=== PATIENT | female | born 1960 | race Caucasian/White ===

== ENCOUNTER 2017-05-25 13:20 | Outpatient (RCR) | payer OTHER, SELFPAY ==
--- NOTE | 2017-05-25 13:23 | RAD_ITS ---
STUDY: X-RAY CHEST REASON FOR EXAM: Female, 56 years old. Cryptogenic organizing pneumonia. TECHNIQUE: PA and lateral views of the chest. COMPARISON: Comparison is made with prior study dated May 15, 2017. FINDINGS: The lungs are clear and expanded. Scattered calcified granulomas. There is no demonstrated pleural abnormality. Normal size heart. Calcified bilateral hilar lymph nodes. Normal visualized pulmonary arteries. Normal visualized aortic arch and descending thoracic aorta. There are diffuse degenerative changes of the visualized thoracic spine. Normal visualized ribs, clavicles, and shoulders. There is no demonstrated abnormality of the visualized soft tissue structures of the upper abdomen. RAD/Chest PA and Lateral IMPRESSION: No acute abnormality is seen. Electronically Signed: Aguilar Joaquin MD at 19:35 EST Tel [phone], Service support ,
[2017-05-25 15:56] LABS: Hematocrit 43.2 % (37-47); Mean Corp Hgb Conc 30.1 g/gl (32-36); Mean Corpuscular Hgb 27.3 pg (27.0-32.0); Mean Corpuscular Volume 90.6 fL (81-99); Mean Platelet Vol. 11.1 fl (6.2-12.0); Platelet Count 307 K/mm3 (150-450); RBC Distribution Width CV 16.1 % (11.6-14.6); RBC Distribution Width SD 52.5 fl (35.1-43.9); Red Blood Count 4.77 M/mm3 (4.2-5.4); White Blood Count 9.5 K/mm3 (4.4-11.0)
[2017-05-25 16:02] LABS: Scan Indicated on CBC? Y/N NO
[2017-05-25 16:19] LABS: AST(SGOT) 12 U/L (15-37); Alanine Aminotransfer ALT/SGPT 29 U/L (12-78); Albumin, Serum 3.9 g/dL (3.4-5.0); Alkaline Phosphatase 51 U/L (45-117); Globulin 3.6 g/dL (2.2-4.2); Protein, Total 7.5 g/dL (6.4-8.2)
== END 2017-05-25 15:00 | disposition home or self-care (01) ==
LOC: MTLAB 13:20
PROVIDERS: Family Provider Internal Medicine; PCP Internal Medicine; Visit Provider Internal Medicine Pulmonary Disease
DX: J84.116 Cryptogenic organizing pneumonia (principal); M06.9 Rheumatoid arthritis, unspecified
CPT/HCPCS: 36415; 71046; 80076; 85027

== ENCOUNTER 2017-07-31 13:20 | Outpatient (RCR) | payer OTHER, SELFPAY ==
[2017-07-16 15:52] LABS: Hematocrit 41.9 % (37-47); Hemoglobin 12.9 g/dl (12.0-15.0); Mean Corp Hgb Conc 30.8 g/gl (32-36); Mean Corpuscular Hgb 27.3 pg (27.0-32.0); Mean Corpuscular Volume 88.8 fL (81-99); Mean Platelet Vol. 10.7 fl (6.2-12.0); Platelet Count 351 K/mm3 (150-450); RBC Distribution Width CV 16.8 % (11.6-14.6); Red Blood Count 4.72 M/mm3 (4.2-5.4); White Blood Count 11.5 K/mm3 (4.4-11.0)
[2017-07-16 16:02] LABS: Scan Indicated on CBC? Y/N NO
[2017-07-16 16:21] LABS: AST(SGOT) 15 U/L (15-37); Alanine Aminotransfer ALT/SGPT 33 U/L (13-56); Albumin, Serum 3.8 g/dL (3.2-5.0); Alkaline Phosphatase 59 U/L (45-117); Bilirubin, Direct 0.09 mg/dL (0.00-0.30); Globulin 3.7 g/dL (2.2-4.2); Protein, Total 7.5 g/dL (6.4-8.2)
[2017-07-31 14:28] LABS: Hematocrit 38.4 % (37-47); Hemoglobin 12.1 g/dl (12.0-15.0); Mean Corp Hgb Conc 31.5 g/gl (32-36); Mean Corpuscular Hgb 27.9 pg (27.0-32.0); Mean Corpuscular Volume 88.5 fL (81-99); Mean Platelet Vol. 10.4 fl (6.2-12.0); Platelet Count 366 K/mm3 (150-450); RBC Distribution Width CV 16.5 % (11.6-14.6); RBC Distribution Width SD 52.4 fl (35.1-43.9); Red Blood Count 4.34 M/mm3 (4.2-5.4); White Blood Count 7.6 K/mm3 (4.4-11.0)
[2017-07-31 14:29] LABS: Scan Indicated on CBC? Y/N NO
[2017-07-31 14:42] LABS: AST(SGOT) 31 U/L (15-37); Alanine Aminotransfer ALT/SGPT 38 U/L (13-56); Albumin, Serum 3.7 g/dL (3.2-5.0); Alkaline Phosphatase 53 U/L (45-117); Bilirubin, Direct 0.12 mg/dL (0.00-0.30); Globulin 3.2 g/dL (2.2-4.2); Protein, Total 6.9 g/dL (6.4-8.2)
== END 2017-07-31 14:00 | disposition home or self-care (01) ==
LOC: MTLAB 13:20
PROVIDERS: Family Provider Internal Medicine; PCP Internal Medicine; Visit Provider Internal Medicine Pulmonary Disease
DX: J84.116 Cryptogenic organizing pneumonia (principal); Z79.899 Other long term (current) drug therapy
CPT/HCPCS: 36415; 80076; 85027

== ENCOUNTER → 2017-08-10 13:55 | Outpatient (CLI) | payer OTHER, SELFPAY ==
[2017-08-10 16:04] LABS: Erythrocyte Sedimentation Rate 15 mm/hr (0-30)
[2017-08-10 16:09] LABS: Hematocrit 39.6 % (37-47); Hemoglobin 12.3 g/dl (12.0-15.0); Mean Corp Hgb Conc 31.1 g/gl (32-36); Mean Corpuscular Hgb 27.4 pg (27.0-32.0); Mean Corpuscular Volume 88.2 fL (81-99); Mean Platelet Vol. 10.4 fl (6.2-12.0); Platelet Count 472 K/mm3 (150-450); RBC Distribution Width SD 51.5 fl (35.1-43.9); Red Blood Count 4.49 M/mm3 (4.2-5.4); White Blood Count 9.1 K/mm3 (4.4-11.0)
[2017-08-10 16:49] LABS: Scan Indicated on CBC? Y/N NO
== END ==
PROVIDERS: Family Provider Internal Medicine; PCP Internal Medicine; Visit Provider Internal Medicine Pulmonary Disease
DX: J84.111 Idiopathic interstitial pneumonia, not otherwise specified (principal); Z79.899 Other long term (current) drug therapy
CPT/HCPCS: 36415; 85027; 85652

== ENCOUNTER → 2017-08-12 15:07 | Outpatient (CLI) | payer OTHER, SELFPAY ==
[2017-08-12 18:11] LABS: AST(SGOT) 22 U/L (15-37); Alanine Aminotransfer ALT/SGPT 49 U/L (13-56); Alkaline Phosphatase 53 U/L (45-117); Bilirubin, Direct 0.07 mg/dL (0.00-0.30); Globulin 3.3 g/dL (2.2-4.2); Protein, Total 7.3 g/dL (6.4-8.2)
== END ==
PROVIDERS: Family Provider Internal Medicine; PCP Internal Medicine; Visit Provider Internal Medicine Pulmonary Disease
DX: J18.9 Pneumonia, unspecified organism (principal); Z79.899 Other long term (current) drug therapy
CPT/HCPCS: 80076

== ENCOUNTER → 2017-08-26 14:00 | Outpatient (CLI) | payer OTHER, SELFPAY ==
[2017-08-26 15:26] LABS: Estradiol < 11.0 pg/mL
[2017-08-26 15:31] LABS: Progesterone Level 0.47 ng/mL (See Comment)
[2017-09-01 14:15] LABS: HPV Reflexed? NOT INDICATED
== END ==
PROVIDERS: Visit Provider Obstetrics & Gynecology
DX: Z12.4 Encounter for screening for malignant neoplasm of cervix (principal); N95.1 Menopausal and female climacteric states
CPT/HCPCS: 82670; 84144; 88175; G0145

== ENCOUNTER → 2017-08-27 15:57 | Outpatient (CLI) | payer OTHER, SELFPAY ==
--- NOTE | 2017-08-27 15:59 | CT_ITS ---
STUDY: CT TEMPORAL BONES WITHOUT CONTRAST REASON FOR EXAM: Female, 56 years old. HEARING LOSS LEFT SIDE RADIATION DOSAGE (If Supplied By Facility): CTDIvol = ( 82.28 ) mGy, DLP = ( 847.92 ) mGycm TECHNIQUE: The patient was scanned in a multi detector CT scanner. High resolution transaxial imaging was performed without the administration of intravenous contrast material. Sagittal and coronal images were reconstructed. Individualized dose optimization techniques were used for this CT. COMPARISON: None. FINDINGS: RIGHT TEMPORAL BONE Normal right external auditory canal. Normal malleus, incus and stapedius. Normal malleoincudal and incudostapedial articulations. Normal epitympanum, mesotympanum, and hypotympanum. Normal right posterior, superior and lateral semicircular canals. Normal right vestibule and cochlea. Normal tympanic segment of the facial nerve. Normal Korner's septum, tegmen tympani, arcuate eminence and aditus ad antrum. Normal right mastoid air cells. Normal right petrous apex. Normal right petrous carotid artery. Normal right jugular fossa. Normal right internal auditory canal. Normal right vestibular and cochlear aqueducts. LEFT TEMPORAL BONE Normal left external auditory canal. Normal malleus, incus and stapedius. Normal malleoincudal and incudostapedial articulations. Normal epitympanum, mesotympanum, and hypotympanum. Normal left posterior, superior and lateral semicircular canals. Normal left vestibule and cochlea. Normal tympanic segment of the facial nerve. Normal Korner's septum, tegmen tympani, arcuate eminence and aditus ad antrum. Normal left mastoid air cells. Normal left petrous apex. Normal left petrous carotid artery. Normal left jugular fossa. Normal left internal auditory canal. Normal left vestibular and cochlear aqueducts. CT/Orb Sella Post Fossa Ear w/o IMPRESSION: Normal CT examination of the bilateral temporal bones. Electronically Signed: Nir Dudley MD at 22:42 EDT , Service support ,
== END ==
PROVIDERS: Family Provider Internal Medicine; PCP Internal Medicine; Visit Provider Otolaryngology
DX: H91.92 Unspecified hearing loss, left ear (principal)
CPT/HCPCS: 70480

== ENCOUNTER → 2017-09-10 16:49 | Outpatient (CLI) | payer OTHER, SELFPAY ==
[2017-09-10 18:30] LABS: AST(SGOT) 22 U/L (15-37); Alanine Aminotransfer ALT/SGPT 49 U/L (13-56); Albumin, Serum 3.9 g/dL (3.2-5.0); Alkaline Phosphatase 58 U/L (45-117); Bilirubin, Direct 0.09 mg/dL (0.00-0.30); Globulin 3.4 g/dL (2.2-4.2); Protein, Total 7.3 g/dL (6.4-8.2)
[2017-09-10 18:31] LABS: Hematocrit 37.8 % (37-47); Hemoglobin 11.4 g/dl (12.0-15.0); Mean Corp Hgb Conc 30.2 g/gl (32-36); Mean Corpuscular Hgb 26.9 pg (27.0-32.0); Mean Corpuscular Volume 89.2 fL (81-99); Mean Platelet Vol. 10.3 fl (6.2-12.0); Platelet Count 427 K/mm3 (150-450); RBC Distribution Width CV 15.3 % (11.6-14.6); RBC Distribution Width SD 49.3 fl (35.1-43.9); Red Blood Count 4.24 M/mm3 (4.2-5.4); White Blood Count 7.3 K/mm3 (4.4-11.0)
[2017-09-10 18:52] LABS: Scan Indicated on CBC? Y/N NO
== END ==
PROVIDERS: Family Provider Internal Medicine; PCP Internal Medicine; Visit Provider Internal Medicine Pulmonary Disease
DX: J84.116 Cryptogenic organizing pneumonia (principal); Z79.899 Other long term (current) drug therapy
CPT/HCPCS: 36415; 80076; 85027

== ENCOUNTER → 2017-10-22 16:14 | Outpatient (CLI) | payer OTHER, SELFPAY ==
[2017-10-22 17:47] LABS: Hematocrit 37.7 % (37-47); Hemoglobin 11.7 g/dl (12.0-15.0); Mean Corpuscular Hgb 26.8 pg (27.0-32.0); Mean Corpuscular Volume 86.5 fL (81-99); Mean Platelet Vol. 10.2 fl (6.2-12.0); Platelet Count 441 K/mm3 (150-450); RBC Distribution Width CV 17.1 % (11.6-14.6); RBC Distribution Width SD 53.2 fl (35.1-43.9); Red Blood Count 4.36 M/mm3 (4.2-5.4)
[2017-10-22 17:49] LABS: Scan Indicated on CBC? Y/N NO
[2017-10-22 18:00] LABS: AST(SGOT) 30 U/L (15-37); Alanine Aminotransfer ALT/SGPT 50 U/L (13-56); Alkaline Phosphatase 42 U/L (45-117); Bilirubin, Direct 0.14 mg/dL (0.00-0.30); Globulin 3.6 g/dL (2.2-4.2); Protein, Total 7.6 g/dL (6.4-8.2)
== END ==
PROVIDERS: Family Provider Internal Medicine; PCP Internal Medicine; Visit Provider Internal Medicine Pulmonary Disease
DX: J84.116 Cryptogenic organizing pneumonia (principal); Z79.899 Other long term (current) drug therapy
CPT/HCPCS: 36415; 80076; 85027

== ENCOUNTER → 2017-11-03 15:25 | Outpatient (CLI) | payer OTHER, SELFPAY ==
--- NOTE | 2017-11-03 15:28 | RAD_ITS ---
STUDY: X-RAY - PELVIS REASON FOR EXAM: Female, 56 years old. Pain, fall TECHNIQUE: One view of the pelvis was obtained. COMPARISON: March 18, 2013 pelvis x-ray. FINDINGS: There is a non-specific bowel gas pattern. Normal visualized soft tissue structures. There is narrowing with cortical sclerosis and osteophyte formation of the sacroiliac joint consistent with degenerative osteoarthritic changes. Normal visualized bilateral superior and inferior pubic rami. Normal pubic symphysis. Normal ischial tuberosities. There is visualized degenerative change in the lumbar spine L4-L5 L5-S1 worse prior study. Normal visualized right femoral head. There is osteoarthritic spur formation of the right acetabular rim. Normal right hip joint. Normal visualized left femoral head. There is osteoarthritic spur formation of the left acetabular rim. Normal left hip joint. RAD/Pelvis 1 or 2 Views IMPRESSION: Mild degenerative change. No visualized evidence of an acute fracture. Advanced degenerative changes lower lumbar spine. Electronically Signed: Vale Godoy MD at 17:01 EDT Tel , Service support ,
== END ==
PROVIDERS: Family Provider Internal Medicine; PCP Internal Medicine; Visit Provider Internal Medicine
DX: M25.552 Pain in left hip (principal)
CPT/HCPCS: 72170

== ENCOUNTER → 2017-11-16 17:07 | Outpatient (CLI) | payer OTHER, SELFPAY ==
--- NOTE | 2017-11-16 17:14 | MRI_ITS ---
STUDY: MRI CERVICAL SPINE WITHOUT CONTRAST REASON FOR EXAM: Female, 56 years old. Neck and arm pain, numbness and tingling to the bilateral arms from 12 years. TECHNIQUE: Standardized fat and water weighted pulse sequences were obtained in the sagittal and axial planes. COMPARISON: None FINDINGS: Normal foramen magnum and brainstem-cervical cord junction. Normal craniovertebral junction. Normal anterior atlantoaxial articulation. Normal odontoid process. Normal cervical lordosis. Normal vertebral bodies and posterior osseous elements. C2-3: Normal endplates. Normal disc height, signal and morphology. Normal central canal and intervertebral neural foramina. C3-4: Disc desiccation and mild decreased disc space is present with bilateral facet arthropathy and uncovertebral joint arthropathy resulting in mild right foraminal narrowing. C4-5: Decreased disc space and disc space loss with uncovertebral joint arthropathy resulting in mild to moderate bilateral foraminal narrowing at this level. C5-6: Decreased disc space and disc osteophyte complex partially effacing the thecal sac with compounding uncovertebral joint arthropathy resulting in moderate to severe right and left foraminal narrowing. C6-7: Decreased disc space and disc osteophyte complex partially effacing the thecal sac with associated mild right and moderate left foraminal narrowing at this level.. C7-T1: Disc desiccation and mild decreased disc space with bilateral facet arthropathy resulting in mild bilateral foraminal narrowing. Normal cervical cord. Normal visualized soft tissue structures. MRI/Spine Cervical (Routine) IMPRESSION: 1. C5-6 disc degenerative change and uncovertebral joint arthropathy resulting in moderate to severe bilateral foraminal narrowing, clinically correlate for exiting C5/6 nerve root radiculopathy. 2. C6-7 moderate left foraminal narrowing as above. 3. C4-5 mild to moderate bilateral foraminal narrowing. Electronically Signed: Andrew Duran DO at 20:50 EDT , Service support ,
== END ==
PROVIDERS: Family Provider Internal Medicine; PCP Internal Medicine; Visit Provider Anesthesiology Pain Medicine
DX: M54.2 Cervicalgia (principal); M79.603 Pain in arm, unspecified
CPT/HCPCS: 72141

== ENCOUNTER → 2017-11-18 10:16 | Outpatient (CLI) | payer OTHER, SELFPAY ==
--- NOTE | 2017-11-18 10:19 | NM_ITS ---
CLINICAL: 56-year-old female with reported history of subclinical hyperthyroidism. I-123 THYROID UPTAKE and SCAN COMPARISON: None available FINDINGS: The patient was administered a 295 uCi I-123 capsule by mouth. The 4-hour I-123 radioactive iodine thyroidal uptake was calculated to be 9.8 % (normal 5 to 25 %). The 24-hour I-123 radioactive iodine thyroidal uptake was calculated to be 26.1 % (normal 5 to 40 %). The I-123 thyroid scan demonstrates homogeneous radiopharmaceutical concentration throughout both lobes of a U-shaped thyroid gland. There are no colloidal parenchymal hypofunctioning-cold nodules noted in either lobe of the thyroid gland. NM/Thyroid Uptake Single or Mult IMPRESSION: 1. NORMAL 4- and 24-hour I-123 radioactive iodine thyroidal uptakes. 2. 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 3. No hypofunctioning, cold nodules are identified. Electronically Signed: Asif Pagan DO at 22:10 EDT Tel , Service support ,
== END ==
PROVIDERS: Family Provider Internal Medicine; PCP Internal Medicine; Visit Provider Internal Medicine
DX: E05.90 Thyrotoxicosis, unspecified without thyrotoxic crisis or storm (principal)
CPT/HCPCS: 78012; A9516

== ENCOUNTER → 2017-12-09 16:37 | Outpatient (CLI) | payer OTHER, SELFPAY ==
[2017-12-09 17:54] LABS: Hematocrit 36.5 % (37-47); Hemoglobin 11.1 g/dl (12.0-15.0); Mean Corp Hgb Conc 30.4 g/gl (32-36); Mean Corpuscular Hgb 26.8 pg (27.0-32.0); Mean Corpuscular Volume 88.2 fL (81-99); Mean Platelet Vol. 9.7 fl (6.2-12.0); Platelet Count 402 K/mm3 (150-450); RBC Distribution Width CV 20.5 % (11.6-14.6); RBC Distribution Width SD 66.2 fl (35.1-43.9); Red Blood Count 4.14 M/mm3 (4.2-5.4)
[2017-12-09 17:55] LABS: Scan Indicated on CBC? Y/N YES- FLAGS NOTED
[2017-12-09 18:10] LABS: AST(SGOT) 25 U/L (15-37); Alanine Aminotransfer ALT/SGPT 49 U/L (13-56); Albumin, Serum 3.6 g/dL (3.2-5.0); Alkaline Phosphatase 46 U/L (45-117); Bilirubin, Direct 0.14 mg/dL (0.00-0.30); Globulin 3.4 g/dL (2.2-4.2)
[2017-12-09 18:16] LABS: Differential Comment SCANNED
== END ==
PROVIDERS: Family Provider Internal Medicine; PCP Internal Medicine; Visit Provider Internal Medicine Pulmonary Disease
DX: J84.116 Cryptogenic organizing pneumonia (principal); Z79.899 Other long term (current) drug therapy
CPT/HCPCS: 36415; 80076; 85027

== ENCOUNTER → 2017-12-10 15:27 | Outpatient (CLI) | payer OTHER, SELFPAY ==
--- NOTE | 2017-12-10 15:35 | MRI_ITS ---
STUDY: MRI RIGHT MIDFOOT REASON FOR EXAM: Female, 56 years old. History of cuneiform fracture. Pain. TECHNIQUE: Standardized fat and water weighted pulse sequences were obtained in all 3 orthogonal planes. COMPARISON: X-ray August 18, 2016 FINDINGS: Normal talonavicular articulation. Normal calcaneocuboid articulation. Normal navicular-cuneiform articulations. There is mild degenerative arthrosis of the intercuneiform articulation. There is moderate degenerative arthrosis of the first tarsometatarsal articulation. Normal Lisfranc ligament. There is moderate degenerative arthrosis of the second and third tarsometatarsal articulations. Normal cuboid fourth and cuboid fifth tarsometatarsal articulation. There is marrow edema with T2 signal hyperintensity and incomplete healing of fracture of the medial cuneiform, series 5 image 16/23. There is cystic change at the base of the first metatarsal. There is moderate heterogeneous marrow edema of the base and shaft of the first metatarsal, series 4 images 6/28 through 01/29. There is marrow edema of the base and shaft of the second metatarsal, series 4 image 13/28. There is mild marrow edema at the base and proximal shaft of the third metatarsal, series 4 image 16/28. Arthritic change at the first MTP joint. Normal tibialis anterior tendon. Normal extensor hallucis longus tendon. Normal extensor digitorum longus tendons. Normal peroneus longus tendon and distal insertion. Normal peroneus brevis tendon and distal insertion. Normal intrinsic muscles of the mid and forefoot region. Normal extensor digitorum brevis muscle. Normal subcutis adipose space. MRI/Lower Ext/No Jt/w/o IMPRESSION: There is marrow edema of the first and second and third metatarsals and the medial cuneiform with stress injuries or stress fractures related to posttraumatic arthropathy versus Charcot arthropathy. Electronically Signed: Julio Cannon MD at 21:55 EDT , Service support ,
== END ==
PROVIDERS: Family Provider Internal Medicine; PCP Internal Medicine; Visit Provider Podiatrist
DX: S93.621A Sprain of tarsometatarsal ligament of right foot, initial encounter (principal); S93.324A Dislocation of tarsometatarsal joint of right foot, initial encounter; M19.071 Primary osteoarthritis, right ankle and foot; X58.XXXA Exposure to other specified factors, initial encounter; Y93.9 Activity, unspecified; Y92.9 Unspecified place or not applicable; Y99.9 Unspecified external cause status
CPT/HCPCS: 73718

== ENCOUNTER 2018-01-19 15:10 | Emergency (ER) | payer OTHER, SELFPAY ==
[2018-01-19 15:12] VITALS: BP 129/73; PULSE 87; RESP 17; TEMP 36.8; O2SAT 97; BMI 31.6
--- NOTE | 2018-01-19 15:30 | MRI_ITS ---
STUDY: MRI LUMBAR SPINE WITHOUT CONTRAST REASON FOR EXAM: Female, 57 years old. Left leg pain TECHNIQUE: Standardized fat and water weighted pulse sequences were obtained in the sagittal and axial planes. COMPARISON: None FINDINGS: T12-L1: Normal endplates. Normal disc height, hydration and morphology. Normal bilateral facet joints. Normal central canal and bilateral lateral recesses. Normal bilateral intervertebral neural foramina. Normal lumbar lordosis. There is severe levo scoliosis. Normal conus medullaris that terminates at T12-L1 L1-2: Normal endplates. Normal disc height, hydration and minimal annular bulge. Normal bilateral facet joints. Normal central canal and bilateral lateral recesses. Normal bilateral intervertebral neural foramina. L2-3: Normal endplates. Normal disc height, hydration and minimal annular bulge with tiny left foraminal disc protrusion. Normal bilateral facet joints. Normal central canal and bilateral lateral recesses. Mild left neural foraminal encroachment. L3-4: Normal endplates. Normal disc height, desiccation and mild annular bulge. Facet arthropathy and right synovial cyst. Normal central canal . Mild left lateral recess and neuroforaminal encroachment. Moderate right lateral recess stenosis and mild neural foraminal encroachment L4-5: Normal endplates. Narrowed disc space with desiccation of the disc and moderate annular bulge. Bilateral facet arthropathy and thickening of ligamenta flava more pronounced on the left. Mild narrowing of the central canal. Moderate right lateral recess and neural foraminal stenosis with more severe narrowing on the left L5-S1: Normal endplates. Narrowed disc space with desiccation of the disc and minor annular bulge.. Bilateral facet arthropathy and thickening of ligamenta flava more pronounced on the left.. Normal central canal. Moderate right lateral recess and neuroforaminal encroachment with more severe narrowing on the left. Normal visualized sacral ala. Incidental finding of atrophic right kidney Normal visualized paraspinous soft tissue structures. MRI/Spine Lumbar (Routine) IMPRESSION: No evidence for acute fracture.. Severe levoscoliosis and degenerative changes. Multilevel spinal stenosis most severe at L4-5 and L5-S1 greater on the left Electronically Signed: Nabeel Bernabe MD at 19:57 EDT , Service support ,
--- NOTE | 2018-01-19 15:37 | ED.DCSUM_ITS ---
- ER Visit Summary Date of Service: 01/19/18 Chief Complaint: Back pain History of Present Illness: The patient is a 57 F presenting for evaluation secondary to back pain. Patient deals with chronic back pain and has been seeing a chiropractor, physical therapy, as well as a spinal surgeon. Patient reports that she was actually doing somewhat well with her rehab, but about 10 days ago she had a sudden onset of worsening neck pain. She describes this as being in her lower back with radiation down the entirety of her left leg. She reports over the last couple of days she has started to have some pain going down her right hip. Patient states that over the course of the last 5 days she has been having severe issues with urinary incontinence, and she also reports that she has developed some saddle anesthesia associated with this. She denies any fever sweats or unintended weight loss associated with this. She does endorse that she has some weakness in her left leg associated with this. Review of systems otherwise negative. Patient does also endorse that over the last 2 months she has had 2 episodes of fecal incontinence. Physical Examination: Vitals: Within normal limits General: Well-nourished well-developed no acute distress Head: Normocephalic atraumatic ENT: Moist mucous membranes Neck: Supple no JVD Cardiovascular: Heart regular rate and rhythm no murmurs Respiratory: Respirations nondistressed, lung sounds clear to auscultation bilaterally Abdominal: Soft, nontender, nondistended, normal bowel sounds, no evidence of abdominal masses or pulsatile mass Back: Normal to inspection, midline and left paraspinal tenderness to palpation , straight leg raise is positive on the left at about 15-20? Extremities: Nontender, nonedematous, 2+ radial and PT pulses bilaterally symmetric Skin: Normal color no rash Neuro: 5/5 strength hip flexion, knee flexion, 4 out of 5 knee extension, 5 out of 5 dorsiflexion, plantarflexion, EHL. Sensation intact over all dermatomes of the lower extremities bilaterally but patient reports saddle anesthesia and decreased sensation over the lateral left leg, Test Results: MRI demonstrates degenerative disease, some spinal stenosis, but no evidence of cauda equina or spinal cord impingement Emergency Department Course and Treatment: Patient presented for evaluation secondary to back pain. She gave a history of saddle anesthesia with bladder incontinence or MRI was performed. Results showed degenerative disease as noted above. At this point patient's symptoms potentially are associated with an element of radiculopathy. Patient will be placed on a Medrol pack. She was recommended to continue working with her primary care physician to establish with a spinal surgeon. Disposition: Discharge Impression: 1. Lumbar radiculopathy This note was generated with [employer] dictation software. It may contain incorrect words, spelling, and punctuation that were not noted in review of the chart prior to signing ED Disposition - Plan for ED Patient: Disposition: Home or Assisted Living Chief Complaint: Back Diagnosis: Lumbar radiculopathy, acute Instructions: ED Sciatica Prescriptions: MethylPREDNISolone DosePak [Medrol DosePak] 4 mg PO UD #1 box Referrals: Shasha Barker MD [Primary Care Provider] - As soon as possible
[2018-01-19] MEDS: Ondansetron 4 MG/2 ML Vial IV (15:49)
[2018-01-19] MEDS: Morphine 4 MG/ML Syringe IV ×2 (15:49→18:28)
[2018-01-19 17:21] VITALS: BP 142/87; PULSE 100; RESP 16; O2SAT 98
[2018-01-19 21:11] VITALS: BP 130/75; PULSE 66; RESP 17; O2SAT 99
== END 2018-01-19 21:12 | disposition home or self-care (01) ==
PROVIDERS: Emergency Provider Emergency Medicine; Family Provider Internal Medicine; PCP Internal Medicine
DX: M54.16 Radiculopathy, lumbar region (principal); E66.9 Obesity, unspecified; Z79.82 Long term (current) use of aspirin; Z79.899 Other long term (current) drug therapy
CPT/HCPCS: 72148; 96374; 96375; 96376; 99283; A4216; J2405

== ENCOUNTER → 2018-01-28 13:28 | Outpatient (CLI) | payer OTHER, SELFPAY ==
--- NOTE | 2018-01-28 13:31 | CT_ITS ---
STUDY: CT CHEST WITHOUT CONTRAST REASON FOR EXAM: Female, 57 years old. Fever and cough RADIATION DOSAGE (If Supplied By Facility): CTDIvol = ( 14.80 ) mGy, DLP = ( 462.15 ) mGycm TECHNIQUE: Transaxial imaging was performed without the administration of intravenous contrast material. Individualized dose optimization techniques were used for this CT. COMPARISON: 07/01/16 FINDINGS: Lungs are mildly hyperexpanded with chronic interstitial changes in both lung edwards. There is no superimposed infiltrate or effusion. Soft tissue windows show normal-appearing thyroid gland. There are scattered subcentimeter axillary and mediastinal lymph nodes. No pleural or pericardial effusions. Normal osseous structures. There is no demonstrated abnormality of the visualized upper abdomen. CT/Chest without Contrast IMPRESSION: Hyperexpanded lungs with chronic interstitial changes, no superimposed acute pulmonary process. Electronically Signed: Glenn Kaye MD at 18:07 EDT , Service support ,
== END ==
PROVIDERS: Family Provider Internal Medicine; PCP Internal Medicine; Referring Provider Internal Medicine Pulmonary Disease; Visit Provider Internal Medicine Pulmonary Disease
DX: J84.116 Cryptogenic organizing pneumonia (principal)
CPT/HCPCS: 71250

== ENCOUNTER → 2018-02-10 09:58 | Outpatient (CLI) | payer OTHER, SELFPAY ==
--- NOTE | 2018-02-10 10:07 | MRI_ITS ---
STUDY: MRI LEFT HIP REASON FOR EXAM: Female, 57 years old. Left-sided hip pain. Patient has inflammatory arthropathy with long-term prednisone use. TECHNIQUE: Standardized fat and water weighted pulse sequences were obtained in all 3 orthogonal planes. COMPARISON: None. FINDINGS: There is abnormal signal within the subarticular aspect of the left femoral head. This is abnormally decreased T1 signal and increased T2 signal. There is diffuse abnormal signal within the left femoral neck as well. There is left-sided hip joint space narrowing. There is some subluxation of the femoral head laterally probably related to the fusion. There is lateral osteoarthritic spurring of the acetabular rim. Normal labrum. There is circumferential osteoarthritic spurring of the femoral head. Normal femoral intratrochanteric region. There appears to be a joint effusion. There is curvilinear enhancement of the capsule of the left hip surrounding the effusion suggesting this could represent a complex collection and potentially a septic joint. Normal gluteus minimus, medius and iliopsoas tendons and distal insertions. There is no trochanteric, iliopsoas or iliopectineal bursitis. Normal superior and inferior pubic rami. Normal pubic symphysis. Normal ischial tuberosity. Appears to be some inflammation of the origins of the left sided hamstring tendons at the ischial tuberosity. This may represent a tenosynovitis. Normal visualized iliac wing, sacroiliac joint, and sacral ala. There mild degenerative changes of the right. Normal visualized soft tissue structures of the pelvis. MRI/Lower Ext Joint Only W/WO Cont IMPRESSION: 1. MR findings suggest sequela of avascular necrosis of the left femur in addition to what may represent stress reaction of the left femoral neck. 2. Left-sided hip effusion with some capsular enhancement. This maybe related to chronic inflammation but an associated infection cannot be excluded. 3. Apparent inflammation and or tenosynovitis of the hamstring tendon insertions onto the ischial tuberosity. Electronically Signed: Kadie Dailey MD at 6:06 EDT , Service support ,
== END ==
PROVIDERS: Family Provider Internal Medicine; PCP Internal Medicine
DX: M25.552 Pain in left hip (principal)
CPT/HCPCS: 73723; A9585

== ENCOUNTER → 2018-02-19 12:05 | Outpatient (CLI) | payer OTHER, SELFPAY ==
--- NOTE | 2018-02-19 | TISS_PTH ---
PATIENT: TIN BLACKWOOD LOC: [facility] U#:[id number] AGE/SX: 64/F ROOM: RE02/19/[address]: Dr. Jose L Torres DDS : 1960 BED: DIS: SPEC #: [id number] RECD: 02/19/18 15:13 STATUS: CARMINE PIPPA #: [id number] JULIO CÉSAR: 02/19/18 00:[address]: Jose L Torres DEPT: SURGICAL PATHOLOGY RECD BY: Rm Roberson ENTERED: 02/19/18 15:14 SP TYPE: Tissue Bx JOIE DR: Dr. Shasha Barker MD Tissues: TISSUE SURGICALLY REMOVED Procedures: Surgery Specimen Level IV HEADER OPERATION: Biopsy cheek/lip PRE-OP DIAGNOSIS: Probable fibroma TISSUE SUBMITTED: Biopsy cheek/lip MICROSCOPIC DIAGNOSIS Cheek/lip, biopsy: Squamous mucosa with subepithelial fibrosis, consistent with irritation fibroma. SJ:tammy 02/22/18 MICROSCOPIC DESCRIPTION Slides are reviewed. GROSS DESCRIPTION Received in fixative is one container labeled with the patient's name and designated lip. The specimen consists of a piece of swift mucosal tissue measuring 0.8 x 0.7 x 0.2 cm. The specimen is inked and submitted entirely in one cassette. It will be sectioned at the time of embedding. / SJ:rg 02/19/18 TC:5 [facility]: [id number]
== END ==
PROVIDERS: Family Provider Internal Medicine; PCP Internal Medicine; Referring Provider Dentist Oral and Maxillofacial Surgery; Visit Provider Dentist Oral and Maxillofacial Surgery
DX: L90.5 Scar conditions and fibrosis of skin (principal)
CPT/HCPCS: 88305

== ENCOUNTER 2018-04-04 18:55 | Emergency (ER) | payer MEDICARE, OTHER, SELFPAY ==
[2018-04-04] VITALS (9 sets, daily range): BP systolic 90–126; BP diastolic 57–87; PULSE 64–82; RESP 13–27; TEMP 37; O2SAT 96–100; BMI 32.7
--- NOTE | 2018-04-04 19:06 | RAD_ITS ---
STUDY: X-RAY - PELVIS AND LEFT HIP REASON FOR EXAM: Female, 57 years old. Dislocated hip. TECHNIQUE: 3 views of the pelvis and hip. COMPARISON: None. FINDINGS: There is a non-specific bowel gas pattern. Normal visualized soft tissue structures. There are multiple calcified phleboliths. Normal bilateral iliac wings, sacroiliac joints and visualized sacrum. Normal bilateral superior and inferior pubic rami. Normal pubic symphysis. Normal bilateral ischial tuberosities. Normal right hip. There is posterior dislocation of the left artificial hip. The prosthetic components are intact. There is no loosening of the prosthetic components from the underlying bone. There is no visualized osseous fracture. RAD/HIP, UNI W/ Pelvis 2-3 Views IMPRESSION: Posterior dislocation of a left artificial hip. Electronically Signed: Davi Ambrose DO at 22:07 EST Tel [phone], Service support ,
[2018-04-04] MEDS: fentaNYL 100 MCG/2 ML Ampul 50 MCG IV (19:10)
[2018-04-04] MEDS: 0.9% Normal Saline 1,000 ML 30 ML IV (19:11)
--- NOTE | 2018-04-04 19:30 | ED.VISSUMM ---
- ER Visit Summary Date of Service: 04/04/18 Chief Complaint: Left hip pain History of Present Illness: The patient is a 57 F increasing left hip pain after sitting down at the kitchen table 1830. States may be slightly bending forward. There is no falls. Status post total hip replacement March [address] Hsu at [facility] due to history of avascular necrosis secondary to rheumatoid arthritis and prednisone use. Doing well post surgery. Has not had her follow-up. On chronic [place]. Status post 12.5 mics of fentanyl IV. Last meal was yesterday evening. Physical Examination: General: Alert and oriented ?3, moderate distress HEENT: Normocephalic, atraumatic. Moist mucosa membranes Neck: supple, nontender. Cardiovascular: Regular rate and rhythm, no murmurs Respiratory: Normal breath sounds, symmetric, no distress Abdomen: Soft, nontender, nondistended Extremities: Left lower extremity: Hip in flexion position with the knee in flexion. Did not want to move secondary to pain. Pulses were intact distally. Neuro: no focal neurological deficits. Test Results: Left hip x-ray: Superior dislocation noted. Re-x-ray: Relocated Emergency Department Course and Treatment: Patient history concerns for dislocation. Treated additional fentanyl IV. Image confirms superior dislocation. Consent made for relocation. Timeout, monitor, oxygen, pulse ox, capnography. A total of 130 mg propofol was used. Hip was relocated. Post films confirms this. Knee immobilizer placed. She has a walker. She will call her orthopedist tomorrow for follow-up. Treatment Plan: [] Disposition: Discharge Impression: 1. Left hip dislocation status post relocation 2. procedure sedation This note was generated with [employer] dictation software. It may contain incorrect words, spelling, and punctuation that were not noted in review of the chart prior to signing ED Disposition - Plan for ED Patient: Disposition: Home or Assisted Living Chief Complaint: Other, Pain/Inj Diagnosis: Hip dislocation, left Instructions: ED Hip Replace Dislocation Reduc Referrals: Shasha Barker MD [Primary Care Provider] - Additional Instructions: Call Dr. Loredo tomorrow for earlier follow-up. Keep on knee immobilizer. Do not over flex at the hip.
--- NOTE | 2018-04-04 19:49 | CPS ---
pt placed on capnography with 2 l/m per dr laguerre
--- NOTE | 2018-04-04 20:10 | RAD_ITS ---
STUDY: X-RAY - LEFT HIP REASON FOR EXAM: Female, 57 years old. Post reduction TECHNIQUE: 2 views of the hip. COMPARISON: Earlier today FINDINGS: Current study shows anatomic alignment of the left hip joint after closed reduction. No evidence of hardware complication or failure or acute fracture. RAD/Hip Min 2 Views (Portable) IMPRESSION: Anatomic alignment of the replaced left hip joint. Electronically Signed: Glenn Kaye MD at 23:00 EST , Service support ,
[2018-04-04] MEDS: Propofol 200 MG/20 ML Vial IV BOLUS (20:17)
--- OUTSIDE RECORDS SUMMARY | 2018-05-29 00:55 | XMS RPT_ITS | Continuity of Care Document ---
:1960 Author Organization [facility] Address [address] [place] [address] Phone Care Team Providers Name Role Phone Mj AL, Shasha Whitten Unavailable Shahana Major Unavailable Jose L Chance Unavailable Stepan Ying Unavailable Dr. Juju Bales MD Unavailable Tita Miles Unavailable Rios Chinchilla Unavailable Dr. Cholo Taylor Unavailable Benson Delgado MD Unavailable Dr. Jose L Gutierrez Unavailable Espinoza Quan MD Unavailable Rolando Kern Unavailable Unavailable Hortensia Tinajero Unavailable JACKIE Bruno Unavailable Unavailable Unavailable Unavailable Problems Name Dates Details Abnormal fasting glucose (R73.01, 790.29) Comments: change diet and exercise 6.2 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 Abnormal finding of kidney (R39.9, 593.9) Comments: will get CT and look at old CT she had hisotyr of issue as childseen on CT scan of abdomen, deformed upper pole of right kidney 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 Acute rheumatoid arthritis (M06.9, 714.0) Comments: seen lior then now roney. MRI stillshow and think this. and side effects from MTX. on zeljanz, humira, actemra and plaquenil past. seronegative. right now on azathioprine. not helping and will see wojdeanne and see about adding rituxan but holding off because going to do stem cell 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 Anxiety (F41.9, 300.00) Comments: stable right now as can be 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 Benign essential hypertension (I10, 401.1) Comments: she did cut back norvasc 1/2 because was low here and now back up high that getting better so willincrease back to full tablet. the norvasc was started in hospital when sick 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 BMI 31.0-31.9,adult (Z68.31, V85.31) 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 Chronic interstitial cystitis (N30.10, 595.1) Comments: right now doing well. not need the emiron has some at home if need. off imipramine because ? cause lung issue. not have pain not able to hold it 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 Degeneration of intervertebral disc of lumbar region (M51.36, 722.52) Comments: better. see Basali injection not help. saw back surgeon and not surgical. still pain through lower back. told need do exercises at home. not want to do anymore injection. talk about goal is lessen pain, more functional and maintain interpersonal relationships. use Vicodin 750mg bid...not last long enough. will try butrans pain patch. 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 Degenerative joint disease of cervical spine (M47.812, 721.0) Comments: pinched nerve in left side. see basali did injection end -17. pain better but stillsome shooting pain. and not pain sarting again.. could inject again and PT. going to see spine surgeon/functional medicine at [facility] Dr Martínez 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 Deliveries (Parity) Comments: 2 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 Deliveries (Parity) Comments: 1 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 Depression (F32.9, 311) Comments: see above. 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 Encounter for general adult medical examination with abnormal findings (Z00.01, V70.0) Comments: [facility] 1-17, summer 2015 pap, mammo due. colonscopy spring 2015, tetanus 8-10. will get flu shot today. recommend prevnar at [facility] then pneumovax year later. screen Hep C 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 Fatigue (R53.83, 780.79) Comments: stable 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 Fibromyalgia (M79.7, 729.1) Comments: . on lyrica and vicodin. see Basali. at this must start exercise. 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 Frequent fasciculation of muscle of extremity (R25.3, 781.0) Comments: in upper extremities in shoulder girgle will spasm and involunatry fasculate... numb in the arm and arm weak. have extreme itching to arms. having EMG and MRI this week 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 Gastroesophageal reflux disease with esophagitis (K21.0, 530.11) Comments: PH probe high. ? getting into lungs. take omeprazole take 30 minutes before food. waiting on see GI surgeon for yeimy Dr Terence valencia. 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 Hyperlipidemia, mild (E78.5, 272.4) Comments: reveiwed with patient recent tests [facility] good ldl and hdl composition cannot take statin. talk about zetia because an absorber. willhold off with all the meds and bowel issues 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 Hypertension (I10, 401.9) 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 Immunocompromised (D84.9, 279.3) Comments: on imuran 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 Impaired fasting glucose (R73.01, 790.21) Comments: DM in her family only hga1c 5.8 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 Interstitial lung disease (J84.9, 515) Comments: right now good wtih azathioprine PFTS better. planning on stem cellseen Dr. 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 there were some areas of bronchial metaplasia suggestive of airway injury. he rec. continue prednisone to 15mg qd, and rec. using alternate medication other than methotrexate, in ca se this would be the cause. [facility] 2-18 ? aspiration ? imipramine 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 Leg pain, bilateral (M79.604, 729.5) 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 MTHFR mutation (E72.12, 270.4) 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 Nail fungus (B35.1, 110.1) 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 Pain in left hip (M25.552, 719.45) Comments: at piroformis and ishcchial tuberosity and fell. rest nsaids 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 Postmenopausal (Renamed from Postmenopausal status) (Z78.0, V49.81) 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 Pregnancies () Comments: 3 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 Pulmonary hypertension (I27.20, 416.8) Comments: 52 on last echo. related to ILD. 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 Subclinical hyperthyroidism (E05.90, 242.90) Comments: nbot see on drugs that coudl cause unless prednisone ? subacute thyriodits ? autoimmune check uptake scan 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 Tobacco abuse (Z72.0, 305.1) 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 Urinary incontinence in female (R32, 788.30) 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 Medications Name Dates Details Ambien CR 12.5 MG Oral Tablet Extended Release 1 Tablet ER at night prn for 0 days Quantity: 30 {Tablet} Refills: 4 Ordered:03-Nov-2017 Shasha Barker MD, MD, Dana M Start : 03-Nov-2017 Active Comments:[id number] called to Dannielle -er AmLODIPine Besylate 5 MG Oral Tablet 1 (one) Tablet qd for 0 days Quantity: 90 {Tablet} Refills: 3 Ordered:19-Oct-2017 Shasha Barker MD, MD, Dana M Start : 19-Oct-2017 Active Butrans 15 MCG/HR Transdermal Patch Weekly 1 (one) Patch q weekly for 0 days Quantity: 10 {Patch} Refills: 0 Ordered:20-Oct-2017 Shasha Barker MD, MD, Dana M Start : 20-Oct-2017 Active Cymbalta 60 MG Oral Capsule Delayed Release Particles [address] Part at night for 0 days Quantity: 30 {Capsule} Refills: 6 Ordered:07-Apr-2017 Shasha Barker MD, MD, Dana M Start : 07-Apr-2017 Active Fosamax 70 MG Oral Tablet once weekly (70 MG) Active Hydrocodone-Acetaminophen 7.5-325 MG Oral Tablet 1 (one) Tablet Tablet qid for 0 days Quantity: 60 {Tablet} Refills: 0 Ordered:27-Jan-2017 Shasha Barker MD, MD, Dana M Start : 27-Jan-2017 Active Imuran 50 MG Oral Tablet 3 (three) Tablet qd for 0 days Quantity: 90 {Tablet} Refills: 0 Ordered:05-Jan-2018 Shasha Barker MD, MD, Dana M Start : 05-Jan-2018 Active Losartan Potassium 100 MG Oral Tablet 1 Tablet qd for 0 days Quantity: 90 {Tablet} Refills: 3 Ordered:29-Dec-2017 Shasha Barker MD, MD, Dana M Start : 29-Dec-2017 Active Lyrica 75 MG Oral Capsule 2 (two) Capsule qhs for 0 days Quantity: 60 {Capsule} Refills: 3 Ordered:02-Mar-2018 Shasha Barker MD, MD, Dana M Start : 02-Mar-2018 Active Comments:sixty 03-02-18 called to [facility] reviewed Myrbetriq 25 MG Oral Tablet Extended Release 24 Hour 1 (one) Tablet 1-2 a day to help with incontinence prn for 0 days Quantity: 30 {Tablet} Refills: 0 Ordered:05-Jan-2018 Shasha Barker MD, MD, Dana M Start : 05-Jan-2018 Active Omeprazole 40 MG Oral Capsule Delayed Release 1 (one) Capsule bid for 0 days Quantity: 60 {Capsule} Refills: 4 Ordered:14-Jul-2017 Shasha Barker MD, MD, Dana M Start : 14-Jul-2017 Active Comments:take 30 minutes before meals PredniSONE 10 MG Oral Tablet 1 (one) Tablet qd for 0 days Quantity: 60 {Tablet} Refills: 0 Ordered:05-Jan-2018 Fast DO, Philomena A Start : 05-Jan-2018 Active ProAir HFA 108 (90 Base) MCG/ACT Inhalation Aerosol Solution 2 (two) Puff Puff tid prn for 0 days Quantity: 1 {Inhaler} Refills: 0 Ordered:01-Aug-2016 Shasha Barker MD, MD, Dana M Start : 01-Aug-2016 Active Progesterone 1000 MG/60GM External Cream daily per Shriner (1000 MG/60GM) Active Sulfamethoxazole-Trimethoprim 800-160 MG Oral Tablet 1 (one) Tablet Thursday and Thursday as directed for 0 days Quantity: 14 {Tablet} Refills: 0 Ordered:14-Jul-2017 Shasha Barker MD, MD, Dana M Start : 14-Jul-2017 Active Comments:07-14-2017 MWF while at max dose supression Ultravate 0.05 % External Cream uad Application apply to affected nail bed bid for 2 weeks for 0 days Quantity: 30 {Gram} Refills: 0 Ordered:06-Jan-2018 JACKIE Bruno Start : 06-Jan-2018 Active Vitamin B Complex Oral Tablet 1 (one) Tablet Tablet daily for 0 days Quantity: 30 {Tablet} Refills: 0 Ordered:27-Jan-2017 JACKIE Bruno Start : 16-Oct-2016 Active Vitamin D3 5000 UNIT Oral Tablet 1 (one) Tablet qd for 0 days Quantity: 30 {Tablet} Refills: 0 Ordered:18-Aug-2016 Mj AL, Shasha Hinton MD Start : 18-Aug-2016 Active Wellbutrin XL 300 MG Oral Tablet Extended Release 24 Hour 1 (one) Tablet in am for 0 days Quantity: 90 {Tablet} Refills: 3 Ordered:18-Nov-2017 Jeannette Bradshaw DO Start : 18-Nov-2017 Active Albuterol Sulfate (2.5 MG/3ML) 0.083% Inhalation Nebulization Solution 1 (one) ampule ampule via neubulizer q 6 hours while awake for 0 days Quantity: 1 {Box} Refills: 3 Ordered:20-Oct-2017 JACKIE Bruno Start : 22-May-2017 End : 20-Oct-2017 Inactive ALPRAZolam 0.5 MG Oral Tablet uad Tablet Tablet 1 or 2 prior to flight departure and q 6 hours prn for 0 days Quantity: 10 {Tablet} Refills: 0 Ordered:18-Aug-2017 JACKIE Bruno Start : 09-Jun-2017 End : 18-Aug-2017 Inactive Comments:06-09-17-er called to [facility] Arava 20 MG Oral Tablet 1 (one) Tablet Tablet qd for 0 days Quantity: 30 {Tablet} Refills: 0 Ordered:06-May-2016 Davin Blanton Start : 08-Jun-2015 End : 06-May-2016 Inactive Comments:Dr. Tinajero Aspirin Adult Low Dose 81 MG Oral Tablet Delayed Release 1 (one) Tablet Tablet qd for 0 days Quantity: 30 {Tablet} Refills: 0 Ordered:18-Aug-2017 JACKIE Bruno Start : 26-Jan-2017 End : 18-Aug-2017 Inactive BACLOFEN, 20MG (Oral Tablet) tid prn (20 MG) Inactive BACTRIM DS, 800-160MG (Oral Tablet) 1 daily for 0 days Refills: 0 Ordered:25-Feb-2010 JACKIE Bruno End : 25-Feb-2010 Inactive CELEBREX, 200MG (Oral Capsule) 1 Capsule qd for 0 days Quantity: 30 {Capsule} Refills: 3 Ordered:11-Jan-2009 JACKIE Bruno Start : 11-Jan-2009 End : 24-Apr-2009 Inactive CellCept 500 MG Oral Tablet 2 (two) Tablet bid for 0 days Quantity: 120 {Tablet} Refills: 0 Ordered:14-Jul-2017 Mj AL, Shasha Garcia MD, Shasha Whitten Start : 14-Jul-2017 End : 14-Jul-2017 Inactive Comments: d/c per [facility] had fatgiue and GI upset CIPRO, 500MG (Oral Tablet) 1 Tablet bid for 0 days Quantity: 20 {Tablet} Refills: 0 Ordered:03-Apr-2010 Riana Villalobos LPN Start : 15-Mar-2010 End : 03-Apr-2010 Inactive colostrum 1 QD Inactive Diflucan 150 MG Oral Tablet uad Tablet one today and may repeat in 2 days if not gone for 0 days Quantity: 2 {Tablet} Refills: 0 Ordered:18-Aug-2016 JACKIE Bruno Start : 15-Aug-2016 End : 18-Aug-2016 Inactive D-RIBOSE (Powder) uad prn for 0 days Refills: 0 Ordered:29-Jan-2010 Jayna Collins LPN Comments:1 teaspoon bid (1 serving is 5 grams) Elmiron 100 MG Oral Capsule 1 (one) Capsule Capsule tid for 0 days Quantity: 90 {Capsule} Refills: 3 Ordered:20-Oct-2017 JACKIE Bruno Start : 14-Jul-2017 End : 20-Oct-2017 Inactive FentaNYL 25 MCG/HR Transdermal Patch 72 Hour q 3 days (25 MCG/HR) Inactive FISH OIL, 500MG (Oral Capsule) 1 (one) Capsule daily for 30 days Quantity: 30 {Capsule} Refills: 0 Ordered:06-Apr-2015 Ophelia Boogie CNP Start : 27-Feb-2015 End : 29-Mar-2015 Inactive Folic Acid 1 MG Oral Tablet 1 (one) Tablet 5 tablets a day for 30 days Refills: 11 Ordered:26-Jan-2017 JACKIE Bruno Start : 16-Oct-2016 End : 26-Jan-2017 Inactive Comments:MTHFR mutation FOLIC ACID, 1MG (Oral Tablet) qd (1 MG) Inactive Comments:Lior GABAPENTIN, 100MG (Oral Tablet) 1 (one) Tablet TID for 0 days Quantity: 90 {Tablet} Refills: 0 Ordered:27-Oct-2007 JACKIE Bruno Start : 27-Oct-2007 End : 14-Apr-2008 Inactive Hysingla ER 40 MG Oral Tablet ER 24 Hour Abuse-Deterrent 1 (one) Tablet bid for 0 days Quantity: 60 {Tablet} Refills: 0 Ordered:27-Jan-2017 JACKIE Bruno Start : 26-Jan-2017 End : 27-Jan-2017 Inactive IBUPROFEN, 400MG (Oral Tablet) 2 (two) Tablet q 8 hours as needed for 30 days Quantity: 30 {Tablet} Refills: 0 Ordered:15-Mar-2015 JACKIE Bruno Start : 27-Feb-2015 End : 15-Mar-2015 Inactive Comments:Medication taken as needed. Imipramine HCl 25 MG Oral Tablet 1 (one) Tablet qhs for 0 days Quantity: 90 {Tablet} Refills: 3 Ordered:14-Jul-2017 Shasha Barker MD, MD, Dana M Start : 14-Jul-2017 End : 14-Jul-2017 Inactive Comments: d/c per [facility] LEUCOVORIN CALCIUM, 15MG (Oral Tablet) 1 (one) Tablet once a week for 30 days Quantity: 30 {Tablet} Refills: 0 Ordered:21-Aug-2014 Ophelia Boogie CNP Start : 19-Jul-2014 End : 18-Aug-2014 Inactive Levaquin 500 MG Oral Tablet 1 (one) Tablet daily for 14 days Quantity: 14 {Tablet} Refills: 0 Ordered:12-May-2017 Shasha Barker MD, MD, Dana M Start : 12-May-2017 End : 26-May-2017 Inactive Losartan Potassium-HCTZ 50-12.5 MG Oral Tablet 1 Tablet daily for 0 days Quantity: 30 {Tablet} Refills: 3 Ordered:18-Aug-2016 JACKIE Bruno Start : 20-May-2016 End : 18-Aug-2016 Inactive MACROBID, 100MG (Oral Capsule) 1 Capsule bid for 0 days Quantity: 20 {Capsule} Refills: 0 Ordered:26-Aug-2010 JACKIE Bruno Start : 27-Jun-2010 End : 26-Aug-2010 Inactive MAGNESIUM OXIDE, 400MG (Oral Capsule) 2 qd (400 MG) Inactive MYCELEX, 10MG (Mouth/Throat Rio) 1 (one) Rio 5x daily for 10 days Quantity: 50 {Rio} Refills: 0 Ordered:25-Feb-2010 Chuyita ROSSOphelia Start : 29-Jan-2010 End : 08-Feb-2010 Inactive [place] 7.5-325 MG Oral Tablet 1 (one) Tablet two times daily for 0 days Quantity: 60 {Tablet} Refills: 0 Ordered:26-Jan-2017 JACKIE Bruno Start : 26-Jan-2017 End : 26-Jan-2017 Inactive [place] 7.5-325 MG Oral Tablet tid prn (7.5-325 MG) Inactive NUCYNTA, 100MG (Oral Tablet) daily (100 MG) Inactive NUCYNTA, 100MG (Oral Tablet) 1 (one) Tablet qd for 10 days Quantity: 10 {Tablet} Refills: 0 Ordered:12-May-2011 JACKIE Bruno Start : 09-May-2011 End : 12-May-2011 Inactive Comments:ten PERCOCET, 5-325MG (Oral Tablet) 1 tid/prn (5-325 MG) Inactive Plaquenil 200 MG Oral Tablet 1 bid (200 MG) Inactive PROMETRIUM, 100MG (Oral Capsule) 3 (three) Capsule Q HS for 30 days Quantity: 90 {Capsule} Refills: 0 Ordered:06-Apr-2015 Chuyita ROSSOphelia Start : 27-Feb-2015 End : 29-Mar-2015 Inactive RELAFEN, 500MG (Oral Tablet) 2 Tablet QD for 0 days Quantity: 30 {Tablet} Refills: 1 Ordered:10-Aug-2006 JACKIE Bruno Start : 10-Aug-2006 End : 14-Apr-2008 Inactive Sulfamethoxazole-Trimethoprim 800-160 MG Oral Tablet 1 (one) Tablet bid for 0 days Quantity: 14 {Tablet} Refills: 0 Ordered:12-Mar-2017 JACKIE Bruno Start : 27-Jan-2017 End : 12-Mar-2017 Inactive VICODIN ES, 7.5-300MG (Oral Tablet) 1 (one) Tablet two times daily for 360 days Quantity: 360 {Tablet} Refills: 0 Ordered:05-Mar-2015 Slarb [employer]CRA[employer] ENGINE[employer], Ambreen Start : 07-Sep-2014 End : 02-Sep-2015 Inactive Xeljanz XR 11 MG Oral Tablet Extended Release 24 Hour 1 (one) Tablet ER 24HR Tablet ER 24HR in am for 0 days Quantity: 30 {Tablet} Refills: 0 Ordered:12-May-2017 JACKIE Bruno Start : 04-Sep-2016 End : 12-May-2017 Inactive zeljanz 11mg 1qd Inactive Comments:RA medication, monitored by Dr. Anatoliy REARDON, 150-12.5MG (Oral Tablet) 1 Tablet qd for 0 days Quantity: 30 {Tablet} Refills: 0 Ordered:25-Apr-2011 Shasha Barker MD, MD, Dana M Start : 25-Apr-2011 End : 25-Apr-2011 Discontinued AzaTHIOprine 50 MG Oral Tablet 1 (one) Tablet tid for 0 days Quantity: 90 {Tablet} Refills: 0 Ordered:05-Jan-2018 Shasha Barker MD, MD, Dana M Start : 05-Jan-2018 End : 05-Jan-2018 Discontinued CARAFATE, 1GM (Oral Tablet) 1 Tablet four times a day for 0 days Quantity: 120 {Tablet} Refills: 0 Ordered:26-Aug-2010 Shasha Barker MD, MD, Dana M Start : 26-Aug-2010 End : 25-Apr-2011 Discontinued KETOPROFEN, 75MG (Oral Capsule) 1 Capsule as needed for 0 days Quantity: 60 {Capsule} Refills: 0 Ordered:17-Jul-2010 Shasha Barker MD, MD, Dana M Start : 17-Jul-2010 End : 25-Apr-2011 Discontinued Comments:Medication taken as needed. LEUCOVORIN CALCIUM, 10MG (Oral Tablet) 3 (three) Tablet once a week for 30 days Quantity: 30 {Tablet} Refills: 3 Ordered:27-Feb-2015 Slarb [employer]CRA[employer], Ambreen Start : 07-Sep-2014 End : 27-Feb-2015 Discontinued LODINE XL, 400MG (Oral Tablet Extended Release 24 Hour) 1 two times daily for 0 days Refills: 0 Ordered:03-Apr-2010 Long AIRCRAFT ENGINEERRiana End : 03-Apr-2010 Discontinued Comments:This order discontinued per [facility]. MELOXICAM, 7.5MG (Oral Tablet) qd prn (7.5 MG) End : 19-Jul-2014 Discontinued Comments:Dr. Tinajero METHOTREXATE, 2.5MG (Oral Tablet) 6 tabs once a week (2.5 MG) End : 27-Feb-2015 Discontinued Comments:Lior Nucynta ER 50mg qd End : 21-Oct-2011 Discontinued Comments:Dr. Callahan/Chrisi PLAQUENIL, 200MG (Oral Tablet) 1 (one) Tablet two times daily for 30 days Quantity: 30 {Tablet} Refills: 0 Ordered:27-Feb-2015 Slarb Gomez JOSHIa Start : 05-Feb-2015 End : 27-Feb-2015 Discontinued PredniSONE 10 MG Oral Tablet 1 1/2 Tablet daily for 0 days Quantity: 60 {Tablet} Refills: 2 Ordered:06-May-2016 Shasha Barker MD, MD, Dana M Start : 06-May-2016 End : 06-May-2016 Discontinued VICODIN ES, 7.5-750MG (Oral Tablet) bid (7.5-750 MG) End : 19-Jul-2014 Discontinued VICODIN, 5-500MG (Oral Tablet) 1 Tablet bid for 0 days Quantity: 60 {Tablet} Refills: 0 Ordered:26-Aug-2010 Shasha Barker MD, MD, Dana M Start : 26-Aug-2010 End : 25-Apr-2011 Discontinued VOLTAREN, 50MG (Oral Tablet Delayed Release) 1 bid for 0 days Refills: 0 Ordered:29-Jan-2010 DennisBriana larsen LPN End : 29-Jan-2010 Discontinued Comments:This order discontinued per [facility]. Wellbutrin SR 150 MG Oral Tablet Extended Release 12 Hour 1 (one) Tablet ER 12HR daily for 0 days Quantity: 90 {Tablet} Refills: 3 Ordered:06-May-2016 Shasha Barker MD, MD, Dana M Start : 06-May-2016 End : 06-May-2016 Discontinued Allergies and Adverse Reactions Name Dates Details ampicillin (Allergy) 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 Comments: as child and not remember Apiillcillijn (Allergy) 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 Clindamycin HCl *CHEMICALS* (Allergy) 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 Comments: GI side effects Past Medical History Name Dates Details Abnormal blood chemistry (R79.9, 790.6) Comments: tsh off will call wojno and get leaves will follow Status: Resolved as of 15-May-2017 Abnormal finding on radiology exam (R93.8, 793.99) Comments: remains on levaquin and prednisone seeing Dr. Deangelo vallecillo in [place] next week. Status: Inactive as of 04-Sep-2016 Abnormal RBC (R71.8, 790.09) Status: Resolved as of 16-Nov-2017 Acute foot pain, right (M79.671, 729.5) Comments: still pain at fracture and now whole foot up leg because way walk on it. Dr. hall seeing. was to be on boot for 4 weeks has follow up in 2 weeks with her i will callher and see if needs to be nonweigh tbearing because on high dose prednisonefracture 08-13-16 Status: Resolved as of 05-Jan-2018 Backache (M54.9, 724.5) Status: Inactive as of 11-Oct-2012 BMI 28.0-28.9,adult (Z68.28, V85.24) Comments: 28.32 Status: Resolved as of 16-Nov-2017 BMI 29.0-29.9,adult (Z68.29, V85.25) Status: Resolved as of 16-Nov-2017 BMI 30.0-30.9,adult (Z68.30, V85.30) Status: Resolved as of 16-Nov-2017 Bronchitis, acute (J20.9, 466.0) Status: Inactive as of 15-Mar-2015 Candidiasis, mouth (B37.0, 112.0) Status: Inactive as of 11-Oct-2012 Candidiasis, mouth (B37.0, 112.0) Status: Inactive as of 15-Mar-2015 Carpal tunnel syndrome, unspecified laterality (G56.00, 354.0) Status: Inactive as of 11-Oct-2012 Cerumen debris on tympanic membrane, left (H61.22, 380.4) Status: Resolved as of 19-Jan-2018 Chest pain (R07.9, 786.50) Comments: ddimer good cardiac enzymes good. good stress 2-16 good. still has it. talk to her about risk false negative test. talk about seeing cardio. for cath. will get CT scan tomorrow called [facility] to assure ad d pulm angio.seems to occur intermittently, since her issue/surgery in February, notice is more aware of heartbeat at times, silvia. during activity, comes and goes, states in the epigastrium area, notice h eartbeat in her ears too. denies shortness of breath, no radiation of the chest pain Status: Resolved as of 06-May-2016 COPD with acute exacerbation (Renamed from Acute exacerbation of chronic obstructive airways disease) (J44.1, 491.21) Comments: what have now different then lung issue flare seem related to the infeciton. on 30 mg of prednisone alot of manuel boogie will use inhaler not like aerosolo at home. Status: Resolved as of 19-Jan-2018 Cough (R05, 786.2) Status: Inactive as of 15-Mar-2015 Current nonsmoker (Renamed from Current non-smoker) (Z78.9, V49.89) Status: Inactive as of 16-Oct-2016 Cyst of ovary, unspecified laterality (N83.209, 620.2) Status: Inactive as of 11-Oct-2012 Diarrhea (R19.7, 787.91) Status: Inactive as of 11-Oct-2012 Dysuria (R30.0, 788.1) Status: Resolved as of 07-Apr-2017 Elevated WBC count (D72.829, 288.60) Comments: resolved Status: Resolved as of 04-Sep-2016 Encounter for screening mammogram for breast cancer (Renamed from Encounter for screening mammogram for malignant neoplasm of breast) (Z12.31, V76.12) Status: Inactive as of 20-May-2016 Epigastric pain (R10.13, 789.06) Comments: the PPI helps still need some ibu so will stay on. Status: Inactive as of 15-Mar-2015 Fracture of foot (S92.909A, 825.20) Status: Resolved as of 16-Nov-2017 Ganglion cyst (M67.40, 727.43) Comments: on right hand over knuckle enlarged and restricting movement. Status: Inactive as of 15-Mar-2015 Headache (R51, 784.0) Status: Inactive as of 11-Oct-2012 Hematuria (R31.9, 599.7) Status: Inactive as of 11-Oct-2012 History of tobacco abuse (Z87.891, V15.82) Status: Inactive as of 04-Sep-2016 Hx of Chest Pain Status: Inactive as of 11-Oct-2012 Hyperkalemia (E87.5, 276.7) Comments: better now high normal gave handout on those things to avoid. 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 send to Dr. sim let him make decision. needs to get her Yeimy so can push NSAIDS and we will see what the immuran takes away. onprednisone right now but want to wean. Status: Resolved as of 20-Oct-2017 Knee pain (M25.569, 719.46) Comments: nsaids, not want injection Status: Inactive as of 15-Mar-2015 Liver lesion, right lobe (K76.89, 573.8) Comments: 1.[address] chest in [facility] with radiology at [facility] can they compare for me with her old CT studies that show liver. 06-20 had hemangioma so ? same size. radiology look through and all the same Status: Resolved as of 18-Aug-2017 Low back pain (M54.5, 724.2) Comments: injection in back Dr. taylor few weeks ago last 1 week Status: Inactive as of 20-May-2016 Nausea and vomiting (R11.2, 787.01) Status: Inactive as of 11-Oct-2012 Neck pain (M54.2, 723.1) Status: Inactive as of 12-Mar-2012 Need for prophylactic vaccination and inoculation against influenza (Renamed from Need for immunization against influenza) (Z23, V04.81) Comments: Lot #:[id number] date:9-20-14Olrdnq given:0.5mlRoute: IMSite given:L DltdGiven by: Rosita MARMOLEJO and ABN signed [employer] Status: Inactive as of 20-May-2016 Obesity, unspecified (E66.9, 278.00) Comments: talk about 21 day and clean eating. gave info on this. Status: Resolved as of 06-May-2016 Pain and swelling of toe of left foot (M79.675, 729.5) Comments: crush toe 5th one 7-16 and stillpainful. post op shoe for few weeks. xray Status: Inactive as of 04-Sep-2016 Palpitation (R00.2, 785.1) Comments: thik related to prednisone no CP or SOB or lighthead. does not feel fast just pound harder consider holeter see what increae cynbalta does Status: Resolved as of 16-Nov-2017 Paresthesia (R20.2, 782.0) Status: Inactive as of 11-Oct-2012 Pelvic pain in female (R10.2, 625.9) Comments: she does relate to when have menses. us reveiwed with patient recent tests and there is cystic area inside ?olyp ? adenomyosis. ? endometriosis to core dipper Status: Inactive as of 15-Mar-2015 Perimenopausal menorrhagia (N92.4, 627.0) Comments: pt has uterine polyp and was D and C planned. reviewed with patient labs good Status: Resolved as of 06-May-2016 Pneumonia, bacterial (J15.9, 482.9) Comments: xrays always abnormal. better with atb. still on oxygen. on oral ATB now. Status: Resolved as of 16-Nov-2017 Pre-operative examination (Z01.818, V72.84) Comments: low risk, assure electrolytes okay with water pill. BP good no cardiac signs and symptoms. must get right lower tooth taken care of before surgery. Status: Inactive as of 11-Oct-2012 Sciatica, left side (M54.32, 724.3) Status: Resolved as of 16-Nov-2017 Syncope and collapse (R55, 780.2) Comments: better now Status: Resolved as of 04-Sep-2016 Unspecified Diagnosis Status: Inactive as of 15-Mar-2015 Unspecified Diagnosis Status: Inactive as of 20-May-2016 Unspecified visual disturbance (H53.9, 368.9) Status: Inactive as of 12-Mar-2012 UTI symptoms (R39.9, 788.99) Status: Inactive as of 15-Mar-2015 Vaginal discharge (N89.8, 623.5) Status: Inactive as of 11-Oct-2012 Vertigo (R42, 780.4) Status: Inactive as of 15-Mar-2015 WWV V73.21 (Renamed from [employer]) Comments: scope at 50 recommend but refusing must do right now refuse mammo and pap. wrote for mammo just in case will get Status: Inactive as of 15-Mar-2015 Yeast infection (B37.9, 112.9) Status: Inactive as of 15-Mar-2015 Procedures Procedure Dates Details Carpal Tunnel b/l wrist Completed Colonoscopy, Screening Completed Comments: 01-01-[address] Gutierrez Dilation and Curettage of Uterus Completed Nov-2015 kidney sx as infant Completed partial knee replacement -- Left Leg Completed .2010 right lobe resection-lung Completed Comments: February 2015 Date Value Details 10-Feb-2018 Lower Ext Joint Only W/WO Cont Result: Comments: See Note; NOTES: [facility] Imaging Services [address] [place] [address] Lower Ext Joint Only W/WO Cont MR#: [id number] Acct: [id number] Name: TIN BLACKWOOD Rep # : [id number] : 1960 F 57 From: Kadie Dailey MD PCP: Shasha Barker MD Status: REG CLI Study: Lower Ext Joint Only W/WO Cont Date of Exam: 02/10/18 Exam# [id number] Ordering Dr: CARLOS SHELBY M.D. STUDY: MRI LEFT HIP REASON FOR EXAM: Female, 57 years old. Left-sided hip pain. Patient has inflammatory arthropathy with long-term prednisone use. TECHNIQUE: Standardized fat and water weighted pu lse sequences were obtained in all 3 orthogonal planes. COMPARISON: None. FINDINGS: There is abnormal signal within the subarticular aspect of the left femoral head . This is abnormally decreased T1 signal and increased T2 signal. There is diffuse abnormal signal within the left femoral neck as well. There is left-sided hip joint space narrowing. There is some sub luxation of the femoral head laterally probably related to the fusion. There is lateral osteoarthritic spurring of the acetabular rim. Normal labrum. There is circumferential osteoarthritic spurring of the femoral head. Normal femoral intratrochanteric region. There appears to be a joint effusion. There is curvilinear enhancement of the capsule of the left hip surrounding the effusion suggesting this could represent a complex collection and potentially a septic joint. Normal gluteus minimus, medius and iliopsoas tendons and distal insertions. There is no trochanteric, iliopsoas or iliopectineal bu rsitis. Normal superior and inferior pubic rami. Normal pubic symphysis. Normal ischial tuberosity. Appears to be some inflammation of the origins of the left sided hamstring tendons at the ischial tub erosity. This may represent a tenosynovitis. Normal visualized iliac wing, sacroiliac joint, and sacral ala. There mild degenerative changes of the right. Normal visualized soft tissue structures of t he pelvis. MRI/Lower Ext Joint Only W/WO Cont IMPRESSION: 1. 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 2. Left-sided hip effusion with some capsular enhancement. This maybe related to chronic inflammation but an associated infection cannot be ex cluded. 3. Apparent inflammation and or tenosynovitis of the hamstring tendon insertions onto the ischial tuberosity. Electronically Signed: Kadie Dailey MD at 6:06 EDT , S raina support , CC: CARLOS SHELBY M.D.; Shasha Barker MD Central Supply Manager: Signed 28-Jan-2018 Chest without Contrast Result: Comments: See Note; NOTES: [facility] Imaging Services [address] [place] [address] Chest without Contrast MR#: [id number] Acct: [id number] Name: TIN BLACKWOOD Rep #: [id number] : 1960 F 57 From: Vazquez Kaye MD PCP: Shasha Barker MD Status: REG CLI Study: Chest without Contrast Date of Exam: 01/28/18 Exam# [id number] Ordering Dr: Pelon Chatterjee MD STUDY: CT CHES T WITHOUT CONTRAST REASON FOR EXAM: Female, 57 years old. Fever and cough RADIATION DOSAGE (If Supplied By Facility): CTDIvol = ( 14.80 ) mGy, DLP = ( 462.15 ) mGycm TECHNIQUE: Transaxial imaging was performed without the administration of intravenous contrast material. Individualized dose optimization techniques were used for this CT. COMPARISON: 07/01/16 FIND INGS: Lungs are mildly hyperexpanded with chronic interstitial changes in both lung edwards. There is no superimposed infiltrate or effusion. Soft tissue windows show normal-appearing thyroid gland. The re are scattered subcentimeter axillary and mediastinal lymph nodes. No pleural or pericardial effusions. Normal osseous structures. There is no demonstrated abnormality of the visualized upper abdome n. CT/Chest without Contrast IMPRESSION: Hyperexpanded lungs with chronic interstitial changes, no superimposed acute pulmonary process. Electro nically Signed: Glenn Kaye MD at 18:07 EDT , Service support , CC: Shasha Barker MD; Pelon Chatterjee MD Central Supply Manager: Signed 20-Jan-2018 Emergency Department Summary Result: Comments: See Note; NOTES: [facility] Medical Records Department [address] [place] [address] Emergency Department Summary 01/19/18 1534 MR#: [id number] Acct: [id number] Name: TIN BLACKWOOD Rep #: [id number] : 1960 57 From: Rolando Mc MD PCP: Shasha Barker MD Status: DEP ER - ER Visit Summary Date of Service: 01/19/18 Chief Complaint: Back pain History of Pre sent Illness: The patient is a 57 F presenting for evaluation secondary to back pain. Patient deals with chronic back pain and has been seeing a chiropractor, physical therapy, as well as a spinal surge on. Patient reports that she was actually doing somewhat well with her rehab, but about 10 days ago she had a sudden onset of worsening neck pain. She describes this as being in her lower back with radi ation down the entirety of her left leg. She reports over the last couple of days she has started to have some pain going down her right hip. Patient states that over the course of the last 5 days she h as been having severe issues with urinary incontinence, and she also reports that she has developed some saddle anesthesia associated with this. She denies any fever sweats or unintended weight loss ass ociated with this. She does endorse that she has some weakness in her left leg associated with this. Review of systems otherwise negative. Patient does also endorse that over the last 2 months she has h ad 2 episodes of fecal incontinence. Physical Examination: Vitals: Within normal limits General: Well-nourished well-developed no acute distress Head: Normocephalic atraumatic ENT: Moist mucous membran es Neck: Supple no JVD Cardiovascular: Heart regular rate and rhythm no murmurs Respiratory: Respirations nondistressed, lung sounds clear to auscultation bilaterally Abdominal: Soft, nontender, nondist ended, normal bowel sounds, no evidence of abdominal masses or pulsatile mass Back: Normal to inspection, midline and left paraspinal tenderness to palpation, straight leg raise is positive on the left at about 15-20 Extremities: Nontender, nonedematous, 2+ radial and PT pulses bilaterally symmetric Skin: Normal color no rash Neuro: 5/5 strength hip flexion, knee flexion, 4 out of 5 knee extension, 5 out of 5 dorsiflexion, plantarflexion, EHL. Sensation intact over all dermatomes of the lower extremities bilaterally but patient reports saddle anesthesia and decreased sensation over the lateral left leg, Test Results: MRI demonstrates degenerative disease, some spinal stenosis, but no evidence of cauda equina or spinal cord impingement Emergency Department Course and Treatment: Patient presented for evaluation secondary to back pain. She gave a history of saddle anesthesia with bladder incontinence or MRI was performed. Results showed degenerative disease as noted above. At this point patient's symptoms potentially are associated with an element of radiculopathy. Patient will be placed on a Medrol pack. She was recommended to continue working with her primary care physician to establish with a spinal surgeon. Disposition: Discharge Impression: 1. Lumbar radiculopathy This note was generated with [employer] dictation software. It may contain incorrect words, spelling, and punctuation that w ere not noted in review of the chart prior to signing ED Disposition - Plan for ED Patient: Disposition: Home or Assisted Living Chief Complaint: Back Diagnosis: Lumbar radiculopathy, acute Instruct ions: ED Sciatica Prescriptions: MethylPREDNISolone DosePak [Medrol DosePak] 4 mg PO UD #1 box Referrals: Shasha Barker MD [Primary Care Provider] - As soon as possible What to do if you have Problem s For any increased pain, shortness of breath, bleeding, nausea or vomiting, chest pain, or any unexpected problems, contact your Primary Care Provider. Call [facility] ([phone]) or report t o the closest Emergency Room. Call 911 if necessary. 01/20/18 0235 <Electronically signed by Rolando Mc MD> Date Rolando Mc MD Cosigner Signature (If Indicated): Date CC: Shasha Barker MD 19-Jan-2018 Spine Lumbar (Routine) Result: Comments: See Note; NOTES: [facility] Imaging Services [address] [facility] [place] [address] Spine Lumbar (Routine) MR#: [id number] Acct: [id number] Name: TIN BLACKWOOD Rep #: [id number] : 1960 F 57 From: Nabeel Bernabe MD PCP: Shasha Barker MD Status: REG ER Study: Spine Lumbar (Routine) Date of Exam: 01/19/18 Exam# [id number] Ordering Dr: Rolando Mc MD STUDY: MRI BUD MBAR SPINE WITHOUT CONTRAST REASON FOR EXAM: Female, 57 years old. Left leg pain TECHNIQUE: Standardized fat and water weighted pulse sequences were obtained in the sagittal and axial planes. COMPARI SON: None FINDINGS: T12-L1: Normal endplates. Normal disc height, hydration and morphology. Normal bilateral facet joints. Normal central canal and bilateral latera l recesses. Normal bilateral intervertebral neural foramina. Normal lumbar lordosis. There is severe levo scoliosis. Normal conus medullaris that terminates at T12- L1 L1-2: Normal endplates. Normal di sc height, hydration and minimal annular bulge. Normal bilateral facet joints. Normal central canal and bilateral lateral recesses. Normal bilateral intervertebral neural foramina. L2-3: Normal endplat es. Normal disc height, hydration and minimal annular bulge with tiny left foraminal disc protrusion. Normal bilateral facet joints. Normal central canal and bilateral lateral recesses. Mild left neural foraminal encroachment. L3-4: Normal endplates. Normal disc height, desiccation and mild annular bulge. Facet arthropathy and right synovial cyst. Normal central canal . Mild left lateral recess and n euroforaminal encroachment. Moderate right lateral recess stenosis and mild neural foraminal encroachment L4-5: Normal endplates. Narrowed disc space with desiccation of the disc and moderate annular b ulge. Bilateral facet arthropathy and thickening of ligamenta flava more pronounced on the left. Mild narrowing of the central canal. Moderate right lateral recess and neural foraminal stenosis with mor e severe narrowing on the left L5-S1: Normal endplates. Narrowed disc space with desiccation of the disc and minor annular bulge.. Bilateral facet arthropathy and thickening of ligamenta flava more pro nounced on the left.. Normal central canal. Moderate right lateral recess and neuroforaminal encroachment with more severe narrowing on the left. Normal visualized sacral ala. Incidental finding of atr ophic right kidney Normal visualized paraspinous soft tissue structures. MRI/Spine Lumbar (Routine) IMPRESSION: No evidence for acute fracture.. Severe levoscoliosis and degenerative changes. Multilevel spinal stenosis most severe at L4-5 and L5-S1 greater on the left Electronically Signed: Nabeel Bernabe MD at 19:57 EDT Tel , Service support , CC: Shasha Barker MD; Rolando Mc Central Supply Manager: Signed 19-Jan-2018 Spine Lumbar (Routine) Result: Comments: See Note; NOTES: [facility] Imaging Services [address] [place] [id number] Spine Lumbar (Routine) MR#: [id number] Acct: [id number] Name: TIN BLACKWOOD Rep #: [id number] : 1960 F 57 From: Nabeel Bernabe MD PCP: Shasha Barker MD Status: REG Study: Spine Lumbar (Routine) Date of Exam: 01/19/18 Exam# [id number] Ordering Dr: Rolando Mc MD STUDY: MRI BUD AR SPINE WITHOUT CONTRAST REASON FOR EXAM: Female, 57 years old. Left leg pain TECHNIQUE: Standardized fat and water weighted pulse sequences were obtained in the sagittal and axial planes. COMPARI SON: None FINDINGS: T12-L1: Normal endplates. Normal disc height, hydration and morphology. Normal bilateral facet joints. Normal central canal and bilateral latera l recesses. Normal bilateral intervertebral neural foramina. Normal lumbar lordosis. There is severe levo scoliosis. Normal conus medullaris that terminates at T12- L1 L1-2: Normal endplates. Normal di sc height, hydration and minimal annular bulge. Normal bilateral facet joints. Normal central canal and bilateral lateral recesses. Normal bilateral intervertebral neural foramina. L2-3: Normal endplat es. Normal disc height, hydration and minimal annular bulge with tiny left foraminal disc protrusion. Normal bilateral facet joints. Normal central canal and bilateral lateral recesses. Mild left neural foraminal encroachment. L3-4: Normal endplates. Normal disc height, desiccation and mild annular bulge. Facet arthropathy and right synovial cyst. Normal central canal . Mild left lateral recess and n euroforaminal encroachment. Moderate right lateral recess stenosis and mild neural foraminal encroachment L4-5: Normal endplates. Narrowed disc space with desiccation of the disc and moderate annular b ulge. Bilateral facet arthropathy and thickening of ligamenta flava more pronounced on the left. Mild narrowing of the central canal. Moderate right lateral recess and neural foraminal stenosis with mor e severe narrowing on the left L5-S1: Normal endplates. Narrowed disc space with desiccation of the disc and minor annular bulge.. Bilateral facet arthropathy and thickening of ligamenta flava more pro nounced on the left.. Normal central canal. Moderate right lateral recess and neuroforaminal encroachment with more severe narrowing on the left. Normal visualized sacral ala. Incidental finding of atr ophic right kidney Normal visualized paraspinous soft tissue structures. MRI/Spine Lumbar (Routine) IMPRESSION: No evidence for acute fracture.. Severe levoscoliosis and degenerative changes. Multilevel spinal stenosis most severe at L4-5 and L5-S1 greater on the left Electronically Signed: Nabeel Bernabe MD at 19:57 EDT Tel , Service support , CC: Shasha Barker MD; Rolando Mc Central Supply Manager: Signed 10-Dec-2017 Lower Ext/No Jt/w/o Result: Comments: See Note; NOTES: [facility] Imaging Services [address] [place] [id number] Lower Ext/No Jt/w/o MR#: [id number] Acct: [id number] Name: TIN BLACKWOOD Rep #: [id number] : 1960 F 56 From: Julio Cannon MD PCP: Shasha Barker MD Status: REG CLI Study: Lower Ext/No Jt/w/o Date of Exam: 12/10/17 Exam# [id number] Ordering Dr: Nabeel Danielle DPM STUDY: MRI RIGHT MIDFOOT REASON FOR EXAM: Female, 56 years old. History of cuneiform fracture. Pain. TECHNIQUE: Standardized fat and water weighted pulse sequences were obtained in all 3 orthogonal planes. COMPARISO N: X-ray August 18, 2016 FINDINGS: Normal talonavicular articulation. Normal calcaneocuboid articulation. Normal navicular-cuneiform articulations. There is mild dege nerative arthrosis of the intercuneiform articulation. There is moderate degenerative arthrosis of the first tarsometatarsal articulation. Normal Lisfranc ligament. There is moderate degenerative arthr osis of the second and third tarsometatarsal articulations. Normal cuboid fourth and cuboid fifth tarsometatarsal articulation. There is marrow edema with T2 signal hyperintensity and incomplete healin g of fracture of the medial cuneiform, series 5 image 16/. There is cystic change at the base of the first metatarsal. There is moderate heterogeneous marrow edema of the base and shaft of the first m etatarsal, series 4 images / through 01/29. There is marrow edema of the base and shaft of the second metatarsal, series 4 image 13/. There is mild marrow edema at the base and proximal shaft of the third metatarsal, series 4 image 16/. Arthritic change at the first MTP joint. Normal tibialis anterior tendon. Normal extensor hallucis longus tendon. Normal extensor digitorum longus tendons. Nor mal peroneus longus tendon and distal insertion. Normal peroneus brevis tendon and distal insertion. Normal intrinsic muscles of the mid and forefoot region. Normal extensor digitorum brevis muscle. N ormal subcutis adipose space. 0022 MRI/Lower Ext/No Jt/w/o IMPRESSION: There is marrow edema of the first and second and third metatarsals and the med ial cuneiform with stress injuries or stress fractures related to posttraumatic arthropathy versus Charcot arthropathy. Electronically Signed: Julio Cannon MD at 21:55 EDT Tel , Service support , CC: Shasha Barker MD; Nabeel Danielle DPM Central Supply Manager: Signed 18-Nov-2017 Thyroid Uptake Single or Mult Result: Comments: See Note; NOTES: [facility] Imaging Services [address] [place] [address] Thyroid Uptake Single or Mult MR#: [id number] Acct: [id number] Name: TIN BLACKWOOD Rep #: [id number] : 1960 F 56 From: Asif Pagan DO PCP: Shasha Barker MD Status: REG CLI Study: Thyroid Uptake Single or Mult Date of Exam: 11/18/17 Exam# [id number] Ordering Dr: Shasha Barker MD C LINICAL: 56-year-old female with reported history of subclinical hyperthyroidism. I-123 THYROID UPTAKE and SCAN COMPARISON: None available FINDINGS: The patient was administered a 295 uCi I-123 capsu le by mouth. The 4-hour I-123 radioactive iodine thyroidal uptake was calculated to be 9.8 % (normal 5 to 25 %). The 24-hour I-123 radioactive iodine thyroidal uptake was calculated to be 26.1 % (norm al 5 to 40 %). The I-123 thyroid scan demonstrates homogeneous radiopharmaceutical concentration throughout both lobes of a U-shaped thyroid gland. There are no colloidal parenchymal hypofunctioning-co ld nodules noted in either lobe of the thyroid gland. NM/Thyroid Uptake Single or Mult IMPRESSION: 1. NORMAL 4- and 24-hour I-123 radioactive iodine thyroidal uptakes. 2. 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 3. No hypofunctioning, cold nodules are identified. Electronically Signed: Asif Pagan DO at 22:10 EDT Tel , Service support [phone], CC: Shasha Barker MD Central Supply Manager: Signed 16-Nov-2017 Spine Cervical (Routine) Result: Comments: See Note; NOTES: [facility] Imaging Services [address] [place] [address] Spine Cervical (Routine) MR#: [id number] Acct: [id number] Name: TIN BLACKWOOD Rep #: [id number] : 1960 F 56 From: Andrew Duran DO PCP: Shasha Barker MD Status: REG CLI Study: Spine Cervical (Routine) Date of Exam: 11/16/17 Exam# [id number] Ordering Dr: More Taylor MD STUDY: MRI CERVICAL SPINE WITHOUT CONTRAST REASON FOR EXAM: Female, 56 years old. Neck and arm pain, numbness and tingling to the bilateral arms from 14 years. TECHNIQUE: Standardized fat and water weighted puls e sequences were obtained in the sagittal and axial planes. COMPARISON: None FINDINGS: Normal foramen magnum and brainstem-cervical cord junction. Normal craniovert ebral junction. Normal anterior atlantoaxial articulation. Normal odontoid process. Normal cervical lordosis. Normal vertebral bodies and posterior osseous elements. C2-3: Normal endplates. Normal dis c height, signal and morphology. Normal central canal and intervertebral neural foramina. C3-4: Disc desiccation and mild decreased disc space is present with bilateral facet arthropathy and uncoverteb ral joint arthropathy resulting in mild right foraminal narrowing. C4-5: Decreased disc space and disc space loss with uncovertebral joint arthropathy resulting in mild to moderate bilateral foraminal narrowing at this level. C5-6: Decreased disc space and disc osteophyte complex partially effacing the thecal sac with compounding uncovertebral joint arthropathy resulting in moderate to severe right and left foraminal narrowing. C6-7: Decreased disc space and disc osteophyte complex partially effacing the thecal sac with associated mild right and moderate left foraminal narrowing at this level.. C7-T1: Disc desiccation and mild decreased disc space with bilateral facet arthropathy resulting in mild bilateral foraminal narrowing. Normal cervical cord. Normal visualized soft tissue structures. MRI/Spine Cervical (Routine) IMPRESSION: 1. C5-6 disc degenerative change and uncovertebral joint arthropathy resulting in moderate to severe bi lateral foraminal narrowing, clinically correlate for exiting C5/6 nerve root radiculopathy. 2. C6-7 moderate left foraminal narrowing as above. 3. C4-5 mild to moderate bilateral foraminal narrowing. Electronically Signed: Andrew Duran DO at 20:50 EDT Tel , Service support , CC: More Taylor MD; Shasha Barker MD Central Supply Manager: Signed 03-Nov-2017 Pelvis 1 or 2 Views Result: Comments: See Note; NOTES: [facility] Imaging Services [address] [place] [address] Pelvis 1 or 2 Views MR#: [id number] Acct: [id number] Name: TIN BLACKWOOD Fabby Rep #: [id number] : 1960 F 56 From: Vale Godoy MD PCP: Shasha Barker MD Status: REG CLI Study: Pelvis 1 or 2 Views Date of Exam: 11/03/17 Exam# [id number] Ordering Dr: Shasha Barker MD STUDY: X-RAY - PELVIS REASON FOR EXAM: Female, 56 years old. Pain, fall TECHNIQUE: One view of the pelvis was obtained. COMPARISON: March 18, 2013 pelvis x-ray. FINDINGS: There is a non-specific bowel gas pattern. Normal visualized soft tissue structures. There is narrowing with cortical sclerosis and osteophyte formation of the sacroiliac joint consistent with degenerative osteoa rthritic changes. Normal visualized bilateral superior and inferior pubic rami. Normal pubic symphysis. Normal ischial tuberosities. There is visualized degenerative change in the lumbar spine L4-L5 L5- S1 worse prior study. Normal visualized right femoral head. There is osteoarthritic spur formation of the right acetabular rim. Normal right hip joint. Normal visualized left femoral head. There is os teoarthritic spur formation of the left acetabular rim. Normal left hip joint. RAD/Pelvis 1 or 2 Views IMPRESSION: Mild degenerative change. No v isualized evidence of an acute fracture. Advanced degenerative changes lower lumbar spine. Electronically Signed: Vale Godoy MD at 17:01 EDT Tel , Service support [phone], CC: Shasha Barker MD Central Supply Manager: Signed 27-Aug-2017 Orb Sella Post Fossa Ear w/o Result: Comments: See Note; NOTES: [facility] Imaging Services [address] [place] [address] Orb Sella Post Fossa Ear w/o MR#: [id number] Acct: [id number] Name: TIN BLACKWOOD Rep #: [id number] : 1960 F 56 From: Nir Dudley MD PCP: Shasha Barker MD Status: REG CLI Study: Orb Sella Post Fossa Ear w/o Date of Exam: 08/27/17 Exam# [id number] Ordering Dr: Dale Zuniga STUDY: CT TEMPORAL BONES WITHOUT CONTRAST REASON FOR EXAM: Female, 56 years old. HEARING LOSS LEFT SIDE RADIATION DOSAGE (If Supplied By Facility): CTDIvol = ( 82.28 ) mGy, DLP = ( 847.92 ) mGycm TECHNIQUE: The patient was scanned in a multi detector CT scanner. High resolution transaxial imaging was performed without the administration of intravenous contrast material. Sagittal and coronal ronny ges were reconstructed. Individualized dose optimization techniques were used for this CT. COMPARISON: None. FINDINGS: RIGHT TEMPORAL BONE Normal right external a uditory canal. Normal malleus, incus and stapedius. Normal malleoincudal and incudostapedial articulations. Normal epitympanum, mesotympanum, and hypotympanum. Normal right posterior, superior and lat eral semicircular canals. Normal right vestibule and cochlea. Normal tympanic segment of the facial nerve. Normal Korner's septum, tegmen tympani, arcuate eminence and aditus ad antrum. Normal right ma stoid air cells. Normal right petrous apex. Normal right petrous carotid artery. Normal right jugular fossa. Normal right internal auditory canal. Normal right vestibular and cochlear aqueducts. LEFT TEMPORAL BONE Normal left external auditory canal. Normal malleus, incus and stapedius. Normal malleoincudal and incudostapedial articulations. Normal epitympanum, mesotympanum, and hypotympanum. Nor mal left posterior, superior and lateral semicircular canals. Normal left vestibule and cochlea. Normal tympanic segment of the facial nerve. Normal Korner's septum, tegmen tympani, arcuate eminence an d aditus ad antrum. Normal left mastoid air cells. Normal left petrous apex. Normal left petrous carotid artery. Normal left jugular fossa. Normal left internal auditory canal. Normal left vestibular and cochlear aqueducts. CT/Orb Sella Post Fossa Ear w/o IMPRESSION: Normal CT examination of the bilateral temporal bones. Electronically Signed : Nir Dudley MD at 22:42 EDT , Service support , CC: Beni Zuniga MD; Shasha Barker MD Central Supply Manager: Signed 25-May-2017 Chest PA and Lateral Result: Comments: See Note; NOTES: [facility] Imaging Services [address] [place] [address] Chest PA and Lateral MR#: [id number] Acct: [id number] Name: TIN BLACKWOOD Rep #: [id number] : 1960 F 56 From: Aguilar Joaquin MD PCP: Shasha Barker MD Status: REG RCR Study: Chest PA and Lateral Date of Exam: 05/25/17 Exam# [id number] Ordering Dr: Pelon Chatterjee MD STUDY: X-RAY CHEST REASON FOR EXAM: Female, 56 years old. Cryptogenic organizing pneumonia. TECHNIQUE: PA and lateral views of the chest. COMPARISON: Comparison is made with prior study dated May 15, 2017. _ FINDINGS: The lungs are clear and expanded. Scattered calcified granulomas. There is no demonstrated pleural abnormality. Normal size heart. Calcified bilateral hil ar lymph nodes. Normal visualized pulmonary arteries. Normal visualized aortic arch and descending thoracic aorta. There are diffuse degenerative changes of the visualized thoracic spine. Normal visual ized ribs, clavicles, and shoulders. There is no demonstrated abnormality of the visualized soft tissue structures of the upper abdomen. RAD/Lucia st PA and Lateral IMPRESSION: No acute abnormality is seen. Electronically Signed: Aguilar Joaquin MD at 19:35 EST Tel [phone], Service support , CC: Shasha Barker MD; Pelon Chatterjee MD Central Supply Manager: Signed 15-May-2017 Chest PA and Lateral Result: Comments: See Note; NOTES: [facility] Imaging Services [address] [place] [address] Chest PA and Lateral MR#: [id number] Acct: [id number] Name: TIN BLACKWOOD Rep #: [id number] : 1960 F 56 From: Patrice Pinto MD PCP: Shasha Barker MD Status: REG CLI Study: Chest PA and Lateral Date of Exam: 05/15/17 Exam# [id number] Ordering Dr: Shasha Barker MD STUDY: X-RAY CHEST REASON FOR EXAM: Female, 56 years old. COPD. TECHNIQUE: Frontal and lateral views of the chest COMPARISON: 01/21/2017 FINDINGS: The lungs are clear. There are no p leural effusions. There is no pneumothorax. The heart is normal in size. The visualized osseous structures are within normal limits. RAD/Chest PA and Lateral IMPRESSION: No acute thoracic pathology. Electronically Signed: Patrice Pinto, at 16:42 EST Tel , Service support , CC: Shasha Barker MD Central Supply Manager: Signed 21-Jan-2017 Emergency Department Summary Result: Comments: See Note; NOTES: [facility] Medical Records Department [address] [place] [address] Emergency Department Summary 01/20/17 2344 MR#: [id number] Acct: [id number] Name: TIN BLACKWOOD Rep #: [id number] : 1960 56 From: Christian Hemphill PCP: Shasha Barekr MD Status: REG ER - ER Visit Summary Date of Service: 01/20/17 Chief Complaint: Dyspnea with chest tightness Hist ory of Present Illness: The patient is a 56 F history of pulmonary fibrosis secondary to methotrexate for treatment of rheumatoid arthritis no home oxygen presents with worsening dyspnea since this morn ing. Remote tobacco years ago. Denies any wheezing. States his has chest tightness. Used MDI inhaler 2 with no improvement. Denies any recent travel, surgeries, or immobilizations. No history of PE or D VT. Patient is on Plaquenil along with prednisone at 10 mg currently. Denies any nausea or vomiting. Similar symptoms back in July when she required admission. Physical Examination: Vitals: Temp 98.6, pulse 82, respiration 22, blood pressure 120/70, pulse ox 85% on room air in triage General: Alert and oriented 3, no acute distress no cyanosis HEENT: Normocephalic, atraumatic. Moist mucosa membranes Neck: supple, nontender. Cardiovascular: Regular rate and rhythm, no murmurs Respiratory: Normal breath sounds, symmetric, no distress Abdomen: Soft, nontender, nondistended Extremities: Nontender, no edema, pulses intact 4 Neuro: no focal neurological deficits. Test Results: Labs no white count 10.5. Hemoglobin 10.4. Creatinine 1.04. Troponin 0 0.11. EKG sinus rate of [address] changes. Isolated T- wave inversion in leads III, old from previous. Chest x-ray with her pulmonary fibrosis with chronic changes. CT of the chest no PE. 6 mm right upper lobe nodule Emergency Department Course and Treatme nt: Patient hypoxic on examination. Placed on 4 L of oxygen, maintaining in the low 90s. Given Solu-Medrol 2 history of pulmonary fibrosis. Given DuoNeb treatment. Chest x-ray no chronic changes. Labora tory workup no elevated troponin of 0.11. No records when she was admitted back in August had more elevated troponin and obtain a cardiac cath with no intervention. Discussed with patient states was told secondary to cardiac stress from her pulmonary fibrosis. This likely similar cause. He has no EKG changes. With her hypoxemia I did obtain a CT of the chest to rule out PE which was negative. No 6 mm r ight upper lobe nodule. Patient does not wear home oxygen. She is oxygen dependent currently. Spoke with Dr. Ring for admission. Treatment Plan: [] Disposition: Admission Impression: 1. Pulmonary fi brosis 2. Hypoxemia 3. Elevated troponin 4. Pulmonary nodule ED Disposition - Plan for ED Patient: Disposition: Acute Care Hospital [facility] Chief Complaint: Shortness of Breath Diagnosis: Pulmonary fibro sis, Hypoxemia, Elevated troponin, Pulmonary nodule, right Referrals: Shasha Barker MD [Primary Care Provider] - What to do if you have Problems For any increased pain, shortness of breath, bleedin g, nausea or vomiting, chest pain, or any unexpected problems, contact your Primary Care Provider. Call [facility] ([phone]) or report to the closest Emergency Room. Call 911 if necessary. 01/21/17 0231 <Electronically signed by Christian Hemphill> Date Christian Hemphill Cosigner Signature (If Indicated): Date CC: Shasha Barker MD 21-Jan-2017 CTA Chest W/WO Contrast Result: Comments: See Note; NOTES: [facility] Imaging Services [address] [place] [address] CTA Chest W/WO Contrast MR#: [id number] Acct: [id number] Name: TIN BLACKWOOD Rep #: [id number] : 1960 F 56 From: Stepan Mayberry MD PCP: Shasha Barker MD Status: REG ER Study: CTA Chest W/WO Contrast Date of Exam: 01/21/17 Exam# [id number] Ordering Dr: Christian Schrader DO STUDY: CTA CHEST REASON FOR EXAM: Female, 56 years old. Hypoxia RADIATION DOSAGE (If Supplied By Facility): CTDIvol = ( 23.06 ) mGy, DLP = ( 629.67 ) mGycm TECHNIQUE: The examination was performed with the intravenou s administration of 100 ml of Isovue 370 contrast material. Post-processing of the angiographic images was performed, with multiplanar reformation and 3D reconstruction. Individualized dose optimizatio n techniques were used for this CT. COMPARISON: None. FINDINGS: Small hiatal hernia. Normal enhancement of the main pulmonary artery and right and left pulmonary a rteries. Normal enhancement of the bilateral peripheral pulmonary arteries. There is no demonstrated pulmonary embolism. Normal thoracic aorta and visualized great vessels. There is no demonstrated ao rtic dissection. Normal heart and pericardium. Normal mediastinum. Normal hilar regions. Normal visualized trachea and bronchi. Diffuse groundglass opacities are present throughout both lungs, with some sparing of the lung peripheries and lung bases. Focal scarring is present in the right lateral lung. A noncalcified 6 mm nodule is present in the right upper lobe on image 139 of series 2. Normal pleura. Normal chest wall structures. There are degenerative changes of thoracic spine. Normal visualized upper abdomen. CT/CTA Chest W/WO Co ntrast IMPRESSION: 1. No pulmonary embolus. 2. 6 mm nodule in the right upper lobe. Follow up recommendations are given below. 3. Diffuse groundglass opacities in both lungs. The differential for this i s extensive and includes hypersensitivity pneumonitis, sarcoidosis, cryptogenic organizing pneumonia, eosinophilic pneumonia, cardiogenic edema, and viral infection. Based on Fleischner Society Guideli pho[place], suggested follow-up for a >4-6 mm lung nodule detected incidentally on CT (in patients over age 35) is as follows: Low risk patients: Initial follow-up CT at 12 months. If stable at 12 mon ths, no further follow-up is necessary. High risk patients: Initial follow-up CT at 6-12 months. If stable at initial follow-up, repeat CT at 18-24 months. Electronically Signed: Stepan Mayberry MD at 2:02 EDT Tel , Service support , CC: Shasha Barker MD; Christian Schrader Central Supply Manager: Signed 20-Jan-2017 Chest PA and Lateral Result: Comments: See Note; NOTES: [facility] Imaging Services [address] [place] [address] Chest PA and Lateral MR#: [id number] Acct: [id number] Name: TIN BLACKWOOD Rep #: [id number] : 1960 F 56 From: Stepan Mayberry MD PCP: Shasha Barker MD Status: REG ER Study: Chest PA and Lateral Date of Exam: 01/20/17 Exam# [id number] Ordering Dr: Christian Schrader DO STUDY: X-RAY CHEST DELMY SON FOR EXAM: Female, 56 years old. Shortness of breath TECHNIQUE: Frontal and lateral views of the chest. COMPARISON: 09/11/2016 FINDINGS: Mild diffuse pulmonary edema. There is no demonstrated pleural abnormality. Mild prominence of the cardiomediastinal silhouette. Normal visualized pulmonary arteries. Normal visualized aortic arch and descending thoracic aor ta. There are diffuse degenerative changes of the visualized thoracic spine. Normal visualized ribs, clavicles, and shoulders. There is no demonstrated abnormality of the visualized soft tissue struct ures of the upper abdomen. 0123 RAD/Chest PA and Lateral IMPRESSION: Mild diffuse pulmonary edema. Electronically Signed: Stepan Mayberry MD 01/21 at 1:21 EDT Tel , Service support , CC: Shasha Barker MD; Christian Schrader Central Supply Manager: Signed 21-Nov-2016 PT D/C Summary (1) Result: Comments: See Note; NOTES: [facility] Physical Therapy [facility] [address] [place] [address]. [address] [place] [address] Fax REHABILITATION SERVICES [facility] SUMMARY MR#: [id number] Acct: [id number] Name: TIN BLACKWOOD Rep #: [id number] : 1960 55 From: Yury Lawrence PT, Cert. MDT, OCS Referring DrPeter: Shasha Barker MD Status: REG R Insurance: [facility] - PT D/C Summary It has been my pleasure to treat TIN BLACKWOOD under orders from Shasha Barker, for the diagnosis of RA, DDD C-Spine w/L arm PN, Leg PN, Fx R medial cuneiform for a total o f 8 visit( s). Discharge Date: Please see the following information for a summary of their discharge status. - Subjective Subjective: Doing okay ,pain is about same ..Symptoms worse with activity ho usework tasks. - Pain Neck Pain Intensity (Out of 10): 4 Left Shoulder Pain Intensity (Out of 10): 4 Right Foot Pain Intensity (Out of 10): 6 Bilateral Back Pain Intensity (Out of 10): 4 - Overall Improvement % Improvement: 25 - Objective Objective/Function: POSTURE: WFL. GAIT: NORMAL ALTAF. CERVICAL ROM: FLEXION MIN ,LATERAL FLEXION MOD PAIN LEFT,ROTATION MOD,EXTENSION MIN/MOD LOS S ,MIN LOSS FLEXION. MMT:4/5 BUE. MMT : BLE QUADS/HAMS 4/5,HIP 4-/5. ANKLE ROM: WFL,DF 4/5 ,PF,EV/IN 4-/5. LUMBAR ROM: MIN FLEXION ,EXTENSION WFL - Goals Goal 1:: I with HEP Goal Progress: Progressing Goal 2:: Pt. will decrease neck pain/symptoms by 50% or greater for improved ability to complete ADLs Goal Progress: Progressing Goal 3:: Pt. will increase cervical ROM loss in all planes to minimal for improved ability to complete ADLs and work. Goal Progress: Progressing Goal 4:: Pt. will decrease pain the right foot by 50% or greater for improved gait and ability to ambulate. Goal Progress: Progres sing Goal 5:: Pt. will increase L UE strength to equal the R UE for improved ability to complete ADLs Goal Progress: Progressing Goal 6:: Pt. will be able to sleep through the night 3-4 days per week wi thout the use of a sleep aide for improved QOL. Goal Progress: Progressing - Plan Plan: D/C - D/C Information If there are questions or concerns regarding this patient's physical therapy, please feel free to call me at [phone]. Thank you for the referral of this patient. Sincerely, Yury Lawrence PT, <Electronically signed by Yury Lawrence PT, Cert. MDT, OCS> 11/21/16 1533 CC: Shasha Barker MD MARIN Signed 22-Oct-2016 Inital Evaluation (1) - PT Result: Comments: See Note; NOTES: [facility] Physical Therapy [facility] [address] [place], [place] [address] Fax REHABILITATION SERVICES INITIAL EVALUATION MR#: [id number] Acct: [id number] Name: TIN BLACKWOOD Rep #: [id number] : 1960 55 From: Yury Lawrence PT, Cert. MDT, OCS Referring Dr.: Shasha Barker MD Status: REG R Insurance: [employer] Patient's Visit Information TIN BLACKWOOD is a 55 year old F referred to Physical Therapy by Shasha Barker with a diagnosis of RA, DDD C-Spine w/L arm PN, Leg PN, Fx R medial cuneiform. Date of Evaluation: 10/20/16 Physical Therapist: Yury Lawrence PT, - Visit Plan Frequency: 2x /Week Duration: 4 Weeks Plan: PRECATON :Avoid cervical retraction due to diagnosis of RA,. Manual therapy-ma nual cervical traction gentle. Cervical PROM/AROM exercises intitally avoid LF /rotation to left. UE strengthening exercises,. DLS,. Deidre exercises- in standing due to increase of arm symptoms when lying for lumbar. Posture/Body Mechanics training,. Ankle strengthening exercises- all planes. Ankle stretching exercises. Modalities PRN - Subjective Subjective: Patient is a 55 y/o female who present s with neck pain with radiating pain in the left arm, leg pain, foot pain, and low back pain. Neck pain began at least 10 years ago, the radiating pain down her arm began six months ago. She has numbess , tingling, and weakness in the left arm. She had facet injections in the neck, that did not help. Worse- when turning her head to the left and side bending to the left. Had an MRI and x-ray in the last six months where they found the DDD and stenosis. She was diagnosised with RA three years ago. Low back pain began 36 years, she has had treatment several times, pain management. The last episode began last fall and she had back pain that radiates down the leg. She had an injection in the fall and has not had leg pain since but the back pain did not get better. The back pain was bilateral while the l eg pain was on the right. She has had PT in the past for the LBP. No back surgeries. She also has pain in the bottock area that hurts when she is sitting. She also has intersitial lung disease. She had an episode where she passed out from the lung disease in August. When she fell down she fractured her right foot. She wore a boot up until today, now she is wearing normal shoes due to the pain the boot causes in her foot. 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 SOCAIL: - Pain Neck Pain Intensity (Out of 10): 4 Pain Intensity Range: 10 Left Shoulder Pain Intensity (Out of 10): 4 Pain Intensity Range: 10 Comment: all the way down arm to the finger tips Right Foot Pain Intensity (Out of 10): Unrated Pain Intensity Range: Unrated Comment: not rated today Bilateral Back Pain Intensity (Ou t of 10): Unrated Pain Intensity Range: Unrated Comment: not rated today - Objective POSTURE: slight forward head, rounded shoulders. PALPATION: right foot tenderness at lateral dorsum and medial plant ar aspect of foot. No tenderness in neck or low back. NEURO: reflexes: Bicep- B 2/3 Tricep- B-2/3. numbness + tingling reported in left arm. Myotomes- intact B UE and B LE. ROM: Cervical- flexion- minim al loss, slight pain Extension- moderate loss, painful, Side bending R- no loss or pain, Side bending L- moderate loss, painful, Rotation R- no loss or pain, Rotation L- moderate, painful. Shoulder- B W FL all planes. Lumbar- flexion- no loss, painful, Extension- no loss, feels better, Side bending R- no loss, slight pain, Side bending L - no loss or pain. Ankle- DF- R- no loss, painful, PF- no loss. M MT: Shoulder- Shoulder flexion- R- 4/5, L-3+/5, Elbow flexion- R-4+/5, L-3+/5, Elbow extension- R-4/5, L-4-/5 Wrist flexion- B-4/5 Wrist extension- B-4/5. Hip flexion- B-4/5, Knee flexion- B-4+/5, Knee extension- B-4/5, DF- R-3+/5, L-4/5, PF- B-4-/5. Cervical Distraction- Positive L side. Cervical Compression- Postive L side. Supine distraction- Positive L side pain completely allieviated. GAIT: decre ased stance time on R compared to L, decreased altaf. EDEMA: mild effusion dorsal foot - Special Tests C/S Radiculapathy - Left Spurlings: Positive C/S Radiculapathy - Left Cervical distraction: Posi tive Cervical Sitting: Flexion - Mechanical Response: No effect Cervical Sitting: Flexion - Symptoms During Testing: No effect Cervical Sitting: Flexion - Symptoms After Testing: No effect Lumbar Standi ng: Flexion - Mechanical Response: No effect Lumbar Standing: Flexion - Symptoms During Testing: Increases Lumbar Standing: Flexion - Symptoms After Testing: No better Lumbar Standing: Extension - Mecha nical Response: No effect Lumbar Standing: Extension - Symptoms During Testing: Decreases Lumbar Standing: Extension - Symptoms After Testing: No better Lumbar Lying: Extension - Mechanical Response: No effect Lumbar Lying: Extension - Symptoms During Testing: Increases Lumbar Lying: Extension - Symptoms After Testing: No worse - Goals Goal 1:: I with HEP Goal Time Frame: 4-6 Weeks Goal 2:: Pt. will decrease neck pain/symptoms by 50% or greater for improved ability to complete ADLs Goal Time Frame: 4-6 Weeks Goal 3:: Pt. will increase cervical ROM loss in all planes to minimal for improved ability to complete ADLs and work. Goal Time Frame: 4-6 Weeks Goal 4:: Pt. will decrease pain the right foot by 50% or greater for improved gait and ability to ambulate. Goal Time Frame: 4-6 Weeks Goal 5:: Pt. will increase L UE strength to equal the R UE for improved ability to complete ADLs Goal Time Frame: 4-6 Weeks Goal 6:: Pt. will be able to sleep through the night 3-4 days per week without the use of a sleep aide for improved QOL. Goal Time Frame: 4-6 Weeks - Rehabilitation Potential Physical Therapy Diagnosis: Patient presents with neck pain with radicular symptoms into the L arm from severe stenos is and DDD in the cervical spine as reported on MRI. Patient also has LBP with radicular symptoms that are made worse with flexion and better with extension. The patient also has pain in the right foot from a fractured medial cuneiform with able to remove boot as mohini per ortho.. The patient would benefit from skilled therapy to address multiple limitations of decreased UE and LE strength, cervical ROM deficits, and gait that make completing ADLs and work activities difficult. Rehabilitation Potential: Good - Anticipated Interventions Patient/Client Instruction: Educate patient on: Condition, Plan o f Care, Risk Factors For the Purpose of:: To decrease pain, To decrease swelling/inflammation, To increase ROM, To improve muscle performance and motor function, To improve ability to perform ADL's, To improve performance and independence with ADL's, To increase flexibility/ROM, To improve endurance, To improve safety with gait, To prevent re-injury, To improve tolerance to ADL's Therapeutic Exercise to Include: Strength training, Endurance training, Body mechanics, Postural training, Flexibilty training, Passive ROM, Active ROM, Dynamic Lumbar Stabilization, Deidre Exercises For the Purpose of:: To decrease pain, To increase ROM, To improve muscle performance and motor function, To improve ability to perform ADL's, To increase flexibility/ROM, To improve endurance, To prevent re-injury Manual T herapy Techniques to Include: Passive ROM Comment: manual traction For the Purpose of:: To decrease pain, To increase ROM, To increase flexibility/ROM IF ES: Yes Cryotherapy (ice pack, ice massage): Yes Thermo therapy (hot pack): Yes Ultrasound (thermal/non thermal): Yes For the Purpose of:: To decrease pain, To increase ROM, To improve nutrient delivery to tissue, To increase oxygenation perfusion, T o improve health of tissue, To increase flexibility/ROM Thank you for the opportunity to evaluate your patient. For Medicare and Medicare HMO plans, please review the plan of care and approve it. I t will need to be FAXED BACK to us at [phone] for Medicare purposes. Please let me know if there are questions or concerns regarding this plan of care. Physician Signature: Date: <Electronically signed by Yury Lawrence PT, Cert. MDT, OCS> 10/22/16 1356 CC: Shasha Barker MD MARIN Signed F or Medicare only, by signing this I certify the plan of care. Physicians Signature Date 11-Sep-2016 Chest PA and Lateral Result: Comments: See Note; NOTES: [facility] Imaging Services [address] [place] [address] Verdana 4d Chest PA and Lateral MR#: [id number] Acct: [id number] Name: TIN BLACKWOOD Rep #: [id number] : 1960 F 55 From: Hair Rogers MD PCP: Shasha Barker MD Status: REG CLI Study: Chest PA and Lateral Date of Exam: 09/11/16 Exam# [id number] Ordering Dr: Pelon Chatterjee MD STUDY: X-RAY CHEST REASON FOR EXAM: Female, 55 years old. Cryptogenic organizing pneumonia TECHNIQUE: 2 views COMPARISON: None. FINDINGS: The lungs are clear and expanded. There is no demonstrated pleural abnormality. Normal size heart. Normal mediastinum and richard. Normal visualized pulmonary arteries. Normal visualized aortic arch and descending thoracic a henry. Mild degenerative changes of the thoracic spine Normal visualized ribs, clavicles, and shoulders. There is no demonstrated abnormality of the visualized soft tissue structures of the upper abdom en. RAD/Chest PA and Lateral IMPRESSION: There is no evidence of a cryptogenic organizing pneumonia. Mild degenerative changes of the thoracic sp ine Electronically Signed: Hair Rogers, at 4:36 EDT Tel , Service support , CC: Shasha Barker MD; Pelon Chatterjee MD Central Supply Manager: Signed 18-Aug-2016 Foot min 3 Views Result: Comments: See Note; NOTES: [facility] Imaging Services [address] [place] [address] Verdana 4d Foot min 3 Views MR#: [id number] Acct: [id number] Name: TIN BLACKWOOD Rep #: [id number] : 1960 F 55 From: Smith Delaney MD PCP: Shasha Barker MD Status: REG CLI Study: Foot min 3 Views Date of Exam: 08/18/16 Exam# [id number] Ordering Dr: Shasha Barker MD STUDY: X-RAY - [facility] FOOT CLINICAL: Female, 55 years old. Fell one week ago, extreme pain and bruising across top of foot TECHNIQUE: 3 view(s) of the foot. COMPARISON: None. FINDI NGS: There is a nondisplaced fracture of the medial cuneiform.. Normal visualized subtalar, talonavicular, calcaneocuboid, tarsal and tarsometatarsal articulations. Normal metatarsi. There are mild d egenerative changes of the metatarsophalangeal joint of the great toe. Normal tibial and fibular sesamoid bones. Normal interphalangeal joint of the great toe. Normal phalanges of the great toe. Normal second through fifth metatarsophalangeal joints. Normal interphalangeal joints and phalanges of the lesser toes. There is medial soft tissue swelling. ORDER #: RAD/Foot min 3 Views IMPRESSION: Nondisplaced fracture of the medial cuneiform with soft tissue swelling. Mild degenerative changes of the first MTP joint Electronically Signed: Smith hancock MD, FACR at 13:47 EDT , Service support , CC: Shasha Barker MD Central Supply Manager: Signed 05-Aug-2016 Chest 1 View (Portable) Result: Comments: See Note; NOTES: [facility] Imaging Services [address] [place] [address] Verdana 4d Chest 1 View (Portable) MR#: [id number] Acct: [id number] Name: TIN BLACKWOOD Rep #: [id number] : 1960 F 55 From: Aguilar Joaquin MD PCP: Shasha Barker MD Status: REG ER Study: Chest 1 View (Portable) Date of Exam: 08/05/16 Exam# [id number] Ordering Dr: Regino Hinson MD STUDY: X-RAY CHEST REASON FOR EXAM: Female, 55 years old. Dyspnea and shortness of breath. TECHNIQUE: Single AP portable view of the chest. COMPARISON: Comparison is made with prior study dated October 03, 2015. FINDINGS: EKG electrodes are seen. There now is evidence of a elevation of the right hemidiaphragm with patchy infiltrates in the right lung and left lung base. Follow-up is recommended. There is no demonstrated pleural abnormality. Normal size heart. Normal mediastinum and richard. Normal visualized pulmonary arteries. Normal visualized aortic arch and hillary cending thoracic aorta. Normal visualized thoracic spine. Normal visualized ribs, clavicles, and shoulders. There is no demonstrated abnormality of the visualized soft tissue structures of the upper a bdomen. RAD/Chest 1 View (Portable) IMPRESSION: Patchy infiltrates in the right lung as well as at the left lung base. Radiographic follow-up is recommended. Electronically Signed: Aguilar Joaqiun MD at 9:42 EDT Tel [phone], Service support [phone], CC: Shasha Barker MD; Regino Hinson MD Central Supply Manager: Signed 01-Jul-2016 Chest WITH Contrast Result: Comments: See Note; NOTES: [facility] Imaging Services [address] [place] [address] Meyna 4d Chest WITH Contrast MR#: [id number] Acct: [id number] Name: TIN BLACKWOOD Rep #: [id number] : 1960 F 55 From: Keyshawn Unger DO PCP: Shasha Barker MD Status: REG CLI Study: Chest WITH Contrast Date of Exam: 07/01/16 Exam# [id number] Ordering Dr: Shasha Barker MD STUDY: CT CHES T WITH CONTRAST REASON FOR EXAM: Female, 55 years old. Follow-up of MRI. Interstitial lung disease. RADIATION DOSAGE (If Supplied By Facility): CTDIvol = ( 12.99 ) mGy, DLP = ( 553.48 ) mGycm TECHNIQ UE: Transaxial imaging was performed following intravenous administration of 100 ml of Isovue 300 contrast material. Individualized dose optimization techniques were used for this CT. COMPARISON: 02/07 FINDINGS: Normal appearance of the thyroid. As compared to exam from 2014, there is been significant decrease in mosaic groundglass interstitial pattern throu ghout the lungs. Scattered areas of groundglass airspace disease seen throughout the upper lobes with some evidence of interseptal thickening. The lungs are adequately inflated. No pleural effusions. So ft tissue nodule in the right middle lobe is noted measuring 4.3 mm. Calcified nodules in the right upper lobe. No suspicious left-sided nodules. Normal heart and pericardium. Normal mediastinum. Norm al hilar regions. Normal enhanced pulmonary arteries. Normal aorta arch and descending thoracic aorta. There are multi-level degenerative changes of the thoracic spine. Small hemangioma in the right l obe of the liver. Moderate atrophy of the right kidney. CT/Chest WITH Contrast IMPRESSION: As compared with the CT from 2015, significant interva l improvement in mosaic groundglass airspace disease throughout the lungs. There remains a small component of this throughout the lungs with scattered interstitial septal thickening. Right middle lobe soft tissue nodule as above. Recommend follow-up chest CT in 6 months. Atrophy of the right kidney Electronically Signed: Keyshawn DO Ute at 22:47 EST Tel , Service support , CC: Shasha Barker MD Central Supply Manager: Signed 17-Jun-2016 Spine Cervical (Routine) Result: Comments: See Note; NOTES: [facility] Imaging Services [address] [place] [address] Verdana 4d Spine Cervical (Routine) MR#: [id number] Acct: [id number] Name: TIN BLACKWOOD p #: [id number] : 1960 F 55 From: Kadie Dailey MD PCP: Shasha Barekr MD Status: REG CLI Study: Spine Cervical (Routine) Date of Exam: 06/17/16 Exam# [id number] Ordering Dr: More Taylor MD STUD Y: MRI CERVICAL SPINE WITHOUT CONTRAST REASON FOR EXAM: Female, 55 years old. Neck pain for many years. TECHNIQUE: Standardized fat and water weighted pulse sequences were obtained in the sagittal and axial planes. COMPARISON: Radiographs of cervical spine dated September 05, 2013. FINDINGS: Normal foramen magnum and brainstem-cervical cord junction. Normal cranioverte bral junction. Normal anterior atlantoaxial articulation. Normal odontoid process. There is reversal of the normal cervical lordosis. There is multilevel spondylosis of the cervical spine. C2-3: There is a mild disc bulge and osteophyte complex. There there is a severe left-sided neural foraminal narrowing and potential nerve impingement. The right neural foramen is patent. There is no significant c entral acquired canal stenosis. C3-4: There is a mild disc bulge and osteophyte complex. The neural foramina are mildly narrowed without evidence for nerve impingement. C4-5: There is narrowing of thi s disc. There is a posterior broad central disc protrusion. There is mild central acquired canal stenosis. The neural foramina are severely narrowed with evidence for potential nerve impingement. There is uncovertebral and facet joint arthropathy. C5-6: There is a broad central disc protrusion. There is uncovertebral and facet joint arthropathy. There is mild central acquired canal stenosis. There is severe bilateral neural foraminal narrowing with potential nerve impingement. C6-7: There is a broad central disc protrusion. There is mild central acquired canal stenosis. There is severe left-sided neural foraminal narrowing and potential nerve impingement. The right neural foramen is mildly narrowed. C7-T1: Normal endplates. Normal disc height, signal and morphology. Normal central canal and int ervertebral neural foramina. Normal cervical cord. There is no demonstrated cervical cord syrinx cavity. Normal visualized soft tissue structures. 004 MRI/Spine Cervical (Routine) IMPRESSION: Multilevel degenerative disc disease and degenerative arthropathy of the cervical spine with acquired canal stenosis, neural foraminal narrowing and potentia l nerve impingement as described. Electronically Signed: Kadie Dailey MD at 11:29 EST , Service support [phone], CC: More Taylor MD; Shasha Barker MD Central Supply Manager: Signed 17-Jun-2016 Spine Thoracic (Routine) Result: Comments: See Note; NOTES: [facility] Imaging Services [address] [place] [address] Verdana 4d Spine Thoracic (Routine) MR#: [id number] Acct: [id number] Name: TIN BLACKWOOD Barbara p #: [id number] : 1960 F 55 From: Kadie Dailey MD PCP: Shasha Barker MD Status: REG CLI Study: Spine Thoracic (Routine) Date of Exam: 06/17/16 Exam# [id number] Ordering Dr: More Taylor MD STUD Y: MRI THORACIC SPINE WITHOUT CONTRAST REASON FOR EXAM: Female, 55 years old. Mid back pain radiating down left side. TECHNIQUE: Standardized fat and water weighted pulse sequences were obtained in th e sagittal and axial planes. COMPARISON: Radiographs of the thoracic spine dated October 12, 2015. FINDINGS: Normal kyphosis of the thoracic spine. There is no substan tial scoliosis. T1-2, T2-3, T3-4, T4-5, T5-6, T6-7, T7-8, T8-9, T9-10, T10-11, T11-12: There is narrowing of the T5-6, T6-7, T7-8 disc consistent with degenerative disc disease. There is abnormal signa l of the endplates of these vertebral bodies that are probably related to chronic Modic changes. There is mild wedge-shaped deformity of T6. There is multilevel thoracic spondylosis. There are multiple Schmorl's nodes of the endplates of T8, T7, T6 and T5. There is a mild focal central disc protrusion at T5-6 with mild central acquired canal stenosis. Neural foramina are narrowed at this level withou t definite nerve impingement. There appears to be a focal left central disc protrusion at T8-9 with mild central acquired canal stenosis. Neural foramina are mildly narrowed without evidence for nerve impingement. There is a annular disc bulge at T10-11 with mild central acquired canal stenosis. Appears to be a significant left-sided neural foraminal narrowing at this level with possible nerve impin gement. There may be left foraminal disc protrusion at this level. Normal visualized thoracic cord. Normal conus medullaris that terminates at the L1 level.. There appear to be small right-sided renal cysts. There may be decreased size of the right kidney suggesting possible sequela chronic renal sufficiency. There is a questionable right upper lobe mass versus airspace disease measuring up to 2.3 cm in size. MRI/Spine Thoracic (Routine) IMPRESSION: 1. Multilevel degenerative disc disease and spondylosis of the thoracic spine with neural fo raminal narrowing and acquired canal stenosis, as described. 2. Unilateral small right kidney possibly related to chronic renal insufficiency. 3. Questionable right upper lobe pulmonary mass. Follow-up imaging of the chest is suggested for further evaluation. Electronically Signed: Kadie Dailey MD at 11:55 EST , Service support [phone], CC: Ira Taylor MD; Shasha Barker MD Central Supply Manager: Signed 29-May-2016 Dexa Bone Density Study (HP) Result: Comments: See Note; NOTES: [facility] Imaging Services [address] [place] [address] Verdana 4d Dexa Bone Density Study () MR#: [id number] Acct: [id number] Name: ELISSA BLACKWOOD Rep #: [id number] : 1960 F 55 From: Aguilar Joaquin MD PCP: Shasha Barker MD Status: REG CLI Study: Dexa Bone Density Study () Date of Exam: 05/29/16 Exam# [id number] Ordering Dr: Shasha Barker MD STUDY: DUAL ENERGY X-RAY ABSORPTIOMETRY / DXA REASON FOR EXAM: Female, 55 years old. The patient is postmenopausal. Loss of height. TECHNIQUE: Bone Mineral Density (BMD) measurements of lum bar spine and bilateral hips were obtained. COMPARISON: None. FINDINGS: Lumbar Spine (L1-L4): g/cm2 (1.351) / T-score (1.5) / Z-score (2.2) Findings are suggestive of normal bone density with a low fracture risk. Left Femur Total: g/cm2 (1.109) / T-score (0.8) / Z-score (1.4) Left Femoral Neck: g/cm2 (1.0 93) / T-score (0.4) / Z-score (1.3) Right Femur Total: g/ cm2 (1.123) / T-score (0.9) / Z-score (1.5) Right Femoral Neck: g/cm2 (1.133) / T-score (0.7) / Z-score (1.6) HPBD/Dexa Bone Density Study (HP) IMPRESSION: The patient is considered normal as outlined below according to World Oral Organization (WHO) criteria with a low fracture risk. Reference Information: The T-score is the number of standard deviations above or below the standard which is normal for young adults at their peak bone mineral density. The World Health Organization (WHO) interprets the T-sc ores as follows: Above -1 Normal bone density Between -1 and -2.5 Osteopenia Equal to / or below -2.5 Osteoporosis As a practical clinical guideline, osteopenia may be graded as follows: Mild -1 throu gh -1.5 Moderate -1.6 through -2.0 Severe -2.1 through -2.4 The Z-score is the number of standard deviations above or below age-matched controls. A Z-score of less than -1.5 would be considered abnorma l. References: 1. NIH Osteoporosis and Related Bone Diseases http://www.osteo.org 2. International Society for Clinical Densitometry http://www.iscd.org 3. National Osteoporosis Foundation http://www.n of.org Electronically Signed: Aguilar Joaquin MD at 13:27 EST Tel [phone], Service support [phone], CC: Shasha Barker MD Central Supply Manager: Signed 29-May-2016 SCREENING MAMM (CAD), BILAT Result: Comments: See Note; NOTES: [facility] Imaging Services [address] [place] [address] Verdana 4d SCREENING MAMM (CAD), BILAT MR#: [id number] Acct: [id number] Name: TIN BLACKWOOD Rep #: [id number] : 1960 F 55 From: Aguilar Joaquin MD PCP: Shasha Barker MD Status: REG CLI Study: SCREENING MAMM (CAD), BILAT Date of Exam: 05/29/16 Exam# [id number] Ordering Dr: Yoana Barker MD MAMMOGRAPHY - BILATERAL SCREENING REASON FOR EXAM: Female, 55 years old. Routine annual screening examination. PERTINENT HISTORY: Non-contributory. TECHNIQUE: Digital bilateral breast phong ( 3D mammographic acquisition) in the CC and MLO projections. 2-D mediolateral oblique (MLO) and craniocaudad (CC) views of both breasts were obtained. CAD: Full Field Digital Mammography with Computer Ad ded Detection was performed. COMPARISON: Comparison is made with prior study dated September 01, 2006 and August 26, 2006. FINDINGS: Breast Composition: There are scattered areas of fibroglandular density. There are no dominant masses or suspicious calcifications. No other significant abnormalities are identified. There has been no significant change since the prior kashif dy. HPBI/SCREENING MAMM (CAD), BILAT IMPRESSION: Stable bilateral screening mammogram. Yearly follow-up mammogram recommended. (A) ASSESSMENT CATEGORY: BIRADS Category 1: Negative. A letter regarding these results will be sent to the patient by the facility within 30 days. Approximately 10% of breast cancer s are not detected by mammography. A normal mammogram should not delay biopsy of a clinically suspicious abnormality. [id number] Electronically Signed: Aguilar Joaquin MD at 15:18 EST Tel [phone], Service support [phone], CC: Shasha Barker MD Central Supply Manager: Signed 29-Nov-2015 NCS and/or EMG Patient Result: Comments: See Note; NOTES: [facility] Pulmonary Services/Neurology [address] [place] [address] NCS and/or EMG Patient MR#: [id number] Acct: [id number] Name: TIN BLACKWOOD Rep #: [id number] : 1960 54 From: Lucas Kiser MD Referring Dr: More Taylor MD Status: REG CLI Ordering Dr: More Taylor MD Date: 11/27/15 Location: PSN Sex: F C DATE OF SE RVICE: 11/27/2015 INTRODUCTION: This is a nerve conduction study of the bilateral upper extremities and an EMG of the left upper extremity on this 54-year-old female with a history of rheumatoid art hritis, fibromyalgia and bilateral carpal tunnel syndrome. Bilateral upper extremity sensory and motor nerve conduction studies were performed demonstrating prolonged median motor distal latencies t o a mild extent, with preserved, amplitudes and conduction velocities. The ulnar motor and sensory and radial sensory responses are normal. The median and ulnar F waves are symmetrically preserved. Left upper extremity EMG was performed including the first dorsal interosseous, abductor pollicis brevis, brachioradialis, biceps, triceps, and deltoideus muscles. All muscles demonstrated normal inse rtional activity with absence of pathologic spontaneous activity. Motor unit potential recruitment pattern and amplitude was normal. IMPRESSION: 1. Abnormal nerve conduction study of the bilateral u pper extremities consistent with mild carpal tunnel syndrome bilaterally, which is likely a chronic finding. 2. Abnormal EMG of the left upper extremity without evidence of radiculopathy. Lucas hand MD T: NTS JOB: [id number] 11/29/15 0959 <Electronically signed by Lucas Kiser MD> Date Lucas Kiser MD CC: More Taylor MD; Shasha Barker MD; Lucas Kiser MD Date Dictated: 11/27/15 1145 Date Transcribed: 11/27/15 114 Central Supply Manager: Signed 12-Oct-2015 Spine Lumbar (Routine) Result: Comments: See Note; NOTES: [facility] Imaging Services [address] [place] [address] Verdana 4d Spine Lumbar (Routine) MR#: [id number] Acct: [id number] Name: TIN BLACKWOOD Rep #: [id number] : 1960 F 54 From: Nabeel Bernabe MD PCP: Shsaha Barker MD Status: REG CLI Study: Spine Lumbar (Routine) Date of Exam: 10/12/15 Exam# [id number] Ordering Dr: More Taylor MD STUDY: MRI LUMBAR SPINE WITHOUT CONTRAST REASON FOR EXAM: Female, 54 years old. Low back pain and radiculopathy TECHNIQUE: Standardized fat and water weighted pulse sequences were obt ained in the sagittal and axial planes. COMPARISON: None FINDINGS: T12-L1: Normal endplates. Normal disc height, hydration and morphology. Normal bilateral fa cet joints. Normal central canal and bilateral lateral recesses. Normal bilateral intervertebral neural foramina. Normal lumbar lordosis. There is moderate levoscoliosis Normal conus medullaris L1 -2: Normal endplates. Normal disc height, hydration and morphology. Normal bilateral facet joints. Normal central canal and bilateral lateral recesses. Normal bilateral intervertebral neural foramina. L2-3: Normal endplates. Normal disc height, hydration and small left posterolateral disc protrusion.. Normal bilateral facet joints. Normal central canal. Mild left lateral recess encroachment. Nor mal bilateral intervertebral neural foramina. L3-4: Normal endplates. Normal disc height, hydration and mild annular bulge.. Mild facet arthropathy.. Normal central canal. Mild bilateral recess enc roachment Normal bilateral intervertebral neural foramina. L4-5: Degenerative endplate changes. Narrowed disc space with desiccation of the disc and moderate bulging of the annulus. Bilateral facet arthropathy slightly more pronounced on the left. Moderate right lateral recess and neural foraminal stenosis with more severe narrowing on the left L5-S1: Narrowed disc space with degenerative endpl ate changes. There is desiccation of the disc and moderate annular bulge. There is bilateral facet arthropathy more pronounced on the left.. Normal central canal. Moderate right lateral recess and ne ural foraminal encroachment with more severe narrowing on the left Normal visualized sacral ala. Normal visualized paraspinous soft tissue structures. IMPRESS ION: Moderate to severe spinal stenosis at L4-5 and L5-S1 more pronounced on the left secondary to bulging annuli facet arthropathy and thickening of ligamenta flava Other findings as above Electr onically Signed: Nbaeel Bernabe MD at 20:50 EDT , Service support [phone], CC: More Taylor MD; Shasha Barker MD Central Supply Manager: Signed 12-Oct-2015 Lumbar Spine 2 or 3 Views Result: Comments: See Note; NOTES: [facility] Imaging Services [address] [place] [address] Verdana 4d Lumbar Spine 2 or 3 Views MR#: [id number] Acct: [id number] Name: TIN LLOYD Rep #: [id number] : 1960 F 54 From: Smith Delaney MD PCP: Shasha Barker MD Status: REG CLI Study: Lumbar Spine 2 or 3 Views Date of Exam: 10/12/15 Exam# [id number] Ordering Dr: More Watts MD STUDY: X-RAY - LUMBAR SPINE REASON FOR EXAM: Female, 54 years old. Back and leg pain TECHNIQUE: 3 view(s) of the lumbar spine were obtained. COMPARISON: Prior x-rays of the lum bar spine on 06-13-15 FINDINGS: Normal lumbar lordosis. There is no substantial scoliosis. There is a normal alignment of the vertebrae. Normal vertebral loyda s. There is degenerative disc disease and L4-5 L5-S1 with facet arthrosis. . The soft tissue structures are unremarkable. IMPRESSION: Degenerative disc disease at L4-5 and L5-S1 with facet arthrosis. No significant changes since the prior study. Electronically Signed: Smith Delaney MD, FACR at 8:27 EDT , Service support , RAD/Lumbar Spine 2 or 3 Views IMPRESSION: Degenerative disc disease at L4-5 and L5-S1 with facet arthrosis. No significant changes since the prior study. Electronically Signed: Smith Delaney MD, FACR at 8:27 EDT , Service support [phone], CC: More Taylor MD; Shasha Barker MD Central Supply Manager: Signed 12-Oct-2015 Thoracic Spine 3 Views Result: Comments: See Note; NOTES: [facility] Imaging Services [address] [place] [address] Verdana 4d Thoracic Spine 3 Views MR#: [id number] Acct: [id number] Name: TIN BLACKWOOD Rep #: [id number] : 1960 F 54 From: Smith Delaney MD PCP: Shasha Barker MD Status: REG CLI Study: Thoracic Spine 3 Views Date of Exam: 10/12/15 Exam# [id number] Ordering Dr: More Taylor MD STUDY: X-RAY - THORACIC SPINE REASON FOR EXAM: Female, 54 years old. Back and leg pain TECHNIQUE: 3 view(s) of the thoracic spine were obtained. COMPARISON: None. FINDINGS: Normal kyphosis of the thoracic spine. There is no substantial scoliosis. There is multilevel endplate spondylosis of the thoracic vertebrae. There is multilevel disc sp kimberli narrowing of the thoracic spine. The soft tissue structures are unremarkable. IMPRESSION: Thoracic spondylosis with multilevel degenerative disc disease E lectronically Signed: Smith Delaney MD, FACR at 8:26 EDT , Service support [phone], 0082 RAD/Thoracic Spine 3 Views IMPRESSION : Thoracic spondylosis with multilevel degenerative disc disease Electronically Signed: Smith Delaney MD, FACR at 8:26 EDT , Service support [phone], Fax CC: More Taylor MD; Shasha Barker MD Central Supply Manager: Signed 03-Oct-2015 Chest PA and Lateral Result: Comments: See Note; NOTES: [facility] Imaging Services [address] [place] [address] Verdana 4d Chest PA and Lateral MR#: [id number] Acct: [id number] Name: Hero BLACKWOOD Rep #: [id number] : 1960 F 54 From: Aguilar Joaquin MD PCP: Shasha Barker MD Status: REG CLI Study: Chest PA and Lateral Date of Exam: 10/03/15 Exam# [id number] Ordering Dr: Hortensia Mcnamara i, MD STUDY: X-RAY CHEST REASON FOR EXAM: Female, 54 years old. History of rheumatoid arthritis. TECHNIQUE: PA and lateral views of the chest. COMPARISON: Comparison is made with prior s simeondy dated February 27, 2015. FINDINGS: Since prior study, there has been a marked improvement of the interstitial disease at the lung bases. Minimal linear dens ities persist. There is no demonstrated pleural abnormality. Normal size heart. Normal mediastinum and richard. Normal visualized pulmonary arteries. Normal visualized aortic arch and descending thorac ic aorta. There are diffuse degenerative changes of the visualized thoracic spine. Normal visualized ribs, clavicles, and shoulders. There is no demonstrated abnormality of the visualized soft tis linda structures of the upper abdomen. IMPRESSION: Minimal degree of residual increased markings at the lung bases as compared to prior study. Electronically Si gned: Aguilar Joaquin MD at 12:56 EDT Tel [phone], Service support [phone], RAD/Chest PA and Lateral IMPRESSION: Minimal degree of res idual increased markings at the lung bases as compared to prior study. Electronically Signed: Aguilar Joaquin MD at 12:56 EDT Tel [phone], Service support [phone], Fax CC: Shasha Barker MD; Hortensia Tinajero MD Central Supply Manager: Signed 05-Sep-2015 Kidney and Bladder Result: Comments: See Note; NOTES: [facility] Imaging Services [address] [place] [address] Verdana 4d Kidney and Bladder MR#: [id number] Acct: [id number] Name: KARINA BLACKWOOD ISMALISSA Rep #: [id number] : 1960 F 54 From: Aguilar Joaquin MD PCP: Shasha Barker MD Status: REG CLI Study: Kidney and Bladder Date of Exam: 09/05/15 Exam# [id number] Ordering Dr: Sacha Barker MD STUDY: RENAL ULTRASOUND - COMPLETE REASON FOR EXAM: Female, 54 years old. Abnormality of the right kidney. TECHNIQUE: Ultrasound evaluation of the kidneys was performed with real-time and static isabel-scale imaging. COMPARISON: None. FINDINGS: RIGHT KIDNEY: with mild renal hypertrophy. The right kidney measures 8.3 cm x 4.0 cm x 3.6 cm. There i s diffuse thinning of the renal cortex. The renal cortex measures 0.9 cm. The right kidney is slightly lobulated. There is no right renal mass or cyst. There are no right renal calculi. There is no r ight hydronephrosis. DISTAL RIGHT URETER: There is non-visualization of the distal right ureter. There is no demonstrated right ureterovesical junction calculus. There is a visualized right ureteral jet. LEFT KIDNEY: Normal location of the left kidney, which is normal in size. The left kidney measures 11.5 cm x 5.7 cm x 6.3 cm. There is a normal cortex of the left kidney. The renal cortex vijay ures 1.8 cm. There is no left renal mass or cyst. There are no left renal calculi. There is no left hydronephrosis. DISTAL LEFT URETER: There is non- visualization of the distal left ureter. There i s no demonstrated left ureterovesical junction calculus. There is a visualized left ureteral jet. BLADDER: There is a normal wall thickness of the distended urinary bladder. There is no demonstrated mass within the urinary bladder. There are no demonstrated bladder calculi. IMPRESSION: Mild atrophy of the left kidney with parenchymal thinning and mild lobu lation. Electronically Signed: Aguilar Joaquin MD at 10:56 EDT Tel [phone], Service support [phone], CC: Shasha Barker MD Central Supply Manager: Signed 22-Jun-2015 Nuclear Stress Test - Chemical Result: Comments: See Note; NOTES: [facility] Imaging Services [address] [place] [address] Verda 4d Nuclear Stress Test - Chemical MR#: [id number] Acct: [id number] N miguel: TIN BLACKWOOD Rep #: [id number] : 1960 54 From: Dusty Lund MD Primary Care: Shasha Barker MD Status: REG CLI Ordering Dr: Shasha Barker MD Sex: F C DATE OF SERVICE: PHARMACOLOGIC MYOCARDIAL PERFUSION STRESS TEST: Resting EKG demonstrates normal sinus rhythm with a rate of 91 beats per minute. Normal intervals are noted. Next 0.4 mg of regadenoson was infused per usual protocol followed by rapid intravenous saline flush injection. Continuous EKG monitoring was performed. The maximum heart rate attained was 98 beats, which was 58% of maximum predicted heart rate. The maximu m workload attained was 1 MET. At rest, there were no ST or T-wave changes noted to suggest abnormal flow reserve. At peak infusion, no ST or T-wave changes were noted to suggest abnormal flow reserve . The resting blood pressure was 146/98 with a final blood pressure of 118/86. No clinical angina was noted. MYOCARDIAL PERFUSION PROTOCOL: 14.1 mCi of sestamibi was injected at rest. 0.4 mg of rega denoson was infused per usual protocol. At peak infusion 40.7 mCi of sestamibi was injected. Stress images were obtained. Stress and rest images were reconstructed and compared in the short axis, maximilian tical long and horizontal long axes. Gated images were also obtained. PERFUSION SPECT ANALYSIS: Review of the images demonstrated normal uptake of tracer noted in all areas of the myocardium. The re sting images similarly demonstrated normal uptake of tracer noted in all areas of the myocardium and no areas of reversibility are noted to suggest ischemia. GATED SPECT ANALYSIS: The gated ejection fraction is noted to be 71%. CONCLUSION: 1. Normal pharmacologic myocardial perfusion stress test. 2. Preserved ejection fraction. Dusty Lund MD T: [facility] JOB: [id number] 06/26/15 1259 & #60;Electronically signed by Dusty Lund MD> Date Dusty Lund MD CC: Shasha Barker MD Date Dictated: 06/22/151819 Date Transcribed: 06/22/151819 Central Supply Manager: Signed 13-Jun-2015 Lumbar Spine 2 or 3 Views Result: Comments: See Note; NOTES: [facility] Imaging Services [address] [place] [address] Verdana 4d Lumbar Spine 2 or 3 Views MR#: [id number] Acct: [id number] Name: TIN LLOYD Rep #: [id number] : 1960 F 54 From: Smith Delaney MD PCP: Shasha Braker MD Status: REG CLI Study: Lumbar Spine 2 or 3 Views Date of Exam: 06/13/15 Exam# [id number] Ordering Dr: More Watts MD STUDY: X-RAY - LUMBAR SPINE REASON FOR EXAM: Female, 54 years old. Pain radiating down to left leg TECHNIQUE: 3 view(s) of the lumbar spine were obtained. COMPARISON: None ___ FINDINGS: Normal lumbar lordosis. There is no substantial scoliosis. There is a normal alignment of the vertebrae. Normal vertebral bodies. There is degenerative d isc disease with disc space narrowing at L4-5 and L5-S1.. The soft tissue structures are unremarkable. IMPRESSION: Degenerative disc disease at L4-5 and L5-S1. Electronically Signed: Smith Delaney MD, FACR at 11:06 EST , Service support [phone], RAD/Lumbar Spine 2 or 3 Views IM PRESSION: Degenerative disc disease at L4-5 and L5-S1. Electronically Signed: Smith Delaney MD, FACR at 11:06 EST , Service support [phone], CC: More Taylor MD; Shasha Barker MD Central Supply Manager: Signed 13-Jun-2015 Thoracic Spine 3 Views Result: Comments: See Note; NOTES: [facility] Imaging Services [address] [place] [address] Verdana 4d Thoracic Spine 3 Views MR#: [id number] Acct: [id number] Name: TIN BLACKWOOD Rep #: [id number] : 1960 F 54 From: Smith Delaney MD PCP: Shasha Barker MD Status: REG CLI Study: Thoracic Spine 3 Views Date of Exam: 06/13/15 Exam# [id number] Ordering Dr: More Taylor MD ADDENDUM by Smith Delaney MD on 06/14/15 at 1105 ADDENDUM TECHNIQUE: 3 view(s) o f the thoracic spine were obtained. Electronically Signed: Smith Delaney MD, FACR at 11:05 EST , Service support [phone], 06/14/15 1105 Date cc: More Taylor MD; Shasha Barker MD * Signed STUDY: X-RAY - THORACIC SPINE REASON FOR EXAM: Female, 54 years old. Back pain, left leg pain TECHNIQUE: view(s) of the thor acic spine were obtained. COMPARISON: None. FINDINGS: Normal kyphosis of the thoracic spine. There is no substantial scoliosis. There is multilevel endplate sp ondylosis of the thoracic vertebrae. There is multilevel disc space narrowing of the thoracic spine. The soft tissue structures are unremarkable. IMPRESSION: T horacic spondylosis Electronically Signed: Smith Delaney MD, FACR at 11:05 EST , Service support [phone], RAD/Thoracic S pine 3 Views IMPRESSION: Thoracic spondylosis Electronically Signed: Smith Delaney MD, FACR at 11:05 EST , Service support [phone], CC: More Taylor MD; Shasha Barker MD Central Supply Manager: Signed 13-Jun-2015 Thoracic Spine 3 Views Result: Comments: See Note; NOTES: [facility] Imaging Services [address] [place] [address] Verdana 4d Thoracic Spine 3 Views MR#: [id number] Acct: [id number] Name: TIN BLACKWOOD Rep #: [id number] : 1960 F 54 From: Smith Delaney MD PCP: Shasha Barker MD Status: REG CLI Study: Thoracic Spine 3 Views Date of Exam: 06/13/15 Exam# [id number] Ordering Dr: More Taylor MD STUDY: X-RAY - THORACIC SPINE REASON FOR EXAM: Female, 54 years old. Back pain, left leg pain TECHNIQUE: view(s) of the thoracic spine were obtained. COMPARISON: None. FINDINGS: Normal kyphosis of the thoracic spine. There is no substantial scoliosis. There is multilevel endplate spondylosis of the thoracic vertebrae. There is multilevel di sc space narrowing of the thoracic spine. The soft tissue structures are unremarkable. IMPRESSION: Thoracic spondylosis Electronically Signed: Smith hancock MD, FACR at 11:05 EST , Service support [phone], RAD/Thoracic Spine 3 Views IMPRESSION: Thoracic spondylosis Electronic ally Signed: Smith Delaney MD, FACR at 11:05 EST , Service support [phone], CC: More Taylor MD; Shasha Barker MD Central Supply Manager: Signed 08-Jun-2015 EKG ([id number]) Result: [MEASUREMENTS ANALYSIS] Date of Test: 06/08/2015 13:15:12; Heart Rate: 96; AK Interval: 130; QRS: 88; QT Interval: 340; Corrected QT Interval (QTc): 403; P Wave Irving: 48; QRS Wave Irving: 32; T Wave Irving: 36; Blood Pressure: 120/80 [ECG DIAGNOSTIC STATEMENTS] Date of Test: 06/08/2015 13:15:12; Summary: Sinus Rhythm WITHIN NORMAL LIMITS [MEASUREMENTS ANALYSIS] Date of Test: 06/08/2015 13:14:43; Heart Ra te: 97; AK Interval: 126; QRS: 88; QT Interval: 340; Corrected QT Interval (QTc): 404; P Wave Irving: 51; QRS Wave Irving: 31; T Wave Irving: 40; Blood Pressure: 120/80 [ECG DIAGNOSTIC STATEMENTS] Date of Supriya t: 06/08/2015 13:14:43; Summary: Sinus Rhythm WITHIN NORMAL LIMITS 27-Feb-2015 Chest PA and Lateral Result: Comments: See Note; NOTES: [facility] Imaging Services [address] [place] [address] Verdana 4d Chest PA and Lateral MR#: [id number] Acct: [id number] Name: Hero BLACKWOODVIOLETAngelita Rep #: [id number] : 1960 F 54 From: Aguilar Joaquin MD PCP: Shasha Barker MD Status: REG CLI Study: Chest PA and Lateral Date of Exam: 02/27/15 Exam# [id number] Ordering Dr: Ophelia Boogie STUDY: X-RAY CHEST REASON FOR EXAM: Female, 54 years old. The patient has a history of chronic interstitial lung disease. Chronic shortness of breath. TECHNIQUE: PA and lateral views of th e chest. COMPARISON: Comparison is made with prior study dated February 12, 2015. FINDINGS: Once again, there is evidence of diffuse bilateral interstitial scar ring worst at the lung bases. Since prior study, the fetus received a bilateral infiltrates have improved. Residual changes persist in the peripheral aspect of the right lower lobe. There is no demon strated pleural abnormality. Normal size heart. Normal mediastinum and richard. Normal visualized pulmonary arteries. There is atherosclerotic tortuosity of the aortic arch and descending thoracic aor ta. Normal visualized thoracic spine. Normal visualized ribs, clavicles, and shoulders. There is no demonstrated abnormality of the visualized soft tissue structures of the upper abdomen. IMPRESSION: Persistent interstitial disease in keeping with known scarring. Improved aeration of both lungs with residual infiltrate in the peripheral aspect of the rig ht lung. Electronically Signed: Aguilar Joaquin MD at 13:45 EDT Tel [phone], Service support [phone], RAD/Chest PA and Lateral IMPRES TABBY: Persistent interstitial disease in keeping with known scarring. Improved aeration of both lungs with residual infiltrate in the peripheral aspect of the right lung. Electronically Signed: Darryl Joaquin MD at 13:45 EDT Tel [phone], Service support [phone], CC: Ophelia Boogie; Shasha Barker MD Central Supply Manager: Signed 05-Feb-2015 Chest PA and Lateral Result: Comments: See Note; NOTES: [facility] Imaging Services [address] [place] [address] Radiology Report MR#: [id number] Acct: [id number] Name: TIN BLACKWOOD Rep #: [id number] : 1960 F 54 From: Vega Payan MD PCP: Shasha Barker MD Status: REG CLI Study: Chest PA and Lateral Date of Exam: 02/05/15 Exam# [id number] Ordering Dr: Ophelia Boogie STUDY: X-RAY C HEST REASON FOR EXAM: Female, 54 years old. Bronchitis TECHNIQUE: PA and lateral views of the chest. COMPARISON: None. FINDINGS: Bilateral areas of patchy density are seen throughout the lungs. There is no demonstrated pleural abnormality. Normal size heart. Normal mediastinum and richard. Normal visualized pulmonary arteries. There is atherosclerotic to rtuosity of the aortic arch and descending thoracic aorta. There are diffuse degenerative changes of the visualized thoracic spine. There is degenerative osteoarthritis of the bilateral shoulders. There is no demonstrated abnormality of the visualized soft tissue structures of the upper abdomen. IMPRESSION: Findings are consistent with bilateral interstit ial pneumonia. Recommend followup till clear. Electronically Signed: Vega Payan MD at 17:03 EDT Tel [phone], Service support [phone], [phone] RAD/Chest PA and Lateral IMPRESSION: 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 Recommend followup till clear. Electronically Signed: Vega Payan MD a t 17:03 EDT Tel [phone], Service support [phone], CC: Ophelia Boogie; Shasha Barker MD Central Supply Manager: Signed 06-Nov-2014 Operative Report Result: Comments: See Note; NOTES: [facility] Medical Records Department [address] [place] [address] Operative Report MR#: [id number] Acct: [id number] Name: TIN BLACKWOOD Rep #: [id number] : 1960 53 From: Allie Bales MD PCP: Shasha Barker MD Status: [facility] DATE OF SERVICE: 11/06/2014 DATE OF SERVICE: November 06, 2014 PREOPERATIVE DIAGNOSES: Menorrhagia and thickened endometrium. PREOPERATIVE DIAGNOSES: Menorrhagia and thickened endometrium. PROCEDURES: Dilatation and curettage and hysteroscopy. SURGEON: Allie Bales M.D. ESTIMATED BLOOD LOSS: Minimal. FLUIDS: Lactated Ringer's. MEDICATIONS: Include 10 mL of local lidocaine to the cervix along with clindamycin and gentamicin IV preoperatively. ANESTHESIA: MAC anesthetic along with the local lidocaine. URINE OUTPUT: 200 mL of clear urine. INDICATION: The patient is a 53-year-old white female, who presents to the office with increased severity of menorrhagia over the last fe w months. The patient had post menses ultrasound revealing thickened endometrium despite the heavy periods. She was consented for and accepted the risks of procedures of D and C, hysteroscopy. DESCR IPTION OF PROCEDURE: On the day of surgery, the patient was taken to the OR after being without food and water from midnight the night before. She underwent a MAC anesthetic. Once found to be adequat e, she was placed in dorsal lithotomy position via the George stirrups, prepped, draped in normal sterile fashion. Bladder emptied of all remaining urine with a straight cath. The weighted speculum to the vagina. Anterior lip of the cervix was grasped and elevated. Cervix was injected with 10 mL of the local lidocaine to the 4 quadrants of the cervix and the patient tolerated well. Uterus was sound ed to 9 cm in a somewhat anteflexed position and then the cervical os was easily dilated to accommodate a 5 mm hysteroscope. A 5 mm hysteroscope was placed into the endometrial cavity. ____ large ellie unt of tissue being noted mainly on the posterior portion of that endometrial cavity. Removal of the hysteroscope was replaced by sharp curettage and gathering of all that tissue, which was sent away for pathological evaluation. Hysteroscope was once again placed into the endometrial cavity. ____ pieces of endometrium were noted. Otherwise all had been detached from the endometrial cavity. Polyp f orceps were then used to remove this floating tissue. All instruments were removed from the vagina. Sponge, instrument counts correct x2. The patient awakened in stable condition, taken to recovery ro om to be discharged home. Will follow up in the office in 1-2 weeks' time. Allie Bales MD T: [facility] JOB: [id number] 11/06/14 1429 <Electronically signed by Allie Bales MD> Raul e Allie Bales MD CC: Allie Bales MD; Shasha Barker MD Date Dictated: 11/06/14 1231 Date Transcribed: 11/06/14 1231 Central Supply Manager: Signed 06-Nov-2014 Discharge Instruction Result: Comments: See Note; NOTES: [facility] Medical Records Department [address] [facility] [place] [address] Instructions for Home/Discharge Instructions 11/06/14 1204 MR#: [id number] ct: [id number] Name: TIN BLACKWOOD Rep #: [id number] : 1960 53 From: Allie Bales MD PCP: Shasha Barker MD Status: REG [facility] [place] Discharge Diet: No Restrictions Discharge Activity: Return to Normal Activity, May Shower, May Take a Tub Bath - in 2 weeks. Return to work on:: 11/07/14 May shower in (days): 0 - NOW May resume sexual activity in: 1- 2 weeks Weight Bearing Status: Full weight bearing Lifting Restrictions: NO RESTRICTION Call your doctor if you observe: Fever of 101 or Higher, Inability to urinate, Inability to have a bowel movement, Using more than one pad per hour, Uncon trolled pain Allergies/Adverse Reactions: Allergies ampicillin Allergy (Verified 10/10/13 22:22) Unknown Medications to take at Discharge Hydrocodone/Acetaminophen [Vicodin 5-300 mg Tablet] 1 tablet PO BID 10/10/13 Pregabalin [Lyrica] 75 mg PO DAILY 10/10/13 BuPROPion (SR) [Wellbutrin Sr] 150 mg PO DAILY 10/30/14 Duloxetine Hcl [Cymbalta] 60 mg PO DAILY 10/30/14 Hydroxychloroquine [Plaqu enil] 200 mg PO BIDCM 10/30/14 Imipramine HCl [Tofranil] 25 mg PO QHS 10/30/14 Losartan/Hydrochlorothiazide [Hyzaar 100-12.5 Tablet] 1 tab PO DAILY 10/30/14 Omeprazole [Prilosec] 20 mg PO BID 5 RX: Folic Acid 2 mg PO BIDCM 10/30/14 RX: Leucovorin Calcium 15 mg PO SA 10/30/14 RX: Methotrexate 20 mg PO FR 10/30/14 RX: Prednisone 20 mg PO DAILY PRN PRN 10/30/14 Zolpidem Tartrate [Ambien Cr ] 12.5 mg PO QHS 10/30/14 Please Follow Up With: Allie Bales When: 1-2 weeks postop 11/06/14 1206 <Electronically signed by Allie Bales MD> Date Allie Bales MD CC: Shasha Barker MD 06-Nov-2014 Operative Report Result: Comments: See Note; NOTES: [facility] Medical Records Department [address] [place] [address] Operative Report 11/06/14 1202 MR#: [id number] Acct: [id number] Name: TIN BLACKWOOD Rep #: [id number] : 1960 53 From: Allie Bales MD PCP: Shasha Barker MD Status: REG SD Y Location: [place] [address] Operative Report (Blank) Date of Procedure: 11/06/14 Preop: Effie rrhagia, thickened endometrium Postop: Same Procedure: D and C, hysteroscopy Surgeon: Amairani EBL: minimal Fluids: Lactated ringers Meds: 10cc local Lidocaine to cervix, Clindamycin and Gent amycin IV preop Anesthesia: MAC + local Lidocaine Urine: 200cc clear urine 11/06/14 1204 <Electronically signed by Allie Bales MD> Date Allie Bales MD CC: Allie Bales MD; Shasha Barker MD Signed 24-Jul-2014 Transvaginal Non- Result: Comments: See Note; NOTES: [facility] Imaging Services [address] [place] [address] Ultrasound Report MR#: [id number] Acct: [id number] Name: TIN BLACKWOOD Rep #: [id number] : 1960 F 53 From: Aguilar Joaquin MD PCP: Shasha Barker MD Status: REG CLI Study: Transvaginal Non- Date of Exam: 07/24/14 Exam# [id number] Ordering Dr: Ophelia Boogie STUDY: ULTRASOUND OF THE FEMALE PELVIS - COMPLETE REASON FOR EXAM: Female, 53 years old. LMP: July 09, 2014. Pelvic pain. TECHNIQUE: Transabdominal and Transvaginal TECHNICAL QUALITY: Adequate. COMPAR PAYTON: None. FINDINGS: The uterus is anteverted and is in a midline position. The uterus measures 9.8 cm x 5.6 cm x 4.6 cm. There is a Nabothian cyst of the cervi x. The endometrium measures 10 mm in thickness, and is hyperechoic. There is a 5 mm x 5 mm x 3 mm cystic density within the endometrium. 2 fibroids are seen. The largest measures 1.6 cm x 1.6 cm 1.2 cm. I.U.D. - No The right ovary is visualized. The right ovary measures 2.1 cm x 1.4 cm x 0.9 cm. Several small follicles are seen. There is no visualized right adnexal mass or complex lesion. There is normal arterial and normal venous vascularity. The left ovary is visualized. The left ovary measures 3.0 cm x 1.9 cm 1.6 cm. Small follicles are seen within it. There is no visualized left adne xal mass or complex lesion. There is normal arterial and normal venous vascularity. There is no fluid in the cul-de-sac. The distended urinary bladder had a volume of 367 ml at the time of the exa m. IMPRESSION: Fibroids are seen within the uterus. A small cystic area is seen within the endometrium. The endometrium measures 1 cm. Electronically Signed: Aguilar Joaquin MD at 10:36 EDT Tel [phone], Service support [phone], CC: Ophelia Boogie; Shasha Barker MD Central Supply Manager: Signed 24-Jul-2014 Pelvic (Non ) Result: Comments: See Note; NOTES: [facility] Imaging Services [address] [place] [address] Ultrasound Report MR#: [id number] Acct: [id number] Name: TIN BLACKWOOD Rep #: [id number] : 1960 F 53 From: Aguilar Joaquin MD PCP: Shasha Barker MD Status: REG CLI Study: Pelvic (Non ) Date of Exam: 07/24/14 Exam# [id number] Ordering Dr: Ophelia Boogie STUDY: ULTR ASOUND OF THE FEMALE PELVIS - COMPLETE REASON FOR EXAM: Female, 53 years old. LMP: July 09, 2014. Pelvic pain. TECHNIQUE: Transabdominal and Transvaginal TECHNICAL QUALITY: Adequate. COMPARISON : None. FINDINGS: The uterus is anteverted and is in a midline position. The uterus measures 9.8 cm x 5.6 cm x 4.6 cm. There is a Nabothian cyst of the cervix. T he endometrium measures 10 mm in thickness, and is hyperechoic. There is a 5 mm x 5 mm x 3 mm cystic density within the endometrium. 2 fibroids are seen. The largest measures 1.6 cm x 1.6 cm 1.2 cm. I.U.D. - No The right ovary is visualized. The right ovary measures 2.1 cm x 1.4 cm x 0.9 cm. Several small follicles are seen. There is no visualized right adnexal mass or complex lesion. There is normal arterial and normal venous vascularity. The left ovary is visualized. The left ovary measures 3.0 cm x 1.9 cm 1.6 cm. Small follicles are seen within it. There is no visualized left adnexal mass or complex lesion. There is normal arterial and normal venous vascularity. There is no fluid in the cul-de-sac. The distended urinary bladder had a volume of 367 ml at the time of the exam. IMPRESSION: Fibroids are seen within the uterus. A small cystic area is seen within the endometrium. The endometrium measures 1 cm. Electronically Signed: Darryl Joaquin MD at 10:36 EDT Tel [phone], Service support [phone], CC: Ophelia Boogie; Shasha Barker MD Central Supply Manager: Signed 05-Sep-2013 Cerv Spine 4 or 5 Views Result: Comments: See Note; NOTES: [facility] Imaging Services [address] [place] [address] Radiology Report MR#: [id number] Acct: [id number] Name: TIN BLACKWOOD Rep #: [id number] : 1960 F 52 From: Vazquez Kaye MD PCP: Shasha Barker MD Status: REG CLI Study: Cerv Spine 4 or 5 Views Date of Exam: 09/05/13 Exam# [id number] Ordering Dr: More Taylor MD STUDY: X-RAY - CERVICAL SPINE REASON FOR EXAM: Female, 52 years old. Neck and shoulder pain TECHNIQUE: 5 view(s) of the cervical spine were obtained. COMPARISON: 05/19/11 FINDINGS: Normal anterior atlantoaxial articulation. Normal odontoid process. There is reversal of the normal cervical lordosis. There is multi-level endplate spondylosis. There is multi-level dege nerative disc disease with multilevel disc space narrowing. There is multi-level osseous foraminal stenosis. The soft tissue structures are unremarkable. IMPRE SSION: Multilevel degenerative changes, most pronounced at C4-5 and C5-6 with reversal of the lordotic curvature. No significant interval change Electronically Signed: Glenn Kaye MD at 14:28 EDT , Service support [phone], RAD/Cerv Spine 4 or 5 Views IMPRESSION: Multilevel degenerative changes, 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 No significant interval change Electronically Signed: Glenn Kaye MD at 14:28 EDT , Service support [phone] , CC: More Taylor MD; Shasah Barker MD Central Supply Manager: Signed 10-Feb-2013 Hand Min 3 Views Result: Comments: See Note; NOTES: [facility] Imaging Services [address] [place] [address] Radiology Report MR#: [id number] Acct: [id number] Name: TIN BLACKWOOD Rep #: [id number] : 1960 F 52 From: Julio Cannon MD PCP: Status: REG CLI Study: Hand Min 3 Views Date of Exam: 02/10/13 Exam# [id number] Ordering Dr: Shasha Barker MD STUDY: X-RAY - RIGHT HAND RE ASON FOR EXAM: Female, 52 years old. Arthritis TECHNIQUE: 3 view(s) of the hand. COMPARISON: None. FINDINGS: Normal visualized carpal bones and carpal articul ations. Normal carpometacarpal articulation of the thumb. Normal second through fifth carpometacarpal joints. Normal metacarpi. Normal metacarpophalangeal (MCP) joints. Arthrosis of the distal int erphalangeal joint with spurring and joint space narrowing. No erosions. The soft tissue structures are unremarkable. IMPRESSION: Arthritic change with spurrin g and joint space narrowing of the distal interphalangeal joints. Signed: Julio Cannon M.D. February 10, 2013 at 10:35:57 PM EDT [phone] Electronically Signed BP/BP If you are the refe rring physician and would like to consult with the radiologist who provided this interpretation, please contact Julio Cannon M.D. at [phone]. If this radiologist is unavailable, you will be d irected to another radiologist to assist. If you are a patient with a question regarding this report, please contact your referring physician directly. Professional Interpretation Provided By: Sheri woods, Phone , These documents contain legally protected and confidential health information intended only for the use of the individual or entity named above. If yo u are not the intended recipient, you are hereby notified that any disclosure, copying, distribution, or other use of these documents is strictly prohibited. If you have received this information in e rror, please notify the sender immediately and arrange for the return or destruction of these documents. CC: Shasha Barker MD Central Supply Manager: Signed 10-Feb-2013 Hand Min 3 Views Result: Comments: See Note; NOTES: [facility] Imaging Services [address] [place] [address] Radiology Report MR#: [id number] Acct: [id number] Name: TIN BLACKWOOD Rep #: [id number] : 1960 F 52 From: Julio Cannon MD PCP: Status: REG CLI Study: Hand Min 3 Views Date of Exam: 02/10/13 Exam# [id number] Ordering Dr: Shasha Barker MD STUDY: X-RAY - LEFT HAND DELMY SON FOR EXAM: Female, 52 years old. Arthritis TECHNIQUE: 3 view(s) of the hand. COMPARISON: None. FINDINGS: Normal visualized carpal bones and carpal articula tions. Normal carpometacarpal articulation of the thumb. Normal second through fifth carpometacarpal joints. Normal metacarpi. Normal metacarpophalangeal (MCP) joints. Arthrosis of the distal inte rphalangeal joints of the second and third digits with joint space narrowing and spurring. No erosion. No fracture. The soft tissue structures are unremarkable. 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 Signed: Julio Cannon M.D. February 10, 2013 at 10:36:47 PM EDT [phone] Electronically Signed BP/BP If you are the referring physician and would like to consult with the radiologist who provided this interpretation, please contact Julio Cnanon M.D. at [phone]. If this radiologist is unavaila ble, you will be directed to another radiologist to assist. If you are a patient with a question regarding this report, please contact your referring physician directly. Professional Interpretatio n Provided By: Sesamea, Phone , These documents contain legally protected and confidential health information intended only for the use of the individual or entity named above. If you are not the intended recipient, you are hereby notified that any disclosure, copying, distribution, or other use of these documents is strictly prohibited. If you have received th is information in error, please notify the sender immediately and arrange for the return or destruction of these documents. CC: Shasha Barker MD Central Supply Manager: Signed Family History Unknown Family Member Name Dates Details Brother 1 Comments: DM, HTN, Hypercholesterolemia 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 Daughter 1 Comments: Ashwin 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 Father Comments: tumor kidney, diabetes,depression,HTN,high chol, CAD/CAB in 60's 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 First Degree Relatives Comments: Blood disorder, DM, Emotional problems 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 Mother Comments: anxiety. 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 Non Smoker/No Tobacco Use Status: Inactive Tobacco use: Former smoker. Status: Inactive Smoking Status Name Dates Details Current every day smoker Vital Signs Date Test Result Details [id number] Temperature 97.6 f Comments: Method: Temporal Pulse 78 /min Comments: Pattern: Regular Respiration Rate 18 /min Comments: Pattern: Unlabored O2 SAT 98 % Comments: Room air BP Systolic 118 mm[Hg] Comments: Patient Position: Sitting; Cuff Location: Left Arm; Cuff Size: Standard BP Diastolic 78 mm[Hg] Comments: Patient Position: Sitting; Cuff Location: Left Arm; Cuff Size: Standard Weight 182 lb Height 64 in Body Mass Index Calculated 31.24 kg/m2 Body Surface Area Calculated 1.88 m2 :40 Temperature 97.4 f Comments: Method: Temporal Pulse 84 /min Comments: Pattern: Regular Respiration Rate 20 /min Comments: Pattern: Unlabored O2 SAT 97 % Comments: Room air BP Systolic 120 mm[Hg] Comments: Patient Position: Sitting; Cuff Location: Left Arm; Cuff Size: Standard BP Diastolic 80 mm[Hg] Comments: Patient Position: Sitting; Cuff Location: Left Arm; Cuff Size: Standard Weight 179 lb Height 64 in Body Mass Index Calculated 30.72 kg/m2 Body Surface Area Calculated 1.87 m2 :40 Temperature 97.9 f Comments: Method: Temporal Pulse 94 /min Comments: Pattern: Regular Respiration Rate 20 /min Comments: Pattern: Unlabored O2 SAT 97 % Comments: Room air BP Systolic 120 mm[Hg] Comments: Patient Position: Sitting; Cuff Location: Left Arm; Cuff Size: Standard BP Diastolic 80 mm[Hg] Comments: Patient Position: Sitting; Cuff Location: Left Arm; Cuff Size: Standard Weight 179 lb Height 64 in Body Mass Index Calculated 30.72 kg/m2 Body Surface Area Calculated 1.87 m2 :57 Temperature 97.8 f Comments: Method: Temporal Pulse 102 /min Comments: Pattern: Regular Respiration Rate 20 /min Comments: Pattern: Unlabored O2 SAT 97 % Comments: Room air BP Systolic 120 mm[Hg] Comments: Patient Position: Sitting; Cuff Location: Left Arm; Cuff Size: Standard BP Diastolic 78 mm[Hg] Comments: Patient Position: Sitting; Cuff Location: Left Arm; Cuff Size: Standard Weight 181 lb Height 64 in Body Mass Index Calculated 31.07 kg/m2 Body Surface Area Calculated 1.87 m2 :34 Temperature 97.6 f Comments: Method: Temporal Pulse 86 /min Comments: Pattern: Regular Respiration Rate 18 /min Comments: Pattern: Unlabored O2 SAT 98 % Comments: Room air BP Systolic 124 mm[Hg] Comments: Patient Position: Sitting; Cuff Location: Left Arm; Cuff Size: Large BP Diastolic 84 mm[Hg] Comments: Patient Position: Sitting; Cuff Location: Left Arm; Cuff Size: Large Weight 184 lb Height 64 in Body Mass Index Calculated 31.58 kg/m2 Body Surface Area Calculated 1.89 m2 :41 Temperature 97.8 f Comments: Method: Temporal Pulse 94 /min Comments: Pattern: Regular Respiration Rate 20 /min Comments: Pattern: Unlabored O2 SAT 95 % Comments: Room air BP Systolic 122 mm[Hg] Comments: Patient Position: Sitting; Cuff Location: Left Arm; Cuff Size: Standard BP Diastolic 78 mm[Hg] Comments: Patient Position: Sitting; Cuff Location: Left Arm; Cuff Size: Standard Weight 177 lb Height 64 in Body Mass Index Calculated 30.38 kg/m2 Body Surface Area Calculated 1.86 m2 :12 Temperature 97.6 f Comments: Method: Temporal Pulse 104 /min Comments: Pattern: Regular Respiration Rate 20 /min Comments: Pattern: Unlabored O2 SAT 92 % Comments: Room air BP Systolic 120 mm[Hg] Comments: Patient Position: Sitting; Cuff Location: Left Arm; Cuff Size: Standard BP Diastolic 80 mm[Hg] Comments: Patient Position: Sitting; Cuff Location: Left Arm; Cuff Size: Standard Weight 177 lb Height 64 in Body Mass Index Calculated 30.38 kg/m2 Body Surface Area Calculated 1.86 m2 :10 Temperature 97.6 f Comments: Method: Temporal Pulse 97 /min Comments: Pattern: Regular Respiration Rate 24 /min Comments: Pattern: Unlabored O2 SAT 97 % Comments: Room air BP Systolic 124 mm[Hg] Comments: Patient Position: Sitting; Cuff Location: Left Arm; Cuff Size: Large BP Diastolic 84 mm[Hg] Comments: Patient Position: Sitting; Cuff Location: Left Arm; Cuff Size: Large Weight 181 lb Height 64 in Body Mass Index Calculated 31.07 kg/m2 Body Surface Area Calculated 1.87 m2 :21 Temperature 97.6 f Comments: Method: Temporal Pulse 94 /min Comments: Pattern: Regular Respiration Rate 20 /min Comments: Pattern: Unlabored O2 SAT 98 % Comments: Room air BP Systolic 124 mm[Hg] Comments: Patient Position: Sitting; Cuff Location: Left Arm; Cuff Size: Standard BP Diastolic 78 mm[Hg] Comments: Patient Position: Sitting; Cuff Location: Left Arm; Cuff Size: Standard Weight 182 lb Height 64 in Body Mass Index Calculated 31.24 kg/m2 Body Surface Area Calculated 1.88 m2 :07 Temperature 97.6 f Comments: Method: Temporal Pulse 90 /min Comments: Pattern: Regular Respiration Rate 20 /min Comments: Pattern: Unlabored O2 SAT 99 % Comments: 2L O2 BP Systolic 134 mm[Hg] Comments: Patient Position: Sitting; Cuff Location: Left Arm; Cuff Size: Standard BP Diastolic 80 mm[Hg] Comments: Patient Position: Sitting; Cuff Location: Left Arm; Cuff Size: Standard Weight 175 lb Height 64 in Body Mass Index Calculated 30.04 kg/m2 Body Surface Area Calculated 1.85 m2 :11 Temperature 97.4 f Comments: Method: Temporal Pulse 92 /min Comments: Pattern: Regular Respiration Rate 20 /min Comments: Pattern: Unlabored O2 SAT 97 % Comments: Room air BP Systolic 144 mm[Hg] Comments: Patient Position: Sitting; Cuff Location: Left Arm; Cuff Size: Standard BP Diastolic 86 mm[Hg] Comments: Patient Position: Sitting; Cuff Location: Left Arm; Cuff Size: Standard Weight 174 lb Height 64 in Body Mass Index Calculated 29.87 kg/m2 Body Surface Area Calculated 1.84 m2 :10 Temperature 97.6 f Comments: Method: Temporal Pulse 94 /min Comments: Pattern: Regular Respiration Rate 20 /min Comments: Pattern: Unlabored O2 SAT 94 % Comments: Room air BP Systolic 144 mm[Hg] Comments: Patient Position: Sitting; Cuff Location: Left Arm; Cuff Size: Standard BP Diastolic 98 mm[Hg] Comments: Patient Position: Sitting; Cuff Location: Left Arm; Cuff Size: Standard Weight 172 lb Height 64 in Body Mass Index Calculated 29.52 kg/m2 Body Surface Area Calculated 1.83 m2 :28 Comments: orthostaticssupine: 114/68 P 88sittin/68 P 90 no dizzinessstandin/64 P 89 no dizziness Temperature 97.6 f Comments: Method: Temporal Pulse 98 /min Comments: Pattern: Regular Respiration Rate 20 /min Comments: Pattern: Unlabored O2 SAT 99 % Comments: 3L O2 BP Systolic 104 mm[Hg] Comments: Patient Position: Sitting; Cuff Location: Left Arm; Cuff Size: Standard BP Diastolic 70 mm[Hg] Comments: Patient Position: Sitting; Cuff Location: Left Arm; Cuff Size: Standard Weight 165 lb Height 64 in Body Mass Index Calculated 28.32 kg/m2 Body Surface Area Calculated 1.8 m2 :54 Temperature 97.6 f Comments: Method: Temporal Pulse 90 /min Comments: Pattern: Regular Respiration Rate 20 /min Comments: Pattern: Unlabored O2 SAT 97 % Comments: Room air BP Systolic 120 mm[Hg] Comments: Patient Position: Sitting; Cuff Location: Left Arm; Cuff Size: Large BP Diastolic 74 mm[Hg] Comments: Patient Position: Sitting; Cuff Location: Left Arm; Cuff Size: Large Weight 175 lb Height 64 in Body Mass Index Calculated 30.04 kg/m2 Body Surface Area Calculated 1.85 m2 :24 Pulse 95 /min Comments: Pattern: Regular Respiration Rate 16 /min O2 SAT 98 % Comments: Room air BP Systolic 118 mm[Hg] Comments: Patient Position: Sitting BP Diastolic 68 mm[Hg] Comments: Patient Position: Sitting Weight 167 lb Height 64 in Body Mass Index Calculated 28.67 kg/m2 Body Surface Area Calculated 1.81 m2 :18 Temperature 97.6 f Comments: Method: Temporal Pulse 98 /min Comments: Pattern: Regular Respiration Rate 18 /min Comments: Pattern: Unlabored O2 SAT 99 % Comments: Room air BP Systolic 124 mm[Hg] Comments: Patient Position: Sitting; Cuff Location: Left Arm; Cuff Size: Standard BP Diastolic 84 mm[Hg] Comments: Patient Position: Sitting; Cuff Location: Left Arm; Cuff Size: Standard Weight 181 lb Height 64 in Body Mass Index Calculated 31.07 kg/m2 Body Surface Area Calculated 1.87 m2 :28 Temperature 97.6 f Comments: Method: Temporal Pulse 94 /min Comments: Pattern: Regular Respiration Rate 18 /min Comments: Pattern: Unlabored O2 SAT 98 % Comments: Room air BP Systolic 124 mm[Hg] Comments: Patient Position: Sitting; Cuff Location: Left Arm; Cuff Size: Large BP Diastolic 84 mm[Hg] Comments: Patient Position: Sitting; Cuff Location: Left Arm; Cuff Size: Large Weight 183 lb Height 64 in Body Mass Index Calculated 31.41 kg/m2 Body Surface Area Calculated 1.88 m2 :58 Temperature 97.6 f Comments: Method: Temporal Pulse 100 /min Comments: Pattern: Regular Respiration Rate 20 /min Comments: Pattern: Unlabored O2 SAT 98 % Comments: Room air BP Systolic 120 mm[Hg] Comments: Patient Position: Sitting; Cuff Location: Left Arm; Cuff Size: Large BP Diastolic 80 mm[Hg] Comments: Patient Position: Sitting; Cuff Location: Left Arm; Cuff Size: Large Weight 168 lb Height 64 in Body Mass Index Calculated 28.84 kg/m2 Body Surface Area Calculated 1.82 m2 :28 Temperature 97.6 f Comments: Method: Temporal Pulse 99 /min Comments: Pattern: Regular Respiration Rate 20 /min Comments: Pattern: Unlabored O2 SAT 97 % Comments: Room air BP Systolic 124 mm[Hg] Comments: Patient Position: Sitting; Cuff Location: Left Arm; Cuff Size: Standard BP Diastolic 86 mm[Hg] Comments: Patient Position: Sitting; Cuff Location: Left Arm; Cuff Size: Standard Weight 168 lb Height 64 in Body Mass Index Calculated 28.84 kg/m2 Body Surface Area Calculated 1.82 m2 :50 Temperature 97.7 f Pulse 108 /min Comments: Pattern: Regular Respiration Rate 16 /min Comments: Pattern: Unlabored O2 SAT 97 % Comments: Room air BP Systolic 122 mm[Hg] Comments: Patient Position: Sitting; Cuff Location: Left Arm; Cuff Size: Standard BP Diastolic 80 mm[Hg] Comments: Patient Position: Sitting; Cuff Location: Left Arm; Cuff Size: Standard Weight 168.125 lb Height 64 in Body Mass Index Calculated 28.86 kg/m2 Body Surface Area Calculated 1.82 m2 :40 Temperature 97.1 f Pulse 93 /min Comments: Pattern: Regular Respiration Rate 20 /min Comments: Pattern: Unlabored O2 SAT 93 % Comments: Room air BP Systolic 130 mm[Hg] Comments: Patient Position: Sitting; Cuff Location: Left Arm; Cuff Size: Standard BP Diastolic 86 mm[Hg] Comments: Patient Position: Sitting; Cuff Location: Left Arm; Cuff Size: Standard Weight 168.125 lb Height 64 in Body Mass Index Calculated 28.86 kg/m2 Body Surface Area Calculated 1.82 m2 :50 Temperature 98.8 f Comments: Method: Oral Pulse 90 /min Comments: Pattern: Regular Respiration Rate 18 /min O2 SAT 93 % Comments: Room air BP Systolic 118 mm[Hg] Comments: Patient Position: Sitting; Cuff Location: Left Arm; Cuff Size: Standard BP Diastolic 70 mm[Hg] Comments: Patient Position: Sitting; Cuff Location: Left Arm; Cuff Size: Standard Weight 175.6 lb Height 64 in Body Mass Index Calculated 30.14 kg/m2 Body Surface Area Calculated 1.85 m2 :24 Temperature 97.6 f Comments: Method: Temporal Pulse 78 /min Comments: Pattern: Regular Respiration Rate 16 /min Comments: Pattern: Unlabored O2 SAT 98 % Comments: Room air BP Systolic 124 mm[Hg] Comments: Patient Position: Sitting; Cuff Location: Left Arm; Cuff Size: Standard BP Diastolic 72 mm[Hg] Comments: Patient Position: Sitting; Cuff Location: Left Arm; Cuff Size: Standard Weight 175.6 lb Height 64 in Body Mass Index Calculated 30.14 kg/m2 Body Surface Area Calculated 1.85 m2 :18 Temperature 97.6 f Pulse 86 /min Comments: Pattern: Regular Respiration Rate 16 /min Comments: Pattern: Unlabored O2 SAT 98 % Comments: Room air BP Systolic 122 mm[Hg] Comments: Patient Position: Sitting; Cuff Location: Left Arm; Cuff Size: Standard BP Diastolic 80 mm[Hg] Comments: Patient Position: Sitting; Cuff Location: Left Arm; Cuff Size: Standard Weight 180.125 lb Height 64 in Body Mass Index Calculated 30.92 kg/m2 Body Surface Area Calculated 1.87 m2 :08 Temperature 96.8 f Pulse 96 /min Comments: Pattern: Regular Respiration Rate 16 /min Comments: Pattern: Unlabored O2 SAT 96 % Comments: Room air BP Systolic 124 mm[Hg] Comments: Patient Position: Sitting; Cuff Location: Left Arm; Cuff Size: Standard BP Diastolic 82 mm[Hg] Comments: Patient Position: Sitting; Cuff Location: Left Arm; Cuff Size: Standard Weight 180.125 lb Height 64 in Body Mass Index Calculated 30.92 kg/m2 Body Surface Area Calculated 1.87 m2 :46 Comments: received 99.7 on 2nd temp. Temperature 100 f Comments: Method: Oral Pulse 91 /min Comments: Pattern: Regular Respiration Rate 16 /min Comments: Pattern: Unlabored BP Systolic 120 mm[Hg] Comments: Patient Position: Sitting; Cuff Location: Left Arm; Cuff Size: Standard BP Diastolic 70 mm[Hg] Comments: Patient Position: Sitting; Cuff Location: Left Arm; Cuff Size: Standard Weight 177 lb Height 64 in Body Mass Index Calculated 30.38 kg/m2 Body Surface Area Calculated 1.86 m2 :45 Temperature 97.6 f Comments: Method: Temporal Pulse 71 /min Comments: Pattern: Regular Respiration Rate 16 /min Comments: Pattern: Unlabored O2 SAT 95 % Comments: Room air BP Systolic 122 mm[Hg] Comments: Patient Position: Sitting; Cuff Location: Left Arm; Cuff Size: Standard BP Diastolic 74 mm[Hg] Comments: Patient Position: Sitting; Cuff Location: Left Arm; Cuff Size: Standard Weight 180 lb Height 64 in Body Mass Index Calculated 30.9 kg/m2 Body Surface Area Calculated 1.87 m2 :49 Temperature 98.6 f Comments: Method: Oral Pulse 86 /min Comments: Pattern: Regular Respiration Rate 16 /min Comments: Pattern: Unlabored O2 SAT 96 % Comments: Room air BP Systolic 120 mm[Hg] Comments: Patient Position: Sitting; Cuff Location: Left Arm; Cuff Size: Standard BP Diastolic 82 mm[Hg] Comments: Patient Position: Sitting; Cuff Location: Left Arm; Cuff Size: Standard Weight 180 lb Height 64 in Body Mass Index Calculated 30.9 kg/m2 Body Surface Area Calculated 1.87 m2 :02 Temperature 97.7 f Comments: Method: Temporal Pulse 80 /min Comments: Pattern: Regular Respiration Rate 16 /min Comments: Pattern: Unlabored O2 SAT 96 % Comments: Room air BP Systolic 127 mm[Hg] Comments: Patient Position: Sitting; Cuff Location: Left Arm; Cuff Size: Standard BP Diastolic 78 mm[Hg] Comments: Patient Position: Sitting; Cuff Location: Left Arm; Cuff Size: Standard Weight 176 lb Height 64 in Body Mass Index Calculated 30.21 kg/m2 Body Surface Area Calculated 1.85 m2 :14 Temperature 97.8 f Comments: Method: Oral Pulse 76 /min Comments: Pattern: Regular Respiration Rate 18 /min Comments: Pattern: Unlabored BP Systolic 116 mm[Hg] Comments: Patient Position: Sitting; Cuff Location: Left Arm; Cuff Size: Standard BP Diastolic 76 mm[Hg] Comments: Patient Position: Sitting; Cuff Location: Left Arm; Cuff Size: Standard Weight 176 lb Height 64 in Body Mass Index Calculated 30.21 kg/m2 Body Surface Area Calculated 1.85 m2 :14 Temperature 97.1 f Comments: Method: Temporal Pulse 72 /min Comments: Pattern: Regular Respiration Rate 16 /min Comments: Pattern: Unlabored BP Systolic 124 mm[Hg] Comments: Patient Position: Sitting; Cuff Location: Left Arm; Cuff Size: Standard BP Diastolic 72 mm[Hg] Comments: Patient Position: Sitting; Cuff Location: Left Arm; Cuff Size: Standard Weight 176 lb Height 64 in Body Mass Index Calculated 30.21 kg/m2 Body Surface Area Calculated 1.85 m2 :08 Temperature 98.6 f Comments: Method: Oral Pulse 84 /min Comments: Pattern: Regular Respiration Rate 16 /min Comments: Pattern: Unlabored BP Systolic 110 mm[Hg] Comments: Patient Position: Sitting; Cuff Location: Left Arm; Cuff Size: Large BP Diastolic 72 mm[Hg] Comments: Patient Position: Sitting; Cuff Location: Left Arm; Cuff Size: Large Weight 176 lb Height 64 in Body Mass Index Calculated 30.21 kg/m2 Body Surface Area Calculated 1.85 m2 :17 Temperature 97.6 f Comments: Method: Oral Pulse 70 /min Comments: Pattern: Regular Respiration Rate 20 /min Comments: Pattern: Unlabored BP Systolic 120 mm[Hg] Comments: Patient Position: Sitting; Cuff Location: Left Arm; Cuff Size: Standard BP Diastolic 78 mm[Hg] Comments: Patient Position: Sitting; Cuff Location: Left Arm; Cuff Size: Standard Weight 172 lb Height 64 in Body Mass Index Calculated 29.52 kg/m2 Body Surface Area Calculated 1.83 m2 :49 Temperature 98.9 f Comments: Method: Oral Pulse 76 /min Comments: Pattern: Regular Respiration Rate 16 /min Comments: Pattern: Unlabored BP Systolic 132 mm[Hg] Comments: Patient Position: Sitting; Cuff Location: Left Arm; Cuff Size: Standard BP Diastolic 76 mm[Hg] Comments: Patient Position: Sitting; Cuff Location: Left Arm; Cuff Size: Standard Weight 173.2 lb Height 64 in Body Mass Index Calculated 29.73 kg/m2 Body Surface Area Calculated 1.84 m2 :14 Temperature 97.6 f Comments: Method: Oral Pulse 70 /min Comments: Pattern: Regular Respiration Rate 18 /min Comments: Pattern: Unlabored BP Systolic 118 mm[Hg] Comments: Patient Position: Sitting; Cuff Location: Left Arm; Cuff Size: Standard BP Diastolic 74 mm[Hg] Comments: Patient Position: Sitting; Cuff Location: Left Arm; Cuff Size: Standard Weight 165 lb Height 64 in Body Mass Index Calculated 28.32 kg/m2 Body Surface Area Calculated 1.8 m2 :15 Temperature 98 f Comments: Method: Oral Pulse 70 /min Comments: Pattern: Regular Respiration Rate 18 /min Comments: Pattern: Unlabored BP Systolic 120 mm[Hg] Comments: Patient Position: Sitting; Cuff Location: Left Arm; Cuff Size: Standard BP Diastolic 72 mm[Hg] Comments: Patient Position: Sitting; Cuff Location: Left Arm; Cuff Size: Standard Weight 165 lb Height 64 in Body Mass Index Calculated 28.32 kg/m2 Body Surface Area Calculated 1.8 m2 :45 Temperature 99 f Comments: Method: Oral Pulse 68 /min Comments: Pattern: Regular Respiration Rate 16 /min Comments: Pattern: Unlabored BP Systolic 118 mm[Hg] Comments: Patient Position: Sitting; Cuff Location: Left Arm; Cuff Size: Standard BP Diastolic 70 mm[Hg] Comments: Patient Position: Sitting; Cuff Location: Left Arm; Cuff Size: Standard Weight 169 lb Height 64 in Body Mass Index Calculated 29.01 kg/m2 Body Surface Area Calculated 1.82 m2 :56 Temperature 97.6 f Comments: Method: Oral Pulse 78 /min Comments: Pattern: Regular Respiration Rate 18 /min Comments: Pattern: Unlabored BP Systolic 116 mm[Hg] Comments: Patient Position: Sitting; Cuff Location: Left Arm; Cuff Size: Standard BP Diastolic 76 mm[Hg] Comments: Patient Position: Sitting; Cuff Location: Left Arm; Cuff Size: Standard Weight 169 lb Height 64 in Body Mass Index Calculated 29.01 kg/m2 Body Surface Area Calculated 1.82 m2 :49 Temperature 98.2 f Comments: Method: Oral Pulse 76 /min Comments: Pattern: Regular Respiration Rate 18 /min Comments: Pattern: Unlabored BP Systolic 118 mm[Hg] Comments: Patient Position: Sitting; Cuff Location: Left Arm; Cuff Size: Standard BP Diastolic 76 mm[Hg] Comments: Patient Position: Sitting; Cuff Location: Left Arm; Cuff Size: Standard Weight 169 lb Height 64 in Body Mass Index Calculated 29.01 kg/m2 Body Surface Area Calculated 1.82 m2 :49 Temperature 98.1 f Comments: Method: Oral Pulse 68 /min Comments: Pattern: Regular Respiration Rate 18 /min Comments: Pattern: Unlabored BP Systolic 114 mm[Hg] Comments: Patient Position: Sitting; Cuff Location: Left Arm; Cuff Size: Standard BP Diastolic 68 mm[Hg] Comments: Patient Position: Sitting; Cuff Location: Left Arm; Cuff Size: Standard Weight 169 lb Height 64 in Body Mass Index Calculated 29.01 kg/m2 Body Surface Area Calculated 1.82 m2 :30 Temperature 97.5 f Pulse 60 /min Comments: Pattern: Regular Respiration Rate 16 /min Comments: Pattern: Unlabored BP Systolic 110 mm[Hg] Comments: Patient Position: Sitting; Cuff Location: Left Arm; Cuff Size: Standard BP Diastolic 76 mm[Hg] Comments: Patient Position: Sitting; Cuff Location: Left Arm; Cuff Size: Standard :23 Temperature 97.6 f Comments: Method: Oral Pulse 70 /min Comments: Pattern: Regular Respiration Rate 18 /min Comments: Pattern: Unlabored BP Systolic 118 mm[Hg] Comments: Patient Position: Sitting; Cuff Location: Left Arm; Cuff Size: Standard BP Diastolic 78 mm[Hg] Comments: Patient Position: Sitting; Cuff Location: Left Arm; Cuff Size: Standard Weight 169 lb :19 Pulse 68 /min Comments: Pattern: Regular Respiration Rate 18 /min Comments: Pattern: Unlabored BP Systolic 118 mm[Hg] Comments: Patient Position: Sitting; Cuff Location: Left Arm; Cuff Size: Large BP Diastolic 80 mm[Hg] Comments: Patient Position: Sitting; Cuff Location: Left Arm; Cuff Size: Large Weight 169 lb :03 Temperature 99 f Comments: Method: Oral Pulse 72 /min Comments: Pattern: Regular Respiration Rate 18 /min Comments: Pattern: Unlabored BP Systolic 122 mm[Hg] Comments: Patient Position: Sitting; Cuff Location: Left Arm; Cuff Size: Standard BP Diastolic 78 mm[Hg] Comments: Patient Position: Sitting; Cuff Location: Left Arm; Cuff Size: Standard Weight 169 lb :20 Pulse 60 /min Comments: Pattern: Regular Respiration Rate 20 /min Comments: Pattern: Unlabored BP Systolic 1106 mm[Hg] Comments: Patient Position: Sitting; Cuff Location: Left Arm; Cuff Size: Standard BP Diastolic 60 mm[Hg] Comments: Patient Position: Sitting; Cuff Location: Left Arm; Cuff Size: Standard Weight 169 lb :15 Temperature 98.4 f Comments: Method: Oral Pulse 78 /min Comments: Pattern: Regular Respiration Rate 16 /min Comments: Pattern: Unlabored BP Systolic 120 mm[Hg] Comments: Patient Position: Sitting; Cuff Location: Left Arm; Cuff Size: Standard BP Diastolic 80 mm[Hg] Comments: Patient Position: Sitting; Cuff Location: Left Arm; Cuff Size: Standard :35 Pulse 70 /min Comments: Pattern: Regular Respiration Rate 16 /min Comments: Pattern: Unlabored BP Systolic 118 mm[Hg] Comments: Patient Position: Sitting; Cuff Location: Left Arm; Cuff Size: Standard BP Diastolic 78 mm[Hg] Comments: Patient Position: Sitting; Cuff Location: Left Arm; Cuff Size: Standard Weight 169 lb :27 Pulse 72 /min Comments: Pattern: Regular Respiration Rate 16 /min Comments: Pattern: Unlabored BP Systolic 120 mm[Hg] Comments: Patient Position: Sitting; Cuff Location: Left Arm; Cuff Size: Standard BP Diastolic 78 mm[Hg] Comments: Patient Position: Sitting; Cuff Location: Left Arm; Cuff Size: Standard Weight 169 lb Height 0 in Head Circumference 0.00 cm :56 Temperature 98.3 f Comments: Method: Oral Pulse 74 /min Comments: Pattern: Regular Respiration Rate 16 /min Comments: Pattern: Unlabored BP Systolic 118 mm[Hg] Comments: Patient Position: Sitting; Cuff Location: Left Arm; Cuff Size: Standard BP Diastolic 78 mm[Hg] Comments: Patient Position: Sitting; Cuff Location: Left Arm; Cuff Size: Standard Weight 0 lb Height 0 in Head Circumference 0.00 cm :57 Pulse 70 /min Comments: Pattern: Regular Respiration Rate 16 /min Comments: Pattern: Unlabored BP Systolic 120 mm[Hg] Comments: Patient Position: Sitting; Cuff Location: Left Arm; Cuff Size: Large BP Diastolic 80 mm[Hg] Comments: Patient Position: Sitting; Cuff Location: Left Arm; Cuff Size: Large Weight 175 lb Height 0 in Head Circumference 0.00 cm :43 Temperature 97.6 f Comments: Method: Oral Pulse 70 /min Comments: Pattern: Regular Respiration Rate 20 /min Comments: Pattern: Unlabored BP Systolic 122 mm[Hg] Comments: Patient Position: Sitting; Cuff Location: Left Arm; Cuff Size: Standard BP Diastolic 74 mm[Hg] Comments: Patient Position: Sitting; Cuff Location: Left Arm; Cuff Size: Standard Weight 175 lb Height 0 in Head Circumference 0.00 cm :55 Pulse 80 /min Comments: Pattern: Regular Respiration Rate 16 /min Comments: Pattern: Unlabored BP Systolic 112 mm[Hg] Comments: Patient Position: Sitting; Cuff Location: Left Arm; Cuff Size: Standard BP Diastolic 64 mm[Hg] Comments: Patient Position: Sitting; Cuff Location: Left Arm; Cuff Size: Standard Weight 176 lb Height 64 in Body Mass Index Calculated 30.21 kg/m2 Body Surface Area Calculated 1.85 m2 Head Circumference 0.00 cm Results Date Description Value Details [id number]-Ecl-[id number]:00 Tissue Biopsy See Note (Normal) Comments: [facility] [address] [place], [place], [address] Comments: Patient: TIN BLACKWOOD : 1960 (57/F) Acct Num: [id number] Phys: Jose L Torres DDS Unit Num: [id number] Loc: LABSPEC Specimen: [id number] Received: 02/19/18 - 1513 Spec Typ e: Tissue Bx TISSUES 1 TISSUES: TISSUE SURGICALLY REMOVED GROSS DESCRIPTION Received in fixative is one container labeled with the patient's name and designated lip. The sp ecimen consists of a piece of swift mucosal tissue measuring 0.8 x 0.7 x 0.2 cm. The specimen is inked and submitted entirely in one cassette. It will be sectioned at the time of embedding. / JANES:tammy TC:5 CPT: 78433 HEADER OPERATION: Biopsy cheek/lip PRE-OP DIAGNOSIS: Probable fibroma TISSUE SUBMITTED: Biopsy cheek/lip MICROSCOPIC DESCRIPTION Slides are reviewed. MICROSCOPIC DI AGNOSIS Cheek/lip, biopsy: Squamous mucosa with subepithelial fibrosis, consistent with irritation fibroma. SJ:tammy 02/22/18 Signed Jarrod Holland 02/22/18 <signature on file> :19 HgA1C , Office (30579) HgA1C , Office 6.1 % (Normal) Range: 4.6 - 7.1 7-Hji-455640:19 Blood Glucose , Office (96832) Blood Glucose , Office 153 (Normal) :19 Urinalysis, Office (40007) UA - LEUKOCYTE ESTERASE Negative (Normal) UA - NITRITE Negative (Normal) URINE UROBILINGN SRAVANI TIMED Normal mg/dL (Normal) UA - PROTEIN Negative mg/dL (Normal) UA - PH 7 (Normal) UA - BLOOD Negative (Normal) UA - SPECIFIC GRAVITY 1.010 (Normal) UA - KETONES Negative mg/dL (Normal) UA - BILIRUBIN Negative (Normal) UA - GLUCOSE Negative (Normal) 0-Jdc-294706:42 CBC-Complete Blood Cnt No Diff Comments: [facility] [address] [place], [address] MPV 9.7 fL (Normal) Range: 6.2-12.0 PLT 402 K/mm3 (Normal) Range: 150-450 RDW SD 66.2 fL (Abnormal) Range: 35.1-43.9 RDW CV 20.5 % (Abnormal) Range: 11.6-14.6 MCHC 30.4 {g/gl} (Abnormal) Range: 32-36 MCH 26.8 pg (Abnormal) Range: 27.0-32.0 MCV 88.2 fL (Normal) Range: 81-99 HCT 36.5 % (Abnormal) Range: 37-47 HGB 11.1 g/dL (Abnormal) Range: 12.0-15.0 RBC 4.14 {M/mm3} (Abnormal) Range: 4.2-5.4 WBC 8.0 K/mm3 (Normal) Range: 4.4-11.0 4-Srv-582844:42 Differential Comment Comments: [facility] [address] [place], [address] SMEAR COMMENT SCANNED (Normal) Comments: 1+ ANISOCYTOSIS 4-Wkl-558109:42 Liver Profile Comments: Comments: [facility] [address] [place], [address] D BILI 0.14 mg/dL (Normal) Range: 0.00-0.30 T BILI 0.60 mg/dL (Normal) Range: 0.20-1.00 ALT 49 U/L (Normal) Range: 13-56 ALK P 46 U/L (Normal) Range: 45-117 AST 25 U/L (Normal) Range: 15-37 GLOB 3.4 g/dL (Normal) Range: 2.2-4.2 ALB 3.6 g/dL (Normal) Range: 3.2-5.0 T PROT 7.0 g/dL (Normal) Range: 6.4-8.2 09-Hht-821613:21 CBC-Complete Blood Cnt No Diff Comments: [facility] [address] [facility] [address] [place], [place], [id number] MPV 10.2 fL (Normal) Range: 6.2-12.0 PLT 441 K/mm3 (Normal) Range: 150-450 RDW SD 53.2 fL (Abnormal) Range: 35.1-43.9 RDW CV 17.1 % (Abnormal) Range: 11.6-14.6 MCHC 31.0 {g/gl} (Abnormal) Range: 32-36 MCH 26.8 pg (Abnormal) Range: 27.0-32.0 MCV 86.5 fL (Normal) Range: 81-99 HCT 37.7 % (Normal) Range: 37-47 HGB 11.7 g/dL (Abnormal) Range: 12.0-15.0 RBC 4.36 {M/mm3} (Normal) Range: 4.2-5.4 WBC 8.0 K/mm3 (Normal) Range: 4.4-11.0 49-Bzg-804125:21 Liver Profile Comments: [facility] [address] [facility] [place], [place], [id number] D BILI 0.14 mg/dL (Normal) Range: 0.00-0.30 T BILI 0.80 mg/dL (Normal) Range: 0.20-1.00 ALT 50 U/L (Normal) Range: 13-56 ALK P 42 U/L (Abnormal) Range: 45-117 AST 30 U/L (Normal) Range: 15-37 GLOB 3.6 g/dL (Normal) Range: 2.2-4.2 ALB 4.0 g/dL (Normal) Range: 3.2-5.0 T PROT 7.6 g/dL (Normal) Range: 6.4-8.2 4-Hhc-671560:48 HEPATIC FUNCTION PANEL Comments: PATIENT NOT FASTINGPERFORMED BY: [facility] CenterYwowhr4553 [address] [id number] ([address]) ALT (SGPT) 45 [iU]/L (Abnormal) Range: 0-32 AST (SGOT) 33 [iU]/L (Normal) Range: 0-40 Alkaline Phosphatase 39 [iU]/L (Normal) Range: 39-117 Bilirubin, Direct 0.08 mg/dL (Normal) Range: 0.00-0.40 Bilirubin, Total 0.3 mg/dL (Normal) Range: 0.0-1.2 Protein, Total 6.8 g/dL (Normal) Range: 6.0-8.5 :48 T3, FREE (TRIDOTHYRONINE) (55149) Comments: PATIENT NOT FASTINGPERFORMED BY: [facility] CenterLdcwhh8309 [address] [id number] Triiodothyronine (T3), Free 2.6 pg/mL (Normal) Range: 2.0-4.4 :48 T4, FREE (THYROXINE) (71825) Comments: PATIENT NOT FASTINGPERFORMED BY: [facility] [id number] T4,Free(Direct) 0.90 ng/dL (Normal) Range: 0.82-1.77 :48 TSH (20735) Comments: PATIENT NOT FASTINGPERFORMED BY: [facility] [id number] TSH 0.333 {uIU/mL} (Abnormal) Range: 0.450-4.500 :48 Renal function Panel (42670) Comments: PATIENT NOT FASTINGPERFORMED BY: [facility] CenterSqfnve2424 [address] [id number] Albumin 4.6 g/dL (Normal) Range: 3.5-5.5 Phosphorus 4.6 mg/dL (Abnormal) Range: 2.5-4.5 Calcium 10.1 mg/dL (Normal) Range: 8.7-10.2 Carbon Dioxide, Total 25 mmol/L (Normal) Range: 20-29 Comments: Please note reference interval change Chloride 100 mmol/L (Normal) Range: 96-106 Potassium 5.2 mmol/L (Normal) Range: 3.5-5.2 Sodium 143 mmol/L (Normal) Range: 134-144 BUN/Creatinine Ratio 21 (Normal) Range: 9-23 eGFR If Africn Am 62 mL/min/1.73 (Normal) eGFR If NonAfricn Am 54 mL/min/1.73 (Abnormal) Creatinine 1.15 mg/dL (Abnormal) Range: 0.57-1.00 BUN 24 mg/dL (Normal) Range: 6-24 Glucose 118 mg/dL (Abnormal) Range: 65-99 33-Eak-572253:54 CBC-Complete Blood Cnt No Diff Comments: [facility] [address] [facility] [address] [place], [place], [id number] MPV 10.3 fL (Normal) Range: 6.2-12.0 PLT 427 K/mm3 (Normal) Range: 150-450 RDW SD 49.3 fL (Abnormal) Range: 35.1-43.9 RDW CV 15.3 % (Abnormal) Range: 11.6-14.6 MCHC 30.2 {g/gl} (Abnormal) Range: 32-36 MCH 26.9 pg (Abnormal) Range: 27.0-32.0 MCV 89.2 fL (Normal) Range: 81-99 HCT 37.8 % (Normal) Range: 37-47 HGB 11.4 g/dL (Abnormal) Range: 12.0-15.0 RBC 4.24 {M/mm3} (Normal) Range: 4.2-5.4 WBC 7.3 K/mm3 (Normal) Range: 4.4-11.0 78-Cgi-109433:54 Liver Profile Comments: [facility] [address] [place], [place], [id number] D BILI 0.09 mg/dL (Normal) Range: 0.00-0.30 T BILI 0.40 mg/dL (Normal) Range: 0.20-1.00 ALT 49 U/L (Normal) Range: 13-56 ALK P 58 U/L (Normal) Range: 45-117 AST 22 U/L (Normal) Range: 15-37 GLOB 3.4 g/dL (Normal) Range: 2.2-4.2 ALB 3.9 g/dL (Normal) Range: 3.2-5.0 T PROT 7.3 g/dL (Normal) Range: 6.4-8.2 41-Opk-218985:13 Liver Profile Comments: [facility] [address] [place], [id number] D BILI 0.07 mg/dL (Normal) Range: 0.00-0.30 T BILI 0.40 mg/dL (Normal) Range: 0.20-1.00 ALT 49 U/L (Normal) Range: 13-56 Comments: Please note revised ALT reference range mjjgnxvul78/28/2018. ALK P 53 U/L (Normal) Range: 45-117 AST 22 U/L (Normal) Range: 15-37 GLOB 3.3 g/dL (Normal) Range: 2.2-4.2 ALB 4.0 g/dL (Normal) Range: 3.2-5.0 T PROT 7.3 g/dL (Normal) Range: 6.4-8.2 5-Ati-246663:59 CBC-Complete Blood Cnt No Diff Comments: [facility] [address] [place], [id number] MPV 10.4 fL (Normal) Range: 6.2-12.0 PLT 472 K/mm3 (Abnormal) Range: 150-450 RDW SD 51.5 fL (Abnormal) Range: 35.1-43.9 RDW CV 16.0 % (Abnormal) Range: 11.6-14.6 MCHC 31.1 {g/gl} (Abnormal) Range: 32-36 MCH 27.4 pg (Normal) Range: 27.0-32.0 MCV 88.2 fL (Normal) Range: 81-99 HCT 39.6 % (Normal) Range: 37-47 HGB 12.3 g/dL (Normal) Range: 12.0-15.0 RBC 4.49 {M/mm3} (Normal) Range: 4.2-5.4 WBC 9.1 K/mm3 (Normal) Range: 4.4-11.0 :59 Erythrocyte Sed Rate Comments: [address] [place] [place], [address] SED RATE 15 mm/h (Normal) Range: 0-30 97-Cne-742789:22 CBC-Complete Blood Cnt No Diff Comments: [facility] [address] [place], [address] MPV 10.4 fL (Normal) Range: 6.2-12.0 PLT 366 K/mm3 (Normal) Range: 150-450 RDW SD 52.4 fL (Abnormal) Range: 35.1-43.9 RDW CV 16.5 % (Abnormal) Range: 11.6-14.6 MCHC 31.5 {g/gl} (Abnormal) Range: 32-36 MCH 27.9 pg (Normal) Range: 27.0-32.0 MCV 88.5 fL (Normal) Range: 81-99 HCT 38.4 % (Normal) Range: 37-47 HGB 12.1 g/dL (Normal) Range: 12.0-15.0 RBC 4.34 {M/mm3} (Normal) Range: 4.2-5.4 WBC 7.6 K/mm3 (Normal) Range: 4.4-11.0 32-Rts-330546:22 Liver Profile Comments: Comments: [facility] [address] [place], [address] D BILI 0.12 mg/dL (Normal) Range: 0.00-0.30 T BILI 0.60 mg/dL (Normal) Range: 0.20-1.00 ALT 38 U/L (Normal) Range: 13-56 Comments: Please note revised ALT reference range gwbyilzdo00/28/2018. ALK P 53 U/L (Normal) Range: 45-117 AST 31 U/L (Normal) Range: 15-37 GLOB 3.2 g/dL (Normal) Range: 2.2-4.2 ALB 3.7 g/dL (Normal) Range: 3.2-5.0 T PROT 6.9 g/dL (Normal) Range: 6.4-8.2 29-Tsg-001915:33 CBC-Complete Blood Cnt No Diff Comments: [facility] [address] [place], [address] MPV 10.7 fL (Normal) Range: 6.2-12.0 PLT 351 K/mm3 (Normal) Range: 150-450 RDW SD 54.0 fL (Abnormal) Range: 35.1-43.9 RDW CV 16.8 % (Abnormal) Range: 11.6-14.6 MCHC 30.8 {g/gl} (Abnormal) Range: 32-36 MCH 27.3 pg (Normal) Range: 27.0-32.0 MCV 88.8 fL (Normal) Range: 81-99 HCT 41.9 % (Normal) Range: 37-47 HGB 12.9 g/dL (Normal) Range: 12.0-15.0 RBC 4.72 {M/mm3} (Normal) Range: 4.2-5.4 WBC 11.5 K/mm3 (Abnormal) Range: 4.4-11.0 27-Yib-414784:33 Liver Profile Comments: [facility] [address] [place], [place], [id number] D BILI 0.09 mg/dL (Normal) Range: 0.00-0.30 T BILI 0.60 mg/dL (Normal) Range: 0.20-1.00 ALT 33 U/L (Normal) Range: 13-56 Comments: Please note revised ALT reference range wqaqauuqm05/28/2018. ALK P 59 U/L (Normal) Range: 45-117 AST 15 U/L (Normal) Range: 15-37 GLOB 3.7 g/dL (Normal) Range: 2.2-4.2 ALB 3.8 g/dL (Normal) Range: 3.2-5.0 T PROT 7.5 g/dL (Normal) Range: 6.4-8.2 29-Iyg-671235:29 CBC-Complete Blood Cnt No Diff Comments: [facility] [address] [place], [place], [id number] MPV 11.1 fL (Normal) Range: 6.2-12.0 PLT 307 K/mm3 (Normal) Range: 150-450 RDW SD 52.5 fL (Abnormal) Range: 35.1-43.9 RDW CV 16.1 % (Abnormal) Range: 11.6-14.6 MCHC 30.1 {g/gl} (Abnormal) Range: 32-36 MCH 27.3 pg (Normal) Range: 27.0-32.0 MCV 90.6 fL (Normal) Range: 81-99 HCT 43.2 % (Normal) Range: 37-47 HGB 13.0 g/dL (Normal) Range: 12.0-15.0 RBC 4.77 {M/mm3} (Normal) Range: 4.2-5.4 WBC 9.5 K/mm3 (Normal) Range: 4.4-11.0 08-Ykp-425760:29 Liver Profile Comments: [facility] [address] [place], [address] D BILI 0.10 mg/dL (Normal) Range: 0.00-0.30 T BILI 0.40 mg/dL (Normal) Range: 0.20-1.00 ALT 29 U/L (Normal) Range: 12-78 ALK P 51 U/L (Normal) Range: 45-117 AST 12 U/L (Abnormal) Range: 15-37 GLOB 3.6 g/dL (Normal) Range: 2.2-4.2 ALB 3.9 g/dL (Normal) Range: 3.4-5.0 Comments: Please note revised Albumin AND Globulin reference rangeeffective 2017. T PROT 7.5 g/dL (Normal) Range: 6.4-8.2 7-Dor-059655:34 Gram Stain w/Sputum Cult Comments: PATIENT NOT FASTINGPERFORMED BY: [employer] WedWu [facility] [address] [id number] Information: SRC:SP Rflx Gram Stain Evaluation GSACC (Normal) Comments: This specimen is of good quality and is acceptable for routinebacterial culture. Result 1 GNRF (Normal) Comments: Few gram negative rods.Few gram positive cocciRare gram negative coccobacilli Epithelial Cells Few (Normal) White Blood Cells None seen (Normal) 5-Tnq-037182:34 Sputum Culture Comments: PATIENT NOT FASTINGPERFORMED BY: [employer] [address] [id number] Result 1 RRF (Normal) Comments: Routine respiratory roxanne Lower Respiratory Culture Final report (Normal) 1-Fic-087151:12 TSH (84870) Comments: PATIENT NOT FASTINGPERFORMED BY: [facility] [id number] TSH 0.434 {uIU/mL} (Abnormal) Range: 0.450-4.500 6-Aem-608051:12 T3, FREE (TRIDOTHYRONINE) (17356) Comments: PATIENT NOT FASTINGPERFORMED BY: [facility] [id number] Triiodothyronine,Free,Serum 3.0 pg/mL (Normal) Range: 2.0-4.4 :12 T4, FREE (THYROXINE) (41912) Comments: PATIENT NOT FASTINGPERFORMED BY: [facility] [id number]; review 05/15 T4,Free(Direct) 1.22 ng/dL (Normal) Range: 0.82-1.77 17-Yps-270606:14 CBC-Complete Blood Cnt No Diff Comments: [facility] [address] [place], [place], [id number] MPV 10.8 fL (Normal) Range: 6.2-12.0 PLT 319 K/mm3 (Normal) Range: 150-450 RDW SD 54.5 fL (Abnormal) Range: 35.1-43.9 RDW CV 16.9 % (Abnormal) Range: 11.6-14.6 MCHC 31.1 {g/gl} (Abnormal) Range: 32-36 MCH 28.2 pg (Normal) Range: 27.0-32.0 MCV 90.9 fL (Normal) Range: 81-99 HCT 38.0 % (Normal) Range: 37-47 HGB 11.8 g/dL (Abnormal) Range: 12.0-15.0 RBC 4.18 {M/mm3} (Abnormal) Range: 4.2-5.4 WBC 7.7 K/mm3 (Normal) Range: 4.4-11.0 91-Ekb-552596:14 Liver Profile Comments: [facility] [address] [place], [place], [address] D BILI 0.11 mg/dL (Normal) Range: 0.00-0.30 T BILI 0.60 mg/dL (Normal) Range: 0.20-1.00 ALT 31 U/L (Normal) Range: 12-78 ALK P 51 U/L (Normal) Range: 45-117 AST 22 U/L (Normal) Range: 15-37 GLOB 3.3 g/dL (Normal) Range: 2.2-4.2 ALB 3.7 g/dL (Normal) Range: 3.4-5.0 Comments: Please note revised Albumin AND Globulin reference rangeeffective 2017. T PROT 7.0 g/dL (Normal) Range: 6.4-8.2 6-Kir-378096:36 CBC-Complete Blood Cnt No Diff Comments: [facility] ORDERED TSH,FT4,FT3,AND TPOSTANDING ORDER FROM [facility] CBC AND LIVER.[facility] [address] [facility] [address] [place], [place], [id number] MPV 10.7 fL (Normal) Range: 6.2-12.0 PLT 319 K/mm3 (Normal) Range: 150-450 RDW SD 54.0 fL (Abnormal) Range: 35.1-43.9 RDW CV 16.8 % (Abnormal) Range: 11.6-14.6 MCHC 31.8 {g/gl} (Abnormal) Range: 32-36 MCH 28.6 pg (Normal) Range: 27.0-32.0 MCV 89.9 fL (Normal) Range: 81-99 HCT 38.4 % (Normal) Range: 37-47 HGB 12.2 g/dL (Normal) Range: 12.0-15.0 RBC 4.27 {M/mm3} (Normal) Range: 4.2-5.4 WBC 6.9 K/mm3 (Normal) Range: 4.4-11.0 1-Uaz-584206:36 Free T3 Comments: [facility] [address] [place], [place], [id number] FREE T3 2.6 pg/mL (Normal) Range: 2.18-3.98 5-Jad-314447:36 Liver Profile Comments: [facility] [address] [place], [place], [address] D BILI 0.07 mg/dL (Normal) Range: 0.00-0.30 T BILI 0.40 mg/dL (Normal) Range: 0.20-1.00 ALT 32 U/L (Normal) Range: 12-78 ALK P 48 U/L (Normal) Range: 45-117 AST 15 U/L (Normal) Range: 15-37 GLOB 3.2 g/dL (Normal) Range: 2.2-4.2 ALB 3.7 g/dL (Normal) Range: 3.4-5.0 Comments: Please note revised Albumin AND Globulin reference rangeeffective 2017. T PROT 6.9 g/dL (Normal) Range: 6.4-8.2 0-Dwx-405595:36 T4 Free Direct Comments: [facility] [address] [place], [address] T4 FREE DIRECT 0.84 ng/dL (Normal) Range: 0.76-1.46 3-Ula-096216:36 Thyroid Peroxidase AB Comments: [facility] (refer to report for specific site)refer to report for address and phone number TPO AB [phone] {IU/mL} (Normal) Range: 0-34 Comments: Performed at: [address] [id number] Director: Jose L Patel PhD, Phone: [phone] 1-Mev-498844:36 Thyroid Stim Hormone (TSH) Comments: [facility] [address] [place], [address] TSH 0.36 {uIU/mL} (Normal) Range: 0.358-3.74 96-Pxw-132196:03 CBC-Complete Blood Cnt No Diff Comments: [facility] [address] [place], [place], [id number] MPV 10.4 fL (Normal) Range: 6.2-12.0 PLT 354 K/mm3 (Normal) Range: 150-450 RDW SD 56.7 fL (Abnormal) Range: 35.1-43.9 RDW CV 17.5 % (Abnormal) Range: 11.6-14.6 MCHC 31.5 {g/gl} (Abnormal) Range: 32-36 MCH 28.7 pg (Normal) Range: 27.0-32.0 MCV 91.1 fL (Normal) Range: 81-99 HCT 41.9 % (Normal) Range: 37-47 HGB 13.2 g/dL (Normal) Range: 12.0-15.0 RBC 4.60 {M/mm3} (Normal) Range: 4.2-5.4 WBC 9.2 K/mm3 (Normal) Range: 4.4-11.0 61-Jpx-918810:03 Liver Profile Comments: [facility] [address] [place], [place], [id number] D BILI 0.11 mg/dL (Normal) Range: 0.00-0.30 T BILI 0.40 mg/dL (Normal) Range: 0.20-1.00 ALT 30 U/L (Normal) Range: 12-78 ALK P 52 U/L (Normal) Range: 45-117 AST 14 U/L (Abnormal) Range: 15-37 GLOB 3.4 g/dL (Normal) Range: 2.2-4.2 ALB 4.1 g/dL (Normal) Range: 3.4-5.0 Comments: Please note revised Albumin AND Globulin reference rangeeffective 2017. T PROT 7.5 g/dL (Normal) Range: 6.4-8.2 49-Zuk-607767:28 CBC-Complete Blood Cnt No Diff Comments: [facility] [address] [place], [place], [id number] MPV 11.1 fL (Normal) Range: 6.2-12.0 PLT 278 K/mm3 (Normal) Range: 150-450 RDW SD 57.7 fL (Abnormal) Range: 35.1-43.9 RDW CV 17.8 % (Abnormal) Range: 11.6-14.6 MCHC 31.4 {g/gl} (Abnormal) Range: 32-36 MCH 28.7 pg (Normal) Range: 27.0-32.0 MCV 91.2 fL (Normal) Range: 81-99 HCT 40.4 % (Normal) Range: 37-47 HGB 12.7 g/dL (Normal) Range: 12.0-15.0 RBC 4.43 {M/mm3} (Normal) Range: 4.2-5.4 WBC 8.7 K/mm3 (Normal) Range: 4.4-11.0 [id number] Liver Profile Comments: [facility] [id number] [place], [place], [id number] D BILI 0.13 mg/dL (Normal) Range: 0.00-0.30 T BILI 0.60 mg/dL (Normal) Range: 0.20-1.00 ALT 32 U/L (Normal) Range: 12-78 ALK P 44 U/L (Abnormal) Range: 45-117 AST 13 U/L (Abnormal) Range: 15-37 GLOB 3.2 g/dL (Normal) Range: 2.2-4.2 ALB 3.7 g/dL (Normal) Range: 3.4-5.0 Comments: Please note revised Albumin AND Globulin reference rangeeffective 2017. T PROT 6.9 g/dL (Normal) Range: 6.4-8.2 [id number] CBC-Complete Blood Cnt No Diff Comments: [facility] [id number] [place], [place], [id number] MPV 10.9 fL (Normal) Range: 6.2-12.0 PLT 281 K/mm3 (Normal) Range: 150-450 RDW SD 59.5 fL (Abnormal) Range: 35.1-43.9 RDW CV 17.6 % (Abnormal) Range: 11.6-14.6 MCHC 30.6 {g/gl} (Abnormal) Range: 32-36 MCH 28.2 pg (Normal) Range: 27.0-32.0 MCV 92.0 fL (Normal) Range: 81-99 HCT 41.5 % (Normal) Range: 37-47 HGB 12.7 g/dL (Normal) Range: 12.0-15.0 RBC 4.51 {M/mm3} (Normal) Range: 4.2-5.4 WBC 7.8 K/mm3 (Normal) Range: 4.4-11.0 [id number] CBC-Complete Blood Cnt No Diff Comments: [facility] [id number] [facility] [place], [id number] MPV 11.2 fL (Normal) Range: 6.2-12.0 PLT 286 K/mm3 (Normal) Range: 150-450 RDW SD 57.9 fL (Abnormal) Range: 35.1-43.9 RDW CV 17.3 % (Abnormal) Range: 11.6-14.6 MCHC 30.8 {g/gl} (Abnormal) Range: 32-36 MCH 28.3 pg (Normal) Range: 27.0-32.0 MCV 91.7 fL (Normal) Range: 81-99 HCT 39.9 % (Normal) Range: 37-47 HGB 12.3 g/dL (Normal) Range: 12.0-15.0 RBC 4.35 {M/mm3} (Normal) Range: 4.2-5.4 WBC 9.1 K/mm3 (Normal) Range: 4.4-11.0 [id number] Liver Profile Comments: [facility] [id number] [facility]. [place], [place], [id number] D BILI 0.09 mg/dL (Normal) Range: 0.00-0.30 T BILI 0.20 mg/dL (Normal) Range: 0.20-1.00 ALT 34 U/L (Normal) Range: 12-78 ALK P 55 U/L (Normal) Range: 45-117 AST 15 U/L (Normal) Range: 15-37 GLOB 3.3 g/dL (Normal) Range: 2.3-3.5 ALB 3.5 g/dL (Normal) Range: 3.4-5.0 T PROT 6.8 g/dL (Normal) Range: 6.4-8.2 [id number] URINE ALISSON CULTURE-IDENTIFICATN Comments: PERFORMED BY: [facility] [id number] [facility] [id number] Information: SRC:UR (86503) Antimicrobial MIHEAD (Normal) Comments: S = Susceptible; I = Intermediate; R = Resistant P = Positive; N = Negative MICS are expressed in micrograms per mL Antibiotic RSLT#1 RSLT#2 RS Susceptibility LT#3 RSLT#4Amoxicillin/Clavulanic Acid SAmpicillin SCefepime SCeftriaxone SCefuroxime SCephalothin SCiprofloxacin SErtapenem SGentamicin SImipenem SLevofloxacin SNitrofurantoin SPipera cillin STetracycline STobramycin STrimethoprim/Sulfa S Result 1 Escherichia coli Comments: Greater than 100,000 colony forming units per mL (Abnormal) Urine Final report Culture,Comprehensive (Abnormal) [id number]-Hbz-[id number] Urinalysis, Office (27489) UA - LEUKOCYTE ESTERASE Small (Normal) UA - NITRITE Negative (Normal) URINE UROBILINGN SRAVANI TIMED Normal mg/dL (Normal) UA - PROTEIN Negative mg/dL (Normal) UA - PH 6 (Abnormal) UA - BLOOD Negative (Normal) UA - SPECIFIC GRAVITY 1.005 (Normal) UA - KETONES Negative mg/dL (Normal) UA - BILIRUBIN Negative (Normal) UA - GLUCOSE Negative (Normal) 25-Out-142253:58 Basic Metabolic Profile (BMP) Comments: 'TROP' Serial specimen #1, #2, #3, or #4: 1[facility] [address] [place], [place], [id number] GAP 10 (Normal) Range: 5-15 CO2 25.0 mmol/L (Normal) Range: 21.0-32.0 CL 102 mmol/L (Normal) Range: 98-107 K 3.5 mmol/L (Normal) Range: 3.5-5.1 NA 137 mmol/L (Normal) Range: 136-145 CA 8.5 mg/dL (Normal) Range: 8.5-10.1 BUN/CRE 25.0 {RATIO} (Abnormal) Range: 10-20 Estimated CRCL 51.15 ml/min (Normal) EST GFR - AA 71 mL/min (Normal) Comments: GFR Calc EST GFR 59 mL/min (Abnormal) Comments: Non- GFR Calc CREAT,SERUM 1.04 mg/dL (Abnormal) Range: 0.55-1.02 Comments: The validity of the calculated GFR AND GFRAA in patients over70 years has not been determined. Clinical correlation isessential. BUN 26 mg/dL (Abnormal) Range: 7-18 GLU 92 mg/dL (Normal) Range: 70-110 :58 CBC W/Diff, Automated Comments: [facility] [address] [place], [address] Absolute Lymph 1.13 {X10_3/ul} (Normal) Range: 0.83-4.51 Absolute Neut 8.5 {X10_3/uL} (Abnormal) Range: 2.0-7.7 IM GRAN % 0.400 % (Normal) Range: 0.0-0.9 Comments: IG% - Immature Granulocytes (promyelocytes, myelocytes andmetamyelocytes) > 1% indicates that a LEFT SHIFT is Present. BASO% 0.1 % (Normal) Range: 0-1 EO% 2.6 % (Normal) Range: 0-5 MONO% 5.7 % (Normal) Range: 0-10 LY% 10.8 % (Abnormal) Range: 19-41 NEUT% 80.4 % (Abnormal) Range: 47-70 MPV 10.7 fL (Normal) Range: 6.2-12.0 PLT 255 K/mm3 (Normal) Range: 150-450 RDW SD 53.4 fL (Abnormal) Range: 35.1-43.9 RDW CV 17.2 % (Abnormal) Range: 11.6-14.6 MCHC 32.7 {g/gl} (Normal) Range: 32-36 MCH 28.8 pg (Normal) Range: 27.0-32.0 MCV 88.1 fL (Normal) Range: 81-99 HCT 31.8 % (Abnormal) Range: 37-47 HGB 10.4 g/dL (Abnormal) Range: 12.0-15.0 RBC 3.61 {M/mm3} (Abnormal) Range: 4.2-5.4 WBC 10.5 K/mm3 (Normal) Range: 4.4-11.0 :58 Troponin-I Comments: 'TROP' Serial specimen #1, #2, #3, or #4: [facility] [address] [place], [place], [id number] TROPONIN-I 0.11 ng/mL (Abnormal) Comments: TROPONIN-I EXPECTED VALUES <0.05 NEGATIVE 0.06 - 0.59 AT RISK OF DE > OR = 0.60 SUGGEST DE :56 CBC W/Diff, Automated Comments: [facility] [address] [place], [place], [address] Absolute Lymph 1.30 {X10_3/ul} (Normal) Range: 0.83-4.51 Absolute Neut 7.1 {X10_3/uL} (Normal) Range: 2.0-7.7 IM GRAN % 0.700 % (Normal) Range: 0.0-0.9 Comments: IG% - Immature Granulocytes (promyelocytes, myelocytes andmetamyelocytes) > 1% indicates that a LEFT SHIFT is Present. BASO% 0.1 % (Normal) Range: 0-1 EO% 0.9 % (Normal) Range: 0-5 MONO% 7.0 % (Normal) Range: 0-10 LY% 14.1 % (Abnormal) Range: 19-41 NEUT% 77.2 % (Abnormal) Range: 47-70 MPV 9.9 fL (Normal) Range: 6.2-12.0 PLT 309 K/mm3 (Normal) Range: 150-450 RDW SD 57.1 fL (Abnormal) Range: 35.1-43.9 RDW CV 17.2 % (Abnormal) Range: 11.6-14.6 MCHC 30.9 {g/gl} (Abnormal) Range: 32-36 MCH 28.3 pg (Normal) Range: 27.0-32.0 MCV 91.5 fL (Normal) Range: 81-99 HCT 38.8 % (Normal) Range: 37-47 HGB 12.0 g/dL (Normal) Range: 12.0-15.0 RBC 4.24 {M/mm3} (Normal) Range: 4.2-5.4 WBC 9.2 K/mm3 (Normal) Range: 4.4-11.0 :56 Comprehensive Metabolic Profil Comments: [facility] [address] [place], [place], [id number] GAP 8 (Normal) Range: 5-15 CO2 29.0 mmol/L (Normal) Range: 21.0-32.0 CL 103 mmol/L (Normal) Range: 98-107 K 4.7 mmol/L (Normal) Range: 3.5-5.1 NA 140 mmol/L (Normal) Range: 136-145 T BILI 0.40 mg/dL (Normal) Range: 0.20-1.00 ALT 30 U/L (Normal) Range: 12-78 ALK P 53 U/L (Normal) Range: 45-117 AST 21 U/L (Normal) Range: 15-37 CA 9.0 mg/dL (Normal) Range: 8.5-10.1 A/G 1.0 {RATIO} (Normal) Range: 0.9-2.4 GLOB 3.6 g/dL (Abnormal) Range: 2.3-3.5 ALB 3.6 g/dL (Normal) Range: 3.4-5.0 T PROT 7.2 g/dL (Normal) Range: 6.4-8.2 BUN/CRE 15.8 {RATIO} (Normal) Range: 10-20 EST GFR - AA 73 mL/min (Normal) Comments: GFR Calc EST GFR 61 mL/min (Normal) Comments: Non- GFR Calc CREAT,SERUM 1.01 mg/dL (Normal) Range: 0.55-1.02 Comments: The validity of the calculated GFR AND GFRAA in patients over70 years has not been determined. Clinical correlation isessential. BUN 16 mg/dL (Normal) Range: 7-18 GLU 111 mg/dL (Abnormal) Range: 70-110 Comments: Fasting Glucose result from 110 to <126 mg/dLsuggests IMPAIRED HOMEOSTASIS per A.D.A. criteria. 34-Deb-366926:39 CBC W/Diff, Automated Comments: [facility] [address] [place], [place], [address] Absolute Lymph 1.40 {X10_3/ul} (Normal) Range: 0.83-4.51 Absolute Neut 6.9 {X10_3/uL} (Normal) Range: 2.0-7.7 IM GRAN % 0.300 % (Normal) Range: 0.0-0.9 Comments: IG% - Immature Granulocytes (promyelocytes, myelocytes andmetamyelocytes) > 1% indicates that a LEFT SHIFT is Present. BASO% 0.1 % (Normal) Range: 0-1 EO% 0.3 % (Normal) Range: 0-5 MONO% 4.9 % (Normal) Range: 0-10 LY% 16.0 % (Abnormal) Range: 19-41 NEUT% 78.4 % (Abnormal) Range: 47-70 MPV 11.3 fL (Normal) Range: 6.2-12.0 PLT 297 K/mm3 (Normal) Range: 150-450 RDW SD 58.4 fL (Abnormal) Range: 35.1-43.9 RDW CV 18.1 % (Abnormal) Range: 11.6-14.6 MCHC 32.7 {g/gl} (Normal) Range: 32-36 MCH 29.5 pg (Normal) Range: 27.0-32.0 MCV 90.1 fL (Normal) Range: 81-99 HCT 41.0 % (Normal) Range: 37-47 HGB 13.4 g/dL (Normal) Range: 12.0-15.0 RBC 4.55 {M/mm3} (Normal) Range: 4.2-5.4 WBC 8.8 K/mm3 (Normal) Range: 4.4-11.0 55-Qbt-207846:39 Comprehensive Metabolic Profil Comments: [facility] [address] [place], [place], [address] GAP 7 (Normal) Range: 5-15 CO2 30.0 mmol/L (Normal) Range: 21.0-32.0 CL 101 mmol/L (Normal) Range: 98-107 K 3.9 mmol/L (Normal) Range: 3.5-5.1 NA 138 mmol/L (Normal) Range: 136-145 T BILI 0.60 mg/dL (Normal) Range: 0.20-1.00 ALT 35 U/L (Normal) Range: 12-78 ALK P 40 U/L (Abnormal) Range: 45-117 AST 19 U/L (Normal) Range: 15-37 CA 9.3 mg/dL (Normal) Range: 8.5-10.1 A/G 1.3 {RATIO} (Normal) Range: 0.9-2.4 GLOB 3.1 g/dL (Normal) Range: 2.3-3.5 ALB 4.1 g/dL (Normal) Range: 3.4-5.0 T PROT 7.2 g/dL (Normal) Range: 6.4-8.2 BUN/CRE 18.1 {RATIO} (Normal) Range: 10-20 EST GFR - AA 86 mL/min (Normal) Comments: GFR Calc EST GFR 71 mL/min (Normal) Comments: Non- GFR Calc CREAT,SERUM 0.88 mg/dL (Normal) Range: 0.55-1.02 Comments: The validity of the calculated GFR AND GFRAA in patients over70 years has not been determined. Clinical correlation isessential. BUN 16 mg/dL (Normal) Range: 7-18 GLU 129 mg/dL (Abnormal) Range: 70-110 Comments: Fasting Glucose result greater than or equal to 126 mg/dLsuggests DIABETES MELLITUS per A.D.A. criteria. 74-Tdg-882734:43 Homocysteine, Plasma (69043) Comments: PATIENT NOT FASTINGPERFORMED BY: [facility] [id number] Homocyst(e)ine, Plasma 9.3 umol/L (Normal) Range: 0.0-15.0 70-Xdv-606128:12 CRP, High Sensitivity Cardiac Comments: [facility] [address] [facility]. [place], [place], [address] CRP HIGH SENS 1.10 mg/L (Normal) Comments: Low Relative Risk of CVD <1.0 mg/L Average Relative Risk of CVD 1.0 - 3.0 mg/L High Relative Risk of CVD >3.0 mg/L 85-Hjx-966210:12 Erythrocyte Sed Rate Comments: [facility] [address] [facility]. [place], [place], [address] SED RATE 24 mm/h (Normal) Range: 0-30 4-Ejl-762806:28 CBC WITH MANUAL DIFF (47577) Comments: PATIENT NOT FASTINGPERFORMED BY: [employer] LabIdeagenrp WedWu [facility] [id number] Immature Grans (Abs) 0.0 {x10E3/uL} (Normal) Range: 0.0-0.1 Immature Granulocytes 0 % (Normal) Baso (Absolute) 0.0 {x10E3/uL} (Normal) Range: 0.0-0.2 Eos (Absolute) 0.1 {x10E3/uL} (Normal) Range: 0.0-0.4 Monocytes(Absolute) 0.3 {x10E3/uL} (Normal) Range: 0.1-0.9 Lymphs (Absolute) 1.9 {x10E3/uL} (Normal) Range: 0.7-3.1 Neutrophils (Absolute) 5.0 {x10E3/uL} (Normal) Range: 1.4-7.0 Basos 0 % (Normal) Eos 1 % (Normal) Monocytes 4 % (Normal) Lymphs 27 % (Normal) Neutrophils 68 % (Normal) Platelets 284 {x10E3/uL} (Normal) Range: 150-379 RDW 18.4 % (Abnormal) Range: 12.3-15.4 MCHC 33.7 g/dL (Normal) Range: 31.5-35.7 MCH 28.7 pg (Normal) Range: 26.6-33.0 MCV 85 fL (Normal) Range: 79-97 Hematocrit 37.1 % (Normal) Range: 34.0-46.6 Hemoglobin 12.5 g/dL (Normal) Range: 11.1-15.9 RBC 4.36 {x10E6/uL} (Normal) Range: 3.77-5.28 WBC 7.3 {x10E3/uL} (Normal) Range: 3.4-10.8 4-Oju-389423:28 Metabolic Panel, Basic Comments: PATIENT NOT FASTINGPERFORMED BY: [facility] Dynnek[address] [facility] [id number]; will review at 09/04 appt ([id number]) Calcium, Serum 9.4 mg/dL (Normal) Range: 8.7-10.2 Carbon Dioxide, Total 25 mmol/L (Normal) Range: 18-29 Chloride, Serum 97 mmol/L (Normal) Range: 96-106 Potassium, Serum 5.2 mmol/L (Normal) Range: 3.5-5.2 Sodium, Serum 141 mmol/L (Normal) Range: 134-144 BUN/Creatinine Ratio 14 (Normal) Range: 9-23 eGFR If Africn Am 75 mL/min/1.73 (Normal) eGFR If NonAfricn Am 65 mL/min/1.73 (Normal) Creatinine, Serum 0.99 mg/dL (Normal) Range: 0.57-1.00 BUN 14 mg/dL (Normal) Range: 6-24 Glucose, Serum 107 mg/dL (Abnormal) Range: 65-99 84-Jap-632858:31 CBC With Differential/Platelet Comments: PATIENT NOT FASTINGPERFORMED BY: NILE [employer] [facility] [id number] Immature Grans (Abs) 0.0 {x10E3/uL} Range: 0.0-0.1 (Normal) Immature Granulocytes 0 % (Normal) Baso (Absolute) 0.0 {x10E3/uL} Range: 0.0-0.2 (Normal) Eos (Absolute) 0.0 {x10E3/uL} Range: 0.0-0.4 (Normal) Monocytes(Absolute) 0.4 {x10E3/uL} Range: 0.1-0.9 (Normal) Lymphs (Absolute) 1.4 {x10E3/uL} Range: 0.7-3.1 (Normal) Neutrophils (Absolute) 10.1 {x10E3/uL} Range: 1.4-7.0 (Abnormal) Basos 0 % (Normal) Eos 0 % (Normal) Monocytes 4 % (Normal) Lymphs 12 % (Normal) Neutrophils 84 % (Normal) Platelets 416 {x10E3/uL} Range: 150-379 (Abnormal) RDW 17.2 % (Abnormal) Range: 12.3-15.4 MCHC 32.4 g/dL (Normal) Range: 31.5-35.7 MCH 27.0 pg (Normal) Range: 26.6-33.0 MCV 83 fL (Normal) Range: 79-97 Hematocrit 36.7 % (Normal) Range: 34.0-46.6 Hemoglobin 11.9 g/dL (Normal) Range: 11.1-15.9 RBC 4.40 {x10E6/uL} Range: 3.77-5.28 (Normal) WBC 12.7 {x10E3/uL} Range: 3.4-10.8 (Abnormal) 18-Aug-2016 Written Authoriz ASHLEY ANGELA (Normal) Comments: PATIENT NOT FASTINGPERFORMED BY: [facility] [place] [place] [id number] 13:31 Comments: WRITTEN AUTHORIZATION RECEIVED.AUTHORIZATION RECEIVED FROM JACKIE BRUNO LPN [id number] BY RADHA EMMANUEL 85-Wxk-794046:31 CBC (Auto) ([id number]) Comments: PATIENT NOT FASTINGPERFORMED BY: [facility] [facility] [id number] Platelets 416 {x10E3/uL} (Abnormal) Range: 150-379 RDW 17.2 % (Abnormal) Range: 12.3-15.4 MCHC 32.4 g/dL (Normal) Range: 31.5-35.7 MCH 27.0 pg (Normal) Range: 26.6-33.0 MCV 83 fL (Normal) Range: 79-97 Hematocrit 36.7 % (Normal) Range: 34.0-46.6 Hemoglobin 11.9 g/dL (Normal) Range: 11.1-15.9 RBC 4.40 {x10E6/uL} (Normal) Range: 3.77-5.28 WBC 12.7 {x10E3/uL} (Abnormal) Range: 3.4-10.8 72-Mdd-262507:31 Magnesium (96319) Comments: PATIENT NOT FASTINGPERFORMED BY: [facility] [facility] [id number] Magnesium, Serum 2.0 mg/dL (Normal) Range: 1.6-2.3 79-Yzm-326115:31 Renal function Panel (54784) Comments: PATIENT NOT FASTINGPERFORMED BY: [facility] CenterJondza3090 [facility] [id number] Albumin, Serum 4.1 g/dL (Normal) Range: 3.5-5.5 Phosphorus, Serum 3.9 mg/dL (Normal) Range: 2.5-4.5 Calcium, Serum 9.4 mg/dL (Normal) Range: 8.7-10.2 Carbon Dioxide, Total 25 mmol/L (Normal) Range: 18-29 Chloride, Serum 96 mmol/L (Normal) Range: 96-106 Potassium, Serum 5.7 mmol/L (Abnormal) Range: 3.5-5.2 Sodium, Serum 138 mmol/L (Normal) Range: 134-144 BUN/Creatinine Ratio 33 (Abnormal) Range: 9-23 eGFR If Africn Am 87 mL/min/1.73 (Normal) eGFR If NonAfricn Am 75 mL/min/1.73 (Normal) Creatinine, Serum 0.88 mg/dL (Normal) Range: 0.57-1.00 BUN 29 mg/dL (Abnormal) Range: 6-24 Glucose, Serum 99 mg/dL (Normal) Range: 65-99 6-Uob-244283:16 Lactic Acid Comments: [facility] [address] [place], [place], [id number] LACTIC ACID 1.2 mmol/L (Normal) Range: 0.4-2.0 :52 BNP,B-Type NATRIURETIC PEPTIDE Comments: [facility] [address] [place], [place], [address] B-TYPE BRENT PEP 89.7 pg/mL (Normal) Range: 0-100 :52 CBC W/Diff, Automated Comments: [facility] [address] [place], [place], [address] Absolute Lymph 1.12 {X10_3/ul} (Normal) Range: 0.83-4.51 Absolute Neut 5.2 {X10_3/uL} (Normal) Range: 2.0-7.7 IM GRAN % 0.300 % (Normal) Range: 0.0-0.9 Comments: IG% - Immature Granulocytes (promyelocytes, myelocytes andmetamyelocytes) > 1% indicates that a LEFT SHIFT is Present. BASO% 0.3 % (Normal) Range: 0-1 EO% 1.6 % (Normal) Range: 0-5 MONO% 4.8 % (Normal) Range: 0-10 LY% 16.4 % (Abnormal) Range: 19-41 NEUT% 76.6 % (Abnormal) Range: 47-70 MPV 10.7 fL (Normal) Range: 6.2-12.0 PLT 169 K/mm3 (Normal) Range: 150-450 RDW SD 53.0 fL (Abnormal) Range: 35.1-43.9 RDW CV 17.2 % (Abnormal) Range: 11.6-14.6 MCHC 33.7 {g/gl} (Normal) Range: 32-36 MCH 28.6 pg (Normal) Range: 27.0-32.0 MCV 84.8 fL (Normal) Range: 81-99 HCT 34.7 % (Abnormal) Range: 37-47 HGB 11.7 g/dL (Abnormal) Range: 12.0-15.0 RBC 4.09 {M/mm3} (Abnormal) Range: 4.2-5.4 WBC 6.8 K/mm3 (Normal) Range: 4.4-11.0 05-Aug-20169:52 Comprehensive Metabolic Profil Comments: 'TROP' Serial specimen #1, #2, #3, or #4: 1[facility] [address] [place], [place], [address] GAP 5 (Normal) Range: 5-15 CO2 24.0 mmol/L (Normal) Range: 21.0-32.0 CL 100 mmol/L (Normal) Range: 98-107 K 2.8 mmol/L (Abnormal) Range: 3.5-5.1 NA 129 mmol/L (Abnormal) Range: 136-145 Comments: Critical Result(s) Called at: 10:33:42 08/05/2016 by: Jeison Mansfield BILI 0.60 mg/dL (Normal) Range: 0.20-1.00 ALT 56 U/L (Normal) Range: 12-78 ALK P 52 U/L (Normal) Range: 45-117 AST 147 U/L (Abnormal) Range: 15-37 CA 8.1 mg/dL (Abnormal) Range: 8.5-10.1 A/G 0.8 {RATIO} (Abnormal) Range: 0.9-2.4 GLOB 3.6 g/dL (Abnormal) Range: 2.3-3.5 ALB 3.0 g/dL (Abnormal) Range: 3.4-5.0 T PROT 6.6 g/dL (Normal) Range: 6.4-8.2 BUN/CRE 17.5 {RATIO} (Normal) Range: 10-20 Estimated CRCL 59.14 ml/min (Normal) EST GFR - AA 83 mL/min (Normal) Comments: GFR Calc EST GFR 68 mL/min (Normal) Comments: Non- GFR Calc CREAT,SERUM 0.91 mg/dL (Normal) Range: 0.55-1.02 Comments: The validity of the calculated GFR AND GFRAA in patients over70 years has not been determined. Clinical correlation isessential. BUN 16 mg/dL (Normal) Range: 7-18 GLU 92 mg/dL (Normal) Range: 70-110 :52 Troponin-I Comments: 'TROP' Serial specimen #1, #2, #3, or #4: [address] [address] [place], [address] TROPONIN-I 0.73 ng/mL (Abnormal) Comments: TROPONIN-I EXPECTED VALUES <0.05 NEGATIVE 0.06 - 0.59 AT RISK OF DE > OR = 0.60 SUGGEST DE :43 Base Excess ISTAT Comments: [place] [address] [place] [address] BE ISTAT 1 mmol/L (Normal) :43 Bicarbonate ISTAT Comments: [place] [address] [place] [address] HCO3 ISTAT 26 mmol/L (Normal) Range: 22-26 Comments: Site = R RadialDevice = Vent MaskFIO2 = 40Results To = ED MDTime Given = 949 :43 Blood Gas Specimen Type Comments: [place] [address] [place] [address] BLD GAS TYPE ART (Normal) :43 pCO2 - ISTAT 40.0 {mmHg} (Normal) Comments: [place] [address] [place] [address] Range: 35-45 :43 pH - I-STAT 7.42 (Normal) Comments: [place] [address] [place] [address] Range: 7.35-7.45 :43 PO2 I-STAT 68 {mmHG} (Abnormal) Comments: [facility] LaboratoryPoint [place] [address] [place] [address] Range: 75-100 :43 SO2 ISTAT 94 % (Abnormal) Comments: [place] [address] [place] [address] Range: 95-99 :43 Total Carbon Dioxide ISTAT Comments: [place] [address] [place] [address] TOTAL CO2 ISTAT 27 mmol/L (Normal) :06 CBC W/Diff, Automated Comments: [place] [address] [place], [address] Absolute Lymph 1.60 {X10_3/ul} (Normal) Range: 0.83-4.51 Absolute Neut 4.1 {X10_3/uL} (Normal) Range: 2.0-7.7 IM GRAN % 0.000 % (Normal) Range: 0.0-0.9 Comments: IG% - Immature Granulocytes (promyelocytes, myelocytes andmetamyelocytes) > 1% indicates that a LEFT SHIFT is Present. BASO% 0.2 % (Normal) Range: 0-1 EO% 1.9 % (Normal) Range: 0-5 MONO% 8.1 % (Normal) Range: 0-10 LY% 25.4 % (Normal) Range: 19-41 NEUT% 64.4 % (Normal) Range: 47-70 MPV 11.0 fL (Normal) Range: 6.2-12.0 PLT 259 K/mm3 (Normal) Range: 150-450 RDW SD 57.2 fL (Abnormal) Range: 35.1-43.9 RDW CV 17.6 % (Abnormal) Range: 11.6-14.6 MCHC 31.5 {g/gl} (Abnormal) Range: 32-36 MCH 28.0 pg (Normal) Range: 27.0-32.0 MCV 88.9 fL (Normal) Range: 81-99 HCT 41.0 % (Normal) Range: 37-47 HGB 12.9 g/dL (Normal) Range: 12.0-15.0 RBC 4.61 {M/mm3} (Normal) Range: 4.2-5.4 WBC 6.3 K/mm3 (Normal) Range: 4.4-11.0 26-Whl-506406:06 Comprehensive Metabolic Profil Comments: [facility] [address] [place], [place], [id number] GAP 5 (Normal) Range: 5-15 CO2 30.0 mmol/L (Normal) Range: 21.0-32.0 CL 103 mmol/L (Normal) Range: 98-107 K 3.6 mmol/L (Normal) Range: 3.5-5.1 NA 138 mmol/L (Normal) Range: 136-145 T BILI 0.50 mg/dL (Normal) Range: 0.20-1.00 ALT 33 U/L (Normal) Range: 12-78 ALK P 46 U/L (Normal) Range: 45-117 AST 27 U/L (Normal) Range: 15-37 CA 8.9 mg/dL (Normal) Range: 8.5-10.1 A/G 1.2 {RATIO} (Normal) Range: 0.9-2.4 GLOB 3.2 g/dL (Normal) Range: 2.3-3.5 ALB 3.8 g/dL (Normal) Range: 3.4-5.0 T PROT 7.0 g/dL (Normal) Range: 6.4-8.2 BUN/CRE 12.8 {RATIO} (Normal) Range: 10-20 EST GFR - AA 80 mL/min (Normal) Comments: GFR Calc EST GFR 66 mL/min (Normal) Comments: Non- GFR Calc CREAT,SERUM 0.94 mg/dL (Normal) Range: 0.55-1.02 Comments: The validity of the calculated GFR AND GFRAA in patients over70 years has not been determined. Clinical correlation isessential. BUN 12 mg/dL (Normal) Range: 7-18 GLU 102 mg/dL (Normal) Range: 70-110 24-Vez-010449:30 PAP I-G w/rfx hrHPV Comments: CYTOLOGY INFORMATION:- CLINICAL INFORMATION:- DATE LMP/MENOPAUSE: MENOPAUSE- COLLECTION VIAL: Thin Prep Vial- BATTERY RECHARGER SOURCE: CERVICAL/ENDOCERVICAL- COLLECTION TECHNIQUE: BRUSH/SPATULACYTOLOGY INFORMATION :- CLINICAL INFORMATION:- DATE LMP/MENOPAUSE: MENOPAUSE- COLLECTION VIAL: Thin Prep Vial- BATTERY RECHARGER SOURCE: CERVICAL/ENDOCERVICAL- COLLECTION TECHNIQUE: BRUSH/SPATULASpecimen Comment: [id number] imen Comment: No. of containers..01 CYTYC Thin Prep VialLabCorp (refer to report for specific site)refer to report for address and phone number HPV RFLX Comment (Normal) Comments: The HPV DNA reflex criteria were not met with this specimenresult therefore, no HPV testing was performed.Performed at: [address] [id number] Director: Selene Munoz MD, Phone: [phone] PAPSMR Comment (Normal) Comments: The Pap smear is a screening test designed to aid in thedetection of premalignant and malignant conditions of theuterine cervix. It is not a diagnostic procedure andshould not be used as the sole means of detecting cervicalcancer. Both false-positive and false-negative reports dooccur. COMM . (Normal) TEST METHOD Comment (Normal) Comments: This liquid based ThinPrep(R) pap test was screened withthe use of an image guided system. PERFORM Comment (Normal) Comments: Dioni Pereira, Map [employer] Chart [employer]ounter (ASCP) ADEQ Comment (Normal) Comments: Satisfactory for evaluation. Endocervical and/or squamous metaplasticcells (endocervical component) are present. DIAGN Comment (Normal) Comments: NEGATIVE FOR INTRAEPITHELIAL LESION AND MALIGNANCY. 71-Jek-324675:09 CBC W/Diff, Automated Comments: [facility] [address] [place], [place], [id number] Absolute Lymph 1.61 {X10_3/ul} (Normal) Range: 0.83-4.51 Absolute Neut 4.9 {X10_3/uL} (Normal) Range: 2.0-7.7 IM GRAN % 0.300 % (Normal) Range: 0.0-0.9 Comments: IG% - Immature Granulocytes (promyelocytes, myelocytes andmetamyelocytes) > 1% indicates that a LEFT SHIFT is Present. BASO% 0.3 % (Normal) Range: 0-1 EO% 1.5 % (Normal) Range: 0-5 MONO% 8.9 % (Normal) Range: 0-10 LY% 22.0 % (Normal) Range: 19-41 NEUT% 67.0 % (Normal) Range: 47-70 MPV 10.4 fL (Normal) Range: 6.2-12.0 PLT 287 K/mm3 (Normal) Range: 150-450 RDW SD 55.4 fL (Abnormal) Range: 35.1-43.9 RDW CV 17.5 % (Abnormal) Range: 11.6-14.6 MCHC 32.0 {g/gl} (Normal) Range: 32-36 MCH 27.9 pg (Normal) Range: 27.0-32.0 MCV 87.4 fL (Normal) Range: 81-99 HCT 39.4 % (Normal) Range: 37-47 HGB 12.6 g/dL (Normal) Range: 12.0-15.0 RBC 4.51 {M/mm3} (Normal) Range: 4.2-5.4 WBC 7.3 K/mm3 (Normal) Range: 4.4-11.0 [id number] Comprehensive Metabolic Profil Comments: [facility] [id number] [place], [id number] GAP 8 (Normal) Range: 5-15 CO2 30.0 mmol/L (Normal) Range: 21.0-32.0 CL 100 mmol/L (Normal) Range: 98-107 K 3.5 mmol/L (Normal) Range: 3.5-5.1 NA 138 mmol/L (Normal) Range: 136-145 T BILI 0.50 mg/dL (Normal) Range: 0.20-1.00 ALT 30 U/L (Normal) Range: 12-78 ALK P 45 U/L (Normal) Range: 45-117 AST 25 U/L (Normal) Range: 15-37 CA 8.7 mg/dL (Normal) Range: 8.5-10.1 A/G 1.3 {RATIO} (Normal) Range: 0.9-2.4 GLOB 3.1 g/dL (Normal) Range: 2.3-3.5 ALB 4.0 g/dL (Normal) Range: 3.4-5.0 T PROT 7.1 g/dL (Normal) Range: 6.4-8.2 BUN/CRE 20.2 {RATIO} (Abnormal) Range: 10-20 EST GFR - AA 85 mL/min (Normal) Comments: GFR Calc EST GFR 70 mL/min (Normal) Comments: Non- GFR Calc CREAT,SERUM 0.89 mg/dL (Normal) Range: 0.55-1.02 Comments: The validity of the calculated GFR AND GFRAA in patients over70 years has not been determined. Clinical correlation isessential. BUN 18 mg/dL (Normal) Range: 7-18 GLU 90 mg/dL (Normal) Range: 70-110 [id number] Lipid Profile Comments: [facility] [id number] [place], [address] VLDL 11 mg/dL (Normal) Range: 5-40 LDL 118 mg/dL (Normal) Range: 0-130 HDL 123 mg/dL (Normal) Comments: The drugs N-Acetylcysteine and Metamizole may falsely deressthis assay. Reference Range HDL <40 mg/dL Low HDL Cholesterol HDL >or= 60 mg/dL High HDL Cholesterol TRIG 56 mg/dL (Normal) Comments: The drugs N-Acetylcysteine and Metamizole may falsely deressthis assay.Serum Triglycerides Reference Interval Normal <150 mg/dL Borderline high 150 - 199 mg/dL High 200 - 499 mg/dL Very High > or = 500 mg/dL CHOL 252 mg/dL (Abnormal) Comments: <200 mg/dL Desirable 200-240 mg/dL Borderline >240 mg/dL High Risk [id number] Ferritin ([id number]) Comments: PATIENT NOT FASTINGPERFORMED BY: [facility] [id number] [place] [id number] Information: NURSE DRAW Ferritin, Serum 35 ng/mL (Normal) Range: 15-150 [id number] Lipid Profile Comments: [facility] [id number] [place], [address] VLDL 14 mg/dL (Normal) Range: 5-40 LDL 88 mg/dL (Normal) Range: 0-130 HDL 84 mg/dL (Normal) Comments: The drugs N-Acetylcysteine and Metamizole may falsely deressthis assay. Reference Range HDL <40 mg/dL Low HDL Cholesterol HDL >or= 60 mg/dL High HDL Cholesterol TRIG 68 mg/dL (Normal) Comments: The drugs N-Acetylcysteine and Metamizole may falsely deressthis assay.Serum Triglycerides Reference Interval Normal <150 mg/dL Borderline high 150 - 199 mg/dL High 200 - 499 mg/dL Very High > or = 500 mg/dL CHOL 186 mg/dL (Normal) Comments: <200 mg/dL Desirable 200-240 mg/dL Borderline >240 mg/dL High Risk [id number]-[id number]:11 CBC W/Diff, Automated Comments: [facility] [address] [place], [address] Absolute Lymph 1.06 {X10_3/ul} (Normal) Range: 0.83-4.51 Absolute Neut 7.5 {X10_3/uL} (Normal) Range: 2.0-7.7 IM GRAN % 0.200 % (Normal) Range: 0.0-0.9 Comments: IG% - Immature Granulocytes (promyelocytes, myelocytes andmetamyelocytes) > 1% indicates that a LEFT SHIFT is Present. BASO% 0.2 % (Normal) Range: 0-1 EO% 1.1 % (Normal) Range: 0-5 MONO% 7.8 % (Normal) Range: 0-10 LY% 11.2 % (Abnormal) Range: 19-41 NEUT% 79.5 % (Abnormal) Range: 47-70 MPV 11.4 fL (Normal) Range: 6.2-12.0 PLT 276 K/mm3 (Normal) Range: 150-450 RDW SD 52.1 fL (Abnormal) Range: 35.1-43.9 RDW CV 16.6 % (Abnormal) Range: 11.6-14.6 MCHC 32.2 {g/gl} (Normal) Range: 32-36 MCH 28.2 pg (Normal) Range: 27.0-32.0 MCV 87.6 fL (Normal) Range: 81-99 HCT 38.8 % (Normal) Range: 37-47 HGB 12.5 g/dL (Normal) Range: 12.0-15.0 RBC 4.43 {M/mm3} (Normal) Range: 4.2-5.4 WBC 9.4 K/mm3 (Normal) Range: 4.4-11.0 23-Jkh-527133:11 Comprehensive Metabolic Profil Comments: [facility] [address] [place], [place], [id number] GAP 9 (Normal) Range: 5-15 CO2 29.0 mmol/L (Normal) Range: 21.0-32.0 CL 99 mmol/L (Normal) Range: 98-107 K 4.0 mmol/L (Normal) Range: 3.5-5.1 NA 137 mmol/L (Normal) Range: 136-145 T BILI 0.50 mg/dL (Normal) Range: 0.20-1.00 ALT 23 U/L (Normal) Range: 12-78 ALK P 54 U/L (Normal) Range: 45-117 AST 15 U/L (Normal) Range: 15-37 CA 9.0 mg/dL (Normal) Range: 8.5-10.1 A/G 1.0 {RATIO} (Normal) Range: 0.9-2.4 GLOB 3.7 g/dL (Abnormal) Range: 2.3-3.5 ALB 3.6 g/dL (Normal) Range: 3.4-5.0 T PROT 7.3 g/dL (Normal) Range: 6.4-8.2 BUN/CRE 14.5 {RATIO} (Normal) Range: 10-20 EST GFR - AA 84 mL/min (Normal) Comments: GFR Calc EST GFR 70 mL/min (Normal) Comments: Non- GFR Calc CREAT,SERUM 0.90 mg/dL (Normal) Range: 0.55-1.02 Comments: The validity of the calculated GFR AND GFRAA in patients over70 years has not been determined. Clinical correlation isessential. BUN 13 mg/dL (Normal) Range: 7-18 GLU 100 mg/dL (Normal) Range: 70-110 82-Wdk-653124:59 CBC W/Diff, Automated Comments: [facility] [address] [place], [address] Absolute Lymph 1.33 {X10_3/ul} (Normal) Range: 0.83-4.51 Absolute Neut 1.8 {X10_3/uL} (Abnormal) Range: 2.0-7.7 IM GRAN % 0.300 % (Normal) Range: 0.0-0.9 Comments: IG% - Immature Granulocytes (promyelocytes, myelocytes andmetamyelocytes) > 1% indicates that a LEFT SHIFT is Present. BASO% 0.3 % (Normal) Range: 0-1 EO% 4.1 % (Normal) Range: 0-5 MONO% 11.1 % (Abnormal) Range: 0-10 LY% 36.1 % (Normal) Range: 19-41 NEUT% 48.1 % (Normal) Range: 47-70 MPV 11.1 fL (Normal) Range: 6.2-12.0 PLT 232 K/mm3 (Normal) Range: 150-450 RDW SD 48.3 fL (Abnormal) Range: 35.1-43.9 RDW CV 15.1 % (Abnormal) Range: 11.6-14.6 MCHC 31.7 {g/gl} (Abnormal) Range: 32-36 MCH 27.5 pg (Normal) Range: 27.0-32.0 MCV 86.6 fL (Normal) Range: 81-99 HCT 38.8 % (Normal) Range: 37-47 HGB 12.3 g/dL (Normal) Range: 12.0-15.0 RBC 4.48 {M/mm3} (Normal) Range: 4.2-5.4 WBC 3.7 K/mm3 (Abnormal) Range: 4.4-11.0 59-Fia-148646:59 Comprehensive Metabolic Profil Comments: [facility] [address] [place], [address] GAP 7 (Normal) Range: 5-15 CO2 28.0 mmol/L (Normal) Range: 21.0-32.0 CL 102 mmol/L (Normal) Range: 98-107 K 3.8 mmol/L (Normal) Range: 3.5-5.1 NA 137 mmol/L (Normal) Range: 136-145 T BILI 0.40 mg/dL (Normal) Range: 0.20-1.00 ALT 31 U/L (Normal) Range: 12-78 ALK P 44 U/L (Abnormal) Range: 50-136 AST 23 U/L (Normal) Range: 15-37 CA 8.7 mg/dL (Normal) Range: 8.5-10.1 A/G 1.1 {RATIO} (Normal) Range: 0.9-2.4 GLOB 3.2 g/dL (Normal) Range: 2.3-3.5 ALB 3.4 g/dL (Normal) Range: 3.4-5.0 T PROT 6.6 g/dL (Normal) Range: 6.4-8.2 BUN/CRE 16.7 {RATIO} (Normal) Range: 10-20 EST GFR - AA 84 mL/min (Normal) Comments: GFR Calc EST GFR 70 mL/min (Normal) Comments: Non- GFR Calc CREAT,SERUM 0.90 mg/dL (Normal) Range: 0.55-1.20 Comments: The validity of the calculated GFR AND GFRAA in patients over70 years has not been determined. Clinical correlation isessential. BUN 15 mg/dL (Normal) Range: 7-18 GLU 84 mg/dL (Normal) Range: 70-110 5-Jut-174987:15 CBC W/Diff, Automated Comments: [facility] [address] [place], [place], [id number] Absolute Lymph 0.51 {X10_3/ul} (Abnormal) Range: 0.83-4.51 Absolute Neut 8.5 {X10_3/uL} (Abnormal) Range: 2.0-7.7 IM GRAN % 0.200 % (Normal) Range: 0.0-0.9 Comments: IG% - Immature Granulocytes (promyelocytes, myelocytes andmetamyelocytes) > 1% indicates that a LEFT SHIFT is Present. BASO% 0.1 % (Normal) Range: 0-1 EO% 0.0 % (Normal) Range: 0-5 MONO% 7.8 % (Normal) Range: 0-10 LY% 5.2 % (Abnormal) Range: 19-41 NEUT% 86.7 % (Abnormal) Range: 47-70 MPV 10.4 fL (Normal) Range: 6.2-12.0 PLT 284 K/mm3 (Normal) Range: 150-450 RDW SD 47.7 fL (Abnormal) Range: 35.1-43.9 RDW CV 15.0 % (Abnormal) Range: 11.6-14.6 MCHC 31.9 {g/gl} (Abnormal) Range: 32-36 MCH 27.9 pg (Normal) Range: 27.0-32.0 MCV 87.6 fL (Normal) Range: 81-99 HCT 39.5 % (Normal) Range: 37-47 HGB 12.6 g/dL (Normal) Range: 12.0-15.0 RBC 4.51 {M/mm3} (Normal) Range: 4.2-5.4 WBC 9.8 K/mm3 (Normal) Range: 4.4-11.0 9-Ebu-550578:15 Comprehensive Metabolic Profil Comments: [facility] [address] [place], [place], [address] GAP 3 (Abnormal) Range: 5-15 CO2 28.0 mmol/L (Normal) Range: 21.0-32.0 CL 103 mmol/L (Normal) Range: 98-107 K 3.9 mmol/L (Normal) Range: 3.5-5.1 NA 134 mmol/L (Abnormal) Range: 136-145 T BILI 0.40 mg/dL (Normal) Range: 0.20-1.00 ALT 38 U/L (Normal) Range: 12-78 ALK P 45 U/L (Abnormal) Range: 50-136 AST 33 U/L (Normal) Range: 15-37 CA 9.0 mg/dL (Normal) Range: 8.5-10.1 A/G 0.9 {RATIO} (Normal) Range: 0.9-2.4 GLOB 3.7 g/dL (Abnormal) Range: 2.3-3.5 ALB 3.5 g/dL (Normal) Range: 3.4-5.0 T PROT 7.2 g/dL (Normal) Range: 6.4-8.2 BUN/CRE 22.0 {RATIO} (Abnormal) Range: 10-20 EST GFR - AA 83 mL/min (Normal) Comments: GFR Calc EST GFR 69 mL/min (Normal) Comments: Non- GFR Calc CREAT,SERUM 0.91 mg/dL (Normal) Range: 0.55-1.20 Comments: The validity of the calculated GFR AND GFRAA in patients over70 years has not been determined. Clinical correlation isessential. BUN 20 mg/dL (Abnormal) Range: 7-18 GLU 107 mg/dL (Normal) Range: 70-110 2-Wgj-687141:15 Quantiferon TB-Gold Comments: [facility] (refer to report for specific site)refer to report for address and phone number QFT TB INTER Comment (Normal) Comments: The QuantiFERON TB Gold (in Tube) assay is intended for useas an aid in the diagnosis of TB infection. Negativeresults suggest that there is no TB infection. In patientswith high suspicion of exposure, a negative test should berepeated. A positive test indicates infection withMycobacterium tuberculosis. Among individuals withouttuberculosis infection, a positive test may be due toexposure to M. [place] ii, M. szulgai or M. marinum. On theInternet, go to cdc.gov/tb for further details.Performed at: [address] [id number] Director: Jose L Patel PhD, Phone: [phone] QFT AG - NIL 0 {IU/mL} (Normal) QFT MITOGEN ANUPAM 1.03 {IU/mL} (Normal) QFT NIL VALUE 0.03 {IU/mL} (Normal) QFT TB AB VALUE 0.03 {IU/mL} (Normal) QFT TB POS CRIT Comment (Normal) Comments: To be considered positive a specimen should have a TB Agminus Nil value greater than or equal to 0.35 IU/mL and inaddition the TB Ag minus Nil value must be greater than orequal to 25% of the Nil value. There may be insufficientinformation in these values to differentiate between somenegative and some indeterminate test values. QFT TB GOLD Negative (Normal) Comments: The specimen received for QuantiFERON testing was incubatedby the ordering institution. Specific procedures outlinedin our Directory of Services and in the package insert forthe QuantiFERON Gold (In Tu be) test must be followed toenable for proper stimulation of cells for the productionof interferon gamma. 6-Aos-[id number]:43 CBC W/Diff, Automated Comments: [facility] [address] [place], [place], [id number] Absolute Lymph 0.86 {X10_3/ul} (Normal) Range: 0.83-4.51 Absolute Neut 5.0 {X10_3/uL} (Normal) Range: 2.0-7.7 IM GRAN % 0.200 % (Normal) Range: 0.0-0.9 Comments: IG% - Immature Granulocytes (promyelocytes, myelocytes andmetamyelocytes) > 1% indicates that a LEFT SHIFT is Present. BASO% 0.2 % (Normal) Range: 0-1 EO% 0.5 % (Normal) Range: 0-5 MONO% 5.3 % (Normal) Range: 0-10 LY% 13.8 % (Abnormal) Range: 19-41 NEUT% 80.0 % (Abnormal) Range: 47-70 MPV 9.6 fL (Normal) Range: 6.2-12.0 PLT 346 K/mm3 (Normal) Range: 150-450 RDW SD 55.3 fL (Abnormal) Range: 35.1-43.9 RDW CV 16.8 % (Abnormal) Range: 11.6-14.6 MCHC 30.6 {g/gl} (Abnormal) Range: 32-36 MCH 27.5 pg (Normal) Range: 27.0-32.0 MCV 89.8 fL (Normal) Range: 81-99 HCT 41.5 % (Normal) Range: 37-47 HGB 12.7 g/dL (Normal) Range: 12.0-15.0 RBC 4.62 {M/mm3} (Normal) Range: 4.2-5.4 WBC 6.3 K/mm3 (Normal) Range: 4.4-11.0 :43 Comprehensive Metabolic Profil Comments: [facility] [address] [place], [place], [id number] GAP 9 (Normal) Range: 5-15 CO2 29.0 mmol/L (Normal) Range: 21.0-32.0 CL 101 mmol/L (Normal) Range: 98-107 K 4.5 mmol/L (Normal) Range: 3.5-5.1 NA 139 mmol/L (Normal) Range: 136-145 T BILI 0.30 mg/dL (Normal) Range: 0.20-1.00 ALT 49 U/L (Normal) Range: 12-78 ALK P 50 U/L (Normal) Range: 50-136 AST 29 U/L (Normal) Range: 15-37 CA 9.4 mg/dL (Normal) Range: 8.5-10.1 A/G 1.0 {RATIO} (Normal) Range: 0.9-2.4 GLOB 3.9 g/dL (Abnormal) Range: 2.3-3.5 ALB 3.8 g/dL (Normal) Range: 3.4-5.0 T PROT 7.7 g/dL (Normal) Range: 6.4-8.2 BUN/CRE 22.4 {RATIO} (Abnormal) Range: 10-20 EST GFR - AA 80 mL/min (Normal) Comments: GFR Calc EST GFR 67 mL/min (Normal) Comments: Non- GFR Calc CREAT,SERUM 0.94 mg/dL (Normal) Range: 0.55-1.20 Comments: The validity of the calculated GFR AND GFRAA in patients over70 years has not been determined. Clinical correlation isessential. BUN 21 mg/dL (Abnormal) Range: 7-18 GLU 122 mg/dL (Abnormal) Range: 70-110 Comments: Fasting Glucose result from 110 to <126 mg/dLsuggests IMPAIRED HOMEOSTASIS per A.D.A. criteria. 31-Dwn-494705:00 CORTISOL SERUM Comments: [facility] [address] [facility] [place], [place], [id number] CORTISOL 11.80 ug/dL (Normal) Range: 3.09-22.40 Comments: Adult (AM) 4.30 - 22.40 ug/dL Adult (PM) 3.09 - 16.66 ug/dL 30-Lab-920087:00 DHEA Sulfate Comments: Has Patient had Radioactive Injection for X-ray?: [facility] (refer to report for specific site)refer to report for address and phone number DHEA SULF 0125 35.6 ug/dL (Abnormal) Range: 41.2-243.7 Comments: Performed at: [address] [id number] Director: Jose L Patel PhD, Phone: [phone] 29-Dmh-762244:00 Estradiol Comments: [facility] [address] [place], [place], [address] ESTRADIOL 11.4 pg/mL (Normal) Comments: NORMAL REFERENCE RANGES FEMALE FOLLICULAR 21.4 - 164.8 pg/mL MID-CYCLE PEAK 49.9 - 367.2 pg/mL LUTEAL 40.2 - 259.0 pg/mL POST-MENOPAUSAL ON MHT <11.0 - 462.1 pg/mL NOT ON MHT <11.0 - 58.3 pg/mL MALE <11.0 - 52 .5 pg/mLNOTE:[employer] HAS CONFIRMED THE DRUG FULVETRANT (FASLODEX) MAYCAUSE FALSELY ELEVATED ESTRADIOL RESULTS WHEN USING THISTEST METHOD. IF PATIENT IS TAKING FULVESTRANT AN ALTERNATIVEMETHOD SHOULD BE USED TO DETERMINE ESTRADIOL CONCENTRATION. 35-Phq-937776:00 Free T3 Comments: [facility] [address] [place], [place], [id number] FREE T3 3.1 pg/mL (Normal) Range: 2.18-3.98 43-Vcg-086711:00 Hemoglobin A1c Comments: [facility] [address] [place], [place], [id number] HGB A1C 6.1 % (Normal) Range: 4.2-6.3 37-Djq-673802:00 Progesterone Level Comments: [facility] [address] [place], [place], [id number] Progesterone 2.17 ng/mL (Normal) Comments: Progesterone Reference Table: UNITS Female: Follicular 0.15 - 1.40 ng/mL Luteal 3.34 - 25.56 ng/mL Mid-luteal 4.44 - 28.03 ng/mL Postmenopausal 0.0 - 0.73 ng/mL : 1st Trimester 11.22 - 90.00 ng /mL 2nd Trimester 25.55 - 89.40 ng/mL 3rd Trimester 48.40 -422.50 ng/mL 21-Szq-558672:00 T4 Free Direct Comments: [facility] [address] [place], [address] T4 FREE DIRECT 0.80 ng/dL (Normal) Range: 0.76-1.46 32-Tkw-600736:00 Testosterone, Serum Total Comments: [facility] [address] [place], [address] Testosterone 20 ng/dL (Normal) Range: 14-76 53-Wlx-679634:00 Thyroid Stim Hormone (TSH) Comments: [facility] [address] [place], [address] TSH 0.46 {uIU/mL} (Normal) Range: 0.358-3.74 94-Miu-144788:30 PAP I-G w/rfx hrHPV Comments: CYTOLOGY INFORMATION:- CLINICAL INFORMATION:- DATE LMP/MENOPAUSE: MENOPAUSE- COLLECTION VIAL: Thin Prep Vial- BATTERY RECHARGER SOURCE: CERVICAL/ENDOCERVICAL- COLLECTION TECHNIQUE: BRUSH/SPATULASpecimen Comment: [place] -[id number] Comment: No. of containers..01 CYTYC Thin Prep VialLabCorp (refer to report for specific site)refer to report for address and phone number HPV RFLX Comment (Normal) Comments: The HPV DNA reflex criteria were not met with this specimenresult therefore, no HPV testing was performed.Performed at: [address] [id number] Director: Selene Munoz MD, Phone: [phone] PAPSMR Comment (Normal) Comments: The Pap smear is a screening test designed to aid in thedetection of premalignant and malignant conditions of theuterine cervix. It is not a diagnostic procedure andshould not be used as the sole means of detecting cervicalcancer. Both false-positive and false-negative reports dooccur. COMM . (Normal) TEST METHOD Comment (Normal) Comments: This liquid based ThinPrep(R) pap test was screened withthe use of an image guided system. PERFORM Comment (Normal) Comments: Luisa Washington, [employer] [facility] [employer] (ASCP) ADEQ Comment (Normal) Comments: Satisfactory for evaluation. No endocervical component is identified. DIAGN Comment (Normal) Comments: NEGATIVE FOR INTRAEPITHELIAL LESION AND MALIGNANCY. 8-Hwq-467139:26 D-Dimer Quantitative (DVT/PE) Comments: [facility] [address] [place], [place], [id number] D-DIMER QUANT 0.30 {FEU/ug/m} (Normal) Range: 0.27-0.49 Comments: NORMAL D-Dimer level (<0.50) indicates no DVT or PE. :25 CK-MB Quantitative and Index Comments: 'TROP' Serial specimen #1, #2, #3, or #4: INT'CKMB' Serial Specimen #1, #2 or #3? [address] [place] [address] [id number] [place], [place], [id number] CKRI 1.3 % (Normal) Range: 0.0-1.4 Comments: RELATIVE INDEX >1.5% IS PRESUMPTIVELY POSITIVE CPKMB 2.2 ng/mL (Normal) Range: 0.0-5.0 Comments: CK-MB and RI Interpretation MB Relative Index Non-AMI <or= 5 NA Indeterminate > 5 <or= 4 AMI > 5 > 4 CPK TOTAL 170 U/L (Normal) Range: 26-192 :25 Troponin I (36546) Comments: 'TROP' Serial specimen #1, #2, #3, or #4: INT'CKMB' Serial Specimen #1, #2 or #3? [address] [place] [address] [id number] [place], [place], [id number] TROPONIN-I < 0.02 ng/mL (Normal) Comments: TROPONIN-I EXPECTED VALUES <0.05 NEGATIVE 0.06 - 0.59 AT RISK OF DE > OR = 0.60 SUGGEST DE 8-Pze-369146:13 Urinalysis, Office ([id number]) UA - LEUKOCYTE ESTERASE Negative (Normal) UA - NITRITE Negative (Normal) URINE UROBILINGN SRAVANI TIMED Normal mg/dL (Normal) UA - PROTEIN Negative mg/dL (Normal) UA - PH 6 (Abnormal) UA - BLOOD Negative (Normal) UA - SPECIFIC GRAVITY 1.020 (Normal) UA - KETONES Negative mg/dL (Normal) UA - BILIRUBIN Negative (Normal) UA - GLUCOSE Negative (Normal) :41 CBC W/Diff, Automated Comments: [facility] [address] [place], [place], [id number] Absolute Lymph 1.18 {X10_3/ul} (Normal) Range: 0.83-4.51 Absolute Neut 7.1 {X10_3/uL} (Normal) Range: 2.0-7.7 IM GRAN % 0.200 % (Normal) Range: 0.0-0.9 Comments: IG% - Immature Granulocytes (promyelocytes, myelocytes andmetamyelocytes) > 1% indicates that a LEFT SHIFT is Present. BASO% 0.1 % (Normal) Range: 0-1 EO% 0.1 % (Normal) Range: 0-5 MONO% 5.9 % (Normal) Range: 0-10 LY% 13.4 % (Abnormal) Range: 19-41 NEUT% 80.3 % (Abnormal) Range: 47-70 MPV 10.3 fL (Normal) Range: 6.2-12.0 PLT 327 K/mm3 (Normal) Range: 150-450 RDW SD 48.4 fL (Abnormal) Range: 35.1-43.9 RDW CV 15.0 % (Abnormal) Range: 11.6-14.6 MCHC 31.1 {g/gl} (Abnormal) Range: 32-36 MCH 27.6 pg (Normal) Range: 27.0-32.0 MCV 89.0 fL (Normal) Range: 81-99 HCT 41.2 % (Normal) Range: 37-47 HGB 12.8 g/dL (Normal) Range: 12.0-15.0 RBC 4.63 {M/mm3} (Normal) Range: 4.2-5.4 WBC 8.8 K/mm3 (Normal) Range: 4.4-11.0 84-Mjj-328755:41 Comprehensive Metabolic Profil Comments: [facility] [address] [place], [place], [id number] GAP 9 (Normal) Range: 5-15 CO2 27.0 mmol/L (Normal) Range: 21.0-32.0 CL 107 mmol/L (Normal) Range: 98-107 K 3.9 mmol/L (Normal) Range: 3.5-5.1 NA 143 mmol/L (Normal) Range: 136-145 T BILI 0.30 mg/dL (Normal) Range: 0.20-1.00 ALT 39 U/L (Normal) Range: 12-78 ALK P 53 U/L (Normal) Range: 50-136 AST 18 U/L (Normal) Range: 15-37 CA 9.3 mg/dL (Normal) Range: 8.5-10.1 A/G 1.0 {RATIO} (Normal) Range: 0.9-2.4 GLOB 4.0 g/dL (Abnormal) Range: 2.3-3.5 ALB 3.8 g/dL (Normal) Range: 3.4-5.0 T PROT 7.8 g/dL (Normal) Range: 6.4-8.2 BUN/CRE 20.6 {RATIO} (Abnormal) Range: 10-20 EST GFR - AA 73 mL/min (Normal) Comments: GFR Calc EST GFR 60 mL/min (Normal) Comments: Non- GFR Calc CREAT,SERUM 1.02 mg/dL (Normal) Range: 0.55-1.20 Comments: The validity of the calculated GFR AND GFRAA in patients over70 years has not been determined. Clinical correlation isessential. BUN 21 mg/dL (Abnormal) Range: 7-18 GLU 98 mg/dL (Normal) Range: 70-110 6-Dqv-223605:41 CBC W/Diff, Automated Comments: [facility] [address] [place], [place], [id number] Absolute Lymph 1.54 {X10_3/ul} (Normal) Range: 0.83-4.51 Absolute Neut 4.4 {X10_3/uL} (Normal) Range: 2.0-7.7 IM GRAN % 0.500 % (Normal) Range: 0.0-0.9 Comments: IG% - Immature Granulocytes (promyelocytes, myelocytes andmetamyelocytes) > 1% indicates that a LEFT SHIFT is Present. BASO% 0.5 % (Normal) Range: 0-1 EO% 1.1 % (Normal) Range: 0-5 MONO% 7.4 % (Normal) Range: 0-10 LY% 23.4 % (Normal) Range: 19-41 NEUT% 67.1 % (Normal) Range: 47-70 MPV 10.4 fL (Normal) Range: 6.2-12.0 PLT 328 K/mm3 (Normal) Range: 150-450 RDW SD 51.2 fL (Abnormal) Range: 35.1-43.9 RDW CV 15.7 % (Abnormal) Range: 11.6-14.6 MCHC 32.5 {g/gl} (Normal) Range: 32-36 MCH 29.2 pg (Normal) Range: 27.0-32.0 MCV 89.9 fL (Normal) Range: 81-99 HCT 40.9 % (Normal) Range: 37-47 HGB 13.3 g/dL (Normal) Range: 12.0-15.0 RBC 4.55 {M/mm3} (Normal) Range: 4.2-5.4 WBC 6.6 K/mm3 (Normal) Range: 4.4-11.0 5-Fqz-920669:41 Comprehensive Metabolic Profil Comments: [facility] [address] [place], [place], [id number] GAP 7 (Normal) Range: 5-15 CO2 30.0 mmol/L (Normal) Range: 21.0-32.0 CL 102 mmol/L (Normal) Range: 98-107 K 3.7 mmol/L (Normal) Range: 3.5-5.1 NA 139 mmol/L (Normal) Range: 136-145 T BILI 0.40 mg/dL (Normal) Range: 0.20-1.00 ALT 35 U/L (Normal) Range: 12-78 ALK P 50 U/L (Normal) Range: 50-136 AST 18 U/L (Normal) Range: 15-37 CA 9.2 mg/dL (Normal) Range: 8.5-10.1 A/G 1.0 {RATIO} (Normal) Range: 0.9-2.4 GLOB 3.7 g/dL (Abnormal) Range: 2.3-3.5 ALB 3.7 g/dL (Normal) Range: 3.4-5.0 T PROT 7.4 g/dL (Normal) Range: 6.4-8.2 BUN/CRE 13.2 {RATIO} (Normal) Range: 10-20 EST GFR - AA 64 mL/min (Normal) Comments: GFR Calc EST GFR 53 mL/min (Abnormal) Comments: Non- GFR Calc CREAT,SERUM 1.14 mg/dL (Normal) Range: 0.55-1.20 Comments: The validity of the calculated GFR AND GFRAA in patients over70 years has not been determined. Clinical correlation isessential. BUN 15 mg/dL (Normal) Range: 7-18 GLU 102 mg/dL (Normal) Range: 70-110 :44 CBC W/Diff, Automated Comments: [facility] [address] [place], [address] Absolute Lymph 3.85 {X10_3/ul} (Normal) Range: 0.83-4.51 Absolute Neut 6.0 {X10_3/uL} (Normal) Range: 2.0-7.7 IM GRAN % 1.000 % (Abnormal) Range: 0.0-0.9 Comments: IG% - Immature Granulocytes (promyelocytes, myelocytes andmetamyelocytes) > 1% indicates that a LEFT SHIFT is Present. BASO% 0.1 % (Normal) Range: 0-1 EO% 1.1 % (Normal) Range: 0-5 MONO% 5.1 % (Normal) Range: 0-10 LY% 36.1 % (Normal) Range: 19-41 NEUT% 56.6 % (Normal) Range: 47-70 MPV 9.4 fL (Normal) Range: 6.2-12.0 PLT 340 K/mm3 (Normal) Range: 150-450 RDW SD 59.0 fL (Abnormal) Range: 35.1-43.9 RDW CV 17.4 % (Abnormal) Range: 11.6-14.6 MCHC 30.7 {g/gl} (Abnormal) Range: 32-36 MCH 28.5 pg (Normal) Range: 27.0-32.0 MCV 92.8 fL (Normal) Range: 81-99 HCT 37.4 % (Normal) Range: 37-47 HGB 11.5 g/dL (Abnormal) Range: 12.0-15.0 RBC 4.03 {M/mm3} (Abnormal) Range: 4.2-5.4 WBC 10.7 K/mm3 (Normal) Range: 4.4-11.0 [id number] Comprehensive Metabolic Profil Comments: ORDERED LIPID,CMPDR.LIOR ORDERED C[facility] [id number] [place], [place], [id number] GAP 8 (Normal) Range: 5-15 CO2 29.0 mmol/L (Normal) Range: 21.0-32.0 CL 104 mmol/L (Normal) Range: 98-107 K 3.9 mmol/L (Normal) Range: 3.5-5.1 NA 141 mmol/L (Normal) Range: 136-145 T BILI 0.50 mg/dL (Normal) Range: 0.20-1.00 ALT 37 U/L (Normal) Range: 12-78 ALK P 55 U/L (Normal) Range: 50-136 AST 20 U/L (Normal) Range: 15-37 CA 8.7 mg/dL (Normal) Range: 8.5-10.1 A/G 0.9 {RATIO} (Normal) Range: 0.9-2.4 GLOB 3.5 g/dL (Normal) Range: 2.3-3.5 ALB 3.0 g/dL (Abnormal) Range: 3.4-5.0 T PROT 6.5 g/dL (Normal) Range: 6.4-8.2 BUN/CRE 13.2 {RATIO} (Normal) Range: 10-20 EST GFR - AA 70 mL/min (Normal) EST GFR 58 mL/min (Abnormal) CREAT,SERUM 1.06 mg/dL (Normal) Range: 0.55-1.20 Comments: The validity of the calculated GFR AND GFRAA in patients over70 years has not been determined. Clinical correlation isessential. BUN 14 mg/dL (Normal) Range: 7-18 GLU 78 mg/dL (Normal) Range: 70-110 [id number] Lipid Profile Comments: ORDERED LIPID,CMP ORDERED CMP,[facility] [id number] [place], [place], [id number] VLDL 33 mg/dL (Normal) Range: 5-40 LDL 108 mg/dL (Normal) Range: 0-130 HDL 72 mg/dL (Normal) Comments: Reference Range HDL <40 mg/dL Low HDL Cholesterol HDL >or= 60 mg/dL High HDL Cholesterol TRIG 164 mg/dL (Normal) Comments: Serum Triglycerides Reference Interval Normal <150 mg/dL Borderline high 150 - 199 mg/dL High 200 - 499 mg/dL Very High > or = 500 mg/dL CHOL 213 mg/dL (Abnormal) Comments: <200 mg/dL Desirable 200-240 mg/dL Borderline >240 mg/dL High Risk [id number] CBC W/Diff, Automated Comments: [facility] [id number] [place], [address] Absolute Lymph 1.65 {X10_3/ul} (Normal) Range: 0.83-4.51 Absolute Neut 10.2 {X10_3/uL} (Abnormal) Range: 2.0-7.7 IM GRAN % 0.300 % (Normal) Range: 0.0-0.9 Comments: IG% - Immature Granulocytes (promyelocytes, myelocytes andmetamyelocytes) > 1% indicates that a LEFT SHIFT is Present. BASO% 0.2 % (Normal) Range: 0-1 EO% 2.2 % (Normal) Range: 0-5 MONO% 2.7 % (Normal) Range: 0-10 LY% 13.2 % (Abnormal) Range: 19-41 NEUT% 81.4 % (Abnormal) Range: 47-70 MPV 9.5 fL (Normal) Range: 6.2-12.0 PLT 439 K/mm3 (Normal) Range: 150-450 RDW SD 51.7 fL (Abnormal) Range: 35.1-43.9 RDW CV 15.5 % (Abnormal) Range: 11.6-14.6 MCHC 31.9 {g/gl} (Abnormal) Range: 32-36 MCH 29.0 pg (Normal) Range: 27.0-32.0 MCV 90.8 fL (Normal) Range: 81-99 HCT 35.7 % (Abnormal) Range: 37-47 HGB 11.4 g/dL (Abnormal) Range: 12.0-15.0 RBC 3.93 {M/mm3} (Abnormal) Range: 4.2-5.4 WBC 12.5 K/mm3 (Abnormal) Range: 4.4-11.0 :46 Comprehensive Metabolic Profil Comments: [facility] [id number] [address] [place], [place], [id number] GAP 9 (Normal) Range: 5-15 CO2 31.0 mmol/L (Normal) Range: 21.0-32.0 CL 96 mmol/L (Abnormal) Range: 98-107 K 3.1 mmol/L (Abnormal) Range: 3.5-5.1 NA 136 mmol/L (Normal) Range: 136-145 T BILI 0.40 mg/dL (Normal) Range: 0.20-1.00 ALT 22 U/L (Normal) Range: 12-78 ALK P 68 U/L (Normal) Range: 50-136 AST 22 U/L (Normal) Range: 15-37 CA 9.2 mg/dL (Normal) Range: 8.5-10.1 A/G 0.6 {RATIO} (Abnormal) Range: 0.9-2.4 GLOB 4.5 g/dL (Abnormal) Range: 2.3-3.5 ALB 2.9 g/dL (Abnormal) Range: 3.4-5.0 T PROT 7.4 g/dL (Normal) Range: 6.4-8.2 BUN/CRE 12.1 {RATIO} (Normal) Range: 10-20 EST GFR - AA 76 mL/min (Normal) EST GFR 63 mL/min (Normal) CREAT,SERUM 0.99 mg/dL (Normal) Range: 0.55-1.20 Comments: The validity of the calculated GFR AND GFRAA in patients over70 years has not been determined. Clinical correlation isessential. BUN 12 mg/dL (Normal) Range: 7-18 GLU 141 mg/dL (Abnormal) Range: 70-110 Comments: Fasting Glucose result greater than or equal to 126 mg/dLsuggests DIABETES MELLITUS per A.D.A. criteria. :46 Culture, Sputum Comments: [facility] [address] [place], [id number] CUSP See Note (Normal) Comments: Gram StainAcceptable Specimen? Yes (<25 Epithelial cells per/lpf) Gram Stain Rare Gram positive rods 3+ Gram positive cocci 3+ White Blood Cells Rare Epithelial cells Resp. CultureMixed normal respiratory roxanne. No Streptococcus pneumoniae, beta-hemolytic Streptococcus or Staphylococcus aureus isolated. :13 CBC W/Diff, Automated Comments: Test performed at:[facility] [address] [facility] [place] [address] Absolute Lymph 1.78 {X10_3/ul} (Normal) Range: 0.83-4.51 Absolute Neut 3.0 {X10_3/uL} (Normal) Range: 2.0-7.7 IM GRAN % 0.200 % (Normal) Range: 0.0-0.9 Comments: IG% - Immature Granulocytes (promyelocytes, myelocytes andmetamyelocytes) > 1% indicates that a LEFT SHIFT is Present. BASO% 0.4 % (Normal) Range: 0-1 EO% 3.4 % (Normal) Range: 0-5 MONO% 6.8 % (Normal) Range: 0-10 LY% 33.4 % (Normal) Range: 19-41 NEUT% 55.8 % (Normal) Range: 47-70 MPV 10.3 fL (Normal) Range: 6.2-12.0 PLT 268 K/mm3 (Normal) Range: 150-450 RDW SD 54.7 fL (Abnormal) Range: 35.1-43.9 RDW CV 16.3 % (Abnormal) Range: 11.6-14.6 MCHC 31.6 {g/gl} (Abnormal) Range: 32-36 MCH 29.3 pg (Normal) Range: 27.0-32.0 MCV 92.7 fL (Normal) Range: 81-99 HCT 38.0 % (Normal) Range: 37-47 HGB 12.0 g/dL (Normal) Range: 12.0-15.0 RBC 4.10 {M/mm3} (Abnormal) Range: 4.2-5.4 WBC 5.3 K/mm3 (Normal) Range: 4.4-11.0 20-Rjn-386735:13 Comprehensive Metabolic Profil Comments: Test performed at:[facility] [address] [facility] [place] [address] GAP 7 (Normal) Range: 5-15 CO2 26.0 mmol/L (Normal) Range: 21.0-32.0 CL 105 mmol/L (Normal) Range: 98-107 K 4.0 mmol/L (Normal) Range: 3.5-5.1 NA 138 mmol/L (Normal) Range: 136-145 T BILI 0.30 mg/dL (Normal) Range: 0.20-1.00 ALT 27 U/L (Normal) Range: 12-78 ALK P 53 U/L (Normal) Range: 50-136 AST 19 U/L (Normal) Range: 15-37 CA 8.8 mg/dL (Normal) Range: 8.5-10.1 A/G 1.0 {RATIO} (Normal) Range: 0.9-2.4 GLOB 3.6 g/dL (Abnormal) Range: 2.3-3.5 ALB 3.5 g/dL (Normal) Range: 3.4-5.0 T PROT 7.1 g/dL (Normal) Range: 6.4-8.2 BUN/CRE 18.4 {RATIO} (Normal) Range: 10-20 EST GFR - AA 78 mL/min (Normal) EST GFR 64 mL/min (Normal) CREAT,SERUM 0.98 mg/dL (Normal) Range: 0.55-1.20 Comments: Please note revised CREATININE reference range /22/2015. BUN 18 mg/dL (Normal) Range: 7-18 GLU 124 mg/dL (Abnormal) Range: 70-110 Comments: Fasting Glucose result from 110 to <126 mg/dLsuggests IMPAIRED HOMEOSTASIS per A.D.A. criteria. 0-Hgg-753732:5 ENDOMETRIAL BX/CURETTINGS See Note (Normal) Comments: Test performed at:[facility] [address] [place] [address] 4 Comments: Patient: TIN BLACKWOOD : 1960 (53/F) Acct Num: [id number] Phys: Allie Bales MD Unit Num: [id number] Loc: [facility] [place] Specimen: [id number] Received: 11/06/14 - 7833 Spec Type: ENDOM BX/C TISSUES TISSUES: GROSS DESCRIPTION Received is one container labeled with the patient name and designated endometrial curettings. The specimen consists of multiple fragments o f hemorrhagic soft tissue measuring in aggregate 5 x 2 x 0.2 cm. The entire specimen is submitted in two cassettes. / SJ:sl 11/06/14 TC:5 CPT: 29574 HEADER OPERATION: Hysteroscopy, diagnosti c, D AND C PRE-OP DIAGNOSIS: Menorrhagia, thickened endometrium TISSUE SUBMITTED: Endometrial curettings MICROSCOPIC DIAGNOSIS Endometrium, curettings: Secretory endometrium. AM:s l 11/07/14 Signed Michael Frandy 11/07/14 <signature on file> 4-Ksi-272814:48 Partial Thromboplast Time Comments: Test performed at:[facility] [address] [place] [address] PTT 26.6 s (Normal) Range: 24.1-36.2 8-Qjl-003825:48 Prothrombin Time w/INR Comments: Test performed at:[facility] [address] [place] [address] INR 0.9 (Normal) PROTIME 12.2 s (Normal) Range: 11.7-14.9 9-Mtx-902383:18 ,Urine Comments: Order Date: 11/06/14Has pt arrived? YTest performed at:[facility] [address] [place] [address] HCGUQUAL Negative {Negative} (Normal) Comments: Very dilute urine specimens, as indicated by a low specificgravity, may not contain outbound call center representative levels of hCG.If is still suspected, a first morning urinespecimen should be collected 48 hours later and tested. :26 Estradiol Comments: Test performed at:[facility] [address] [place] [address] ESTRADIOL 13.1 pg/mL (Normal) Comments: NORMAL REFERENCE RANGES FEMALE FOLLICULAR 21.4 - 164.8 pg/mL MID-CYCLE PEAK 49.9 - 367.2 pg/mL LUTEAL 40.2 - 259.0 pg/mL POST-MENOPAUSAL ON MHT <11.0 - 462.1 pg/mL NOT ON MHT <11.0 - 58.3 pg/mL MALE <11.0 - 52 .5 pg/mLNEW TEST METHOD AND REFERENCE RANGE SEPTEMBER 22, 2011:26 Free T3 Comments: Test performed at:[facility] [address] [place] [address] FREE T3 3.0 pg/mL (Normal) Range: 2.18-3.98 :26 Hemoglobin A1c Comments: Test performed at:[facility] [address] [place] [address] ; ordered by other doctor HGB A1C 5.7 % (Normal) Range: 4.2-6.3 :26 Progesterone Level Comments: Test performed at:[facility] [address] [place] [address] Progesterone 0.34 ng/mL (Normal) Comments: Progesterone Reference Table: UNITS Female: Follicular 0.15 - 1.40 ng/mL Luteal 3.34 - 25.56 ng/mL Mid-luteal 4.44 - 28.03 ng/mL Postmenopausal 0.0 - 0.73 ng/mL : 1st Trimester 11.22 - 90.00 ng /mL 2nd Trimester 25.55 - 89.40 ng/mL 3rd Trimester 48.40 -422.50 ng/mL :26 T4 Free Direct Comments: Test performed at:[facility] [address] [place] [address] T4 FREE DIRECT 0.77 ng/dL (Normal) Range: 0.76-1.46 :26 Testosterone, Serum Total Comments: Test performed at:[facility] [address] [place] [address] Testosterone 30 ng/dL (Normal) Range: 14-76 Comments: ADDENDA: ordered by Dr. Bales :26 Thyroid Stim Hormone (TSH) Comments: Test performed at:[facility] [address] [place] [address] TSH 0.84 {uIU/mL} (Normal) Range: 0.358-3.74 7-Dlu-072433:03 17-Hydroxypregnenolone, MS Comments: PATIENT NOT FASTINGPERFORMED BY: NILE CipherMaxrp [address] [place] [id number] BY: ES [employer] Zjdjowocbpssq2661 [facility] [id number] 17 [place] Pregnenolone, 14 ng/dL (Abnormal) Comments: Reference Range:Adults: 53 - 357 Serum, MS hCG,Beta Negative m[iU]/mL Comments: PATIENT NOT FASTINGPERFORMED BY: [employer]arcia The[employer]rp Zxtdon[address] [facility] [place] [id number] BY: ES [employer] Ryhazvgbfohgi6397 [facility] [id number] 2:03 Subunit,Qual,Serum (Normal) Prolactin 10.9 ng/mL (Normal) Comments: PATIENT NOT FASTINGPERFORMED BY: [employer] LabIdeagenrp [address]fshub[address] [facility] [place] [id number] BY: ES [employer] Erplqqpndpqxv6651 [facility] [id number] 2:03 Range: 4.8-23.3 1-Lcn-431913:03 Prothrombin Time (PT) Comments: PATIENT NOT FASTINGPERFORMED BY: [employer]rp [address] [facility] [place] [id number] BY: ES EsoterDA [employer] Pvetfrlvvwigh4519 [facility] [id number] 11Clinical Information: [id number], [id number] Prothrombin Time 10.5 {sec} (Normal) Range: 9.1-12.0 INR 1.0 (Normal) Range: 0.8-1.2 Comments: Reference interval is for non-anticoagulated patients. . Suggested INR therapeutic range for Vitamin K anta gonist therapy: Standard Dose (moderate intensity therapeutic range): 2.0 - 3.0 Higher intensity therapeutic range 2.5 - 3.5 9-Vgy-551632:03 PTT, Activated Comments: PATIENT NOT FASTINGPERFORMED BY: [employer] LabCoAccess Northeast Tr[address]wa[address] [facility] [place] [id number] BY: [employer] Lprvishglfjwa8825 [facility] [id number] aPTT 27 {sec} (Normal) Range: 24-33 Comments: This test has not been validated for monitoring unfractionated heparintherapy. aPTT-based therapeutic ranges for unfractionated heparintherapy have not been established. For general guidelines onHeparin monitoring, refer to the [facility] Directory of Services. 6-Rwv-616697:03 Thyroxine (T4) Free, Comments: PATIENT NOT FASTINGPERFORMED BY: [place] [id number] [facility] [id number] BY: [address] [id number] Direct, S T4,Free(Direct) 0.87 ng/dL (Normal) Range: 0.82-1.77 4-Rek-455832:0 TSH 0.723 {uIU/mL} Comments: PATIENT NOT FASTINGPERFORMED BY: [address] [id number] BY: ComputeCindy [place] 6078501 [facility] [id number] 3 (Normal) Range: 0.450-4.500 5-Iob-258887:01 CBC W/Diff, Automated Comments: Test performed at:[facility] [address] [place], [place] [id number] Absolute Lymph 1.51 {X10_3/ul} (Normal) Range: 0.83-4.51 Absolute Neut 3.5 {X10_3/uL} (Normal) Range: 2.0-7.7 IM GRAN % 0.400 % (Normal) Range: 0.0-0.9 Comments: IG% - Immature Granulocytes (promyelocytes, myelocytes andmetamyelocytes) > 1% indicates that a LEFT SHIFT is Present. BASO% 0.2 % (Normal) Range: 0-1 EO% 2.5 % (Normal) Range: 0-5 MONO% 8.0 % (Normal) Range: 0-10 LY% 26.7 % (Normal) Range: 19-41 NEUT% 62.2 % (Normal) Range: 47-70 MPV 10.4 fL (Normal) Range: 6.2-12.0 PLT 327 K/mm3 (Normal) Range: 150-450 RDW SD 51.3 fL (Abnormal) Range: 35.1-43.9 RDW CV 15.4 % (Abnormal) Range: 11.6-14.6 MCHC 31.2 {g/gl} (Abnormal) Range: 32-36 MCH 29.6 pg (Normal) Range: 27.0-32.0 MCV 94.7 fL (Normal) Range: 81-99 HCT 39.7 % (Normal) Range: 37-47 HGB 12.4 g/dL (Normal) Range: 12.0-15.0 RBC 4.19 {M/mm3} (Abnormal) Range: 4.2-5.4 WBC 5.7 K/mm3 (Normal) Range: 4.4-11.0 0-Lzo-009643:01 Comprehensive Metabolic Profil Comments: Test performed at:[facility] [address] [place], [place] [id number] GAP 7 (Normal) Range: 5-15 CO2 28.0 mmol/L (Normal) Range: 21.0-32.0 CL 102 mmol/L (Normal) Range: 98-107 K 4.1 mmol/L (Normal) Range: 3.5-5.1 NA 137 mmol/L (Normal) Range: 136-145 T BILI 0.30 mg/dL (Normal) Range: 0.00-4.00 ALT 21 U/L (Normal) Range: 12-78 ALK P 68 U/L (Normal) Range: 50-136 AST 14 U/L (Abnormal) Range: 15-37 CA 8.8 mg/dL (Normal) Range: 8.5-10.1 A/G 0.8 {RATIO} (Abnormal) Range: 0.9-2.4 GLOB 4.1 g/dL (Normal) Range: 2.7-4.2 ALB 3.4 g/dL (Normal) Range: 3.4-5.0 T PROT 7.5 g/dL (Normal) Range: 6.4-8.2 BUN/CRE 14.4 {RATIO} (Normal) Range: 10-20 EST GFR - AA 85 mL/min (Normal) EST GFR 70 mL/min (Normal) CREAT,SERUM 0.9 mg/dL (Normal) Range: 0.6-1.0 BUN 13 mg/dL (Normal) Range: 7-18 GLU 94 mg/dL (Normal) Range: 70-110 12-Uxj-347242:09 Urine Test, Office (57190) Urine Test, Office Negative (Normal) 97-Zgq-424330:09 Urinalysis, Office (05279) UA - LEUKOCYTE ESTERASE Negative (Normal) UA - NITRITE Negative (Normal) URINE UROBILINGN SRAVANI TIMED Normal mg/dL (Normal) UA - PROTEIN Negative mg/dL (Normal) UA - PH 6 (Abnormal) UA - BLOOD Negative (Normal) UA - SPECIFIC GRAVITY 1.025 (Normal) UA - KETONES Negative mg/dL (Normal) UA - BILIRUBIN Negative (Normal) UA - GLUCOSE Negative (Normal) 3-Wsk-935397:14 CBC W/Diff, Automated Comments: Test performed at:[facility] [address] [place], [place] [address] Absolute Lymph 2.05 {X10_3/ul} (Normal) Range: 0.83-4.51 Absolute Neut 5.6 {X10_3/uL} (Normal) Range: 2.0-7.7 IM GRAN % 0.100 % (Normal) Range: 0.0-0.9 Comments: IG% - Immature Granulocytes (promyelocytes, myelocytes andmetamyelocytes) > 1% indicates that a LEFT SHIFT is Present. BASO% 0.1 % (Normal) Range: 0-1 EO% 2.6 % (Normal) Range: 0-5 MONO% 7.4 % (Normal) Range: 0-10 LY% 23.9 % (Normal) Range: 19-41 NEUT% 65.9 % (Normal) Range: 47-70 MPV 10.3 fL (Normal) Range: 6.2-12.0 PLT 337 K/mm3 (Normal) Range: 150-450 RDW SD 53.3 fL (Abnormal) Range: 35.1-43.9 RDW CV 15.5 % (Abnormal) Range: 11.6-14.6 MCHC 31.8 {g/gl} (Abnormal) Range: 32-36 MCH 29.9 pg (Normal) Range: 27.0-32.0 MCV 94.0 fL (Normal) Range: 81-99 HCT 42.1 % (Normal) Range: 37-47 HGB 13.4 g/dL (Normal) Range: 12.0-15.0 RBC 4.48 {M/mm3} (Normal) Range: 4.2-5.4 WBC 8.6 K/mm3 (Normal) Range: 4.4-11.0 2-Yvd-131903:14 Comprehensive Metabolic Profil Comments: Test performed at:[facility] [address] [place] [address] GAP 2 (Abnormal) Range: 5-15 CO2 32.0 mmol/L (Normal) Range: 21.0-32.0 CL 103 mmol/L (Normal) Range: 98-107 K 3.8 mmol/L (Normal) Range: 3.5-5.1 NA 137 mmol/L (Normal) Range: 136-145 T BILI 0.30 mg/dL (Normal) Range: 0.00-4.00 ALT 28 U/L (Normal) Range: 12-78 ALK P 66 U/L (Normal) Range: 50-136 AST 13 U/L (Abnormal) Range: 15-37 CA 9.0 mg/dL (Normal) Range: 8.5-10.1 A/G 1.0 {RATIO} (Normal) Range: 0.9-2.4 GLOB 3.8 g/dL (Normal) Range: 2.7-4.2 ALB 3.9 g/dL (Normal) Range: 3.4-5.0 T PROT 7.7 g/dL (Normal) Range: 6.4-8.2 BUN/CRE 17.0 {RATIO} (Normal) Range: 10-20 EST GFR - AA 75 mL/min (Normal) EST GFR 62 mL/min (Normal) CREAT,SERUM 1.0 mg/dL (Normal) Range: 0.6-1.0 BUN 17 mg/dL (Normal) Range: 7-18 GLU 102 mg/dL (Normal) Range: 70-110 72-Dcj-098946:18 CBCD ALC 1.55 {X10_3/ul} (Normal) Range: 0.83-4.51 ANC 4.7 {X10_3/uL} (Normal) Range: 2.0-7.7 IG% 0.300 % (Normal) Range: 0.0-0.9 Comments: IG% - Immature Granulocytes (promyelocytes, myelocytes andmetamyelocytes) > 1% indicates that a LEFT SHIFT is Present. B% 0.3 % (Normal) Range: 0-1 E% 3.4 % (Normal) Range: 0-5 M% 9.0 % (Normal) Range: 0-10 L% 21.7 % (Normal) Range: 19-41 N% 65.3 % (Normal) Range: 47-70 MPV 9.6 fL (Normal) Range: 6.2-12.0 PLT 459 K/mm3 (Abnormal) Range: 150-450 RDWSD 48.6 fL (Abnormal) Range: 35.1-43.9 RDWCV 14.8 % (Abnormal) Range: 11.6-14.6 MCHC 32.4 {g/gl} (Normal) Range: 32-36 MCH 30.9 pg (Normal) Range: 27.0-32.0 MCV 95.4 fL (Normal) Range: 81-99 HCT 37.4 % (Normal) Range: 37-47 HGB 12.1 g/dL (Normal) Range: 12.0-15.0 RBC 3.92 {M/mm3} (Abnormal) Range: 4.2-5.4 WBC 7.2 K/mm3 (Normal) Range: 4.4-11.0 89-Fzw-678680:18 CMP GAP 4 (Abnormal) Range: 5-15 CO2 31.0 mmol/L (Normal) Range: 21.0-32.0 CL 102 mmol/L (Normal) Range: 98-107 K 3.9 mmol/L (Normal) Range: 3.5-5.1 NA 137 mmol/L (Normal) Range: 136-145 BIT 0.20 mg/dL (Normal) Range: 0.00-4.00 ALT 28 U/L (Normal) Range: 12-78 ALK 65 U/L (Normal) Range: 50-136 AST 17 U/L (Normal) Range: 15-37 CA 8.7 mg/dL (Normal) Range: 8.5-10.1 AG 0.9 {RATIO} (Normal) Range: 0.9-2.4 GLOB 3.6 g/dL (Normal) Range: 2.7-4.2 ALB 3.3 g/dL (Abnormal) Range: 3.4-5.0 TPROT 6.9 g/dL (Normal) Range: 6.4-8.2 BC 16.3 {RATIO} (Normal) Range: 10-20 GFRAA 97 mL/min (Normal) GFR 80 mL/min (Normal) CREAT 0.8 mg/dL (Normal) Range: 0.6-1.0 BUN 13 mg/dL (Normal) Range: 7-18 GLU 92 mg/dL (Normal) Range: 70-110 1-Bby-938048:31 CBCD ALC 1.45 {X10_3/ul} (Normal) Range: 0.83-4.51 ANC 3.8 {X10_3/uL} (Normal) Range: 2.0-7.7 IG% 0.300 % (Normal) Range: 0.0-0.9 Comments: IG% - Immature Granulocytes (promyelocytes, myelocytes andmetamyelocytes) > 1% indicates that a LEFT SHIFT is Present. B% 0.2 % (Normal) Range: 0-1 E% 1.4 % (Normal) Range: 0-5 M% 6.6 % (Normal) Range: 0-10 L% 25.1 % (Normal) Range: 19-41 N% 66.4 % (Normal) Range: 47-70 MPV 10.1 fL (Normal) Range: 6.2-12.0 PLT 302 K/mm3 (Normal) Range: 150-450 RDWSD 53.6 fL (Abnormal) Range: 35.1-43.9 RDWCV 15.2 % (Abnormal) Range: 11.6-14.6 MCHC 32.0 {g/gl} (Normal) Range: 32-36 MCH 30.9 pg (Normal) Range: 27.0-32.0 MCV 96.8 fL (Normal) Range: 81-99 HCT 39.1 % (Normal) Range: 37-47 HGB 12.5 g/dL (Normal) Range: 12.0-15.0 RBC 4.04 {M/mm3} (Abnormal) Range: 4.2-5.4 WBC 5.8 K/mm3 (Normal) Range: 4.4-11.0 :31 CMP GAP 5 (Normal) Range: 5-15 CO2 29.0 mmol/L (Normal) Range: 21.0-32.0 CL 105 mmol/L (Normal) Range: 98-107 K 4.2 mmol/L (Normal) Range: 3.5-5.1 NA 139 mmol/L (Normal) Range: 136-145 BIT 0.40 mg/dL (Normal) Range: 0.00-1.00 ALT 25 U/L (Normal) Range: 12-78 ALK 49 U/L (Normal) Range: 45-117 AST 16 U/L (Normal) Range: 15-37 CA 9.1 mg/dL (Normal) Range: 8.5-10.1 AG 1.0 {RATIO} (Normal) Range: 0.9-2.4 GLOB 3.4 g/dL (Normal) Range: 2.7-4.2 ALB 3.5 g/dL (Normal) Range: 3.4-5.0 TPROT 6.9 g/dL (Normal) Range: 6.4-8.2 BC 14.0 {RATIO} (Normal) Range: 10-20 GFRAA 75 mL/min (Normal) GFR 62 mL/min (Normal) CREAT 1.0 mg/dL (Normal) Range: 0.6-1.0 BUN 14 mg/dL (Normal) Range: 7-18 GLU 122 mg/dL (Abnormal) Range: 70-110 Comments: Fasting Glucose result from 110 to <126 mg/dLsuggests IMPAIRED HOMEOSTASIS per A.D.A. criteria. :45 CBCD ANC 5.0 {X10_3/uL} (Normal) Range: 2.0-7.7 IG% 0.300 % (Normal) Range: 0.0-0.9 Comments: IG% - Immature Granulocytes (promyelocytes, myelocytes andmetamyelocytes) > 1% indicates that a LEFT SHIFT is Present. B% 0.3 % (Normal) Range: 0-1 E% 1.5 % (Normal) Range: 0-5 L% 28.4 % (Normal) Range: 19-41 M% 4.4 % (Normal) Range: 0-10 MPV 10.3 fL (Normal) Range: 6.2-12.0 N% 65.1 % (Normal) Range: 47-70 PLT 279 K/mm3 (Normal) Range: 150-450 RDWSD 47.3 fL (Abnormal) Range: 35.1-43.9 RDWCV 14.3 % (Normal) Range: 11.6-14.6 MCH 30.4 pg (Normal) Range: 27.0-32.0 MCHC 33.3 {g/gl} (Normal) Range: 32-36 MCV 91.2 fL (Normal) Range: 81-99 HCT 37.5 % (Normal) Range: 37-47 HGB 12.5 g/dL (Normal) Range: 12.0-15.0 RBC 4.11 {M/mm3} (Abnormal) Range: 4.2-5.4 WBC 7.6 K/mm3 (Normal) Range: 4.4-11.0 2-Wpl-062936:45 CMP GAP 8 (Normal) Range: 5-15 CO2 28.0 mmol/L (Normal) Range: 21.0-32.0 CL 100 mmol/L (Normal) Range: 98-107 K 3.6 mmol/L (Normal) Range: 3.5-5.1 NA 136 mmol/L (Normal) Range: 136-145 BIT 0.40 mg/dL (Normal) Range: 0.00-1.00 ALT 25 U/L (Normal) Range: 12-78 ALK 59 U/L (Normal) Range: 45-117 AST 15 U/L (Normal) Range: 15-37 CA 9.3 mg/dL (Normal) Range: 8.5-10.1 AG 1.1 {RATIO} (Normal) Range: 0.9-2.4 GLOB 3.4 g/dL (Normal) Range: 2.7-4.2 ALB 3.6 g/dL (Normal) Range: 3.4-5.0 TPROT 7.0 g/dL (Normal) Range: 6.4-8.2 BC 22.0 {RATIO} (Abnormal) Range: 10-20 GFRAA 75 mL/min (Normal) GFR 62 mL/min (Normal) BUN 22 mg/dL (Abnormal) Range: 7-18 CREAT 1.0 mg/dL (Normal) Range: 0.6-1.0 GLU 107 mg/dL (Normal) Range: 70-110 :50 Blood Glucose , Office (17368) Blood Glucose , Office 143 (Normal) Comments: non-fasting :50 HgA1C , Office (76326) HgA1C , Office 5.8 % (Normal) Range: 4.6 - 7.1 :36 ISIAH Negative (Normal) Comments: Performed at: - [facility] [address] [id number] Director: Ricardo Pace MD, Phone: [phone] :36 CCP < 1 {units} (Normal) Range: 0-19 Comments: Negative <20Weak positive 20 - 39Moderate positive 40 - 59Strong positive >59Performed at: - [facility] [id number] Director: Stepan Hernandez MD, Phone: [phone] :[phone] CRP 3.36 mg/L (Abnormal) Range: 0.0-3.0 Comments: C-Reactive Protein (CRP) provides useful information for thediagnosis, therapy and monitoring of inflammatory processesand associated diseases. For the evaluation of Relative Riskfor Cardiovascular Dise ase, a High Sensitivity CRP (HSCRP)should be ordered. :36 RF < 10.0 {IU/mL} (Normal) :36 SED tSEDRATE 18 mm/h (Normal) Range: 0-30 :36 TSH 1.11 {uIU/mL} (Normal) Range: 0.358-3.74 :46 HgA1C , Office (88555) HgA1C , Office 5.7 % (Normal) Range: 4.6 - 7.1 :46 Blood Glucose , Office (20265) Blood Glucose , Office 106 (Normal) :51 HgA1C , Office (34018) HgA1C , Office 5.8 % (Normal) Range: 4.6 - 7.1 :51 Blood Glucose , Office (10461) Blood Glucose , Office 122 (Normal) Comments: non-fasting 7-Fil-428449:05 HgA1C , Office (44914) HgA1C , Office 5.8 % (Normal) Range: 4.6 - 7.1 :04 Blood Glucose , Office (82657) Blood Glucose , Office 137 (Normal) :25 HgA1C , Office (76662) HgA1C , Office 5.7 % (Normal) Range: 4.6 - 7.1 :25 Blood Glucose , Office (47235) Blood Glucose , Office 96 (Normal) [id number] HEPATIC FUNCTION PANEL Comments: PATIENT NOT FASTINGPERFORMED BY: Intarcia TherapeuticsLyons VA Medical CenterFxdtoi[address] [facility] [id number] ([id number]) Alkaline Phosphatase, S 46 [iU]/L (Normal) Range: 25-150 ALT (SGPT) 17 [iU]/L (Normal) Range: 0-40 Comments: Effective March 01, 2012 the reference interval for ALT (SGPT) will be changing to: Male Female 0 - 11 years 0 - 29 0 - 28 12 - 17 years 0 - 30 0 - 24 > 17 years 0 - 44 0 - 32 AST (SGOT) 14 [iU]/L (Normal) Range: 0-40 Bilirubin, Direct 0.13 mg/dL (Normal) Range: 0.00-0.40 Bilirubin, Total 0.5 mg/dL (Normal) Range: 0.0-1.2 Protein, Total, Serum 6.7 g/dL (Normal) Range: 6.0-8.5 [id number] Renal function Panel Comments: PATIENT NOT FASTINGPERFORMED BY: Intarcia TherapeuticsLyons [facility] Medical CenterCquiuv[address] [id number] Information: [id number] DRAW FEE [id number] ([id number]) Albumin, Serum 4.3 g/dL (Normal) Range: 3.5-5.5 Phosphorus, Serum 3.4 mg/dL (Normal) Range: 2.5-4.5 Calcium, Serum 9.2 mg/dL (Normal) Range: 8.7-10.2 Carbon Dioxide, Total 25 mmol/L (Normal) Range: 20-32 Chloride, Serum 99 mmol/L (Normal) Range: 97-108 Potassium, Serum 4.0 mmol/L (Normal) Range: 3.5-5.2 BUN/Creatinine Ratio 24 (Abnormal) Range: 9-23 eGFR If Africn Am 114 mL/min/1.73 (Normal) Sodium, Serum 138 mmol/L (Normal) Range: 134-144 BUN 17 mg/dL (Normal) Range: 6-24 Creatinine, Serum 0.72 mg/dL (Normal) Range: 0.57-1.00 eGFR If NonAfricn Am 99 mL/min/1.73 (Normal) Glucose, Serum 105 mg/dL (Abnormal) Range: 65-99 57-Mst-397817:04 Urinalysis, Office (45162) UA - BILIRUBIN Negative (Normal) UA - BLOOD Negative (Normal) UA - GLUCOSE Negative (Normal) UA - KETONES Negative mg/dL (Normal) UA - LEUKOCYTE ESTERASE Negative (Normal) UA - NITRITE Negative (Normal) UA - PH 6.0 (Normal) UA - PROTEIN Negative mg/dL (Normal) UA - SPECIFIC GRAVITY 1.025 (Normal) URINE UROBILINGN SRAVANI TIMED Normal mg/dL (Normal) 90-Vis-099624:41 HgA1C , Office (00952) HgA1C , Office 5.9 % (Normal) Range: 4.6 - 7.1 :42 LQDPAP [id number] PAPSMR Comment (Normal) Comments: The Pap smear is a screening test designed to aid in thedetection of premalignant and malignant conditions of theuterine cervix. It is not a diagnostic procedure andshould not be used as the sole means of detecting cervicalcancer. Both false-positive and false-negative reports dooccur. .The HPV DNA reflex criteria were not met with this speci menresult therefore, no HPV testing was performed. .Performed at: - [facility] [id number] Director: John Echeverria MD, Phone: [phone] COMM . (Normal) DIAGN Comment (Normal) Comments: NEGATIVE FOR INTRAEPITHELIAL LESION AND MALIGNANCY.Satisfactory for evaluation. Endocervical and/or squamous metaplasticcells (endocervical component) are present.Holly Reed, Map And Chart Mounter (ASCP)T his liquid based ThinPrep(R) pap test was screened withthe use of an image guided system. [id number] TSH (97168) Comments: PATIENT WAS FASTINGPERFORMED BY: [facility] [id number] TSH 2.160 {uIU/mL} (Normal) Range: 0.450-4.500 59-Lrh-763550:20 MICROALBUMIN: CREATININE RATIO Comments: PATIENT WAS FASTINGPERFORMED BY: [facility] [id number] ([id number]) AND (26442) Microalb/Creat Ratio 2.3 {mg/g_creat} (Normal) Range: 0.0-30.0 Microalbumin, Urine 1.6 ug/mL (Normal) Range: 0.0-17.0 Creatinine, Urine 70.5 mg/dL (Normal) Range: 15.0-278.0 11-Rxf-885200:20 METABOLIC PANEL, COMPREHENSIVE Comments: PATIENT WAS FASTINGPERFORMED BY: [facility] [id number] ([id number]) ALT (SGPT) 19 [iU]/L (Normal) Range: 0-40 AST (SGOT) 18 [iU]/L (Normal) Range: 0-40 Alkaline Phosphatase, S 54 [iU]/L (Normal) Range: 25-150 Bilirubin, Total 0.5 mg/dL (Normal) Range: 0.0-1.2 A/G Ratio 1.7 (Normal) Range: 1.1-2.5 Globulin, Total 2.5 g/dL (Normal) Range: 1.5-4.5 Albumin, Serum 4.3 g/dL (Normal) Range: 3.5-5.5 Protein, Total, Serum 6.8 g/dL (Normal) Range: 6.0-8.5 Calcium, Serum 9.5 mg/dL (Normal) Range: 8.7-10.2 Carbon Dioxide, Total 26 mmol/L (Normal) Range: 20-32 Chloride, Serum 102 mmol/L (Normal) Range: 97-108 Potassium, Serum 5.2 mmol/L (Normal) Range: 3.5-5.2 Sodium, Serum 140 mmol/L (Normal) Range: 134-144 BUN/Creatinine Ratio 20 (Normal) Range: 9-23 eGFR If Africn Am 102 mL/min/1.73 (Normal) Comments: Note: A persistent eGFR <60 mL/min/1.73 m2 (3 months or more) mayindicate chronic kidney disease. An eGFR >59 mL/min/1.73 m2 with anelevated urine protein also may indicate chronic kidney disease.Calculated using CKD-EPI formula. eGFR If NonAfricn Am 89 mL/min/1.73 (Normal) Creatinine, Serum 0.79 mg/dL (Normal) Range: 0.57-1.00 BUN 16 mg/dL (Normal) Range: 6-24 Glucose, Serum 109 mg/dL (Abnormal) Range: 65-99 95-Xrg-076157:20 LIPID PANEL (62908) Comments: PATIENT WAS FASTINGPERFORMED BY: [facility] [id number] LDL/HDL Ratio 1.4 {ratio_units} (Normal) Range: 0.0-3.2 LDL Cholesterol Calc 108 mg/dL (Abnormal) Range: 0-99 VLDL Cholesterol Zaria 16 mg/dL (Normal) Range: 5-40 HDL Cholesterol 78 mg/dL (Normal) Comments: According to ATP-III Guidelines, HDL-C >59 mg/dL is considered anegative risk factor for CHD. Cholesterol, Total 202 mg/dL (Abnormal) Range: 100-199 Triglycerides 82 mg/dL (Normal) Range: 0-149 16-Nyi-735549:20 CBC WITH MANUAL DIFF Comments: PATIENT WAS FASTINGPERFORMED BY: [employer] [address] [id number] Information: ADD [id number] AND DRAW FEE [id number] 5422 ([id number]) Immature Grans (Abs) 0.0 {x10E3/uL} (Normal) Range: 0.0-0.1 Immature Granulocytes 0 % (Normal) Range: 0-2 Baso (Absolute) 0.0 {x10E3/uL} (Normal) Range: 0.0-0.2 Eos (Absolute) 0.1 {x10E3/uL} (Normal) Range: 0.0-0.4 Monocytes(Absolute) 0.4 {x10E3/uL} (Normal) Range: 0.1-1.0 Lymphs (Absolute) 1.5 {x10E3/uL} (Normal) Range: 0.7-4.5 Neutrophils (Absolute) 3.1 {x10E3/uL} (Normal) Range: 1.8-7.8 Basos 0 % (Normal) Range: 0-3 Eos 3 % (Normal) Range: 0-7 Monocytes 7 % (Normal) Range: 4-13 Lymphs 30 % (Normal) Range: 14-46 Neutrophils 60 % (Normal) Range: 40-74 Platelets 271 {x10E3/uL} (Normal) Range: 140-415 RDW 13.3 % (Normal) Range: 11.7-15.0 MCHC 33.4 g/dL (Normal) Range: 32.0-36.0 MCH 29.5 pg (Normal) Range: 27.0-34.0 MCV 88 fL (Normal) Range: 80-98 Hematocrit 38.9 % (Normal) Range: 34.0-44.0 Hemoglobin 13.0 g/dL (Normal) Range: 11.5-15.0 RBC 4.40 {x10E6/uL} (Normal) Range: 3.80-5.10 WBC 5.2 {x10E3/uL} (Normal) Range: 4.0-10.5 88-Frz-387009:05 URINE ALISSON CULTURE-SRAVANI COL Comments: PATIENT NOT FASTINGPERFORMED BY: [facility] Dvbemu[address] [id number] Information: SRC: [id number] COUNT (70207) Antimicrobial MIHEAD (Normal) Comments: S = Susceptible; I = Intermediate; R = Resistant P = Positive; N = Negative MICS are expressed in micrograms per mL Antibiotic RSLT#1 RSLT#2 Susceptibility RSLT#3 RSLT#4Amikacin SAmoxicillin/Clavulanic Acid SAmpicillin SCefazolin SCefepime SCefoxitin SCeftriaxone SCiprofloxacin SESBL NErtapenem SGentamicin SImipenem S Levofloxacin SNitrofurantoin STobramycin STrimethoprim/Sulfa S Result 1 Escherichia coli Comments: Greater than 100,000 colony forming units per mL (Normal) Urine Final report (Normal) Culture,Comprehensive :51 Urinalysis, Office (15142) UA - BILIRUBIN Negative (Normal) UA - BLOOD Hemolyzed Trace (Normal) UA - GLUCOSE Negative (Normal) UA - KETONES Negative mg/dL (Normal) UA - LEUKOCYTE ESTERASE Large (Normal) UA - NITRITE Negative (Normal) UA - PH 6.5 (Normal) UA - PROTEIN Negative mg/dL (Normal) UA - SPECIFIC GRAVITY 1.015 (Normal) URINE UROBILINGN SRAVANI TIMED Normal mg/dL (Normal) 18-Qzk-996621:53 CBC (Auto) ([id number]) Comments: PATIENT NOT FASTINGPERFORMED BY: Intarcia TherapeuticsLyons VA Medical CenterFtypyc[address] [id number] Information: [id number] Platelets 271 {x10E3/uL} (Normal) Range: 140-415 RDW 13.4 % (Normal) Range: 11.7-15.0 MCHC 34.0 g/dL (Normal) Range: 32.0-36.0 MCH 31.0 pg (Normal) Range: 27.0-34.0 Hematocrit 37.9 % (Normal) Range: 34.0-44.0 MCV 91 fL (Normal) Range: 80-98 Hemoglobin 12.9 g/dL (Normal) Range: 11.5-15.0 RBC 4.16 {x10E6/uL} (Normal) Range: 3.80-5.10 WBC 4.7 {x10E3/uL} (Normal) Range: 4.0-10.5 :53 Potassium Serum (13183) Comments: PATIENT NOT FASTINGPERFORMED BY: CipherMaxLyons VA Medical CenterVuljsw[address] [id number] Potassium, Serum 4.9 mmol/L (Normal) Range: 3.5-5.2 :17 GALLBLADDER Radiology Report See Note (Normal) Comments: CLINICAL:The patient presents with a history of nausea and vomiting. ABDOMINAL ULTRASOUND TECHNIQUE:Transabdominal COMPARISON:None. FINDINGS:There is a 1.9 cm x 2.2 cm x 2 cm echogenic nodule in the pos terioraspectof the right lobe of the liver superiorly. This most likely representsanhemangioma. There is no dilatation of the intrahepatic or extrahepatic bile ducts.Thecommon bile duct measures 5 mm. Normal gallbladder. Normal visualized head, body and tail of the pancreas. The right kidney measures 7.6 cm. The patient has a history of priorureteral surgery.There is no pelvicalyceal dilatation of the right kidney. There is no ascites. IMPRESSION:Echogenic nodule in the right lobe of the liver, most likely representingahemangioma. Dictated on 05/31/10 0851 by Pretty Joaquinranscribed on 05/31/10 1131 by ITS IMPORTSign by Aguilar Joaquin on 05/31/10 1132 Sign by: Aguilar Joaquin 24-[birth year]-2010 OLLIE 42 U/L (Normal) Comments: RESULTS FAXED 05/24/10 1522 NANCY. BETH 13:17 Range: 25-115 64-Jdr-046179:17 CBCD,SMEAR DIFF RED CELL MORPH SeeNote {NORMAL} (Normal) Comments: Result: NORM C+C LYMPH 43 % (Abnormal) Range: 19-41 MONOCYTE 5 % (Normal) Range: 0-10 PLT EST SeeNote (Normal) Comments: Result: ADEQUATE BAND 2 % (Normal) Range: 0-5 SEGS 50 % (Normal) Range: 47-70 ABSOLUTE NEUT 1.5 3/uL (Abnormal) Range: 2.0-7.7 CELLS COUNTED 100 (Normal) MCHC 35.5 g/dL (Normal) Range: 32-36 PLT 312 K/mm3 (Normal) Range: 150-450 RDW 12.6 % (Normal) Range: 11.6-14.6 MCH 32.0 pg (Normal) Range: 27.0-32.0 MCV 90.3 fL (Normal) Range: 81-99 HCT 35.5 % (Abnormal) Range: 37-47 HGB 12.6 g/dL (Normal) Range: 12.0-16.0 RBC 3.93 {M/mm3} (Abnormal) Range: 4.2-5.4 WBC 3.0 K/mm3 (Abnormal) Range: 4.4-11.0 72-Hji-621102:17 COMP METABOLIC Comments: RESULTS FAXED 05/24/10 152Juve BETHCARLOS. GAP 8 (Normal) Range: 5-15 CL 105 mmol/L (Normal) Range: 98-107 CO2 29.0 mmol/L (Normal) Range: 21.0-32.0 K 5.2 mmol/L (Abnormal) Range: 3.5-5.1 NA 142 mmol/L (Normal) Range: 136-145 ALT 45 U/L (Normal) Range: 12-78 T BILI 0.30 mg/dL (Normal) Range: 0.00-1.00 ALK P 37 U/L (Abnormal) Range: 50-136 AST 24 U/L (Normal) Range: 15-37 CA 8.6 mg/dL (Normal) Range: 8.5-10.1 A/G 1.0 {RATIO} (Normal) Range: 0.9-2.4 ALB 3.2 g/dL (Abnormal) Range: 3.4-5.0 GLOB 3.1 g/dL (Normal) Range: 2.7-4.2 BUN/CRE 15.7 {RATIO} (Normal) Range: 10-20 EST GFR 95 mL/min (Normal) EST GFR - AA 115 mL/min (Normal) T PROT 6.3 g/dL (Abnormal) Range: 6.4-8.2 BUN 11 mg/dL (Normal) Range: 7-18 CREAT,SERUM 0.7 mg/dL (Normal) Range: 0.6-1.0 GLU 82 mg/dL (Normal) Range: 70-110 99-Udf-870652:17 LIPASE 124 U/L (Normal) Comments: RESULTS FAXED 05/24/10 1522 LA CAMPOSCY. Range: 70-290 Comments: Please note:LIPASE revised reference range effective 09. 0-Qer-584183:38 CBCD,SMEAR DIFF RED CELL MORPH SeeNote {NORMAL} (Normal) Comments: Result: NORM C+C PLT EST SeeNote (Normal) Comments: Result: ADEQUATE PLT MORPH GIANT (Normal) Comments: few EOS 1 % (Normal) Range: 0-5 MONOCYTE 7 % (Normal) Range: 0-10 LYMPH 27 % (Normal) Range: 19-41 CELLS COUNTED 100 (Normal) SEGS 65 % (Normal) Range: 47-70 ABSOLUTE NEUT 3.3 3/uL (Normal) Range: 2.0-7.7 PLT 268 K/mm3 (Normal) Range: 150-450 RDW 12.7 % (Normal) Range: 11.6-14.6 MCHC 34.2 g/dL (Normal) Range: 32-36 MCH 31.8 pg (Normal) Range: 27.0-32.0 MCV 93.0 fL (Normal) Range: 81-99 HCT 38.0 % (Normal) Range: 37-47 HGB 13.0 g/dL (Normal) Range: 12.0-16.0 RBC 4.08 {M/mm3} (Abnormal) Range: 4.2-5.4 WBC 5.3 K/mm3 (Normal) Range: 4.4-11.0 4-Fmz-830260:38 COMP METABOLIC GAP 8 (Normal) Range: 5-15 CL 103 mmol/L (Normal) Range: 98-107 CO2 29.0 mmol/L (Normal) Range: 21.0-32.0 K 4.5 mmol/L (Normal) Range: 3.5-5.1 NA 140 mmol/L (Normal) Range: 136-145 T BILI 0.40 mg/dL (Normal) Range: 0.00-1.00 ALK P 35 U/L (Abnormal) Range: 50-136 ALT 24 U/L (Normal) Range: 12-78 AST 11 U/L (Abnormal) Range: 15-37 A/G 1.0 {RATIO} (Normal) Range: 0.9-2.4 CA 9.0 mg/dL (Normal) Range: 8.5-10.1 GLOB 3.4 g/dL (Normal) Range: 2.7-4.2 ALB 3.3 g/dL (Abnormal) Range: 3.4-5.0 T PROT 6.7 g/dL (Normal) Range: 6.4-8.2 BUN/CRE 21.3 {RATIO} (Abnormal) Range: 10-20 EST GFR 82 mL/min (Normal) EST GFR - AA 99 mL/min (Normal) BUN 17 mg/dL (Normal) Range: 7-18 CREAT,SERUM 0.8 mg/dL (Normal) Range: 0.6-1.0 GLU 86 mg/dL (Normal) Range: 70-110 3-Ree-522641:38 LIPID LDL 98 mg/dL (Normal) Range: 0-130 VLDL 11 mg/dL (Normal) Range: 5-40 HDL 66 mg/dL (Normal) Comments: Reference Range HDL <40 mg/dL Low HDL Cholesterol HDL >or= 60 mg/dL High HDL Cholesterol CHOL 175 mg/dL (Normal) Comments: <200 mg/dL Desirable 200-240 mg/dL Borderline >240 mg/dL High Risk TRIG 53 mg/dL (Normal) Comments: Serum Triglycerides Reference Interval Normal <150 mg/dL Borderline high 150 - 199 mg/dL High 200 - 499 mg/dL Very High > or = 500 mg/dL 9-Ysk-052663:38 MICROALB:CRE UR MALB:CREAT 13.5 {mg/g_CRE} (Normal) MICROALBUMIN,UR 5.2 mg/L (Normal) UR CREAT 38.5 mg/dL (Normal) :38 TSH 0.50 {uIU/mL} (Normal) Range: 0.358-3.74 4-Wth-426296:03 Urinalysis, Office (97633) UA - BILIRUBIN Negative (Normal) UA - BLOOD Hemolyzed Trace (Normal) UA - GLUCOSE Negative (Normal) UA - KETONES Negative mg/dL (Normal) UA - LEUKOCYTE ESTERASE Negative (Normal) UA - NITRITE Negative (Normal) UA - PH 6.5 (Normal) UA - PROTEIN Negative mg/dL (Normal) UA - SPECIFIC GRAVITY 1.020 (Normal) URINE UROBILINGN SRAVANI TIMED Normal mg/dL (Normal) 64-Qzv-527401:01 Urinalysis, Office (69782) UA - BILIRUBIN Moderate (Normal) UA - BLOOD Hemolyzed Large (Normal) UA - GLUCOSE Negative (Normal) UA - KETONES Negative mg/dL (Normal) UA - LEUKOCYTE ESTERASE Negative (Normal) UA - NITRITE Negative (Normal) UA - PH 6.0 (Normal) UA - PROTEIN Negative mg/dL (Normal) UA - SPECIFIC GRAVITY 1.010 (Normal) URINE UROBILINGN SRAVANI TIMED Normal mg/dL (Normal) 80-Rbk-234243:46 URINE ALISSON CULTURE-IDENTIFICATN Comments: PATIENT NOT FASTINGPERFORMED BY: [facility] [id number] Information: [id number] (95435) Result 1 NG36 (Normal) Comments: No growth in 36 - 48 hours. Urine Culture,Comprehensive Final report (Normal) 43-Xcl-222251:00 TSH (97512) Comments: PATIENT WAS FASTINGPERFORMED BY: [facility] [id number] TSH 1.190 {uIU/mL} (Normal) Range: 0.450-4.500 47-Kou-513360:00 METABOLIC PANEL, COMPREHENSIVE Comments: PATIENT WAS FASTINGPERFORMED BY: [facility]Former[facility] [id number] ([id number]) A/G Ratio 1.7 (Normal) Range: 1.1-2.5 Albumin, Serum 4.8 g/dL (Normal) Range: 3.5-5.5 Alkaline Phosphatase, S 47 [iU]/L (Normal) Range: 25-150 ALT (SGPT) 26 [iU]/L (Normal) Range: 0-40 AST (SGOT) 19 [iU]/L (Normal) Range: 0-40 Bilirubin, Total 0.5 mg/dL (Normal) Range: 0.1-1.2 BUN 17 mg/dL (Normal) Range: 5-26 BUN/Creatinine Ratio 18 (Normal) Range: 8-27 Calcium, Serum 10.0 mg/dL (Normal) Range: 8.5-10.6 Carbon Dioxide, Total 27 mmol/L (Normal) Range: 20-32 Chloride, Serum 97 mmol/L (Normal) Range: 97-108 Creatinine, Serum 0.94 mg/dL (Normal) Range: 0.57-1.00 eGFR >59 mL/min/1.73 (Normal) eGFR AfricanAmerican >59 mL/min/1.73 Comments: Note: Persistent reduction for 3 months or more in an eGFR<60 mL/min/1.73 m2 defines CKD. Patients with eGFR values>/=60 mL/min/1.73 m2 may also have CKD if evidence of persistentproteinuria is (Normal) present. Additional information may be found [email or web address]. Globulin, Total 2.9 g/dL (Normal) Range: 1.5-4.5 Glucose, Serum 84 mg/dL (Normal) Range: 65-99 Potassium, Serum 4.7 mmol/L (Normal) Range: 3.5-5.2 Protein, Total, Serum 7.7 g/dL (Normal) Range: 6.0-8.5 Sodium, Serum 139 mmol/L (Normal) Range: 135-145 99-Ptg-049445:00 LIPID PANEL (75597) Comments: PATIENT WAS FASTINGPERFORMED BY: [employer]70 [facility] [id number] Cholesterol, Total 231 mg/dL (Abnormal) Range: 100-199 HDL Cholesterol 79 mg/dL (Normal) Comments: According to ATP-III Guidelines, HDL-C >59 mg/dL is considered anegative risk factor for CHD. LDL Cholesterol Calc 127 mg/dL (Abnormal) Range: 0-99 LDL/HDL Ratio 1.6 {ratio_units} (Normal) Range: 0.0-3.2 Triglycerides 123 mg/dL (Normal) Range: 0-149 VLDL Cholesterol Zaria 25 mg/dL (Normal) Range: 5-40 50-Pev-136631:00 CBC WITH MANUAL DIFF (96673) Comments: PATIENT WAS FASTINGClinical Information: [id number] PERFORMED BY: [employer] [id number] Baso (Absolute) 0.0 {x10E3/uL} (Normal) Range: 0.0-0.2 Basos 0 % (Normal) Range: 0-3 Eos 0 % (Normal) Range: 0-7 Eos (Absolute) 0.0 {x10E3/uL} (Normal) Range: 0.0-0.4 Hematocrit 42.6 % (Normal) Range: 34.0-44.0 Hemoglobin 14.3 g/dL (Normal) Range: 11.5-15.0 Lymphs 25 % (Normal) Range: 14-46 Lymphs (Absolute) 1.9 {x10E3/uL} (Normal) Range: 0.7-4.5 MCH 30.9 pg (Normal) Range: 27.0-34.0 MCHC 33.6 g/dL (Normal) Range: 32.0-36.0 MCV 92 fL (Normal) Range: 80-98 Monocytes 5 % (Normal) Range: 4-13 Monocytes(Absolute) 0.4 {x10E3/uL} (Normal) Range: 0.1-1.0 Neutrophils 70 % (Normal) Range: 40-74 Neutrophils (Absolute) 5.3 {x10E3/uL} (Normal) Range: 1.8-7.8 Platelets 323 {x10E3/uL} (Normal) Range: 140-415 RBC 4.63 {x10E6/uL} (Normal) Range: 3.80-5.10 RDW 13.0 % (Normal) Range: 11.7-15.0 WBC 7.6 {x10E3/uL} (Normal) Range: 4.0-10.5 :05 Urine Culture,Comprehensive Comments: Clinical Information: SRC:UR PERFORMED BY: NILE Palmer[address] [id number] Result 1 ECV (Normal) Comments: Escherichia coli, identified by an automated biochemical system.5,000 Colonies/mL S = Susceptible; I = Intermediate; R = Resistant P = Positive; N = Negative MICS are expressed in micrograms per mL Antibiotic RSLT#1 RSLT#2 RSLT#3 RSLT#4Amoxicillin/Clavulanic Acid SAmpicillin RCefepime SC eftriaxone SCefuroxime SCephalothin SCiprofloxacin SESBL NGentamicin SImipenem SLevofloxacin SNitrofurantoin SPiperacillin/Tazobactam STetracycline RTobramycin STrimethoprim/Sulfa S Urine Final report (Normal) Culture,Comprehensiv e 39-Vfb-161671:59 Urinalysis, Office (99198) UA - BILIRUBIN Negative (Normal) UA - BLOOD Hemolyzed Moderate (Normal) UA - GLUCOSE Negative (Normal) UA - KETONES Negative mg/dL (Normal) UA - LEUKOCYTE ESTERASE Moderate (Normal) UA - NITRITE Negative (Normal) UA - PH 6.0 (Normal) UA - PROTEIN Negative mg/dL (Normal) UA - SPECIFIC GRAVITY 1.015 (Normal) URINE UROBILINGN SRAVANI TIMED 2 mg/dL (Normal) 13-Foe-839269:54 URINALYSIS W/O MICRO (65033) Comments: PATIENT WAS FASTINGPERFORMED BY: NILE Crowleylin[address] [id number] Appearance Clear (Normal) Bilirubin Negative (Normal) Glucose Negative (Normal) Ketones Negative (Normal) Microscopic Examination MICRON (Normal) Comments: Microscopic follows if indicated. Nitrite, Urine Negative (Normal) Occult Blood Negative (Normal) pH 6.5 (Normal) Range: 5.0-7.5 Protein Negative (Normal) Specific [place] 1.012 (Normal) Range: 1.005-1.030 Urine-Color Yellow (Normal) Urobilinogen,Semi-Qn 0.2 mg/dL (Normal) Range: 0.0-1.9 WBC Esterase Negative (Normal) :54 TSH (61015) Comments: PATIENT WAS FASTINGPERFORMED BY: [employer] [id number] TSH 1.015 {uIU/mL} (Normal) Range: 0.450-4.500 :54 METABOLIC PANEL, COMPREHENSIVE Comments: PATIENT WAS FASTINGPERFORMED BY: [employer] [id number] (60803) A/G Ratio 1.5 (Normal) Range: 1.1-2.5 Albumin, Serum 4.2 g/dL (Normal) Range: 3.5-5.5 Alkaline Phosphatase, S 41 [iU]/L (Normal) Range: 25-150 ALT (SGPT) 17 [iU]/L (Normal) Range: 0-40 AST (SGOT) 17 [iU]/L (Normal) Range: 0-40 Bilirubin, Total 0.7 mg/dL (Normal) Range: 0.1-1.2 BUN 13 mg/dL (Normal) Range: 5-26 BUN/Creatinine Ratio 16 (Normal) Range: 8-27 Calcium, Serum 10.1 mg/dL (Normal) Range: 8.5-10.6 Carbon Dioxide, Total 26 mmol/L (Normal) Range: 20-32 Chloride, Serum 102 mmol/L (Normal) Range: 97-108 Creatinine, Serum 0.80 mg/dL (Normal) Range: 0.57-1.00 Globulin, Total 2.8 g/dL (Normal) Range: 1.5-4.5 Glom Filt Rate, Est >59 mL/min/1.73 (Normal) Glucose, Serum 113 mg/dL (Abnormal) Range: 65-99 If -Guamanian >59 mL/min/1.73 Comments: Note: Persistent reduction for 3 months or more in an eGFR<60 mL/min/1.73 m2 defines CKD. Patients with eGFR values>/=60 mL/min/1.73 m2 may also have CKD if evidence of persistentproteinur ia is (Normal) present. Additional information may be found [email or web address]. Potassium, Serum 4.8 mmol/L (Normal) Range: 3.5-5.2 Protein, Total, Serum 7.0 g/dL (Normal) Range: 6.0-8.5 Sodium, Serum 140 mmol/L (Normal) Range: 135-145 84-Bgh-515734:54 LIPID PANEL (41463) Comments: PATIENT WAS FASTINGPERFORMED BY: [employer] [place] [id number] Cholesterol, Total 199 mg/dL (Normal) Range: 100-199 Comment SPRCS (Normal) Comments: If initial LDL-cholesterol result is >100 mg/dL, assess forrisk factors. HDL Cholesterol 57 mg/dL (Normal) Comments: According to ATP-III Guidelines, HDL-C >59 mg/dL is considered anegative risk factor for CHD. LDL Cholesterol Calc 116 mg/dL (Abnormal) Range: 0-99 LDL/HDL Ratio 2.0 {ratio_units} (Normal) Range: 0.0-3.2 Triglycerides 128 mg/dL (Normal) Range: 0-149 VLDL Cholesterol Zaria 26 mg/dL (Normal) Range: 5-40 06-Cbr-787901:54 CBC WITH MANUAL DIFF (12715) Comments: PATIENT WAS FASTINGClinical Information: ADD DRAW FEE [id number] ADD J [id number] PERFORMED BY: [employer] LabCoBiztagECU [facility] [id number] Baso (Absolute) 0.0 {x10E3/uL} (Normal) Range: 0.0-0.2 Basos 0 % (Normal) Range: 0-3 Eos 1 % (Normal) Range: 0-7 Eos (Absolute) 0.1 {x10E3/uL} (Normal) Range: 0.0-0.4 Hematocrit 38.9 % (Normal) Range: 34.0-44.0 Hemoglobin 13.5 g/dL (Normal) Range: 11.5-15.0 Lymphs 24 % (Normal) Range: 14-46 Lymphs (Absolute) 1.4 {x10E3/uL} (Normal) Range: 0.7-4.5 MCH 31.6 pg (Normal) Range: 27.0-34.0 MCHC 34.8 g/dL (Normal) Range: 32.0-36.0 MCV 91 fL (Normal) Range: 80-98 Monocytes 5 % (Normal) Range: 4-13 Monocytes(Absolute) 0.3 {x10E3/uL} (Normal) Range: 0.1-1.0 Neutrophils 70 % (Normal) Range: 40-74 Neutrophils (Absolute) 4.0 {x10E3/uL} (Normal) Range: 1.8-7.8 Platelets 315 {x10E3/uL} (Normal) Range: 140-415 RBC 4.28 {x10E6/uL} (Normal) Range: 3.80-5.10 RDW 12.7 % (Normal) Range: 11.7-15.0 WBC 5.7 {x10E3/uL} (Normal) Range: 4.0-10.5 Comments: Please note reference interval change for the pediatric CBC With Differential/Platelet 15-Xba-758081:32 PELVIC (NON-PREG) (HP) Radiology Report See Note (Normal) Comments: Exam Number: [id number] PELVIC ULTRASOUND HISTORYOvarian cyst, left side. COMPARISON STUDYApr2006 Transabdominal imaging was performed. The previously-noted 2.3 x 1.9x 2.2 cm left ovarian cystic mass is no longer evident today. Theleft ovary was measured at approximately 1.9 x 2.0 x 1.5 cm and theright ovary 1.9 x 1.6 x 1.5 cm. The uterus measures 8.8 x 5.9 x 5.4cm with the endometrial thickn ess of 4 mm. No free pelvic fluid. IMPRESSIONPreviously-described left ovarian cystic mass has resolved since thestudy of August 26, 2006. Reported By: MANSI SINGER M.D. 5-Dga-507439:42 ISIAH-D [id number] ISIAH-DIRECT 32 U/mL (Normal) Range: 0-99 Comments: Negative <100 Equivocal 100 - 120 Positive >120 :42 B12/FOLATES FOLATES,SERUM 10.60 ng/mL (Normal) VITAMIN B12 281 pg/mL (Normal) Range: 211-911 :42 C-REACTIVE PROT 2.88 mg/L (Normal) Range: 0.0-6.0 Comments: Test performed using the Dimension C-Reactive ProteinExtended Range assay method. This assay meets the AHA/CDC 2003 recommendations fordetermining patients at high risk for cardiovasculardisease. Reference: High risk CRP >3.0 mg/L :42 CBCD,SMEAR DIFF BAND 5 % (Normal) Range: 0-5 CELLS COUNTED 100 (Normal) HCT 38.3 % (Normal) Range: 37-47 HGB 13.3 g/dL (Normal) Range: 12.0-16.0 LYMPH 20 % (Normal) Range: 19-41 MCH 31.2 pg (Normal) Range: 27.0-32.0 MCHC 34.6 g/dL (Normal) Range: 32-36 MCV 90.2 fL (Normal) Range: 81-99 MONOCYTE 4 % (Normal) Range: 0-10 PLT 287 K/mm3 (Normal) Range: 150-450 PLT EST SeeNote (Normal) Comments: Result: ADEQUATE RBC 4.25 {M/mm3} (Normal) Range: 4.2-5.4 RDW 12.6 % (Normal) Range: 11.6-14.6 RED CELL MORPH SeeNote {NORMAL} (Normal) Comments: Result: NORM C&C SEGS 71 % (Abnormal) Range: 47-70 WBC 5.5 K/mm3 (Normal) Range: 4.4-11.0 :42 COMP METABOLIC ALK P 49 U/L (Abnormal) Range: 50-136 ALT 38 [iU]/L (Normal) Range: 30-65 CL 104 mmol/L (Normal) Range: 98-107 CO2 29.1 mmol/L (Abnormal) Range: 22.0-29.0 GAP 8 (Normal) Range: 5-15 K 4.2 mmol/L (Normal) Range: 3.5-5.1 NA 141 mmol/L (Normal) Range: 136-145 T BILI 0.41 mg/dL (Normal) Range: 0.00-1.00 A/G 1.0 {RATIO} (Normal) Range: 0.9-2.4 ALB 3.6 g/dL (Normal) Range: 3.4-5.0 AST 17 U/L (Normal) Range: 15-37 BUN 16 mg/dL (Normal) Range: 7-18 BUN/CRE 16.0 {RATIO} (Normal) Range: 10-20 CA 8.6 mg/dL (Normal) Range: 8.5-10.1 CREAT,SERUM 1.0 mg/dL (Normal) Range: 0.6-1.0 GLOB 3.5 g/dL (Normal) Range: 2.3-3.5 GLU 90 mg/dL (Normal) Range: 70-110 T PROT 7.1 g/dL (Normal) Range: 6.4-8.2 :42 ESR SED RATE 14 mm/h (Normal) Range: 0-20 :42 LIPID CHOL 208 mg/dL (Abnormal) Comments: <200 mg/dL Desirable 200-240 mg/dL Borderline >240 mg/dL High Risk HDL 57 mg/dL (Normal) Comments: Reference Range HDL <40 mg/dL Low HDL Cholesterol HDL >or= 60 mg/dL High HDL Cholesterol LDL 132 mg/dL (Abnormal) Range: 0-130 TRIG 97 mg/dL (Normal) Comments: Serum Triglycerides Reference Interval Normal <150 mg/dL Borderline high 150 - 199 mg/dL High 200 - 499 mg/dL Very High > or = 500 mg/dL VLDL 19 mg/dL (Normal) Range: 5-40 :42 MICROALB:CRE UR MALB:CREAT 3.9 {mg/g_CRE} (Normal) MICROALBUMIN,UR 3.1 mg/L (Normal) UR CREAT 79.5 mg/dL (Normal) :42 RA LATEX 6502 6.7 {IU/mL} (Normal) Range: 0.0-13.9 :42 ROUTINE UA BILIRUBIN URINE SeeNote (Normal) Comments: Result: NEGATIVE CLARITY CLEAR (Normal) COLOR YELLOW (Normal) GLUCOSE, UR SeeNote (Normal) Comments: Result: NEGATIVE KETONE UR SeeNote mg/dL (Normal) Comments: Result: NEGATIVE LEUK ESTERASE SeeNote (Normal) Comments: Result: NEGATIVE NITRITE UR SeeNote (Normal) Comments: Result: NEGATIVE OCCULT BLOOD-UR SeeNote (Normal) Comments: Result: NEGATIVE pH UR 5.5 (Normal) Range: 5.0-8.0 PROT DIPSTX SeeNote (Normal) Comments: Result: NEGATIVE SP.GR. DIPSTX 1.025 (Normal) Range: 1.002-1.030 UROBILI 0.2 EU/dl (Normal) Range: 0.2 - 1.0 :42 T3, FREE 62851 2.8 pg/mL (Normal) Range: 2.3-4.2 Comments: Performed At: [address] [id number] :42 T4 FREE,DIRECT 1.0 ng/dL (Normal) Range: 0.89-1.76 :42 TSH 0.54 {uIU/mL} (Normal) Range: 0.34-4.82 [id number] MAMM, UILAT DIAG DIGITAL & CAD Radiology Report See Note (Normal) Comments: Exam Number: [id number] MAMMOGRAPHY, RIGHT UNILATERAL DIAGNOSTIC DIGITAL AND CAD HISTORYAbnormal right screening study. Full field digital images were obtained in mediolateral oblique andcra niocaudal sp ot compression views and in roll craniocaudalprojections of the right breast. CAD images were reviewed. The current study is compared to the examinations of August 26, 2006. There is moderately dense fib roglandular parenchyma present. Theapparent focal density seen in the lower- mid right breast on theexamination of August 28, 2004 is not a persistent finding on theadditional views. The finding therefo re was most compatible withsuperimposition. If there is no suspicious palpable abnormality,followup mammogram in 1 year is recommended. IMPRESSIONThere is no radiographic evidence of malignancy identif ied. FINAL ASSESSMENTBenign findings. BIRADS Category 2. A letter regarding these results has been sent to the patient. This interpretation was rendered by a radiologist certified under theMammography Quality Standards Act of 1992 (MQSA). The mammograms werealso examined with computer-aided detection software ([employer] Reported By: AARON DE ANDA M.D. :61 MAMM, BILAT SCRN DIGITAL & CAD Radiology Report See Note (Normal) Comments: Exam Number: [id number] BILATERAL SCREENING DIGITAL MAMMOGRAM CLINICAL INFORMATIONScreening. TECHNIQUEBilateral digital mammography was performed as a screening exam. Standard CC and MLO views were obtai remi. This represents a baselinestudy for this patient. FINDINGSThe overall appearance of the breasts is essentially unremarkable withscattered fibroglandular elements bilaterally. No dominant masses a reevident, and no suspicious groups of calcifications are seen. In thecentral aspect of the right breast seen on both the MLO andcraniocaudal projections, there is an area of asymmetric density. This i s most likely superimposed fibroglandular tissue and trabecula.However, since this is a baseline exam, it is recommended that this befurther evaluated with spot compression views. IMPRESSIONThere is an area of asymmetric density in the right breast which isfelt to warrant further evaluation with spot compression views. Thisis most likely nearly overlap of trabecula and fibroglandular tissue. FINAL A SSESSMENTBIRADS 0. Additional views recommended. A letter regarding the results has been sent to the patient. This interpretation was rendered by a radiologist certified under theMammography Quality S tand[place] Act of 1992 (MQSA). The mammograms werealso examined with computer- aided detection software ([employer] Reported By: SUSI MACK M.D. [id number]-[id number] PELVIC (NON-PREG) (HP) Radiology Report See Note (Normal) Comments: Exam Number: [id number] TRANSABDOMINAL PELVIC ULTRASOUND CLINICAL STATEMENTLower abdominal pain. COMPARISONNone. FINDINGSImaging was performed through the distended urinary bladder. Theuterus is antev erted measuring 10.9 x 3.7 x 6.0 cm. No myometrialmasses are shown. Endometrial thickness of 8 mm. The right and left ovaries are 2.3 x 1.5 x 1.9 cm and 3.4 x 2.3 x 3.5cm respectively. The left ova ry contains a 2.3 x 1.9 x 2.2 cmsonolucency likely secondary to a small cyst or dominant follicle. Consider reevaluation in 6 to 8 weeks to confirm resolution. Noadnexal mass or free pelvic fluid is sh own. IMPRESSION2.3-cm left ovarian sonolucency likely secondary to a small cyst ordominant follicle. Suggest reevaluation in 6 to 8 weeks to confirmresolution. Reported By: SUSI HAGAN M.D. Plan of Care Name Dates Details Instructions Encounter for general adult medical examination with abnormal findings : Eprescribed prescriptions (G8553) Indication: Encounter for general adult medical examination with abnormal findings Low back pain : Eprescribed prescriptions (G8553) Indication: Low back pain Candidiasis, mouth : Follow up if no improvement or if symptoms worsen Indication: Candidiasis, mouth Hypoxia : Follow up in 2 weeks with DB Indication: Hypoxia Impaired fasting glucose : Eprescribed prescriptions (G8553) Indication: Impaired fasting glucose Benign essential hypertension : Allergies: Controlling Your Environment: allergen Indication: Benign essential hypertension Impaired fasting glucose : Anxiety: emotional health Indication: Impaired fasting glucose [employer] V73.21 (Renamed from [employer]) : *Well Female Maintenance (KF) Indication: Go[employer] V73.21 (Renamed from [employer]) [employer] V73.21 (Renamed from [employer]) : Pap/Pelvic/Bimanual/Rectal/Breast Exam was done. Indication: [employer] V73.21 (Renamed from [employer]) Dysuria : Water in diet, brief version Indication: Dysuria Dysuria : *UTI treatment Indication: Dysuria Dysuria : *UTI treatment Indication: Dysuria Dysuria : UTI treatment Indication: Dysuria Fatigue : FOLLOW UP IN 2 WEEKS Indication: Fatigue Fatigue : *fatigue education Indication: Fatigue Planned Observations MICROALBUMIN: CREATININE RATIO ([id number]) AND (93555)Indication: Hypertension On: :52 Request URINALYSIS ([id number])Indication: Hypertension On: :52 Request CBC WITH MANUAL DIFF ([id number])Indication: Hypertension On: :52 Request Metabolic Panel, Comprehensive (29735)Indication: Hypertension On: :52 Request Anti-TPO Antibody (40253)Indication: Subclinical hyperthyroidism On: 28-Udl-873974:40 Request Comments: check in February T4, FREE (THYROXINE) (75886)Indication: Subclinical hyperthyroidism On: 58-Ifj-778361:40 Request Comments: check in February T-3 UPTAKE (57786)Indication: Subclinical hyperthyroidism On: 86-Dqg-223779:40 Request Comments: recheck February TSH (31274)Indication: Subclinical hyperthyroidism On: 77-Dwm-143938:40 Request Comments: recheck February CULTURE, SPUTUM (35178)Indication: COPD with acute exacerbation (Renamed from Acute exacerbation of chronic obstructive airways disease) On: 7-Dht-245228:45 Request Anti-TPO Antibody (35806)Indication: Abnormal blood chemistry On: :18 Request T3, FREE (TRIDOTHYRONINE) (65739)Indication: Abnormal blood chemistry On: :18 Request T4, FREE (THYROXINE) (08407)Indication: Abnormal blood chemistry On: :18 Request TSH (27352)Indication: Abnormal blood chemistry On: :18 Request D-Dimer (36056)Indication: Chest pain On: 0-Wbr-087576:49 Request Comments: do all labs stat...zaria to on zaria if abnormal CPK MB FRACTION (54030)Indication: Chest pain On: 9-Pzx-370910:22 Request CREATINE KINASE TOTAL (95099)Indication: Chest pain On: 0-Zli-327394:22 Request Metabolic Panel, Comprehensive (23678)Indication: Fatigue On: 0-Dya-482561:06 Request CBC, Platelets & Auto Diff (34401)Indication: Immunocompromised On: 0-Chu-806970:03 Request CULTURE, SPUTUM (09231)Indication: Bronchitis, acute On: 2-Wqa-759759:58 Request METABOLIC PANEL, COMPREHENSIVE (03646)Indication: Benign essential hypertension On: 83-Wsv-838633:57 Request LIPID PANEL ([id number])Indication: Benign essential hypertension On: 15-Sxk-697338:57 Request T4, FREE (THYROXINE) ([id number])Indication: Perimenopausal menorrhagia On: 6-Rml-171640:00 Request TSH (THYROID STIMULATING HORMONE) (75261)Indication: Perimenopausal menorrhagia On: 7-Ece-502091:59 Request Comments: fax copy all labs to Dr. bales HCG (HUMAN CHORIONIC GONADOTROPIN) ([id number])Indication: Perimenopausal menorrhagia On: 7-Xqs-383656:57 Request PTT (ACTIVATED PARTIAL THROMBOPLASTIN TIME) ([id number])Indication: Perimenopausal menorrhagia On: 8-Zrt-257256:57 Request PT/INR, Office (47149)Indication: Perimenopausal menorrhagia On: 2-Yfz-518496:57 Request 17-HYDROXYPREGNENOLONE ([id number])Indication: Perimenopausal menorrhagia On: :57 Request PROLACTIN ([id number])Indication: Perimenopausal menorrhagia On: 6-Gpg-262809:57 Request LIPID PANEL ([id number])Indication: Benign essential hypertension On: 97-Nmw-785973:28 Request CCP ANTIBODY ([id number])Indication: Acute rheumatoid arthritis On: : Request SED RATE ERYTHROCYTE ([id number])Indication: Acute rheumatoid arthritis On: :17 Request C-REACTIVE PROTEIN ([id number])Indication: Acute rheumatoid arthritis On: :17 Request TSH ([id number])Indication: Acute rheumatoid arthritis On: :17 Request RHEUMATOID FACTOR-QUANT (33478)Indication: Acute rheumatoid arthritis On: :17 Request ISIAH (ANTINUCLEAR ANTIBODY) ([id number])Indication: Acute rheumatoid arthritis On: :17 Request URINALYSIS, W/ MICRO ([id number])Indication: Benign essential hypertension On: 3-Eiz-793288:20 Request METABOLIC PANEL, COMPREHENSIVE (80260)Indication: Benign essential hypertension On: :20 Request LIPID PANEL (43707)Indication: Benign essential hypertension On: 4-Jom-431104:20 Request CBC WITH MANUAL DIFF ([id number])Indication: Benign essential hypertension On: 4-Duk-130844:20 Request URINE ALISSON CULTURE (SRAVANI COL COUNT) (12181)Indication: Hematuria On: 78-Kfl-187169:04 Request METABOLIC PANEL, COMPREHENSIVE (40171)Indication: Nausea and vomiting On: 40-Wtb-419216:02 Request CBC WITH MANUAL DIFF ([id number])Indication: Nausea and vomiting On: 65-Xgz-508382:02 Request Lipase (61329)Indication: Nausea and vomiting On: 80-Pxw-984625:01 Request Amylase (34018)Indication: Nausea and vomiting On: 30-Mck-509948:01 Request OVA & PARASITE DIR SMEAR ([id number])Indication: Diarrhea On: 32-Zdg-678569: Request C.Difficile, Stool ([id number])Indication: Diarrhea On: 07-Wfj-822520:01 Request LEUKOCYTE COUNT, FECAL ([id number])Indication: Diarrhea On: 81-Ssa-724352: Request ALISSON CULTURE-STOOL ([id number])Indication: Diarrhea On: 32-Bit-730223: Request TSH ([id number])Indication: Depression On: 1-Snf-067253:10 Request MICROALBUMIN: CREATININE RATIO (44009) AND ([id number])Indication: Benign essential hypertension On: 7-Lry-144275:10 Request METABOLIC PANEL, COMPREHENSIVE ([id number])Indication: Benign essential hypertension On: 4-Sin-763000:10 Request LIPID PANEL (31933)Indication: Benign essential hypertension On: :09 Request CBC WITH MANUAL DIFF ([id number])Indication: Benign essential hypertension On: 7-Qbo-224157:09 Request URINALYSIS W/O MICRO ([id number])Indication: Benign essential hypertension On: :39 Request MICROALBUMIN URINE QUANT ([id number])Indication: Benign essential hypertension On: :39 Request METABOLIC PANEL, COMPREHENSIVE (33987)Indication: Benign essential hypertension On: :39 Request LIPID PANEL ([id number])Indication: Benign essential hypertension On: :39 Request ISIAH (ANTINUCLEAR ANTIBODY) ([id number])Indication: Fatigue On: :39 Request C-REACTIVE PROTEIN ([id number])Indication: Fatigue On: :39 Request CBC (AUTO) ([id number])Indication: Fatigue On: :39 Request Folate ([id number])Indication: Fatigue On: :39 Request METABOLIC PANEL, COMPREHENSIVE (19394)Indication: Fatigue On: :39 Request RHEUMATOID FACTOR-QUANT ([id number])Indication: Fatigue On: :39 Request SED RATE ERYTHROCYTE ([id number])Indication: Fatigue On: :39 Request TSH ([id number])Indication: Fatigue On: 1-Ghk-725800:39 Request VITAMIN B-12 (CYANOCOBALAMIN) ([id number])Indication: Fatigue On: 2-Pac-469513:39 Request Planned Encounters Medical; [facility] Exam (Doctor) - On: 22-Mar-2018 10:15 [facility] Shasha Barker MD, MD, Dana M Planned Procedures MRI OF LUMBAR SPINE WITH AND WITHOUT On: 18-Jan-2018 Intent CONTRAST ([id number])By: Shasha Barker MD Comments: rule out cauda equina syndrome, back injection also in last [facility] M Shasha Barker MD THYROID SCAN UPTAKE ([id number])By: On: 16-Nov-2017 Intent Shasha Barker MD, MD, Dana Comments: subacute thyrioditis vs autoimmune M Radiology - PelvisBy: Mj AL, On: 20-Oct-2017 Intent Shasha Ba MD Comments: attention left ischial tuberosity where pain and fall EMGBy: Shasha Barker MD On: 20-Oct-2017 Intent Shasha AL Comments: left arm Nerve ConductionBy: Shasha Barker MD On: 20-Oct-2017 Intent Shasha Gillespie MD Comments: left arm Solu -Medrol Injection, 125 mg On: 15-May-2017 Intent (J2930)By: Shasha Barker MD Comments: Lot # [id number] solu [facility] Radiology - ChestBy: Mj AL, On: 15-May-2017 Intent Shasha Ba MD Solu- Medrol Injection, 125mg On: 12-May-2017 Intent ([id number])By: Shasha Barker MD, MD, Dana M Aerosol Treatment ([id number])By: Mj On: 12-May-2017 Intent Shasha AL MD, Dana M EKG ([id number])By: Shasha Barker MD On: 12-Mar-2017 Intent Shasha Barker MD Radiology - Foot - RightBy: Mj On: 18-Aug-2016 Intent Shasha AL MD, Dana M Comments: s/p fall and trauma ot right foot. CT - Chest (Without Contrast)By: On: 03-Jul-2016 Intent Shasha Barker MD, MD, Dana Comments: check in 6 months December [address] - Chest (IV Contrast Needed)By: On: 23-Jun-2016 Intent Shasha Barker MD, MD, Dana M XRAY LEFT SMALL TOE ([id number])By: On: 20-May-2016 Intent Shasha Barker MD, MD, Dana Comments: 5th digit focus on area of pain and get distal metatarsal bone M MAMMOGRAM BREAST BILATERAL SCREENING On: 06-May-2016 Intent DIGITAL ([id number])By: Shasha Barker MD, MD, Dana M DEXA SCAN AXIAL SKELETON ([id number])By: On: 06-May-2016 Intent Shasha Barker MD, MD, Dana M Ultrasound - RenalBy: Mj AL, On: 07-Aug-2015 Intent Shasha Ba MD Nuclear Stress Test/Stress On: 08-Jun-2015 Intent SPECT/AdenosineBy: Shasha Barker MD, MD, Dana M Radiology - ChestBy: Chuyita ROSS Ophelia On: 27-Feb-2015 Intent E Radiology - ChestBy: Chuyita ROSSOphelia On: 05-Feb-2015 Intent E Ultrasound - PelvisBy: Chuyita ROSS, On: 19-Jul-2014 Intent Vero EKG ([id number])By: Shasha Barker MD On: 23-Jun-2013 Intent Shasha Barker MD Comments: see scanned document of test done to see results reviewed today with patient MAMMOGRAM, SCREENING, BOTH BREASTS On: 23-Jun-2013 Intent ([id number])By: Shasha Barker MD, MD, Dana M Eprescribed prescriptions (G8553)By: On: 23-Jun-2013 Intent Shasha Barker MD, MD, Dana M Radiology - Hand - BilateralBy: On: 10-Feb-2013 Intent Shasha Barker MD, MD, Dana Comments: copy to Dr. 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 L CT - Abdomen & Pelvis (IV Contrast On: 12-Mar-2012 Intent Needed)By: Shasha Barker MD, MD, Dana M MAMMOGRAM, SCREENING, BOTH BREASTS On: 29-Apr-2011 Intent ([id number])By: Shasha Barker MD, MD, Dana M MAMMOGRAM, SCREENING, BOTH BREASTS On: 25-Apr-2011 Intent ([id number])By: Shasha Barker MD, MD, Dana M EKG ([id number])By: JACKIE Bruno On: 26-Aug-2010 Intent Ultrasound - GallbladderBy: Fast DO, On: 27-May-2010 Intent Philomena A Ultrasound - GallbladderBy: Fast DO, On: 24-May-2010 Intent Philomena A Doppler Ultrasound OtherBy: Augustine On: 25-Apr-2010 Intent DO, Jeannette Comments: L lower extrrem- eval for clot and eval bakers cyst? size ? leaking ? Radiology - ChestBy: Mj AL, On: 23-May-2009 Intent Shasha Ba MD EKG ([id number])By: Shasha Barker MD On: 24-Apr-2009 Intent [address] CT - Brain/HeadBy: Shasha Barker MD On: 24-Apr-2009 Intent Shasha Gillespie MD EKG ([id number])By: Shasha Barker MD On: 14-Apr-2008 Intent Shasha Barker MD MAMMOGRAM, SCREENING, BOTH BREASTS On: 14-Apr-2008 Intent ([id number])By: Shasha Barker MD, MD, Dana M Ultrasound - PelvisBy: Mj AL, On: 23-Nov-2006 Intent Shasha Ba MD EKG ([id number])By: MILTON ROSS PEGGY On: 10-Aug-2006 Intent Comments: NSR Planned Medications INJECTION, METHYLPREDNISOLONE SODIUM SUCCINATE, UP TO 125 MG Ordered: 12-May-2017 Pending Shasha Barker MD, MD, Dana M INJECTION, METHYLPREDNISOLONE SODIUM SUCCINATE, UP TO 125 MG Ordered: 15-May-2017 Pending Shasha Barker MD, MD, Dana M Instructions Name Dates Details BMI 31.0-31.9,adult : How to access health information online Indication: BMI 31.0-31.9,adult BMI 31.0-31.9,adult : How to access health information online - Detail Indication: BMI 31.0-31.9,adult BMI 31.0-31.9,adult : Patient Instructions Indication: BMI 31.0-31.9,adult Subclinical hyperthyroidism : How to access health information online Indication: Subclinical hyperthyroidism Subclinical hyperthyroidism : How to access health information online - Detail Indication: Subclinical hyperthyroidism Subclinical hyperthyroidism : Patient Instructions Indication: Subclinical hyperthyroidism BMI 30.0-30.9,adult : How to access health information online Indication: BMI 30.0-30.9,adult BMI 30.0-30.9,adult : How to access health information online - Detail Indication: BMI 30.0-30.9,adult BMI 30.0-30.9,adult : Patient Instructions Indication: BMI 30.0-30.9,adult Interstitial lung disease : How to access health information online Indication: Interstitial lung disease Interstitial lung disease : How to access health information online - Detail Indication: Interstitial lung disease Interstitial lung disease : Patient Instructions Indication: Interstitial lung disease Inflammatory osteoarthritis : How to access health information online Indication: Inflammatory osteoarthritis Inflammatory osteoarthritis : How to access health information online - Detail Indication: Inflammatory osteoarthritis Inflammatory osteoarthritis : Patient Instructions Indication: Inflammatory osteoarthritis COPD with acute exacerbation (Renamed from Acute exacerbation of chronic obstructive airways disease) : How to access health information online Indication: COPD with acute exacerbation (Renamed from Acute exacerbation of chronic obstructive airways disease) COPD with acute exacerbation (Renamed from Acute exacerbation of chronic obstructive airways disease) : How to access health information online - Detail Indication: COPD with acute exacerbation (Renamed from Acute exacerbation of chronic obstructive airways disease) COPD with acute exacerbation (Renamed from Acute exacerbation of chronic obstructive airways disease) : Patient Instructions Indication: COPD with acute exacerbation (Renamed from Acute exacerbation of chronic obstructive airways disease) BMI 30.0-30.9,adult : How to access health information online Indication: BMI 30.0-30.9,adult BMI 30.0-30.9,adult : How to access health information online - Detail Indication: BMI 30.0-30.9,adult BMI 30.0-30.9,adult : Patient Instructions Indication: BMI 30.0-30.9,adult BMI 31.0-31.9,adult : How to access health information online Indication: BMI 31.0-31.9,adult BMI 31.0-31.9,adult : How to access health information online - Detail Indication: BMI 31.0-31.9,adult BMI 31.0-31.9,adult : Patient Instructions Indication: BMI 31.0-31.9,adult BMI 31.0-31.9,adult : How to access health information online Indication: BMI 31.0-31.9,adult BMI 31.0-31.9,adult : How to access health information online - Detail Indication: BMI 31.0-31.9,adult BMI 31.0-31.9,adult : Patient Instructions Indication: BMI 31.0-31.9,adult BMI 30.0-30.9,adult : How to access health information online Indication: BMI 30.0-30.9,adult BMI 30.0-30.9,adult : How to access health information online - Detail Indication: BMI 30.0-30.9,adult BMI 30.0-30.9,adult : Patient Instructions Indication: BMI 30.0-30.9,adult BMI 29.0-29.9,adult : How to access health information online Indication: BMI 29.0-29.9,adult BMI 29.0-29.9,adult : How to access health information online - Detail Indication: BMI 29.0-29.9,adult BMI 29.0-29.9,adult : Patient Instructions Indication: BMI 29.0-29.9,adult Acute foot pain, right : How to access health information online Indication: Acute foot pain, right Acute foot pain, right : How to access health information online - Detail Indication: Acute foot pain, right Acute foot pain, right : Patient Instructions Indication: Acute foot pain, right Interstitial lung disease : How to access health information online Indication: Interstitial lung disease Interstitial lung disease : How to access health information online - Detail Indication: Interstitial lung disease Interstitial lung disease : Patient Instructions Indication: Interstitial lung disease BMI 30.0-30.9,adult : How to access health information online Indication: BMI 30.0-30.9,adult BMI 30.0-30.9,adult : How to access health information online - Detail Indication: BMI 30.0-30.9,adult BMI 30.0-30.9,adult : Patient Instructions Indication: BMI 30.0-30.9,adult Encounter for general adult medical examination with abnormal findings : How to access health information online Indication: Encounter for general adult medical examination with abnormal findings Encounter for general adult medical examination with abnormal findings : How to access health information online - Detail Indication: Encounter for general adult medical examination with abnormal findings Encounter for general adult medical examination with abnormal findings : Patient Instructions Indication: Encounter for general adult medical examination with abnormal findings Abnormal finding of kidney : How to access health information online Indication: Abnormal finding of kidney Abnormal finding of kidney : How to access health information online - Detail Indication: Abnormal finding of kidney Abnormal finding of kidney : Patient Instructions Indication: Abnormal finding of kidney Chest pain : How to access health information online Indication: Chest pain Chest pain : How to access health information online - Detail Indication: Chest pain Chest pain : Patient Instructions Indication: Chest pain Low back pain : How to access health information online Indication: Low back pain Low back pain : How to access health information online - Detail Indication: Low back pain Interstitial lung disease : How to access health information online Indication: Interstitial lung disease Interstitial lung disease : How to access health information online - Detail Indication: Interstitial lung disease Interstitial lung disease : Patient Instructions Indication: Interstitial lung disease Candidiasis, mouth : Patient Instructions Indication: Candidiasis, mouth Cough : Patient Instructions Indication: Cough Impaired fasting glucose : How to access health information online Indication: Impaired fasting glucose Impaired fasting glucose : How to access health information online - Detail Indication: Impaired fasting glucose Impaired fasting glucose : Patient Instructions Indication: Impaired fasting glucose Chronic interstitial cystitis : Patient Instructions Indication: Chronic interstitial cystitis Impaired fasting glucose : Patient Instructions Indication: Impaired fasting glucose Impaired fasting glucose : Patient Instructions Indication: Impaired fasting glucose Benign essential hypertension : Patient Instructions Indication: Benign essential hypertension Impaired fasting glucose : Patient Instructions Indication: Impaired fasting glucose Impaired fasting glucose : Patient Instructions Indication: Impaired fasting glucose Encounters Lab Order On: 08-Mar-2018 13:50 Encounter Diagnosis: Hypertension End: 08-Mar-2018 13:53 [facility] Office Visit On: 18-Jan-2018 15:10 Encounter Diagnosis: Degeneration of intervertebral disc of lumbar region, Urinary incontinence in female, Leg pain, bilateral End: 28-Jan-2018 6:09 [facility] Phone Encounter On: 06-Jan-2018 10:14 Encounter Diagnosis: Nail fungus End: 06-Jan-2018 10:27 [facility] Office Visit On: 05-Jan-2018 12:42 Encounter Reason: Follow up acute care visit - The patient feeling better since last seen and improving. Patient has been compliant with instructions. Current medication use: no side effects and compliant with dosing reg End: 28-Jan-2018 6:06 imen. Patient sleeps 7 hours per night. Impact of disease: emotional impact-moderate. Nutrition: balanced diet and supplemental vitamins.Encounter Diagnosis: BMI 31.0-31.9,adult, Tobacco abuse, Interstitial lung disease, Hyperlipidemia, mild, Degeneration of intervertebral disc of lumbar region, Fatigue, Hypertension, Abnormal fasting glucose, Fibromyalgia, Postmenopausal (Renamed from Postmenopausal status), Gastroesophageal reflux disease with esophagitis, Immunocompromised, MTHFR mutation, Abnormal finding of kidney, Degenerative joint disease of cervical spine, COPD with acute exacerbation (Renamed from Acute exacerbation of chronic obstructive airways disease), Acute rheumatoid arthritis, Subclinical hyperthyroidism, Frequent fasciculation of muscle of extremity, Chronic interstitial cystitis, Depression, Pain in left hip, Pulmonary hypertension, Anxiety, Cerumen debris on tympanic membrane, left [facility] Lab Order On: 20-Nov-2017 15:30 Encounter Diagnosis: Subclinical hyperthyroidism End: 20-Nov-2017 15:41 [facility] Office Visit On: 16-Nov-2017 11:40 Encounter Reason: Follow up, Diagnostic Procedure Results - Diagnostic tests include other (labs). Date: ().Encounter Diagnosis: BMI 31.0-31.9,adult, Subclinical hyperthyroidism, Tobacco abuse, Gastroesophageal reflux disease with esophagitis, End: 16-Nov-2017 12:25 Postmenopausal (Renamed from Postmenopausal status), Immunocompromised, Abnormal finding of kidney, MTHFR mutation, Fibromyalgia, Hyperkalemia, Degeneration of intervertebral disc of lumbar region, Hyperlipidemia, mild, Fatigue, Abnormal fasting glucose, Hypertension, Depression, Chronic interstitial cystitis, Frequent fasciculation of muscle of extremity, Pain in left hip, Anxiety, Pulmonary hypertension, Degenerative joint disease of cervical spine, Acute rheumatoid arthritis, Interstitial lung disease, COPD with acute exacerbation (Renamed from Acute exacerbation of chronic obstructive airways disease), Cerumen debris on tympanic membrane, left [facility] Annotation/Addendum On: 20-Oct-2017 16:58 Encounter Diagnosis: Frequent fasciculation of muscle of extremity End: 21-Oct-2017 8:11 [facility] Office Visit On: 20-Oct-2017 15:40 Encounter Diagnosis: BMI 30.0-30.9,adult, Tobacco abuse, Sciatica, left side, Degeneration of intervertebral disc of lumbar region, Hyperkalemia, Hyperlipidemia, mild, Abnormal fasting glucose, Fatigue, Fibromyalgia, End: 20-Oct-2017 16:36 Postmenopausal (Renamed from Postmenopausal status), Gastroesophageal reflux disease with esophagitis, Interstitial lung disease, Anxiety, Immunocompromised, MTHFR mutation, Inflammatory osteoarthritis, Acute rheumatoid arthritis, Chronic interstitial cystitis, Abnormal finding of kidney, Palpitation, Hypertension, Degenerative joint disease of cervical spine, Pulmonary hypertension, Depression, BMI 31.0-31.9,adult, COPD with acute exacerbation (Renamed from Acute exacerbation of chronic obstructive airways disease), Cerumen debris on tympanic membrane, left, Frequent fasciculation of muscle of extremity, Pain in left hip [facility] Phone Encounter On: 18-Aug-2017 11:45 Encounter Diagnosis: Cerumen debris on tympanic membrane, left End: 18-Aug-2017 11:51 [facility] Office Visit On: 18-Aug-2017 10:57 Encounter Reason: Follow up acute care visit - The patient feels the same and has decreased energy level. Patient has been compliant with instructions. Current medication use: no side effects and compliant with dosing re End: 18-Aug-2017 11:41 gimen. Patient sleeps 7 hours per night. Impact of disease: emotional impact-moderate. Nutrition: balanced diet and supplemental vitamins. The medical issues the patient is following up for include other (lung issues).Encounter Diagnosis: BMI 31.0-31.9,adult, Interstitial lung disease, Tobacco abuse, Gastroesophageal reflux disease with esophagitis, Chronic interstitial cystitis, Postmenopausal (Renamed from Postmenopausal status), MTHFR mutation, Immunocompromised, Anxiety, Hyperlipidemia, mild, Hyperkalemia, Degeneration of intervertebral disc of lumbar region, Fibromyalgia, Fatigue, Abnormal finding of kidney, Abnormal fasting glucose, Degenerative joint disease of cervical spine, Inflammatory osteoarthritis, Liver lesion, right lobe, Hypertension, Abnormal RBC, Depression, Pulmonary hypertension, Fracture of foot, Pneumonia, bacterial, BMI 28.0-28.9,adult, BMI 29.0- 29.9,adult, Palpitation, BMI 30.0-30.9,adult, Acute rheumatoid arthritis, Acute foot pain, right, COPD with acute exacerbation (Renamed from Acute exacerbation of chronic obstructive airways disease) [facility] Office Visit On: 14-Jul-2017 10:24 Encounter Reason: Follow up hospital - Reason for ER visit: note: (Interstitital lung disease). The patient feels well with minor complaints and has decreased energy level. Patient has been compliant with instructions. C End: 14-Jul-2017 13:14 urrent medication use: compliant with dosing regimen. Patient sleeps 7 hours per night. Impact of disease: emotional impact-mild. Nutrition: balanced diet.Encounter Diagnosis: Interstitial lung disease, Inflammatory osteoarthritis, Tobacco abuse, BMI 31.0-31.9,adult, Chronic interstitial cystitis, Gastroesophageal reflux disease with esophagitis, Liver lesion, right lobe, Encounter for general adult medical examination with abnormal findings [facility] Phone Encounter On: 09-Jun-2017 15:42 Encounter Diagnosis: Anxiety End: 09-Jun-2017 15:46 [facility] Office Visit On: 15-May-2017 11:41 Encounter Reason: Follow up acute care visit - The patient feels the same. Patient has been compliant with instructions. Current medication use: no side effects and compliant with dosing regimen. Patient sleeps 6 hours p End: 19-May-2017 11:50 er night. Impact of disease: emotional impact-moderate. Nutrition: balanced diet and supplemental vitamins. The medical issues the patient is following up for include URI.Encounter Diagnosis: BMI 30.0-30.9,adult, COPD with acute exacerbation (Renamed from Acute exacerbation of chronic obstructive airways disease), Tobacco abuse [facility] Office Visit On: 12-May-2017 14:11 Encounter Diagnosis: BMI 30.0-30.9,adult, Tobacco abuse, COPD with acute exacerbation (Renamed from Acute exacerbation of chronic obstructive airways disease), Interstitial lung disease, Depression End: 12-May-2017 14:50 [facility] Office Visit On: 07-Apr-2017 12:07 Encounter Reason: Follow up acute care visit - The patient feels the same and has decreased energy level. Patient has been compliant with instructions. Current medication use: no side effects and compliant with dosing re End: 07-Apr-2017 13:08 gimen. Patient sleeps 6 hours per night. Impact of disease: emotional impact-moderate. Nutrition: balanced diet and poor nutrition. The medical issues the patient is following up for include depression and other (lung obstruction). Encounter Diagnosis: BMI 31.0-31.9,adult, Tobacco abuse, Depression, Degenerative joint disease of cervical spine, Abnormal blood chemistry [facility] Office Visit On: 12-Mar-2017 10:21 Encounter Reason: Follow up acute care visit - The patient worsening. Patient has been compliant with instructions. Patient sleeps 7 hours per night. Impact of disease: emotional impact-moderate. Nutrition: balanced diet End: 12-Mar-2017 11:27 and supplemental vitamins. The medical issues the patient is following up for include depression.Encounter Diagnosis: BMI 31.0-31.9,adult, Immunocompromised, Palpitation, Abnormal finding of kidney, Degeneration of intervertebral disc of lumbar region, Hyperkalemia, Degenerative joint disease of cervical spine, MTHFR mutation, Postmenopausal (Renamed from Postmenopausal status), Chronic interstitial cystitis, Impaired fasting glucose, Fibromyalgia, Fatigue, Abnormal RBC, Hyperlipidemia, mild, Acute foot pain, right, Depression, Tobacco abuse, Interstitial lung disease, Pulmonary hypertension, Hypertension, Acute rheumatoid arthritis, Prediabetes, Anxiety, Fracture of foot, Pneumonia, bacterial, BMI 28.0-28.9,adult, BMI 29.0-29.9,adult, BMI 30.0-30.9,adult, COPD with acute exacerbation (Renamed from Acute exacerbation of chronic obstructive airways disease), Abnormal blood chemistry [facility] Office Visit On: 27-Jan-2017 12:06 Encounter Reason: Follow up hospital - Reason for ER visit: note: (respiratory issues). The patient feels well with minor complaints and has decreased energy level. Patient has been compliant with instructions. Current m End: 28-Jan-2017 20:46 edication use: no side effects and has decreased dose. Patient sleeps 7 hours per night. Impact of disease: emotional impact-mild. Nutrition: balanced diet and supplemental vitamins.Encounter Diagnosis: BMI 30.0-30.9,adult, Tobacco abuse, Interstitial lung disease, Pulmonary hypertension, Dysuria (788.1) [facility] Phone Encounter On: 26-Jan-2017 13:58 Encounter Diagnosis: Acute rheumatoid arthritis End: 26-Jan-2017 14:06 [facility] Phone Encounter On: 30-Oct-2016 6:17 Encounter Diagnosis: Hypertension End: 30-Oct-2016 6:19 [facility] Office Visit On: 16-Oct-2016 11:11 Encounter Reason: Follow up acute care visit - The patient feeling better since last seen and improving. Patient has been compliant with instructions. Current medication use: no side effects and compliant with dosing reg End: 16-Oct-2016 12:06 imen. Patient sleeps 7 hours per night. Impact of disease: emotional impact-moderate. Nutrition: balanced diet and supplemental vitamins. The medical issues the patient is following up for include other (aches and pains, HTN ).Encounter Diagnosis: BMI 29.0-29.9,adult, Tobacco abuse, Immunocompromised, Abnormal finding of kidney, Degeneration of intervertebral disc of lumbar region, Postmenopausal (Renamed from Postmenopausal status), Chronic interstitial cystitis, Hyperlipidemia, mild, Impaired fasting glucose, Fibromyalgia, Fatigue, Abnormal RBC, Acute rheumatoid arthritis, Hyperkalemia, Anxiety, Fracture of foot, Degenerative joint disease of cervical spine, Benign essential hypertension, Depression, Interstitial lung disease, Acute foot pain, right, Prediabetes, BMI 30.0-30.9,adult, BMI 28.0-28.9,adult, COPD with acute exacerbation (Renamed from Acute exacerbation of chronic obstructive airways disease), Pneumonia, bacterial, MTHFR mutation [facility] Office Visit On: 04-Sep-2016 11:10 Encounter Reason: Follow up acute care visit - The patient does not feel well and has decreased energy level. Patient has been compliant with instructions. Current medication use: no side effects and compliant with dosin End: 04-Sep-2016 11:59 g regimen. Patient sleeps 6 hours per night. Impact of disease: emotional impact- moderate. Nutrition: balanced diet and supplemental vitamins. The medical issues the patient is following up for include other (chronic pain, fractured right foot, HTN ).Encounter Diagnosis: Acute foot pain, right, Tobacco abuse, Benign essential hypertension, Current nonsmoker (Renamed from Current non-smoker), Interstitial lung disease, Degenerative joint disease of cervical spine, Hyperkalemia, Syncope and collapse, Acute rheumatoid arthritis, Elevated WBC count, Fracture of foot, Anxiety [facility] Lab Order On: 21-Aug-2016 6:19 Encounter Diagnosis: Hyperkalemia, Elevated WBC count End: 21-Aug-2016 6:21 [facility] Phone Encounter On: 19-Aug-2016 8:51 Encounter Diagnosis: Fracture of foot End: 19-Aug-2016 8:57 [facility] Office Visit On: 18-Aug-2016 11:28 Encounter Reason: Follow up hospital - Reason for ER visit: note: (hypoxia ). The patient feels well with minor complaints and has decreased energy level. Patient has been compliant with instructions. Current medication End: 19-Aug-2016 6:28 use: no side effects, compliant with dosing regimen and considered effective by patient. Patient sleeps 7 hours per night. Impact of disease: emotional impact- mild. Nutrition: balanced diet and suppleme ntal vitamins. Hospital procedures performed were heart catherization. The hospital results of the other (cardiac cath, echo ) wereEncounter Diagnosis: BMI 28.0- 28.9,adult, Interstitial lung disease, Tobacco abuse, Acute foot pain, right, Pneumonia, bacterial, Syncope and collapse, Abnormal blood chemistry, Benign essential hypertension [facility] Office Visit On: 01-Aug-2016 10:27 Encounter Diagnosis: COPD with acute exacerbation (Renamed from Acute exacerbation of chronic obstructive airways disease) End: 01-Aug-2016 16:01 [facility] Phone Encounter On: 03-Jul-2016 13:48 Encounter Diagnosis: Interstitial lung disease End: 03-Jul-2016 13:57 [facility] Phone Encounter On: 23-Jun-2016 15:35 Encounter Diagnosis: Abnormal finding on radiology exam End: 23-Jun-2016 15:38 [facility] Office Visit On: 20-May-2016 9:53 Encounter Diagnosis: BMI 30.0-30.9,adult, Tobacco abuse, Fibromyalgia, Pain and swelling of toe of left foot End: 20-May-2016 10:30 [facility] Office Visit On: 06-May-2016 8:01 Encounter Reason: Physical female exam - General health: feels well with minor complaints (hurts with her RA), has decreased energy level and is sleeping well. The patient's appetite is normal. Nutrition: normal/adequate End: 08-May-2016 11:32 . Exercises 0 days per week. Sleeps on average 7 hours per night. Elimination problems include urinary incontinence (not for a while while laughing), constipation (off and on) and diarrhea (off and on). Safety measures include appropriate use of safety belts, appropriate use of helmets and home smoke detectors. Current emotional problems include depression (wellbutrin) and sleep disturbances. screenin g, colonoscopy (2015), screening, mammography, screening, Pap smear (2015, and had DNC) and screening, visual acuity (11/2015, did glacoma test and special testing to do with her RA).Encounter Diagnosis: Encounter for general adult medical examination with abnormal findings, Perimenopausal menorrhagia, Degeneration of intervertebral disc of lumbar region, Chronic interstitial cystitis, Impaired fasting glucose, Obesity, unspecified, Current nonsmoker (Renamed from Current non-smoker), Depression, Chest pain, Anxiety, Interstitial lung disease, History of tobacco abuse, Abnormal finding of kidney, Acute rheumatoid arthritis, Benign essential hypertension, Immunocompromised, Fatigue, Fibromyalgia, Low back pain, BMI 28.0-28.9,adult, Tobacco abuse, Encounter for screening mammogram for breast cancer (Renamed from Encounter for screening mammogram for malignant neoplasm of breast), Postmenopausal (Renamed from Postmenopausal status), Prediabetes, Abnormal RBC, Need for prophylactic vaccination and inoculation against influenza (Renamed from Need for immunization against influenza), Hyperlipidemia, mild [facility] Phone Encounter On: 22-Apr-2016 11:21 [facility] End: 22-Apr-2016 11:47 Phone Encounter On: 07-Aug-2015 17:05 Encounter Diagnosis: Abnormal finding of kidney End: 07-Aug-2015 17:06 [facility] Office Visit On: 06-Aug-2015 11:17 Encounter Reason: Follow up acute care visit - The patient feeling better since last seen and improving. Patient has been compliant with instructions. Current medication use: no side effects and compliant with dosing reg End: 06-Aug-2015 12:08 imen. Patient sleeps 7 hours per night. Impact of disease: emotional impact-moderate. Nutrition: balanced diet and supplemental vitamins. The medical issues the patient is following up for include other (chronic interstitial lung disease ). Encounter Diagnosis: Abnormal finding of kidney, History of tobacco abuse, Interstitial lung disease, Acute rheumatoid arthritis [facility] Office Visit On: 25-Jun-2015 11:28 Encounter Reason: Follow up acute care visit - The patient feels the same. Patient has been compliant with instructions. Current medication use: no side effects, compliant with dosing regimen and considered effective by End: 25-Jun-2015 12:14 patient. Patient sleeps 6 hours per night. Impact of disease: emotional impact-mild. Nutrition: balanced diet and supplemental vitamins. The medical issues the patient is following up for include other (intermittent chest pain ).Encounter Diagnosis: Chest pain, History of tobacco abuse, Chronic interstitial cystitis, Perimenopausal menorrhagia, Obesity, unspecified, Impaired fasting glucose, Fatigue, Fibromyalgia, Benign essential hypertension, Immunocompromised, Low back pain, Degeneration of intervertebral disc of lumbar region, Anxiety, Acute rheumatoid arthritis, Depression, Current nonsmoker (Renamed from Current non-smoker), Interstitial lung disease [facility] Office Visit On: 08-Jun-2015 12:58 Encounter Reason: Chest Pain - Symptoms include chest pain and palpitations. The pain is located in the substernal area and epigastrium. There is no radiation. The patient describes the pain as aching, heavy, pressure-li End: 08-Jun-2015 13:53 ke and squeezing. Onset was sudden 5 month(s) ago. The symptoms occur intermittently, during the day, with activity and with movement. The episodes occur 3 time(s) a day. The patient describes this as m oderate in severity. Symptoms are exacerbated by exercise/activity, lying down and movement. Symptoms are relieved by resting.Encounter Diagnosis: Acute rheumatoid arthritis, Chest pain, Low back pain, Current nonsmoker (Renamed from Current non-smoker), Interstitial lung disease, Degeneration of intervertebral disc of lumbar region [facility] Office Visit On: 15-Mar-2015 11:26 Encounter Reason: Follow up acute care visit - The patient feeling better since last seen and improving. Patient has been compliant with instructions. Current medication use: experiencing side effects (losartan/HCTZ caus End: 15-Mar-2015 12:40 ed dizziness and hypotension so was told to hold that for now ). Patient sleeps 7 hours per night. Impact of disease: emotional impact-mild. Nutrition: balanced diet and supplemental vitamins. The medic al issues the patient is following up for include other (interstitial lung disease ).Encounter Diagnosis: Interstitial lung disease, History of tobacco abuse, Benign essential hypertension, Acute rheumatoid arthritis [facility] Office Visit On: 05-Mar-2015 14:48 Encounter Reason: Thrush, [ADDITIONAL REASON] Fatigue - Note for Fatigue: getting pain med for fibro and norco and stenosis seeing Basali monthly Encounter Diagnosis: Abnormal finding on radiology exam, Hypoxia, Candidiasis, mouth End: 05-Mar-2015 15:26 [facility] Annotation/Addendum On: 28-Feb-2015 14:30 Encounter Diagnosis: Abnormal finding on radiology exam End: 28-Feb-2015 14:34 [facility] Office Visit On: 27-Feb-2015 8:36 Encounter Reason: Transition into care - The patient is transitioning into care from a hospital and a summary of care was reviewed ., [ADDITIONAL REASON] Follow up hospital - Reason for ER visit: pneumonia. Patient has been compliant End: 27-Feb-2015 12:56 with instructions. Current medication use: no side effects. Nutrition: balanced diet. Hospital procedures performed were bronchoscopy. The hospital results of the chest X-ray and CT scan chest were Note for Follow up hospital: Seen on Feb 04with respiratory issues,found bilateral penumoni on plaquenil and methotrexate. Was acutely hypoix with drop in sats was bronched on 02-08 with desaturation sent to ICU bilateraifiltrasts treated levaquin for atypical infection x 9 days with improvement, all cult negative was transferred to [facility] had VATS with Rulung,RML and RLL wedge resection put on prednisone with chesttube pt had orthostic hypo and fell afte C. CHESt showing extensive fibroti changes ? chroinc hypersensitive pneumonitis vs sarcoid. Echo on 02-16 showing Rt to left shunt To follow up with Dr Peter Chatterjee and [facility]. Sent home on predisone. To follow up with Dr. Bright pulmonary at [facility]. Encounter Diagnosis: Interstitial lung disease, Hypoxia [facility] Office Visit On: 05-Feb-2015 15:39 Encounter Reason: Cough - The onset of the cough has been sudden. The amount of sputum produced is scanty. The cough occurs all the time. The symptoms are aggravated by supine posture. The symptoms have been associated End: 05-Feb-2015 16:13 with hoarseness and wheezing, while the symptoms have not been associated with fever, headache or runny nose. the color of the sputum is clear (frothy ). Note for Cough : On plaquenil and methrotrexate Encounter Diagnosis: Bronchitis, acute, Immunocompromised, Cough, Fatigue (780.79) [facility] Historical Summary On: 16-Jan-2015 7:24 [facility] End: 16-Jan-2015 7:25 Office Visit On: 27-Nov-2014 18:13 Encounter Diagnosis: Yeast infection End: 27-Nov-2014 18:16 [facility] Office Visit On: 24-Oct-2014 11:22 Encounter Reason: Follow up tests - Date: (October 2014)., [ADDITIONAL REASON] Follow up for chronic medical issues - The patient feels well with minor complai End: 24-Oct-2014 12:03 nts (think maybe woke up with yeast infection), has good energy level (up and down, methotrexate decreases energy) and is sleeping well (with ambien). Patient has been compliant with instructions. Curre nt medication use: no side effects. Patient sleeps 6 hours per night. Impact of disease: emotional impact-mild. Nutrition: balanced diet and supplemental vitamins. The medical issues the patient is foll owing up for include blood sugar issues, cardiac issues, depression (anxiety), fibromyalgia, high blood pressure and other (DDD, ovarian cyst, paresthesia, arthiritis, CTS, headache ). Encounter Diagnosis: Menorrhagia 627.0, Fibromyalgia (729.1), Fatigue (780.79), Depression (311.), Hypertension 401.1 (Renamed from Hypertension (401.0)), Impaired fasting glucose (790.21), Anxiety (300.00), Cystitis, chronic interstitial (595.1), Obesity,unspecified (278.00), Degenerative Disc Disease (722.6) , WWV V73.21 (Renamed from WWV), arthritis,unspecified (716.90), Pelvic pain in female, Hypokalemia, Yeast infection [facility] Office Visit On: 07-Sep-2014 11:10 Encounter Reason: Follow up tests - Diagnostic tests include other (Pelvic ultrasound). Date: (07/24/2014). Follow up visit with no current symptoms. Past medical history includes hypertension , while there is no history End: 07-Sep-2014 12:04 of abnormal Pap smear, anatomic urinary anomalies, asthma, cardiovascular disease, chest injury, chronic obstructive lung disease, congenital/chromosomal defects, coronary artery disease, current pregna ncy, emotional problems, injury, lung disease, mental retardation, neurologic disorder, psychiatric illness or other.Encounter Diagnosis: arthritis,unspecified (716.90), Fibromyalgia (729.1), Pelvic pain in female, Menorrhagia 627.0 [facility] Office Visit On: 19-Jul-2014 14:57 Encounter Reason: Urinary Frequency - The last clinic visit was 2 week(s) ago. Symptoms include urinary frequency, urinary urgency, suprapubic pain and low back pain. Onset was sudden 2 week(s) ago. The symptoms occur co End: 19-Jul-2014 15:48 nstantly. The patient reports urinating 4 time(s) an hour during the day and 1 times during the night. The patient describes this as moderate in severity and unchanged. The patient is not currently bein g treated for this problem. By report there is good compliance with treatment., [ADDITIONAL REASON] Abdominal pain - The onset of the pain has been sudden and has been occurring in an intermittent pattern for 2 weeks. The course has been recurrent. The pain is described as a moderate crampy. The pain is described as being located in the right lower quadrant and left lower quadrant. The pain does not radiate. Encounter Diagnosis: Fibromyalgia (729.1), Vertigo, UTI symptoms, Cystitis, chronic interstitial (595.1), Pelvic pain in female [facility] Office Visit On: 23-Jun-2013 9:40 Encounter Reason: Follow up for chronic medical issues - The patient feels well with minor complaints (think maybe woke up with yeast infection), has good energy level (up and down, methotrexate decreases energy) and is End: 23-Jun-2013 10:58 sleeping well (with ambien). Patient has been compliant with instructions. Current medication use: no side effects. Patient sleeps 6 hours per night. Impact of disease: emotional impact-mild. Nutrition: balanced diet and supplemental vitamins. The medical issues the patient is following up for include blood sugar issues, cardiac issues, depression (anxiety), fibromyalgia, high blood pressure and other (DDD, ovarian cyst, paresthesia, arthiritis, CTS, headache )., [ADDITIONAL REASON] Follow up tests - Date: (06/22/13 blood work). Encounter Diagnosis: Impaired fasting glucose (790.21), Depression (311.), WWV V73.21 (Renamed from WWV), Hypertension 401.1 (Renamed from Hypertension (401.0)), Fatigue (780.79), Anxiety (300.00), Degenerative Disc Disease (722.6), Ganglion cyst (727.43), arthritis,unspecified (716.90), Fibromyalgia (729.1), Cystitis, chronic interstitial (595.1), Obesity,unspecified (278.00), Hypokalemia, Yeast infection [facility] Office Visit On: 10-Feb-2013 9:45 Encounter Reason: Follow up for chronic medical issues - The patient feels well with minor complaints (tingling in arms and down into 4 and 5 fingers - bilaterally), has good energy level and is sleeping well. Patient glover End: 10-Feb-2013 10:20 s been compliant with instructions. Current medication use: no side effects. Patient sleeps 6 hours per night. Impact of disease: emotional impact-mild. Nutrition: balanced diet and supplemental vitamin s. The medical issues the patient is following up for include blood sugar issues, cardiac issues, depression (anxiety), fibromyalgia, high blood pressure and other (DDD, ovarian cyst, paresthesia, arthiritis, CTS, headache ).Encounter Diagnosis: Impaired fasting glucose (790.21), Fatigue (780.79), Knee pain (719.46), arthritis,unspecified (716.90), Anxiety (300.00), Hypertension 401.1 (Renamed from Hypertension (401.0)), Depression (311.), Fibromyalgia (729.1), WWV V73.21 (Renamed from WWV) , Obesity,unspecified (278.00), Degenerative Disc Disease (722.6), Cystitis, chronic interstitial (595.1), Ganglion cyst (727.43) [facility] Office Visit On: 11-Oct-2012 9:45 Encounter Reason: Follow up for chronic medical issues - The patient feels well with no complaints, has good energy level and is sleeping well. Patient has been compliant with instructions. Current medication use: experi End: 11-Oct-2012 10:21 encing side effects (twitches alot, not sure if related to medications or not) and compliant with dosing regimen. Patient sleeps 6 hours per night. Impact of disease: emotional impact-mild. Nutrition: b alanced diet and supplemental vitamins. The medical issues the patient is following up for include blood sugar issues, cardiac issues, depression (anxiety), fibromyalgia, high blood pressure and other ( DDD, ovarian cyst, paresthesia, arthiritis, CTS, headache ).Encounter Diagnosis: Anxiety (300.00), Hypertension 401.1 (Renamed from Hypertension (401.0)), Impaired fasting glucose (790.21), arthritis,unspecified (716.90), Fatigue (780.79), Knee pain (719.46), Depression (311.), Fibromyalgia (729.1), WWV V73.21 (Renamed from WWV), Degenerative Disc Disease (722.6), Cystitis, chronic interstitial (595.1), Obesity,unspecified (278.00), Epigastric pain (789.06) [facility] Office Visit On: 11-Jun-2012 9:59 Encounter Reason: Follow up for chronic medical issues - The patient does not feel well (Over did it this week), has decreased energy level and is sleeping well. Patient has been compliant with instructions. Current medi End: 11-Jun-2012 10:23 cation use: no side effects and compliant with dosing regimen. Patient sleeps 6 hours per night. Impact of disease: emotional impact-mild. Nutrition: balanced diet and supplemental vitamins. The medical issues the patient is following up for include blood sugar issues, cardiac issues, depression (anxiety), fibromyalgia, high blood pressure and other (DDD, ovarian cyst, paresthesia, arthiritis, CTS, headache ).Encounter Diagnosis: Impaired fasting glucose (790.21), Parasthesia (782.0), Abnormal blood chemistry (790.6), Ovarian Cyst, Unspecified (620.2), Carpel tunnel syndrome (354.0), Anxiety (300.00), Cystitis, chronic interstitial (595.1), Backache, unspecified (724.5), Hematuria (599.7), Headache (784.0), Degenerative Disc Disease (722.6), Knee pain (719.46), Fibromyalgia (729.1), Depression (311.), Hypertension 401.1 (Renamed from Hypertension (401.0)), arthritis,unspecified (716.90), Fatigue (780.79), WWV V73.21 (Renamed from WWV) [facility] Office Visit On: 12-Mar-2012 9:14 Encounter Reason: Follow up for chronic medical issues - The patient feels well with minor complaints, has decreased energy level and is sleeping well. Patient has been compliant with instructions. Current medication use End: 12-Mar-2012 9:46 : no side effects and compliant with dosing regimen. Patient sleeps 7 hours per night. Impact of disease: emotional impact-mild. Nutrition: balanced diet and supplemental vitamins. The medical issues th e patient is following up for include blood sugar issues, cardiac issues, depression (anxiety), fibromyalgia, high blood pressure and other (DDD, ovarian cyst, paresthesia, arthiritis, CTS, headache ).Encounter Diagnosis: Cystitis, chronic interstitial (595.1), Anxiety (300.00), Impaired fasting glucose (790.21), Hematuria (599.7), Backache, unspecified (724.5), Abnormal blood chemistry (790.6), Parasthesia (782.0), Carpel tunnel syndrome (354.0), Calf pain (729.5), Ovarian Cyst, Unspecified (620.2), Headache (784.0), arthritis,unspecified (716.90), Hypertension 401.1 (Renamed from Hypertension (401.0)), Degenerative Disc Disease (722.6), WWV V73.21 (Renamed from WWV), Depression (311.), Unspecified visual disturbance (368.9), Neck pain (723.1), Fibromyalgia (729.1), Fatigue (780.79), Knee pain (719.46), Epigastric pain (789.06) [facility] Office Visit On: 25-Nov-2011 11:12 Encounter Reason: Follow up acute care visit - The patient improving. Patient has been compliant with instructions. Current medication use: no side effects. Patient sleeps 7 hours per night. The medical issues the patien End: 25-Nov-2011 12:12 t is following up for include other (DDD and cystitis).Encounter Diagnosis: Degenerative Disc Disease (722.6), Fibromyalgia (729.1), Depression (311.), Hypertension 401.1 (Renamed from Hypertension (401.0)), WWV V73.21 (Renamed from WWV) [facility] Office Visit On: 21-Oct-2011 11:08 Encounter Diagnosis: Degenerative Disc Disease (722.6), Cystitis, chronic interstitial (595.1), Depression (311.) End: 21-Oct-2011 12:17 [facility] Annotation/Addendum On: 23-Sep-2011 11:03 Encounter Diagnosis: Hematuria (599.7) End: 23-Sep-2011 11:04 [facility] Office Visit On: 23-Sep-2011 10:16 Encounter Diagnosis: Fibromyalgia (729.1), Degenerative Disc Disease (722.6), Depression (311.) End: 23-Sep-2011 10:53 [facility] Office Visit On: 12-Aug-2011 11:46 Encounter Reason: Follow up acute care visit - The patient does not feel well (today is a bad day, I did a lot yesterday so now I am paying for it). The medical issues the patient is following up for include other (weani End: 12-Aug-2011 12:56 ng off meds slowly and sees Basali).Encounter Diagnosis: Fibromyalgia (729.1), Degenerative Disc Disease (722.6), Depression (311.) [facility] Office Visit On: 27-Jun-2011 14:14 Encounter Reason: Follow up tests - Diagnostic tests include other (labs ). Date: (05-26-11).Encounter Diagnosis: Fibromyalgia (729.1), Degenerative Disc Disease (722.6), Impaired fasting glucose (790.21) End: 29-Jun-2011 21:03 [facility] Phone Encounter On: 12-May-2011 16:41 [facility] End: 12-May-2011 16:42 Annotation/Addendum On: 09-May-2011 15:06 Encounter Diagnosis: Backache, unspecified (724.5) End: 09-May-2011 15:09 [facility] Office Visit On: 29-Apr-2011 11:15 Encounter Reason: Well Women Exam - The patient feels well with minor complaints and has decreased energy level. Pap smear: date of last pap: (atleast 10 years ago ). Contraceptive history: The patient is not using any m End: 29-Apr-2011 12:06 ethod of contraception at this time. Patient does not exercise. The patient's libido is decreased. The patient reports that she does not perform monthly breast self exam. Calcium intake includes 2 servi ng(s) milk daily. Menstruation: Last menstrual period date: (04-07-11).Encounter Diagnosis: WWV V73.21 (Renamed from [facility]) [facility] Office Visit On: 25-Apr-2011 13:30 Encounter Reason: Follow up for chronic medical issues - The patient feels well with minor complaints (hurting everywhere and still having UTI sx), has decreased energy level and is sleeping poorly (even on the ambien ). End: 25-Apr-2011 14:28 Patient has been compliant with instructions. Current medication use: compliant with dosing regimen. Patient sleeps 6 (interrupted) hours per night. Impact of disease: emotional impact-moderate. Nutrit ion: balanced diet and supplemental vitamins. The medical issues the patient is following up for include cardiac issues, depression, fibromyalgia, high blood pressure and other (DDD, CTS ).Encounter Diagnosis: Fibromyalgia (729.1), Hypertension 401.1 (Renamed from Hypertension (401.0)), arthritis,unspecified (716.90), Anxiety (300.00), Depression (311.), Fatigue (780.79), WWV V73.21 (Renamed from [facility]) [facility] Annotation/Addendum On: 02-Oct-2010 14:02 Encounter Diagnosis: Vaginal discharge (623.5) End: 02-Oct-2010 14:03 [facility] Office Visit On: 26-Aug-2010 14:54 Encounter Reason: Preoperative evaluation - The patient feels well with minor complaints, has good energy level and is sleeping well. Surgical procedures include: other (Left Unicompartmental knee replacement). Date of p End: 26-Aug-2010 15:28 rocedure: (not scheduled yet Dr. Franco ) . There have been no problems with general anesthesia or blood/blood products. Prosthetics include: contact lens.Encounter Diagnosis: Pre-operative examination, unspecified (V72.84), Hypertension 401.1 (Renamed from Hypertension (401.0)), Fibromyalgia (729.1), Epigastric pain (789.06) [facility] Office Visit On: 27-Jun-2010 8:49 Encounter Reason: UTI - The urinary symptoms are described as painful urination, frequency and burning. The symptoms have been occurring for 1 week and have been recurrent. The symptoms have been associated with abdominal pain and vulvar irritation. End: 27-Jun-2010 9:03 Encounter Diagnosis: Dysuria (788.1) [facility] Phone Encounter On: 19-Jun-2010 9:52 Encounter Diagnosis: Fibromyalgia (729.1) End: 19-Jun-2010 9:56 [facility] Office Visit On: 13-Jun-2010 11:47 Encounter Diagnosis: Nausea and vomiting (787.01), Diarrhea (787.91), Epigastric pain (789.06), Abnormal blood chemistry (790.6), Fibromyalgia (729.1) End: 13-Jun-2010 12:28 [facility] Annotation/Addendum On: 27-May-2010 18:34 Encounter Diagnosis: Nausea and vomiting (787.01) End: 27-May-2010 18:43 [facility] Office Visit On: 24-May-2010 12:17 Encounter Reason: Flu like symptoms - The onset of the flu like symptoms has been sudden and they have been occurring in a persistent pattern for 13 days. The course has been constant. The flu like symptoms are described End: 26-May-2010 21:44 as moderate. Note for Flu like symptoms: Viral intestional flu symptoms of nausea, vomiting, diarrhea and no appetite. No fever or body ache and no uri symptoms. - no headache or fever- has daily epi gastric -no more vomiting but sick to stomach- still taking ketoporofen she will wean off - no diarrhea daily- still has gallbladder- no blood in stool - not eating well Encounter Diagnosis: Epigastric pain (789.06), Nausea and vomiting (787.01), Diarrhea (787.91) [facility] Office Visit On: 06-May-2010 13:19 Encounter Reason: Follow up, Laboratory Test Results - Lab results: abnormal blood chemistry. Date: (04-11-10). Current symptoms/reason for visit include/s Follow up visit with no current symptoms.Encounter Diagnosis: Calf pain (729.5), End: 06-May-2010 13:42 Hypertension 401.1 (Renamed from Hypertension (401.0)) [facility] Office Visit On: 25-Apr-2010 13:16 Encounter Reason: Leg pain - The leg pain began suddenly and has been occurring for months. The symptoms have been occurring in an increasing pattern. The symptoms are described as a dull ache, ache and pain and are mod End: 25-Apr-2010 13:34 erate to severe. The symptoms occur at rest and on exertion. There is involvement of the left lower extremity (and upper and swelling in it and she does have arthritis). There are no precipitating facto rs. There are no aggravating factors. There are no relieving factors. The symptoms have been associated with dizziness and calf swelling (left side). There have been no previous evaluations. Note for L eg pain: I called arthritis doc and he said that it sounds like I have a blood clot. It is a burning stabbing pain ad feels like a charley horse or a tunicate around my left lower legEncounter Diagnosis: Calf pain (729.5) [facility] Office Visit On: 03-Apr-2010 9:47 Encounter Reason: Follow up for chronic medical issues - The patient feels well with minor complaints (hurting everywhere and still having UTI sx), has decreased energy level and is sleeping poorly (even on the ambien ). End: 03-Apr-2010 10:29 Patient has been compliant with instructions. Current medication use: compliant with dosing regimen. Patient sleeps 6 (interrupted) hours per night. Impact of disease: emotional impact-moderate. Nutrit ion: balanced diet and supplemental vitamins. The medical issues the patient is following up for include cardiac issues, depression, fibromyalgia, high blood pressure and other (DDD, CTS ).Encounter Diagnosis: Dysuria (788.1), Hypertension 401.1 (Renamed from Hypertension (401.0)), Headache (784.0), Fibromyalgia (729.1), Depression (311.), Backache, unspecified (724.5), Anxiety (300.00), arthritis,unspecified (716.90), Unspecified visual disturbance (368.9) [facility] Office Visit On: 15-Mar-2010 11:00 Encounter Reason: UTI - The urinary symptoms are described as painful urination and frequency. The symptoms have been occurring for days and have been increasing. The urine is described as bloody. The symptoms have been End: 15-Mar-2010 11:51 associated with abdominal pain, while the symptoms have not been associated with nausea or low back pain. There is no medical history of current , vaginitis or kidney stones. The patient denie s the use of oral contraceptives, antibiotics, hormone replacement therapy or pyridium/uristat.Encounter Diagnosis: Dysuria (788.1), Hematuria (599.7) [facility] Office Visit On: 29-Jan-2010 14:07 Encounter Reason: Mouth ulcers - The onset of the mouth ulcers has been sudden and has been occurring in a persistent pattern for 3 days. The course has been unchanged. The mouth ulcers are observed in the lips ,the tong End: 29-Jan-2010 14:31 ue and the throat. The mouth ulcers are described as painful. The symptoms have been associated with sore throat, while the symptoms have not been associated with headache or lethargy. Encounter Diagnosis: CANDIDIASIS, MOUTH (THRUSH) (112.0) [facility] Office Visit On: 23-May-2009 10:31 Encounter Reason: Follow up acute care visit - The patient feels the same. Patient has been compliant with instructions. Current medication use: no side effects and compliant with dosing regimen. Patient sleeps 7 hours p End: 23-May-2009 11:04 er night. Impact of disease: emotional impact-moderate. Nutrition: balanced diet. The medical issues the patient is following up for include depression and other (numbness and tingling). Encounter Diagnosis: Parasthesia (782.0), Neck pain (723.1), Depression (311.), Fatigue (780.79) [facility] Office Visit On: 24-Apr-2009 9:25 Encounter Reason: Follow up for chronic medical issues - The patient does not feel well ,has decreased energy level and is sleeping poorly (even on the ambien ). Patient has been compliant with instructions. Current medi End: 24-Apr-2009 10:06 cation use: compliant with dosing regimen. Patient sleeps 6 hours per night. Impact of disease: emotional impact-moderate. Nutrition: balanced diet and supplemental vitamins. The medical issues the sergio ent is following up for include cardiac issues ,depression ,fibromyalgia ,high blood pressure and other (DDD, CTS ). Encounter Diagnosis: Fibromyalgia (729.1), Depression (311.), Parasthesia (782.0), Hypertension 401.1 (Renamed from Hypertension (401.0)) [facility] Office Visit On: 22-Feb-2009 13:54 Encounter Reason: UTI - The urinary symptoms are described as painful urination and frequency. The symptoms have been occurring for 4 days and have been increasing. The symptoms have been associated with low back pain. Encounter Diagnosis: End: 22-Feb-2009 14:18 Dysuria (788.1) [facility] Office Visit On: 14-Apr-2008 9:56 Encounter Reason: Follow up for chronic medical issues - The patient feels well with minor complaints ,has good energy level and is sleeping well. Patient has been compliant with instructions. Current medication use: no End: 14-Apr-2008 10:26 side effects ,compliant with dosing regimen and considered effective by patient. Patient sleeps 7 hours per night. Impact of disease: emotional impact-mild. Nutrition: balanced diet. The medical issues the patient is following up for include depression (anxiety ) ,fibromyalgia ,high blood pressure and other (obesity, CTS ). Encounter Diagnosis: Anxiety (300.00), Hypertension 401.1 (Renamed from Hypertension (401.0)), Fibromyalgia (729.1), Fatigue (780.79), Carpel tunnel syndrome (354.0), arthritis,unspecified (716.90), Depression (311.), Knee pain (719.46), Ovarian Cyst, Unspecified (620.2), Unspecified visual disturbance (368.9), Headache (784.0), Backache, unspecified (724.5), [facility] Office Visit On: 23-Nov-2006 14:43 Encounter Reason: Follow up for chronic medical issues - The patient feels well with minor complaints ,has decreased energy level and is sleeping poorly. Patient has been compliant with instructions. Current medication u End: 23-Nov-2006 15:23 se: no side effects ,compliant with dosing regimen and considered effective by patient. Patient sleeps 8 hours per night. Impact of disease: emotional impact-mild. Nutrition: balanced diet. The medical issues the patient is following up for include depression ,fibromyalgia ,high blood pressure and osteoarthritis. 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0), Knee pain (719.46), Ovarian Cyst, Unspecified (620.2) [facility] Historical Summary On: 11-Aug-2006 7:31 [facility] End: 11-Aug-2006 7:35 Office Visit On: 10-Aug-2006 13:46 Encounter Reason: new patient female physical - Last seen more than 1 year ago. General health: feels well with minor complaints ,has decreased energy level and is sleeping poorly. The patient's appetite is normal. Nutri End: 10-Aug-2006 20:58 tion: normal/adequate. Exercises 0 days per week. Sleeps on average 8 hours per night. Elimination problems include constipation and diarrhea. Current emotional problems include anxiety ,depression and nervousness. screening, Pap smear (2005). Encounter Diagnosis: Depression (311.), Anxiety (300.00), Hypertension (401.0), Fibromyalgia (729.1), Fatigue (780.79) [facility] Payers Maddie kaur guarantor
--- OUTSIDE RECORDS SUMMARY | 2018-05-29 00:58 | XMS RPT_ITS | Continuity of Care Document ---
:1960 Author Organization [facility] Address [address] [place] [address] Phone Care Team Providers Name Role Phone [...] (M06.9, 714.0) Comments: seen lior then now roeny. MRI stillshow and think this. and side [...] going to see spine surgeon/functional medicine at [facility] Dr Martínez 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 Deliveries (Parity) Comments: [...] ca se this would be the cause. [facility] 2-18 ? aspiration ? imipramine 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 [...] MD, Dana M Start : 03-Nov-2017 Active Comments:[id number] called to Dannielle -er AmLODIPine Besylate 5 [...] End : 14-Jul-2017 Inactive Comments: d/c per [facility] had fatgiue and GI upset CIPRO, 500MG [...] Quantity: 30 {Tablet} Refills: 0 Ordered:15-Mar-2015 JACKIE Bruon Start : 27-Feb-2015 End : 15-Mar-2015 Inactive Comments:Medication taken as needed. Imipramine HCl 25 MG Oral Tablet 1 (one) Tablet qhs for 0 days Quantity: 90 {Tablet} Refills: 3 Ordered:14-Jul-2017 Shasha Barker MD, MD, Dana M Start : 14-Jul-2017 End : 14-Jul-2017 Inactive Comments: d/c per [facility] LEUCOVORIN CALCIUM, 15MG (Oral Tablet) 1 (one) [...] Start : 29-Jan-2010 End : 08-Feb-2010 Inactive [place] 7.5-325 MG Oral Tablet 1 (one) Tablet two times daily for 0 days Quantity: 60 {Tablet} Refills: 0 Ordered:26-Jan-2017 JACKIE Bruno Start : 26-Jan-2017 End : 26-Jan-2017 Inactive [place] 7.5-325 MG Oral Tablet tid prn (7.5-325 [...] days Quantity: 90 {Capsule} Refills: 0 Ordered:06-Apr-2015 Chuiyta ROSSOphelia Start : 27-Feb-2015 End : 29-Mar-2015 [...] Quantity: 360 {Tablet} Refills: 0 Ordered:05-Mar-2015 Slarb [employer], Ambreen Start : 07-Sep-2014 End : 02-Sep-2015 [...] Quantity: 30 {Tablet} Refills: 3 Ordered:27-Feb-2015 Slarb [employer], Ambreen Start : 07-Sep-2014 End : 27-Feb-2015 Discontinued LODINE XL, 400MG (Oral Tablet Extended Release 24 Hour) 1 two times daily for 0 days Refills: 0 Ordered:03-Apr-2010 Long STRATEGIC BUSINESS DEVELOPMENTRiana End : 03-Apr-2010 Discontinued Comments:This order discontinued [...] and prednisone seeing Dr. Deangelo vallecillo in [place] next week. 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 adenomyosis. ? 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 STUDY: MRI [...] CC: CARLOS SHELBY M.D.; Shasha Barker MD Non Food Receiving Clerk: Signed 28-Jan-2018 Chest without Contrast Result: Comments: See Note; NOTES: [facility] Imaging Services [address] [place] [address] Chest without Contrast MR#: [id number] Acct: [id number] Name: TIN BLACKWOOD Rep #: [id number] : 1960 F 57 From: Vazquez Kaye MD PCP: Shasha Barker MD Status: REG CLI Study: Chest without Contrast Date of Exam: 01/28/18 Exam# [id number] Ordering Dr: Pelon Chatterjee MD STUDY: CT [...] CC: Shasha Barker MD; Pelon Chatterjee MD Non Food Receiving Clerk: Signed 20-Jan-2018 Emergency Department Summary Result: Comments: See Note; NOTES: [facility] Medical Records Department [address] [place] [address] Emergency Department Summary 01/19/18 1534 MR#: [id number] Acct: [id number] Name: TIN BLACKWOOD Rep #: [id number] : 1960 57 From: Rolando Mc MD [...] Lumbar radiculopathy This note was generated with [employer] dictation software. It may contain incorrect words, [...] your Primary Care Provider. Call [facility] ([phone]) or report t o the closest Emergency Room. Call 911 if necessary. 01/20/18 0235 <Electronically signed by Rolando Mc MD> Date Rolando Mc MD Cosigner Signature (If Indicated): Date CC: Shasha Barker MD 19-Jan-2018 Spine Lumbar (Routine) Result: Comments: See Note; NOTES: [facility] Imaging Services [address] [facility] [place] [address] Spine Lumbar (Routine) MR#: [id number] Acct: [id number] Name: TIN BLACKWOOD Rep #: [id number] : 1960 F 57 From: Nabeel Bernabe MD PCP: Shasha Barker MD Status: REG ER Study: Spine Lumbar (Routine) Date of Exam: 01/19/18 Exam# [id number] Ordering Dr: Rolando Mc MD STUDY: MRI [...] , CC: Shasha Barker MD; Rolando Mc Non Food Receiving Clerk: Signed 19-Jan-2018 Spine Lumbar (Routine) Result: Comments: See Note; NOTES: [facility] Imaging Services [address] [place] [address] Spine Lumbar (Routine) MR#: [id number] Acct: [id number] Name: TIN BLACKWOOD Rep #: [id number] : 1960 F 57 From: Nabeel Bernabe MD PCP: Shasha Barker MD Status: REG Study: Spine Lumbar (Routine) Date of Exam: 01/19/18 Exam# [id number] Ordering Dr: Rolando Mc MD STUDY: MRI [...] , CC: Shasha Barker MD; Rolando Mc Non Food Receiving Clerk: Signed 10-Dec-2017 Lower Ext/No Jt/w/o Result: Comments: See Note; NOTES: [facility] Imaging Services [address] [place] [address] Lower Ext/No Jt/w/o MR#: [id number] Acct: [id number] Name: TIN BLACKWOOD Rep #: [id number] : 1960 F 56 From: Julio Cannon MD PCP: Shasha Barker MD Status: REG CLI Study: Lower Ext/No Jt/w/o Date of Exam: 12/10/17 Exam# [id number] Ordering Dr: Nabeel Danielle DPM STUDY: MRI [...] CC: Shasha Barker MD; Nabeel Danielle DPM Non Food Receiving Clerk: Signed 18-Nov-2017 Thyroid Uptake Single or Mult Result: Comments: See Note; NOTES: [facility] Imaging Services [address] [place] [address] Thyroid Uptake Single or Mult MR#: [id number] Acct: [id number] Name: TIN BLACKWOOD Rep #: [id number] : 1960 F 56 From: Asif Pagan DO PCP: Shasha Barker MD Status: REG CLI Study: Thyroid Uptake Single or Mult Date of Exam: 11/18/17 Exam# [id number] Ordering Dr: Shasha Barker MD C LINICAL: [...] to the presence of visualized th yroid eexavay-H-kvmuzp thyroid gland. 3. No hypofunctioning, cold nodules are identified. Electronically Signed: Asif Pagan DO at 22:10 EDT Tel , Service support [phone], CC: Shasha Barker MD Non Food Receiving Clerk: Signed 16-Nov-2017 Spine Cervical (Routine) Result: Comments: See Note; NOTES: [facility] Imaging Services [address] [place] [address] Spine Cervical (Routine) MR#: [id number] Acct: [id number] Name: TIN BLACKWOOD Rep #: [id number] : 1960 F 56 From: Andrew Duran DO PCP: Shasha Barker MD Status: REG CLI Study: Spine Cervical (Routine) Date of Exam: 11/16/17 Exam# [id number] Ordering Dr: More Taylor MD STUDY: MRI [...] CC: More Taylor MD; Shasha Barker MD Non Food Receiving Clerk: Signed 03-Nov-2017 Pelvis 1 or 2 Views Result: Comments: See Note; NOTES: [facility] Imaging Services [address] [place] [address] Pelvis 1 or 2 Views MR#: [id number] Acct: [id number] Name: TIN BLACKWOOD Fabby Rep #: [id number] : 1960 F 56 From: Vale Godoy MD PCP: Shasha Barker MD Status: REG CLI Study: Pelvis 1 or 2 Views Date of Exam: 11/03/17 Exam# [id number] Ordering Dr: Shasha Barker MD STUDY: X-RAY [...] at 17:01 EDT Tel , Service support [phone], CC: Shasha Barker MD Non Food Receiving Clerk: Signed 27-Aug-2017 Orb Sella Post Fossa Ear w/o Result: Comments: See Note; NOTES: [facility] Imaging Services [address] [place] [address] Orb Sella Post Fossa Ear w/o MR#: [id number] Acct: [id number] Name: TIN BLACKWOOD Rep #: [id number] : 1960 F 56 From: Nir Dudley MD PCP: Shasha Barker MD Status: REG CLI Study: Orb Sella Post Fossa Ear w/o Date of Exam: 08/27/17 Exam# [id number] Ordering Dr: Dale Zuniga STUDY: CT TEMPORAL [...] CC: Beni Zuniga MD; Shasha Barker MD Non Food Receiving Clerk: Signed 25-May-2017 Chest PA and Lateral Result: Comments: See Note; NOTES: [facility] Imaging Services [address] [place] [address] Chest PA and Lateral MR#: [id number] Acct: [id number] Name: TIN BLACKWOOD Rep #: [id number] : 1960 F 56 From: Aguilar Joaquin MD PCP: Shasha Barker MD Status: REG RCR Study: Chest PA and Lateral Date of Exam: 05/25/17 Exam# [id number] Ordering Dr: Pelon Chatterjee MD STUDY: X-RAY [...] Aguilar Joaquin MD at 19:35 EST Tel [phone], Service support , CC: Shasha Barker MD; Pelon Chatterjee MD Non Food Receiving Clerk: Signed 15-May-2017 Chest PA and Lateral Result: Comments: See Note; NOTES: [facility] Imaging Services [address] [place] [address] Chest PA and Lateral MR#: [id number] Acct: [id number] Name: TIN BLACKWOOD Rep #: [id number] : 1960 F 56 From: Patrice Pinto MD PCP: Shasha Barker MD Status: REG CLI Study: Chest PA and Lateral Date of Exam: 05/15/17 Exam# [id number] Ordering Dr: Shasha Barker MD STUDY: X-RAY [...] Service support , CC: Shasha Barker MD Non Food Receiving Clerk: Signed 21-Jan-2017 Emergency Department Summary Result: Comments: See Note; NOTES: [facility] Medical Records Department [address] [place] [address] Emergency Department Summary 01/20/17 2344 MR#: [id number] Acct: [id number] Name: TIN BLACKWOOD Rep #: [id number] : 1960 56 From: Christian Hemphill PCP: Shasha Barker MD Status: REG ER - ER Visit [...] for ED Patient: Disposition: Acute Care Hospital [facility] Chief Complaint: Shortness of Breath Diagnosis: Pulmonary fibro sis, Hypoxemia, Elevated troponin, Pulmonary nodule, right Referrals: Shasha Barker MD [Primary Care Provider] - What to do if you have Problems For any increased pain, shortness of breath, bleedin g, nausea or vomiting, chest pain, or any unexpected problems, contact your Primary Care Provider. Call [facility] ([phone]) or report to the closest Emergency Room. Call 911 if necessary. 01/21/17 0231 <Electronically signed by Christian Hemphill> Date Christian Hemphill Cosigner Signature (If Indicated): Date CC: Shasha Barker MD 21-Jan-2017 CTA Chest W/WO Contrast Result: Comments: See Note; NOTES: [facility] Imaging Services [address] [place] [address] CTA Chest W/WO Contrast MR#: [id number] Acct: [id number] Name: TIN BLACKWOOD Rep #: [id number] : 1960 F 56 From: Stepan Mayberry MD PCP: Shasha Barker MD Status: REG ER Study: CTA Chest W/WO Contrast Date of Exam: 01/21/17 Exam# [id number] Ordering Dr: Christian Schrader DO STUDY: CTA [...] , CC: Shasha Barker MD; Christian Schrader Non Food Receiving Clerk: Signed 20-Jan-2017 Chest PA and Lateral Result: Comments: See Note; NOTES: [facility] Imaging Services [address] [place] [address] Chest PA and Lateral MR#: [id number] Acct: [id number] Name: TIN BLACKWOOD Rep #: [id number] : 1960 F 56 From: Stepan Mayberry MD PCP: Shasha Barker MD Status: REG ER Study: Chest PA and Lateral Date of Exam: 01/20/17 Exam# [id number] Ordering Dr: Christian Schrader DO STUDY: X-RAY [...] , CC: Shasha Barker MD; Christian Schrader Non Food Receiving Clerk: Signed 21-Nov-2016 PT D/C Summary (1) Result: Comments: See Note; NOTES: [facility] Physical Therapy [facility] [address] [place] [address]. [address] [place] [address] Fax REHABILITATION SERVICES [facility] SUMMARY MR#: [id number] Acct: [id number] Name: TIN BLACKWOOD Rep #: [id number] : 1960 55 From: Yury Lawrence PT, Cert. MDT, OCS Referring DrPeter: Shasha Barker MD Status: REG R Insurance: A [facility] - PT D/C Summary It has been [...] please feel free to call me at [phone]. Thank you for the referral of this patient. Sincerely, Yury Lawrence PT, <Electronically signed by Yury Lawrence PT, Cert. MDT, OCS> 11/21/16 1533 CC: Shasha Barker MD MARIN Signed 22-Oct-2016 Inital Evaluation (1) - PT Result: Comments: See Note; NOTES: [facility] Physical Therapy [facility] [address] [place], [place] [address] Fax REHABILITATION SERVICES INITIAL EVALUATION MR#: [id number] Acct: [id number] Name: TIN BLACKWOOD Rep #: [id number] : 1960 55 From: Yury Lawrence PT, Cert. MDT, OCS Referring Dr.: Shasha Barker MD Status: REG R Insurance: [employer] Patient's Visit Information TIN BLACKWOOD is a [...] to be FAXED BACK to us at [phone] for Medicare purposes. Please let me know [...] and Lateral Result: Comments: See Note; NOTES: [facility] Imaging Services [address] [place] [address] Verdana 4d Chest PA and Lateral MR#: [id number] Acct: [id number] Name: TIN BLACKWOOD Rep #: [id number] : 1960 F 55 From: Hair Rogers MD PCP: Shasha Barker MD Status: REG CLI Study: Chest PA and Lateral Date of Exam: 09/11/16 Exam# [id number] Ordering Dr: Pelon Chatterjee MD STUDY: X-RAY [...] CC: Shasha Barker MD; Pelon Chatterjee MD Non Food Receiving Clerk: Signed 18-Aug-2016 Foot min 3 Views Result: Comments: See Note; NOTES: [facility] Imaging Services [address] [place] [address] Verdana 4d Foot min 3 Views MR#: [id number] Acct: [id number] Name: TIN BLACKWOOD Rep #: [id number] : 1960 F 55 From: Smith Delaney MD PCP: Shasha Barker MD Status: REG CLI Study: Foot min 3 Views Date of Exam: 08/18/16 Exam# [id number] Ordering Dr: Shasha Barker MD STUDY: X-RAY - [facility] FOOT CLINICAL: Female, 55 years [...] Service support , CC: Shasha Barker MD Non Food Receiving Clerk: Signed 05-Aug-2016 Chest 1 View (Portable) Result: Comments: See Note; NOTES: [facility] Imaging Services [address] [place] [address] Verdana 4d Chest 1 View (Portable) MR#: [id number] Acct: [id number] Name: TIN BLACKWOOD Rep #: [id number] : 1960 F 55 From: Aguilar Joaquin MD PCP: Shasha Barker MD Status: REG ER Study: Chest 1 View (Portable) Date of Exam: 08/05/16 Exam# [id number] Ordering Dr: Regino Hinson MD STUDY: X-RAY [...] Radiographic follow-up is recommended. Electronically Signed: Aguilar Joaquin MD at 9:42 EDT Tel [phone], Service support [phone], CC: Shasha Barker MD; Regino Hinson MD Non Food Receiving Clerk: Signed 01-Jul-2016 Chest WITH Contrast Result: Comments: See Note; NOTES: [facility] Imaging Services [address] [place] [address] Meyna 4d Chest WITH Contrast MR#: [id number] Acct: [id number] Name: TIN BLACKWOOD Rep #: [id number] : 1960 F 55 From: Keyshawn Unger DO PCP: Shasha Barker MD Status: REG CLI Study: Chest WITH Contrast Date of Exam: 07/01/16 Exam# [id number] Ordering Dr: Shasha Barker MD STUDY: CT [...] Service support , CC: Shasha Barker MD Non Food Receiving Clerk: Signed 17-Jun-2016 Spine Cervical (Routine) Result: Comments: See Note; NOTES: [facility] Imaging Services [address] [place] [address] Verdana 4d Spine Cervical (Routine) MR#: [id number] Acct: [id number] Name: TIN BLACKWOOD p #: [id number] : 1960 F 55 From: Kadie Dailey MD PCP: Shasha Barker MD Status: REG CLI Study: Spine Cervical (Routine) Date of Exam: 06/17/16 Exam# [id number] Ordering Dr: More Taylor MD STUD Y: [...] MD at 11:29 EST , Service support [phone], CC: More Taylor MD; Shasha Barker MD Non Food Receiving Clerk: Signed 17-Jun-2016 Spine Thoracic (Routine) Result: Comments: See Note; NOTES: [facility] Imaging Services [address] [place] [address] Verdana 4d Spine Thoracic (Routine) MR#: [id number] Acct: [id number] Name: TIN BLACKWOOD Barbara p #: [id number] : 1960 F 55 From: Kadie Dailey MD PCP: Shasha Barker MD Status: REG CLI Study: Spine Thoracic (Routine) Date of Exam: 06/17/16 Exam# [id number] Ordering Dr: More Taylor MD STUD Y: [...] MD at 11:55 EST , Service support [phone], CC: Ira Taylor MD; Shasha Barker MD Non Food Receiving Clerk: Signed 29-May-2016 Dexa Bone Density Study (HP) Result: Comments: See Note; NOTES: [facility] Imaging Services [address] [place] [address] Verdana 4d Dexa Bone Density Study () MR#: [id number] Acct: [id number] Name: ELISSA BLACKWOOD Rep #: [id number] : 1960 F 55 From: Aguilar Joaquin MD PCP: Shasha Barker MD Status: REG CLI Study: Dexa Bone Density Study () Date of Exam: 05/29/16 Exam# [id number] Ordering Dr: Shasha Barker MD STUDY: DUAL [...] Aguilar Joaquin MD at 13:27 EST Tel [phone], Service support [phone], CC: Shasha Barker MD Non Food Receiving Clerk: Signed 29-May-2016 SCREENING MAMM (CAD), BILAT Result: Comments: See Note; NOTES: [facility] Imaging Services [address] [place] [address] Verdana 4d SCREENING MAMM (CAD), BILAT MR#: [id number] Acct: [id number] Name: TIN BLACKWOOD Rep #: [id number] : 1960 F 55 From: Aguilar Joaquin MD PCP: Shasha Barker MD Status: REG CLI Study: SCREENING MAMM (CAD), BILAT Date of Exam: 05/29/16 Exam# [id number] Ordering Dr: Yoana Barker MD MAMMOGRAPHY - [...] delay biopsy of a clinically suspicious abnormality. [id number] Electronically Signed: Aguilar Joaquin MD at 15:18 EST Tel [phone], Service support [phone], CC: Shasha Barker MD Non Food Receiving Clerk: Signed 29-Nov-2015 NCS and/or EMG Patient Result: Comments: See Note; NOTES: [facility] Pulmonary Services/Neurology [address] [place] [address] NCS and/or EMG Patient MR#: [id number] Acct: [id number] Name: TIN BLACKWOOD Rep #: [id number] : 1960 54 From: Lucas Kiser MD [...] radiculopathy. Lucas hand MD T: [facility] JOB: [id number] 11/29/15 0959 <Electronically signed by Lucas Kiser MD> Date Lucas Kiser MD CC: More Taylor MD; Shasha Barker MD; Lcuas Kiser MD Date Dictated: 11/27/15 1145 Date Transcribed: 11/27/15 114 Non Food Receiving Clerk: Signed 12-Oct-2015 Spine Lumbar (Routine) Result: Comments: See Note; NOTES: [facility] Imaging Services [address] [place] [address] Verdana 4d Spine Lumbar (Routine) MR#: [id number] Acct: [id number] Name: TIN BLACKWOOD Rep #: [id number] : 1960 F 54 From: Nabeel Bernabe MD PCP: Shasha Barker MD Status: REG CLI Study: Spine Lumbar (Routine) Date of Exam: 10/12/15 Exam# [id number] Ordering Dr: More Taylor MD STUDY: MRI [...] Other findings as above Electr onically Signed: Nabeel Bernabe MD at 20:50 EDT , Service support [phone], CC: More Taylor MD; Shasha Barker MD Non Food Receiving Clerk: Signed 12-Oct-2015 Lumbar Spine 2 or 3 Views Result: Comments: See Note; NOTES: [facility] Imaging Services [address] [place] [address] Verdana 4d Lumbar Spine 2 or 3 Views MR#: [id number] Acct: [id number] Name: TIN LLOYD Rep #: [id number] : 1960 F 54 From: Smith Delaney MD PCP: Shasha Barker MD Status: REG CLI Study: Lumbar Spine 2 or 3 Views Date of Exam: 10/12/15 Exam# [id number] Ordering Dr: More Watts MD STUDY: X-RAY [...] FACR at 8:27 EDT , Service support [phone], CC: More Taylor MD; Shasha Barker MD Non Food Receiving Clerk: Signed 12-Oct-2015 Thoracic Spine 3 Views Result: Comments: See Note; NOTES: [facility] Imaging Services [address] [place] [address] Verdana 4d Thoracic Spine 3 Views MR#: [id number] Acct: [id number] Name: TIN BLACKWOOD Rep #: [id number] : 1960 F 54 From: Smith Delaney MD PCP: Shasha Barker MD Status: REG CLI Study: Thoracic Spine 3 Views Date of Exam: 10/12/15 Exam# [id number] Ordering Dr: More Taylor MD STUDY: X-RAY [...] FACR at 8:26 EDT , Service support [phone], [phone] RAD/Thoracic Spine 3 Views IMPRESSION : Thoracic spondylosis with multilevel degenerative disc disease Electronically Signed: Smith Delaney MD, FACR at 8:26 EDT , Service support [phone], Fax CC: More Taylor MD; Shasha Barker MD Non Food Receiving Clerk: Signed 03-Oct-2015 Chest PA and Lateral Result: Comments: See Note; NOTES: [facility] Imaging Services [address] [place] [address] Verdana 4d Chest PA and Lateral MR#: [id number] Acct: [id number] Name: Hero BLACKWOOD Rep #: [id number] : 1960 F 54 From: Aguilar Joaquin MD PCP: Shasha Barker MD Status: REG CLI Study: Chest PA and Lateral Date of Exam: 10/03/15 Exam# [id number] Ordering Dr: Hortensia Mcnamara i, MD STUDY: [...] Aguilar Joaquin MD at 12:56 EDT Tel [phone], Service support [phone], RAD/Chest PA and Lateral IMPRESSION: Minimal degree of res idual increased markings at the lung bases as compared to prior study. Electronically Signed: Aguilar Joaquin MD at 12:56 EDT Tel [phone], Service support [phone], Fax CC: Shasha Barker MD; Hortensia Tinajero MD Non Food Receiving Clerk: Signed 05-Sep-2015 Kidney and Bladder Result: Comments: See Note; NOTES: [facility] Imaging Services [address] [place] [address] Verdana 4d Kidney and Bladder MR#: [id number] Acct: [id number] Name: KARINA BLACKWOOD ISMALISSA Rep #: [id number] : 1960 F 54 From: Aguilar Joaquin MD PCP: Shasha Barker MD Status: REG CLI Study: Kidney and Bladder Date of Exam: 09/05/15 Exam# [id number] Ordering Dr: Sacha Barker MD STUDY: RENAL [...] Aguilar Joaquin MD at 10:56 EDT Tel [phone], Service support [phone], CC: Shasha Barker MD Non Food Receiving Clerk: Signed 22-Jun-2015 Nuclear Stress Test - Chemical Result: Comments: See Note; NOTES: [facility] Imaging Services [address] [place] [address] Verda 4d Nuclear Stress Test - Chemical MR#: [id number] Acct: [id number] N miguel: TIN BLACKWOOD Rep #: [id number] : 1960 54 From: Dusty Lund MD [...] Preserved ejection fraction. Dusty Lund MD T: [facility] JOB: [id number] 06/26/15 1259 & #60;Electronically signed by Dusty Lund MD> Date Dusty Lund MD CC: Shasha Barker MD Date Dictated: 06/22/151819 Date Transcribed: 06/22/151819 Non Food Receiving Clerk: Signed 13-Jun-2015 Lumbar Spine 2 or 3 Views Result: Comments: See Note; NOTES: [facility] Imaging Services [address] [place] [address] Verdana 4d Lumbar Spine 2 or 3 Views MR#: [id number] Acct: [id number] Name: TIN LLOYD Rep #: [id number] : 1960 F 54 From: Smith Delaney MD PCP: Shasha Barker MD Status: REG CLI Study: Lumbar Spine 2 or 3 Views Date of Exam: 06/13/15 Exam# [id number] Ordering Dr: More Watts MD STUDY: X-RAY [...] FACR at 11:06 EST , Service support [phone], RAD/Lumbar Spine 2 or 3 Views IM PRESSION: Degenerative disc disease at L4-5 and L5-S1. Electronically Signed: Smith Delaney MD, FACR at 11:06 EST , Service support [phone], CC: More Taylor MD; Shasha Barker MD Non Food Receiving Clerk: Signed 13-Jun-2015 Thoracic Spine 3 Views Result: Comments: See Note; NOTES: [facility] Imaging Services [address] [place] [address] Verdana 4d Thoracic Spine 3 Views MR#: [id number] Acct: [id number] Name: TIN BLACKWOOD Rep #: [id number] : 1960 F 54 From: Smith Delaney MD PCP: Shasha Barker MD Status: REG CLI Study: Thoracic Spine 3 Views Date of Exam: 06/13/15 Exam# [id number] Ordering Dr: More Taylor MD ADDENDUM by Smith Delaney MD on 06/14/15 at 1105 ADDENDUM TECHNIQUE: 3 view(s) o f the thoracic spine were obtained. Electronically Signed: Smith Delaney MD, FACR at 11:05 EST , Service support [phone], 06/14/15 1105 Date cc: More Taylor MD; [...] FACR at 11:05 EST , Service support [phone], RAD/Thoracic S pine 3 Views IMPRESSION: Thoracic spondylosis Electronically Signed: Smith Delaney MD, FACR at 11:05 EST , Service support [phone], CC: More Taylor MD; Shasha Barker MD Non Food Receiving Clerk: Signed 13-Jun-2015 Thoracic Spine 3 Views Result: Comments: See Note; NOTES: [facility] Imaging Services [address] [place] [address] Verdana 4d Thoracic Spine 3 Views MR#: [id number] Acct: [id number] Name: TIN BLACKWOOD Rep #: [id number] : 1960 F 54 From: Smith Delaney MD PCP: Shasha Barker MD Status: REG CLI Study: Thoracic Spine 3 Views Date of Exam: 06/13/15 Exam# [id number] Ordering Dr: More Taylor MD STUDY: X-RAY [...] FACR at 11:05 EST , Service support [phone], RAD/Thoracic Spine 3 Views IMPRESSION: Thoracic spondylosis Electronic ally Signed: Smith Delaney MD, FACR at 11:05 EST , Service support [phone], CC: More Taylor MD; Shasha Barker MD Non Food Receiving Clerk: Signed 08-Jun-2015 EKG (74116) Result: [MEASUREMENTS ANALYSIS] Date of Test: 06/08/2015 13:15:12; Heart Rate: 96; WY Interval: 130; QRS: 88; QT Interval: 340; Corrected QT Interval (QTc): 403; P Wave Bramwell: 48; QRS Wave Bramwell: 32; T Wave Bramwell: 36; Blood Pressure: 120/80 [ECG DIAGNOSTIC STATEMENTS] Date of Test: 06/08/2015 13:15:12; Summary: Sinus Rhythm WITHIN NORMAL LIMITS [MEASUREMENTS ANALYSIS] Date of Test: 06/08/2015 13:14:43; Heart Ra te: 97; WY Interval: 126; QRS: 88; QT Interval: 340; Corrected QT Interval (QTc): 404; P Wave Bramwell: 51; QRS Wave Bramwell: 31; T Wave Bramwell: 40; Blood Pressure: 120/80 [ECG DIAGNOSTIC STATEMENTS] Date of Supriya t: 06/08/2015 13:14:43; Summary: Sinus Rhythm WITHIN NORMAL LIMITS 27-Feb-2015 Chest PA and Lateral Result: Comments: See Note; NOTES: [facility] Imaging Services [address] [place] [address] Verdana 4d Chest PA and Lateral MR#: [id number] Acct: [id number] Name: Hero BLACKWOODVIOLETAngelita Rep #: [id number] : 1960 F 54 From: Aguilar Joaquin MD PCP: Shasha Barker MD Status: REG CLI Study: Chest PA and Lateral Date of Exam: 02/27/15 Exam# [id number] Ordering Dr: Ophelia Boogie STUDY: X-RAY CHEST [...] Aguilar Joaquin MD at 13:45 EDT Tel [phone], Service support [phone], RAD/Chest PA and Lateral IMPRES TABBY: Persistent interstitial disease in keeping with known scarring. Improved aeration of both lungs with residual infiltrate in the peripheral aspect of the right lung. Electronically Signed: Darryl Joaquin MD at 13:45 EDT Tel [phone], Service support [phone], CC: Ophelia Boogie; Shasha Barker MD Non Food Receiving Clerk: Signed 05-Feb-2015 Chest PA and Lateral Result: Comments: See Note; NOTES: [facility] Imaging Services [address] [place] [address] Radiology Report MR#: [id number] Acct: [id number] Name: TIN BLACKWOOD Rep #: [id number] : 1960 F 54 From: Vega Payan MD PCP: Shasha Barker MD Status: REG CLI Study: Chest PA and Lateral Date of Exam: 02/05/15 Exam# [id number] Ordering Dr: Ophelia Boogie STUDY: X-RAY C [...] Recommend followup till clear. 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 Recommend followup till clear. Electronically Signed: Vega Payan MD a t 17:03 EDT Tel [phone], Service support [phone], CC: Ophelia Boogie; Shasha Barker MD Non Food Receiving Clerk: Signed 06-Nov-2014 Operative Report Result: Comments: See Note; NOTES: [facility] Medical Records Department [address] [place] [address] Operative Report MR#: [id number] Acct: [id number] Name: TIN BLACKWOOD Rep #: [id number] : 1960 53 From: Allie Bales MD PCP: Shasha Barker MD Status: [facility] DATE OF SERVICE: 11/06/2014 DATE OF SERVICE: [...] time. Allie Bales MD T: NTS JOB: [id number] 11/06/14 1429 <Electronically signed by Allie Bales MD> Raul e Allie Bales MD CC: Allie Bales MD; Shasha Barker MD Date Dictated: 11/06/14 1231 Date Transcribed: 11/06/14 1231 Non Food Receiving Clerk: Signed 06-Nov-2014 Discharge Instruction Result: Comments: See Note; NOTES: [facility] Medical Records Department [address] [facility] [place] [address] Instructions for Home/Discharge Instructions 11/06/14 1204 MR#: [id number] ct: [id number] Name: TIN BLACKWOOD Rep #: [id number] : 1960 53 From: Allie Bales MD PCP: Shasha Barker MD Status: REG [facility] [place] Discharge Diet: No Restrictions [...] Operative Report Result: Comments: See Note; NOTES: [facility] Medical Records Department [address] [place] [address] Operative Report 11/06/14 1202 MR#: [id number] Acct: [id number] Name: TIN BLACKWOOD Rep #: [id number] : 1960 53 From: Allie Bales MD PCP: Shasha Barker MD Status: REG SD Y Location: [place] [address] Operative Report (Blank) Date of Procedure: 11/06/14 Preop: Burton rrhagia, thickened endometrium Postop: Same Procedure: D [...] Transvaginal Non- Result: Comments: See Note; NOTES: [facility] Imaging Services [address] [place] [address] Ultrasound Report MR#: [id number] Acct: [id number] Name: TIN BLACKWOOD Rep #: [id number] : 1960 F 53 From: Aguilar Joaquin MD PCP: Shasha Barker MD Status: REG CLI Study: Transvaginal Non- Date of Exam: 07/24/14 Exam# [id number] Ordering Dr: Ophelia Boogie STUDY: ULTRASOUND OF [...] Aguilar Joaquin MD at 10:36 EDT Tel [phone], Service support [phone], CC: Ophelia Boogie; Shasha Barker MD Non Food Receiving Clerk: Signed 24-Jul-2014 Pelvic (Non ) Result: Comments: See Note; NOTES: [facility] Imaging Services [address] [place] [address] Ultrasound Report MR#: [id number] Acct: [id number] Name: TIN BLACKWOOD Rep #: [id number] : 1960 F 53 From: Aguilar Joaquin MD PCP: Shasha Barker MD Status: REG CLI Study: Pelvic (Non ) Date of Exam: 07/24/14 Exam# [id number] Ordering Dr: Ophelia Boogie STUDY: ULTR ASOUND [...] Darryl Joaquin MD at 10:36 EDT Tel [phone], Service support [phone], CC: Ophelia Boogie; Shasha Barker MD Non Food Receiving Clerk: Signed 05-Sep-2013 Cerv Spine 4 or 5 Views Result: Comments: See Note; NOTES: [facility] Imaging Services [address] [place] [address] Radiology Report MR#: [id number] Acct: [id number] Name: TIN BLACKWOOD Rep #: [id number] : 1960 F 52 From: Vazquez Kaye MD PCP: Shasha Barker MD Status: REG CLI Study: Cerv Spine 4 or 5 Views Date of Exam: 09/05/13 Exam# [id number] Ordering Dr: More Taylor MD STUDY: X-RAY [...] MD at 14:28 EDT , Service support [phone], RAD/Cerv Spine 4 or 5 Views IMPRESSION: Multilevel degenerative changes, 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 No significant interval change Electronically Signed: Glenn Kaye MD at 14:28 EDT , Service support [phone] , CC: More Taylor MD; Shasha Barker MD Non Food Receiving Clerk: Signed 10-Feb-2013 Hand Min 3 Views Result: Comments: See Note; NOTES: [facility] Imaging Services [address] [place] [address] Radiology Report MR#: [id number] Acct: [id number] Name: TIN BLACKWOOD Rep #: [id number] : 1960 F 52 From: Julio Cannon MD PCP: Status: REG CLI Study: Hand Min 3 Views Date of Exam: 02/10/13 Exam# [id number] Ordering Dr: Shasha Barker MD STUDY: X-RAY [...] February 10, 2013 at 10:35:57 PM EDT [phone] Electronically Signed BP/BP If you are the refe rring physician and would like to consult with the radiologist who provided this interpretation, please contact Julio Cannon M.D. at [phone]. If this radiologist is unavailable, you will [...] of these documents. CC: Shasha Barker MD Non Food Receiving Clerk: Signed 10-Feb-2013 Hand Min 3 Views Result: Comments: See Note; NOTES: [facility] Imaging Services [address] [place] [address] Radiology Report MR#: [id number] Acct: [id number] Name: TIN BLACKWOOD Rep #: [id number] : 1960 F 52 From: Julio Cannon MD PCP: Status: REG CLI Study: Hand Min 3 Views Date of Exam: 02/10/13 Exam# [id number] Ordering Dr: Shasha Barker MD STUDY: X-RAY [...] February 10, 2013 at 10:36:47 PM EDT [phone] Electronically Signed BP/BP If you are the referring physician and would like to consult with the radiologist who provided this interpretation, please contact Julio Cannon M.D. at [phone]. If this radiologist is unavaila ble, you will be directed to another radiologist to assist. If you are a patient with a question regarding this report, please contact your referring physician directly. Professional Interpretatio n Provided By: [employer], Phone , These documents contain legally protected [...] of these documents. 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 No Drug Use 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 Tobacco Use: Current every day smoker. 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 Non Smoker/No Tobacco Use Status: Inactive Tobacco use: Former smoker. Status: Inactive Smoking Status Name Dates Details Current every day smoker Vital Signs Date Test Result Details 8-Kut-344578:44 Temperature 97.6 f Comments: Method: Temporal Pulse [...] 0.00 cm Results Date Description Value Details 40-Bzx-95738:00 Tissue Biopsy See Note (Normal) Comments: [facility] [address] [place], [place], [address] Comments: Patient: TIN BLACKWOOD : 1960 (57/F) Acct Num: [id number] Phys: Jose L Torres DDS Unit Num: [id number] Loc: [facility] Specimen: [id number] Received: 02/19/18 - 1513 Spec Typ e: [...] time of embedding. / JANES:tammy TC:5 CPT: 75147 HEADER OPERATION: Biopsy cheek/lip PRE-OP DIAGNOSIS: Probable fibroma TISSUE SUBMITTED: Biopsy cheek/lip MICROSCOPIC DESCRIPTION Slides are reviewed. MICROSCOPIC DI AGNOSIS Cheek/lip, biopsy: Squamous mucosa with subepithelial fibrosis, consistent with irritation fibroma. SJ:tammy 02/22/18 Signed Jarrod Holland 02/22/18 <signature on file> :19 HgA1C , Office (38889) HgA1C , Office 6.1 % (Normal) Range: 4.6 - 7.1 7-Ulg-978331:19 Blood Glucose , Office (30444) Blood Glucose , Office 153 (Normal) :19 Urinalysis, Office (85107) UA - LEUKOCYTE ESTERASE Negative (Normal) UA - NITRITE Negative (Normal) URINE UROBILINGN SRAVANI TIMED Normal mg/dL (Normal) UA - PROTEIN Negative mg/dL (Normal) UA - PH 7 (Normal) UA - BLOOD Negative (Normal) UA - SPECIFIC GRAVITY 1.010 (Normal) UA - KETONES Negative mg/dL (Normal) UA - BILIRUBIN Negative (Normal) UA - GLUCOSE Negative (Normal) 8-Ysu-786453:42 CBC-Complete Blood Cnt No Diff Comments: [facility] [address] [place], [address] MPV 9.7 fL (Normal) Range: [...] 4.2-5.4 WBC 8.0 K/mm3 (Normal) Range: 4.4-11.0 8-Ukd-598606:42 Differential Comment Comments: [facility] [address] [place], [address] SMEAR COMMENT SCANNED (Normal) Comments: 1+ ANISOCYTOSIS 6-Mab-023979:42 Liver Profile Comments: Comments: [facility] [address] [place], [address] D BILI 0.14 mg/dL (Normal) Range: 0.00-0.30 T BILI 0.60 mg/dL (Normal) Range: 0.20-1.00 ALT 49 U/L (Normal) Range: 13-56 ALK P 46 U/L (Normal) Range: 45-117 AST 25 U/L (Normal) Range: 15-37 GLOB 3.4 g/dL (Normal) Range: 2.2-4.2 ALB 3.6 g/dL (Normal) Range: 3.2-5.0 T PROT 7.0 g/dL (Normal) Range: 6.4-8.2 19-Fsr-786332:21 CBC-Complete Blood Cnt No Diff Comments: [facility] [address] [facility] [address] [place], [place], [id number] MPV 10.2 fL (Normal) Range: 6.2-12.0 PLT [...] 4.2-5.4 WBC 8.0 K/mm3 (Normal) Range: 4.4-11.0 02-Ddv-877292:21 Liver Profile Comments: [facility] [address] [facility] [place], [place], [address] D BILI 0.14 mg/dL (Normal) Range: 0.00-0.30 T BILI 0.80 mg/dL (Normal) Range: 0.20-1.00 ALT 50 U/L (Normal) Range: 13-56 ALK P 42 U/L (Abnormal) Range: 45-117 AST 30 U/L (Normal) Range: 15-37 GLOB 3.6 g/dL (Normal) Range: 2.2-4.2 ALB 4.0 g/dL (Normal) Range: 3.2-5.0 T PROT 7.6 g/dL (Normal) Range: 6.4-8.2 4-Uav-744809:48 HEPATIC FUNCTION PANEL Comments: PATIENT NOT FASTINGPERFORMED BY: [facility]CoM[facility] HospitalQdtmpv4756 [facility] [id number] (45799) ALT (SGPT) 45 [iU]/L (Abnormal) Range: 0-32 AST (SGOT) 33 [iU]/L (Normal) Range: 0-40 Alkaline Phosphatase 39 [iU]/L (Normal) Range: 39-117 Bilirubin, Direct 0.08 mg/dL (Normal) Range: 0.00-0.40 Bilirubin, Total 0.3 mg/dL (Normal) Range: 0.0-1.2 Protein, Total 6.8 g/dL (Normal) Range: 6.0-8.5 :48 T3, FREE (TRIDOTHYRONINE) (14949) Comments: PATIENT NOT FASTINGPERFORMED BY: [facility] GemsM[facility] HospitalNvyvsd7849 [facility] [id number] Triiodothyronine (T3), Free 2.6 pg/mL (Normal) Range: 2.0-4.4 :48 T4, FREE (THYROXINE) (07295) Comments: PATIENT NOT FASTINGPERFORMED BY: [facility]6370 [facility] [id number] T4,Free(Direct) 0.90 ng/dL (Normal) Range: 0.82-1.77 :48 TSH (11470) Comments: PATIENT NOT FASTINGPERFORMED BY: [facility]6370 [facility] [id number] TSH 0.333 {uIU/mL} (Abnormal) Range: 0.450-4.500 :48 Renal function Panel (28031) Comments: PATIENT NOT FASTINGPERFORMED BY: [facility]ocket GemsM[facility] Rehabilitation HospitalRksmgo0508 [facility] [id number] Albumin 4.6 g/dL (Normal) Range: 3.5-5.5 Phosphorus [...] 6-24 Glucose 118 mg/dL (Abnormal) Range: 65-99 05-Oot-966317:54 CBC-Complete Blood Cnt No Diff Comments: [facility] [address] [facility] [address] [place], [place], [address] MPV 10.3 fL (Normal) Range: 6.2-12.0 PLT [...] 4.2-5.4 WBC 7.3 K/mm3 (Normal) Range: 4.4-11.0 81-Erp-786798:54 Liver Profile Comments: [facility] [address] [place], [place], [address] D BILI 0.09 mg/dL (Normal) Range: 0.00-0.30 T BILI 0.40 mg/dL (Normal) Range: 0.20-1.00 ALT 49 U/L (Normal) Range: 13-56 ALK P 58 U/L (Normal) Range: 45-117 AST 22 U/L (Normal) Range: 15-37 GLOB 3.4 g/dL (Normal) Range: 2.2-4.2 ALB 3.9 g/dL (Normal) Range: 3.2-5.0 T PROT 7.3 g/dL (Normal) Range: 6.4-8.2 33-Eem-686778:13 Liver Profile Comments: [facility] [address] [place], [id number] D BILI 0.07 mg/dL (Normal) Range: 0.00-0.30 T BILI 0.40 mg/dL (Normal) Range: 0.20-1.00 ALT 49 U/L (Normal) Range: 13-56 Comments: Please note revised ALT reference range ovynpbaua42/28/2018. ALK P 53 U/L (Normal) Range: 45-117 AST 22 U/L (Normal) Range: 15-37 GLOB 3.3 g/dL (Normal) Range: 2.2-4.2 ALB 4.0 g/dL (Normal) Range: 3.2-5.0 T PROT 7.3 g/dL (Normal) Range: 6.4-8.2 2-Tgo-929720:59 CBC-Complete Blood Cnt No Diff Comments: [facility] [address] [place], [id number] MPV 10.4 fL (Normal) Range: 6.2-12.0 PLT [...] Range: 4.4-11.0 :59 Erythrocyte Sed Rate Comments: [address] [place], [address] SED RATE 15 mm/h (Normal) Range: 0-30 97-Rci-876364:22 CBC-Complete Blood Cnt No Diff Comments: [facility] [address] [place], [address] MPV 10.4 fL (Normal) Range: 6.2-12.0 [...] 4.2-5.4 WBC 7.6 K/mm3 (Normal) Range: 4.4-11.0 07-Gxw-260846:22 Liver Profile Comments: Comments: [facility] [address] [place], [address] D BILI 0.12 mg/dL (Normal) Range: 0.00-0.30 T BILI 0.60 mg/dL (Normal) Range: 0.20-1.00 ALT 38 U/L (Normal) Range: 13-56 Comments: Please note revised ALT reference range lenefpzit61/28/2018. ALK P 53 U/L (Normal) Range: 45-117 AST 31 U/L (Normal) Range: 15-37 GLOB 3.2 g/dL (Normal) Range: 2.2-4.2 ALB 3.7 g/dL (Normal) Range: 3.2-5.0 T PROT 6.9 g/dL (Normal) Range: 6.4-8.2 62-Huh-222357:33 CBC-Complete Blood Cnt No Diff Comments: [facility] [address] [place], [address] MPV 10.7 fL (Normal) Range: 6.2-12.0 [...] 4.2-5.4 WBC 11.5 K/mm3 (Abnormal) Range: 4.4-11.0 45-Edw-531108:33 Liver Profile Comments: [facility] [address] [place], [place], [address] D BILI 0.09 mg/dL (Normal) Range: 0.00-0.30 T BILI 0.60 mg/dL (Normal) Range: 0.20-1.00 ALT 33 U/L (Normal) Range: 13-56 Comments: Please note revised ALT reference range hurzhzsrb97/28/2018. ALK P 59 U/L (Normal) Range: 45-117 AST 15 U/L (Normal) Range: 15-37 GLOB 3.7 g/dL (Normal) Range: 2.2-4.2 ALB 3.8 g/dL (Normal) Range: 3.2-5.0 T PROT 7.5 g/dL (Normal) Range: 6.4-8.2 09-Kfe-115144:29 CBC-Complete Blood Cnt No Diff Comments: [facility] [address] [place], [place], [id number] MPV 11.1 fL (Normal) Range: 6.2-12.0 PLT [...] 4.2-5.4 WBC 9.5 K/mm3 (Normal) Range: 4.4-11.0 70-Hmg-375561:29 Liver Profile Comments: [facility] [address] [place], [address] D BILI 0.10 mg/dL (Normal) Range: 0.00-0.30 T BILI 0.40 mg/dL (Normal) Range: 0.20-1.00 ALT 29 U/L (Normal) Range: 12-78 ALK P 51 U/L (Normal) Range: 45-117 AST 12 U/L (Abnormal) Range: 15-37 GLOB 3.6 g/dL (Normal) Range: 2.2-4.2 ALB 3.9 g/dL (Normal) Range: 3.4-5.0 Comments: Please note revised Albumin AND Globulin reference rangeeffective 2017. T PROT 7.5 g/dL (Normal) Range: 6.4-8.2 6-Ive-509353:34 Gram Stain w/Sputum Cult Comments: PATIENT NOT FASTINGPERFORMED BY: [employer] [facility] [id number] Information: SRC:SP Rflx Gram Stain Evaluation GSACC (Normal) Comments: This specimen is of good quality and is acceptable for routinebacterial culture. Result 1 GNRF (Normal) Comments: Few gram negative rods.Few gram positive cocciRare gram negative coccobacilli Epithelial Cells Few (Normal) White Blood Cells None seen (Normal) 4-Hkm-227406:34 Sputum Culture Comments: PATIENT NOT FASTINGPERFORMED BY: [employer] Rnqlpk0434 [facility] [id number] Result 1 RRF (Normal) Comments: Routine respiratory roxanne Lower Respiratory Culture Final report (Normal) 8-Cer-982319:12 TSH (81941) Comments: PATIENT NOT FASTINGPERFORMED BY: [facility]6370 [facility] [id number] TSH 0.434 {uIU/mL} (Abnormal) Range: 0.450-4.500 4-Bap-359889:12 T3, FREE (TRIDOTHYRONINE) (53637) Comments: PATIENT NOT FASTINGPERFORMED BY: [facility]6370 [facility] [id number] Triiodothyronine,Free,Serum 3.0 pg/mL (Normal) Range: 2.0-4.4 :12 T4, FREE (THYROXINE) (38280) Comments: PATIENT NOT FASTINGPERFORMED BY: [facility]6370 [facility] [id number]; review 05/15 T4,Free(Direct) 1.22 ng/dL (Normal) Range: 0.82-1.77 27-Gfj-429792:14 CBC-Complete Blood Cnt No Diff Comments: [facility] [address] [place], [place], [id number] MPV 10.8 fL (Normal) Range: 6.2-12.0 PLT [...] 4.2-5.4 WBC 7.7 K/mm3 (Normal) Range: 4.4-11.0 63-Taz-914448:14 Liver Profile Comments: [facility] [address] [place], [place], [address] D BILI 0.11 mg/dL (Normal) Range: 0.00-0.30 T BILI 0.60 mg/dL (Normal) Range: 0.20-1.00 ALT 31 U/L (Normal) Range: 12-78 ALK P 51 U/L (Normal) Range: 45-117 AST 22 U/L (Normal) Range: 15-37 GLOB 3.3 g/dL (Normal) Range: 2.2-4.2 ALB 3.7 g/dL (Normal) Range: 3.4-5.0 Comments: Please note revised Albumin AND Globulin reference rangeeffective 2017. T PROT 7.0 g/dL (Normal) Range: 6.4-8.2 9-Csg-409358:36 CBC-Complete Blood Cnt No Diff Comments: [facility] TSH,FT4,FT3,AND TPOSTANDING ORDER FROM [facility] CBC AND LIVER.[facility] [address] [facility] [address] [place], [place], [address] MPV 10.7 fL (Normal) Range: 6.2-12.0 PLT [...] 4.2-5.4 WBC 6.9 K/mm3 (Normal) Range: 4.4-11.0 0-Bkl-836179:36 Free T3 Comments: [facility] [address] [place], [place], [id number] FREE T3 2.6 pg/mL (Normal) Range: 2.18-3.98 5-Yvr-685627:36 Liver Profile Comments: [facility] [address] [place], [place], [address] D BILI 0.07 mg/dL (Normal) Range: 0.00-0.30 T BILI 0.40 mg/dL (Normal) Range: 0.20-1.00 ALT 32 U/L (Normal) Range: 12-78 ALK P 48 U/L (Normal) Range: 45-117 AST 15 U/L (Normal) Range: 15-37 GLOB 3.2 g/dL (Normal) Range: 2.2-4.2 ALB 3.7 g/dL (Normal) Range: 3.4-5.0 Comments: Please note revised Albumin AND Globulin reference rangeeffective 2017. T PROT 6.9 g/dL (Normal) Range: 6.4-8.2 6-Jcw-263736:36 T4 Free Direct Comments: [facility] [address] [place], [address] T4 FREE DIRECT 0.84 ng/dL (Normal) Range: 0.76-1.46 1-Dfb-832683:36 Thyroid Peroxidase AB Comments: [facility] (refer to report for specific site)refer to report for address and phone number TPO AB 7516 11 {IU/mL} (Normal) Range: 0-34 Comments: Performed at: [address] [id number] Director: Jose L Patel PhD, Phone: [phone] 8-Crv-405203:36 Thyroid Stim Hormone (TSH) Comments: [facility] [address] [place], [address] TSH 0.36 {uIU/mL} (Normal) Range: 0.358-3.74 11-App-355546:03 CBC-Complete Blood Cnt No Diff Comments: [facility] [address] [place], [place], [address] MPV 10.4 fL (Normal) Range: 6.2-12.0 PLT [...] 4.2-5.4 WBC 9.2 K/mm3 (Normal) Range: 4.4-11.0 23-Ent-788548:03 Liver Profile Comments: [facility] [address] [place], [place], [address] D BILI 0.11 mg/dL (Normal) Range: 0.00-0.30 T BILI 0.40 mg/dL (Normal) Range: 0.20-1.00 ALT 30 U/L (Normal) Range: 12-78 ALK P 52 U/L (Normal) Range: 45-117 AST 14 U/L (Abnormal) Range: 15-37 GLOB 3.4 g/dL (Normal) Range: 2.2-4.2 ALB 4.1 g/dL (Normal) Range: 3.4-5.0 Comments: Please note revised Albumin AND Globulin reference rangeeffective 2017. T PROT 7.5 g/dL (Normal) Range: 6.4-8.2 34-Vql-391365:28 CBC-Complete Blood Cnt No Diff Comments: [facility] [address] [place], [place], [phone] MPV 11.1 fL (Normal) Range: 6.2-12.0 PLT [...] 4.2-5.4 WBC 8.7 K/mm3 (Normal) Range: 4.4-11.0 05-Nyj-392138:28 Liver Profile Comments: [facility] [address] [place], [place], [address] D BILI 0.13 mg/dL (Normal) Range: 0.00-0.30 T BILI 0.60 mg/dL (Normal) Range: 0.20-1.00 ALT 32 U/L (Normal) Range: 12-78 ALK P 44 U/L (Abnormal) Range: 45-117 AST 13 U/L (Abnormal) Range: 15-37 GLOB 3.2 g/dL (Normal) Range: 2.2-4.2 ALB 3.7 g/dL (Normal) Range: 3.4-5.0 Comments: Please note revised Albumin AND Globulin reference rangeeffective 2017. T PROT 6.9 g/dL (Normal) Range: 6.4-8.2 [id number] CBC-Complete Blood Cnt No Diff Comments: [facility] [id number] [place], [place], [id number] MPV 10.9 fL (Normal) Range: 6.2-12.0 PLT [...] 4.2-5.4 WBC 7.8 K/mm3 (Normal) Range: 4.4-11.0 [id number] CBC-Complete Blood Cnt No Diff Comments: [facility] [id number] [facility] [place], [id number] MPV 11.2 fL (Normal) Range: [...] 4.2-5.4 WBC 9.1 K/mm3 (Normal) Range: 4.4-11.0 [id number] Liver Profile Comments: [facility] [id number] [facility] [place], [place], [id number] D BILI 0.09 mg/dL (Normal) Range: 0.00-0.30 T BILI 0.20 mg/dL (Normal) Range: 0.20-1.00 ALT 34 U/L (Normal) Range: 12-78 ALK P 55 U/L (Normal) Range: 45-117 AST 15 U/L (Normal) Range: 15-37 GLOB 3.3 g/dL (Normal) Range: 2.3-3.5 ALB 3.5 g/dL (Normal) Range: 3.4-5.0 T PROT 6.8 g/dL (Normal) Range: 6.4-8.2 [id number] URINE ALISSON CULTURE-IDENTIFICATN Comments: PERFORMED BY: [facility] Ipxlab1118 [facility] [id number] Information: SRC:UR (21448) Antimicrobial MIHEAD (Normal) Comments: S = Susceptible; [...] mL (Abnormal) Urine Final report Culture,Comprehensive (Abnormal) 86-Cvt-754461:47 Urinalysis, Office (12441) UA - LEUKOCYTE ESTERASE Small (Normal) UA - NITRITE Negative (Normal) URINE UROBILINGN SRAVANI TIMED Normal mg/dL (Normal) UA - PROTEIN Negative mg/dL (Normal) UA - PH 6 (Abnormal) UA - BLOOD Negative (Normal) UA - SPECIFIC GRAVITY 1.005 (Normal) UA - KETONES Negative mg/dL (Normal) UA - BILIRUBIN Negative (Normal) UA - GLUCOSE Negative (Normal) 78-Iuy-518303:58 Basic Metabolic Profile (BMP) Comments: 'TROP' Serial specimen #1, #2, #3, or #4: 1[facility] Z[address]jcn[address] [place], [place], [address] GAP 10 (Normal) Range: 5-15 CO2 25.0 [...] Range: 70-110 :58 CBC W/Diff, Automated Comments: [facility] [address] [place], [address] Absolute Lymph 1.13 {X10_3/ul} (Normal) [...] Serial specimen #1, #2, #3, or #4: [facility] Huktebgohh3[address] [place], [place], [address] TROPONIN-I 0.11 ng/mL (Abnormal) Comments: TROPONIN-I EXPECTED VALUES <0.05 NEGATIVE 0.06 - 0.59 AT RISK OF IA > OR = 0.60 SUGGEST IA :56 CBC W/Diff, Automated Comments: [facility] [address]kthlo[address] [place], [place], [address] Absolute Lymph 1.30 {X10_3/ul} (Normal) Range: 0.83-4.51 [...] Range: 4.4-11.0 :56 Comprehensive Metabolic Profil Comments: [facility] Axadhwzbog[address] [place], [place], [address] GAP 8 (Normal) Range: 5-15 CO2 29.0 [...] <126 mg/dLsuggests IMPAIRED HOMEOSTASIS per A.D.A. criteria. 88-Tqx-139743:39 CBC W/Diff, Automated Comments: [facility] S[address]fkccccd[address] [place], [place], [address] Absolute Lymph 1.40 {X10_3/ul} (Normal) Range: 0.83-4.51 [...] 4.2-5.4 WBC 8.8 K/mm3 (Normal) Range: 4.4-11.0 34-Msv-197721:39 Comprehensive Metabolic Profil Comments: [facility] Osamtkbbdv[address] [place], [place], [address] GAP 7 (Normal) Range: 5-15 CO2 30.0 [...] 126 mg/dLsuggests DIABETES MELLITUS per A.D.A. criteria. 32-Ulh-842351:43 Homocysteine, Plasma (80968) Comments: PATIENT NOT FASTINGPERFORMED BY: [employer] [facility] [id number] Homocyst(e)ine, Plasma 9.3 umol/L (Normal) Range: 0.0-15.0 82-Asl-145841:12 CRP, High Sensitivity Cardiac Comments: [facility] Rukqszcavz5805 [facility] [place], [place], [address] CRP HIGH SENS 1.10 mg/L (Normal) Comments: Low Relative Risk of CVD <1.0 mg/L Average Relative Risk of CVD 1.0 - 3.0 mg/L High Relative Risk of CVD >3.0 mg/L 49-Afv-803046:12 Erythrocyte Sed Rate Comments: [facility] Kdgzlnmwoz8681 [facility] [place], [place], [phone] SED RATE 24 mm/h (Normal) Range: 0-30 3-Vem-588227:28 CBC WITH MANUAL DIFF (74066) Comments: PATIENT NOT FASTINGPERFORMED BY: [employer] [facility]HealthUn[facility]rp [employer] [facility] [id number] Immature Grans (Abs) 0.0 {x10E3/uL} (Normal) Range: [...] 3.77-5.28 WBC 7.3 {x10E3/uL} (Normal) Range: 3.4-10.8 8-Nrm-159258:28 Metabolic Panel, Basic Comments: PATIENT NOT FASTINGPERFORMED BY: [facility] Nisben9500 [facility] [id number]; will review at 09/04 appt (93888) Calcium, Serum 9.4 mg/dL (Normal) Range: 8.7-10.2 [...] Glucose, Serum 107 mg/dL (Abnormal) Range: 65-99 52-Ztj-348422:31 CBC With Differential/Platelet Comments: PATIENT NOT FASTINGPERFORMED BY: [employer] [facility] [id number] Immature Grans (Abs) 0.0 {x10E3/uL} Range: 0.0-0.1 [...] (Normal) Comments: PATIENT NOT FASTINGPERFORMED BY: [facility] Early[place]bl[place] [id number] 13:31 Comments: WRITTEN AUTHORIZATION RECEIVED.AUTHORIZATION RECEIVED FROM JACKIE BRUNO LPN [id number] BY RADHA EMMANUEL 58-Mzd-324959:31 CBC (Auto) (56678) Comments: PATIENT NOT FASTINGPERFORMED BY: [facility]6370 [facility] [id number] Platelets 416 {x10E3/uL} (Abnormal) Range: 150-379 RDW 17.2 % (Abnormal) Range: 12.3-15.4 MCHC 32.4 g/dL (Normal) Range: 31.5-35.7 MCH 27.0 pg (Normal) Range: 26.6-33.0 MCV 83 fL (Normal) Range: 79-97 Hematocrit 36.7 % (Normal) Range: 34.0-46.6 Hemoglobin 11.9 g/dL (Normal) Range: 11.1-15.9 RBC 4.40 {x10E6/uL} (Normal) Range: 3.77-5.28 WBC 12.7 {x10E3/uL} (Abnormal) Range: 3.4-10.8 17-Umo-199290:31 Magnesium (88752) Comments: PATIENT NOT FASTINGPERFORMED BY: [facility]6370 [facility] [id number] Magnesium, Serum 2.0 mg/dL (Normal) Range: 1.6-2.3 24-Iyl-432484:31 Renal function Panel (87135) Comments: PATIENT NOT FASTINGPERFORMED BY: [facility] HospitalCmreix0785 [facility] [id number] Albumin, Serum 4.1 g/dL (Normal) Range: 3.5-5.5 [...] Glucose, Serum 99 mg/dL (Normal) Range: 65-99 9-Gom-895186:16 Lactic Acid Comments: [facility] [address] [place], [place], [address] LACTIC ACID 1.2 mmol/L (Normal) Range: 0.4-2.0 :52 BNP,B-Type NATRIURETIC PEPTIDE Comments: [facility] [address] [place], [place], [address] B-TYPE BRENT PEP 89.7 pg/mL (Normal) Range: 0-100 :52 CBC W/Diff, Automated Comments: [facility] [address] [place], [place], [address] Absolute Lymph 1.12 {X10_3/ul} (Normal) Range: 0.83-4.51 [...] Serial specimen #1, #2, #3, or #4: 1[facility] [address]qnkupjr[address] [place], [place], [address] GAP 5 (Normal) Range: 5-15 CO2 24.0 [...] Serial specimen #1, #2, #3, or #4: [address] [address] [place], [address] TROPONIN-I 0.73 ng/mL (Abnormal) Comments: TROPONIN-I EXPECTED VALUES <0.05 NEGATIVE 0.06 - 0.59 AT RISK OF IA > OR = 0.60 SUGGEST IA :43 Base Excess ISTAT Comments: [place] [address] [place] [address] BE ISTAT 1 mmol/L (Normal) :43 Bicarbonate ISTAT Comments: [place] [address] [place] [address] HCO3 ISTAT 26 mmol/L (Normal) Range: 22-26 Comments: Site = R RadialDevice = Vent MaskFIO2 = 40Results To = ED MDTime Given = 949 :43 Blood Gas Specimen Type Comments: [place] [address] [place] [address] BLD GAS TYPE ART (Normal) :43 pCO2 - ISTAT 40.0 {mmHg} (Normal) Comments: [place] [address] [place] [address] Range: 35-45 :43 pH - I-STAT 7.42 (Normal) Comments: [place] [address] [place] [address] Range: 7.35-7.45 :43 PO2 I-STAT 68 {mmHG} (Abnormal) Comments: [facility] LaboratoryPoint [place] [address] [place] [address] Range: 75-100 :43 SO2 ISTAT 94 % (Abnormal) Comments: [place] [address] [place] [address] Range: 95-99 :43 Total Carbon Dioxide ISTAT Comments: [place] [address] [place] [address] TOTAL CO2 ISTAT 27 mmol/L (Normal) :06 CBC W/Diff, Automated Comments: [place] [address] [place], [address] Absolute Lymph 1.60 {X10_3/ul} (Normal) Range: [...] 4.2-5.4 WBC 6.3 K/mm3 (Normal) Range: 4.4-11.0 50-Cup-929407:06 Comprehensive Metabolic Profil Comments: [facility] [address] [place], [place], [address] GAP 5 (Normal) Range: 5-15 CO2 30.0 [...] 7-18 GLU 102 mg/dL (Normal) Range: 70-110 57-Ppy-646552:30 PAP I-G w/rfx hrHPV Comments: CYTOLOGY INFORMATION:- CLINICAL INFORMATION:- DATE LMP/MENOPAUSE: MENOPAUSE- COLLECTION VIAL: Thin Prep Vial- CELLOPHANE BATH MIXER SOURCE: CERVICAL/ENDOCERVICAL- COLLECTION TECHNIQUE: BRUSH/SPATULACYTOLOGY INFORMATION :- CLINICAL INFORMATION:- DATE LMP/MENOPAUSE: MENOPAUSE- COLLECTION VIAL: Thin Prep Vial- CELLOPHANE BATH MIXER SOURCE: CERVICAL/ENDOCERVICAL- COLLECTION TECHNIQUE: BRUSH/SPATULASpecimen Comment: [id number] imen Comment: No. of containers..01 CYTYC Thin Prep VialLabCorp (refer to report for specific site)refer to report for address and phone number HPV RFLX Comment (Normal) Comments: The HPV DNA reflex criteria were not met with this specimenresult therefore, no HPV testing was performed.Performed at: [address] [id number] Director: Selene Munoz MD, Phone: [phone] PAPSMR Comment (Normal) Comments: The Pap smear [...] system. PERFORM Comment (Normal) Comments: Dioni Pereira, Hydropulper Operator (ASCP) ADEQ Comment (Normal) Comments: Satisfactory for evaluation. Endocervical and/or squamous metaplasticcells (endocervical component) are present. DIAGN Comment (Normal) Comments: NEGATIVE FOR INTRAEPITHELIAL LESION AND MALIGNANCY. 47-Fbv-969430:09 CBC W/Diff, Automated Comments: [facility] [address] [place], [place], [address] Absolute Lymph 1.61 {X10_3/ul} (Normal) Range: 0.83-4.51 [...] 4.2-5.4 WBC 7.3 K/mm3 (Normal) Range: 4.4-11.0 31-Oaw-631961:09 Comprehensive Metabolic Profil Comments: [facility] [address] [place], [address] GAP 8 (Normal) Range: 5-15 CO2 30.0 [...] 7-18 GLU 90 mg/dL (Normal) Range: 70-110 07-Hvo-491073:09 Lipid Profile Comments: [facility] [address] [place], [address] VLDL 11 mg/dL (Normal) Range: [...] 200-240 mg/dL Borderline >240 mg/dL High Risk 20-Yhb-632679:56 Ferritin (98810) Comments: PATIENT NOT FASTINGPERFORMED BY: [facility] [address] [place] [id number] Information: NURSE DRAW Ferritin, Serum 35 ng/mL (Normal) Range: 15-150 02-Tat-122698:06 Lipid Profile Comments: [facility] [address]gc[address] [place], [address] VLDL 14 mg/dL (Normal) Range: [...] 200-240 mg/dL Borderline >240 mg/dL High Risk 29-Wzu-403914:11 CBC W/Diff, Automated Comments: [facility] [address]fep[address] [place], [address] Absolute Lymph 1.06 {X10_3/ul} (Normal) Range: 0.83-4.51 [...] 4.2-5.4 WBC 9.4 K/mm3 (Normal) Range: 4.4-11.0 55-Ipc-179058:11 Comprehensive Metabolic Profil Comments: [facility] [address] [place], [place], [address] GAP 9 (Normal) Range: 5-15 CO2 29.0 [...] 7-18 GLU 100 mg/dL (Normal) Range: 70-110 43-Oar-654487:59 CBC W/Diff, Automated Comments: [facility] [address] [place], [address] Absolute Lymph 1.33 {X10_3/ul} (Normal) [...] 4.2-5.4 WBC 3.7 K/mm3 (Abnormal) Range: 4.4-11.0 19-Zeg-465994:59 Comprehensive Metabolic Profil Comments: [facility] [address] [place], [address] GAP 7 (Normal) Range: 5-15 [...] 7-18 GLU 84 mg/dL (Normal) Range: 70-110 5-Wkh-984715:15 CBC W/Diff, Automated Comments: [facility] [address]zthwfoy[address] [place], [place], [address] Absolute Lymph 0.51 {X10_3/ul} (Abnormal) Range: 0.83-4.51 [...] 4.2-5.4 WBC 9.8 K/mm3 (Normal) Range: 4.4-11.0 1-Rzz-599995:15 Comprehensive Metabolic Profil Comments: [facility] [address]ig[address] [place], [place], [address] GAP 3 (Abnormal) Range: 5-15 CO2 28.0 [...] 7-18 GLU 107 mg/dL (Normal) Range: 70-110 2-Vho-211723:15 Quantiferon TB-Gold Comments: [facility] (refer to report [...] go to cdc.gov/tb for further details.Performed at: [address] [id number] Director: Jose L Patel PhD, Phone: [phone] QFT AG - NIL 0 {IU/mL} (Normal) [...] of cells for the productionof interferon gamma. 4-Zvg-741238:43 CBC W/Diff, Automated Comments: [facility] [address]uw[address] [place], [place], [address] Absolute Lymph 0.86 {X10_3/ul} (Normal) Range: 0.83-4.51 [...] Range: 4.4-11.0 :43 Comprehensive Metabolic Profil Comments: [facility] [address] [place], [place], [address] GAP 9 (Normal) Range: 5-15 CO2 29.0 [...] <126 mg/dLsuggests IMPAIRED HOMEOSTASIS per A.D.A. criteria. 76-Iuo-924932:00 CORTISOL SERUM Comments: [facility] [address]ufr[address] [facility] [place] [place], [place], [address] CORTISOL 11.80 ug/dL (Normal) Range: 3.09-22.40 Comments: Adult (AM) 4.30 - 22.40 ug/dL Adult (PM) 3.09 - 16.66 ug/dL 47-Dam-666898:00 DHEA Sulfate Comments: Has Patient had Radioactive Injection for X-ray?: N[facility] (refer to report for specific site)refer to report for address and phone number DHEA SULF 1292 35.6 ug/dL (Abnormal) Range: 41.2-243.7 Comments: Performed at: [address] [id number] Director: Jose L Patel PhD, Phone: [phone] 87-Wxo-277555:00 Estradiol Comments: [facility] [address]wcio[address] [place], [place], [address] ESTRADIOL 11.4 pg/mL (Normal) Comments: NORMAL REFERENCE [...] SHOULD BE USED TO DETERMINE ESTRADIOL CONCENTRATION. 00-Yhy-150537:00 Free T3 Comments: [facility] [address] [place], [place], [address] FREE T3 3.1 pg/mL (Normal) Range: 2.18-3.98 68-Ijo-844167:00 Hemoglobin A1c Comments: [facility] [address]wea[address] [place], [place], [address] HGB A1C 6.1 % (Normal) Range: 4.2-6.3 39-Slq-844725:00 Progesterone Level Comments: [facility] [address] [place], [place], [address] Progesterone 2.17 ng/mL (Normal) Comments: Progesterone Reference Table: UNITS Female: Follicular 0.15 - 1.40 ng/mL Luteal 3.34 - 25.56 ng/mL Mid-luteal 4.44 - 28.03 ng/mL Postmenopausal 0.0 - 0.73 ng/mL : 1st Trimester 11.22 - 90.00 ng /mL 2nd Trimester 25.55 - 89.40 ng/mL 3rd Trimester 48.40 -422.50 ng/mL 74-Thw-720581:00 T4 Free Direct Comments: [facility] [address] [place], [address] T4 FREE DIRECT 0.80 ng/dL (Normal) Range: 0.76-1.46 13-Bdv-728162:00 Testosterone, Serum Total Comments: [facility] [address] [place], [address] Testosterone 20 ng/dL (Normal) Range: 14-76 20-Vhu-668516:00 Thyroid Stim Hormone (TSH) Comments: [facility] [address] [place], [address] TSH 0.46 {uIU/mL} (Normal) Range: 0.358-3.74 10-Zba-352581:30 PAP I-G w/rfx hrHPV Comments: CYTOLOGY INFORMATION:- CLINICAL INFORMATION:- DATE LMP/MENOPAUSE: MENOPAUSE- COLLECTION VIAL: Thin Prep Vial- CELLOPHANE BATH MIXER SOURCE: CERVICAL/ENDOCERVICAL- COLLECTION TECHNIQUE: BRUSH/SPATULASpecimen Comment: [id number] Comment: No. of containers..01 CYTYC Thin Prep VialLabCorp (refer to report for specific site)refer to report for address and phone number HPV RFLX Comment (Normal) Comments: The HPV DNA reflex criteria were not met with this specimenresult therefore, no HPV testing was performed.Performed at: [address] [id number] Director: Selene Munoz MD, Phone: [phone] PAPSMR Comment (Normal) Comments: The Pap smear [...] system. PERFORM Comment (Normal) Comments: Luisa Washington, Hydropulper Operator (ASCP) ADEQ Comment (Normal) Comments: Satisfactory for evaluation. No endocervical component is identified. DIAGN Comment (Normal) Comments: NEGATIVE FOR INTRAEPITHELIAL LESION AND MALIGNANCY. 2-Kxx-530973:26 D-Dimer Quantitative (DVT/PE) Comments: [facility] [address] [place], [place], [address] D-DIMER QUANT 0.30 {FEU/ug/m} (Normal) Range: 0.27-0.49 Comments: NORMAL D-Dimer level (<0.50) indicates no DVT or PE. :25 CK-MB Quantitative and Index Comments: 'TROP' Serial specimen #1, #2, #3, or #4: INT'CKMB' Serial Specimen #1, #2 or #3? [address] [place] [address] [address] [place], [place], [address] CKRI 1.3 % (Normal) Range: 0.0-1.4 Comments: RELATIVE INDEX >1.5% IS PRESUMPTIVELY POSITIVE CPKMB 2.2 ng/mL (Normal) Range: 0.0-5.0 Comments: CK-MB and RI Interpretation MB Relative Index Non-AMI <or= 5 NA Indeterminate > 5 <or= 4 AMI > 5 > 4 CPK TOTAL 170 U/L (Normal) Range: 26-192 :25 Troponin I (59335) Comments: 'TROP' Serial specimen #1, #2, #3, or #4: INT'CKMB' Serial Specimen #1, #2 or #3? [address] [place] [address] [address] [place], [place], [address] TROPONIN-I < 0.02 ng/mL (Normal) Comments: TROPONIN-I EXPECTED VALUES <0.05 NEGATIVE 0.06 - 0.59 AT RISK OF IA > OR = 0.60 SUGGEST IA 8-Hvw-268222:13 Urinalysis, Office (27360) UA - LEUKOCYTE ESTERASE Negative (Normal) UA - NITRITE Negative (Normal) URINE UROBILINGN SRAVANI TIMED Normal mg/dL (Normal) UA - PROTEIN Negative mg/dL (Normal) UA - PH 6 (Abnormal) UA - BLOOD Negative (Normal) UA - SPECIFIC GRAVITY 1.020 (Normal) UA - KETONES Negative mg/dL (Normal) UA - BILIRUBIN Negative (Normal) UA - GLUCOSE Negative (Normal) :41 CBC W/Diff, Automated Comments: [facility] [address]fft[address] [place], [place], [address] Absolute Lymph 1.18 {X10_3/ul} (Normal) Range: 0.83-4.51 [...] 4.2-5.4 WBC 8.8 K/mm3 (Normal) Range: 4.4-11.0 99-Bsr-029323:41 Comprehensive Metabolic Profil Comments: [facility] [address]ured[address] [place], [place], [address] GAP 9 (Normal) Range: 5-15 CO2 27.0 [...] 7-18 GLU 98 mg/dL (Normal) Range: 70-110 7-Kwf-665035:41 CBC W/Diff, Automated Comments: [facility] [address]ijdzz[address] [place], [place], [address] Absolute Lymph 1.54 {X10_3/ul} (Normal) Range: 0.83-4.51 [...] 4.2-5.4 WBC 6.6 K/mm3 (Normal) Range: 4.4-11.0 0-Qth-515968:41 Comprehensive Metabolic Profil Comments: [facility] [address]vn[address]clu[address] [place], [place], [address] GAP 7 (Normal) Range: 5-15 CO2 30.0 [...] Range: 70-110 :44 CBC W/Diff, Automated Comments: [facility] [address]ib[address] [place], [address] Absolute Lymph 3.85 {X10_3/ul} (Normal) Range: 0.83-4.51 [...] 4.2-5.4 WBC 10.7 K/mm3 (Normal) Range: 4.4-11.0 83-Ryl-162030:44 Comprehensive Metabolic Profil Comments: ORDERED LIPID,CMPDR.LIOR ORDERED CMP,[facility] [address]ixzwk[address] [place], [place], [address] GAP 8 (Normal) Range: 5-15 CO2 29.0 [...] 7-18 GLU 78 mg/dL (Normal) Range: 70-110 28-Pby-550559:44 Lipid Profile Comments: ORDERED LIPID,CMP ORDERED CMP,[facility] [address]uxdaiai16[address] [place], [place], [address] VLDL 33 mg/dL (Normal) Range: 5-40 LDL [...] 200-240 mg/dL Borderline >240 mg/dL High Risk 9-Dtn-918828:46 CBC W/Diff, Automated Comments: [facility] [address] [place], [address] Absolute Lymph 1.65 {X10_3/ul} (Normal) Range: 0.83-4.51 [...] Range: 4.4-11.0 :46 Comprehensive Metabolic Profil Comments: [facility] [address]ptm[address] [place], [place], [address] GAP 9 (Normal) Range: 5-15 CO2 31.0 [...] per A.D.A. criteria. :46 Culture, Sputum Comments: [facility] [address]tenxxtbct[address] [place], [phone] CUSP See Note (Normal) Comments: Gram StainAcceptable Specimen? Yes (<25 Epithelial cells per/lpf) Gram Stain Rare Gram positive rods 3+ Gram positive cocci 3+ White Blood Cells Rare Epithelial cells Resp. CultureMixed normal respiratory roxanne. No Streptococcus pneumoniae, beta-hemolytic Streptococcus or Staphylococcus aureus isolated. :13 CBC W/Diff, Automated Comments: Test performed at:[facility] Rtjijamkgl[address] [facility] [place] [address] Absolute Lymph 1.78 {X10_3/ul} (Normal) [...] 4.2-5.4 WBC 5.3 K/mm3 (Normal) Range: 4.4-11.0 50-Tef-595350:13 Comprehensive Metabolic Profil Comments: Test performed at:[facility] Wh[address]txcqsiy112[address] [facility] [place] [address] GAP 7 (Normal) Range: 5-15 [...] Comments: Please note revised CREATININE reference range qjcuhxxah73/22/2015. BUN 18 mg/dL (Normal) Range: 7-18 GLU 124 mg/dL (Abnormal) Range: 70-110 Comments: Fasting Glucose result from 110 to <126 mg/dLsuggests IMPAIRED HOMEOSTASIS per A.D.A. criteria. 2-Asw-913486:5 ENDOMETRIAL BX/CURETTINGS See Note (Normal) Comments: Test performed at:[facility] [address] [place] [address] 4 Comments: Patient: TIN BLACKWOOD : 1960 (53/F) Acct Num: [id number] Phys: Allie Bales MD Unit Num: [id number] Loc: [facility] [place] Specimen: [id number] Received: 11/06/14 - 9665 Spec Type: ENDOM BX/C TISSUES TISSUES: GROSS DESCRIPTION Received is one container labeled with the patient name and designated endometrial curettings. The specimen consists of multiple fragments o f hemorrhagic soft tissue measuring in aggregate 5 x 2 x 0.2 cm. The entire specimen is submitted in two cassettes. / SJ:sl 11/06/14 TC:5 CPT: 93098 HEADER OPERATION: Hysteroscopy, diagnosti c, D AND C PRE-OP DIAGNOSIS: Menorrhagia, thickened endometrium TISSUE SUBMITTED: Endometrial curettings MICROSCOPIC DIAGNOSIS Endometrium, curettings: Secretory endometrium. AM:s l 11/07/14 Signed Michael Frandy 11/07/14 <signature on file> 2-Vmz-768395:48 Partial Thromboplast Time Comments: Test performed at:[facility] [address] [place] [address] PTT 26.6 s (Normal) Range: 24.1-36.2 8-Are-797858:48 Prothrombin Time w/INR Comments: Test performed at:[facility] [address] [place] [address] INR 0.9 (Normal) PROTIME 12.2 s (Normal) Range: 11.7-14.9 5-Gnc-200913:18 ,Urine Comments: Order Date: 11/06/14Has pt arrived? YTest performed at:[facility] [address] [place] [address] HCGUQUAL Negative {Negative} (Normal) Comments: Very dilute urine specimens, as indicated by a low specificgravity, may not contain retail field representative levels of hCG.If is still suspected, a first morning urinespecimen should be collected 48 hours later and tested. :26 Estradiol Comments: Test performed at:[facility] [address] [address] ESTRADIOL 13.1 pg/mL (Normal) Comments: NORMAL REFERENCE RANGES FEMALE FOLLICULAR 21.4 - 164.8 pg/mL MID-CYCLE PEAK 49.9 - 367.2 pg/mL LUTEAL 40.2 - 259.0 pg/mL POST-MENOPAUSAL ON MHT <11.0 - 462.1 pg/mL NOT ON MHT <11.0 - 58.3 pg/mL MALE <11.0 - 52 .5 pg/mLNEW TEST METHOD AND REFERENCE RANGE SEPTEMBER 22, 2011:26 Free T3 Comments: Test performed at:[facility] [address] [place] [address] FREE T3 3.0 pg/mL (Normal) Range: 2.18-3.98 :26 Hemoglobin A1c Comments: Test performed at:[facility] [address]idii[address] [place] [address] ; ordered by other doctor HGB A1C 5.7 % (Normal) Range: 4.2-6.3 :26 Progesterone Level Comments: Test performed at:[facility] [address]eti[address] [place] [address] Progesterone 0.34 ng/mL (Normal) Comments: Progesterone Reference Table: UNITS Female: Follicular 0.15 - 1.40 ng/mL Luteal 3.34 - 25.56 ng/mL Mid-luteal 4.44 - 28.03 ng/mL Postmenopausal 0.0 - 0.73 ng/mL : 1st Trimester 11.22 - 90.00 ng /mL 2nd Trimester 25.55 - 89.40 ng/mL 3rd Trimester 48.40 -422.50 ng/mL :26 T4 Free Direct Comments: Test performed at:[facility] [id number] [place] [address] T4 FREE DIRECT 0.77 ng/dL (Normal) Range: 0.76-1.46 :26 Testosterone, Serum Total Comments: Test performed at:[facility] [id number] [place] [address] Testosterone 30 ng/dL (Normal) Range: 14-76 Comments: ADDENDA: ordered by Dr. Bales :26 Thyroid Stim Hormone (TSH) Comments: Test performed at:[facility] [address] [place] [address] TSH 0.84 {uIU/mL} (Normal) Range: 0.358-3.74 6-Iwk-770479:03 17-Hydroxypregnenolone, MS Comments: PATIENT NOT FASTINGPERFORMED BY: NILE Pocket Gemsrp Uuosaq[address] [place] [id number] BY: ES [employer] Ncdxviagopjku1128 [facility] [id number] 17 [place] Pregnenolone, 14 ng/dL (Abnormal) Comments: Reference Range:Adults: 53 - 357 Serum, MS hCG,Beta Negative m[iU]/mL Comments: PATIENT NOT FASTINGPERFORMED BY: SocialReprp Zrcwqx3138 [address] [facility] [place] [id number] BY: ES [employer] Fzpxbwoimwnqf9926 [facility] [id number] 2:03 Subunit,Qual,Serum (Normal) Prolactin 10.9 ng/mL (Normal) Comments: PATIENT NOT FASTINGPERFORMED BY: [employer] LabHealthUnlockedrp Yscmck0129 [address] [facility] [place] [id number] BY: ES [employer] Dgdlqkekwnawx2873 [facility] [id number] 2:03 Range: 4.8-23.3 8-Zzb-725325:03 Prothrombin Time (PT) Comments: PATIENT NOT FASTINGPERFORMED BY: SocialReprp Wmsvgc3076 [address] [facility] [place] [id number] BY: ES EsoterLectus Therapeutics Wmxtlayokzwmo3583 [facility] [id number] 11Clinical Information: [id number], [id number] Prothrombin Time 10.5 {sec} (Normal) Range: 9.1-12.0 INR 1.0 (Normal) Range: 0.8-1.2 Comments: Reference interval is for non-anticoagulated patients. . Suggested INR therapeutic range for Vitamin K anta gonist therapy: Standard Dose (moderate intensity therapeutic range): 2.0 - 3.0 Higher intensity therapeutic range 2.5 - 3.5 0-Tyi-277077:03 PTT, Activated Comments: PATIENT NOT FASTINGPERFORMED BY: [employer] LabCoCopsForHire Qdjlmm6514 [address] [facility] [place] [id number] BY: [employer] Yykusfoveavdr8437 [facility] [id number] aPTT 27 {sec} (Normal) Range: 24-33 Comments: This test has not been validated for monitoring unfractionated heparintherapy. aPTT-based therapeutic ranges for unfractionated heparintherapy have not been established. For general guidelines onHeparin monitoring, refer to the [facility] Directory of Services. 1-Eif-918492:03 Thyroxine (T4) Free, Comments: PATIENT NOT FASTINGPERFORMED BY: [place] 9378270 [facility] [id number] BY: [employer] [id number] Direct, S T4,Free(Direct) 0.87 ng/dL (Normal) Range: 0.82-1.77 9-Cse-474235:0 TSH 0.723 {uIU/mL} Comments: PATIENT NOT FASTINGPERFORMED BY: [address] [id number] BY: [employer] Solutions IntegrationBetty Ville 8681401 [facility] [id number] 3 (Normal) Range: 0.450-4.500 2-Bax-782635:01 CBC W/Diff, Automated Comments: Test performed at:[facility] Lastkqjshj4[address]ai[address] [place], [place] [id number] Absolute Lymph 1.51 {X10_3/ul} (Normal) Range: 0.83-4.51 [...] 4.2-5.4 WBC 5.7 K/mm3 (Normal) Range: 4.4-11.0 7-Ixr-899390:01 Comprehensive Metabolic Profil Comments: Test performed at:[facility] Bjnxaiulgd2692 [address] [place], [place] [id number] GAP 7 (Normal) Range: 5-15 CO2 28.0 [...] 7-18 GLU 94 mg/dL (Normal) Range: 70-110 29-Ppj-976769:09 Urine Test, Office (18637) Urine Test, Office Negative (Normal) 43-Aqf-448293:09 Urinalysis, Office (00416) UA - LEUKOCYTE ESTERASE Negative (Normal) UA - NITRITE Negative (Normal) URINE UROBILINGN SRAVANI TIMED Normal mg/dL (Normal) UA - PROTEIN Negative mg/dL (Normal) UA - PH 6 (Abnormal) UA - BLOOD Negative (Normal) UA - SPECIFIC GRAVITY 1.025 (Normal) UA - KETONES Negative mg/dL (Normal) UA - BILIRUBIN Negative (Normal) UA - GLUCOSE Negative (Normal) 3-Dlq-856837:14 CBC W/Diff, Automated Comments: Test performed at:[facility] Ucgvbatpsd3[address] [place], [place] [address] Absolute Lymph 2.05 {X10_3/ul} (Normal) Range: 0.83-4.51 [...] 4.2-5.4 WBC 8.6 K/mm3 (Normal) Range: 4.4-11.0 0-Acv-089101:14 Comprehensive Metabolic Profil Comments: Test performed at:[facility] [address]zg[address] [place] [address] GAP 2 (Abnormal) Range: 5-15 CO2 32.0 [...] 7-18 GLU 102 mg/dL (Normal) Range: 70-110 08-Fxw-910676:18 CBCD ALC 1.55 {X10_3/ul} (Normal) Range: 0.83-4.51 [...] 4.2-5.4 WBC 7.2 K/mm3 (Normal) Range: 4.4-11.0 61-Lqp-937391:18 CMP GAP 4 (Abnormal) Range: 5-15 CO2 [...] 7-18 GLU 92 mg/dL (Normal) Range: 70-110 4-Nsm-192434:31 CBCD ALC 1.45 {X10_3/ul} (Normal) Range: 0.83-4.51 [...] 4.2-5.4 WBC 7.6 K/mm3 (Normal) Range: 4.4-11.0 9-Dfx-897649:45 CMP GAP 8 (Normal) Range: 5-15 CO2 [...] Range: 70-110 :50 Blood Glucose , Office (31691) Blood Glucose , Office 143 (Normal) Comments: non-fasting :50 HgA1C , Office (16511) HgA1C , Office 5.8 % (Normal) Range: 4.6 - 7.1 :36 ISIAH Negative (Normal) Comments: Performed at: - [facility] [address] [id number] Director: Ricardo Pace MD, Phone: [phone] :[phone] CCP < 1 {units} (Normal) Range: 0-19 Comments: Negative <20Weak positive 20 - 39Moderate positive 40 - 59Strong positive >59Performed at: - [facility] [id number] Director: Stepan Hernandez MD, Phone: [phone] :[phone] CRP 3.36 mg/L (Abnormal) Range: 0.0-3.0 [...] (Normal) Range: 0.358-3.74 :46 HgA1C , Office (75152) HgA1C , Office 5.7 % (Normal) Range: 4.6 - 7.1 :46 Blood Glucose , Office (96319) Blood Glucose , Office 106 (Normal) :51 HgA1C , Office (65063) HgA1C , Office 5.8 % (Normal) Range: 4.6 - 7.1 :51 Blood Glucose , Office (57384) Blood Glucose , Office 122 (Normal) Comments: non-fasting 6-Llk-701129:05 HgA1C , Office (30338) HgA1C , Office 5.8 % (Normal) Range: 4.6 - 7.1 :04 Blood Glucose , Office (40629) Blood Glucose , Office 137 (Normal) :25 HgA1C , Office (40523) HgA1C , Office 5.7 % (Normal) Range: 4.6 - 7.1 :25 Blood Glucose , Office (54872) Blood Glucose , Office 96 (Normal) 28-Sog-831514:33 HEPATIC FUNCTION PANEL Comments: PATIENT NOT FASTINGPERFORMED BY: SocialRepMarlton Rehabilitation HospitalUxdtjl3684 [address] [facility] [id number] (20476) Alkaline Phosphatase, S 46 [iU]/L (Normal) Range: [...] Total, Serum 6.7 g/dL (Normal) Range: 6.0-8.5 34-Eup-989541:33 Renal function Panel Comments: PATIENT NOT FASTINGPERFORMED BY: SocialRepMarlton Rehabilitation HospitalBpouqg7507 [facility] [id number] Information: [id number] DRAW FEE 621996 (44404) Albumin, Serum 4.3 g/dL (Normal) Range: 3.5-5.5 [...] Glucose, Serum 105 mg/dL (Abnormal) Range: 65-99 90-Aef-138439:04 Urinalysis, Office (34868) UA - BILIRUBIN Negative (Normal) UA - BLOOD Negative (Normal) UA - GLUCOSE Negative (Normal) UA - KETONES Negative mg/dL (Normal) UA - LEUKOCYTE ESTERASE Negative (Normal) UA - NITRITE Negative (Normal) UA - PH 6.0 (Normal) UA - PROTEIN Negative mg/dL (Normal) UA - SPECIFIC GRAVITY 1.025 (Normal) URINE UROBILINGN SRAVANI TIMED Normal mg/dL (Normal) 29-Oyv-788236:41 HgA1C , Office (73227) HgA1C , Office 5.9 % (Normal) Range: 4.6 - 7.1 :42 LQDPAP [id number] PAPSMR Comment (Normal) Comments: The Pap smear [...] HPV testing was performed. .Performed at: - [facility] [id number] Director: John Echeverria MD, Phone: [phone] COMM . (Normal) DIAGN Comment (Normal) Comments: NEGATIVE FOR INTRAEPITHELIAL LESION AND MALIGNANCY.Satisfactory for evaluation. Endocervical and/or squamous metaplasticcells (endocervical component) are present.Holly Reed, Hydropulper Operator (ASCP)T his liquid based ThinPrep(R) pap test was screened withthe use of an image guided system. 35-Shh-635483:20 TSH (66984) Comments: PATIENT WAS FASTINGPERFORMED BY: [facility]6370 [facility] [id number] TSH 2.160 {uIU/mL} (Normal) Range: 0.450-4.500 68-Pby-830459:20 MICROALBUMIN: CREATININE RATIO Comments: PATIENT WAS FASTINGPERFORMED BY: [facility] [id number] (21648) AND (43238) Microalb/Creat Ratio 2.3 {mg/g_creat} (Normal) Range: 0.0-30.0 Microalbumin, Urine 1.6 ug/mL (Normal) Range: 0.0-17.0 Creatinine, Urine 70.5 mg/dL (Normal) Range: 15.0-278.0 29-Rzl-896718:20 METABOLIC PANEL, COMPREHENSIVE Comments: PATIENT WAS FASTINGPERFORMED BY: [facility] [id number] (12582) ALT (SGPT) 19 [iU]/L (Normal) Range: 0-40 [...] Glucose, Serum 109 mg/dL (Abnormal) Range: 65-99 94-Tvu-212615:20 LIPID PANEL (60809) Comments: PATIENT WAS FASTINGPERFORMED BY: [facility] HostingFormerly [facility] [id number] LDL/HDL Ratio 1.4 {ratio_units} (Normal) Range: 0.0-3.2 LDL Cholesterol Calc 108 mg/dL (Abnormal) Range: 0-99 VLDL Cholesterol Zaria 16 mg/dL (Normal) Range: 5-40 HDL Cholesterol 78 mg/dL (Normal) Comments: According to ATP-III Guidelines, HDL-C >59 mg/dL is considered anegative risk factor for CHD. Cholesterol, Total 202 mg/dL (Abnormal) Range: 100-199 Triglycerides 82 mg/dL (Normal) Range: 0-149 31-Okg-875073:20 CBC WITH MANUAL DIFF Comments: PATIENT WAS FASTINGPERFORMED BY: [employer] [facility] [id number] Information: ADD [id number] AND DRAW FEE 99 8943 (34332) Immature Grans (Abs) 0.0 {x10E3/uL} (Normal) Range: [...] 3.80-5.10 WBC 5.2 {x10E3/uL} (Normal) Range: 4.0-10.5 80-Fce-520698:05 URINE ALISSON CULTURE-SRAVANI COL Comments: PATIENT NOT FASTINGPERFORMED BY: [facility] Cllfot4773 [facility] [id number] Information: SRC: [id number] COUNT (66047) Antimicrobial MIHEAD (Normal) Comments: S = Susceptible; [...] Final report (Normal) Culture,Comprehensive :51 Urinalysis, Office (59645) UA - BILIRUBIN Negative (Normal) UA - BLOOD Hemolyzed Trace (Normal) UA - GLUCOSE Negative (Normal) UA - KETONES Negative mg/dL (Normal) UA - LEUKOCYTE ESTERASE Large (Normal) UA - NITRITE Negative (Normal) UA - PH 6.5 (Normal) UA - PROTEIN Negative mg/dL (Normal) UA - SPECIFIC GRAVITY 1.015 (Normal) URINE UROBILINGN SRAVANI TIMED Normal mg/dL (Normal) 88-Gls-520265:53 CBC (Auto) (60420) Comments: PATIENT NOT FASTINGPERFORMED BY: SocialRepMarlton Rehabilitation HospitalZgiwmu9271 [facility] [id number] Information: [id number] Platelets 271 {x10E3/uL} (Normal) Range: 140-415 RDW 13.4 % (Normal) Range: 11.7-15.0 MCHC 34.0 g/dL (Normal) Range: 32.0-36.0 MCH 31.0 pg (Normal) Range: 27.0-34.0 Hematocrit 37.9 % (Normal) Range: 34.0-44.0 MCV 91 fL (Normal) Range: 80-98 Hemoglobin 12.9 g/dL (Normal) Range: 11.5-15.0 RBC 4.16 {x10E6/uL} (Normal) Range: 3.80-5.10 WBC 4.7 {x10E3/uL} (Normal) Range: 4.0-10.5 :53 Potassium Serum (16754) Comments: PATIENT NOT FASTINGPERFORMED BY: Pocket GemsMarlton Rehabilitation HospitalCfytak5712 [facility] [id number] Potassium, Serum 4.9 mmol/L (Normal) Range: 3.5-5.2 [...] 05/24/10 1522 NANCY. BETH 13:17 Range: 25-115 22-Uxb-642648:17 CBCD,SMEAR DIFF RED CELL MORPH SeeNote {NORMAL} [...] 4.2-5.4 WBC 3.0 K/mm3 (Abnormal) Range: 4.4-11.0 49-Hxn-756424:17 COMP METABOLIC Comments: RESULTS FAXED 05/24/10 152Juve [...] 0.6-1.0 GLU 82 mg/dL (Normal) Range: 70-110 32-Xhh-778122:17 LIPASE 124 U/L (Normal) Comments: RESULTS FAXED 05/24/10 1522 LA CAMPOSCY. Range: 70-290 Comments: Please note:LIPASE revised reference range effective 09. 1-Jnh-461690:38 CBCD,SMEAR DIFF RED CELL MORPH SeeNote {NORMAL} [...] 4.2-5.4 WBC 5.3 K/mm3 (Normal) Range: 4.4-11.0 9-Gnw-374942:38 COMP METABOLIC GAP 8 (Normal) Range: 5-15 [...] 0.6-1.0 GLU 86 mg/dL (Normal) Range: 70-110 5-Gah-935410:38 LIPID LDL 98 mg/dL (Normal) Range: 0-130 [...] Very High > or = 500 mg/dL 4-Moe-712137:38 MICROALB:CRE UR MALB:CREAT 13.5 {mg/g_CRE} (Normal) MICROALBUMIN,UR 5.2 mg/L (Normal) UR CREAT 38.5 mg/dL (Normal) :38 TSH 0.50 {uIU/mL} (Normal) Range: 0.358-3.74 3-Hwn-563940:03 Urinalysis, Office (93645) UA - BILIRUBIN Negative (Normal) UA - BLOOD Hemolyzed Trace (Normal) UA - GLUCOSE Negative (Normal) UA - KETONES Negative mg/dL (Normal) UA - LEUKOCYTE ESTERASE Negative (Normal) UA - NITRITE Negative (Normal) UA - PH 6.5 (Normal) UA - PROTEIN Negative mg/dL (Normal) UA - SPECIFIC GRAVITY 1.020 (Normal) URINE UROBILINGN SRAVANI TIMED Normal mg/dL (Normal) 23-Kdc-503051:01 Urinalysis, Office (89251) UA - BILIRUBIN Moderate (Normal) UA - BLOOD Hemolyzed Large (Normal) UA - GLUCOSE Negative (Normal) UA - KETONES Negative mg/dL (Normal) UA - LEUKOCYTE ESTERASE Negative (Normal) UA - NITRITE Negative (Normal) UA - PH 6.0 (Normal) UA - PROTEIN Negative mg/dL (Normal) UA - SPECIFIC GRAVITY 1.010 (Normal) URINE UROBILINGN SRAVANI TIMED Normal mg/dL (Normal) 36-Mzx-129447:46 URINE ALISSON CULTURE-IDENTIFICATN Comments: PATIENT NOT FASTINGPERFORMED BY: [facility] Ckrbty0930 [facility] [id number] Information: [id number] (82288) Result 1 NG36 (Normal) Comments: No growth in 36 - 48 hours. Urine Culture,Comprehensive Final report (Normal) 12-Xee-534557:00 TSH (06491) Comments: PATIENT WAS FASTINGPERFORMED BY: [facility]6370 [facility] [id number] TSH 1.190 {uIU/mL} (Normal) Range: 0.450-4.500 29-Llk-976204:00 METABOLIC PANEL, COMPREHENSIVE Comments: PATIENT WAS FASTINGPERFORMED BY: [facility]6370 [facility] [id number] (76534) A/G Ratio 1.7 (Normal) Range: 1.1-2.5 Albumin, [...] Sodium, Serum 139 mmol/L (Normal) Range: 135-145 56-Pzw-271689:00 LIPID PANEL (24968) Comments: PATIENT WAS FASTINGPERFORMED BY: [employer]70 [facility] [id number] Cholesterol, Total 231 mg/dL (Abnormal) Range: 100-199 HDL Cholesterol 79 mg/dL (Normal) Comments: According to ATP-III Guidelines, HDL-C >59 mg/dL is considered anegative risk factor for CHD. LDL Cholesterol Calc 127 mg/dL (Abnormal) Range: 0-99 LDL/HDL Ratio 1.6 {ratio_units} (Normal) Range: 0.0-3.2 Triglycerides 123 mg/dL (Normal) Range: 0-149 VLDL Cholesterol Zaria 25 mg/dL (Normal) Range: 5-40 56-Psv-056751:00 CBC WITH MANUAL DIFF (36611) Comments: PATIENT WAS FASTINGClinical Information: [id number] PERFORMED BY: [employer]6370 [facility] [id number] Baso (Absolute) 0.0 {x10E3/uL} (Normal) Range: 0.0-0.2 [...] Clinical Information: SRC:UR PERFORMED BY: NILE Palmer6370 [facility] [id number] Result 1 ECV (Normal) Comments: Escherichia coli, [...] S Urine Final report (Normal) Culture,Comprehensiv e 73-Uep-170588:59 Urinalysis, Office (47913) UA - BILIRUBIN Negative (Normal) UA - BLOOD Hemolyzed Moderate (Normal) UA - GLUCOSE Negative (Normal) UA - KETONES Negative mg/dL (Normal) UA - LEUKOCYTE ESTERASE Moderate (Normal) UA - NITRITE Negative (Normal) UA - PH 6.0 (Normal) UA - PROTEIN Negative mg/dL (Normal) UA - SPECIFIC GRAVITY 1.015 (Normal) URINE UROBILINGN SRAVANI TIMED 2 mg/dL (Normal) 48-Rdn-194831:54 URINALYSIS W/O MICRO (74381) Comments: PATIENT WAS FASTINGPERFORMED BY: NILE Crowleylin6370 [facility] [id number] Appearance Clear (Normal) Bilirubin Negative (Normal) Glucose Negative (Normal) Ketones Negative (Normal) Microscopic Examination MICRON (Normal) Comments: Microscopic follows if indicated. Nitrite, Urine Negative (Normal) Occult Blood Negative (Normal) pH 6.5 (Normal) Range: 5.0-7.5 Protein Negative (Normal) Specific [place] 1.012 (Normal) Range: 1.005-1.030 Urine-Color Yellow (Normal) Urobilinogen,Semi-Qn 0.2 mg/dL (Normal) Range: 0.0-1.9 WBC Esterase Negative (Normal) :54 TSH (29113) Comments: PATIENT WAS FASTINGPERFORMED BY: [employer]70 [facility] [id number] TSH 1.015 {uIU/mL} (Normal) Range: 0.450-4.500 :54 METABOLIC PANEL, COMPREHENSIVE Comments: PATIENT WAS FASTINGPERFORMED BY: [employer]6370 [facility] [id number] (12133) A/G Ratio 1.5 (Normal) Range: 1.1-2.5 Albumin, [...] Serum 113 mg/dL (Abnormal) Range: 65-99 If -Sierra Leonean >59 mL/min/1.73 Comments: Note: Persistent reduction for [...] Sodium, Serum 140 mmol/L (Normal) Range: 135-145 12-Ygs-292510:54 LIPID PANEL (02068) Comments: PATIENT WAS FASTINGPERFORMED BY: [employer] [place] [id number] Cholesterol, Total 199 mg/dL (Normal) Range: 100-199 [...] Cholesterol Zaria 26 mg/dL (Normal) Range: 5-40 00-Ksb-943093:54 CBC WITH MANUAL DIFF (41607) Comments: PATIENT WAS FASTINGClinical Information: ADD DRAW FEE [id number] ADD J 16392 PERFORMED BY: [employer] LabCoCynvecFormerly [facility] [id number] Baso (Absolute) 0.0 {x10E3/uL} (Normal) Range: 0.0-0.2 [...] change for the pediatric CBC With Differential/Platelet 44-Lvn-376892:32 PELVIC (NON-PREG) (HP) Radiology Report See Note (Normal) Comments: Exam Number: [id number] PELVIC ULTRASOUND HISTORYOvarian cyst, left side. COMPARISON [...] 26, 2006. Reported By: MANSI SINGER M.D. 5-Dls-846062:42 ISIAH-D [id number] ISIAH-DIRECT 32 U/mL (Normal) Range: 0-99 Comments: [...] Range: 0.2 - 1.0 :42 T3, FREE 93313 2.8 pg/mL (Normal) Range: 2.3-4.2 Comments: Performed At: [address] [id number] :42 T4 FREE,DIRECT 1.0 ng/dL (Normal) Range: 0.89-1.76 :42 TSH 0.54 {uIU/mL} (Normal) Range: 0.34-4.82 7-Ukj-694461:56 MAMM, UILAT DIAG DIGITAL & CAD Radiology Report See Note (Normal) Comments: Exam Number: [id number] MAMMOGRAPHY, RIGHT UNILATERAL DIAGNOSTIC DIGITAL AND CAD [...] mammograms werealso examined with computer-aided detection software ([employer] Reported By: AARON DE ANDA M.D. :59 MAMM, BILAT SCRN DIGITAL & CAD Radiology Report See Note (Normal) Comments: Exam Number: [id number] BILATERAL SCREENING DIGITAL MAMMOGRAM CLINICAL INFORMATIONScreening. TECHNIQUEBilateral [...] werealso examined with computer- aided detection software ([employer] Reported By: SUSI MACK M.D. 72-Drp-322202:59 PELVIC (NON-PREG) (HP) Radiology Report See Note (Normal) Comments: Exam Number: [id number] TRANSABDOMINAL PELVIC ULTRASOUND CLINICAL STATEMENTLower abdominal pain. [...] Anxiety: emotional health Indication: Impaired fasting glucose [employer] V73.21 (Renamed from [employer]) : *Well Female Maintenance (KF) Indication: XcerionV V73.21 (Renamed from [employer]) [employer] V73.21 (Renamed from [employer]) : Pap/Pelvic/Bimanual/Rectal/Breast Exam was done. Indication: [employer] V73.21 (Renamed from [employer]) Dysuria : Water in diet, brief version Indication: Dysuria Dysuria : *UTI treatment Indication: Dysuria Dysuria : *UTI treatment Indication: Dysuria Dysuria : UTI treatment Indication: Dysuria Fatigue : FOLLOW UP IN 2 WEEKS Indication: Fatigue Fatigue : *fatigue education Indication: Fatigue Planned Observations Anti-TPO Antibody (60000)Indication: Subclinical hyperthyroidism On: 16-Rjs-987086:40 Request Comments: check in February T4, FREE (THYROXINE) (66337)Indication: Subclinical hyperthyroidism On: :40 Request Comments: check in February T-3 UPTAKE (36350)Indication: Subclinical hyperthyroidism On: :40 Request Comments: recheck February TSH (93027)Indication: Subclinical hyperthyroidism On: :40 Request Comments: recheck February CULTURE, SPUTUM (32666)Indication: COPD with acute exacerbation (Renamed from Acute exacerbation of chronic obstructive airways disease) On: 6-Lfo-377110:45 Request Anti-TPO Antibody (33992)Indication: Abnormal blood chemistry On: 6-Ran-542516:18 Request T3, FREE (TRIDOTHYRONINE) (39734)Indication: Abnormal blood chemistry On: :18 Request T4, FREE (THYROXINE) (33142)Indication: Abnormal blood chemistry On: :18 Request TSH (31053)Indication: Abnormal blood chemistry On: 0-Skx-481763:18 Request D-Dimer (43915)Indication: Chest pain On: 2-Ncf-295120:49 Request Comments: do all labs stat...zaria to on zaria DrPeter if abnormal CPK MB FRACTION (19304)Indication: Chest pain On: 6-Xks-713484:22 Request CREATINE KINASE TOTAL (76084)Indication: Chest pain On: 9-Gik-219812:22 Request Metabolic Panel, Comprehensive (75265)Indication: Fatigue On: 6-Caf-910122:06 Request CBC, Platelets & Auto Diff (15733)Indication: Immunocompromised On: 2-Ppm-906794:03 Request CULTURE, SPUTUM (46435)Indication: Bronchitis, acute On: 7-Njs-049184:58 Request METABOLIC PANEL, COMPREHENSIVE (63483)Indication: Benign essential hypertension On: 03-Jxm-452773:57 Request LIPID PANEL (72886)Indication: Benign essential hypertension On: 79-Wxh-776893:57 Request T4, FREE (THYROXINE) (16704)Indication: Perimenopausal menorrhagia On: 0-Gfk-864265:00 Request TSH (THYROID STIMULATING HORMONE) (64043)Indication: Perimenopausal menorrhagia On: 3-Uix-303043:59 Request Comments: fax copy all labs to Dr. bales HCG (HUMAN CHORIONIC GONADOTROPIN) (69267)Indication: Perimenopausal menorrhagia On: 6-Bnz-735727:57 Request PTT (ACTIVATED PARTIAL THROMBOPLASTIN TIME) (72029)Indication: Perimenopausal menorrhagia On: 1-Ffu-091928:57 Request PT/INR, Office (70329)Indication: Perimenopausal menorrhagia On: 7-Eah-016665:57 Request 17-HYDROXYPREGNENOLONE (05753)Indication: Perimenopausal menorrhagia On: 9-Dkv-056827:57 Request PROLACTIN (51330)Indication: Perimenopausal menorrhagia On: 5-Fam-658081:57 Request LIPID PANEL (77093)Indication: Benign essential hypertension On: 59-Wrb-417765:28 Request CCP ANTIBODY (23920)Indication: Acute rheumatoid arthritis On: : Request SED RATE ERYTHROCYTE (76575)Indication: Acute rheumatoid arthritis On: : Request C-REACTIVE PROTEIN (88853)Indication: Acute rheumatoid arthritis On: : Request TSH (38001)Indication: Acute rheumatoid arthritis On: : Request RHEUMATOID FACTOR-QUANT (67883)Indication: Acute rheumatoid arthritis On: Request ISIAH (ANTINUCLEAR ANTIBODY) (43060)Indication: Acute rheumatoid arthritis On: : Request URINALYSIS, W/ MICRO (86794)Indication: Benign essential hypertension On: : Request METABOLIC PANEL, COMPREHENSIVE (06240)Indication: Benign essential hypertension On: :20 Request LIPID PANEL (80515)Indication: Benign essential hypertension On: :20 Request CBC WITH MANUAL DIFF (79604)Indication: Benign essential hypertension On: :20 Request URINE ALISSON CULTURE (SRAVANI COL COUNT) (45658)Indication: Hematuria On: 30-Rbr-983913:04 Request METABOLIC PANEL, COMPREHENSIVE (69332)Indication: Nausea and vomiting On: :02 Request CBC WITH MANUAL DIFF (85892)Indication: Nausea and vomiting On: :02 Request Lipase (50180)Indication: Nausea and vomiting On: : Request Amylase (99686)Indication: Nausea and vomiting On: : Request OVA & PARASITE DIR SMEAR (04112)Indication: Diarrhea On: : Request C.Difficile, Stool (09887)Indication: Diarrhea On: : Request LEUKOCYTE COUNT, FECAL (52876)Indication: Diarrhea On: : Request ALISSON CULTURE-STOOL (40851)Indication: Diarrhea On: 30-Ijo-401237:01 Request TSH (95993)Indication: Depression On: 8-Fzz-249251:10 Request MICROALBUMIN: CREATININE RATIO (74430) AND (09016)Indication: Benign essential hypertension On: 4-Fzm-180166:10 Request METABOLIC PANEL, COMPREHENSIVE (46538)Indication: Benign essential hypertension On: 5-Utm-007967:10 Request LIPID PANEL ([id number])Indication: Benign essential hypertension On: :09 Request CBC WITH MANUAL DIFF ([id number])Indication: Benign essential hypertension On: :09 Request URINALYSIS W/O MICRO ([id number])Indication: Benign essential hypertension On: :39 Request MICROALBUMIN URINE QUANT ([id number])Indication: Benign essential hypertension On: :39 Request METABOLIC PANEL, COMPREHENSIVE ([id number])Indication: Benign essential hypertension On: :39 Request LIPID PANEL ([id number])Indication: Benign essential hypertension On: :39 Request ISIAH (ANTINUCLEAR ANTIBODY) ([id number])Indication: Fatigue On: :39 Request C-REACTIVE PROTEIN ([id number])Indication: Fatigue On: :39 Request CBC (AUTO) ([id number])Indication: Fatigue On: :39 Request Folate (65511)Indication: Fatigue On: :39 Request METABOLIC PANEL, COMPREHENSIVE ([id number])Indication: Fatigue On: :39 Request RHEUMATOID FACTOR-QUANT ([id number])Indication: Fatigue On: :39 Request SED RATE ERYTHROCYTE ([id number])Indication: Fatigue On: :39 Request TSH ([id number])Indication: Fatigue On: :39 Request VITAMIN B-12 (CYANOCOBALAMIN) ([id number])Indication: Fatigue On: :39 Request Planned Encounters Medical; VIP Pre Wellness Exam (DB Nurse) - On: 09-Mar-2018 11:00 [facility] JACKIE Bruno; MILDREDP Wellness Exam (Doctor) - On: 22-Mar-2018 10:15 [facility] Shasha Barker MD, MD, Dana M Planned Procedures MRI OF LUMBAR SPINE WITH AND WITHOUT On: 18-Jan-2018 Intent CONTRAST ([id number])By: Shasha Barker MD Comments: rule out cauda equina syndrome, back injection also in last momonth claude M Shasha Barker MD THYROID SCAN UPTAKE ([id number])By: On: 16-Nov-2017 Intent Shasha Barker MD, MD, [...] ([id number])By: Shasha Barker MD Comments: Lot # [id number] [facility] Radiology - ChestBy: Mj AL, On: 15-May-2017 Intent Shasha Ba MD Solu- Medrol Injection, 125mg On: 12-May-2017 Intent ([id number])By: Shasha Barker MD, MD, Dana M Aerosol Treatment ([id number])By: Mj On: 12-May-2017 Intent Shasha AL MD, Dana M EKG ([id number])By: Shasha Barker MD On: 12-Mar-2017 Intent Shasha [...] MD, Dana M XRAY LEFT SMALL TOE ([id number])By: On: 20-May-2016 Intent Shasha Barker MD, MD, Dana Comments: 5th digit focus on area of pain and get distal metatarsal bone M MAMMOGRAM BREAST BILATERAL SCREENING On: 06-May-2016 Intent DIGITAL ([id number])By: Shasha Barker MD, MD, Dana M DEXA SCAN AXIAL SKELETON ([id number])By: On: 06-May-2016 Intent Shasha Barker MD, MD, Dana M Ultrasound - RenalBy: Mj AL, On: 07-Aug-2015 Intent Shasha Ba MD Nuclear Stress Test/Stress On: 08-Jun-2015 Intent SPECT/AdenosineBy: Shasha Barker MD, MD, Dana M Radiology - ChestBy: Ophelia Boogie CNP On: 27-Feb-2015 Intent E Radiology - ChestBy: Ophelia Boogie CNP On: 05-Feb-2015 Intent E Ultrasound - PelvisBy: Chuyita ROSS, On: 19-Jul-2014 Intent Vero EKG ([id number])By: Shasha Barker MD On: 23-Jun-2013 Intent Shasha Barker MD Comments: see scanned document of test done to see results reviewed today with patient MAMMOGRAM, SCREENING, BOTH BREASTS On: 23-Jun-2013 Intent ([id number])By: Shasha Barker MD, MD, Dana M Eprescribed prescriptions ([id number])By: On: 23-Jun-2013 Intent Shasha Barker MD, MD, Dana M Radiology - Hand - BilateralBy: On: 10-Feb-2013 Intent Shasha Barker MD, MD, Dana Comments: copy to Dr. kiana Whitten Eprescribed prescriptions ([id number])By: On: 10-Feb-2013 Intent Long [employer], Riana L Eprescribed prescriptions ([id number])By: On: 11-Oct-2012 Intent Shasha Barekr MD, MD, Dana M EKG ([id number])By: Shasha Barker MD On: 11-Jun-2012 Intent Shasha Barker MD Eprescribed prescriptions ([id number])By: On: 11-Jun-2012 Intent Long [employer] BUSINESS DEVELOPMENT, Riana L CT - Abdomen & Pelvis (IV Contrast On: 12-Mar-2012 Intent Needed)By: Shasha Barker MD, MD, Dana M MAMMOGRAM, SCREENING, BOTH BREASTS On: 29-Apr-2011 Intent ([id number])By: Shasha Barker MD, MD, Dana M MAMMOGRAM, SCREENING, BOTH BREASTS On: 25-Apr-2011 Intent ([id number])By: Shasha Barker MD, MD, Dana M EKG ([id number])By: JACKIE Bruno On: 26-Aug-2010 Intent Ultrasound - GallbladderBy: Fast DO, On: 27-May-2010 Intent Philomena A Ultrasound - GallbladderBy: Fast DO, On: 24-May-2010 Intent Philomena A Doppler Ultrasound OtherBy: Augustine On: 25-Apr-2010 Intent Jeannette FARAH Comments: L lower extrrem- eval for clot and eval bakers cyst? size ? leaking ? Radiology - ChestBy: Mj AL, On: 23-May-2009 Intent Shasha Ba MD EKG ([id number])By: Shasha Barker MD On: 24-Apr-[address] - Brain/HeadBy: Shasha Barker MD On: 24-Apr-2009 Intent Shasha Gillespie MD EKG ([id number])By: Shasha Barker MD On: 14-Apr-2008 Intent Shasha Barker MD MAMMOGRAM, SCREENING, BOTH BREASTS On: 14-Apr-2008 Intent ([id number])By: Shasha Barker MD, MD, Dana M Ultrasound - PelvisBy: Mj AL, On: 23-Nov-2006 Intent Shasha Ba MD EKG ([id number])By: PEGGY ROSE CNP On: 10-Aug-2006 Intent Comments: NSR Planned Medications INJECTION, METHYLPREDNISOLONE SODIUM SUCCINATE, UP TO 125 MG Ordered: 12-May-2017 Pending Mj AL, Shasha Barker MD, Shasha Whitten INJECTION, METHYLPREDNISOLONE SODIUM SUCCINATE, UP TO 125 MG Ordered: 15-May-2017 Pending Mj AL, Shasha Barker MD, Shasha Whitten Instructions Name Dates Details BMI 31.0-31.9,adult : [...] Patient Instructions Indication: Impaired fasting glucose Encounters Office Visit On: 18-Jan-2018 15:10 Encounter Diagnosis: [...] (wellbutrin) and sleep disturbances. screenin g, colonoscopy (2016), screening, mammography, screening, Pap smear (2015, and [...] date: (04-07-11).Encounter Diagnosis: [facility] V73.21 (Renamed from [facility]) [facility] Office Visit On: 25-Apr-2011 [...] (311.), Fatigue (780.79), [facility] V73.21 (Renamed from [facility]) [facility] Annotation/Addendum On: 02-Oct-2010 14:02 [...] disturbance (368.9), Headache (784.0), Backache, unspecified (724.5), [facility] Office Visit On: 23-Nov-2006 [...] greater than left, use cockup splint, see juana in [place]--did ncs 1year ago--show CTS, xray of hand [...] Fatigue (780.79) [facility] Payers Maddie BLACKWOOD; ira guarantor
--- OUTSIDE RECORDS SUMMARY | 2018-05-29 01:01 | XMS RPT_ITS | Continuity of Care Document ---
:1960 Author Organization [facility] Address [address] [place] [address] Phone Care Team Providers Name Role Phone Mj AL, Shasha Whitten Unavailable Shahana Major Unavailable Jose L Chance Unavailable Stepan Ying Unavailable Dr. Juju Bales MD Unavailable Tita Miles Unavailable Rios Chinchilla Unavailable Dr. Cholo Taylor Unavailable Benson Delgado MD Unavailable Dr. Jose L Gutierrez Unavailable Sukumar Puckett Unavailable Espinoza Quan MD Unavailable Rolando Kern Unavailable Unavailable Hortensia Tinajero Unavailable May Fox Unavailable Unavailable Unavailable Unavailable Problems Name Dates Details Abnormal fasting glucose (R73.01, 790.29) Comments: change diet and exercise 6.2 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 Abnormal finding of kidney (R39.9, 593.9) Comments: will get CT and look at old CT she had hisotyr of issue as childseen on CT scan of abdomen, deformed upper pole of right kidney 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 Acute rheumatoid arthritis (M06.9, 714.0) Comments: seen veljeff then now wojno. now feel not get anywhere with wojno so will[facility] to [facility] Dr Sukumar Puckett. MRI stillshow and think this. and side effects from MTX. on zeljanz, humira, actemra and plaquenil p ast. seronegative. right now on azathioprine. not helping and thought about rituxan. will see what new rheum thinks. 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 Anxiety (F41.9, 300.00) Comments: much better than before now that not in severe pain in hip 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 Avascular necrosis of left femur (M87.052, 733.42) 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 Benign essential hypertension (I10, 401.1) Comments: she did cut back norvasc 1/2 because was low here and now back up high that getting better so willincrease back to full tablet. the norvasc was started in hospital when sick 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 BMI 30.0-30.9,adult (Z68.30, V85.30) 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 BMI 31.0-31.9,adult (Z68.31, V85.31) 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 Cerumen debris on tympanic membrane, left (H61.22, 380.4) 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 Chronic interstitial cystitis (N30.10, 595.1) Comments: right now doing well. not need the emiron has some at home if need. off imipramine because ? cause lung issue. not have pain not able to hold it 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 COPD with acute exacerbation (Renamed from Acute exacerbation of chronic obstructive airways disease) (J44.1, 491.21) Comments: what have now different then lung issue flare seem related to the infeciton. on 30 mg of prednisone alot of fliuds muinex will use inhaler not like aerosolo at home. 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 Degeneration of intervertebral disc of [...] left side. see basali did injection end 07-18. pain better but stillsome shooting pain. and not pain sarting again.. could inject again and PT. going to see spine surgeon/functional medicine at [facility] Dr Martínez 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 Deliveries (Parity) Comments: 2 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 Deliveries (Parity) Comments: 1 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 Depression (F32.9, 311) Comments: see above. 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 Encounter for general adult medical examination with abnormal findings (Z00.01, V70.0) Comments: [facility] -, summer 2015 pap, mammo due. colonscopy spring [...] ca se this would be the cause. [facility] -18 ? aspiration ? 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 Pain in left hip (M25.552, 719.45) Comments: at piroformis and ishcchial tuberosity and fell. rest nsaids 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 Postmenopausal (Renamed from Postmenopausal status) (Z78.0, V49.81) 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 Pregnancies () Comments: 3 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 Pulmonary hypertension (I27.20, 416.8) Comments: 52 on last echo. related to ILD. 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 S/P hip replacement, left (Z96.642, V43.64) 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 Subclinical hyperthyroidism (E05.90, 242.90) Comments: uptake scan norl delmi recheck. 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 Tobacco abuse (Z72.0, 305.1) 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 Urinary incontinence in female (R32, 788.30) Comments: it is better but still some. sending therapist to see her on this. elmiron help pain but expensive 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 Medications Name Dates Details Ambien CR 12.5 MG Oral Tablet Extended Release 1 Tablet ER at night prn for 0 days Quantity: 30 {Tablet} Refills: 3 Ordered:02-Apr-2018 Mj AL, Shasha Garcia MD, Shasha Whitten Start : 02-Apr-2018 Active Comments:-13-62 called to Dannielle OARRS reviewed AmLODIPine Besylate 5 MG Oral Tablet 1 [...] 50 MG Oral Tablet 3 (three) Tablet Tablet qd for 0 days Quantity: 90 {Tablet} Refills: 0 Ordered:30-Mar-2018 Shasha Barker MD, MD, Dana M Start [...] Extended Release 24 Hour 1 (one) Tablet Tablet 1-2 a day to help with incontinence prn for 0 days Quantity: 30 {Tablet} Refills: 0 Ordered:30-Mar-2018 Shasha Barker MD, MD, Dana M Start : 05-Jan-2018 Active Omeprazole 40 MG Oral Capsule Delayed Release 1 (one) Capsule bid for 0 days Quantity: 60 {Capsule} Refills: 4 Ordered:14-Jul-2017 Shasha Barker MD, MD, Dana M Start : 14-Jul-2017 Active Comments:take 30 minutes before meals PredniSONE 10 MG Oral Tablet 1 (one) Tablet qd for 0 days Quantity: 60 {Tablet} Refills: 0 Ordered:05-Jan-2018 Philomena Gibson DO Start : 05-Jan-2018 Active ProAir HFA 108 [...] Ultravate 0.05 % External Cream uad Application Application apply to affected nail bed bid for 2 weeks for 0 days Quantity: 30 {Gram} Refills: 0 Ordered:06-Jan-2018 Shasha Barker MD, MD, Dana M Start : 06-Jan-2018 Active Vitamin B Complex Oral Tablet 1 (one) Tablet Tablet daily for 0 days Quantity: 30 {Tablet} Refills: 0 Ordered:27-Jan-2017 JACKIE Bruno Start : 16-Oct-2016 Active Vitamin D3 5000 UNIT Oral Tablet 1 (one) Tablet qd for 0 days Quantity: 30 {Tablet} Refills: 0 Ordered:18-Aug-2016 Shasha Barker MD, MD, Dana M Start : 18-Aug-2016 Active Wellbutrin XL 300 [...] Quantity: 30 {Tablet} Refills: 0 Ordered:06-May-2016 Davin lBanton Start : 08-Jun-2015 End : 06-May-2016 Inactive [...] End : 14-Jul-2017 Inactive Comments: d/c per [facility] had fatgiue and GI upset CIPRO, [...] days Quantity: 30 {Capsule} Refills: 0 Ordered:06-Apr-2015 Chuyita ROSSOphelia Start [...] End : 14-Jul-2017 Inactive Comments: d/c per [facility] LEUCOVORIN CALCIUM, 15MG (Oral Tablet) 1 (one) Tablet once a week for 30 days Quantity: 30 {Tablet} Refills: 0 Ordered:21-Aug-2014 Chuyita ROSS Vero Start : 19-Jul-2014 End : 18-Aug-2014 Inactive Levaquin 500 MG Oral Tablet 1 (one) Tablet daily for 14 days Quantity: 14 {Tablet} Refills: 0 Ordered:12-May-2017 Shasha Barker MD, MD, Shasha Whitten Start : 12-May-2017 End : 26-May-2017 Inactive [...] Quantity: 50 {Rio} Refills: 0 Ordered:25-Feb-2010 Chuyita ROSS Ophelia Estrada Start : 29-Jan-2010 End : 08-Feb-2010 Inactive Hensel 7.5-325 MG Oral Tablet 1 (one) Tablet two times daily for 0 days Quantity: 60 {Tablet} Refills: 0 Ordered:26-Jan-2017 JACKIE Bruno Start : 26-Jan-2017 End : 26-Jan-2017 Inactive Hensel 7.5-325 MG Oral Tablet tid prn (7.5-325 [...] days Quantity: 90 {Capsule} Refills: 0 Ordered:06-Apr-2015 Ophelia Boogie CNP [...] days Quantity: 360 {Tablet} Refills: 0 Ordered:05-Mar-2015 Angelique JOSHIAmbreen Start : 07-Sep-2014 End : 02-Sep-2015 Inactive [...] Refills: 0 Ordered:25-Apr-2011 Shasha Barker MD, MD, Shasha Whitten Start : 25-Apr-2011 End : 25-Apr-2011 Discontinued [...] Quantity: 30 {Tablet} Refills: 3 Ordered:27-Feb-2015 Slarb DELINQUENT TAX COLLECTOR ASSISTANT, Ambreen Start : 07-Sep-2014 End : 27-Feb-2015 Discontinued LODINE XL, 400MG (Oral Tablet Extended Release 24 Hour) 1 two times daily for 0 days Refills: 0 Ordered:03-Apr-2010 Long Adama JOSHIn L End : 03-Apr-2010 Discontinued Comments:This order discontinued per [facility]. MELOXICAM, 7.5MG (Oral Tablet) qd prn (7.5 MG) End : 19-Jul-2014 Discontinued Comments:Dr. Tinajero METHOTREXATE, 2.5MG (Oral Tablet) 6 tabs once a week (2.5 MG) End : 27-Feb-2015 Discontinued Comments:Lior Nucynta ER 50mg qd End : 21-Oct-2011 Discontinued Comments:Dr. Callahan/Basali PLAQUENIL, 200MG (Oral Tablet) 1 (one) Tablet two times daily for 30 days Quantity: 30 {Tablet} Refills: 0 Ordered:27-Feb-2015 Slarb DELINQUENT TAX COLLECTOR ASSISTANT, Ambreen Start : 05-Feb-2015 End : 27-Feb-2015 Discontinued [...] bid for 0 days Refills: 0 Ordered:29-Jan-2010 Briana Collins LPN End : 29-Jan-2010 Discontinued Comments:This order discontinued per -. Wellbutrin SR 150 MG Oral Tablet Extended [...] (R79.9, 790.6) Comments: tsh off will call [facility] and get leaves will follow Status: Resolved as of 15-May-2017 Abnormal finding on radiology exam (R93.8, 793.99) Comments: remains on levaquin and prednisone seeing Dr. Deangelo vallecillo in [place] next week. 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 2-17 had hemangioma so ? same size. radiology look through and all the same Status: Resolved as of 18-Aug-2017 Low back pain (M54.5, 724.2) Comments: injection in back Dr. taylor few weeks ago last 1 week Status: Inactive as of 20-May-2016 Nausea and vomiting (R11.2, 787.01) Status: Inactive as of 11-Oct-2012 Neck pain (M54.2, 723.1) Status: Inactive as of 12-Mar-2012 Obesity, unspecified (E66.9, 278.00) Comments: talk about [...] inside ?olyp ? adenomyosis. ? endometriosis to compliance manager Status: Inactive as of 15-Mar-2015 Perimenopausal menorrhagia [...] as of 15-Mar-2015 WWV V73.21 (Renamed from WW) Comments: scope at 52 recommend but refusing must do right now refuse mammo and pap. wrote for mammo just in case will get Status: Inactive as of 15-Mar-2015 Yeast infection (B37.9, 112.9) Status: Inactive as of 15-Mar-2015 Procedures Procedure Dates Details ARTHROPLASTY, HIP, TOTAL (32988) Completed Comments: left @ [facility] 03-18-18 Dr. Wendy Mckoy Carpal Tunnel b/l wrist Completed Colonoscopy, Screening Completed Comments: 01-01-[address] Gutierrez Dilation and Curettage of Uterus Completed Nov-2015 kidney sx as infant Completed partial knee replacement -- Left Leg Completed .2010 right lobe resection-lung Completed Comments: February 2015 Date Value Details 10-Feb-2018 Lower Ext Joint Only W/WO Cont Result: Comments: See Note; NOTES: [facility] Imaging Services [address] [place] [address] Lower Ext Joint Only W/WO Cont MR#: [id number] Acct: [id number] Name: TIN BLACKWOOD Rep # : [id number] : 1960 F 57 From: Kadie Dailey MD PCP: Shasha Barker MD Status: REG CLI Study: Lower Ext Joint Only W/WO Cont Date of Exam: 02/10/18 Exam# [id number] Ordering Dr: CARLOS SHELBY M.D. STUDY: MRI [...] Dailey MD at 6:06 EDT , S ervice support , CC: CARLOS SHELBY M.D.; Shasha Barker MD Hearing Care Practitioner: Signed 28-Jan-2018 Chest without Contrast Result: Comments: See Note; NOTES: [facility] Imaging Services [address] [place] [address] Chest without Contrast MR#: [id number] Acct: [id number] Name: TIN BLACKWOOD Rep #: [id number] : 1960 F 57 From: Vazquez Kaye MD PCP: Shasha Barker MD Status: REG CLI Study: Chest without Contrast Date of Exam: 01/28/18 Exam# [id number] Ordering Dr: Pelon Chatterjee MD STUDY: CT [...] CC: Shasha Barker MD; Pelon Chatterjee MD Hearing Care Practitioner: Signed 20-Jan-2018 Emergency Department Summary Result: Comments: See Note; NOTES: [facility] Medical Records Department [address] [place] [address] Emergency Department Summary 01/19/18 1534 MR#: [id number] Acct: [id number] Name: TIN BLACKWOOD Rep #: [id number] : 1960 57 From: Rolando Mc MD [...] Lumbar radiculopathy This note was generated with [employer] dictation software. It may contain incorrect words, [...] your Primary Care Provider. Call [facility] ([phone]) or report t o the closest Emergency Room. Call 911 if necessary. 01/20/18 0235 <Electronically signed by Rolando Mc MD> Date Rolando Mc MD Cosigner Signature (If Indicated): Date CC: Shasha Barker MD 19-Jan-2018 Spine Lumbar (Routine) Result: Comments: See Note; NOTES: [facility] Imaging Services [address] [place] [address] Spine Lumbar (Routine) MR#: [id number] Acct: [id number] Name: TIN BLACKWOOD Rep #: [id number] : 1960 F 57 From: Nabeel Bernabe MD PCP: Shasha Barker MD Status: REG ER Study: Spine Lumbar (Routine) Date of Exam: 01/19/18 Exam# [id number] Ordering Dr: Rolando Mc MD STUDY: MRI [...] , CC: Shasha Barker MD; Rolando Mc Hearing Care Practitioner: Signed 19-Jan-2018 Spine Lumbar (Routine) Result: Comments: See Note; NOTES: [facility] Imaging Services [address] [place] [address] Spine Lumbar (Routine) MR#: [id number] Acct: [id number] Name: TIN BLACKWOOD Rep #: [id number] : 1960 F 57 From: Nabeel Bernabe MD PCP: Shasha Barker MD Status: [facility] Study: Spine Lumbar (Routine) Date of Exam: 01/19/18 Exam# [id number] Ordering Dr: Rolando Mc MD STUDY: MRI [...] , CC: Shasha Barker MD; Rolando Mc Hearing Care Practitioner: Signed 10-Dec-2017 Lower Ext/No Jt/w/o Result: Comments: See Note; NOTES: [facility] Imaging Services [address] [place] [address] Lower Ext/No Jt/w/o MR#: [id number] Acct: [id number] Name: TIN BLACKWOOD Rep #: [id number] : 1960 F 56 From: Julio Cannon MD PCP: Shasha Barker MD Status: REG CLI Study: Lower Ext/No Jt/w/o Date of Exam: 12/10/17 Exam# [id number] Ordering Dr: Nabeel Danielle DPM STUDY: MRI [...] of the medial cuneiform, series 5 image /. There is cystic change at the base of the first metatarsal. There is moderate heterogeneous marrow edema of the base and shaft of the first m etatarsal, series 4 images 10/29 through 01/29. There is marrow edema of the base and shaft of the second metatarsal, series 4 image /. There is mild marrow edema at the [...] CC: Shasha Barker MD; Nabeel Danielle DPM Hearing Care Practitioner: Signed 18-Nov-2017 Thyroid Uptake Single or Mult Result: Comments: See Note; NOTES: [facility] Imaging Services [address] [place] [address] Thyroid Uptake Single or Mult MR#: [id number] Acct: [id number] Name: TIN BLACKWOOD Rep #: [id number] : 1960 F 56 From: Asif Pagan DO PCP: Shasha Barker MD Status: REG CLI Study: Thyroid Uptake Single or Mult Date of Exam: 11/18/17 Exam# [id number] Ordering Dr: Shasha Barker MD C LINICAL: [...] to the presence of visualized th yroid uqpcjre-V-dodjju thyroid gland. 3. No hypofunctioning, cold nodules are identified. Electronically Signed: Asif Pagan DO at 22:10 EDT Tel , Service support [phone], CC: Shasha Barker MD Hearing Care Practitioner: Signed 16-Nov-2017 Spine Cervical (Routine) Result: Comments: See Note; NOTES: [facility] Imaging Services [address] [place] [address] Spine Cervical (Routine) MR#: [id number] Acct: [id number] Name: TIN BLACKWOOD Rep #: [id number] : 1960 F 56 From: Andrew Duran DO PCP: Shasha Barker MD Status: REG CLI Study: Spine Cervical (Routine) Date of Exam: 11/16/17 Exam# [id number] Ordering Dr: More Taylor MD STUDY: MRI [...] CC: More Taylor MD; Shasha Barker MD Hearing Care Practitioner: Signed 03-Nov-2017 Pelvis 1 or 2 Views Result: Comments: See Note; NOTES: [facility] Imaging Services [address] [place] [address] Pelvis 1 or 2 Views MR#: [id number] Acct: [id number] Name: TIN BLACKWOOD Indra Rep #: [id number] : 1960 F 56 From: Vale Godoy MD PCP: Shasha Barker MD Status: REG CLI Study: Pelvis 1 or 2 Views Date of Exam: 11/03/17 Exam# [id number] Ordering Dr: Shasha Barker MD STUDY: X-RAY [...] at 17:01 EDT Tel , Service support [phone], CC: Shasha Barker MD Hearing Care Practitioner: Signed 27-Aug-2017 Orb Sella Post Fossa Ear w/o Result: Comments: See Note; NOTES: [facility] Imaging Services [address] [place] [address] Orb Sella Post Fossa Ear w/o MR#: [id number] Acct: [id number] Name: TIN BLACKWOOD Rep #: [id number] : 1960 F 56 From: Nir Dudley MD PCP: Shasha Barker MD Status: REG CLI Study: Orb Sella Post Fossa Ear w/o Date of Exam: 08/27/17 Exam# [id number] Ordering Dr: Dale Zuniga STUDY: CT TEMPORAL [...] CC: Beni Zuniga MD; Shasha Barker MD Hearing Care Practitioner: Signed 25-May-2017 Chest PA and Lateral Result: Comments: See Note; NOTES: [facility] Imaging Services [address] [place] [address] Chest PA and Lateral MR#: [id number] Acct: [id number] Name: TIN BLACKWOOD Rep #: [id number] : 1960 F 56 From: Aguilar Joaquin MD PCP: Shasha Barker MD Status: REG RCR Study: Chest PA and Lateral Date of Exam: 05/25/17 Exam# [id number] Ordering Dr: Pelon Chatterjee MD STUDY: X-RAY [...] Aguilar Joaquin MD at 19:35 EST Tel [phone], Service support , CC: Shasha Barker MD; Pelon Chatterjee MD Hearing Care Practitioner: Signed 15-May-2017 Chest PA and Lateral Result: Comments: See Note; NOTES: [facility] Imaging Services [address] [place] [address] Chest PA and Lateral MR#: [id number] Acct: [id number] Name: TIN BLACKWOOD Rep #: [id number] : 1960 F 56 From: Patrice Pinto MD PCP: Shasha Barker MD Status: REG CLI Study: Chest PA and Lateral Date of Exam: 05/15/17 Exam# [id number] Ordering Dr: Shasha Barker MD STUDY: X-RAY [...] Service support , CC: Shasha Barker MD Hearing Care Practitioner: Signed 21-Jan-2017 Emergency Department Summary Result: Comments: See Note; NOTES: [facility] Medical Records Department [address] [place] [address] Emergency Department Summary 01/20/17 2344 MR#: [id number] Acct: [id number] Name: TIN BLACKWOOD Rep #: [id number] : 1960 56 From: Christian Hemphill PCP: [...] for ED Patient: Disposition: Acute Care [facility] Chief Complaint: Shortness of Breath Diagnosis: Pulmonary fibro sis, Hypoxemia, Elevated troponin, Pulmonary nodule, right Referrals: Shasha Barker MD [Primary Care Provider] - What to do if you have Problems For any increased pain, shortness of breath, bleedin g, nausea or vomiting, chest pain, or any unexpected problems, contact your Primary Care Provider. Call [facility] ([phone]) or report to the closest Emergency Room. Call 911 if necessary. 01/21/17 0231 <Electronically signed by Christian Hemphill> Date Christian Hemphill Cosigner Signature (If Indicated): Date CC: Shasha Barker MD 21-Jan-2017 CTA Chest W/WO Contrast Result: Comments: See Note; NOTES: [facility] Imaging Services [address] [place] [address] CTA Chest W/WO Contrast MR#: [id number] Acct: [id number] Name: TIN BLACKWOOD Rep #: [id number] : 1960 F 56 From: Stepan Mayberry MD PCP: Shasha Barker MD Status: REG ER Study: CTA Chest W/WO Contrast Date of Exam: 01/21/17 Exam# [id number] Ordering Dr: Christian Schrader DO STUDY: CTA [...] , CC: Shasha Barker MD; Christian Schrader Hearing Care Practitioner: Signed 20-Jan-2017 Chest PA and Lateral Result: Comments: See Note; NOTES: [facility] Imaging Services [address] [place] [address] Chest PA and Lateral MR#: [id number] Acct: [id number] Name: TIN BLACKWOOD Rep #: [id number] : 1960 F 56 From: Stepan Mayberry MD PCP: Shasha Barker MD Status: REG ER Study: Chest PA and Lateral Date of Exam: 01/20/17 Exam# [id number] Ordering Dr: Christian Schrader DO STUDY: X-RAY [...] , CC: Shasha Barker MD; Christian Schrader Hearing Care Practitioner: Signed 21-Nov-2016 PT D/C Summary (1) Result: Comments: See Note; NOTES: [facility] Physical Therapy [facility] [place] [address] Fax REHABILITATION SERVICES DISCHMN GE SUMMARY MR#: [id number] Acct: [id number] Name: TIN BLACKWOOD Rep #: [id number] : 1960 55 From: Yury Lawrence PT, Cert. MDT, OCS Referring Dr.: Shasha Barker MD Status: REG RCR Insurance: A [facility] - PT D/C Summary It has been [...] please feel free to call me at [phone]. Thank you for the referral of this patient. Sincerely, Yury Lawrence PT, <Electronically signed by Cert. ANNA Simms PT, OCS> 11/21/16 1533 CC: Shasha Barker MD DANICAA Signed 22-Oct-2016 Inital Evaluation (1) - PT Result: Comments: See Note; NOTES: [facility] Physical Therapy [facility] [address] [place] [address] Fax REHABILITATION SERVICES INITIAL EVALUATION MR#: [id number] Acct: [id number] Name: TIN BLACKWOOD Rep #: [id number] : 1960 55 From: Cert. ANNA Simms PT, OCS Referring Dr.: Shasha Barker MD Status: REG RCR Insurance: [employer] Patient's Visit Information TIN BLACKWOOD is a [...] to be FAXED BACK to us at [phone] for Medicare purposes. Please let me know [...] and Lateral Result: Comments: See Note; NOTES: [facility] Imaging Services [address] [place] [address] Verdana 4d Chest PA and Lateral MR#: [id number] Acct: [id number] Name: TIN BLACKWOOD Rep #: [id number] : 1960 F 55 From: Hair Rogers MD PCP: Shasha Barker MD Status: REG CLI Study: Chest PA and Lateral Date of Exam: 09/11/16 Exam# [id number] Ordering Dr: Pelon Chatterjee MD STUDY: X-RAY [...] CC: Shasha Barker MD; Pelon Chatterjee MD Hearing Care Practitioner: Signed 18-Aug-2016 Foot min 3 Views Result: Comments: See Note; NOTES: [facility] Imaging Services [address] [place] [address] Verdana 4d Foot min 3 Views MR#: [id number] Acct: [id number] Name: TIN BLACKWOOD Rep #: [id number] : 1960 F 55 From: Smith Delaney MD PCP: Shasha Barker MD Status: REG CLI Study: Foot min 3 Views Date of Exam: 08/18/16 Exam# [id number] Ordering Dr: Shasha Barker MD STUDY: X-RAY - [facility]ICAL: Female, 55 years old. Fell [...] Service support , CC: Shasha Barker MD Hearing Care Practitioner: Signed 05-Aug-2016 Chest 1 View (Portable) Result: Comments: See Note; NOTES: [facility] Imaging Services [address] [place] [address] Verdana 4d Chest 1 View (Portable) MR#: [id number] Acct: [id number] Name: TIN BLACKWOOD Rep #: [id number] : 1960 F 55 From: Aguilar Joaquin MD PCP: Shasha Barker MD Status: REG ER Study: Chest 1 View (Portable) Date of Exam: 08/05/16 Exam# [id number] Ordering Dr: Regino Hinson MD STUDY: X-RAY [...] Aguilar Joaquin MD at 9:42 EDT Tel [phone], Service support [phone], CC: Shasha Barker MD; Regino Hinson MD Hearing Care Practitioner: Signed 01-Jul-2016 Chest WITH Contrast Result: Comments: See Note; NOTES: [facility] Imaging Services [address] [place] [address] Verdana 4d Chest WITH Contrast MR#: [id number] Acct: [id number] Name: TIN BLACKWOOD Rep #: [id number] : 1960 F 55 From: Keyshawn Unger DO PCP: Shasha Barker MD Status: REG CLI Study: Chest WITH Contrast Date of Exam: 07/01/16 Exam# [id number] Ordering Dr: Shasha Barker MD STUDY: CT [...] of the right kidney Electronically Signed: Keyshawn Unger DO at 22:47 EST Tel , Service support , CC: Shasha Barker MD Hearing Care Practitioner: Signed 17-Jun-2016 Spine Cervical (Routine) Result: Comments: See Note; NOTES: [facility] Imaging Services [address] [place] [address] Vertracy 4d Spine Cervical (Routine) MR#: [id number] Acct: [id number] Name: TIN BLACKWOOD Barbara p #: [id number] : 1960 F 55 From: Kadie Dailey MD PCP: Shasha Barker MD Status: REG CLI Study: Spine Cervical (Routine) Date of Exam: 06/17/16 Exam# [id number] Ordering Dr: More Taylor MD STUD Y: [...] MD at 11:29 EST , Service support [phone], CC: More Taylor MD; Shasha Barker MD Hearing Care Practitioner: Signed 17-Jun-2016 Spine Thoracic (Routine) Result: Comments: See Note; NOTES: [facility] Imaging Services [address] [place] [address] Verdana 4d Spine Thoracic (Routine) MR#: [id number] Acct: [id number] Name: TIN BLACKWOOD #: [id number] : 1960 F 55 From: Kadie Dailey MD PCP: Shasha Barker MD Status: REG CLI Study: Spine Thoracic (Routine) Date of Exam: 06/17/16 Exam# [id number] Ordering Dr: More Taylor MD STUD Y: [...] MD at 11:55 EST , Service support [phone], CC: Ira Taylor MD; Shasha Barker MD Hearing Care Practitioner: Signed 29-May-2016 Dexa Bone Density Study (HP) Result: Comments: See Note; NOTES: [facility] Imaging Services [address] [place] [address] Verda 4d Dexa Bone Density Study () MR#: [id number] Acct: [id number] Name: ELISSA BLACKWOOD Rep #: [id number] : 1960 F 55 From: Aguilar Joaquin MD PCP: Shasha Barker MD Status: [facility] Study: Dexa Bone Density Study (HP) Date of Exam: 05/29/16 Exam# [id number] Ordering Dr: Shasha Barker MD STUDY: DUAL [...] Aguilar Joaquin MD at 13:27 EST Tel [phone], Service support [phone], CC: Shasha Barker MD Hearing Care Practitioner: Signed 29-May-2016 SCREENING MAMM (CAD), BILAT Result: Comments: See Note; NOTES: [facility] Imaging Services [address] [place] [address] Verdana 4d SCREENING MAMM (CAD), BILAT MR#: [id number] Acct: [id number] Name: TIN BLACKWOOD Rep #: [id number] : 1960 F 55 From: Aguilar Joaquin MD PCP: Shasha Barker MD Status: REG CLI Study: SCREENING MAMM (CAD), BILAT Date of Exam: 05/29/16 Exam# [id number] Ordering Dr: Yoana Barker MD MAMMOGRAPHY - [...] delay biopsy of a clinically suspicious abnormality. [id number] Electronically Signed: Aguilar Joaquin MD at 15:18 EST Tel [phone], Service support [phone], CC: Shasha Barker MD Hearing Care Practitioner: Signed 29-Nov-2015 NCS and/or EMG Patient Result: Comments: See Note; NOTES: [facility] Pulmonary Services/Neurology [address] [place] [address] NCS and/or EMG Patient MR#: [id number] Acct: [id number] Name: TIN BLACKWOOD Rep #: [id number] : 1960 54 From: Lucas Kiser MD Referring Dr: More Taylor MD Status: REG CLI Ordering Dr: More Taylor MD Date: 11/27/15 Location: [facility] Sex: F C DATE OF SE RVICE: [...] radiculopathy. Lucas hand MD T: NTS JOB: [id number] 11/29/15 0959 <Electronically signed by Lucas Kiser MD> Date Lucas Kiser MD CC: More Taylor MD; Shasha Barker MD; Lucas Kiser MD Date Dictated: 11/27/15 1145 Date Transcribed: 11/27/15 1145 Hearing Care Practitioner: Signed 12-Oct-2015 Spine Lumbar (Routine) Result: Comments: See Note; NOTES: [facility] Imaging Services [address] [place] [address] Verdana 4d Spine Lumbar (Routine) MR#: [id number] Acct: [id number] Name: TIN BLACKWOOD Rep #: [id number] : 1960 F 54 From: Nabeel Bernabe MD PCP: Shasha Barker MD Status: REG CLI Study: Spine Lumbar (Routine) Date of Exam: 10/12/15 Exam# [id number] Ordering Dr: More Taylor MD STUDY: MRI [...] MD at 20:50 EDT , Service support [phone], CC: More Taylor MD; Shasha Barker MD Hearing Care Practitioner: Signed 12-Oct-2015 Lumbar Spine 2 or 3 Views Result: Comments: See Note; NOTES: [facility] Imaging Services [address] [place] [address] Verdana 4d Lumbar Spine 2 or 3 Views MR#: [id number] Acct: [id number] Name: TIN LLOYD Rep #: [id number] : 1960 F 54 From: Smith Delaney MD PCP: Shasha Barker MD Status: REG CLI Study: Lumbar Spine 2 or 3 Views Date of Exam: 10/12/15 Exam# [id number] Ordering Dr: More Watts MD STUDY: X-RAY [...] FACR at 8:27 EDT , Service support [phone], RAD/Lumbar Spine 2 or 3 Views IMPRESSION: Degenerative disc disease at L4-5 and L5-S1 with facet arthrosis. No significant changes since the prior study. Electronically Signed: Smith Delaney MD, FACR at 8:27 EDT , Service support [phone], CC: More Taylor MD; Shasha Barker MD Hearing Care Practitioner: Signed 12-Oct-2015 Thoracic Spine 3 Views Result: Comments: See Note; NOTES: [facility] Imaging Services [address] [place] [address] Verda 4d Thoracic Spine 3 Views MR#: [id number] Acct: [id number] Name: TIN BLACKWOOD Rep #: [id number] : 1960 F 54 From: Smith Delaney MD PCP: Shasha Barker MD Status: REG CLI Study: Thoracic Spine 3 Views Date of Exam: 10/12/15 Exam# [id number] Ordering Dr: More Taylor MD STUDY: X-RAY - THORACIC SPINE REASON FOR EXAM: Female, 54 years old. Back and leg pain TECHNIQUE: 3 view(s) of the thoracic spine were obtained. COMPARISON: None. FINDINGS: Normal kyphosis of the thoracic spine. There is no substantial scoliosis. There is multilevel endplate spondylosis of the thoracic vertebrae. There is multilevel disc sp ikmberli narrowing of the thoracic spine. The soft tissue structures are unremarkable. IMPRESSION: Thoracic spondylosis with multilevel degenerative disc disease E lectronically Signed: Smith Delaney MD, FACR at 8:26 EDT , Service support [phone], 0082 RAD/Thoracic Spine 3 Views IMPRESSION : Thoracic spondylosis with multilevel degenerative disc disease Electronically Signed: Smith Delaney MD, FACR at 8:26 EDT , Service support [phone], Fax CC: More Taylor MD; Shasha Barker MD Hearing Care Practitioner: Signed 03-Oct-2015 Chest PA and Lateral Result: Comments: See Note; NOTES: [facility] Imaging Services [address] [place] [address] [facility] 4d Chest PA and Lateral MR#: [id number] Acct: [id number] Name: Hero BLACKWOOD Rep #: [id number] : 1960 F 54 From: Aguilar Joaquin MD PCP: Shasha Barker MD Status: REG CLI Study: Chest PA and Lateral Date of Exam: 10/03/15 Exam# [id number] Ordering Dr: Hortensia Mcnamara i, MD STUDY: X-RAY CHEST REASON FOR EXAM: Female, 54 years old. History of rheumatoid arthritis. TECHNIQUE: PA and lateral views of the chest. COMPARISON: Comparison is made with prior s olivia dated February 27, 2015. FINDINGS: Since prior [...] Aguilar Joaquin MD at 12:56 EDT Tel [phone], Service support [phone], RAD/Chest PA and Lateral IMPRESSION: Minimal degree of res idual increased markings at the lung bases as compared to prior study. Electronically Signed: Aguilar Joaquin MD at 12:56 EDT Tel [phone], Service support [phone], Fax CC: Shasha Barker MD; Hortensia Tinajero MD Hearing Care Practitioner: Signed 05-Sep-2015 Kidney and Bladder Result: Comments: See Note; NOTES: [facility] Imaging Services [address] [place] [address] Verdana 4d Kidney and Bladder MR#: [id number] Acct: [id number] Name: KARINA BLACKWOOD Rep #: [id number] : 1960 F 54 From: Aguilar Joaquin MD PCP: Shasha Barker MD Status: REG CLI Study: Kidney and Bladder Date of Exam: 09/05/15 Exam# [id number] Ordering Dr: Sacha Barker MD STUDY: RENAL [...] Aguilar Joaquin MD at 10:56 EDT Tel [phone], Service support [phone], CC: Shasha Barker MD Hearing Care Practitioner: Signed 22-Jun-2015 Nuclear Stress Test - Chemical Result: Comments: See Note; NOTES: [facility] Imaging Services [address] [place] [address] Verdana 4d Nuclear Stress Test - Chemical MR#: [id number] Acct: [id number] N miguel: TIN BLACKWOOD Rep #: [id number] : 1960 54 From: Dusty Lund MD [...] Preserved ejection fraction. Dusty Lund MD T: NTS JOB: [id number] 06/26/15 1259 & #60;Electronically signed by Dusty Lund MD> Date Dusty Lund MD CC: Shasha Barker MD Date Dictated: 06/22/151819 Date Transcribed: 06/22/151819 Hearing Care Practitioner: Signed 13-Jun-2015 Lumbar Spine 2 or 3 Views Result: Comments: See Note; NOTES: [facility] Imaging Services [address] [place] [address] Verdana 4d Lumbar Spine 2 or 3 Views MR#: [id number] Acct: [id number] Name: TIN LLOYD Rep #: [id number] : 1960 F 54 From: Smith Delaney MD PCP: Shasha Barker MD Status: REG CLI Study: Lumbar Spine 2 or 3 Views Date of Exam: 06/13/15 Exam# [id number] Ordering Dr: More Watts MD STUDY: X-RAY [...] FACR at 11:06 EST , Service support [phone], RAD/Lumbar Spine 2 or 3 Views IM PRESSION: Degenerative disc disease at L4-5 and L5-S1. Electronically Signed: Smith Delaney MD, FACR at 11:06 EST , Service support [phone], CC: More Taylor MD; Shasha Barker MD Hearing Care Practitioner: Signed 13-Jun-2015 Thoracic Spine 3 Views Result: Comments: See Note; NOTES: [facility] Imaging Services [address] [place] [address] Verdana 4d Thoracic Spine 3 Views MR#: [id number] Acct: [id number] Name: TIN BLACKWOOD Rep #: [id number] : 1960 F 54 From: Smith Delaney MD PCP: Shasha Barker MD Status: REG CLI Study: Thoracic Spine 3 Views Date of Exam: 06/13/15 Exam# [id number] Ordering Dr: More Taylor MD ADDENDUM by Smith Delaney MD on 06/14/15 at 1105 ADDENDUM TECHNIQUE: 3 view(s) o f the thoracic spine were obtained. Electronically Signed: Smith Delaney MD, FACR at 11:05 EST , Service support [phone], 06/14/15 1105 Date cc: More Taylor MD; [...] FACR at 11:05 EST , Service support [phone], RAD/Thoracic S pine 3 Views IMPRESSION: Thoracic spondylosis Electronically Signed: Smith Delaney MD, FACR at 11:05 EST , Service support [phone], CC: More Taylor MD; Shasha Barker MD Hearing Care Practitioner: Signed 13-Jun-2015 Thoracic Spine 3 Views Result: Comments: See Note; NOTES: [facility] Imaging Services [address] [place] [address] Verdana 4d Thoracic Spine 3 Views MR#: [id number] Acct: [id number] Name: TIN BLACKWOOD Rep #: [id number] : 1960 F 54 From: Smith Delaney MD PCP: Shasha Barker MD Status: REG CLI Study: Thoracic Spine 3 Views Date of Exam: 06/13/15 Exam# [id number] Ordering Dr: More Taylor MD STUDY: X-RAY [...] FACR at 11:05 EST , Service support [phone], RAD/Thoracic Spine 3 Views IMPRESSION: Thoracic spondylosis Electronic ally Signed: Smith Delaney MD, FACR at 11:05 EST , Service support [phone], CC: More Taylor MD; Shasha Barker MD Hearing Care Practitioner: Signed 08-Jun-2015 EKG (60584) Result: [MEASUREMENTS ANALYSIS] Date of Test: 06/08/2015 13:15:12; Heart Rate: 96; ME Interval: 130; QRS: 88; QT Interval: 340; Corrected QT Interval (QTc): 403; P Wave Bernie: 48; QRS Wave Bernie: 32; T Wave Bernie: 36; Blood Pressure: 120/80 [ECG DIAGNOSTIC STATEMENTS] Date of Test: 06/08/2015 13:15:12; Summary: Sinus Rhythm WITHIN NORMAL LIMITS [MEASUREMENTS ANALYSIS] Date of Test: 06/08/2015 13:14:43; Heart Ra te: 97; ME Interval: 126; QRS: 88; QT Interval: 340; Corrected QT Interval (QTc): 404; P Wave Bernie: 51; QRS Wave Bernie: 31; T Wave Bernie: 40; Blood Pressure: 120/80 [ECG DIAGNOSTIC STATEMENTS] Date of Supriya t: 06/08/2015 13:14:43; Summary: Sinus Rhythm WITHIN NORMAL LIMITS 27-Feb-2015 Chest PA and Lateral Result: Comments: See Note; NOTES: [facility] Imaging Services [address] [place] [address] Verdana 4d Chest PA and Lateral MR#: [id number] Acct: [id number] Name: Hero BLACKWOOD Rep #: [id number] : 1960 F 54 From: Aguilar Joaquin MD PCP: Shasha Barker MD Status: REG CLI Study: Chest PA and Lateral Date of Exam: 02/27/15 Exam# [id number] Ordering Dr: Ophelia Boogie STUDY: X-RAY CHEST REASON FOR EXAM: Female, 54 years old. The patient has a history of chronic interstitial lung disease. Chronic shortness of breath. TECHNIQUE: PA and lateral views of e chest. COMPARISON: Comparison is made with [...] Aguilar Joaquin MD at 13:45 EDT Tel [phone], Service support [phone], RAD/Chest PA and Lateral IMPRES TABBY: Persistent interstitial disease in keeping with known scarring. Improved aeration of both lungs with residual infiltrate in the peripheral aspect of the right lung. Electronically Signed: Darryl Joaquin MD at 13:45 EDT Tel [phone], Service support [phone], CC: Ophelia Boogie; Shasha Barker MD Hearing Care Practitioner: Signed 05-Feb-2015 Chest PA and Lateral Result: Comments: See Note; NOTES: [facility] Imaging Services [address] [place] [address] Radiology Report MR#: [id number] Acct: [id number] Name: TIN BLACKWOOD Rep #: [id number] : 1960 F 54 From: Vega Payan MD PCP: Shasha Barker MD Status: REG CLI Study: Chest PA and Lateral Date of Exam: 02/05/15 Exam# [id number] Ordering Dr: Ophelia Boogie STUDY: X-RAY C [...] Vega Payan MD at 17:03 EDT Tel [phone], Service support [phone], -[phone] RAD/Chest PA and Lateral IMPRESSION: 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 Recommend followup till clear. Electronically Signed: Vega Payan MD a t 17:03 EDT Tel [phone], Service support [phone], CC: Ophelia Boogie; Shasha Barker MD Hearing Care Practitioner: Signed 06-Nov-2014 Operative Report Result: Comments: See Note; NOTES: [facility] Medical Records Department [address] [place] [address] Operative Report MR#: [id number] Acct: [id number] Name: TIN BLACKWOOD Rep #: [id number] : 1960 53 From: Allie Bales MD PCP: Shasha Barker MD Status: [facility] DATE OF SERVICE: 11/06/2014 DATE OF SERVICE: [...] 1-2 weeks' time. Allie Bales MD T: GUILLAUME JOB: [id number] 11/06/14 1424 <Electronically signed by Allie Bales MD> Raul e Allie Bales MD CC: Allie Bales MD; Shasha Barker MD Date Dictated: 11/06/14 1231 Date Transcribed: 11/06/14 1231 Hearing Care Practitioner: Signed 06-Nov-2014 Discharge Instruction Result: Comments: See Note; NOTES: [facility] Medical Records Department [address] [place] [address] Instructions for Home/Discharge Instructions 11/06/14 1204 MR#: [id number] ct: [id number] Name: TNI BLACKWOOD Rep #: [id number] : 1960 53 From: Allie Bales MD PCP: Shasha Barker MD Status: REG [facility] Discharge Diet: No [...] Operative Report Result: Comments: See Note; NOTES: [facility] Medical Records Department [address] [place] [address] Operative Report 11/06/14 1202 MR#: [id number] Acct: [id number] Name: TIN BLACKWOOD Rep #: [id number] : 1960 53 From: Allie Bales MD PCP: Shasha Barker MD Status: REG NVC Y Location: [place] [address] Operative Report (Blank) Date of Procedure: 11/06/14 Preop: Mary rrhagia, thickened endometrium Postop: Same Procedure: D [...] Transvaginal Non- Result: Comments: See Note; NOTES: [facility] Imaging Services [address] [place] [address] Ultrasound Report MR#: [id number] Acct: [id number] Name: TIN BLACKWOOD Rep #: [id number] : 1960 F 53 From: Aguilar Joaquin MD PCP: Shasha Barker MD Status: REG CLI Study: Transvaginal Non- Date of Exam: 07/24/14 Exam# [id number] Ordering Dr: Ophelia Boogie STUDY: ULTRASOUND OF [...] Aguilar Joaquin MD at 10:36 EDT Tel [phone], Service support [phone], CC: Ophelia Boogie; Shasha Barker MD Hearing Care Practitioner: Signed 24-Jul-2014 Pelvic (Non ) Result: Comments: See Note; NOTES: [facility] Imaging Services [address] [place] [address] Ultrasound Report MR#: [id number] Acct: [id number] Name: TIN BLACKWOOD Rep #: [id number] : 1960 F 53 From: Aguilar Joaquin MD PCP: Shasha Barker MD Status: REG CLI Study: Pelvic (Non ) Date of Exam: 07/24/14 Exam# [id number] Ordering Dr: Ophelia Boogie STUDY: ULTR ASOUND [...] Darryl Joaquin MD at 10:36 EDT Tel [phone], Service support [phone], CC: Ophelia Boogie; Shasha Barker MD Hearing Care Practitioner: Signed 05-Sep-2013 Cerv Spine 4 or 5 Views Result: Comments: See Note; NOTES: [facility] Imaging Services [address] [place] [address] Radiology Report MR#: [id number] Acct: [id number] Name: TIN BLACKWOOD Rep #: [id number] : 1960 F 52 From: Vazquez Kaye MD PCP: Shasha Barker MD Status: REG CLI Study: Cerv Spine 4 or 5 Views Date of Exam: 09/05/13 Exam# [id number] Ordering Dr: More Taylor MD STUDY: X-RAY [...] MD at 14:28 EDT , Service support [phone], RAD/Cerv Spine 4 or 5 Views IMPRESSION: Multilevel degenerative changes, 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 No significant interval change Electronically Signed: Glenn Kaye MD at 14:28 EDT , Service support [phone] , CC: More Taylor MD; Shasha Barker MD Hearing Care Practitioner: Signed 10-Feb-2013 Hand Min 3 Views Result: Comments: See Note; NOTES: [facility] Imaging Services [address] [place] [address] Radiology Report MR#: [id number] Acct: [id number] Name: TIN BLACKWOOD Rep #: [id number] : 1960 F 52 From: Julio Cannon MD PCP: Status: REG CLI Study: Hand Min 3 Views Date of Exam: 02/10/13 Exam# [id number] Ordering Dr: Shasha Barker MD STUDY: X-RAY [...] February 10, 2013 at 10:35:57 PM EDT [phone] Electronically Signed BP/BP If you are the refe rring physician and would like to consult with the radiologist who provided this interpretation, please contact Julio Cannon M.D. at [phone]. If this radiologist is unavailable, you will [...] of these documents. CC: Shasha Barker MD Hearing Care Practitioner: Signed 10-Feb-2013 Hand Min 3 Views Result: Comments: See Note; NOTES: [facility] Imaging Services [address] [place] [address] Radiology Report MR#: [id number] Acct: [id number] Name: TIN BLACKWOOD Rep #: [id number] : 1960 F 52 From: Julio Cannon MD PCP: Status: REG CLI Study: Hand Min 3 Views Date of Exam: 02/10/13 Exam# [id number] Ordering Dr: Shasha Barker MD STUDY: X-RAY [...] February 10, 2013 at 10:36:47 PM EDT [phone] Electronically Signed BP/BP If you are the referring physician and would like to consult with the radiologist who provided this interpretation, please contact Julio Cannon M.D. at [phone]. If this radiologist is unavaila ble, you will be directed to another radiologist to assist. If you are a patient with a question regarding this report, please contact your referring physician directly. Professional Interpretatio n Provided By: [email or web address], Phone , These documents contain legally protected [...] of these documents. 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 No Drug Use 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 Tobacco Use: Current every day smoker. 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 Non Smoker/No Tobacco Use Status: Inactive Tobacco use: Former smoker. Status: Inactive Smoking Status Name Dates Details Current every day smoker Vital Signs Date Test Result Details 43-Ssp-484057:06 Temperature 97.4 f Comments: Method: Oral Pulse 94 /min Comments: Pattern: Regular Respiration Rate 16 /min O2 SAT 97 % Comments: Room air BP Systolic 132 mm[Hg] Comments: Patient Position: Sitting BP Diastolic 76 mm[Hg] Comments: Patient Position: Sitting Weight 174 lb Height 63 in Body Mass Index Calculated 30.82 kg/m2 Body Surface Area Calculated 1.82 m2 :44 Temperature 97.6 f Comments: Method: Temporal Pulse [...] 0.00 cm Results Date Description Value Details 95-Rfb-491410:00 CCP ANTIBODY (74866) Comments: PATIENT NOT FASTINGPERFORMED BY: Freenom VillanuevaMedifyAtrium Health Pineville [id number] BY: [email or web address] [id number] CCP Antibodies IgG/IgA 5 {units} (Normal) Range: 0-19 Comments: Negative <20 Weak positive 20 - 39 Moderate positive 40 - 59 Strong positive >59 11-Zpg-087894:00 C-Reactive Protein Comments: PATIENT NOT FASTINGPERFORMED BY: Fluentify [facility] HospitalDriveKAtrium Health [facility]ville [id number] BY: [email or web address] [id number] ([address]) C-Reactive Protein, Quant 7.0 mg/L (Abnormal) Range: 0.0-4.9 75-Hhx-466132:00 RHEUMATOID FACTOR-QUANT Comments: PATIENT NOT FASTINGPERFORMED BY: [employer] [facility] [id number] BY: iwocaMichael [place] 78[address]17 [facility] [id number] (365[address]) RA Latex Turbid. <10.0 {IU/mL} (Normal) Range: 0.0-13.9 88-Nuc-062192:00 CBC with auto diff Comments: PATIENT NOT FASTINGPERFORMED BY: [facility] Djhbke3553 Villan[address]va RoadDublin [place] [id number] BY: [facility] Myliwqxpal7749 [facility] [id number] (485[address]) Immature Grans (Abs) 0.0 {x10E3/uL} (Normal) Range: 0.0-0.1 Immature Granulocytes 0 % (Normal) Baso (Absolute) 0.0 {x10E3/uL} (Normal) Range: 0.0-0.2 Eos (Absolute) 0.1 {x10E3/uL} (Normal) Range: 0.0-0.4 Monocytes(Absolute) 0.5 {x10E3/uL} (Normal) Range: 0.1-0.9 Lymphs (Absolute) 1.0 {x10E3/uL} (Normal) Range: 0.7-3.1 Neutrophils (Absolute) 6.1 {x10E3/uL} (Normal) Range: 1.4-7.0 Basos 1 % (Normal) Eos 2 % (Normal) Monocytes 6 % (Normal) Lymphs 13 % (Normal) Neutrophils 78 % (Normal) Platelets 681 {x10E3/uL} (Abnormal) Range: 150-379 RDW 17.1 % (Abnormal) Range: 12.3-15.4 MCHC 32.4 g/dL (Normal) Range: 31.5-35.7 MCH 28.1 pg (Normal) Range: 26.6-33.0 MCV 87 fL (Normal) Range: 79-97 Hematocrit 31.8 % (Abnormal) Range: 34.0-46.6 Hemoglobin 10.3 g/dL (Abnormal) Range: 11.1-15.9 RBC 3.67 {x10E6/uL} (Abnormal) Range: 3.77-5.28 WBC 7.8 {x10E3/uL} (Normal) Range: 3.4-10.8 92-Dtk-859981:00 METABOLIC PANEL, Comments: PATIENT NOT FASTINGPERFORMED BY: [email or web address].comHoboken University Medical CenterScyrli2821 [facility] [id number] BY: [email or web address].com[address] [id number] COMPREHENSIVE (44746) ALT (SGPT) 9 [iU]/L (Normal) Range: 0-32 AST (SGOT) 13 [iU]/L (Normal) Range: 0-40 Alkaline Phosphatase 55 [iU]/L (Normal) Range: 39-117 Bilirubin, Total 0.3 mg/dL (Normal) Range: 0.0-1.2 A/G Ratio 1.7 (Normal) Range: 1.2-2.2 Globulin, Total 2.5 g/dL (Normal) Range: 1.5-4.5 Albumin 4.2 g/dL (Normal) Range: 3.5-5.5 Protein, Total 6.7 g/dL (Normal) Range: 6.0-8.5 Calcium 10.1 mg/dL (Normal) Range: 8.7-10.2 Carbon Dioxide, Total 22 mmol/L (Normal) Range: 20-29 Chloride 103 mmol/L (Normal) Range: 96-106 Potassium 4.7 mmol/L (Normal) Range: 3.5-5.2 Sodium 143 mmol/L (Normal) Range: 134-144 BUN/Creatinine Ratio 15 (Normal) Range: 9-23 eGFR If Africn Am 78 mL/min/1.73 (Normal) eGFR If NonAfricn Am 68 mL/min/1.73 (Normal) Creatinine 0.95 mg/dL (Normal) Range: 0.57-1.00 BUN 14 mg/dL (Normal) Range: 6-24 Glucose 101 mg/dL (Abnormal) Range: 65-99 14-Mho-871138:00 HGB A1C (40457) Comments: PATIENT NOT FASTINGPERFORMED BY: [email or web address] [place] 7860770 [facility] [id number] BY: LabReg[employer] [id number] Hemoglobin A1c 5.8 % (Abnormal) Range: 4.8-5.6 Comments: . Prediabetes: 5.7 - 6.4 Diabetes: >6.4 Glycemic control for adults with diabetes: <7.0 85-Jit-757050:00 TSH (35432) Comments: PATIENT NOT FASTINGPERFORMED BY: LabCoKelly V[place] [id number] [facility] [id number] BY: [facility]Co[address] [id number] TSH 0.865 {uIU/mL} (Normal) Range: 0.450-4.500 07-Jfz-667511:00 T4, FREE (THYROXINE) Comments: PATIENT NOT FASTINGPERFORMED BY: LabCoHoboken University Medical CenterNrnmxj1904 [facility] [id number] BY: [facility]Co[address] [id number] ([address]) T4,Free(Direct) 1.14 ng/dL (Normal) Range: 0.82-1.77 93-Yqj-91788:00 Tissue Biopsy See Note (Normal) Comments: [facility] [address] [place], [address] Comments: Patient: TIN BLACKWOOD : 1960 (57/F) Acct Num: [id number] Phys: Jose L Torres DDS Unit Num: [id number] Loc: LABSPEC Specimen: [id number] Received: 02/19/18 - 1513 Spec Typ e: [...] sectioned at the time of embedding. / Mahendra TC:5 CPT: 81604 HEADER OPERATION: Biopsy cheek/lip PRE-OP DIAGNOSIS: Probable fibroma TISSUE SUBMITTED: Biopsy cheek/lip MICROSCOPIC DESCRIPTION Slides are reviewed. MICROSCOPIC DI AGNOSIS Cheek/lip, biopsy: Squamous mucosa with subepithelial fibrosis, consistent with irritation fibroma. JANES:tammy 02/22/18 Signed Jarrod Holland 02/22/18 <signature on file> 1-Cbw-523863:19 HgA1C , Office (58544) HgA1C , Office 6.1 % (Normal) Range: 4.6 - 7.1 6-Kgs-974423:19 Blood Glucose , Office (75698) Blood Glucose , Office 153 (Normal) 2-Dxk-631421:19 Urinalysis, Office (36476) UA - LEUKOCYTE ESTERASE Negative (Normal) UA - NITRITE Negative (Normal) URINE UROBILINGN SRAVANI TIMED Normal mg/dL (Normal) UA - PROTEIN Negative mg/dL (Normal) UA - PH 7 (Normal) UA - BLOOD Negative (Normal) UA - SPECIFIC GRAVITY 1.010 (Normal) UA - KETONES Negative mg/dL (Normal) UA - BILIRUBIN Negative (Normal) UA - GLUCOSE Negative (Normal) 4-Bkw-465882:42 CBC-Complete Blood Cnt No Diff Comments: [facility] [address] [place], [address] MPV 9.7 fL (Normal) Range: [...] 4.2-5.4 WBC 8.0 K/mm3 (Normal) Range: 4.4-11.0 6-Usl-895284:42 Differential Comment Comments: [facility] [address] [place], [address] SMEAR COMMENT SCANNED (Normal) Comments: 1+ ANISOCYTOSIS 6-Wjd-224212:42 Liver Profile Comments: Comments: [facility] [address] [place], [place], [id number] D BILI 0.14 mg/dL (Normal) Range: 0.00-0.30 T BILI 0.60 mg/dL (Normal) Range: 0.20-1.00 ALT 49 U/L (Normal) Range: 13-56 ALK P 46 U/L (Normal) Range: 45-117 AST 25 U/L (Normal) Range: 15-37 GLOB 3.4 g/dL (Normal) Range: 2.2-4.2 ALB 3.6 g/dL (Normal) Range: 3.2-5.0 T PROT 7.0 g/dL (Normal) Range: 6.4-8.2 34-Pnx-122139:21 CBC-Complete Blood Cnt No Diff Comments: [facility] [address] [place], [address] MPV 10.2 fL (Normal) Range: 6.2-12.0 PLT [...] 4.2-5.4 WBC 8.0 K/mm3 (Normal) Range: 4.4-11.0 33-Itv-624813:21 Liver Profile Comments: [facility] [address] [place], [place], [address] D BILI 0.14 mg/dL (Normal) Range: 0.00-0.30 T BILI 0.80 mg/dL (Normal) Range: 0.20-1.00 ALT 50 U/L (Normal) Range: 13-56 ALK P 42 U/L (Abnormal) Range: 45-117 AST 30 U/L (Normal) Range: 15-37 GLOB 3.6 g/dL (Normal) Range: 2.2-4.2 ALB 4.0 g/dL (Normal) Range: 3.2-5.0 T PROT 7.6 g/dL (Normal) Range: 6.4-8.2 :48 HEPATIC FUNCTION PANEL Comments: PATIENT NOT FASTINGPERFORMED BY: [place] 6277670 [facility] [id number] (28739) ALT (SGPT) 45 [iU]/L (Abnormal) Range: 0-32 AST (SGOT) 33 [iU]/L (Normal) Range: 0-40 Alkaline Phosphatase 39 [iU]/L (Normal) Range: 39-117 Bilirubin, Direct 0.08 mg/dL (Normal) Range: 0.00-0.40 Bilirubin, Total 0.3 mg/dL (Normal) Range: 0.0-1.2 Protein, Total 6.8 g/dL (Normal) Range: 6.0-8.5 :48 T3, FREE (TRIDOTHYRONINE) (17904) Comments: PATIENT NOT FASTINGPERFORMED BY: [place] 6277670 [facility] [id number] Triiodothyronine (T3), Free 2.6 pg/mL (Normal) Range: 2.0-4.4 :48 T4, FREE (THYROXINE) (93025) Comments: PATIENT NOT FASTINGPERFORMED BY: [place] 6277670 [facility] [id number] T4,Free(Direct) 0.90 ng/dL (Normal) Range: 0.82-1.77 :48 TSH (00355) Comments: PATIENT NOT FASTINGPERFORMED BY: [address] [id number] TSH 0.333 {uIU/mL} (Abnormal) Range: 0.450-4.500 1-Vnn-344275:48 Renal function Panel (85295) Comments: PATIENT NOT FASTINGPERFORMED BY: [facility] Qtpbrv6391 [facility] [id number] Albumin 4.6 g/dL (Normal) Range: 3.5-5.5 Phosphorus [...] 6-24 Glucose 118 mg/dL (Abnormal) Range: 65-99 80-Rgv-684956:54 CBC-Complete Blood Cnt No Diff Comments: [facility] [address] [place], [place], [address] MPV 10.3 fL (Normal) Range: 6.2-12.0 PLT [...] 4.2-5.4 WBC 7.3 K/mm3 (Normal) Range: 4.4-11.0 56-Yjz-217701:54 Liver Profile Comments: [facility] [address] [place], [place], [address] D BILI 0.09 mg/dL (Normal) Range: 0.00-0.30 T BILI 0.40 mg/dL (Normal) Range: 0.20-1.00 ALT 49 U/L (Normal) Range: 13-56 ALK P 58 U/L (Normal) Range: 45-117 AST 22 U/L (Normal) Range: 15-37 GLOB 3.4 g/dL (Normal) Range: 2.2-4.2 ALB 3.9 g/dL (Normal) Range: 3.2-5.0 T PROT 7.3 g/dL (Normal) Range: 6.4-8.2 96-Elb-378520:13 Liver Profile Comments: [facility] [address] [place], [place], [address] D BILI 0.07 mg/dL (Normal) Range: 0.00-0.30 T BILI 0.40 mg/dL (Normal) Range: 0.20-1.00 ALT 49 U/L (Normal) Range: 13-56 Comments: Please note revised ALT reference range tqqpoahht36/28/2018. ALK P 53 U/L (Normal) Range: 45-117 AST 22 U/L (Normal) Range: 15-37 GLOB 3.3 g/dL (Normal) Range: 2.2-4.2 ALB 4.0 g/dL (Normal) Range: 3.2-5.0 T PROT 7.3 g/dL (Normal) Range: 6.4-8.2 0-Iyl-861400:59 CBC-Complete Blood Cnt No Diff Comments: [facility] [address] [place], [place], [address] MPV 10.4 fL (Normal) Range: 6.2-12.0 PLT [...] 4.2-5.4 WBC 9.1 K/mm3 (Normal) Range: 4.4-11.0 0-Xsn-766278:59 Erythrocyte Sed Rate Comments: [facility] [address] [place], [place], [address] SED RATE 15 mm/h (Normal) Range: 0-30 43-Ipn-038680:22 CBC-Complete Blood Cnt No Diff Comments: [facility] [address] [place], [place], [address] MPV 10.4 fL (Normal) Range: 6.2-12.0 PLT [...] 4.2-5.4 WBC 7.6 K/mm3 (Normal) Range: 4.4-11.0 19-Dsx-466107:22 Liver Profile Comments: Comments: [facility] [address] [place], [place], [address] D BILI 0.12 mg/dL (Normal) Range: 0.00-0.30 T BILI 0.60 mg/dL (Normal) Range: 0.20-1.00 ALT 38 U/L (Normal) Range: 13-56 Comments: Please note revised ALT reference range styzoouyt58/28/2018. ALK P 53 U/L (Normal) Range: 45-117 AST 31 U/L (Normal) Range: 15-37 GLOB 3.2 g/dL (Normal) Range: 2.2-4.2 ALB 3.7 g/dL (Normal) Range: 3.2-5.0 T PROT 6.9 g/dL (Normal) Range: 6.4-8.2 69-Zbi-900997:33 CBC-Complete Blood Cnt No Diff Comments: [facility] [address] [place], [place], [address] MPV 10.7 fL (Normal) Range: 6.2-12.0 PLT [...] 4.2-5.4 WBC 11.5 K/mm3 (Abnormal) Range: 4.4-11.0 03-Yjz-424168:33 Liver Profile Comments: [facility] U[address]ae1555 [facility] [address] [place], [place], [address] D BILI 0.09 mg/dL (Normal) Range: 0.00-0.30 T BILI 0.60 mg/dL (Normal) Range: 0.20-1.00 ALT 33 U/L (Normal) Range: 13-56 Comments: Please note revised ALT reference range plvsznudj38/28/2018. ALK P 59 U/L (Normal) Range: 45-117 AST 15 U/L (Normal) Range: 15-37 GLOB 3.7 g/dL (Normal) Range: 2.2-4.2 ALB 3.8 g/dL (Normal) Range: 3.2-5.0 T PROT 7.5 g/dL (Normal) Range: 6.4-8.2 90-Bad-505494:29 CBC-Complete Blood Cnt No Diff Comments: [facility] [address] [place], [address] MPV 11.1 fL (Normal) Range: 6.2-12.0 PLT [...] 4.2-5.4 WBC 9.5 K/mm3 (Normal) Range: 4.4-11.0 52-Fvj-534918:29 Liver Profile Comments: [facility] [address] [place], [place], [address] D BILI 0.10 mg/dL (Normal) Range: 0.00-0.30 T BILI 0.40 mg/dL (Normal) Range: 0.20-1.00 ALT 29 U/L (Normal) Range: 12-78 ALK P 51 U/L (Normal) Range: 45-117 AST 12 U/L (Abnormal) Range: 15-37 GLOB 3.6 g/dL (Normal) Range: 2.2-4.2 ALB 3.9 g/dL (Normal) Range: 3.4-5.0 Comments: Please note revised Albumin AND Globulin reference rangeeffective 2017. T PROT 7.5 g/dL (Normal) Range: 6.4-8.2 4-Zjw-712479:34 Gram Stain w/Sputum Cult Comments: PATIENT NOT FASTINGPERFORMED BY: [facility] CenterUjlugk1552 [facility] [id number] Information: SRC:SP Rflx Gram Stain Evaluation GSACC (Normal) Comments: This specimen is of good quality and is acceptable for routinebacterial culture. Result 1 GNRF (Normal) Comments: Few gram negative rods.Few gram positive cocciRare gram negative coccobacilli Epithelial Cells Few (Normal) White Blood Cells None seen (Normal) 7-Ueg-167458:34 Sputum Culture Comments: PATIENT NOT FASTINGPERFORMED BY: [facility]6370 [facility] [id number] Result 1 RRF (Normal) Comments: Routine respiratory roxanne Lower Respiratory Culture Final report (Normal) 7-Uck-266294:12 TSH (37664) Comments: PATIENT NOT FASTINGPERFORMED BY: [facility]6370 [facility] [id number] TSH 0.434 {uIU/mL} (Abnormal) Range: 0.450-4.500 0-Ipe-186913:12 T3, FREE (TRIDOTHYRONINE) (13111) Comments: PATIENT NOT FASTINGPERFORMED BY: [facility]6370 [facility] [id number] Triiodothyronine,Free,Serum 3.0 pg/mL (Normal) Range: 2.0-4.4 5-Dup-316396:12 T4, FREE (THYROXINE) (84724) Comments: PATIENT NOT FASTINGPERFORMED BY: [facility]6370 [facility] [id number]; review 05/15 T4,Free(Direct) 1.22 ng/dL (Normal) Range: 0.82-1.77 19-Tgf-940301:14 CBC-Complete Blood Cnt No Diff Comments: [facility] [address] [place], [address] MPV 10.8 fL (Normal) Range: 6.2-12.0 PLT [...] 4.2-5.4 WBC 7.7 K/mm3 (Normal) Range: 4.4-11.0 14-Ymw-179718:14 Liver Profile Comments: [facility] [address] [place], [place], [address] D BILI 0.11 mg/dL (Normal) Range: 0.00-0.30 T BILI 0.60 mg/dL (Normal) Range: 0.20-1.00 ALT 31 U/L (Normal) Range: 12-78 ALK P 51 U/L (Normal) Range: 45-117 AST 22 U/L (Normal) Range: 15-37 GLOB 3.3 g/dL (Normal) Range: 2.2-4.2 ALB 3.7 g/dL (Normal) Range: 3.4-5.0 Comments: Please note revised Albumin AND Globulin reference rangeeffective 2017. T PROT 7.0 g/dL (Normal) Range: 6.4-8.2 5-Cbm-753439:36 CBC-Complete Blood Cnt No Diff Comments: BONEZZI ORDERED TSH,FT4,FT3,AND TPOSTANDING ORDER [facility] [address] [place], [place], [address] MPV 10.7 fL (Normal) Range: 6.2-12.0 PLT [...] 4.2-5.4 WBC 6.9 K/mm3 (Normal) Range: 4.4-11.0 :36 Free T3 Comments: [facility] [address] [place], [address] FREE T3 2.6 pg/mL (Normal) Range: 2.18-3.98 :36 Liver Profile Comments: [address] [place], [address] D BILI 0.07 mg/dL (Normal) Range: 0.00-0.30 T BILI 0.40 mg/dL (Normal) Range: 0.20-1.00 ALT 32 U/L (Normal) Range: 12-78 ALK P 48 U/L (Normal) Range: 45-117 AST 15 U/L (Normal) Range: 15-37 GLOB 3.2 g/dL (Normal) Range: 2.2-4.2 ALB 3.7 g/dL (Normal) Range: 3.4-5.0 Comments: Please note revised Albumin AND Globulin reference rangeeffective 2017. T PROT 6.9 g/dL (Normal) Range: 6.4-8.2 :36 T4 Free Direct Comments: [facility] [address] [place], [address] T4 FREE DIRECT 0.84 ng/dL (Normal) Range: 0.76-1.46 3-Qrl-812405:36 Thyroid Peroxidase AB Comments: [facility] (refer to report for specific site)refer to report for address and phone number TPO AB 6619 11 {IU/mL} (Normal) Range: 0-34 Comments: Performed at: [address] [id number] Director: Jose L Patel PhD, Phone: [phone] 6-Tjc-960923:36 Thyroid Stim Hormone (TSH) Comments: [facility] [address] [place], [address] TSH 0.36 {uIU/mL} (Normal) Range: 0.358-3.74 31-Bco-335641:03 CBC-Complete Blood Cnt No Diff Comments: [facility] [address], [address] MPV 10.4 fL (Normal) Range: 6.2-12.0 [...] 4.2-5.4 WBC 9.2 K/mm3 (Normal) Range: 4.4-11.0 71-Tud-129891:03 Liver Profile Comments: [place] [address] [place], [address] D BILI 0.11 mg/dL (Normal) Range: 0.00-0.30 T BILI 0.40 mg/dL (Normal) Range: 0.20-1.00 ALT 30 U/L (Normal) Range: 12-78 ALK P 52 U/L (Normal) Range: 45-117 AST 14 U/L (Abnormal) Range: 15-37 GLOB 3.4 g/dL (Normal) Range: 2.2-4.2 ALB 4.1 g/dL (Normal) Range: 3.4-5.0 Comments: Please note revised Albumin AND Globulin reference rangeeffective 2017. T PROT 7.5 g/dL (Normal) Range: 6.4-8.2 29-Lsm-562392:28 CBC-Complete Blood Cnt No Diff Comments: [facility] [address] [place], [address] MPV 11.1 fL (Normal) Range: 6.2-12.0 PLT [...] 4.2-5.4 WBC 8.7 K/mm3 (Normal) Range: 4.4-11.0 54-Map-368547:28 Liver Profile Comments: [facility] [address] [place], [address] D BILI 0.13 mg/dL (Normal) Range: 0.00-0.30 T BILI 0.60 mg/dL (Normal) Range: 0.20-1.00 ALT 32 U/L (Normal) Range: 12-78 ALK P 44 U/L (Abnormal) Range: 45-117 AST 13 U/L (Abnormal) Range: 15-37 GLOB 3.2 g/dL (Normal) Range: 2.2-4.2 ALB 3.7 g/dL (Normal) Range: 3.4-5.0 Comments: Please note revised Albumin AND Globulin reference rangeeffective 2017. T PROT 6.9 g/dL (Normal) Range: 6.4-8.2 64-Icy-291747:57 CBC-Complete Blood Cnt No Diff Comments: [facility] [address] [place], [address] MPV 10.9 fL (Normal) Range: 6.2-12.0 PLT [...] 4.2-5.4 WBC 7.8 K/mm3 (Normal) Range: 4.4-11.0 4-Xna-671910:07 CBC-Complete Blood Cnt No Diff Comments: [facility] [address]sts[address] [facility] [address] [place], [place], [address] MPV 11.2 fL (Normal) Range: 6.2-12.0 PLT [...] 4.2-5.4 WBC 9.1 K/mm3 (Normal) Range: 4.4-11.0 2-Dkq-255332:07 Liver Profile Comments: [facility] C[address] [facility] [address] [place], [place], [address] D BILI 0.09 mg/dL (Normal) Range: 0.00-0.30 T BILI 0.20 mg/dL (Normal) Range: 0.20-1.00 ALT 34 U/L (Normal) Range: 12-78 ALK P 55 U/L (Normal) Range: 45-117 AST 15 U/L (Normal) Range: 15-37 GLOB 3.3 g/dL (Normal) Range: 2.3-3.5 ALB 3.5 g/dL (Normal) Range: 3.4-5.0 T PROT 6.8 g/dL (Normal) Range: 6.4-8.2 86-Hfg-351340:40 URINE ALISSON CULTURE-IDENTIFICATN Comments: PERFORMED BY: N[facility] Pujcci4033 [facility] [id number] Information: SRC:UR (72178) Antimicrobial MIHEAD (Normal) Comments: S = Susceptible; [...] mL (Abnormal) Urine Final report Culture,Comprehensive (Abnormal) 97-Ydi-344305:47 Urinalysis, Office (94154) UA - LEUKOCYTE ESTERASE Small (Normal) UA - NITRITE Negative (Normal) URINE UROBILINGN SRAVANI TIMED Normal mg/dL (Normal) UA - PROTEIN Negative mg/dL (Normal) UA - PH 6 (Abnormal) UA - BLOOD Negative (Normal) UA - SPECIFIC GRAVITY 1.005 (Normal) UA - KETONES Negative mg/dL (Normal) UA - BILIRUBIN Negative (Normal) UA - GLUCOSE Negative (Normal) 70-Qqs-330452:58 Basic Metabolic Profile (BMP) Comments: 'TROP' Serial specimen #1, #2, #3, or #4: 1[facility] [address] [place], [place], [address] GAP 10 (Normal) Range: 5-15 CO2 25.0 [...] 7-18 GLU 92 mg/dL (Normal) Range: 70-110 48-Dxa-391766:58 CBC W/Diff, Automated Comments: [facility] [address] [place], [place], [address] Absolute Lymph 1.13 {X10_3/ul} (Normal) Range: 0.83-4.51 [...] Serial specimen #1, #2, #3, or #4: 1[facility] [address] [place], [place], [address] TROPONIN-I 0.11 ng/mL (Abnormal) Comments: TROPONIN-I EXPECTED VALUES <0.05 NEGATIVE 0.06 - 0.59 AT RISK OF GA > OR = 0.60 SUGGEST GA :56 CBC W/Diff, Automated Comments: [facility] [address]uy[address] [place], [place], [address] Absolute Lymph 1.30 {X10_3/ul} (Normal) Range: 0.83-4.51 [...] Range: 4.4-11.0 :56 Comprehensive Metabolic Profil Comments: [facility] [address] [place], [place], [address] GAP 8 (Normal) Range: 5-15 CO2 29.0 [...] <126 mg/dLsuggests IMPAIRED HOMEOSTASIS per A.D.A. criteria. 90-Yda-308925:39 CBC W/Diff, Automated Comments: [facility] [address] [place], [place], [address] Absolute Lymph 1.40 {X10_3/ul} (Normal) Range: 0.83-4.51 [...] 4.2-5.4 WBC 8.8 K/mm3 (Normal) Range: 4.4-11.0 19-Xnt-239373:39 Comprehensive Metabolic Profil Comments: [facility] [address] [place], [address] GAP 7 (Normal) Range: 5-15 CO2 30.0 [...] 126 mg/dLsuggests DIABETES MELLITUS per A.D.A. criteria. 20-Pcj-522815:43 Homocysteine, Plasma (21436) Comments: PATIENT NOT FASTINGPERFORMED BY: [facility] CenterXzhjyj9084 [facility] [id number] Homocyst(e)ine, Plasma 9.3 umol/L (Normal) Range: 0.0-15.0 81-Amz-175967:12 CRP, High Sensitivity Cardiac Comments: [facility] [address] [place], [place], [address] CRP HIGH SENS 1.10 mg/L (Normal) Comments: Low Relative Risk of CVD <1.0 mg/L Average Relative Risk of CVD 1.0 - 3.0 mg/L High Relative Risk of CVD >3.0 mg/L 59-Obs-485391:12 Erythrocyte Sed Rate Comments: [facility] [address] [place], [address] SED RATE 24 mm/h (Normal) Range: 0-30 9-Qqq-995555:28 CBC WITH MANUAL DIFF (37981) Comments: PATIENT NOT FASTINGPERFORMED BY: N[facility] Nseimi2948 [facility] [id number] Immature Grans (Abs) 0.0 {x10E3/uL} (Normal) Range: [...] 3.77-5.28 WBC 7.3 {x10E3/uL} (Normal) Range: 3.4-10.8 2-Tyi-320797:28 Metabolic Panel, Basic Comments: PATIENT NOT FASTINGPERFORMED BY: [facility] Gnfyfw5685 [facility] [id number]; will review at 09/04 appt (05889) Calcium, Serum 9.4 mg/dL (Normal) Range: 8.7-10.2 [...] Glucose, Serum 107 mg/dL (Abnormal) Range: 65-99 02-Bfk-951409:31 CBC With Differential/Platelet Comments: PATIENT NOT FASTINGPERFORMED BY: [facility] Egubrd1653 [facility] [id number] Immature Grans (Abs) 0.0 {x10E3/uL} Range: 0.0-0.1 [...] {x10E3/uL} Range: 3.4-10.8 (Abnormal) 18-Aug-2016 Written Authoriz RCRick ANGELA (Normal) Comments: PATIENT NOT FASTINGPERFORMED BY: [email or web address] Lxgmvu2923 [facility] [id number] 13:31 Comments: WRITTEN AUTHORIZATION RECEIVED.AUTHORIZATION RECEIVED FROM JACKIE BRUNO LPN [id number] BY RADHA EMMANUEL 87-Iet-135422:31 CBC (Auto) (10507) Comments: PATIENT NOT FASTINGPERFORMED BY: [email or web address] Sffjfg6918 [facility] [id number] Platelets 416 {x10E3/uL} (Abnormal) Range: 150-379 RDW 17.2 % (Abnormal) Range: 12.3-15.4 MCHC 32.4 g/dL (Normal) Range: 31.5-35.7 MCH 27.0 pg (Normal) Range: 26.6-33.0 MCV 83 fL (Normal) Range: 79-97 Hematocrit 36.7 % (Normal) Range: 34.0-46.6 Hemoglobin 11.9 g/dL (Normal) Range: 11.1-15.9 RBC 4.40 {x10E6/uL} (Normal) Range: 3.77-5.28 WBC 12.7 {x10E3/uL} (Abnormal) Range: 3.4-10.8 85-Gev-467680:31 Magnesium (33861) Comments: PATIENT NOT FASTINGPERFORMED BY: [email or web address] Xedjxk9106 [facility] [id number] Magnesium, Serum 2.0 mg/dL (Normal) Range: 1.6-2.3 57-Byb-169805:31 Renal function Panel (31657) Comments: PATIENT NOT FASTINGPERFORMED BY: [email or web address] Pclhaz5729 [facility] [id number] Albumin, Serum 4.1 g/dL (Normal) Range: 3.5-5.5 [...] Glucose, Serum 99 mg/dL (Normal) Range: 65-99 2-Iav-553485:16 Lactic Acid Comments: [facility] Fqksryqufd9402 [facility] [place], [place], [address] LACTIC ACID 1.2 mmol/L (Normal) Range: 0.4-2.0 :52 BNP,B-Type NATRIURETIC PEPTIDE Comments: [facility] In[address]rzhu[address] [facility] [address] [place], [place], [address] B-TYPE BRENT PEP 89.7 pg/mL (Normal) Range: 0-100 :52 CBC W/Diff, Automated Comments: [facility] [address] [place], [place], [address] Absolute Lymph 1.12 {X10_3/ul} (Normal) Range: 0.83-4.51 [...] Serial specimen #1, #2, #3, or #4: [address] [place] [address] [address]nlhqc7936 [place], [address] GAP 5 (Normal) Range: 5-15 CO2 24.0 mmol/L (Normal) Range: 21.0-32.0 CL 100 mmol/L (Normal) Range: 98-107 K 2.8 mmol/L (Abnormal) Range: 3.5-5.1 NA 129 mmol/L (Abnormal) Range: 136-145 Comments: Critical Result(s) Called at: 10:33:42 08/05/2016 by: Jeison Mansfield BILRamonita 0.60 mg/dL (Normal) Range: 0.20-1.00 ALT 56 [...] Serial specimen #1, #2, #3, or #4: [facility] [address] [place], [address] TROPONIN-I 0.73 ng/mL (Abnormal) Comments: TROPONIN-I EXPECTED VALUES <0.05 NEGATIVE 0.06 - 0.59 AT RISK OF GA > OR = 0.60 SUGGEST GA :43 Base Excess ISTAT Comments: [place] [address] [place] [address] BE ISTAT 1 mmol/L (Normal) :43 Bicarbonate ISTAT Comments: [place] [address] [place] [address] HCO3 ISTAT 26 mmol/L (Normal) Range: 22-26 Comments: Site = R RadialDevice = Vent MaskFIO2 = 40Results To = ED MDTime Given = 949 :43 Blood Gas Specimen Type Comments: [place] [address] [place] [address] BLD GAS TYPE ART (Normal) :43 pCO2 - ISTAT 40.0 {mmHg} (Normal) Comments: [place] [address] [address] Range: 35-45 :43 pH - I-STAT 7.42 (Normal) Comments: [place] [address] [place] [address] Range: 7.35-7.45 :43 PO2 I-STAT 68 {mmHG} (Abnormal) Comments: [place] [address] [place] [address] Range: 75-100 :43 SO2 ISTAT 94 % (Abnormal) Comments: [place] [address] [place] [address] Range: 95-99 :43 Total Carbon Dioxide ISTAT Comments: [place] [address] [place] [address] TOTAL CO2 ISTAT 27 mmol/L (Normal) :06 CBC W/Diff, Automated Comments: [place] [address] [place], [address] Absolute Lymph 1.60 {X10_3/ul} (Normal) Range: [...] 4.2-5.4 WBC 6.3 K/mm3 (Normal) Range: 4.4-11.0 07-Vgk-893141:06 Comprehensive Metabolic Profil Comments: [facility] [address] [place], [place], [address] GAP 5 (Normal) Range: 5-15 CO2 30.0 [...] 7-18 GLU 102 mg/dL (Normal) Range: 70-110 07-Pvq-943623:30 PAP I-G w/rfx hrHPV Comments: CYTOLOGY INFORMATION:- CLINICAL INFORMATION:- DATE LMP/MENOPAUSE: MENOPAUSE- COLLECTION VIAL: Thin Prep Vial- UPHOLSTERY COVERS INSPECTOR SOURCE: CERVICAL/ENDOCERVICAL- COLLECTION TECHNIQUE: BRUSH/SPATULACYTOLOGY INFORMATION :- CLINICAL INFORMATION:- DATE LMP/MENOPAUSE: MENOPAUSE- COLLECTION VIAL: Thin Prep Vial- UPHOLSTERY COVERS INSPECTOR SOURCE: CERVICAL/ENDOCERVICAL- COLLECTION TECHNIQUE: BRUSH/SPATULASpecimen Comment: [id number] saira Comment: No. of containers..01 CYTYC Thin Prep [facility]ial[facility] (refer to report for specific site)refer to report for address and phone number HPV RFLX Comment (Normal) Comments: The HPV DNA reflex criteria were not met with this specimenresult therefore, no HPV testing was performed.Performed at: [address] [id number] Director: Selene Munoz MD, Phone: [phone] PAPSMR Comment (Normal) Comments: The Pap smear [...] system. PERFORM Comment (Normal) Comments: Dioni Pereira, Student Union Consultant (ASCP) ADEQ Comment (Normal) Comments: Satisfactory for evaluation. Endocervical and/or squamous metaplasticcells (endocervical component) are present. DIAGN Comment (Normal) Comments: NEGATIVE FOR INTRAEPITHELIAL LESION AND MALIGNANCY. 78-Xgl-[id number]:09 CBC W/Diff, Automated Comments: [facility] [id number] [place], [address] Absolute Lymph 1.61 {X10_3/ul} (Normal) Range: 0.83-4.51 [...] 4.2-5.4 WBC 7.3 K/mm3 (Normal) Range: 4.4-11.0 24-Zjn-723811:09 Comprehensive Metabolic Profil Comments: [facility] [id number] [place], [id number] GAP 8 (Normal) Range: 5-15 CO2 30.0 [...] 7-18 GLU 90 mg/dL (Normal) Range: 70-110 20-Chy-597438:09 Lipid Profile Comments: [facility] [id number] [place], [place], [address] VLDL 11 mg/dL (Normal) Range: 5-40 LDL [...] 200-240 mg/dL Borderline >240 mg/dL High Risk 95-Nmr-775714:56 Ferritin (07366) Comments: PATIENT NOT FASTINGPERFORMED BY: [facility] [id number] [place] [id number] Information: NURSE DRAW Ferritin, Serum 35 ng/mL (Normal) Range: 15-150 21-Nvh-147489:06 Lipid Profile Comments: [facility] [id number] [place], [address] VLDL 14 mg/dL (Normal) Range: [...] 200-240 mg/dL Borderline >240 mg/dL High Risk 55-Dkj-816596:11 CBC W/Diff, Automated Comments: [facility] [id number] [place], [place], [id number] Absolute Lymph 1.06 {X10_3/ul} (Normal) Range: 0.83-4.51 [...] 4.2-5.4 WBC 9.4 K/mm3 (Normal) Range: 4.4-11.0 11-Uds-744329:11 Comprehensive Metabolic Profil Comments: [facility] [address] [place], [place], [id number] GAP 9 (Normal) Range: 5-15 CO2 29.0 [...] 7-18 GLU 100 mg/dL (Normal) Range: 70-110 26-Cfn-837252:59 CBC W/Diff, Automated Comments: [facility] [id number] [place], [place], [address] Absolute Lymph 1.33 {X10_3/ul} (Normal) Range: 0.83-4.51 [...] 4.2-5.4 WBC 3.7 K/mm3 (Abnormal) Range: 4.4-11.0 42-Gzt-949087:59 Comprehensive Metabolic Profil Comments: [facility] [id number] [place], [place], [id number] GAP 7 (Normal) Range: 5-15 CO2 28.0 [...] 7-18 GLU 84 mg/dL (Normal) Range: 70-110 2-Wqa-664190:15 CBC W/Diff, Automated Comments: [facility] [address] [place], [address] Absolute Lymph 0.51 {X10_3/ul} (Abnormal) Range: 0.83-4.51 [...] 4.2-5.4 WBC 9.8 K/mm3 (Normal) Range: 4.4-11.0 2-Ssr-526744:15 Comprehensive Metabolic Profil Comments: [facility] Ectiyctgcx12[address] [place], [place], [address] GAP 3 (Abnormal) Range: 5-15 CO2 28.0 [...] 7-18 GLU 107 mg/dL (Normal) Range: 70-110 0-Wno-161205:15 Quantiferon TB-Gold Comments: [facility] (refer to report [...] go to cdc.gov/tb for further details.Performed at: [address] [id number] Director: Jose L Patel PhD, Phone: [phone] QFT AG - NIL 0 {IU/mL} (Normal) [...] the package insert forthe QuantiFERON Gold (In be) test must be followed toenable for proper stimulation of cells for the productionof interferon gamma. 4-Ejt-524300:43 CBC W/Diff, Automated Comments: [facility] Qpfmpsxiuz[address] [place], [place], [address] Absolute Lymph 0.86 {X10_3/ul} (Normal) Range: 0.83-4.51 [...] 4.2-5.4 WBC 6.3 K/mm3 (Normal) Range: 4.4-11.0 9-Dab-533272:43 Comprehensive Metabolic Profil Comments: [facility] Ukfewbmgkp18[address] [place], [place], [address] GAP 9 (Normal) Range: 5-15 CO2 29.0 [...] <126 mg/dLsuggests IMPAIRED HOMEOSTASIS per A.D.A. criteria. 65-Lks-685411:00 CORTISOL SERUM Comments: [facility] Fnmcweaxqc79[address] [place], [place], [address] CORTISOL 11.80 ug/dL (Normal) Range: 3.09-22.40 Comments: Adult (AM) 4.30 - 22.40 ug/dL Adult (PM) 3.09 - 16.66 ug/dL 39-Shs-035249:00 DHEA Sulfate Comments: Has Patient had Radioactive Injection for X-ray?: [facility] (refer to report for specific site)refer to report for address and phone number DHEA SULF 4020 35.6 ug/dL (Abnormal) Range: 41.2-243.7 Comments: Performed at: [address] [id number] Director: Jose L Patel PhD, Phone: [phone] 81-Qlm-321344:00 Estradiol Comments: [facility] Iiixcvvixw48[address] [place], [address] ESTRADIOL 11.4 pg/mL (Normal) Comments: NORMAL REFERENCE [...] SHOULD BE USED TO DETERMINE ESTRADIOL CONCENTRATION. 62-Mmw-144057:00 Free T3 Comments: [facility] Ifhnhighmi4476 [place], [address] FREE T3 3.1 pg/mL (Normal) Range: 2.18-3.98 26-Auc-444363:00 Hemoglobin A1c Comments: [facility] Hqnulluznk7493 [place], [address] HGB A1C 6.1 % (Normal) Range: 4.2-6.3 28-Wzh-034023:00 Progesterone Level Comments: [facility] Vrchsdxgen[address] [place], [address] Progesterone 2.17 ng/mL (Normal) Comments: Progesterone Reference Table: UNITS Female: Follicular 0.15 - 1.40 ng/mL Luteal 3.34 - 25.56 ng/mL Mid-luteal 4.44 - 28.03 ng/mL Postmenopausal 0.0 - 0.73 ng/mL : 1st Trimester 11.22 - 90.00 ng /mL 2nd Trimester 25.55 - 89.40 ng/mL 3rd Trimester 48.40 -422.50 ng/mL 33-Bai-164098:00 T4 Free Direct Comments: [facility] Ngvwlncrix[address] [place], [address] T4 FREE DIRECT 0.80 ng/dL (Normal) Range: 0.76-1.46 70-Jzv-521725:00 Testosterone, Serum Total Comments: [facility] Gwmekpkzww3294 [facility] [place], [place], [address] Testosterone 20 ng/dL (Normal) Range: 14-76 46-Fts-670140:00 Thyroid Stim Hormone (TSH) Comments: [facility] [address]xj[address] [place], [place], [address] TSH 0.46 {uIU/mL} (Normal) Range: 0.358-3.74 65-Vke-696028:30 PAP I-G w/rfx hrHPV Comments: CYTOLOGY INFORMATION:- CLINICAL INFORMATION:- DATE LMP/MENOPAUSE: MENOPAUSE- COLLECTION VIAL: Thin Prep Vial- 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 of containers..01 CYTYC Thin Prep VialLabCorp (refer to report for specific site)refer to report for address and phone number HPV RFLX Comment (Normal) Comments: The HPV DNA reflex criteria were not met with this specimenresult therefore, no HPV testing was performed.Performed at: [address] [place] CityJess[place] [id number] Director: Selene Munoz MD, Phone: [phone] PAPSMR Comment (Normal) Comments: The Pap smear [...] system. PERFORM Comment (Normal) Comments: Luisa Washington, Student Union Consultant (ASCP) ADEQ Comment (Normal) Comments: Satisfactory for evaluation. No endocervical component is identified. DIAGN Comment (Normal) Comments: NEGATIVE FOR INTRAEPITHELIAL LESION AND MALIGNANCY. :26 D-Dimer Quantitative (DVT/PE) Comments: [facility] [address] [place], [address] D-DIMER QUANT 0.30 {FEU/ug/m} (Normal) Range: 0.27-0.49 Comments: NORMAL D-Dimer level (<0.50) indicates no DVT or PE. :25 CK-MB Quantitative and Index Comments: 'TROP' Serial specimen #1, #2, #3, or #4: INT'CKMB' Serial Specimen #1, #2 or #3? [address] [place] [address] [place], [address] CKRI 1.3 % (Normal) Range: 0.0-1.4 Comments: RELATIVE INDEX >1.5% IS PRESUMPTIVELY POSITIVE CPKMB 2.2 ng/mL (Normal) Range: 0.0-5.0 Comments: CK-MB and RI Interpretation MB Relative Index Non-AMI <or= 5 NA Indeterminate > 5 <or= 4 AMI > 5 > 4 CPK TOTAL 170 U/L (Normal) Range: 26-192 :25 Troponin I (83337) Comments: 'TROP' Serial specimen #1, #2, #3, or #4: INT'CKMB' Serial Specimen #1, #2 or #3? [address] [place] [address] [place], [address] TROPONIN-I < 0.02 ng/mL (Normal) Comments: TROPONIN-I EXPECTED VALUES <0.05 NEGATIVE 0.06 - 0.59 AT RISK OF GA > OR = 0.60 SUGGEST GA 0-Xxk-296630:13 Urinalysis, Office (88257) UA - LEUKOCYTE ESTERASE Negative (Normal) UA - NITRITE Negative (Normal) URINE UROBILINGN SRAVANI TIMED Normal mg/dL (Normal) UA - PROTEIN Negative mg/dL (Normal) UA - PH 6 (Abnormal) UA - BLOOD Negative (Normal) UA - SPECIFIC GRAVITY 1.020 (Normal) UA - KETONES Negative mg/dL (Normal) UA - BILIRUBIN Negative (Normal) UA - GLUCOSE Negative (Normal) 78-Ben-540771:41 CBC W/Diff, Automated Comments: [facility] [address]brv[address]vr[address] [place], [place], [address] Absolute Lymph 1.18 {X10_3/ul} (Normal) Range: 0.83-4.51 [...] 4.2-5.4 WBC 8.8 K/mm3 (Normal) Range: 4.4-11.0 02-Ply-977992:41 Comprehensive Metabolic Profil Comments: [facility] [address] [place], [place], [address] GAP 9 (Normal) Range: 5-15 CO2 27.0 [...] 7-18 GLU 98 mg/dL (Normal) Range: 70-110 6-Gmy-748005:41 CBC W/Diff, Automated Comments: [facility] [address] [place], [place], [address] Absolute Lymph 1.54 {X10_3/ul} (Normal) Range: 0.83-4.51 [...] 4.2-5.4 WBC 6.6 K/mm3 (Normal) Range: 4.4-11.0 3-Rtx-790362:41 Comprehensive Metabolic Profil Comments: [facility] [address] [place], [place], [address] GAP 7 (Normal) Range: 5-15 CO2 30.0 [...] 7-18 GLU 102 mg/dL (Normal) Range: 70-110 93-Znq-830122:44 CBC W/Diff, Automated Comments: [facility] [address] [place], [address] Absolute Lymph 3.85 {X10_3/ul} (Normal) Range: 0.83-4.51 [...] 4.2-5.4 WBC 10.7 K/mm3 (Normal) Range: 4.4-11.0 36-Kjw-678798:44 Comprehensive Metabolic Profil Comments: ORDERED LIPID,CMPDRMERA ORDERED CMP,[facility]CD[facility] Xstfxztfnm1225 [place], [address] GAP 8 (Normal) Range: 5-15 CO2 29.0 [...] 7-18 GLU 78 mg/dL (Normal) Range: 70-110 59-Hfx-893684:44 Lipid Profile Comments: ORDERED LIPID,CMPDRMERA ORDERED CMP,CBCDWSt. [facility] Igkyooapus5[address] [place], [place], [address] VLDL 33 mg/dL (Normal) Range: 5-40 LDL [...] 200-240 mg/dL Borderline >240 mg/dL High Risk 6-Lxu-359040:46 CBC W/Diff, Automated Comments: [facility] Hqvfxhjyzu7182 [facility] [address]. [place], [place], [address] Absolute Lymph 1.65 {X10_3/ul} (Normal) Range: 0.83-4.51 [...] 4.2-5.4 WBC 12.5 K/mm3 (Abnormal) Range: 4.4-11.0 8-Ugp-505954:46 Comprehensive Metabolic Profil Comments: [facility] [address]bfwwunopk[address] [place], [place], [address] GAP 9 (Normal) Range: 5-15 CO2 31.0 [...] 126 mg/dLsuggests DIABETES MELLITUS per A.D.A. criteria. 0-Zcq-729921:46 Culture, Sputum Comments: [facility] [address] [place], [address] CUSP See Note (Normal) Comments: Gram StainAcceptable Specimen? Yes (<25 Epithelial cells per/lpf) Gram Stain Rare Gram positive rods 3+ Gram positive cocci 3+ White Blood Cells Rare Epithelial cells Resp. CultureMixed normal respiratory roxanne. No Streptococcus pneumoniae, beta-hemolytic Streptococcus or Staphylococcus aureus isolated. 26-Wss-004548:13 CBC W/Diff, Automated Comments: Test performed at:[facility] Tjpcuvozrn2078 [facility] [place], [place] [address] Absolute Lymph 1.78 {X10_3/ul} (Normal) Range: 0.83-4.51 [...] 4.2-5.4 WBC 5.3 K/mm3 (Normal) Range: 4.4-11.0 02-Kdb-160204:13 Comprehensive Metabolic Profil Comments: Test performed at:[facility] Jevnfdmwyj1408 [facility] [place], [place] [address] GAP 7 (Normal) Range: 5-15 CO2 26.0 [...] Comments: Please note revised CREATININE reference range wdavsnjth25/22/2015. BUN 18 mg/dL (Normal) Range: 7-18 GLU 124 mg/dL (Abnormal) Range: 70-110 Comments: Fasting Glucose result from 110 to <126 mg/dLsuggests IMPAIRED HOMEOSTASIS per A.D.A. criteria. 4-Wml-091936:5 ENDOMETRIAL BX/CURETTINGS See Note (Normal) Comments: Test performed at:[facility] [address] [place] [address] 4 Comments: Patient: TIN BLACKWOOD : 1960 (53/F) Acct Num: [id number] Phys: Allie Bales MD Unit Num: [id number] Loc: [facility] [place] Specimen: [id number] Received: 11/06/14 - 1230 Spec Type: ENDOM BX/C TISSUES TISSUES: GROSS DESCRIPTION Received is one container labeled with the patient name and designated endometrial curettings. The specimen consists of multiple fragments o f hemorrhagic soft tissue measuring in aggregate 5 x 2 x 0.2 cm. The entire specimen is submitted in two cassettes. / SJ:yi 11/06/14 TC:5 CPT: 06923 HEADER OPERATION: Hysteroscopy, diagnosti c, D AND C PRE-OP DIAGNOSIS: Menorrhagia, thickened endometrium TISSUE SUBMITTED: Endometrial curettings MICROSCOPIC DIAGNOSIS Endometrium, curettings: Secretory endometrium. AM:s indra 11/07/14 Signed Michael Frandy 11/07/14 <signature on file> 3-Xmd-202161:48 Partial Thromboplast Time Comments: Test performed at:[facility] [address] [place] [address] PTT 26.6 s (Normal) Range: 24.1-36.2 5-Adz-328893:48 Prothrombin Time w/INR Comments: Test performed at:[facility] [address] [place], [place] [address] INR 0.9 (Normal) PROTIME 12.2 s (Normal) Range: 11.7-14.9 8-Igc-398768:18 ,Urine Comments: Order Date: 11/06/14Has pt arrived? YTest performed at:[facility] [address] [place] [address] HCGUQUAL Negative {Negative} (Normal) Comments: Very dilute urine specimens, as indicated by a low specificgravity, may not contain product representative levels of hCG.If is still suspected, a first morning urinespecimen should be collected 48 hours later and tested. :26 Estradiol Comments: Test performed at:[facility] Nrnzqcwoco[address] [place] [address] ESTRADIOL 13.1 pg/mL (Normal) Comments: NORMAL REFERENCE RANGES FEMALE FOLLICULAR 21.4 - 164.8 pg/mL MID-CYCLE PEAK 49.9 - 367.2 pg/mL LUTEAL 40.2 - 259.0 pg/mL POST-MENOPAUSAL ON MHT <11.0 - 462.1 pg/mL NOT ON MHT <11.0 - 58.3 pg/mL MALE <11.0 - 52 .5 pg/mLNEW TEST METHOD AND REFERENCE RANGE SEPTEMBER 22, 2011:26 Free T3 Comments: Test performed at:[facility] [address]hr[address] [place] [address] FREE T3 3.0 pg/mL (Normal) Range: 2.18-3.98 :26 Hemoglobin A1c Comments: Test performed at:[facility] F[address]wzoogl[address] [place] [address] ; ordered by other doctor HGB A1C 5.7 % (Normal) Range: 4.2-6.3 :26 Progesterone Level Comments: Test performed at:[facility] [address]ybqzjyiaz[address] [place] [address] Progesterone 0.34 ng/mL (Normal) Comments: Progesterone Reference Table: UNITS Female: Follicular 0.15 - 1.40 ng/mL Luteal 3.34 - 25.56 ng/mL Mid-luteal 4.44 - 28.03 ng/mL Postmenopausal 0.0 - 0.73 ng/mL : 1st Trimester 11.22 - 90.00 ng /mL 2nd Trimester 25.55 - 89.40 ng/mL 3rd Trimester 48.40 -422.50 ng/mL :26 T4 Free Direct Comments: Test performed at:[facility] [address]mw[address] [place] [address] T4 FREE DIRECT 0.77 ng/dL (Normal) Range: 0.76-1.46 :26 Testosterone, Serum Total Comments: Test performed at:[facility] [address] [place] [address] Testosterone 30 ng/dL (Normal) Range: 14-76 Comments: ADDENDA: ordered by Dr. Bales :26 Thyroid Stim Hormone (TSH) Comments: Test performed at:[facility] [address]cr[address] [place] [address] TSH 0.84 {uIU/mL} (Normal) Range: 0.358-3.74 9-Iuo-518881:03 17-Hydroxypregnenolone, MS Comments: PATIENT NOT FASTINGPERFORMED BY: [employer]70 [address] [facility] HospitalDriveKAtrium Health [facility] [id number] BY: [employer] Lcaciduijzmal6509 [facility] [id number] 17 [place] Pregnenolone, 14 ng/dL (Abnormal) Comments: Reference Range:Adults: 53 - 357 Serum, MS hCG,Beta Negative m[iU]/mL Comments: PATIENT NOT FASTINGPERFORMED BY: [employer] Zjpkao2821 [facility] [place] [id number] BY: [employer] Lkppbdutpkayz2660 [facility] [id number] 2:03 Subunit,Qual,Serum (Normal) Prolactin 10.9 ng/mL (Normal) Comments: PATIENT NOT FASTINGPERFORMED BY: [employer] Zrhblq7669 [address] [facility] [id number] BY: [employer] Nyevtynmblkvc2584 [facility] [id number] 2:03 Range: 4.8-23.3 :03 Prothrombin Time (PT) Comments: PATIENT NOT FASTINGPERFORMED BY: [employer] LabRegulus Therapeuticsrp Gzjeng2632 [place] [facility] [id number] BY: [employer] Taasjjrqhzizp4935 [facility] [id number] 11Clinical Information: [id number], [id number] Prothrombin Time 10.5 {sec} (Normal) Range: 9.1-12.0 INR 1.0 (Normal) Range: 0.8-1.2 Comments: Reference interval is for non-anticoagulated patients. . Suggested INR therapeutic range for Vitamin K anta gonist therapy: Standard Dose (moderate intensity therapeutic range): 2.0 - 3.0 Higher intensity therapeutic range 2.5 - 3.5 8-Egz-304862:03 PTT, Activated Comments: PATIENT NOT FASTINGPERFORMED BY: [address] [id number] BY: [employer] [address] [id number] aPTT 27 {sec} (Normal) Range: 24-33 Comments: This test has not been validated for monitoring unfractionated heparintherapy. aPTT-based therapeutic ranges for unfractionated heparintherapy have not been established. For general guidelines onHeparin monitoring, refer to the [facility] Directory of Services. 8-Mbh-967662:03 Thyroxine (T4) Free, Comments: PATIENT NOT FASTINGPERFORMED BY: [address] [id number] BY: [employer] [address] [id number] Direct, S T4,Free(Direct) 0.87 ng/dL (Normal) Range: 0.82-1.77 5-Vvn-291065:0 TSH 0.723 {uIU/mL} Comments: PATIENT NOT FASTINGPERFORMED BY: [address] [id number] BY: [employer] [address] [id number] 3 (Normal) Range: 0.450-4.500 9-Uvd-254543:01 CBC W/Diff, Automated Comments: Test performed at:[facility] [address]ccvymbl[address] [place], [place] [address] Absolute Lymph 1.51 {X10_3/ul} (Normal) Range: 0.83-4.51 [...] 4.2-5.4 WBC 5.7 K/mm3 (Normal) Range: 4.4-11.0 3-Sat-552715:01 Comprehensive Metabolic Profil Comments: Test performed at:[facility] [address]zfesdzpv[address] [place], [place] [address] GAP 7 (Normal) Range: 5-15 CO2 28.0 [...] 7-18 GLU 94 mg/dL (Normal) Range: 70-110 05-Adv-462828:09 Urine Test, Office (31317) Urine Test, Office Negative (Normal) 08-Aki-983872:09 Urinalysis, Office (73803) UA - LEUKOCYTE ESTERASE Negative (Normal) UA - NITRITE Negative (Normal) URINE UROBILINGN SRAVANI TIMED Normal mg/dL (Normal) UA - PROTEIN Negative mg/dL (Normal) UA - PH 6 (Abnormal) UA - BLOOD Negative (Normal) UA - SPECIFIC GRAVITY 1.025 (Normal) UA - KETONES Negative mg/dL (Normal) UA - BILIRUBIN Negative (Normal) UA - GLUCOSE Negative (Normal) 9-Zjd-785518:14 CBC W/Diff, Automated Comments: Test performed at:[facility] Cktiwmuizi45[address] [place] [address] Absolute Lymph 2.05 {X10_3/ul} (Normal) Range: 0.83-4.51 [...] 4.2-5.4 WBC 8.6 K/mm3 (Normal) Range: 4.4-11.0 8-Qpw-822184:14 Comprehensive Metabolic Profil Comments: Test performed at:[facility] Fkgbqhnuiz1027 [address] [place], [place] [address] GAP 2 (Abnormal) Range: 5-15 CO2 32.0 [...] 7-18 GLU 102 mg/dL (Normal) Range: 70-110 :18 CBCD ALC 1.55 {X10_3/ul} (Normal) Range: 0.83-4.51 [...] 4.2-5.4 WBC 7.2 K/mm3 (Normal) Range: 4.4-11.0 :18 CMP GAP 4 (Abnormal) Range: 5-15 CO2 [...] 7-18 GLU 92 mg/dL (Normal) Range: 70-110 0-Vee-395740:31 CBCD ALC 1.45 {X10_3/ul} (Normal) Range: 0.83-4.51 [...] 4.2-5.4 WBC 7.6 K/mm3 (Normal) Range: 4.4-11.0 0-Net-883719:45 CMP GAP 8 (Normal) Range: 5-15 CO2 [...] Range: 70-110 :50 Blood Glucose , Office (36315) Blood Glucose , Office 143 (Normal) Comments: non-fasting :50 HgA1C , Office (84958) HgA1C , Office 5.8 % (Normal) Range: 4.6 - 7.1 :36 ISIAH Negative (Normal) Comments: Performed at: - [facility] [id number] Director: Ricardo Pace MD, Phone: [phone] CCP < 1 {units} (Normal) Range: 0-19 Comments: Negative <20Weak positive 20 - 39Moderate positive 40 - 59Strong positive >59Performed at: - [facility] [address] [id number] Director: Stepan Hernandez MD, Phone: [phone] :[phone] CRP 3.36 mg/L (Abnormal) Range: 0.0-3.0 [...] (Normal) Range: 0.358-3.74 :46 HgA1C , Office (48331) HgA1C , Office 5.7 % (Normal) Range: 4.6 - 7.1 :46 Blood Glucose , Office (40406) Blood Glucose , Office 106 (Normal) :51 HgA1C , Office (61236) HgA1C , Office 5.8 % (Normal) Range: 4.6 - 7.1 :51 Blood Glucose , Office (13660) Blood Glucose , Office 122 (Normal) Comments: non-fasting :05 HgA1C , Office (69540) HgA1C , Office 5.8 % (Normal) Range: 4.6 - 7.1 :04 Blood Glucose , Office (18703) Blood Glucose , Office 137 (Normal) :25 HgA1C , Office (30220) HgA1C , Office 5.7 % (Normal) Range: 4.6 - 7.1 :25 Blood Glucose , Office (17478) Blood Glucose , Office 96 (Normal) 29-Qxy-342954:33 HEPATIC FUNCTION PANEL Comments: PATIENT NOT FASTINGPERFORMED BY: [facility]6370 [facility] [id number] (22297) Alkaline Phosphatase, S 46 [iU]/L (Normal) Range: [...] Total, Serum 6.7 g/dL (Normal) Range: 6.0-8.5 :33 Renal function Panel Comments: PATIENT NOT FASTINGPERFORMED BY: NILE [facility] Wfmnjv[address] [place] [id number] Information: [id number] DRAW FEE [id number] (18344) Albumin, Serum 4.3 g/dL (Normal) Range: 3.5-5.5 [...] Glucose, Serum 105 mg/dL (Abnormal) Range: 65-99 72-Ufw-707771:04 Urinalysis, Office (63896) UA - BILIRUBIN Negative (Normal) UA - BLOOD Negative (Normal) UA - GLUCOSE Negative (Normal) UA - KETONES Negative mg/dL (Normal) UA - LEUKOCYTE ESTERASE Negative (Normal) UA - NITRITE Negative (Normal) UA - PH 6.0 (Normal) UA - PROTEIN Negative mg/dL (Normal) UA - SPECIFIC GRAVITY 1.025 (Normal) URINE UROBILINGN SRAVANI TIMED Normal mg/dL (Normal) 11-Qqu-691561:41 HgA1C , Office (16175) HgA1C , Office 5.9 % (Normal) Range: 4.6 - 7.1 :42 LQDPAP [id number] PAPSMR Comment (Normal) Comments: The Pap smear [...] no HPV testing was performed. .Performed at: [address] guerraton [place] [id number] Director: John Echeverria MD, Phone: [phone] COMM . (Normal) DIAGN Comment (Normal) Comments: NEGATIVE FOR INTRAEPITHELIAL LESION AND MALIGNANCY.Satisfactory for evaluation. Endocervical and/or squamous metaplasticcells (endocervical component) are present.Holly Reed, Student Union Consultant (ASCP)T his liquid based ThinPrep(R) pap test was screened withthe use of an image guided system. 51-Ubj-923373:20 TSH (95434) Comments: PATIENT WAS FASTINGPERFORMED BY: [facility]6370 [facility] [id number] TSH 2.160 {uIU/mL} (Normal) Range: 0.450-4.500 31-Vda-802293:20 MICROALBUMIN: CREATININE RATIO Comments: PATIENT WAS FASTINGPERFORMED BY: [facility]6370 [facility] [id number] (59282) AND (63575) Microalb/Creat Ratio 2.3 {mg/g_creat} (Normal) Range: 0.0-30.0 Microalbumin, Urine 1.6 ug/mL (Normal) Range: 0.0-17.0 Creatinine, Urine 70.5 mg/dL (Normal) Range: 15.0-278.0 75-Del-536898:20 METABOLIC PANEL, COMPREHENSIVE Comments: PATIENT WAS FASTINGPERFORMED BY: [facility]6370 [facility] [id number] (17725) ALT (SGPT) 19 [iU]/L (Normal) Range: 0-40 [...] Glucose, Serum 109 mg/dL (Abnormal) Range: 65-99 89-Drx-461531:20 LIPID PANEL (07460) Comments: PATIENT WAS FASTINGPERFORMED BY: [employer]70 Spl[place].itAtrium Health Pineville [id number] LDL/HDL Ratio 1.4 {ratio_units} (Normal) Range: 0.0-3.2 LDL Cholesterol Calc 108 mg/dL (Abnormal) Range: 0-99 VLDL Cholesterol Zaria 16 mg/dL (Normal) Range: 5-40 HDL Cholesterol 78 mg/dL (Normal) Comments: According to ATP-III Guidelines, HDL-C >59 mg/dL is considered anegative risk factor for CHD. Cholesterol, Total 202 mg/dL (Abnormal) Range: 100-199 Triglycerides 82 mg/dL (Normal) Range: 0-149 70-Lpp-326292:20 CBC WITH MANUAL DIFF Comments: PATIENT WAS FASTINGPERFORMED BY: [employer]70 [facility] [id number] Information: ADD [id number] AND DRAW FEE 99 3122 (73105) Immature Grans (Abs) 0.0 {x10E3/uL} (Normal) Range: [...] 3.80-5.10 WBC 5.2 {x10E3/uL} (Normal) Range: 4.0-10.5 90-Xsm-336201:05 URINE ALISSON CULTURE-SRAVANI COL Comments: PATIENT NOT FASTINGPERFORMED BY: NILE [facility] [place] [facility] [id number] Information: SRC:UR [id number] COUNT (94703) Antimicrobial MIHEAD (Normal) Comments: S = Susceptible; [...] Final report (Normal) Culture,Comprehensive :51 Urinalysis, Office (79960) UA - BILIRUBIN Negative (Normal) UA - BLOOD Hemolyzed Trace (Normal) UA - GLUCOSE Negative (Normal) UA - KETONES Negative mg/dL (Normal) UA - LEUKOCYTE ESTERASE Large (Normal) UA - NITRITE Negative (Normal) UA - PH 6.5 (Normal) UA - PROTEIN Negative mg/dL (Normal) UA - SPECIFIC GRAVITY 1.015 (Normal) URINE UROBILINGN SRAVANI TIMED Normal mg/dL (Normal) 29-Fkc-448406:53 CBC (Auto) (37213) Comments: PATIENT NOT FASTINGPERFORMED BY: [facility] Cjqclk1794 [facility] [id number] Information: [id number] Platelets 271 {x10E3/uL} (Normal) Range: 140-415 RDW 13.4 % (Normal) Range: 11.7-15.0 MCHC 34.0 g/dL (Normal) Range: 32.0-36.0 MCH 31.0 pg (Normal) Range: 27.0-34.0 Hematocrit 37.9 % (Normal) Range: 34.0-44.0 MCV 91 fL (Normal) Range: 80-98 Hemoglobin 12.9 g/dL (Normal) Range: 11.5-15.0 RBC 4.16 {x10E6/uL} (Normal) Range: 3.80-5.10 WBC 4.7 {x10E3/uL} (Normal) Range: 4.0-10.5 :53 Potassium Serum (38312) Comments: PATIENT NOT FASTINGPERFORMED BY: [facility] [id number] [facility] [id number] Potassium, Serum 4.9 mmol/L (Normal) Range: 3.5-5.2 50-Aad-91438:17 GALLBLADDER Radiology Report See Note (Normal) Comments: [...] 42 U/L (Normal) Comments: RESULTS FAXED 05/24/10 8904 CARLOS CAMPOS. 13:17 Range: 25-115 64-Yfh-499463:17 CBCD,SMEAR DIFF RED CELL MORPH SeeNote {NORMAL} [...] 4.2-5.4 WBC 3.0 K/mm3 (Abnormal) Range: 4.4-11.0 37-Hen-918050:17 COMP METABOLIC Comments: RESULTS FAXED 05/24/10 1522 CARLOS CAMPOS. GAP 8 (Normal) Range: 5-15 CL 105 [...] 0.6-1.0 GLU 82 mg/dL (Normal) Range: 70-110 81-Meq-287798:17 LIPASE 124 U/L (Normal) Comments: RESULTS FAXED 05/24/10 1522 LA CAMPOSCY. Range: 70-290 Comments: Please note:LIPASE revised reference range effective 09. 2-Hdv-922103:38 CBCD,SMEAR DIFF RED CELL MORPH SeeNote {NORMAL} [...] 4.2-5.4 WBC 5.3 K/mm3 (Normal) Range: 4.4-11.0 0-Jip-905966:38 COMP METABOLIC GAP 8 (Normal) Range: 5-15 [...] 0.6-1.0 GLU 86 mg/dL (Normal) Range: 70-110 :38 LIPID LDL 98 mg/dL (Normal) Range: 0-130 [...] Very High > or = 500 mg/dL 1-Zso-212950:38 MICROALB:CRE UR MALB:CREAT 13.5 {mg/g_CRE} (Normal) MICROALBUMIN,UR 5.2 mg/L (Normal) UR CREAT 38.5 mg/dL (Normal) :38 TSH 0.50 {uIU/mL} (Normal) Range: 0.358-3.74 5-Dww-276260:03 Urinalysis, Office (64120) UA - BILIRUBIN Negative (Normal) UA - BLOOD Hemolyzed Trace (Normal) UA - GLUCOSE Negative (Normal) UA - KETONES Negative mg/dL (Normal) UA - LEUKOCYTE ESTERASE Negative (Normal) UA - NITRITE Negative (Normal) UA - PH 6.5 (Normal) UA - PROTEIN Negative mg/dL (Normal) UA - SPECIFIC GRAVITY 1.020 (Normal) URINE UROBILINGN SRAVANI TIMED Normal mg/dL (Normal) 63-Fmp-128883:01 Urinalysis, Office (69162) UA - BILIRUBIN Moderate (Normal) UA - BLOOD Hemolyzed Large (Normal) UA - GLUCOSE Negative (Normal) UA - KETONES Negative mg/dL (Normal) UA - LEUKOCYTE ESTERASE Negative (Normal) UA - NITRITE Negative (Normal) UA - PH 6.0 (Normal) UA - PROTEIN Negative mg/dL (Normal) UA - SPECIFIC GRAVITY 1.010 (Normal) URINE UROBILINGN SRAVANI TIMED Normal mg/dL (Normal) 20-Wke-534831:46 URINE ALISSON CULTURE-IDENTIFICATN Comments: PATIENT NOT FASTINGPERFORMED BY: 3C [facility] CenterXurhtb0812 [facility] [id number] Information: [id number] ([id number]) Result 1 NG36 (Normal) Comments: No growth in 36 - 48 hours. Urine Culture,Comprehensive Final report (Normal) 16-Fpj-898815:00 TSH (75494) Comments: PATIENT WAS FASTINGPERFORMED BY: [employer] Btlvae4007 [facility] [id number] TSH 1.190 {uIU/mL} (Normal) Range: 0.450-4.500 56-Suy-408193:00 METABOLIC PANEL, COMPREHENSIVE Comments: PATIENT WAS FASTINGPERFORMED BY: 3[facility] PlusH[facility] CenterBiyunb1987 [facility] [id number] ([id number]) A/G Ratio 1.7 (Normal) Range: 1.1-2.5 Albumin, [...] Sodium, Serum 139 mmol/L (Normal) Range: 135-145 69-Lqf-280759:00 LIPID PANEL (08144) Comments: PATIENT WAS FASTINGPERFORMED BY: [facility] [id number] Cholesterol, Total 231 mg/dL (Abnormal) Range: 100-199 HDL Cholesterol 79 mg/dL (Normal) Comments: According to ATP-III Guidelines, HDL-C >59 mg/dL is considered anegative risk factor for CHD. LDL Cholesterol Calc 127 mg/dL (Abnormal) Range: 0-99 LDL/HDL Ratio 1.6 {ratio_units} (Normal) Range: 0.0-3.2 Triglycerides 123 mg/dL (Normal) Range: 0-149 VLDL Cholesterol Zaria 25 mg/dL (Normal) Range: 5-40 83-Yrb-032019:00 CBC WITH MANUAL DIFF (06392) Comments: PATIENT WAS FASTINGClinical Information: [id number] PERFORMED BY: [facility] [id number] Baso (Absolute) 0.0 {x10E3/uL} (Normal) Range: 0.0-0.2 [...] Culture,Comprehensive Comments: Clinical Information: SRC:UR PERFORMED BY: LabCo[facility] CenterZqbjxt2823 [facility] [id number] Result 1 ECV (Normal) Comments: Escherichia coli, [...] S Urine Final report (Normal) Culture,Comprehensiv e 78-Yok-667112:59 Urinalysis, Office (37643) UA - BILIRUBIN Negative (Normal) UA - BLOOD Hemolyzed Moderate (Normal) UA - GLUCOSE Negative (Normal) UA - KETONES Negative mg/dL (Normal) UA - LEUKOCYTE ESTERASE Moderate (Normal) UA - NITRITE Negative (Normal) UA - PH 6.0 (Normal) UA - PROTEIN Negative mg/dL (Normal) UA - SPECIFIC GRAVITY 1.015 (Normal) URINE UROBILINGN SRAVANI TIMED 2 mg/dL (Normal) 56-Jyt-612859:54 URINALYSIS W/O MICRO (20874) Comments: PATIENT WAS FASTINGPERFORMED BY: [employer]70 [facility] [id number] Appearance Clear (Normal) Bilirubin Negative (Normal) Glucose Negative (Normal) Ketones Negative (Normal) Microscopic Examination MICRON (Normal) Comments: Microscopic follows if indicated. Nitrite, Urine Negative (Normal) Occult Blood Negative (Normal) pH 6.5 (Normal) Range: 5.0-7.5 Protein Negative (Normal) Specific [place] 1.012 (Normal) Range: 1.005-1.030 Urine-Color Yellow (Normal) Urobilinogen,Semi-Qn 0.2 mg/dL (Normal) Range: 0.0-1.9 WBC Esterase Negative (Normal) 51-Rcd-716066:54 TSH (53419) Comments: PATIENT WAS FASTINGPERFORMED BY: [employer]6370 [facility] [id number] TSH 1.015 {uIU/mL} (Normal) Range: 0.450-4.500 07-Ruj-564582:54 METABOLIC PANEL, COMPREHENSIVE Comments: PATIENT WAS FASTINGPERFORMED BY: [employer]70 [facility] [id number] (43666) A/G Ratio 1.5 (Normal) Range: 1.1-2.5 Albumin, [...] Serum 113 mg/dL (Abnormal) Range: 65-99 If -Bruneian >59 mL/min/1.73 Comments: Note: Persistent reduction for [...] Sodium, Serum 140 mmol/L (Normal) Range: 135-145 :54 LIPID PANEL (32513) Comments: PATIENT WAS FASTINGPERFORMED BY: [facility]6370 [facility] [id number] Cholesterol, Total 199 mg/dL (Normal) Range: 100-199 [...] Cholesterol Zaria 26 mg/dL (Normal) Range: 5-40 47-Hes-491086:54 CBC WITH MANUAL DIFF (03267) Comments: PATIENT WAS FASTINGClinical Information: ADD DRAW FEE [id number] ADD J 97553 PERFORMED BY: LabCoH[facility] CenterRjeqrc2834 [facility] [id number] Baso (Absolute) 0.0 {x10E3/uL} (Normal) Range: 0.0-0.2 [...] change for the pediatric CBC With Differential/Platelet 84-Itu-847354:32 PELVIC (NON-PREG) (HP) Radiology Report See Note (Normal) Comments: Exam Number: [id number] PELVIC ULTRASOUND HISTORYOvarian cyst, left side. COMPARISON STUDYApril 2006 Transabdominal imaging was performed. The previously-noted 2.3 [...] 26, 2006. Reported By: MANSI SINGER M.D. 2-Ssl-562451:42 ISIAH-D [id number] ISIAH-DIRECT 32 U/mL (Normal) Range: 0-99 Comments: [...] cardiovasculardisease. Reference: High risk CRP >3.0 mg/L 3-Ugq-553343:42 CBCD,SMEAR DIFF BAND 5 % (Normal) Range: [...] Range: 0.2 - 1.0 :42 T3, FREE 69761 2.8 pg/mL (Normal) Range: 2.3-4.2 Comments: Performed At: [address] [id number] :42 T4 FREE,DIRECT 1.0 ng/dL (Normal) Range: 0.89-1.76 :42 TSH 0.54 {uIU/mL} (Normal) Range: 0.34-4.82 :56 MAMM, UILAT DIAG DIGITAL & CAD Radiology Report See Note (Normal) Comments: Exam Number: [id number] MAMMOGRAPHY, RIGHT UNILATERAL DIAGNOSTIC DIGITAL AND CAD [...] mammograms werealso examined with computer-aided detection software ([employer] Reported By: AARON DE ANDA M.D. 86-Zvw-165122:59 MAMM, BILAT SCRN DIGITAL & CAD Radiology Report See Note (Normal) Comments: Exam Number: [id number] BILATERAL SCREENING DIGITAL MAMMOGRAM CLINICAL INFORMATIONScreening. TECHNIQUEBilateral [...] werealso examined with computer- aided detection software ([employer] Reported By: SUSI MACK M.D. 17-Snr-027721:59 PELVIC (NON-PREG) (HP) Radiology Report See Note (Normal) Comments: Exam Number: [id number] TRANSABDOMINAL PELVIC ULTRASOUND CLINICAL STATEMENTLower abdominal pain. [...] Anxiety: emotional health Indication: Impaired fasting glucose [employer] 3. (Renamed from [employer]) : *Well Female Maintenance (KF) Indication: Tud[employer]V . (Renamed from [employer]) [employer] V7. (Renamed from [employer]) : Pap/Pelvic/Bimanual/Rectal/Breast Exam was done. Indication: [employer] 3. (Renamed from [employer]) Dysuria : Water in diet, brief version Indication: Dysuria Dysuria : *UTI treatment Indication: Dysuria Dysuria : *UTI treatment Indication: Dysuria Dysuria : UTI treatment Indication: Dysuria Fatigue : FOLLOW UP IN 2 WEEKS Indication: Fatigue Fatigue : *fatigue education Indication: Fatigue Planned Observations MICROALBUMIN: CREATININE RATIO (32927) AND (04655)Indication: Hypertension On: :52 Request URINALYSIS (11733)Indication: Hypertension On: :52 Request CBC WITH MANUAL DIFF (53883)Indication: Hypertension On: :52 Request Metabolic Panel, Comprehensive (52355)Indication: Hypertension On: :52 Request Anti-TPO Antibody (09510)Indication: Subclinical hyperthyroidism On: :40 Request Comments: check in February T4, FREE (THYROXINE) (56449)Indication: Subclinical hyperthyroidism On: :40 Request Comments: check in February T-3 UPTAKE (93551)Indication: Subclinical hyperthyroidism On: :40 Request Comments: recheck February TSH (68464)Indication: Subclinical hyperthyroidism On: :40 Request Comments: recheck February CULTURE, SPUTUM (18405)Indication: COPD with acute exacerbation (Renamed from Acute exacerbation of chronic obstructive airways disease) On: 1-Jpx-649077:45 Request Anti-TPO Antibody (38118)Indication: Abnormal blood chemistry On: 8-Drk-686671:18 Request T3, FREE (TRIDOTHYRONINE) (36960)Indication: Abnormal blood chemistry On: :18 Request T4, FREE (THYROXINE) (59677)Indication: Abnormal blood chemistry On: 6-Ykh-143562:18 Request TSH (21274)Indication: Abnormal blood chemistry On: 7-Qyk-457573:18 Request D-Dimer (93596)Indication: Chest pain On: :49 Request Comments: do all labs stat...zaria to on zaria Dr. if abnormal CPK MB FRACTION (95912)Indication: Chest pain On: 1-Kbg-362259:22 Request CREATINE KINASE TOTAL (84283)Indication: Chest pain On: 2-Tcw-189955:22 Request Metabolic Panel, Comprehensive (78158)Indication: Fatigue On: 3-Any-831329:06 Request CBC, Platelets & Auto Diff (57038)Indication: Immunocompromised On: 5-Exw-398791:03 Request CULTURE, SPUTUM (18283)Indication: Bronchitis, acute On: 5-Bxu-887806:58 Request METABOLIC PANEL, COMPREHENSIVE (92660)Indication: Benign essential hypertension On: 02-Ojw-251377:57 Request LIPID PANEL (86132)Indication: Benign essential hypertension On: 76-Kag-088618:57 Request T4, FREE (THYROXINE) (70019)Indication: Perimenopausal menorrhagia On: 0-Dxp-276338:00 Request TSH (THYROID STIMULATING HORMONE) (91657)Indication: Perimenopausal menorrhagia On: 6-Sov-932560:59 Request Comments: fax copy all labs to Dr. bales HCG (HUMAN CHORIONIC GONADOTROPIN) (29959)Indication: Perimenopausal menorrhagia On: 0-Xfc-302156:57 Request PTT (ACTIVATED PARTIAL THROMBOPLASTIN TIME) (06333)Indication: Perimenopausal menorrhagia On: 7-Hfl-677172:57 Request PT/INR, Office (97051)Indication: Perimenopausal menorrhagia On: 9-Dyc-112106:57 Request 17-HYDROXYPREGNENOLONE (68541)Indication: Perimenopausal menorrhagia On: 2-Gwl-313527:57 Request PROLACTIN (15683)Indication: Perimenopausal menorrhagia On: 5-Mvk-774278:57 Request LIPID PANEL (33158)Indication: Benign essential hypertension On: 75-Xqj-040154:28 Request CCP ANTIBODY (64324)Indication: Acute rheumatoid arthritis On: 94-Ppd-005530:17 Request SED RATE ERYTHROCYTE (20669)Indication: Acute rheumatoid arthritis On: 71-Ssc-072517:17 Request C-REACTIVE PROTEIN (96099)Indication: Acute rheumatoid arthritis On: 26-Mcp-395469:17 Request TSH (18106)Indication: Acute rheumatoid arthritis On: 47-Wwc-383916:17 Request RHEUMATOID FACTOR-QUANT (84142)Indication: Acute rheumatoid arthritis On: 36-Qkv-002441:17 Request ISIAH (ANTINUCLEAR ANTIBODY) (90788)Indication: Acute rheumatoid arthritis On: 31-Axt-918410:17 Request URINALYSIS, W/ MICRO (72209)Indication: Benign essential hypertension On: 2-Vvv-518806:20 Request METABOLIC PANEL, COMPREHENSIVE (49912)Indication: Benign essential hypertension On: 3-Edc-420853:20 Request LIPID PANEL (18841)Indication: Benign essential hypertension On: 0-Bnz-236825:20 Request CBC WITH MANUAL DIFF (11632)Indication: Benign essential hypertension On: 2-Epu-065666:20 Request URINE ALISSON CULTURE (SRAVANI COL COUNT) (89379)Indication: Hematuria On: 30-Yqw-634404:04 Request METABOLIC PANEL, COMPREHENSIVE (00118)Indication: Nausea and vomiting On: 19-Teg-122562:02 Request CBC WITH MANUAL DIFF (22513)Indication: Nausea and vomiting On: :02 Request Lipase (97337)Indication: Nausea and vomiting On: : Request Amylase (95087)Indication: Nausea and vomiting On: : Request OVA & PARASITE DIR SMEAR (04589)Indication: Diarrhea On: : Request C.Difficile, Stool (01870)Indication: Diarrhea On: : Request LEUKOCYTE COUNT, FECAL (42097)Indication: Diarrhea On: : Request ALISSON CULTURE-STOOL (52123)Indication: Diarrhea On: :01 Request TSH (58376)Indication: Depression On: 3-Xsm-033649:10 Request MICROALBUMIN: CREATININE RATIO (72176) AND (34847)Indication: Benign essential hypertension On: 3-Tzh-572622:10 Request METABOLIC PANEL, COMPREHENSIVE (09164)Indication: Benign essential hypertension On: 8-Ctf-282316:10 Request LIPID PANEL (71733)Indication: Benign essential hypertension On: 5-Lix-349470:09 Request CBC WITH MANUAL DIFF (32797)Indication: Benign essential hypertension On: 0-Dfr-533798:09 Request URINALYSIS W/O MICRO (82412)Indication: Benign essential hypertension On: :39 Request MICROALBUMIN URINE QUANT (39457)Indication: Benign essential hypertension On: :39 Request METABOLIC PANEL, COMPREHENSIVE (16749)Indication: Benign essential hypertension On: :39 Request LIPID PANEL (85510)Indication: Benign essential hypertension On: :39 Request ISIAH (ANTINUCLEAR ANTIBODY) (52623)Indication: Fatigue On: :39 Request C-REACTIVE PROTEIN (45121)Indication: Fatigue On: :39 Request CBC (AUTO) (56501)Indication: Fatigue On: :39 Request Folate (40549)Indication: Fatigue On: :39 Request METABOLIC PANEL, COMPREHENSIVE (51541)Indication: Fatigue On: :39 Request RHEUMATOID FACTOR-QUANT (22143)Indication: Fatigue On: :39 Request SED RATE ERYTHROCYTE (61577)Indication: Fatigue On: :39 Request TSH (43837)Indication: Fatigue On: :39 Request VITAMIN B-12 (CYANOCOBALAMIN) (41743)Indication: Fatigue On: :39 Request Planned Encounters Medical; [facility] 2 Month FU - On: 31-May-2018 13:00 [facility] Shasha Barker MD, MD, Dana M Planned Procedures Flu Vaccine (Quadrivalent) 31894Om: On: 30-Mar-2018 Intent Shasha Barker MD, MD, Dana M MRI OF LUMBAR SPINE WITH AND WITHOUT On: 18-Jan-2018 Intent CONTRAST (48916)By: Shasha Barker MD Comments: rule out cauda equina syndrome, back injection also in last [facility] Shasha Gillespie MD THYROID SCAN UPTAKE (43637)By: On: 16-Nov-2017 Intent Shasha Barker MD, MD, [...] (J2930)By: Shasha Barker MD Comments: Lot # [id number] solu medrol given right deltoid by Shasha Suggs lpn, MD Radiology - ChestBy: Mj AL, On: 15-May-2017 Intent Shasha Ba MD Solu- Medrol Injection, 125mg On: 12-May-2017 Intent (J2930)By: Shasha Barker MD, MD, Dana M Aerosol Treatment (56067)By: Mj On: 12-May-2017 Intent Shasha AL MD, Dana M EKG (97243)By: Shasha Barker MD On: 12-Mar-2017 Intent Shasha [...] MD, Dana M XRAY LEFT SMALL TOE (61044)By: On: 20-May-2016 Intent Shasha Barker MD, MD, Dana Comments: 5th digit focus on area of pain and get distal metatarsal bone M MAMMOGRAM BREAST BILATERAL SCREENING On: 06-May-2016 Intent DIGITAL (59592)By: Shasha Barker MD, MD, Dana M DEXA SCAN AXIAL SKELETON (06823)By: On: 06-May-2016 Intent Shasha Barker MD, MD, Dana M Ultrasound - RenalBy: Mj AL, On: 07-Aug-2015 Intent Shasha Ba MD Nuclear Stress Test/Stress On: 08-Jun-2015 Intent SPECT/AdenosineBy: Shasha Barker MD, MD, Dana M Radiology - ChestBy: Ophelia Boogie CNP On: 27-Feb-2015 Intent E Radiology - ChestBy: Ophelia Boogie CNP On: 05-Feb-2015 Intent E Ultrasound - PelvisBy: Chuyita ROSS On: 19-Jul-2014 Intent Ophelia Estrada EKG (22702)By: Shasha Barker MD On: 23-Jun-2013 Intent Shasha Barker MD Comments: see scanned document of test done to see results reviewed today with patient MAMMOGRAM, SCREENING, BOTH BREASTS On: 23-Jun-2013 Intent (46682)By: Shasha Barker MD, MD, Dana M Eprescribed prescriptions (G8553)By: On: 23-Jun-2013 Intent Shasha Barker MD, MD, Dana M Radiology - Hand - BilateralBy: On: 10-Feb-2013 Intent Shasha Barker MD, MD, Dana Comments: copy to Dr. kern and lior Whitten Eprescribed prescriptions (G8553)By: On: 10-Feb-2013 Intent Long DELINQUENT TAX COLLECTOR ASSISTANT, Riana L Eprescribed prescriptions (G8553)By: On: 11-Oct-2012 Intent Shasha Barker MD, MD, Dana M EKG (78280)By: Shasha Barker MD On: 11-Jun-2012 Intent Shasha Barker MD Eprescribed prescriptions (G8553)By: On: 11-Jun-2012 Intent Long DELINQUENT TAX COLLECTOR ASSISTANT, Riana L CT - Abdomen & Pelvis (IV Contrast On: 12-Mar-2012 Intent Needed)By: Shasha Barker MD, MD, Dana M MAMMOGRAM, SCREENING, BOTH BREASTS On: 29-Apr-2011 Intent (35242)By: Shasha Barker MD, MD, Dana M MAMMOGRAM, SCREENING, BOTH BREASTS On: 25-Apr-2011 Intent (13053)By: Shasha Barker MD, MD, Dana M EKG (15223)By: JACKIE Burno On: 26-Aug-2010 Intent Ultrasound - GallbladderBy: Fast DO, On: 27-May-2010 Intent Philomena A Ultrasound - GallbladderBy: Fast DO, On: 24-May-2010 Intent Philomena A Doppler Ultrasound OtherBy: Augustine On: 25-Apr-2010 Intent Jeannette FARAH Comments: L lower extrrem- eval for clot and eval bakers cyst? size ? leaking ? Radiology - ChestBy: Mj AL, On: 23-May-2009 Intent Shasha Ba MD EKG (74061)By: Shasha Barker MD On: 24-Apr-[address] - Brain/HeadBy: Shasha Barker MD On: 24-Apr-2009 Intent Shasha Gillespie MD EKG (45575)By: Shasha Barker MD On: 14-Apr-2008 Intent Shasha Barker MD MAMMOGRAM, SCREENING, BOTH BREASTS On: 14-Apr-2008 Intent (56698)By: Shasha Barker MD, MD, Dana M Ultrasound - PelvisBy: Mj AL, On: 23-Nov-2006 Intent Shasha Ba MD EKG (21064)By: PEGGY ROSE CNP On: 10-Aug-2006 Intent Comments: NSR Planned Medications INJECTION, METHYLPREDNISOLONE SODIUM SUCCINATE, UP TO 125 MG Ordered: 12-May-2017 Pending Shasha Barker MD, MD, Dana M INJECTION, METHYLPREDNISOLONE SODIUM SUCCINATE, UP TO 125 MG Ordered: 15-May-2017 Pending Shasha Barker MD, MD, Dana M Instructions Name Dates Details S/P hip replacement, left : Patient Instructions Indication: S/P hip replacement, left BMI 31.0-31.9,adult : How to access health [...] Impaired fasting glucose Encounters Office Visit On: 01-Apr-2018 8:37 Encounter Diagnosis: Acute rheumatoid arthritis End: 01-Apr-2018 8:51 [facility] Office Visit On: 30-Mar-2018 14:58 Encounter Diagnosis: S/P hip replacement, left, Avascular necrosis of left femur, Subclinical hyperthyroidism, Abnormal finding of kidney, MTHFR mutation, Frequent fasciculation of muscle of extremity, Pulmonary hypertension, Pain in left hip, End: 30-Mar-2018 15:37 Depression, Hyperlipidemia, mild, BMI 31.0-31.9,adult, Tobacco abuse, Fatigue, Postmenopausal (Renamed from Postmenopausal status), Fibromyalgia, Abnormal fasting glucose, Urinary incontinence in female, Nail fungus, Chronic interstitial cystitis, Hypertension, Degeneration of intervertebral disc of lumbar region, Leg pain, bilateral, Gastroesophageal reflux disease with esophagitis, Immunocompromised, Anxiety, Interstitial lung disease, Acute rheumatoid arthritis, Degenerative joint disease of cervical spine, Cerumen debris on tympanic membrane, left, COPD with acute exacerbation (Renamed from Acute exacerbation of chronic obstructive airways disease), Need for prophylactic vaccination and inoculation against influenza (Renamed from Need for immunization against influenza), BMI 30.0-30.9,adult [facility] Phone Encounter On: 19-Mar-2018 12:03 [facility] End: 19-Mar-2018 12:08 Lab Order On: 08-Mar-2018 13:50 Encounter Diagnosis: [...] date: (04-07-11).Encounter Diagnosis: WWV V73.21 (Renamed from [facility]) [facility] Office Visit On: 25-Apr-2011 [...] (311.), Fatigue (780.79), WWV V73.21 (Renamed from [facility]) [facility] Annotation/Addendum On: 02-Oct-2010 [...] disturbance (368.9), Headache (784.0), Backache, unspecified (724.5), [facility] Office Visit On: [...] left, use cockup splint, see juana in [place]--did ncs 1year ago--show CTS, xray of hand [...]
--- OUTSIDE RECORDS SUMMARY | 2018-05-29 01:03 | XMS RPT_ITS | Continuity of Care Document ---
:1960 Author Organization [facility] Address [address] [place] [address] Phone Care Team Providers Name Role Phone [...] going to see spine surgeon/functional medicine at [facility] Dr Martínez 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 Deliveries (Parity) Comments: [...] ca se this would be the cause. [facility] 2-18 ? aspiration ? imipramine [...] MD, Dana M Start : 03-Nov-2017 Active Comments:bnalnh6-1-26 called to Dannielle -er AmLODIPine Besylate 5 [...] End : 14-Jul-2017 Inactive Comments: d/c per [facility] had fatgiue and GI upset CIPRO, [...] End : 14-Jul-2017 Inactive Comments: d/c per [facility] LEUCOVORIN CALCIUM, 15MG (Oral Tablet) 1 (one) [...] Start : 29-Jan-2010 End : 08-Feb-2010 Inactive Arcadia 7.5-325 MG Oral Tablet 1 (one) Tablet two times daily for 0 days Quantity: 60 {Tablet} Refills: 0 Ordered:26-Jan-2017 JACKIE Bruno Start : 26-Jan-2017 End : 26-Jan-2017 Inactive Arcadia 7.5-325 MG Oral Tablet tid prn (7.5-325 [...] Quantity: 360 {Tablet} Refills: 0 Ordered:05-Mar-2015 Slarb [employer], Ambreen Start : 07-Sep-2014 End : 02-Sep-2015 [...] Quantity: 30 {Tablet} Refills: 3 Ordered:27-Feb-2015 Slarb [employer], Ambreen Start : 07-Sep-2014 End : 27-Feb-2015 Discontinued LODINE XL, 400MG (Oral Tablet Extended Release 24 Hour) 1 two times daily for 0 days Refills: 0 Ordered:03-Apr-2010 Long SEALER AIRCRAFTRiana End : 03-Apr-2010 Discontinued Comments:This order discontinued [...] and prednisone seeing Dr. Deangelo vallecillo in [place] next week. 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 adenomyosis. ? 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 wrote for mammo just in case will get Status: Inactive as of 15-Mar-2015 Yeast infection (B37.9, 112.9) Status: Inactive as of 15-Mar-2015 Procedures Procedure Dates Details ARTHROPLASTY, HIP, TOTAL (81744) Completed Comments: left @ [facility] 03-18-18 Dr. Wendy Mckoy Carpal Tunnel b/l wrist Completed Colonoscopy, Screening Completed Comments: 01-01-[address] Gutierrez Dilation and Curettage of Uterus Completed Nov-2015 kidney sx as Completed partial knee replacement -- Left Leg Completed .2010 right lobe resection-lung Completed Comments: February 2015 Date Value Details 10-Feb-2018 Lower Ext Joint Only W/WO Cont Result: Comments: See Note; NOTES: [facility] Imaging Services [address] [place] [address] Lower Ext Joint Only W/WO Cont MR#: [id number] Acct: [id number] Name: TIN BLACKWOOD Rep # : [id number] : 1960 F 57 From: Kadie Dailey MD PCP: Shasha Barker MD Status: REG CLI Study: Lower Ext Joint Only W/WO Cont Date of Exam: 02/10/18 Exam# [id number] Ordering Dr: CARLOS SHELBY M.D. STUDY: MRI [...] CC: CARLOS SHELBY M.D.; Shasha Barker MD Network Cable Installer: Signed 28-Jan-2018 Chest without Contrast Result: Comments: See Note; NOTES: [facility] Imaging Services [address] [place] [address] Chest without Contrast MR#: [id number] Acct: [id number] Name: TIN BLACKWOOD Rep #: [id number] : 1960 F 57 From: Vazquez Kaye MD PCP: Shasha Barker MD Status: REG CLI Study: Chest without Contrast Date of Exam: 01/28/18 Exam# [id number] Ordering Dr: Pelon Chatterjee MD STUDY: CT [...] CC: Shasha Barker MD; Pelon Chatterjee MD Network Cable Installer: Signed 20-Jan-2018 Emergency Department Summary Result: Comments: See Note; NOTES: [facility] Medical Records Department [address] [place] [address] Emergency Department Summary 01/19/18 1534 MR#: [id number] Acct: [id number] Name: TIN BLACKWOOD Rep #: [id number] : 1960 57 From: Rolando Mc MD [...] Lumbar radiculopathy This note was generated with [employer] dictation software. It may contain incorrect words, [...] your Primary Care Provider. Call [facility] ([phone]) or report t o the closest Emergency Room. Call 911 if necessary. 01/20/18 5612 <Electronically signed by Rolando Mc MD> Date Rolando Mc MD Cosigner Signature (If Indicated): Date CC: Shasha Barker MD 19-Jan-2018 Spine Lumbar (Routine) Result: Comments: See Note; NOTES: [facility] Imaging Services [address] [place] [address] Spine Lumbar (Routine) MR#: [id number] Acct: [id number] Name: TIN BLACKWOOD Rep #: [id number] : 1960 F 57 From: Nabeel Bernabe MD PCP: Shasha Barker MD Status: REG ER Study: Spine Lumbar (Routine) Date of Exam: 01/19/18 Exam# [id number] Ordering Dr: Rolando Mc MD STUDY: MRI [...] , CC: Shasha Barker MD; Rolando Mc Network Cable Installer: Signed 19-Jan-2018 Spine Lumbar (Routine) Result: Comments: See Note; NOTES: [facility] Imaging Services [address] [place] [address] Spine Lumbar (Routine) MR#: [id number] Acct: [id number] Name: TIN BLACKWOOD Rep #: [id number] : 1960 F 57 From: Nabeel Bernabe MD PCP: Shasha Barker MD Status: [facility] Study: Spine Lumbar (Routine) Date of Exam: 01/19/18 Exam# [id number] Ordering Dr: Rolando Mc MD STUDY: MRI [...] , CC: Shasha Barker MD; Rolando Mc Network Cable Installer: Signed 10-Dec-2017 Lower Ext/No Jt/w/o Result: Comments: See Note; NOTES: [facility] Imaging Services [address] [place] [address] Lower Ext/No Jt/w/o MR#: [id number] Acct: [id number] Name: TIN BLACKWOOD Rep #: [id number] : 1960 F 56 From: Julio Cannon MD PCP: Shasha Barker MD Status: REG CLI Study: Lower Ext/No Jt/w/o Date of Exam: 12/10/17 Exam# [id number] Ordering Dr: Nabeel Danielle DPM STUDY: MRI [...] CC: Shasha Barker MD; Nabeel Danielle DPM Network Cable Installer: Signed 18-Nov-2017 Thyroid Uptake Single or Mult Result: Comments: See Note; NOTES: [facility] Imaging Services [address] [place] [address] Thyroid Uptake Single or Mult MR#: [id number] Acct: [id number] Name: TIN BLACKWOOD Rep #: [id number] : 1960 F 56 From: Asif Pagan DO PCP: Shasha Barker MD Status: REG CLI Study: Thyroid Uptake Single or Mult Date of Exam: 11/18/17 Exam# [id number] Ordering Dr: Shasha Barker MD C LINICAL: [...] to the presence of visualized th yroid zmkzvsf-H-wcbmun thyroid gland. 3. No hypofunctioning, cold nodules are identified. Electronically Signed: Asif Pagan DO at 22:10 EDT Tel , Service support [phone], CC: Shasha Barker MD Network Cable Installer: Signed 16-Nov-2017 Spine Cervical (Routine) Result: Comments: See Note; NOTES: [facility] Imaging Services [address] [place] [address] Spine Cervical (Routine) MR#: [id number] Acct: [id number] Name: TIN BLACKWOOD Rep #: [id number] : 1960 F 56 From: Andrew Duran DO PCP: Shasha Barker MD Status: REG CLI Study: Spine Cervical (Routine) Date of Exam: 11/16/17 Exam# [id number] Ordering Dr: More Taylor MD STUDY: MRI [...] CC: More Taylor MD; Shasha Barker MD Network Cable Installer: Signed 03-Nov-2017 Pelvis 1 or 2 Views Result: Comments: See Note; NOTES: [facility] Imaging Services [address] [place] [address] Pelvis 1 or 2 Views MR#: [id number] Acct: [id number] Name: TIN BLACKWOOD Rep #: [id number] : 1960 F 56 From: Vale Godoy MD PCP: Shasha Barker MD Status: REG CLI Study: Pelvis 1 or 2 Views Date of Exam: 11/03/17 Exam# [id number] Ordering Dr: Shasha Bakrer MD STUDY: X-RAY - PELVIS REASON FOR [...] at 17:01 EDT Tel , Service support [phone], CC: Shasha Barker MD Network Cable Installer: Signed 27-Aug-2017 Orb Sella Post Fossa Ear w/o Result: Comments: See Note; NOTES: [facility] Imaging Services [address] [place] [address] Orb Sella Post Fossa Ear w/o MR#: [id number] Acct: [id number] Name: TIN BLACKWOOD Rep #: [id number] : 1960 F 56 From: Nir Dudley MD PCP: Shasha Barker MD Status: REG CLI Study: Orb Sella Post Fossa Ear w/o Date of Exam: 08/27/17 Exam# [id number] Ordering Dr: Dale Zuniga STUDY: CT TEMPORAL [...] CC: Beni Zuniga MD; Shasha Barker MD Network Cable Installer: Signed 25-May-2017 Chest PA and Lateral Result: Comments: See Note; NOTES: [facility] Imaging Services [address] [place] [address] Chest PA and Lateral MR#: [id number] Acct: [id number] Name: TIN BLACKWOOD Rep #: [id number] : 1960 F 56 From: Aguilar Joaquin MD PCP: Shasha Barker MD Status: REG RCR Study: Chest PA and Lateral Date of Exam: 05/25/17 Exam# [id number] Ordering Dr: Pelon Chatterjee MD STUDY: X-RAY [...] Aguilar Joaquin MD at 19:35 EST Tel [phone], Service support , CC: Shasha Barker MD; Pelon Chatterjee MD Network Cable Installer: Signed 15-May-2017 Chest PA and Lateral Result: Comments: See Note; NOTES: [facility] Imaging Services [address] [place] [address] Chest PA and Lateral MR#: [id number] Acct: [id number] Name: TIN BLACKWOOD Rep #: [id number] : 1960 F 56 From: Patrice Pinto MD PCP: Shasha Barker MD Status: REG CLI Study: Chest PA and Lateral Date of Exam: 05/15/17 Exam# [id number] Ordering Dr: Shasha Barker MD STUDY: X-RAY [...] Service support , CC: Shasha Barker MD Network Cable Installer: Signed 21-Jan-2017 Emergency Department Summary Result: Comments: See Note; NOTES: [facility] Medical Records Department [address] [facility] [place] [address] Emergency Department Summary 01/20/17 2344 MR#: [id number] Acct: [id number] Name: TIN BLACKWOOD Rep #: [id number] : 1960 56 From: Christian Hemphill PCP: [...] for ED Patient: Disposition: Acute Care Hospital [facility] Chief Complaint: Shortness of Breath Diagnosis: Pulmonary fibro sis, Hypoxemia, Elevated troponin, Pulmonary nodule, right Referrals: Shasha Barker MD [Primary Care Provider] - What to do if you have Problems For any increased pain, shortness of breath, bleedin g, nausea or vomiting, chest pain, or any unexpected problems, contact your Primary Care Provider. Call [facility] ([phone]) or report to the closest Emergency Room. Call 911 if necessary. 01/21/17 0231 <Electronically signed by Christian Hemphill> Date Christian Hemphill Cosigner Signature (If Indicated): Date CC: Shasha Barker MD 21-Jan-2017 CTA Chest W/WO Contrast Result: Comments: See Note; NOTES: [facility] Imaging Services [address] [place] [address] CTA Chest W/WO Contrast MR#: [id number] Acct: [id number] Name: TIN BLACKWOOD Rep #: [id number] : 1960 F 56 From: Stepan Mayberry MD PCP: Shasha Barker MD Status: REG ER Study: CTA Chest W/WO Contrast Date of Exam: 01/21/17 Exam# [id number] Ordering Dr: Christian Schrader DO STUDY: CTA [...] , CC: Shasha Barker MD; Christian Schrader Network Cable Installer: Signed 20-Jan-2017 Chest PA and Lateral Result: Comments: See Note; NOTES: [facility] Imaging Services [address] [place] [address] Chest PA and Lateral MR#: [id number] Acct: [id number] Name: TIN BLACKWOOD Rep #: [id number] : 1960 F 56 From: Stepan Mayberry MD PCP: Shasha Barker MD Status: REG ER Study: Chest PA and Lateral Date of Exam: 01/20/17 Exam# [id number] Ordering Dr: Christian Schrader DO STUDY: X-RAY [...] , CC: Shasha Barker MD; Christian Schrader Network Cable Installer: Signed 21-Nov-2016 PT D/C Summary (1) Result: Comments: See Note; NOTES: [facility] Physical Therapy [facility] [address] [place] [address]. [address] [place] [address] Fax REHABILITATION SERVICES [facility] SUMMARY MR#: [id number] Acct: [id number] Name: TIN BLACKWOOD Rep #: [id number] : 1960 55 From: Yury Lawrence PT, Cert. MDT, OCS Referring Dr.: Shasha Barker MD Status: REG RCR Insurance: A [facility] - PT D/C Summary It has been [...] please feel free to call me at [phone]. Thank you for the referral of this patient. Sincerely, Yury Lawrence PT, <Electronically signed by Yury Androsik PT, Cert. MDT, OCS> 11/21/16 1533 CC: Shasha Barker MD JLIra Signed 22-Oct-2016 Inital Evaluation (1) - PT Result: Comments: See Note; NOTES: [facility] Physical Therapy [facility] [address] [place] [address] Fax REHABILITATION SERVICES INITIAL EVALUATION MR#: [id number] Acct: [id number] Name: TIN BLACKWOOD Rep #: [id number] : 1960 55 From: Yury Lawrence PT, Cert. CASTILLO, OCS Referring Dr.: Shasha Barker MD Status: REG RCR Insurance: Meme Patient's Visit Information TIN BLACKWOOD is a [...] to be FAXED BACK to us at [phone] for Medicare purposes. Please let me know if there are questions or concerns regarding this plan of care. Physician Signature: Date: <Electronically signed by Yury Lawrence PT, Cert. T, OCS> 10/22/16 1356 CC: Shasha Barker MD MARIN Signed F or Medicare only, by signing this I certify the plan of care. Physicians Signature Date 11-Sep-2016 Chest PA and Lateral Result: Comments: See Note; NOTES: [facility] Imaging Services [address] [place] [address] Verdana 4d Chest PA and Lateral MR#: [id number] Acct: [id number] Name: TIN BLACKWOOD Rep #: [id number] : 1960 F 55 From: Hair Rogers MD PCP: Shasha Barker MD Status: REG CLI Study: Chest PA and Lateral Date of Exam: 09/11/16 Exam# [id number] Ordering Dr: Pelon Chatterjee MD STUDY: X-RAY [...] CC: Shasha Barker MD; Pelon Chatterjee MD Network Cable Installer: Signed 18-Aug-2016 Foot min 3 Views Result: Comments: See Note; NOTES: [facility] Imaging Services [address] [place] [address] Verdana 4d Foot min 3 Views MR#: [id number] Acct: [id number] Name: TIN BLACKWOOD Rep #: [id number] : 1960 F 55 From: Smith Delaney MD PCP: Shasha Barker MD Status: REG CLI Study: Foot min 3 Views Date of Exam: 08/18/16 Exam# [id number] Ordering Dr: Shasha Barker MD STUDY: [facility] FO[facility]ICAL: Female, 55 years old. Fell [...] Service support , CC: Shasha Barker MD Network Cable Installer: Signed 05-Aug-2016 Chest 1 View (Portable) Result: Comments: See Note; NOTES: [facility] Imaging Services [address] [place] [address] Verdana 4d Chest 1 View (Portable) MR#: [id number] Acct: [id number] Name: TIN BLACKWOOD Rep #: [id number] : 1960 F 55 From: Aguilar Joaquin MD PCP: Shasha Barker MD Status: REG ER Study: Chest 1 View (Portable) Date of Exam: 08/05/16 Exam# [id number] Ordering Dr: Regino Hinson MD STUDY: X-RAY [...] Aguilar Joaquin MD at 9:42 EDT Tel [phone], Service support [phone], CC: Shasha Barker MD; Regino Hinson MD Network Cable Installer: Signed 01-Jul-2016 Chest WITH Contrast Result: Comments: See Note; NOTES: [facility] Imaging Services [address] [place] [address] Verdana 4d Chest WITH Contrast MR#: [id number] Acct: [id number] Name: TIN BLACKWOOD Rep #: [id number] : 1960 F 55 From: Keyshawn Unger DO PCP: Shasha Barker MD Status: REG CLI Study: Chest WITH Contrast Date of Exam: 07/01/16 Exam# [id number] Ordering Dr: Shasha Barker MD STUDY: CT [...] IMPRESSION: As compared with the CT from 2014, significant interva l improvement in mosaic groundglass [...] Service support , CC: Shasha Barker MD Network Cable Installer: Signed 17-Jun-2016 Spine Cervical (Routine) Result: Comments: See Note; NOTES: [facility] Imaging Services [address] [place] [address] Verdana 4d Spine Cervical (Routine) MR#: [id number] Acct: [id number] Name: TIN BLACKWOOD Barbara p #: [id number] : 1960 F 55 From: Kadie Dailey MD PCP: Shasha Barker MD Status: REG CLI Study: Spine Cervical (Routine) Date of Exam: 06/17/16 Exam# [id number] Ordering Dr: More Taylor MD STUD Y: [...] MD at 11:29 EST , Service support [phone], CC: More aTylor MD; Shasha Barker MD Network Cable Installer: Signed 17-Jun-2016 Spine Thoracic (Routine) Result: Comments: See Note; NOTES: [facility] Imaging Services [address] [place] [address] Verda 4d Spine Thoracic (Routine) MR#: [id number] Acct: [id number] Name: TIN BLACKWOOD p #: [id number] : 1960 F 55 From: Kadie Dailey MD PCP: Shasha Barker MD Status: REG CLI Study: Spine Thoracic (Routine) Date of Exam: 06/17/16 Exam# [id number] Ordering Dr: More Taylor MD STUD Y: [...] MD at 11:55 EST , Service support [phone], CC: Ira Taylor MD; Shasha Barker MD Network Cable Installer: Signed 29-May-2016 Dexa Bone Density Study (HP) Result: Comments: See Note; NOTES: [facility] Imaging Services [address] [place] [address] Verdana 4d Dexa Bone Density Study (HP) MR#: [id number] Acct: [id number] Name: ELISSA BLACKWOOD Rep #: [id number] : 1960 F 55 From: Aguilar Joaquin MD PCP: Shasha Barker MD Status: REG CLI Study: Dexa Bone Density Study (HP) Date of Exam: 05/29/16 Exam# [id number] Ordering Dr: Shasha Barker MD STUDY: DUAL [...] Aguilar Joaquin MD at 13:27 EST Tel [phone], Service support [phone], CC: Shasha Barker MD Network Cable Installer: Signed 29-May-2016 SCREENING MAMM (CAD), BILAT Result: Comments: See Note; NOTES: [facility] Imaging Services [address] [place] [address] Verdana 4d SCREENING MAMM (CAD), BILAT MR#: [id number] Acct: [id number] Name: TIN BLACKWOOD Rep #: [id number] : 1960 F 55 From: Aguilar Joaquin MD PCP: Shasha Barker MD Status: REG CLI Study: SCREENING MAMM (CAD), BILAT Date of Exam: 05/29/16 Exam# [id number] Ordering Dr: Yoana Barker MD MAMMOGRAPHY - [...] delay biopsy of a clinically suspicious abnormality. [id number] Electronically Signed: Aguilar Joaquin MD at 15:18 EST Tel [phone], Service support [phone], CC: Shasha Barker MD Network Cable Installer: Signed 29-Nov-2015 NCS and/or EMG Patient Result: Comments: See Note; NOTES: [facility] Pulmonary Services/Neurology [address] [place] [address] NCS and/or EMG Patient MR#: [id number] Acct: [id number] Name: TIN BLACKWOOD Rep #: [id number] : 1960 54 From: Lucas Kiser MD [...] radiculopathy. Lucas hand MD T: NTS JOB: [id number] 11/29/15 0959 <Electronically signed by Lucas Kiser MD> Date Lucas Kiser MD CC: More Taylor MD; Shasha Barker MD; Lucas Kiser MD Date Dictated: 11/27/15 1145 Date Transcribed: 11/27/15 1145 Network Cable Installer: Signed 12-Oct-2015 Spine Lumbar (Routine) Result: Comments: See Note; NOTES: [facility] Imaging Services [address] [place] [address] Verdana 4d Spine Lumbar (Routine) MR#: [id number] Acct: [id number] Name: TIN BLACKWOOD Rep #: [id number] : 1960 F 54 From: Nabeel Bernabe MD PCP: Shasha Barker MD Status: REG CLI Study: Spine Lumbar (Routine) Date of Exam: 10/12/15 Exam# [id number] Ordering Dr: More Taylor MD STUDY: MRI [...] MD at 20:50 EDT , Service support [phone], CC: More Taylor MD; Shasha Barker MD Network Cable Installer: Signed 12-Oct-2015 Lumbar Spine 2 or 3 Views Result: Comments: See Note; NOTES: [facility] Imaging Services [address] [place] [address] Verda 4d Lumbar Spine 2 or 3 Views MR#: [id number] Acct: [id number] Name: TIN LLOYD Rep #: [id number] : 1960 F 54 From: Smith Delaney MD PCP: Shasha Barker MD Status: REG CLI Study: Lumbar Spine 2 or 3 Views Date of Exam: 10/12/15 Exam# [id number] Ordering Dr: More Watts MD STUDY: X-RAY [...] FACR at 8:27 EDT , Service support [phone], RAD/Lumbar Spine 2 or 3 Views IMPRESSION: Degenerative disc disease at L4-5 and L5-S1 with facet arthrosis. No significant changes since the prior study. Electronically Signed: Smith Delaney MD, FACR at 8:27 EDT , Service support [phone], CC: More Taylor MD; Shasha Barker MD Network Cable Installer: Signed 12-Oct-2015 Thoracic Spine 3 Views Result: Comments: See Note; NOTES: [facility] Imaging Services [address] [place] [address] [place] [address] 4d Thoracic Spine 3 Views MR#: [id number] Acct: [id number] Name: TIN BLACKWOOD Rep #: [id number] : 1960 F 54 From: Smith Delaney MD PCP: Shasha Barker MD Status: REG CLI Study: Thoracic Spine 3 Views Date of Exam: 10/12/15 Exam# [id number] Ordering Dr: More Taylor MD STUDY: X-RAY [...] FACR at 8:26 EDT , Service support [phone] RAD/Thoracic Spine 3 Views IMPRESSION : Thoracic spondylosis with multilevel degenerative disc disease Electronically Signed: Smith Delaney MD, FACR at 8:26 EDT , Service support [phone], Fax CC: More Taylor MD; Shasha Barker MD Network Cable Installer: Signed 03-Oct-2015 Chest PA and Lateral Result: Comments: See Note; NOTES: [facility] Imaging Services [address] [place] [address] Verdana 4d Chest PA and Lateral MR#: [id number] Acct: [id number] Name: Hero BLACKWOOD Rep #: [id number] : 1960 F 54 From: Aguilar Joaquin MD PCP: Shasha Barker MD Status: REG CLI Study: Chest PA and Lateral Date of Exam: 10/03/15 Exam# [id number] Ordering Dr: Hortensia Mcnamara i, MD STUDY: X-RAY CHEST REASON FOR EXAM: Female, 54 years old. History of rheumatoid arthritis. TECHNIQUE: PA and lateral views of the chest. COMPARISON: Comparison is made with prior yeni baker dated February 27, 2015. FINDINGS: Since prior [...] Aguilar Joaquin MD at 12:56 EDT Tel [phone], Service support [phone], RAD/Chest PA and Lateral IMPRESSION: Minimal degree of res idual increased markings at the lung bases as compared to prior study. Electronically Signed: Aguilar Joaquin MD at 12:56 EDT Tel [phone], Service support [phone], Fax CC: Shasha Barker MD; Hortensia Tinajero MD Network Cable Installer: Signed 05-Sep-2015 Kidney and Bladder Result: Comments: See Note; NOTES: [facility] Imaging Services [address] [place] [address] Verdana 4d Kidney and Bladder MR#: [id number] Acct: [id number] Name: KARINA BLACKWOOD Rep #: [id number] : 1960 F 54 From: Aguilar Joaquin MD PCP: Shasha Barker MD Status: REG CLI Study: Kidney and Bladder Date of Exam: 09/05/15 Exam# [id number] Ordering Dr: Sacha Barker MD STUDY: RENAL [...] Aguilar Joaquin MD at 10:56 EDT Tel [phone], Service support [phone], CC: Shasha Barker MD Network Cable Installer: Signed 22-Jun-2015 Nuclear Stress Test - Chemical Result: Comments: See Note; NOTES: [facility] Imaging Services [address] [place] [address] Verdana 4d Nuclear Stress Test - Chemical MR#: [id number] Acct: [id number] N miguel: TIN BLACKWOOD Rep #: [id number] : 1960 54 From: Dusty Lund MD [...] fraction. Dusty Lund MD T: NTS JOB: [id number] 06/26/15 1259 & #60;Electronically signed by Dusty Lund MD> Date Dusty Lund MD CC: Shasha Barker MD Date Dictated: 06/22/151819 Date Transcribed: 06/22/151819 Network Cable Installer: Signed 13-Jun-2015 Lumbar Spine 2 or 3 Views Result: Comments: See Note; NOTES: [facility] Imaging Services [address] [place] [address] Verdana 4d Lumbar Spine 2 or 3 Views MR#: [id number] Acct: [id number] Name: TIN LLOYD Rep #: [id number] : 1960 F 54 From: Smith Delaney MD PCP: Shasha Barker MD Status: REG CLI Study: Lumbar Spine 2 or 3 Views Date of Exam: 06/13/15 Exam# [id number] Ordering Dr: More Watts MD STUDY: X-RAY [...] FACR at 11:06 EST , Service support [phone], RAD/Lumbar Spine 2 or 3 Views IM PRESSION: Degenerative disc disease at L4-5 and L5-S1. Electronically Signed: Smith Delaney MD, FACR at 11:06 EST , Service support [phone], CC: More Taylor MD; Shasha Barker MD Network Cable Installer: Signed 13-Jun-2015 Thoracic Spine 3 Views Result: Comments: See Note; NOTES: [facility] Imaging Services [address] [place] [address] Verdana 4d Thoracic Spine 3 Views MR#: [id number] Acct: [id number] Name: TIN BLACKWOOD Rep #: [id number] : 1960 F 54 From: Smith Delaney MD PCP: Shasha Barker MD Status: REG CLI Study: Thoracic Spine 3 Views Date of Exam: 06/13/15 Exam# [id number] Ordering Dr: More Taylor MD ADDENDUM by Smith Delaney MD on 06/14/15 at 1105 ADDENDUM TECHNIQUE: 3 view(s) o f the thoracic spine were obtained. Electronically Signed: Smith Delaney MD, FACR at 11:05 EST , Service support [phone], 06/14/15 1105 Date cc: More Taylor MD; [...] FACR at 11:05 EST , Service support [phone], RAD/Thoracic S pine 3 Views IMPRESSION: Thoracic spondylosis Electronically Signed: Smith Delaney MD, FACR at 11:05 EST , Service support [phone], CC: More Taylor MD; Shasha Barker MD Network Cable Installer: Signed 13-Jun-2015 Thoracic Spine 3 Views Result: Comments: See Note; NOTES: [facility] Imaging Services [address] [place] [address] Verdana 4d Thoracic Spine 3 Views MR#: [id number] Acct: [id number] Name: TIN BLACKWOOD Rep #: [id number] : 1960 F 54 From: Smith Delaney MD PCP: Shasha Barker MD Status: REG CLI Study: Thoracic Spine 3 Views Date of Exam: 06/13/15 Exam# [id number] Ordering Dr: More Taylor MD STUDY: X-RAY [...] FACR at 11:05 EST , Service support [phone], RAD/Thoracic Spine 3 Views IMPRESSION: Thoracic spondylosis Electronic ally Signed: Smith Delaney MD, FACR at 11:05 EST , Service support [phone], CC: More Taylor MD; Shasha Barker MD Network Cable Installer: Signed 08-Jun-2015 EKG (22594) Result: [MEASUREMENTS ANALYSIS] Date of Test: 06/08/2015 13:15:12; Heart Rate: 96; AZ Interval: 130; QRS: 88; QT Interval: 340; Corrected QT Interval (QTc): 403; P Wave Clinton: 48; QRS Wave Clinton: 32; T Wave [place]: 36; Blood Pressure: 120/80 [ECG DIAGNOSTIC STATEMENTS] Date of Test: 06/08/2015 13:15:12; Summary: Sinus Rhythm WITHIN NORMAL LIMITS [MEASUREMENTS ANALYSIS] Date of Test: 06/08/2015 13:14:43; Heart Ra te: 97; AZ Interval: 126; QRS: 88; QT Interval: 340; Corrected QT Interval (QTc): 404; P Wave Clinton: 51; QRS Wave [place]: 31; T Wave [place]: 40; Blood Pressure: 120/80 [ECG DIAGNOSTIC STATEMENTS] Date of Supriya t: 06/08/2015 13:14:43; Summary: Sinus Rhythm WITHIN NORMAL LIMITS 27-Feb-2015 Chest PA and Lateral Result: Comments: See Note; NOTES: [facility] Imaging Services [address] [place] [address] Verdana 4d Chest PA and Lateral MR#: [id number] Acct: [id number] Name: Hero BLACKWOOD Rep #: [id number] : 1960 F 54 From: Aguilar Joaquin MD PCP: Shasha Barker MD Status: REG CLI Study: Chest PA and Lateral Date of Exam: 02/27/15 Exam# [id number] Ordering Dr: Ophelia Boogie STUDY: X-RAY CHEST [...] Aguilar Joaquin MD at 13:45 EDT Tel [phone], Service support [phone], RAD/Chest PA and Lateral IMPRES TABBY: Persistent interstitial disease in keeping with known scarring. Improved aeration of both lungs with residual infiltrate in the peripheral aspect of the right lung. Electronically Signed: Darryl Joaquin MD at 13:45 EDT Tel [phone], Service support [phone], CC: Ophelia Boogie; Shasha Barker MD Network Cable Installer: Signed 05-Feb-2015 Chest PA and Lateral Result: Comments: See Note; NOTES: [facility] Imaging Services [address] [place] [address] Radiology Report MR#: [id number] Acct: [id number] Name: TIN BLACKWOOD Rep #: [id number] : 1960 F 54 From: Vega Payan MD PCP: Shasha Barker MD Status: REG CLI Study: Chest PA and Lateral Date of Exam: 02/05/15 Exam# [id number] Ordering Dr: Ophelia Boogie STUDY: X-RAY C [...] Vega Payan MD at 17:03 EDT Tel [phone], Service support [phone], [phone] RAD/Chest PA and Lateral IMPRESSION: 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 Recommend followup till clear. Electronically Signed: Vega Payan MD a t 17:03 EDT Tel [phone], Service support [phone], CC: Ophelia Boogie; Shasha Barker MD Network Cable Installer: Signed 06-Nov-2014 Operative Report Result: Comments: See Note; NOTES: [facility] Medical Records Department [address] [place] [address] Operative Report MR#: [id number] Acct: [id number] Name: TIN BLACKWOOD Rep #: [id number] : 1960 53 From: Allie Bales MD PCP: Shasha Barker MD Status: [facility] DATE OF SERVICE: 11/06/2014 DATE OF SERVICE: [...] time. Allie Bales MD T: NTS JOB: [id number] 11/06/14 1429 <Electronically signed by Allie Bales MD> Raul e Allie Bales MD CC: Allie Bales MD; Shasha Barker MD Date Dictated: 11/06/14 1231 Date Transcribed: 11/06/14 1231 Network Cable Installer: Signed 06-Nov-2014 Discharge Instruction Result: Comments: See Note; NOTES: [facility] Medical Records Department [address] [place] [address] Instructions for Home/Discharge Instructions 11/06/14 1204 MR#: [id number] ct: [id number] Name: TIN BLACKWOOD Rep #: [id number] : 1960 53 From: Allie Bales MD PCP: Shasha Barker MD Status: [facility] Discharge Diet: No Restrictions [...] Operative Report Result: Comments: See Note; NOTES: [facility] Medical Records Department [address] [place] [address] Operative Report 11/06/14 1202 MR#: [id number] Acct: [id number] Name: TIN BLACKWOOD Rep #: [id number] : 1960 53 From: Allie Bales MD PCP: Shasha Barker MD Status: [facility] Y Location: [place] [address] Operative Report (Blank) Date of Procedure: 11/06/14 [...] Transvaginal Non- Result: Comments: See Note; NOTES: [facility] Imaging Services [address] [place] [address] Ultrasound Report MR#: [id number] Acct: [id number] Name: TIN BLACKWOOD Rep #: [id number] : 1960 F 53 From: Aguilar Joaquin MD PCP: Shasha Barker MD Status: REG CLI Study: Transvaginal Non- Date of Exam: 07/24/14 Exam# [id number] Ordering Dr: Ophelia Boogie STUDY: ULTRASOUND OF [...] Aguilar Joaquin MD at 10:36 EDT Tel [phone], Service support [phone], CC: Ophelia Boogie; Shasha Barker MD Network Cable Installer: Signed 24-Jul-2014 Pelvic (Non ) Result: Comments: See Note; NOTES: [facility] Imaging Services [address] [place] [address] Ultrasound Report MR#: [id number] Acct: [id number] Name: TIN BLACKWOOD Rep #: [id number] : 1960 F 53 From: Aguilar Joaquin MD PCP: Shasha Barker MD Status: REG CLI Study: Pelvic (Non ) Date of Exam: 07/24/14 Exam# [id number] Ordering Dr: Ophelia Boogie STUDY: ULTR ASOUND [...] Darryl Joaquin MD at 10:36 EDT Tel [phone], Service support [phone], CC: Ophelia Boogie; Shasha Barker MD Network Cable Installer: Signed 05-Sep-2013 Cerv Spine 4 or 5 Views Result: Comments: See Note; NOTES: [facility] Imaging Services [address] [place] [address] Radiology Report MR#: [id number] Acct: [id number] Name: TIN BLACKWOOD Rep #: [id number] : 1960 F 52 From: Vazquez Kaye MD PCP: Shasha Barker MD Status: REG CLI Study: Cerv Spine 4 or 5 Views Date of Exam: 09/05/13 Exam# [id number] Ordering Dr: More Taylor MD STUDY: X-RAY [...] MD at 14:28 EDT , Service support [phone], RAD/Cerv Spine 4 or 5 Views IMPRESSION: Multilevel degenerative changes, 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 No significant interval change Electronically Signed: Glenn Kaye MD at 14:28 EDT , Service support [phone] , CC: More Taylor MD; Shasha Barker MD Network Cable Installer: Signed 10-Feb-2013 Hand Min 3 Views Result: Comments: See Note; NOTES: [facility] Imaging Services [address] [place] [address] Radiology Report MR#: [id number] Acct: [id number] Name: TIN BLACKWOOD Rep #: [id number] : 1960 F 52 From: Julio Cannon MD PCP: Status: REG CLI Study: Hand Min 3 Views Date of Exam: 02/10/13 Exam# [id number] Ordering Dr: Shasha Barker MD STUDY: X-RAY [...] of the distal interphalangeal joints. Signed: Julio aCnnon M.D. February 10, 2013 at 10:35:57 PM EDT [phone] Electronically Signed BP/BP If you are the refe rring physician and would like to consult with the radiologist who provided this interpretation, please contact Julio Cannon M.D. at [phone]. If this radiologist is unavailable, you will [...] or destruction of these documents. CC: Shasha Braker MD Network Cable Installer: Signed 10-Feb-2013 Hand Min 3 Views Result: Comments: See Note; NOTES: [facility] Imaging Services [address] [facility] [place] [address] Radiology Report MR#: [id number] Acct: [id number] Name: TIN BLACKWOOD Rep #: [id number] : 1960 F 52 From: Julio Cannon MD PCP: Status: REG CLI Study: Hand Min 3 Views Date of Exam: 02/10/13 Exam# [id number] Ordering Dr: Shasha Barker MD STUDY: X-RAY [...] February 10, 2013 at 10:36:47 PM EDT [phone] Electronically Signed BP/BP If you are the referring physician and would like to consult with the radiologist who provided this interpretation, please contact Julio Cannon M.D. at [phone]. If this radiologist is unavaila ble, you will be directed to another radiologist to assist. If you are a patient with a question regarding this report, please contact your referring physician directly. Professional Interpretatio n Provided By: [employer], Phone , These documents contain legally protected [...] of these documents. 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 No Drug Use 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 Tobacco Use: Current every day smoker. 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 Non Smoker/No Tobacco Use Status: Inactive Tobacco use: Former smoker. Status: Inactive Smoking Status Name Dates Details Current every day smoker Vital Signs Date Test Result Details 5-Hac-881948:44 Temperature 97.6 f Comments: Method: Temporal Pulse [...] 0.00 cm Results Date Description Value Details :00 Tissue Biopsy See Note (Normal) Comments: [facility] [address] [place], [address] Comments: Patient: TIN BLACKWOOD : 1960 (57/F) Acct Num: [id number] Phys: Melissa CADETJose L Unit Num: [id number] Loc: [facility] Specimen: [id number] Received: 02/19/18 151 Spec Typ e: Tissue Bx TISSUES 1 [...] time of embedding. / JANES:tammy TC:5 CPT: 21939 HEADER OPERATION: Biopsy cheek/lip PRE-OP DIAGNOSIS: Probable fibroma TISSUE SUBMITTED: Biopsy cheek/lip MICROSCOPIC DESCRIPTION Slides are reviewed. MICROSCOPIC DI AGNOSIS Cheek/lip, biopsy: Squamous mucosa with subepithelial fibrosis, consistent with irritation fibroma. SJ:tammy 02/22/18 Signed Jarrod Holland 02/22/18 <signature on file> 7-Ajy-885157:19 HgA1C , Office (81512) HgA1C , Office 6.1 % (Normal) Range: 4.6 - 7.1 7-Kdt-790533:19 Blood Glucose , Office (51826) Blood Glucose , Office 153 (Normal) 2-Zcz-590432:19 Urinalysis, Office (68234) UA - LEUKOCYTE ESTERASE Negative (Normal) UA - NITRITE Negative (Normal) URINE UROBILINGN SRAVANI TIMED Normal mg/dL (Normal) UA - PROTEIN Negative mg/dL (Normal) UA - PH 7 (Normal) UA - BLOOD Negative (Normal) UA - SPECIFIC GRAVITY 1.010 (Normal) UA - KETONES Negative mg/dL (Normal) UA - BILIRUBIN Negative (Normal) UA - GLUCOSE Negative (Normal) 3-Att-765340:42 CBC-Complete Blood Cnt No Diff Comments: [facility] [address] [place], [address] MPV 9.7 fL (Normal) Range: [...] 4.2-5.4 WBC 8.0 K/mm3 (Normal) Range: 4.4-11.0 7-Has-461556:42 Differential Comment Comments: [facility] [address] [place], [place], [id number] SMEAR COMMENT SCANNED (Normal) Comments: 1+ ANISOCYTOSIS 9-Zea-018078:42 Liver Profile Comments: Comments: [facility] [address] [place], [place], [address] D BILI 0.14 mg/dL (Normal) Range: 0.00-0.30 T BILI 0.60 mg/dL (Normal) Range: 0.20-1.00 ALT 49 U/L (Normal) Range: 13-56 ALK P 46 U/L (Normal) Range: 45-117 AST 25 U/L (Normal) Range: 15-37 GLOB 3.4 g/dL (Normal) Range: 2.2-4.2 ALB 3.6 g/dL (Normal) Range: 3.2-5.0 T PROT 7.0 g/dL (Normal) Range: 6.4-8.2 97-Gvb-072024:21 CBC-Complete Blood Cnt No Diff Comments: [facility] [address] [place], [place], [address] MPV 10.2 fL (Normal) Range: 6.2-12.0 PLT [...] 4.2-5.4 WBC 8.0 K/mm3 (Normal) Range: 4.4-11.0 37-Evx-556384:21 Liver Profile Comments: [facility] [address] [place], [place], [address] D BILI 0.14 mg/dL (Normal) Range: 0.00-0.30 T BILI 0.80 mg/dL (Normal) Range: 0.20-1.00 ALT 50 U/L (Normal) Range: 13-56 ALK P 42 U/L (Abnormal) Range: 45-117 AST 30 U/L (Normal) Range: 15-37 GLOB 3.6 g/dL (Normal) Range: 2.2-4.2 ALB 4.0 g/dL (Normal) Range: 3.2-5.0 T PROT 7.6 g/dL (Normal) Range: 6.4-8.2 0-Yus-653896:48 HEPATIC FUNCTION PANEL Comments: PATIENT NOT FASTINGPERFORMED BY: [facility] [id number] (31283) ALT (SGPT) 45 [iU]/L (Abnormal) Range: 0-32 AST (SGOT) 33 [iU]/L (Normal) Range: 0-40 Alkaline Phosphatase 39 [iU]/L (Normal) Range: 39-117 Bilirubin, Direct 0.08 mg/dL (Normal) Range: 0.00-0.40 Bilirubin, Total 0.3 mg/dL (Normal) Range: 0.0-1.2 Protein, Total 6.8 g/dL (Normal) Range: 6.0-8.5 :48 T3, FREE (TRIDOTHYRONINE) (21017) Comments: PATIENT NOT FASTINGPERFORMED BY: [facility] [id number] Triiodothyronine (T3), Free 2.6 pg/mL (Normal) Range: 2.0-4.4 :48 T4, FREE (THYROXINE) (63232) Comments: PATIENT NOT FASTINGPERFORMED BY: [facility] [id number] T4,Free(Direct) 0.90 ng/dL (Normal) Range: 0.82-1.77 :48 TSH (35536) Comments: PATIENT NOT FASTINGPERFORMED BY: [facility] [id number] TSH 0.333 {uIU/mL} (Abnormal) Range: 0.450-4.500 :48 Renal function Panel (89943) Comments: PATIENT NOT FASTINGPERFORMED BY: [facility] Kjlpto4949 [facility] [id number] Albumin 4.6 g/dL (Normal) Range: 3.5-5.5 Phosphorus [...] 6-24 Glucose 118 mg/dL (Abnormal) Range: 65-99 87-Khj-778123:54 CBC-Complete Blood Cnt No Diff Comments: [facility] [address] [facility] [address] [place], [place], [address] MPV 10.3 fL (Normal) Range: 6.2-12.0 PLT [...] 4.2-5.4 WBC 7.3 K/mm3 (Normal) Range: 4.4-11.0 04-Bme-243833:54 Liver Profile Comments: [facility] [address] [facility] [address] [place], [place], [address] D BILI 0.09 mg/dL (Normal) Range: 0.00-0.30 T BILI 0.40 mg/dL (Normal) Range: 0.20-1.00 ALT 49 U/L (Normal) Range: 13-56 ALK P 58 U/L (Normal) Range: 45-117 AST 22 U/L (Normal) Range: 15-37 GLOB 3.4 g/dL (Normal) Range: 2.2-4.2 ALB 3.9 g/dL (Normal) Range: 3.2-5.0 T PROT 7.3 g/dL (Normal) Range: 6.4-8.2 71-Llh-802159:13 Liver Profile Comments: [facility] [address] [place], [place], [address] D BILI 0.07 mg/dL (Normal) Range: 0.00-0.30 T BILI 0.40 mg/dL (Normal) Range: 0.20-1.00 ALT 49 U/L (Normal) Range: 13-56 Comments: Please note revised ALT reference range drounpdfv75/28/2018. ALK P 53 U/L (Normal) Range: 45-117 AST 22 U/L (Normal) Range: 15-37 GLOB 3.3 g/dL (Normal) Range: 2.2-4.2 ALB 4.0 g/dL (Normal) Range: 3.2-5.0 T PROT 7.3 g/dL (Normal) Range: 6.4-8.2 5-Rod-339143:59 CBC-Complete Blood Cnt No Diff Comments: [facility] [address] [place], [place], [address] MPV 10.4 fL (Normal) Range: 6.2-12.0 PLT [...] 4.2-5.4 WBC 9.1 K/mm3 (Normal) Range: 4.4-11.0 6-Dcc-236418:59 Erythrocyte Sed Rate Comments: [facility] [address] [place], [place], [address] SED RATE 15 mm/h (Normal) Range: 0-30 32-Ovi-913959:22 CBC-Complete Blood Cnt No Diff Comments: [facility] [address] [place], [id number] MPV 10.4 fL (Normal) Range: 6.2-12.0 PLT [...] 4.2-5.4 WBC 7.6 K/mm3 (Normal) Range: 4.4-11.0 17-Fdl-594550:22 Liver Profile Comments: Comments: [facility] [address] [place], [place], [address] D BILI 0.12 mg/dL (Normal) Range: 0.00-0.30 T BILI 0.60 mg/dL (Normal) Range: 0.20-1.00 ALT 38 U/L (Normal) Range: 13-56 Comments: Please note revised ALT reference range sixwcfddq14/28/2018. ALK P 53 U/L (Normal) Range: 45-117 AST 31 U/L (Normal) Range: 15-37 GLOB 3.2 g/dL (Normal) Range: 2.2-4.2 ALB 3.7 g/dL (Normal) Range: 3.2-5.0 T PROT 6.9 g/dL (Normal) Range: 6.4-8.2 55-Veb-994119:33 CBC-Complete Blood Cnt No Diff Comments: [facility] [address] [place], [place], [address] MPV 10.7 fL (Normal) Range: 6.2-12.0 PLT [...] 4.2-5.4 WBC 11.5 K/mm3 (Abnormal) Range: 4.4-11.0 43-Ble-817651:33 Liver Profile Comments: [facility] [address] [place], [place], [address] D BILI 0.09 mg/dL (Normal) Range: 0.00-0.30 T BILI 0.60 mg/dL (Normal) Range: 0.20-1.00 ALT 33 U/L (Normal) Range: 13-56 Comments: Please note revised ALT reference range qmoigcery90/28/2018. ALK P 59 U/L (Normal) Range: 45-117 AST 15 U/L (Normal) Range: 15-37 GLOB 3.7 g/dL (Normal) Range: 2.2-4.2 ALB 3.8 g/dL (Normal) Range: 3.2-5.0 T PROT 7.5 g/dL (Normal) Range: 6.4-8.2 69-Bna-149441:29 CBC-Complete Blood Cnt No Diff Comments: [facility] [address] [place], [place], [address] MPV 11.1 fL (Normal) Range: 6.2-12.0 PLT [...] 4.2-5.4 WBC 9.5 K/mm3 (Normal) Range: 4.4-11.0 68-Ezl-136348:29 Liver Profile Comments: [facility] [address], [place], [address] D BILI 0.10 mg/dL (Normal) Range: 0.00-0.30 T BILI 0.40 mg/dL (Normal) Range: 0.20-1.00 ALT 29 U/L (Normal) Range: 12-78 ALK P 51 U/L (Normal) Range: 45-117 AST 12 U/L (Abnormal) Range: 15-37 GLOB 3.6 g/dL (Normal) Range: 2.2-4.2 ALB 3.9 g/dL (Normal) Range: 3.4-5.0 Comments: Please note revised Albumin AND Globulin reference rangeeffective 2017. T PROT 7.5 g/dL (Normal) Range: 6.4-8.2 3-Mse-511582:34 Gram Stain w/Sputum Cult Comments: PATIENT NOT FASTINGPERFORMED BY: [facility] Oadiyk6838 [facility] [id number] Information: SRC:SP Rflx Gram Stain Evaluation GSACC (Normal) Comments: This specimen is of good quality and is acceptable for routinebacterial culture. Result 1 GNRF (Normal) Comments: Few gram negative rods.Few gram positive cocciRare gram negative coccobacilli Epithelial Cells Few (Normal) White Blood Cells None seen (Normal) 8-Ohr-048577:34 Sputum Culture Comments: PATIENT NOT FASTINGPERFORMED BY: [facility] Zwqvgx7246 [facility] [id number] Result 1 RRF (Normal) Comments: Routine respiratory roxanne Lower Respiratory Culture Final report (Normal) 9-Rft-940788:12 TSH (45341) Comments: PATIENT NOT FASTINGPERFORMED BY: [facility] CenterAvdkfa1334 [facility] [id number] TSH 0.434 {uIU/mL} (Abnormal) Range: 0.450-4.500 0-Lba-567711:12 T3, FREE (TRIDOTHYRONINE) (16475) Comments: PATIENT NOT FASTINGPERFORMED BY: [facility] Otwuxp7353 [facility] [id number] Triiodothyronine,Free,Serum 3.0 pg/mL (Normal) Range: 2.0-4.4 4-Dwr-537801:12 T4, FREE (THYROXINE) (12580) Comments: PATIENT NOT FASTINGPERFORMED BY: [facility] CenterPxjkni3678 [facility] [id number]; review 05/15 T4,Free(Direct) 1.22 ng/dL (Normal) Range: 0.82-1.77 95-Qaa-003863:14 CBC-Complete Blood Cnt No Diff Comments: [facility] [address] [place], [address] MPV 10.8 fL (Normal) Range: 6.2-12.0 PLT [...] 4.2-5.4 WBC 7.7 K/mm3 (Normal) Range: 4.4-11.0 07-Mar-565249:14 Liver Profile Comments: [facility] [address] [place], [place], [address] D BILI 0.11 mg/dL (Normal) Range: 0.00-0.30 T BILI 0.60 mg/dL (Normal) Range: 0.20-1.00 ALT 31 U/L (Normal) Range: 12-78 ALK P 51 U/L (Normal) Range: 45-117 AST 22 U/L (Normal) Range: 15-37 GLOB 3.3 g/dL (Normal) Range: 2.2-4.2 ALB 3.7 g/dL (Normal) Range: 3.4-5.0 Comments: Please note revised Albumin AND Globulin reference rangeeffective 2017. T PROT 7.0 g/dL (Normal) Range: 6.4-8.2 0-Uya-150680:36 CBC-Complete Blood Cnt No Diff Comments: BONEZZI ORDERED TSH,FT4,FT3,AND TPOSTANDING ORDER FROM [facility] CBC AND LIVER.[facility] [address] [place], [address] MPV 10.7 fL (Normal) Range: 6.2-12.0 [...] 4.2-5.4 WBC 6.9 K/mm3 (Normal) Range: 4.4-11.0 8-Tdm-316226:36 Free T3 Comments: [facility] [address] [place], [address] FREE T3 2.6 pg/mL (Normal) Range: 2.18-3.98 7-Trl-730404:36 Liver Profile Comments: [facility] [address] [place], [address] D BILI 0.07 mg/dL (Normal) Range: 0.00-0.30 T BILI 0.40 mg/dL (Normal) Range: 0.20-1.00 ALT 32 U/L (Normal) Range: 12-78 ALK P 48 U/L (Normal) Range: 45-117 AST 15 U/L (Normal) Range: 15-37 GLOB 3.2 g/dL (Normal) Range: 2.2-4.2 ALB 3.7 g/dL (Normal) Range: 3.4-5.0 Comments: Please note revised Albumin AND Globulin reference rangeeffective 2017. T PROT 6.9 g/dL (Normal) Range: 6.4-8.2 3-Pps-396259:36 T4 Free Direct Comments: [facility] [address] [place], [address] T4 FREE DIRECT 0.84 ng/dL (Normal) Range: 0.76-1.46 8-Ysf-287080:36 Thyroid Peroxidase AB Comments: [facility] (refer to report for specific site)refer to report for address and phone number TPO AB 2220 11 {IU/mL} (Normal) Range: 0-34 Comments: Performed at: [address] [id number] Director: Jose L Patel PhD, Phone: [phone] 3-Xcp-153000:36 Thyroid Stim Hormone (TSH) Comments: [facility] [address] [place], [address] TSH 0.36 {uIU/mL} (Normal) Range: 0.358-3.74 29-Izr-027263:03 CBC-Complete Blood Cnt No Diff Comments: [facility] [address] [place], [address] MPV 10.4 fL (Normal) Range: 6.2-12.0 PLT [...] 4.2-5.4 WBC 9.2 K/mm3 (Normal) Range: 4.4-11.0 39-Khh-824440:03 Liver Profile Comments: [facility] [address] [place], [place], [address] D BILI 0.11 mg/dL (Normal) Range: 0.00-0.30 T BILI 0.40 mg/dL (Normal) Range: 0.20-1.00 ALT 30 U/L (Normal) Range: 12-78 ALK P 52 U/L (Normal) Range: 45-117 AST 14 U/L (Abnormal) Range: 15-37 GLOB 3.4 g/dL (Normal) Range: 2.2-4.2 ALB 4.1 g/dL (Normal) Range: 3.4-5.0 Comments: Please note revised Albumin AND Globulin reference rangeeffective 2017. T PROT 7.5 g/dL (Normal) Range: 6.4-8.2 31-Vzf-646683:28 CBC-Complete Blood Cnt No Diff Comments: [facility] [address] [place], [place], [address] MPV 11.1 fL (Normal) Range: 6.2-12.0 PLT [...] 4.2-5.4 WBC 8.7 K/mm3 (Normal) Range: 4.4-11.0 53-Soc-631658:28 Liver Profile Comments: [facility] [address] [facility] [address] [place], [place], [address] D BILI 0.13 mg/dL (Normal) Range: 0.00-0.30 T BILI 0.60 mg/dL (Normal) Range: 0.20-1.00 ALT 32 U/L (Normal) Range: 12-78 ALK P 44 U/L (Abnormal) Range: 45-117 AST 13 U/L (Abnormal) Range: 15-37 GLOB 3.2 g/dL (Normal) Range: 2.2-4.2 ALB 3.7 g/dL (Normal) Range: 3.4-5.0 Comments: Please note revised Albumin AND Globulin reference rangeeffective 2017. T PROT 6.9 g/dL (Normal) Range: 6.4-8.2 98-Ckr-551802:57 CBC-Complete Blood Cnt No Diff Comments: [facility] [address] [place], [place], [address] MPV 10.9 fL (Normal) Range: 6.2-12.0 PLT [...] 4.2-5.4 WBC 7.8 K/mm3 (Normal) Range: 4.4-11.0 [id number] CBC-Complete Blood Cnt No Diff Comments: [facility] [id number] [facility] [address] [place], [place], [id number] MPV 11.2 fL (Normal) Range: 6.2-12.0 PLT [...] 4.2-5.4 WBC 9.1 K/mm3 (Normal) Range: 4.4-11.0 [id number] Liver Profile Comments: [facility] [id number] [facility] [address] [place], [place], [id number] D BILI 0.09 mg/dL (Normal) Range: 0.00-0.30 T BILI 0.20 mg/dL (Normal) Range: 0.20-1.00 ALT 34 U/L (Normal) Range: 12-78 ALK P 55 U/L (Normal) Range: 45-117 AST 15 U/L (Normal) Range: 15-37 GLOB 3.3 g/dL (Normal) Range: 2.3-3.5 ALB 3.5 g/dL (Normal) Range: 3.4-5.0 T PROT 6.8 g/dL (Normal) Range: 6.4-8.2 [id number] URINE ALISSON CULTURE-IDENTIFICATN Comments: PERFORMED BY: [facility] [id number] [place] [id number] Information: SRC:UR ([id number]) Antimicrobial MIHEAD (Normal) Comments: S = Susceptible; [...] mL (Abnormal) Urine Final report Culture,Comprehensive (Abnormal) [id number] Urinalysis, Office (11076) UA - LEUKOCYTE ESTERASE Small (Normal) UA - NITRITE Negative (Normal) URINE UROBILINGN SRAAVNI TIMED Normal mg/dL (Normal) UA - PROTEIN Negative mg/dL (Normal) UA - PH 6 (Abnormal) UA - BLOOD Negative (Normal) UA - SPECIFIC GRAVITY 1.005 (Normal) UA - KETONES Negative mg/dL (Normal) UA - BILIRUBIN Negative (Normal) UA - GLUCOSE Negative (Normal) 66-Bfo-767759:58 Basic Metabolic Profile (BMP) Comments: 'TROP' Serial specimen #1, #2, #3, or #4: 1[facility] Sdbikrjvrh0692 [facility] [place], [place], [address] GAP 10 (Normal) Range: 5-15 CO2 25.0 [...] Range: 70-110 :58 CBC W/Diff, Automated Comments: [facility] [address]iywc[address] [place], [place], [address] Absolute Lymph 1.13 {X10_3/ul} (Normal) Range: 0.83-4.51 [...] Serial specimen #1, #2, #3, or #4: [facility] Yqytfqgjpt42[address] [place], [address] TROPONIN-I 0.11 ng/mL (Abnormal) Comments: TROPONIN-I EXPECTED VALUES <0.05 NEGATIVE 0.06 - 0.59 AT RISK OF [place] > OR = 0.60 SUGGEST [place] :56 CBC W/Diff, Automated Comments: [facility] [address] [place], [address] Absolute Lymph 1.30 {X10_3/ul} (Normal) Range: 0.83-4.51 [...] 4.2-5.4 WBC 9.2 K/mm3 (Normal) Range: 4.4-11.0 15-Ffk-068140:56 Comprehensive Metabolic Profil Comments: [facility] [address] [place], [place], [address] GAP 8 (Normal) Range: 5-15 CO2 29.0 [...] <126 mg/dLsuggests IMPAIRED HOMEOSTASIS per A.D.A. criteria. 14-Rpd-848150:39 CBC W/Diff, Automated Comments: [facility] Tuoppttgap3398 [place], [address] Absolute Lymph 1.40 {X10_3/ul} (Normal) Range: 0.83-4.51 [...] 4.2-5.4 WBC 8.8 K/mm3 (Normal) Range: 4.4-11.0 83-Acq-424057:39 Comprehensive Metabolic Profil Comments: [facility] Ypkithlphi30[address] [place], [address] GAP 7 (Normal) Range: 5-15 CO2 30.0 [...] 126 mg/dLsuggests DIABETES MELLITUS per A.D.A. criteria. 46-Utq-895418:43 Homocysteine, Plasma (69171) Comments: PATIENT NOT FASTINGPERFORMED BY: [employer]70 [facility] [id number] Homocyst(e)ine, Plasma 9.3 umol/L (Normal) Range: 0.0-15.0 43-Vvf-102575:12 CRP, High Sensitivity Cardiac Comments: [facility] Plttaqaava[address] [facility] [address] [place], [place], [address] CRP HIGH SENS 1.10 mg/L (Normal) Comments: Low Relative Risk of CVD <1.0 mg/L Average Relative Risk of CVD 1.0 - 3.0 mg/L High Relative Risk of CVD >3.0 mg/L 90-Shp-203280:12 Erythrocyte Sed Rate Comments: [facility] [address] [place], [address] SED RATE 24 mm/h (Normal) Range: 0-30 3-Oov-694053:28 CBC WITH MANUAL DIFF (53329) Comments: PATIENT NOT FASTINGPERFORMED BY: [employer]6370 [facility] [id number] Immature Grans (Abs) 0.0 {x10E3/uL} (Normal) Range: [...] 3.77-5.28 WBC 7.3 {x10E3/uL} (Normal) Range: 3.4-10.8 5-Aed-973421:28 Metabolic Panel, Basic Comments: PATIENT NOT FASTINGPERFORMED BY: [facility] CenterHdgbfw0461 [facility] [id number]; will review at 09/04 appt (30945) Calcium, Serum 9.4 mg/dL (Normal) Range: 8.7-10.2 [...] Glucose, Serum 107 mg/dL (Abnormal) Range: 65-99 85-Kkh-536451:31 CBC With Differential/Platelet Comments: PATIENT NOT FASTINGPERFORMED BY: [facility] CenterQdougi2554 [facility] [id number] Immature Grans (Abs) 0.0 {x10E3/uL} Range: 0.0-0.1 [...] ANGELA (Normal) Comments: PATIENT NOT FASTINGPERFORMED BY: [facility]6370 [facility] [id number] 13:31 Comments: WRITTEN AUTHORIZATION RECEIVED.AUTHORIZATION RECEIVED FROM JACKIE BRUNO LPN [id number] BY RADHA EMMANUEL 81-Diy-027637:31 CBC (Auto) (60052) Comments: PATIENT NOT FASTINGPERFORMED BY: [facility]6370 [facility] [id number] Platelets 416 {x10E3/uL} (Abnormal) Range: 150-379 RDW 17.2 % (Abnormal) Range: 12.3-15.4 MCHC 32.4 g/dL (Normal) Range: 31.5-35.7 MCH 27.0 pg (Normal) Range: 26.6-33.0 MCV 83 fL (Normal) Range: 79-97 Hematocrit 36.7 % (Normal) Range: 34.0-46.6 Hemoglobin 11.9 g/dL (Normal) Range: 11.1-15.9 RBC 4.40 {x10E6/uL} (Normal) Range: 3.77-5.28 WBC 12.7 {x10E3/uL} (Abnormal) Range: 3.4-10.8 95-Wqh-979498:31 Magnesium (44440) Comments: PATIENT NOT FASTINGPERFORMED BY: [facility] CenterXnnxai2967 [facility] [id number] Magnesium, Serum 2.0 mg/dL (Normal) Range: 1.6-2.3 85-Amr-703647:31 Renal function Panel (39833) Comments: PATIENT NOT FASTINGPERFORMED BY: [facility] CenterAyvdtz8174 [facility] [id number] Albumin, Serum 4.1 g/dL (Normal) Range: 3.5-5.5 [...] Glucose, Serum 99 mg/dL (Normal) Range: 65-99 2-Ykb-082717:16 Lactic Acid Comments: [facility] Pmajksdzoh2625 [facility] [address] [place], [place], [address] LACTIC ACID 1.2 mmol/L (Normal) Range: 0.4-2.0 05-Aug-20169:52 BNP,B-Type NATRIURETIC PEPTIDE Comments: [facility] Nxjjglwtpc4460 [facility] [place], [place], [address] B-TYPE BRENT PEP 89.7 pg/mL (Normal) Range: 0-100 05-Aug-20169:52 CBC W/Diff, Automated Comments: [facility] Enwbkjsxwp5409 [facility] [address] [place], [place], [address] Absolute Lymph 1.12 {X10_3/ul} (Normal) Range: 0.83-4.51 [...] Serial specimen #1, #2, #3, or #4: 1[facility] Ttcgwrjocu3296 [facility] [place], [place], [address] GAP 5 (Normal) Range: 5-15 CO2 24.0 [...] Serial specimen #1, #2, #3, or #4: [address] [address] [place], [address] TROPONIN-I 0.73 ng/mL (Abnormal) Comments: TROPONIN-I EXPECTED VALUES <0.05 NEGATIVE 0.06 - 0.59 AT RISK OF [place] > OR = 0.60 SUGGEST [place] :43 Base Excess ISTAT Comments: [place] [address] [place] [address] BE ISTAT 1 mmol/L (Normal) :43 Bicarbonate ISTAT Comments: [place] [address] [place], [place] [address] HCO3 ISTAT 26 mmol/L (Normal) Range: 22-26 Comments: Site = R RadialDevice = Vent MaskFIO2 = 40Results To = ED MDTime Given = 949 :43 Blood Gas Specimen Type Comments: [place] [address] [place] [address] BLD GAS TYPE ART (Normal) :43 pCO2 - ISTAT 40.0 {mmHg} (Normal) Comments: [place] [address] [place] [address] Range: 35-45 :43 pH - I-STAT 7.42 (Normal) Comments: [place] [address] [place] [address] Range: 7.35-7.45 :43 PO2 I-STAT 68 {mmHG} (Abnormal) Comments: [place] [address] [place] [address] Range: 75-100 :43 SO2 ISTAT 94 % (Abnormal) Comments: [place] [address] [place] [address] Range: 95-99 :43 Total Carbon Dioxide ISTAT Comments: [place] [address] [place] [address] TOTAL CO2 ISTAT 27 mmol/L (Normal) 95-Gtq-531319:06 CBC W/Diff, Automated Comments: [address] [place], [address] Absolute Lymph 1.60 {X10_3/ul} (Normal) Range: [...] 4.2-5.4 WBC 6.3 K/mm3 (Normal) Range: 4.4-11.0 02-Sra-231033:06 Comprehensive Metabolic Profil Comments: [facility] [address] [place], [address] GAP 5 (Normal) Range: 5-15 CO2 30.0 [...] 7-18 GLU 102 mg/dL (Normal) Range: 70-110 00-Awc-763868:30 PAP I-G w/rfx hrHPV Comments: CYTOLOGY INFORMATION:- CLINICAL INFORMATION:- DATE LMP/MENOPAUSE: MENOPAUSE- COLLECTION VIAL: Thin Prep Vial- INDEPENDENT LIVING ADVISOR SOURCE: CERVICAL/ENDOCERVICAL- COLLECTION TECHNIQUE: BRUSH/SPATULACYTOLOGY INFORMATION :- CLINICAL INFORMATION:- DATE LMP/MENOPAUSE: MENOPAUSE- COLLECTION VIAL: Thin Prep Vial- INDEPENDENT LIVING ADVISOR SOURCE: CERVICAL/ENDOCERVICAL- COLLECTION TECHNIQUE: BRUSH/SPATULASpecimen Comment: [id number] imen Comment: No. of containers..01 CYTYC Thin Prep VialLabCorp (refer to report for specific site)refer to report for address and phone number HPV RFLX Comment (Normal) Comments: The HPV DNA reflex criteria were not met with this specimenresult therefore, no HPV testing was performed.Performed at: [address] [id number] Director: Selene Munoz MD, Phone: [phone] PAPSMR Comment (Normal) Comments: The Pap smear [...] system. PERFORM Comment (Normal) Comments: Dioni Pereira, It Security Analyst (ASCP) ADEQ Comment (Normal) Comments: Satisfactory for evaluation. Endocervical and/or squamous metaplasticcells (endocervical component) are present. DIAGN Comment (Normal) Comments: NEGATIVE FOR INTRAEPITHELIAL LESION AND MALIGNANCY. 64-Tew-387082:09 CBC W/Diff, Automated Comments: [facility] [address] [place], [place], [address] Absolute Lymph 1.61 {X10_3/ul} (Normal) Range: 0.83-4.51 [...] 4.2-5.4 WBC 7.3 K/mm3 (Normal) Range: 4.4-11.0 13-Ibi-193325:09 Comprehensive Metabolic Profil Comments: [facility] [address]clpauodfq27[address] [place], [place], [address] GAP 8 (Normal) Range: 5-15 CO2 30.0 [...] 7-18 GLU 90 mg/dL (Normal) Range: 70-110 74-Mjh-308477:09 Lipid Profile Comments: [facility] [address]fhp[address] [place], [place], [address] VLDL 11 mg/dL (Normal) Range: 5-40 LDL [...] 200-240 mg/dL Borderline >240 mg/dL High Risk 89-Xyo-903892:56 Ferritin (09947) Comments: PATIENT NOT FASTINGPERFORMED BY: [facility] Cpmnfg6421 [facility] [id number] Information: NURSE DRAW Ferritin, Serum 35 ng/mL (Normal) Range: 15-150 54-Hfk-957880:06 Lipid Profile Comments: [facility] [address] [place], [place], [address] VLDL 14 mg/dL (Normal) Range: 5-40 LDL [...] 200-240 mg/dL Borderline >240 mg/dL High Risk 68-Hlz-255789:11 CBC W/Diff, Automated Comments: [facility] Jfhvedvdeu12[address] [facility] [place], [place], [address] Absolute Lymph 1.06 {X10_3/ul} (Normal) Range: 0.83-4.51 [...] 4.2-5.4 WBC 9.4 K/mm3 (Normal) Range: 4.4-11.0 09-Gmz-329039:11 Comprehensive Metabolic Profil Comments: [facility] [address]irwi[address] [place], [address] GAP 9 (Normal) Range: 5-15 CO2 29.0 [...] 7-18 GLU 100 mg/dL (Normal) Range: 70-110 03-Btt-215807:59 CBC W/Diff, Automated Comments: [facility] [address]xkkirim[address] [place], [place], [address] Absolute Lymph 1.33 {X10_3/ul} (Normal) Range: 0.83-4.51 [...] 4.2-5.4 WBC 3.7 K/mm3 (Abnormal) Range: 4.4-11.0 :59 Comprehensive Metabolic Profil Comments: [facility] Zteftbigyt44[address] [place], [address] GAP 7 (Normal) Range: 5-15 [...] 7-18 GLU 84 mg/dL (Normal) Range: 70-110 3-Ywb-537435:15 CBC W/Diff, Automated Comments: [facility] [address]okaegjp[address] [place], [place], [address] Absolute Lymph 0.51 {X10_3/ul} (Abnormal) Range: 0.83-4.51 [...] 4.2-5.4 WBC 9.8 K/mm3 (Normal) Range: 4.4-11.0 6-Jcd-599677:15 Comprehensive Metabolic Profil Comments: [facility] [address]odyraybw[address] [place], [place], [address] GAP 3 (Abnormal) Range: 5-15 CO2 28.0 [...] 7-18 GLU 107 mg/dL (Normal) Range: 70-110 5-Zti-553251:15 Quantiferon TB-Gold Comments: [facility] (refer to report [...] go to cdc.gov/tb for further details.Performed at: [address] [id number] Director: Jose L Patel PhD, Phone: [phone] QFT AG - NIL 0 {IU/mL} (Normal) [...] of cells for the productionof interferon gamma. :43 CBC W/Diff, Automated Comments: [facility] [address]ov[address] [place], [place], [phone] Absolute Lymph 0.86 {X10_3/ul} (Normal) Range: 0.83-4.51 [...] Range: 4.4-11.0 :43 Comprehensive Metabolic Profil Comments: [facility] [address]zqtcxyt[address] [place], [place], [address] GAP 9 (Normal) Range: 5-15 CO2 29.0 [...] <126 mg/dLsuggests IMPAIRED HOMEOSTASIS per A.D.A. criteria. 10-Wdu-126255:00 CORTISOL SERUM Comments: [facility] [address]mji[address] [place], [address] CORTISOL 11.80 ug/dL (Normal) Range: 3.09-22.40 Comments: Adult (AM) 4.30 - 22.40 ug/dL Adult (PM) 3.09 - 16.66 ug/dL 24-Yur-998558:00 DHEA Sulfate Comments: Has Patient had Radioactive Injection for X-ray?: N[facility] (refer to report for specific site)refer to report for address and phone number DHEA SULF 4020 35.6 ug/dL (Abnormal) Range: 41.2-243.7 Comments: Performed at: - [facility] CenterEpcdqc4835 [place], [place] [id number] Director: Jose L Patel PhD, Phone: [phone] 27-Rae-708697:00 Estradiol Comments: [facility] [address] [place], [place], [address] ESTRADIOL 11.4 pg/mL (Normal) Comments: NORMAL REFERENCE [...] SHOULD BE USED TO DETERMINE ESTRADIOL CONCENTRATION. 61-Rfn-594264:00 Free T3 Comments: [facility] [address]lbun[address] [place], [place], [address] FREE T3 3.1 pg/mL (Normal) Range: 2.18-3.98 38-Sex-516047:00 Hemoglobin A1c Comments: [facility] [address]cgdpj94[address] [place], [place], [address] HGB A1C 6.1 % (Normal) Range: 4.2-6.3 13-Guj-532805:00 Progesterone Level Comments: [facility] Twzripwymc5[address] [place], [place], [address] Progesterone 2.17 ng/mL (Normal) Comments: Progesterone Reference Table: UNITS Female: Follicular 0.15 - 1.40 ng/mL Luteal 3.34 - 25.56 ng/mL Mid-luteal 4.44 - 28.03 ng/mL Postmenopausal 0.0 - 0.73 ng/mL : 1st Trimester 11.22 - 90.00 ng /mL 2nd Trimester 25.55 - 89.40 ng/mL 3rd Trimester 48.40 -422.50 ng/mL 61-Kiq-936792:00 T4 Free Direct Comments: [facility] [address]hud[address] [place], [address] T4 FREE DIRECT 0.80 ng/dL (Normal) Range: 0.76-1.46 67-Eww-871680:00 Testosterone, Serum Total Comments: [facility] Fnwtxrbllx[address] [place], [address] Testosterone 20 ng/dL (Normal) Range: 14-76 10-Lth-269230:00 Thyroid Stim Hormone (TSH) Comments: [facility] [address]cgwag[address] [place], [address] TSH 0.46 {uIU/mL} (Normal) Range: 0.358-3.74 76-Xbg-820575:30 PAP I-G w/rfx hrHPV Comments: CYTOLOGY INFORMATION:- CLINICAL INFORMATION:- DATE LMP/MENOPAUSE: MENOPAUSE- COLLECTION VIAL: Thin Prep Vial- INDEPENDENT LIVING ADVISOR SOURCE: CERVICAL/ENDOCERVICAL- COLLECTION TECHNIQUE: BRUSH/SPATULASpecimen Comment: [id number] Comment: No. of containers..01 CYTYC Thin Prep VialLabCorp (refer to report for specific site)refer to report for address and phone number HPV RFLX Comment (Normal) Comments: The HPV DNA reflex criteria were not met with this specimenresult therefore, no HPV testing was performed.Performed at: [address] [id number] Director: Selene Munoz MD, Phone: [phone] PAPSMR Comment (Normal) Comments: The Pap smear [...] system. PERFORM Comment (Normal) Comments: Luisa Washington, It Security Analyst (ASCP) ADEQ Comment (Normal) Comments: Satisfactory for evaluation. No endocervical component is identified. DIAGN Comment (Normal) Comments: NEGATIVE FOR INTRAEPITHELIAL LESION AND MALIGNANCY. :26 D-Dimer Quantitative (DVT/PE) Comments: [facility] [address]rnwyd[address] [place], [place], [address] D-DIMER QUANT 0.30 {FEU/ug/m} (Normal) Range: 0.27-0.49 Comments: NORMAL D-Dimer level (<0.50) indicates no DVT or PE. :25 CK-MB Quantitative and Index Comments: 'TROP' Serial specimen #1, #2, #3, or #4: INT'CKMB' Serial Specimen #1, #2 or #3? [address] [place] [address] Psv[address]awkdn4[address] [place], [place], [address] CKRI 1.3 % (Normal) Range: 0.0-1.4 Comments: RELATIVE INDEX >1.5% IS PRESUMPTIVELY POSITIVE CPKMB 2.2 ng/mL (Normal) Range: 0.0-5.0 Comments: CK-MB and RI Interpretation MB Relative Index Non-AMI <or= 5 NA Indeterminate > 5 <or= 4 AMI > 5 > 4 CPK TOTAL 170 U/L (Normal) Range: 26-192 :25 Troponin I (16918) Comments: 'TROP' Serial specimen #1, #2, #3, or #4: INT'CKMB' Serial Specimen #1, #2 or #3? [address] [place] [address] [address]wrzljagg[address] [place], [place], [address] TROPONIN-I < 0.02 ng/mL (Normal) Comments: TROPONIN-I EXPECTED VALUES <0.05 NEGATIVE 0.06 - 0.59 AT RISK OF [place] > OR = 0.60 SUGGEST [place] :13 Urinalysis, Office (53757) UA - LEUKOCYTE ESTERASE Negative (Normal) UA - NITRITE Negative (Normal) URINE UROBILINGN SRAVANI TIMED Normal mg/dL (Normal) UA - PROTEIN Negative mg/dL (Normal) UA - PH 6 (Abnormal) UA - BLOOD Negative (Normal) UA - SPECIFIC GRAVITY 1.020 (Normal) UA - KETONES Negative mg/dL (Normal) UA - BILIRUBIN Negative (Normal) UA - GLUCOSE Negative (Normal) :41 CBC W/Diff, Automated Comments: [facility] [address]elmfub94[address] [place], [place], [address] Absolute Lymph 1.18 {X10_3/ul} (Normal) Range: 0.83-4.51 [...] 4.2-5.4 WBC 8.8 K/mm3 (Normal) Range: 4.4-11.0 67-Rmj-063408:41 Comprehensive Metabolic Profil Comments: [facility] [address]wjmjzzf[address] [place], [place], [address] GAP 9 (Normal) Range: 5-15 CO2 27.0 [...] 7-18 GLU 98 mg/dL (Normal) Range: 70-110 1-Lkl-775034:41 CBC W/Diff, Automated Comments: [facility] Mgjeztgluy9[address] [place], [place], [address] Absolute Lymph 1.54 {X10_3/ul} (Normal) Range: 0.83-4.51 [...] 4.2-5.4 WBC 6.6 K/mm3 (Normal) Range: 4.4-11.0 2-Vgs-941714:41 Comprehensive Metabolic Profil Comments: [facility] Cbqnejcgrw2945 [place], [place], [address] GAP 7 (Normal) Range: 5-15 CO2 30.0 [...] 7-18 GLU 102 mg/dL (Normal) Range: 70-110 15-Fsd-719918:44 CBC W/Diff, Automated Comments: [facility] Ldbminimll64[address] [place], [place], [address] Absolute Lymph 3.85 {X10_3/ul} (Normal) Range: 0.83-4.51 [...] 4.2-5.4 WBC 10.7 K/mm3 (Normal) Range: 4.4-11.0 33-Api-335745:44 Comprehensive Metabolic Profil Comments: ORDERED LIPID,CMPDR.LIOR ORDERED CMP,[facility] [address]yrrbca[address] [place], [place], [address] GAP 8 (Normal) Range: 5-15 CO2 29.0 [...] 7-18 GLU 78 mg/dL (Normal) Range: 70-110 80-Dje-074859:44 Lipid Profile Comments: ORDERED LIPID,CMPDRMERA ORDERED CMP,[facility] [address]krzvpznr6[address] [place], [place], [address] VLDL 33 mg/dL (Normal) Range: 5-40 LDL [...] 200-240 mg/dL Borderline >240 mg/dL High Risk 6-Ylp-149104:46 CBC W/Diff, Automated Comments: [facility] [address]osjhklad58[address] [place], [place], [address] Absolute Lymph 1.65 {X10_3/ul} (Normal) Range: 0.83-4.51 [...] Range: 4.4-11.0 :46 Comprehensive Metabolic Profil Comments: [facility] Qcrrrtvizo3606 [address] [place], [place], [address] GAP 9 (Normal) Range: 5-15 CO2 31.0 [...] per A.D.A. criteria. :46 Culture, Sputum Comments: [facility] [address]zwlnorqpv[address] [place], [place], [address] CUSP See Note (Normal) Comments: Gram StainAcceptable Specimen? Yes (<25 Epithelial cells per/lpf) Gram Stain Rare Gram positive rods 3+ Gram positive cocci 3+ White Blood Cells Rare Epithelial cells Resp. CultureMixed normal respiratory roxanne. No Streptococcus pneumoniae, beta-hemolytic Streptococcus or Staphylococcus aureus isolated. 07-Vtt-332505:13 CBC W/Diff, Automated Comments: Test performed at:[facility] [address]mlndqdr[address] [place], [place] [address] Absolute Lymph 1.78 {X10_3/ul} (Normal) Range: 0.83-4.51 [...] 4.2-5.4 WBC 5.3 K/mm3 (Normal) Range: 4.4-11.0 42-Elq-725768:13 Comprehensive Metabolic Profil Comments: Test performed at:[facility] [address]sezmthi69[address] [place], [place] [address] GAP 7 (Normal) Range: 5-15 CO2 26.0 [...] Comments: Please note revised CREATININE reference range cthwskyqr51/22/2015. BUN 18 mg/dL (Normal) Range: 7-18 GLU 124 mg/dL (Abnormal) Range: 70-110 Comments: Fasting Glucose result from 110 to <126 mg/dLsuggests IMPAIRED HOMEOSTASIS per A.D.A. criteria. 1-Ipd-330556:5 ENDOMETRIAL BX/CURETTINGS See Note (Normal) Comments: Test performed at:[facility] Mbezyocvfv[address] [facility] [place], [place] [address] 4 Comments: Patient: TIN BLACKWOOD : 1960 (53/F) Acct Num: [id number] Phys: Allie Bales MD Unit Num: [id number] Loc: [facility] [place] Specimen: [id number] Received: 11/06/14 - 1230 Spec Type: ENDOM BX/C TISSUES TISSUES: GROSS DESCRIPTION Received is one container labeled with the patient name and designated endometrial curettings. The specimen consists of multiple fragments o f hemorrhagic soft tissue measuring in aggregate 5 x 2 x 0.2 cm. The entire specimen is submitted in two cassettes. / SJ:yi 11/06/14 TC:5 CPT: 26322 HEADER OPERATION: Hysteroscopy, diagnosti c, D AND C PRE-OP DIAGNOSIS: Menorrhagia, thickened endometrium TISSUE SUBMITTED: Endometrial curettings MICROSCOPIC DIAGNOSIS Endometrium, curettings: Secretory endometrium. AM:s l 11/07/14 Signed Michael Frandy 11/07/14 <signature on file> 1-Xic-856871:48 Partial Thromboplast Time Comments: Test performed at:[facility] [address] [place] [address] PTT 26.6 s (Normal) Range: 24.1-36.2 7-Afb-577566:48 Prothrombin Time w/INR Comments: Test performed at:[facility] [address] [place] [address] INR 0.9 (Normal) PROTIME 12.2 s (Normal) Range: 11.7-14.9 9-Iij-532535:18 ,Urine Comments: Order Date: 11/06/14Has pt arrived? YTest performed at:[facility] [address]frcl[address] [facility] [place] [address] HCGUQUAL Negative {Negative} (Normal) Comments: Very dilute urine specimens, as indicated by a low specificgravity, may not contain account manager sales representative levels of hCG.If is still suspected, a first morning urinespecimen should be collected 48 hours later and tested. :26 Estradiol Comments: Test performed at:[facility] [address] [place] [address] ESTRADIOL 13.1 pg/mL (Normal) Comments: NORMAL REFERENCE RANGES FEMALE FOLLICULAR 21.4 - 164.8 pg/mL MID-CYCLE PEAK 49.9 - 367.2 pg/mL LUTEAL 40.2 - 259.0 pg/mL POST-MENOPAUSAL ON MHT <11.0 - 462.1 pg/mL NOT ON MHT <11.0 - 58.3 pg/mL MALE <11.0 - 52 .5 pg/mLNEW TEST METHOD AND REFERENCE RANGE SEPTEMBER 22, 2011:26 Free T3 Comments: Test performed at:[facility] [address] [place] [address] FREE T3 3.0 pg/mL (Normal) Range: 2.18-3.98 :26 Hemoglobin A1c Comments: Test performed at:[facility] F[address]clwbgqnk[address] [place] [address] ; ordered by other doctor HGB A1C 5.7 % (Normal) Range: 4.2-6.3 :26 Progesterone Level Comments: Test performed at:[facility] [address] [place] [address] Progesterone 0.34 ng/mL (Normal) Comments: Progesterone Reference Table: UNITS Female: Follicular 0.15 - 1.40 ng/mL Luteal 3.34 - 25.56 ng/mL Mid-luteal 4.44 - 28.03 ng/mL Postmenopausal 0.0 - 0.73 ng/mL : 1st Trimester 11.22 - 90.00 ng /mL 2nd Trimester 25.55 - 89.40 ng/mL 3rd Trimester 48.40 -422.50 ng/mL :26 T4 Free Direct Comments: Test performed at:[facility] [address]jghcjbxjr[address] [place] [address] T4 FREE DIRECT 0.77 ng/dL (Normal) Range: 0.76-1.46 :26 Testosterone, Serum Total Comments: Test performed at:[facility] Xdmlzfendg[address] [place] [address] Testosterone 30 ng/dL (Normal) Range: 14-76 Comments: ADDENDA: ordered by Dr. Bales :26 Thyroid Stim Hormone (TSH) Comments: Test performed at:[facility] [address] [place] [address] TSH 0.84 {uIU/mL} (Normal) Range: 0.358-3.74 1-Azk-573658:03 17-Hydroxypregnenolone, MS Comments: PATIENT NOT FASTINGPERFORMED BY: [facility] [id number] [facility] [id number] BY: [employer] Miqtrlxmvnahw9085 [facility] [id number] 17 [place] Pregnenolone, 14 ng/dL (Abnormal) Comments: Reference Range:Adults: 53 - 357 Serum, MS hCG,Beta Negative m[iU]/mL Comments: PATIENT NOT FASTINGPERFORMED BY: [facility] Higkyo5853 [facility] [id number] BY: [employer] Yxwrcoroammrc3072 [facility] [id number] 2:03 Subunit,Qual,Serum (Normal) Prolactin 10.9 ng/mL (Normal) Comments: PATIENT NOT FASTINGPERFORMED BY: [employer] [facility] Vvzxpg3616 [facility] [id number] BY: [employer] Shetibrxshfze6630 [facility] [id number] 2:03 Range: 4.8-23.3 0-Wjz-235485:03 Prothrombin Time (PT) Comments: PATIENT NOT FASTINGPERFORMED BY: [employer] [facility] Cmqmdb7336 [facility] [id number] BY: [employer] Pmsodoezsggzt6913 [facility] [id number] 11Clinical Information: [id number], [id number] Prothrombin Time 10.5 {sec} (Normal) Range: 9.1-12.0 INR 1.0 (Normal) Range: 0.8-1.2 Comments: Reference interval is for non-anticoagulated patients. . Suggested INR therapeutic range for Vitamin K anta gonist therapy: Standard Dose (moderate intensity therapeutic range): 2.0 - 3.0 Higher intensity therapeutic range 2.5 - 3.5 7-Zya-974340:03 PTT, Activated Comments: PATIENT NOT FASTINGPERFORMED BY: [facility]6[address] [facility] [id number] BY: NERISSA Bautista Vtjwfwcpqrexk1169 [facility] [id number] aPTT 27 {sec} (Normal) Range: 24-33 Comments: This test has not been validated for monitoring unfractionated heparintherapy. aPTT-based therapeutic ranges for unfractionated heparintherapy have not been established. For general guidelines onHeparin monitoring, refer to the [facility] Directory of Services. 3-Swl-915162:03 Thyroxine (T4) Free, Comments: PATIENT NOT FASTINGPERFORMED BY: [address] [id number] BY: NERISSA Michele [address] [id number] Direct, S T4,Free(Direct) 0.87 ng/dL (Normal) Range: 0.82-1.77 8-Mdy-603415:0 TSH 0.723 {uIU/mL} Comments: PATIENT NOT FASTINGPERFORMED BY: [place] 0128370 [facility] [id number] BY: NERISSA Michele [address] [id number] 3 (Normal) Range: 0.450-4.500 3-Kid-809932:01 CBC W/Diff, Automated Comments: Test performed at:[facility] [address] [place] [address] Absolute Lymph 1.51 {X10_3/ul} (Normal) Range: 0.83-4.51 [...] 4.2-5.4 WBC 5.7 K/mm3 (Normal) Range: 4.4-11.0 9-Ytv-757531:01 Comprehensive Metabolic Profil Comments: Test performed at:[facility] [address] [place] [address] GAP 7 (Normal) Range: 5-15 CO2 28.0 [...] 7-18 GLU 94 mg/dL (Normal) Range: 70-110 74-Bxj-262753:09 Urine Test, Office (70963) Urine Test, Office Negative (Normal) 17-Svj-223375:09 Urinalysis, Office (88724) UA - LEUKOCYTE ESTERASE Negative (Normal) UA - NITRITE Negative (Normal) URINE UROBILINGN SRAVANI TIMED Normal mg/dL (Normal) UA - PROTEIN Negative mg/dL (Normal) UA - PH 6 (Abnormal) UA - BLOOD Negative (Normal) UA - SPECIFIC GRAVITY 1.025 (Normal) UA - KETONES Negative mg/dL (Normal) UA - BILIRUBIN Negative (Normal) UA - GLUCOSE Negative (Normal) 6-Lqk-288940:14 CBC W/Diff, Automated Comments: Test performed at:[facility] [address] [place], [place] [address] Absolute Lymph 2.05 {X10_3/ul} (Normal) Range: 0.83-4.51 [...] 4.2-5.4 WBC 8.6 K/mm3 (Normal) Range: 4.4-11.0 3-Uob-047772:14 Comprehensive Metabolic Profil Comments: Test performed at:[facility] [address] [place], [place] [id number] GAP 2 (Abnormal) Range: 5-15 CO2 32.0 [...] 7-18 GLU 102 mg/dL (Normal) Range: 70-110 74-Ied-095847:18 CBCD ALC 1.55 {X10_3/ul} (Normal) Range: 0.83-4.51 [...] 4.2-5.4 WBC 7.2 K/mm3 (Normal) Range: 4.4-11.0 93-Ehp-361944:18 CMP GAP 4 (Abnormal) Range: 5-15 CO2 [...] 7-18 GLU 92 mg/dL (Normal) Range: 70-110 3-Gap-622679:31 CBCD ALC 1.45 {X10_3/ul} (Normal) Range: 0.83-4.51 [...] 4.2-5.4 WBC 7.6 K/mm3 (Normal) Range: 4.4-11.0 6-Fxo-045061:45 CMP GAP 8 (Normal) Range: 5-15 CO2 [...] Range: 70-110 :50 Blood Glucose , Office (68185) Blood Glucose , Office 143 (Normal) Comments: non-fasting :50 HgA1C , Office (59540) HgA1C , Office 5.8 % (Normal) Range: 4.6 - 7.1 :36 ISIAH Negative (Normal) Comments: Performed at: - [facility] [address] [id number] Director: Ricardo Pace MD, Phone: [phone] :[phone] CCP < 1 {units} (Normal) Range: 0-19 Comments: Negative <20Weak positive 20 - 39Moderate positive 40 - 59Strong positive >59Performed at: - [facility] [id number] Director: Stepan Hernandez MD, Phone: [phone] :[phone] CRP 3.36 mg/L (Abnormal) Range: 0.0-3.0 [...] (Normal) Range: 0.358-3.74 :46 HgA1C , Office (22327) HgA1C , Office 5.7 % (Normal) Range: 4.6 - 7.1 :46 Blood Glucose , Office (11228) Blood Glucose , Office 106 (Normal) :51 HgA1C , Office (80787) HgA1C , Office 5.8 % (Normal) Range: 4.6 - 7.1 :51 Blood Glucose , Office (85440) Blood Glucose , Office 122 (Normal) Comments: non-fasting :05 HgA1C , Office (91613) HgA1C , Office 5.8 % (Normal) Range: 4.6 - 7.1 :04 Blood Glucose , Office (24844) Blood Glucose , Office 137 (Normal) :25 HgA1C , Office (01845) HgA1C , Office 5.7 % (Normal) Range: 4.6 - 7.1 :25 Blood Glucose , Office (64291) Blood Glucose , Office 96 (Normal) :33 HEPATIC FUNCTION PANEL Comments: PATIENT NOT FASTINGPERFORMED BY: [facility]onRiverview Medical CenterKinbys3727 [facility] [id number] (52422) Alkaline Phosphatase, S 46 [iU]/L (Normal) Range: [...] function Panel Comments: PATIENT NOT FASTINGPERFORMED BY: [facility] [id number] Information: [id number] DRAW FEE [id number] (66273) Albumin, Serum 4.3 g/dL (Normal) Range: 3.5-5.5 [...] Glucose, Serum 105 mg/dL (Abnormal) Range: 65-99 79-Gpd-024820:04 Urinalysis, Office (83213) UA - BILIRUBIN Negative (Normal) UA - BLOOD Negative (Normal) UA - GLUCOSE Negative (Normal) UA - KETONES Negative mg/dL (Normal) UA - LEUKOCYTE ESTERASE Negative (Normal) UA - NITRITE Negative (Normal) UA - PH 6.0 (Normal) UA - PROTEIN Negative mg/dL (Normal) UA - SPECIFIC GRAVITY 1.025 (Normal) URINE UROBILINGN SRAVANI TIMED Normal mg/dL (Normal) 20-Yrq-598418:41 HgA1C , Office (31520) HgA1C , Office 5.9 % (Normal) Range: 4.6 - 7.1 05-May-20111:42 LQDPAP [id number] PAPSMR Comment (Normal) Comments: The Pap smear [...] no HPV testing was performed. .Performed at: [address] [id number] Director: John Echeverria MD, Phone: [phone] COMM . (Normal) DIAGN Comment (Normal) Comments: NEGATIVE FOR INTRAEPITHELIAL LESION AND MALIGNANCY.Satisfactory for evaluation. Endocervical and/or squamous metaplasticcells (endocervical component) are present.Holly Reed, It Security Analyst (ASCP)T his liquid based ThinPrep(R) pap test was screened withthe use of an image guided system. 47-Icr-774769:20 TSH (48000) Comments: PATIENT WAS FASTINGPERFORMED BY: [facility]6[address] [facility] [id number] TSH 2.160 {uIU/mL} (Normal) Range: 0.450-4.500 48-Qcl-788100:20 MICROALBUMIN: CREATININE RATIO Comments: PATIENT WAS FASTINGPERFORMED BY: [facility] [id number] (05045) AND (51004) Microalb/Creat Ratio 2.3 {mg/g_creat} (Normal) Range: 0.0-30.0 Microalbumin, Urine 1.6 ug/mL (Normal) Range: 0.0-17.0 Creatinine, Urine 70.5 mg/dL (Normal) Range: 15.0-278.0 01-Nfk-967125:20 METABOLIC PANEL, COMPREHENSIVE Comments: PATIENT WAS FASTINGPERFORMED BY: [facility] [id number] (87255) ALT (SGPT) 19 [iU]/L (Normal) Range: 0-40 [...] Glucose, Serum 109 mg/dL (Abnormal) Range: 65-99 30-Qvs-219938:20 LIPID PANEL (15095) Comments: PATIENT WAS FASTINGPERFORMED BY: [facility]Dor[facility] [id number] LDL/HDL Ratio 1.4 {ratio_units} (Normal) Range: 0.0-3.2 LDL Cholesterol Calc 108 mg/dL (Abnormal) Range: 0-99 VLDL Cholesterol Zaria 16 mg/dL (Normal) Range: 5-40 HDL Cholesterol 78 mg/dL (Normal) Comments: According to ATP-III Guidelines, HDL-C >59 mg/dL is considered anegative risk factor for CHD. Cholesterol, Total 202 mg/dL (Abnormal) Range: 100-199 Triglycerides 82 mg/dL (Normal) Range: 0-149 37-Man-233300:20 CBC WITH MANUAL DIFF Comments: PATIENT WAS FASTINGPERFORMED BY: [employer]6370 [facility]Dor[facility] [id number] Information: ADD [id number] AND DRAW FEE 99 0480 (53721) Immature Grans (Abs) 0.0 {x10E3/uL} (Normal) Range: [...] 3.80-5.10 WBC 5.2 {x10E3/uL} (Normal) Range: 4.0-10.5 24-Xpj-561566:05 URINE ALISSON CULTURE-SRAVANI COL Comments: PATIENT NOT FASTINGPERFORMED BY: LabCoInscription House Health CenterKldcep6671 [facility] [id number] Information: SRC:UR [id number] COUNT (59513) Antimicrobial MIHEAD (Normal) Comments: S = Susceptible; [...] Final report (Normal) Culture,Comprehensive :51 Urinalysis, Office (70981) UA - BILIRUBIN Negative (Normal) UA - BLOOD Hemolyzed Trace (Normal) UA - GLUCOSE Negative (Normal) UA - KETONES Negative mg/dL (Normal) UA - LEUKOCYTE ESTERASE Large (Normal) UA - NITRITE Negative (Normal) UA - PH 6.5 (Normal) UA - PROTEIN Negative mg/dL (Normal) UA - SPECIFIC GRAVITY 1.015 (Normal) URINE UROBILINGN SRAVANI TIMED Normal mg/dL (Normal) :53 CBC (Auto) (93836) Comments: PATIENT NOT FASTINGPERFORMED BY: [facility] [id number] Information: [id number] Platelets 271 {x10E3/uL} (Normal) Range: 140-415 RDW 13.4 % (Normal) Range: 11.7-15.0 MCHC 34.0 g/dL (Normal) Range: 32.0-36.0 MCH 31.0 pg (Normal) Range: 27.0-34.0 Hematocrit 37.9 % (Normal) Range: 34.0-44.0 MCV 91 fL (Normal) Range: 80-98 Hemoglobin 12.9 g/dL (Normal) Range: 11.5-15.0 RBC 4.16 {x10E6/uL} (Normal) Range: 3.80-5.10 WBC 4.7 {x10E3/uL} (Normal) Range: 4.0-10.5 :53 Potassium Serum (36458) Comments: PATIENT NOT FASTINGPERFORMED BY: ZirtualRiverview Medical CenterCvfega5442 [facility] [id number] Potassium, Serum 4.9 mmol/L (Normal) Range: 3.5-5.2 [...] 42 U/L (Normal) Comments: RESULTS FAXED 05/24/10 9033 CARLOS CAMPOS. 13:17 Range: 25-115 77-Dbx-771247:17 CBCD,SMEAR DIFF RED CELL MORPH SeeNote {NORMAL} [...] 4.2-5.4 WBC 3.0 K/mm3 (Abnormal) Range: 4.4-11.0 84-Czs-963742:17 COMP METABOLIC Comments: RESULTS FAXED 05/24/10 1522 [...] 0.6-1.0 GLU 82 mg/dL (Normal) Range: 70-110 91-Izc-944277:17 LIPASE 124 U/L (Normal) Comments: RESULTS FAXED 05/24/10 1522 CARLOS CAMPOS. Range: 70-290 Comments: Please note:LIPASE revised reference range effective 09. 3-Tux-688914:38 CBCD,SMEAR DIFF RED CELL MORPH SeeNote {NORMAL} [...] 4.2-5.4 WBC 5.3 K/mm3 (Normal) Range: 4.4-11.0 8-Ojx-844971:38 COMP METABOLIC GAP 8 (Normal) Range: 5-15 [...] 0.6-1.0 GLU 86 mg/dL (Normal) Range: 70-110 3-Tlv-479833:38 LIPID LDL 98 mg/dL (Normal) Range: 0-130 [...] Very High > or = 500 mg/dL 5-Hmr-919227:38 MICROALB:CRE UR MALB:CREAT 13.5 {mg/g_CRE} (Normal) MICROALBUMIN,UR 5.2 mg/L (Normal) UR CREAT 38.5 mg/dL (Normal) :38 TSH 0.50 {uIU/mL} (Normal) Range: 0.358-3.74 9-Ngp-436292:03 Urinalysis, Office (32410) UA - BILIRUBIN Negative (Normal) UA - BLOOD Hemolyzed Trace (Normal) UA - GLUCOSE Negative (Normal) UA - KETONES Negative mg/dL (Normal) UA - LEUKOCYTE ESTERASE Negative (Normal) UA - NITRITE Negative (Normal) UA - PH 6.5 (Normal) UA - PROTEIN Negative mg/dL (Normal) UA - SPECIFIC GRAVITY 1.020 (Normal) URINE UROBILINGN SRAVANI TIMED Normal mg/dL (Normal) 91-Cej-318040:01 Urinalysis, Office (39866) UA - BILIRUBIN Moderate (Normal) UA - BLOOD Hemolyzed Large (Normal) UA - GLUCOSE Negative (Normal) UA - KETONES Negative mg/dL (Normal) UA - LEUKOCYTE ESTERASE Negative (Normal) UA - NITRITE Negative (Normal) UA - PH 6.0 (Normal) UA - PROTEIN Negative mg/dL (Normal) UA - SPECIFIC GRAVITY 1.010 (Normal) URINE UROBILINGN SRAVANI TIMED Normal mg/dL (Normal) 99-Chz-588045:46 URINE ALISSON CULTURE-IDENTIFICATN Comments: PATIENT NOT FASTINGPERFORMED BY: [facility]6[address] [facility] [id number] Information: [id number] (31512) Result 1 NG36 (Normal) Comments: No growth in 36 - 48 hours. Urine Culture,Comprehensive Final report (Normal) : TSH (36641) Comments: PATIENT WAS FASTINGPERFORMED BY: [facility] [id number] TSH 1.190 {uIU/mL} (Normal) Range: 0.450-4.500 : METABOLIC PANEL, COMPREHENSIVE Comments: PATIENT WAS FASTINGPERFORMED BY: [facility]6[address] [facility] [id number] (70555) A/G Ratio 1.7 (Normal) Range: 1.1-2.5 Albumin, [...] Sodium, Serum 139 mmol/L (Normal) Range: 135-145 59-Lyj-036208:00 LIPID PANEL (13304) Comments: PATIENT WAS FASTINGPERFORMED BY: [facility] [employer] Apzvmk4881 [facility] [id number] Cholesterol, Total 231 mg/dL (Abnormal) Range: 100-199 HDL Cholesterol 79 mg/dL (Normal) Comments: According to ATP-III Guidelines, HDL-C >59 mg/dL is considered anegative risk factor for CHD. LDL Cholesterol Calc 127 mg/dL (Abnormal) Range: 0-99 LDL/HDL Ratio 1.6 {ratio_units} (Normal) Range: 0.0-3.2 Triglycerides 123 mg/dL (Normal) Range: 0-149 VLDL Cholesterol Zaria 25 mg/dL (Normal) Range: 5-40 67-Qbl-113692:00 CBC WITH MANUAL DIFF (12999) Comments: PATIENT WAS FASTINGClinical Information: [id number] PERFORMED BY: [facility] [employer] Qequdm7419 [facility] [id number] Baso (Absolute) 0.0 {x10E3/uL} (Normal) Range: 0.0-0.2 [...] Culture,Comprehensive Comments: Clinical Information: SRC:UR PERFORMED BY: [facility] Lkvqqy7523 [facility] [id number] Result 1 ECV (Normal) Comments: Escherichia coli, [...] S Urine Final report (Normal) Culture,Comprehensiv e 74-Eiv-532604:59 Urinalysis, Office (58629) UA - BILIRUBIN Negative (Normal) UA - BLOOD Hemolyzed Moderate (Normal) UA - GLUCOSE Negative (Normal) UA - KETONES Negative mg/dL (Normal) UA - LEUKOCYTE ESTERASE Moderate (Normal) UA - NITRITE Negative (Normal) UA - PH 6.0 (Normal) UA - PROTEIN Negative mg/dL (Normal) UA - SPECIFIC GRAVITY 1.015 (Normal) URINE UROBILINGN SRAVANI TIMED 2 mg/dL (Normal) 10-Ddq-657430:54 URINALYSIS W/O MICRO (15180) Comments: PATIENT WAS FASTINGPERFORMED BY: ZirtualRiverview Medical CenterYhckxh8016 [facility] [id number] Appearance Clear (Normal) Bilirubin Negative (Normal) Glucose Negative (Normal) Ketones Negative (Normal) Microscopic Examination MICRON (Normal) Comments: Microscopic follows if indicated. Nitrite, Urine Negative (Normal) Occult Blood Negative (Normal) pH 6.5 (Normal) Range: 5.0-7.5 Protein Negative (Normal) Specific [employer] 1.012 (Normal) Range: 1.005-1.030 Urine-Color Yellow (Normal) Urobilinogen,Semi-Qn 0.2 mg/dL (Normal) Range: 0.0-1.9 WBC Esterase Negative (Normal) :54 TSH (67104) Comments: PATIENT WAS FASTINGPERFORMED BY: ZirtualRiverview Medical CenterBwpueg1225 [facility] [id number] TSH 1.015 {uIU/mL} (Normal) Range: 0.450-4.500 :54 METABOLIC PANEL, COMPREHENSIVE Comments: PATIENT WAS FASTINGPERFORMED BY: ZirtualChristina [place] 3819670 [facility] [id number] (92324) A/G Ratio 1.5 (Normal) Range: 1.1-2.5 Albumin, [...] Serum 113 mg/dL (Abnormal) Range: 65-99 If -Iraqi >59 mL/min/1.73 Comments: Note: Persistent reduction for [...] Sodium, Serum 140 mmol/L (Normal) Range: 135-145 53-Ugp-590968:54 LIPID PANEL (95452) Comments: PATIENT WAS FASTINGPERFORMED BY: [employer] [place] [id number] Cholesterol, Total 199 mg/dL (Normal) Range: 100-199 [...] Cholesterol Zaria 26 mg/dL (Normal) Range: 5-40 94-Vks-651835:54 CBC WITH MANUAL DIFF (79621) Comments: PATIENT WAS FASTINGClinical Information: ADD DRAW FEE [id number] ADD J 36996 PERFORMED BY: [employer] [place] [id number] Baso (Absolute) 0.0 {x10E3/uL} (Normal) Range: 0.0-0.2 [...] change for the pediatric CBC With Differential/Platelet 76-Gyw-611087:32 PELVIC (NON-PREG) () Radiology Report See Note (Normal) Comments: Exam Number: [id number] PELVIC ULTRASOUND HISTORYOvarian cyst, left side. COMPARISON [...] 26, 2006. Reported By: MANSI SINGER M.D. :42 ISIAH-D [id number] ISIAH-DIRECT 32 U/mL (Normal) Range: 0-99 Comments: [...] Range: 0.2 - 1.0 :42 T3, FREE 63961 2.8 pg/mL (Normal) Range: 2.3-4.2 Comments: Performed At: [address] [id number] :42 T4 FREE,DIRECT 1.0 ng/dL (Normal) Range: 0.89-1.76 :42 TSH 0.54 {uIU/mL} (Normal) Range: 0.34-4.82 :56 MAMM, UILAT DIAG DIGITAL & CAD Radiology Report See Note (Normal) Comments: Exam Number: [id number] MAMMOGRAPHY, RIGHT UNILATERAL DIAGNOSTIC DIGITAL AND CAD [...] mammograms werealso examined with computer-aided detection software ([employer] Reported By: AARON DE ANDA M.D. :59 MAMM, BILAT SCRN DIGITAL & CAD Radiology Report See Note (Normal) Comments: Exam Number: [id number] BILATERAL SCREENING DIGITAL MAMMOGRAM CLINICAL INFORMATIONScreening. TECHNIQUEBilateral [...] werealso examined with computer- aided detection software ([employer] Reported By: SUSI MACK M.D. :59 PELVIC (NON-PREG) (HP) Radiology Report See Note (Normal) Comments: Exam Number: [id number] TRANSABDOMINAL PELVIC ULTRASOUND CLINICAL STATEMENTLower abdominal pain. [...] Anxiety: emotional health Indication: Impaired fasting glucose WWV V73.21 (Renamed from Prescient) : *Well Female Maintenance (KF) Indication: WWV V73.21 (Renamed from Prescient) WWV V73.21 (Renamed from Prescient) : Pap/Pelvic/Bimanual/Rectal/Breast Exam was done. Indication: WWV V73.21 (Renamed from Prescient) Dysuria : Water in diet, brief version Indication: Dysuria Dysuria : *UTI treatment Indication: Dysuria Dysuria : *UTI treatment Indication: Dysuria Dysuria : UTI treatment Indication: Dysuria Fatigue : FOLLOW UP IN 2 WEEKS Indication: Fatigue Fatigue : *fatigue education Indication: Fatigue Planned Observations MICROALBUMIN: CREATININE RATIO (45820) AND (82155)Indication: Hypertension On: :52 Request URINALYSIS (43386)Indication: Hypertension On: :52 Request CBC WITH MANUAL DIFF (96038)Indication: Hypertension On: :52 Request Metabolic Panel, Comprehensive (89946)Indication: Hypertension On: :52 Request Anti-TPO Antibody (89471)Indication: Subclinical hyperthyroidism On: 54-Ref-256426:40 Request Comments: check in February T4, FREE (THYROXINE) (49959)Indication: Subclinical hyperthyroidism On: 09-Yew-763523:40 Request Comments: check in February T-3 UPTAKE (80618)Indication: Subclinical hyperthyroidism On: 79-Sly-337596:40 Request Comments: recheck February TSH (69846)Indication: Subclinical hyperthyroidism On: 38-Urv-292199:40 Request Comments: recheck February CULTURE, SPUTUM (04097)Indication: COPD with acute exacerbation (Renamed from Acute exacerbation of chronic obstructive airways disease) On: 9-Uzx-227382:45 Request Anti-TPO Antibody (74442)Indication: Abnormal blood chemistry On: :18 Request T3, FREE (TRIDOTHYRONINE) (14994)Indication: Abnormal blood chemistry On: :18 Request T4, FREE (THYROXINE) (54983)Indication: Abnormal blood chemistry On: :18 Request TSH (58293)Indication: Abnormal blood chemistry On: 7-Gyl-128296:18 Request D-Dimer (76387)Indication: Chest pain On: 3-Jij-085584:49 Request Comments: do all labs stat...zaria to on zaria DrPeter if abnormal CPK MB FRACTION (67326)Indication: Chest pain On: 2-Ryn-087572:22 Request CREATINE KINASE TOTAL (95241)Indication: Chest pain On: 8-Uwc-668505:22 Request Metabolic Panel, Comprehensive (44859)Indication: Fatigue On: 5-Eig-311410:06 Request CBC, Platelets & Auto Diff (97889)Indication: Immunocompromised On: 9-Fbr-220118:03 Request CULTURE, SPUTUM (06580)Indication: Bronchitis, acute On: 4-Yeh-284219:58 Request METABOLIC PANEL, COMPREHENSIVE (87302)Indication: Benign essential hypertension On: 07-Tqh-345662:57 Request LIPID PANEL (40475)Indication: Benign essential hypertension On: 34-Pem-937842:57 Request T4, FREE (THYROXINE) (59403)Indication: Perimenopausal menorrhagia On: 8-Xat-583141:00 Request TSH (THYROID STIMULATING HORMONE) (66226)Indication: Perimenopausal menorrhagia On: 7-Jbx-002162:59 Request Comments: fax copy all labs to Dr. bales HCG (HUMAN CHORIONIC GONADOTROPIN) (26735)Indication: Perimenopausal menorrhagia On: 2-Oez-773012:57 Request PTT (ACTIVATED PARTIAL THROMBOPLASTIN TIME) (96164)Indication: Perimenopausal menorrhagia On: 2-Quu-748224:57 Request PT/INR, Office (90062)Indication: Perimenopausal menorrhagia On: :57 Request 17-HYDROXYPREGNENOLONE (79570)Indication: Perimenopausal menorrhagia On: :57 Request PROLACTIN (58752)Indication: Perimenopausal menorrhagia On: 9-Fpl-674349:57 Request LIPID PANEL (57760)Indication: Benign essential hypertension On: :28 Request CCP ANTIBODY (35186)Indication: Acute rheumatoid arthritis On: : Request SED RATE ERYTHROCYTE (40903)Indication: Acute rheumatoid arthritis On: : Request C-REACTIVE PROTEIN (35729)Indication: Acute rheumatoid arthritis On: : Request TSH (79545)Indication: Acute rheumatoid arthritis On: :17 Request RHEUMATOID FACTOR-QUANT (37101)Indication: Acute rheumatoid arthritis On: : Request ISIAH (ANTINUCLEAR ANTIBODY) (85874)Indication: Acute rheumatoid arthritis On: :17 Request URINALYSIS, W/ MICRO (23479)Indication: Benign essential hypertension On: : Request METABOLIC PANEL, COMPREHENSIVE (23588)Indication: Benign essential hypertension On: :20 Request LIPID PANEL (49191)Indication: Benign essential hypertension On: :20 Request CBC WITH MANUAL DIFF (22606)Indication: Benign essential hypertension On: : Request URINE ALISSON CULTURE (SRAVANI COL COUNT) (24042)Indication: Hematuria On: 99-Chd-059333:04 Request METABOLIC PANEL, COMPREHENSIVE (68639)Indication: Nausea and vomiting On: 22-Mbq-439497:02 Request CBC WITH MANUAL DIFF (99078)Indication: Nausea and vomiting On: 16-Bhx-413059:02 Request Lipase (08129)Indication: Nausea and vomiting On: :01 Request Amylase (72974)Indication: Nausea and vomiting On: : Request OVA & PARASITE DIR SMEAR (14417)Indication: Diarrhea On: : Request C.Difficile, Stool (68702)Indication: Diarrhea On: : Request LEUKOCYTE COUNT, FECAL (41900)Indication: Diarrhea On: : Request ALISSON CULTURE-STOOL (96208)Indication: Diarrhea On: : Request TSH (95066)Indication: Depression On: 2-Hww-019459:10 Request MICROALBUMIN: CREATININE RATIO (28352) AND (07710)Indication: Benign essential hypertension On: 5-Yun-561935:10 Request METABOLIC PANEL, COMPREHENSIVE (74031)Indication: Benign essential hypertension On: :10 Request LIPID PANEL (82928)Indication: Benign essential hypertension On: :09 Request CBC WITH MANUAL DIFF (91673)Indication: Benign essential hypertension On: 7-Iyd-459276:09 Request URINALYSIS W/O MICRO (25651)Indication: Benign essential hypertension On: :39 Request MICROALBUMIN URINE QUANT (35581)Indication: Benign essential hypertension On: :39 Request METABOLIC PANEL, COMPREHENSIVE (26389)Indication: Benign essential hypertension On: :39 Request LIPID PANEL (82443)Indication: Benign essential hypertension On: :39 Request ISIAH (ANTINUCLEAR ANTIBODY) (94972)Indication: Fatigue On: :39 Request C-REACTIVE PROTEIN (79437)Indication: Fatigue On: :39 Request CBC (AUTO) (83048)Indication: Fatigue On: :39 Request Folate (22600)Indication: Fatigue On: :39 Request METABOLIC PANEL, COMPREHENSIVE (69688)Indication: Fatigue On: :39 Request RHEUMATOID FACTOR-QUANT (00932)Indication: Fatigue On: :39 Request SED RATE ERYTHROCYTE (18108)Indication: Fatigue On: :39 Request TSH (37168)Indication: Fatigue On: :39 Request VITAMIN B-12 (CYANOCOBALAMIN) (17499)Indication: Fatigue On: :39 Request Planned Procedures MRI OF LUMBAR SPINE WITH AND WITHOUT On: 18-Jan-2018 Intent CONTRAST (91422)By: Shasha Barker MD Comments: rule out cauda equina syndrome, back injection also [facility] Shasha Barker MD THYROID SCAN UPTAKE (34907)By: On: 16-Nov-2017 Intent Shasha Barker MD, MD, Dana Comments: subacute thyrioditis vs autoimmune M Radiology - PelvisBy: Mj AL, On: 20-Oct-2017 Intent Shasha Ba MD Comments: attention left ischial tuberosity where pain and fall EMGBy: Shasha Barker MD On: 20-Oct-2017 Intent Shasha AL Comments: left arm Nerve ConductionBy: Shasha Barker MD On: 20-Oct-2017 Shasha Olmedo MD Comments: left arm Solu -Medrol Injection, 125 mg On: 15-May-2017 Intent ([id number])By: Shasha Barker MD Comments: Lot # [id number] solu medrol given right deltoid by Shasha Suggs lpn, MD Radiology - ChestBy: Mj [place], On: 15-May-2017 Intent Shasha Ba MD Solu- Medrol Injection, 125mg On: 12-May-2017 Intent ([id number])By: Shasha Barker MD, MD, Dana M Aerosol Treatment ([id number])By: Mj On: 12-May-2017 hSasha Cortez MD, MD, Dana M EKG ([id number])By: Shasha Barker MD On: 12-Mar-2017 Intent Shasha Barker MD Radiology - Foot - RightBy: Mj On: 18-Aug-2016 Shasha Cortez MD, MD, Dana M Comments: s/p fall and trauma ot right foot. CT - Chest (Without Contrast)By: On: 03-Jul-2016 Intent Shasha Barker MD, MD, Dana Comments: check in 6 months [address] - Chest (IV Contrast Needed)By: On: 23-Jun-2016 Intent Shasha Barker MD, MD, Dana M XRAY LEFT SMALL TOE ([id number])By: On: 20-May-2016 Intent Shasha Barker MD, MD, Dana Comments: 5th digit focus on area of pain and get distal metatarsal bone M MAMMOGRAM BREAST BILATERAL SCREENING On: 06-May-2016 Intent DIGITAL ([id number])By: Shasha Barker MD, MD, Dana M DEXA SCAN AXIAL SKELETON ([id number])By: On: 06-May-2016 Intent Shasha Barker MD, MD, Dana M Ultrasound - RenalBy: Mj AL, On: 07-Aug-2015 Intent Shasha Ba MD Nuclear Stress Test/Stress On: 08-Jun-2015 Intent SPECT/AdenosineBy: Shasha Barker MD, MD, Dana M Radiology - ChestBy: Chuyita ROSS Ophelia On: 27-Feb-2015 Intent E Radiology - ChestBy: Chuyita ROSS Ophelia On: 05-Feb-2015 Intent E Ultrasound - PelvisBy: Chuyita ROSS, On: 19-Jul-2014 Intent Vero EKG ([id number])By: Shasha Barker MD On: 23-Jun-2013 Intent Shasha Barker MD Comments: see scanned document of test done to see results reviewed today with patient MAMMOGRAM, SCREENING, BOTH BREASTS On: 23-Jun-2013 Intent ([id number])By: Shasha Barker MD, MD, Dana M Eprescribed prescriptions ([id number])By: On: 23-Jun-2013 Intent Shasha Barker MD, MD, Dana M Radiology - Hand - BilateralBy: On: 10-Feb-2013 Intent Shasha Barker MD, MD, Dana Comments: copy to Dr. suslove Whitten Eprescribed prescriptions ([id number])By: On: 10-Feb-2013 Intent Long [employer], Riana L Eprescribed prescriptions ([id number])By: On: 11-Oct-2012 Intent Shasha Barker MD, MD, Dana M EKG ([id number])By: Shasha Barker MD On: 11-Jun-2012 Intent Shasha Barker MD Eprescribed prescriptions ([id number])By: On: 11-Jun-2012 Intent Long [employer], Riana L CT - Abdomen & Pelvis (IV Contrast On: 12-Mar-2012 Intent Needed)By: Shasha Barker MD, MD, Dana M MAMMOGRAM, SCREENING, BOTH BREASTS On: 29-Apr-2011 Intent ([id number])By: Shasha Barker MD, MD, Dana M MAMMOGRAM, SCREENING, BOTH BREASTS On: 25-Apr-2011 Intent ([id number])By: Shasha Barker MD, MD, Dana M EKG ([id number])By: JACKIE Bruno On: 26-Aug-2010 Intent Ultrasound - GallbladderBy: Fast DO, On: 27-May-2010 Intent Philomena A Ultrasound - GallbladderBy: Fast DO, On: 24-May-2010 Intent Philomena A Doppler Ultrasound OtherBy: Augustine On: 25-Apr-2010 Intent Jeannette FARAH Comments: L lower extrrem- eval for clot and eval bakers cyst? size ? leaking ? Radiology - ChestBy: Mj AL, On: 23-May-2009 Intent Shasha Ba MD EKG ([id number])By: Shasha Barker MD On: 24-Apr-[address] - Brain/HeadBy: Shasha Barker MD On: 24-Apr-2009 Intent Shasha Gillespie MD EKG ([id number])By: Shasha Barker MD On: 14-Apr-2008 Intent Shasha Barker MD MAMMOGRAM, SCREENING, BOTH BREASTS On: 14-Apr-2008 Intent ([id number])By: Shasha Barker MD, MD, Dana M Ultrasound - PelvisBy: Mj AL, On: 23-Nov-2006 Intent Shasha Barker MD, Shasha Whitten EKG ([id number])By: MILTON ROSS PEGGY On: 10-Aug-2006 Intent Comments: NSR Planned Medications INJECTION, METHYLPREDNISOLONE SODIUM SUCCINATE, UP TO 125 MG Ordered: 12-May-2017 Pending Shasha Barker MD, MD, Dana M INJECTION, METHYLPREDNISOLONE SODIUM SUCCINATE, UP TO 125 MG Ordered: 15-May-2017 Pending Mj AL, Shasha Ba MD Instructions Name Dates Details BMI 31.0-31.9,adult : [...] Patient Instructions Indication: Impaired fasting glucose Encounters Phone Encounter On: 19-Mar-2018 12:03 [facility] [...] date: (04-07-11).Encounter Diagnosis: WWV V73.21 (Renamed from [facility]) [facility] Office Visit On: [...] (311.), Fatigue (780.79), WWV V73.21 (Renamed from [facility]) [facility] Annotation/Addendum On: 02-Oct-2010 [...] disturbance (368.9), Headache (784.0), Backache, unspecified (724.5), [facility] Office Visit On: [...] greater than left, use cockup splint, see pelligreno in [place]--did ncs 1year ago--show CTS, xray of hand [...]
--- OUTSIDE RECORDS SUMMARY | 2018-05-29 01:06 | XMS RPT_ITS | Continuity of Care Document ---
:1960 Author Organization [facility] Address [address] [place] [address] Phone Care Team Providers Name Role Phone [...] going to see spine surgeon/functional medicine at [facility] Dr Martínez 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 Deliveries (Parity) Comments: [...] ca se this would be the cause. [facility] 06-21 ? aspiration ? imipramine 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 Leg [...] Subclinical hyperthyroidism (E05.90, 242.90) Comments: uptake scan [facility] recheck. 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 Tobacco abuse (Z72.0, 305.1) 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 Urinary incontinence in female (R32, 788.30) Comments: it is better but still some. sending therapist to see her on this. elmiron help pain but expensive 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 Medications Name Dates Details Ambien CR 12.5 MG Oral Tablet Extended Release 1 Tablet ER at night prn for 0 days Quantity: 30 {Tablet} Refills: 4 Ordered:03-Nov-2017 Mj AL, Shasha Garcia MD, Shasha Whitten Start : 03-Nov-2017 Active Comments:[id number] called to [place] -er AmLODIPine Besylate 5 [...] End : 18-Aug-2017 Inactive Comments:06-09-17-er called to Arava 20 MG Oral Tablet 1 (one) Tablet Tablet qd for 0 days Quantity: 30 {Tablet} Refills: 0 Ordered:06-May-2016 Franny Davin Start : 08-Jun-2015 End : 06-May-2016 Inactive [...] End : 14-Jul-2017 Inactive Comments: d/c per [facility] had fatgiue and GI upset CIPRO, [...] days Quantity: 30 {Capsule} Refills: 0 Ordered:06-Apr-2015 Aisamanthaira ROSSOphelia Start : 27-Feb-2015 End : 29-Mar-2015 [...] End : 14-Jul-2017 Inactive Comments: d/c per [facility] LEUCOVORIN CALCIUM, 15MG (Oral Tablet) 1 (one) Tablet once a week for 30 days Quantity: 30 {Tablet} Refills: 0 Ordered:21-Aug-2014 Chuyita ROSS Ophelia Estrada Start : 19-Jul-2014 End : 18-Aug-2014 Inactive [...] Start : 29-Jan-2010 End : 08-Feb-2010 Inactive Rumney 7.5-325 MG Oral Tablet 1 (one) Tablet two times daily for 0 days Quantity: 60 {Tablet} Refills: 0 Ordered:26-Jan-2017 JACKIE Bruno Start : 26-Jan-2017 End : 26-Jan-2017 Inactive Rumney 7.5-325 MG Oral Tablet tid prn (7.5-325 [...] days Quantity: 30 {Tablet} Refills: 0 Ordered:25-Apr-2011 Mj AL, Shasha Garcia MD, Shasha Whitten Start : 25-Apr-2011 End [...] Quantity: 30 {Tablet} Refills: 3 Ordered:27-Feb-2015 Slarb SHANK PAPERER, Ambreen Start : 07-Sep-2014 End : 27-Feb-2015 Discontinued LODINE XL, 400MG (Oral Tablet Extended Release 24 Hour) 1 two times daily for 0 days Refills: 0 Ordered:03-Apr-2010 Riana Villalobos LPN L End : 03-Apr-2010 Discontinued Comments:This order [...] Quantity: 30 {Tablet} Refills: 0 Ordered:27-Feb-2015 Slarb SHANK PAPERER, Ambreen Start : 05-Feb-2015 End : 27-Feb-2015 [...] (R79.9, 790.6) Comments: tsh off will call [facility] and get leaves will follow Status: Resolved as of 15-May-2017 Abnormal finding on radiology exam (R93.8, 793.99) Comments: remains on levaquin and prednisone seeing Dr. Deangelo vallecillo in [place] next week. Status: Inactive as of 04-Sep-2016 [...] osteoarthritis (M19.90, 715.90) Comments: MRI one erosion [place] not sure iseronegative RA will be on [...] 1.[address] chest in [facility] ee with radiology at [facility] can they compare for me with her old CT studies that show liver. had hemangioma so ? same size. radiology [...] inside ?olyp ? adenomyosis. ? endometriosis to editorial director Status: Inactive as of 15-Mar-2015 Perimenopausal menorrhagia [...] as of 15-Mar-2015 WWV V73.21 (Renamed from WWV) Comments: scope at 52 recommend but refusing must do right now refuse mammo and pap. wrote for mammo just in case will get Status: Inactive as of 15-Mar-2015 Yeast infection (B37.9, 112.9) Status: Inactive as of 15-Mar-2015 Procedures Procedure Dates Details ARTHROPLASTY, HIP, TOTAL (06491) Completed Comments: left @ [facility] 03-18-18 Dr. Wnedy Mckoy Carpal Tunnel b/l wrist Completed Colonoscopy, Screening Completed Comments: 01-01-[address] Gutierrez Dilation and Curettage of Uterus Completed Nov-2015 kidney sx as Completed partial knee replacement -- Left Leg Completed .2010 right lobe resection-lung Completed Comments: February 2015 Date Value Details 10-Feb-2018 Lower Ext Joint Only W/WO Cont Result: Comments: See Note; NOTES: [facility] Imaging Services [address] [place] [address] Lower Ext Joint Only W/WO Cont MR#: [id number] Acct: [id number] Name: TIN BLACKWOOD Rep # : [id number] : 1960 F 57 From: Kadie Dailey MD PCP: Shasha Barker MD Status: REG CLI Study: Lower Ext Joint Only W/WO Cont Date of Exam: 02/10/18 Exam# [id number] Ordering Dr: CARLOS SHELBY M.D. STUDY: MRI [...] CC: CARLOS SHELBY M.D.; Shasha Barker MD Sales Representative Electric Service: Signed 28-Jan-2018 Chest without Contrast Result: Comments: See Note; NOTES: [facility] Imaging Services [address] [place] [address] Chest without Contrast MR#: [id number] Acct: [id number] Name: TIN BLACKWOOD Rep #: [id number] : 1960 F 57 From: Vazquez Kaye MD PCP: Shasha Barker MD Status: REG CLI Study: Chest without Contrast Date of Exam: 01/28/18 Exam# [id number] Ordering Dr: Pelon Chatterjee MD STUDY: CT [...] CC: Shasha Barker MD; Pelon Chatterjee MD Sales Representative Electric Service: Signed 20-Jan-2018 Emergency Department Summary Result: Comments: See Note; NOTES: [facility] Medical Records Department [address] [place] [address] Emergency Department Summary 01/19/18 1534 MR#: [id number] Acct: [id number] Name: TIN BLACKWOOD Rep #: [id number] : 1960 57 From: Rolando Mc MD [...] Lumbar radiculopathy This note was generated with [employer] dictation software. It may contain incorrect words, [...] your Primary Care Provider. Call [facility] ([phone]) or report t o the closest Emergency Room. Call 911 if necessary. 01/20/18 0235 <Electronically signed by Rolando Mc MD> Date Rolando Mc MD Cosigner Signature (If Indicated): Date CC: Shasha Barker MD 19-Jan-2018 Spine Lumbar (Routine) Result: Comments: See Note; NOTES: [facility] Imaging Services [address] [place] [address] Spine Lumbar (Routine) MR#: [id number] Acct: [id number] Name: TIN BLACKWOOD Rep #: [id number] : 1960 F 57 From: Nabeel Bernabe MD PCP: Shasha Barker MD Status: REG ER Study: Spine Lumbar (Routine) Date of Exam: 01/19/18 Exam# [id number] Ordering Dr: Rolando Mc MD STUDY: MRI [...] , CC: Shasha Barker MD; Rolando Mc Sales Representative Electric Service: Signed 19-Jan-2018 Spine Lumbar (Routine) Result: Comments: See Note; NOTES: [facility] Imaging Services [address] [place] [address] Spine Lumbar (Routine) MR#: [id number] Acct: [id number] Name: TIN BLACKWOOD Rep #: [id number] : 1960 F 57 From: Nabeel Bernabe MD PCP: Shasha Barker MD Status: REG Study: Spine Lumbar (Routine) Date of Exam: 01/19/18 Exam# [id number] Ordering Dr: Rolando Mc MD STUDY: MRI [...] support , CC: Shasha Barker MD; Rolando cM Sales Representative Electric Service: Signed 10-Dec-2017 Lower Ext/No Jt/w/o Result: Comments: See Note; NOTES: [facility] Imaging Services [address] [place] [address] Lower Ext/No Jt/w/o MR#: [id number] Acct: [id number] Name: TIN BLACKWOOD Rep #: [id number] : 1960 F 56 From: Julio Cannon MD PCP: Shasha Barker MD Status: REG CLI Study: Lower Ext/No Jt/w/o Date of Exam: 12/10/17 Exam# [id number] Ordering Dr: Nabeel Danielle DPM STUDY: MRI [...] CC: Shasha Barker MD; Nabeel Danielle DPM Sales Representative Electric Service: Signed 18-Nov-2017 Thyroid Uptake Single or Mult Result: Comments: See Note; NOTES: [facility] Imaging Services [address] [place] [address] Thyroid Uptake Single or Mult MR#: [id number] Acct: [id number] Name: TIN BLACKWOOD Rep #: [id number] : 1960 F 56 From: Asif Pagan DO PCP: Shasha Barker MD Status: REG CLI Study: Thyroid Uptake Single or Mult Date of Exam: 11/18/17 Exam# [id number] Ordering Dr: Shasha Barker MD C LINICAL: [...] to the presence of visualized th yroid awsxaru-Y-xulwgg thyroid gland. 3. No hypofunctioning, cold nodules are identified. Electronically Signed: Asif Pagan DO at 22:10 EDT Tel , Service support , CC: Shasha Barker MD Sales Representative Electric Service: Signed 16-Nov-2017 Spine Cervical (Routine) Result: Comments: See Note; NOTES: [facility] Imaging Services [address] [place] [address] Spine Cervical (Routine) MR#: [id number] Acct: [id number] Name: TIN BLACKWOOD Rep #: [id number] : 1960 F 56 From: Andrew Duran DO PCP: Shasha Barker MD Status: REG CLI Study: Spine Cervical (Routine) Date of Exam: 11/16/17 Exam# [id number] Ordering Dr: More Taylor MD STUDY: MRI [...] CC: More Taylor MD; Shasha Barker MD Sales Representative Electric Service: Signed 03-Nov-2017 Pelvis 1 or 2 Views Result: Comments: See Note; NOTES: [facility] Imaging Services [address] [place] [address] Pelvis 1 or 2 Views MR#: [id number] Acct: [id number] Name: TIN BLACKWOOD Fabby Rep #: [id number] : 1960 F 56 From: Vale Godoy MD PCP: Shasha Barker MD Status: REG CLI Study: Pelvis 1 or 2 Views Date of Exam: 11/03/17 Exam# [id number] Ordering Dr: Shasha Barker MD STUDY: X-RAY [...] at 17:01 EDT Tel , Service support [phone], CC: Shasha Barker MD Sales Representative Electric Service: Signed 27-Aug-2017 Orb Sella Post Fossa Ear w/o Result: Comments: See Note; NOTES: [facility] Imaging Services [address] [place] [address] Orb Sella Post Fossa Ear w/o MR#: [id number] Acct: [id number] Name: TIN BLACKWOOD Rep #: [id number] : 1960 F 56 From: Nir Dudley MD PCP: Shasha Barker MD Status: REG CLI Study: Orb Sella Post Fossa Ear w/o Date of Exam: 08/27/17 Exam# [id number] Ordering Dr: Dale Zuniga STUDY: CT TEMPORAL [...] CC: Beni Zuniga MD; Shasha Barker MD Sales Representative Electric Service: Signed 25-May-2017 Chest PA and Lateral Result: Comments: See Note; NOTES: [facility] Imaging Services [address] [place] [address] Chest PA and Lateral MR#: [id number] Acct: [id number] Name: TIN BLACKWOOD Rep #: [id number] : 1960 F 56 From: Aguilar Joaquin MD PCP: Shasha Barker MD Status: REG RCR Study: Chest PA and Lateral Date of Exam: 05/25/17 Exam# [id number] Ordering Dr: Pelon Chatterjee MD STUDY: X-RAY [...] Aguilar Joaquin MD at 19:35 EST Tel [phone], Service support , CC: Shasha Barker MD; Pelon Chatterjee MD Sales Representative Electric Service: Signed 15-May-2017 Chest PA and Lateral Result: Comments: See Note; NOTES: [facility] Imaging Services [address] [place] [address] Chest PA and Lateral MR#: [id number] Acct: [id number] Name: TIN BLACKWOOD Rep #: [id number] : 1960 F 56 From: Patrice Pinto MD PCP: Shasha Barker MD Status: REG CLI Study: Chest PA and Lateral Date of Exam: 05/15/17 Exam# [id number] Ordering Dr: Shasha Barker MD STUDY: X-RAY [...] Service support , CC: Shasha Barker MD Sales Representative Electric Service: Signed 21-Jan-2017 Emergency Department Summary Result: Comments: See Note; NOTES: [facility] Medical Records Department [address] [place] [address] Emergency Department Summary 01/20/17 2344 MR#: [id number] Acct: [id number] Name: TIN BLACKWOOD Rep #: [id number] : 1960 56 From: Christian Hemphill PCP: [...] for ED Patient: Disposition: Acute Care Hospital [facility] Chief Complaint: Shortness of Breath Diagnosis: Pulmonary fibro sis, Hypoxemia, Elevated troponin, Pulmonary nodule, right Referrals: Shasha Barker MD [Primary Care Provider] - What to do if you have Problems For any increased pain, shortness of breath, bleedin g, nausea or vomiting, chest pain, or any unexpected problems, contact your Primary Care Provider. Call [facility] ([phone]) or report to the closest Emergency Room. Call 911 if necessary. 01/21/17 0231 <Electronically signed by Christian Hemphill> Date Christian Hemphill Cosigner Signature (If Indicated): Date CC: Shasha Barker MD 21-Jan-2017 CTA Chest W/WO Contrast Result: Comments: See Note; NOTES: [facility] Imaging Services [address] [place] [address] CTA Chest W/WO Contrast MR#: [id number] Acct: [id number] Name: TIN BLACKWOOD Rep #: [id number] : 1960 F 56 From: Stepan Mayberry MD PCP: Shasha Barker MD Status: REG ER Study: CTA Chest W/WO Contrast Date of Exam: 01/21/17 Exam# [id number] Ordering Dr: Christian Schrader DO STUDY: CTA [...] , CC: Shasha Barker MD; Christian Schrader Sales Representative Electric Service: Signed 20-Jan-2017 Chest PA and Lateral Result: Comments: See Note; NOTES: [facility] Imaging Services [address] [place] [address] Chest PA and Lateral MR#: [id number] Acct: [id number] Name: TIN BLACKWOOD Rep #: [id number] : 1960 F 56 From: Stepan Mayberry MD PCP: Shasha Barker MD Status: REG ER Study: Chest PA and Lateral Date of Exam: 01/20/17 Exam# [id number] Ordering Dr: Christian Schrader DO STUDY: X-RAY [...] , CC: Shasha Barker MD; Christian Schrader Sales Representative Electric Service: Signed 21-Nov-2016 PT D/C Summary (1) Result: Comments: See Note; NOTES: [facility] [address] [place] [address]. [address] [place] [address] Fax [facility] MR#: [id number] Acct: [id number] Name: TIN BLACKWOOD Rep #: [id number] : 1960 55 From: Yury Lawrence PT, Cert. MDT, OCS Referring Dr.: Shasha Barker MD Status: REG RCR Insurance: A [facility] HP - PT D/C Summary It has been [...] please feel free to call me at [phone]. Thank you for the referral of this patient. Sincerely, Yury Lawrence PT, <Electronically signed by Cert. ANNA Simms PT, OCS> 11/21/16 1533 CC: Shasha Barker MD JLA Signed 22-Oct-2016 Inital Evaluation (1) - PT Result: Comments: See Note; NOTES: [facility] [address] [place] [address] Fax REHABILITATION SERVICES INITIAL EVALUATION MR#: [id number] Acct: [id number] Name: TIN BLACKWOOD Rep #: [id number] : 1960 55 From: Cert. ANNA Simms PT, OCS Referring Dr.: Shasha Barker MD Status: REG RCR Insurance: [employer] Patient's Visit Information TIN BLACKWOOD is a [...] to be FAXED BACK to us at [phone] for Medicare purposes. Please let me know [...] and Lateral Result: Comments: See Note; NOTES: [facility] Imaging Services [address] [place] [address] Verdana 4d Chest PA and Lateral MR#: [id number] Acct: [id number] Name: TIN BLACKWOOD Rep #: [id number] : 1960 F 55 From: Hair Rogers MD PCP: Shasha Barker MD Status: REG CLI Study: Chest PA and Lateral Date of Exam: 09/11/16 Exam# [id number] Ordering Dr: Pelon Chatterjee MD STUDY: X-RAY [...] CC: Shasha Barker MD; Pelon Chatterjee MD Sales Representative Electric Service: Signed 18-Aug-2016 Foot min 3 Views Result: Comments: See Note; NOTES: [facility] Imaging Services [address] [place] [address] Verdana 4d Foot min 3 Views MR#: [id number] Acct: [id number] Name: TIN BLACKWOOD Rep #: [id number] : 1960 F 55 From: Smith Delaney MD PCP: Shasha Barker MD Status: REG CLI Study: Foot min 3 Views Date of Exam: 08/18/16 Exam# [id number] Ordering Dr: Shasha Barker MD STUDY: X-RAY - [facility] FOOT CLINICAL: Female, 55 years old. [...] Service support , CC: Shasha Barker MD Sales Representative Electric Service: Signed 05-Aug-2016 Chest 1 View (Portable) Result: Comments: See Note; NOTES: [facility] Imaging Services [address] [place] [address] Verdana 4d Chest 1 View (Portable) MR#: [id number] Acct: [id number] Name: TIN BLACKWOOD Rep #: [id number] : 1960 F 55 From: Aguilar Joaquin MD PCP: Shasha Barker MD Status: REG ER Study: Chest 1 View (Portable) Date of Exam: 08/05/16 Exam# [id number] Ordering Dr: Regino Hinson MD STUDY: X-RAY [...] Aguilar Joaquin MD at 9:42 EDT Tel [phone], Service support [phone], CC: Shasha Barker MD; Regino Hinson MD Sales Representative Electric Service: Signed 01-Jul-2016 Chest WITH Contrast Result: Comments: See Note; NOTES: [facility] Imaging Services [address] [place] [address] Verdana 4d Chest WITH Contrast MR#: [id number] Acct: [id number] Name: TIN BLACKWOOD Rep #: [id number] : 1960 F 55 From: Keyshawn Unger DO PCP: Shasha Barker MD Status: REG CLI Study: Chest WITH Contrast Date of Exam: 07/01/16 Exam# [id number] Ordering Dr: Shasha Barker MD STUDY: CT [...] at 22:47 EST Tel , Service support [phone], CC: Shasha Barker MD Sales Representative Electric Service: Signed 17-Jun-2016 Spine Cervical (Routine) Result: Comments: See Note; NOTES: [facility] Imaging Services [address] [place] [address] Verda 4d Spine Cervical (Routine) MR#: [id number] Acct: [id number] Name: TIN BLACKWOOD Barbara p #: [id number] : 1960 F 55 From: Kadie Dailey MD PCP: Shasha Barker MD Status: REG CLI Study: Spine Cervical (Routine) Date of Exam: 06/17/16 Exam# [id number] Ordering Dr: More Taylor MD STUD Y: [...] MD at 11:29 EST , Service support [phone], CC: More Taylor MD; Shasha Barker MD Sales Representative Electric Service: Signed 17-Jun-2016 Spine Thoracic (Routine) Result: Comments: See Note; NOTES: [facility] Imaging Services [address] [place] [address] Verdana 4d Spine Thoracic (Routine) MR#: [id number] Acct: [id number] Name: TIN BLACKWOOD #: [id number] : 1960 F 55 From: Kadie Dailey MD PCP: Shasha Barker MD Status: REG CLI Study: Spine Thoracic (Routine) Date of Exam: 06/17/16 Exam# [id number] Ordering Dr: More Taylor MD STUD Y: [...] MD at 11:55 EST , Service support [phone], CC: Ira Taylor MD; Shasha Barker MD Sales Representative Electric Service: Signed 29-May-2016 Dexa Bone Density Study (HP) Result: Comments: See Note; NOTES: [facility] Imaging Services [address] [place] [address] Verda 4d Dexa Bone Density Study (HP) MR#: [id number] Acct: [id number] Name: ELISSA BLACKWOOD Rep #: [id number] : 1960 F 55 From: Aguilar Joaquin MD PCP: Shasha Barker MD Status: REG CL Study: Dexa Bone Density Study (HP) Date of Exam: 05/29/16 Exam# [id number] Ordering Dr: Shasha Barker MD STUDY: DUAL [...] Aguilar Joaquin MD at 13:27 EST Tel [phone], Service support [phone], CC: Shasha Barker MD Sales Representative Electric Service: Signed 29-May-2016 SCREENING MAMM (CAD), BILAT Result: Comments: See Note; NOTES: [facility] Imaging Services [address] [place] [address] Verdana 4d SCREENING MAMM (CAD), BILAT MR#: [id number] Acct: [id number] Name: TIN BLACKWOOD Rep #: [id number] : 1960 F 55 From: Aguilar Joaquin MD PCP: Shasha Barker MD Status: REG CLI Study: SCREENING MAMM (CAD), BILAT Date of Exam: 05/29/16 Exam# [id number] Ordering Dr: Yoana Barker MD MAMMOGRAPHY - [...] delay biopsy of a clinically suspicious abnormality. [id number] Electronically Signed: Aguilar Joaquin MD at 15:18 EST Tel [phone], Service support [phone], CC: Shasha Barker MD Sales Representative Electric Service: Signed 29-Nov-2015 NCS and/or EMG Patient Result: Comments: See Note; NOTES: [facility] Pulmonary Services/Neurology [address] [place] [address] NCS and/or EMG Patient MR#: [id number] Acct: [id number] Name: TIN BLACKWOOD Rep #: [id number] : 1960 54 From: Lucas Kiser MD Referring Dr: More Taylor MD Status: REG CLI Ordering Dr: More Taylor MD Date: 11/27/15 Location: [facility] Sex: F C DATE OF SE RVICE: [...] radiculopathy. Lucas hand MD T: NTS JOB: [id number] 11/29/15 0959 <Electronically signed by Lucas Kiser MD> Date Lucas Kiser MD CC: More Taylor MD; Shasha Barker MD; Lucas Kiser MD Date Dictated: 11/27/15 1145 Date Transcribed: 11/27/15 1145 Sales Representative Electric Service: Signed 12-Oct-2015 Spine Lumbar (Routine) Result: Comments: See Note; NOTES: [facility] Imaging Services [address] [place] [address] Verdana 4d Spine Lumbar (Routine) MR#: [id number] Acct: [id number] Name: TIN BLACKWOOD Rep #: [id number] : 1960 F 54 From: Nabeel Bernabe MD PCP: Shasha Barker MD Status: REG CLI Study: Spine Lumbar (Routine) Date of Exam: 10/12/15 Exam# [id number] Ordering Dr: More Taylor MD STUDY: MRI [...] MD at 20:50 EDT , Service support [phone], CC: More Taylor MD; Shasha Barker MD Sales Representative Electric Service: Signed 12-Oct-2015 Lumbar Spine 2 or 3 Views Result: Comments: See Note; NOTES: [facility] Imaging Services [address] [place] [address] Verdana 4d Lumbar Spine 2 or 3 Views MR#: [id number] Acct: [id number] Name: TIN LLOYD Rep #: [id number] : 1960 F 54 From: Smith Delaney MD PCP: Shasha Barker MD Status: REG CLI Study: Lumbar Spine 2 or 3 Views Date of Exam: 10/12/15 Exam# [id number] Ordering Dr: More Watts MD STUDY: X-RAY [...] FACR at 8:27 EDT , Service support [phone], CC: More Taylor MD; Shasha Barker MD Sales Representative Electric Service: Signed 12-Oct-2015 Thoracic Spine 3 Views Result: Comments: See Note; NOTES: [facility] Imaging Services [address] [place] [address] Verda 4d Thoracic Spine 3 Views MR#: [id number] Acct: [id number] Name: TIN BLACKWOOD Rep #: [id number] : 1960 F 54 From: Smith Delaney MD PCP: Shasha Barker MD Status: REG CLI Study: Thoracic Spine 3 Views Date of Exam: 10/12/15 Exam# [id number] Ordering Dr: More Taylor MD STUDY: X-RAY [...] FACR at 8:26 EDT , Service support [phone], 0082 RAD/Thoracic Spine 3 Views IMPRESSION : Thoracic spondylosis with multilevel degenerative disc disease Electronically Signed: Smith Delaney MD, FACR at 8:26 EDT , Service support [phone], Fax CC: More Taylor MD; Shasha Barker MD Sales Representative Electric Service: Signed 03-Oct-2015 Chest PA and Lateral Result: Comments: See Note; NOTES: [facility] Imaging Services [address] [place] [address] Vercorpus christi 4d Chest PA and Lateral MR#: [id number] Acct: [id number] Name: Hero BLACKWOOD Rep #: [id number] : 1960 F 54 From: Aguilar Joaquin MD PCP: Shasha Barker MD Status: REG CLI Study: Chest PA and Lateral Date of Exam: 10/03/15 Exam# [id number] Ordering Dr: Hortensia Mcnamara i, MD STUDY: [...] Aguilar Joaquin MD at 12:56 EDT Tel [phone], Service support [phone], RAD/Chest PA and Lateral IMPRESSION: Minimal degree of res idual increased markings at the lung bases as compared to prior study. Electronically Signed: Aguilar Joaquin MD at 12:56 EDT Tel [phone], Service support [phone], Fax CC: Shasha Barker MD; Hortensia Tinajero MD Sales Representative Electric Service: Signed 05-Sep-2015 Kidney and Bladder Result: Comments: See Note; NOTES: [facility] Imaging Services [address] [place] [address] Verdana 4d Kidney and Bladder MR#: [id number] Acct: [id number] Name: KARINA BLACKWOOD Rep #: [id number] : 1960 F 54 From: Aguilar Joaquin MD PCP: Shasha Barker MD Status: REG CLI Study: Kidney and Bladder Date of Exam: 09/05/15 Exam# [id number] Ordering Dr: Sacha Barker MD STUDY: RENAL [...] Aguilar Joaquin MD at 10:56 EDT Tel [phone], Service support [phone], CC: Shasha Barker MD Sales Representative Electric Service: Signed 22-Jun-2015 Nuclear Stress Test - Chemical Result: Comments: See Note; NOTES: [facility] Imaging Services [address] [place] [address] Verdana 4d Nuclear Stress Test - Chemical MR#: [id number] Acct: [id number] N miguel: TIN BLACKWOOD Rep #: [id number] : 1960 54 From: Dusty Lund MD [...] fraction. Dusty Lund MD T: NTS JOB: [id number] 06/26/15 1259 & #60;Electronically signed by Dusty Lund MD> Date Dusty Lund MD CC: Shasha Barker MD Date Dictated: 06/22/151819 Date Transcribed: 06/22/151819 Sales Representative Electric Service: Signed 13-Jun-2015 Lumbar Spine 2 or 3 Views Result: Comments: See Note; NOTES: [facility] Imaging Services [address] [place] [address] Verdana 4d Lumbar Spine 2 or 3 Views MR#: [id number] Acct: [id number] Name: TIN LLOYD Rep #: [id number] : 1960 F 54 From: Smith Delaney MD PCP: Shasha Barker MD Status: REG CLI Study: Lumbar Spine 2 or 3 Views Date of Exam: 06/13/15 Exam# [id number] Ordering Dr: More Watts MD STUDY: X-RAY [...] FACR at 11:06 EST , Service support [phone], RAD/Lumbar Spine 2 or 3 Views IM PRESSION: Degenerative disc disease at L4-5 and L5-S1. Electronically Signed: Smith Delaney MD, FACR at 11:06 EST , Service support [phone], CC: More Taylor MD; Shasha Barker MD Sales Representative Electric Service: Signed 13-Jun-2015 Thoracic Spine 3 Views Result: Comments: See Note; NOTES: [facility] Imaging Services [address] [place] [address] Verdakelly 4d Thoracic Spine 3 Views MR#: [id number] Acct: [id number] Name: TIN BLACKWOOD Rep #: [id number] : 1960 F 54 From: Smith Delaney MD PCP: Shasha Barker MD Status: REG CLI Study: Thoracic Spine 3 Views Date of Exam: 06/13/15 Exam# [id number] Ordering Dr: More Taylor MD ADDENDUM by Smith Delaney MD on 06/14/15 at 1105 ADDENDUM TECHNIQUE: 3 view(s) o f the thoracic spine were obtained. Electronically Signed: Smith Delaney MD, FACR at 11:05 EST , Service support [phone], 06/14/15 1105 Date cc: More Taylor MD; [...] FACR at 11:05 EST , Service support [phone], RAD/Thoracic S pine 3 Views IMPRESSION: Thoracic spondylosis Electronically Signed: Smith Delaney MD, FACR at 11:05 EST , Service support [phone], CC: More Taylor MD; Shasha Barker MD Sales Representative Electric Service: Signed 13-Jun-2015 Thoracic Spine 3 Views Result: Comments: See Note; NOTES: [facility] Imaging Services [address] [place] [address] Verdana 4d Thoracic Spine 3 Views MR#: [id number] Acct: [id number] Name: TIN BLACKWOOD Rep #: [id number] : 1960 F 54 From: Smith Delaney MD PCP: Shasha Barker MD Status: REG CLI Study: Thoracic Spine 3 Views Date of Exam: 06/13/15 Exam# [id number] Ordering Dr: More Taylor MD STUDY: X-RAY [...] FACR at 11:05 EST , Service support [phone], RAD/Thoracic Spine 3 Views IMPRESSION: Thoracic spondylosis Electronic ally Signed: Smith Delaney MD, FACR at 11:05 EST , Service support [phone], CC: More Taylor MD; Shasha Barker MD Sales Representative Electric Service: Signed 08-Jun-2015 EKG (61959) Result: [MEASUREMENTS ANALYSIS] Date of Test: 06/08/2015 13:15:12; Heart Rate: 96; OK Interval: 130; QRS: 88; QT Interval: 340; Corrected QT Interval (QTc): 403; P Wave [place]: 48; QRS Wave [place]: 32; T Wave [place]: 36; Blood Pressure: 120/80 [ECG DIAGNOSTIC STATEMENTS] Date of Test: 06/08/2015 13:15:12; Summary: Sinus Rhythm WITHIN NORMAL LIMITS [MEASUREMENTS ANALYSIS] Date of Test: 06/08/2015 13:14:43; Heart Ra te: 97; OK Interval: 126; QRS: 88; QT Interval: 340; Corrected QT Interval (QTc): 404; P Wave De Witt: 51; QRS Wave [place]: 31; T Wave [place]: 40; Blood Pressure: 120/80 [ECG DIAGNOSTIC STATEMENTS] Date of Supriya t: 06/08/2015 13:14:43; Summary: Sinus Rhythm WITHIN NORMAL LIMITS 27-Feb-2015 Chest PA and Lateral Result: Comments: See Note; NOTES: [facility] Imaging Services [address] [place] [address] Verdana 4d Chest PA and Lateral MR#: [id number] Acct: [id number] Name: Hero BLACKWOOD Rep #: [id number] : 1960 F 54 From: Aguilar Joaquin MD PCP: Shasha Barker MD Status: REG CLI Study: Chest PA and Lateral Date of Exam: 02/27/15 Exam# [id number] Ordering Dr: Ophelia Boogie STUDY: X-RAY CHEST [...] Aguilar Joaquin MD at 13:45 EDT Tel [phone], Service support [phone], RAD/Chest PA and Lateral IMPRES TABBY: Persistent interstitial disease in keeping with known scarring. Improved aeration of both lungs with residual infiltrate in the peripheral aspect of the right lung. Electronically Signed: Darryl Joaquin MD at 13:45 EDT Tel [phone], Service support [phone], CC: Ophelia Boogie; Shasha Barker MD Sales Representative Electric Service: Signed 05-Feb-2015 Chest PA and Lateral Result: Comments: See Note; NOTES: [facility] Imaging Services [address] [place] [address] Radiology Report MR#: [id number] Acct: [id number] Name: TIN BLACKWOOD Rep #: [id number] : 1960 F 54 From: Vega Payan MD PCP: Shasha Barker MD Status: REG CLI Study: Chest PA and Lateral Date of Exam: 02/05/15 Exam# [id number] Ordering Dr: Ophelia Boogie STUDY: X-RAY C [...] Vega Payan MD at 17:03 EDT Tel [phone], Service support [phone], [phone] RAD/Chest PA and Lateral IMPRESSION: 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 Recommend followup till clear. Electronically Signed: Vega Payan MD a t 17:03 EDT Tel [phone], Service support [phone], CC: Ophelia Boogie; Shasha Barker MD Sales Representative Electric Service: Signed 06-Nov-2014 Operative Report Result: Comments: See Note; NOTES: [facility] Medical Records Department [address] [place] [address] Operative Report MR#: [id number] Acct: [id number] Name: TIN BLACKWOOD Rep #: [id number] : 1960 53 From: Allie Bales MD PCP: Shasha Barker MD Status: [facility] DATE OF SERVICE: 11/06/2014 DATE OF SERVICE: [...] time. Allie Bales MD T: GUILLAUME JOB: [id number] 11/06/14 1429 <Electronically signed by Allie Bales MD> Raul e Allie Bales MD CC: Allie Bales MD; Shasha Barker MD Date Dictated: 11/06/14 1231 Date Transcribed: 11/06/14 1231 Sales Representative Electric Service: Signed 06-Nov-2014 Discharge Instruction Result: Comments: See Note; NOTES: [facility] Medical Records Department [address] [place] [address] Instructions for Home/Discharge Instructions 11/06/14 1204 MR#: [id number] ct: [id number] Name: TIN BLACKWOOD Rep #: [id number] : 1960 53 From: Allie Bales MD PCP: Shasha Barker MD [place] [facility] [place] Diet: No Restrictions Discharge Activity: Return [...] Operative Report Result: Comments: See Note; NOTES: [facility] Medical Records Department [address] [place] [address] Operative Report 11/06/14 1202 MR#: [id number] Acct: [id number] Name: TIN BLACKWOOD Rep #: [id number] : 1960 53 From: Allie Bales MD PCP: Shasha Barker MD Status: [place] [facility] [place]: [place] [address] Operative Report (Blank) Date of Procedure: 11/06/14 [...] Transvaginal Non- Result: Comments: See Note; NOTES: [facility] Imaging Services [address] [place] [address] Ultrasound Report MR#: [id number] Acct: [id number] Name: TIN BLACKWOOD Rep #: [id number] : 1960 F 53 From: Aguilar Joaquin MD PCP: Shasha Barker MD Status: REG CLI Study: Transvaginal Non- Date of Exam: 07/24/14 Exam# [id number] Ordering Dr: Ophelia Boogie STUDY: ULTRASOUND OF [...] Aguilar Joaquin MD at 10:36 EDT Tel [phone], Service support [phone], CC: Ophelia Boogie; Shasha Barker MD Sales Representative Electric Service: Signed 24-Jul-2014 Pelvic (Non ) Result: Comments: See Note; NOTES: [facility] Imaging Services [address] [place] [address] Ultrasound Report MR#: [id number] Acct: [id number] Name: TIN BLACKWOOD Rep #: [id number] : 1960 F 53 From: Aguilar Joaquin MD PCP: Shasha Barker MD Status: REG CLI Study: Pelvic (Non ) Date of Exam: 07/24/14 Exam# [id number] Ordering Dr: Ophelia Boogie STUDY: ULTR ASOUND [...] Darryl Joaquin MD at 10:36 EDT Tel [phone], Service support [phone], CC: Ophelia Boogie; Shasha Barker MD Sales Representative Electric Service: Signed 05-Sep-2013 Cerv Spine 4 or 5 Views Result: Comments: See Note; NOTES: [facility] Imaging Services [address] [place] [address] Radiology Report MR#: [id number] Acct: [id number] Name: TIN BLACKWOOD Rep #: [id number] : 1960 F 52 From: Vazquez Kaye MD PCP: Shasha Barker MD Status: REG CLI Study: Cerv Spine 4 or 5 Views Date of Exam: 09/05/13 Exam# [id number] Ordering Dr: More Taylor MD STUDY: X-RAY [...] MD at 14:28 EDT , Service support [phone], RAD/Cerv Spine 4 or 5 Views IMPRESSION: Multilevel degenerative changes, 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 No significant interval change Electronically Signed: Glenn Kaye MD at 14:28 EDT , Service support [phone] , CC: More Taylor MD; Shasha Barker MD Sales Representative Electric Service: Signed 10-Feb-2013 Hand Min 3 Views Result: Comments: See Note; NOTES: [facility] Imaging Services [address] [place] [address] Radiology Report MR#: [id number] Acct: [id number] Name: TIN BLACKWOOD Rep #: [id number] : 1960 F 52 From: Julio Cannon MD PCP: Status: REG CLI Study: Hand Min 3 Views Date of Exam: 02/10/13 Exam# [id number] Ordering Dr: Shasha Barker MD STUDY: X-RAY [...] February 10, 2013 at 10:35:57 PM EDT [phone] Electronically Signed BP/BP If you are the refe rring physician and would like to consult with the radiologist who provided this interpretation, please contact Julio Cannon M.D. at [phone]. If this radiologist is unavailable, you will [...] of these documents. CC: Shasha Barker MD Sales Representative Electric Service: Signed 10-Feb-2013 Hand Min 3 Views Result: Comments: See Note; NOTES: [facility] Imaging Services [address] [place] [address] Radiology Report MR#: [id number] Acct: [id number] Name: TIN BLACKWOOD Rep #: [id number] : 1960 F 52 From: Julio Cannon MD PCP: Status: REG CLI Study: Hand Min 3 Views Date of Exam: 02/10/13 Exam# [id number] Ordering Dr: Shasha Barker MD STUDY: X-RAY [...] February 10, 2013 at 10:36:47 PM EDT [phone] Electronically Signed BP/BP If you are the referring physician and would like to consult with the radiologist who provided this interpretation, please contact Julio Cannon M.D. at [phone]. If this radiologist is unavaila alfonso, you will be directed to another radiologist to assist. If you are a patient with a question regarding this report, please contact your referring physician directly. Professional Interpretatio n Provided By: [employer], Phone , These documents contain legally protected [...] of these documents. 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 No Drug Use 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 Tobacco Use: Current every day smoker. 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 Non Smoker/No Tobacco Use Status: Inactive Tobacco use: Former smoker. Status: Inactive Smoking Status Name Dates Details Current every day smoker Vital Signs Date Test Result Details 88-Nme-495267:06 Temperature 97.4 f Comments: Method: Oral Pulse [...] 0.00 cm Results Date Description Value Details 47-Olq-897127:00 CCP ANTIBODY (30284) Comments: PATIENT NOT FASTINGPERFORMED BY: FUNGO STUDIOS [facility] [id number] BY: [employer] [id number] CCP Antibodies IgG/IgA 5 {units} (Normal) Range: 0-19 Comments: Negative <20 Weak positive 20 - 39 Moderate positive 40 - 59 Strong positive >59 56-Tjj-111636:00 C-Reactive Protein Comments: PATIENT NOT FASTINGPERFORMED BY: [employer]70 [address] [facility] HospitalCast[facility] BiosciencesAt[facility] [id number] BY: [employer] [id number] (22569) C-Reactive Protein, Quant 7.0 mg/L (Abnormal) Range: 0.0-4.9 88-Zcj-754029:00 RHEUMATOID FACTOR-QUANT Comments: PATIENT NOT FASTINGPERFORMED BY: [employer]GO STUDIOS [facility] [id number] BY: LabCoInspira Medical Center WoodburyDymsqnzekt7778 [facility] [id number] (63826) RA Latex Turbid. <10.0 {IU/mL} (Normal) Range: 0.0-13.9 04-Xbi-383177:00 CBC with auto diff Comments: PATIENT NOT FASTINGPERFORMED BY: [facility] Exqmkb1555 [address] RoadGood Hope Hospitalchidi [place] [id number] BY: LabCoCharles [place] 390077 [facility] [id number] (54441) Immature Grans (Abs) 0.0 {x10E3/uL} (Normal) Range: [...] 3.77-5.28 WBC 7.8 {x10E3/uL} (Normal) Range: 3.4-10.8 32-Jfi-585881:00 METABOLIC PANEL, Comments: PATIENT NOT FASTINGPERFORMED BY: Kicknote.comJefferson [facility])Btokld6968 [facility] [id number] BY: [employer] [id number] COMPREHENSIVE (49471) ALT (SGPT) 9 [iU]/L (Normal) Range: 0-32 [...] 6-24 Glucose 101 mg/dL (Abnormal) Range: 65-99 77-Wex-521405:00 HGB A1C (12816) Comments: PATIENT NOT FASTINGPERFORMED BY: Kicknote.comBr[place] 0317970 [facility] [id number] BY: [employer] [id number] Hemoglobin A1c 5.8 % (Abnormal) Range: 4.8-5.6 Comments: . Prediabetes: 5.7 - 6.4 Diabetes: >6.4 Glycemic control for adults with diabetes: <7.0 42-Spv-447583:00 TSH (51610) Comments: PATIENT NOT FASTINGPERFORMED BY: LabCoBr[place] 0317970 [facility] [id number] BY: LabJane V[place] 404877 [facility] [id number] TSH 0.865 {uIU/mL} (Normal) Range: 0.450-4.500 36-Apz-847121:00 T4, FREE (THYROXINE) Comments: PATIENT NOT FASTINGPERFORMED BY: LabCoJefferson [facility])Enkmtc1659 [facility] [id number] BY: LabCo[address] [id number] (00717) T4,Free(Direct) 1.14 ng/dL (Normal) Range: 0.82-1.77 62-Scq-58110:00 Tissue Biopsy See Note (Normal) Comments: [facility] [address], [address] Comments: Patient: TIN BLACKWOOD : 1960 (57/F) Acct Num: [id number] Phys: Jose L Torres DDS Unit Num: [id number] Loc: LABSPEC Specimen: [id number] Received: 02/19/18 - 1513 Spec Typ e: [...] time of embedding. / Mahendra TC:5 CPT: 02941 HEADER OPERATION: Biopsy cheek/lip PRE-OP DIAGNOSIS: Probable fibroma TISSUE SUBMITTED: Biopsy cheek/lip MICROSCOPIC DESCRIPTION Slides are reviewed. MICROSCOPIC DI AGNOSIS Cheek/lip, biopsy: Squamous mucosa with subepithelial fibrosis, consistent with irritation fibroma. JANES:tammy 02/22/18 Signed Jarrod Holland 02/22/18 <signature on file> 1-Gwd-542318:19 HgA1C , Office (24916) HgA1C , Office 6.1 % (Normal) Range: 4.6 - 7.1 0-Aog-882754:19 Blood Glucose , Office (28254) Blood Glucose , Office 153 (Normal) 6-Jil-204891:19 Urinalysis, Office (35452) UA - LEUKOCYTE ESTERASE Negative (Normal) UA - NITRITE Negative (Normal) URINE UROBILINGN SRAVANI TIMED Normal mg/dL (Normal) UA - PROTEIN Negative mg/dL (Normal) UA - PH 7 (Normal) UA - BLOOD Negative (Normal) UA - SPECIFIC GRAVITY 1.010 (Normal) UA - KETONES Negative mg/dL (Normal) UA - BILIRUBIN Negative (Normal) UA - GLUCOSE Negative (Normal) 0-Ixe-429527:42 CBC-Complete Blood Cnt No Diff Comments: [facility] [address] [place], [address] MPV 9.7 fL (Normal) Range: [...] 4.2-5.4 WBC 8.0 K/mm3 (Normal) Range: 4.4-11.0 2-Zvf-831527:42 Differential Comment Comments: [facility] [address] [place], [address] SMEAR COMMENT SCANNED (Normal) Comments: 1+ ANISOCYTOSIS 9-Ptg-826616:42 Liver Profile Comments: Comments: [facility] [address] [place], [address] D BILI 0.14 mg/dL (Normal) Range: 0.00-0.30 T BILI 0.60 mg/dL (Normal) Range: 0.20-1.00 ALT 49 U/L (Normal) Range: 13-56 ALK P 46 U/L (Normal) Range: 45-117 AST 25 U/L (Normal) Range: 15-37 GLOB 3.4 g/dL (Normal) Range: 2.2-4.2 ALB 3.6 g/dL (Normal) Range: 3.2-5.0 T PROT 7.0 g/dL (Normal) Range: 6.4-8.2 52-Fkm-757547:21 CBC-Complete Blood Cnt No Diff Comments: [facility] [address] [place], [address] MPV 10.2 fL (Normal) Range: [...] 4.2-5.4 WBC 8.0 K/mm3 (Normal) Range: 4.4-11.0 75-Ruu-033743:21 Liver Profile Comments: [facility] [address] [place], [place], [address] D BILI 0.14 mg/dL (Normal) Range: 0.00-0.30 T BILI 0.80 mg/dL (Normal) Range: 0.20-1.00 ALT 50 U/L (Normal) Range: 13-56 ALK P 42 U/L (Abnormal) Range: 45-117 AST 30 U/L (Normal) Range: 15-37 GLOB 3.6 g/dL (Normal) Range: 2.2-4.2 ALB 4.0 g/dL (Normal) Range: 3.2-5.0 T PROT 7.6 g/dL (Normal) Range: 6.4-8.2 :48 HEPATIC FUNCTION PANEL Comments: PATIENT NOT FASTINGPERFORMED BY: USERJOY TechnologyUp Health System6370 [facility] [id number] (91606) ALT (SGPT) 45 [iU]/L (Abnormal) Range: 0-32 AST (SGOT) 33 [iU]/L (Normal) Range: 0-40 Alkaline Phosphatase 39 [iU]/L (Normal) Range: 39-117 Bilirubin, Direct 0.08 mg/dL (Normal) Range: 0.00-0.40 Bilirubin, Total 0.3 mg/dL (Normal) Range: 0.0-1.2 Protein, Total 6.8 g/dL (Normal) Range: 6.0-8.5 :48 T3, FREE (TRIDOTHYRONINE) (53705) Comments: PATIENT NOT FASTINGPERFORMED BY: USERJOY TechnologyUp [facility] System6370 [facility] [id number] Triiodothyronine (T3), Free 2.6 pg/mL (Normal) Range: 2.0-4.4 :48 T4, FREE (THYROXINE) (24380) Comments: PATIENT NOT FASTINGPERFORMED BY: [place] 8490170 [facility] [id number] T4,Free(Direct) 0.90 ng/dL (Normal) Range: 0.82-1.77 :48 TSH (91401) Comments: PATIENT NOT FASTINGPERFORMED BY: [place] 8490170 [facility] [id number] TSH 0.333 {uIU/mL} (Abnormal) Range: 0.450-4.500 :48 Renal function Panel (69908) Comments: PATIENT NOT FASTINGPERFORMED BY: NILE [facility] Yxypyw6428 [facility] [id number] Albumin 4.6 g/dL (Normal) Range: 3.5-5.5 Phosphorus [...] 6-24 Glucose 118 mg/dL (Abnormal) Range: 65-99 65-Blw-311498:54 CBC-Complete Blood Cnt No Diff Comments: [facility] [address] [place], [place], [id number] MPV 10.3 fL (Normal) Range: 6.2-12.0 PLT [...] 4.2-5.4 WBC 7.3 K/mm3 (Normal) Range: 4.4-11.0 80-Tzw-782648:54 Liver Profile Comments: [facility] [address] [place], [place], [address] D BILI 0.09 mg/dL (Normal) Range: 0.00-0.30 T BILI 0.40 mg/dL (Normal) Range: 0.20-1.00 ALT 49 U/L (Normal) Range: 13-56 ALK P 58 U/L (Normal) Range: 45-117 AST 22 U/L (Normal) Range: 15-37 GLOB 3.4 g/dL (Normal) Range: 2.2-4.2 ALB 3.9 g/dL (Normal) Range: 3.2-5.0 T PROT 7.3 g/dL (Normal) Range: 6.4-8.2 69-Wxh-402188:13 Liver Profile Comments: [facility] [address] [place], [place], [address] D BILI 0.07 mg/dL (Normal) Range: 0.00-0.30 T BILI 0.40 mg/dL (Normal) Range: 0.20-1.00 ALT 49 U/L (Normal) Range: 13-56 Comments: Please note revised ALT reference range qpyidgdtm61/28/2018. ALK P 53 U/L (Normal) Range: 45-117 AST 22 U/L (Normal) Range: 15-37 GLOB 3.3 g/dL (Normal) Range: 2.2-4.2 ALB 4.0 g/dL (Normal) Range: 3.2-5.0 T PROT 7.3 g/dL (Normal) Range: 6.4-8.2 4-Qil-824642:59 CBC-Complete Blood Cnt No Diff Comments: [facility] [address] [place], [place], [address] MPV 10.4 fL (Normal) Range: 6.2-12.0 PLT [...] 4.2-5.4 WBC 9.1 K/mm3 (Normal) Range: 4.4-11.0 6-Esb-552519:59 Erythrocyte Sed Rate Comments: [facility] [address] [facility] [address] [place], [place], [id number] SED RATE 15 mm/h (Normal) Range: 0-30 01-Ada-882622:22 CBC-Complete Blood Cnt No Diff Comments: [facility] [address] [place], [place], [address] MPV 10.4 fL (Normal) Range: 6.2-12.0 PLT [...] 4.2-5.4 WBC 7.6 K/mm3 (Normal) Range: 4.4-11.0 73-Fdj-476359:22 Liver Profile Comments: Comments: [facility] [address] [place], [place], [address] D BILI 0.12 mg/dL (Normal) Range: 0.00-0.30 T BILI 0.60 mg/dL (Normal) Range: 0.20-1.00 ALT 38 U/L (Normal) Range: 13-56 Comments: Please note revised ALT reference range ungckbxok42/28/2018. ALK P 53 U/L (Normal) Range: 45-117 AST 31 U/L (Normal) Range: 15-37 GLOB 3.2 g/dL (Normal) Range: 2.2-4.2 ALB 3.7 g/dL (Normal) Range: 3.2-5.0 T PROT 6.9 g/dL (Normal) Range: 6.4-8.2 52-Fgk-359824:33 CBC-Complete Blood Cnt No Diff Comments: [facility] [address] [place], [place], [address] MPV 10.7 fL (Normal) Range: 6.2-12.0 PLT [...] 4.2-5.4 WBC 11.5 K/mm3 (Abnormal) Range: 4.4-11.0 55-Opv-002586:33 Liver Profile Comments: [facility] X[address]hmec7468 [facility] [address] [place], [place], [address] D BILI 0.09 mg/dL (Normal) Range: 0.00-0.30 T BILI 0.60 mg/dL (Normal) Range: 0.20-1.00 ALT 33 U/L (Normal) Range: 13-56 Comments: Please note revised ALT reference range brnldbyyy02/28/2018. ALK P 59 U/L (Normal) Range: 45-117 AST 15 U/L (Normal) Range: 15-37 GLOB 3.7 g/dL (Normal) Range: 2.2-4.2 ALB 3.8 g/dL (Normal) Range: 3.2-5.0 T PROT 7.5 g/dL (Normal) Range: 6.4-8.2 28-Auf-788274:29 CBC-Complete Blood Cnt No Diff Comments: [facility] [address] [facility]. [place], [place], [address] MPV 11.1 fL (Normal) Range: 6.2-12.0 PLT [...] 4.2-5.4 WBC 9.5 K/mm3 (Normal) Range: 4.4-11.0 91-Obt-206069:29 Liver Profile Comments: [facility] [address] [facility]. [place], [place], [address] D BILI 0.10 mg/dL (Normal) Range: 0.00-0.30 T BILI 0.40 mg/dL (Normal) Range: 0.20-1.00 ALT 29 U/L (Normal) Range: 12-78 ALK P 51 U/L (Normal) Range: 45-117 AST 12 U/L (Abnormal) Range: 15-37 GLOB 3.6 g/dL (Normal) Range: 2.2-4.2 ALB 3.9 g/dL (Normal) Range: 3.4-5.0 Comments: Please note revised Albumin AND Globulin reference rangeeffective 2017. T PROT 7.5 g/dL (Normal) Range: 6.4-8.2 4-Kfr-036915:34 Gram Stain w/Sputum Cult Comments: PATIENT NOT FASTINGPERFORMED BY: LabCoUNM Cancer CenterLflesr6304 [facility] [id number] Information: SRC:SP Rflx Gram Stain Evaluation GSACC (Normal) Comments: This specimen is of good quality and is acceptable for routinebacterial culture. Result 1 GNRF (Normal) Comments: Few gram negative rods.Few gram positive cocciRare gram negative coccobacilli Epithelial Cells Few (Normal) White Blood Cells None seen (Normal) 0-Kbk-169469:34 Sputum Culture Comments: PATIENT NOT FASTINGPERFORMED BY: [facility]6370 [facility] [id number] Result 1 RRF (Normal) Comments: Routine respiratory roxanne Lower Respiratory Culture Final report (Normal) 2-Shm-610665:12 TSH (96465) Comments: PATIENT NOT FASTINGPERFORMED BY: [facility]6370 [facility] [id number] TSH 0.434 {uIU/mL} (Abnormal) Range: 0.450-4.500 6-Mlx-425470:12 T3, FREE (TRIDOTHYRONINE) (47725) Comments: PATIENT NOT FASTINGPERFORMED BY: [facility]6370 [facility] [id number] Triiodothyronine,Free,Serum 3.0 pg/mL (Normal) Range: 2.0-4.4 8-Yui-729165:12 T4, FREE (THYROXINE) (91070) Comments: PATIENT NOT FASTINGPERFORMED BY: [facility]6370 [facility] [id number]; review 05/15 T4,Free(Direct) 1.22 ng/dL (Normal) Range: 0.82-1.77 52-Feg-063483:14 CBC-Complete Blood Cnt No Diff Comments: [facility] [address] [place], [address] MPV 10.8 fL (Normal) Range: 6.2-12.0 PLT [...] 4.2-5.4 WBC 7.7 K/mm3 (Normal) Range: 4.4-11.0 [id number] Liver Profile Comments: [facility] [id number] [place], [place], [id number] D BILI 0.11 mg/dL (Normal) Range: 0.00-0.30 T BILI 0.60 mg/dL (Normal) Range: 0.20-1.00 ALT 31 U/L (Normal) Range: 12-78 ALK P 51 U/L (Normal) Range: 45-117 AST 22 U/L (Normal) Range: 15-37 GLOB 3.3 g/dL (Normal) Range: 2.2-4.2 ALB 3.7 g/dL (Normal) Range: 3.4-5.0 Comments: Please note revised Albumin AND Globulin reference rangeeffective 2017. T PROT 7.0 g/dL (Normal) Range: 6.4-8.2 8-Abp-061532:36 CBC-Complete Blood Cnt No Diff Comments: BONEZZI ORDERED TSH,FT4,FT3,AND TPOSTANDING ORDER FROM SIBILIA CBC AND LIVER.[facility] [address] [place], [place], [address] MPV 10.7 fL (Normal) Range: 6.2-12.0 PLT [...] (Normal) Range: 4.4-11.0 :36 Free T3 Comments: [facility] [address], [address] FREE T3 2.6 pg/mL (Normal) Range: 2.18-3.98 8-Oaq-865877:36 Liver Profile Comments: [address], [address] D BILI 0.07 mg/dL (Normal) [...] Range: 6.4-8.2 :36 T4 Free Direct Comments: [facility] [address] [place], [address] T4 FREE DIRECT 0.84 ng/dL (Normal) Range: 0.76-1.46 5-Vnx-782363:36 Thyroid Peroxidase AB Comments: [facility] (refer to report for specific site)refer to report for address and phone number TPO AB [phone] 11 {IU/mL} (Normal) Range: 0-34 Comments: Performed at: [address] [id number] Director: Jose L Patel PhD, Phone: [phone] 4-Fqs-028451:36 Thyroid Stim Hormone (TSH) Comments: [facility] [address] [place], [address] TSH 0.36 {uIU/mL} (Normal) Range: 0.358-3.74 57-Vrl-336431:03 CBC-Complete Blood Cnt No Diff Comments: [facility] [address] [place], [address] MPV 10.4 fL (Normal) Range: 6.2-12.0 [...] 4.2-5.4 WBC 9.2 K/mm3 (Normal) Range: 4.4-11.0 22-Oeg-469532:03 Liver Profile Comments: [facility] [address] [place], [address] D BILI 0.11 mg/dL (Normal) Range: 0.00-0.30 T BILI 0.40 mg/dL (Normal) Range: 0.20-1.00 ALT 30 U/L (Normal) Range: 12-78 ALK P 52 U/L (Normal) Range: 45-117 AST 14 U/L (Abnormal) Range: 15-37 GLOB 3.4 g/dL (Normal) Range: 2.2-4.2 ALB 4.1 g/dL (Normal) Range: 3.4-5.0 Comments: Please note revised Albumin AND Globulin reference rangeeffective 2017. T PROT 7.5 g/dL (Normal) Range: 6.4-8.2 78-Lpe-464259:28 CBC-Complete Blood Cnt No Diff Comments: [facility] [address] [place], [address] MPV 11.1 fL (Normal) Range: 6.2-12.0 [...] 4.2-5.4 WBC 8.7 K/mm3 (Normal) Range: 4.4-11.0 09-Geh-025719:28 Liver Profile Comments: [facility] [address] [place], [address] D BILI 0.13 mg/dL (Normal) [...] T PROT 6.9 g/dL (Normal) Range: 6.4-8.2 16-Txr-138731:57 CBC-Complete Blood Cnt No Diff Comments: [facility] [address] [place], [address] MPV 10.9 fL (Normal) Range: [...] 4.2-5.4 WBC 7.8 K/mm3 (Normal) Range: 4.4-11.0 9-Xmy-580349:07 CBC-Complete Blood Cnt No Diff Comments: [facility] Exapzsfclt7994 [facility]. [place], [place], [address] MPV 11.2 fL (Normal) Range: 6.2-12.0 PLT [...] 4.2-5.4 WBC 9.1 K/mm3 (Normal) Range: 4.4-11.0 4-Xxm-352015:07 Liver Profile Comments: [facility] Fgawkjfbyf5199 [facility]. [place], [place], [address] D BILI 0.09 mg/dL (Normal) Range: 0.00-0.30 T BILI 0.20 mg/dL (Normal) Range: 0.20-1.00 ALT 34 U/L (Normal) Range: 12-78 ALK P 55 U/L (Normal) Range: 45-117 AST 15 U/L (Normal) Range: 15-37 GLOB 3.3 g/dL (Normal) Range: 2.3-3.5 ALB 3.5 g/dL (Normal) Range: 3.4-5.0 T PROT 6.8 g/dL (Normal) Range: 6.4-8.2 61-Mvb-551849:40 URINE ALISSON CULTURE-IDENTIFICATN Comments: PERFORMED BY: N[facility] Ikcnhh20[address] [place] [id number] Information: SRC:UR (81544) Antimicrobial MIHEAD (Normal) Comments: S = Susceptible; [...] mL (Abnormal) Urine Final report Culture,Comprehensive (Abnormal) 43-Xkl-033120:47 Urinalysis, Office (26580) UA - LEUKOCYTE ESTERASE Small (Normal) UA - NITRITE Negative (Normal) URINE UROBILINGN SRAVANI TIMED Normal mg/dL (Normal) UA - PROTEIN Negative mg/dL (Normal) UA - PH 6 (Abnormal) UA - BLOOD Negative (Normal) UA - SPECIFIC GRAVITY 1.005 (Normal) UA - KETONES Negative mg/dL (Normal) UA - BILIRUBIN Negative (Normal) UA - GLUCOSE Negative (Normal) 22-Uil-878269:58 Basic Metabolic Profile (BMP) Comments: 'TROP' Serial specimen #1, #2, #3, or #4: 1[facility] [address] [place], [place], [address] GAP 10 (Normal) Range: 5-15 CO2 25.0 [...] 7-18 GLU 92 mg/dL (Normal) Range: 70-110 63-Mvr-706153:58 CBC W/Diff, Automated Comments: [facility] [address]src[address] [place], [place], [address] Absolute Lymph 1.13 {X10_3/ul} (Normal) Range: 0.83-4.51 [...] Serial specimen #1, #2, #3, or #4: [address] [place] [address] [address] [place], [place], [address] TROPONIN-I 0.11 ng/mL (Abnormal) Comments: TROPONIN-I EXPECTED VALUES <0.05 NEGATIVE 0.06 - 0.59 AT RISK OF IN > OR = 0.60 SUGGEST IN :56 CBC W/Diff, Automated Comments: [facility] Dsrvyofwbr8187 [facility] [address] [place], [place], [address] Absolute Lymph 1.30 {X10_3/ul} (Normal) Range: 0.83-4.51 [...] Range: 4.4-11.0 :56 Comprehensive Metabolic Profil Comments: [facility] [address]df[address] [place], [place], [address] GAP 8 (Normal) Range: 5-15 CO2 29.0 [...] <126 mg/dLsuggests IMPAIRED HOMEOSTASIS per A.D.A. criteria. 50-Yxh-536090:39 CBC W/Diff, Automated Comments: [facility] [address] [place], [address] Absolute Lymph 1.40 {X10_3/ul} (Normal) [...] 4.2-5.4 WBC 8.8 K/mm3 (Normal) Range: 4.4-11.0 23-Jux-774409:39 Comprehensive Metabolic Profil Comments: [facility] [address] [place], [place], [address] GAP 7 (Normal) Range: 5-15 CO2 30.0 [...] 126 mg/dLsuggests DIABETES MELLITUS per A.D.A. criteria. 76-Lyp-571911:43 Homocysteine, Plasma (71059) Comments: PATIENT NOT FASTINGPERFORMED BY: [facility]Uwixaf5482 [facility] [id number] Homocyst(e)ine, Plasma 9.3 umol/L (Normal) Range: 0.0-15.0 05-Ivx-139173:12 CRP, High Sensitivity Cardiac Comments: [facility] [address] [place], [place], [address] CRP HIGH SENS 1.10 mg/L (Normal) Comments: Low Relative Risk of CVD <1.0 mg/L Average Relative Risk of CVD 1.0 - 3.0 mg/L High Relative Risk of CVD >3.0 mg/L 61-Ocg-190803:12 Erythrocyte Sed Rate Comments: [facility] [address]uuw[address] [place], [address] SED RATE 24 mm/h (Normal) Range: 0-30 3-Cop-754645:28 CBC WITH MANUAL DIFF (54489) Comments: PATIENT NOT FASTINGPERFORMED BY: N[facility] Aerbgh8785 [facility] [id number] Immature Grans (Abs) 0.0 {x10E3/uL} (Normal) Range: [...] 3.77-5.28 WBC 7.3 {x10E3/uL} (Normal) Range: 3.4-10.8 2-Ozz-867848:28 Metabolic Panel, Basic Comments: PATIENT NOT FASTINGPERFORMED BY: [facility]UN[facility] CenterAfowcl1592 [facility] [id number]; will review at 09/04 appt (42294) Calcium, Serum 9.4 mg/dL (Normal) Range: 8.7-10.2 [...] Glucose, Serum 107 mg/dL (Abnormal) Range: 65-99 03-Znj-885937:31 CBC With Differential/Platelet Comments: PATIENT NOT FASTINGPERFORMED BY: [facility]Ffuxhk5068 [facility] [id number] Immature Grans (Abs) 0.0 {x10E3/uL} Range: 0.0-0.1 [...] ANGELA (Normal) Comments: PATIENT NOT FASTINGPERFORMED BY: [email or web address] Mcjdir1592 [facility] [id number] 13:31 Comments: WRITTEN AUTHORIZATION RECEIVED.AUTHORIZATION RECEIVED FROM JACKIE BRUNO LPN 25-68-0405VSRQHN BY RADHA EMMANUEL 88-Suh-525034:31 CBC (Auto) (60999) Comments: PATIENT NOT FASTINGPERFORMED BY: [employer] Oxejrw7506 [facility] [id number] Platelets 416 {x10E3/uL} (Abnormal) Range: 150-379 RDW 17.2 % (Abnormal) Range: 12.3-15.4 MCHC 32.4 g/dL (Normal) Range: 31.5-35.7 MCH 27.0 pg (Normal) Range: 26.6-33.0 MCV 83 fL (Normal) Range: 79-97 Hematocrit 36.7 % (Normal) Range: 34.0-46.6 Hemoglobin 11.9 g/dL (Normal) Range: 11.1-15.9 RBC 4.40 {x10E6/uL} (Normal) Range: 3.77-5.28 WBC 12.7 {x10E3/uL} (Abnormal) Range: 3.4-10.8 71-Mcb-642466:31 Magnesium (25322) Comments: PATIENT NOT FASTINGPERFORMED BY: [email or web address] Xuivwp8232 [facility] [id number] Magnesium, Serum 2.0 mg/dL (Normal) Range: 1.6-2.3 49-Lfh-605349:31 Renal function Panel (52587) Comments: PATIENT NOT FASTINGPERFORMED BY: [email or web address] Yohlwq9970 [facility] [id number] Albumin, Serum 4.1 g/dL (Normal) Range: 3.5-5.5 [...] Glucose, Serum 99 mg/dL (Normal) Range: 65-99 3-Ksd-174257:16 Lactic Acid Comments: [facility] Gfnmnwbayn8215 [facility]. [place], [place], [address] LACTIC ACID 1.2 mmol/L (Normal) Range: 0.4-2.0 :52 BNP,B-Type NATRIURETIC PEPTIDE Comments: [facility] Onlxzethvx8894 [facility]. [place], [place], [address] B-TYPE BRENT PEP 89.7 pg/mL (Normal) Range: 0-100 :52 CBC W/Diff, Automated Comments: [facility] [address] [place], [place], [address] Absolute Lymph 1.12 {X10_3/ul} (Normal) Range: 0.83-4.51 [...] Serial specimen #1, #2, #3, or #4: [address] [place] [address] [address] [place], [address] GAP 5 (Normal) Range: 5-15 CO2 24.0 [...] Serial specimen #1, #2, #3, or #4: [address] [address], [address] TROPONIN-I 0.73 ng/mL (Abnormal) Comments: TROPONIN-I EXPECTED VALUES <0.05 NEGATIVE 0.06 - 0.59 AT RISK OF IN > OR = 0.60 SUGGEST IN :43 Base Excess ISTAT Comments: [place] [address] [place] [address] BE ISTAT 1 mmol/L (Normal) :43 Bicarbonate ISTAT Comments: [place] [address] [place] [address] HCO3 ISTAT 26 mmol/L (Normal) Range: 22-26 Comments: Site = R RadialDevice = Vent MaskFIO2 = 40Results To = ED MDTime Given = 949 :43 Blood Gas Specimen Type Comments: [place] [address] [address] BLD GAS TYPE ART (Normal) :43 pCO2 - ISTAT 40.0 {mmHg} (Normal) Comments: [place] [address] [place] [address] Range: 35-45 :43 pH - I-STAT 7.42 (Normal) Comments: [place] [address] [place] [place] [address] Range: 7.35-7.45 :43 PO2 I-STAT 68 {mmHG} (Abnormal) Comments: [place] [address] [place] [address] Range: 75-100 :43 SO2 ISTAT 94 % (Abnormal) Comments: [place] [address] [place] [address] Range: 95-99 :43 Total Carbon Dioxide ISTAT Comments: [place] [address] [place] [address] TOTAL CO2 ISTAT 27 mmol/L (Normal) :06 CBC W/Diff, Automated Comments: [place] [address] [place], [address] Absolute Lymph 1.60 {X10_3/ul} (Normal) Range: [...] 4.2-5.4 WBC 6.3 K/mm3 (Normal) Range: 4.4-11.0 56-Vmk-796259:06 Comprehensive Metabolic Profil Comments: [facility] [address]xv[address] [place], [place], [address] GAP 5 (Normal) Range: 5-15 CO2 30.0 [...] 7-18 GLU 102 mg/dL (Normal) Range: 70-110 38-Ptq-583980:30 PAP I-G w/rfx hrHPV Comments: CYTOLOGY INFORMATION:- CLINICAL INFORMATION:- DATE LMP/MENOPAUSE: MENOPAUSE- COLLECTION VIAL: Thin Prep Vial- CAR SHAGGER SOURCE: CERVICAL/ENDOCERVICAL- COLLECTION TECHNIQUE: BRUSH/SPATULACYTOLOGY INFORMATION :- CLINICAL INFORMATION:- DATE LMP/MENOPAUSE: MENOPAUSE- COLLECTION VIAL: Thin Prep Vial- CAR SHAGGER SOURCE: CERVICAL/ENDOCERVICAL- COLLECTION TECHNIQUE: BRUSH/SPATULASpecimen Comment: [id number] saira Comment: No. of containers..01 CYTYC Thin Prep [facility]ialLabCorp (refer to report for specific site)refer to report for address and phone number HPV RFLX Comment (Normal) Comments: The HPV DNA reflex criteria were not met with this specimenresult therefore, no HPV testing was performed.Performed at: [address] [id number] Director: Selene Munoz MD, Phone: [phone] PAPSMR Comment (Normal) Comments: The Pap smear [...] system. PERFORM Comment (Normal) Comments: Dioni Pereira, Carton Forming Machine Helper (ASCP) ADEQ Comment (Normal) Comments: Satisfactory for evaluation. Endocervical and/or squamous metaplasticcells (endocervical component) are present. DIAGN Comment (Normal) Comments: NEGATIVE FOR INTRAEPITHELIAL LESION AND MALIGNANCY. 53-Qqu-243505:09 CBC W/Diff, Automated Comments: [facility] [address] [place], [place], [address] Absolute Lymph 1.61 {X10_3/ul} (Normal) Range: 0.83-4.51 [...] 4.2-5.4 WBC 7.3 K/mm3 (Normal) Range: 4.4-11.0 94-Lyt-337008:09 Comprehensive Metabolic Profil Comments: [facility] [address]coj[address] [place], [address] GAP 8 (Normal) Range: 5-15 CO2 30.0 [...] 7-18 GLU 90 mg/dL (Normal) Range: 70-110 64-Viq-497990:09 Lipid Profile Comments: [facility] [address] [place], [place], [address] VLDL 11 mg/dL (Normal) Range: 5-40 LDL [...] 200-240 mg/dL Borderline >240 mg/dL High Risk 26-Zuc-546527:56 Ferritin (98542) Comments: PATIENT NOT FASTINGPERFORMED BY: [facility] Sltwsu35[address] [place] [id number] Information: NURSE DRAW Ferritin, Serum 35 ng/mL (Normal) Range: 15-150 14-Emu-765382:06 Lipid Profile Comments: [facility] [address]em[address]smdf[address] [place], [place], [address] VLDL 14 mg/dL (Normal) Range: 5-40 LDL [...] 200-240 mg/dL Borderline >240 mg/dL High Risk 29-Ppm-402021:11 CBC W/Diff, Automated Comments: [facility] [address]bibz[address] [place], [place], [address] Absolute Lymph 1.06 {X10_3/ul} (Normal) Range: 0.83-4.51 [...] 4.2-5.4 WBC 9.4 K/mm3 (Normal) Range: 4.4-11.0 94-Vzg-715533:11 Comprehensive Metabolic Profil Comments: [facility] [address]vjnc[address] [place], [place], [address] GAP 9 (Normal) Range: 5-15 CO2 29.0 [...] 7-18 GLU 100 mg/dL (Normal) Range: 70-110 65-Dyk-692747:59 CBC W/Diff, Automated Comments: [facility] [address] [place], [address] Absolute Lymph 1.33 {X10_3/ul} (Normal) Range: 0.83-4.51 [...] 4.2-5.4 WBC 3.7 K/mm3 (Abnormal) Range: 4.4-11.0 50-Zbn-734306:59 Comprehensive Metabolic Profil Comments: [facility] [address] [place], [address] GAP 7 (Normal) Range: 5-15 [...] 7-18 GLU 84 mg/dL (Normal) Range: 70-110 8-Zkq-144762:15 CBC W/Diff, Automated Comments: [facility] [address]trrktfo[address], [address] Absolute Lymph 0.51 {X10_3/ul} (Abnormal) [...] 4.2-5.4 WBC 9.8 K/mm3 (Normal) Range: 4.4-11.0 2-Igj-899174:15 Comprehensive Metabolic Profil Comments: [facility] [address]kxvic[address] [place], [place], [address] GAP 3 (Abnormal) Range: 5-15 CO2 28.0 [...] 7-18 GLU 107 mg/dL (Normal) Range: 70-110 4-Ufk-917715:15 Quantiferon TB-Gold Comments: [facility] (refer to report for specific site)refer to [...] go to cdc.gov/tb for further details.Performed at: [address] [id number] Director: Jose L Patel PhD, Phone: [phone] QFT AG - NIL 0 {IU/mL} (Normal) [...] of cells for the productionof interferon gamma. 9-Sae-024735:43 CBC W/Diff, Automated Comments: [facility] [address] [place], [place], [address] Absolute Lymph 0.86 {X10_3/ul} (Normal) Range: 0.83-4.51 [...] 4.2-5.4 WBC 6.3 K/mm3 (Normal) Range: 4.4-11.0 8-Vfj-794708:43 Comprehensive Metabolic Profil Comments: [facility] [address]mnpgxno60[address] [place], [place], [address] GAP 9 (Normal) Range: 5-15 CO2 29.0 [...] <126 mg/dLsuggests IMPAIRED HOMEOSTASIS per A.D.A. criteria. 33-Cud-200193:00 CORTISOL SERUM Comments: [facility] [address]nmr[address] [place], [place], [address] CORTISOL 11.80 ug/dL (Normal) Range: 3.09-22.40 Comments: Adult (AM) 4.30 - 22.40 ug/dL Adult (PM) 3.09 - 16.66 ug/dL 95-Hvx-542122:00 DHEA Sulfate Comments: Has Patient had Radioactive Injection for X-ray?: [facility] (refer to report for specific site)refer to report for address and phone number DHEA SULF 4020 35.6 ug/dL (Abnormal) Range: 41.2-243.7 Comments: Performed at: [address] [id number] Director: Jose L Patel PhD, Phone: [phone] 98-Cpt-975355:00 Estradiol Comments: [facility] [address] [place], [address] ESTRADIOL 11.4 pg/mL (Normal) Comments: [...] SHOULD BE USED TO DETERMINE ESTRADIOL CONCENTRATION. 73-Rcq-684476:00 Free T3 Comments: [facility] [address], [address] FREE T3 3.1 pg/mL (Normal) Range: 2.18-3.98 36-Wnq-684546:00 Hemoglobin A1c Comments: [facility] [address]demrb[address] [place], [address] HGB A1C 6.1 % (Normal) Range: 4.2-6.3 31-Fpv-738327:00 Progesterone Level Comments: [facility] [address]cwviys[address] [place], [address] Progesterone 2.17 ng/mL (Normal) Comments: Progesterone Reference Table: UNITS Female: Follicular 0.15 - 1.40 ng/mL Luteal 3.34 - 25.56 ng/mL Mid-luteal 4.44 - 28.03 ng/mL Postmenopausal 0.0 - 0.73 ng/mL : 1st Trimester 11.22 - 90.00 ng /mL 2nd Trimester 25.55 - 89.40 ng/mL 3rd Trimester 48.40 -422.50 ng/mL 74-Swd-837136:00 T4 Free Direct Comments: [facility] [address] [place], [address] T4 FREE DIRECT 0.80 ng/dL (Normal) Range: 0.76-1.46 77-Tej-946782:00 Testosterone, Serum Total Comments: [facility] [address]wnpp[address], [address] Testosterone 20 ng/dL (Normal) Range: 14-76 83-Cpw-138476:00 Thyroid Stim Hormone (TSH) Comments: [facility] [address] [place], [place], [address] TSH 0.46 {uIU/mL} (Normal) Range: 0.358-3.74 83-Yli-641534:30 PAP I-G w/rfx hrHPV Comments: CYTOLOGY INFORMATION:- CLINICAL INFORMATION:- DATE LMP/MENOPAUSE: MENOPAUSE- COLLECTION VIAL: Thin Prep Vial- CAR SHAGGER SOURCE: CERVICAL/ENDOCERVICAL- COLLECTION TECHNIQUE: BRUSH/SPATULASpecimen Comment: [place] -[id number] Comment: No. of containers..01 CYTYC Thin Prep VialLabCorp (refer to report for specific site)refer to report for address and phone number HPV RFLX Comment (Normal) Comments: The HPV DNA reflex criteria were not met with this specimenresult therefore, no HPV testing was performed.Performed at: [address] [place] [id number] Director: Selene Munoz MD, Phone: [phone] PAPSMR Comment (Normal) Comments: The Pap smear [...] system. PERFORM Comment (Normal) Comments: Luisa Washington, Carton Forming Machine Helper (ASCP) ADEQ Comment (Normal) Comments: Satisfactory for evaluation. No endocervical component is identified. DIAGN Comment (Normal) Comments: NEGATIVE FOR INTRAEPITHELIAL LESION AND MALIGNANCY. :26 D-Dimer Quantitative (DVT/PE) Comments: [facility] [address] [place], [address] D-DIMER QUANT 0.30 {FEU/ug/m} (Normal) Range: 0.27-0.49 Comments: NORMAL D-Dimer level (<0.50) indicates no DVT or PE. :25 CK-MB Quantitative and Index Comments: 'TROP' Serial specimen #1, #2, #3, or #4: INT'CKMB' Serial Specimen #1, #2 or #3? [address] [place] [address] [place], [address] CKRI 1.3 % (Normal) Range: 0.0-1.4 Comments: RELATIVE INDEX >1.5% IS PRESUMPTIVELY POSITIVE CPKMB 2.2 ng/mL (Normal) Range: 0.0-5.0 Comments: CK-MB and RI Interpretation MB Relative Index Non-AMI <or= 5 NA Indeterminate > 5 <or= 4 AMI > 5 > 4 CPK TOTAL 170 U/L (Normal) Range: 26-192 :25 Troponin I (04552) Comments: 'TROP' Serial specimen #1, #2, #3, or #4: INT'CKMB' Serial Specimen #1, #2 or #3? [address] [place] [address] [place], [address] TROPONIN-I < 0.02 ng/mL (Normal) Comments: TROPONIN-I EXPECTED VALUES <0.05 NEGATIVE 0.06 - 0.59 AT RISK OF IN > OR = 0.60 SUGGEST IN 3-Nrz-415707:13 Urinalysis, Office (49179) UA - LEUKOCYTE ESTERASE Negative (Normal) UA - NITRITE Negative (Normal) URINE UROBILINGN SRAVANI TIMED Normal mg/dL (Normal) UA - PROTEIN Negative mg/dL (Normal) UA - PH 6 (Abnormal) UA - BLOOD Negative (Normal) UA - SPECIFIC GRAVITY 1.020 (Normal) UA - KETONES Negative mg/dL (Normal) UA - BILIRUBIN Negative (Normal) UA - GLUCOSE Negative (Normal) 61-Dcc-915389:41 CBC W/Diff, Automated Comments: [facility] [address] [place], [place], [address] Absolute Lymph 1.18 {X10_3/ul} (Normal) Range: 0.83-4.51 [...] 4.2-5.4 WBC 8.8 K/mm3 (Normal) Range: 4.4-11.0 83-Dub-277313:41 Comprehensive Metabolic Profil Comments: [facility] [address]ml[address] [place], [place], [address] GAP 9 (Normal) Range: 5-15 CO2 27.0 [...] 7-18 GLU 98 mg/dL (Normal) Range: 70-110 8-Kup-403537:41 CBC W/Diff, Automated Comments: [facility] [address]odqh[address] [place], [place], [address] Absolute Lymph 1.54 {X10_3/ul} (Normal) Range: 0.83-4.51 [...] 4.2-5.4 WBC 6.6 K/mm3 (Normal) Range: 4.4-11.0 7-Hyy-531067:41 Comprehensive Metabolic Profil Comments: [facility] [address] [place], [place], [address] GAP 7 (Normal) Range: 5-15 CO2 30.0 [...] 7-18 GLU 102 mg/dL (Normal) Range: 70-110 79-Rtl-257753:44 CBC W/Diff, Automated Comments: [facility] [address]wwoo[address] [place], [place], [address] Absolute Lymph 3.85 {X10_3/ul} (Normal) Range: 0.83-4.51 [...] 4.2-5.4 WBC 10.7 K/mm3 (Normal) Range: 4.4-11.0 27-Vys-892818:44 Comprehensive Metabolic Profil Comments: ORDERED LIPID,CMPDR.LIOR ORDERED CMP,CBCDSt[facility] [address]lctyk[address] [place], [place], [address] GAP 8 (Normal) Range: 5-15 CO2 29.0 [...] 7-18 GLU 78 mg/dL (Normal) Range: 70-110 87-Vbg-516030:44 Lipid Profile Comments: ORDERED LIPID,CMPDRMERA ORDERED CMP,CBCDWooBarney [facility] [address]ixwcif8[address] [place], [place], [address] VLDL 33 mg/dL (Normal) Range: 5-40 LDL [...] 200-240 mg/dL Borderline >240 mg/dL High Risk 1-Uqn-469289:46 CBC W/Diff, Automated Comments: [facility] Zbjjetrypr1210 [facility] [address] [place], [place], [address] Absolute Lymph 1.65 {X10_3/ul} (Normal) Range: 0.83-4.51 [...] 4.2-5.4 WBC 12.5 K/mm3 (Abnormal) Range: 4.4-11.0 1-Puj-238081:46 Comprehensive Metabolic Profil Comments: [facility] [address]wa[address] [place], [place], [address] GAP 9 (Normal) Range: 5-15 CO2 31.0 [...] 126 mg/dLsuggests DIABETES MELLITUS per A.D.A. criteria. 6-Qdy-195198:46 Culture, Sputum Comments: [facility] [address] [place], [place], [id number] CUSP See Note (Normal) Comments: Gram StainAcceptable Specimen? Yes (<25 Epithelial cells per/lpf) Gram Stain Rare Gram positive rods 3+ Gram positive cocci 3+ White Blood Cells Rare Epithelial cells Resp. CultureMixed normal respiratory roxanne. No Streptococcus pneumoniae, beta-hemolytic Streptococcus or Staphylococcus aureus isolated. [id number]-[id number]:13 CBC W/Diff, Automated Comments: Test performed at:[facility] [id number] [place], [place] [address] Absolute Lymph 1.78 {X10_3/ul} (Normal) Range: 0.83-4.51 [...] 4.2-5.4 WBC 5.3 K/mm3 (Normal) Range: 4.4-11.0 70-Qsd-[id number]:13 Comprehensive Metabolic Profil Comments: Test performed at:[facility] [id number] [facility]. [place], [place] [id number] GAP 7 (Normal) Range: 5-15 CO2 26.0 [...] Comments: Please note revised CREATININE reference range hkktalpzx04/22/2015. BUN 18 mg/dL (Normal) Range: 7-18 GLU 124 mg/dL (Abnormal) Range: 70-110 Comments: Fasting Glucose result from 110 to <126 mg/dLsuggests IMPAIRED HOMEOSTASIS per A.D.A. criteria. 5-Nkv-541072:5 ENDOMETRIAL BX/CURETTINGS See Note (Normal) Comments: Test performed at:[facility] [id number] [facility] [place] [address] 4 Comments: Patient: TIN BLACKWOOD : 1960 (53/F) Acct Num: [id number] Phys: Allie Bales MD Unit Num: [id number] [place] [facility] [place]: [id number] Received: 11/06/14 - 1230 Spec Type: ENDOM BX/C TISSUES TISSUES: GROSS DESCRIPTION Received is one container labeled with the patient name and designated endometrial curettings. The specimen consists of multiple fragments o f hemorrhagic soft tissue measuring in aggregate 5 x 2 x 0.2 cm. The entire specimen is submitted in two cassettes. / SJ:yi 11/06/14 TC:5 CPT: 95367 HEADER OPERATION: Hysteroscopy, diagnosti c, D AND C PRE-OP DIAGNOSIS: Menorrhagia, thickened endometrium TISSUE SUBMITTED: Endometrial curettings MICROSCOPIC DIAGNOSIS Endometrium, curettings: Secretory endometrium. AM:s l 11/07/14 Signed [facility] 11/07/14 <signature on file> 0-Nun-488619:48 Partial Thromboplast Time Comments: Test performed at:[facility] [address] [place], [place] [address] PTT 26.6 s (Normal) Range: 24.1-36.2 4-Lks-754178:48 Prothrombin Time w/INR Comments: Test performed at:[facility] [address] [place], [place] [address] INR 0.9 (Normal) PROTIME 12.2 s (Normal) Range: 11.7-14.9 3-Ouh-711819:18 ,Urine Comments: Order Date: 11/06/14Has pt arrived? YTest performed at:[facility] [address] [place] [address] HCGUQUAL Negative {Negative} (Normal) Comments: Very dilute urine specimens, as indicated by a low specificgravity, may not contain vendor representatives levels of hCG.If is still suspected, a first morning urinespecimen should be collected 48 hours later and tested. :26 Estradiol Comments: Test performed at:[facility] [address] [place], [place] [id number] ESTRADIOL 13.1 pg/mL (Normal) Comments: NORMAL REFERENCE RANGES FEMALE FOLLICULAR 21.4 - 164.8 pg/mL MID-CYCLE PEAK 49.9 - 367.2 pg/mL LUTEAL 40.2 - 259.0 pg/mL POST-MENOPAUSAL ON MHT <11.0 - 462.1 pg/mL NOT ON MHT <11.0 - 58.3 pg/mL MALE <11.0 - 52 .5 pg/mLNEW TEST METHOD AND REFERENCE RANGE SEPTEMBER 22, 2011:26 Free T3 Comments: Test performed at:[facility] [address] [place], [place] [id number] FREE T3 3.0 pg/mL (Normal) Range: 2.18-3.98 :26 Hemoglobin A1c Comments: Test performed at:[facility] [address] [place] [address] ; ordered by other doctor HGB A1C 5.7 % (Normal) Range: 4.2-6.3 :26 Progesterone Level Comments: Test performed at:[facility] [address] [place] [address] Progesterone 0.34 ng/mL (Normal) Comments: Progesterone Reference Table: UNITS Female: Follicular 0.15 - 1.40 ng/mL Luteal 3.34 - 25.56 ng/mL Mid-luteal 4.44 - 28.03 ng/mL Postmenopausal 0.0 - 0.73 ng/mL : 1st Trimester 11.22 - 90.00 ng /mL 2nd Trimester 25.55 - 89.40 ng/mL 3rd Trimester 48.40 -422.50 ng/mL :26 T4 Free Direct Comments: Test performed at:[facility] [address] [place] [address] T4 FREE DIRECT 0.77 ng/dL (Normal) Range: 0.76-1.46 :26 Testosterone, Serum Total Comments: Test performed at:[facility] [address] [place] [address] Testosterone 30 ng/dL (Normal) Range: 14-76 Comments: ADDENDA: ordered by Dr. Bales :26 Thyroid Stim Hormone (TSH) Comments: Test performed at:[facility] [address] [place] [address] TSH 0.84 {uIU/mL} (Normal) Range: 0.358-3.74 9-Qei-608790:03 17-Hydroxypregnenolone, MS Comments: PATIENT NOT FASTINGPERFORMED BY: BrainMass70 [facility] [place] [id number] BY: ES [employer] Wmsfvkwvzbjws2600 [facility] [id number] 17 [place] Pregnenolone, 14 ng/dL (Abnormal) Comments: Reference Range:Adults: 53 - 357 Serum, MS hCG,Beta Negative m[iU]/mL Comments: PATIENT NOT FASTINGPERFORMED BY: [employer]Logic6370 [facility] [place] [id number] BY: ES [employer] Velfdqzlxggyh6221 [facility] [id number] 2:03 Subunit,Qual,Serum (Normal) Prolactin 10.9 ng/mL (Normal) Comments: PATIENT NOT FASTINGPERFORMED BY: [employer] LabMediasmart Szurja[address] [facility] [place] [id number] BY: ES [employer] Qvnzhmianzpwv5254 [facility] [id number] 2:03 Range: 4.8-23.3 :03 Prothrombin Time (PT) Comments: PATIENT NOT FASTINGPERFORMED BY: [employer] LabMonteris Medicalrp Caodaf0683 [address] [facility] [place] [id number] BY: ES [employer] Ayalvnbomkapo7009 [facility] [id number] 11Clinical Information: [id number], [id number] Prothrombin Time 10.5 {sec} (Normal) Range: 9.1-12.0 INR 1.0 (Normal) Range: 0.8-1.2 Comments: Reference interval is for non-anticoagulated patients. . Suggested INR therapeutic range for Vitamin K anta gonist therapy: Standard Dose (moderate intensity therapeutic range): 2.0 - 3.0 Higher intensity therapeutic range 2.5 - 3.5 9-Cjw-803274:03 PTT, Activated Comments: PATIENT NOT FASTINGPERFORMED BY: [address] [id number] BY: Tyto [address] [id number] aPTT 27 {sec} (Normal) Range: 24-33 Comments: This test has not been validated for monitoring unfractionated heparintherapy. aPTT-based therapeutic ranges for unfractionated heparintherapy have not been established. For general guidelines onHeparin monitoring, refer to the [facility] Directory of Services. 3-Ijr-275835:03 Thyroxine (T4) Free, Comments: PATIENT NOT FASTINGPERFORMED BY: [address] [id number] BY: Tyto [address] [id number] Direct, S T4,Free(Direct) 0.87 ng/dL (Normal) Range: 0.82-1.77 :0 TSH 0.723 {uIU/mL} Comments: PATIENT NOT FASTINGPERFORMED BY: [address] [id number] BY: Tyto [address] [id number] 3 (Normal) Range: 0.450-4.500 5-Vdq-389722:01 CBC W/Diff, Automated Comments: Test performed at:[facility] [address] [place], [place] [id number] Absolute Lymph 1.51 {X10_3/ul} (Normal) Range: 0.83-4.51 [...] 4.2-5.4 WBC 5.7 K/mm3 (Normal) Range: 4.4-11.0 9-Sjx-604276:01 Comprehensive Metabolic Profil Comments: Test performed at:[facility] [address] [place], [place] [address] GAP 7 (Normal) Range: 5-15 CO2 28.0 [...] 7-18 GLU 94 mg/dL (Normal) Range: 70-110 03-Fbt-821835:09 Urine Test, Office (61350) Urine Test, Office Negative (Normal) 21-Sjo-566938:09 Urinalysis, Office (62055) UA - LEUKOCYTE ESTERASE Negative (Normal) UA - NITRITE Negative (Normal) URINE UROBILINGN SRAVANI TIMED Normal mg/dL (Normal) UA - PROTEIN Negative mg/dL (Normal) UA - PH 6 (Abnormal) UA - BLOOD Negative (Normal) UA - SPECIFIC GRAVITY 1.025 (Normal) UA - KETONES Negative mg/dL (Normal) UA - BILIRUBIN Negative (Normal) UA - GLUCOSE Negative (Normal) 9-Gzy-034096:14 CBC W/Diff, Automated Comments: Test performed at:[facility] [address] [place] [address] Absolute Lymph 2.05 {X10_3/ul} (Normal) [...] 4.2-5.4 WBC 8.6 K/mm3 (Normal) Range: 4.4-11.0 6-Smu-515828:14 Comprehensive Metabolic Profil Comments: Test performed at:[facility] [address] [place] [address] GAP 2 (Abnormal) Range: 5-15 CO2 32.0 [...] 7-18 GLU 92 mg/dL (Normal) Range: 70-110 3-Aph-087538:31 CBCD ALC 1.45 {X10_3/ul} (Normal) Range: 0.83-4.51 [...] 4.2-5.4 WBC 7.6 K/mm3 (Normal) Range: 4.4-11.0 6-Vkz-413919:45 CMP GAP 8 (Normal) Range: 5-15 CO2 [...] Range: 70-110 :50 Blood Glucose , Office (92786) Blood Glucose , Office 143 (Normal) Comments: non-fasting :50 HgA1C , Office (61468) HgA1C , Office 5.8 % (Normal) Range: 4.6 - 7.1 :36 ISIAH Negative (Normal) Comments: Performed at: - [facility] [id number] Director: Ricardo Pace MD, Phone: [phone] :[phone] CCP < 1 {units} (Normal) Range: 0-19 Comments: Negative <20Weak positive 20 - 39Moderate positive 40 - 59Strong positive >59Performed at: - [facility] [address] [id number] Director: Stepan Hernandez MD, Phone: [phone] :[phone] CRP 3.36 mg/L (Abnormal) Range: 0.0-3.0 [...] (Normal) Range: 0.358-3.74 :46 HgA1C , Office (62211) HgA1C , Office 5.7 % (Normal) Range: 4.6 - 7.1 :46 Blood Glucose , Office (76728) Blood Glucose , Office 106 (Normal) :51 HgA1C , Office (75329) HgA1C , Office 5.8 % (Normal) Range: 4.6 - 7.1 :51 Blood Glucose , Office (25683) Blood Glucose , Office 122 (Normal) Comments: non-fasting :05 HgA1C , Office (80858) HgA1C , Office 5.8 % (Normal) Range: 4.6 - 7.1 :04 Blood Glucose , Office (66475) Blood Glucose , Office 137 (Normal) :25 HgA1C , Office (37887) HgA1C , Office 5.7 % (Normal) Range: 4.6 - 7.1 :25 Blood Glucose , Office (59956) Blood Glucose , Office 96 (Normal) :33 HEPATIC FUNCTION PANEL Comments: PATIENT NOT FASTINGPERFORMED BY: NILE [facility]6370 [facility] [id number] (99730) Alkaline Phosphatase, S 46 [iU]/L (Normal) Range: [...] Comments: PATIENT NOT FASTINGPERFORMED BY: NILE [facility] [address] [place] [id number] Information: [id number] DRAW FEE 866720 (11505) Albumin, Serum 4.3 g/dL (Normal) Range: 3.5-5.5 [...] Glucose, Serum 105 mg/dL (Abnormal) Range: 65-99 05-Kqm-153024:04 Urinalysis, Office (08894) UA - BILIRUBIN Negative (Normal) UA - BLOOD Negative (Normal) UA - GLUCOSE Negative (Normal) UA - KETONES Negative mg/dL (Normal) UA - LEUKOCYTE ESTERASE Negative (Normal) UA - NITRITE Negative (Normal) UA - PH 6.0 (Normal) UA - PROTEIN Negative mg/dL (Normal) UA - SPECIFIC GRAVITY 1.025 (Normal) URINE UROBILINGN SRAVANI TIMED Normal mg/dL (Normal) 57-Nau-376725:41 HgA1C , Office (08428) HgA1C , Office 5.9 % (Normal) Range: 4.6 - 7.1 :42 LQDPAP [id number] PAPSMR Comment (Normal) Comments: The Pap smear [...] no HPV testing was performed. .Performed at: [address] [id number] Director: John Echeverria MD, Phone: [phone] COMM . (Normal) DIAGN Comment (Normal) Comments: NEGATIVE FOR INTRAEPITHELIAL LESION AND MALIGNANCY.Satisfactory for evaluation. Endocervical and/or squamous metaplasticcells (endocervical component) are present.Holly Reed, Carton Forming Machine Helper (ASCP)T his liquid based ThinPrep(R) pap test was screened withthe use of an image guided system. 90-Neg-717893:20 TSH (20570) Comments: PATIENT WAS FASTINGPERFORMED BY: [facility]6370 [facility] [id number] TSH 2.160 {uIU/mL} (Normal) Range: 0.450-4.500 22-Yba-629389:20 MICROALBUMIN: CREATININE RATIO Comments: PATIENT WAS FASTINGPERFORMED BY: [facility]6370 [facility] [id number] (51447) AND (35710) Microalb/Creat Ratio 2.3 {mg/g_creat} (Normal) Range: 0.0-30.0 Microalbumin, Urine 1.6 ug/mL (Normal) Range: 0.0-17.0 Creatinine, Urine 70.5 mg/dL (Normal) Range: 15.0-278.0 50-Kge-553175:20 METABOLIC PANEL, COMPREHENSIVE Comments: PATIENT WAS FASTINGPERFORMED BY: [facility]6370 [facility] [id number] (56572) ALT (SGPT) 19 [iU]/L (Normal) Range: 0-40 [...] Glucose, Serum 109 mg/dL (Abnormal) Range: 65-99 76-Caj-551399:20 LIPID PANEL (08773) Comments: PATIENT WAS FASTINGPERFORMED BY: [employer]6370 GeeksphoneAt[facility] [id number] LDL/HDL Ratio 1.4 {ratio_units} (Normal) Range: 0.0-3.2 LDL Cholesterol Calc 108 mg/dL (Abnormal) Range: 0-99 VLDL Cholesterol Zaria 16 mg/dL (Normal) Range: 5-40 HDL Cholesterol 78 mg/dL (Normal) Comments: According to ATP-III Guidelines, HDL-C >59 mg/dL is considered anegative risk factor for CHD. Cholesterol, Total 202 mg/dL (Abnormal) Range: 100-199 Triglycerides 82 mg/dL (Normal) Range: 0-149 44-Wwv-611940:20 CBC WITH MANUAL DIFF Comments: PATIENT WAS FASTINGPERFORMED BY: ComHearAtrium Health [facility] [id number] Information: ADD [id number] AND DRAW FEE 99 [id number] (27923) Immature Grans (Abs) 0.0 {x10E3/uL} (Normal) Range: [...] 3.80-5.10 WBC 5.2 {x10E3/uL} (Normal) Range: 4.0-10.5 28-Nus-875050:05 URINE ALISSON CULTURE-SRAVANI COL Comments: PATIENT NOT FASTINGPERFORMED BY: NILE [facility] Rdplxn8782 [facility] [id number] Information: SRC:UR [id number] COUNT (69474) Antimicrobial MIHEAD (Normal) Comments: S = Susceptible; [...] Final report (Normal) Culture,Comprehensive :51 Urinalysis, Office (02545) UA - BILIRUBIN Negative (Normal) UA - BLOOD Hemolyzed Trace (Normal) UA - GLUCOSE Negative (Normal) UA - KETONES Negative mg/dL (Normal) UA - LEUKOCYTE ESTERASE Large (Normal) UA - NITRITE Negative (Normal) UA - PH 6.5 (Normal) UA - PROTEIN Negative mg/dL (Normal) UA - SPECIFIC GRAVITY 1.015 (Normal) URINE UROBILINGN SRAVANI TIMED Normal mg/dL (Normal) :53 CBC (Auto) (96157) Comments: PATIENT NOT FASTINGPERFORMED BY: CB [facility] Lhfjlw8590 [facility] [id number] Information: [id number] Platelets 271 {x10E3/uL} (Normal) Range: 140-415 RDW 13.4 % (Normal) Range: 11.7-15.0 MCHC 34.0 g/dL (Normal) Range: 32.0-36.0 MCH 31.0 pg (Normal) Range: 27.0-34.0 Hematocrit 37.9 % (Normal) Range: 34.0-44.0 MCV 91 fL (Normal) Range: 80-98 Hemoglobin 12.9 g/dL (Normal) Range: 11.5-15.0 RBC 4.16 {x10E6/uL} (Normal) Range: 3.80-5.10 WBC 4.7 {x10E3/uL} (Normal) Range: 4.0-10.5 :53 Potassium Serum (73445) Comments: PATIENT NOT FASTINGPERFORMED BY: [facility]CoUNM Cancer CenterTctqjy0808 [facility] [id number] Potassium, Serum 4.9 mmol/L (Normal) Range: 3.5-5.2 38-Fxa-09663:17 GALLBLADDER Radiology Report See Note (Normal) Comments: [...] 42 U/L (Normal) Comments: RESULTS FAXED 05/24/10 9683 [address] C[address]OS. 13:17 Range: 25-115 19-Xwr-596879:17 CBCD,SMEAR DIFF RED CELL MORPH SeeNote {NORMAL} [...] 4.2-5.4 WBC 3.0 K/mm3 (Abnormal) Range: 4.4-11.0 16-Cre-113252:17 COMP METABOLIC Comments: RESULTS FAXED 05/24/10 1522 [...] 0.6-1.0 GLU 82 mg/dL (Normal) Range: 70-110 42-Tiq-417574:17 LIPASE 124 U/L (Normal) Comments: RESULTS FAXED 05/24/10 1522 CARL[address] C[address]OS. Range: 70-290 Comments: Please note:LIPASE revised reference range effective 09. 4-Awb-408403:38 CBCD,SMEAR DIFF RED CELL MORPH SeeNote {NORMAL} [...] 4.2-5.4 WBC 5.3 K/mm3 (Normal) Range: 4.4-11.0 1-Dkx-991904:38 COMP METABOLIC GAP 8 (Normal) Range: 5-15 [...] 0.6-1.0 GLU 86 mg/dL (Normal) Range: 70-110 5-Fen-919171:38 LIPID LDL 98 mg/dL (Normal) Range: 0-130 [...] Very High > or = 500 mg/dL 0-Dgt-195156:38 MICROALB:CRE UR MALB:CREAT 13.5 {mg/g_CRE} (Normal) MICROALBUMIN,UR 5.2 mg/L (Normal) UR CREAT 38.5 mg/dL (Normal) :38 TSH 0.50 {uIU/mL} (Normal) Range: 0.358-3.74 5-Zfb-456855:03 Urinalysis, Office (69915) UA - BILIRUBIN Negative (Normal) UA - BLOOD Hemolyzed Trace (Normal) UA - GLUCOSE Negative (Normal) UA - KETONES Negative mg/dL (Normal) UA - LEUKOCYTE ESTERASE Negative (Normal) UA - NITRITE Negative (Normal) UA - PH 6.5 (Normal) UA - PROTEIN Negative mg/dL (Normal) UA - SPECIFIC GRAVITY 1.020 (Normal) URINE UROBILINGN SRAVANI TIMED Normal mg/dL (Normal) 50-Uso-633724:01 Urinalysis, Office (37599) UA - BILIRUBIN Moderate (Normal) UA - BLOOD Hemolyzed Large (Normal) UA - GLUCOSE Negative (Normal) UA - KETONES Negative mg/dL (Normal) UA - LEUKOCYTE ESTERASE Negative (Normal) UA - NITRITE Negative (Normal) UA - PH 6.0 (Normal) UA - PROTEIN Negative mg/dL (Normal) UA - SPECIFIC GRAVITY 1.010 (Normal) URINE UROBILINGN SRAVANI TIMED Normal mg/dL (Normal) 79-Dal-353356:46 URINE ALISSON CULTURE-IDENTIFICATN Comments: PATIENT NOT FASTINGPERFORMED BY: [employer] Eqvtiv3568 [facility] [id number] Information: [id number] (78423) Result 1 NG36 (Normal) Comments: No growth in 36 - 48 hours. Urine Culture,Comprehensive Final report (Normal) 77-Vii-891708:00 TSH (42155) Comments: PATIENT WAS FASTINGPERFORMED BY: [employer] Hozpip6733 [facility] [id number] TSH 1.190 {uIU/mL} (Normal) Range: 0.450-4.500 63-Kyc-348169:00 METABOLIC PANEL, COMPREHENSIVE Comments: PATIENT WAS FASTINGPERFORMED BY: [employer] NetworksJefferson [facility]Dkkofs6164 [facility] [id number] (91129) A/G Ratio 1.7 (Normal) Range: 1.1-2.5 Albumin, [...] Sodium, Serum 139 mmol/L (Normal) Range: 135-145 60-Hpq-128497:00 LIPID PANEL (03788) Comments: PATIENT WAS FASTINGPERFORMED BY: [facility]HearAt[facility] [id number] Cholesterol, Total 231 mg/dL (Abnormal) Range: 100-199 HDL Cholesterol 79 mg/dL (Normal) Comments: According to ATP-III Guidelines, HDL-C >59 mg/dL is considered anegative risk factor for CHD. LDL Cholesterol Calc 127 mg/dL (Abnormal) Range: 0-99 LDL/HDL Ratio 1.6 {ratio_units} (Normal) Range: 0.0-3.2 Triglycerides 123 mg/dL (Normal) Range: 0-149 VLDL Cholesterol Zaria 25 mg/dL (Normal) Range: 5-40 77-Ifh-496211:00 CBC WITH MANUAL DIFF (08543) Comments: PATIENT WAS FASTINGClinical Information: [id number] PERFORMED BY: [facility]HearAt[facility] [id number] Baso (Absolute) 0.0 {x10E3/uL} (Normal) Range: 0.0-0.2 [...] Culture,Comprehensive Comments: Clinical Information: SRC:UR PERFORMED BY: [facility]CoJeff[facility])Moptbr2369 [facility] [id number] Result 1 ECV (Normal) Comments: Escherichia coli, [...] S Urine Final report (Normal) Culture,Comprehensiv e 45-Wab-826791:59 Urinalysis, Office (74292) UA - BILIRUBIN Negative (Normal) UA - BLOOD Hemolyzed Moderate (Normal) UA - GLUCOSE Negative (Normal) UA - KETONES Negative mg/dL (Normal) UA - LEUKOCYTE ESTERASE Moderate (Normal) UA - NITRITE Negative (Normal) UA - PH 6.0 (Normal) UA - PROTEIN Negative mg/dL (Normal) UA - SPECIFIC GRAVITY 1.015 (Normal) URINE UROBILINGN SRAVANI TIMED 2 mg/dL (Normal) 49-Cms-053463:54 URINALYSIS W/O MICRO (79039) Comments: PATIENT WAS FASTINGPERFORMED BY: [employer] [facility] [id number] Appearance Clear (Normal) Bilirubin Negative (Normal) Glucose Negative (Normal) Ketones Negative (Normal) Microscopic Examination MICRON (Normal) Comments: Microscopic follows if indicated. Nitrite, Urine Negative (Normal) Occult Blood Negative (Normal) pH 6.5 (Normal) Range: 5.0-7.5 Protein Negative (Normal) Specific Wayne 1.012 (Normal) Range: 1.005-1.030 Urine-Color Yellow (Normal) Urobilinogen,Semi-Qn 0.2 mg/dL (Normal) Range: 0.0-1.9 WBC Esterase Negative (Normal) 08-Rbs-052683:54 TSH (88708) Comments: PATIENT WAS FASTINGPERFORMED BY: [employer]70 [facility] [id number] TSH 1.015 {uIU/mL} (Normal) Range: 0.450-4.500 07-Rhm-946711:54 METABOLIC PANEL, COMPREHENSIVE Comments: PATIENT WAS FASTINGPERFORMED BY: [employer]UD[employer] [facility] [id number] (21411) A/G Ratio 1.5 (Normal) Range: 1.1-2.5 Albumin, [...] Serum 113 mg/dL (Abnormal) Range: 65-99 If -South Korean >59 mL/min/1.73 Comments: Note: Persistent reduction for [...] mmol/L (Normal) Range: 135-145 :54 LIPID PANEL (79554) Comments: PATIENT WAS FASTINGPERFORMED BY: [facility]Jeff[facility])Bsbsjw5940 [facility] [id number] Cholesterol, Total 199 mg/dL (Normal) Range: 100-199 [...] Cholesterol Zaria 26 mg/dL (Normal) Range: 5-40 :54 CBC WITH MANUAL DIFF (96541) Comments: PATIENT WAS FASTINGClinical Information: ADD DRAW FEE 896889 ADD J 19437 PERFORMED BY: [facility]Jeff[facility]Trloay5950 [facility] [id number] Baso (Absolute) 0.0 {x10E3/uL} (Normal) Range: 0.0-0.2 [...] change for the pediatric CBC With Differential/Platelet 45-Itx-723738:32 PELVIC (NON-PREG) (HP) Radiology Report See Note (Normal) Comments: Exam Number: [id number] PELVIC ULTRASOUND HISTORYOvarian cyst, left side. COMPARISON [...] 26, 2006. Reported By: MANSI SINGER M.D. 3-Ogh-355642:42 ISIAH-D [id number] ISIAH-DIRECT 32 U/mL (Normal) Range: 0-99 Comments: [...] cardiovasculardisease. Reference: High risk CRP >3.0 mg/L 3-Fex-800005:42 CBCD,SMEAR DIFF BAND 5 % (Normal) Range: [...] Range: 0.2 - 1.0 :42 T3, FREE 28864 2.8 pg/mL (Normal) Range: 2.3-4.2 Comments: Performed At: [address] [id number] :42 T4 FREE,DIRECT 1.0 ng/dL (Normal) Range: 0.89-1.76 :42 TSH 0.54 {uIU/mL} (Normal) Range: 0.34-4.82 :56 MAMM, UILAT DIAG DIGITAL & CAD Radiology Report See Note (Normal) Comments: Exam Number: [id number] MAMMOGRAPHY, RIGHT UNILATERAL DIAGNOSTIC DIGITAL AND CAD [...] mammograms werealso examined with computer-aided detection software ([employer] Reported By: AARON DE ANDA M.D. 27-Nrv-990510:59 MAMM, BILAT SCRN DIGITAL & CAD Radiology Report See Note (Normal) Comments: Exam Number: [id number] BILATERAL SCREENING DIGITAL MAMMOGRAM CLINICAL INFORMATIONScreening. TECHNIQUEBilateral [...] werealso examined with computer- aided detection software ([employer] Reported By: SUSI MACK M.D. 37-Xjs-603409:59 PELVIC (NON-PREG) (HP) Radiology Report See Note (Normal) Comments: Exam Number: [id number] TRANSABDOMINAL PELVIC ULTRASOUND CLINICAL STATEMENTLower abdominal pain. [...] Anxiety: emotional health Indication: Impaired fasting glucose InvierteMe,SL V73. (Renamed from [employer]te[employer],SL) : *Well Female Maintenance (KF) Indication: [employer],SL V73. (Renamed from [employer],SL) [employer],SL V7. (Renamed from [employer],SL) : Pap/Pelvic/Bimanual/Rectal/Breast Exam was done. Indication: Invierte[employer],SL V73. (Renamed from [employer],SL) Dysuria : Water in diet, brief version Indication: Dysuria Dysuria : *UTI treatment Indication: Dysuria Dysuria : *UTI treatment Indication: Dysuria Dysuria : UTI treatment Indication: Dysuria Fatigue : FOLLOW UP IN 2 WEEKS Indication: Fatigue Fatigue : *fatigue education Indication: Fatigue Planned Observations MICROALBUMIN: CREATININE RATIO (98260) AND (26279)Indication: Hypertension On: :52 Request URINALYSIS (82369)Indication: Hypertension On: :52 Request CBC WITH MANUAL DIFF (25346)Indication: Hypertension On: :52 Request Metabolic Panel, Comprehensive (14624)Indication: Hypertension On: :52 Request Anti-TPO Antibody (80739)Indication: Subclinical hyperthyroidism On: :40 Request Comments: check in February T4, FREE (THYROXINE) (41258)Indication: Subclinical hyperthyroidism On: :40 Request Comments: check in February T-3 UPTAKE (23007)Indication: Subclinical hyperthyroidism On: :40 Request Comments: recheck February TSH (33128)Indication: Subclinical hyperthyroidism On: :40 Request Comments: recheck February CULTURE, SPUTUM (64696)Indication: COPD with acute exacerbation (Renamed from Acute exacerbation of chronic obstructive airways disease) On: 2-Gum-240266:45 Request Anti-TPO Antibody (32502)Indication: Abnormal blood chemistry On: 2-Qov-857996:18 Request T3, FREE (TRIDOTHYRONINE) (72579)Indication: Abnormal blood chemistry On: :18 Request T4, FREE (THYROXINE) (23031)Indication: Abnormal blood chemistry On: 5-Mtu-803585:18 Request TSH (22772)Indication: Abnormal blood chemistry On: 9-Ark-532974:18 Request D-Dimer (62024)Indication: Chest pain On: 6-Bps-649062:49 Request Comments: do all labs stat...zaria to on zaria Dr. if abnormal CPK MB FRACTION (49750)Indication: Chest pain On: 1-Jjq-655847:22 Request CREATINE KINASE TOTAL (16954)Indication: Chest pain On: 3-Ohz-448867:22 Request Metabolic Panel, Comprehensive (98949)Indication: Fatigue On: 7-Pku-216284:06 Request CBC, Platelets & Auto Diff (36119)Indication: Immunocompromised On: 3-Dim-492865:03 Request CULTURE, SPUTUM (58277)Indication: Bronchitis, acute On: 9-Uvd-726374:58 Request METABOLIC PANEL, COMPREHENSIVE (40168)Indication: Benign essential hypertension On: 07-Hxj-660913:57 Request LIPID PANEL (39297)Indication: Benign essential hypertension On: 51-Aog-767835:57 Request T4, FREE (THYROXINE) (69250)Indication: Perimenopausal menorrhagia On: 7-Vqi-898782:00 Request TSH (THYROID STIMULATING HORMONE) ([id number])Indication: Perimenopausal menorrhagia On: 4-Ihr-183017:59 Request Comments: fax copy all labs to Dr. bales HCG (HUMAN CHORIONIC GONADOTROPIN) ([id number])Indication: Perimenopausal menorrhagia On: 7-Czp-730771:57 Request PTT (ACTIVATED PARTIAL THROMBOPLASTIN TIME) ([id number])Indication: Perimenopausal menorrhagia On: 8-Utk-304918:57 Request PT/INR, Office ([id number])Indication: Perimenopausal menorrhagia On: 1-Eik-634869:57 Request 17-HYDROXYPREGNENOLONE ([id number])Indication: Perimenopausal menorrhagia On: 7-Tcy-542685:57 Request PROLACTIN ([id number])Indication: Perimenopausal menorrhagia On: 8-Xix-034372:57 Request LIPID PANEL ([id number])Indication: Benign essential hypertension On: 37-Lbw-847746:28 Request CCP ANTIBODY ([id number])Indication: Acute rheumatoid arthritis On: 77-Auk-914898:17 Request SED RATE ERYTHROCYTE ([id number])Indication: Acute rheumatoid arthritis On: 84-Mel-883375:17 Request C-REACTIVE PROTEIN ([id number])Indication: Acute rheumatoid arthritis On: 12-Jum-038922:17 Request TSH ([id number])Indication: Acute rheumatoid arthritis On: 00-Wta-891244:17 Request RHEUMATOID FACTOR-QUANT ([id number])Indication: Acute rheumatoid arthritis On: 85-Inb-704569:17 Request ISIAH (ANTINUCLEAR ANTIBODY) ([id number])Indication: Acute rheumatoid arthritis On: 09-Boc-323168:17 Request URINALYSIS, W/ MICRO ([id number])Indication: Benign essential hypertension On: 3-Yox-680847:20 Request METABOLIC PANEL, COMPREHENSIVE ([id number])Indication: Benign essential hypertension On: 5-Ssa-169873:20 Request LIPID PANEL ([id number])Indication: Benign essential hypertension On: 9-Axe-879715:20 Request CBC WITH MANUAL DIFF ([id number])Indication: Benign essential hypertension On: 8-Wsm-719978:20 Request URINE ALISSON CULTURE (SRAVANI COL COUNT) ([id number])Indication: Hematuria On: 93-Chn-476810:04 Request METABOLIC PANEL, COMPREHENSIVE ([id number])Indication: Nausea and vomiting On: 20-Sfj-887206:02 Request CBC WITH MANUAL DIFF ([id number])Indication: Nausea and vomiting On: :02 Request Lipase ([id number])Indication: Nausea and vomiting On: : Request Amylase ([id number])Indication: Nausea and vomiting On: : Request OVA & PARASITE DIR SMEAR ([id number])Indication: Diarrhea On: : Request C.Difficile, Stool ([id number])Indication: Diarrhea On: : Request LEUKOCYTE COUNT, FECAL ([id number])Indication: Diarrhea On: : Request ALISSON CULTURE-STOOL ([id number])Indication: Diarrhea On: :01 Request TSH ([id number])Indication: Depression On: 5-Wnw-774249:10 Request MICROALBUMIN: CREATININE RATIO ([id number]) AND ([id number])Indication: Benign essential hypertension On: 7-Fcv-340604:10 Request METABOLIC PANEL, COMPREHENSIVE ([id number])Indication: Benign essential hypertension On: 1-Fqz-407387:10 Request LIPID PANEL ([id number])Indication: Benign essential hypertension On: 1-Qfw-644664:09 Request CBC WITH MANUAL DIFF ([id number])Indication: Benign essential hypertension On: 9-Klb-995217:09 Request URINALYSIS W/O MICRO ([id number])Indication: Benign essential hypertension On: :39 Request MICROALBUMIN URINE QUANT ([id number])Indication: Benign essential hypertension On: :39 Request METABOLIC PANEL, COMPREHENSIVE ([id number])Indication: Benign essential hypertension On: :39 Request LIPID PANEL ([id number])Indication: Benign essential hypertension On: :39 Request ISIAH (ANTINUCLEAR ANTIBODY) ([id number])Indication: Fatigue On: :39 Request C-REACTIVE PROTEIN ([id number])Indication: Fatigue On: :39 Request CBC (AUTO) ([id number])Indication: Fatigue On: :39 Request Folate ([id number])Indication: Fatigue On: :39 Request METABOLIC PANEL, COMPREHENSIVE ([id number])Indication: Fatigue On: :39 Request RHEUMATOID FACTOR-QUANT ([id number])Indication: Fatigue On: :39 Request SED RATE ERYTHROCYTE ([id number])Indication: Fatigue On: :39 Request TSH ([id number])Indication: Fatigue On: :39 Request VITAMIN B-12 (CYANOCOBALAMIN) ([id number])Indication: Fatigue On: :39 Request Planned Encounters Medical; [facility] 2 Month FU - On: 31-May-2018 13:00 [facility] Shasha Barker MD, MD, Dana M Planned Procedures Flu Vaccine (Quadrivalent) 46236Yp: On: 30-Mar-2018 Intent Shasha Barker MD, MD, Dana M MRI OF LUMBAR SPINE WITH AND WITHOUT On: 18-Jan-2018 Intent CONTRAST ([id number])By: Shasha Barker MD Comments: rule out cauda equina syndrome, back injection also in last [facility] Shasha Gillespie MD THYROID SCAN UPTAKE ([id number])By: On: 16-Nov-2017 Intent Shasha Barker MD, MD, [...] ([id number])By: Shasha Barker MD Comments: Lot # [id number] solu medrol given right deltoid by Shasha Suggs lpn, MD Radiology - ChestBy: Mj AL, On: 15-May-2017 Intent Shasha Ba MD Solu- Medrol Injection, 125mg On: 12-May-2017 Intent ([id number])By: Shasha Barker MD, MD, Dana M Aerosol Treatment ([id number])By: Mj On: 12-May-2017 Intent Shasha AL MD, Dana M EKG ([id number])By: Shasha Barker MD On: 12-Mar-2017 Intent Shasha [...] MD, Dana M XRAY LEFT SMALL TOE ([id number])By: On: 20-May-2016 Intent Shasha Barker MD, MD, Dana Comments: 5th digit focus on area of pain and get distal metatarsal bone M MAMMOGRAM BREAST BILATERAL SCREENING On: 06-May-2016 Intent DIGITAL ([id number])By: Shasha Barker MD, MD, Dana M DEXA SCAN AXIAL SKELETON ([id number])By: On: 06-May-2016 Intent Shasha Barker MD, MD, Dana M Ultrasound - RenalBy: Mj AL, On: 07-Aug-2015 Intent Shasha Ba MD Nuclear Stress Test/Stress On: 08-Jun-2015 Intent SPECT/AdenosineBy: Shasha Barker MD, MD, Dana M Radiology - ChestBy: Ophelia Boogie CNP On: 27-Feb-2015 Intent E Radiology - ChestBy: Ophelia Boogie CNP On: 05-Feb-2015 Intent E Ultrasound - PelvisBy: Chuyita ROSS, On: 19-Jul-2014 Intent Ophelia Estrada EKG ([id number])By: Shasha Barker MD On: 23-Jun-2013 Intent Shasha Barker MD Comments: see scanned document of test done to see results reviewed today with patient MAMMOGRAM, SCREENING, BOTH BREASTS On: 23-Jun-2013 Intent ([id number])By: Shasha Barker MD, MD, Dana M Eprescribed prescriptions ([id number])By: On: 23-Jun-2013 Intent Shasha Barker MD, MD, Dana M Radiology - Hand - BilateralBy: On: 10-Feb-2013 Intent Shasha Barker MD, MD, Dana Comments: copy to Dr. kern and lior Whitten Eprescribed prescriptions ([id number])By: On: 10-Feb-2013 Intent Long SHANK PAPERER, Riana L Eprescribed prescriptions ([id number])By: On: 11-Oct-2012 Intent Shasha Barker MD, MD, Dana M EKG ([id number])By: Shasha Barker MD On: 11-Jun-2012 Intent Shasha Barker MD Eprescribed prescriptions ([id number])By: On: 11-Jun-2012 Intent Long SHANK PAPERER, Riana L CT - Abdomen & Pelvis (IV Contrast On: 12-Mar-2012 Intent Needed)By: Shasha Barker MD, MD, Dana M MAMMOGRAM, SCREENING, BOTH BREASTS On: 29-Apr-2011 Intent ([id number])By: Shasha Barker MD, MD, Dana M MAMMOGRAM, SCREENING, BOTH BREASTS On: 25-Apr-2011 Intent ([id number])By: Shasha Barker MD, MD, Dana M EKG ([id number])By: JACKIE Bruno On: 26-Aug-2010 Intent Ultrasound - GallbladderBy: Fast DO, On: 27-May-2010 Intent Philomena A Ultrasound - GallbladderBy: Fast DO, On: 24-May-2010 Intent Philomena A Doppler Ultrasound OtherBy: Augustine On: 25-Apr-2010 Intent Jeannette FARAH Comments: L lower extrrem- eval for clot and eval bakers cyst? size ? leaking ? Radiology - ChestBy: Mj AL, On: 23-May-2009 Intent Shasha Ba MD EKG ([id number])By: Shasha Barker MD On: 24-Apr-[address] - Brain/HeadBy: Shasha Barker MD On: 24-Apr-2009 Intent Shasha Gillespie MD EKG ([id number])By: Shasha Barker MD On: 14-Apr-2008 Intent Shasha Barker MD MAMMOGRAM, SCREENING, BOTH BREASTS On: 14-Apr-2008 Intent ([id number])By: Shasha Barker MD, MD, Dana M Ultrasound - PelvisBy: Mj AL, On: 23-Nov-2006 Intent Shasha Ba MD EKG ([id number])By: PEGGY ROSE CNP On: 10-Aug-2006 Intent Comments: [...] date: (04-07-11).Encounter Diagnosis: [facility] V73.21 (Renamed from [facility]) [facility] Office Visit On: 25-Apr-2011 [...] (311.), Fatigue (780.79), [facility] V73.21 (Renamed from [facility]) [facility] Annotation/Addendum On: 02-Oct-2010 14:02 [...] disturbance (368.9), Headache (784.0), Backache, unspecified (724.5), [facility] Office Visit On: 23-Nov-2006 [...] greater than left, use cockup splint, see lizyigrtawanda in [place]--did ncs 1year ago--show CTS, xray of hand [...]
--- OUTSIDE RECORDS SUMMARY | 2018-05-29 01:09 | XMS RPT_ITS | Continuity of Care Document ---
:1960 Author Organization [facility] Address [address] [place] [address] Phone Care Team Providers Name Role Phone [...] going to see spine surgeon/functional medicine at [facility] Dr Martínez 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 Deliveries [...] ca se this would be the cause. [facility] 06-21 ? aspiration ? imipramine Status: [...] Subclinical hyperthyroidism (E05.90, 242.90) Comments: uptake [facility]. 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 Tobacco abuse (Z72.0, 305.1) [...] MD, Shasha Whitten Start : 03-Nov-2017 Active Comments:[id number] called to [place] -er AmLODIPine Besylate 5 [...] End : 14-Jul-2017 Inactive Comments: d/c per [facility] had fatgiue and GI upset [...] End : 14-Jul-2017 Inactive Comments: d/c per [facility] LEUCOVORIN CALCIUM, 15MG (Oral Tablet) 1 [...] Start : 29-Jan-2010 End : 08-Feb-2010 Inactive Lorimor 7.5-325 MG Oral Tablet 1 (one) Tablet two times daily for 0 days Quantity: 60 {Tablet} Refills: 0 Ordered:26-Jan-2017 JACKIE Bruno Start : 26-Jan-2017 End : 26-Jan-2017 Inactive Lorimor 7.5-325 MG Oral Tablet tid prn (7.5-325 [...] Quantity: 30 {Tablet} Refills: 3 Ordered:27-Feb-2015 Slarb COVER OPERATOR, Ambreen Start : 07-Sep-2014 End : 27-Feb-2015 [...] Quantity: 30 {Tablet} Refills: 0 Ordered:27-Feb-2015 Slarb COVER OPERATOR, Ambreen Start : 05-Feb-2015 End : 27-Feb-2015 [...] days Quantity: 90 {Tablet} Refills: 3 Ordered:06-May-2016 Sahsha Barker MD, MD, Dana M Start : 06-May-2016 End : 06-May-2016 Discontinued Allergies and Adverse Reactions Name Dates Details ampicillin (Allergy) 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 Comments: as child and not remember Apiillcillijn (Allergy) 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 Clindamycin HCl *CHEMICALS* (Allergy) 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 Comments: GI side effects Past Medical History Name Dates Details Abnormal blood chemistry (R79.9, 790.6) Comments: tsh off will call [facility] and get leaves will follow Status: Resolved as of 15-May-2017 Abnormal finding on radiology exam (R93.8, 793.99) Comments: remains on levaquin and prednisone seeing Dr. Deangelo vallecillo in [place] next week. Status: Inactive as of 04-Sep-2016 [...] osteoarthritis (M19.90, 715.90) Comments: MRI one erosion Dieterich not sure iseronegative RA will be on [...] 1.[address] chest in [facility] ee with radiology at [facility] can they compare for me with [...] inside ?olyp ? adenomyosis. ? endometriosis to ob gyn Status: Inactive as of 15-Mar-2015 Perimenopausal menorrhagia [...] Procedures Procedure Dates Details ARTHROPLASTY, HIP, TOTAL (75172) Completed Comments: left @ [facility] 03-18-18 Dr. Wendy Mckoy Carpal Tunnel b/l wrist Completed Colonoscopy, Screening Completed Comments: 01-01-[address] Gutierrez Dilation and Curettage of Uterus Completed Nov-2015 kidney sx as Completed partial knee replacement -- Left Leg Completed .2010 right lobe resection-lung Completed Comments: February 2015 Date Value Details 10-Feb-2018 Lower Ext Joint Only W/WO Cont Result: Comments: See Note; NOTES: [facility] Imaging Services [address] [place] [address] Lower Ext Joint Only W/WO Cont MR#: [id number] Acct: [id number] Name: TIN BLACKWOOD Rep # : [id number] : 1960 F 57 From: Kadie Dailey MD PCP: Shasha Barker MD Status: REG CLI Study: Lower Ext Joint Only W/WO Cont Date of Exam: 02/10/18 Exam# [id number] Ordering Dr: CARLOS SHELBY M.D. STUDY: MRI [...] CC: CARLOS SHELBY M.D.; Shasha Barker MD Glass Inserter: Signed 28-Jan-2018 Chest without Contrast Result: Comments: See Note; NOTES: [facility] Imaging Services [address] [place] [address] Chest without Contrast MR#: [id number] Acct: [id number] Name: TIN BLAKCWOOD Rep #: [id number] : 1960 F 57 From: Vazquez Kaye MD PCP: Shasha Barker MD Status: REG CLI Study: Chest without Contrast Date of Exam: 01/28/18 Exam# [id number] Ordering Dr: Pelon Chatterjee MD STUDY: CT [...] 18:07 EDT , Service support , CC: Sahsha Barker MD; Pelon Chatterjee MD Glass Inserter: Signed 20-Jan-2018 Emergency Department Summary Result: Comments: See Note; NOTES: [facility] Medical Records Department [address] [place] [address] Emergency Department Summary 01/19/18 1534 MR#: [id number] Acct: [id number] Name: TIN BLACKWOOD Rep #: [id number] : 1960 57 From: Rolando Mc MD [...] Lumbar radiculopathy This note was generated with [employer] dictation software. It may contain incorrect words, [...] your Primary Care Provider. Call [facility] ([phone]) or report t o the closest Emergency Room. Call 911 if necessary. 01/20/18 0235 <Electronically signed by Rolando Mc MD> Date Rolando Mc MD Cosigner Signature (If Indicated): Date CC: Shasha Barker MD 19-Jan-2018 Spine Lumbar (Routine) Result: Comments: See Note; NOTES: [facility] Imaging Services [address] [place] [address] Spine Lumbar (Routine) MR#: [id number] Acct: [id number] Name: TIN BLACKWOOD Rep #: [id number] : 1960 F 57 From: Nabeel Bernabe MD PCP: Shasha Barker MD Status: REG ER Study: Spine Lumbar (Routine) Date of Exam: 01/19/18 Exam# [id number] Ordering Dr: Rolando Mc MD STUDY: MRI [...] , CC: Shasha Barker MD; Rolando Mc Glass Inserter: Signed 19-Jan-2018 Spine Lumbar (Routine) Result: Comments: See Note; NOTES: [facility] Imaging Services [address] [place] [address] Spine Lumbar (Routine) MR#: [id number] Acct: [id number] Name: TIN BLACKWOOD Rep #: [id number] : 1960 F 57 From: Nabeel Bernabe MD PCP: Shasha Barker MD Status: REG Study: Spine Lumbar (Routine) Date of Exam: 01/19/18 Exam# [id number] Ordering Dr: Rolando Mc MD STUDY: MRI [...] greater on the left Electronically Signed: Nabeel Bernbae MD at 19:57 EDT Tel , Service support , CC: Shasha Barker MD; Rolando Mc Glass Inserter: Signed 10-Dec-2017 Lower Ext/No Jt/w/o Result: Comments: See Note; NOTES: [facility] Imaging Services [address] [place] [address] Lower Ext/No Jt/w/o MR#: [id number] Acct: [id number] Name: TIN BLACKWOOD Rep #: [id number] : 1960 F 56 From: Julio Cannon MD PCP: Shasha Barker MD Status: REG CLI Study: Lower Ext/No Jt/w/o Date of Exam: 12/10/17 Exam# [id number] Ordering Dr: Nabeel Danielle DPM STUDY: MRI [...] CC: Shasha Barker MD; Nabeel Danielle DPM Glass Inserter: Signed 18-Nov-2017 Thyroid Uptake Single or Mult Result: Comments: See Note; NOTES: [facility] Imaging Services [address] [place] [address] Thyroid Uptake Single or Mult MR#: [id number] Acct: [id number] Name: TIN BLACKWOOD Rep #: [id number] : 1960 F 56 From: Asif Pagan DO PCP: Shasha Barker MD Status: REG CLI Study: Thyroid Uptake Single or Mult Date of Exam: 11/18/17 Exam# [id number] Ordering Dr: Shasha Barker MD C LINICAL: [...] to the presence of visualized th yroid aenfxih-D-sdwque thyroid gland. 3. No hypofunctioning, cold nodules are identified. Electronically Signed: Asif Pagan DO at 22:10 EDT Tel , Service support , CC: Shasha Barker MD Glass Inserter: Signed 16-Nov-2017 Spine Cervical (Routine) Result: Comments: See Note; NOTES: [facility] Imaging Services [address] [place] [address] Spine Cervical (Routine) MR#: [id number] Acct: [id number] Name: TIN BLACKWOOD Rep #: [id number] : 1960 F 56 From: Andrew Duran DO PCP: Shasha Barker MD Status: REG CLI Study: Spine Cervical (Routine) Date of Exam: 11/16/17 Exam# [id number] Ordering Dr: More Taylor MD STUDY: MRI [...] CC: More Taylor MD; Shasha Barker MD Glass Inserter: Signed 03-Nov-2017 Pelvis 1 or 2 Views Result: Comments: See Note; NOTES: [facility] Imaging Services [address] [place] [address] Pelvis 1 or 2 Views MR#: [id number] Acct: [id number] Name: TIN BLACKWOOD Fabby Rep #: [id number] : 1960 F 56 From: Vale Godoy MD PCP: Shasha Barker MD Status: REG CLI Study: Pelvis 1 or 2 Views Date of Exam: 11/03/17 Exam# [id number] Ordering Dr: Shasha Barker MD STUDY: X-RAY [...] at 17:01 EDT Tel , Service support [phone], CC: Shasha Barker MD Glass Inserter: Signed 27-Aug-2017 Orb Sella Post Fossa Ear w/o Result: Comments: See Note; NOTES: [facility] Imaging Services [address] [place] [address] Orb Sella Post Fossa Ear w/o MR#: [id number] Acct: [id number] Name: TIN BLACKWOOD Rep #: [id number] : 1960 F 56 From: Nir Dudley MD PCP: Shasha Barker MD Status: REG CLI Study: Orb Sella Post Fossa Ear w/o Date of Exam: 08/27/17 Exam# [id number] Ordering Dr: Dale Zuniga STUDY: CT TEMPORAL [...] CC: Beni Zuniga MD; Shasha Barker MD Glass Inserter: Signed 25-May-2017 Chest PA and Lateral Result: Comments: See Note; NOTES: [facility] Imaging Services [address] [place] [address] Chest PA and Lateral MR#: [id number] Acct: [id number] Name: TIN BLACKWOOD Rep #: [id number] : 1960 F 56 From: Aguilar Joaquin MD PCP: Shasha Barker MD Status: REG RCR Study: Chest PA and Lateral Date of Exam: 05/25/17 Exam# [id number] Ordering Dr: Pelon Chatterjee MD STUDY: X-RAY [...] Aguilar Joaquin MD at 19:35 EST Tel [phone], Service support , CC: Shasha Barker MD; Pelon Chatterjee MD Glass Inserter: Signed 15-May-2017 Chest PA and Lateral Result: Comments: See Note; NOTES: [facility] Imaging Services [address] [place] [address] Chest PA and Lateral MR#: [id number] Acct: [id number] Name: TIN BLACKWOOD Rep #: [id number] : 1960 F 56 From: Patrice Pinto MD PCP: Shasha Barker MD Status: REG CLI Study: Chest PA and Lateral Date of Exam: 05/15/17 Exam# [id number] Ordering Dr: Shasha Barker MD STUDY: X-RAY [...] Service support , CC: Shasha Barker MD Glass Inserter: Signed 21-Jan-2017 Emergency Department Summary Result: Comments: See Note; NOTES: [facility] Medical Records Department [address] [place] [address] Emergency Department Summary 01/20/17 2344 MR#: [id number] Acct: [id number] Name: TIN BLACKWOOD Rep #: [id number] : 1960 56 From: Christian Hemphill PCP: [...] for ED Patient: Disposition: [facility] Chief Complaint: Shortness of Breath Diagnosis: Pulmonary fibro sis, Hypoxemia, Elevated troponin, Pulmonary nodule, right Referrals: Shasha Barker MD [Primary Care Provider] - What to do if you have Problems For any increased pain, shortness of breath, bleedin g, nausea or vomiting, chest pain, or any unexpected problems, contact your Primary Care Provider. Call [facility] ([phone]) or report to the closest Emergency Room. Call 911 if necessary. 01/21/17 0231 <Electronically signed by Christian Hemphill> Date Christian Hemphill Cosigner Signature (If Indicated): Date CC: Shasha Barker MD 21-Jan-2017 CTA Chest W/WO Contrast Result: Comments: See Note; NOTES: [facility] Imaging Services [address] [place] [address] CTA Chest W/WO Contrast MR#: [id number] Acct: [id number] Name: TIN BLACKWOOD Rep #: [id number] : 1960 F 56 From: Stepan Mayberry MD PCP: Shasha Barker MD Status: REG ER Study: CTA Chest W/WO Contrast Date of Exam: 01/21/17 Exam# [id number] Ordering Dr: Christian Schrader DO STUDY: CTA [...] , CC: Shasha Barker MD; Christian Schrader Glass Inserter: Signed 20-Jan-2017 Chest PA and Lateral Result: Comments: See Note; NOTES: [facility] Imaging Services [address] [place] [address] Chest PA and Lateral MR#: [id number] Acct: [id number] Name: TIN BLACKWOOD Rep #: [id number] : 1960 F 56 From: Stepan Mayberry MD PCP: Shasha Barker MD Status: REG ER Study: Chest PA and Lateral Date of Exam: 01/20/17 Exam# [id number] Ordering Dr: Christian Schrader DO STUDY: X-RAY [...] , CC: Shasha Barker MD; Christian Schrader Glass Inserter: Signed 21-Nov-2016 PT D/C Summary (1) Result: Comments: See Note; NOTES: [facility] Physical Therapy [facility] [address] [place] [address]. [address] [place] [address] Fax [facility] MR#: [id number] Acct: [id number] Name: TIN BLACKWOOD Rep #: [id number] : 1960 55 From: Yury Lawrence PT, Cert. MDT, OCS Referring Dr.: Shasha Barker MD Status: REG RCR Insurance: A [facility] HP - PT D/C Summary It [...] please feel free to call me at [phone]. Thank you for the referral of this patient. Sincerely, Yury Lawrence PT, <Electronically signed by Cert. ANNA Simms PT, OCS> 11/21/16 1533 CC: Shasha Barker MD JLA Signed 22-Oct-2016 Inital Evaluation (1) - PT Result: Comments: See Note; NOTES: [facility] Physical Therapy [facility] [address] [place] [address] Fax REHABILITATION SERVICES INITIAL EVALUATION MR#: [id number] Acct: [id number] Name: TIN BLACKWOOD Rep #: [id number] : 1960 55 From: Cert. ANNA Simms PT, OCS Referring Dr.: Shasha Barker MD Status: REG RCR Insurance: [employer] Patient's Visit Information TIN BLACKWOOD is a [...] to be FAXED BACK to us at [phone] for Medicare purposes. Please let me know if there are questions or concerns regarding this plan of care. Physician Signature: Date: <Electronically signed by Yury Lawrence PT, Cert. MDT, OCS> 10/22/16 1356 CC: Shasha Barker MD AMRIN Signed F or Medicare only, by signing this I certify the plan of care. Physicians Signature Date 11-Sep-2016 Chest PA and Lateral Result: Comments: See Note; NOTES: [facility] Imaging Services [address] [place] [address] Verdana 4d Chest PA and Lateral MR#: [id number] Acct: [id number] Name: TIN BLACKWOOD Rep #: [id number] : 1960 F 55 From: Hair Rogers MD PCP: Shasha Barker MD Status: REG CLI Study: Chest PA and Lateral Date of Exam: 09/11/16 Exam# [id number] Ordering Dr: Pelon Chatterjee MD STUDY: X-RAY [...] CC: Shasha Barker MD; Pelon Chatterjee MD Glass Inserter: Signed 18-Aug-2016 Foot min 3 Views Result: Comments: See Note; NOTES: [facility] Imaging Services [address] [place] [address] Verdana 4d Foot min 3 Views MR#: [id number] Acct: [id number] Name: TIN BLACKWOOD Rep #: [id number] : 1960 F 55 From: Smith Delaney MD PCP: Shasha Barker MD Status: REG CLI Study: Foot min 3 Views Date of Exam: 08/18/16 Exam# [id number] Ordering Dr: Shasha Barker MD STUDY: X-RAY - [facility] FOOT CLINICAL: Female, 55 years old. Fell [...] Service support , CC: Shasha Barker MD Glass Inserter: Signed 05-Aug-2016 Chest 1 View (Portable) Result: Comments: See Note; NOTES: [facility] Imaging Services [address] [place] [address] Verdana 4d Chest 1 View (Portable) MR#: [id number] Acct: [id number] Name: TIN BLACKWOOD Rep #: [id number] : 1960 F 55 From: Aguilar Joaquin MD PCP: Shasha Barker MD Status: REG ER Study: Chest 1 View (Portable) Date of Exam: 08/05/16 Exam# [id number] Ordering Dr: Regino Hinson MD STUDY: X-RAY [...] Aguilar Joaquin MD at 9:42 EDT Tel [phone], Service support [phone], CC: Shasha Barker MD; Regino Hinson MD Glass Inserter: Signed 01-Jul-2016 Chest WITH Contrast Result: Comments: See Note; NOTES: [facility] Imaging Services [address] [place] [address] Verdana 4d Chest WITH Contrast MR#: [id number] Acct: [id number] Name: TIN BLACKWOOD Rep #: [id number] : 1960 F 55 From: Keyshawn Unger DO PCP: Shasha Barker MD Status: REG CLI Study: Chest WITH Contrast Date of Exam: 07/01/16 Exam# [id number] Ordering Dr: Shasha Barker MD STUDY: CT [...] 22:47 EST Tel , Service support [phone], CC: Shasha Barker MD Glass Inserter: Signed 17-Jun-2016 Spine Cervical (Routine) Result: Comments: See Note; NOTES: [facility] Imaging Services [address] [place] [address] Verda 4d Spine Cervical (Routine) MR#: [id number] Acct: [id number] Name: TIN BLACKWOOD Barbara p #: [id number] : 1960 F 55 From: Kadie Dailey MD PCP: Shasha Barker MD Status: REG CLI Study: Spine Cervical (Routine) Date of Exam: 06/17/16 Exam# [id number] Ordering Dr: More Taylor MD STUD Y: [...] MD at 11:29 EST , Service support [phone], CC: More Taylor MD; Shasha Barker MD Glass Inserter: Signed 17-Jun-2016 Spine Thoracic (Routine) Result: Comments: See Note; NOTES: [facility] Imaging Services [address] [place] [address] Verdana 4d Spine Thoracic (Routine) MR#: [id number] Acct: [id number] Name: TIN BLACKWOOD #: [id number] : 1960 F 55 From: Kadie Dailey MD PCP: Shasha Barker MD Status: REG CLI Study: Spine Thoracic (Routine) Date of Exam: 06/17/16 Exam# [id number] Ordering Dr: More Taylor MD STUD Y: [...] MD at 11:55 EST , Service support [phone], CC: Ira Taylor MD; Shasha Barker MD Glass Inserter: Signed 29-May-2016 Dexa Bone Density Study (HP) Result: Comments: See Note; NOTES: [facility] Imaging Services [address] [place] [address] Verda 4d Dexa Bone Density Study (HP) MR#: [id number] Acct: [id number] Name: ELISSA BLACKWOOD Rep #: [id number] : 1960 F 55 From: Aguilar Joaquin MD PCP: Shasha Barker MD Status: REG CL Study: Dexa Bone Density Study (HP) Date of Exam: 05/29/16 Exam# [id number] Ordering Dr: Shasha Barker MD STUDY: DUAL [...] Aguilar Joaquin MD at 13:27 EST Tel [phone], Service support [phone], CC: Shasha Barker MD Glass Inserter: Signed 29-May-2016 SCREENING MAMM (CAD), BILAT Result: Comments: See Note; NOTES: [facility] Imaging Services [address] [place] [address] Verdana 4d SCREENING MAMM (CAD), BILAT MR#: [id number] Acct: [id number] Name: TIN BLACKWOOD Rep #: [id number] : 1960 F 55 From: Aguilar Joaquin MD PCP: Shasha Barker MD Status: REG CLI Study: SCREENING MAMM (CAD), BILAT Date of Exam: 05/29/16 Exam# [id number] Ordering Dr: Yoana Barker MD MAMMOGRAPHY - [...] delay biopsy of a clinically suspicious abnormality. [id number] Electronically Signed: Aguilar Joaquin MD at 15:18 EST Tel [phone], Service support [phone], CC: Shasha Barker MD Glass Inserter: Signed 29-Nov-2015 NCS and/or EMG Patient Result: Comments: See Note; NOTES: [facility] Pulmonary Services/Neurology [address] [place] [address] NCS and/or EMG Patient MR#: [id number] Acct: [id number] Name: TIN BLACKWOOD Rep #: [id number] : 1960 54 From: Lucas Kiser MD Referring Dr: More Taylor MD Status: REG CLI Ordering Dr: More Taylor MD Date: 11/27/15 Location: [facility] Sex: F C DATE OF SE [...] radiculopathy. Lucas hand MD T: NTS JOB: [id number] 11/29/15 0959 <Electronically signed by Lucas Kiser MD> Date Lucas Kiser MD CC: More Taylor MD; Shasha Barker MD; Lucas Kiser MD Date Dictated: 11/27/15 1145 Date Transcribed: 11/27/15 1145 Glass Inserter: Signed 12-Oct-2015 Spine Lumbar (Routine) Result: Comments: See Note; NOTES: [facility] Imaging Services [address] [place] [address] Verdana 4d Spine Lumbar (Routine) MR#: [id number] Acct: [id number] Name: TIN BLACKWOOD Rep #: [id number] : 1960 F 54 From: Nabeel Bernabe MD PCP: Shasha Barker MD Status: REG CLI Study: Spine Lumbar (Routine) Date of Exam: 10/12/15 Exam# [id number] Ordering Dr: More Taylor MD STUDY: MRI [...] MD at 20:50 EDT , Service support [phone], CC: More Taylor MD; Shasha Barker MD Glass Inserter: Signed 12-Oct-2015 Lumbar Spine 2 or 3 Views Result: Comments: See Note; NOTES: [facility] Imaging Services [address] [place] [address] Verdana 4d Lumbar Spine 2 or 3 Views MR#: [id number] Acct: [id number] Name: TIN LLOYD Rep #: [id number] : 1960 F 54 From: Smith Delaney MD PCP: Shasha Barker MD Status: REG CLI Study: Lumbar Spine 2 or 3 Views Date of Exam: 10/12/15 Exam# [id number] Ordering Dr: More Watts MD STUDY: X-RAY [...] FACR at 8:27 EDT , Service support [phone], CC: More Taylor MD; Shasha Barker MD Glass Inserter: Signed 12-Oct-2015 Thoracic Spine 3 Views Result: Comments: See Note; NOTES: [facility] Imaging Services [address] [place] [address] Verda 4d Thoracic Spine 3 Views MR#: [id number] Acct: [id number] Name: TIN BLACKWOOD Rep #: [id number] : 1960 F 54 From: Smith Delaney MD PCP: Shasha Barker MD Status: REG CLI Study: Thoracic Spine 3 Views Date of Exam: 10/12/15 Exam# [id number] Ordering Dr: More Taylor MD STUDY: X-RAY [...] FACR at 8:26 EDT , Service support [phone], 0082 RAD/Thoracic Spine 3 Views IMPRESSION : Thoracic spondylosis with multilevel degenerative disc disease Electronically Signed: Smith Delaney MD, FACR at 8:26 EDT , Service support [phone], Fax CC: More Taylor MD; Shasha Barker MD Glass Inserter: Signed 03-Oct-2015 Chest PA and Lateral Result: Comments: See Note; NOTES: [facility] Imaging Services [address] [place] [address] Verbryan 4d Chest PA and Lateral MR#: [id number] Acct: [id number] Name: Hero BLACKWOOD Rep #: [id number] : 1960 F 54 From: Aguilar Joaquin MD PCP: Shasha Barker MD Status: REG CLI Study: Chest PA and Lateral Date of Exam: 10/03/15 Exam# [id number] Ordering Dr: Hortensia Mcnamara i, MD STUDY: [...] demonstrated abnormality of the visualized soft tis linad structures of the upper abdomen. IMPRESSION: Minimal degree of residual increased markings at the lung bases as compared to prior study. Electronically Si gned: Aguilar Joaquin MD at 12:56 EDT Tel [phone], Service support [phone], RAD/Chest PA and Lateral IMPRESSION: Minimal degree of res idual increased markings at the lung bases as compared to prior study. Electronically Signed: Aguilar Joaquin MD at 12:56 EDT Tel [phone], Service support [phone], Fax CC: Shasha Barker MD; Hortensia Tinajero MD Glass Inserter: Signed 05-Sep-2015 Kidney and Bladder Result: Comments: See Note; NOTES: [facility] Imaging Services [address] [place] [address] Verdana 4d Kidney and Bladder MR#: [id number] Acct: [id number] Name: KARINA BLACKWOOD Rep #: [id number] : 1960 F 54 From: Aguilar Joaquin MD PCP: Shasha Barker MD Status: REG CLI Study: Kidney and Bladder Date of Exam: 09/05/15 Exam# [id number] Ordering Dr: Sacha Barker MD STUDY: RENAL [...] Aguilar Joaquin MD at 10:56 EDT Tel [phone], Service support [phone], CC: Shasha Barker MD Glass Inserter: Signed 22-Jun-2015 Nuclear Stress Test - Chemical Result: Comments: See Note; NOTES: [facility] Imaging Services [address] [place] [address] Verdana 4d Nuclear Stress Test - Chemical MR#: [id number] Acct: [id number] N miguel: TIN BLACKWOOD Rep #: [id number] : 1960 54 From: Dusty Lund MD [...] fraction. Dusty Lund MD T: NTS JOB: [id number] 06/26/15 1259 & #60;Electronically signed by Dusty Lund MD> Date Dusty Lund MD CC: Shasha Barker MD Date Dictated: 06/22/151819 Date Transcribed: 06/22/151819 Glass Inserter: Signed 13-Jun-2015 Lumbar Spine 2 or 3 Views Result: Comments: See Note; NOTES: [facility] Imaging Services [address] [place] [address] Verdana 4d Lumbar Spine 2 or 3 Views MR#: [id number] Acct: [id number] Name: TIN LLOYD Rep #: [id number] : 1960 F 54 From: Smith Delaney MD PCP: Shasha Barker MD Status: REG CLI Study: Lumbar Spine 2 or 3 Views Date of Exam: 06/13/15 Exam# [id number] Ordering Dr: More Watts MD STUDY: X-RAY [...] FACR at 11:06 EST , Service support [phone], RAD/Lumbar Spine 2 or 3 Views IM PRESSION: Degenerative disc disease at L4-5 and L5-S1. Electronically Signed: Smith Delaney MD, FACR at 11:06 EST , Service support [phone], CC: More Taylor MD; Shasha Barker MD Glass Inserter: Signed 13-Jun-2015 Thoracic Spine 3 Views Result: Comments: See Note; NOTES: [facility] Imaging Services [address] [place] [address] Verdakelly 4d Thoracic Spine 3 Views MR#: [id number] Acct: [id number] Name: TIN BLACKWOOD Rep #: [id number] : 1960 F 54 From: Smith Delaney MD PCP: Shasha Barker MD Status: REG CLI Study: Thoracic Spine 3 Views Date of Exam: 06/13/15 Exam# [id number] Ordering Dr: More Taylor MD ADDENDUM by Smith Delaney MD on 06/14/15 at 1105 ADDENDUM TECHNIQUE: 3 view(s) o f the thoracic spine were obtained. Electronically Signed: Smith Delaney MD, FACR at 11:05 EST , Service support [phone], 06/14/15 1105 Date cc: More Taylor MD; [...] FACR at 11:05 EST , Service support [phone], RAD/Thoracic S pine 3 Views IMPRESSION: Thoracic spondylosis Electronically Signed: Smith Delaney MD, FACR at 11:05 EST , Service support [phone], CC: More Taylor MD; Shasha Barker MD Glass Inserter: Signed 13-Jun-2015 Thoracic Spine 3 Views Result: Comments: See Note; NOTES: [facility] Imaging Services [address] [place] [address] Verdana 4d Thoracic Spine 3 Views MR#: [id number] Acct: [id number] Name: TIN BLACKWOOD Rep #: [id number] : 1960 F 54 From: Smith Delaney MD PCP: Shasha Barker MD Status: REG CLI Study: Thoracic Spine 3 Views Date of Exam: 06/13/15 Exam# [id number] Ordering Dr: More Taylor MD STUDY: X-RAY [...] FACR at 11:05 EST , Service support [phone], RAD/Thoracic Spine 3 Views IMPRESSION: Thoracic spondylosis Electronic ally Signed: Smith Delaney MD, FACR at 11:05 EST , Service support [phone], CC: More Taylor MD; Shasha Barker MD Glass Inserter: Signed 08-Jun-2015 EKG (93333) Result: [MEASUREMENTS ANALYSIS] Date of Test: 06/08/2015 13:15:12; Heart Rate: 96; MN Interval: 130; QRS: 88; QT Interval: 340; Corrected QT Interval (QTc): 403; P Wave Manitou: 48; QRS Wave [place]ou: 32; T Wave [place]: 36; Blood Pressure: 120/80 [ECG DIAGNOSTIC STATEMENTS] Date of Test: 06/08/2015 13:15:12; Summary: Sinus Rhythm WITHIN NORMAL LIMITS [MEASUREMENTS ANALYSIS] Date of Test: 06/08/2015 13:14:43; Heart Ra te: 97; MN Interval: 126; QRS: 88; QT Interval: 340; Corrected QT Interval (QTc): 404; P Wave Manitou: 51; QRS Wave [place]ou: 31; T Wave [place]ou: 40; Blood Pressure: 120/80 [ECG DIAGNOSTIC STATEMENTS] Date of Supriya t: 06/08/2015 13:14:43; Summary: Sinus Rhythm WITHIN NORMAL LIMITS 27-Feb-2015 Chest PA and Lateral Result: Comments: See Note; NOTES: [facility] Imaging Services [address] [place] [address] Verdana 4d Chest PA and Lateral MR#: [id number] Acct: [id number] Name: Hero BLACKWOOD Rep #: [id number] : 1960 F 54 From: Aguilar Joaquin MD PCP: Shasha Barker MD Status: REG CLI Study: Chest PA and Lateral Date of Exam: 02/27/15 Exam# [id number] Ordering Dr: Ophelia Boogie STUDY: X-RAY CHEST [...] Aguilar Joaquin MD at 13:45 EDT Tel [phone], Service support [phone], RAD/Chest PA and Lateral IMPRES TABBY: Persistent interstitial disease in keeping with known scarring. Improved aeration of both lungs with residual infiltrate in the peripheral aspect of the right lung. Electronically Signed: Darryl Joaquin MD at 13:45 EDT Tel [phone], Service support [phone], CC: Ophelia Boogie; Shasha Barker MD Glass Inserter: Signed 05-Feb-2015 Chest PA and Lateral Result: Comments: See Note; NOTES: [facility] Imaging Services [address] [place] [address] Radiology Report MR#: [id number] Acct: [id number] Name: TIN BLACKWOOD Rep #: [id number] : 1960 F 54 From: Vega Payan MD PCP: Shasha Barker MD Status: REG CLI Study: Chest PA and Lateral Date of Exam: 02/05/15 Exam# [id number] Ordering Dr: Ophelia Boogie STUDY: X-RAY C [...] Vega Payan MD at 17:03 EDT Tel [phone], Service support [phone], [phone] RAD/Chest PA and Lateral IMPRESSION: 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 Recommend followup till clear. Electronically Signed: Vega Payan MD a t 17:03 EDT Tel [phone], Service support [phone], CC: Ophelia Boogie; Shasha Barker MD Glass Inserter: Signed 06-Nov-2014 Operative Report Result: Comments: See Note; NOTES: [facility] Medical Records Department [address] [place] [address] Operative Report MR#: [id number] Acct: [id number] Name: TIN BLACKWOOD Rep #: [id number] : 1960 53 From: Allie Bales MD PCP: Shasha Barker MD Status: [facility] DATE OF SERVICE: 11/06/2014 DATE OF SERVICE: [...] time. Allie Bales MD T: GUILLAUME JOB: [id number] 11/06/14 1429 <Electronically signed by Allie Bales MD> Raul e Allie Bales MD CC: Allie Bales MD; Shasha Barker MD Date Dictated: 11/06/14 1231 Date Transcribed: 11/06/14 1231 Glass Inserter: Signed 06-Nov-2014 Discharge Instruction Result: Comments: See Note; NOTES: [facility] Medical Records Department [address] [place] [address] Instructions for Home/Discharge Instructions 11/06/14 1204 MR#: [id number] ct: [id number] Name: TIN BLACKWOOD Rep #: [id number] : 1960 53 From: Allie Bales MD PCP: Shasha Barker MD Status: [place] [facility] [place] Diet: No Restrictions Discharge Activity: Return [...] Operative Report Result: Comments: See Note; NOTES: [facility] Medical Records Department [address] [place] [address] Operative Report 11/06/14 1202 MR#: [id number] Acct: [id number] Name: TIN BLACKWOOD Rep #: [id number] : 1960 53 From: Allie Bales MD PCP: Shasha Barker MD Status: [place] [facility] [place] Location: [place] [address] Operative Report (Blank) Date of Procedure: 11/06/14 [...] Transvaginal Non- Result: Comments: See Note; NOTES: [facility] Imaging Services [address] [place] [address] Ultrasound Report MR#: [id number] Acct: [id number] Name: TIN BLACKWOOD Rep #: [id number] : 1960 F 53 From: Aguilar Joaquin MD PCP: Shasha Barker MD Status: REG CLI Study: Transvaginal Non- Date of Exam: 07/24/14 Exam# [id number] Ordering Dr: Ophelia Boogie STUDY: ULTRASOUND OF [...] Aguilar Joaquin MD at 10:36 EDT Tel [phone], Service support [phone], CC: Ophelia Boogie; Shasha Barker MD Glass Inserter: Signed 24-Jul-2014 Pelvic (Non ) Result: Comments: See Note; NOTES: [facility] Imaging Services [address] [place] [address] Ultrasound Report MR#: [id number] Acct: [id number] Name: TIN BLACKWOOD Rep #: [id number] : 1960 F 53 From: Aguilar Joaquin MD PCP: Shasha Barker MD Status: REG CLI Study: Pelvic (Non ) Date of Exam: 07/24/14 Exam# [id number] Ordering Dr: Ophelia Boogie STUDY: ULTR ASOUND [...] Darryl Joaquin MD at 10:36 EDT Tel [phone], Service support [phone], CC: Ophelia Boogie; Shasha Barker MD Glass Inserter: Signed 05-Sep-2013 Cerv Spine 4 or 5 Views Result: Comments: See Note; NOTES: [facility] Imaging Services [address] [place] [address] Radiology Report MR#: [id number] Acct: [id number] Name: TIN BLACKWOOD Rep #: [id number] : 1960 F 52 From: Vazquez Kaye MD PCP: Shasha Barker MD Status: REG CLI Study: Cerv Spine 4 or 5 Views Date of Exam: 09/05/13 Exam# [id number] Ordering Dr: More Taylor MD STUDY: X-RAY [...] MD at 14:28 EDT , Service support [phone], RAD/Cerv Spine 4 or 5 Views IMPRESSION: Multilevel degenerative changes, 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 No significant interval change Electronically Signed: Glenn Kaye MD at 14:28 EDT , Service support [phone] , CC: More Taylor MD; Shasha Barker MD Glass Inserter: Signed 10-Feb-2013 Hand Min 3 Views Result: Comments: See Note; NOTES: [facility] Imaging Services [address] [place] [address] Radiology Report MR#: [id number] Acct: [id number] Name: TIN BLACKWOOD Rep #: [id number] : 1960 F 52 From: Julio Cannon MD PCP: Status: REG CLI Study: Hand Min 3 Views Date of Exam: 02/10/13 Exam# [id number] Ordering Dr: Shasha Barker MD STUDY: X-RAY [...] February 10, 2013 at 10:35:57 PM EDT [phone] Electronically Signed BP/BP If you are the refe rring physician and would like to consult with the radiologist who provided this interpretation, please contact Julio Cannon M.D. at [phone]. If this radiologist is unavailable, you will [...] of these documents. CC: Shasha Barker MD Glass Inserter: Signed 10-Feb-2013 Hand Min 3 Views Result: Comments: See Note; NOTES: [facility] Imaging Services [address] [place] [address] Radiology Report MR#: [id number] Acct: [id number] Name: TIN BLACKWOOD Rep #: [id number] : 1960 F 52 From: Julio Cannon MD PCP: Status: REG CLI Study: Hand Min 3 Views Date of Exam: 02/10/13 Exam# [id number] Ordering Dr: Shasha Barker MD STUDY: X-RAY [...] February 10, 2013 at 10:36:47 PM EDT [phone] Electronically Signed BP/BP If you are the referring physician and would like to consult with the radiologist who provided this interpretation, please contact Julio Cannon M.D. at [phone]. If this radiologist is unavaila alfonso, you will be directed to another radiologist to assist. If you are a patient with a question regarding this report, please contact your referring physician directly. Professional Interpretatio n Provided By: [employer], Phone , These documents contain legally protected [...] of these documents. 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 No Drug Use 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 Tobacco Use: Current every day smoker. 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 Non Smoker/No Tobacco Use Status: Inactive Tobacco use: Former smoker. Status: Inactive Smoking Status Name Dates Details Current every day smoker Vital Signs Date Test Result Details 70-Swd-662069:06 Temperature 97.4 f Comments: Method: Oral Pulse [...] 0.00 cm Results Date Description Value Details 52-Ejj-123579:00 CCP ANTIBODY (25741) Comments: PATIENT NOT FASTINGPERFORMED BY: [employer] [facility] [id number] BY: [address] [id number] CCP Antibodies IgG/IgA 5 {units} (Normal) Range: 0-19 Comments: Negative <20 Weak positive 20 - 39 Moderate positive 40 - 59 Strong positive >59 51-Rsp-469071:00 C-Reactive Protein Comments: PATIENT NOT FASTINGPERFORMED BY: [employer]70 [facility] [id number] BY: [address] [id number] ([address]) C-Reactive Protein, Quant 7.0 mg/L (Abnormal) Range: 0.0-4.9 94-Bgt-481606:00 RHEUMATOID FACTOR-QUANT Comments: PATIENT NOT FASTINGPERFORMED BY: [employer] [facility] [id number] BY: LabCoSouthern Ocean Medical CenterGxepgnxddv0275 [facility] [id number] (56454) RA Latex Turbid. <10.0 {IU/mL} (Normal) Range: 0.0-13.9 43-Uhf-791377:00 CBC with auto diff Comments: PATIENT NOT FASTINGPERFORMED BY: [facility] Vowryf8587 Villan[address]va RoadFirsthealthchidi [place] [id number] BY: LabCoJustin [place] 654267 [facility] [id number] (32123) Immature Grans (Abs) 0.0 {x10E3/uL} (Normal) Range: [...] 3.77-5.28 WBC 7.8 {x10E3/uL} (Normal) Range: 3.4-10.8 12-Lhg-106063:00 METABOLIC PANEL, Comments: PATIENT NOT FASTINGPERFORMED BY: DrillinginfoCap[facility])Zpaoks0356 [facility] [id number] BY: [address] [id number] COMPREHENSIVE (89488) ALT (SGPT) 9 [iU]/L (Normal) Range: 0-32 [...] 6-24 Glucose 101 mg/dL (Abnormal) Range: 65-99 86-Hdc-145608:00 HGB A1C (84606) Comments: PATIENT NOT FASTINGPERFORMED BY: [place]infoM[place] 5728070 [facility] [id number] BY: [address] [id number] Hemoglobin A1c 5.8 % (Abnormal) Range: 4.8-5.6 Comments: . Prediabetes: 5.7 - 6.4 Diabetes: >6.4 Glycemic control for adults with diabetes: <7.0 57-Bve-137874:00 TSH (47667) Comments: PATIENT NOT FASTINGPERFORMED BY: LabCoMegan [place] 5728070 [facility] [id number] BY: LabAna [place] 488767 [facility] [id number] TSH 0.865 {uIU/mL} (Normal) Range: 0.450-4.500 07-Toe-245621:00 T4, FREE (THYROXINE) Comments: PATIENT NOT FASTINGPERFORMED BY: [facility]CoCap[facility])Keqnda4529 [facility] [id number] BY: LabCo[address] [id number] (61525) T4,Free(Direct) 1.14 ng/dL (Normal) Range: 0.82-1.77 67-Gxw-49931:00 Tissue Biopsy See Note (Normal) Comments: [facility] [address] [place], [address] Comments: Patient: TIN BLACKWOOD : 1960 (57/F) Acct Num: [id number] Phys: Jose L Torres DDS Unit Num: [id number] Loc: [facility] Specimen: [id number] Received: 02/19/18 - 1513 Spec Typ e: [...] time of embedding. / Mahendra TC:5 CPT: 07193 HEADER OPERATION: Biopsy cheek/lip PRE-OP DIAGNOSIS: Probable fibroma TISSUE SUBMITTED: Biopsy cheek/lip MICROSCOPIC DESCRIPTION Slides are reviewed. MICROSCOPIC DI AGNOSIS Cheek/lip, biopsy: Squamous mucosa with subepithelial fibrosis, consistent with irritation fibroma. JANES:tammy 02/22/18 Signed Jarrod Holland 02/22/18 <signature on file> 5-Bmg-781512:19 HgA1C , Office (60055) HgA1C , Office 6.1 % (Normal) Range: 4.6 - 7.1 1-Ppv-234163:19 Blood Glucose , Office (95197) Blood Glucose , Office 153 (Normal) 0-Iaq-142491:19 Urinalysis, Office (79836) UA - LEUKOCYTE ESTERASE Negative (Normal) UA - NITRITE Negative (Normal) URINE UROBILINGN SRAVANI TIMED Normal mg/dL (Normal) UA - PROTEIN Negative mg/dL (Normal) UA - PH 7 (Normal) UA - BLOOD Negative (Normal) UA - SPECIFIC GRAVITY 1.010 (Normal) UA - KETONES Negative mg/dL (Normal) UA - BILIRUBIN Negative (Normal) UA - GLUCOSE Negative (Normal) 1-Szr-913733:42 CBC-Complete Blood Cnt No Diff Comments: [facility] [address] [place], [address] MPV 9.7 fL (Normal) Range: [...] 4.2-5.4 WBC 8.0 K/mm3 (Normal) Range: 4.4-11.0 5-Ijo-565234:42 Differential Comment Comments: [facility] [address] [place], [address] SMEAR COMMENT SCANNED (Normal) Comments: 1+ ANISOCYTOSIS 6-Bec-377430:42 Liver Profile Comments: Comments: [facility] [address] [place], [place], [address] D BILI 0.14 mg/dL (Normal) Range: 0.00-0.30 T BILI 0.60 mg/dL (Normal) Range: 0.20-1.00 ALT 49 U/L (Normal) Range: 13-56 ALK P 46 U/L (Normal) Range: 45-117 AST 25 U/L (Normal) Range: 15-37 GLOB 3.4 g/dL (Normal) Range: 2.2-4.2 ALB 3.6 g/dL (Normal) Range: 3.2-5.0 T PROT 7.0 g/dL (Normal) Range: 6.4-8.2 78-Ytl-371804:21 CBC-Complete Blood Cnt No Diff Comments: [facility] [address] [place], [address] MPV 10.2 fL (Normal) Range: [...] 4.2-5.4 WBC 8.0 K/mm3 (Normal) Range: 4.4-11.0 40-Gri-439454:21 Liver Profile Comments: [facility] [address] [place], [place], [address] D BILI 0.14 mg/dL (Normal) Range: 0.00-0.30 T BILI 0.80 mg/dL (Normal) Range: 0.20-1.00 ALT 50 U/L (Normal) Range: 13-56 ALK P 42 U/L (Abnormal) Range: 45-117 AST 30 U/L (Normal) Range: 15-37 GLOB 3.6 g/dL (Normal) Range: 2.2-4.2 ALB 4.0 g/dL (Normal) Range: 3.2-5.0 T PROT 7.6 g/dL (Normal) Range: 6.4-8.2 :48 HEPATIC FUNCTION PANEL Comments: PATIENT NOT FASTINGPERFORMED BY: [facility]6370 [facility] [id number] (88685) ALT (SGPT) 45 [iU]/L (Abnormal) Range: 0-32 AST (SGOT) 33 [iU]/L (Normal) Range: 0-40 Alkaline Phosphatase 39 [iU]/L (Normal) Range: 39-117 Bilirubin, Direct 0.08 mg/dL (Normal) Range: 0.00-0.40 Bilirubin, Total 0.3 mg/dL (Normal) Range: 0.0-1.2 Protein, Total 6.8 g/dL (Normal) Range: 6.0-8.5 :48 T3, FREE (TRIDOTHYRONINE) (70040) Comments: PATIENT NOT FASTINGPERFORMED BY: [facility]6370 [facility] [id number] Triiodothyronine (T3), Free 2.6 pg/mL (Normal) Range: 2.0-4.4 :48 T4, FREE (THYROXINE) (12746) Comments: PATIENT NOT FASTINGPERFORMED BY: [place] 5423970 [facility] [id number] T4,Free(Direct) 0.90 ng/dL (Normal) Range: 0.82-1.77 :48 TSH (01820) Comments: PATIENT NOT FASTINGPERFORMED BY: [place] 5423970 [facility] [id number] TSH 0.333 {uIU/mL} (Abnormal) Range: 0.450-4.500 :48 Renal function Panel (42970) Comments: PATIENT NOT FASTINGPERFORMED BY: NILE [facility] Rrmupc4950 [facility] [id number] Albumin 4.6 g/dL (Normal) Range: 3.5-5.5 Phosphorus [...] 6-24 Glucose 118 mg/dL (Abnormal) Range: 65-99 75-Xxk-373914:54 CBC-Complete Blood Cnt No Diff Comments: [facility] [address] [place], [place], [address] MPV 10.3 fL (Normal) Range: 6.2-12.0 PLT [...] 4.2-5.4 WBC 7.3 K/mm3 (Normal) Range: 4.4-11.0 22-Kzb-027530:54 Liver Profile Comments: [facility] [address] [place], [place], [id number] D BILI 0.09 mg/dL (Normal) Range: 0.00-0.30 T BILI 0.40 mg/dL (Normal) Range: 0.20-1.00 ALT 49 U/L (Normal) Range: 13-56 ALK P 58 U/L (Normal) Range: 45-117 AST 22 U/L (Normal) Range: 15-37 GLOB 3.4 g/dL (Normal) Range: 2.2-4.2 ALB 3.9 g/dL (Normal) Range: 3.2-5.0 T PROT 7.3 g/dL (Normal) Range: 6.4-8.2 58-Lvz-627098:13 Liver Profile Comments: [facility] [address] [place], [place], [address] D BILI 0.07 mg/dL (Normal) Range: 0.00-0.30 T BILI 0.40 mg/dL (Normal) Range: 0.20-1.00 ALT 49 U/L (Normal) Range: 13-56 Comments: Please note revised ALT reference range gwjeslhnq46/28/2018. ALK P 53 U/L (Normal) Range: 45-117 AST 22 U/L (Normal) Range: 15-37 GLOB 3.3 g/dL (Normal) Range: 2.2-4.2 ALB 4.0 g/dL (Normal) Range: 3.2-5.0 T PROT 7.3 g/dL (Normal) Range: 6.4-8.2 4-Rhp-280080:59 CBC-Complete Blood Cnt No Diff Comments: [facility] [address] [place], [place], [address] MPV 10.4 fL (Normal) Range: 6.2-12.0 PLT [...] 4.2-5.4 WBC 9.1 K/mm3 (Normal) Range: 4.4-11.0 0-Ues-993867:59 Erythrocyte Sed Rate Comments: [facility] [address]95 [facility] [address] [place], [place], [id number] SED RATE 15 mm/h (Normal) Range: 0-30 53-Rjy-022980:22 CBC-Complete Blood Cnt No Diff Comments: [facility] [address] [place], [place], [address] MPV 10.4 fL (Normal) Range: 6.2-12.0 PLT [...] 4.2-5.4 WBC 7.6 K/mm3 (Normal) Range: 4.4-11.0 82-Bof-190077:22 Liver Profile Comments: Comments: [facility] [address] [place], [place], [address] D BILI 0.12 mg/dL (Normal) Range: 0.00-0.30 T BILI 0.60 mg/dL (Normal) Range: 0.20-1.00 ALT 38 U/L (Normal) Range: 13-56 Comments: Please note revised ALT reference range ijsosmhbf72/28/2018. ALK P 53 U/L (Normal) Range: 45-117 AST 31 U/L (Normal) Range: 15-37 GLOB 3.2 g/dL (Normal) Range: 2.2-4.2 ALB 3.7 g/dL (Normal) Range: 3.2-5.0 T PROT 6.9 g/dL (Normal) Range: 6.4-8.2 92-Uor-493881:33 CBC-Complete Blood Cnt No Diff Comments: [facility] [address] [place], [place], [address] MPV 10.7 fL (Normal) Range: 6.2-12.0 PLT [...] 4.2-5.4 WBC 11.5 K/mm3 (Abnormal) Range: 4.4-11.0 15-Qny-210386:33 Liver Profile Comments: [facility] F[address] [facility] [address] [place], [place], [address] D BILI 0.09 mg/dL (Normal) Range: 0.00-0.30 T BILI 0.60 mg/dL (Normal) Range: 0.20-1.00 ALT 33 U/L (Normal) Range: 13-56 Comments: Please note revised ALT reference range vkcfscruc89/28/2018. ALK P 59 U/L (Normal) Range: 45-117 AST 15 U/L (Normal) Range: 15-37 GLOB 3.7 g/dL (Normal) Range: 2.2-4.2 ALB 3.8 g/dL (Normal) Range: 3.2-5.0 T PROT 7.5 g/dL (Normal) Range: 6.4-8.2 27-Dae-607174:29 CBC-Complete Blood Cnt No Diff Comments: [facility] Qhbsckuqkh4711 [facility]. [place], [place], [address] MPV 11.1 fL (Normal) Range: 6.2-12.0 PLT [...] 4.2-5.4 WBC 9.5 K/mm3 (Normal) Range: 4.4-11.0 91-Gpp-852529:29 Liver Profile Comments: [facility] Zbgwhuabkg2268 [facility]. [place], [place], [address] D BILI 0.10 mg/dL (Normal) Range: 0.00-0.30 T BILI 0.40 mg/dL (Normal) Range: 0.20-1.00 ALT 29 U/L (Normal) Range: 12-78 ALK P 51 U/L (Normal) Range: 45-117 AST 12 U/L (Abnormal) Range: 15-37 GLOB 3.6 g/dL (Normal) Range: 2.2-4.2 ALB 3.9 g/dL (Normal) Range: 3.4-5.0 Comments: Please note revised Albumin AND Globulin reference rangeeffective 2017. T PROT 7.5 g/dL (Normal) Range: 6.4-8.2 1-Jqh-880585:34 Gram Stain w/Sputum Cult Comments: PATIENT NOT FASTINGPERFORMED BY: [facility]CoCH[facility] CenterMnzqqa4978 [facility] [id number] Information: SRC:SP Rflx Gram Stain Evaluation GSACC (Normal) Comments: This specimen is of good quality and is acceptable for routinebacterial culture. Result 1 GNRF (Normal) Comments: Few gram negative rods.Few gram positive cocciRare gram negative coccobacilli Epithelial Cells Few (Normal) White Blood Cells None seen (Normal) 2-Wba-087538:34 Sputum Culture Comments: PATIENT NOT FASTINGPERFORMED BY: [facility]6370 [facility] [id number] Result 1 RRF (Normal) Comments: Routine respiratory roxanne Lower Respiratory Culture Final report (Normal) 8-Ida-244309:12 TSH (26640) Comments: PATIENT NOT FASTINGPERFORMED BY: [facility]6370 [facility] [id number] TSH 0.434 {uIU/mL} (Abnormal) Range: 0.450-4.500 3-Zmd-388875:12 T3, FREE (TRIDOTHYRONINE) (47389) Comments: PATIENT NOT FASTINGPERFORMED BY: [facility]6370 [facility] [id number] Triiodothyronine,Free,Serum 3.0 pg/mL (Normal) Range: 2.0-4.4 6-Bei-276125:12 T4, FREE (THYROXINE) (20357) Comments: PATIENT NOT FASTINGPERFORMED BY: [facility]6370 [facility] [id number]; review 05/15 T4,Free(Direct) 1.22 ng/dL (Normal) Range: 0.82-1.77 93-Lxh-486561:14 CBC-Complete Blood Cnt No Diff Comments: [facility] [address] [place], [address] MPV 10.8 fL (Normal) Range: 6.2-12.0 PLT [...] 4.2-5.4 WBC 7.7 K/mm3 (Normal) Range: 4.4-11.0 73-Uic-270933:14 Liver Profile Comments: [facility] [address] [place], [place], [address] D BILI 0.11 mg/dL (Normal) Range: 0.00-0.30 T BILI 0.60 mg/dL (Normal) Range: 0.20-1.00 ALT 31 U/L (Normal) Range: 12-78 ALK P 51 U/L (Normal) Range: 45-117 AST 22 U/L (Normal) Range: 15-37 GLOB 3.3 g/dL (Normal) Range: 2.2-4.2 ALB 3.7 g/dL (Normal) Range: 3.4-5.0 Comments: Please note revised Albumin AND Globulin reference rangeeffective 2017. T PROT 7.0 g/dL (Normal) Range: 6.4-8.2 4-Ngy-272919:36 CBC-Complete Blood Cnt No Diff Comments: BONEZZI ORDERED TSH,FT4,FT3,AND TPOSTANDING ORDER FROM SIBILIA CBC AND LIVER.[facility] [address] [place], [place], [phone] MPV 10.7 fL (Normal) Range: 6.2-12.0 PLT [...] (Normal) Range: 4.4-11.0 :36 Free T3 Comments: [facility] [address] [place], [address] FREE T3 2.6 pg/mL (Normal) Range: 2.18-3.98 7-Qwn-947573:36 Liver Profile Comments: [address], [address] D BILI 0.07 mg/dL (Normal) [...] Range: 6.4-8.2 :36 T4 Free Direct Comments: [facility] [address], [address] T4 FREE DIRECT 0.84 ng/dL (Normal) Range: 0.76-1.46 0-Pbe-578232:36 Thyroid Peroxidase AB Comments: [facility] (refer to report for specific site)refer to report for address and phone number TPO AB 5588 11 {IU/mL} (Normal) Range: 0-34 Comments: Performed at: [address] [id number] Director: Jose L Patel PhD, Phone: [phone] [id number] Thyroid Stim Hormone (TSH) Comments: [facility] [id number] [place], [address] TSH 0.36 {uIU/mL} (Normal) Range: 0.358-3.74 [id number] CBC-Complete Blood Cnt No Diff Comments: [facility] [id number] [place], [address] MPV 10.4 fL (Normal) Range: 6.2-12.0 [...] 4.2-5.4 WBC 9.2 K/mm3 (Normal) Range: 4.4-11.0 [id number] Liver Profile Comments: [facility] [id number] [place], [address] D BILI 0.11 mg/dL (Normal) Range: 0.00-0.30 T BILI 0.40 mg/dL (Normal) Range: 0.20-1.00 ALT 30 U/L (Normal) Range: 12-78 ALK P 52 U/L (Normal) Range: 45-117 AST 14 U/L (Abnormal) Range: 15-37 GLOB 3.4 g/dL (Normal) Range: 2.2-4.2 ALB 4.1 g/dL (Normal) Range: 3.4-5.0 Comments: Please note revised Albumin AND Globulin reference rangeeffective 2017. T PROT 7.5 g/dL (Normal) Range: 6.4-8.2 [id number] CBC-Complete Blood Cnt No Diff Comments: [facility] [address] [place], [address] MPV 11.1 fL (Normal) Range: 6.2-12.0 [...] 4.2-5.4 WBC 8.7 K/mm3 (Normal) Range: 4.4-11.0 45-Jli-371656:28 Liver Profile Comments: [facility] [address] [place], [address] D BILI 0.13 mg/dL (Normal) [...] T PROT 6.9 g/dL (Normal) Range: 6.4-8.2 59-Jrt-168510:57 CBC-Complete Blood Cnt No Diff Comments: [facility] [address] [place], [address] MPV 10.9 fL (Normal) Range: [...] 4.2-5.4 WBC 7.8 K/mm3 (Normal) Range: 4.4-11.0 4-Nda-846865:07 CBC-Complete Blood Cnt No Diff Comments: [facility] Alorlrmfwa9907 [facility]. [place], [place], [address] MPV 11.2 fL (Normal) Range: 6.2-12.0 PLT [...] 4.2-5.4 WBC 9.1 K/mm3 (Normal) Range: 4.4-11.0 7-Kcw-610830:07 Liver Profile Comments: [facility] Xrwwuwtapa0060 [facility]. [place], [place], [address] D BILI 0.09 mg/dL (Normal) Range: 0.00-0.30 T BILI 0.20 mg/dL (Normal) Range: 0.20-1.00 ALT 34 U/L (Normal) Range: 12-78 ALK P 55 U/L (Normal) Range: 45-117 AST 15 U/L (Normal) Range: 15-37 GLOB 3.3 g/dL (Normal) Range: 2.3-3.5 ALB 3.5 g/dL (Normal) Range: 3.4-5.0 T PROT 6.8 g/dL (Normal) Range: 6.4-8.2 66-Xxg-669556:40 URINE ALISSON CULTURE-IDENTIFICATN Comments: PERFORMED BY: [facility] Asughb6[address] [place] [id number] Information: SRC:UR (05633) Antimicrobial MIHEAD (Normal) Comments: S = Susceptible; [...] mL (Abnormal) Urine Final report Culture,Comprehensive (Abnormal) 01-Ctt-859219:47 Urinalysis, Office (08426) UA - LEUKOCYTE ESTERASE Small (Normal) UA - NITRITE Negative (Normal) URINE UROBILINGN SRAVANI TIMED Normal mg/dL (Normal) UA - PROTEIN Negative mg/dL (Normal) UA - PH 6 (Abnormal) UA - BLOOD Negative (Normal) UA - SPECIFIC GRAVITY 1.005 (Normal) UA - KETONES Negative mg/dL (Normal) UA - BILIRUBIN Negative (Normal) UA - GLUCOSE Negative (Normal) 35-Vuc-114893:58 Basic Metabolic Profile (BMP) Comments: 'TROP' Serial specimen #1, #2, #3, or #4: 1[facility] [address] [place], [place], [address] GAP 10 (Normal) Range: 5-15 CO2 25.0 [...] 7-18 GLU 92 mg/dL (Normal) Range: 70-110 98-Hmg-027381:58 CBC W/Diff, Automated Comments: [facility] Z[address]cemhw[address] [place], [place], [address] Absolute Lymph 1.13 {X10_3/ul} (Normal) Range: 0.83-4.51 [...] Serial specimen #1, #2, #3, or #4: [address] [place] [address] [address] [place], [place], [address] TROPONIN-I 0.11 ng/mL (Abnormal) Comments: TROPONIN-I EXPECTED VALUES <0.05 NEGATIVE 0.06 - 0.59 AT RISK OF AL > OR = 0.60 SUGGEST AL :56 CBC W/Diff, Automated Comments: [facility] Hsqriixcdn5712 [facility] [place]. [place], [place], [address] Absolute Lymph 1.30 {X10_3/ul} (Normal) Range: 0.83-4.51 [...] Range: 4.4-11.0 :56 Comprehensive Metabolic Profil Comments: [facility] [address]qy[address] [place], [place], [address] GAP 8 (Normal) Range: 5-15 CO2 29.0 [...] <126 mg/dLsuggests IMPAIRED HOMEOSTASIS per A.D.A. criteria. 51-Lgk-360176:39 CBC W/Diff, Automated Comments: [facility] [address] [place], [address] Absolute Lymph 1.40 {X10_3/ul} (Normal) [...] 4.2-5.4 WBC 8.8 K/mm3 (Normal) Range: 4.4-11.0 21-Wbz-618492:39 Comprehensive Metabolic Profil Comments: [facility] [address] [place], [place], [address] GAP 7 (Normal) Range: 5-15 CO2 30.0 [...] 126 mg/dLsuggests DIABETES MELLITUS per A.D.A. criteria. 80-Mcm-862816:43 Homocysteine, Plasma (85026) Comments: PATIENT NOT FASTINGPERFORMED BY: [facility]Pdnjda9539 [facility] [id number] Homocyst(e)ine, Plasma 9.3 umol/L (Normal) Range: 0.0-15.0 14-Xvi-800542:12 CRP, High Sensitivity Cardiac Comments: [facility] [address]jdp[address] [place], [place], [address] CRP HIGH SENS 1.10 mg/L (Normal) Comments: Low Relative Risk of CVD <1.0 mg/L Average Relative Risk of CVD 1.0 - 3.0 mg/L High Relative Risk of CVD >3.0 mg/L 50-Zss-130024:12 Erythrocyte Sed Rate Comments: [facility] [address] [place], [address] SED RATE 24 mm/h (Normal) Range: 0-30 7-Zpf-449312:28 CBC WITH MANUAL DIFF (08177) Comments: PATIENT NOT FASTINGPERFORMED BY: [facility] Gmzpox9351 [facility] [id number] Immature Grans (Abs) 0.0 {x10E3/uL} (Normal) Range: [...] 3.77-5.28 WBC 7.3 {x10E3/uL} (Normal) Range: 3.4-10.8 0-Pbx-099200:28 Metabolic Panel, Basic Comments: PATIENT NOT FASTINGPERFORMED BY: [facility]Co[facility] CenterWunyux8384 [facility] [id number]; will review at 09/04 appt (61906) Calcium, Serum 9.4 mg/dL (Normal) Range: 8.7-10.2 [...] Glucose, Serum 107 mg/dL (Abnormal) Range: 65-99 57-Qlx-128107:31 CBC With Differential/Platelet Comments: PATIENT NOT FASTINGPERFORMED BY: [facility]Lubwer7756 [facility] [id number] Immature Grans (Abs) 0.0 {x10E3/uL} Range: 0.0-0.1 [...] ANGELA (Normal) Comments: PATIENT NOT FASTINGPERFORMED BY: [employer] Ekxljj6901 [facility] [id number] 13:31 Comments: WRITTEN AUTHORIZATION RECEIVED.AUTHORIZATION RECEIVED FROM JACKIE BRUNO LPN 23-03-4526GLNTMA BY RADHA EMMANUEL 42-Wil-083183:31 CBC (Auto) (66815) Comments: PATIENT NOT FASTINGPERFORMED BY: [employer] Cbayhg0305 [facility] [id number] Platelets 416 {x10E3/uL} (Abnormal) Range: 150-379 RDW 17.2 % (Abnormal) Range: 12.3-15.4 MCHC 32.4 g/dL (Normal) Range: 31.5-35.7 MCH 27.0 pg (Normal) Range: 26.6-33.0 MCV 83 fL (Normal) Range: 79-97 Hematocrit 36.7 % (Normal) Range: 34.0-46.6 Hemoglobin 11.9 g/dL (Normal) Range: 11.1-15.9 RBC 4.40 {x10E6/uL} (Normal) Range: 3.77-5.28 WBC 12.7 {x10E3/uL} (Abnormal) Range: 3.4-10.8 49-Rra-720520:31 Magnesium (51464) Comments: PATIENT NOT FASTINGPERFORMED BY: [employer] Vveodv0376 [facility] [id number] Magnesium, Serum 2.0 mg/dL (Normal) Range: 1.6-2.3 92-Aqq-335235:31 Renal function Panel (16285) Comments: PATIENT NOT FASTINGPERFORMED BY: [employer] Umspmf8470 [facility] [id number] Albumin, Serum 4.1 g/dL (Normal) Range: 3.5-5.5 [...] Glucose, Serum 99 mg/dL (Normal) Range: 65-99 7-Lki-558252:16 Lactic Acid Comments: [facility] Lifsigcylx3567 [facility]. [place], [place], [address] LACTIC ACID 1.2 mmol/L (Normal) Range: 0.4-2.0 :52 BNP,B-Type NATRIURETIC PEPTIDE Comments: [facility] Zzbuefeijv3452 [facility]. [place], [place], [address] B-TYPE BRENT PEP 89.7 pg/mL (Normal) Range: 0-100 :52 CBC W/Diff, Automated Comments: [facility] [address] [place], [place], [address] Absolute Lymph 1.12 {X10_3/ul} (Normal) Range: 0.83-4.51 [...] Serial specimen #1, #2, #3, or #4: [address] [place] [address] [address] [place], [address] GAP 5 (Normal) Range: 5-15 CO2 24.0 [...] Serial specimen #1, #2, #3, or #4: [address] [address] [place], [address] TROPONIN-I 0.73 ng/mL (Abnormal) Comments: TROPONIN-I EXPECTED VALUES <0.05 NEGATIVE 0.06 - 0.59 AT RISK OF AL > OR = 0.60 SUGGEST AL :43 Base Excess ISTAT Comments: [place] [address] [place] [address] BE ISTAT 1 mmol/L (Normal) :43 Bicarbonate ISTAT Comments: [place] [address] [place] [address] HCO3 ISTAT 26 mmol/L (Normal) Range: 22-26 Comments: Site = R RadialDevice = Vent MaskFIO2 = 40Results To = ED MDTime Given = 949 :43 Blood Gas Specimen Type Comments: [place] [address] [place] [address] BLD GAS TYPE ART (Normal) :43 pCO2 - ISTAT 40.0 {mmHg} (Normal) Comments: [place] [address] [place] [address] Range: 35-45 :43 pH - I-STAT 7.42 (Normal) Comments: [place] [address] [address] [place] [address] Range: 7.35-7.45 :43 PO2 I-STAT 68 {mmHG} (Abnormal) Comments: [place] [address] [address] [place] [address] Range: 75-100 :43 SO2 ISTAT 94 % (Abnormal) Comments: [place] [address] [place] [address] Range: 95-99 :43 Total Carbon Dioxide ISTAT Comments: [place] [address] [place] [address] TOTAL CO2 ISTAT 27 mmol/L (Normal) :06 CBC W/Diff, Automated Comments: [place] [address] [place], [address] Absolute Lymph 1.60 {X10_3/ul} (Normal) Range: [...] 4.2-5.4 WBC 6.3 K/mm3 (Normal) Range: 4.4-11.0 75-Dyy-111992:06 Comprehensive Metabolic Profil Comments: [facility] [address] [place], [place], [address] GAP 5 (Normal) Range: 5-15 CO2 30.0 [...] 7-18 GLU 102 mg/dL (Normal) Range: 70-110 71-Dfl-660920:30 PAP I-G w/rfx hrHPV Comments: CYTOLOGY INFORMATION:- CLINICAL INFORMATION:- DATE LMP/MENOPAUSE: MENOPAUSE- COLLECTION VIAL: Thin Prep Vial- WHEEL FITTER SOURCE: CERVICAL/ENDOCERVICAL- COLLECTION TECHNIQUE: BRUSH/SPATULACYTOLOGY INFORMATION :- CLINICAL INFORMATION:- DATE LMP/MENOPAUSE: MENOPAUSE- COLLECTION VIAL: Thin Prep Vial- WHEEL FITTER SOURCE: CERVICAL/ENDOCERVICAL- COLLECTION TECHNIQUE: BRUSH/SPATULASpecimen Comment: [id number] saira Comment: No. of containers..01 CYTYC Thin Prep VialLabCorp (refer to report for specific site)refer to report for address and phone number HPV RFLX Comment (Normal) Comments: The HPV DNA reflex criteria were not met with this specimenresult therefore, no HPV testing was performed.Performed at: [address] [id number] Director: Selene Munoz MD, Phone: [phone] PAPSMR Comment (Normal) Comments: The Pap smear [...] system. PERFORM Comment (Normal) Comments: Dioni Pereira, Video Journalist (ASCP) ADEQ Comment (Normal) Comments: Satisfactory for evaluation. Endocervical and/or squamous metaplasticcells (endocervical component) are present. DIAGN Comment (Normal) Comments: NEGATIVE FOR INTRAEPITHELIAL LESION AND MALIGNANCY. 41-Clp-075297:09 CBC W/Diff, Automated Comments: [facility] [address] [place], [place], [address] Absolute Lymph 1.61 {X10_3/ul} (Normal) Range: 0.83-4.51 [...] 4.2-5.4 WBC 7.3 K/mm3 (Normal) Range: 4.4-11.0 50-Gee-782830:09 Comprehensive Metabolic Profil Comments: [facility] [address] [place], [address] GAP 8 (Normal) Range: 5-15 CO2 30.0 [...] 7-18 GLU 90 mg/dL (Normal) Range: 70-110 45-Ddb-191420:09 Lipid Profile Comments: [facility] [address] [place], [place], [address] VLDL 11 mg/dL (Normal) Range: 5-40 LDL [...] 200-240 mg/dL Borderline >240 mg/dL High Risk 05-Pxx-107162:56 Ferritin (07315) Comments: PATIENT NOT FASTINGPERFORMED BY: [facility] Rrpaxl[address] [place] [id number] Information: NURSE DRAW Ferritin, Serum 35 ng/mL (Normal) Range: 15-150 58-Qva-339508:06 Lipid Profile Comments: [facility] [address]vgt[address] [place], [place], [address] VLDL 14 mg/dL (Normal) Range: 5-40 LDL [...] 200-240 mg/dL Borderline >240 mg/dL High Risk 46-Mqg-879189:11 CBC W/Diff, Automated Comments: [facility] [address]em[address]hgjr[address] [place], [place], [address] Absolute Lymph 1.06 {X10_3/ul} (Normal) Range: 0.83-4.51 [...] 4.2-5.4 WBC 9.4 K/mm3 (Normal) Range: 4.4-11.0 80-Mzy-294588:11 Comprehensive Metabolic Profil Comments: [facility] Papaqubolm[address] [place], [place], [address] GAP 9 (Normal) Range: 5-15 CO2 29.0 [...] 7-18 GLU 100 mg/dL (Normal) Range: 70-110 87-Nrv-252623:59 CBC W/Diff, Automated Comments: [facility] Eg[address]jgh[address] [place], [address] Absolute Lymph 1.33 {X10_3/ul} (Normal) Range: 0.83-4.51 [...] 4.2-5.4 WBC 3.7 K/mm3 (Abnormal) Range: 4.4-11.0 43-Mpu-172022:59 Comprehensive Metabolic Profil Comments: [facility] [address] [place], [address] GAP 7 (Normal) Range: 5-15 [...] 7-18 GLU 84 mg/dL (Normal) Range: 70-110 4-Tpk-976874:15 CBC W/Diff, Automated Comments: [facility] [address]omkt[address] [place], [address] Absolute Lymph 0.51 {X10_3/ul} (Abnormal) [...] 4.2-5.4 WBC 9.8 K/mm3 (Normal) Range: 4.4-11.0 3-Wfo-970892:15 Comprehensive Metabolic Profil Comments: [facility] [address]rzucc[address] [place], [place], [address] GAP 3 (Abnormal) Range: 5-15 CO2 28.0 [...] 7-18 GLU 107 mg/dL (Normal) Range: 70-110 4-Jjs-605371:15 Quantiferon TB-Gold Comments: [facility] (refer to report for specific site)refer to [...] go to cdc.gov/tb for further details.Performed at: [address] [id number] Director: Jose L Patel PhD, Phone: [phone] QFT AG - NIL 0 {IU/mL} (Normal) [...] of cells for the productionof interferon gamma. 2-Bpo-696056:43 CBC W/Diff, Automated Comments: [facility] [address]sukp[address] [place], [place], [address] Absolute Lymph 0.86 {X10_3/ul} (Normal) Range: 0.83-4.51 [...] 4.2-5.4 WBC 6.3 K/mm3 (Normal) Range: 4.4-11.0 2-Wla-548096:43 Comprehensive Metabolic Profil Comments: [facility] Ycxqetinap[address] [place], [place], [address] GAP 9 (Normal) Range: 5-15 CO2 29.0 [...] <126 mg/dLsuggests IMPAIRED HOMEOSTASIS per A.D.A. criteria. 93-Omt-364498:00 CORTISOL SERUM Comments: [facility] [address] [place], [place], [address] CORTISOL 11.80 ug/dL (Normal) Range: 3.09-22.40 Comments: Adult (AM) 4.30 - 22.40 ug/dL Adult (PM) 3.09 - 16.66 ug/dL 68-Eya-039920:00 DHEA Sulfate Comments: Has Patient had Radioactive Injection for X-ray?: N[facility] (refer to report for specific site)refer to report for address and phone number DHEA SULF 4020 35.6 ug/dL (Abnormal) Range: 41.2-243.7 Comments: Performed at: [address] [id number] Director: Jose L Patel PhD, Phone: [phone] 22-Vve-040909:00 Estradiol Comments: [facility] [address] [place], [address] ESTRADIOL 11.4 pg/mL (Normal) Comments: [...] SHOULD BE USED TO DETERMINE ESTRADIOL CONCENTRATION. 81-Ldv-383480:00 Free T3 Comments: [facility] [address]uw[address] [place], [address] FREE T3 3.1 pg/mL (Normal) Range: 2.18-3.98 20-Chn-637905:00 Hemoglobin A1c Comments: [facility] Z[address]we[address]cfcw[address] [place], [address] HGB A1C 6.1 % (Normal) Range: 4.2-6.3 33-Xzi-384658:00 Progesterone Level Comments: [facility] Qtsdhwjkft33[address], [address] Progesterone 2.17 ng/mL (Normal) Comments: Progesterone Reference Table: UNITS Female: Follicular 0.15 - 1.40 ng/mL Luteal 3.34 - 25.56 ng/mL Mid-luteal 4.44 - 28.03 ng/mL Postmenopausal 0.0 - 0.73 ng/mL : 1st Trimester 11.22 - 90.00 ng /mL 2nd Trimester 25.55 - 89.40 ng/mL 3rd Trimester 48.40 -422.50 ng/mL 33-Lno-460519:00 T4 Free Direct Comments: [facility] [address] [place], [address] T4 FREE DIRECT 0.80 ng/dL (Normal) Range: 0.76-1.46 35-Ylq-604490:00 Testosterone, Serum Total Comments: [facility] [address]iiq[address] [place], [address] Testosterone 20 ng/dL (Normal) Range: 14-76 45-Lpi-864899:00 Thyroid Stim Hormone (TSH) Comments: [facility] [address] [place], [place], [address] TSH 0.46 {uIU/mL} (Normal) Range: 0.358-3.74 77-Xnx-663413:30 PAP I-G w/rfx hrHPV Comments: CYTOLOGY INFORMATION:- CLINICAL INFORMATION:- DATE LMP/MENOPAUSE: MENOPAUSE- COLLECTION VIAL: Thin Prep Vial- WHEEL FITTER SOURCE: CERVICAL/ENDOCERVICAL- COLLECTION TECHNIQUE: BRUSH/SPATULASpecimen Comment: [id number] Comment: No. of containers..01 CYTYC Thin Prep VialLabCorp (refer to report for specific site)refer to report for address and phone number HPV RFLX Comment (Normal) Comments: The HPV DNA reflex criteria were not met with this specimenresult therefore, no HPV testing was performed.Performed at: [address] [place] [id number] Director: Seleen Munoz MD, Phone: [phone] PAPSMR Comment (Normal) Comments: The Pap smear [...] system. PERFORM Comment (Normal) Comments: Luisa [place], Video Journalist (ASCP) ADEQ Comment (Normal) Comments: Satisfactory for evaluation. No endocervical component is identified. DIAGN Comment (Normal) Comments: NEGATIVE FOR INTRAEPITHELIAL LESION AND MALIGNANCY. :26 D-Dimer Quantitative (DVT/PE) Comments: [facility] [address] [place], [address] D-DIMER QUANT 0.30 {FEU/ug/m} (Normal) Range: 0.27-0.49 Comments: NORMAL D-Dimer level (<0.50) indicates no DVT or PE. :25 CK-MB Quantitative and Index Comments: 'TROP' Serial specimen #1, #2, #3, or #4: INT'CKMB' Serial Specimen #1, #2 or #3? [address] [place] [address] [place], [address] CKRI 1.3 % (Normal) Range: 0.0-1.4 Comments: RELATIVE INDEX >1.5% IS PRESUMPTIVELY POSITIVE CPKMB 2.2 ng/mL (Normal) Range: 0.0-5.0 Comments: CK-MB and RI Interpretation MB Relative Index Non-AMI <or= 5 NA Indeterminate > 5 <or= 4 AMI > 5 > 4 CPK TOTAL 170 U/L (Normal) Range: 26-192 :25 Troponin I (72571) Comments: 'TROP' Serial specimen #1, #2, #3, or #4: INT'CKMB' Serial Specimen #1, #2 or #3? [address] [place] [address] [place], [address] TROPONIN-I < 0.02 ng/mL (Normal) Comments: TROPONIN-I EXPECTED VALUES <0.05 NEGATIVE 0.06 - 0.59 AT RISK OF AL > OR = 0.60 SUGGEST AL 3-Fzy-768003:13 Urinalysis, Office (32202) UA - LEUKOCYTE ESTERASE Negative (Normal) UA - NITRITE Negative (Normal) URINE UROBILINGN SRAVANI TIMED Normal mg/dL (Normal) UA - PROTEIN Negative mg/dL (Normal) UA - PH 6 (Abnormal) UA - BLOOD Negative (Normal) UA - SPECIFIC GRAVITY 1.020 (Normal) UA - KETONES Negative mg/dL (Normal) UA - BILIRUBIN Negative (Normal) UA - GLUCOSE Negative (Normal) 99-Vfn-315243:41 CBC W/Diff, Automated Comments: [facility] [address]fq[address] [place], [place], [address] Absolute Lymph 1.18 {X10_3/ul} (Normal) Range: 0.83-4.51 [...] 4.2-5.4 WBC 8.8 K/mm3 (Normal) Range: 4.4-11.0 75-Eit-675094:41 Comprehensive Metabolic Profil Comments: [facility] [address] [place], [place], [address] GAP 9 (Normal) Range: 5-15 CO2 27.0 [...] 7-18 GLU 98 mg/dL (Normal) Range: 70-110 8-Ziw-997729:41 CBC W/Diff, Automated Comments: [facility] [address]egsff[address] [place], [place], [address] Absolute Lymph 1.54 {X10_3/ul} (Normal) Range: 0.83-4.51 [...] 4.2-5.4 WBC 6.6 K/mm3 (Normal) Range: 4.4-11.0 8-Bli-885160:41 Comprehensive Metabolic Profil Comments: [facility] [address] [place], [place], [address] GAP 7 (Normal) Range: 5-15 CO2 30.0 [...] 7-18 GLU 102 mg/dL (Normal) Range: 70-110 93-Thv-714492:44 CBC W/Diff, Automated Comments: [facility] [address]wfxd[address] [place], [place], [address] Absolute Lymph 3.85 {X10_3/ul} (Normal) Range: 0.83-4.51 [...] 4.2-5.4 WBC 10.7 K/mm3 (Normal) Range: 4.4-11.0 14-Dcx-046851:44 Comprehensive Metabolic Profil Comments: ORDERED LIPID,CMPDR.LIOR ORDERED CMP,CBCDBl[facility]ard Valley Health [facility] Affideocvl1775 [place], [place], [address] GAP 8 (Normal) Range: 5-15 CO2 29.0 [...] 7-18 GLU 78 mg/dL (Normal) Range: 70-110 89-Tpd-951922:44 Lipid Profile Comments: ORDERED LIPID,CMPDRMERA ORDERED CMP,CBCDWooLicking [facility] Hospital [address]vveqjti40[address] [place], [place], [address] VLDL 33 mg/dL (Normal) Range: 5-40 LDL [...] 200-240 mg/dL Borderline >240 mg/dL High Risk 1-Jwx-215130:46 CBC W/Diff, Automated Comments: [facility] Aecmcgitoi2520 [facility] [address]. [place], [place], [address] Absolute Lymph 1.65 {X10_3/ul} (Normal) Range: 0.83-4.51 [...] 4.2-5.4 WBC 12.5 K/mm3 (Abnormal) Range: 4.4-11.0 1-Alo-409591:46 Comprehensive Metabolic Profil Comments: [facility] [address]wxc[address] [place], [place], [address] GAP 9 (Normal) Range: 5-15 CO2 31.0 [...] 126 mg/dLsuggests DIABETES MELLITUS per A.D.A. criteria. 5-Ncb-139635:46 Culture, Sputum Comments: [facility] [address] [place], [place], [address] CUSP See Note (Normal) Comments: Gram StainAcceptable Specimen? Yes (<25 Epithelial cells per/lpf) Gram Stain Rare Gram positive rods 3+ Gram positive cocci 3+ White Blood Cells Rare Epithelial cells Resp. CultureMixed normal respiratory roxanne. No Streptococcus pneumoniae, beta-hemolytic Streptococcus or Staphylococcus aureus isolated. 37-Nfn-937595:13 CBC W/Diff, Automated Comments: Test performed at:[facility] [address] [place], [place] [address] Absolute Lymph 1.78 {X10_3/ul} (Normal) Range: 0.83-4.51 [...] 4.2-5.4 WBC 5.3 K/mm3 (Normal) Range: 4.4-11.0 50-Lni-469006:13 Comprehensive Metabolic Profil Comments: Test performed at:[facility] Gatcffvsrl7068 [facility]. [place], [place] [address] GAP 7 (Normal) Range: 5-15 CO2 26.0 [...] Comments: Please note revised CREATININE reference range hglxapaea85/22/2015. BUN 18 mg/dL (Normal) Range: 7-18 GLU 124 mg/dL (Abnormal) Range: 70-110 Comments: Fasting Glucose result from 110 to <126 mg/dLsuggests IMPAIRED HOMEOSTASIS per A.D.A. criteria. 3-Qei-370303:5 ENDOMETRIAL BX/CURETTINGS See Note (Normal) Comments: Test performed at:[facility] Xnhpffzeng4710 [facility] [place] [address] 4 Comments: Patient: TIN BLACKWOOD : 1960 (53/F) Acct Num: [id number] Phys: Allie Bales MD Unit Num: [id number] Loc: [facility] [place]: [id number] Received: 11/06/14 - 1230 Spec Type: ENDOM BX/C TISSUES TISSUES: GROSS DESCRIPTION Received is one container labeled with the patient name and designated endometrial curettings. The specimen consists of multiple fragments o f hemorrhagic soft tissue measuring in aggregate 5 x 2 x 0.2 cm. The entire specimen is submitted in two cassettes. / SJ:yi 11/06/14 TC:5 CPT: 34494 HEADER OPERATION: Hysteroscopy, diagnosti c, D AND C PRE-OP DIAGNOSIS: Menorrhagia, thickened endometrium TISSUE SUBMITTED: Endometrial curettings MICROSCOPIC DIAGNOSIS Endometrium, curettings: Secretory endometrium. AM:s l 11/07/14 Signed Michael [facility] 11/07/14 <signature on file> 1-Yog-454007:48 Partial Thromboplast Time Comments: Test performed at:[facility] [address] [place], [place] [address] PTT 26.6 s (Normal) Range: 24.1-36.2 3-Jgy-542711:48 Prothrombin Time w/INR Comments: Test performed at:[facility] [id number] [place], [place] [address] INR 0.9 (Normal) PROTIME 12.2 s (Normal) Range: 11.7-14.9 [id number] ,Urine Comments: Order Date: 11/06/14Has pt arrived? YTest performed at:[facility] [id number] [place] [id number] HCGUQUAL Negative {Negative} (Normal) Comments: Very dilute urine specimens, as indicated by a low specificgravity, may not contain employee's representative levels of hCG.If is still suspected, a first morning urinespecimen should be collected 48 hours later and tested. :26 Estradiol Comments: Test performed at:[facility] [id number] [place], [place] [id number] ESTRADIOL 13.1 pg/mL (Normal) Comments: NORMAL REFERENCE RANGES FEMALE FOLLICULAR 21.4 - 164.8 pg/mL MID-CYCLE PEAK 49.9 - 367.2 pg/mL LUTEAL 40.2 - 259.0 pg/mL POST-MENOPAUSAL ON MHT <11.0 - 462.1 pg/mL NOT ON MHT <11.0 - 58.3 pg/mL MALE <11.0 - 52 .5 pg/mLNEW TEST METHOD AND REFERENCE RANGE SEPTEMBER 22, 2011:26 Free T3 Comments: Test performed at:[facility] [id number] [place], [place] [id number] FREE T3 3.0 pg/mL (Normal) Range: 2.18-3.98 :26 Hemoglobin A1c Comments: Test performed at:[facility] [id number] [address] ; ordered by other doctor HGB A1C 5.7 % (Normal) Range: 4.2-6.3 :26 Progesterone Level Comments: Test performed at:[facility] V[address]wg[address] [place] [address] Progesterone 0.34 ng/mL (Normal) Comments: Progesterone Reference Table: UNITS Female: Follicular 0.15 - 1.40 ng/mL Luteal 3.34 - 25.56 ng/mL Mid-luteal 4.44 - 28.03 ng/mL Postmenopausal 0.0 - 0.73 ng/mL : 1st Trimester 11.22 - 90.00 ng /mL 2nd Trimester 25.55 - 89.40 ng/mL 3rd Trimester 48.40 -422.50 ng/mL :26 T4 Free Direct Comments: Test performed at:[facility] Lwl[address]ucyg[address] [place] [address] T4 FREE DIRECT 0.77 ng/dL (Normal) Range: 0.76-1.46 :26 Testosterone, Serum Total Comments: Test performed at:[facility] [address]im[address]qg[address] [place] [address] Testosterone 30 ng/dL (Normal) Range: 14-76 Comments: ADDENDA: ordered by Dr. Bales :26 Thyroid Stim Hormone (TSH) Comments: Test performed at:[facility] [address]mdjf[address] [place] [address] TSH 0.84 {uIU/mL} (Normal) Range: 0.358-3.74 0-Tyl-762417:03 17-Hydroxypregnenolone, MS Comments: PATIENT NOT FASTINGPERFORMED BY: [facility]Now70 [facility] [place] [id number] BY: ES [employer] Jcnyjgiwgpisv6479 [facility] [id number] 17 [place] Pregnenolone, 14 ng/dL (Abnormal) Comments: Reference Range:Adults: 53 - 357 Serum, MS hCG,Beta Negative m[iU]/mL Comments: PATIENT NOT FASTINGPERFORMED BY: [employer]6370 [facility] [place] [id number] BY: ES [employer] Ylngajioetpjs6010 [facility] [id number] 2:03 Subunit,Qual,Serum (Normal) Prolactin 10.9 ng/mL (Normal) Comments: PATIENT NOT FASTINGPERFORMED BY: Vi[employer]UAL INTER[employer]iVE LabGeoli.st Classifieds Ncpvcw1184 [facility] [place] [id number] BY: ES [employer] Azjapjayurupn1802 [facility] [id number] 2:03 Range: 4.8-23.3 :03 Prothrombin Time (PT) Comments: PATIENT NOT FASTINGPERFORMED BY: Vi[employer] INTERACTiVE LabMyntrarp Pzrvvr3296 [facility] [place] [id number] BY: ES [employer] Fnasigpzkgpev8084 [facility] [id number] 11Clinical Information: [id number], [id number] Prothrombin Time 10.5 {sec} (Normal) Range: 9.1-12.0 INR 1.0 (Normal) Range: 0.8-1.2 Comments: Reference interval is for non-anticoagulated patients. . Suggested INR therapeutic range for Vitamin K anta gonist therapy: Standard Dose (moderate intensity therapeutic range): 2.0 - 3.0 Higher intensity therapeutic range 2.5 - 3.5 1-Wpt-266326:03 PTT, Activated Comments: PATIENT NOT FASTINGPERFORMED BY: [address] [id number] BY: [employer] [address] [id number] aPTT 27 {sec} (Normal) Range: 24-33 Comments: This test has not been validated for monitoring unfractionated heparintherapy. aPTT-based therapeutic ranges for unfractionated heparintherapy have not been established. For general guidelines onHeparin monitoring, refer to the [facility] Directory of Services. 5-Tfx-268010:03 Thyroxine (T4) Free, Comments: PATIENT NOT FASTINGPERFORMED BY: [address] [id number] BY: [employer] [address] [id number] Direct, S T4,Free(Direct) 0.87 ng/dL (Normal) Range: 0.82-1.77 :0 TSH 0.723 {uIU/mL} Comments: PATIENT NOT FASTINGPERFORMED BY: [address] [id number] BY: [employer] [address] [id number] 3 (Normal) Range: 0.450-4.500 2-Cen-989615:01 CBC W/Diff, Automated Comments: Test performed at:[facility] [address]xmamrsxuf[address] [place], [place] [id number] Absolute Lymph 1.51 {X10_3/ul} (Normal) Range: 0.83-4.51 [...] 4.2-5.4 WBC 5.7 K/mm3 (Normal) Range: 4.4-11.0 8-Nbv-336604:01 Comprehensive Metabolic Profil Comments: Test performed at:[facility] Qivtyppqyx[address] [place], [place] [address] GAP 7 (Normal) Range: 5-15 CO2 28.0 [...] 7-18 GLU 94 mg/dL (Normal) Range: 70-110 91-Feg-545830:09 Urine Test, Office (31982) Urine Test, Office Negative (Normal) 74-Tsm-978314:09 Urinalysis, Office (16527) UA - LEUKOCYTE ESTERASE Negative (Normal) UA - NITRITE Negative (Normal) URINE UROBILINGN SRAVANI TIMED Normal mg/dL (Normal) UA - PROTEIN Negative mg/dL (Normal) UA - PH 6 (Abnormal) UA - BLOOD Negative (Normal) UA - SPECIFIC GRAVITY 1.025 (Normal) UA - KETONES Negative mg/dL (Normal) UA - BILIRUBIN Negative (Normal) UA - GLUCOSE Negative (Normal) 2-Lmy-439159:14 CBC W/Diff, Automated Comments: Test performed at:[facility] Qyagldbyag[address] [place] [address] Absolute Lymph 2.05 {X10_3/ul} (Normal) [...] 4.2-5.4 WBC 8.6 K/mm3 (Normal) Range: 4.4-11.0 9-Jaq-389136:14 Comprehensive Metabolic Profil Comments: Test performed at:[facility] Imnstfmjic22[address] [place] [address] GAP 2 (Abnormal) Range: 5-15 CO2 32.0 [...] 7-18 GLU 92 mg/dL (Normal) Range: 70-110 6-Cbi-791622:31 CBCD ALC 1.45 {X10_3/ul} (Normal) Range: 0.83-4.51 [...] 4.2-5.4 WBC 7.6 K/mm3 (Normal) Range: 4.4-11.0 8-Tdk-738144:45 CMP GAP 8 (Normal) Range: 5-15 CO2 [...] Range: 70-110 :50 Blood Glucose , Office (20197) Blood Glucose , Office 143 (Normal) Comments: non-fasting :50 HgA1C , Office (85974) HgA1C , Office 5.8 % (Normal) Range: 4.6 - 7.1 :36 ISIAH Negative (Normal) Comments: Performed at: - [facility] [id number] Director: Ricardo Pace MD, Phone: [phone] :[phone] CCP < 1 {units} (Normal) Range: 0-19 Comments: Negative <20Weak positive 20 - 39Moderate positive 40 - 59Strong positive >59Performed at: - [facility] [address] [id number] Director: Stepan Hernandez MD, Phone: [phone] :[phone] CRP 3.36 mg/L (Abnormal) Range: 0.0-3.0 [...] (Normal) Range: 0.358-3.74 :46 HgA1C , Office (94474) HgA1C , Office 5.7 % (Normal) Range: 4.6 - 7.1 :46 Blood Glucose , Office (54212) Blood Glucose , Office 106 (Normal) :51 HgA1C , Office (94144) HgA1C , Office 5.8 % (Normal) Range: 4.6 - 7.1 :51 Blood Glucose , Office (73285) Blood Glucose , Office 122 (Normal) Comments: non-fasting :05 HgA1C , Office (81731) HgA1C , Office 5.8 % (Normal) Range: 4.6 - 7.1 :04 Blood Glucose , Office (71115) Blood Glucose , Office 137 (Normal) :25 HgA1C , Office (76126) HgA1C , Office 5.7 % (Normal) Range: 4.6 - 7.1 :25 Blood Glucose , Office (82422) Blood Glucose , Office 96 (Normal) :33 HEPATIC FUNCTION PANEL Comments: PATIENT NOT FASTINGPERFORMED BY: NILE [facility]6370 [facility] [id number] (90403) Alkaline Phosphatase, S 46 [iU]/L (Normal) Range: [...] Comments: PATIENT NOT FASTINGPERFORMED BY: NILE [facility] Mfxavg3410 [place] [id number] Information: [id number] DRAW FEE [id number] (16228) Albumin, Serum 4.3 g/dL (Normal) Range: 3.5-5.5 [...] Glucose, Serum 105 mg/dL (Abnormal) Range: 65-99 44-Pmh-096910:04 Urinalysis, Office (63058) UA - BILIRUBIN Negative (Normal) UA - BLOOD Negative (Normal) UA - GLUCOSE Negative (Normal) UA - KETONES Negative mg/dL (Normal) UA - LEUKOCYTE ESTERASE Negative (Normal) UA - NITRITE Negative (Normal) UA - PH 6.0 (Normal) UA - PROTEIN Negative mg/dL (Normal) UA - SPECIFIC GRAVITY 1.025 (Normal) URINE UROBILINGN SRAVANI TIMED Normal mg/dL (Normal) 78-Myw-074886:41 HgA1C , Office (23418) HgA1C , Office 5.9 % (Normal) Range: 4.6 - 7.1 :42 LQDPAP [id number] PAPSMR Comment (Normal) Comments: The Pap smear [...] no HPV testing was performed. .Performed at: [address] [id number] Director: John Echeverria MD, Phone: [phone] COMM . (Normal) DIAGN Comment (Normal) Comments: NEGATIVE FOR INTRAEPITHELIAL LESION AND MALIGNANCY.Satisfactory for evaluation. Endocervical and/or squamous metaplasticcells (endocervical component) are present.Holly Reed, Video Journalist (ASCP)T his liquid based ThinPrep(R) pap test was screened withthe use of an image guided system. 56-Uch-399242:20 TSH (95511) Comments: PATIENT WAS FASTINGPERFORMED BY: [facility]6370 [facility] [id number] TSH 2.160 {uIU/mL} (Normal) Range: 0.450-4.500 32-Bpm-132355:20 MICROALBUMIN: CREATININE RATIO Comments: PATIENT WAS FASTINGPERFORMED BY: [facility]6370 [facility] [id number] (54899) AND (06977) Microalb/Creat Ratio 2.3 {mg/g_creat} (Normal) Range: 0.0-30.0 Microalbumin, Urine 1.6 ug/mL (Normal) Range: 0.0-17.0 Creatinine, Urine 70.5 mg/dL (Normal) Range: 15.0-278.0 46-Gvr-846204:20 METABOLIC PANEL, COMPREHENSIVE Comments: PATIENT WAS FASTINGPERFORMED BY: [facility]6370 [facility] [id number] (13958) ALT (SGPT) 19 [iU]/L (Normal) Range: 0-40 [...] Glucose, Serum 109 mg/dL (Abnormal) Range: 65-99 95-Yig-025595:20 LIPID PANEL (50730) Comments: PATIENT WAS FASTINGPERFORMED BY: [employer]6370 [facility] [id number] LDL/HDL Ratio 1.4 {ratio_units} (Normal) Range: 0.0-3.2 LDL Cholesterol Calc 108 mg/dL (Abnormal) Range: 0-99 VLDL Cholesterol Zaria 16 mg/dL (Normal) Range: 5-40 HDL Cholesterol 78 mg/dL (Normal) Comments: According to ATP-III Guidelines, HDL-C >59 mg/dL is considered anegative risk factor for CHD. Cholesterol, Total 202 mg/dL (Abnormal) Range: 100-199 Triglycerides 82 mg/dL (Normal) Range: 0-149 21-Uhe-284340:20 CBC WITH MANUAL DIFF Comments: PATIENT WAS FASTINGPERFORMED BY: [facility] [id number] Information: ADD [id number] AND DRAW FEE 99 5506 (45015) Immature Grans (Abs) 0.0 {x10E3/uL} (Normal) Range: [...] 3.80-5.10 WBC 5.2 {x10E3/uL} (Normal) Range: 4.0-10.5 04-Yso-732074:05 URINE ALISSON CULTURE-SRAVANI COL Comments: PATIENT NOT FASTINGPERFORMED BY: NILE [facility] Febdsu4345 [facility] [id number] Information: SRC:UR [id number] COUNT (54137) Antimicrobial MIHEAD (Normal) Comments: S = Susceptible; [...] Final report (Normal) Culture,Comprehensive :51 Urinalysis, Office (72685) UA - BILIRUBIN Negative (Normal) UA - BLOOD Hemolyzed Trace (Normal) UA - GLUCOSE Negative (Normal) UA - KETONES Negative mg/dL (Normal) UA - LEUKOCYTE ESTERASE Large (Normal) UA - NITRITE Negative (Normal) UA - PH 6.5 (Normal) UA - PROTEIN Negative mg/dL (Normal) UA - SPECIFIC GRAVITY 1.015 (Normal) URINE UROBILINGN SRAVANI TIMED Normal mg/dL (Normal) :53 CBC (Auto) (98593) Comments: PATIENT NOT FASTINGPERFORMED BY: CB [facility] Tdorby5181 [facility] [id number] Information: [id number] Platelets 271 {x10E3/uL} (Normal) Range: 140-415 RDW 13.4 % (Normal) Range: 11.7-15.0 MCHC 34.0 g/dL (Normal) Range: 32.0-36.0 MCH 31.0 pg (Normal) Range: 27.0-34.0 Hematocrit 37.9 % (Normal) Range: 34.0-44.0 MCV 91 fL (Normal) Range: 80-98 Hemoglobin 12.9 g/dL (Normal) Range: 11.5-15.0 RBC 4.16 {x10E6/uL} (Normal) Range: 3.80-5.10 WBC 4.7 {x10E3/uL} (Normal) Range: 4.0-10.5 :53 Potassium Serum (41874) Comments: PATIENT NOT FASTINGPERFORMED BY: [facility] CenterMbkxaz3826 [facility] [id number] Potassium, Serum 4.9 mmol/L (Normal) Range: 3.5-5.2 92-Ama-60418:17 GALLBLADDER Radiology Report See Note (Normal) Comments: [...] 42 U/L (Normal) Comments: RESULTS FAXED 05/24/10 8689 CARLOS CAMPOS. 13:17 Range: 25-115 00-Ivl-992715:17 CBCD,SMEAR DIFF RED CELL MORPH SeeNote {NORMAL} [...] 4.2-5.4 WBC 3.0 K/mm3 (Abnormal) Range: 4.4-11.0 51-Hor-461691:17 COMP METABOLIC Comments: RESULTS FAXED 05/24/10 1522 [...] 0.6-1.0 GLU 82 mg/dL (Normal) Range: 70-110 83-Zxm-810435:17 LIPASE 124 U/L (Normal) Comments: RESULTS FAXED 05/24/10 1522 CARLOS CAMPOS. Range: 70-290 Comments: Please note:LIPASE revised reference range effective 09. 6-Bpd-099233:38 CBCD,SMEAR DIFF RED CELL MORPH SeeNote {NORMAL} [...] 4.2-5.4 WBC 5.3 K/mm3 (Normal) Range: 4.4-11.0 5-Ecw-988176:38 COMP METABOLIC GAP 8 (Normal) Range: 5-15 [...] 0.6-1.0 GLU 86 mg/dL (Normal) Range: 70-110 9-Los-694752:38 LIPID LDL 98 mg/dL (Normal) Range: 0-130 [...] Very High > or = 500 mg/dL 9-Zdr-378506:38 MICROALB:CRE UR MALB:CREAT 13.5 {mg/g_CRE} (Normal) MICROALBUMIN,UR 5.2 mg/L (Normal) UR CREAT 38.5 mg/dL (Normal) :38 TSH 0.50 {uIU/mL} (Normal) Range: 0.358-3.74 6-Ote-808779:03 Urinalysis, Office (30789) UA - BILIRUBIN Negative (Normal) UA - BLOOD Hemolyzed Trace (Normal) UA - GLUCOSE Negative (Normal) UA - KETONES Negative mg/dL (Normal) UA - LEUKOCYTE ESTERASE Negative (Normal) UA - NITRITE Negative (Normal) UA - PH 6.5 (Normal) UA - PROTEIN Negative mg/dL (Normal) UA - SPECIFIC GRAVITY 1.020 (Normal) URINE UROBILINGN SRAVANI TIMED Normal mg/dL (Normal) 02-Ycc-274099:01 Urinalysis, Office (22885) UA - BILIRUBIN Moderate (Normal) UA - BLOOD Hemolyzed Large (Normal) UA - GLUCOSE Negative (Normal) UA - KETONES Negative mg/dL (Normal) UA - LEUKOCYTE ESTERASE Negative (Normal) UA - NITRITE Negative (Normal) UA - PH 6.0 (Normal) UA - PROTEIN Negative mg/dL (Normal) UA - SPECIFIC GRAVITY 1.010 (Normal) URINE UROBILINGN SRAVANI TIMED Normal mg/dL (Normal) 36-Ruw-243118:46 URINE ALISSON CULTURE-IDENTIFICATN Comments: PATIENT NOT FASTINGPERFORMED BY: [facility] Tnyjmv6096 [facility] [id number] Information: [id number] (52018) Result 1 NG36 (Normal) Comments: No growth in 36 - 48 hours. Urine Culture,Comprehensive Final report (Normal) 88-Bbh-295150:00 TSH (94445) Comments: PATIENT WAS FASTINGPERFORMED BY: [facility] Rpgohd9300 [facility] [id number] TSH 1.190 {uIU/mL} (Normal) Range: 0.450-4.500 28-Ifw-450455:00 METABOLIC PANEL, COMPREHENSIVE Comments: PATIENT WAS FASTINGPERFORMED BY: [facility] Lab[facility]Qlndsk2671 [facility] [id number] (38238) A/G Ratio 1.7 (Normal) Range: 1.1-2.5 Albumin, [...] Sodium, Serum 139 mmol/L (Normal) Range: 135-145 94-Vgq-193715:00 LIPID PANEL (51386) Comments: PATIENT WAS FASTINGPERFORMED BY: [facility] [id number] Cholesterol, Total 231 mg/dL (Abnormal) Range: 100-199 HDL Cholesterol 79 mg/dL (Normal) Comments: According to ATP-III Guidelines, HDL-C >59 mg/dL is considered anegative risk factor for CHD. LDL Cholesterol Calc 127 mg/dL (Abnormal) Range: 0-99 LDL/HDL Ratio 1.6 {ratio_units} (Normal) Range: 0.0-3.2 Triglycerides 123 mg/dL (Normal) Range: 0-149 VLDL Cholesterol Zaria 25 mg/dL (Normal) Range: 5-40 26-Yte-161233:00 CBC WITH MANUAL DIFF (07775) Comments: PATIENT WAS FASTINGClinical Information: [id number] PERFORMED BY: [facility] [id number] Baso (Absolute) 0.0 {x10E3/uL} (Normal) Range: 0.0-0.2 [...] Culture,Comprehensive Comments: Clinical Information: SRC:UR PERFORMED BY: [facility]Xvihzw5439 [facility] [id number] Result 1 ECV (Normal) Comments: Escherichia coli, [...] S Urine Final report (Normal) Culture,Comprehensiv e 41-Svp-029004:59 Urinalysis, Office (01112) UA - BILIRUBIN Negative (Normal) UA - BLOOD Hemolyzed Moderate (Normal) UA - GLUCOSE Negative (Normal) UA - KETONES Negative mg/dL (Normal) UA - LEUKOCYTE ESTERASE Moderate (Normal) UA - NITRITE Negative (Normal) UA - PH 6.0 (Normal) UA - PROTEIN Negative mg/dL (Normal) UA - SPECIFIC GRAVITY 1.015 (Normal) URINE UROBILINGN SRAVANI TIMED 2 mg/dL (Normal) 68-Vsp-149492:54 URINALYSIS W/O MICRO (31309) Comments: PATIENT WAS FASTINGPERFORMED BY: [employer] [facility] [id number] Appearance Clear (Normal) Bilirubin Negative (Normal) Glucose Negative (Normal) Ketones Negative (Normal) Microscopic Examination MICRON (Normal) Comments: Microscopic follows if indicated. Nitrite, Urine Negative (Normal) Occult Blood Negative (Normal) pH 6.5 (Normal) Range: 5.0-7.5 Protein Negative (Normal) Specific [place] 1.012 (Normal) Range: 1.005-1.030 Urine-Color Yellow (Normal) Urobilinogen,Semi-Qn 0.2 mg/dL (Normal) Range: 0.0-1.9 WBC Esterase Negative (Normal) 40-Tgt-709960:54 TSH (57252) Comments: PATIENT WAS FASTINGPERFORMED BY: [employer] [facility] [id number] TSH 1.015 {uIU/mL} (Normal) Range: 0.450-4.500 05-Zks-849738:54 METABOLIC PANEL, COMPREHENSIVE Comments: PATIENT WAS FASTINGPERFORMED BY: [employer] [facility] [id number] (23871) A/G Ratio 1.5 (Normal) Range: 1.1-2.5 Albumin, [...] Serum 113 mg/dL (Abnormal) Range: 65-99 If -Austrian >59 mL/min/1.73 Comments: Note: Persistent reduction for [...] mmol/L (Normal) Range: 135-145 :54 LIPID PANEL (74574) Comments: PATIENT WAS FASTINGPERFORMED BY: [facility]Xtbqav0105 [facility] [id number] Cholesterol, Total 199 mg/dL (Normal) Range: 100-199 [...] Range: 5-40 :54 CBC WITH MANUAL DIFF (05320) Comments: PATIENT WAS FASTINGClinical Information: ADD DRAW FEE [id number] ADD J 40686 PERFORMED BY: [facility]Xoxuin6050 [facility] [id number] Baso (Absolute) 0.0 {x10E3/uL} (Normal) Range: 0.0-0.2 [...] change for the pediatric CBC With Differential/Platelet 51-Qpz-842791:32 PELVIC (NON-PREG) (HP) Radiology Report See Note (Normal) Comments: Exam Number: [id number] PELVIC ULTRASOUND HISTORYOvarian cyst, left side. COMPARISON [...] 26, 2006. Reported By: MANSI SINGER M.D. 7-Yyk-499816:42 ISIAH-D [id number] ISIAH-DIRECT 32 U/mL (Normal) Range: 0-99 Comments: [...] cardiovasculardisease. Reference: High risk CRP >3.0 mg/L 5-Vfg-919740:42 CBCD,SMEAR DIFF BAND 5 % (Normal) Range: [...] Range: 0.2 - 1.0 :42 T3, FREE 19925 2.8 pg/mL (Normal) Range: 2.3-4.2 Comments: Performed At: [address] [id number] :42 T4 FREE,DIRECT 1.0 ng/dL (Normal) Range: 0.89-1.76 :42 TSH 0.54 {uIU/mL} (Normal) Range: 0.34-4.82 :56 MAMM, UILAT DIAG DIGITAL & CAD Radiology Report See Note (Normal) Comments: Exam Number: [id number] MAMMOGRAPHY, RIGHT UNILATERAL DIAGNOSTIC DIGITAL AND CAD [...] mammograms werealso examined with computer-aided detection software ([employer] Reported By: AARON DE ANDA M.D. 00-Udh-896811:59 MAMM, BILAT SCRN DIGITAL & CAD Radiology Report See Note (Normal) Comments: Exam Number: [id number] BILATERAL SCREENING DIGITAL MAMMOGRAM CLINICAL INFORMATIONScreening. TECHNIQUEBilateral [...] werealso examined with computer- aided detection software ([employer] Reported By: SUSI MACK M.D. 19-Muh-160734:59 PELVIC (NON-PREG) (HP) Radiology Report See Note (Normal) Comments: Exam Number: [id number] TRANSABDOMINAL PELVIC ULTRASOUND CLINICAL STATEMENTLower abdominal pain. [...] Anxiety: emotional health Indication: Impaired fasting glucose Kilopass V73. (Renamed from Kilopass) : *Well Female Maintenance (KF) Indication: Kilopass V73. (Renamed from Kilopass) Kilopass V7. (Renamed from Kilopass) : Pap/Pelvic/Bimanual/Rectal/Breast Exam was done. Indication: Kilopass V73. (Renamed from Kilopass) Dysuria : Water in diet, brief version Indication: Dysuria Dysuria : *UTI treatment Indication: Dysuria Dysuria : *UTI treatment Indication: Dysuria Dysuria : UTI treatment Indication: Dysuria Fatigue : FOLLOW UP IN 2 WEEKS Indication: Fatigue Fatigue : *fatigue education Indication: Fatigue Planned Observations MICROALBUMIN: CREATININE RATIO (07869) AND (89221)Indication: Hypertension On: :52 Request URINALYSIS (30126)Indication: Hypertension On: :52 Request CBC WITH MANUAL DIFF (07731)Indication: Hypertension On: :52 Request Metabolic Panel, Comprehensive (43742)Indication: Hypertension On: :52 Request Anti-TPO Antibody (63461)Indication: Subclinical hyperthyroidism On: :40 Request Comments: check in February T4, FREE (THYROXINE) (85483)Indication: Subclinical hyperthyroidism On: :40 Request Comments: check in February T-3 UPTAKE (46641)Indication: Subclinical hyperthyroidism On: :40 Request Comments: recheck February TSH (51065)Indication: Subclinical hyperthyroidism On: :40 Request Comments: recheck February CULTURE, SPUTUM (76071)Indication: COPD with acute exacerbation (Renamed from Acute exacerbation of chronic obstructive airways disease) On: 8-Xjv-884615:45 Request Anti-TPO Antibody (20259)Indication: Abnormal blood chemistry On: 5-Qbt-878909:18 Request T3, FREE (TRIDOTHYRONINE) (86921)Indication: Abnormal blood chemistry On: :18 Request T4, FREE (THYROXINE) (44244)Indication: Abnormal blood chemistry On: 4-Mbo-400957:18 Request TSH (47624)Indication: Abnormal blood chemistry On: 5-Umu-600150:18 Request D-Dimer (79778)Indication: Chest pain On: 9-Sbc-234458:49 Request Comments: do all labs stat...zaria to on zaria Dr. if abnormal CPK MB FRACTION (61712)Indication: Chest pain On: 7-Cep-134572:22 Request CREATINE KINASE TOTAL (95580)Indication: Chest pain On: 9-Xcg-956642:22 Request Metabolic Panel, Comprehensive (32627)Indication: Fatigue On: 7-Fwx-309526:06 Request CBC, Platelets & Auto Diff (07154)Indication: Immunocompromised On: 1-Vgu-588610:03 Request CULTURE, SPUTUM (70526)Indication: Bronchitis, acute On: 5-Ysy-212315:58 Request METABOLIC PANEL, COMPREHENSIVE (27122)Indication: Benign essential hypertension On: 17-Saa-666532:57 Request LIPID PANEL (85727)Indication: Benign essential hypertension On: 57-Hrr-598976:57 Request T4, FREE (THYROXINE) (08966)Indication: Perimenopausal menorrhagia On: 4-Vop-611273:00 Request TSH (THYROID STIMULATING HORMONE) (50353)Indication: Perimenopausal menorrhagia On: 5-Sub-023499:59 Request Comments: fax copy all labs to Dr. bales HCG (HUMAN CHORIONIC GONADOTROPIN) (04174)Indication: Perimenopausal menorrhagia On: 1-Pli-809894:57 Request PTT (ACTIVATED PARTIAL THROMBOPLASTIN TIME) (58363)Indication: Perimenopausal menorrhagia On: 8-Yjz-305604:57 Request PT/INR, Office (78324)Indication: Perimenopausal menorrhagia On: 4-Fez-228032:57 Request 17-HYDROXYPREGNENOLONE (73333)Indication: Perimenopausal menorrhagia On: 6-Ynq-982878:57 Request PROLACTIN (74666)Indication: Perimenopausal menorrhagia On: 3-Sfh-886617:57 Request LIPID PANEL (89368)Indication: Benign essential hypertension On: 13-Vwv-910862:28 Request CCP ANTIBODY (04678)Indication: Acute rheumatoid arthritis On: 70-Uio-219627:17 Request SED RATE ERYTHROCYTE (09927)Indication: Acute rheumatoid arthritis On: 53-Mvn-238639:17 Request C-REACTIVE PROTEIN (27323)Indication: Acute rheumatoid arthritis On: 48-Esq-367956:17 Request TSH (21522)Indication: Acute rheumatoid arthritis On: 71-Vmw-898852:17 Request RHEUMATOID FACTOR-QUANT (83066)Indication: Acute rheumatoid arthritis On: 26-Wfx-476458:17 Request ISIAH (ANTINUCLEAR ANTIBODY) (99314)Indication: Acute rheumatoid arthritis On: 84-Czf-717026:17 Request URINALYSIS, W/ MICRO (63926)Indication: Benign essential hypertension On: 2-Pwx-315260:20 Request METABOLIC PANEL, COMPREHENSIVE (75973)Indication: Benign essential hypertension On: 4-Osc-592526:20 Request LIPID PANEL (24436)Indication: Benign essential hypertension On: 4-Wjx-269179:20 Request CBC WITH MANUAL DIFF (66929)Indication: Benign essential hypertension On: 8-Ulx-203550:20 Request URINE ALISSON CULTURE (SRAVANI COL COUNT) (97026)Indication: Hematuria On: 07-Dse-618152:04 Request METABOLIC PANEL, COMPREHENSIVE ([id number])Indication: Nausea and vomiting On: 06-Lrn-200841:02 Request CBC WITH MANUAL DIFF ([id number])Indication: Nausea and vomiting On: :02 Request Lipase ([id number])Indication: Nausea and vomiting On: : Request Amylase (48393)Indication: Nausea and vomiting On: : Request OVA & PARASITE DIR SMEAR ([id number])Indication: Diarrhea On: : Request C.Difficile, Stool ([id number])Indication: Diarrhea On: : Request LEUKOCYTE COUNT, FECAL ([id number])Indication: Diarrhea On: : Request ALISSON CULTURE-STOOL ([id number])Indication: Diarrhea On: :01 Request TSH ([id number])Indication: Depression On: 1-Ysq-168201:10 Request MICROALBUMIN: CREATININE RATIO ([id number]) AND ([id number])Indication: Benign essential hypertension On: 9-Aqn-772058:10 Request METABOLIC PANEL, COMPREHENSIVE ([id number])Indication: Benign essential hypertension On: 5-Mea-179505:10 Request LIPID PANEL ([id number])Indication: Benign essential hypertension On: 2-Unk-344028:09 Request CBC WITH MANUAL DIFF ([id number])Indication: Benign essential hypertension On: 7-Csw-814064:09 Request URINALYSIS W/O MICRO ([id number])Indication: Benign essential hypertension On: :39 Request MICROALBUMIN URINE QUANT ([id number])Indication: Benign essential hypertension On: :39 Request METABOLIC PANEL, COMPREHENSIVE ([id number])Indication: Benign essential hypertension On: :39 Request LIPID PANEL ([id number])Indication: Benign essential hypertension On: :39 Request ISIAH (ANTINUCLEAR ANTIBODY) ([id number])Indication: Fatigue On: :39 Request C-REACTIVE PROTEIN ([id number])Indication: Fatigue On: :39 Request CBC (AUTO) ([id number])Indication: Fatigue On: :39 Request Folate ([id number])Indication: Fatigue On: :39 Request METABOLIC PANEL, COMPREHENSIVE ([id number])Indication: Fatigue On: :39 Request RHEUMATOID FACTOR-QUANT ([id number])Indication: Fatigue On: :39 Request SED RATE ERYTHROCYTE ([id number])Indication: Fatigue On: :39 Request TSH ([id number])Indication: Fatigue On: :39 Request VITAMIN B-12 (CYANOCOBALAMIN) ([id number])Indication: Fatigue On: :39 Request Planned Encounters Medical; [facility] 2 Month FU - On: 31-May-2018 13:00 [facility] Shasha Barker MD, MD, Dana M Planned Procedures Flu Vaccine (Quadrivalent) [id number]: On: 30-Mar-2018 Intent Shasha Barker MD, MD, Dana M MRI OF LUMBAR SPINE WITH AND WITHOUT On: 18-Jan-2018 Intent CONTRAST ([id number])By: Shasha Barker MD Comments: rule out cauda equina syndrome, back injection also in last [facility] Shasha Gillespie MD THYROID SCAN UPTAKE ([id number])By: On: 16-Nov-2017 Intent Shasha Barker MD, MD, [...] ([id number])By: Shasha Barker MD Comments: Lot # [id number] solu medrol given right deltoid by Shasha Suggs lpn, MD Radiology - ChestBy: Mj AL, On: 15-May-2017 Intent Shasha Ba MD Solu- Medrol Injection, 125mg On: 12-May-2017 Intent ([id number])By: Shasha Barker MD, MD, Dana M Aerosol Treatment ([id number])By: Mj On: 12-May-2017 Intent Shasha AL MD, Dana M EKG ([id number])By: Shasha Barker MD On: 12-Mar-2017 Intent Shasha [...] MD, Dana M XRAY LEFT SMALL TOE ([id number])By: On: 20-May-2016 Intent Shasha Barker MD, MD, Dana Comments: 5th digit focus on area of pain and get distal metatarsal bone M MAMMOGRAM BREAST BILATERAL SCREENING On: 06-May-2016 Intent DIGITAL ([id number])By: Shasha Barker MD, MD, Dana M DEXA SCAN AXIAL SKELETON ([id number])By: On: 06-May-2016 Intent Shasha Barker MD, MD, [...] ROSS, On: 19-Jul-2014 Intent Ophelia Estrada EKG ([id number])By: Shasha Bakrer MD On: 23-Jun-2013 Intent Shasha Barker MD Comments: see scanned document of test done to see results reviewed today with patient MAMMOGRAM, SCREENING, BOTH BREASTS On: 23-Jun-2013 Intent ([id number])By: Shasha Barker MD, MD, Dana M Eprescribed prescriptions ([id number])By: On: 23-Jun-2013 Intent Shasha Barker MD, MD, Dana M Radiology - Hand - BilateralBy: On: 10-Feb-2013 Intent Shasha Barker MD, MD, Dana Comments: copy to Dr. kern and lior Whitten Eprescribed prescriptions ([id number])By: On: 10-Feb-2013 Intent Long COVER OPERATOR, Riana L Eprescribed prescriptions ([id number])By: On: 11-Oct-2012 Intent Shasha Barker MD, MD, Dana M EKG ([id number])By: Shasha Barker MD On: 11-Jun-2012 Intent Shasha Barker MD Eprescribed prescriptions ([id number])By: On: 11-Jun-2012 Intent Long COVER OPERATOR, Riana L CT - Abdomen & Pelvis (IV Contrast On: 12-Mar-2012 Intent Needed)By: Shasha Barker MD, MD, Dana M MAMMOGRAM, SCREENING, BOTH BREASTS On: 29-Apr-2011 Intent ([id number])By: Shasha Barker MD, MD, Dana M MAMMOGRAM, SCREENING, BOTH BREASTS On: 25-Apr-2011 Intent ([id number])By: Shasha Barker MD, MD, Dana M EKG ([id number])By: JACKIE Bruno On: 26-Aug-2010 Intent Ultrasound - GallbladderBy: Fast DO, On: 27-May-2010 Intent Philomena A Ultrasound - GallbladderBy: Fast DO, On: 24-May-2010 Intent Philomena A Doppler Ultrasound OtherBy: Augustine On: 25-Apr-2010 Intent Jeannette FARAH Comments: L lower extrrem- eval for clot and eval bakers cyst? size ? leaking ? Radiology - ChestBy: Mj AL, On: 23-May-2009 Intent Shasha Ba MD EKG ([id number])By: Shasha Barker MD On: 24-Apr-2009 Intent [address] - Brain/HeadBy: Shasha Barker MD On: 24-Apr-2009 Intent Shasha Gillespie MD EKG ([id number])By: Shasha Barker MD On: 14-Apr-2008 Intent Shasha Barker MD MAMMOGRAM, SCREENING, BOTH BREASTS On: 14-Apr-2008 Intent ([id number])By: Shasha Barker MD, MD, Dana M Ultrasound - PelvisBy: Mj AL, On: 23-Nov-2006 Intent Shasha Ba MD EKG ([id number])By: PEGGY ROSE CNP On: 10-Aug-2006 Intent Comments: [...] date: (04-07-11).Encounter Diagnosis: WWV V73.21 (Renamed from [facility]) [facility] Office Visit On: 25-Apr-2011 [...] (311.), Fatigue (780.79), WW[facility] V73.21 (Renamed from [facility]) [facility] Annotation/Addendum On: 02-Oct-2010 14:02 [...] disturbance (368.9), Headache (784.0), Backache, unspecified (724.5), [facility] Office Visit On: 23-Nov-2006 [...] left, use cockup splint, see lizyigrtawanda in [place]--did [facility] 1year ago--show CTS, xray of hand [...]
--- OUTSIDE RECORDS SUMMARY | 2018-05-29 01:11 | XMS RPT_ITS | Continuity of Care Document ---
:1960 Author Organization [facility] Address [address] [place] [address] Phone Care Team Providers Name Role Phone Mj AL, Pushpa Whitten Unavailable Shahana Major Unavailable Jose L Chance Unavailable Stepan Ying Unavailable Dr. Juju Bales MD Unavailable Tita Miles Unavailable Rios Chinchilla Unavailable Dr. Cholo Taylor Unavailable Benson Delgado MD Unavailable Dr. Jose L Gutierrez Unavailable Espinoza Quan MD Unavailable Rolando Kern Unavailable Unavailable Hortensia Tinajero Unavailable Unavailable Unavailable Problems Name Dates Details [...] (M06.9, 714.0) Comments: seen lior then now wojno. now feel not get [...] going to see spine surgeon/functional medicine at [facility] Dr Martínez 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 Deliveries (Parity) Comments: 2 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 Deliveries (Parity) Comments: 1 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 Depression (F32.9, 311) Comments: see above. 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 Encounter for general adult medical examination with abnormal findings (Z00.01, V70.0) Comments: [facility] -17, summer 2015 pap, mammo due. colonscopy spring [...] ca se this would be the cause. [facility] 2-18 ? aspiration ? imipramine 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 [...] Subclinical hyperthyroidism (E05.90, 242.90) Comments: uptake scan noraml delmi recheck. 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 Tobacco abuse (Z72.0, [...] 30 {Tablet} Refills: 4 Ordered:03-Nov-2017 Mj AL, Pushpa Garcia MD, Pushpa Whitten Start : 03-Nov-2017 Active Comments:[id number] called to [place] -er AmLODIPine Besylate 5 MG Oral Tablet 1 (one) Tablet qd for 0 days Quantity: 90 {Tablet} Refills: 3 Ordered:19-Oct-2017 BonePushpa irvin MD, MD, Dana M Start : 19-Oct-2017 Active Butrans 15 MCG/HR Transdermal Patch Weekly 1 (one) Patch q weekly for 0 days Quantity: 10 {Patch} Refills: 0 Ordered:20-Oct-2017 Pushpa Barker MD, MD, Dana M Start : 20-Oct-2017 Active Cymbalta 60 MG Oral Capsule Delayed Release Particles [address] Part at night for 0 days Quantity: 30 {Capsule} Refills: 6 Ordered:07-Apr-2017 Pushpa Barker MD, MD, Dana M Start : 07-Apr-2017 Active Fosamax 70 MG Oral Tablet once weekly (70 MG) Active Hydrocodone-Acetaminophen 7.5-325 MG Oral Tablet 1 (one) Tablet Tablet qid for 0 days Quantity: 60 {Tablet} Refills: 0 Ordered:27-Jan-2017 Pushpa Barker MD, MD, Dana M Start : 27-Jan-2017 Active Imuran 50 MG Oral Tablet 3 (three) Tablet Tablet qd for 0 days Quantity: 90 {Tablet} Refills: 0 Ordered:30-Mar-2018 Pushpa Barker MD, MD, Dana M Start : 05-Jan-2018 Active Losartan Potassium 100 MG Oral Tablet 1 Tablet qd for 0 days Quantity: 90 {Tablet} Refills: 3 Ordered:29-Dec-2017 Pushpa Barker MD, MD, Dana M Start : 29-Dec-2017 Active Lyrica 75 MG Oral Capsule 2 (two) Capsule qhs for 0 days Quantity: 60 {Capsule} Refills: 3 Ordered:02-Mar-2018 Pushpa Barker MD, MD, Dana M Start : 02-Mar-2018 Active Comments:sixty 03-02-18 called to [facility] reviewed Myrbetriq 25 MG Oral Tablet Extended Release 24 Hour 1 (one) Tablet Tablet 1-2 a day to help with incontinence prn for 0 days Quantity: 30 {Tablet} Refills: 0 Ordered:30-Mar-2018 Pushpa Barker MD, MD, Dana M Start : 05-Jan-2018 Active Omeprazole 40 MG Oral Capsule Delayed Release 1 (one) Capsule bid for 0 days Quantity: 60 {Capsule} Refills: 4 Ordered:14-Jul-2017 Pushpa Barker MD, MD, Dana M Start : 14-Jul-2017 Active Comments:take 30 minutes before meals PredniSONE 10 MG Oral Tablet 1 (one) Tablet qd for 0 days Quantity: 60 {Tablet} Refills: 0 Ordered:05-Jan-2018 Philomena Gibson DO Start : 05-Jan-2018 Active ProAir HFA 108 (90 Base) MCG/ACT Inhalation Aerosol Solution 2 (two) Puff Puff tid prn for 0 days Quantity: 1 {Inhaler} Refills: 0 Ordered:01-Aug-2016 Pushpa Barker MD, MD, Dana M Start : 01-Aug-2016 Active Progesterone 1000 MG/60GM External Cream daily per Shriner (1000 MG/60GM) Active Sulfamethoxazole-Trimethoprim 800-160 MG Oral Tablet 1 (one) Tablet Thursday and Thursday as directed for 0 days Quantity: 14 {Tablet} Refills: 0 Ordered:14-Jul-2017 Pushpa Barker MD, MD, Dana M Start : 14-Jul-2017 Active Comments:07-14-2017 MWF while at max dose supression Ultravate 0.05 % External Cream uad Application Application apply to affected nail bed bid for 2 weeks for 0 days Quantity: 30 {Gram} Refills: 0 Ordered:06-Jan-2018 Pushpa Barker MD, MD, Dana M Start : 06-Jan-2018 Active Vitamin B Complex Oral Tablet 1 (one) Tablet Tablet daily for 0 days Quantity: 30 {Tablet} Refills: 0 Ordered:27-Jan-2017 JACKIE Bruno Start : 16-Oct-2016 Active Vitamin D3 5000 UNIT Oral Tablet 1 (one) Tablet qd for 0 days Quantity: 30 {Tablet} Refills: 0 Ordered:18-Aug-2016 Pushpa Barker MD, MD, Dana M Start : 18-Aug-2016 Active Wellbutrin XL 300 MG Oral Tablet Extended Release 24 Hour 1 (one) Tablet in am for 0 days Quantity: 90 {Tablet} Refills: 3 Ordered:18-Nov-2017 Augustine FARAH Jeannette Start : 18-Nov-2017 Active Albuterol Sulfate (2.5 [...] 120 {Tablet} Refills: 0 Ordered:14-Jul-2017 Mj AL, Pushpa Garcia MD, Pushpa Whitten Start : 14-Jul-2017 End : 14-Jul-2017 Inactive Comments: d/c per [facility] had fatgiue and GI upset CIPRO, 500MG (Oral Tablet) 1 Tablet bid for 0 days Quantity: 20 {Tablet} Refills: 0 Ordered:03-Apr-2010 Long Riana JOSHI Start : 15-Mar-2010 End : 03-Apr-2010 Inactive colostrum 1 QD Inactive Diflucan 150 MG Oral Tablet uad Tablet one today and may repeat in 2 days if not gone for 0 days Quantity: 2 {Tablet} Refills: 0 Ordered:18-Aug-2016 JACKIE Bruno Start : 15-Aug-2016 End : 18-Aug-2016 Inactive D-RIBOSE (Powder) uad prn for 0 days Refills: 0 Ordered:29-Jan-2010 Patricio Collins LPNactive Comments:1 teaspoon bid (1 serving is 5 [...] days Quantity: 90 {Tablet} Refills: 3 Ordered:14-Jul-2017 Pushpa Barker MD, MD, Dana M Start : 14-Jul-2017 End : 14-Jul-2017 Inactive Comments: d/c per [facility] LEUCOVORIN CALCIUM, 15MG (Oral Tablet) 1 (one) Tablet once a week for 30 days Quantity: 30 {Tablet} Refills: 0 Ordered:21-Aug-2014 Ophelia Boogie CNP Start : 19-Jul-2014 End : 18-Aug-2014 Inactive Levaquin 500 MG Oral Tablet 1 (one) Tablet daily for 14 days Quantity: 14 {Tablet} Refills: 0 Ordered:12-May-2017 Pushpa Barker MD, MD, Dana M Start : [...] 50 {Rio} Refills: 0 Ordered:25-Feb-2010 Chuyita ROSS Vero Start : 29-Jan-2010 End : 08-Feb-2010 Inactive [place] 7.5-325 MG Oral Tablet 1 (one) Tablet two times daily for 0 days Quantity: 60 {Tablet} Refills: 0 Ordered:26-Jan-2017 JACKIE Bruno Start : 26-Jan-2017 End : 26-Jan-2017 Inactive [place] 7.5-325 MG Oral Tablet tid prn (7.5-325 [...] days Quantity: 360 {Tablet} Refills: 0 Ordered:05-Mar-2015 Ambreen Merino LPN Start : 07-Sep-2014 End : 02-Sep-2015 Inactive [...] days Quantity: 30 {Tablet} Refills: 0 Ordered:25-Apr-2011 Pushpa Barker MD, MD, Dana M Start : 25-Apr-2011 End : 25-Apr-2011 Discontinued AzaTHIOprine 50 MG Oral Tablet 1 (one) Tablet tid for 0 days Quantity: 90 {Tablet} Refills: 0 Ordered:05-Jan-2018 Pushpa Barker MD, MD, Dana M Start : 05-Jan-2018 End : 05-Jan-2018 Discontinued CARAFATE, 1GM (Oral Tablet) 1 Tablet four times a day for 0 days Quantity: 120 {Tablet} Refills: 0 Ordered:26-Aug-2010 Pushpa Barker MD, MD, Dana M Start : 26-Aug-2010 End : 25-Apr-2011 Discontinued KETOPROFEN, 75MG (Oral Capsule) 1 Capsule as needed for 0 days Quantity: 60 {Capsule} Refills: 0 Ordered:17-Jul-2010 Pushpa Barker MD, MD, Dana M Start : 17-Jul-2010 End : 25-Apr-2011 Discontinued Comments:Medication taken as needed. LEUCOVORIN CALCIUM, 10MG (Oral Tablet) 3 (three) Tablet once a week for 30 days Quantity: 30 {Tablet} Refills: 3 Ordered:27-Feb-2015 Slarb LICENSED PHYSICAL THERAPY ASSISTANT, Ambreen Start : 07-Sep-2014 End : 27-Feb-2015 Discontinued LODINE XL, 400MG (Oral Tablet Extended Release 24 Hour) 1 two times daily for 0 days Refills: 0 Ordered:03-Apr-2010 Long LICENSED PHYSICAL THERAPY ASSISTANT, Riana L End : 03-Apr-2010 Discontinued Comments:This order [...] Quantity: 30 {Tablet} Refills: 0 Ordered:27-Feb-2015 Slarb LICENSED PHYSICAL THERAPY ASSISTANT, Ambreen Start : 05-Feb-2015 End : 27-Feb-2015 Discontinued PredniSONE 10 MG Oral Tablet 1 1/2 Tablet daily for 0 days Quantity: 60 {Tablet} Refills: 2 Ordered:06-May-2016 Pushpa Barker MD, MD, Dana M Start : 06-May-2016 End : 06-May-2016 Discontinued VICODIN ES, 7.5-750MG (Oral Tablet) bid (7.5-750 MG) End : 19-Jul-2014 Discontinued VICODIN, 5-500MG (Oral Tablet) 1 Tablet bid for 0 days Quantity: 60 {Tablet} Refills: 0 Ordered:26-Aug-2010 Pushpa Barker MD, MD, Dana M Start : 26-Aug-2010 End : 25-Apr-2011 Discontinued VOLTAREN, 50MG (Oral Tablet Delayed Release) 1 bid for 0 days Refills: 0 Ordered:29-Jan-2010 Dennis JOSHI Briana End : 29-Jan-2010 Discontinued Comments:This order discontinued per [facility]. Wellbutrin SR 150 MG Oral Tablet Extended Release 12 Hour 1 (one) Tablet ER 12HR daily for 0 days Quantity: 90 {Tablet} Refills: 3 Ordered:06-May-2016 Pushpa Barker MD, MD, Dana M Start : 06-May-2016 End : 06-May-2016 Discontinued Allergies and Adverse Reactions Name Dates Details ampicillin (Allergy) 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 Comments: as child and not remember Apiillcillijn (Allergy) 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 Clindamycin HCl *CHEMICALS* (Allergy) 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 Comments: GI side effects Past Medical History Name Dates Details Abnormal blood chemistry (R79.9, 790.6) Comments: tsh off will call [facility] and get leaves will follow Status: Resolved as of 15-May-2017 Abnormal finding on radiology exam (R93.8, 793.99) Comments: remains on levaquin and prednisone seeing Dr. Deangelo vallecillo in [place] next week. Status: Inactive as of 04-Sep-2016 [...] osteoarthritis (M19.90, 715.90) Comments: MRI one erosion [place] not sure iseronegative RA will be on [...] 1.[address] chest in [facility] ee with radiology at [facility] can they compare for me with [...] inside ?olyp ? adenomyosis. ? endometriosis to information assurance Status: Inactive as of 15-Mar-2015 Perimenopausal menorrhagia [...] Procedures Procedure Dates Details ARTHROPLASTY, HIP, TOTAL (03240) Completed Comments: left @ [facility] 03-18-18 Dr. Wendy Mckoy Carpal Tunnel b/l wrist Completed Colonoscopy, Screening Completed Comments: 01-01-[address] Gutierrez Dilation and Curettage of Uterus Completed Nov-2015 kidney sx as infant Completed partial knee replacement -- Left Leg Completed .2010 right lobe resection-lung Completed Comments: February 2015 Date Value Details 10-Feb-2018 Lower Ext Joint Only W/WO Cont Result: Comments: See Note; NOTES: [facility] Imaging Services [address] [place] [address] Lower Ext Joint Only W/WO Cont MR#: [id number] Acct: [id number] Name: TIN BLACKWOOD Rep # : [id number] : 1960 F 57 From: Kadie Dailey MD PCP: Pushpa Barker MD Status: REG CLI Study: Lower Ext Joint Only W/WO Cont Date of Exam: 02/10/18 Exam# [id number] Ordering Dr: CARLOS SHELBY M.D. STUDY: MRI [...] Kadie Dailey MD at 6:06 EDT , Frank paris support , CC: CARLOS SHELBY M.D.; Pushpa Barker MD Landscape Contractor: Signed 28-Jan-2018 Chest without Contrast Result: Comments: See Note; NOTES: [facility] Imaging Services [address] [place] [address] Chest without Contrast MR#: [id number] Acct: [id number] Name: TIN BLACKWOOD Rep #: [id number] : 1960 F 57 From: Vazquez Kaye MD PCP: Pushpa Barker MD Status: REG CLI Study: Chest without Contrast Date of Exam: 01/28/18 Exam# [id number] Ordering Dr: Pelon Chatterjee MD STUDY: CT [...] 18:07 EDT , Service support , CC: Pushpa Barker MD; Pelon Chatterjee MD Landscape Contractor: Signed 20-Jan-2018 Emergency Department Summary Result: Comments: See Note; NOTES: [facility] Medical Records Department [address] [place] [address] Emergency Department Summary 01/19/18 1534 MR#: [id number] Acct: [id number] Name: TIN BLACKWOOD Rep #: [id number] : 1960 57 From: Rolando Mc MD PCP: Pushpa Barker MD Status: DEP ER - ER [...] Lumbar radiculopathy This note was generated with [employer] dictation software. It may contain incorrect words, spelling, and punctuation that w ere not noted in review of the chart prior to signing ED Disposition - Plan for ED Patient: Disposition: Home or Assisted Living Chief Complaint: Back Diagnosis: Lumbar radiculopathy, acute Instruct ions: ED Sciatica Prescriptions: MethylPREDNISolone DosePak [Medrol DosePak] 4 mg PO UD #1 box Referrals: Pushpa Barker MD [Primary Care Provider] - As soon as possible What to do if you have Problem s For any increased pain, shortness of breath, bleeding, nausea or vomiting, chest pain, or any unexpected problems, contact your Primary Care Provider. Call [facility] ([phone]) or report t o the closest Emergency Room. Call 911 if necessary. 01/20/18 0235 <Electronically signed by Rolando Mc MD> Date Rolando Mc MD Cosigner Signature (If Indicated): Date CC: Pushpa Barker MD 19-Jan-2018 Spine Lumbar (Routine) Result: Comments: See Note; NOTES: [facility] Imaging Services [address] [address] Spine Lumbar (Routine) MR#: [id number] Acct: [id number] Name: TIN BLACKWOOD Rep #: [id number] : 1960 F 57 From: Nabeel Bernabe MD PCP: Pushpa Barker MD Status: REG ER Study: Spine Lumbar (Routine) Date of Exam: 01/19/18 Exam# [id number] Ordering Dr: Rolando Mc MD STUDY: MRI [...] EDT Tel , Service support , CC: Pushpa Barker MD; Rolando Mc Landscape Contractor: Signed 19-Jan-2018 Spine Lumbar (Routine) Result: Comments: See Note; NOTES: [facility] Imaging Services [address] [place] [address] Spine Lumbar (Routine) MR#: [id number] Acct: [id number] Name: TIN BLACKWOOD Rep #: [id number] : 1960 F 57 From: Nabeel Bernabe MD PCP: Pushpa Barker MD Status: [facility] ER Study: Spine Lumbar (Routine) Date of Exam: 01/19/18 Exam# [id number] Ordering Dr: Rolando Mc MD STUDY: MRI [...] EDT Tel , Service support , CC: Pushpa Barker MD; Rolando Mc Landscape Contractor: Signed 10-Dec-2017 Lower Ext/No Jt/w/o Result: Comments: See Note; NOTES: [facility] Imaging Services [address] [place] [address] Lower Ext/No Jt/w/o MR#: [id number] Acct: [id number] Name: TIN BLACKWOOD Rep #: [id number] : 1960 F 56 From: Julio Cannon MD PCP: Pushpa Barker MD Status: REG CLI Study: Lower Ext/No Jt/w/o Date of Exam: 12/10/17 Exam# [id number] Ordering Dr: Nabeel Danielle DPM STUDY: MRI [...] EDT Tel , Service support , CC: Pushpa Barker MD; Nabeel Danielle DPM Landscape Contractor: Signed 18-Nov-2017 Thyroid Uptake Single or Mult Result: Comments: See Note; NOTES: [facility] Imaging Services [address] [place] [address] Thyroid Uptake Single or Mult MR#: [id number] Acct: [id number] Name: TIN BLACKWOOD Rep #: [id number] : 1960 F 56 From: Asif Pagan DO PCP: Pushpa Barker MD Status: REG CLI Study: Thyroid Uptake Single or Mult Date of Exam: 11/18/17 Exam# [id number] Ordering Dr: Pushpa Barker MD C LINICAL: 56-year-old female with [...] to the presence of visualized th yroid [id number]-[id number]-jjhbdm thyroid gland. 3. No hypofunctioning, cold nodules are identified. Electronically Signed: Asif Pagan DO at 22:10 EDT Tel , Service support [phone], CC: Pushpa Barker MD Landscape Contractor: Signed 16-Nov-2017 Spine Cervical (Routine) Result: Comments: See Note; NOTES: [facility] Imaging Services [address] [place] [address] Spine Cervical (Routine) MR#: [id number] Acct: [id number] Name: TIN BLACKWOOD Rep #: [id number] : 1960 F 56 From: Andrew Duran DO PCP: Pushpa Barker MD Status: REG CLI Study: Spine Cervical (Routine) Date of Exam: 11/16/17 Exam# [id number] Ordering Dr: More Taylor MD STUDY: MRI [...] Service support , CC: More Taylor MD; Pushpa Barker MD Landscape Contractor: Signed 03-Nov-2017 Pelvis 1 or 2 Views Result: Comments: See Note; NOTES: [facility] Imaging Services [address] [place] [address] Pelvis 1 or 2 Views MR#: [id number] Acct: [id number] Name: TIN BLACKWOOD Rep #: [id number] : 1960 F 56 From: Vale Godoy MD PCP: Pushpa Barker MD Status: REG CLI Study: Pelvis 1 or 2 Views Date of Exam: 11/03/17 Exam# [id number] Ordering Dr: Pushpa Barker MD STUDY: X-RAY - PELVIS REASON [...] at 17:01 EDT Tel , Service support [phone], CC: Pushpa Barker MD Landscape Contractor: Signed 27-Aug-2017 Orb Sella Post Fossa Ear w/o Result: Comments: See Note; NOTES: [facility] Imaging Services [address] [place] [address] Orb Sella Post Fossa Ear w/o MR#: [id number] Acct: [id number] Name: TIN BLACKWOOD Rep #: [id number] : 1960 F 56 From: Nir Dudley MD PCP: Pushpa Barker MD Status: REG CLI Study: Orb Sella Post Fossa Ear w/o Date of Exam: 08/27/17 Exam# [id number] Ordering Dr: Dale Zuniga STUDY: CT TEMPORAL [...] Service support , CC: Beni Zuniga MD; Pushpa Barker MD Landscape Contractor: Signed 25-May-2017 Chest PA and Lateral Result: Comments: See Note; NOTES: [facility] Imaging Services [address] [place] [address] Chest PA and Lateral MR#: [id number] Acct: [id number] Name: TIN BLACKWOOD Rep #: [id number] : 1960 F 56 From: Aguilar Joaquin MD PCP: Pushpa Barker MD Status: REG RCR Study: Chest PA and Lateral Date of Exam: 05/25/17 Exam# [id number] Ordering Dr: Pelon Chatterjee MD STUDY: X-RAY [...] Aguilar Joaquin MD at 19:35 EST Tel [phone], Service support , CC: Pushpa Barker MD; Pelon Chatterjee MD Landscape Contractor: Signed 15-May-2017 Chest PA and Lateral Result: Comments: See Note; NOTES: [facility] Imaging Services [address] [place] [address] Chest PA and Lateral MR#: [id number] Acct: [id number] Name: TIN BLACKWOOD Rep #: [id number] : 1960 F 56 From: Patrice Pinto MD PCP: Pushpa Barker MD Status: REG CLI Study: Chest PA and Lateral Date of Exam: 05/15/17 Exam# [id number] Ordering Dr: Pushpa Barker MD STUDY: X-RAY CHEST REASON FOR [...] EST Tel , Service support , CC: Pushpa Barker MD Landscape Contractor: Signed 21-Jan-2017 Emergency Department Summary Result: Comments: See Note; NOTES: [facility] Medical Records Department [address] [place] [address] Emergency Department Summary 01/20/17 2344 MR#: [id number] Acct: [id number] Name: TIN BLACKWOOD Rep #: [id number] : 1960 56 From: Christian Hemphill PCP: Pushpa Barker MD Status: REG ER - ER [...] for ED Patient: Disposition: Acute Care [facility] Chief Complaint: Shortness of Breath Diagnosis: Pulmonary fibro sis, Hypoxemia, Elevated troponin, Pulmonary nodule, right Referrals: Pushpa Barker MD [Primary Care Provider] - What to do if you have Problems For any increased pain, shortness of breath, bleedin g, nausea or vomiting, chest pain, or any unexpected problems, contact your Primary Care Provider. Call [facility] ([phone]) or report to the closest Emergency Room. Call 911 if necessary. 01/21/17 0231 <Electronically signed by Christian Hemphill> Date Christian Hemphill Cosigner Signature (If Indicated): Date CC: Pushpa Barker MD 21-Jan-2017 CTA Chest W/WO Contrast Result: Comments: See Note; NOTES: [facility] Imaging Services [address] [place] [address] CTA Chest W/WO Contrast MR#: [id number] Acct: [id number] Name: TIN BLACKWOOD Rep #: [id number] : 1960 F 56 From: Stepan Mayberry MD PCP: Pushpa Barker MD Status: [facility] ER Study: CTA Chest W/WO Contrast Date of Exam: 01/21/17 Exam# [id number] Ordering Dr: Christian Schrader DO STUDY: CTA [...] EDT Tel , Service support , CC: Pushpa Barker MD; Christian Schrader Landscape Contractor: Signed 20-Jan-2017 Chest PA and Lateral Result: Comments: See Note; NOTES: [facility] Imaging Services [address] [place] [address] Chest PA and Lateral MR#: [id number] Acct: [id number] Name: TIN BLACKWOOD Rep #: [id number] : 1960 F 56 From: Stepan Mayberry MD PCP: Pushpa Barker MD Status: REG ER Study: Chest PA and Lateral Date of Exam: 01/20/17 Exam# [id number] Ordering Dr: Christian Schrader DO STUDY: X-RAY [...] EDT Tel , Service support , CC: Pushpa Barker MD; Christian Schrader Landscape Contractor: Signed 21-Nov-2016 PT D/C Summary (1) Result: Comments: See Note; NOTES: [facility] Physical Therapy [facility] [place] [address] Fax REHABILITATION SERVICES [facility] SUMMARY MR#: [id number] Acct: [id number] Name: TIN BLACKWOOD Rep #: [id number] : 1960 55 From: Yury Lawrence PT, Cert. MDT, OCS Referring Dr.: Pushpa Barker MD Status: REG RCR Insurance: A [facility] HP - PT D/C Summary It has been my pleasure to treat TIN BLACKWOOD under orders from Pushpa Barker, for the diagnosis of RA, DDD [...] please feel free to call me at [phone]. Thank you for the referral of this patient. Sincerely, Yury Lawrence PT, <Electronically signed by Cert. ANNA Simms PT, OCS> 11/21/16 1533 CC: Pushpa Barker MD MARIN Signed 22-Oct-2016 Inital Evaluation (1) - PT Result: Comments: See Note; NOTES: [facility] Physical Therapy [facility] [address] [place] [address] Fax REHABILITATION SERVICES INITIAL EVALUATION MR#: [id number] Acct: [id number] Name: TIN BLACKWOOD Rep #: [id number] : 1960 55 From: Cert. ANNA Simms PT, OCS Referring Dr.: Pushpa Barker MD Status: REG RCR Insurance: [employer] Patient's Visit Information TIN BLACKWOOD is a 55 year old F referred to Physical Therapy by Pushpa Barker with a diagnosis of RA, DDD [...] to be FAXED BACK to us at [phone] for Medicare purposes. Please let me know if there are questions or concerns regarding this plan of care. Physician Signature: Date: <Electronically signed by Yury Lawrence PT, Cert. T, OCS> 10/22/16 1356 CC: Pushpa Barker MD MARIN Signed F or Medicare only, by signing this I certify the plan of care. Physicians Signature Date 11-Sep-2016 Chest PA and Lateral Result: Comments: See Note; NOTES: [facility] Imaging Services [address] [place] [address] Verdana 4d Chest PA and Lateral MR#: [id number] Acct: [id number] Name: TIN BLACKWOOD Rep #: [id number] : 1960 F 55 From: Hair Rogers MD PCP: Pushpa Barker MD Status: REG CLI Study: Chest PA and Lateral Date of Exam: 09/11/16 Exam# [id number] Ordering Dr: Pelon Chatterjee MD STUDY: X-RAY [...] EDT Tel , Service support , CC: Pushpa Barker MD; Pelon Chatterjee MD Landscape Contractor: Signed 18-Aug-2016 Foot min 3 Views Result: Comments: See Note; NOTES: [facility] Imaging Services [address] [place] [address] Verdana 4d Foot min 3 Views MR#: [id number] Acct: [id number] Name: TIN BLACKWOOD Rep #: [id number] : 1960 F 55 From: Smith Delaney MD PCP: Pushpa Barker MD Status: REG CLI Study: Foot min 3 Views Date of Exam: 08/18/16 Exam# [id number] Ordering Dr: Pushpa Barker MD STUDY: X-RAY - [facility] CLINICAL: Female, 55 years old. Fell [...] 13:47 EDT , Service support , CC: Pushpa Barker MD Landscape Contractor: Signed 05-Aug-2016 Chest 1 View (Portable) Result: Comments: See Note; NOTES: [facility] Imaging Services [address] [place] [address] Verdana 4d Chest 1 View (Portable) MR#: [id number] Acct: [id number] Name: TIN BLACKWOOD Rep #: [id number] : 1960 F 55 From: Aguilar Joaquin MD PCP: Pushpa Barker MD Status: REG ER Study: Chest 1 View (Portable) Date of Exam: 08/05/16 Exam# [id number] Ordering Dr: Regino Hinson MD STUDY: X-RAY [...] Aguilar Joaquin MD at 9:42 EDT Tel [phone], Service support [phone], CC: Pushpa Barker MD; Regino Hinson MD Landscape Contractor: Signed 01-Jul-2016 Chest WITH Contrast Result: Comments: See Note; NOTES: [facility] Imaging Services [address] [place] [address] Verdana 4d Chest WITH Contrast MR#: [id number] Acct: [id number] Name: TIN BLACKWOOD Rep #: [id number] : 1960 F 55 From: Keyshawn Unger DO PCP: Pushpa Barker MD Status: REG CLI Study: Chest WITH Contrast Date of Exam: 07/01/16 Exam# [id number] Ordering Dr: Pushpa Barker MD STUDY: CT CHES T WITH [...] 22:47 EST Tel , Service support [phone], CC: Pushpa Barker MD Landscape Contractor: Signed 17-Jun-2016 Spine Cervical (Routine) Result: Comments: See Note; NOTES: [facility] Imaging Services [address] [place] [address] Verda 4d Spine Cervical (Routine) MR#: [id number] Acct: [id number] Name: TIN BLACKWOOD p #: [id number] : 1960 F 55 From: Kadie Dailey MD PCP: Pushpa Braker MD Status: REG CLI Study: Spine Cervical (Routine) Date of Exam: 06/17/16 Exam# [id number] Ordering Dr: More Taylor MD STUD Y: [...] MD at 11:29 EST , Service support [phone], CC: More Taylor MD; Pushpa Barker MD Landscape Contractor: Signed 17-Jun-2016 Spine Thoracic (Routine) Result: Comments: See Note; NOTES: [facility] Imaging Services [address] [place] [address] Verpushpa 4d Spine Thoracic (Routine) MR#: [id number] Acct: [id number] Name: TIN BLACKWOOD p #: [id number] : 1960 F 55 From: Kadie Dailey MD PCP: Pushpa Barker MD Status: REG CLI Study: Spine Thoracic (Routine) Date of Exam: 06/17/16 Exam# [id number] Ordering Dr: More Taylor MD STUD Y: [...] MD at 11:55 EST , Service support [phone], CC: Ira Taylor MD; Pushpa Barker MD Landscape Contractor: Signed 29-May-2016 Dexa Bone Density Study (HP) Result: Comments: See Note; NOTES: [facility] Imaging Services [address] [place] [address] Verdana 4d Dexa Bone Density Study () MR#: [id number] Acct: [id number] Name: ELISSA BLACKWOOD Rep #: [id number] : 1960 F 55 From: Aguilar Joaquin MD PCP: Pushpa Barker MD Status: [facility] Study: Dexa Bone Density Study (HP) Date of Exam: 05/29/16 Exam# [id number] Ordering Dr: Pushpa Barker MD STUDY: DUAL ENERGY X-RAY ABSORPTIOMETRY [...] Aguilar Joaquin MD at 13:27 EST Tel [phone], Service support [phone], CC: Pushpa Barker MD Landscape Contractor: Signed 29-May-2016 SCREENING MAMM (CAD), BILAT Result: Comments: See Note; NOTES: [facility] Imaging Services [address] [place] [address] Verdana 4d SCREENING MAMM (CAD), BILAT MR#: [id number] Acct: [id number] Name: TIN BLACKWOOD Rep #: [id number] : 1960 F 55 From: Aguilar Joaquin MD PCP: Pushpa Barker MD Status: [facility] Study: SCREENING MAMM (CAD), BILAT Date of Exam: 05/29/16 Exam# [id number] Ordering Dr: Yoana Barker MD MAMMOGRAPHY - [...] delay biopsy of a clinically suspicious abnormality. [id number] Electronically Signed: Aguilar Joaquin MD at 15:18 EST Tel [phone], Service support [phone], CC: Pushpa Barker MD Landscape Contractor: Signed 29-Nov-2015 NCS and/or EMG Patient Result: Comments: See Note; NOTES: [facility] Pulmonary Services/Neurology [address] [place] [address] NCS and/or EMG Patient MR#: [id number] Acct: [id number] Name: TIN BLACKWOOD Rep #: [id number] : 1960 54 From: Lucas Kiser MD [...] radiculopathy. Lucas hand MD T: NTS JOB: [id number] 11/29/15 0959 <Electronically signed by Lucas Kiser MD> Date Lucas Kiser MD CC: More Taylor MD; Pushpa Barker MD; Lucas Kiser MD Date Dictated: 11/27/15 1145 Date Transcribed: 11/27/15 1145 Landscape Contractor: Signed 12-Oct-2015 Spine Lumbar (Routine) Result: Comments: See Note; NOTES: [facility] Imaging Services [address] [place] [address] Dylan 4d Spine Lumbar (Routine) MR#: [id number] Acct: [id number] Name: TIN BLACKWOOD Rep #: [id number] : 1960 F 54 From: Nabeel Bernabe MD PCP: Pushpa Barker MD Status: REG CLI Study: Spine Lumbar (Routine) Date of Exam: 10/12/15 Exam# [id number] Ordering Dr: More Taylor MD STUDY: MRI [...] MD at 20:50 EDT , Service support [phone], CC: More Taylor MD; Pushpa Barker MD Landscape Contractor: Signed 12-Oct-2015 Lumbar Spine 2 or 3 Views Result: Comments: See Note; NOTES: [facility] Imaging Services [address] [place] [id number] [place] [address] 4d Lumbar Spine 2 or 3 Views MR#: [id number] Acct: [id number] Name: TIN LLOYD Rep #: [id number] : 1960 F 54 From: Simth Delaney MD PCP: Pushpa Barker MD Status: REG CLI Study: Lumbar Spine 2 or 3 Views Date of Exam: 10/12/15 Exam# [id number] Ordering Dr: More Watts MD STUDY: X-RAY [...] FACR at 8:27 EDT , Service support [phone], CC: More Taylor MD; Pushpa Barker MD Landscape Contractor: Signed 12-Oct-2015 Thoracic Spine 3 Views Result: Comments: See Note; NOTES: [facility] Imaging Services [address] [place] [address] Verdana 4d Thoracic Spine 3 Views MR#: [id number] Acct: [id number] Name: TIN BLACKWOOD Rep #: [id number] : 1960 F 54 From: Smith Delaney MD PCP: Pushpa Barker MD Status: REG CLI Study: Thoracic Spine 3 Views Date of Exam: 10/12/15 Exam# [id number] Ordering Dr: More Taylor MD STUDY: X-RAY [...] FACR at 8:26 EDT , Service support [phone], 0082 RAD/Thoracic Spine 3 Views IMPRESSION : Thoracic spondylosis with multilevel degenerative disc disease Electronically Signed: Smith Delaney MD, FACR at 8:26 EDT , Service support [phone], Fax CC: More Taylor MD; Pushpa Barker MD Landscape Contractor: Signed 03-Oct-2015 Chest PA and Lateral Result: Comments: See Note; NOTES: [facility] Imaging Services [address] [place] [address] Verda 4d Chest PA and Lateral MR#: [id number] Acct: [id number] Name: Hero LBACKWOOD Rep #: [id number] : 1960 F 54 From: Aguilar Joaquin MD PCP: Pushpa Barker MD Status: REG CLI Study: Chest PA and Lateral Date of Exam: 10/03/15 Exam# [id number] Ordering Dr: Hortensia Mcnamara i, MD STUDY: [...] Aguilar Joaquin MD at 12:56 EDT Tel [phone], Service support [phone], RAD/Chest PA and Lateral IMPRESSION: Minimal degree of res idual increased markings at the lung bases as compared to prior study. Electronically Signed: Aguilar Joaquin MD at 12:56 EDT Tel [phone], Service support [phone], Fax CC: Pushpa Barker MD; Hortensia Tinajero MD Landscape Contractor: Signed 05-Sep-2015 Kidney and Bladder Result: Comments: See Note; NOTES: [facility] Imaging Services [address] [place] [address] Verdana 4d Kidney and Bladder MR#: [id number] Acct: [id number] Name: KARINA BLACKWOOD Rep #: [id number] : 1960 F 54 From: Aguilar Joaquin MD PCP: Pushpa Barker MD Status: REG CLI Study: Kidney and Bladder Date of Exam: 09/05/15 Exam# [id number] Ordering Dr: Sacha Barker MD STUDY: RENAL [...] Aguilar Joaquin MD at 10:56 EDT Tel [phone], Service support [phone], CC: Pushpa Barker MD Landscape Contractor: Signed 22-Jun-2015 Nuclear Stress Test - Chemical Result: Comments: See Note; NOTES: [facility] Imaging Services [address] [place] [address] Verda 4d Nuclear Stress Test - Chemical MR#: [id number] Acct: [id number] N miguel: TIN BLACKWOOD Rep #: [id number] : 1960 54 From: Dusty Lund MD Primary Care: Pushpa Barker MD Status: REG CLI Ordering Dr: Pushpa Barker MD Sex: F C DATE OF [...] Preserved ejection fraction. Dusty Lund MD T: [facility] JOB: [id number] 06/26/15 1259 & #60;Electronically signed by Dusty Lund MD> Date Dusty Lund MD CC: Pushpa Barker MD Date Dictated: 06/22/151819 Date Transcribed: 06/22/151819 Landscape Contractor: Signed 13-Jun-2015 Lumbar Spine 2 or 3 Views Result: Comments: See Note; NOTES: [facility] Imaging Services [address] [place] [address] Verdana 4d Lumbar Spine 2 or 3 Views MR#: [id number] Acct: [id number] Name: TIN LLOYD Rep #: [id number] : 1960 F 54 From: Smith Delaney MD PCP: Pushpa Barker MD Status: REG CLI Study: Lumbar Spine 2 or 3 Views Date of Exam: 06/13/15 Exam# [id number] Ordering Dr: More Watts MD STUDY: X-RAY [...] FACR at 11:06 EST , Service support [phone], RAD/Lumbar Spine 2 or 3 Views IM PRESSION: Degenerative disc disease at L4-5 and L5-S1. Electronically Signed: Smith Delaney MD, FACR at 11:06 EST , Service support [phone], CC: More Taylor MD; Pushpa Barker MD Landscape Contractor: Signed 13-Jun-2015 Thoracic Spine 3 Views Result: Comments: See Note; NOTES: [facility] Imaging Services [address] [place] [address] Verdana 4d Thoracic Spine 3 Views MR#: [id number] Acct: [id number] Name: TIN BLACKWOOD Rep #: [id number] : 1960 F 54 From: Smith Delaney MD PCP: Pushpa Barker MD Status: REG CLI Study: Thoracic Spine 3 Views Date of Exam: 06/13/15 Exam# [id number] Ordering Dr: More Taylor MD ADDENDUM by Smith Delaney MD on 06/14/15 at 1105 ADDENDUM TECHNIQUE: 3 view(s) o f the thoracic spine were obtained. Electronically Signed: Smith Delaney MD, FACR at 11:05 EST , Service support [phone], 06/14/15 1105 Date cc: More Taylor MD; Pushpa Barker MD * Signed STUDY: X-RAY - [...] FACR at 11:05 EST , Service support [phone], RAD/Thoracic S pine 3 Views IMPRESSION: Thoracic spondylosis Electronically Signed: Smith Delaney MD, FACR at 11:05 EST , Service support [phone], CC: More Taylor MD; Pushpa Barker MD Landscape Contractor: Signed 13-Jun-2015 Thoracic Spine 3 Views Result: Comments: See Note; NOTES: [facility] Imaging Services [address] [place] [address] Verdana 4d Thoracic Spine 3 Views MR#: [id number] Acct: [id number] Name: TIN BLACKWOOD Rep #: [id number] : 1960 F 54 From: Smith Delaney MD PCP: Puspha Barker MD Status: REG CLI Study: Thoracic Spine 3 Views Date of Exam: 06/13/15 Exam# [id number] Ordering Dr: More Taylor MD STUDY: X-RAY [...] FACR at 11:05 EST , Service support [phone], RAD/Thoracic Spine 3 Views IMPRESSION: Thoracic spondylosis Electronic ally Signed: Smith Delaney MD, FACR at 11:05 EST , Service support [phone], CC: More Taylor MD; Pushpa Barker MD Landscape Contractor: Signed 08-Jun-2015 EKG ([id number]) Result: [MEASUREMENTS ANALYSIS] Date of Test: 06/08/2015 13:15:12; Heart Rate: 96; AK Interval: 130; QRS: 88; QT Interval: 340; Corrected QT Interval (QTc): 403; P Wave [place]: 48; QRS Wave [place]: 32; T Wave [place]: 36; Blood Pressure: 120/80 [ECG DIAGNOSTIC STATEMENTS] Date of Test: 06/08/2015 13:15:12; Summary: Sinus Rhythm WITHIN NORMAL LIMITS [MEASUREMENTS ANALYSIS] Date of Test: 06/08/2015 13:14:43; Heart Ra te: 97; AK Interval: 126; QRS: 88; QT Interval: 340; Corrected QT Interval (QTc): 404; P Wave [place]: 51; QRS Wave [place]: 31; T Wave [place]: 40; Blood Pressure: 120/80 [ECG DIAGNOSTIC STATEMENTS] Date of Supriya t: 06/08/2015 13:14:43; Summary: Sinus Rhythm WITHIN NORMAL LIMITS 27-Feb-2015 Chest PA and Lateral Result: Comments: See Note; NOTES: [facility] Imaging Services [address] [place] [address] [facility] 4d Chest PA and Lateral MR#: [id number] Acct: [id number] Name: Hero BLACKWOOD Rep #: [id number] : 1960 F 54 From: Aguilar Joaquin MD PCP: Pushpa Barker MD Status: REG CLI Study: Chest PA and Lateral Date of Exam: 02/27/15 Exam# [id number] Ordering Dr: Ophelia Boogie STUDY: X-RAY CHEST [...] Aguilar Joaquin MD at 13:45 EDT Tel [phone], Service support [phone], RAD/Chest PA and Lateral IMPRES TABBY: Persistent interstitial disease in keeping with known scarring. Improved aeration of both lungs with residual infiltrate in the peripheral aspect of the right lung. Electronically Signed: Darryl Joaquin MD at 13:45 EDT Tel [phone], Service support [phone], CC: Ophelia Boogie; Pushpa Barker MD Landscape Contractor: Signed 05-Feb-2015 Chest PA and Lateral Result: Comments: See Note; NOTES: [facility] Imaging Services [address] [place] [address] Radiology Report MR#: [id number] Acct: [id number] Name: TIN BLACKWOOD Rep #: [id number] : 1960 F 54 From: Vega Payan MD PCP: Pushpa Barker MD Status: REG CLI Study: Chest PA and Lateral Date of Exam: 02/05/15 Exam# [id number] Ordering Dr: Ophelia Boogie STUDY: X-RAY C [...] Vega Payan MD at 17:03 EDT Tel [phone], Service support [phone], -[phone] RAD/Chest PA and Lateral IMPRESSION: 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 Recommend followup till clear. Electronically Signed: Vega Payan MD a t 17:03 EDT Tel [phone], Service support [phone], CC: Ophelia Boogie; Pushpa Barker MD Landscape Contractor: Signed 06-Nov-2014 Operative Report Result: Comments: See Note; NOTES: [facility] Medical Records Department [address] [place] [address] Operative Report MR#: [id number] Acct: [id number] Name: TIN BLACKWOOD Rep #: [id number] : 1960 53 From: Allie Bales MD PCP: Pushpa Barker MD Status: [facility] DATE OF SERVICE: 11/06/2014 DATE OF [...] in stable condition, taken to recovery ro to be discharged home. Will follow up in the office in 1-2 weeks' time. Allie Bales MD T: GUILLAUME JOB: [id number] 11/06/14 1429 <Electronically signed by Allie Bales MD> Raul e Allie Bales MD CC: Allie Bales MD; Pushpa Barker MD Date Dictated: 11/06/14 1231 Date Transcribed: 11/06/14 123 Landscape Contractor: Signed 06-Nov-2014 Discharge Instruction Result: Comments: See Note; NOTES: [facility] Medical Records Department [address] [place] [address] Instructions for Home/Discharge Instructions 11/06/14 1204 MR#: [id number] ct: [id number] Name: TIN BLACKWOOD Rep #: [id number] : 1960 53 From: Allie Bales MD PCP: Pushpa Barker MD Status: REG [facility] Discharge Diet: No Restrictions Discharge Activity: Return [...] Bales MD> Date Allie Bales MD CC: Pushpa Barker MD 06-Nov-2014 Operative Report Result: Comments: See Note; NOTES: [facility] Medical Records Department [address] [place] [address] Operative Report 11/06/14 1202 MR#: [id number] Acct: [id number] Name: TIN BLACKWOOD Rep #: [id number] : 1960 53 From: Allie Bales MD PCP: Pushpa Braker MD Status: REG NVC Y Location: [place] [address] Operative Report (Blank) Date of Procedure: 11/06/14 Preop: Mary rrhagia, thickened endometrium Postop: Same Procedure: D and C, hysteroscopy Surgeon: Amairain EBL: minimal Fluids: Lactated ringers Meds: 10cc local Lidocaine to cervix, Clindamycin and Gent amycin IV preop Anesthesia: MAC + local Lidocaine Urine: 200cc clear urine 11/06/14 1204 <Electronically signed by Allie Bales MD> Date Allie Bales MD CC: Allie Bales MD; Pushpa Barker MD Signed 24-Jul-2014 Transvaginal Non- Result: Comments: See Note; NOTES: [facility] Imaging Services [address] [place] [address] Ultrasound Report MR#: [id number] Acct: [id number] Name: TIN BLACKWOOD Rep #: [id number] : 1960 F 53 From: Aguilar Joaquin MD PCP: Pushpa Barker MD Status: REG CLI Study: Transvaginal Non- Date of Exam: 07/24/14 Exam# [id number] Ordering Dr: Ophelia Boogie STUDY: ULTRASOUND OF [...] Aguilar Joaquin MD at 10:36 EDT Tel [phone], Service support [phone], CC: Ophelia Boogie; Pushpa Barker MD Landscape Contractor: Signed 24-Jul-2014 Pelvic (Non ) Result: Comments: See Note; NOTES: [facility] Imaging Services [address] [place] [address] Ultrasound Report MR#: [id number] Acct: [id number] Name: TIN BLACKWOOD Rep #: [id number] : 1960 F 53 From: Aguilar Joaquin MD PCP: Pushpa Barker MD Status: REG CLI Study: Pelvic (Non ) Date of Exam: 07/24/14 Exam# [id number] Ordering Dr: Ophelia Boogie STUDY: ULTR ASOUND [...] Darryl Joaquin MD at 10:36 EDT Tel [phone], Service support [phone], CC: Ophelia Boogie; Pushpa Barker MD Landscape Contractor: Signed 05-Sep-2013 Cerv Spine 4 or 5 Views Result: Comments: See Note; NOTES: [facility] Imaging Services [address] [place] [address] Radiology Report MR#: [id number] Acct: [id number] Name: TIN BLACKWOOD Rep #: [id number] : 1960 F 52 From: Vazquez Kaye MD PCP: Pushpa Barker MD Status: REG CLI Study: Cerv Spine 4 or 5 Views Date of Exam: 09/05/13 Exam# [id number] Ordering Dr: More Taylor MD STUDY: X-RAY [...] MD at 14:28 EDT , Service support [phone], RAD/Cerv Spine 4 or 5 Views IMPRESSION: Multilevel degenerative changes, 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 No significant interval change Electronically Signed: Glenn Kaye MD at 14:28 EDT , Service support [phone] , CC: More Taylor MD; Pushpa Barker MD Landscape Contractor: Signed 10-Feb-2013 Hand Min 3 Views Result: Comments: See Note; NOTES: [facility] Imaging Services [address] [place] [address] Radiology Report MR#: [id number] Acct: [id number] Name: TIN BLACKWOOD Rep #: [id number] : 1960 F 52 From: Julio Cannon MD PCP: Status: REG CLI Study: Hand Min 3 Views Date of Exam: 02/10/13 Exam# [id number] Ordering Dr: Pushpa Barker MD STUDY: X-RAY - RIGHT HAND [...] February 10, 2013 at 10:35:57 PM EDT [phone] Electronically Signed BP/BP If you are the refe rring physician and would like to consult with the radiologist who provided this interpretation, please contact Julio Cannon M.D. at [phone]. If this radiologist is unavailable, you will [...] return or destruction of these documents. CC: Pushpa Barker MD Landscape Contractor: Signed 10-Feb-2013 Hand Min 3 Views Result: Comments: See Note; NOTES: [facility] Imaging Services [address] [place] [address] Radiology Report MR#: [id number] Acct: [id number] Name: TIN BLACKWOOD Rep #: [id number] : 1960 F 52 From: Julio Cannon MD PCP: Status: REG CLI Study: Hand Min 3 Views Date of Exam: 02/10/13 Exam# [id number] Ordering Dr: Pushpa Barker MD STUDY: X-RAY - LEFT HAND [...] February 10, 2013 at 10:36:47 PM EDT [phone] Electronically Signed BP/BP If you are the referring physician and would like to consult with the radiologist who provided this interpretation, please contact Julio Cannon M.D. at [phone]. If this radiologist is juan carlosa alfonso, you will be directed to another radiologist to assist. If you are a patient with a question regarding this report, please contact your referring physician directly. Professional Interpretatio n Provided By: [employer], Phone , These documents contain legally protected [...] return or destruction of these documents. 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 No Drug Use 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 Tobacco Use: Current every day smoker. 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 Non Smoker/No Tobacco Use Status: Inactive Tobacco use: Former smoker. Status: Inactive Smoking Status Name Dates Details Current every day smoker Vital Signs Date Test Result Details 11-Fiq-787723:06 Temperature 97.4 f Comments: Method: Oral Pulse [...] 0.00 cm Results Date Description Value Details 11-Bai-52740:00 Tissue Biopsy See Note (Normal) Comments: [facility] [address] [place], [address] Comments: Patient: TIN BLACKWOOD : 1960 (57/F) Acct Num: [id number] Phys: Jose L Torres DDS Unit Num: [id number] Loc: [facility] Specimen: [id number] Received: 02/19/18 - 1513 Spec Typ e: [...] time of embedding. / Mahendra TC:5 CPT: 19530 HEADER OPERATION: Biopsy cheek/lip PRE-OP DIAGNOSIS: Probable fibroma TISSUE SUBMITTED: Biopsy cheek/lip MICROSCOPIC DESCRIPTION Slides are reviewed. MICROSCOPIC DI AGNOSIS Cheek/lip, biopsy: Squamous mucosa with subepithelial fibrosis, consistent with irritation fibroma. JANES:tammy 02/22/18 Signed Jarrod Holland 02/22/18 <signature on file> 0-Umt-547625:19 HgA1C , Office (69097) HgA1C , Office 6.1 % (Normal) Range: 4.6 - 7.1 :19 Blood Glucose , Office (96346) Blood Glucose , Office 153 (Normal) :19 Urinalysis, Office (49937) UA - LEUKOCYTE ESTERASE Negative (Normal) UA - NITRITE Negative (Normal) URINE UROBILINGN SRAVANI TIMED Normal mg/dL (Normal) UA - PROTEIN Negative mg/dL (Normal) UA - PH 7 (Normal) UA - BLOOD Negative (Normal) UA - SPECIFIC GRAVITY 1.010 (Normal) UA - KETONES Negative mg/dL (Normal) UA - BILIRUBIN Negative (Normal) UA - GLUCOSE Negative (Normal) 9-Jig-743024:42 CBC-Complete Blood Cnt No Diff Comments: [facility] [address] [place], [address] MPV 9.7 fL (Normal) Range: [...] 4.2-5.4 WBC 8.0 K/mm3 (Normal) Range: 4.4-11.0 :42 Differential Comment Comments: [facility] [address] [place], [address] SMEAR COMMENT SCANNED (Normal) Comments: 1+ ANISOCYTOSIS 2-Crg-863336:42 Liver Profile Comments: Comments: [facility] [address] [place], [id number] D BILI 0.14 mg/dL (Normal) Range: 0.00-0.30 T BILI 0.60 mg/dL (Normal) Range: 0.20-1.00 ALT 49 U/L (Normal) Range: 13-56 ALK P 46 U/L (Normal) Range: 45-117 AST 25 U/L (Normal) Range: 15-37 GLOB 3.4 g/dL (Normal) Range: 2.2-4.2 ALB 3.6 g/dL (Normal) Range: 3.2-5.0 T PROT 7.0 g/dL (Normal) Range: 6.4-8.2 09-Nef-204651:21 CBC-Complete Blood Cnt No Diff Comments: [facility] [address] [place], [place], [id number] MPV 10.2 fL (Normal) Range: 6.2-12.0 PLT [...] 4.2-5.4 WBC 8.0 K/mm3 (Normal) Range: 4.4-11.0 46-Vin-831977:21 Liver Profile Comments: [facility] [address] [place], [place], [address] D BILI 0.14 mg/dL (Normal) Range: 0.00-0.30 T BILI 0.80 mg/dL (Normal) Range: 0.20-1.00 ALT 50 U/L (Normal) Range: 13-56 ALK P 42 U/L (Abnormal) Range: 45-117 AST 30 U/L (Normal) Range: 15-37 GLOB 3.6 g/dL (Normal) Range: 2.2-4.2 ALB 4.0 g/dL (Normal) Range: 3.2-5.0 T PROT 7.6 g/dL (Normal) Range: 6.4-8.2 :48 HEPATIC FUNCTION PANEL Comments: PATIENT NOT FASTINGPERFORMED BY: [facility] [place] [address] [id number] (34697) ALT (SGPT) 45 [iU]/L (Abnormal) Range: 0-32 AST (SGOT) 33 [iU]/L (Normal) Range: 0-40 Alkaline Phosphatase 39 [iU]/L (Normal) Range: 39-117 Bilirubin, Direct 0.08 mg/dL (Normal) Range: 0.00-0.40 Bilirubin, Total 0.3 mg/dL (Normal) Range: 0.0-1.2 Protein, Total 6.8 g/dL (Normal) Range: 6.0-8.5 :48 T3, FREE (TRIDOTHYRONINE) (38970) Comments: PATIENT NOT FASTINGPERFORMED BY: [facility] [facility] [id number] Triiodothyronine (T3), Free 2.6 pg/mL (Normal) Range: 2.0-4.4 :48 T4, FREE (THYROXINE) (24148) Comments: PATIENT NOT FASTINGPERFORMED BY: [facility] [facility] [id number] T4,Free(Direct) 0.90 ng/dL (Normal) Range: 0.82-1.77 :48 TSH (68530) Comments: PATIENT NOT FASTINGPERFORMED BY: [facility] [place] [address] [id number] TSH 0.333 {uIU/mL} (Abnormal) Range: 0.450-4.500 7-Pie-865212:48 Renal function Panel (20937) Comments: PATIENT NOT FASTINGPERFORMED BY: [facility] [address] [place] [id number] Albumin 4.6 g/dL (Normal) Range: 3.5-5.5 Phosphorus [...] 6-24 Glucose 118 mg/dL (Abnormal) Range: 65-99 42-Omo-293669:54 CBC-Complete Blood Cnt No Diff Comments: [facility] [address] [place], [place], [address] MPV 10.3 fL (Normal) Range: 6.2-12.0 PLT [...] 4.2-5.4 WBC 7.3 K/mm3 (Normal) Range: 4.4-11.0 06-Ldo-454454:54 Liver Profile Comments: [facility] [address] [place], [place], [address] D BILI 0.09 mg/dL (Normal) Range: 0.00-0.30 T BILI 0.40 mg/dL (Normal) Range: 0.20-1.00 ALT 49 U/L (Normal) Range: 13-56 ALK P 58 U/L (Normal) Range: 45-117 AST 22 U/L (Normal) Range: 15-37 GLOB 3.4 g/dL (Normal) Range: 2.2-4.2 ALB 3.9 g/dL (Normal) Range: 3.2-5.0 T PROT 7.3 g/dL (Normal) Range: 6.4-8.2 37-Chn-061492:13 Liver Profile Comments: [facility] [address] [place], [place], [id number] D BILI 0.07 mg/dL (Normal) Range: 0.00-0.30 T BILI 0.40 mg/dL (Normal) Range: 0.20-1.00 ALT 49 U/L (Normal) Range: 13-56 Comments: Please note revised ALT reference range zhrdxrfif62/28/2018. ALK P 53 U/L (Normal) Range: 45-117 AST 22 U/L (Normal) Range: 15-37 GLOB 3.3 g/dL (Normal) Range: 2.2-4.2 ALB 4.0 g/dL (Normal) Range: 3.2-5.0 T PROT 7.3 g/dL (Normal) Range: 6.4-8.2 8-Erz-856027:59 CBC-Complete Blood Cnt No Diff Comments: [facility] [address] [place], [place], [id number] MPV 10.4 fL (Normal) Range: 6.2-12.0 PLT [...] 4.2-5.4 WBC 9.1 K/mm3 (Normal) Range: 4.4-11.0 3-Pwz-216607:59 Erythrocyte Sed Rate Comments: [facility] [address] [place], [place], [id number] SED RATE 15 mm/h (Normal) Range: 0-30 35-Lor-558391:22 CBC-Complete Blood Cnt No Diff Comments: [facility] [address]ms[address] [place], [place], [address] MPV 10.4 fL (Normal) Range: 6.2-12.0 PLT [...] 4.2-5.4 WBC 7.6 K/mm3 (Normal) Range: 4.4-11.0 67-Tox-253023:22 Liver Profile Comments: Comments: [facility] Gdxztvniak4780 [facility] [address] [place], [place], [address] D BILI 0.12 mg/dL (Normal) Range: 0.00-0.30 T BILI 0.60 mg/dL (Normal) Range: 0.20-1.00 ALT 38 U/L (Normal) Range: 13-56 Comments: Please note revised ALT reference range ilpgbtabt31/28/2018. ALK P 53 U/L (Normal) Range: 45-117 AST 31 U/L (Normal) Range: 15-37 GLOB 3.2 g/dL (Normal) Range: 2.2-4.2 ALB 3.7 g/dL (Normal) Range: 3.2-5.0 T PROT 6.9 g/dL (Normal) Range: 6.4-8.2 49-Ruv-819590:33 CBC-Complete Blood Cnt No Diff Comments: [facility] [address]if[address] [facility] [address] [place], [place], [id number] MPV 10.7 fL (Normal) Range: 6.2-12.0 PLT [...] 4.2-5.4 WBC 11.5 K/mm3 (Abnormal) Range: 4.4-11.0 30-Tia-179336:33 Liver Profile Comments: [facility] [address] [place], [place], [id number] D BILI 0.09 mg/dL (Normal) Range: 0.00-0.30 T BILI 0.60 mg/dL (Normal) Range: 0.20-1.00 ALT 33 U/L (Normal) Range: 13-56 Comments: Please note revised ALT reference range gclywfxhk83/28/2018. ALK P 59 U/L (Normal) Range: 45-117 AST 15 U/L (Normal) Range: 15-37 GLOB 3.7 g/dL (Normal) Range: 2.2-4.2 ALB 3.8 g/dL (Normal) Range: 3.2-5.0 T PROT 7.5 g/dL (Normal) Range: 6.4-8.2 37-Lte-427745:29 CBC-Complete Blood Cnt No Diff Comments: [facility] [address] [place], [address] MPV 11.1 fL (Normal) Range: [...] 4.2-5.4 WBC 9.5 K/mm3 (Normal) Range: 4.4-11.0 84-Vls-884777:29 Liver Profile Comments: [facility] Ukwajwlfby8294 [facility] [address] [place], [place], [address] D BILI 0.10 mg/dL (Normal) Range: 0.00-0.30 T BILI 0.40 mg/dL (Normal) Range: 0.20-1.00 ALT 29 U/L (Normal) Range: 12-78 ALK P 51 U/L (Normal) Range: 45-117 AST 12 U/L (Abnormal) Range: 15-37 GLOB 3.6 g/dL (Normal) Range: 2.2-4.2 ALB 3.9 g/dL (Normal) Range: 3.4-5.0 Comments: Please note revised Albumin AND Globulin reference rangeeffective 2017. T PROT 7.5 g/dL (Normal) Range: 6.4-8.2 7-Nsa-557146:34 Gram Stain w/Sputum Cult Comments: PATIENT NOT FASTINGPERFORMED BY: [facility]CoK[facility] for RehabilitationIkqcth1807 [facility] [id number] Information: SRC:SP Rflx Gram Stain Evaluation GSACC (Normal) Comments: This specimen is of good quality and is acceptable for routinebacterial culture. Result 1 GNRF (Normal) Comments: Few gram negative rods.Few gram positive cocciRare gram negative coccobacilli Epithelial Cells Few (Normal) White Blood Cells None seen (Normal) 6-Lag-846899:34 Sputum Culture Comments: PATIENT NOT FASTINGPERFORMED BY: [facility]6370 [facility] [id number] Result 1 RRF (Normal) Comments: Routine respiratory roxanne Lower Respiratory Culture Final report (Normal) 2-Pbw-589386:12 TSH (36324) Comments: PATIENT NOT FASTINGPERFORMED BY: [facility]6370 [facility] [id number] TSH 0.434 {uIU/mL} (Abnormal) Range: 0.450-4.500 0-Gaz-114024:12 T3, FREE (TRIDOTHYRONINE) (76645) Comments: PATIENT NOT FASTINGPERFORMED BY: [facility]6370 [facility] [id number] Triiodothyronine,Free,Serum 3.0 pg/mL (Normal) Range: 2.0-4.4 2-Xlo-468328:12 T4, FREE (THYROXINE) (47442) Comments: PATIENT NOT FASTINGPERFORMED BY: [facility]6370 [facility] [id number]; review 05/15 T4,Free(Direct) 1.22 ng/dL (Normal) Range: 0.82-1.77 11-Mqh-292841:14 CBC-Complete Blood Cnt No Diff Comments: [facility] [address] [facility] [place], [place], [address] MPV 10.8 fL (Normal) Range: 6.2-12.0 PLT [...] 4.2-5.4 WBC 7.7 K/mm3 (Normal) Range: 4.4-11.0 24-Voh-545304:14 Liver Profile Comments: [facility] [address] [place], [place], [address] D BILI 0.11 mg/dL (Normal) Range: 0.00-0.30 T BILI 0.60 mg/dL (Normal) Range: 0.20-1.00 ALT 31 U/L (Normal) Range: 12-78 ALK P 51 U/L (Normal) Range: 45-117 AST 22 U/L (Normal) Range: 15-37 GLOB 3.3 g/dL (Normal) Range: 2.2-4.2 ALB 3.7 g/dL (Normal) Range: 3.4-5.0 Comments: Please note revised Albumin AND Globulin reference rangeeffective 2017. T PROT 7.0 g/dL (Normal) Range: 6.4-8.2 1-Pxw-105685:36 CBC-Complete Blood Cnt No Diff Comments: BONEZZI ORDERED TSH,FT4,FT3,AND TPOSTANDING ORDER FROM SIBILIA CBC AND LIVER.[facility] [address] [place], [place], [phone] MPV 10.7 fL (Normal) Range: 6.2-12.0 PLT [...] (Normal) Range: 4.4-11.0 :36 Free T3 Comments: [facility] [address] [place], [address] FREE T3 2.6 pg/mL (Normal) Range: 2.18-3.98 0-Xeb-254490:36 Liver Profile Comments: [address], [address] D BILI 0.07 mg/dL (Normal) [...] Range: 6.4-8.2 :36 T4 Free Direct Comments: [facility] [address] [place], [address] T4 FREE DIRECT 0.84 ng/dL (Normal) Range: 0.76-1.46 :36 Thyroid Peroxidase AB Comments: [facility] (refer to report for specific site)refer to report for address and phone number TPO AB [phone] 11 {IU/mL} (Normal) Range: 0-34 Comments: Performed at: [address] [id number] Director: Jose L Patel PhD, Phone: [phone] 8-Jom-635631:36 Thyroid Stim Hormone (TSH) Comments: [facility] [address] [place], [place], [address] TSH 0.36 {uIU/mL} (Normal) Range: 0.358-3.74 90-Rpr-001557:03 CBC-Complete Blood Cnt No Diff Comments: [place] [address] [place], [address] MPV 10.4 fL (Normal) Range: 6.2-12.0 PLT [...] 4.2-5.4 WBC 9.2 K/mm3 (Normal) Range: 4.4-11.0 72-Iaf-299553:03 Liver Profile Comments: [place] [address] [place], [address] D BILI 0.11 mg/dL (Normal) Range: 0.00-0.30 T BILI 0.40 mg/dL (Normal) Range: 0.20-1.00 ALT 30 U/L (Normal) Range: 12-78 ALK P 52 U/L (Normal) Range: 45-117 AST 14 U/L (Abnormal) Range: 15-37 GLOB 3.4 g/dL (Normal) Range: 2.2-4.2 ALB 4.1 g/dL (Normal) Range: 3.4-5.0 Comments: Please note revised Albumin AND Globulin reference rangeeffective 2017. T PROT 7.5 g/dL (Normal) Range: 6.4-8.2 11-Jxx-498040:28 CBC-Complete Blood Cnt No Diff Comments: [place] [address] [place], [address] MPV 11.1 fL (Normal) Range: 6.2-12.0 PLT [...] 4.2-5.4 WBC 8.7 K/mm3 (Normal) Range: 4.4-11.0 30-Yat-387067:28 Liver Profile Comments: [facility] [address] [place], [address] D BILI 0.13 mg/dL (Normal) [...] T PROT 6.9 g/dL (Normal) Range: 6.4-8.2 31-Mdk-449714:57 CBC-Complete Blood Cnt No Diff Comments: [facility] [address] [place], [address] MPV 10.9 fL (Normal) Range: [...] 4.2-5.4 WBC 7.8 K/mm3 (Normal) Range: 4.4-11.0 4-Etm-976563:07 CBC-Complete Blood Cnt No Diff Comments: [facility] Ksez[address]menun[address] [facility] [address] [place], [place], [address] MPV 11.2 fL (Normal) Range: 6.2-12.0 PLT [...] 4.2-5.4 WBC 9.1 K/mm3 (Normal) Range: 4.4-11.0 8-Upe-443451:07 Liver Profile Comments: [facility] Mgakbiuipx1614 [facility] [address] [place], [place], [address] D BILI 0.09 mg/dL (Normal) Range: 0.00-0.30 T BILI 0.20 mg/dL (Normal) Range: 0.20-1.00 ALT 34 U/L (Normal) Range: 12-78 ALK P 55 U/L (Normal) Range: 45-117 AST 15 U/L (Normal) Range: 15-37 GLOB 3.3 g/dL (Normal) Range: 2.3-3.5 ALB 3.5 g/dL (Normal) Range: 3.4-5.0 T PROT 6.8 g/dL (Normal) Range: 6.4-8.2 81-Cpc-270775:40 URINE ALISSON CULTURE-IDENTIFICATN Comments: PERFORMED BY: CB [facility] Aaxrvl[address] [place] [id number] Information: SRC:UR (46731) Antimicrobial MIHEAD (Normal) Comments: S = Susceptible; [...] mL (Abnormal) Urine Final report Culture,Comprehensive (Abnormal) 05-Etn-677438:47 Urinalysis, Office (96059) UA - LEUKOCYTE ESTERASE Small (Normal) UA - NITRITE Negative (Normal) URINE UROBILINGN SRAVANI TIMED Normal mg/dL (Normal) UA - PROTEIN Negative mg/dL (Normal) UA - PH 6 (Abnormal) UA - BLOOD Negative (Normal) UA - SPECIFIC GRAVITY 1.005 (Normal) UA - KETONES Negative mg/dL (Normal) UA - BILIRUBIN Negative (Normal) UA - GLUCOSE Negative (Normal) 06-Aic-424892:58 Basic Metabolic Profile (BMP) Comments: 'TROP' Serial specimen #1, #2, #3, or #4: [address] [place] [address] [address] [place], [place], [address] GAP 10 (Normal) Range: 5-15 CO2 25.0 [...] 7-18 GLU 92 mg/dL (Normal) Range: 70-110 44-Iqu-657878:58 CBC W/Diff, Automated Comments: [facility] [address] [place], [address] Absolute Lymph 1.13 {X10_3/ul} (Normal) Range: 0.83-4.51 [...] Serial specimen #1, #2, #3, or #4: [facility] Zcnlmwkisq1019 [facility] [address] [place], [place], [address] TROPONIN-I 0.11 ng/mL (Abnormal) Comments: TROPONIN-I EXPECTED VALUES <0.05 NEGATIVE 0.06 - 0.59 AT RISK OF [place] > OR = 0.60 SUGGEST IL :56 CBC W/Diff, Automated Comments: [facility] Axtsztdszi3465 [facility] [address] [place], [place], [address] Absolute Lymph 1.30 {X10_3/ul} (Normal) Range: 0.83-4.51 [...] 4.2-5.4 WBC 9.2 K/mm3 (Normal) Range: 4.4-11.0 61-Uak-584963:56 Comprehensive Metabolic Profil Comments: [facility] [address] [place], [place], [address] GAP 8 (Normal) Range: 5-15 CO2 29.0 [...] <126 mg/dLsuggests IMPAIRED HOMEOSTASIS per A.D.A. criteria. 15-Czn-334756:39 CBC W/Diff, Automated Comments: [facility] [address] [place], [place], [address] Absolute Lymph 1.40 {X10_3/ul} (Normal) Range: 0.83-4.51 [...] 4.2-5.4 WBC 8.8 K/mm3 (Normal) Range: 4.4-11.0 :39 Comprehensive Metabolic Profil Comments: [facility] [address] [place], [place], [address] GAP 7 (Normal) Range: 5-15 CO2 30.0 [...] 126 mg/dLsuggests DIABETES MELLITUS per A.D.A. criteria. 08-Oxy-994240:43 Homocysteine, Plasma (36144) Comments: PATIENT NOT FASTINGPERFORMED BY: [facility]CoKessler Institute for RehabilitationMmokwq6190 [facility] [id number] Homocyst(e)ine, Plasma 9.3 umol/L (Normal) Range: 0.0-15.0 72-Lxn-570476:12 CRP, High Sensitivity Cardiac Comments: [facility] [address] [place], [place], [address] CRP HIGH SENS 1.10 mg/L (Normal) Comments: Low Relative Risk of CVD <1.0 mg/L Average Relative Risk of CVD 1.0 - 3.0 mg/L High Relative Risk of CVD >3.0 mg/L 58-Iqk-987385:12 Erythrocyte Sed Rate Comments: [facility] [address] [place], [address] SED RATE 24 mm/h (Normal) Range: 0-30 :28 CBC WITH MANUAL DIFF (89111) Comments: PATIENT NOT FASTINGPERFORMED BY: NILE [facility] Dyvcey5451 [facility] [id number] Immature Grans (Abs) 0.0 {x10E3/uL} (Normal) Range: [...] 3.77-5.28 WBC 7.3 {x10E3/uL} (Normal) Range: 3.4-10.8 2-Mct-111859:28 Metabolic Panel, Basic Comments: PATIENT NOT FASTINGPERFORMED BY: [facility] Mbxnwz6799 [facility] [id number]; will review at 09/04 appt (70290) Calcium, Serum 9.4 mg/dL (Normal) Range: 8.7-10.2 [...] Glucose, Serum 107 mg/dL (Abnormal) Range: 65-99 32-Pgg-387186:31 CBC With Differential/Platelet Comments: PATIENT NOT FASTINGPERFORMED BY: LabCoChristian [place] [address] [facility] [id number] Immature Grans (Abs) 0.0 {x10E3/uL} Range: 0.0-0.1 [...] ANGELA (Normal) Comments: PATIENT NOT FASTINGPERFORMED BY: Fluid Vbceno5353 [facility] [id number] 13:31 Comments: WRITTEN AUTHORIZATION RECEIVED.AUTHORIZATION RECEIVED FROM JACKIE BRUNO LPN [id number] BY RADHA EMMANUEL 15-Hsb-282663:31 CBC (Auto) (38624) Comments: PATIENT NOT FASTINGPERFORMED BY: Fluid Ymjrlr9425 [facility] [id number] Platelets 416 {x10E3/uL} (Abnormal) Range: 150-379 RDW 17.2 % (Abnormal) Range: 12.3-15.4 MCHC 32.4 g/dL (Normal) Range: 31.5-35.7 MCH 27.0 pg (Normal) Range: 26.6-33.0 MCV 83 fL (Normal) Range: 79-97 Hematocrit 36.7 % (Normal) Range: 34.0-46.6 Hemoglobin 11.9 g/dL (Normal) Range: 11.1-15.9 RBC 4.40 {x10E6/uL} (Normal) Range: 3.77-5.28 WBC 12.7 {x10E3/uL} (Abnormal) Range: 3.4-10.8 68-Szi-544162:31 Magnesium (44812) Comments: PATIENT NOT FASTINGPERFORMED BY: Fluid Vnnwuo8792 [facility] [id number] Magnesium, Serum 2.0 mg/dL (Normal) Range: 1.6-2.3 15-Egr-909189:31 Renal function Panel (04814) Comments: PATIENT NOT FASTINGPERFORMED BY: [facility] Gkquhr3001 [facility] [id number] Albumin, Serum 4.1 g/dL (Normal) Range: 3.5-5.5 [...] Glucose, Serum 99 mg/dL (Normal) Range: 65-99 5-Pog-564027:16 Lactic Acid Comments: [facility] Qphybwdcoe0691 [facility] [place], [place], [address] LACTIC ACID 1.2 mmol/L (Normal) Range: 0.4-2.0 :52 BNP,B-Type NATRIURETIC PEPTIDE Comments: [facility] Xgpbgfrtza8021 [facility] [place] [place], [address] B-TYPE BRENT PEP 89.7 pg/mL (Normal) Range: 0-100 :52 CBC W/Diff, Automated Comments: [facility] Kowgxbyknk5672 [facility] [place], [place], [address] Absolute Lymph 1.12 {X10_3/ul} (Normal) Range: 0.83-4.51 [...] Serial specimen #1, #2, #3, or #4: [address] [place] [address] [address] [place], [address] GAP 5 (Normal) Range: 5-15 CO2 24.0 mmol/L (Normal) Range: 21.0-32.0 CL 100 mmol/L (Normal) Range: 98-107 K 2.8 mmol/L (Abnormal) Range: 3.5-5.1 NA 129 mmol/L (Abnormal) Range: 136-145 Comments: Critical Result(s) Called at: 10:33:42 08/05/2016 by: Jeison NOEL 0.60 mg/dL (Normal) Range: 0.20-1.00 ALT 56 [...] Serial specimen #1, #2, #3, or #4: [address] [place], [address] TROPONIN-I 0.73 ng/mL (Abnormal) Comments: TROPONIN-I EXPECTED VALUES <0.05 NEGATIVE 0.06 - 0.59 AT RISK OF IL > OR = 0.60 SUGGEST IL :43 Base Excess ISTAT Comments: [place] [address] [place] [address] BE ISTAT 1 mmol/L (Normal) :43 Bicarbonate ISTAT Comments: [place] [address] [place] [address] HCO3 ISTAT 26 mmol/L (Normal) Range: 22-26 Comments: Site = R RadialDevice = Vent MaskFIO2 = 40Results To = ED MDTime Given = 949 :43 Blood Gas Specimen Type Comments: [place] [address] [place] [address] BLD GAS TYPE ART (Normal) :43 pCO2 - ISTAT 40.0 {mmHg} (Normal) Comments: [place] [address] [address] [place] [address] Range: 35-45 :43 pH - I-STAT 7.42 (Normal) Comments: [place] [address] [address] [place] [address] Range: 7.35-7.45 :43 PO2 I-STAT 68 {mmHG} (Abnormal) Comments: [place] [address] [address] [place] [address] Range: 75-100 :43 SO2 ISTAT 94 % (Abnormal) Comments: [place] [address] [address] [place] [address] Range: 95-99 :43 Total Carbon Dioxide ISTAT Comments: [place] [address] [place] [address] TOTAL CO2 ISTAT 27 mmol/L (Normal) 27-Zsc-203962:06 CBC W/Diff, Automated Comments: [place] [address] [place], [address] Absolute Lymph 1.60 {X10_3/ul} (Normal) Range: [...] 4.2-5.4 WBC 6.3 K/mm3 (Normal) Range: 4.4-11.0 53-Pyo-390651:06 Comprehensive Metabolic Profil Comments: [facility] [address]of[address] [place], [address] GAP 5 (Normal) Range: 5-15 CO2 30.0 [...] 7-18 GLU 102 mg/dL (Normal) Range: 70-110 33-Bdk-303158:30 PAP I-G w/rfx hrHPV Comments: CYTOLOGY INFORMATION:- CLINICAL INFORMATION:- DATE LMP/MENOPAUSE: MENOPAUSE- COLLECTION VIAL: Thin Prep Vial- RN SOCIAL SERVICES SOURCE: CERVICAL/ENDOCERVICAL- COLLECTION TECHNIQUE: BRUSH/SPATULACYTOLOGY INFORMATION :- CLINICAL INFORMATION:- DATE LMP/MENOPAUSE: MENOPAUSE- COLLECTION VIAL: Thin Prep Vial- RN SOCIAL SERVICES SOURCE: CERVICAL/ENDOCERVICAL- COLLECTION TECHNIQUE: BRUSH/SPATULASpecimen Comment: [id number] imramonita Comment: No. of containers..01 CYTYC Thin Prep [facility]ialLab[facility] (refer to report for specific site)refer to report for address and phone number HPV RFLX Comment (Normal) Comments: The HPV DNA reflex criteria were not met with this specimenresult therefore, no HPV testing was performed.Performed at: [address] [id number] Director: Selene Munoz MD, Phone: [phone] PAPSMR Comment (Normal) Comments: The Pap smear [...] system. PERFORM Comment (Normal) Comments: Dioni Pereira, Coagulant Dipper (ASCP) ADEQ Comment (Normal) Comments: Satisfactory for evaluation. Endocervical and/or squamous metaplasticcells (endocervical component) are present. DIAGN Comment (Normal) Comments: NEGATIVE FOR INTRAEPITHELIAL LESION AND MALIGNANCY. 03-Wyj-753479:09 CBC W/Diff, Automated Comments: [facility] [address] [place], [place], [address] Absolute Lymph 1.61 {X10_3/ul} (Normal) Range: 0.83-4.51 [...] 4.2-5.4 WBC 7.3 K/mm3 (Normal) Range: 4.4-11.0 01-Fqk-033245:09 Comprehensive Metabolic Profil Comments: [facility] [address]dnpnzmb[address] [place], [place], [address] GAP 8 (Normal) Range: 5-15 CO2 30.0 [...] 7-18 GLU 90 mg/dL (Normal) Range: 70-110 63-Rlh-147998:09 Lipid Profile Comments: [facility] [address]ai[address] [place], [place], [address] VLDL 11 mg/dL (Normal) Range: 5-40 LDL [...] 200-240 mg/dL Borderline >240 mg/dL High Risk 57-Edl-484577:56 Ferritin (44799) Comments: PATIENT NOT FASTINGPERFORMED BY: NILE [facility] Cmawem[address]25 [place] [id number] Information: NURSE DRAW Ferritin, Serum 35 ng/mL (Normal) Range: 15-150 56-Wpo-735423:06 Lipid Profile Comments: [facility] [address] [place], [address] VLDL 14 mg/dL (Normal) Range: [...] 200-240 mg/dL Borderline >240 mg/dL High Risk 38-Xeu-509638:11 CBC W/Diff, Automated Comments: [facility] [address] [place], [place], [address] Absolute Lymph 1.06 {X10_3/ul} (Normal) Range: 0.83-4.51 [...] 4.2-5.4 WBC 9.4 K/mm3 (Normal) Range: 4.4-11.0 20-Wwz-765286:11 Comprehensive Metabolic Profil Comments: [facility] [address]ynkgzi[address] [place], [place], [address] GAP 9 (Normal) Range: 5-15 CO2 29.0 [...] 7-18 GLU 100 mg/dL (Normal) Range: 70-110 25-Hdo-042232:59 CBC W/Diff, Automated Comments: [facility] [address]isfp[address] [place], [address] Absolute Lymph 1.33 {X10_3/ul} (Normal) Range: 0.83-4.51 [...] 4.2-5.4 WBC 3.7 K/mm3 (Abnormal) Range: 4.4-11.0 83-Vcf-446397:59 Comprehensive Metabolic Profil Comments: [facility] [address]fpjl[address] [place], [place], [address] GAP 7 (Normal) Range: 5-15 CO2 28.0 [...] 7-18 GLU 84 mg/dL (Normal) Range: 70-110 4-Wki-752439:15 CBC W/Diff, Automated Comments: [facility] [address]aufxyfh[address] [place], [place], [address] Absolute Lymph 0.51 {X10_3/ul} (Abnormal) Range: 0.83-4.51 [...] 4.2-5.4 WBC 9.8 K/mm3 (Normal) Range: 4.4-11.0 6-Ikl-796050:15 Comprehensive Metabolic Profil Comments: [facility] [address]cur[address] [place], [place], [address] GAP 3 (Abnormal) Range: 5-15 CO2 28.0 [...] 7-18 GLU 107 mg/dL (Normal) Range: 70-110 9-Oes-630786:15 Quantiferon TB-Gold Comments: [facility] (refer to report [...] go to cdc.gov/tb for further details.Performed at: [address] [id number] Director: Jose L Patel PhD, Phone: [phone] QFT AG - NIL 0 {IU/mL} (Normal) [...] the package insert forthe QuantiFERON Gold (In [facility] test must be followed toenable for proper stimulation of cells for the productionof interferon gamma. 9-Lid-829450:43 CBC W/Diff, Automated Comments: [facility] [address]el[address] [place], [place], [address] Absolute Lymph 0.86 {X10_3/ul} (Normal) Range: 0.83-4.51 [...] 4.2-5.4 WBC 6.3 K/mm3 (Normal) Range: 4.4-11.0 3-Tiu-814684:43 Comprehensive Metabolic Profil Comments: [facility] [address]za[address] [place], [place], [address] GAP 9 (Normal) Range: 5-15 CO2 29.0 [...] <126 mg/dLsuggests IMPAIRED HOMEOSTASIS per A.D.A. criteria. 85-Ozs-097825:00 CORTISOL SERUM Comments: [facility] [id number] [place], [place], [id number] CORTISOL 11.80 ug/dL (Normal) Range: 3.09-22.40 Comments: Adult (AM) 4.30 - 22.40 ug/dL Adult (PM) 3.09 - 16.66 ug/dL 32-Ezg-780727:00 DHEA Sulfate Comments: Has Patient had Radioactive Injection for X-ray?: [facility] (refer to report for specific site)refer to report for address and phone number DHEA SULF 4020 35.6 ug/dL (Abnormal) Range: 41.2-243.7 Comments: Performed at: [address] [id number] Director: Jose L Patel PhD, Phone: [phone] [id number]:00 Estradiol Comments: [facility] [id number] [place], [address] ESTRADIOL 11.4 pg/mL (Normal) Comments: [...] SHOULD BE USED TO DETERMINE ESTRADIOL CONCENTRATION. 27-Gnx-[id number]:00 Free T3 Comments: [facility] [id number] [place], [place], [id number] FREE T3 3.1 pg/mL (Normal) Range: 2.18-3.98 05-Iuw-257850:00 Hemoglobin A1c Comments: [facility] [id number] [place], [address] HGB A1C 6.1 % (Normal) Range: 4.2-6.3 51-Xpw-101556:00 Progesterone Level Comments: [facility] [id number] [place], [address] Progesterone 2.17 ng/mL (Normal) Comments: Progesterone Reference Table: UNITS Female: Follicular 0.15 - 1.40 ng/mL Luteal 3.34 - 25.56 ng/mL Mid-luteal 4.44 - 28.03 ng/mL Postmenopausal 0.0 - 0.73 ng/mL : 1st Trimester 11.22 - 90.00 ng /mL 2nd Trimester 25.55 - 89.40 ng/mL 3rd Trimester 48.40 -422.50 ng/mL 05-Eup-441935:00 T4 Free Direct Comments: [facility] [id number] [facility] [place], [address] T4 FREE DIRECT 0.80 ng/dL (Normal) Range: 0.76-1.46 65-Hyg-937306:00 Testosterone, Serum Total Comments: [facility] [id number] [place], [place], [id number] Testosterone 20 ng/dL (Normal) Range: 14-76 38-Zoz-367646:00 Thyroid Stim Hormone (TSH) Comments: [facility] [id number] [place] [address], [id number] TSH 0.46 {uIU/mL} (Normal) Range: 0.358-3.74 20-Kty-915027:30 PAP I-G w/rfx hrHPV Comments: CYTOLOGY INFORMATION:- CLINICAL INFORMATION:- DATE LMP/MENOPAUSE: MENOPAUSE- COLLECTION VIAL: Thin Prep Vial- RN SOCIAL SERVICES SOURCE: CERVICAL/ENDOCERVICAL- COLLECTION TECHNIQUE: BRUSH/SPATULASpecimen Comment: SC [id number] Comment: No. of containers..01 CYTYC Thin Prep VialLabCorp (refer to report for specific site)refer to report for address and phone number HPV RFLX Comment (Normal) Comments: The HPV DNA reflex criteria were not met with this specimenresult therefore, no HPV testing was performed.Performed at: [address] [place] [id number] Director: Selene Munoz MD, Phone: [phone] PAPSMR Comment (Normal) Comments: The Pap smear [...] system. PERFORM Comment (Normal) Comments: Luisa Washington, Coagulant Dipper (ASCP) ADEQ Comment (Normal) Comments: Satisfactory for evaluation. No endocervical component is identified. DIAGN Comment (Normal) Comments: NEGATIVE FOR INTRAEPITHELIAL LESION AND MALIGNANCY. :26 D-Dimer Quantitative (DVT/PE) Comments: [facility] [address] [place], [address] D-DIMER QUANT 0.30 {FEU/ug/m} (Normal) Range: 0.27-0.49 Comments: NORMAL D-Dimer level (<0.50) indicates no DVT or PE. :25 CK-MB Quantitative and Index Comments: 'TROP' Serial specimen #1, #2, #3, or #4: INT'CKMB' Serial Specimen #1, #2 or #3? [address] [place] [address] [place], [address] CKRI 1.3 % (Normal) Range: 0.0-1.4 Comments: RELATIVE INDEX >1.5% IS PRESUMPTIVELY POSITIVE CPKMB 2.2 ng/mL (Normal) Range: 0.0-5.0 Comments: CK-MB and RI Interpretation MB Relative Index Non-AMI <or= 5 NA Indeterminate > 5 <or= 4 AMI > 5 > 4 CPK TOTAL 170 U/L (Normal) Range: 26-192 :25 Troponin I (19753) Comments: 'TROP' Serial specimen #1, #2, #3, or #4: INT'CKMB' Serial Specimen #1, #2 or #3? [address] [place] [address] [place], [address] TROPONIN-I < 0.02 ng/mL (Normal) Comments: TROPONIN-I EXPECTED VALUES <0.05 NEGATIVE 0.06 - 0.59 AT RISK OF IL > OR = 0.60 SUGGEST IL 5-Ias-331506:13 Urinalysis, Office (70630) UA - LEUKOCYTE ESTERASE Negative (Normal) UA - NITRITE Negative (Normal) URINE UROBILINGN SRAVANI TIMED Normal mg/dL (Normal) UA - PROTEIN Negative mg/dL (Normal) UA - PH 6 (Abnormal) UA - BLOOD Negative (Normal) UA - SPECIFIC GRAVITY 1.020 (Normal) UA - KETONES Negative mg/dL (Normal) UA - BILIRUBIN Negative (Normal) UA - GLUCOSE Negative (Normal) 56-Ksb-374697:41 CBC W/Diff, Automated Comments: [facility] [address] [place], [place], [address] Absolute Lymph 1.18 {X10_3/ul} (Normal) Range: 0.83-4.51 [...] 4.2-5.4 WBC 8.8 K/mm3 (Normal) Range: 4.4-11.0 91-Jwb-332854:41 Comprehensive Metabolic Profil Comments: [facility] [address] [place], [place], [address] GAP 9 (Normal) Range: 5-15 CO2 27.0 [...] 7-18 GLU 98 mg/dL (Normal) Range: 70-110 6-Gjb-525822:41 CBC W/Diff, Automated Comments: [facility] [address] [place], [place], [address] Absolute Lymph 1.54 {X10_3/ul} (Normal) Range: 0.83-4.51 [...] 4.2-5.4 WBC 6.6 K/mm3 (Normal) Range: 4.4-11.0 0-Wwq-595026:41 Comprehensive Metabolic Profil Comments: [facility] [address] [place], [place], [address] GAP 7 (Normal) Range: 5-15 CO2 30.0 [...] 7-18 GLU 102 mg/dL (Normal) Range: 70-110 33-Dwh-045325:44 CBC W/Diff, Automated Comments: [facility] [address] [place], [place], [address] Absolute Lymph 3.85 {X10_3/ul} (Normal) Range: 0.83-4.51 [...] 4.2-5.4 WBC 10.7 K/mm3 (Normal) Range: 4.4-11.0 80-Pzi-283493:44 Comprehensive Metabolic Profil Comments: ORDERED LIPID,CMPDRMERA ORDERED CMP,CBCDCleveland [facility]inte [facility] [address] [place], [address] GAP 8 (Normal) Range: 5-15 CO2 29.0 [...] 7-18 GLU 78 mg/dL (Normal) Range: 70-110 39-Ast-475337:44 Lipid Profile Comments: ORDERED LIPID,CMPDRMERA ORDERED CMP,CBCDWooKindred Hospital Dayton [address] [place], [place], [id number] VLDL 33 mg/dL (Normal) Range: 5-40 LDL [...] 200-240 mg/dL Borderline >240 mg/dL High Risk 6-Rlu-956050:46 CBC W/Diff, Automated Comments: [facility] [address] [place], [place], [address] Absolute Lymph 1.65 {X10_3/ul} (Normal) Range: 0.83-4.51 [...] 4.2-5.4 WBC 12.5 K/mm3 (Abnormal) Range: 4.4-11.0 2-Cfp-926279:46 Comprehensive Metabolic Profil Comments: [facility] [address] [place], [place], [address] GAP 9 (Normal) Range: 5-15 CO2 31.0 [...] 126 mg/dLsuggests DIABETES MELLITUS per A.D.A. criteria. 2-Apd-112360:46 Culture, Sputum Comments: [facility] [address] [facility] [place], [place], [address] CUSP See Note (Normal) Comments: Gram StainAcceptable Specimen? Yes (<25 Epithelial cells per/lpf) Gram Stain Rare Gram positive rods 3+ Gram positive cocci 3+ White Blood Cells Rare Epithelial cells Resp. CultureMixed normal respiratory roxanne. No Streptococcus pneumoniae, beta-hemolytic Streptococcus or Staphylococcus aureus isolated. 29-Mmo-917810:13 CBC W/Diff, Automated Comments: Test performed at:[facility] [address] [facility] [place], [place] [address] Absolute Lymph 1.78 {X10_3/ul} (Normal) Range: 0.83-4.51 [...] 4.2-5.4 WBC 5.3 K/mm3 (Normal) Range: 4.4-11.0 72-Gvm-806365:13 Comprehensive Metabolic Profil Comments: Test performed at:[facility] [address] [place], [place] [address] GAP 7 (Normal) Range: 5-15 CO2 26.0 [...] Comments: Please note revised CREATININE reference range cehaolxto64/22/2015. BUN 18 mg/dL (Normal) Range: 7-18 GLU 124 mg/dL (Abnormal) Range: 70-110 Comments: Fasting Glucose result from 110 to <126 mg/dLsuggests IMPAIRED HOMEOSTASIS per A.D.A. criteria. 2-Gsl-013596:5 ENDOMETRIAL BX/CURETTINGS See Note (Normal) Comments: Test performed at:[facility] [address] [place] [address] 4 Comments: Patient: TIN BLACKWOOD : 1960 (53/F) Acct Num: [id number] Phys: Allie Bales MD Unit Num: [id number] Loc: [facility] Specimen: [id number] Received: 11/06/14 - 1230 Spec Type: ENDOM BX/C TISSUES TISSUES: GROSS DESCRIPTION Received is one container labeled with the patient name and designated endometrial curettings. The specimen consists of multiple fragments o f hemorrhagic soft tissue measuring in aggregate 5 x 2 x 0.2 cm. The entire specimen is submitted in two cassettes. / SJ:yi 11/06/14 TC:5 CPT: 23993 HEADER OPERATION: Hysteroscopy, diagnosti c, D AND C PRE-OP DIAGNOSIS: Menorrhagia, thickened endometrium TISSUE SUBMITTED: Endometrial curettings MICROSCOPIC DIAGNOSIS Endometrium, curettings: Secretory endometrium. AM:s indra 11/07/14 Signed [facility] 11/07/14 <signature on file> 8-Zrs-142846:48 Partial Thromboplast Time Comments: Test performed at:[facility] [address] [place] [address] PTT 26.6 s (Normal) Range: 24.1-36.2 7-Sxa-164593:48 Prothrombin Time w/INR Comments: Test performed at:[facility] [address] [place] [address] INR 0.9 (Normal) PROTIME 12.2 s (Normal) Range: 11.7-14.9 0-Gre-194740:18 ,Urine Comments: Order Date: 11/06/14Has pt arrived? YTest performed at:[facility] [address] [place] [address] HCGUQUAL Negative {Negative} (Normal) Comments: Very dilute urine specimens, as indicated by a low specificgravity, may not contain digital sales representative levels of hCG.If is still suspected, a first morning urinespecimen should be collected 48 hours later and tested. :26 Estradiol Comments: Test performed at:[facility] [address] [place] [address] ESTRADIOL 13.1 pg/mL (Normal) Comments: NORMAL REFERENCE RANGES FEMALE FOLLICULAR 21.4 - 164.8 pg/mL MID-CYCLE PEAK 49.9 - 367.2 pg/mL LUTEAL 40.2 - 259.0 pg/mL POST-MENOPAUSAL ON MHT <11.0 - 462.1 pg/mL NOT ON MHT <11.0 - 58.3 pg/mL MALE <11.0 - 52 .5 pg/mLNEW TEST METHOD AND REFERENCE RANGE SEPTEMBER 22, 2011:26 Free T3 Comments: Test performed at:[facility] [address] [place] [address] FREE T3 3.0 pg/mL (Normal) Range: 2.18-3.98 :26 Hemoglobin A1c Comments: Test performed at:[facility] [address] [place] [address] ; ordered by other doctor HGB A1C 5.7 % (Normal) Range: 4.2-6.3 :26 Progesterone Level Comments: Test performed at:[facility] [address] [place] [address] Progesterone 0.34 ng/mL (Normal) Comments: Progesterone Reference Table: UNITS Female: Follicular 0.15 - 1.40 ng/mL Luteal 3.34 - 25.56 ng/mL Mid-luteal 4.44 - 28.03 ng/mL Postmenopausal 0.0 - 0.73 ng/mL : 1st Trimester 11.22 - 90.00 ng /mL 2nd Trimester 25.55 - 89.40 ng/mL 3rd Trimester 48.40 -422.50 ng/mL :26 T4 Free Direct Comments: Test performed at:[facility] [address] [place] [address] T4 FREE DIRECT 0.77 ng/dL (Normal) Range: 0.76-1.46 :26 Testosterone, Serum Total Comments: Test performed at:[facility] [address] [place] [address] Testosterone 30 ng/dL (Normal) Range: 14-76 Comments: ADDENDA: ordered by Dr. Bales :26 Thyroid Stim Hormone (TSH) Comments: Test performed at:[facility] [address] [place] [address] TSH 0.84 {uIU/mL} (Normal) Range: 0.358-3.74 1-Nyp-669105:03 17-Hydroxypregnenolone, MS Comments: PATIENT NOT FASTINGPERFORMED BY: [employer] LabInfoBionicrp Uukkod3289 [facility] [id number] BY: [employer] Ulhbqdirjeqko0123 [facility] [id number] 17 [place] Pregnenolone, 14 ng/dL (Abnormal) Comments: Reference Range:Adults: 53 - 357 Serum, MS hCG,Beta Negative m[iU]/mL Comments: PATIENT NOT FASTINGPERFORMED BY: [employer] [facility] Gfhpdp4103 [facility] [id number] BY: [employer] Tmfjvyqxxcpkb5025 [facility] [id number] 2:03 Subunit,Qual,Serum (Normal) Prolactin 10.9 ng/mL (Normal) Comments: PATIENT NOT FASTINGPERFORMED BY: [employer] [facility] Vpvahn3820 [facility] [id number] BY: [employer] Awhqnzsxayqkr0533 [facility] [id number] 2:03 Range: 4.8-23.3 :03 Prothrombin Time (PT) Comments: PATIENT NOT FASTINGPERFORMED BY: [employer] [facility] Ngoacj7448 [facility] [id number] BY: [employer] Fmbffrxfuqskc8390 [facility] [id number] 11Clinical Information: [id number], [id number] Prothrombin Time 10.5 {sec} (Normal) Range: 9.1-12.0 INR 1.0 (Normal) Range: 0.8-1.2 Comments: Reference interval is for non-anticoagulated patients. . Suggested INR therapeutic range for Vitamin K anta gonist therapy: Standard Dose (moderate intensity therapeutic range): 2.0 - 3.0 Higher intensity therapeutic range 2.5 - 3.5 0-Qbm-000009:03 PTT, Activated Comments: PATIENT NOT FASTINGPERFORMED BY: [address] [id number] BY: [employer] [address] [id number] aPTT 27 {sec} (Normal) Range: 24-33 Comments: This test has not been validated for monitoring unfractionated heparintherapy. aPTT-based therapeutic ranges for unfractionated heparintherapy have not been established. For general guidelines onHeparin monitoring, refer to the [facility] Directory of Services. 8-Uny-554691:03 Thyroxine (T4) Free, Comments: PATIENT NOT FASTINGPERFORMED BY: [address] [id number] BY: [employer] [address] [id number] Direct, S T4,Free(Direct) 0.87 ng/dL (Normal) Range: 0.82-1.77 3-Fvl-203446:0 TSH 0.723 {uIU/mL} Comments: PATIENT NOT FASTINGPERFORMED BY: [address] [id number] BY: [facility] [id number] 3 (Normal) Range: 0.450-4.500 4-Tdw-764162:01 CBC W/Diff, Automated Comments: Test performed at:[facility] [address] [place] [address] Absolute Lymph 1.51 {X10_3/ul} (Normal) [...] 4.2-5.4 WBC 5.7 K/mm3 (Normal) Range: 4.4-11.0 9-Uav-434070:01 Comprehensive Metabolic Profil Comments: Test performed at:[facility] [address] [place] [address] GAP 7 (Normal) Range: 5-15 CO2 28.0 [...] 7-18 GLU 94 mg/dL (Normal) Range: 70-110 30-Bnm-030005:09 Urine Test, Office (82664) Urine Test, Office Negative (Normal) 75-Lfr-130205:09 Urinalysis, Office (47764) UA - LEUKOCYTE ESTERASE Negative (Normal) UA - NITRITE Negative (Normal) URINE UROBILINGN SRAVANI TIMED Normal mg/dL (Normal) UA - PROTEIN Negative mg/dL (Normal) UA - PH 6 (Abnormal) UA - BLOOD Negative (Normal) UA - SPECIFIC GRAVITY 1.025 (Normal) UA - KETONES Negative mg/dL (Normal) UA - BILIRUBIN Negative (Normal) UA - GLUCOSE Negative (Normal) 6-Pqj-348394:14 CBC W/Diff, Automated Comments: Test performed at:[facility] [address] [place], [place] [address] Absolute Lymph 2.05 {X10_3/ul} (Normal) Range: 0.83-4.51 [...] 4.2-5.4 WBC 8.6 K/mm3 (Normal) Range: 4.4-11.0 8-Syn-166525:14 Comprehensive Metabolic Profil Comments: Test performed at:[facility] [address] [place], [place] [address] GAP 2 (Abnormal) Range: 5-15 CO2 32.0 [...] 7-18 GLU 92 mg/dL (Normal) Range: 70-110 8-Ymc-774336:31 CBCD ALC 1.45 {X10_3/ul} (Normal) Range: 0.83-4.51 [...] 4.2-5.4 WBC 7.6 K/mm3 (Normal) Range: 4.4-11.0 :45 CMP GAP 8 (Normal) Range: 5-15 CO2 [...] Range: 70-110 :50 Blood Glucose , Office (27801) Blood Glucose , Office 143 (Normal) Comments: non-fasting :50 HgA1C , Office (45304) HgA1C , Office 5.8 % (Normal) Range: 4.6 - 7.1 :36 ISIAH Negative (Normal) Comments: Performed at: - [facility] [address] [id number] Director: Ricardo Pace MD, Phone: [phone] :[phone] CCP < 1 {units} (Normal) Range: 0-19 Comments: Negative <20Weak positive 20 - 39Moderate positive 40 - 59Strong positive >59Performed at: - [facility] [address] [id number] Director: Stepan Hernandez MD, Phone: [phone] 39-Tgs-916547:36 CRP 3.36 mg/L (Abnormal) Range: 0.0-3.0 Comments: [...] (Normal) Range: 0.358-3.74 :46 HgA1C , Office (67115) HgA1C , Office 5.7 % (Normal) Range: 4.6 - 7.1 :46 Blood Glucose , Office (52295) Blood Glucose , Office 106 (Normal) :51 HgA1C , Office (35882) HgA1C , Office 5.8 % (Normal) Range: 4.6 - 7.1 :51 Blood Glucose , Office (36163) Blood Glucose , Office 122 (Normal) Comments: non-fasting :05 HgA1C , Office (07205) HgA1C , Office 5.8 % (Normal) Range: 4.6 - 7.1 :04 Blood Glucose , Office (79269) Blood Glucose , Office 137 (Normal) :25 HgA1C , Office (34230) HgA1C , Office 5.7 % (Normal) Range: 4.6 - 7.1 :25 Blood Glucose , Office (46556) Blood Glucose , Office 96 (Normal) :33 HEPATIC FUNCTION PANEL Comments: PATIENT NOT FASTINGPERFORMED BY: LabCoKessler Institute for RehabilitationFqwfvc3997 [facility] [id number] (62888) Alkaline Phosphatase, S 46 [iU]/L (Normal) Range: [...] Total, Serum 6.7 g/dL (Normal) Range: 6.0-8.5 60-Eoa-042079:33 Renal function Panel Comments: PATIENT NOT FASTINGPERFORMED BY: NILE [facility] Bcsvkt1836 [facility] [id number] Information: [id number] DRAW FEE [id number] (82978) Albumin, Serum 4.3 g/dL (Normal) Range: 3.5-5.5 [...] Glucose, Serum 105 mg/dL (Abnormal) Range: 65-99 78-Iaa-639235:04 Urinalysis, Office (80333) UA - BILIRUBIN Negative (Normal) UA - BLOOD Negative (Normal) UA - GLUCOSE Negative (Normal) UA - KETONES Negative mg/dL (Normal) UA - LEUKOCYTE ESTERASE Negative (Normal) UA - NITRITE Negative (Normal) UA - PH 6.0 (Normal) UA - PROTEIN Negative mg/dL (Normal) UA - SPECIFIC GRAVITY 1.025 (Normal) URINE UROBILINGN SRAVANI TIMED Normal mg/dL (Normal) 33-Cps-756948:41 HgA1C , Office (64344) HgA1C , Office 5.9 % (Normal) Range: 4.6 - 7.1 :42 LQDPAP [id number] PAPSMR Comment (Normal) Comments: The Pap smear [...] no HPV testing was performed. .Performed at: [address] [id number] Director: John Echeverria MD, Phone: [phone] COMM . (Normal) DIAGN Comment (Normal) Comments: NEGATIVE FOR INTRAEPITHELIAL LESION AND MALIGNANCY.Satisfactory for evaluation. Endocervical and/or squamous metaplasticcells (endocervical component) are present.Holly Reed, Coagulant Dipper (ASCP)T his liquid based ThinPrep(R) pap test was screened withthe use of an image guided system. 79-Ncc-112167:20 TSH (26769) Comments: PATIENT WAS FASTINGPERFORMED BY: FluidUNM Children's Psychiatric CenterZhvrqp4701 [facility] [id number] TSH 2.160 {uIU/mL} (Normal) Range: 0.450-4.500 09-Wwi-995586:20 MICROALBUMIN: CREATININE RATIO Comments: PATIENT WAS FASTINGPERFORMED BY: [facility] Fqfzbf1012 [facility] [id number] (46865) AND (45160) Microalb/Creat Ratio 2.3 {mg/g_creat} (Normal) Range: 0.0-30.0 Microalbumin, Urine 1.6 ug/mL (Normal) Range: 0.0-17.0 Creatinine, Urine 70.5 mg/dL (Normal) Range: 15.0-278.0 45-Cpn-907581:20 METABOLIC PANEL, COMPREHENSIVE Comments: PATIENT WAS FASTINGPERFORMED BY: [facility]6370 [facility] [id number] (82289) ALT (SGPT) 19 [iU]/L (Normal) Range: 0-40 [...] Glucose, Serum 109 mg/dL (Abnormal) Range: 65-99 45-Ins-192765:20 LIPID PANEL (49622) Comments: PATIENT WAS FASTINGPERFORMED BY: [employer] [facility] [id number] LDL/HDL Ratio 1.4 {ratio_units} (Normal) Range: 0.0-3.2 LDL Cholesterol Calc 108 mg/dL (Abnormal) Range: 0-99 VLDL Cholesterol Zaria 16 mg/dL (Normal) Range: 5-40 HDL Cholesterol 78 mg/dL (Normal) Comments: According to ATP-III Guidelines, HDL-C >59 mg/dL is considered anegative risk factor for CHD. Cholesterol, Total 202 mg/dL (Abnormal) Range: 100-199 Triglycerides 82 mg/dL (Normal) Range: 0-149 10-Ryq-055833:20 CBC WITH MANUAL DIFF Comments: PATIENT WAS FASTINGPERFORMED BY: [facility] Friendsox RoadDublin [place] [id number] Information: ADD [id number] AND DRAW FEE 99 5020 (77633) Immature Grans (Abs) 0.0 {x10E3/uL} (Normal) Range: [...] 3.80-5.10 WBC 5.2 {x10E3/uL} (Normal) Range: 4.0-10.5 61-Yxd-052715:05 URINE ALISSON CULTURE-SRAVANI COL Comments: PATIENT NOT FASTINGPERFORMED BY: [facility] Ggxazm6482 [facility] [id number] Information: SRC:UR [id number] COUNT (81841) Antimicrobial MIHEAD (Normal) Comments: S = Susceptible; [...] Final report (Normal) Culture,Comprehensive :51 Urinalysis, Office (51741) UA - BILIRUBIN Negative (Normal) UA - BLOOD Hemolyzed Trace (Normal) UA - GLUCOSE Negative (Normal) UA - KETONES Negative mg/dL (Normal) UA - LEUKOCYTE ESTERASE Large (Normal) UA - NITRITE Negative (Normal) UA - PH 6.5 (Normal) UA - PROTEIN Negative mg/dL (Normal) UA - SPECIFIC GRAVITY 1.015 (Normal) URINE UROBILINGN SRAVANI TIMED Normal mg/dL (Normal) 51-Dir-843358:53 CBC (Auto) (97914) Comments: PATIENT NOT FASTINGPERFORMED BY: [facility] Afmysh3698 [facility] [id number] Information: [id number] Platelets 271 {x10E3/uL} (Normal) Range: 140-415 RDW 13.4 % (Normal) Range: 11.7-15.0 MCHC 34.0 g/dL (Normal) Range: 32.0-36.0 MCH 31.0 pg (Normal) Range: 27.0-34.0 Hematocrit 37.9 % (Normal) Range: 34.0-44.0 MCV 91 fL (Normal) Range: 80-98 Hemoglobin 12.9 g/dL (Normal) Range: 11.5-15.0 RBC 4.16 {x10E6/uL} (Normal) Range: 3.80-5.10 WBC 4.7 {x10E3/uL} (Normal) Range: 4.0-10.5 97-Ume-798207:53 Potassium Serum (79192) Comments: PATIENT NOT FASTINGPERFORMED BY: LabCoKessler Institute for RehabilitationWrjspd2496 [facility] [id number] Potassium, Serum 4.9 mmol/L (Normal) Range: 3.5-5.2 43-Gge-71100:17 GALLBLADDER Radiology Report See Note (Normal) Comments: [...] 42 U/L (Normal) Comments: RESULTS FAXED 05/24/10 1521 CARLOS CAMPOS. 13:17 Range: 25-115 99-Btq-571690:17 CBCD,SMEAR DIFF RED CELL MORPH SeeNote {NORMAL} [...] 4.2-5.4 WBC 3.0 K/mm3 (Abnormal) Range: 4.4-11.0 97-Fbp-442878:17 COMP METABOLIC Comments: RESULTS FAXED 05/24/10 1522 [...] 0.6-1.0 GLU 82 mg/dL (Normal) Range: 70-110 62-Bzn-033426:17 LIPASE 124 U/L (Normal) Comments: RESULTS FAXED 05/24/10 4782 CARLOS CAMPOS. Range: 70-290 Comments: Please note:LIPASE revised reference range effective 09. 4-Hyn-089155:38 CBCD,SMEAR DIFF RED CELL MORPH SeeNote {NORMAL} [...] 4.2-5.4 WBC 5.3 K/mm3 (Normal) Range: 4.4-11.0 :38 COMP METABOLIC GAP 8 (Normal) Range: 5-15 [...] Very High > or = 500 mg/dL 2-Cvk-796152:38 MICROALB:CRE UR MALB:CREAT 13.5 {mg/g_CRE} (Normal) MICROALBUMIN,UR 5.2 mg/L (Normal) UR CREAT 38.5 mg/dL (Normal) :38 TSH 0.50 {uIU/mL} (Normal) Range: 0.358-3.74 4-Dji-970634:03 Urinalysis, Office (25146) UA - BILIRUBIN Negative (Normal) UA - BLOOD Hemolyzed Trace (Normal) UA - GLUCOSE Negative (Normal) UA - KETONES Negative mg/dL (Normal) UA - LEUKOCYTE ESTERASE Negative (Normal) UA - NITRITE Negative (Normal) UA - PH 6.5 (Normal) UA - PROTEIN Negative mg/dL (Normal) UA - SPECIFIC GRAVITY 1.020 (Normal) URINE UROBILINGN SRAVANI TIMED Normal mg/dL (Normal) :01 Urinalysis, Office (93767) UA - BILIRUBIN Moderate (Normal) UA - BLOOD Hemolyzed Large (Normal) UA - GLUCOSE Negative (Normal) UA - KETONES Negative mg/dL (Normal) UA - LEUKOCYTE ESTERASE Negative (Normal) UA - NITRITE Negative (Normal) UA - PH 6.0 (Normal) UA - PROTEIN Negative mg/dL (Normal) UA - SPECIFIC GRAVITY 1.010 (Normal) URINE UROBILINGN SRAVANI TIMED Normal mg/dL (Normal) 60-Vxy-197143:46 URINE ALISSON CULTURE-IDENTIFICATN Comments: PATIENT NOT FASTINGPERFORMED BY: FluidKessler Institute for RehabilitationPhzert1797 [facility] [id number] Information: [id number] (62927) Result 1 NG36 (Normal) Comments: No growth in 36 - 48 hours. Urine Culture,Comprehensive Final report (Normal) 87-Nyt-313060:00 TSH (09269) Comments: PATIENT WAS FASTINGPERFORMED BY: FluidKessler Institute for RehabilitationFmltpi5534 [facility] [id number] TSH 1.190 {uIU/mL} (Normal) Range: 0.450-4.500 07-Iyq-476584:00 METABOLIC PANEL, COMPREHENSIVE Comments: PATIENT WAS FASTINGPERFORMED BY: FluidKessler Institute for RehabilitationAnonee0758 [facility] [id number] (44649) A/G Ratio 1.7 (Normal) Range: 1.1-2.5 Albumin, [...] Sodium, Serum 139 mmol/L (Normal) Range: 135-145 85-Olm-971039:00 LIPID PANEL (98156) Comments: PATIENT WAS FASTINGPERFORMED BY: [employer]comSMGBB [place] [id number] Cholesterol, Total 231 mg/dL (Abnormal) Range: 100-199 HDL Cholesterol 79 mg/dL (Normal) Comments: According to ATP-III Guidelines, HDL-C >59 mg/dL is considered anegative risk factor for CHD. LDL Cholesterol Calc 127 mg/dL (Abnormal) Range: 0-99 LDL/HDL Ratio 1.6 {ratio_units} (Normal) Range: 0.0-3.2 Triglycerides 123 mg/dL (Normal) Range: 0-149 VLDL Cholesterol Zaria 25 mg/dL (Normal) Range: 5-40 12-Huv-781555:00 CBC WITH MANUAL DIFF (25499) Comments: PATIENT WAS FASTINGClinical Information: [id number] PERFORMED BY: [email or web address] [place] [id number] Baso (Absolute) 0.0 {x10E3/uL} (Normal) Range: 0.0-0.2 [...] Culture,Comprehensive Comments: Clinical Information: SRC:UR PERFORMED BY: [facility]CoK[facility] RehabilitationUnqcbt7607 [facility] [id number] Result 1 ECV (Normal) Comments: Escherichia coli, [...] S Urine Final report (Normal) Culture,Comprehensiv e [id number]-Bdc-[id number]:59 Urinalysis, Office (17441) UA - BILIRUBIN Negative (Normal) UA - BLOOD Hemolyzed Moderate (Normal) UA - GLUCOSE Negative (Normal) UA - KETONES Negative mg/dL (Normal) UA - LEUKOCYTE ESTERASE Moderate (Normal) UA - NITRITE Negative (Normal) UA - PH 6.0 (Normal) UA - PROTEIN Negative mg/dL (Normal) UA - SPECIFIC GRAVITY 1.015 (Normal) URINE UROBILINGN SRAVANI TIMED 2 mg/dL (Normal) 90-Gsn-363734:54 URINALYSIS W/O MICRO (56775) Comments: PATIENT WAS FASTINGPERFORMED BY: BotanoCap70 [facility] [id number] Appearance Clear (Normal) Bilirubin Negative (Normal) Glucose Negative (Normal) Ketones Negative (Normal) Microscopic Examination MICRON (Normal) Comments: Microscopic follows if indicated. Nitrite, Urine Negative (Normal) Occult Blood Negative (Normal) pH 6.5 (Normal) Range: 5.0-7.5 Protein Negative (Normal) Specific [place] 1.012 (Normal) Range: 1.005-1.030 Urine-Color Yellow (Normal) Urobilinogen,Semi-Qn 0.2 mg/dL (Normal) Range: 0.0-1.9 WBC Esterase Negative (Normal) 62-Qzw-733913:54 TSH ([id number]) Comments: PATIENT WAS FASTINGPERFORMED BY: OfferumKessler Institute for RehabilitationLwwhdv7085 [facility] [id number] TSH 1.015 {uIU/mL} (Normal) Range: 0.450-4.500 57-Sgf-065832:54 METABOLIC PANEL, COMPREHENSIVE Comments: PATIENT WAS FASTINGPERFORMED BY: OfferumKessler Institute for RehabilitationSyekak8422 [facility] [id number] ([id number]) A/G Ratio 1.5 (Normal) Range: 1.1-2.5 Albumin, [...] Serum 113 mg/dL (Abnormal) Range: 65-99 If -Polish >59 mL/min/1.73 Comments: Note: Persistent reduction for [...] Sodium, Serum 140 mmol/L (Normal) Range: 135-145 55-Cop-020056:54 LIPID PANEL (02877) Comments: PATIENT WAS FASTINGPERFORMED BY: [facility]6370 [facility] [id number] Cholesterol, Total 199 mg/dL (Normal) Range: 100-199 [...] Cholesterol Zaria 26 mg/dL (Normal) Range: 5-40 48-Kja-036308:54 CBC WITH MANUAL DIFF (29104) Comments: PATIENT WAS FASTINGClinical Information: ADD DRAW FEE [id number] ADD J 99422 PERFORMED BY: LabCoKessler Institute for RehabilitationSntnlu1522 [facility] [id number] Baso (Absolute) 0.0 {x10E3/uL} (Normal) Range: 0.0-0.2 [...] change for the pediatric CBC With Differential/Platelet 97-Lfr-814485:32 PELVIC (NON-PREG) (HP) Radiology Report See Note (Normal) Comments: Exam Number: [id number] PELVIC ULTRASOUND HISTORYOvarian cyst, left side. COMPARISON [...] 26, 2006. Reported By: MANSI SINGER M.D. 2-Ejc-769910:42 ISIAH-D [id number] ISIAH-DIRECT 32 U/mL (Normal) Range: 0-99 Comments: [...] Range: 0.2 - 1.0 :42 T3, FREE 00952 2.8 pg/mL (Normal) Range: 2.3-4.2 Comments: Performed At: [address] [id number] :42 T4 FREE,DIRECT 1.0 ng/dL (Normal) Range: 0.89-1.76 :42 TSH 0.54 {uIU/mL} (Normal) Range: 0.34-4.82 :56 MAMM, UILAT DIAG DIGITAL & CAD Radiology Report See Note (Normal) Comments: Exam Number: [id number] MAMMOGRAPHY, RIGHT UNILATERAL DIAGNOSTIC DIGITAL AND CAD [...] mammograms werealso examined with computer-aided detection software ([employer], [employer].). Reported By: AARON DE ANDA M.D. 39-Fqj-693344:59 MAMM, BILAT SCRN DIGITAL & CAD Radiology Report See Note (Normal) Comments: Exam Number: [id number] BILATERAL SCREENING DIGITAL MAMMOGRAM CLINICAL INFORMATIONScreening. TECHNIQUEBilateral [...] werealso examined with computer- aided detection software ([employer] Reported By: SUSI MACK M.D. 67-Qgg-600308:59 PELVIC (NON-PREG) (HP) Radiology Report See Note (Normal) Comments: Exam Number: [id number] TRANSABDOMINAL PELVIC ULTRASOUND CLINICAL STATEMENTLower abdominal pain. [...] Anxiety: emotional health Indication: Impaired fasting glucose General Atomics V73. (Renamed from General Atomics) : *Well Female Maintenance (KF) Indication: Valocor TherapeuticsV V73. (Renamed from [employer] At[employer]) General Atomics V73.21 (Renamed from [facility]) : Pap/Pelvic/Bimanual/Rectal/Breast Exam was done. Indication: [employer] At[employer] V73. (Renamed from [employer]) Dysuria : Water in diet, brief version Indication: Dysuria Dysuria : *UTI treatment Indication: Dysuria Dysuria : *UTI treatment Indication: Dysuria Dysuria : UTI treatment Indication: Dysuria Fatigue : FOLLOW UP IN 2 WEEKS Indication: Fatigue Fatigue : *fatigue education Indication: Fatigue Planned Observations CCP ANTIBODY (50015)Indication: Acute rheumatoid arthritis On: 92-Qgm-222224:17 Request C-Reactive Protein (17998)Indication: Acute rheumatoid arthritis On: 36-Ipr-665136:17 Request RHEUMATOID FACTOR-QUANT (30973)Indication: Acute rheumatoid arthritis On: :16 Request CBC with auto diff (91702)Indication: Hypertension On: :16 Request METABOLIC PANEL, COMPREHENSIVE (80369)Indication: Hypertension On: :16 Request HGB A1C (87941)Indication: Abnormal fasting glucose On: :16 Request TSH (86804)Indication: Subclinical hyperthyroidism On: :14 Request T4, FREE (THYROXINE) (94117)Indication: Subclinical hyperthyroidism On: :14 Request MICROALBUMIN: CREATININE RATIO (85750) AND (19293)Indication: Hypertension On: :52 Request URINALYSIS (80446)Indication: Hypertension On: :52 Request CBC WITH MANUAL DIFF (98579)Indication: Hypertension On: :52 Request Metabolic Panel, Comprehensive (10312)Indication: Hypertension On: 4-Yuz-161250:52 Request Anti-TPO Antibody (62675)Indication: Subclinical hyperthyroidism On: 49-Myj-825011:40 Request Comments: check in February T4, FREE (THYROXINE) (37823)Indication: Subclinical hyperthyroidism On: 78-Njv-187456:40 Request Comments: check in February T-3 UPTAKE (76871)Indication: Subclinical hyperthyroidism On: 51-Deq-067793:40 Request Comments: recheck February TSH (12530)Indication: Subclinical hyperthyroidism On: 69-Xlq-185775:40 Request Comments: recheck February CULTURE, SPUTUM (33676)Indication: COPD with acute exacerbation (Renamed from Acute exacerbation of chronic obstructive airways disease) On: 6-Zsv-028772:45 Request Anti-TPO Antibody (18364)Indication: Abnormal blood chemistry On: :18 Request T3, FREE (TRIDOTHYRONINE) (72659)Indication: Abnormal blood chemistry On: :18 Request T4, FREE (THYROXINE) (86064)Indication: Abnormal blood chemistry On: 8-Rly-824947:18 Request TSH (39509)Indication: Abnormal blood chemistry On: 7-Vdb-645841:18 Request D-Dimer (84874)Indication: Chest pain On: 6-Eqy-382121:49 Request Comments: do all labs stat...zaria to on zaria DrPeter if abnormal CPK MB FRACTION (21287)Indication: Chest pain On: 2-Sch-417580:22 Request CREATINE KINASE TOTAL (21919)Indication: Chest pain On: 6-Dvv-905593:22 Request Metabolic Panel, Comprehensive (83714)Indication: Fatigue On: 0-Kxl-690036:06 Request CBC, Platelets & Auto Diff (15386)Indication: Immunocompromised On: 2-Urj-570443:03 Request CULTURE, SPUTUM (67062)Indication: Bronchitis, acute On: 3-Zxw-038798:58 Request METABOLIC PANEL, COMPREHENSIVE (90595)Indication: Benign essential hypertension On: 87-Ibm-851322:57 Request LIPID PANEL (27643)Indication: Benign essential hypertension On: 95-Ubh-578588:57 Request T4, FREE (THYROXINE) (88207)Indication: Perimenopausal menorrhagia On: 0-Zen-593852:00 Request TSH (THYROID STIMULATING HORMONE) (62600)Indication: Perimenopausal menorrhagia On: 1-Ofd-274047:59 Request Comments: fax copy all labs to Dr. bales HCG (HUMAN CHORIONIC GONADOTROPIN) (88538)Indication: Perimenopausal menorrhagia On: 9-Fvz-016111:57 Request PTT (ACTIVATED PARTIAL THROMBOPLASTIN TIME) (01582)Indication: Perimenopausal menorrhagia On: 1-Twq-562477:57 Request PT/INR, Office (33385)Indication: Perimenopausal menorrhagia On: 5-Dla-148895:57 Request 17-HYDROXYPREGNENOLONE (04257)Indication: Perimenopausal menorrhagia On: 8-Smg-187099:57 Request PROLACTIN (80791)Indication: Perimenopausal menorrhagia On: 4-Ior-729734:57 Request LIPID PANEL (03186)Indication: Benign essential hypertension On: 09-Zac-644300:28 Request CCP ANTIBODY (48939)Indication: Acute rheumatoid arthritis On: 06-Kgs-072794:17 Request SED RATE ERYTHROCYTE (16757)Indication: Acute rheumatoid arthritis On: Request C-REACTIVE PROTEIN (87348)Indication: Acute rheumatoid arthritis On: Request TSH (13322)Indication: Acute rheumatoid arthritis On: Request RHEUMATOID FACTOR-QUANT (27545)Indication: Acute rheumatoid arthritis On: Request ISIAH (ANTINUCLEAR ANTIBODY) ([id number])Indication: Acute rheumatoid arthritis On: Request URINALYSIS, W/ MICRO (28409)Indication: Benign essential hypertension On: Request METABOLIC PANEL, COMPREHENSIVE (80832)Indication: Benign essential hypertension On: Request LIPID PANEL (66382)Indication: Benign essential hypertension On: Request CBC WITH MANUAL DIFF (07980)Indication: Benign essential hypertension On: Request URINE ALISSON CULTURE (SRAVANI COL COUNT) (72125)Indication: Hematuria On: 97-Dpr-934104:04 Request METABOLIC PANEL, COMPREHENSIVE (60982)Indication: Nausea and vomiting On: : Request CBC WITH MANUAL DIFF (85403)Indication: Nausea and vomiting On: : Request Lipase (33304)Indication: Nausea and vomiting On: : Request Amylase (76290)Indication: Nausea and vomiting On: : Request OVA & PARASITE DIR SMEAR (66227)Indication: Diarrhea On: : Request C.Difficile, Stool (51068)Indication: Diarrhea On: : Request LEUKOCYTE COUNT, FECAL (89432)Indication: Diarrhea On: : Request ALISSON CULTURE-STOOL (27211)Indication: Diarrhea On: : Request TSH (42552)Indication: Depression On: :10 Request MICROALBUMIN: CREATININE RATIO (67381) AND (90428)Indication: Benign essential hypertension On: :10 Request METABOLIC PANEL, COMPREHENSIVE (93889)Indication: Benign essential hypertension On: 9-Mrr-497284:10 Request LIPID PANEL (36298)Indication: Benign essential hypertension On: 7-Qzr-926231:09 Request CBC WITH MANUAL DIFF (11762)Indication: Benign essential hypertension On: 3-Ago-454047:09 Request URINALYSIS W/O MICRO (49429)Indication: Benign essential hypertension On: :39 Request MICROALBUMIN URINE QUANT (56269)Indication: Benign essential hypertension On: :39 Request METABOLIC PANEL, COMPREHENSIVE (51087)Indication: Benign essential hypertension On: :39 Request LIPID PANEL (33585)Indication: Benign essential hypertension On: :39 Request ISIAH (ANTINUCLEAR ANTIBODY) (02391)Indication: Fatigue On: :39 Request C-REACTIVE PROTEIN (21552)Indication: Fatigue On: :39 Request CBC (AUTO) (50106)Indication: Fatigue On: :39 Request Folate (72347)Indication: Fatigue On: :39 Request METABOLIC PANEL, COMPREHENSIVE (45091)Indication: Fatigue On: :39 Request RHEUMATOID FACTOR-QUANT (54496)Indication: Fatigue On: :39 Request SED RATE ERYTHROCYTE (17719)Indication: Fatigue On: :39 Request TSH (03855)Indication: Fatigue On: :39 Request VITAMIN B-12 (CYANOCOBALAMIN) (94865)Indication: Fatigue On: :39 Request Planned Encounters Medical; [facility] 2 Month FU - On: 31-May-2018 13:00 [facility] [place]j [place], Pushpa Ba MD Planned Procedures Flu Vaccine (Quadrivalent) 99414Xt: On: 30-Mar-2018 Intent Pushpa Barker MD, MD, Dana M MRI OF LUMBAR SPINE WITH AND WITHOUT On: 18-Jan-2018 Intent CONTRAST (20667)By: Pushpa Barker MD Comments: rule out cauda equina syndrome, back injection also in last momonth Pushpa Jean MD THYROID SCAN UPTAKE (48595)By: On: 16-Nov-2017 Intent Pushpa Barker MD, MD, Dana Comments: subacute thyrioditis vs autoimmune M Radiology - PelvisBy: Mj AL, On: 20-Oct-2017 Intent Pushpa Ba MD Comments: attention left ischial tuberosity where pain and fall EMGBy: Pushpa Barker MD On: 20-Oct-2017 Intent Pushpa AL Comments: left arm Nerve ConductionBy: Pushpa Barker MD On: 20-Oct-2017 Intent Pushpa Gillespie MD Comments: left arm Solu -Medrol Injection, 125 mg On: 15-May-2017 Intent (J2930)By: Pushpa Barker MD Comments: Lot # [id number] mg solu medrol given right deltoid by Pushpa Suggs lpn, MD Radiology - ChestBy: Mj AL, On: 15-May-2017 Intent Pushpa Ba MD Solu- Medrol Injection, 125mg On: 12-May-2017 Intent (J2930)By: Pushpa Barker MD, MD, Dana M Aerosol Treatment ([id number])By: Mj On: 12-May-2017 Pushpa Cortez MD, MD, Dana M EKG (34167)By: Pushpa Barker MD On: 12-Mar-2017 Intent Pushpa Barker MD Radiology - Foot - RightBy: Mj On: 18-Aug-2016 Pushpa Cortez MD, MD, Dana M Comments: s/p fall and trauma ot right foot. CT - Chest (Without Contrast)By: On: 03-Jul-2016 Intent Pushpa Barker MD, MD, Dana Comments: check in 6 months December [address] - Chest (IV Contrast Needed)By: On: 23-Jun-2016 Intent Pushpa Barker MD, MD, Dana M XRAY LEFT SMALL TOE (70596)By: On: 20-May-2016 Pushpa Juan MD, MD, Dana Comments: 5th digit focus on area of pain and get distal metatarsal bone M MAMMOGRAM BREAST BILATERAL SCREENING On: 06-May-2016 Intent DIGITAL ([id number])By: Pushpa Barker MD, MD, Dana M DEXA SCAN AXIAL SKELETON (89797)By: On: 06-May-2016 Intent Pushpa Barker MD, MD, Dana M Ultrasound - RenalBy: Mj AL, On: 07-Aug-2015 Intent Pushpa aB MD Nuclear Stress Test/Stress On: 08-Jun-2015 Intent SPECT/AdenosineBy: Pushpa Barker MD, MD, Dana M Radiology - ChestBy: Ophelia Boogie CNP On: 27-Feb-2015 Intent E Radiology - ChestBy: Ophelia Boogie CNP On: 05-Feb-2015 Intent E Ultrasound - PelvisBy: Chuyita ROSS, On: 19-Jul-2014 Intent Vero EKG (78624)By: Pushpa Barker MD On: 23-Jun-2013 Intent Pushpa Barker MD Comments: see scanned document of test done to see results reviewed today with patient MAMMOGRAM, SCREENING, BOTH BREASTS On: 23-Jun-2013 Intent (51550)By: Pushpa Barker MD, MD, Dana M Eprescribed prescriptions ([id number])By: On: 23-Jun-2013 Intent Pushpa Barker MD, MD, Dana M Radiology - Hand - BilateralBy: On: 10-Feb-2013 Intent Pushpa Barker MD, MD, Dana Comments: copy to Dr. 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 PHYSICAL THERAPY ASSISTANT, Riana L CT - Abdomen & Pelvis (IV Contrast On: 12-Mar-2012 Intent Needed)By: Pushpa Barker MD, MD, Dana M MAMMOGRAM, SCREENING, BOTH BREASTS On: 29-Apr-2011 Intent (84857)By: Pushpa Barker MD, MD, Dana M MAMMOGRAM, SCREENING, BOTH BREASTS On: 25-Apr-2011 Intent (09781)By: Pushpa Barker MD, MD, Dana M EKG (24555)By: JACKIE Bruno On: 26-Aug-2010 Intent Ultrasound - GallbladderBy: Fast DO, On: 27-May-2010 Intent Philomena A Ultrasound - GallbladderBy: Fast DO, On: 24-May-2010 Intent Philomena A Doppler Ultrasound OtherBy: Augustine On: 25-Apr-2010 Intent Jeannette FARAH Comments: L lower extrrem- eval for clot and eval bakers cyst? size ? leaking ? Radiology - ChestBy: Mj AL, On: 23-May-2009 Intent Pushpa Ba MD EKG (70987)By: Pushpa Barker MD On: 24-Apr-[address] - Brain/HeadBy: Pushpa Barker MD On: 24-Apr-2009 Intent Pushpa Gillespie MD EKG (52073)By: Pushpa Barker MD On: 14-Apr-2008 Intent Pushpa Barker MD MAMMOGRAM, SCREENING, BOTH BREASTS On: 14-Apr-2008 Intent (32653)By: Pushpa Barker MD, MD, Dana M Ultrasound - PelvisBy: Mj AL, On: 23-Nov-2006 Intent Pushpa Ba MD EKG (71553)By: PEGGY ROSE CNP On: 10-Aug-2006 Intent Comments: NSR Planned Medications INJECTION, METHYLPREDNISOLONE SODIUM SUCCINATE, UP TO 125 MG Ordered: 12-May-2017 Pending Pushpa Barker MD, MD, Dana M INJECTION, METHYLPREDNISOLONE SODIUM SUCCINATE, UP TO 125 MG Ordered: 15-May-2017 Pending Pushpa Barker MD, MD, Dana M Instructions Name [...] Impaired fasting glucose Encounters Office Visit On: 30-Mar-2018 14:58 Encounter Diagnosis: [...] up with Dr Peter Chatterjee and [facility]. Sent home on predisone. To follow [...] date: (04-07-11).Encounter Diagnosis: WWV V73.21 (Renamed from [facility]) [facility] Office Visit On: [...] (311.), Fatigue (780.79), WWV V73.21 (Renamed from [facility]) [facility] Annotation/Addendum On: 02-Oct-2010 [...] disturbance (368.9), Headache (784.0), Backache, unspecified (724.5), [facility] Office Visit On: [...] left, use cockup splint, see lizyigrtawanda in [place]--did ncs 1year ago--show CTS, xray of hand [...] (300.00), Hypertension (401.0), Fibromyalgia (729.1), Fatigue (780.79) [facility] Internal Medicine Payers Maddie kaur guarantor
--- OUTSIDE RECORDS SUMMARY | 2018-05-29 01:14 | XMS RPT_ITS | Continuity of Care Document ---
:1960 Author Organization [facility] Address [address] [place] [address] Phone Care Team Providers Name Role Phone Mj AL, Shasha Whitten Unavailable Sahhana Major Unavailable Jose L Chance Unavailable Stepan [...] ca se this would be the cause. [facility] 2-18 ? aspiration ? imipramine Status: [...] MD, Dana M Start : 03-Nov-2017 Active Comments:[id number] called to Dannielle -er AmLODIPine Besylate 5 MG Oral Tablet 1 (one) Tablet qd for 0 days Quantity: 90 {Tablet} Refills: 3 Ordered:19-Oct-2017 Shasha Barker MD, MD, Dana M Start : 19-Oct-2017 Active Butrans 15 MCG/HR Transdermal Patch Weekly 1 (one) Patch q weekly for 0 days Quantity: 10 {Patch} Refills: 0 Ordered:20-Oct-2017 Shahsa Barker MD, MD, Dana M Start : [...] 14-Jul-2017 Inactive Comments: d/c per [facility] had fatgiue and GI upset [...] End : 14-Jul-2017 Inactive Comments: d/c per [facility] LEUCOVORIN CALCIUM, 15MG (Oral Tablet) 1 [...] Start : 29-Jan-2010 End : 08-Feb-2010 Inactive Spicer 7.5-325 MG Oral Tablet 1 (one) Tablet two times daily for 0 days Quantity: 60 {Tablet} Refills: 0 Ordered:26-Jan-2017 JACKIE Bruno Start : 26-Jan-2017 End : 26-Jan-2017 Inactive Spicer 7.5-325 MG Oral Tablet tid prn (7.5-325 [...] Quantity: 360 {Tablet} Refills: 0 Ordered:05-Mar-2015 Slarb CARD FEEDER, Ambreen Start : 07-Sep-2014 End : 02-Sep-2015 [...] Quantity: 30 {Tablet} Refills: 3 Ordered:27-Feb-2015 Slarb CARD FEEDER, Ambreen Start : 07-Sep-2014 End : 27-Feb-2015 Discontinued LODINE XL, 400MG (Oral Tablet Extended Release 24 Hour) 1 two times daily for 0 days Refills: 0 Ordered:03-Apr-2010 Long CARD FEEDERRiana End : 03-Apr-2010 Discontinued Comments:This order discontinued [...] and prednisone seeing Dr. Deangelo vallecillo in [place] next week. 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 adenomyosis. ? endometriosis to chicken sexer Status: Inactive as of 15-Mar-2015 Perimenopausal menorrhagia [...] as of 15-Mar-2015 WWV V73.21 (Renamed from [employer]) Comments: scope at 52 recommend but refusing must do right now refuse mammo and pap. wrote for mammo just in case will get Status: Inactive as of 15-Mar-2015 Yeast infection (B37.9, 112.9) Status: Inactive as of 15-Mar-2015 Procedures Procedure Dates Details ARTHROPLASTY, HIP, TOTAL (77518) Completed Comments: left @ [facility] 03-18-18 Dr. [...] W/WO Cont Result: Comments: See Note; NOTES: [facility] Imaging Services [address] [place] [address] Lower Ext Joint Only W/WO Cont MR#: [id number] Acct: [id number] Name: TIN BLACKWOOD Rep # : [id number] : 1960 F 57 From: Kadie Dailey MD PCP: Shasha Barker MD Status: REG CLI Study: Lower Ext Joint Only W/WO Cont Date of Exam: 02/10/18 Exam# [id number] Ordering Dr: CARLOS SHELBY M.D. STUDY: MRI [...] CC: CARLOS SHELBY M.D.; Shasha Barker MD Welt Insole Channeler: Signed 28-Jan-2018 Chest without Contrast Result: Comments: See Note; NOTES: [facility] Imaging Services [address] [place] [address] Chest without Contrast MR#: [id number] Acct: [id number] Name: TIN BLACKWOOD Rep #: [id number] : 1960 F 57 From: Vazquez Kaye MD PCP: Shasha Barker MD Status: REG CLI Study: Chest without Contrast Date of Exam: 01/28/18 Exam# [id number] Ordering Dr: Pelon Chatterjee MD STUDY: CT [...] CC: Shasha Barker MD; Pelon Chatterjee MD Welt Insole Channeler: Signed 20-Jan-2018 Emergency Department Summary Result: Comments: See Note; NOTES: [facility] Medical Records Department [address] [place] [address] Emergency Department Summary 01/19/18 1534 MR#: [id number] Acct: [id number] Name: TIN BLACKWOOD Rep #: [id number] : 1960 57 From: Rolando Mc MD [...] Lumbar radiculopathy This note was generated with [employer] dictation software. It may contain incorrect words, [...] your Primary Care Provider. Call [facility] ([phone]) or report t o the closest Emergency Room. Call 911 if necessary. 01/20/18 5753 <Electronically signed by Rolando Mc MD> Date Rolando Mc MD Cosigner Signature (If Indicated): Date CC: Shasha Barker MD 19-Jan-2018 Spine Lumbar (Routine) Result: Comments: See Note; NOTES: [facility] Imaging Services [address] [place] [address] Spine Lumbar (Routine) MR#: [id number] Acct: [id number] Name: TIN BLACKWOOD Rep #: [id number] : 1960 F 57 From: Nabeel Bernabe MD PCP: Shasha Barker MD Status: REG ER Study: Spine Lumbar (Routine) Date of Exam: 01/19/18 Exam# [id number] Ordering Dr: Rolando Mc MD STUDY: MRI [...] , CC: Shasha Barker MD; Rolando Mc Welt Insole Channeler: Signed 19-Jan-2018 Spine Lumbar (Routine) Result: Comments: See Note; NOTES: [facility] Imaging Services [address] [place] [address] Spine Lumbar (Routine) MR#: [id number] Acct: [id number] Name: TIN BLACKWOOD Rep #: [id number] : 1960 F 57 From: Nabeel Bernabe MD PCP: Shasha Barker MD Status: [facility] Study: Spine Lumbar (Routine) Date of Exam: 01/19/18 Exam# [id number] Ordering Dr: Rolando Mc MD STUDY: MRI [...] , CC: Shasha Barker MD; Rolando Mc Welt Insole Channeler: Signed 10-Dec-2017 Lower Ext/No Jt/w/o Result: Comments: See Note; NOTES: [facility] Imaging Services [address] [place] [address] Lower Ext/No Jt/w/o MR#: [id number] Acct: [id number] Name: TIN BLACKWOOD Rep #: [id number] : 1960 F 56 From: Julio Cannon MD PCP: Shasha Barker MD Status: REG CLI Study: Lower Ext/No Jt/w/o Date of Exam: 12/10/17 Exam# [id number] Ordering Dr: Nabeel Danielle DPM STUDY: MRI [...] CC: Shasha Barker MD; Nabeel Danielle DPM Welt Insole Channeler: Signed 18-Nov-2017 Thyroid Uptake Single or Mult Result: Comments: See Note; NOTES: [facility] Imaging Services [address] [place] [address] Thyroid Uptake Single or Mult MR#: [id number] Acct: [id number] Name: TIN BLACKWOOD Rep #: [id number] : 1960 F 56 From: Asif Pagan DO PCP: Shasha Barker MD Status: REG CLI Study: Thyroid Uptake Single or Mult Date of Exam: 11/18/17 Exam# [id number] Ordering Dr: Shasha Barker MD C LINICAL: [...] to the presence of visualized th yroid mimvloi-U-edmvke thyroid gland. 3. No hypofunctioning, cold nodules are identified. Electronically Signed: Asif Pagan DO at 22:10 EDT Tel , Service support [phone], CC: Shasha Barker MD Welt Insole Channeler: Signed 16-Nov-2017 Spine Cervical (Routine) Result: Comments: See Note; NOTES: [facility] Imaging Services [address] [place] [address] Spine Cervical (Routine) MR#: [id number] Acct: [id number] Name: TIN BLACKWOOD Rep #: [id number] : 1960 F 56 From: Andrew Duran DO PCP: Shasha Barker MD Status: REG CLI Study: Spine Cervical (Routine) Date of Exam: 11/16/17 Exam# [id number] Ordering Dr: More Taylor MD STUDY: MRI [...] CC: More Taylor MD; Shasha Barker MD Welt Insole Channeler: Signed 03-Nov-2017 Pelvis 1 or 2 Views Result: Comments: See Note; NOTES: [facility] Imaging Services [address] [place] [address] Pelvis 1 or 2 Views MR#: [id number] Acct: [id number] Name: TIN BLACKWOOD Rep #: [id number] : 1960 F 56 From: Vale Godoy MD PCP: Shasha Barker MD Status: REG CLI Study: Pelvis 1 or 2 Views Date of Exam: 11/03/17 Exam# [id number] Ordering Dr: hSasha Barker MD STUDY: X-RAY - PELVIS REASON [...] at 17:01 EDT Tel , Service support [phone], CC: Shasha Barker MD Welt Insole Channeler: Signed 27-Aug-2017 Orb Sella Post Fossa Ear w/o Result: Comments: See Note; NOTES: [facility] Imaging Services [address] [place] [address] Orb Sella Post Fossa Ear w/o MR#: [id number] Acct: [id number] Name: TIN BLACKWOOD Rep #: [id number] : 1960 F 56 From: Nir Dudley MD PCP: Shasha Barker MD Status: REG CLI Study: Orb Sella Post Fossa Ear w/o Date of Exam: 08/27/17 Exam# [id number] Ordering Dr: Dale Zuniga STUDY: CT TEMPORAL [...] CC: Beni Zuniga MD; Shasha Barker MD Welt Insole Channeler: Signed 25-May-2017 Chest PA and Lateral Result: Comments: See Note; NOTES: [facility] Imaging Services [address] [place] [address] Chest PA and Lateral MR#: [id number] Acct: [id number] Name: TIN BLACKWOOD Rep #: [id number] : 1960 F 56 From: Aguilar Joaquin MD PCP: Shasha Barker MD Status: REG RCR Study: Chest PA and Lateral Date of Exam: 05/25/17 Exam# [id number] Ordering Dr: Pelon Chatterjee MD STUDY: X-RAY [...] Aguilar Joaquin MD at 19:35 EST Tel [phone], Service support , CC: Shasha Barker MD; Pelon Chatterjee MD Welt Insole Channeler: Signed 15-May-2017 Chest PA and Lateral Result: Comments: See Note; NOTES: [facility] Imaging Services [address] [place] [address] Chest PA and Lateral MR#: [id number] Acct: [id number] Name: TIN BLACKWOOD Rep #: [id number] : 1960 F 56 From: Patrice Pinto MD PCP: Shasha Barker MD Status: REG CLI Study: Chest PA and Lateral Date of Exam: 05/15/17 Exam# [id number] Ordering Dr: Shasha Barker MD STUDY: X-RAY [...] Service support , CC: Shasha Barker MD Welt Insole Channeler: Signed 21-Jan-2017 Emergency Department Summary Result: Comments: See Note; NOTES: [facility] Medical Records Department [address] [facility] [address] Emergency Department Summary 01/20/17 2344 MR#: [id number] Acct: [id number] Name: TIN BLACKWOOD Rep #: [id number] : 1960 56 From: Christian Hemphill PCP: [...] for ED Patient: Disposition: Acute Care Hospital [facility] Chief Complaint: Shortness of Breath Diagnosis: Pulmonary fibro sis, Hypoxemia, Elevated troponin, Pulmonary nodule, right Referrals: Shasha Barker MD [Primary Care Provider] - What to do if you have Problems For any increased pain, shortness of breath, bleedin g, nausea or vomiting, chest pain, or any unexpected problems, contact your Primary Care Provider. Call [facility] ([phone]) or report to the closest Emergency Room. Call 911 if necessary. 01/21/17 0231 <Electronically signed by Christian Hemphill> Date Christian Hemphill Cosigner Signature (If Indicated): Date CC: Shasha Barker MD 21-Jan-2017 CTA Chest W/WO Contrast Result: Comments: See Note; NOTES: [facility] Imaging Services [address] [place] [address] CTA Chest W/WO Contrast MR#: [id number] Acct: [id number] Name: TIN BLACKWOOD Rep #: [id number] : 1960 F 56 From: Stepan Mayberry MD PCP: Shasha Barker MD Status: REG ER Study: CTA Chest W/WO Contrast Date of Exam: 01/21/17 Exam# [id number] Ordering Dr: Christian Schrader DO STUDY: CTA [...] , CC: Shasha Barker MD; Christian Schrader Welt Insole Channeler: Signed 20-Jan-2017 Chest PA and Lateral Result: Comments: See Note; NOTES: [facility] Imaging Services [address] [place] [address] Chest PA and Lateral MR#: [id number] Acct: [id number] Name: TIN BLACKWOOD Rep #: [id number] : 1960 F 56 From: Stepan Mayberry MD PCP: Shasha Barker MD Status: REG ER Study: Chest PA and Lateral Date of Exam: 01/20/17 Exam# [id number] Ordering Dr: Christian Schrader DO STUDY: X-RAY [...] , CC: Shasha Barker MD; Christian Schrader Welt Insole Channeler: Signed 21-Nov-2016 PT D/C Summary (1) Result: Comments: See Note; NOTES: [facility] Physical Therapy [facility] [address] [place] [address]. [address] [place] [address] Fax REHABILITATION SERVICES [facility] SUMMARY MR#: [id number] Acct: [id number] Name: TIN BLACKWOOD Rep #: [id number] : 1960 55 From: Yury Lawrence PT, Cert. MDT, OCS Referring Dr.: Shasha aBrker MD Status: REG RCR Insurance: A [facility] - PT D/C Summary It has been [...] please feel free to call me at [phone]. Thank you for the referral of this patient. Sincerely, Yury Lawrence PT, <Electronically signed by Yury Androsik PT, Cert. MDT, OCS> 11/21/16 1533 CC: Shasha Barker MD JLIra Signed 22-Oct-2016 Inital Evaluation (1) - PT Result: Comments: See Note; NOTES: [facility] Physical Therapy [facility] [address] [place] [address] Fax REHABILITATION SERVICES INITIAL EVALUATION MR#: [id number] Acct: [id number] Name: ITN BLACKWOOD Rep #: [id number] : 1960 55 From: Yury Lawrence PT, Cert. CASTILLO, OCS Referring Dr.: Shasha Barker MD Status: REG RCR Insurance: [employer] Patient's Visit Information TIN BLACKWOOD is a [...] cuneiform with able to remove boot as mhoini per ortho.. The patient would benefit from [...] to be FAXED BACK to us at [phone] for Medicare purposes. Please let me know [...] and Lateral Result: Comments: See Note; NOTES: [facility] Imaging Services [address] [place] [address] Verdana 4d Chest PA and Lateral MR#: [id number] Acct: [id number] Name: TIN BLACKWOOD Rep #: [id number] : 1960 F 55 From: Hair Rogers MD PCP: Shasha Barker MD Status: REG CLI Study: Chest PA and Lateral Date of Exam: 09/11/16 Exam# [id number] Ordering Dr: Pelon Chatterjee MD STUDY: X-RAY [...] CC: Shasha Barker MD; Pelon Chatterjee MD Welt Insole Channeler: Signed 18-Aug-2016 Foot min 3 Views Result: Comments: See Note; NOTES: [facility] Imaging Services [address] [place] [address] Verdana 4d Foot min 3 Views MR#: [id number] Acct: [id number] Name: TIN BLACKWOOD Rep #: [id number] : 1960 F 55 From: Smith Delaney MD PCP: Shasha Barker MD Status: REG CLI Study: Foot min 3 Views Date of Exam: 08/18/16 Exam# [id number] Ordering Dr: Shasha Barker MD STUDY: X-RAY - [facility] FOOT CLINICAL: Female, 55 years old. [...] Service support , CC: Shasha Barker MD Welt Insole Channeler: Signed 05-Aug-2016 Chest 1 View (Portable) Result: Comments: See Note; NOTES: [facility] Imaging Services [address] [place] [address] Verdana 4d Chest 1 View (Portable) MR#: [id number] Acct: [id number] Name: TIN BLACKWOOD Rep #: [id number] : 1960 F 55 From: Aguilar Joaquin MD PCP: Shasha Barker MD Status: REG ER Study: Chest 1 View (Portable) Date of Exam: 08/05/16 Exam# [id number] Ordering Dr: Regino Hinson MD STUDY: X-RAY [...] Aguilar Joaquin MD at 9:42 EDT Tel [phone], Service support [phone], CC: Shasha Barker MD; Regino Hinson MD Welt Insole Channeler: Signed 01-Jul-2016 Chest WITH Contrast Result: Comments: See Note; NOTES: [facility] Imaging Services [address] [place] [address] Verdana 4d Chest WITH Contrast MR#: [id number] Acct: [id number] Name: TIN BLACKWOOD Rep #: [id number] : 1960 F 55 From: Keyshawn Unger DO PCP: Shasha Barker MD Status: REG CLI Study: Chest WITH Contrast Date of Exam: 07/01/16 Exam# [id number] Ordering Dr: Shasha Barker MD STUDY: CT [...] 22:47 EST Tel , Service support [phone], CC: Shasha Barker MD Welt Insole Channeler: Signed 17-Jun-2016 Spine Cervical (Routine) Result: Comments: See Note; NOTES: [facility] Imaging Services [address] [place] [address] Verdana 4d Spine Cervical (Routine) MR#: [id number] Acct: [id number] Name: TIN BLACKWOOD Barbara p #: [id number] : 1960 F 55 From: Kadie Dailey MD PCP: Shasha Barker MD Status: REG CLI Study: Spine Cervical (Routine) Date of Exam: 06/17/16 Exam# [id number] Ordering Dr: More Taylor MD STUD Y: [...] MD at 11:29 EST , Service support [phone], CC: More Taylor MD; Shasha Barker MD Welt Insole Channeler: Signed 17-Jun-2016 Spine Thoracic (Routine) Result: Comments: See Note; NOTES: [facility] Imaging Services [address] [place] [address] Verda 4d Spine Thoracic (Routine) MR#: [id number] Acct: [id number] Name: TIN BLACKWOOD p #: [id number] : 1960 F 55 From: Kadie Dailey MD PCP: Shasha Barker MD Status: REG CLI Study: Spine Thoracic (Routine) Date of Exam: 06/17/16 Exam# [id number] Ordering Dr: More Taylor MD STUD Y: [...] MD at 11:55 EST , Service support [phone], CC: Ira Taylor MD; Shasha Barker MD Welt Insole Channeler: Signed 29-May-2016 Dexa Bone Density Study (HP) Result: Comments: See Note; NOTES: [facility] Imaging Services [address] [place] [address] Verdana 4d Dexa Bone Density Study (HP) MR#: [id number] Acct: [id number] Name: ELISSA BLACKWOOD Rep #: [id number] : 1960 F 55 From: Aguilar Joaquin MD PCP: Shasha Barker MD Status: REG CLI Study: Dexa Bone Density Study (HP) Date of Exam: 05/29/16 Exam# [id number] Ordering Dr: Shasha Barker MD STUDY: DUAL [...] Aguilar Joaquin MD at 13:27 EST Tel [phone], Service support [phone], CC: Shasha Barker MD Welt Insole Channeler: Signed 29-May-2016 SCREENING MAMM (CAD), BILAT Result: Comments: See Note; NOTES: [facility] Imaging Services [address] [place] [address] Verdana 4d SCREENING MAMM (CAD), BILAT MR#: [id number] Acct: [id number] Name: TIN BLACKWOOD Rep #: [id number] : 1960 F 55 From: Aguilar Joaquin MD PCP: Shasha Barker MD Status: REG CLI Study: SCREENING MAMM (CAD), BILAT Date of Exam: 05/29/16 Exam# [id number] Ordering Dr: Yoana Barker MD MAMMOGRAPHY - [...] delay biopsy of a clinically suspicious abnormality. [id number] Electronically Signed: Aguilar Joaquin MD at 15:18 EST Tel [phone], Service support [phone], CC: Shasha Barker MD Welt Insole Channeler: Signed 29-Nov-2015 NCS and/or EMG Patient Result: Comments: See Note; NOTES: [facility] Pulmonary Services/Neurology [address] [place] [address] NCS and/or EMG Patient MR#: [id number] Acct: [id number] Name: TIN BLACKWOOD Rep #: [id number] : 1960 54 From: Lucas Kiser MD [...] radiculopathy. Lucas hand MD T: NTS JOB: [id number] 11/29/15 0959 <Electronically signed by Lucas Kiser MD> Date Lucas Kiser MD CC: More Taylor MD; Shasha Barker MD; Lucas Kiser MD Date Dictated: 11/27/15 1145 Date Transcribed: 11/27/15 1145 Welt Insole Channeler: Signed 12-Oct-2015 Spine Lumbar (Routine) Result: Comments: See Note; NOTES: [facility] Imaging Services [address] [place] [address] Verdana 4d Spine Lumbar (Routine) MR#: [id number] Acct: [id number] Name: TIN BLACKWOOD Rep #: [id number] : 1960 F 54 From: Nabeel Bernabe MD PCP: Shasha Barker MD Status: REG CLI Study: Spine Lumbar (Routine) Date of Exam: 10/12/15 Exam# [id number] Ordering Dr: More Taylor MD STUDY: MRI [...] MD at 20:50 EDT , Service support [phone], CC: More Taylor MD; Shasha Barker MD Welt Insole Channeler: Signed 12-Oct-2015 Lumbar Spine 2 or 3 Views Result: Comments: See Note; NOTES: [facility] Imaging Services [address] [place] [address] Verda 4d Lumbar Spine 2 or 3 Views MR#: [id number] Acct: [id number] Name: TIN LLOYD Rep #: [id number] : 1960 F 54 From: Smith Delaney MD PCP: Shasha Barker MD Status: REG CLI Study: Lumbar Spine 2 or 3 Views Date of Exam: 10/12/15 Exam# [id number] Ordering Dr: More Watts MD STUDY: X-RAY [...] FACR at 8:27 EDT , Service support [phone], RAD/Lumbar Spine 2 or 3 Views IMPRESSION: Degenerative disc disease at L4-5 and L5-S1 with facet arthrosis. No significant changes since the prior study. Electronically Signed: Smith Delaney MD, FACR at 8:27 EDT , Service support [phone], CC: More Taylor MD; Shasha Barker MD Welt Insole Channeler: Signed 12-Oct-2015 Thoracic Spine 3 Views Result: Comments: See Note; NOTES: [facility] Imaging Services [address] [place] [address] [place] [address] 4d Thoracic Spine 3 Views MR#: [id number] Acct: [id number] Name: TIN BLACKWOOD Rep #: [id number] : 1960 F 54 From: Smith Delaney MD PCP: Shasha Barker MD Status: REG CLI Study: Thoracic Spine 3 Views Date of Exam: 10/12/15 Exam# [id number] Ordering Dr: More Taylor MD STUDY: X-RAY [...] FACR at 8:26 EDT , Service support [phone] RAD/Thoracic Spine 3 Views IMPRESSION : Thoracic spondylosis with multilevel degenerative disc disease Electronically Signed: Smith Delaney MD, FACR at 8:26 EDT , Service support [phone], Fax CC: More Taylor MD; Shasha Barker MD Welt Insole Channeler: Signed 03-Oct-2015 Chest PA and Lateral Result: Comments: See Note; NOTES: [facility] Imaging Services [address] [place] [address] Verdana 4d Chest PA and Lateral MR#: [id number] Acct: [id number] Name: Hero BLACKWOOD Rep #: [id number] : 1960 F 54 From: Aguilar Joaquin MD PCP: Shasha Barker MD Status: REG CLI Study: Chest PA and Lateral Date of Exam: 10/03/15 Exam# [id number] Ordering Dr: Hortensia Mcnamara i, MD STUDY: [...] Aguilar Joaquin MD at 12:56 EDT Tel [phone], Service support [phone], RAD/Chest PA and Lateral IMPRESSION: Minimal degree of res idual increased markings at the lung bases as compared to prior study. Electronically Signed: Aguilar Joaquin MD at 12:56 EDT Tel [phone], Service support [phone], Fax CC: Shasha Barker MD; Hortensia Tinajero MD Welt Insole Channeler: Signed 05-Sep-2015 Kidney and Bladder Result: Comments: See Note; NOTES: [facility] Imaging Services [address] [place] [address] Verdana 4d Kidney and Bladder MR#: [id number] Acct: [id number] Name: KARINA BLACKWOOD Rep #: [id number] : 1960 F 54 From: Aguilar Joaquin MD PCP: Shasha Barker MD Status: REG CLI Study: Kidney and Bladder Date of Exam: 09/05/15 Exam# [id number] Ordering Dr: Sacha Barker MD STUDY: RENAL [...] Aguilar Joaquin MD at 10:56 EDT Tel [phone], Service support [phone], CC: Shasha Barker MD Welt Insole Channeler: Signed 22-Jun-2015 Nuclear Stress Test - Chemical Result: Comments: See Note; NOTES: [facility] Imaging Services [address] [place] [address] Verdana 4d Nuclear Stress Test - Chemical MR#: [id number] Acct: [id number] N miguel: TIN BLACKWOOD Rep #: [id number] : 1960 54 From: Dusty Lund MD [...] fraction. Dusty Lund MD T: NTS JOB: [id number] 06/26/15 1259 & #60;Electronically signed by Dusty Lund MD> Date Dusty Lund MD CC: Shasha Barker MD Date Dictated: 06/22/151819 Date Transcribed: 06/22/151819 Welt Insole Channeler: Signed 13-Jun-2015 Lumbar Spine 2 or 3 Views Result: Comments: See Note; NOTES: [facility] Imaging Services [address] [place] [address] Verdana 4d Lumbar Spine 2 or 3 Views MR#: [id number] Acct: [id number] Name: TIN LLOYD Rep #: [id number] : 1960 F 54 From: Smith Delaney MD PCP: Shasha Barker MD Status: REG CLI Study: Lumbar Spine 2 or 3 Views Date of Exam: 06/13/15 Exam# [id number] Ordering Dr: More Watts MD STUDY: X-RAY [...] FACR at 11:06 EST , Service support [phone], RAD/Lumbar Spine 2 or 3 Views IM PRESSION: Degenerative disc disease at L4-5 and L5-S1. Electronically Signed: Smith Delaney MD, FACR at 11:06 EST , Service support [phone], CC: More Taylor MD; Shasha Barker MD Welt Insole Channeler: Signed 13-Jun-2015 Thoracic Spine 3 Views Result: Comments: See Note; NOTES: [facility] Imaging Services [address] [place] [address] Verdana 4d Thoracic Spine 3 Views MR#: [id number] Acct: [id number] Name: TIN BLACKWOOD Rep #: [id number] : 1960 F 54 From: Smith Delaney MD PCP: Shasha Barker MD Status: REG CLI Study: Thoracic Spine 3 Views Date of Exam: 06/13/15 Exam# [id number] Ordering Dr: More Taylor MD ADDENDUM by Smith Delaney MD on 06/14/15 at 1105 ADDENDUM TECHNIQUE: 3 view(s) o f the thoracic spine were obtained. Electronically Signed: Smith Delaney MD, FACR at 11:05 EST , Service support [phone], 06/14/15 1105 Date cc: More Taylor MD; [...] FACR at 11:05 EST , Service support [phone], RAD/Thoracic S pine 3 Views IMPRESSION: Thoracic spondylosis Electronically Signed: Smith Delaney MD, FACR at 11:05 EST , Service support [phone], CC: More Taylor MD; Shasha Barker MD Welt Insole Channeler: Signed 13-Jun-2015 Thoracic Spine 3 Views Result: Comments: See Note; NOTES: [facility] Imaging Services [address] [place] [address] Verdana 4d Thoracic Spine 3 Views MR#: [id number] Acct: [id number] Name: TIN BLACKWOOD Rep #: [id number] : 1960 F 54 From: Smith Delaney MD PCP: Shasha Barker MD Status: REG CLI Study: Thoracic Spine 3 Views Date of Exam: 06/13/15 Exam# [id number] Ordering Dr: More Taylor MD STUDY: X-RAY [...] FACR at 11:05 EST , Service support [phone], RAD/Thoracic Spine 3 Views IMPRESSION: Thoracic spondylosis Electronic ally Signed: Smith Delaney MD, FACR at 11:05 EST , Service support [phone], CC: More Taylor MD; Shasha Barker MD [employer] In[employer] Channeler: Signed 08-Jun-2015 EKG (87995) Result: [MEASUREMENTS ANALYSIS] Date of Test: 06/08/2015 13:15:12; Heart Rate: 96; MO Interval: 130; QRS: 88; QT Interval: 340; Corrected QT Interval (QTc): 403; P Wave [place]: 48; QRS [place]: 32; T Wave [place]: 36; Blood Pressure: 120/80 [ECG DIAGNOSTIC STATEMENTS] Date of Test: 06/08/2015 13:15:12; Summary: Sinus Rhythm WITHIN NORMAL LIMITS [MEASUREMENTS ANALYSIS] Date of Test: 06/08/2015 13:14:43; Heart Ra te: 97; MO Interval: 126; QRS: 88; QT Interval: 340; Corrected QT Interval (QTc): 404; P Wave [place]: 51; QRS [place]: 31; T Wave [place]: 40; Blood Pressure: 120/80 [ECG DIAGNOSTIC STATEMENTS] Date of Supriya t: 06/08/2015 13:14:43; Summary: Sinus Rhythm WITHIN NORMAL LIMITS 27-Feb-2015 Chest PA and Lateral Result: Comments: See Note; NOTES: [facility] Imaging Services [address] [place] [address] Verdana 4d Chest PA and Lateral MR#: [id number] Acct: [id number] Name: Hero BLACKWOOD Rep #: [id number] : 1960 F 54 From: Aguilar Joaquin MD PCP: Shasha Barker MD Status: REG CLI Study: Chest PA and Lateral Date of Exam: 02/27/15 Exam# [id number] Ordering Dr: Ophelia Boogie STUDY: X-RAY CHEST [...] Aguilar Joaquin MD at 13:45 EDT Tel [phone], Service support [phone], RAD/Chest PA and Lateral IMPRES TABBY: Persistent interstitial disease in keeping with known scarring. Improved aeration of both lungs with residual infiltrate in the peripheral aspect of the right lung. Electronically Signed: Darryl Joaquin MD at 13:45 EDT Tel [phone], Service support [phone], CC: Ophelia Boogie; Shasha Barker MD [employer] Channeler: Signed 05-Feb-2015 Chest PA and Lateral Result: Comments: See Note; NOTES: [facility] Imaging Services [address] [place] [address] Radiology Report MR#: [id number] Acct: [id number] Name: TIN BLACKWOOD Rep #: [id number] : 1960 F 54 From: Vega Payan MD PCP: Shasha Barker MD Status: REG CLI Study: Chest PA and Lateral Date of Exam: 02/05/15 Exam# [id number] Ordering Dr: Ophelia Boogie STUDY: X-RAY C [...] Vega Payan MD at 17:03 EDT Tel [phone], Service support [phone], [phone] RAD/Chest PA and Lateral IMPRESSION: 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 Recommend followup till clear. Electronically Signed: Vega Payan MD a t 17:03 EDT Tel [phone], Service support [phone], CC: Ophelia Boogie; Shasha Barker MD [employer] Channeler: Signed 06-Nov-2014 Operative Report Result: Comments: See Note; NOTES: [facility] Medical Records Department [address] [place] [address] Operative Report MR#: [id number] Acct: [id number] Name: TIN BLACKWOOD Rep #: [id number] : 1960 53 From: Allie Bales MD PCP: Shasha Barker MD Status: [facility] DATE OF SERVICE: 11/06/2014 DATE OF [...] time. Allie Bales MD T: NTS JOB: [id number] 11/06/14 1429 <Electronically signed by Allie Bales MD> Raul e Allie Bales MD CC: Allie Bales MD; Shasha Barker MD Date Dictated: 11/06/14 1231 Date Transcribed: 11/06/14 1231 [employer] Channeler: Signed 06-Nov-2014 Discharge Instruction Result: Comments: See Note; NOTES: [facility] Medical Records Department [address] [place] [address] Instructions for Home/Discharge Instructions 11/06/14 1204 MR#: [id number] ct: [id number] Name: TIN BLACKWOOD Rep #: [id number] : 1960 53 From: Allie Bales MD PCP: Shasha Barker MD Status: REG [facility] [place] Discharge Diet: No Restrictions Discharge Activity: Return [...] Operative Report Result: Comments: See Note; NOTES: [facility] Medical Records Department [address] [place] [address] Operative Report 11/06/14 1202 MR#: [id number] Acct: [id number] Name: TIN BLACKWOOD Rep #: [id number] : 1960 53 From: Allie Bales MD PCP: Shasha Barker MD Status: REG [facility] [place] Location: [place] [address] Operative Report (Blank) Date of Procedure: 11/06/14 Preop: Mary rrhagia, thickened endometrium Postop: Same Procedure: D and C, hysteroscopy Surgeon: Amairani EBL: minimal Fluids: Lactated ringers Meds: 10cc local Lidocaine to cervix, Clindamycin and Gent amycin IV preop Anesthesia: MAC + local Lidocaine Urine: 200cc clear urine 11/06/14 1204 <Electronically signed by Allie Bales MD> Date Allie Bales MD CC: Allie Blaes MD; Shasha Barker MD Signed 24-Jul-2014 Transvaginal Non- Result: Comments: See Note; NOTES: [facility] Imaging Services [address] [place] [address] Ultrasound Report MR#: [id number] Acct: [id number] Name: TIN BLACKWOOD Rep #: [id number] : 1960 F 53 From: Aguilar Joaquin MD PCP: Shasha Barker MD Status: REG CLI Study: Transvaginal Non- Date of Exam: 07/24/14 Exam# [id number] Ordering Dr: Ophelia Boogie STUDY: ULTRASOUND OF [...] Aguilar Joaquin MD at 10:36 EDT Tel [phone], Service support [phone], CC: Ophelia Boogie; Shasha Barker MD [employer] Channeler: Signed 24-Jul-2014 Pelvic (Non ) Result: Comments: See Note; NOTES: [facility] Imaging Services [address] [place] [address] Ultrasound Report MR#: [id number] Acct: [id number] Name: TIN BLACKWOOD Rep #: [id number] : 1960 F 53 From: Aguilar Joaquin MD PCP: Shasha Barker MD Status: REG CLI Study: Pelvic (Non ) Date of Exam: 07/24/14 Exam# [id number] Ordering Dr: Ophelia Boogie STUDY: ULTR ASOUND [...] Darryl Joaquin MD at 10:36 EDT Tel [phone], Service support [phone], CC: Ophelia Boogie; Shasha Barker MD [employer] Channeler: Signed 05-Sep-2013 Cerv Spine 4 or 5 Views Result: Comments: See Note; NOTES: [facility] Imaging Services [address] [place] [address] Radiology Report MR#: [id number] Acct: [id number] Name: TIN BLACKWOOD Rep #: [id number] : 1960 F 52 From: Vazquez Kaye MD PCP: Shasha Barker MD Status: REG CLI Study: Cerv Spine 4 or 5 Views Date of Exam: 09/05/13 Exam# [id number] Ordering Dr: More Taylor MD STUDY: X-RAY [...] MD at 14:28 EDT , Service support [phone], RAD/Cerv Spine 4 or 5 Views IMPRESSION: Multilevel degenerative changes, 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 No significant interval change Electronically Signed: Glenn Kaye MD at 14:28 EDT , Service support [phone] , CC: More Taylor MD; Shasha Barker MD [employer] Channeler: Signed 10-Feb-2013 Hand Min 3 Views Result: Comments: See Note; NOTES: [facility] Imaging Services [address] [place] [address] Radiology Report MR#: [id number] Acct: [id number] Name: TIN BLACKWOOD Rep #: [id number] : 1960 F 52 From: Julio Cannon MD PCP: Status: REG CLI Study: Hand Min 3 Views Date of Exam: 02/10/13 Exam# [id number] Ordering Dr: Shasha Barker MD STUDY: X-RAY [...] February 10, 2013 at 10:35:57 PM EDT [phone] Electronically Signed BP/BP If you are the refe rring physician and would like to consult with the radiologist who provided this interpretation, please contact Julio Cannon M.D. at [phone]. If this radiologist is unavailable, you will [...] of these documents. CC: Shasha Barker MD [employer] Channeler: Signed 10-Feb-2013 Hand Min 3 Views Result: Comments: See Note; NOTES: [facility] Imaging Services [address] [facility] [place] [address] Radiology Report MR#: [id number] Acct: [id number] Name: TIN BLACKWOOD Rep #: [id number] : 1960 F 52 From: Julio Cannon MD PCP: Status: REG CLI Study: Hand Min 3 Views Date of Exam: 02/10/13 Exam# [id number] Ordering Dr: Shasha Barker MD STUDY: X-RAY [...] February 10, 2013 at 10:36:47 PM EDT [phone] Electronically Signed BP/BP If you are the referring physician and would like to consult with the radiologist who provided this interpretation, please contact Julio Cannon M.D. at [phone]. If this radiologist is unavaila ble, you will be directed to another radiologist to assist. If you are a patient with a question regarding this report, please contact your referring physician directly. Professional Interpretatio n Provided By: [employer], Phone , These documents contain legally protected [...] of these documents. 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 No Drug Use 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 Tobacco Use: Current every day smoker. 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 Non Smoker/No Tobacco Use Status: Inactive Tobacco use: Former smoker. Status: Inactive Smoking Status Name Dates Details Current every day smoker Vital Signs Date Test Result Details 7-Glf-634549:44 Temperature 97.6 f Comments: Method: Temporal Pulse [...] :00 Tissue Biopsy See Note (Normal) Comments: [facility] [address] [place], [address] Comments: Patient: TIN BLACKWOOD : 1960 (57/F) Acct Num: [id number] Phys: Melissa CADETJose L Unit Num: [id number] Loc: [facility] Specimen: [id number] Received: 02/19/18 151 Spec Typ e: Tissue [...] time of embedding. / JANES:tammy TC:5 CPT: 61972 HEADER OPERATION: Biopsy cheek/lip PRE-OP DIAGNOSIS: Probable fibroma TISSUE SUBMITTED: Biopsy cheek/lip MICROSCOPIC DESCRIPTION Slides are reviewed. MICROSCOPIC DI AGNOSIS Cheek/lip, biopsy: Squamous mucosa with subepithelial fibrosis, consistent with irritation fibroma. SJ:tammy 02/22/18 Signed Jarrod Holland 02/22/18 <signature on file> 8-Qmc-808573:19 HgA1C , Office (97666) HgA1C , Office 6.1 % (Normal) Range: 4.6 - 7.1 4-Efn-162255:19 Blood Glucose , Office (67768) Blood Glucose , Office 153 (Normal) 5-Hbl-489635:19 Urinalysis, Office (44960) UA - LEUKOCYTE ESTERASE Negative (Normal) UA - NITRITE Negative (Normal) URINE UROBILINGN SRAVANI TIMED Normal mg/dL (Normal) UA - PROTEIN Negative mg/dL (Normal) UA - PH 7 (Normal) UA - BLOOD Negative (Normal) UA - SPECIFIC GRAVITY 1.010 (Normal) UA - KETONES Negative mg/dL (Normal) UA - BILIRUBIN Negative (Normal) UA - GLUCOSE Negative (Normal) 2-Fot-367596:42 CBC-Complete Blood Cnt No Diff Comments: [facility] [address] [place], [address] MPV 9.7 fL (Normal) Range: [...] 4.2-5.4 WBC 8.0 K/mm3 (Normal) Range: 4.4-11.0 0-Lrv-052981:42 Differential Comment Comments: [facility] [address] [place], [place], [id number] SMEAR COMMENT SCANNED (Normal) Comments: 1+ ANISOCYTOSIS 6-Uve-655022:42 Liver Profile Comments: Comments: [facility] [address] [place], [place], [id number] D BILI 0.14 mg/dL (Normal) Range: 0.00-0.30 T BILI 0.60 mg/dL (Normal) Range: 0.20-1.00 ALT 49 U/L (Normal) Range: 13-56 ALK P 46 U/L (Normal) Range: 45-117 AST 25 U/L (Normal) Range: 15-37 GLOB 3.4 g/dL (Normal) Range: 2.2-4.2 ALB 3.6 g/dL (Normal) Range: 3.2-5.0 T PROT 7.0 g/dL (Normal) Range: 6.4-8.2 74-Duj-357980:21 CBC-Complete Blood Cnt No Diff Comments: [facility] [address] [place], [place], [address] MPV 10.2 fL (Normal) Range: 6.2-12.0 PLT [...] 4.2-5.4 WBC 8.0 K/mm3 (Normal) Range: 4.4-11.0 73-Rjc-862803:21 Liver Profile Comments: [facility] [address] [place], [place], [address] D BILI 0.14 mg/dL (Normal) Range: 0.00-0.30 T BILI 0.80 mg/dL (Normal) Range: 0.20-1.00 ALT 50 U/L (Normal) Range: 13-56 ALK P 42 U/L (Abnormal) Range: 45-117 AST 30 U/L (Normal) Range: 15-37 GLOB 3.6 g/dL (Normal) Range: 2.2-4.2 ALB 4.0 g/dL (Normal) Range: 3.2-5.0 T PROT 7.6 g/dL (Normal) Range: 6.4-8.2 5-Dlh-601107:48 HEPATIC FUNCTION PANEL Comments: PATIENT NOT FASTINGPERFORMED BY: [facility] [id number] (30581) ALT (SGPT) 45 [iU]/L (Abnormal) Range: 0-32 AST (SGOT) 33 [iU]/L (Normal) Range: 0-40 Alkaline Phosphatase 39 [iU]/L (Normal) Range: 39-117 Bilirubin, Direct 0.08 mg/dL (Normal) Range: 0.00-0.40 Bilirubin, Total 0.3 mg/dL (Normal) Range: 0.0-1.2 Protein, Total 6.8 g/dL (Normal) Range: 6.0-8.5 :48 T3, FREE (TRIDOTHYRONINE) (90080) Comments: PATIENT NOT FASTINGPERFORMED BY: [facility] [id number] Triiodothyronine (T3), Free 2.6 pg/mL (Normal) Range: 2.0-4.4 :48 T4, FREE (THYROXINE) (71501) Comments: PATIENT NOT FASTINGPERFORMED BY: [facility] [id number] T4,Free(Direct) 0.90 ng/dL (Normal) Range: 0.82-1.77 :48 TSH (97106) Comments: PATIENT NOT FASTINGPERFORMED BY: [facility] [id number] TSH 0.333 {uIU/mL} (Abnormal) Range: 0.450-4.500 :48 Renal function Panel (86567) Comments: PATIENT NOT FASTINGPERFORMED BY: [facility] Wjtwwq8394 [facility] [id number] Albumin 4.6 g/dL (Normal) Range: 3.5-5.5 Phosphorus [...] 6-24 Glucose 118 mg/dL (Abnormal) Range: 65-99 93-Qbl-089163:54 CBC-Complete Blood Cnt No Diff Comments: [facility] [address] [facility] [address] [place], [place], [address] MPV 10.3 fL (Normal) Range: 6.2-12.0 PLT [...] 4.2-5.4 WBC 7.3 K/mm3 (Normal) Range: 4.4-11.0 60-Imb-591144:54 Liver Profile Comments: [facility] [address] [facility] [address] [place], [place], [address] D BILI 0.09 mg/dL (Normal) Range: 0.00-0.30 T BILI 0.40 mg/dL (Normal) Range: 0.20-1.00 ALT 49 U/L (Normal) Range: 13-56 ALK P 58 U/L (Normal) Range: 45-117 AST 22 U/L (Normal) Range: 15-37 GLOB 3.4 g/dL (Normal) Range: 2.2-4.2 ALB 3.9 g/dL (Normal) Range: 3.2-5.0 T PROT 7.3 g/dL (Normal) Range: 6.4-8.2 69-Obk-735832:13 Liver Profile Comments: [facility] [address] [place], [place], [address] D BILI 0.07 mg/dL (Normal) Range: 0.00-0.30 T BILI 0.40 mg/dL (Normal) Range: 0.20-1.00 ALT 49 U/L (Normal) Range: 13-56 Comments: Please note revised ALT reference range awessfsog54/28/2018. ALK P 53 U/L (Normal) Range: 45-117 AST 22 U/L (Normal) Range: 15-37 GLOB 3.3 g/dL (Normal) Range: 2.2-4.2 ALB 4.0 g/dL (Normal) Range: 3.2-5.0 T PROT 7.3 g/dL (Normal) Range: 6.4-8.2 2-Dlx-191120:59 CBC-Complete Blood Cnt No Diff Comments: [facility] [address] [place], [place], [address] MPV 10.4 fL (Normal) Range: 6.2-12.0 PLT [...] 4.2-5.4 WBC 9.1 K/mm3 (Normal) Range: 4.4-11.0 5-Jeo-545385:59 Erythrocyte Sed Rate Comments: [facility] [address] [place], [place], [address] SED RATE 15 mm/h (Normal) Range: 0-30 54-Brr-202572:22 CBC-Complete Blood Cnt No Diff Comments: [facility] [address] [place], [address] MPV 10.4 fL (Normal) Range: 6.2-12.0 PLT [...] 4.2-5.4 WBC 7.6 K/mm3 (Normal) Range: 4.4-11.0 01-Ggv-443056:22 Liver Profile Comments: Comments: [facility] [address] [place], [place], [address] D BILI 0.12 mg/dL (Normal) Range: 0.00-0.30 T BILI 0.60 mg/dL (Normal) Range: 0.20-1.00 ALT 38 U/L (Normal) Range: 13-56 Comments: Please note revised ALT reference range rrgfzgwqu90/28/2018. ALK P 53 U/L (Normal) Range: 45-117 AST 31 U/L (Normal) Range: 15-37 GLOB 3.2 g/dL (Normal) Range: 2.2-4.2 ALB 3.7 g/dL (Normal) Range: 3.2-5.0 T PROT 6.9 g/dL (Normal) Range: 6.4-8.2 70-Vbz-167070:33 CBC-Complete Blood Cnt No Diff Comments: [facility] [address] [place], [place], [address] MPV 10.7 fL (Normal) Range: 6.2-12.0 PLT [...] 4.2-5.4 WBC 11.5 K/mm3 (Abnormal) Range: 4.4-11.0 35-Liu-250196:33 Liver Profile Comments: [facility] [address] [place], [place], [address] D BILI 0.09 mg/dL (Normal) Range: 0.00-0.30 T BILI 0.60 mg/dL (Normal) Range: 0.20-1.00 ALT 33 U/L (Normal) Range: 13-56 Comments: Please note revised ALT reference range epozvlirl97/28/2018. ALK P 59 U/L (Normal) Range: 45-117 AST 15 U/L (Normal) Range: 15-37 GLOB 3.7 g/dL (Normal) Range: 2.2-4.2 ALB 3.8 g/dL (Normal) Range: 3.2-5.0 T PROT 7.5 g/dL (Normal) Range: 6.4-8.2 02-Ztf-604122:29 CBC-Complete Blood Cnt No Diff Comments: [facility] [address] [place], [place], [address] MPV 11.1 fL (Normal) Range: 6.2-12.0 PLT [...] 4.2-5.4 WBC 9.5 K/mm3 (Normal) Range: 4.4-11.0 61-Edt-992845:29 Liver Profile Comments: [facility] [address] [place], [place], [address] D BILI 0.10 mg/dL (Normal) Range: 0.00-0.30 T BILI 0.40 mg/dL (Normal) Range: 0.20-1.00 ALT 29 U/L (Normal) Range: 12-78 ALK P 51 U/L (Normal) Range: 45-117 AST 12 U/L (Abnormal) Range: 15-37 GLOB 3.6 g/dL (Normal) Range: 2.2-4.2 ALB 3.9 g/dL (Normal) Range: 3.4-5.0 Comments: Please note revised Albumin AND Globulin reference rangeeffective 2017. T PROT 7.5 g/dL (Normal) Range: 6.4-8.2 1-Jee-510635:34 Gram Stain w/Sputum Cult Comments: PATIENT NOT FASTINGPERFORMED BY: [facility] Ppnsic2849 [facility] [id number] Information: SRC:SP Rflx Gram Stain Evaluation GSACC (Normal) Comments: This specimen is of good quality and is acceptable for routinebacterial culture. Result 1 GNRF (Normal) Comments: Few gram negative rods.Few gram positive cocciRare gram negative coccobacilli Epithelial Cells Few (Normal) White Blood Cells None seen (Normal) 3-Lim-819887:34 Sputum Culture Comments: PATIENT NOT FASTINGPERFORMED BY: [employer] Rqvyxz0002 [facility] [id number] Result 1 RRF (Normal) Comments: Routine respiratory roxanne Lower Respiratory Culture Final report (Normal) 2-Hxe-581773:12 TSH (82370) Comments: PATIENT NOT FASTINGPERFORMED BY: [facility]Pvorwu7828 [facility] [id number] TSH 0.434 {uIU/mL} (Abnormal) Range: 0.450-4.500 8-Ugt-972777:12 T3, FREE (TRIDOTHYRONINE) (94078) Comments: PATIENT NOT FASTINGPERFORMED BY: [facility] Myopfq8782 [facility] [id number] Triiodothyronine,Free,Serum 3.0 pg/mL (Normal) Range: 2.0-4.4 8-Qsp-195050:12 T4, FREE (THYROXINE) (75725) Comments: PATIENT NOT FASTINGPERFORMED BY: [facility]Cojwlf4463 [facility] [id number]; review 05/15 T4,Free(Direct) 1.22 ng/dL (Normal) Range: 0.82-1.77 86-Hhp-394410:14 CBC-Complete Blood Cnt No Diff Comments: [facility] [address] [place], [address] MPV 10.8 fL (Normal) Range: 6.2-12.0 PLT [...] 4.2-5.4 WBC 7.7 K/mm3 (Normal) Range: 4.4-11.0 03-Djs-489393:14 Liver Profile Comments: [facility] [address] [place], [place], [address] D BILI 0.11 mg/dL (Normal) Range: 0.00-0.30 T BILI 0.60 mg/dL (Normal) Range: 0.20-1.00 ALT 31 U/L (Normal) Range: 12-78 ALK P 51 U/L (Normal) Range: 45-117 AST 22 U/L (Normal) Range: 15-37 GLOB 3.3 g/dL (Normal) Range: 2.2-4.2 ALB 3.7 g/dL (Normal) Range: 3.4-5.0 Comments: Please note revised Albumin AND Globulin reference rangeeffective 2017. T PROT 7.0 g/dL (Normal) Range: 6.4-8.2 2-Pkh-364494:36 CBC-Complete Blood Cnt No Diff Comments: BONEZZI ORDERED TSH,FT4,FT3,AND TPOSTANDING ORDER [facility] [address] [place], [address] MPV 10.7 fL (Normal) Range: [...] 4.2-5.4 WBC 6.9 K/mm3 (Normal) Range: 4.4-11.0 3-Vgh-999867:36 Free T3 Comments: [facility] [address] [place], [address] FREE T3 2.6 pg/mL (Normal) Range: 2.18-3.98 0-Rck-373337:36 Liver Profile Comments: [facility] [address] [place], [address] D BILI 0.07 mg/dL (Normal) Range: 0.00-0.30 T BILI 0.40 mg/dL (Normal) Range: 0.20-1.00 ALT 32 U/L (Normal) Range: 12-78 ALK P 48 U/L (Normal) Range: 45-117 AST 15 U/L (Normal) Range: 15-37 GLOB 3.2 g/dL (Normal) Range: 2.2-4.2 ALB 3.7 g/dL (Normal) Range: 3.4-5.0 Comments: Please note revised Albumin AND Globulin reference rangeeffective 2017. T PROT 6.9 g/dL (Normal) Range: 6.4-8.2 7-Wsp-181661:36 T4 Free Direct Comments: [facility] [address] [place], [address] T4 FREE DIRECT 0.84 ng/dL (Normal) Range: 0.76-1.46 1-Qef-141332:36 Thyroid Peroxidase AB Comments: [facility] (refer to report for specific site)refer to report for address and phone number TPO AB 0576 11 {IU/mL} (Normal) Range: 0-34 Comments: Performed at: [address] [id number] Director: Jose L Patel PhD, Phone: [phone] 1-Jxt-014416:36 Thyroid Stim Hormone (TSH) Comments: [facility] [address] [place], [address] TSH 0.36 {uIU/mL} (Normal) Range: 0.358-3.74 28-Qmg-236878:03 CBC-Complete Blood Cnt No Diff Comments: [facility] [address] [place], [id number] MPV 10.4 fL (Normal) Range: 6.2-12.0 PLT [...] 4.2-5.4 WBC 9.2 K/mm3 (Normal) Range: 4.4-11.0 48-Dwi-031474:03 Liver Profile Comments: [facility] [address] [place], [place], [address] D BILI 0.11 mg/dL (Normal) Range: 0.00-0.30 T BILI 0.40 mg/dL (Normal) Range: 0.20-1.00 ALT 30 U/L (Normal) Range: 12-78 ALK P 52 U/L (Normal) Range: 45-117 AST 14 U/L (Abnormal) Range: 15-37 GLOB 3.4 g/dL (Normal) Range: 2.2-4.2 ALB 4.1 g/dL (Normal) Range: 3.4-5.0 Comments: Please note revised Albumin AND Globulin reference rangeeffective 2017. T PROT 7.5 g/dL (Normal) Range: 6.4-8.2 43-Urp-718433:28 CBC-Complete Blood Cnt No Diff Comments: [facility] [address] [place], [place], [address] MPV 11.1 fL (Normal) Range: 6.2-12.0 PLT [...] 4.2-5.4 WBC 8.7 K/mm3 (Normal) Range: 4.4-11.0 78-Cir-217326:28 Liver Profile Comments: [facility] [address] [facility] [address] [place], [place], [address] D BILI 0.13 mg/dL (Normal) Range: 0.00-0.30 T BILI 0.60 mg/dL (Normal) Range: 0.20-1.00 ALT 32 U/L (Normal) Range: 12-78 ALK P 44 U/L (Abnormal) Range: 45-117 AST 13 U/L (Abnormal) Range: 15-37 GLOB 3.2 g/dL (Normal) Range: 2.2-4.2 ALB 3.7 g/dL (Normal) Range: 3.4-5.0 Comments: Please note revised Albumin AND Globulin reference rangeeffective 2017. T PROT 6.9 g/dL (Normal) Range: 6.4-8.2 [id number] CBC-Complete Blood Cnt No Diff Comments: [facility] [id number] [place], [place], [id number] MPV 10.9 fL (Normal) Range: 6.2-12.0 PLT [...] 4.2-5.4 WBC 7.8 K/mm3 (Normal) Range: 4.4-11.0 [id number] CBC-Complete Blood Cnt No Diff Comments: [facility] [facility] [id number] [facility] [address] [place], [place], [id number] MPV 11.2 fL (Normal) Range: 6.2-12.0 PLT [...] 4.2-5.4 WBC 9.1 K/mm3 (Normal) Range: 4.4-11.0 [id number] Liver Profile Comments: [facility] [id number] [facility] [address] [place], [place], [id number] D BILI 0.09 mg/dL (Normal) Range: 0.00-0.30 T BILI 0.20 mg/dL (Normal) Range: 0.20-1.00 ALT 34 U/L (Normal) Range: 12-78 ALK P 55 U/L (Normal) Range: 45-117 AST 15 U/L (Normal) Range: 15-37 GLOB 3.3 g/dL (Normal) Range: 2.3-3.5 ALB 3.5 g/dL (Normal) Range: 3.4-5.0 T PROT 6.8 g/dL (Normal) Range: 6.4-8.2 [id number] URINE ALISSON CULTURE-IDENTIFICATN Comments: PERFORMED BY: [facility] [id number] Kay Spencer [place] [id number] Information: SRC:UR (07093) Antimicrobial MIHEAD (Normal) Comments: S = Susceptible; [...] mL (Abnormal) Urine Final report Culture,Comprehensive (Abnormal) 31-Xsy-114014:47 Urinalysis, Office (50358) UA - LEUKOCYTE ESTERASE Small (Normal) UA - NITRITE Negative (Normal) URINE UROBILINGN SRAVANI TIMED Normal mg/dL (Normal) UA - PROTEIN Negative mg/dL (Normal) UA - PH 6 (Abnormal) UA - BLOOD Negative (Normal) UA - SPECIFIC GRAVITY 1.005 (Normal) UA - KETONES Negative mg/dL (Normal) UA - BILIRUBIN Negative (Normal) UA - GLUCOSE Negative (Normal) 95-Cnw-538936:58 Basic Metabolic Profile (BMP) Comments: 'TROP' Serial specimen #1, #2, #3, or #4: 1[facility] Fndtxaiynn5407 [facility] [place], [place], [address] GAP 10 (Normal) Range: 5-15 CO2 25.0 [...] :58 CBC W/Diff, Automated Comments: [facility] Qanthikiwf[address] [place], [place], [address] Absolute Lymph 1.13 {X10_3/ul} (Normal) Range: 0.83-4.51 [...] Serial specimen #1, #2, #3, or #4: [facility] Ojkrqitpcb2658 [place], [address] TROPONIN-I 0.11 ng/mL (Abnormal) Comments: TROPONIN-I EXPECTED VALUES <0.05 NEGATIVE 0.06 - 0.59 AT RISK OF KS > OR = 0.60 SUGGEST KS :56 CBC W/Diff, Automated Comments: [facility] [place] [facility] [address] [place], [address] Absolute Lymph 1.30 {X10_3/ul} (Normal) [...] 4.2-5.4 WBC 9.2 K/mm3 (Normal) Range: 4.4-11.0 71-Gid-667730:56 Comprehensive Metabolic Profil Comments: [facility] [address] [place], [place], [address] GAP 8 (Normal) Range: 5-15 CO2 29.0 [...] <126 mg/dLsuggests IMPAIRED HOMEOSTASIS per A.D.A. criteria. 56-Cxh-193056:39 CBC W/Diff, Automated Comments: [facility] [place] [facility] Maybkzqwbo[address] [place], [address] Absolute Lymph 1.40 {X10_3/ul} (Normal) [...] 4.2-5.4 WBC 8.8 K/mm3 (Normal) Range: 4.4-11.0 91-Uml-086433:39 Comprehensive Metabolic Profil Comments: [facility] [place] [facility] Xevib[address]gua[address] [place], [address] GAP 7 (Normal) Range: 5-15 CO2 30.0 [...] 126 mg/dLsuggests DIABETES MELLITUS per A.D.A. criteria. 10-Zqj-101635:43 Homocysteine, Plasma (58712) Comments: PATIENT NOT FASTINGPERFORMED BY: Paraytec70 [facility] [id number] Homocyst(e)ine, Plasma 9.3 umol/L (Normal) Range: 0.0-15.0 43-Zle-714121:12 CRP, High Sensitivity Cardiac Comments: [facility] [place] [facility] L[address]ie[address] [facility] [address] [place], [place], [address] CRP HIGH SENS 1.10 mg/L (Normal) Comments: Low Relative Risk of CVD <1.0 mg/L Average Relative Risk of CVD 1.0 - 3.0 mg/L High Relative Risk of CVD >3.0 mg/L 82-Jka-583506:12 Erythrocyte Sed Rate Comments: [facility] [place] [facility] [address] [place], [address] SED RATE 24 mm/h (Normal) Range: 0-30 9-Isx-256812:28 CBC WITH MANUAL DIFF (35545) Comments: PATIENT NOT FASTINGPERFORMED BY: Syrenaica6370 [facility] [id number] Immature Grans (Abs) 0.0 {x10E3/uL} (Normal) Range: [...] 3.77-5.28 WBC 7.3 {x10E3/uL} (Normal) Range: 3.4-10.8 2-Zhm-792613:28 Metabolic Panel, Basic Comments: PATIENT NOT FASTINGPERFORMED BY: [facility]Civmly1147 [facility] [id number]; will review at 09/04 appt (45385) Calcium, Serum 9.4 mg/dL (Normal) Range: 8.7-10.2 [...] Glucose, Serum 107 mg/dL (Abnormal) Range: 65-99 54-Cam-250907:31 CBC With Differential/Platelet Comments: PATIENT NOT FASTINGPERFORMED BY: [facility]Ighack2443 [facility] [id number] Immature Grans (Abs) 0.0 {x10E3/uL} Range: 0.0-0.1 [...] Comments: PATIENT NOT FASTINGPERFORMED BY: [facility]6370 [facility] [id number] 13:31 Comments: WRITTEN AUTHORIZATION RECEIVED.AUTHORIZATION RECEIVED FROM JACKIE BRUNO LPN [id number] BY RADHA EMMANUEL 52-Zge-088052:31 CBC (Auto) (84280) Comments: PATIENT NOT FASTINGPERFORMED BY: [facility]6370 [facility] [id number] Platelets 416 {x10E3/uL} (Abnormal) Range: 150-379 RDW 17.2 % (Abnormal) Range: 12.3-15.4 MCHC 32.4 g/dL (Normal) Range: 31.5-35.7 MCH 27.0 pg (Normal) Range: 26.6-33.0 MCV 83 fL (Normal) Range: 79-97 Hematocrit 36.7 % (Normal) Range: 34.0-46.6 Hemoglobin 11.9 g/dL (Normal) Range: 11.1-15.9 RBC 4.40 {x10E6/uL} (Normal) Range: 3.77-5.28 WBC 12.7 {x10E3/uL} (Abnormal) Range: 3.4-10.8 46-Uvy-539250:31 Magnesium (82209) Comments: PATIENT NOT FASTINGPERFORMED BY: [facility]Gqblvw3108 [facility] [id number] Magnesium, Serum 2.0 mg/dL (Normal) Range: 1.6-2.3 10-Uad-553956:31 Renal function Panel (82550) Comments: PATIENT NOT FASTINGPERFORMED BY: [facility]Dmlubv1215 [facility] [id number] Albumin, Serum 4.1 g/dL (Normal) Range: 3.5-5.5 [...] Glucose, Serum 99 mg/dL (Normal) Range: 65-99 0-Mep-949269:16 Lactic Acid Comments: [facility] [place] [facility] Beodxqyvtn8529 [facility] [address] [place], [place], [address] LACTIC ACID 1.2 mmol/L (Normal) Range: 0.4-2.0 05-Aug-20169:52 BNP,B-Type NATRIURETIC PEPTIDE Comments: [facility] [place] [facility] Immzcjrdkb[address] [facility] [place], [place], [address] B-TYPE BRENT PEP 89.7 pg/mL (Normal) Range: 0-100 05-Aug-20169:52 CBC W/Diff, Automated Comments: [facility] Wesjwruhvr7287 [facility] [address] [place], [place], [address] Absolute Lymph 1.12 {X10_3/ul} (Normal) Range: 0.83-4.51 [...] #1, #2, #3, or #4: 1[facility] Xtsrxsnrdi1201 [facility] [place], [place], [address] GAP 5 (Normal) Range: 5-15 CO2 24.0 [...] Serial specimen #1, #2, #3, or #4: [address] [address] [place], [address] TROPONIN-I 0.73 ng/mL (Abnormal) Comments: TROPONIN-I EXPECTED VALUES <0.05 NEGATIVE 0.06 - 0.59 AT RISK OF KS > OR = 0.60 SUGGEST KS :43 Base Excess ISTAT Comments: [place] [address] [place] [address] BE ISTAT 1 mmol/L (Normal) :43 Bicarbonate ISTAT Comments: [place] [address] [place], [place] [address] HCO3 ISTAT 26 mmol/L (Normal) Range: 22-26 Comments: Site = R RadialDevice = Vent MaskFIO2 = 40Results To = ED MDTime Given = 949 :43 Blood Gas Specimen Type Comments: [place] [address] [place] [address] BLD GAS TYPE ART (Normal) :43 pCO2 - ISTAT 40.0 {mmHg} (Normal) Comments: [place] [address] [place] [address] Range: 35-45 :43 pH - I-STAT 7.42 (Normal) Comments: [place] [address] [place] [address] Range: 7.35-7.45 :43 PO2 I-STAT 68 {mmHG} (Abnormal) Comments: [place] [address] [place] [address] Range: 75-100 :43 SO2 ISTAT 94 % (Abnormal) Comments: [place] [address] [place] [address] Range: 95-99 :43 Total Carbon Dioxide ISTAT Comments: [place] [address] [place] [address] TOTAL CO2 ISTAT 27 mmol/L (Normal) 78-Ueh-282913:06 CBC W/Diff, Automated Comments: [address] [place], [address] Absolute Lymph 1.60 {X10_3/ul} (Normal) Range: [...] 4.2-5.4 WBC 6.3 K/mm3 (Normal) Range: 4.4-11.0 84-Otw-662927:06 Comprehensive Metabolic Profil Comments: [facility] [address]av[address] [place], [address] GAP 5 (Normal) Range: 5-15 CO2 30.0 [...] 7-18 GLU 102 mg/dL (Normal) Range: 70-110 62-Ojr-661926:30 PAP I-G w/rfx hrHPV Comments: CYTOLOGY INFORMATION:- CLINICAL INFORMATION:- DATE LMP/MENOPAUSE: MENOPAUSE- COLLECTION VIAL: Thin Prep Vial- CLIENT COORDINATOR SOURCE: CERVICAL/ENDOCERVICAL- COLLECTION TECHNIQUE: BRUSH/SPATULACYTOLOGY INFORMATION :- CLINICAL INFORMATION:- DATE LMP/MENOPAUSE: MENOPAUSE- COLLECTION VIAL: Thin Prep Vial- CLIENT COORDINATOR SOURCE: CERVICAL/ENDOCERVICAL- COLLECTION TECHNIQUE: BRUSH/SPATULASpecimen Comment: [id number] imen Comment: No. of containers..01 CYTYC Thin Prep VialLabCorp (refer to report for specific site)refer to report for address and phone number HPV RFLX Comment (Normal) Comments: The HPV DNA reflex criteria were not met with this specimenresult therefore, no HPV testing was performed.Performed at: [address] [id number] Director: Selene Munoz MD, Phone: [phone] PAPSMR Comment (Normal) Comments: The Pap smear [...] system. PERFORM Comment (Normal) Comments: Dioni Pereira, Refrigerated National Truck Driver (ASCP) ADEQ Comment (Normal) Comments: Satisfactory for evaluation. Endocervical and/or squamous metaplasticcells (endocervical component) are present. DIAGN Comment (Normal) Comments: NEGATIVE FOR INTRAEPITHELIAL LESION AND MALIGNANCY. 31-Fqc-927800:09 CBC W/Diff, Automated Comments: [facility] [address]mbhq[address] [place], [place], [address] Absolute Lymph 1.61 {X10_3/ul} (Normal) Range: 0.83-4.51 [...] 4.2-5.4 WBC 7.3 K/mm3 (Normal) Range: 4.4-11.0 36-Frn-606719:09 Comprehensive Metabolic Profil Comments: [facility] [address]wn[address]ytvhb[address] [place], [place], [address] GAP 8 (Normal) Range: 5-15 CO2 30.0 [...] 7-18 GLU 90 mg/dL (Normal) Range: 70-110 51-Dhf-162140:09 Lipid Profile Comments: [facility] [address]fxq[address] [place], [place], [address] VLDL 11 mg/dL (Normal) Range: 5-40 LDL [...] 200-240 mg/dL Borderline >240 mg/dL High Risk 21-Nnp-719480:56 Ferritin (69090) Comments: PATIENT NOT FASTINGPERFORMED BY: [facility] Mqnlqn1647 [facility] [id number] Information: NURSE DRAW Ferritin, Serum 35 ng/mL (Normal) Range: 15-150 97-Gfi-957315:06 Lipid Profile Comments: [facility] [address] [place], [place], [address] VLDL 14 mg/dL (Normal) Range: 5-40 LDL [...] 200-240 mg/dL Borderline >240 mg/dL High Risk 73-Oac-234639:11 CBC W/Diff, Automated Comments: [facility] [facility] Nipzyrhgvq0917 [facility] [place], [place], [address] Absolute Lymph 1.06 {X10_3/ul} (Normal) Range: 0.83-4.51 [...] 4.2-5.4 WBC 9.4 K/mm3 (Normal) Range: 4.4-11.0 15-Yis-664874:11 Comprehensive Metabolic Profil Comments: [facility] [place] [facility] [address] [place], [address] GAP 9 (Normal) Range: 5-15 CO2 29.0 [...] 7-18 GLU 100 mg/dL (Normal) Range: 70-110 80-Vfr-590828:59 CBC W/Diff, Automated Comments: [facility] Qkcomteytg60[address] [place], [place], [address] Absolute Lymph 1.33 {X10_3/ul} (Normal) Range: 0.83-4.51 [...] Range: 4.4-11.0 :59 Comprehensive Metabolic Profil Comments: [facility] [address] [place], [address] GAP 7 (Normal) Range: 5-15 [...] 7-18 GLU 84 mg/dL (Normal) Range: 70-110 6-Lxe-465326:15 CBC W/Diff, Automated Comments: [facility] [address]rs[address] [place], [place], [address] Absolute Lymph 0.51 {X10_3/ul} (Abnormal) Range: 0.83-4.51 [...] 4.2-5.4 WBC 9.8 K/mm3 (Normal) Range: 4.4-11.0 2-Tjm-008316:15 Comprehensive Metabolic Profil Comments: [facility] Fzoibclnmm[address] [place], [place], [address] GAP 3 (Abnormal) Range: 5-15 CO2 28.0 [...] 7-18 GLU 107 mg/dL (Normal) Range: 70-110 2-Uav-240088:15 Quantiferon TB-Gold Comments: [facility] (refer to report [...] go to cdc.gov/tb for further details.Performed at: [address] [id number] Director: Jose L Patel PhD, Phone: [phone] QFT AG - NIL 0 {IU/mL} (Normal) [...] interferon gamma. :43 CBC W/Diff, Automated Comments: [facility] [address]hbkhbb[address] [place], [place], [phone] Absolute Lymph 0.86 {X10_3/ul} (Normal) Range: 0.83-4.51 [...] :43 Comprehensive Metabolic Profil Comments: [facility] [facility] [address]ofihs[address] [place], [place], [address] GAP 9 (Normal) Range: 5-15 CO2 29.0 [...] <126 mg/dLsuggests IMPAIRED HOMEOSTASIS per A.D.A. criteria. 94-Gbf-241789:00 CORTISOL SERUM Comments: [facility] [address]rs[address]vsgh[address] [place], [address] CORTISOL 11.80 ug/dL (Normal) Range: 3.09-22.40 Comments: Adult (AM) 4.30 - 22.40 ug/dL Adult (PM) 3.09 - 16.66 ug/dL 19-Htc-007067:00 DHEA Sulfate Comments: Has Patient had Radioactive Injection for X-ray?: N[facility] (refer to report for specific site)refer to report for address and phone number DHEA SULF 4020 35.6 ug/dL (Abnormal) Range: 41.2-243.7 Comments: Performed at: - [facility]Wwgxze7408 [place], [place] [id number] Director: Jose L Patel PhD, Phone: [phone] 30-Guy-990889:00 Estradiol Comments: [facility] [address]fsix[address] [place], [place], [address] ESTRADIOL 11.4 pg/mL (Normal) Comments: NORMAL REFERENCE [...] SHOULD BE USED TO DETERMINE ESTRADIOL CONCENTRATION. 89-Nfv-949135:00 Free T3 Comments: [facility] Zincyfrvxp34[address] [place], [place], [address] FREE T3 3.1 pg/mL (Normal) Range: 2.18-3.98 92-Pur-990602:00 Hemoglobin A1c Comments: [facility] [facility] Vexjpmbzbi[address] [place], [place], [address] HGB A1C 6.1 % (Normal) Range: 4.2-6.3 88-Lfa-760892:00 Progesterone Level Comments: [facility] [facility] Ryrzesvvbd8773 [address] [place], [place], [address] Progesterone 2.17 ng/mL (Normal) Comments: Progesterone Reference Table: UNITS Female: Follicular 0.15 - 1.40 ng/mL Luteal 3.34 - 25.56 ng/mL Mid-luteal 4.44 - 28.03 ng/mL Postmenopausal 0.0 - 0.73 ng/mL : 1st Trimester 11.22 - 90.00 ng /mL 2nd Trimester 25.55 - 89.40 ng/mL 3rd Trimester 48.40 -422.50 ng/mL 83-Cob-024193:00 T4 Free Direct Comments: [facility] [address]fsxjjb[address] [place], [address] T4 FREE DIRECT 0.80 ng/dL (Normal) Range: 0.76-1.46 05-Jin-542573:00 Testosterone, Serum Total Comments: [facility] Qaywothjjm[address] [place], [address] Testosterone 20 ng/dL (Normal) Range: 14-76 50-Zdw-270067:00 Thyroid Stim Hormone (TSH) Comments: [facility] E[address]ex[address]mgdvz[address] [place], [address] TSH 0.46 {uIU/mL} (Normal) Range: 0.358-3.74 39-Nuk-920694:30 PAP I-G w/rfx hrHPV Comments: CYTOLOGY INFORMATION:- CLINICAL INFORMATION:- DATE LMP/MENOPAUSE: MENOPAUSE- COLLECTION VIAL: Thin Prep Vial- CLIENT COORDINATOR SOURCE: CERVICAL/ENDOCERVICAL- COLLECTION TECHNIQUE: BRUSH/SPATULASpecimen Comment: CO -[id number] Comment: No. of containers..01 CYTYC Thin Prep VialLabCorp (refer to report for specific site)refer to report for address and phone number HPV RFLX Comment (Normal) Comments: The HPV DNA reflex criteria were not met with this specimenresult therefore, no HPV testing was performed.Performed at: [address] [id number] Director: Selene Munoz MD, Phone: [phone] PAPSMR Comment (Normal) Comments: The Pap smear [...] system. PERFORM Comment (Normal) Comments: Luisa Washington, Refrigerated National Truck Driver (ASCP) ADEQ Comment (Normal) Comments: Satisfactory for evaluation. No endocervical component is identified. DIAGN Comment (Normal) Comments: NEGATIVE FOR INTRAEPITHELIAL LESION AND MALIGNANCY. :26 D-Dimer Quantitative (DVT/PE) Comments: [facility] [facility] [address]ogwmw[address] [place], [place], [address] D-DIMER QUANT 0.30 {FEU/ug/m} (Normal) Range: 0.27-0.49 Comments: NORMAL D-Dimer level (<0.50) indicates no DVT or PE. :25 CK-MB Quantitative and Index Comments: 'TROP' Serial specimen #1, #2, #3, or #4: INT'CKMB' Serial Specimen #1, #2 or #3? [address] [place] [address] [address] [place], [place], [address] CKRI 1.3 % (Normal) Range: 0.0-1.4 Comments: RELATIVE INDEX >1.5% IS PRESUMPTIVELY POSITIVE CPKMB 2.2 ng/mL (Normal) Range: 0.0-5.0 Comments: CK-MB and RI Interpretation MB Relative Index Non-AMI <or= 5 NA Indeterminate > 5 <or= 4 AMI > 5 > 4 CPK TOTAL 170 U/L (Normal) Range: 26-192 :25 Troponin I (99337) Comments: 'TROP' Serial specimen #1, #2, #3, or #4: INT'CKMB' Serial Specimen #1, #2 or #3? [address] [place] [address] [address]jftopcvzl9394 [address] [place], [place], [address] TROPONIN-I < 0.02 ng/mL (Normal) Comments: TROPONIN-I EXPECTED VALUES <0.05 NEGATIVE 0.06 - 0.59 AT RISK OF KS > OR = 0.60 SUGGEST KS :13 Urinalysis, Office (32859) UA - LEUKOCYTE ESTERASE Negative (Normal) UA - NITRITE Negative (Normal) URINE UROBILINGN SRAVANI TIMED Normal mg/dL (Normal) UA - PROTEIN Negative mg/dL (Normal) UA - PH 6 (Abnormal) UA - BLOOD Negative (Normal) UA - SPECIFIC GRAVITY 1.020 (Normal) UA - KETONES Negative mg/dL (Normal) UA - BILIRUBIN Negative (Normal) UA - GLUCOSE Negative (Normal) :41 CBC W/Diff, Automated Comments: [facility] [facility] Ouavtnjrnl0936 [address] [place], [place], [address] Absolute Lymph 1.18 {X10_3/ul} (Normal) Range: 0.83-4.51 [...] 4.2-5.4 WBC 8.8 K/mm3 (Normal) Range: 4.4-11.0 69-Urg-782089:41 Comprehensive Metabolic Profil Comments: [facility] Iachtgaprq0920 [address] [place], [place], [address] GAP 9 (Normal) Range: 5-15 CO2 27.0 [...] 7-18 GLU 98 mg/dL (Normal) Range: 70-110 0-Zph-887862:41 CBC W/Diff, Automated Comments: [facility] [facility] Hsnqenljrk[address] [place], [place], [address] Absolute Lymph 1.54 {X10_3/ul} (Normal) Range: 0.83-4.51 [...] 4.2-5.4 WBC 6.6 K/mm3 (Normal) Range: 4.4-11.0 0-Rsj-665236:41 Comprehensive Metabolic Profil Comments: [facility] Wvslglyhzg4714 [place], [place], [address] GAP 7 (Normal) Range: 5-15 CO2 30.0 [...] 7-18 GLU 102 mg/dL (Normal) Range: 70-110 48-Nol-822999:44 CBC W/Diff, Automated Comments: [facility] [facility] [address]qejgojux4[address] [place], [place], [address] Absolute Lymph 3.85 {X10_3/ul} (Normal) Range: 0.83-4.51 [...] 4.2-5.4 WBC 10.7 K/mm3 (Normal) Range: 4.4-11.0 74-Qod-539189:44 Comprehensive Metabolic Profil Comments: ORDERED LIPID,CMPDR.LIOR ORDERED CMP,[facility] [address]fctsusmu17[address] [place], [place], [address] GAP 8 (Normal) Range: 5-15 CO2 29.0 [...] 7-18 GLU 78 mg/dL (Normal) Range: 70-110 56-Eht-422904:44 Lipid Profile Comments: ORDERED LIPID,CMPDRMERA ORDERED CMP,[facility] [address]ysqtaarkg64[address] [place], [place], [address] VLDL 33 mg/dL (Normal) Range: 5-40 LDL [...] 200-240 mg/dL Borderline >240 mg/dL High Risk 5-Hwb-117518:46 CBC W/Diff, Automated Comments: [facility] [place] [facility] Yejxiocwey14[address] [place], [place], [address] Absolute Lymph 1.65 {X10_3/ul} (Normal) Range: 0.83-4.51 [...] :46 Comprehensive Metabolic Profil Comments: [facility] [place] [facility] Kqdsqrszsu[address] [place], [place], [address] GAP 9 (Normal) Range: 5-15 CO2 31.0 [...] criteria. :46 Culture, Sputum Comments: [facility] [place] [facility] Nomdffmpzj52[address] [place], [place], [address] CUSP See Note (Normal) Comments: Gram StainAcceptable Specimen? Yes (<25 Epithelial cells per/lpf) Gram Stain Rare Gram positive rods 3+ Gram positive cocci 3+ White Blood Cells Rare Epithelial cells Resp. CultureMixed normal respiratory roxanne. No Streptococcus pneumoniae, beta-hemolytic Streptococcus or Staphylococcus aureus isolated. 20-Jje-257003:13 CBC W/Diff, Automated Comments: Test performed at:[facility] [place] [facility] Aebghdlank80[address] [place], [place] [address] Absolute Lymph 1.78 {X10_3/ul} (Normal) Range: 0.83-4.51 [...] 4.2-5.4 WBC 5.3 K/mm3 (Normal) Range: 4.4-11.0 14-Poc-493836:13 Comprehensive Metabolic Profil Comments: Test performed at:[facility] [place] [facility] Ifpmhgaxed4150 [address] [place], [place] [address] GAP 7 (Normal) Range: 5-15 CO2 26.0 [...] Comments: Please note revised CREATININE reference range tktcgotpo84/22/2015. BUN 18 mg/dL (Normal) Range: 7-18 GLU 124 mg/dL (Abnormal) Range: 70-110 Comments: Fasting Glucose result from 110 to <126 mg/dLsuggests IMPAIRED HOMEOSTASIS per A.D.A. criteria. 0-Qth-838259:5 ENDOMETRIAL BX/CURETTINGS See Note (Normal) Comments: Test performed at:[facility] [place] [facility] Xkdthubonw11[address] [facility] [place], [place] [address] 4 Comments: Patient: TIN BLACKWOOD : 1960 (53/F) Acct Num: [id number] Phys: Allie Bales MD Unit Num: [id number] Loc: [facility] [place] Specimen: [id number] Received: 11/06/14 - 1230 Spec Type: ENDOM BX/C TISSUES TISSUES: GROSS DESCRIPTION Received is one container labeled with the patient name and designated endometrial curettings. The specimen consists of multiple fragments o f hemorrhagic soft tissue measuring in aggregate 5 x 2 x 0.2 cm. The entire specimen is submitted in two cassettes. / SJ:yi 11/06/14 TC:5 CPT: 82627 HEADER OPERATION: Hysteroscopy, diagnosti c, D AND C PRE-OP DIAGNOSIS: Menorrhagia, thickened endometrium TISSUE SUBMITTED: Endometrial curettings MICROSCOPIC DIAGNOSIS Endometrium, curettings: Secretory endometrium. AM:s l 11/07/14 Signed Michael Frandy 11/07/14 <signature on file> 5-Igu-600284:48 Partial Thromboplast Time Comments: Test performed at:[facility] [place] [facility] [address] [place] [address] PTT 26.6 s (Normal) Range: 24.1-36.2 0-Wlo-239411:48 Prothrombin Time w/INR Comments: Test performed at:[facility] [facility] [address] [place] [address] INR 0.9 (Normal) PROTIME 12.2 s (Normal) Range: 11.7-14.9 3-Ncb-197731:18 ,Urine Comments: Order Date: 11/06/14Has pt arrived? YTest performed at:[facility] [place] [facility] R[address]prqugvla[address] [facility] [place] [address] HCGUQUAL Negative {Negative} (Normal) Comments: Very dilute urine specimens, as indicated by a low specificgravity, may not contain associate sales representative levels of hCG.If is still suspected, a first morning urinespecimen should be collected 48 hours later and tested. :26 Estradiol Comments: Test performed at:[facility] [facility] [address] [place] [address] ESTRADIOL 13.1 pg/mL (Normal) Comments: NORMAL REFERENCE RANGES FEMALE FOLLICULAR 21.4 - 164.8 pg/mL MID-CYCLE PEAK 49.9 - 367.2 pg/mL LUTEAL 40.2 - 259.0 pg/mL POST-MENOPAUSAL ON MHT <11.0 - 462.1 pg/mL NOT ON MHT <11.0 - 58.3 pg/mL MALE <11.0 - 52 .5 pg/mLNEW TEST METHOD AND REFERENCE RANGE SEPTEMBER 22, 2011:26 Free T3 Comments: Test performed at:[facility] [place] [facility] [address]iyeq[address] [place] [address] FREE T3 3.0 pg/mL (Normal) Range: 2.18-3.98 :26 Hemoglobin A1c Comments: Test performed at:[facility] [id number] [place] [address] ; ordered by other doctor HGB A1C 5.7 % (Normal) Range: 4.2-6.3 :26 Progesterone Level Comments: Test performed at:[facility] [id number] [place] [address] Progesterone 0.34 ng/mL (Normal) Comments: Progesterone Reference Table: UNITS Female: Follicular 0.15 - 1.40 ng/mL Luteal 3.34 - 25.56 ng/mL Mid-luteal 4.44 - 28.03 ng/mL Postmenopausal 0.0 - 0.73 ng/mL : 1st Trimester 11.22 - 90.00 ng /mL 2nd Trimester 25.55 - 89.40 ng/mL 3rd Trimester 48.40 -422.50 ng/mL :26 T4 Free Direct Comments: Test performed at:[facility] [id number] [place] [address] T4 FREE DIRECT 0.77 ng/dL (Normal) Range: 0.76-1.46 :26 Testosterone, Serum Total Comments: Test performed at:[facility] [place] [facility] [address] [place] [address] Testosterone 30 ng/dL (Normal) Range: 14-76 Comments: ADDENDA: ordered by Dr. Bales :26 Thyroid Stim Hormone (TSH) Comments: Test performed at:[facility] [place] [facility] [address] [place] [address] TSH 0.84 {uIU/mL} (Normal) Range: 0.358-3.74 5-Viy-328138:03 17-Hydroxypregnenolone, MS Comments: PATIENT NOT FASTINGPERFORMED BY: [employer] [facility] Clnxhv6694 [facility] [id number] BY: ES [employer] Wvfrjdxdyrmjl8158 [facility] [id number] 17 [place] Pregnenolone, 14 ng/dL (Abnormal) Comments: Reference Range:Adults: 53 - 357 Serum, MS hCG,Beta Negative m[iU]/mL Comments: PATIENT NOT FASTINGPERFORMED BY: [employer] [facility] Nvzvuh3823 [facility] [id number] BY: ES [employer] Djvfajpadhldu4555 [facility] [id number] 2:03 Subunit,Qual,Serum (Normal) Prolactin 10.9 ng/mL (Normal) Comments: PATIENT NOT FASTINGPERFORMED BY: [employer] LabParinGenixrp Mojstq7167 [facility] [id number] BY: ES [employer] Iotrtjgyohofl8925 [facility] [id number] 2:03 Range: 4.8-23.3 2-Yiq-651144:03 Prothrombin Time (PT) Comments: PATIENT NOT FASTINGPERFORMED BY: [employer] LabParinGenixrp Jruthg1457 [facility] [id number] BY: ES [employer] Wxxoavkdrudto4860 [facility] [id number] 11Clinical Information: [id number], [id number] Prothrombin Time 10.5 {sec} (Normal) Range: 9.1-12.0 INR 1.0 (Normal) Range: 0.8-1.2 Comments: Reference interval is for non-anticoagulated patients. . Suggested INR therapeutic range for Vitamin K anta gonist therapy: Standard Dose (moderate intensity therapeutic range): 2.0 - 3.0 Higher intensity therapeutic range 2.5 - 3.5 7-Ujt-884789:03 PTT, Activated Comments: PATIENT NOT FASTINGPERFORMED BY: [facility]6370 [facility] [id number] BY: NERISSA Bautista Gunephctkabls7229 [facility] [id number] aPTT 27 {sec} (Normal) Range: 24-33 Comments: This test has not been validated for monitoring unfractionated heparintherapy. aPTT-based therapeutic ranges for unfractionated heparintherapy have not been established. For general guidelines onHeparin monitoring, refer to the [facility] Directory of Services. 5-Hjh-301170:03 Thyroxine (T4) Free, Comments: PATIENT NOT FASTINGPERFORMED BY: [address] [id number] BY: NERISSA Michele [address] [id number] Direct, S T4,Free(Direct) 0.87 ng/dL (Normal) Range: 0.82-1.77 3-Qiu-016671:0 TSH 0.723 {uIU/mL} Comments: PATIENT NOT FASTINGPERFORMED BY: [place] 3645570 [facility] [id number] BY: NERISSA Michele [address] [id number] 3 (Normal) Range: 0.450-4.500 5-Sor-554521:01 CBC W/Diff, Automated Comments: Test performed at:[facility] [place] [facility] [address] [place] [address] Absolute Lymph 1.51 {X10_3/ul} (Normal) [...] 4.2-5.4 WBC 5.7 K/mm3 (Normal) Range: 4.4-11.0 3-Kve-686161:01 Comprehensive Metabolic Profil Comments: Test performed at:[facility] [place] [facility] [address] [place] [address] GAP 7 (Normal) Range: 5-15 CO2 28.0 [...] 7-18 GLU 94 mg/dL (Normal) Range: 70-110 90-Gko-536802:09 Urine Test, Office (34600) Urine Test, Office Negative (Normal) 47-Xph-711407:09 Urinalysis, Office (55856) UA - LEUKOCYTE ESTERASE Negative (Normal) UA - NITRITE Negative (Normal) URINE UROBILINGN SRAVANI TIMED Normal mg/dL (Normal) UA - PROTEIN Negative mg/dL (Normal) UA - PH 6 (Abnormal) UA - BLOOD Negative (Normal) UA - SPECIFIC GRAVITY 1.025 (Normal) UA - KETONES Negative mg/dL (Normal) UA - BILIRUBIN Negative (Normal) UA - GLUCOSE Negative (Normal) 8-Yhn-917765:14 CBC W/Diff, Automated Comments: Test performed at:[facility] [place] [facility] Jfgmlkqtms5501 [place], [place] [address] Absolute Lymph 2.05 {X10_3/ul} (Normal) Range: 0.83-4.51 [...] 4.2-5.4 WBC 8.6 K/mm3 (Normal) Range: 4.4-11.0 5-Asy-873825:14 Comprehensive Metabolic Profil Comments: Test performed at:[facility] [place] [facility] [address] [place], [place] [id number] GAP 2 (Abnormal) Range: 5-15 CO2 32.0 [...] 7-18 GLU 102 mg/dL (Normal) Range: 70-110 76-Kav-146301:18 CBCD ALC 1.55 {X10_3/ul} (Normal) Range: 0.83-4.51 [...] 4.2-5.4 WBC 7.2 K/mm3 (Normal) Range: 4.4-11.0 23-Oel-309539:18 CMP GAP 4 (Abnormal) Range: 5-15 CO2 [...] 7-18 GLU 92 mg/dL (Normal) Range: 70-110 9-Pyk-117972:31 CBCD ALC 1.45 {X10_3/ul} (Normal) Range: 0.83-4.51 [...] 4.2-5.4 WBC 7.6 K/mm3 (Normal) Range: 4.4-11.0 7-Hrv-299541:45 CMP GAP 8 (Normal) Range: 5-15 CO2 [...] Range: 70-110 :50 Blood Glucose , Office (29054) Blood Glucose , Office 143 (Normal) Comments: non-fasting :50 HgA1C , Office (89878) HgA1C , Office 5.8 % (Normal) Range: 4.6 - 7.1 :36 ISIAH Negative (Normal) Comments: Performed at: - [facility] [address] [id number] Director: Ricardo Pace MD, Phone: [phone] CCP < 1 {units} (Normal) Range: 0-19 Comments: Negative <20Weak positive 20 - 39Moderate positive 40 - 59Strong positive >59Performed at: - [facility] [id number] Director: Stepan Hernandez MD, Phone: [phone] :[phone] CRP 3.36 mg/L (Abnormal) Range: 0.0-3.0 [...] (Normal) Range: 0.358-3.74 :46 HgA1C , Office (14445) HgA1C , Office 5.7 % (Normal) Range: 4.6 - 7.1 :46 Blood Glucose , Office (68092) Blood Glucose , Office 106 (Normal) :51 HgA1C , Office (45416) HgA1C , Office 5.8 % (Normal) Range: 4.6 - 7.1 :51 Blood Glucose , Office (15057) Blood Glucose , Office 122 (Normal) Comments: non-fasting :05 HgA1C , Office (40241) HgA1C , Office 5.8 % (Normal) Range: 4.6 - 7.1 :04 Blood Glucose , Office (09181) Blood Glucose , Office 137 (Normal) :25 HgA1C , Office (84856) HgA1C , Office 5.7 % (Normal) Range: 4.6 - 7.1 :25 Blood Glucose , Office (15941) Blood Glucose , Office 96 (Normal) :33 HEPATIC FUNCTION PANEL Comments: PATIENT NOT FASTINGPERFORMED BY: [facility]Qboixa5487 [facility] [id number] (89003) Alkaline Phosphatase, S 46 [iU]/L (Normal) Range: [...] function Panel Comments: PATIENT NOT FASTINGPERFORMED BY: [facility]6370 [facility] [id number] Information: [id number] DRAW FEE 065964 (61457) Albumin, Serum 4.3 g/dL (Normal) Range: 3.5-5.5 [...] Glucose, Serum 105 mg/dL (Abnormal) Range: 65-99 83-Lsf-838172:04 Urinalysis, Office (42126) UA - BILIRUBIN Negative (Normal) UA - BLOOD Negative (Normal) UA - GLUCOSE Negative (Normal) UA - KETONES Negative mg/dL (Normal) UA - LEUKOCYTE ESTERASE Negative (Normal) UA - NITRITE Negative (Normal) UA - PH 6.0 (Normal) UA - PROTEIN Negative mg/dL (Normal) UA - SPECIFIC GRAVITY 1.025 (Normal) URINE UROBILINGN SRAVANI TIMED Normal mg/dL (Normal) 32-Jtr-873487:41 HgA1C , Office (16234) HgA1C , Office 5.9 % (Normal) Range: 4.6 - 7.1 05-May-20111:42 LQDPAP [id number] PAPSMR Comment (Normal) Comments: The Pap smear [...] no HPV testing was performed. .Performed at: [address] [id number] Director: John Echeverria MD, Phone: [phone] COMM . (Normal) DIAGN Comment (Normal) Comments: NEGATIVE FOR INTRAEPITHELIAL LESION AND MALIGNANCY.Satisfactory for evaluation. Endocervical and/or squamous metaplasticcells (endocervical component) are present.Holly Reed, Refrigerated National Truck Driver (ASCP)T his liquid based ThinPrep(R) pap test was screened withthe use of an image guided system. 58-Yhe-711372:20 TSH (52379) Comments: PATIENT WAS FASTINGPERFORMED BY: [facility]6370 [facility] [id number] TSH 2.160 {uIU/mL} (Normal) Range: 0.450-4.500 20-Eyt-882836:20 MICROALBUMIN: CREATININE RATIO Comments: PATIENT WAS FASTINGPERFORMED BY: [facility]6370 [facility] [id number] (66290) AND (75250) Microalb/Creat Ratio 2.3 {mg/g_creat} (Normal) Range: 0.0-30.0 Microalbumin, Urine 1.6 ug/mL (Normal) Range: 0.0-17.0 Creatinine, Urine 70.5 mg/dL (Normal) Range: 15.0-278.0 51-Jsz-801380:20 METABOLIC PANEL, COMPREHENSIVE Comments: PATIENT WAS FASTINGPERFORMED BY: [facility]6370 [facility] [id number] (22432) ALT (SGPT) 19 [iU]/L (Normal) Range: 0-40 [...] Glucose, Serum 109 mg/dL (Abnormal) Range: 65-99 06-Cgb-604151:20 LIPID PANEL (55686) Comments: PATIENT WAS FASTINGPERFORMED BY: [facility] [id number] LDL/HDL Ratio 1.4 {ratio_units} (Normal) Range: 0.0-3.2 LDL Cholesterol Calc 108 mg/dL (Abnormal) Range: 0-99 VLDL Cholesterol Zaria 16 mg/dL (Normal) Range: 5-40 HDL Cholesterol 78 mg/dL (Normal) Comments: According to ATP-III Guidelines, HDL-C >59 mg/dL is considered anegative risk factor for CHD. Cholesterol, Total 202 mg/dL (Abnormal) Range: 100-199 Triglycerides 82 mg/dL (Normal) Range: 0-149 82-Tqa-840581:20 CBC WITH MANUAL DIFF Comments: PATIENT WAS FASTINGPERFORMED BY: [employer]6370 [facility] [id number] Information: ADD [id number] AND DRAW FEE 99 0471 (08856) Immature Grans (Abs) 0.0 {x10E3/uL} (Normal) Range: [...] 3.80-5.10 WBC 5.2 {x10E3/uL} (Normal) Range: 4.0-10.5 98-Csv-995617:05 URINE ALISSON CULTURE-SRAVANI COL Comments: PATIENT NOT FASTINGPERFORMED BY: [facility]CoLos Alamos Medical CenterZblnlr9233 [facility] [id number] Information: SRC:UR [id number] COUNT (54203) Antimicrobial MIHEAD (Normal) Comments: S = Susceptible; [...] Final report (Normal) Culture,Comprehensive :51 Urinalysis, Office (39586) UA - BILIRUBIN Negative (Normal) UA - BLOOD Hemolyzed Trace (Normal) UA - GLUCOSE Negative (Normal) UA - KETONES Negative mg/dL (Normal) UA - LEUKOCYTE ESTERASE Large (Normal) UA - NITRITE Negative (Normal) UA - PH 6.5 (Normal) UA - PROTEIN Negative mg/dL (Normal) UA - SPECIFIC GRAVITY 1.015 (Normal) URINE UROBILINGN SRAVANI TIMED Normal mg/dL (Normal) :53 CBC (Auto) (95160) Comments: PATIENT NOT FASTINGPERFORMED BY: [employer] [facility] [id number] Information: [id number] Platelets 271 {x10E3/uL} (Normal) Range: 140-415 RDW 13.4 % (Normal) Range: 11.7-15.0 MCHC 34.0 g/dL (Normal) Range: 32.0-36.0 MCH 31.0 pg (Normal) Range: 27.0-34.0 Hematocrit 37.9 % (Normal) Range: 34.0-44.0 MCV 91 fL (Normal) Range: 80-98 Hemoglobin 12.9 g/dL (Normal) Range: 11.5-15.0 RBC 4.16 {x10E6/uL} (Normal) Range: 3.80-5.10 WBC 4.7 {x10E3/uL} (Normal) Range: 4.0-10.5 :53 Potassium Serum (70097) Comments: PATIENT NOT FASTINGPERFORMED BY: [facility]Jeff[facility]Uupjuz3743 [facility] [id number] Potassium, Serum 4.9 mmol/L (Normal) Range: 3.5-5.2 [...] Joaquin on 05/31/10 1132 Sign by: Aguilar oJaquin 24-May-2010 OLLIE 42 U/L (Normal) Comments: RESULTS FAXED 05/24/10 2046 CARLOS CAMPOS. 13:17 Range: 25-115 63-Xew-244746:17 CBCD,SMEAR DIFF RED CELL MORPH SeeNote {NORMAL} [...] 4.2-5.4 WBC 3.0 K/mm3 (Abnormal) Range: 4.4-11.0 64-Yda-774128:17 COMP METABOLIC Comments: RESULTS FAXED 05/24/10 1522 [...] 0.6-1.0 GLU 82 mg/dL (Normal) Range: 70-110 01-Lbe-910049:17 LIPASE 124 U/L (Normal) Comments: RESULTS FAXED 05/24/10 1522 CARLOS CAMPOS. Range: 70-290 Comments: Please note:LIPASE revised reference range effective 09. 6-Npd-829641:38 CBCD,SMEAR DIFF RED CELL MORPH SeeNote {NORMAL} [...] 4.2-5.4 WBC 5.3 K/mm3 (Normal) Range: 4.4-11.0 1-Tjn-959845:38 COMP METABOLIC GAP 8 (Normal) Range: 5-15 [...] 0.6-1.0 GLU 86 mg/dL (Normal) Range: 70-110 8-Hgn-378164:38 LIPID LDL 98 mg/dL (Normal) Range: 0-130 [...] Very High > or = 500 mg/dL 7-Stn-378361:38 MICROALB:CRE UR MALB:CREAT 13.5 {mg/g_CRE} (Normal) MICROALBUMIN,UR 5.2 mg/L (Normal) UR CREAT 38.5 mg/dL (Normal) :38 TSH 0.50 {uIU/mL} (Normal) Range: 0.358-3.74 5-Kkh-770814:03 Urinalysis, Office (06939) UA - BILIRUBIN Negative (Normal) UA - BLOOD Hemolyzed Trace (Normal) UA - GLUCOSE Negative (Normal) UA - KETONES Negative mg/dL (Normal) UA - LEUKOCYTE ESTERASE Negative (Normal) UA - NITRITE Negative (Normal) UA - PH 6.5 (Normal) UA - PROTEIN Negative mg/dL (Normal) UA - SPECIFIC GRAVITY 1.020 (Normal) URINE UROBILINGN SRAVANI TIMED Normal mg/dL (Normal) 60-Usj-222416:01 Urinalysis, Office (27657) UA - BILIRUBIN Moderate (Normal) UA - BLOOD Hemolyzed Large (Normal) UA - GLUCOSE Negative (Normal) UA - KETONES Negative mg/dL (Normal) UA - LEUKOCYTE ESTERASE Negative (Normal) UA - NITRITE Negative (Normal) UA - PH 6.0 (Normal) UA - PROTEIN Negative mg/dL (Normal) UA - SPECIFIC GRAVITY 1.010 (Normal) URINE UROBILINGN SRAVANI TIMED Normal mg/dL (Normal) 40-Quw-059881:46 URINE ALISSON CULTURE-IDENTIFICATN Comments: PATIENT NOT FASTINGPERFORMED BY: [facility]6370 [facility] [id number] Information: [id number] (49622) Result 1 NG36 (Normal) Comments: No growth in 36 - 48 hours. Urine Culture,Comprehensive Final report (Normal) : TSH (40644) Comments: PATIENT WAS FASTINGPERFORMED BY: [facility]6370 [facility] [id number] TSH 1.190 {uIU/mL} (Normal) Range: 0.450-4.500 : METABOLIC PANEL, COMPREHENSIVE Comments: PATIENT WAS FASTINGPERFORMED BY: [facility]6370 [facility] [id number] (07111) A/G Ratio 1.7 (Normal) Range: 1.1-2.5 Albumin, [...] Sodium, Serum 139 mmol/L (Normal) Range: 135-145 78-Yce-057764:00 LIPID PANEL (01253) Comments: PATIENT WAS FASTINGPERFORMED BY: [facility] Kxzmmx3489 [facility] [id number] Cholesterol, Total 231 mg/dL (Abnormal) Range: 100-199 HDL Cholesterol 79 mg/dL (Normal) Comments: According to ATP-III Guidelines, HDL-C >59 mg/dL is considered anegative risk factor for CHD. LDL Cholesterol Calc 127 mg/dL (Abnormal) Range: 0-99 LDL/HDL Ratio 1.6 {ratio_units} (Normal) Range: 0.0-3.2 Triglycerides 123 mg/dL (Normal) Range: 0-149 VLDL Cholesterol Zaria 25 mg/dL (Normal) Range: 5-40 04-Kmd-797899:00 CBC WITH MANUAL DIFF (65578) Comments: PATIENT WAS FASTINGClinical Information: [id number] PERFORMED BY: [facility] Grmzxj5052 [facility] [id number] Baso (Absolute) 0.0 {x10E3/uL} (Normal) Range: 0.0-0.2 [...] Comments: Clinical Information: SRC:UR PERFORMED BY: [facility] Oqkzzk6571 [facility] [id number] Result 1 ECV (Normal) Comments: Escherichia coli, [...] S Urine Final report (Normal) Culture,Comprehensiv e 99-Zst-186835:59 Urinalysis, Office (82768) UA - BILIRUBIN Negative (Normal) UA - BLOOD Hemolyzed Moderate (Normal) UA - GLUCOSE Negative (Normal) UA - KETONES Negative mg/dL (Normal) UA - LEUKOCYTE ESTERASE Moderate (Normal) UA - NITRITE Negative (Normal) UA - PH 6.0 (Normal) UA - PROTEIN Negative mg/dL (Normal) UA - SPECIFIC GRAVITY 1.015 (Normal) URINE UROBILINGN SRAVANI TIMED 2 mg/dL (Normal) 04-Krg-859756:54 URINALYSIS W/O MICRO (35445) Comments: PATIENT WAS FASTINGPERFORMED BY: [facility]Jeff[facility]Goblra7860 [facility] [id number] Appearance Clear (Normal) Bilirubin Negative (Normal) Glucose Negative (Normal) Ketones Negative (Normal) Microscopic Examination MICRON (Normal) Comments: Microscopic follows if indicated. Nitrite, Urine Negative (Normal) Occult Blood Negative (Normal) pH 6.5 (Normal) Range: 5.0-7.5 Protein Negative (Normal) Specific [place] 1.012 (Normal) Range: 1.005-1.030 Urine-Color Yellow (Normal) Urobilinogen,Semi-Qn 0.2 mg/dL (Normal) Range: 0.0-1.9 WBC Esterase Negative (Normal) :54 TSH (01010) Comments: PATIENT WAS FASTINGPERFORMED BY: [facility]Jeff[facility])Obswct3471 [facility] [id number] TSH 1.015 {uIU/mL} (Normal) Range: 0.450-4.500 :54 METABOLIC PANEL, COMPREHENSIVE Comments: PATIENT WAS FASTINGPERFORMED BY: Critique^ItKe[place] 6697970 [facility] [id number] (59762) A/G Ratio 1.5 (Normal) Range: 1.1-2.5 Albumin, [...] Serum 113 mg/dL (Abnormal) Range: 65-99 If -Tongan >59 mL/min/1.73 Comments: Note: Persistent reduction for [...] Sodium, Serum 140 mmol/L (Normal) Range: 135-145 87-Vtb-350243:54 LIPID PANEL (58037) Comments: PATIENT WAS FASTINGPERFORMED BY: [facility] [id number] Cholesterol, Total 199 mg/dL (Normal) Range: 100-199 [...] Cholesterol Zaria 26 mg/dL (Normal) Range: 5-40 30-Hsp-287652:54 CBC WITH MANUAL DIFF (15647) Comments: PATIENT WAS FASTINGClinical Information: ADD DRAW FEE [id number] ADD J 40154 PERFORMED BY: [facility] [id number] Baso (Absolute) 0.0 {x10E3/uL} (Normal) Range: 0.0-0.2 [...] change for the pediatric CBC With Differential/Platelet 69-Rid-612096:32 PELVIC (NON-PREG) () Radiology Report See Note (Normal) Comments: Exam Number: [id number] PELVIC ULTRASOUND HISTORYOvarian cyst, left side. COMPARISON [...] Reported By: MANSI SINGER M.D. :42 ISIAH-D [id number] ISIAH-DIRECT 32 U/mL (Normal) Range: 0-99 Comments: [...] Range: 0.2 - 1.0 :42 T3, FREE 83837 2.8 pg/mL (Normal) Range: 2.3-4.2 Comments: Performed At: [address] [id number] :42 T4 FREE,DIRECT 1.0 ng/dL (Normal) Range: 0.89-1.76 :42 TSH 0.54 {uIU/mL} (Normal) Range: 0.34-4.82 :56 MAMM, UILAT DIAG DIGITAL & CAD Radiology Report See Note (Normal) Comments: Exam Number: [id number] MAMMOGRAPHY, RIGHT UNILATERAL DIAGNOSTIC DIGITAL AND CAD [...] mammograms werealso examined with computer-aided detection software ([employer] Reported By: AAORN DE ANDA M.D. :59 MAMM, BILAT SCRN DIGITAL & CAD Radiology Report See Note (Normal) Comments: Exam Number: [id number] BILATERAL SCREENING DIGITAL MAMMOGRAM CLINICAL INFORMATIONScreening. TECHNIQUEBilateral [...] werealso examined with computer- aided detection software ([employer] Reported By: SUSI MACK M.D. :59 PELVIC (NON-PREG) (HP) Radiology Report See Note (Normal) Comments: Exam Number: [id number] TRANSABDOMINAL PELVIC ULTRASOUND CLINICAL STATEMENTLower abdominal pain. [...] Impaired fasting glucose WWV V73.21 (Renamed from [employer]) : *Well Female Maintenance (KF) Indication: WWV V73.21 (Renamed from [employer]) WWV V73.21 (Renamed from [employer]) : Pap/Pelvic/Bimanual/Rectal/Breast Exam was done. Indication: WWV V73.21 (Renamed from [employer]) Dysuria : Water in diet, brief version Indication: Dysuria Dysuria : *UTI treatment Indication: Dysuria Dysuria : *UTI treatment Indication: Dysuria Dysuria : UTI treatment Indication: Dysuria Fatigue : FOLLOW UP IN 2 WEEKS Indication: Fatigue Fatigue : *fatigue education Indication: Fatigue Planned Observations MICROALBUMIN: CREATININE RATIO (37442) AND (66848)Indication: Hypertension On: :52 Request URINALYSIS (40964)Indication: Hypertension On: :52 Request CBC WITH MANUAL DIFF (72609)Indication: Hypertension On: :52 Request Metabolic Panel, Comprehensive (42802)Indication: Hypertension On: :52 Request Anti-TPO Antibody (92314)Indication: Subclinical hyperthyroidism On: 94-Kof-250528:40 Request Comments: check in February T4, FREE (THYROXINE) (49823)Indication: Subclinical hyperthyroidism On: 89-Iau-434873:40 Request Comments: check in February T-3 UPTAKE (27990)Indication: Subclinical hyperthyroidism On: 14-Rkx-442241:40 Request Comments: recheck February TSH (90746)Indication: Subclinical hyperthyroidism On: 81-All-778233:40 Request Comments: recheck February CULTURE, SPUTUM (43361)Indication: COPD with acute exacerbation (Renamed from Acute exacerbation of chronic obstructive airways disease) On: 5-Sgo-379364:45 Request Anti-TPO Antibody (98531)Indication: Abnormal blood chemistry On: :18 Request T3, FREE (TRIDOTHYRONINE) (30823)Indication: Abnormal blood chemistry On: :18 Request T4, FREE (THYROXINE) (39452)Indication: Abnormal blood chemistry On: :18 Request TSH (03665)Indication: Abnormal blood chemistry On: 9-Ojt-201939:18 Request D-Dimer (40199)Indication: Chest pain On: 2-Jgt-526856:49 Request Comments: do all labs stat...zaria to on zaria DrPeter if abnormal CPK MB FRACTION (80194)Indication: Chest pain On: 0-Syc-626309:22 Request CREATINE KINASE TOTAL (39760)Indication: Chest pain On: 6-Vej-308192:22 Request Metabolic Panel, Comprehensive (83572)Indication: Fatigue On: 8-Hza-837539:06 Request CBC, Platelets & Auto Diff (96552)Indication: Immunocompromised On: 9-Xme-478678:03 Request CULTURE, SPUTUM (18614)Indication: Bronchitis, acute On: 3-Vjd-103002:58 Request METABOLIC PANEL, COMPREHENSIVE (43314)Indication: Benign essential hypertension On: 30-Uxv-748146:57 Request LIPID PANEL (86108)Indication: Benign essential hypertension On: 51-Ybz-088831:57 Request T4, FREE (THYROXINE) (24663)Indication: Perimenopausal menorrhagia On: 2-Nji-128897:00 Request TSH (THYROID STIMULATING HORMONE) (60916)Indication: Perimenopausal menorrhagia On: 0-Rmf-437605:59 Request Comments: fax copy all labs to Dr. bales HCG (HUMAN CHORIONIC GONADOTROPIN) (53530)Indication: Perimenopausal menorrhagia On: 6-Aqi-302573:57 Request PTT (ACTIVATED PARTIAL THROMBOPLASTIN TIME) (99676)Indication: Perimenopausal menorrhagia On: 4-Cbg-986776:57 Request PT/INR, Office (62410)Indication: Perimenopausal menorrhagia On: :57 Request 17-HYDROXYPREGNENOLONE (68911)Indication: Perimenopausal menorrhagia On: :57 Request PROLACTIN (57109)Indication: Perimenopausal menorrhagia On: 7-Ijm-686578:57 Request LIPID PANEL (96931)Indication: Benign essential hypertension On: :28 Request CCP ANTIBODY (40780)Indication: Acute rheumatoid arthritis On: : Request SED RATE ERYTHROCYTE (32172)Indication: Acute rheumatoid arthritis On: : Request C-REACTIVE PROTEIN (76491)Indication: Acute rheumatoid arthritis On: : Request TSH (68018)Indication: Acute rheumatoid arthritis On: :17 Request RHEUMATOID FACTOR-QUANT (75683)Indication: Acute rheumatoid arthritis On: : Request ISIAH (ANTINUCLEAR ANTIBODY) (44956)Indication: Acute rheumatoid arthritis On: :17 Request URINALYSIS, W/ MICRO (38591)Indication: Benign essential hypertension On: : Request METABOLIC PANEL, COMPREHENSIVE (52253)Indication: Benign essential hypertension On: :20 Request LIPID PANEL (54878)Indication: Benign essential hypertension On: :20 Request CBC WITH MANUAL DIFF (91058)Indication: Benign essential hypertension On: : Request URINE ALISSON CULTURE (SRAVANI COL COUNT) (25449)Indication: Hematuria On: 73-Zhl-907936:04 Request METABOLIC PANEL, COMPREHENSIVE (63041)Indication: Nausea and vomiting On: 01-Pvo-065531:02 Request CBC WITH MANUAL DIFF (54775)Indication: Nausea and vomiting On: 57-Fyf-926531:02 Request Lipase (45532)Indication: Nausea and vomiting On: :01 Request Amylase (08948)Indication: Nausea and vomiting On: : Request OVA & PARASITE DIR SMEAR (13360)Indication: Diarrhea On: : Request C.Difficile, Stool (10475)Indication: Diarrhea On: : Request LEUKOCYTE COUNT, FECAL (41822)Indication: Diarrhea On: : Request ALISSON CULTURE-STOOL (71488)Indication: Diarrhea On: : Request TSH (07930)Indication: Depression On: 8-Gfz-257264:10 Request MICROALBUMIN: CREATININE RATIO ([id number]) AND ([id number])Indication: Benign essential hypertension On: 4-Nft-[id number]:10 Request METABOLIC PANEL, COMPREHENSIVE ([id number])Indication: Benign essential hypertension On: :10 Request LIPID PANEL (31301)Indication: Benign essential hypertension On: :09 Request CBC WITH MANUAL DIFF ([id number])Indication: Benign essential hypertension On: 6-Jmx-993319:09 Request URINALYSIS W/O MICRO ([id number])Indication: Benign essential hypertension On: :39 Request MICROALBUMIN URINE QUANT ([id number])Indication: Benign essential hypertension On: :39 Request METABOLIC PANEL, COMPREHENSIVE ([id number])Indication: Benign essential hypertension On: :39 Request LIPID PANEL ([id number])Indication: Benign essential hypertension On: :39 Request ISIAH (ANTINUCLEAR ANTIBODY) (67082)Indication: Fatigue On: :39 Request C-REACTIVE PROTEIN ([id number])Indication: Fatigue On: :39 Request CBC (AUTO) ([id number])Indication: Fatigue On: :39 Request Folate ([id number])Indication: Fatigue On: :39 Request METABOLIC PANEL, COMPREHENSIVE ([id number])Indication: Fatigue On: :39 Request RHEUMATOID FACTOR-QUANT ([id number])Indication: Fatigue On: :39 Request SED RATE ERYTHROCYTE ([id number])Indication: Fatigue On: :39 Request TSH ([id number])Indication: Fatigue On: :39 Request VITAMIN B-12 (CYANOCOBALAMIN) ([id number])Indication: Fatigue On: :39 Request Planned Procedures MRI OF LUMBAR SPINE WITH AND WITHOUT On: 18-Jan-2018 Intent CONTRAST ([id number])By: Shasha Barker MD Comments: rule out cauda equina syndrome, [facility] Shasha Barker MD THYROID SCAN UPTAKE ([id number])By: On: 16-Nov-2017 Intent Shasha Barker MD, MD, [...] ([id number])By: Shasha Barker MD Comments: Lot # [id number] solu medrol given right deltoid by Shasha Suggs lpn, MD Radiology - ChestBy: Mj AL, On: 15-May-2017 Intent Shasha Ba MD Solu- Medrol Injection, 125mg On: 12-May-2017 Intent ([id number])By: Shasha Barker MD, MD, Dana M Aerosol Treatment ([id number])By: Mj On: 12-May-2017 Shasha Cortez MD, MD, Dana M EKG ([id number])By: Shasha Barker MD On: 12-Mar-2017 Intent Shasha [...] MD, Dana M XRAY LEFT SMALL TOE ([id number])By: On: 20-May-2016 Intent Shasha Barker MD, MD, Dana Comments: 5th digit focus on area of pain and get distal metatarsal bone M MAMMOGRAM BREAST BILATERAL SCREENING On: 06-May-2016 Intent DIGITAL ([id number])By: Shasha Barker MD, MD, Dana M DEXA SCAN AXIAL SKELETON ([id number])By: On: 06-May-2016 Intent Shasha Barker MD, MD, Dana M Ultrasound - RenalBy: jM AL, On: 07-Aug-2015 Intent Shasha Ba MD Nuclear Stress Test/Stress On: 08-Jun-2015 Intent SPECT/AdenosineBy: Shasha Barker MD, MD, Dana M Radiology - ChestBy: Chuyita ROSS Ophelia On: 27-Feb-2015 Intent E Radiology - ChestBy: Chuyita ROSS Ophelia On: 05-Feb-2015 Intent E Ultrasound - PelvisBy: Chuyita ROSS, On: 19-Jul-2014 Intent Vero EKG ([id number])By: Shasha Barker MD On: 23-Jun-2013 Intent Shasha Barker MD Comments: see scanned document of test done to see results reviewed today with patient MAMMOGRAM, SCREENING, BOTH BREASTS On: 23-Jun-2013 Intent ([id number])By: Shasha Barker MD, MD, Dana M Eprescribed prescriptions ([id number])By: On: 23-Jun-2013 Intent Shasha Barker MD, MD, Dana M Radiology - Hand - BilateralBy: On: 10-Feb-2013 Intent Shasha Barker MD, MD, Dana Comments: copy to Dr. suslove Whtiten Eprescribed prescriptions ([id number])By: On: 10-Feb-2013 Intent Long CARD FEEDER, Riana L Eprescribed prescriptions ([id number])By: On: 11-Oct-2012 Intent Shasha Barker MD, MD, Dana M EKG ([id number])By: Shasha Barker MD On: 11-Jun-2012 Intent Shasha Barker MD Eprescribed prescriptions ([id number])By: On: 11-Jun-2012 Intent Long CARD FEEDER, Riana L CT - Abdomen & Pelvis (IV Contrast On: 12-Mar-2012 Intent Needed)By: Shasha Barker MD, MD, Dana M MAMMOGRAM, SCREENING, BOTH BREASTS On: 29-Apr-2011 Intent ([id number])By: Shasha Barker MD, MD, Dana M MAMMOGRAM, SCREENING, BOTH BREASTS On: 25-Apr-2011 Intent ([id number])By: Shasha Barker MD, MD, Dana M EKG ([id number])By: JACKIE Bruno On: 26-Aug-2010 Intent Ultrasound - GallbladderBy: Fast DO, On: 27-May-2010 Intent Philomena A Ultrasound - GallbladderBy: Fast DO, On: 24-May-2010 Intent Philomena A Doppler Ultrasound OtherBy: Augustine On: 25-Apr-2010 Intent Jeannette FARAH Comments: L lower extrrem- eval for clot and eval bakers cyst? size ? leaking ? Radiology - ChestBy: Mj AL, On: 23-May-2009 Intent Shasha Ba MD EKG ([id number])By: Shasha Barker MD On: 24-Apr-[address] - Brain/HeadBy: Shasha Barker MD On: 24-Apr-2009 Intent Shasha Gillespie MD EKG ([id number])By: Shasha Barker MD On: 14-Apr-2008 Intent Shasha Barker MD MAMMOGRAM, SCREENING, BOTH BREASTS On: 14-Apr-2008 Intent ([id number])By: Shasha Barker MD, MD, Dana M Ultrasound - PelvisBy: Mj AL, On: 23-Nov-2006 Intent Shasha Barker MD, Shasha Whitten EKG ([id number])By: MILTON ROSS PEGGY On: 10-Aug-2006 Intent Comments: [...] date: (04-07-11).Encounter Diagnosis: WWV V73.21 (Renamed from [facility]) [facility] Office Visit On: [...] (311.), Fatigue (780.79), WWV V73.21 (Renamed from [facility]) [facility] Annotation/Addendum On: 02-Oct-2010 [...] disturbance (368.9), Headache (784.0), Backache, unspecified (724.5), [facility] Office Visit On: [...] left, use cockup splint, see pelligreno in [place]--did ncs 1year ago--show CTS, xray of hand [...]
--- OUTSIDE RECORDS SUMMARY | 2018-05-29 01:16 | XMS RPT_ITS | Continuity of Care Document ---
:1960 Author Organization [facility] Address [address] [place] [address] Phone Care Team Providers Name Role Phone [...] going to see spine surgeon/functional medicine at [facility] Dr Martínez 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 Deliveries [...] ca se this would be the cause. [facility] 2-18 ? aspiration ? imipramine Status: [...] MD, Dana M Start : 03-Nov-2017 Active Comments:-5-13 called to Dannielle -er AmLODIPine Besylate 5 [...] End : 14-Jul-2017 Inactive Comments: d/c per [facility] had fatgiue and GI upset CIPRO, [...] End : 14-Jul-2017 Inactive Comments: d/c per [facility] LEUCOVORIN CALCIUM, 15MG (Oral Tablet) 1 [...] Start : 29-Jan-2010 End : 08-Feb-2010 Inactive [place] 7.5-325 MG Oral Tablet 1 (one) Tablet two times daily for 0 days Quantity: 60 {Tablet} Refills: 0 Ordered:26-Jan-2017 JACKIE Bruno Start : 26-Jan-2017 End : 26-Jan-2017 Inactive [place] 7.5-325 MG Oral Tablet tid prn (7.5-325 [...] Quantity: 360 {Tablet} Refills: 0 Ordered:05-Mar-2015 Slarb BIBLE TEACHER, Ambreen Start : 07-Sep-2014 End : 02-Sep-2015 [...] Quantity: 30 {Tablet} Refills: 3 Ordered:27-Feb-2015 Slarb BIBLE TEACHER, Ambreen Start : 07-Sep-2014 End : 27-Feb-2015 Discontinued LODINE XL, 400MG (Oral Tablet Extended Release 24 Hour) 1 two times daily for 0 days Refills: 0 Ordered:03-Apr-2010 Long BIBLE TEACHERRiana End : 03-Apr-2010 Discontinued Comments:This order discontinued [...] and prednisone seeing Dr. Deangelo vallecillo in [place] next week. 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 not sure iseronegative RA will be on [...] 1.[address] chest in [facility] with radiology at [facility] can they compare for me with [...] immunization against influenza) (Z23, V04.81) Comments: Lot #:[id number] date:9-03-11Loodsn given:0.5mlRoute: IMSite given:L DltdGiven by: Rosita MARMOLEJO [...] inside ?olyp ? adenomyosis. ? endometriosis to cotton grader Status: Inactive as of 15-Mar-2015 Perimenopausal menorrhagia [...] as of 15-Mar-2015 WWV V73.21 (Renamed from [employer]) Comments: scope at 52 recommend but refusing [...] W/WO Cont Result: Comments: See Note; NOTES: [facility] Imaging Services [address] [place] [address] Lower Ext Joint Only W/WO Cont MR#: [id number] Acct: [id number] Name: TIN BLACKWOOD Rep # : [id number] : 1960 F 57 From: Kadie Dailey MD PCP: Shasha Barker MD Status: REG CLI Study: Lower Ext Joint Only W/WO Cont Date of Exam: 02/10/18 Exam# [id number] Ordering Dr: CARLOS SHELBY M.D. STUDY: MRI [...] CC: CARLOS SHELBY M.D.; Shasha Barker MD Telemetry Nurse: Signed 28-Jan-2018 Chest without Contrast Result: Comments: See Note; NOTES: [facility] Imaging Services [address] [place] [address] Chest without Contrast MR#: [id number] Acct: [id number] Name: TIN BLACKWOOD Rep #: [id number] : 1960 F 57 From: Vazquez Kaye MD PCP: Shasha Barker MD Status: REG CLI Study: Chest without Contrast Date of Exam: 01/28/18 Exam# [id number] Ordering Dr: Pelon Chatterjee MD STUDY: CT [...] CC: Shasha Barker MD; Pelon Chatterjee MD Telemetry Nurse: Signed 20-Jan-2018 Emergency Department Summary Result: Comments: See Note; NOTES: [facility] Medical Records Department [address] [place] [address] Emergency Department Summary 01/19/18 1534 MR#: [id number] Acct: [id number] Name: TIN BLACKWOOD Rep #: [id number] : 1960 57 From: Rolando Mc MD [...] Lumbar radiculopathy This note was generated with Dynamight[employer] dictation software. It may contain incorrect words, [...] your Primary Care Provider. Call [facility] ([phone]) or report t o the closest Emergency Room. Call 911 if necessary. 01/20/18 0235 <Electronically signed by Rolando Mc MD> Date Rolando Mc MD Cosigner Signature (If Indicated): Date CC: Shasha Barker MD 19-Jan-2018 Spine Lumbar (Routine) Result: Comments: See Note; NOTES: [facility] Imaging Services [address] [facility] [address] Spine Lumbar (Routine) MR#: [id number] Acct: [id number] Name: TIN BLACKWOOD Rep #: [id number] : 1960 F 57 From: Nabeel Bernabe MD PCP: Shasha Barker MD Status: REG ER Study: Spine Lumbar (Routine) Date of Exam: 01/19/18 Exam# [id number] Ordering Dr: Rolando Mc MD STUDY: MRI [...] , CC: Shasha Barker MD; Rolando Mc Telemetry Nurse: Signed 19-Jan-2018 Spine Lumbar (Routine) Result: Comments: See Note; NOTES: [facility] Imaging Services [address] [place] [address] Spine Lumbar (Routine) MR#: [id number] Acct: [id number] Name: TIN BLACKWOOD Rep #: [id number] : 1960 F 57 From: Nabeel Bernabe MD PCP: Shasha Barker MD Status: REG Study: Spine Lumbar (Routine) Date of Exam: 01/19/18 Exam# [id number] Ordering Dr: Rolando Mc MD STUDY: MRI [...] , CC: Shasha Barker MD; Rolando Mc Telemetry Nurse: Signed 10-Dec-2017 Lower Ext/No Jt/w/o Result: Comments: See Note; NOTES: [facility] Imaging Services [address] [place] [address] Lower Ext/No Jt/w/o MR#: [id number] Acct: [id number] Name: TIN BLACKWOOD Rep #: [id number] : 1960 F 56 From: Julio Cannon MD PCP: Shasha Barker MD Status: REG CLI Study: Lower Ext/No Jt/w/o Date of Exam: 12/10/17 Exam# [id number] Ordering Dr: Nabeel Danielle DPM STUDY: MRI [...] CC: Shasha Barker MD; Nabeel Danielle DPM Telemetry Nurse: Signed 18-Nov-2017 Thyroid Uptake Single or Mult Result: Comments: See Note; NOTES: [facility] Imaging Services [address] [place] [address] Thyroid Uptake Single or Mult MR#: [id number] Acct: [id number] Name: TIN BLACKWOOD Rep #: [id number] : 1960 F 56 From: Asif Pagan DO PCP: Shasha Barker MD Status: REG CLI Study: Thyroid Uptake Single or Mult Date of Exam: 11/18/17 Exam# [id number] Ordering Dr: Shasha Barker MD C LINICAL: [...] to the presence of visualized th yroid cicnfbi-E-sszete thyroid gland. 3. No hypofunctioning, cold nodules are identified. Electronically Signed: Asif Pagan DO at 22:10 EDT Tel , Service support [phone], CC: Shasha Barker MD Telemetry Nurse: Signed 16-Nov-2017 Spine Cervical (Routine) Result: Comments: See Note; NOTES: [facility] Imaging Services [address] [place] [address] Spine Cervical (Routine) MR#: [id number] Acct: [id number] Name: TIN BLACKWOOD Rep #: [id number] : 1960 F 56 From: Andrew Duran DO PCP: Shasha Barker MD Status: REG CLI Study: Spine Cervical (Routine) Date of Exam: 11/16/17 Exam# [id number] Ordering Dr: More Taylor MD STUDY: MRI [...] CC: More Taylor MD; Shasha Barker MD Telemetry Nurse: Signed 03-Nov-2017 Pelvis 1 or 2 Views Result: Comments: See Note; NOTES: [facility] Imaging Services [address] [place] [address] Pelvis 1 or 2 Views MR#: [id number] Acct: [id number] Name: TIN BLACKWOOD Fabby Rep #: [id number] : 1960 F 56 From: Vale Godoy MD PCP: Shasha Barker MD Status: REG CLI Study: Pelvis 1 or 2 Views Date of Exam: 11/03/17 Exam# [id number] Ordering Dr: Shasha Barker MD STUDY: X-RAY [...] at 17:01 EDT Tel , Service support [phone], CC: Shasha Barker MD Telemetry Nurse: Signed 27-Aug-2017 Orb Sella Post Fossa Ear w/o Result: Comments: See Note; NOTES: [facility] Imaging Services [address] [place] [address] Orb Sella Post Fossa Ear w/o MR#: [id number] Acct: [id number] Name: TIN BLACKWOOD Rep #: [id number] : 1960 F 56 From: Nir Dudley MD PCP: Shasha Barker MD Status: REG CLI Study: Orb Sella Post Fossa Ear w/o Date of Exam: 08/27/17 Exam# [id number] Ordering Dr: Dale Zuniga STUDY: CT TEMPORAL [...] CC: Beni Zuniga MD; Shasha Barker MD Telemetry Nurse: Signed 25-May-2017 Chest PA and Lateral Result: Comments: See Note; NOTES: [facility] Imaging Services [address] [place] [address] Chest PA and Lateral MR#: [id number] Acct: [id number] Name: TIN BLACKWOOD Rep #: [id number] : 1960 F 56 From: Aguilar Joaquin MD PCP: Shasha Barker MD Status: REG RCR Study: Chest PA and Lateral Date of Exam: 05/25/17 Exam# [id number] Ordering Dr: Pelon Chatterjee MD STUDY: X-RAY [...] Aguilar Joaquin MD at 19:35 EST Tel [phone], Service support , CC: Shasha Barker MD; Pelon Chatterjee MD Telemetry Nurse: Signed 15-May-2017 Chest PA and Lateral Result: Comments: See Note; NOTES: [facility] Imaging Services [address] [place] [address] Chest PA and Lateral MR#: [id number] Acct: [id number] Name: TIN BLACKWOOD Rep #: [id number] : 1960 F 56 From: Patrice Pinto MD PCP: Shasha Barker MD Status: REG CLI Study: Chest PA and Lateral Date of Exam: 05/15/17 Exam# [id number] Ordering Dr: Shasha Barker MD STUDY: X-RAY [...] Service support , CC: Shasha Barker MD Telemetry Nurse: Signed 21-Jan-2017 Emergency Department Summary Result: Comments: See Note; NOTES: [facility] Medical Records Department [address] [place] [address] Emergency Department Summary 01/20/17 2344 MR#: [id number] Acct: [id number] Name: TIN BLACKWOOD Rep #: [id number] : 1960 56 From: Christian Hemphill PCP: [...] for ED Patient: Disposition: Acute Care Hospital [facility] Chief Complaint: Shortness of Breath Diagnosis: Pulmonary fibro sis, Hypoxemia, Elevated troponin, Pulmonary nodule, right Referrals: Shasha Barker MD [Primary Care Provider] - What to do if you have Problems For any increased pain, shortness of breath, bleedin g, nausea or vomiting, chest pain, or any unexpected problems, contact your Primary Care Provider. Call [facility] ([phone]) or report to the closest Emergency Room. Call 911 if necessary. 01/21/17 0231 <Electronically signed by Christian Hemphill> Date Christian Hemphill Cosigner Signature (If Indicated): Date CC: Shasha Barker MD 21-Jan-2017 CTA Chest W/WO Contrast Result: Comments: See Note; NOTES: [facility] Imaging Services [address] [place] [address] CTA Chest W/WO Contrast MR#: [id number] Acct: [id number] Name: TIN BLACKWOOD Rep #: [id number] : 1960 F 56 From: Stepan Mayberry MD PCP: Shasha Barker MD Status: REG ER Study: CTA Chest W/WO Contrast Date of Exam: 01/21/17 Exam# [id number] Ordering Dr: Christian Schrader DO STUDY: CTA [...] , CC: Shasha Barker MD; Christian Schrader Telemetry Nurse: Signed 20-Jan-2017 Chest PA and Lateral Result: Comments: See Note; NOTES: [facility] Imaging Services [address] [place] [address] Chest PA and Lateral MR#: [id number] Acct: [id number] Name: TIN BLACKWOOD Rep #: [id number] : 1960 F 56 From: Stepan Mayberry MD PCP: Shasha Barker MD Status: REG ER Study: Chest PA and Lateral Date of Exam: 01/20/17 Exam# [id number] Ordering Dr: Christian Schrader DO STUDY: X-RAY [...] , CC: Shasha Barker MD; Christian Schrader Telemetry Nurse: Signed 21-Nov-2016 PT D/C Summary (1) Result: Comments: See Note; NOTES: [facility] [address] [place] [address]. [address] [place] [address] Fax REHABILITATION SERVICES [facility] SUMMARY MR#: [id number] Acct: [id number] Name: TIN BLACKWOOD Rep #: [id number] : 1960 55 From: Yury Lawrence PT, Cert. MDT, OCS Referring DrPeter: Shasha Barker MD Status: REG R Insurance: A LOCATED WITHIN [facility] - PT D/C Summary It [...] please feel free to call me at [phone]. Thank you for the referral of this patient. Sincerely, Yury Lawrence PT, <Electronically signed by Yury Lwarence PT, Cert. MDT, OCS> 11/21/16 1533 CC: Shasha Barker MD MARIN Signed 22-Oct-2016 Inital Evaluation (1) - PT Result: Comments: See Note; NOTES: [facility] [address] [place], [place] [address] Fax REHABILITATION SERVICES INITIAL EVALUATION MR#: [id number] Acct: [id number] Name: TIN BLACKWOOD Rep #: [id number] : 1960 55 From: Yury Lawrence PT, Cert. MDT, OCS Referring Dr.: Shasha Barker MD Status: REG R Insurance: [employer] Patient's Visit Information TIN BLACKWOOD is a [...] to be FAXED BACK to us at [phone] for Medicare purposes. Please let me know [...] and Lateral Result: Comments: See Note; NOTES: [facility] Imaging Services [address] [place] [address] Verdana 4d Chest PA and Lateral MR#: [id number] Acct: [id number] Name: TIN BLACKWOOD Rep #: [id number] : 1960 F 55 From: Hair Rogers MD PCP: Shasha Barker MD Status: REG CLI Study: Chest PA and Lateral Date of Exam: 09/11/16 Exam# [id number] Ordering Dr: Pleon Chatterjee MD STUDY: X-RAY CHEST REASON FOR [...] CC: Shasha Barker MD; Pelon Chatterjee MD Telemetry Nurse: Signed 18-Aug-2016 Foot min 3 Views Result: Comments: See Note; NOTES: [facility] Imaging Services [address] [place] [address] Verdana 4d Foot min 3 Views MR#: [id number] Acct: [id number] Name: TIN BLACKWOOD Rep #: [id number] : 1960 F 55 From: Smith Delaney MD PCP: Shasha Barker MD Status: REG CLI Study: Foot min 3 Views Date of Exam: 08/18/16 Exam# [id number] Ordering Dr: Shasha Barker MD STUDY: X-RAY - [facility]: Female, 55 years old. [...] Service support , CC: Shasha Barker MD Telemetry Nurse: Signed 05-Aug-2016 Chest 1 View (Portable) Result: Comments: See Note; NOTES: [facility] Imaging Services [address] [place] [address] Verdana 4d Chest 1 View (Portable) MR#: [id number] Acct: [id number] Name: TIN BLACKWOOD Rep #: [id number] : 1960 F 55 From: Aguilar Joaquin MD PCP: Shasha Barker MD Status: REG ER Study: Chest 1 View (Portable) Date of Exam: 08/05/16 Exam# [id number] Ordering Dr: Regino Hinson MD STUDY: X-RAY [...] Aguilar Joaquin MD at 9:42 EDT Tel [phone], Service support [phone], CC: Shasha Barker MD; Regino Hinson MD Telemetry Nurse: Signed 01-Jul-2016 Chest WITH Contrast Result: Comments: See Note; NOTES: [facility] Imaging Services [address] [place] [address] Meyna 4d Chest WITH Contrast MR#: [id number] Acct: [id number] Name: TIN BLACKWOOD Rep #: [id number] : 1960 F 55 From: Keyshawn Unger DO PCP: Shasha Barker MD Status: REG CLI Study: Chest WITH Contrast Date of Exam: 07/01/16 Exam# [id number] Ordering Dr: Shasha Barker MD STUDY: CT [...] Service support , CC: Shasha Barker MD Telemetry Nurse: Signed 17-Jun-2016 Spine Cervical (Routine) Result: Comments: See Note; NOTES: [facility] Imaging Services [address] [place] [address] Verdana 4d Spine Cervical (Routine) MR#: [id number] Acct: [id number] Name: TIN BLACKWOOD p #: [id number] : 1960 F 55 From: Kadie Dailey MD PCP: Shasha Barker MD Status: REG CLI Study: Spine Cervical (Routine) Date of Exam: 06/17/16 Exam# [id number] Ordering Dr: More Taylor MD STUD Y: [...] MD at 11:29 EST , Service support [phone], CC: More Taylor MD; Shasha Barker MD Telemetry Nurse: Signed 17-Jun-2016 Spine Thoracic (Routine) Result: Comments: See Note; NOTES: [facility] Imaging Services [address] [place] [address] Verdana 4d Spine Thoracic (Routine) MR#: [id number] Acct: [id number] Name: TIN BLACKWOOD Barbara p #: [id number] : 1960 F 55 From: Kadie Dailey MD PCP: Shasha Barker MD Status: REG CLI Study: Spine Thoracic (Routine) Date of Exam: 06/17/16 Exam# [id number] Ordering Dr: More Taylor MD STUD Y: [...] MD at 11:55 EST , Service support [phone], CC: Ira Taylor MD; Shasha Barker MD Telemetry Nurse: Signed 29-May-2016 Dexa Bone Density Study (HP) Result: Comments: See Note; NOTES: [facility] Imaging Services [address] [place] [address] Verdana 4d Dexa Bone Density Study () MR#: [id number] Acct: [id number] Name: ELISSA BLACKWOOD Rep #: [id number] : 1960 F 55 From: Aguilar Joaquin MD PCP: Shasha Barker MD Status: REG CLI Study: Dexa Bone Density Study () Date of Exam: 05/29/16 Exam# [id number] Ordering Dr: Shasha Barker MD STUDY: DUAL [...] Aguilar Joaquin MD at 13:27 EST Tel [phone], Service support [phone], CC: Shasha Braker MD Telemetry Nurse: Signed 29-May-2016 SCREENING MAMM (CAD), BILAT Result: Comments: See Note; NOTES: [facility] Imaging Services [address] [place] [address] Verdana 4d SCREENING MAMM (CAD), BILAT MR#: [id number] Acct: [id number] Name: TIN BLACKWOOD Rep #: [id number] : 1960 F 55 From: Aguilar Joaquin MD PCP: Shasha Barker MD Status: REG CLI Study: SCREENING MAMM (CAD), BILAT Date of Exam: 05/29/16 Exam# [id number] Ordering Dr: Yoana Barker MD MAMMOGRAPHY - [...] delay biopsy of a clinically suspicious abnormality. [id number] Electronically Signed: Aguilar Joaquin MD at 15:18 EST Tel [phone], Service support [phone], CC: Shasha Barker MD Telemetry Nurse: Signed 29-Nov-2015 NCS and/or EMG Patient Result: Comments: See Note; NOTES: [facility] Pulmonary Services/Neurology [address] [place] [address] NCS and/or EMG Patient MR#: [id number] Acct: [id number] Name: TIN BLACKWOOD Rep #: [id number] : 1960 54 From: Lucas Kiser MD [...] radiculopathy. Lucas hand MD T: [facility] JOB: [id number] 11/29/15 0959 <Electronically signed by Lucas Kiser MD> Date Lucas Kiser MD CC: More Taylor MD; Shasha Barker MD; Lucas Kiser MD Date Dictated: 11/27/15 1145 Date Transcribed: 11/27/15 114 Telemetry Nurse: Signed 12-Oct-2015 Spine Lumbar (Routine) Result: Comments: See Note; NOTES: [facility] Imaging Services [address] [place] [address] Verdana 4d Spine Lumbar (Routine) MR#: [id number] Acct: [id number] Name: TIN BLACKWOOD Rep #: [id number] : 1960 F 54 From: Nabeel Bernabe MD PCP: Shasha Barker MD Status: REG CLI Study: Spine Lumbar (Routine) Date of Exam: 10/12/15 Exam# [id number] Ordering Dr: More Taylor MD STUDY: MRI [...] MD at 20:50 EDT , Service support [phone], CC: More Taylor MD; Shasha Barker MD Telemetry Nurse: Signed 12-Oct-2015 Lumbar Spine 2 or 3 Views Result: Comments: See Note; NOTES: [facility] Imaging Services [address] [place] [address] Verdana 4d Lumbar Spine 2 or 3 Views MR#: [id number] Acct: [id number] Name: TIN LLOYD Rep #: [id number] : 1960 F 54 From: Smtih Delaney MD PCP: Shasha Barker MD Status: REG CLI Study: Lumbar Spine 2 or 3 Views Date of Exam: 10/12/15 Exam# [id number] Ordering Dr: More Watts MD STUDY: X-RAY [...] at 8:27 EDT , Service support [phone], RAD/Lumbar Spine 2 or 3 Views IMPRESSION: Degenerative disc disease at L4-5 and L5-S1 with facet arthrosis. No significant changes since the prior study. Electronically Signed: Smith Delaney MD, FACR at 8:27 EDT , Service support [phone], CC: More Taylor MD; Shasha Barker MD Telemetry Nurse: Signed 12-Oct-2015 Thoracic Spine 3 Views Result: Comments: See Note; NOTES: [facility] Imaging Services [address] [place] [address] Verdana 4d Thoracic Spine 3 Views MR#: [id number] Acct: [id number] Name: TIN BLACKWOOD Rep #: [id number] : 1960 F 54 From: Smith Delaney MD PCP: Shasha Barker MD Status: REG CLI Study: Thoracic Spine 3 Views Date of Exam: 10/12/15 Exam# [id number] Ordering Dr: More Taylor MD STUDY: X-RAY [...] FACR at 8:26 EDT , Service support [phone] RAD/Thoracic Spine 3 Views IMPRESSION : Thoracic spondylosis with multilevel degenerative disc disease Electronically Signed: Smith Delaney MD, FACR at 8:26 EDT , Service support [phone], Fax CC: More Taylor MD; Shasha Barker MD Telemetry Nurse: Signed 03-Oct-2015 Chest PA and Lateral Result: Comments: See Note; NOTES: [facility] Imaging Services [address] [place] [address] Verdana 4d Chest PA and Lateral MR#: [id number] Acct: [id number] Name: Hero BLACKWOOD Rep #: [id number] : 1960 F 54 From: Aguilar Joaquin MD PCP: Shasha Barker MD Status: REG CLI Study: Chest PA and Lateral Date of Exam: 10/03/15 Exam# [id number] Ordering Dr: Hortensia Mcnamara i, MD STUDY: [...] Aguilar Joaquin MD at 12:56 EDT Tel [phone], Service support [phone], RAD/Chest PA and Lateral IMPRESSION: Minimal degree of res idual increased markings at the lung bases as compared to prior study. Electronically Signed: Aguilar Joaquin MD at 12:56 EDT Tel [phone], Service support [phone], Fax CC: Shasha Barker MD; Hortensia Tinajero MD Telemetry Nurse: Signed 05-Sep-2015 Kidney and Bladder Result: Comments: See Note; NOTES: [facility] Imaging Services [address] [place] [address] Verdana 4d Kidney and Bladder MR#: [id number] Acct: [id number] Name: KARINA BLACKWOOD ISMALISSA Rep #: [id number] : 1960 F 54 From: Aguilar Joaquin MD PCP: Shasha Barker MD Status: REG CLI Study: Kidney and Bladder Date of Exam: 09/05/15 Exam# [id number] Ordering Dr: Sacha Barker MD STUDY: RENAL [...] Aguilar Joaquin MD at 10:56 EDT Tel [phone], Service support [phone], CC: Shasha Barker MD Telemetry Nurse: Signed 22-Jun-2015 Nuclear Stress Test - Chemical Result: Comments: See Note; NOTES: [facility] Imaging Services [address] [place] [address] Verda 4d Nuclear Stress Test - Chemical MR#: [id number] Acct: [id number] N miguel: TIN BLACKWOOD Rep #: [id number] : 1960 54 From: Dusty Lund MD [...] Preserved ejection fraction. Dusty Lund MD T: [facility] JOB: [id number] 06/26/15 1259 & #60;Electronically signed by Dusty Lund MD> Date Dusty Lund MD CC: Shasha Barker MD Date Dictated: 06/22/151819 Date Transcribed: 06/22/151819 Telemetry Nurse: Signed 13-Jun-2015 Lumbar Spine 2 or 3 Views Result: Comments: See Note; NOTES: [facility] Imaging Services [address] [place] [address] Verdana 4d Lumbar Spine 2 or 3 Views MR#: [id number] Acct: [id number] Name: TIN LLOYD Rep #: [id number] : 1960 F 54 From: Smith Delaney MD PCP: Shasha Barker MD Status: REG CLI Study: Lumbar Spine 2 or 3 Views Date of Exam: 06/13/15 Exam# [id number] Ordering Dr: More Watts MD STUDY: X-RAY [...] FACR at 11:06 EST , Service support [phone], RAD/Lumbar Spine 2 or 3 Views IM PRESSION: Degenerative disc disease at L4-5 and L5-S1. Electronically Signed: Smith Delaney MD, FACR at 11:06 EST , Service support [phone], CC: More Taylor MD; Shasha Barker MD Telemetry Nurse: Signed 13-Jun-2015 Thoracic Spine 3 Views Result: Comments: See Note; NOTES: [facility] Imaging Services [address] [place] [address] Verdana 4d Thoracic Spine 3 Views MR#: [id number] Acct: [id number] Name: TIN BLACKWOOD Rep #: [id number] : 1960 F 54 From: Smith Delaney MD PCP: Shasha Barker MD Status: REG CLI Study: Thoracic Spine 3 Views Date of Exam: 06/13/15 Exam# [id number] Ordering Dr: More Taylor MD ADDENDUM by Smith Delaney MD on 06/14/15 at 1105 ADDENDUM TECHNIQUE: 3 view(s) o f the thoracic spine were obtained. Electronically Signed: Smith Delaney MD, FACR at 11:05 EST , Service support [phone], 06/14/15 1105 Date cc: More Taylor MD; [...] FACR at 11:05 EST , Service support [phone], RAD/Thoracic S pine 3 Views IMPRESSION: Thoracic spondylosis Electronically Signed: Smith Delaney MD, FACR at 11:05 EST , Service support [phone], CC: More Taylor MD; Shasha Barker MD Telemetry Nurse: Signed 13-Jun-2015 Thoracic Spine 3 Views Result: Comments: See Note; NOTES: [facility] Imaging Services [address] [place] [address] Verdana 4d Thoracic Spine 3 Views MR#: [id number] Acct: [id number] Name: TIN BLACKWOOD Rep #: [id number] : 1960 F 54 From: Smith Delaney MD PCP: Shasha Barker MD Status: REG CLI Study: Thoracic Spine 3 Views Date of Exam: 06/13/15 Exam# [id number] Ordering Dr: More Taylor MD STUDY: X-RAY [...] FACR at 11:05 EST , Service support [phone], RAD/Thoracic Spine 3 Views IMPRESSION: Thoracic spondylosis Electronic ally Signed: Smith Delaney MD, FACR at 11:05 EST , Service support [phone], CC: More Taylor MD; Shasha Barker MD Telemetry Nurse: Signed 08-Jun-2015 EKG ([id number]) Result: [MEASUREMENTS ANALYSIS] Date of Test: 06/08/2015 13:15:12; Heart Rate: 96; MA Interval: 130; QRS: 88; QT Interval: 340; Corrected QT Interval (QTc): 403; P Wave [place]: 48; QRS Wave Modena: 32; T Wave Modena: 36; Blood Pressure: 120/80 [ECG DIAGNOSTIC STATEMENTS] Date of Test: 06/08/2015 13:15:12; Summary: Sinus Rhythm WITHIN NORMAL LIMITS [MEASUREMENTS ANALYSIS] Date of Test: 06/08/2015 13:14:43; Heart Ra te: 97; MA Interval: 126; QRS: 88; QT Interval: 340; Corrected QT Interval (QTc): 404; P Wave Modena: 51; QRS Wave [place]ena: 31; T Wave [place]ena: 40; Blood Pressure: 120/80 [ECG DIAGNOSTIC STATEMENTS] Date of Supriya t: 06/08/2015 13:14:43; Summary: Sinus Rhythm WITHIN NORMAL LIMITS 27-Feb-2015 Chest PA and Lateral Result: Comments: See Note; NOTES: [facility] Imaging Services [address] [place] [address] Verdana 4d Chest PA and Lateral MR#: [id number] Acct: [id number] Name: Hero BLACKWOODVIOLETAngelita Rep #: [id number] : 1960 F 54 From: Aguilar Joaquin MD PCP: Shasha Barker MD Status: REG CLI Study: Chest PA and Lateral Date of Exam: 02/27/15 Exam# [id number] Ordering Dr: Ophelia Boogie STUDY: X-RAY CHEST [...] Aguilar Joaquin MD at 13:45 EDT Tel [phone], Service support [phone], RAD/Chest PA and Lateral IMPRES TABBY: Persistent interstitial disease in keeping with known scarring. Improved aeration of both lungs with residual infiltrate in the peripheral aspect of the right lung. Electronically Signed: Darryl Joaquin MD at 13:45 EDT Tel [phone], Service support [phone], CC: Ophelia Boogie; Shasha Barker MD Telemetry Nurse: Signed 05-Feb-2015 Chest PA and Lateral Result: Comments: See Note; NOTES: [facility] Imaging Services [address] [place] [address] Radiology Report MR#: [id number] Acct: [id number] Name: TIN BLACKWOOD Rep #: [id number] : 1960 F 54 From: Vega Payan MD PCP: Shasha Barker MD Status: REG CLI Study: Chest PA and Lateral Date of Exam: 02/05/15 Exam# [id number] Ordering Dr: Ophelia Boogie STUDY: X-RAY C [...] Vega Payan MD at 17:03 EDT Tel [phone], Service support [phone], [phone] RAD/Chest PA and Lateral IMPRESSION: 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 Recommend followup till clear. Electronically Signed: Vega Payan MD a t 17:03 EDT Tel [phone], Service support [phone], CC: Ophelia Boogie; Shasha Barker MD Telemetry Nurse: Signed 06-Nov-2014 Operative Report Result: Comments: See Note; NOTES: [facility] Medical Records Department [address] [place] [address] Operative Report MR#: [id number] Acct: [id number] Name: TIN BLACKWOOD Rep #: [id number] : 1960 53 From: Allie Bales MD PCP: Shasha Barker MD Status: [facility] DATE OF SERVICE: 11/06/2014 DATE [...] time. Allie Bales MD T: NTS JOB: [id number] 11/06/14 1429 <Electronically signed by Allie Bales MD> Raul e Allie Bales MD CC: Allie Bales MD; Shasha Barker MD Date Dictated: 11/06/14 1231 Date Transcribed: 11/06/14 1231 Telemetry Nurse: Signed 06-Nov-2014 Discharge Instruction Result: Comments: See Note; NOTES: [facility] Medical Records Department [address] [facility] [place] [address] Instructions for Home/Discharge Instructions 11/06/14 1204 MR#: [id number] ct: [id number] Name: TIN BLACKWOOD Rep #: [id number] : 1960 53 From: Allie Bales MD PCP: Shasha Barker MD Status: REG [facility] [place] Discharge Diet: No Restrictions Discharge Activity: Return [...] Operative Report Result: Comments: See Note; NOTES: [facility] Medical Records Department [address] [place] [id number] Operative Report 11/06/14 1202 MR#: [id number] Acct: [id number] Name: TIN BLACKWOOD Rep #: [id number] : 1960 53 From: Allie Bales MD PCP: Shasha Barker MD Status: REG SD Y Location: [place] [address] Operative Report (Blank) Date of Procedure: 11/06/14 Preop: [place] rrhagia, thickened endometrium Postop: Same Procedure: D [...] Transvaginal Non- Result: Comments: See Note; NOTES: [facility] Imaging Services [address] [place] [id number] Ultrasound Report MR#: [id number] Acct: [id number] Name: TIN BLACKWOOD Rep #: [id number] : 1960 F 53 From: Aguilar Joaquin MD PCP: Shasha Barker MD Status: REG CLI Study: Transvaginal Non- Date of Exam: 07/24/14 Exam# [id number] Ordering Dr: Ophelia Boogie STUDY: ULTRASOUND OF [...] Aguilar Joaquin MD at 10:36 EDT Tel [phone], Service support [phone], CC: Ophelia Boogie; Shasha Barker MD Telemetry Nurse: Signed 24-Jul-2014 Pelvic (Non ) Result: Comments: See Note; NOTES: [facility] Imaging Services [address] [place] [address] Ultrasound Report MR#: [id number] Acct: [id number] Name: TIN BLACKWOOD Rep #: [id number] : 1960 F 53 From: Aguilar Joaquin MD PCP: Shasha Barker MD Status: REG CLI Study: Pelvic (Non ) Date of Exam: 07/24/14 Exam# [id number] Ordering Dr: Ophelia Boogie STUDY: ULTR ASOUND [...] Darryl Joaquin MD at 10:36 EDT Tel [phone], Service support [phone], CC: Ophelia Boogie; Shasha Barker MD Telemetry Nurse: Signed 05-Sep-2013 Cerv Spine 4 or 5 Views Result: Comments: See Note; NOTES: [facility] Imaging Services [address] [place] [address] Radiology Report MR#: [id number] Acct: [id number] Name: TIN BLACKWOOD Rep #: [id number] : 1960 F 52 From: Vazquez Kaye MD PCP: Shasha Barker MD Status: REG CLI Study: Cerv Spine 4 or 5 Views Date of Exam: 09/05/13 Exam# [id number] Ordering Dr: More Taylor MD STUDY: X-RAY [...] MD at 14:28 EDT , Service support [phone], RAD/Cerv Spine 4 or 5 Views IMPRESSION: Multilevel degenerative changes, 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 No significant interval change Electronically Signed: Glenn Kaye MD at 14:28 EDT , Service support [phone] , CC: More Taylor MD; Shasha Barker MD Telemetry Nurse: Signed 10-Feb-2013 Hand Min 3 Views Result: Comments: See Note; NOTES: [facility] Imaging Services [address] [place] [address] Radiology Report MR#: [id number] Acct: [id number] Name: TIN BLACKWOOD Rep #: [id number] : 1960 F 52 From: Julio Cannon MD PCP: Status: REG CLI Study: Hand Min 3 Views Date of Exam: 02/10/13 Exam# [id number] Ordering Dr: Shasha Barker MD STUDY: X-RAY [...] February 10, 2013 at 10:35:57 PM EDT [phone] Electronically Signed BP/BP If you are the refe rring physician and would like to consult with the radiologist who provided this interpretation, please contact Julio Cannon M.D. at [phone]. If this radiologist is unavailable, you will [...] of these documents. CC: Shasha Barker MD Telemetry Nurse: Signed 10-Feb-2013 Hand Min 3 Views Result: Comments: See Note; NOTES: [facility] Imaging Services [address] [place] [address] Radiology Report MR#: [id number] Acct: [id number] Name: TIN BLACKWOOD Rep #: [id number] : 1960 F 52 From: Julio Cannon MD PCP: Status: REG CLI Study: Hand Min 3 Views Date of Exam: 02/10/13 Exam# [id number] Ordering Dr: Shasha Barker MD STUDY: X-RAY [...] February 10, 2013 at 10:36:47 PM EDT [phone] Electronically Signed BP/BP If you are the referring physician and would like to consult with the radiologist who provided this interpretation, please contact Julio Cannon M.D. at [phone]. If this radiologist is unavaila ble, you will be directed to another radiologist to assist. If you are a patient with a question regarding this report, please contact your referring physician directly. Professional Interpretatio n Provided By: [employer], Phone , These documents contain legally protected [...] of these documents. 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 No Drug Use 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 Tobacco Use: Current every day smoker. 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 Non Smoker/No Tobacco Use Status: Inactive Tobacco use: Former smoker. Status: Inactive Smoking Status Name Dates Details Current every day smoker Vital Signs Date Test Result Details 3-Daa-741732:44 Temperature 97.6 f Comments: Method: Temporal Pulse [...] 0.00 cm Results Date Description Value Details 94-Gsa-88669:00 Tissue Biopsy See Note (Normal) Comments: [facility] [address] [place], [place], [address] Comments: Patient: TIN BLACKWOOD : 1960 (57/F) Acct Num: [id number] Phys: Jose L Torres DDS Unit Num: [id number] Loc: [facility] Specimen: [id number] Received: 02/19/18 - 1513 Spec Typ e: [...] time of embedding. / JANES:tammy TC:5 CPT: 16123 HEADER OPERATION: Biopsy cheek/lip PRE-OP DIAGNOSIS: Probable fibroma TISSUE SUBMITTED: Biopsy cheek/lip MICROSCOPIC DESCRIPTION Slides are reviewed. MICROSCOPIC DI AGNOSIS Cheek/lip, biopsy: Squamous mucosa with subepithelial fibrosis, consistent with irritation fibroma. SJ:tammy 02/22/18 Signed Jarrod Holland 02/22/18 <signature on file> :19 HgA1C , Office (22526) HgA1C , Office 6.1 % (Normal) Range: 4.6 - 7.1 5-Liu-568517:19 Blood Glucose , Office (36988) Blood Glucose , Office 153 (Normal) :19 Urinalysis, Office (36237) UA - LEUKOCYTE ESTERASE Negative (Normal) UA - NITRITE Negative (Normal) URINE UROBILINGN SRAVANI TIMED Normal mg/dL (Normal) UA - PROTEIN Negative mg/dL (Normal) UA - PH 7 (Normal) UA - BLOOD Negative (Normal) UA - SPECIFIC GRAVITY 1.010 (Normal) UA - KETONES Negative mg/dL (Normal) UA - BILIRUBIN Negative (Normal) UA - GLUCOSE Negative (Normal) 6-Quf-370562:42 CBC-Complete Blood Cnt No Diff Comments: [facility] [address] [place], [address] MPV 9.7 fL (Normal) Range: [...] 4.2-5.4 WBC 8.0 K/mm3 (Normal) Range: 4.4-11.0 3-Zvb-214884:42 Differential Comment Comments: [facility] [address] [place], [address] SMEAR COMMENT SCANNED (Normal) Comments: 1+ ANISOCYTOSIS 0-All-633200:42 Liver Profile Comments: Comments: [facility] [address] [place], [address] D BILI 0.14 mg/dL (Normal) Range: 0.00-0.30 T BILI 0.60 mg/dL (Normal) Range: 0.20-1.00 ALT 49 U/L (Normal) Range: 13-56 ALK P 46 U/L (Normal) Range: 45-117 AST 25 U/L (Normal) Range: 15-37 GLOB 3.4 g/dL (Normal) Range: 2.2-4.2 ALB 3.6 g/dL (Normal) Range: 3.2-5.0 T PROT 7.0 g/dL (Normal) Range: 6.4-8.2 15-Esr-150043:21 CBC-Complete Blood Cnt No Diff Comments: [facility] [address] [facility] [address] [place], [place], [id number] MPV 10.2 fL (Normal) Range: 6.2-12.0 PLT [...] 4.2-5.4 WBC 8.0 K/mm3 (Normal) Range: 4.4-11.0 69-Mbb-902959:21 Liver Profile Comments: [facility] [address] [facility]. [place], [place], [id number] D BILI 0.14 mg/dL (Normal) Range: 0.00-0.30 T BILI 0.80 mg/dL (Normal) Range: 0.20-1.00 ALT 50 U/L (Normal) Range: 13-56 ALK P 42 U/L (Abnormal) Range: 45-117 AST 30 U/L (Normal) Range: 15-37 GLOB 3.6 g/dL (Normal) Range: 2.2-4.2 ALB 4.0 g/dL (Normal) Range: 3.2-5.0 T PROT 7.6 g/dL (Normal) Range: 6.4-8.2 4-Bmv-840233:48 HEPATIC FUNCTION PANEL Comments: PATIENT NOT FASTINGPERFORMED BY: LabCoVirtua MarltonLjpwoz2138 [facility] [id number] (58070) ALT (SGPT) 45 [iU]/L (Abnormal) Range: 0-32 AST (SGOT) 33 [iU]/L (Normal) Range: 0-40 Alkaline Phosphatase 39 [iU]/L (Normal) Range: 39-117 Bilirubin, Direct 0.08 mg/dL (Normal) Range: 0.00-0.40 Bilirubin, Total 0.3 mg/dL (Normal) Range: 0.0-1.2 Protein, Total 6.8 g/dL (Normal) Range: 6.0-8.5 :48 T3, FREE (TRIDOTHYRONINE) (41050) Comments: PATIENT NOT FASTINGPERFORMED BY: [facility] EntertainmentVirt[facility] MarltonMcgcpq7630 [facility] [id number] Triiodothyronine (T3), Free 2.6 pg/mL (Normal) Range: 2.0-4.4 :48 T4, FREE (THYROXINE) (60033) Comments: PATIENT NOT FASTINGPERFORMED BY: [facility]6370 [facility] [id number] T4,Free(Direct) 0.90 ng/dL (Normal) Range: 0.82-1.77 :48 TSH (69383) Comments: PATIENT NOT FASTINGPERFORMED BY: [facility]6370 [facility] [id number] TSH 0.333 {uIU/mL} (Abnormal) Range: 0.450-4.500 :48 Renal function Panel (21352) Comments: PATIENT NOT FASTINGPERFORMED BY: [facility] EntertainmentVirtua MarltonVdbphq2404 [facility] [id number] Albumin 4.6 g/dL (Normal) Range: 3.5-5.5 Phosphorus [...] 6-24 Glucose 118 mg/dL (Abnormal) Range: 65-99 31-Mnl-848085:54 CBC-Complete Blood Cnt No Diff Comments: [facility] [address] [facility] [address] [place], [place], [id number] MPV 10.3 fL (Normal) Range: 6.2-12.0 PLT [...] 4.2-5.4 WBC 7.3 K/mm3 (Normal) Range: 4.4-11.0 65-Dly-483049:54 Liver Profile Comments: [facility] [address] [place], [place], [phone] D BILI 0.09 mg/dL (Normal) Range: 0.00-0.30 T BILI 0.40 mg/dL (Normal) Range: 0.20-1.00 ALT 49 U/L (Normal) Range: 13-56 ALK P 58 U/L (Normal) Range: 45-117 AST 22 U/L (Normal) Range: 15-37 GLOB 3.4 g/dL (Normal) Range: 2.2-4.2 ALB 3.9 g/dL (Normal) Range: 3.2-5.0 T PROT 7.3 g/dL (Normal) Range: 6.4-8.2 33-Krn-368232:13 Liver Profile Comments: [facility] [address] [place], [id number] D BILI 0.07 mg/dL (Normal) Range: 0.00-0.30 T BILI 0.40 mg/dL (Normal) Range: 0.20-1.00 ALT 49 U/L (Normal) Range: 13-56 Comments: Please note revised ALT reference range yhjccnlew58/28/2018. ALK P 53 U/L (Normal) Range: 45-117 AST 22 U/L (Normal) Range: 15-37 GLOB 3.3 g/dL (Normal) Range: 2.2-4.2 ALB 4.0 g/dL (Normal) Range: 3.2-5.0 T PROT 7.3 g/dL (Normal) Range: 6.4-8.2 4-Zhy-758961:59 CBC-Complete Blood Cnt No Diff Comments: [facility] [address] [place], [phone] MPV 10.4 fL (Normal) Range: 6.2-12.0 PLT [...] Range: 4.4-11.0 :59 Erythrocyte Sed Rate Comments: [address] [place], [id number] SED RATE 15 mm/h (Normal) Range: 0-30 07-Oeh-148031:22 CBC-Complete Blood Cnt No Diff Comments: [facility] [address] [place], [address] MPV 10.4 fL (Normal) Range: 6.2-12.0 [...] 4.2-5.4 WBC 7.6 K/mm3 (Normal) Range: 4.4-11.0 02-Xfr-363581:22 Liver Profile Comments: Comments: [facility] [address] [place], [address] D BILI 0.12 mg/dL (Normal) Range: 0.00-0.30 T BILI 0.60 mg/dL (Normal) Range: 0.20-1.00 ALT 38 U/L (Normal) Range: 13-56 Comments: Please note revised ALT reference range nqpybsjif35/28/2018. ALK P 53 U/L (Normal) Range: 45-117 AST 31 U/L (Normal) Range: 15-37 GLOB 3.2 g/dL (Normal) Range: 2.2-4.2 ALB 3.7 g/dL (Normal) Range: 3.2-5.0 T PROT 6.9 g/dL (Normal) Range: 6.4-8.2 18-Btu-326939:33 CBC-Complete Blood Cnt No Diff Comments: [facility] [address] [place], [address] MPV 10.7 fL (Normal) Range: 6.2-12.0 [...] 4.2-5.4 WBC 11.5 K/mm3 (Abnormal) Range: 4.4-11.0 71-Zxl-295817:33 Liver Profile Comments: [facility] [address] [place], [place], [phone] D BILI 0.09 mg/dL (Normal) Range: 0.00-0.30 T BILI 0.60 mg/dL (Normal) Range: 0.20-1.00 ALT 33 U/L (Normal) Range: 13-56 Comments: Please note revised ALT reference range /28/2018. ALK P 59 U/L (Normal) Range: 45-117 AST 15 U/L (Normal) Range: 15-37 GLOB 3.7 g/dL (Normal) Range: 2.2-4.2 ALB 3.8 g/dL (Normal) Range: 3.2-5.0 T PROT 7.5 g/dL (Normal) Range: 6.4-8.2 70-Tgc-635860:29 CBC-Complete Blood Cnt No Diff Comments: [facility] [address] [place], [place], [phone] MPV 11.1 fL (Normal) Range: 6.2-12.0 PLT [...] 4.2-5.4 WBC 9.5 K/mm3 (Normal) Range: 4.4-11.0 51-Uff-214434:29 Liver Profile Comments: [facility] [address] [place], [address] D BILI 0.10 mg/dL (Normal) Range: 0.00-0.30 T BILI 0.40 mg/dL (Normal) Range: 0.20-1.00 ALT 29 U/L (Normal) Range: 12-78 ALK P 51 U/L (Normal) Range: 45-117 AST 12 U/L (Abnormal) Range: 15-37 GLOB 3.6 g/dL (Normal) Range: 2.2-4.2 ALB 3.9 g/dL (Normal) Range: 3.4-5.0 Comments: Please note revised Albumin AND Globulin reference rangeeffective 2017. T PROT 7.5 g/dL (Normal) Range: 6.4-8.2 0-Hso-601972:34 Gram Stain w/Sputum Cult Comments: PATIENT NOT FASTINGPERFORMED BY: [employer] [facility] [id number] Information: SRC:SP Rflx Gram Stain Evaluation GSACC (Normal) Comments: This specimen is of good quality and is acceptable for routinebacterial culture. Result 1 GNRF (Normal) Comments: Few gram negative rods.Few gram positive cocciRare gram negative coccobacilli Epithelial Cells Few (Normal) White Blood Cells None seen (Normal) 5-Eif-888910:34 Sputum Culture Comments: PATIENT NOT FASTINGPERFORMED BY: [employer] Qpjqnb8441 [facility] [id number] Result 1 RRF (Normal) Comments: Routine respiratory roxanne Lower Respiratory Culture Final report (Normal) 4-Fgt-636454:12 TSH (03373) Comments: PATIENT NOT FASTINGPERFORMED BY: [facility]6370 [facility] [id number] TSH 0.434 {uIU/mL} (Abnormal) Range: 0.450-4.500 0-Vkr-407971:12 T3, FREE (TRIDOTHYRONINE) (94959) Comments: PATIENT NOT FASTINGPERFORMED BY: [facility]6370 [facility] [id number] Triiodothyronine,Free,Serum 3.0 pg/mL (Normal) Range: 2.0-4.4 :12 T4, FREE (THYROXINE) (29538) Comments: PATIENT NOT FASTINGPERFORMED BY: [facility]6370 [facility] [id number]; review 05/15 T4,Free(Direct) 1.22 ng/dL (Normal) Range: 0.82-1.77 98-Zpu-109253:14 CBC-Complete Blood Cnt No Diff Comments: [facility] [address] [place], [place], [id number] MPV 10.8 fL (Normal) Range: 6.2-12.0 PLT [...] 4.2-5.4 WBC 7.7 K/mm3 (Normal) Range: 4.4-11.0 58-Ahw-837147:14 Liver Profile Comments: [facility] [address] [place], [place], [address] D BILI 0.11 mg/dL (Normal) Range: 0.00-0.30 T BILI 0.60 mg/dL (Normal) Range: 0.20-1.00 ALT 31 U/L (Normal) Range: 12-78 ALK P 51 U/L (Normal) Range: 45-117 AST 22 U/L (Normal) Range: 15-37 GLOB 3.3 g/dL (Normal) Range: 2.2-4.2 ALB 3.7 g/dL (Normal) Range: 3.4-5.0 Comments: Please note revised Albumin AND Globulin reference rangeeffective 2017. T PROT 7.0 g/dL (Normal) Range: 6.4-8.2 5-Hon-681161:36 CBC-Complete Blood Cnt No Diff Comments: [facility] ORDERED TSH,FT4,FT3,AND TPOSTANDING ORDER FROM [facility] CBC AND LIVER.[facility] [address] [facility] [address] [place], [place], [phone] MPV 10.7 fL (Normal) Range: 6.2-12.0 PLT [...] 4.2-5.4 WBC 6.9 K/mm3 (Normal) Range: 4.4-11.0 7-Sin-661846:36 Free T3 Comments: [facility] [address] [place], [place], [phone] FREE T3 2.6 pg/mL (Normal) Range: 2.18-3.98 1-Vie-095580:36 Liver Profile Comments: [facility] [address] [place], [place], [address] D BILI 0.07 mg/dL (Normal) Range: 0.00-0.30 T BILI 0.40 mg/dL (Normal) Range: 0.20-1.00 ALT 32 U/L (Normal) Range: 12-78 ALK P 48 U/L (Normal) Range: 45-117 AST 15 U/L (Normal) Range: 15-37 GLOB 3.2 g/dL (Normal) Range: 2.2-4.2 ALB 3.7 g/dL (Normal) Range: 3.4-5.0 Comments: Please note revised Albumin AND Globulin reference rangeeffective 2017. T PROT 6.9 g/dL (Normal) Range: 6.4-8.2 6-Jhs-165176:36 T4 Free Direct Comments: [facility] [address] [place], [address] T4 FREE DIRECT 0.84 ng/dL (Normal) Range: 0.76-1.46 7-Hpk-144818:36 Thyroid Peroxidase AB Comments: [facility] (refer to report for specific site)refer to report for address and phone number TPO AB 2782 11 {IU/mL} (Normal) Range: 0-34 Comments: Performed at: [address] [id number] Director: Jose L Patel PhD, Phone: [phone] 7-Qwb-935060:36 Thyroid Stim Hormone (TSH) Comments: [facility] [address] [place], [address] TSH 0.36 {uIU/mL} (Normal) Range: 0.358-3.74 80-Dge-654998:03 CBC-Complete Blood Cnt No Diff Comments: [facility] [address] [place], [place], [id number] MPV 10.4 fL (Normal) Range: 6.2-12.0 PLT [...] 4.2-5.4 WBC 9.2 K/mm3 (Normal) Range: 4.4-11.0 94-Nvb-624801:03 Liver Profile Comments: [facility] [address] [place], [place], [address] D BILI 0.11 mg/dL (Normal) Range: 0.00-0.30 T BILI 0.40 mg/dL (Normal) Range: 0.20-1.00 ALT 30 U/L (Normal) Range: 12-78 ALK P 52 U/L (Normal) Range: 45-117 AST 14 U/L (Abnormal) Range: 15-37 GLOB 3.4 g/dL (Normal) Range: 2.2-4.2 ALB 4.1 g/dL (Normal) Range: 3.4-5.0 Comments: Please note revised Albumin AND Globulin reference rangeeffective 2017. T PROT 7.5 g/dL (Normal) Range: 6.4-8.2 20-Qkf-133388:28 CBC-Complete Blood Cnt No Diff Comments: [facility] [address] [place], [place], [address] MPV 11.1 fL (Normal) Range: 6.2-12.0 PLT [...] 4.2-5.4 WBC 8.7 K/mm3 (Normal) Range: 4.4-11.0 50-Cfy-565892:28 Liver Profile Comments: [facility] [address] [place], [place], [address] D BILI 0.13 mg/dL (Normal) Range: 0.00-0.30 T BILI 0.60 mg/dL (Normal) Range: 0.20-1.00 ALT 32 U/L (Normal) Range: 12-78 ALK P 44 U/L (Abnormal) Range: 45-117 AST 13 U/L (Abnormal) Range: 15-37 GLOB 3.2 g/dL (Normal) Range: 2.2-4.2 ALB 3.7 g/dL (Normal) Range: 3.4-5.0 Comments: Please note revised Albumin AND Globulin reference rangeeffective 2017. T PROT 6.9 g/dL (Normal) Range: 6.4-8.2 87-Ats-124172:57 CBC-Complete Blood Cnt No Diff Comments: [facility] [address] [place], [place], [address] MPV 10.9 fL (Normal) Range: 6.2-12.0 PLT [...] 4.2-5.4 WBC 7.8 K/mm3 (Normal) Range: 4.4-11.0 2-Rhz-750504:07 CBC-Complete Blood Cnt No Diff Comments: [facility] [address] [facility] [place], [address] MPV 11.2 fL (Normal) Range: [...] 4.2-5.4 WBC 9.1 K/mm3 (Normal) Range: 4.4-11.0 9-Rae-650986:07 Liver Profile Comments: [facility] [address] [facility] [place], [place], [id number] D BILI 0.09 mg/dL (Normal) Range: 0.00-0.30 T BILI 0.20 mg/dL (Normal) Range: 0.20-1.00 ALT 34 U/L (Normal) Range: 12-78 ALK P 55 U/L (Normal) Range: 45-117 AST 15 U/L (Normal) Range: 15-37 GLOB 3.3 g/dL (Normal) Range: 2.3-3.5 ALB 3.5 g/dL (Normal) Range: 3.4-5.0 T PROT 6.8 g/dL (Normal) Range: 6.4-8.2 96-Fcr-444311:40 URINE ALISSON CULTURE-IDENTIFICATN Comments: PERFORMED BY: [facility] Rlzkqo1221 [facility] [id number] Information: SRC:UR (98748) Antimicrobial MIHEAD (Normal) Comments: S = Susceptible; [...] mL (Abnormal) Urine Final report Culture,Comprehensive (Abnormal) 34-Obg-983575:47 Urinalysis, Office (97350) UA - LEUKOCYTE ESTERASE Small (Normal) UA - NITRITE Negative (Normal) URINE UROBILINGN SRAVANI TIMED Normal mg/dL (Normal) UA - PROTEIN Negative mg/dL (Normal) UA - PH 6 (Abnormal) UA - BLOOD Negative (Normal) UA - SPECIFIC GRAVITY 1.005 (Normal) UA - KETONES Negative mg/dL (Normal) UA - BILIRUBIN Negative (Normal) UA - GLUCOSE Negative (Normal) [id number] Basic Metabolic Profile (BMP) Comments: 'TROP' Serial specimen #1, #2, #3, or #4: 1[facility] [id number] [place], [place], [id number] GAP 10 (Normal) Range: 5-15 CO2 25.0 [...] Range: 70-110 :58 CBC W/Diff, Automated Comments: [facility] [id number], [address] Absolute Lymph 1.13 {X10_3/ul} (Normal) [...] Serial specimen #1, #2, #3, or #4: [facility] [id number] [place], [place], [id number] TROPONIN-I 0.11 ng/mL (Abnormal) Comments: TROPONIN-I EXPECTED VALUES <0.05 NEGATIVE 0.06 - 0.59 AT RISK OF NE > OR = 0.60 SUGGEST NE :56 CBC W/Diff, Automated Comments: [facility] [id number] [place], [place], [id number] Absolute Lymph 1.30 {X10_3/ul} (Normal) Range: 0.83-4.51 [...] Range: 4.4-11.0 :56 Comprehensive Metabolic Profil Comments: [facility] [id number] [place], [place], [id number] GAP 8 (Normal) Range: 5-15 CO2 29.0 [...] <126 mg/dLsuggests IMPAIRED HOMEOSTASIS per A.D.A. criteria. [id number] CBC W/Diff, Automated Comments: [facility] [id number] [place], [place], [id number] Absolute Lymph 1.40 {X10_3/ul} (Normal) Range: 0.83-4.51 [...] 4.2-5.4 WBC 8.8 K/mm3 (Normal) Range: 4.4-11.0 [id number] Comprehensive Metabolic Profil Comments: [facility] [address] [place], [place], [address] GAP 7 (Normal) Range: 5-15 CO2 30.0 [...] 126 mg/dLsuggests DIABETES MELLITUS per A.D.A. criteria. 19-Wou-256176:43 Homocysteine, Plasma (18202) Comments: PATIENT NOT FASTINGPERFORMED BY: luma-id [facility] [id number] Homocyst(e)ine, Plasma 9.3 umol/L (Normal) Range: 0.0-15.0 89-Gth-477042:12 CRP, High Sensitivity Cardiac Comments: [facility] Cstruvihir5222 [facility]. [place], [place], [address] CRP HIGH SENS 1.10 mg/L (Normal) Comments: Low Relative Risk of CVD <1.0 mg/L Average Relative Risk of CVD 1.0 - 3.0 mg/L High Relative Risk of CVD >3.0 mg/L 27-Bwv-855239:12 Erythrocyte Sed Rate Comments: [facility] Zjwvgzbrsf9926 [facility]. [place], [place], [address] SED RATE 24 mm/h (Normal) Range: 0-30 8-Awe-932736:28 CBC WITH MANUAL DIFF (34730) Comments: PATIENT NOT FASTINGPERFORMED BY: [employer] LabCoworksrp Mit[place]ne [facility] [id number] Immature Grans (Abs) 0.0 {x10E3/uL} (Normal) Range: [...] 3.77-5.28 WBC 7.3 {x10E3/uL} (Normal) Range: 3.4-10.8 3-Hsw-834025:28 Metabolic Panel, Basic Comments: PATIENT NOT FASTINGPERFORMED BY: [facility] Bkhgcd4377 [facility] [id number]; will review at 09/04 appt (25883) Calcium, Serum 9.4 mg/dL (Normal) Range: 8.7-10.2 [...] Glucose, Serum 107 mg/dL (Abnormal) Range: 65-99 52-Sjv-913501:31 CBC With Differential/Platelet Comments: PATIENT NOT FASTINGPERFORMED BY: NILE [employer] [facility] [id number] Immature Grans (Abs) 0.0 {x10E3/uL} Range: 0.0-0.1 [...] (Normal) Comments: PATIENT NOT FASTINGPERFORMED BY: [facility] Matchfundblin [place] [id number] 13:31 Comments: WRITTEN AUTHORIZATION RECEIVED.AUTHORIZATION RECEIVED FROM JACKIE BRUNO LPN [id number] BY RADHA EMMANUEL 48-Xpi-659492:31 CBC (Auto) (18678) Comments: PATIENT NOT FASTINGPERFORMED BY: [facility]6370 [facility] [id number] Platelets 416 {x10E3/uL} (Abnormal) Range: 150-379 RDW 17.2 % (Abnormal) Range: 12.3-15.4 MCHC 32.4 g/dL (Normal) Range: 31.5-35.7 MCH 27.0 pg (Normal) Range: 26.6-33.0 MCV 83 fL (Normal) Range: 79-97 Hematocrit 36.7 % (Normal) Range: 34.0-46.6 Hemoglobin 11.9 g/dL (Normal) Range: 11.1-15.9 RBC 4.40 {x10E6/uL} (Normal) Range: 3.77-5.28 WBC 12.7 {x10E3/uL} (Abnormal) Range: 3.4-10.8 54-Ncd-542752:31 Magnesium (83214) Comments: PATIENT NOT FASTINGPERFORMED BY: [facility]6370 [facility] [id number] Magnesium, Serum 2.0 mg/dL (Normal) Range: 1.6-2.3 80-Gew-331672:31 Renal function Panel (32963) Comments: PATIENT NOT FASTINGPERFORMED BY: LabCoVirtua MarltonUxhszv4699 [facility] [id number] Albumin, Serum 4.1 g/dL (Normal) Range: 3.5-5.5 [...] Glucose, Serum 99 mg/dL (Normal) Range: 65-99 2-Nts-741427:16 Lactic Acid Comments: [facility] [address] [place], [place], [address] LACTIC ACID 1.2 mmol/L (Normal) Range: 0.4-2.0 :52 BNP,B-Type NATRIURETIC PEPTIDE Comments: [facility] [address] [place], [place], [address] B-TYPE BRENT PEP 89.7 pg/mL (Normal) Range: 0-100 :52 CBC W/Diff, Automated Comments: [facility] [address] [place], [place], [address] Absolute Lymph 1.12 {X10_3/ul} (Normal) Range: 0.83-4.51 [...] Serial specimen #1, #2, #3, or #4: 1[facility] [address]bxteo[address] [place], [place], [address] GAP 5 (Normal) Range: 5-15 CO2 24.0 [...] Serial specimen #1, #2, #3, or #4: [address]am[place] [address] [place], [address] TROPONIN-I 0.73 ng/mL (Abnormal) Comments: TROPONIN-I EXPECTED VALUES <0.05 NEGATIVE 0.06 - 0.59 AT RISK OF NE > OR = 0.60 SUGGEST NE :43 Base Excess ISTAT Comments: [place] [address] [place] [address] BE ISTAT 1 mmol/L (Normal) :43 Bicarbonate ISTAT Comments: [place] [address] [place] [address] HCO3 ISTAT 26 mmol/L (Normal) Range: 22-26 Comments: Site = R RadialDevice = Vent MaskFIO2 = 40Results To = ED MDTime Given = 949 :43 Blood Gas Specimen Type Comments: [place] [address] [place] [address] BLD GAS TYPE ART (Normal) :43 pCO2 - ISTAT 40.0 {mmHg} (Normal) Comments: [place] [address] [address] Range: 35-45 :43 pH - I-STAT 7.42 (Normal) Comments: [place] [address] [place] [address] Range: 7.35-7.45 :43 PO2 I-STAT 68 {mmHG} (Abnormal) Comments: [facility] LaboratoryPoint [place] [address] [place] [address] Range: 75-100 :43 SO2 ISTAT 94 % (Abnormal) Comments: [place] [address] [place] [address] Range: 95-99 :43 Total Carbon Dioxide ISTAT Comments: [place] [address] [place] [id number] TOTAL CO2 ISTAT 27 mmol/L (Normal) :06 CBC W/Diff, Automated Comments: [place] [address] [place], [address] Absolute Lymph 1.60 {X10_3/ul} (Normal) Range: [...] 4.2-5.4 WBC 6.3 K/mm3 (Normal) Range: 4.4-11.0 99-Vmw-946449:06 Comprehensive Metabolic Profil Comments: [facility] [address] [place], [place], [address] GAP 5 (Normal) Range: 5-15 CO2 30.0 [...] 7-18 GLU 102 mg/dL (Normal) Range: 70-110 73-Phh-987018:30 PAP I-G w/rfx hrHPV Comments: CYTOLOGY INFORMATION:- CLINICAL INFORMATION:- DATE LMP/MENOPAUSE: MENOPAUSE- COLLECTION VIAL: Thin Prep Vial- PHYSICIAN REPRESENTATIVE SOURCE: CERVICAL/ENDOCERVICAL- COLLECTION TECHNIQUE: BRUSH/SPATULACYTOLOGY INFORMATION :- CLINICAL INFORMATION:- DATE LMP/MENOPAUSE: MENOPAUSE- COLLECTION VIAL: Thin Prep Vial- PHYSICIAN REPRESENTATIVE SOURCE: CERVICAL/ENDOCERVICAL- COLLECTION TECHNIQUE: BRUSH/SPATULASpecimen Comment: [id number] imen Comment: No. of containers..01 CYTYC Thin Prep VialLabCorp (refer to report for specific site)refer to report for address and phone number HPV RFLX Comment (Normal) Comments: The HPV DNA reflex criteria were not met with this specimenresult therefore, no HPV testing was performed.Performed at: [address] [id number] Director: Selene Munoz MD, Phone: [phone] PAPSMR Comment (Normal) Comments: The Pap smear [...] system. PERFORM Comment (Normal) Comments: Dioni Pereira, Submarine Operator (ASCP) ADEQ Comment (Normal) Comments: Satisfactory for evaluation. Endocervical and/or squamous metaplasticcells (endocervical component) are present. DIAGN Comment (Normal) Comments: NEGATIVE FOR INTRAEPITHELIAL LESION AND MALIGNANCY. 59-Eji-335742:09 CBC W/Diff, Automated Comments: [facility] [address] [place], [place], [address] Absolute Lymph 1.61 {X10_3/ul} (Normal) Range: 0.83-4.51 [...] 4.2-5.4 WBC 7.3 K/mm3 (Normal) Range: 4.4-11.0 87-Rrk-403644:09 Comprehensive Metabolic Profil Comments: [facility] [address] [place], [address] GAP 8 (Normal) Range: 5-15 CO2 30.0 [...] 7-18 GLU 90 mg/dL (Normal) Range: 70-110 78-Hrl-880332:09 Lipid Profile Comments: [facility] [address] [place], [address] VLDL 11 mg/dL (Normal) Range: [...] 200-240 mg/dL Borderline >240 mg/dL High Risk 19-Gok-410929:56 Ferritin (92884) Comments: PATIENT NOT FASTINGPERFORMED BY: [facility] Qqzsaa9749 [place] [id number] Information: NURSE DRAW Ferritin, Serum 35 ng/mL (Normal) Range: 15-150 08-Rhf-935367:06 Lipid Profile Comments: [facility] [address]gh[address], [address] VLDL 14 mg/dL (Normal) Range: [...] 200-240 mg/dL Borderline >240 mg/dL High Risk 99-Ndz-147751:11 CBC W/Diff, Automated Comments: [facility] [address]flp[address] [place], [address] Absolute Lymph 1.06 {X10_3/ul} (Normal) Range: 0.83-4.51 [...] 4.2-5.4 WBC 9.4 K/mm3 (Normal) Range: 4.4-11.0 27-Xke-432127:11 Comprehensive Metabolic Profil Comments: [facility] [address] [place], [place], [address] GAP 9 (Normal) Range: 5-15 CO2 29.0 [...] 7-18 GLU 100 mg/dL (Normal) Range: 70-110 48-Rqy-013044:59 CBC W/Diff, Automated Comments: [facility] [address] [place], [address] Absolute Lymph 1.33 {X10_3/ul} (Normal) [...] 4.2-5.4 WBC 3.7 K/mm3 (Abnormal) Range: 4.4-11.0 71-Dqj-110213:59 Comprehensive Metabolic Profil Comments: [facility] [address]sp[address] [place], [address] GAP 7 (Normal) Range: 5-15 [...] 7-18 GLU 84 mg/dL (Normal) Range: 70-110 9-Hcn-933163:15 CBC W/Diff, Automated Comments: [facility] [address]rtt[address] [place], [place], [address] Absolute Lymph 0.51 {X10_3/ul} (Abnormal) Range: 0.83-4.51 [...] 4.2-5.4 WBC 9.8 K/mm3 (Normal) Range: 4.4-11.0 0-Nuu-206475:15 Comprehensive Metabolic Profil Comments: [facility] [address] [place], [place], [address] GAP 3 (Abnormal) Range: 5-15 CO2 28.0 [...] 7-18 GLU 107 mg/dL (Normal) Range: 70-110 0-Aiv-575652:15 Quantiferon TB-Gold Comments: [facility] (refer to report [...] to cdc.gov/tb for further details.Performed at: [address] [id number] Director: Jose L Patel PhD, Phone: [phone] QFT AG - NIL 0 {IU/mL} (Normal) [...] of cells for the productionof interferon gamma. 0-Xrw-228446:43 CBC W/Diff, Automated Comments: [facility] [address] [place], [place], [address] Absolute Lymph 0.86 {X10_3/ul} (Normal) Range: 0.83-4.51 [...] Range: 4.4-11.0 :43 Comprehensive Metabolic Profil Comments: [facility] [address] [place], [place], [address] GAP 9 (Normal) Range: 5-15 CO2 29.0 [...] <126 mg/dLsuggests IMPAIRED HOMEOSTASIS per A.D.A. criteria. 97-Ujk-303747:00 CORTISOL SERUM Comments: [facility] [address]of[address] [facility]. [place], [place], [phone] CORTISOL 11.80 ug/dL (Normal) Range: 3.09-22.40 Comments: Adult (AM) 4.30 - 22.40 ug/dL Adult (PM) 3.09 - 16.66 ug/dL 23-Kjc-164851:00 DHEA Sulfate Comments: Has Patient had Radioactive Injection for X-ray?: N[facility] (refer to report for specific site)refer to report for address and phone number DHEA SULF 9506 35.6 ug/dL (Abnormal) Range: 41.2-243.7 Comments: Performed at: [address] [id number] Director: Jose L Patel PhD, Phone: [phone] 63-Kbk-142197:00 Estradiol Comments: [facility] [address] [place], [place], [address] ESTRADIOL 11.4 pg/mL (Normal) Comments: NORMAL REFERENCE [...] SHOULD BE USED TO DETERMINE ESTRADIOL CONCENTRATION. 17-Yrc-712517:00 Free T3 Comments: [facility] [address] [place], [place], [phone] FREE T3 3.1 pg/mL (Normal) Range: 2.18-3.98 05-Pwt-629601:00 Hemoglobin A1c Comments: [facility] F[address]hpodxx[address] [place], [place], [address] HGB A1C 6.1 % (Normal) Range: 4.2-6.3 07-Lmr-745090:00 Progesterone Level Comments: [facility] [address] [place], [place], [address] Progesterone 2.17 ng/mL (Normal) Comments: Progesterone Reference Table: UNITS Female: Follicular 0.15 - 1.40 ng/mL Luteal 3.34 - 25.56 ng/mL Mid-luteal 4.44 - 28.03 ng/mL Postmenopausal 0.0 - 0.73 ng/mL : 1st Trimester 11.22 - 90.00 ng /mL 2nd Trimester 25.55 - 89.40 ng/mL 3rd Trimester 48.40 -422.50 ng/mL 66-Aqb-862585:00 T4 Free Direct Comments: [facility] [address] [place], [address] T4 FREE DIRECT 0.80 ng/dL (Normal) Range: 0.76-1.46 38-Cnq-627819:00 Testosterone, Serum Total Comments: [facility] [address], [id number] Testosterone 20 ng/dL (Normal) Range: 14-76 32-Ksz-801321:00 Thyroid Stim Hormone (TSH) Comments: [facility] [address] [place], [id number] TSH 0.46 {uIU/mL} (Normal) Range: 0.358-3.74 50-Fjc-076224:30 PAP I-G w/rfx hrHPV Comments: CYTOLOGY INFORMATION:- CLINICAL INFORMATION:- DATE LMP/MENOPAUSE: MENOPAUSE- COLLECTION VIAL: Thin Prep Vial- PHYSICIAN REPRESENTATIVE SOURCE: CERVICAL/ENDOCERVICAL- COLLECTION TECHNIQUE: BRUSH/SPATULASpecimen Comment: [place] -[id number] Comment: No. of containers..01 CYTYC Thin Prep VialLabCorp (refer to report for specific site)refer to report for address and phone number HPV RFLX Comment (Normal) Comments: The HPV DNA reflex criteria were not met with this specimenresult therefore, no HPV testing was performed.Performed at: [address] [id number] Director: Selene Munoz MD, Phone: [phone] PAPSMR Comment (Normal) Comments: The Pap smear [...] system. PERFORM Comment (Normal) Comments: Luisa Washington, Submarine Operator (ASCP) ADEQ Comment (Normal) Comments: Satisfactory for evaluation. No endocervical component is identified. DIAGN Comment (Normal) Comments: NEGATIVE FOR INTRAEPITHELIAL LESION AND MALIGNANCY. 7-Vdz-271500:26 D-Dimer Quantitative (DVT/PE) Comments: [facility] [address] [place], [place], [address] D-DIMER QUANT 0.30 {FEU/ug/m} (Normal) Range: 0.27-0.49 Comments: NORMAL D-Dimer level (<0.50) indicates no DVT or PE. :25 CK-MB Quantitative and Index Comments: 'TROP' Serial specimen #1, #2, #3, or #4: INT'CKMB' Serial Specimen #1, #2 or #3? [address] [place] [address] [address] [place], [place], [address] CKRI 1.3 % (Normal) Range: 0.0-1.4 Comments: RELATIVE INDEX >1.5% IS PRESUMPTIVELY POSITIVE CPKMB 2.2 ng/mL (Normal) Range: 0.0-5.0 Comments: CK-MB and RI Interpretation MB Relative Index Non-AMI <or= 5 NA Indeterminate > 5 <or= 4 AMI > 5 > 4 CPK TOTAL 170 U/L (Normal) Range: 26-192 :25 Troponin I (83923) Comments: 'TROP' Serial specimen #1, #2, #3, or #4: INT'CKMB' Serial Specimen #1, #2 or #3? [address] [place] [address] [address] [place], [place], [address] TROPONIN-I < 0.02 ng/mL (Normal) Comments: TROPONIN-I EXPECTED VALUES <0.05 NEGATIVE 0.06 - 0.59 AT RISK OF NE > OR = 0.60 SUGGEST NE 2-Mkl-382098:13 Urinalysis, Office (35337) UA - LEUKOCYTE ESTERASE Negative (Normal) UA - NITRITE Negative (Normal) URINE UROBILINGN SRAVANI TIMED Normal mg/dL (Normal) UA - PROTEIN Negative mg/dL (Normal) UA - PH 6 (Abnormal) UA - BLOOD Negative (Normal) UA - SPECIFIC GRAVITY 1.020 (Normal) UA - KETONES Negative mg/dL (Normal) UA - BILIRUBIN Negative (Normal) UA - GLUCOSE Negative (Normal) :41 CBC W/Diff, Automated Comments: [facility] [address]fdodc[address] [place], [place], [address] Absolute Lymph 1.18 {X10_3/ul} (Normal) Range: 0.83-4.51 [...] 4.2-5.4 WBC 8.8 K/mm3 (Normal) Range: 4.4-11.0 97-Qjy-747285:41 Comprehensive Metabolic Profil Comments: [facility] [address]eg[address] [place], [place], [address] GAP 9 (Normal) Range: 5-15 CO2 27.0 [...] 7-18 GLU 98 mg/dL (Normal) Range: 70-110 7-Eie-794195:41 CBC W/Diff, Automated Comments: [facility] [address]jg[address] [place], [place], [address] Absolute Lymph 1.54 {X10_3/ul} (Normal) Range: 0.83-4.51 [...] 4.2-5.4 WBC 6.6 K/mm3 (Normal) Range: 4.4-11.0 4-Rfd-811828:41 Comprehensive Metabolic Profil Comments: [facility] [address]ux[address] [place], [place], [address] GAP 7 (Normal) Range: 5-15 CO2 30.0 [...] Range: 70-110 :44 CBC W/Diff, Automated Comments: [facility] [address]radclkm[address] [place], [address] Absolute Lymph 3.85 {X10_3/ul} (Normal) Range: 0.83-4.51 [...] 4.2-5.4 WBC 10.7 K/mm3 (Normal) Range: 4.4-11.0 09-Kzw-794020:44 Comprehensive Metabolic Profil Comments: ORDERED LIPID,CMPDR.LIOR ORDERED CMP,[facility]CCleveland [facility] [address]pbqol[address] [place], [place], [address] GAP 8 (Normal) Range: 5-15 CO2 29.0 [...] 7-18 GLU 78 mg/dL (Normal) Range: 70-110 55-Gsp-399991:44 Lipid Profile Comments: ORDERED LIPID,CMP ORDERED CMP,CBCCleveland [facility] [address]qbrk[address] [place], [place], [address] VLDL 33 mg/dL (Normal) Range: 5-40 LDL [...] 200-240 mg/dL Borderline >240 mg/dL High Risk 6-Wmm-184775:46 CBC W/Diff, Automated Comments: [facility] [address]abs[address] [place], [address] Absolute Lymph 1.65 {X10_3/ul} (Normal) Range: 0.83-4.51 [...] Range: 4.4-11.0 :46 Comprehensive Metabolic Profil Comments: [facility] [address] [place], [place], [address] GAP 9 (Normal) Range: 5-15 CO2 31.0 [...] per A.D.A. criteria. :46 Culture, Sputum Comments: [facility] [address]odfixj[address] [place], [id number] CUSP See Note (Normal) Comments: Gram StainAcceptable Specimen? Yes (<25 Epithelial cells per/lpf) Gram Stain Rare Gram positive rods 3+ Gram positive cocci 3+ White Blood Cells Rare Epithelial cells Resp. CultureMixed normal respiratory roxanne. No Streptococcus pneumoniae, beta-hemolytic Streptococcus or Staphylococcus aureus isolated. :13 CBC W/Diff, Automated Comments: Test performed at:[facility] Kkjouqbuox5650 [facility] [place] [address] Absolute Lymph 1.78 {X10_3/ul} (Normal) [...] 4.2-5.4 WBC 5.3 K/mm3 (Normal) Range: 4.4-11.0 15-Dkm-122638:13 Comprehensive Metabolic Profil Comments: Test performed at:[facility] Efyxvisseb3368 [facility] [place] [address] GAP 7 (Normal) Range: 5-15 [...] Comments: Please note revised CREATININE reference range vafnfpvom69/22/2015. BUN 18 mg/dL (Normal) Range: 7-18 GLU 124 mg/dL (Abnormal) Range: 70-110 Comments: Fasting Glucose result from 110 to <126 mg/dLsuggests IMPAIRED HOMEOSTASIS per A.D.A. criteria. 2-Yrs-331634:5 ENDOMETRIAL BX/CURETTINGS See Note (Normal) Comments: Test performed at:[facility] [address]dgfg[address] [place] [address] 4 Comments: Patient: TIN BLACKWOOD : 1960 (53/F) Acct Num: [id number] Phys: Allie Bales MD Unit Num: [id number] Loc: [facility] [place] Specimen: [id number] Received: 11/06/14 - 0830 Spec Type: ENDOM BX/C TISSUES TISSUES: GROSS DESCRIPTION Received is one container labeled with the patient name and designated endometrial curettings. The specimen consists of multiple fragments o f hemorrhagic soft tissue measuring in aggregate 5 x 2 x 0.2 cm. The entire specimen is submitted in two cassettes. / SJ:sl 11/06/14 TC:5 CPT: 78360 HEADER OPERATION: Hysteroscopy, diagnosti c, D AND C PRE-OP DIAGNOSIS: Menorrhagia, thickened endometrium TISSUE SUBMITTED: Endometrial curettings MICROSCOPIC DIAGNOSIS Endometrium, curettings: Secretory endometrium. AM:s l 11/07/14 Signed Michael Frandy 11/07/14 <signature on file> 0-Yxj-808603:48 Partial Thromboplast Time Comments: Test performed at:[facility] [address] [place] [address] PTT 26.6 s (Normal) Range: 24.1-36.2 6-Syr-084585:48 Prothrombin Time w/INR Comments: Test performed at:[facility] [address] [place] [address] INR 0.9 (Normal) PROTIME 12.2 s (Normal) Range: 11.7-14.9 6-Mqr-056842:18 ,Urine Comments: Order Date: 11/06/14Has pt arrived? YTest performed at:[facility] [address] [place] [address] HCGUQUAL Negative {Negative} (Normal) Comments: Very dilute urine specimens, as indicated by a low specificgravity, may not contain sales and marketing representative levels of hCG.If is still suspected, a first morning urinespecimen should be collected 48 hours later and tested. :26 Estradiol Comments: Test performed at:[facility] [address] [place] [address] ESTRADIOL 13.1 pg/mL (Normal) Comments: NORMAL REFERENCE RANGES FEMALE FOLLICULAR 21.4 - 164.8 pg/mL MID-CYCLE PEAK 49.9 - 367.2 pg/mL LUTEAL 40.2 - 259.0 pg/mL POST-MENOPAUSAL ON MHT <11.0 - 462.1 pg/mL NOT ON MHT <11.0 - 58.3 pg/mL MALE <11.0 - 52 .5 pg/mLNEW TEST METHOD AND REFERENCE RANGE SEPTEMBER 22, 2011:26 Free T3 Comments: Test performed at:[facility] [address]if[address] [place] [address] FREE T3 3.0 pg/mL (Normal) Range: 2.18-3.98 :26 Hemoglobin A1c Comments: Test performed at:[facility] [address]fm[address]fcbrj[address] [place] [address] ; ordered by other doctor HGB A1C 5.7 % (Normal) Range: 4.2-6.3 :26 Progesterone Level Comments: Test performed at:[facility] [address]ubw[address] [place] [address] Progesterone 0.34 ng/mL (Normal) Comments: Progesterone Reference Table: UNITS Female: Follicular 0.15 - 1.40 ng/mL Luteal 3.34 - 25.56 ng/mL Mid-luteal 4.44 - 28.03 ng/mL Postmenopausal 0.0 - 0.73 ng/mL : 1st Trimester 11.22 - 90.00 ng /mL 2nd Trimester 25.55 - 89.40 ng/mL 3rd Trimester 48.40 -422.50 ng/mL :26 T4 Free Direct Comments: Test performed at:[facility] [address]cerphx[address] [place] [address] T4 FREE DIRECT 0.77 ng/dL (Normal) Range: 0.76-1.46 :26 Testosterone, Serum Total Comments: Test performed at:[facility] [address] [place] [address] Testosterone 30 ng/dL (Normal) Range: 14-76 Comments: ADDENDA: ordered by Dr. Bales :26 Thyroid Stim Hormone (TSH) Comments: Test performed at:[facility] [address]xsiwu[address] [place] [address] TSH 0.84 {uIU/mL} (Normal) Range: 0.358-3.74 9-Jhj-914615:03 17-Hydroxypregnenolone, MS Comments: PATIENT NOT FASTINGPERFORMED BY: NILE [employer] Cebteh[address] [place] [id number] BY: ES [employer] Iukseshfjbmmt6139 [facility] [id number] 17 [place] Pregnenolone, 14 ng/dL (Abnormal) Comments: Reference Range:Adults: 53 - 357 Serum, MS hCG,Beta Negative m[iU]/mL Comments: PATIENT NOT FASTINGPERFORMED BY: NexDefenserp Hbexta[address] [facility] [place] [id number] BY: ES [employer] Kallydihcncvk9868 [facility] [id number] 2:03 Subunit,Qual,Serum (Normal) Prolactin 10.9 ng/mL (Normal) Comments: PATIENT NOT FASTINGPERFORMED BY: [employer] LabCoworksrp [address]haa[address] [facility] [place] [id number] BY: ES [employer] Kdhuxlnejuiso1014 [facility] [id number] 2:03 Range: 4.8-23.3 6-Isf-715379:03 Prothrombin Time (PT) Comments: PATIENT NOT FASTINGPERFORMED BY: [employer]erp Zcygnm[address] [facility] [place] [id number] BY: ES EsoterLUMI Mask Fhrnqtlctokfg9231 [facility] [id number] 11Clinical Information: [id number], [id number] Prothrombin Time 10.5 {sec} (Normal) Range: 9.1-12.0 INR 1.0 (Normal) Range: 0.8-1.2 Comments: Reference interval is for non-anticoagulated patients. . Suggested INR therapeutic range for Vitamin K anta gonist therapy: Standard Dose (moderate intensity therapeutic range): 2.0 - 3.0 Higher intensity therapeutic range 2.5 - 3.5 7-Yea-026077:03 PTT, Activated Comments: PATIENT NOT FASTINGPERFORMED BY: [employer] LabCoHitFix Sclsnn[address] [facility] [place] [id number] BY: Adaptive TCR Kezsnekjpekcg7323 [facility] [id number] aPTT 27 {sec} (Normal) Range: 24-33 Comments: This test has not been validated for monitoring unfractionated heparintherapy. aPTT-based therapeutic ranges for unfractionated heparintherapy have not been established. For general guidelines onHeparin monitoring, refer to the [facility] Directory of Services. 2-Sni-800649:03 Thyroxine (T4) Free, Comments: PATIENT NOT FASTINGPERFORMED BY: [place] [id number] [facility] [id number] BY: Plat[address] [id number] Direct, S T4,Free(Direct) 0.87 ng/dL (Normal) Range: 0.82-1.77 2-Che-760259:0 TSH 0.723 {uIU/mL} Comments: PATIENT NOT FASTINGPERFORMED BY: [address] [id number] BY: [place]Ang[place] [id number] [facility] [id number] 3 (Normal) Range: 0.450-4.500 5-Zmn-743008:01 CBC W/Diff, Automated Comments: Test performed at:[facility] [id number] [place] [place], [place] [id number] Absolute Lymph 1.51 {X10_3/ul} (Normal) Range: 0.83-4.51 [...] 4.2-5.4 WBC 5.7 K/mm3 (Normal) Range: 4.4-11.0 6-Hmu-788048:01 Comprehensive Metabolic Profil Comments: Test performed at:[facility] [address]mb[address]ft[address] [place], [place] [id number] GAP 7 (Normal) Range: 5-15 CO2 28.0 [...] 7-18 GLU 94 mg/dL (Normal) Range: 70-110 43-Ngu-506000:09 Urine Test, Office ([id number]) Urine Test, Office Negative (Normal) 15-Kvb-361300:09 Urinalysis, Office ([id number]) UA - LEUKOCYTE ESTERASE Negative (Normal) UA - NITRITE Negative (Normal) URINE UROBILINGN SRAVANI TIMED Normal mg/dL (Normal) UA - PROTEIN Negative mg/dL (Normal) UA - PH 6 (Abnormal) UA - BLOOD Negative (Normal) UA - SPECIFIC GRAVITY 1.025 (Normal) UA - KETONES Negative mg/dL (Normal) UA - BILIRUBIN Negative (Normal) UA - GLUCOSE Negative (Normal) 6-Ars-277841:14 CBC W/Diff, Automated Comments: Test performed at:[facility] [address] [place], [place] [address] Absolute Lymph 2.05 {X10_3/ul} (Normal) Range: 0.83-4.51 [...] 4.2-5.4 WBC 8.6 K/mm3 (Normal) Range: 4.4-11.0 4-Bmg-233346:14 Comprehensive Metabolic Profil Comments: Test performed at:[facility] [address] [place] [address] GAP 2 (Abnormal) Range: 5-15 CO2 32.0 [...] 7-18 GLU 102 mg/dL (Normal) Range: 70-110 39-Nmj-636090:18 CBCD ALC 1.55 {X10_3/ul} (Normal) Range: 0.83-4.51 [...] 4.2-5.4 WBC 7.2 K/mm3 (Normal) Range: 4.4-11.0 90-Pzl-671313:18 CMP GAP 4 (Abnormal) Range: 5-15 CO2 [...] 7-18 GLU 92 mg/dL (Normal) Range: 70-110 8-Eta-693067:31 CBCD ALC 1.45 {X10_3/ul} (Normal) Range: 0.83-4.51 [...] 4.2-5.4 WBC 7.6 K/mm3 (Normal) Range: 4.4-11.0 5-Thp-553408:45 CMP GAP 8 (Normal) Range: 5-15 CO2 [...] Range: 70-110 :50 Blood Glucose , Office (75349) Blood Glucose , Office 143 (Normal) Comments: non-fasting :50 HgA1C , Office (69879) HgA1C , Office 5.8 % (Normal) Range: 4.6 - 7.1 :36 ISIAH Negative (Normal) Comments: Performed at: - [facility] [address] [id number] Director: Ricardo Pace MD, Phone: [phone] :[phone] CCP < 1 {units} (Normal) Range: 0-19 Comments: Negative <20Weak positive 20 - 39Moderate positive 40 - 59Strong positive >59Performed at: - [facility] [id number] Director: Stepan Hernandez MD, Phone: [phone] :[phone] CRP 3.36 mg/L (Abnormal) Range: 0.0-3.0 [...] (Normal) Range: 0.358-3.74 :46 HgA1C , Office (26475) HgA1C , Office 5.7 % (Normal) Range: 4.6 - 7.1 :46 Blood Glucose , Office (22436) Blood Glucose , Office 106 (Normal) :51 HgA1C , Office (39774) HgA1C , Office 5.8 % (Normal) Range: 4.6 - 7.1 :51 Blood Glucose , Office (00447) Blood Glucose , Office 122 (Normal) Comments: non-fasting 4-Zlc-093805:05 HgA1C , Office (57523) HgA1C , Office 5.8 % (Normal) Range: 4.6 - 7.1 :04 Blood Glucose , Office (56851) Blood Glucose , Office 137 (Normal) :25 HgA1C , Office (27125) HgA1C , Office 5.7 % (Normal) Range: 4.6 - 7.1 :25 Blood Glucose , Office (25193) Blood Glucose , Office 96 (Normal) 72-Xxg-938496:33 HEPATIC FUNCTION PANEL Comments: PATIENT NOT FASTINGPERFORMED BY: [facility]DefenseVirtua MarltonIjkrwy3513 [facility] [id number] (47992) Alkaline Phosphatase, S 46 [iU]/L (Normal) Range: [...] Total, Serum 6.7 g/dL (Normal) Range: 6.0-8.5 14-Baw-496585:33 Renal function Panel Comments: PATIENT NOT FASTINGPERFORMED BY: [facility]enseVirt[facility] MarltonGxfdao6904 [facility] [id number] Information: [id number] DRAW FEE 510198 (88265) Albumin, Serum 4.3 g/dL (Normal) Range: 3.5-5.5 [...] Glucose, Serum 105 mg/dL (Abnormal) Range: 65-99 92-Alv-129820:04 Urinalysis, Office (59038) UA - BILIRUBIN Negative (Normal) UA - BLOOD Negative (Normal) UA - GLUCOSE Negative (Normal) UA - KETONES Negative mg/dL (Normal) UA - LEUKOCYTE ESTERASE Negative (Normal) UA - NITRITE Negative (Normal) UA - PH 6.0 (Normal) UA - PROTEIN Negative mg/dL (Normal) UA - SPECIFIC GRAVITY 1.025 (Normal) URINE UROBILINGN SRAVANI TIMED Normal mg/dL (Normal) 57-Tzp-892471:41 HgA1C , Office (46410) HgA1C , Office 5.9 % (Normal) Range: 4.6 - 7.1 :42 LQDPAP [id number] PAPSMR Comment (Normal) Comments: The Pap smear [...] HPV testing was performed. .Performed at: - [facility] [id number] Director: John Echeverria MD, Phone: [phone] COMM . (Normal) DIAGN Comment (Normal) Comments: NEGATIVE FOR INTRAEPITHELIAL LESION AND MALIGNANCY.Satisfactory for evaluation. Endocervical and/or squamous metaplasticcells (endocervical component) are present.Holly Reed, Submarine Operator (ASCP)T his liquid based ThinPrep(R) pap test was screened withthe use of an image guided system. 16-Qrr-654476:20 TSH (77997) Comments: PATIENT WAS FASTINGPERFORMED BY: [facility] [id number] TSH 2.160 {uIU/mL} (Normal) Range: 0.450-4.500 28-Zds-358887:20 MICROALBUMIN: CREATININE RATIO Comments: PATIENT WAS FASTINGPERFORMED BY: [facility] [id number] (24898) AND (47202) Microalb/Creat Ratio 2.3 {mg/g_creat} (Normal) Range: 0.0-30.0 Microalbumin, Urine 1.6 ug/mL (Normal) Range: 0.0-17.0 Creatinine, Urine 70.5 mg/dL (Normal) Range: 15.0-278.0 49-Nvu-107791:20 METABOLIC PANEL, COMPREHENSIVE Comments: PATIENT WAS FASTINGPERFORMED BY: [facility] [id number] (76734) ALT (SGPT) 19 [iU]/L (Normal) Range: 0-40 [...] Glucose, Serum 109 mg/dL (Abnormal) Range: 65-99 25-Vot-067742:20 LIPID PANEL (36861) Comments: PATIENT WAS FASTINGPERFORMED BY: [facility] SolutionsFormerly [facility] [id number] LDL/HDL Ratio 1.4 {ratio_units} (Normal) Range: 0.0-3.2 LDL Cholesterol Calc 108 mg/dL (Abnormal) Range: 0-99 VLDL Cholesterol Zaria 16 mg/dL (Normal) Range: 5-40 HDL Cholesterol 78 mg/dL (Normal) Comments: According to ATP-III Guidelines, HDL-C >59 mg/dL is considered anegative risk factor for CHD. Cholesterol, Total 202 mg/dL (Abnormal) Range: 100-199 Triglycerides 82 mg/dL (Normal) Range: 0-149 29-Pkd-599650:20 CBC WITH MANUAL DIFF Comments: PATIENT WAS FASTINGPERFORMED BY: luma-id [facility] [id number] Information: ADD [id number] AND DRAW FEE 99 5498 (70567) Immature Grans (Abs) 0.0 {x10E3/uL} (Normal) Range: [...] 3.80-5.10 WBC 5.2 {x10E3/uL} (Normal) Range: 4.0-10.5 38-Cih-168649:05 URINE ALISSON CULTURE-SRAVANI COL Comments: PATIENT NOT FASTINGPERFORMED BY: [facility] Lfzkhs7396 [facility] [id number] Information: SRC: [id number] COUNT (42324) Antimicrobial MIHEAD (Normal) Comments: S = Susceptible; [...] Final report (Normal) Culture,Comprehensive :51 Urinalysis, Office (35169) UA - BILIRUBIN Negative (Normal) UA - BLOOD Hemolyzed Trace (Normal) UA - GLUCOSE Negative (Normal) UA - KETONES Negative mg/dL (Normal) UA - LEUKOCYTE ESTERASE Large (Normal) UA - NITRITE Negative (Normal) UA - PH 6.5 (Normal) UA - PROTEIN Negative mg/dL (Normal) UA - SPECIFIC GRAVITY 1.015 (Normal) URINE UROBILINGN SRAVANI TIMED Normal mg/dL (Normal) 11-Oal-313193:53 CBC (Auto) (28744) Comments: PATIENT NOT FASTINGPERFORMED BY: [facility]DefenseVirtua MarltonPjsddd3113 [facility] [id number] Information: [id number] Platelets 271 {x10E3/uL} (Normal) Range: 140-415 RDW 13.4 % (Normal) Range: 11.7-15.0 MCHC 34.0 g/dL (Normal) Range: 32.0-36.0 MCH 31.0 pg (Normal) Range: 27.0-34.0 Hematocrit 37.9 % (Normal) Range: 34.0-44.0 MCV 91 fL (Normal) Range: 80-98 Hemoglobin 12.9 g/dL (Normal) Range: 11.5-15.0 RBC 4.16 {x10E6/uL} (Normal) Range: 3.80-5.10 WBC 4.7 {x10E3/uL} (Normal) Range: 4.0-10.5 :53 Potassium Serum (08029) Comments: PATIENT NOT FASTINGPERFORMED BY: Horse Creek EntertainmentVirtua MarltonEvdgfp8506 [facility] [id number] Potassium, Serum 4.9 mmol/L (Normal) Range: 3.5-5.2 [...] 05/24/10 1522 NANCY. BETH 13:17 Range: 25-115 62-Ayk-939240:17 CBCD,SMEAR DIFF RED CELL MORPH SeeNote {NORMAL} [...] 4.2-5.4 WBC 3.0 K/mm3 (Abnormal) Range: 4.4-11.0 48-Iyj-663641:17 COMP METABOLIC Comments: RESULTS FAXED 05/24/10 152Juve [...] 0.6-1.0 GLU 82 mg/dL (Normal) Range: 70-110 19-Xnl-835508:17 LIPASE 124 U/L (Normal) Comments: RESULTS FAXED 05/24/10 1522 LA CAMPOSCY. Range: 70-290 Comments: Please note:LIPASE revised reference range effective 09. 5-Yqz-916530:38 CBCD,SMEAR DIFF RED CELL MORPH SeeNote {NORMAL} [...] 4.2-5.4 WBC 5.3 K/mm3 (Normal) Range: 4.4-11.0 6-Omv-350594:38 COMP METABOLIC GAP 8 (Normal) Range: 5-15 [...] 0.6-1.0 GLU 86 mg/dL (Normal) Range: 70-110 0-Xas-453758:38 LIPID LDL 98 mg/dL (Normal) Range: 0-130 [...] Very High > or = 500 mg/dL 6-Pgm-282566:38 MICROALB:CRE UR MALB:CREAT 13.5 {mg/g_CRE} (Normal) MICROALBUMIN,UR 5.2 mg/L (Normal) UR CREAT 38.5 mg/dL (Normal) :38 TSH 0.50 {uIU/mL} (Normal) Range: 0.358-3.74 7-Dgk-766188:03 Urinalysis, Office (66466) UA - BILIRUBIN Negative (Normal) UA - BLOOD Hemolyzed Trace (Normal) UA - GLUCOSE Negative (Normal) UA - KETONES Negative mg/dL (Normal) UA - LEUKOCYTE ESTERASE Negative (Normal) UA - NITRITE Negative (Normal) UA - PH 6.5 (Normal) UA - PROTEIN Negative mg/dL (Normal) UA - SPECIFIC GRAVITY 1.020 (Normal) URINE UROBILINGN SRAVANI TIMED Normal mg/dL (Normal) 26-Ozi-180151:01 Urinalysis, Office (13940) UA - BILIRUBIN Moderate (Normal) UA - BLOOD Hemolyzed Large (Normal) UA - GLUCOSE Negative (Normal) UA - KETONES Negative mg/dL (Normal) UA - LEUKOCYTE ESTERASE Negative (Normal) UA - NITRITE Negative (Normal) UA - PH 6.0 (Normal) UA - PROTEIN Negative mg/dL (Normal) UA - SPECIFIC GRAVITY 1.010 (Normal) URINE UROBILINGN SRAVANI TIMED Normal mg/dL (Normal) 60-Rpg-660861:46 URINE ALISSON CULTURE-IDENTIFICATN Comments: PATIENT NOT FASTINGPERFORMED BY: [facility] Bvdfjq0329 [facility] [id number] Information: [id number] (57975) Result 1 NG36 (Normal) Comments: No growth in 36 - 48 hours. Urine Culture,Comprehensive Final report (Normal) 10-Moj-670108:00 TSH (21963) Comments: PATIENT WAS FASTINGPERFORMED BY: [facility]6370 [facility] [id number] TSH 1.190 {uIU/mL} (Normal) Range: 0.450-4.500 89-Ggh-694135:00 METABOLIC PANEL, COMPREHENSIVE Comments: PATIENT WAS FASTINGPERFORMED BY: [facility]6370 [facility] [id number] (09168) A/G Ratio 1.7 (Normal) Range: 1.1-2.5 Albumin, [...] Sodium, Serum 139 mmol/L (Normal) Range: 135-145 92-Bld-496025:00 LIPID PANEL (23758) Comments: PATIENT WAS FASTINGPERFORMED BY: [facility]70 [facility] [id number] Cholesterol, Total 231 mg/dL (Abnormal) Range: 100-199 HDL Cholesterol 79 mg/dL (Normal) Comments: According to ATP-III Guidelines, HDL-C >59 mg/dL is considered anegative risk factor for CHD. LDL Cholesterol Calc 127 mg/dL (Abnormal) Range: 0-99 LDL/HDL Ratio 1.6 {ratio_units} (Normal) Range: 0.0-3.2 Triglycerides 123 mg/dL (Normal) Range: 0-149 VLDL Cholesterol Zaria 25 mg/dL (Normal) Range: 5-40 85-Bny-780931:00 CBC WITH MANUAL DIFF (39700) Comments: PATIENT WAS FASTINGClinical Information: [id number] PERFORMED BY: [facility]6370 [facility] [id number] Baso (Absolute) 0.0 {x10E3/uL} (Normal) Range: 0.0-0.2 [...] Clinical Information: SRC:UR PERFORMED BY: NILE Palmer6370 [facility] [id number] Result 1 ECV (Normal) Comments: Escherichia coli, [...] S Urine Final report (Normal) Culture,Comprehensiv e 86-Vjx-864444:59 Urinalysis, Office (89752) UA - BILIRUBIN Negative (Normal) UA - BLOOD Hemolyzed Moderate (Normal) UA - GLUCOSE Negative (Normal) UA - KETONES Negative mg/dL (Normal) UA - LEUKOCYTE ESTERASE Moderate (Normal) UA - NITRITE Negative (Normal) UA - PH 6.0 (Normal) UA - PROTEIN Negative mg/dL (Normal) UA - SPECIFIC GRAVITY 1.015 (Normal) URINE UROBILINGN SRAVANI TIMED 2 mg/dL (Normal) 78-Brd-473117:54 URINALYSIS W/O MICRO (99014) Comments: PATIENT WAS FASTINGPERFORMED BY: NILE Crowleylin6370 [facility] [id number] Appearance Clear (Normal) Bilirubin Negative (Normal) Glucose Negative (Normal) Ketones Negative (Normal) Microscopic Examination MICRON (Normal) Comments: Microscopic follows if indicated. Nitrite, Urine Negative (Normal) Occult Blood Negative (Normal) pH 6.5 (Normal) Range: 5.0-7.5 Protein Negative (Normal) Specific [place] 1.012 (Normal) Range: 1.005-1.030 Urine-Color Yellow (Normal) Urobilinogen,Semi-Qn 0.2 mg/dL (Normal) Range: 0.0-1.9 WBC Esterase Negative (Normal) :54 TSH (67735) Comments: PATIENT WAS FASTINGPERFORMED BY: [employer]70 [facility] [id number] TSH 1.015 {uIU/mL} (Normal) Range: 0.450-4.500 :54 METABOLIC PANEL, COMPREHENSIVE Comments: PATIENT WAS FASTINGPERFORMED BY: [facility]in6370 [facility] [id number] (54356) A/G Ratio 1.5 (Normal) Range: 1.1-2.5 Albumin, [...] Serum 113 mg/dL (Abnormal) Range: 65-99 If -Hungarian >59 mL/min/1.73 Comments: Note: Persistent reduction for [...] Sodium, Serum 140 mmol/L (Normal) Range: 135-145 13-Wxi-484751:54 LIPID PANEL (95296) Comments: PATIENT WAS FASTINGPERFORMED BY: griddig ID [id number] Cholesterol, Total 199 mg/dL (Normal) Range: 100-199 [...] Cholesterol Zaria 26 mg/dL (Normal) Range: 5-40 12-Zkl-225839:54 CBC WITH MANUAL DIFF (17068) Comments: PATIENT WAS FASTINGClinical Information: ADD DRAW FEE 330900 ADD J 48334 PERFORMED BY: [employer] [facility]Former[facility] [id number] Baso (Absolute) 0.0 {x10E3/uL} (Normal) Range: 0.0-0.2 [...] change for the pediatric CBC With Differential/Platelet 67-Uqd-693549:32 PELVIC (NON-PREG) (HP) Radiology Report See Note (Normal) Comments: Exam Number: [id number] PELVIC ULTRASOUND HISTORYOvarian cyst, left side. COMPARISON [...] 26, 2006. Reported By: MANSI SINGER M.D. 0-Jeu-373112:42 ISIAH-D [id number] ISIAH-DIRECT 32 U/mL (Normal) Range: 0-99 Comments: [...] Range: 0.2 - 1.0 :42 T3, FREE 12510 2.8 pg/mL (Normal) Range: 2.3-4.2 Comments: Performed At: [address] [id number] :42 T4 FREE,DIRECT 1.0 ng/dL (Normal) Range: 0.89-1.76 :42 TSH 0.54 {uIU/mL} (Normal) Range: 0.34-4.82 2-Wdr-821641:56 MAMM, UILAT DIAG DIGITAL & CAD Radiology Report See Note (Normal) Comments: Exam Number: [id number] MAMMOGRAPHY, RIGHT UNILATERAL DIAGNOSTIC DIGITAL AND CAD [...] mammograms werealso examined with computer-aided detection software ([employer] Reported By: AARON DE ANDA M.D. :59 MAMM, BILAT SCRN DIGITAL & CAD Radiology Report See Note (Normal) Comments: Exam Number: [id number] BILATERAL SCREENING DIGITAL MAMMOGRAM CLINICAL INFORMATIONScreening. TECHNIQUEBilateral [...] werealso examined with computer- aided detection software ([employer] Reported By: SUSI MACK M.D. 44-Fov-324630:59 PELVIC (NON-PREG) (HP) Radiology Report See Note (Normal) Comments: Exam Number: [id number] TRANSABDOMINAL PELVIC ULTRASOUND CLINICAL STATEMENTLower abdominal pain. [...] Anxiety: emotional health Indication: Impaired fasting glucose WatchFrog V73.21 (Renamed from WatchFrog) : *Well Female Maintenance (KF) Indication: NewsWhipV V73.21 (Renamed from WatchFrog) [employer]rog V73.21 (Renamed from [employer]) : Pap/Pelvic/Bimanual/Rectal/Breast Exam was done. Indication: Watch[employer]rog V73.21 (Renamed from WatchFrog) Dysuria : Water in diet, brief version Indication: Dysuria Dysuria : *UTI treatment Indication: Dysuria Dysuria : *UTI treatment Indication: Dysuria Dysuria : UTI treatment Indication: Dysuria Fatigue : FOLLOW UP IN 2 WEEKS Indication: Fatigue Fatigue : *fatigue education Indication: Fatigue Planned Observations MICROALBUMIN: CREATININE RATIO (98429) AND (10758)Indication: Hypertension On: :52 Request URINALYSIS (28551)Indication: Hypertension On: :52 Request CBC WITH MANUAL DIFF (59378)Indication: Hypertension On: :52 Request Metabolic Panel, Comprehensive (99895)Indication: Hypertension On: :52 Request Anti-TPO Antibody (19050)Indication: Subclinical hyperthyroidism On: 02-Sjj-728788:40 Request Comments: check in February T4, FREE (THYROXINE) (43143)Indication: Subclinical hyperthyroidism On: 95-Kpj-232311:40 Request Comments: check in February T-3 UPTAKE (80662)Indication: Subclinical hyperthyroidism On: 12-Wra-685818:40 Request Comments: recheck February TSH (87494)Indication: Subclinical hyperthyroidism On: 90-Xgw-023605:40 Request Comments: recheck February CULTURE, SPUTUM (07870)Indication: COPD with acute exacerbation (Renamed from Acute exacerbation of chronic obstructive airways disease) On: 9-Dcg-135621:45 Request Anti-TPO Antibody (96181)Indication: Abnormal blood chemistry On: :18 Request T3, FREE (TRIDOTHYRONINE) (13236)Indication: Abnormal blood chemistry On: :18 Request T4, FREE (THYROXINE) (97737)Indication: Abnormal blood chemistry On: :18 Request TSH (69459)Indication: Abnormal blood chemistry On: :18 Request D-Dimer (15798)Indication: Chest pain On: 1-Zox-434395:49 Request Comments: do all labs stat...zaria to on zaria if abnormal CPK MB FRACTION (87013)Indication: Chest pain On: 4-Azs-436175:22 Request CREATINE KINASE TOTAL (49687)Indication: Chest pain On: 8-Eva-966079:22 Request Metabolic Panel, Comprehensive (44893)Indication: Fatigue On: 3-Myp-894911:06 Request CBC, Platelets & Auto Diff (65571)Indication: Immunocompromised On: 2-Neb-880818:03 Request CULTURE, SPUTUM (06699)Indication: Bronchitis, acute On: 5-Dtn-184939:58 Request METABOLIC PANEL, COMPREHENSIVE (07750)Indication: Benign essential hypertension On: 65-Kvi-157361:57 Request LIPID PANEL (16086)Indication: Benign essential hypertension On: 24-Vzo-709879:57 Request T4, FREE (THYROXINE) (04630)Indication: Perimenopausal menorrhagia On: 8-Lln-895486:00 Request TSH (THYROID STIMULATING HORMONE) (82017)Indication: Perimenopausal menorrhagia On: 9-Oqc-580390:59 Request Comments: fax copy all labs to Dr. bales HCG (HUMAN CHORIONIC GONADOTROPIN) (88392)Indication: Perimenopausal menorrhagia On: 1-Vnp-554518:57 Request PTT (ACTIVATED PARTIAL THROMBOPLASTIN TIME) (34490)Indication: Perimenopausal menorrhagia On: 1-Wvr-985597:57 Request PT/INR, Office (60205)Indication: Perimenopausal menorrhagia On: 9-Hdn-713574:57 Request 17-HYDROXYPREGNENOLONE (56980)Indication: Perimenopausal menorrhagia On: :57 Request PROLACTIN (95669)Indication: Perimenopausal menorrhagia On: 4-Vwc-761349:57 Request LIPID PANEL (76429)Indication: Benign essential hypertension On: 96-Kej-800068:28 Request CCP ANTIBODY (02052)Indication: Acute rheumatoid arthritis On: : Request SED RATE ERYTHROCYTE (23006)Indication: Acute rheumatoid arthritis On: :17 Request C-REACTIVE PROTEIN (22894)Indication: Acute rheumatoid arthritis On: :17 Request TSH (71789)Indication: Acute rheumatoid arthritis On: :17 Request RHEUMATOID FACTOR-QUANT (59079)Indication: Acute rheumatoid arthritis On: :17 Request ISIAH (ANTINUCLEAR ANTIBODY) (02837)Indication: Acute rheumatoid arthritis On: :17 Request URINALYSIS, W/ MICRO (10813)Indication: Benign essential hypertension On: 7-Rsp-528349:20 Request METABOLIC PANEL, COMPREHENSIVE (19989)Indication: Benign essential hypertension On: :20 Request LIPID PANEL (85523)Indication: Benign essential hypertension On: 7-Zcd-841125:20 Request CBC WITH MANUAL DIFF (70034)Indication: Benign essential hypertension On: 8-Hhr-832492:20 Request URINE ALISSON CULTURE (SRAVANI COL COUNT) (59932)Indication: Hematuria On: 24-Qqa-714981:04 Request METABOLIC PANEL, COMPREHENSIVE (07756)Indication: Nausea and vomiting On: 56-Ova-311018:02 Request CBC WITH MANUAL DIFF (76793)Indication: Nausea and vomiting On: 18-Pfz-018421:02 Request Lipase (06450)Indication: Nausea and vomiting On: 85-Lbk-507025:01 Request Amylase (44235)Indication: Nausea and vomiting On: 13-Zoc-661387:01 Request OVA & PARASITE DIR SMEAR (47718)Indication: Diarrhea On: 68-Qip-102752: Request C.Difficile, Stool (01167)Indication: Diarrhea On: 09-Iqk-834213:01 Request LEUKOCYTE COUNT, FECAL (58753)Indication: Diarrhea On: 48-Soc-617515: Request ALISSON CULTURE-STOOL (34887)Indication: Diarrhea On: 59-Joo-090152: Request TSH (34188)Indication: Depression On: 3-Wwz-168664:10 Request MICROALBUMIN: CREATININE RATIO (74861) AND (31590)Indication: Benign essential hypertension On: 3-Pvo-787729:10 Request METABOLIC PANEL, COMPREHENSIVE (65220)Indication: Benign essential hypertension On: 2-Vqn-633481:10 Request LIPID PANEL (25980)Indication: Benign essential hypertension On: :09 Request CBC WITH MANUAL DIFF (28012)Indication: Benign essential hypertension On: 6-Rjk-515461:09 Request URINALYSIS W/O MICRO (57273)Indication: Benign essential hypertension On: :39 Request MICROALBUMIN URINE QUANT (66600)Indication: Benign essential hypertension On: :39 Request METABOLIC PANEL, COMPREHENSIVE (41995)Indication: Benign essential hypertension On: :39 Request LIPID PANEL (62046)Indication: Benign essential hypertension On: :39 Request ISIAH (ANTINUCLEAR ANTIBODY) (45333)Indication: Fatigue On: :39 Request C-REACTIVE PROTEIN (91986)Indication: Fatigue On: :39 Request CBC (AUTO) (51544)Indication: Fatigue On: :39 Request Folate (82722)Indication: Fatigue On: :39 Request METABOLIC PANEL, COMPREHENSIVE (78919)Indication: Fatigue On: :39 Request RHEUMATOID FACTOR-QUANT (36335)Indication: Fatigue On: :39 Request SED RATE ERYTHROCYTE (34317)Indication: Fatigue On: :39 Request TSH (93312)Indication: Fatigue On: 4-Whu-343557:39 Request VITAMIN B-12 (CYANOCOBALAMIN) (94571)Indication: Fatigue On: 2-Pvl-570899:39 Request Planned Encounters Medical; TIMOTHY Wellness Exam (Doctor) - On: 22-Mar-2018 10:15 [facility] Shasha Barker MD, MD, Dana M Planned Procedures MRI OF LUMBAR SPINE WITH AND WITHOUT On: 18-Jan-2018 Intent CONTRAST (32204)By: Shasha Barker MD Comments: rule out cauda equina syndrome, back injection also in last [facility] claude M Shasha Barker MD THYROID SCAN UPTAKE (39177)By: On: 16-Nov-2017 Intent Shasha Barker MD, MD, [...] (J2930)By: Shasha Barker MD Comments: Lot # [id number] solu medrol [facility]a MD Radiology - ChestBy: Mj AL, On: 15-May-2017 Intent Shasha Ba MD Solu- Medrol Injection, 125mg On: 12-May-2017 Intent (J2930)By: Shasha Barker MD, MD, Dana M Aerosol Treatment (75975)By: Mj On: 12-May-2017 Intent Shasha AL MD, Dana M EKG (94932)By: Shasha Barker MD On: 12-Mar-2017 Intent Shasha [...] MD, Dana M XRAY LEFT SMALL TOE (85229)By: On: 20-May-2016 Intent Shasha Barker MD, MD, Dana Comments: 5th digit focus on area of pain and get distal metatarsal bone M MAMMOGRAM BREAST BILATERAL SCREENING On: 06-May-2016 Intent DIGITAL (72242)By: Shasha Barker MD, MD, Dana M DEXA SCAN AXIAL SKELETON (82423)By: On: 06-May-2016 Intent Shasha Barker MD, MD, Dana M Ultrasound - RenalBy: Mj AL, On: 07-Aug-2015 Intent Shasha Ba MD Nuclear Stress Test/Stress On: 08-Jun-2015 Intent SPECT/AdenosineBy: Shasha Barker MD, MD, Dana M Radiology - ChestBy: Chuyita ROSS Ophelia On: 27-Feb-2015 Intent E Radiology - ChestBy: Chuyita ROSSOphelia On: 05-Feb-2015 Intent E Ultrasound - PelvisBy: Chuyita ROSS, On: 19-Jul-2014 Intent Vero EKG (33298)By: Shasha Barker MD On: 23-Jun-2013 Intent Shasha Barker MD Comments: see scanned document of test done to see results reviewed today with patient MAMMOGRAM, SCREENING, BOTH BREASTS On: 23-Jun-2013 Intent (79737)By: Shasha Barker MD, MD, Dana M Eprescribed prescriptions (G8553)By: On: 23-Jun-2013 Intent Shasha Barker MD, MD, Dana M Radiology - Hand - BilateralBy: On: 10-Feb-2013 Intent Shasha Barker MD, MD, Dana Comments: copy to Dr. kern and lior Whitten Eprescribed prescriptions ([id number])By: On: 10-Feb-2013 Intent Long BIBLE TEACHER, Riana L Eprescribed prescriptions ([id number])By: On: 11-Oct-2012 Intent Shasha Barker MD, MD, Dana M EKG ([id number])By: Shasha Barker MD On: 11-Jun-2012 Intent Shasha Barker MD Eprescribed prescriptions ([id number])By: On: 11-Jun-2012 Intent Long BIBLE TEACHER, Riana L CT - Abdomen & Pelvis (IV Contrast On: 12-Mar-2012 Intent Needed)By: Shasha Barker MD, MD, Dana M MAMMOGRAM, SCREENING, BOTH BREASTS On: 29-Apr-2011 Intent ([id number])By: Shasha Barker MD, MD, Dana M MAMMOGRAM, SCREENING, BOTH BREASTS On: 25-Apr-2011 Intent ([id number])By: Shasha Barker MD, MD, Dana M EKG ([id number])By: JACKIE Bruno On: 26-Aug-2010 Intent Ultrasound - GallbladderBy: Fast DO, On: 27-May-2010 Intent Philomena A Ultrasound - GallbladderBy: Fast DO, On: 24-May-2010 Intent Philomena A Doppler Ultrasound OtherBy: Augustine On: 25-Apr-2010 Intent DO, Jeannette Comments: L lower extrrem- eval for clot and eval bakers cyst? size ? leaking ? Radiology - ChestBy: Mj AL, On: 23-May-2009 Intent Shasha Ba MD EKG (67388)By: Shasha Barker MD On: 24-Apr-2009 Intent [address] MD [address] - Brain/HeadBy: Shasha Barker MD On: 24-Apr-2009 Intent Shasha Gillespie MD EKG ([id number])By: Shasha Barker MD On: 14-Apr-2008 Intent Shasha Barker MD MAMMOGRAM, SCREENING, BOTH BREASTS On: 14-Apr-2008 Intent ([id number])By: Shasha Barker MD, MD, Dana M Ultrasound - PelvisBy: Mj AL, On: 23-Nov-2006 Intent Shasha Ba MD EKG ([id number])By: MILTON ROSS PEGGY On: 10-Aug-2006 Intent Comments: [...] date: (04-07-11).Encounter Diagnosis: WWV V73.21 (Renamed from [facility]) [facility] Office Visit [...] (311.), Fatigue (780.79), WWV V73.21 (Renamed from [facility]) [facility] Annotation/Addendum On: [...] disturbance (368.9), Headache (784.0), Backache, unspecified (724.5), [facility] Comprehensive Internal Medicine Office Visit [...] left, use cockup splint, see pelligrtawanda in [place]--did ncs 1year ago--show CTS, xray of hand [...]
--- OUTSIDE RECORDS SUMMARY | 2018-05-29 01:18 | XMS RPT_ITS ---
:1960 Author Organization [place] Support Name Relationship Address Phone AMERICA LERMA Unavailable [address] + [place] [address] SAGRARIO BLACKWOOD Unavailable [address] + [place] [address] UE Unavailable Unavailable Unavailable AMERICA LERMA Unavailable [address] + [place] [address] SAGRARIO BLACKWOOD Unavailable [address] + [place] [address] UE Unavailable Unavailable Unavailable AMERICA LERMA Unavailable [address] + [place] [address] SAGRARIO BLACKWOOD Unavailable [address] + [place] [address] UE Unavailable Unavailable Unavailable AMERICA LERMA Unavailable [address] + [place] [address] SAGRARIO BLACKWOOD Unavailable [address] + [place] [address] UE Unavailable Unavailable Unavailable AMERICA LERMA Unavailable [address] + [place] [address] SAGRARIO BLACKWOOD Unavailable [address] + [place] [address] UE Unavailable Unavailable Unavailable AMERICA LERMA Unavailable [address] + [place] [address] S Unavailable Unavailable Unavailable SAGRARIO BLACKWOOD Unavailable [address] + [place] [address] AMERICA LERMA Unavailable [address] + [place] [address] S Unavailable Unavailable Unavailable SAGRARIO BLACKWOOD Unavailable [address] + [place] [address] PAMER, AMERICA Unavailable [address] + [place] [address] S Unavailable Unavailable Unavailable SAGRARIO BLACKWOOD Unavailable [address] + [place] [address] PAMER, AMERICA Unavailable [address] + [place] [address] S Unavailable Unavailable Unavailable SAGRARIO BLACKWOOD Unavailable [address] + [place] [address] PAMER, AMERICA Unavailable [address] + [place] [address] S Unavailable Unavailable Unavailable SAGRARIO BLACKWOOD Unavailable [address] + [place] [address] PAMER, AMERICA Unavailable [address] + [place] [address] S Unavailable Unavailable Unavailable SAGRARIO BLACKWOOD Unavailable [address] + [place] [address] PAMER, AMERICA Unavailable [address] + [place] [address] S Unavailable Unavailable Unavailable SAGRARIO BLACKWOOD Unavailable [address] + [place] [address] PAMER, AMERICA Unavailable [address] + [place] [address] S Unavailable Unavailable Unavailable SAGRARIO BLACKWOOD Unavailable [address] + [place] [address] PAMER, AMERICA Unavailable [address] + [place] [address] S Unavailable Unavailable Unavailable SAGRARIO BLACKWOOD Unavailable [address] + [place] [address] PAMER, AMERICA Unavailable [address] + [place] [address] S Unavailable Unavailable Unavailable SAGRARIO BLACKWOOD Unavailable [address] + [place] [address] PAMER, AMERICA Unavailable [address] + [place] [address] S Unavailable Unavailable Unavailable CHASTITY, SAGRARIO Unavailable [address] + [place] [address] AMERICA LERMA Unavailable [address] + [place] [address] S Unavailable Unavailable Unavailable CHASTITY, SAGRARIO Unavailable [address] + [place] [address] AMERICA LERMA Unavailable [address] + [place] [address] S Unavailable Unavailable Unavailable CHASTITY, SAGRARIO Unavailable [address] + [place] [address] AMERICA LERMA Unavailable [address] + [place] [address] S Unavailable Unavailable Unavailable CHASTITY, SAGRARIO Unavailable [address] + [place] [address] AMERICA LERMA Unavailable [address] + [place] [address] S Unavailable Unavailable Unavailable CHASTITY, SAGRARIO Unavailable [address] + [place] [address] Care Team Providers Name Role Phone Pelon Chatterjee Attending Unavailable Bonezzi, Valeriano Primary Care Unavailable Sibilia, Pelon Referring Unavailable Sibilia, Pelon Attending Unavailable Bonezzi, Valeriano Primary Care Unavailable Sibhanna Pelon Referring Unavailable Bonezzi, Valeriano Attending Unavailable Bonezzi, Valeriano Primary Care Unavailable SibiliaPelon Attending Unavailable Bonezzi, Valeriano Primary Care Unavailable Sibilia, Pelon Attending Unavailable Bonezzi, Valeriano Primary Care Unavailable Sibilia, Pelon Attending Unavailable Sibilia, Pelon Referring Unavailable Bonezzi, Valeriano Primary Care Unavailable Dale Zuniga Attending Unavailable Dael Zuniga Referring Unavailable Bonezzi, Valeriano Primary Care Unavailable Allie Bales Attending Unavailable SibiliaPelon Attending Unavailable Bonezzi, Valeriano Primary Care Unavailable SibiliaPelon Attending Unavailable Sibilia, Pelon Referring Unavailable Bonezzi, Valeriano Primary Care Unavailable Bonezzi, Valeriano Attending Unavailable Bonezzi, Valeriano Referring Unavailable Bonezzi, Valeriano Primary Care Unavailable More Taylor Attending Unavailable BasaliMore Referring Unavailable Bonezzi, Valeriano Primary Care Unavailable Bonezzi, Valeriano Attending Unavailable Bonezzi, Valeriano Referring Unavailable Bonezzi, Valeriano Primary Care Unavailable Nabeel Danielle Attending Unavailable Nabeel Danielle Referring Unavailable Bonezzi, Valeriano Primary Care Unavailable Sibilia, Pelon Attending Unavailable Sibilia, Pelon Referring Unavailable Bonezzi, Valeriano Primary Care Unavailable Bonezzi, Valeriano Primary Care Unavailable Gunner Mc Attending Unavailable Sibilia, Pelon Attending Unavailable Sibilia, Pelon Referring Unavailable Bonezzi, Valeriano Primary Care Unavailable OLLIE STEVENS Attending Unavailable OLLIE STEVENS Referring Unavailable Bonezzi, Valeriano Primary Care Unavailable OLLIE STEVENS Consulting Unavailable HelderoritaJose L Attending Unavailable Fiorita, Vincedin Referring Unavailable Bonezzi, Valeriano Primary Care Unavailable Bonezzi, Valeriano Primary Care Unavailable Christian Schrader Attending Unavailable KRISHCARLOS COLEMAN Attending Unavailable KRCARLOS WHITMAN Referring Unavailable MUSCHLERLUI Attending Unavailable KRISHLAEYCARLOS Referring Unavailable MUSCHLER, LUI Panchal Referring Unavailable MUSCHLER, LUI Panchal Referring Unavailable MUSCHLER, LUI Panchal Referring Unavailable BARBASTEFANOEDGAR Attending Unavailable MUSCHLER, LUI Panchal Referring Unavailable MUSCHLER, LUI Panchal Referring Unavailable MUSCHLER, LUI Panchal Referring Unavailable BARBASTEFANOEDGAR Referring Unavailable MUSCHLER, LUI Panchal Admitting Unavailable MUSCHLER, LUI Panchal Attending Unavailable MUSCHLER, LUI Panchal Referring Unavailable MUSCHLER, LUI Panchal Attending Unavailable MUSCHLERLUI Referring Unavailable STEPAN YING Attending Unavailable TAMMY, VALERIANO JEAN Referring Unavailable David YING Attending Unavailable BONEZZI, VALERIANO Referring Unavailable BONEZZI, VALERIANO Primary Care Unavailable David YING Attending Unavailable BONEZZI, VALERIANO Referring Unavailable BONEZZI, VALERIANO Primary Care Unavailable Valeriano Munoz MD Attending Unavailable Valeriano Munoz MD Referring Unavailable Valeriano Munoz MD Consulting Unavailable PROBLEMS PROBLEMS DATE TYPE CONDITION / CODE ATTENDING STATUS SOURCE 03/08/2018 Active Osteoarthritis of MUSCHLER, Active [place] hip, unspecified / [facility] M16.9(ICD-10) [place] Repository 03/16/2018 Active Presence of left MUSCHLER, Active [place] artificial hip [facility] Main joint / [place] Z96.642(ICD-10) Repository 03/12/2018 Active Interstitial NA Active [facility] pulmonary disease, Clinic Main unspecified / [place] J84.9(ICD-10) Repository 03/12/2018 Active Rheumatoid NA Active [facility] arthritis, Clinic Main unspecified / [place] M06.9(ICD-10) Repository 03/12/2018 Active Unknown / NA Active [facility] UNK(Unknown) Clinic Main [place] Repository 03/12/2018 Active Encounter for other BARBASTEFANO, Active [place] preprocedural EDGAR [facility] Main examination / [place] Z01.818(ICD-10) Repository 03/08/2018 Active Osteonecrosis, NA Active [facility] unspecified / Clinic Main M87.9(ICD-10) [place] Repository 03/08/2018 Active Other specified NA Active [place] rheumatoid [facility] Main arthritis, multiple [place] sites / Repository M06.89(ICD-10) 03/08/2018 Active Fibromyalgia / NA Active [place] M79.7(ICD-10) Clinic Main [place] Repository 03/08/2018 Active Obesity, NA Active [facility] unspecified / Clinic Main E66.9(ICD-10) [place] Repository 03/08/2018 Active care home (current) NA Active [place] use of systemic Clinic Main steroids / [place] Z79.52(ICD-10) Repository 03/08/2018 Active Vitamin D NA Active [place] deficiency, Clinic Main unspecified / [place] E55.9(ICD-10) Repository 02/08/2018 Active Gastro-esophageal PAPOURAS, Active [place] reflux disease [facility] Other without esophagitis [place] / K21.9(ICD-10) Repository 02/18/2016 Admitting Unknown / David YING Active [facility] diagnosis UNK(Unknown) [facility] Repository 01/26/2018 Active 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, [place] lumbar region / Repository M47.816(ICD-10) 08/27/2017 Unknown H91.92 - [place]art[place], Active [place] Unspecified hearing [facility] loss, left ear / Hospital H91.92(ICD-10) Repository 08/26/2017 Unknown N95.1 - Menopausal Shriner, Allie Active [place] and female [facility] / N95.1(ICD-10) Repository 08/26/2017 Unknown Z12.4 - Encounter Allie Bales Active [place] for screening for [facility] malignant neoplasm Hospital of cervix / Repository Z12.4(ICD-10) 08/26/2017 Unknown Z01.419 - Encounter Allie Bales Active [place] for gynecological [facility] examination [facility] (general) (routine) Repository without abnormal findings / Z01.419(ICD-10) 08/03/2017 Unknown J84.116 - Pelon Chatterjee Active [place] Cryptogenic [facility] Hospital pneumonia / Repository J84.116(ICD-10) PROCEDURES PROCEDURES No Procedure Records FoundRESULTS RESULTS PROGRESS Observed: 04/12/2018 Status: COMPLETED Source: [place] 3:44 PM [facility] REPOSITORY HNO ID: [id number] Author: Lui Hsu Service: (none) Author Type: Physician Type: Progress Notes Filed: 04/12/2018 3:51 PM Note Text: Rosa Blackwood [id number] April 12, 2018 3:44 PM Rosa Blackwood returns 4 weeks status post left hip arthroplasty. Her postoperative course was comp located by a posterior dislocation. This was relocated uneventfully. Post reduction radiographs show no change in implant position. Event happens and setting where she had her feet are part and apparently allowed the knee to fall into internal rotation while she was leaning forward. She understands that this was a mistake and positioned that she should systematically avoid in the future. We reviewed stable positions with her feet together knees apart and showed her that she could safely bend to 120? with respect to her left hip. She understands that she can cross her ankles safely in either direction. We discussed how to picking supervisor things on the floor. She will continue to use her walker for the next 2 weeks before progressing to full weightbearing. She will progress to outpatient therapy at this point and continue to review with the therapist dislocation precautions on a regular basis. She and her will be very conscious of her positioning and he will systematically remind her if she is sitting with her feet apart in the future. We have a scheduled follow-up 2 weeks from now but she does not need to keep this as long as she is making appropriate progress. Our next routine follow-up will be at 1 year with AP pelvis and AP and lateral radiograph of the left hip on arrival at that time. We remain available to Mrs Blackwood at anytime if new questions or concerns arise. There was apparently some part of the printed materials that she receive that she found confusing. I've encouraged her to forward those to us and indicated where we can improve our patient education materials. Lui Hsu MD April 12, 2018 3:47 PM CNOV Observed: 04/12/2018 Status: COMPLETED Source: [place] 2:00 PM [facility] REPOSITORY Office Visit (ORTHMN) CHASTITYROSA ([id number]) 1960 F Date Time Provider Department 04/12/18 2:00 PM LUI HSU ORTHMN During your visit today, we recorded the following information about you: Lui Hsu MD 04/12/2018 3:51 PM Signed Rosa Blackwood [id number] April 12, 2018 3:44 PM Rosa Blackwood returns 4 weeks status post left hip arthroplasty. Her postoperative course was comp located by a posterior dislocation. This was relocated uneventfully. Post reduction radiographs show no change in implant position. Event happens and setting where she had her feet are part and apparently allowed the knee to fall into internal rotation while she was leaning forward. She understands that this was a mistake and positioned that she should systematically avoid in the future. We reviewed stable positions with her feet together knees apart and showed her that she could safely bend to 120? with respect to her left hip. She understands that she can cross her ankles safely in either direction. We discussed how to picking supervisor things on the floor. She will continue to use her walker for the next 2 weeks before progressing to full weightbearing. She will progress to outpatient therapy at this point and continue to review with the therapist dislocation precautions on a regular basis. She and her will be very conscious of her positioning and he will systematically remind her if she is sitting with her feet apart in the future. We have a scheduled follow-up 2 weeks from now but she does not need to keep this as long as she is making appropriate progress. Our next routine follow-up will be at 1 year with AP pelvis and AP and lateral radiograph of the left hip on arrival at that time. We remain available to Mrs Blackwood at anytime if new questions or concerns arise. There was apparently some part of the printed materials that she receive that she found confusing. I've encouraged her to forward those to us and indicated where we can improve our patient education materials. Lui Hsu MD April 12, 2018 3:47 PM Referring Provider: LUI HSU [303] Allergies As of Date: 04/12/2018 Noted Allergy Reaction AMPICILLIN 08/18/2006 16 - Unknown Comments: Told as a child allergic, has had similar meds since CIPROFLOXACIN 07/01/2015 6 - Diarrhea CLINDAMYCIN 07/01/2015 6 - Diarrhea Date Reviewed: 04/12/2018 Reviewed by: Luisa Finn Ma - Fully Assessed Reason for Visit: Surgical Followup [104] Cmt: DOS 03/16/18 left hip Primary Visit Diagnosis:Status post left hip replacement [Z96.642] Other Visit Diagnosis:Rheumatoid arthritis involving multiple sites, unspecified rheumatoid factor presence (HCC) [M06.9] Order(s):CONSULT TO RHEUM/IMMUN DISEASE [9039] Order #: [id number]: 1 Prescriptions as of 04/12/2018 Sig: DOCUSATE SODIUM 100 MG CAPSULE Take 1 capsule by mouth twice* ASPIRIN 81 MG TABLET,DELAYED * Take 1 tablet by mouth twice * ASCORBIC ACID (VITAMIN C) 500* Take 1 tablet by mouth once d* ACETAMINOPHEN 500 MG TABLET Take 2 tablets by mouth every* COMPOUNDED PRESCRIPTION Krill Oil 1 cap DA ELMIRON ORAL Take 1 tablet by mouth three * AMLODIPINE 5 MG TABLET Take 5 mg by mouth once daily. SULFAMETHOXAZOLE 800 MG-TRIME* Take by mouth. Mon, wed, fri PREDNISONE 10 MG TABLET Take 10 mg by mouth once adama* BUPROPION XL 300 MG 24 HR TAB Take 300 mg by mouth once mary ellen* DULOXETINE 60 MG CAPSULE,HANANE* Take 60 mg by mouth once adama* AZATHIOPRINE 50 MG TABLET Take 50 mg by mouth three len* LIDOCAINE 5 % TOPICAL PATCH Apply 1 Patch as directed as * DICLOFENAC 1 % TOPICAL GEL Apply to affected area four t* BDSJIUS-ILGUBLHPO-QMOH ORAL Take by mouth once daily. CO Q-10 ORAL Take by mouth once daily. IBUPROFEN 400 MG TABLET Take 400 mg by mouth every 6 * LOSARTAN ORAL Take by mouth. LYRICA ORAL Take 75 mg by mouth. 2 capsul* PRILOSEC ORAL Take 40 mg by mouth twice mary ellen* PROGESTERONE MISC AMBIEN ORAL Take 12.5 mg by mouth. Problem List As Of Date 04/12/2018 Noted Resolved Current chronic use of systemic steroids [Z79.5*INVALID FOR* Rheumatoid arthritis involving multiple sites (*INVALID FOR* Obesity, Class I, BMI 30-34.9 [E66.9] INVALID FOR* Osteonecrosis of left hip (HCC) [M87.9] INVALID FOR*04/12/2018 More... Fibromyalgia [M79.7] INVALID FOR* Vitamin D deficiency [E55.9] INVALID FOR* OA (osteoarthritis) of hip [M16.9] INVALID FOR*04/12/2018 More... ILD (interstitial lung disease) (HCC) [J84.9] INVALID FOR* Status post left hip replacement [Z96.642] INVALID FOR* Encounter Status:Closed by LUI HSU MD on 04/12/18 EMERGENCY DEPARTMENT Observed: 04/04/2018 Status: F Source: [place] SUMMARY 8:[address] [facility] REPOSITORY [facility] Medical Records Department [address] [place] [address] Emergency Department Summary 04/04/181929 MR#: [id number] Acct: [id number] Name: ROSA BLACKWOOD Rep #: [id number] : 1960 57 From: Christian Hemphill PCP: Valeriano Munoz MD Status: REG ER - ER Visit Summary Date of Service: 04/04/18 Chief Complaint: Left hip pain History of Present Illness: The patient is a 57 F increasing left hip pain after sitting down at the kitchen table 0. States may be slightly bending forward. There is no falls. Status post total hip replacement March [address] 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 Doing well post surgery. Has not had her follow-up. On chronic [place]. Status post 12.5 mics of fentanyl IV. Last meal was yesterday evening. Physical Examination: General: Alert and oriented 3, moderate distress HEENT: Normocephalic, atraumatic. Moist mucosa membranes Neck: supple, nontender. Cardiovascular: Regular rate and rhythm, no murmurs Respiratory: Normal breath sounds, symmetric, no distress Abdomen: Soft, nontender, nondistended Extremities: Left lower extremity: Hip in flexion position with the knee in flexion. Did not want to move secondary to pain. Pulses were intact distally. Neuro: no focal neurological deficits. Test Results: Left hip x-ray: Superior dislocation noted. Re-x-ray: Relocated Emergency Department Course and Treatment: Patient history concerns for dislocation. Treated additional fentanyl IV. Image confirms superior dislocation. Consent made for relocation. Timeout, monitor, oxygen, pulse ox, capnography. A total of 130 mg propofol was used. Hip was relocated. Post films confirms this. Knee immobilizer placed. She has a walker. She will call her orthopedist tomorrow for follow-up. Treatment Plan: [] Disposition: Discharge Impression: 1. Left hip dislocation status post relocation 2. procedure sedation This note was generated with WeLink dictation software. It may contain incorrect words, spelling, and punctuation that were not noted in review of the chart prior to signing ED Disposition - Plan for ED Patient: Disposition: Home or Assisted Living Chief Complaint: Other, Pain/Inj Diagnosis: Hip dislocation, left Instructions: ED Hip Replace Dislocation Reduc Referrals: Valeriano Munoz MD [Primary Care Provider] - Additional Instructions: Call Dr. Loredo tomorrow for earlier follow-up. Keep on knee immobilizer. Do not over flex at the hip. What to do if you have Problems For any increased pain, shortness of breath, bleeding, nausea or vomiting, chest pain, or any unexpected problems, contact your Primary Care Provider. Call [facility] ([phone]) or report to the closest Emergency Room. Call 911 if necessary. 04/04/182056 <Electronically signed by Christian Hemphill> Date Christian Hemphill Cosigner Signature (If Indicated): Date CC: Valeriano Munoz MD HIP MIN 2 VIEWS Observed: 04/04/2018 Status: F Source: [place] (PORTABLE) 8:11 PM [facility] REPOSITORY [facility] Imaging Services [address] [place] [address] Hip Min 2 Views (Portable) MR#: [id number] Acct: [id number] Name: ROSA BLACKWOOD Rep #: [id number] : 1960 F 57 From: Vazquez Kaye MD PCP: Valeriano Munoz MD Status: DEP ER Study: Hip Min 2 Views (Portable) Date of Exam: 04/04/18 Exam# [id number] Ordering Dr: Christian Schrader DO STUDY: X-RAY - LEFT HIP REASON FOR EXAM: Female, 57 years old. Post reduction TECHNIQUE: 2 views of the hip. COMPARISON: Earlier today FINDINGS: Current study shows anatomic alignment of the left hip joint after closed reduction. No evidence of hardware complication or failure or acute fracture. RAD/Hip Min 2 Views (Portable) IMPRESSION: Anatomic alignment of the replaced left hip joint. Electronically Signed: Glenn Kaye MD at 23:00 EST , Service support , CC: Valeriano Munoz MD; Christian Schrader Certified Registered Dental Assistant: Signed HIP, UNI W/ PELVIS Observed: 04/04/2018 Status: F Source: [place] 2-3 VIEWS 7:07 PM [facility] REPOSITORY [facility] Imaging Services [address] [place] [address] HIP, UNI W/ Pelvis 2-3 Views MR#: [id number] Acct: [id number] Name: ROSA BLACKWOOD Rep #: [id number] : 1960 F 57 From: Davi Ambrose DO PCP: Valeriano Munoz MD Status: DEP ER Study: HIP, UNI W/ Pelvis 2-3 Views Date of Exam: 04/04/18 Exam# [id number] Ordering Dr: Christian Schrader DO STUDY: X-RAY - PELVIS AND LEFT HIP REASON FOR EXAM: Female, 57 years old. Dislocated hip. TECHNIQUE: 3 views of the pelvis and hip. COMPARISON: None. FINDINGS: There is a non-specific bowel gas pattern. Normal visualized soft tissue structures. There are multiple calcified phleboliths. Normal bilateral iliac wings, sacroiliac joints and visualized sacrum. Normal bilateral superior and inferior pubic rami. Normal pubic symphysis. Normal bilateral ischial tuberosities. Normal right hip. There is posterior dislocation of the left artificial hip. The prosthetic components are intact. There is no loosening of the prosthetic components from the underlying bone. There is no visualized osseous fracture. RAD/HIP, UNI W/ Pelvis 2-3 Views IMPRESSION: Posterior dislocation of a left artificial hip. Electronically Signed: Davi Ambrose DO at 22:07 EST Tel [phone], Service support , CC: Valeriano Munoz MD; Christian Schrader Certified Registered Dental Assistant: Signed XR OUTSIDE CD DICOM Observed: 04/04/2018 Status: F Source: [facility] -NBNR 12:00 AM [facility] [place] REPOSITORY Images were obtained outside of [facility] [id number] CASE MANAGEM Observed: 03/18/2018 Status: COMPLETED Source: [place] 2:57 PM [facility] REPOSITORY HNO ID: [id number] Author: Shawnee CabanRn) ECHO Segura Service: Care Management Author Type: Registered Nurse Type: Care Mgt Progress Note Filed: 03/18/2018 3:22 PM Note Text: CARE MANAGEMENT DISCHARGE NOTE SERVICE DATE: 03/18/2018 SERVICE TIME: 2:30pm LOS: 2 days Admission Date: 03/16/2018 DISCHARGE ARRANGEMENT (list agency and phone number) Home Care - PT Provider: Gomez DANIELS CAREGIVER ASSESSMENT: Caregiver is ready, willing and able to meet the patient's needs as recommended by the inter-professional team? Yes Patient's transition needs and plan for meeting these needs: yes Does the patient have an acute stroke diagnosis, or has the patient had a stroke during this admission? No HANDOFF COMMUNICATION: sent summary of care TRANSPORTATION ARRANGEMENTS: family drove ADDITIONAL CONTACT RESOURCES: SOC Thursday SIGNATURE: Shawnee Segura RN PATIENT NAME: Rosa Blackwood DATE: March 18, 2018 TIME: 3:20 PM PAGER/CONTACT #: [phone] CNDS Observed: 03/18/2018 Status: COMPLETED Source: [place] 2:57 PM [facility] REPOSITORY O ID: [id number] Author: Wendy Mckoy MD Service: Orthopaedic Surgery Author Type: Resident Type: Discharge Summaries Filed: 04/01/2018 3:57 PM Note Text: ORTHOPEDIC SURGERY DISCHARGE SUMMARY ADMISSION DATE: 03/16/2018 DISCHARGE DATE: 03/18/2018 Attending Physician: Dr. Lui Hsu Reason for Hospitalization: Left total hip arthroplasty Admitting Diagnosis: Stage Osteonecrosis Left Hip Discharge Diagnosis: Stage Osteonecrosis Left Hip s/p L RENA Additional Diagnoses: ACTIVE PROBLEM LIST Current Chronic Use of Systemic Steroids Rheumatoid Arthritis Involving Multiple Sites ([facility]) Obesity, Class I, Bmi 30-34.9 Osteonecrosis of Left Hip ([facility]) Fibromyalgia Vitamin D Deficiency Oa (Osteoarthritis) of Hip Ild (Interstitial Lung Disease) ([facility]) Status Post Left Hip Replacement Surgeries During Hospitalization: Procedure(s) (LRB): ARTHROPLASTY REPLACE JOINT TOTAL HIP (Left) Procedures During Hospitalization: Left total hip arthroplasty Consultations: Physical Therapy Case Management Occupational Therapy Pharmacy Hospital Course: Ms. Blackwood is 57-year-old woman with the history of rheumatoid arthritis diagnosed 5 years ago and was on 3 years of prednisone. She presented with a significant increase in right hip pain beginning in November and rapid progression of pain and disability in the past 4 weeks. She was able to stand and walk for only 20 or 30 feet despite use of walker or cane and suffered profound collapse of the left femoral head secondary to osteonecrosis with subluxation near dislocation at this point. Patient was electively admitted on 03/16/2015 and underwent a left total hip arthroplasty. The procedure was tolerated well and she was sent to the post operative recovery room in stable condition, where she also did well. Post operative x-rays in the recovery room showed appropriate positioning of the components. She was subsequently sent to her hospital room for postoperative management. Once on the floor her postoperative course was unremarkable and she did well. Her diet was advanced which she tolerated. Her pain was well controlled on oxycodone. She worked with Physical and Occupational Therapy starting on POD#1 who recommended she be discharged home with home PT. She remained afebrile with stable vital signs throughout her stay. She was stable for discharge to home on POD#2. Complete and comprehensive discharge instructions were provided to the patient as well as necessary prescriptions. The patient had no further questions and was advised to call with any questions, concerns, or problems. Patient was hemodynamically stable postoperatively. Relevant labs included: Hemoglobin (g/dL) Date Value 03/17/2018 8.5 (L) 03/16/2018 9.3 (L) 03/16/2018 11.1 (L) Hematocrit (%) Date Value 03/17/2018 27.1 (L) 03/16/2018 29.8 (L) 03/16/2018 34.8 (L) Discharge Antibiotics: None Prior to surgery the patient was treated with antibiotics and continued with antibiotics 24 hours postoperatively Transfers: PACU and then to the hospital surgical floor when PACU criteria was met. DVT Prophylaxis: Sequential Compression Devices, ASA 81 mg BID Complications: Continued throughout the hospital course without complications. Patient Condition @ Discharge: Stable Discharge Disposition: Home with Home Health Care Other Information: None Discharge Activity/Weight Bearing Status: 75% weight bearing The patient was instructed to follow-up as indicated below: Future Appointments Date Time Provider Department Center 04/19/2018 2:20 PM ORTH GENERAL XRAY A21 [facility] RADIO A BLDG 04/19/2018 3:30 PM Lui ALVARESMN ORTH A AND NA 10/21/2018 3:40 PM Sukumar [facility] Solo In accordance to [facility] guidelines, this serves as official documentation that this patient had a major orthopaedic surgery in the past 3 months. The aforementioned documentation in this note and previous notes and/or operative reports serves as documentation as to the condition. It is appropriate for this patient to be prescribed narcotic medication because of these scenarios extending greater than the allotted MED requirement or 7 day limit. Discharge Medications: Discharge Medication List as of 03/18/2018 1:29 PM START taking these medications docusate sodium (COLACE) 100 mg capsule Take 1 capsule by mouth twice daily. Print RX, Disp-60 capsule, R-0 oxyCODONE IR (ROXICODONE) 5 mg immediate release tablet Take 1 tablet by mouth every 4 hours as needed for Pain for up to 7 days. Print RX, Disp-42 tablet, R-0 Dx: 1. Status post left hip replacement aspirin, enteric coated (ASPIRIN, ENTERIC COATED) 81 mg EC tablet Take 1 tablet by mouth twice daily for 28 days. Print RX, Disp-56 tablet, R-0, Long-term ascorbic acid, vitamin C, (VITAMIN C) 500 mg tablet Take 1 tablet by mouth once daily. Print RX, Disp-30 tablet, R-0, Long-term acetaminophen (TYLENOL) 500 mg tablet Take 2 tablets by mouth every 8 hours as needed for Pain. OTC CONTINUE these medications which have NOT CHANGED COMPOUNDED PRESCRIPTION Krill Oil 1 cap DA Historical Med pentosan polysulfate sodium (ELMIRON ORAL) Take 1 tablet by mouth three times daily. Historical Med amLODIPine (NORVASC) 5 mg tablet Take 5 mg by mouth once daily. Historical Med, Long-term sulfamethoxazole-trimethoprim (BACTRIM DS,SEPTRA DS) 800-160 mg per tablet Take by mouth. Mon, wed, fri Historical Med predniSONE (DELTASONE) 10 mg tablet Take 10 mg by mouth once daily. Historical Med buPROPion XL (WELLBUTRIN XL) 300 mg 24 hr tablet Take 300 mg by mouth once daily. Historical Med DULoxetine (CYMBALTA) 60 mg capsule Take 60 mg by mouth once daily. Historical Med azaTHIOprine (IMURAN) 50 mg tablet Take 50 mg by mouth three times daily. 3 tabs daily Historical Med, Long-term lidocaine (LIDODERM) 5 % Apply 1 Patch as directed as needed. Historical Med diclofenac sodium (VOLTAREN) 1 % topical gel Apply to affected area four times daily. Historical Med [id number] ORAL Take by mouth once daily. Historical Med, Long-term UBIDECARENONE (CO Q-10 ORAL) Take by mouth once daily. Historical Med ibuprofen (MOTRIN) 400 mg tablet Take 400 mg by mouth every 6 hours as needed. Historical Med LOSARTAN POTASSIUM (LOSARTAN ORAL) Take by mouth. Historical Med PREGABALIN (LYRICA ORAL) Take 75 mg by mouth. 2 capsules Historical Med OMEPRAZOLE (PRILOSEC ORAL) Take 40 mg by mouth twice daily. Historical Med PROGESTERONE MISC Historical Med ZOLPIDEM TARTRATE (AMBIEN ORAL) Take 12.5 mg by mouth. Historical Med STOP taking these medications HYDROCODONE/ACETAMINOPHEN (NORCO ORAL) Comments: Reason for Stopping: SIGNATURE: Wendy Mckoy MD PATIENT NAME: Rosa Blackwood DATE: April 01, 2018 TIME: 3:51 PM PAGER: [phone] PLAN OF CARE Observed: 03/18/2018 Status: COMPLETED Source: [place] 2:11 PM [facility] REPOSITORY HNO ID: [id number] Author: Elle Chaney (Roof Technician) Service: (none) Author Type: (none) Type: Plan of Care Filed: 03/18/2018 2:13 PM Note Text: PHARMACY BEDSIDE DELIVERY SERVICE Patient Name: Rosa Blackwood The marked outpatient medications were Filled at: [facility] and delivered to the patient's bedside to patient Medication List START taking these medications acetaminophen 500 mg tablet Patient did not want filled here. Commonly known as: TYLENOL Take 2 tablets by mouth every 8 hours as needed for Pain. ascorbic acid (vitamin C) 500 mg tablet X delivered Commonly known as: VITAMIN C Take 1 tablet by mouth once daily. aspirin, enteric coated 81 mg EC tablet X delivered Commonly known as: ASPIRIN, ENTERIC COATED Take 1 tablet by mouth twice daily for 28 days. docusate sodium 100 mg capsule Patient did not want filled here Commonly known as: COLACE Take 1 capsule by mouth twice daily. oxyCODONE IR 5 mg immediate release tablet X delivered Commonly known as: ROXICODONE Take 1 tablet by mouth every 4 hours as needed for Pain for up to 7 days. CONTINUE taking these medications AMBIEN ORAL amLODIPine 5 mg tablet Commonly known as: NORVASC azaTHIOprine 50 mg tablet Commonly known as: IMURAN buPROPion XL 300 mg 24 hr tablet Commonly known as: WELLBUTRIN XL [id number] ORAL CO Q-10 ORAL COMPOUNDED PRESCRIPTION diclofenac sodium 1 % topical gel Commonly known as: VOLTAREN DULoxetine 60 mg capsule Commonly known as: CYMBALTA ELMIRON ORAL ibuprofen 400 mg tablet Commonly known as: MOTRIN LIDODERM 5 % Generic drug: lidocaine LOSARTAN ORAL LYRICA ORAL predniSONE 10 mg tablet Commonly known as: DELTASONE PRILOSEC ORAL PROGESTERONE MISC sulfamethoxazole-trimethoprim 800-160 mg per tablet Commonly known as: BACTRIM DS,SEPTRA DS You might also be taking other medications not listed above. If you have questions about any of your other medications, talk to the person who prescribed them or your Primary Care Provider. STOP taking these medications NORCO ORAL Elle Chaney (Roof Technician) PAGER: [phone] March 18, 2018 2:11 PM THERAPY NT Observed: 03/18/2018 Status: COMPLETED Source: [place] 12:21 PM [facility] REPOSITORY HNO ID: [id number] Author: Yvette Esparza Service: Physical Therapy Author Type: Remote Control Mirror Installer Type: Therapy (PT/OT/Speech/Resp) Filed: 03/18/2018 12:26 PM Note Text: Attestation signed by Sukumar Moser at 03/19/2018 7:25 AM I reviewed and agree with the documentation corresponding to this therapy visit. SIGNATURE: Sukumar Moser, PT DATE: March 19, 2018 TIME: 7:25 AM Physical Therapy Treatment SERVICE DATE: 03/18/2018 SERVICE TIME: 1054 to 1147 ROOM: [facility] Recommended Discharge Disposition: Home PT Anticipated Discharge Needs: Physical Assist at Home;Equipment Physical Assist at Home for: Cleaning;Laundry;Meals;Transportation;Shopping;Self Care Recommended Discharge Equipment: Wheeled Walker PT Recommendations to Nursing: Ambulate with device;In halls;With assist of 1 person Device: Wheeled Walker PT 6 Clicks Score: 24 Precautions/Activity Restrictions: Total Hip Replacement;Weight Bearing Restrictions Extremity With Weight Bearing Restricted: Left Lower Extremity Left Lower Extremity Weight Bearing Status: Other: See Comment (70% WB) Total Hip Replacement Precautions: Posterior ASSESSMENT : Pt demonstrated safe mobility on stairs and with car transfers. Pt also had concerns about getting in/out of her bed at home d/t soft mattress and high bed height. Went over bed mobility with pt raising bed to height of pt's bed at home. Pt performed well. May need assist of family as needed for bed mobility and car transfers. Pt is safe to d/c home from a PT standpoint. Patient Disposition at Start of Session: Supine in Bed Patient Disposition at End of Session: Supine in Bed Tolerated Full Session Physical Therapy Problem List: Pain;Decreased Strength;Functional Mobility Impairment;Balance Impaired Patient /Caregiver Goals: Walk;Go Home Goals for Plan of Care: Able to perform HEP with: Independent Rolling with: Independent Transfer supine to/from sit with: Independent Transfer sit to/from stand with: Modified Independent Ambulate with: Modified Independent Distance: 150 Device: Wheeled Walker Ambulate up and down curb step with: Modified Independent Device: Wheeled Walker Ambulate up and down steps with: Modified Independent Number of steps: 6 Device: Rail Car transfer with: Modified Independent Progress Toward Goals: Progressing as expected Rehab Potential: Excellent PLAN: Treatment Frequency (times per week): BID Current admission Treatment Interventions: Education;Strengthening;Functional Mobility Training;Balance Training;Neuromuscular Re-education Plan of Care developed with: Patient TREATMENT INTERVENTIONS: Therapy Diagnosis: Reduced mobility-other Interventions Provided: Therapeutic Activity (42653);Gait Training (11867) Therapeutic Activity (99870) Treatment Minutes: 30 2 units Skilled Intervention(s): Instructed patient in supine to sit pushing with upper extremities to sit up. Instruction for technique and use of leg criminal research specialist. Instructed patient in sit to supine using safe, effective technique. Raised bed to pt's bed height at home. Also instructed pt in technique for use of foot stool to get into bed using backwards ascension with support of wheeled walker. Pt performed safely. Instruction in sit to stand technique with proper hand placement and body positioning at edge of bed/chair Instruction in stand to sit technique with lower extremities touching chair/bed and reaching back for surface Education with RENA precautions. Instructed in car transfer including seat positioning, technique, hand placement, and maintenance of RENA precautions during transfer. Gait Training (55204) Treatment Minutes: 23 2 units Skilled Intervention(s): Instruction in sequencing, gait pattern, Instruction in correction of gait deviations, Instruction in WB precautions and Instruction in stair negotiation. Frequent cueing during amb for increased B step length with increased L heel strike. Pt instructed in sequencing on steps with 1 HR and cane. Pt performed safely x 2 trials. Cueing initially for proper sequencing and placement of cane. Total Timed Code Treatment Minutes: 53 Total Treatment Time (minutes): 53 FUNCTIONAL G CODE: PT 6 Clicks Score: 24 (03/18/18 1054) Mobility: Walking and Moving Around Current Status (G8978): CK (03/16/18 1334) Mobility: Walking and Moving Around Goal Status (G8979): CJ (03/16/18 1334) Based on clinical assessment and the score on the 6 Clicks Functional Assessment Tool, the G code and corresponding severity modifiers are documented above. SUBJECTIVE: Current Hospital Course: Chart reviewed and no significant medical updates relevant to therapy were noted Reason for Physical Therapy Consult : gait training Patient Report: No new complaints. Home Environment Patient Lives With: Significant Other Assistance Available: 24 Hour Entry To Home: Stairs Number Of Stairs Into Home: 2 Number Of Stairs To Bed/Bath: 6 Stairs to Bed/Bath with: Unilateral Rail Equipment Owned: Cane;Wheeled Walker Prior Functional Level: Required Assistance Assistance Required With: Cleaning;Laundry;Meals;Shopping Prior Functional Level Comments: Using the walker d/t hip pain, denies falls OBJECTIVE: CURRENT FUNCTIONAL STATUS: Current Functional Mobility Assist Level Additional Information Rolling Stand By Assistance Supine to Sit Supervision Sit to Supine Supervision Scooting Stand By Assistance Sit to Stand Supervision Stand to Sit Supervision Bed to Chair Stand By Assistance Bed To Chair Transfer Type: Stand Pivot Bed To Chair Transfer Equipment: Wheeled Walker Toilet/Commode Stand By Assistance Gait Supervision Gait Device: Wheeled Walker Gait Distance (feet): 30' x 2, 40' x 1 Stairs Supervision Stairs Device: Cane;Rail Number of Stairs: 8 Curb Step Car Transfer Minimal Assistance Gait Deviations Left Lower Extremity: Weight bearing decreased;Stance time decreased;Heel strike during initial stance decreased;Step length decreased General Gait Deviations: Antalgic gait pattern Balance: Static Sitting;Dynamic Sitting;Static Standing;Dynamic Standing Static Sitting Balance: Independent Dynamic Sitting Balance: Independent Static Standing Balance: Contact Guard Assistance Dynamic Standing Balance: Contact Guard Assistance Please see discipline specific clinical documentation flowsheet for complete details for this therapy evaluation/treatment. SIGNATURE: Yvette Esparza PTA PATIENT NAME: Rosa Blackwood DATE: March 18, 2018 TIME: 12:21 PM CASE MANAGEM Observed: 03/18/2018 Status: COMPLETED Source: [place] 11:58 AM [facility] REPOSITORY HNO ID: [id number] Author: Krystle Hernández (Asst) Service: Care Management Author Type: Resource Center Neckties Painter Type: Care Mgt Progress Note Filed: 03/18/2018 12:00 PM Note Text: CARE MANAGEMENT PROGRESS NOTE SERVICE DATE: 03/18/2018 SERVICE TIME: 11:16 LOS: 2 days IM letter given to patient on 03/18/18. SIGNATURE: Asst Rebeka PATIENT NAME: Rosa Blackwood DATE: March 18, 2018 TIME: 11:59 AM PAGER/CONTACT #: [phone] PLAN OF CARE Observed: 03/18/2018 Status: COMPLETED Source: [place] 11:32 AM [facility] REPOSITORY HNO ID: [id number] Author: Elle Chaney (Anafore) Service: (none) Author Type: (none) Type: Plan of Care Filed: 03/18/2018 11:32 AM Note Text: Pharmacy Discharge Medication Service: This patient has elected to receive their discharge prescriptions through the [facility] Bedside Prescription Delivery program. The prescriptions are currently being processed. A follow-up note will be entered once the prescriptions have been filled and delivered to the patient. Please contact me with any questions or updates to the patient's discharge medications. Elle Chaney (Anafore) DCT Contact Info: [phone] PLAN OF CARE Observed: 03/18/2018 Status: COMPLETED Source: [place] 8:48 AM [facility] REPOSITORY HNO ID: [id number] Author: Elle Chaney (Roof Technician) Service: (none) Author Type: (none) Type: Plan of Care Filed: 03/18/2018 1:15 PM Note Text: REWARDS CONSULTANT BEDSIDE DELIVERY SURVEY 1. Patient to use [facility] Bedside Delivery - YES 2. If fax, patient would like us to fax prescriptions to Pharmacy of choice a. Pharmacy: b. Location: c. Phone: 3. Insurance card on file - YES 4. Credit card for payment - NO Per ECHO Scott patient does not want tylenol or colace filled here. Spoke with patient and she needs to wait for to come with form of payment. 1:13p is not here yet. Asked ECHO Romero [phone] to page me when he comes. He has form of payment. PROGRESS Observed: 03/18/2018 Status: COMPLETED Source: [place] 6:27 AM [facility] REPOSITORY HNO ID: [id number] Author: Wendy Mckoy MD Service: Orthopaedic Surgery Author Type: Resident Type: Progress Notes Filed: 03/18/2018 6:31 AM Note Text: ORTHOPAEDIC SURGERY PROGRESS NOTE A/P: 57 year old female POD#2 s/p left RENA due to stage osteonecrosis of the left hip. - Pt neurovascularly intact - Antibiotics:: Vanco x 24 hours perioperatively - DVT prophylaxis - SCDs, ASA 81 BID - Activity: 75% weight bearing - Pain - PO and IV breakthrough - Received oxycodone 10 mg and morphine for breakthrough pain - Regualr diet - MIVF w/ LR 75 mL/hr; continued given low PO intake (improved compared to yesterday) - HLIV when tolerating sufficient PO - No ovalle - PT/OT consult - PT rec for home PT - CM consult - referral sent, awaiting acceptance - Wound: Aquacell C/D/I - to be removed POD7 - Imaging: obtained in the PACU, appropriate placement of components - Hb 8.5, no indication for transfusion at this time - Hb trending down, will continue to monitor - BMP WNL - Dispo: Pt to DC home pending home health care Rounding: Subjective No overnight issues Requesting to go home today Pain controlled on oxycodone 10 mg, patient also received morphine for breakthrough pain AFVSS Denies any N/V/CP/SOB Objective Blood pressure 103/55, pulse 90, temperature 37.2 ?C (99 ?F), temperature source Oral, resp. rate 18, height 160 cm (5' 2.99), weight 79 kg (174 lb 2.6 oz), last menstrual period 08/18/2006, SpO2 96 %. Physical Exam AAOx3, NAD Breathing comfortably at rest RRR to peripheral palpation Left Lower Extremity: - Dressing: aquacell C/D/I - Motor: 09/05 ankle PF/DF/EHL - Sensory: SILT throughout s/s/sp/dp/t - 2+ DP/PT pulses, CR<2s Labs: CBC: Recent Labs 03/17/18222003/16/18 2309 03/16/18 1430 WBC 7.53 6.43 6.43 HB 8.5* 9.3* 11.1* HCT 27.1* 29.8* 34.8* PLT 279 304 360 MCV 92.8 91.4 90.9 RDWCV 16.9* 16.8* 16.8* COAG: No results for input(s): APTT, INR in the last 168 hours. BMP: Recent Labs 03/17/18222003/16/18 2309 GLUC 106* 100* NA 142 142 K 3.9 4.5 CHLOR 104 105 CO2 24 25 ANION 14 12 BUN 13 15 CREAT 0.89 0.90 CHEM: Recent Labs 03/17/18222003/16/18 2309 CA 8.6 9.3 URINALYSIS:No results for input(s): PH, SPGR, UGLUC, UBILI, UKET, UHB, UPROT, UROBIL, UWBC, SSA in the last 168 hours. Invalid input(s): NITR CRP: CRP (mg/dL) Date Value 03/08/2018 0.2 ESR: WSR (mm/hr) Date Value 03/08/2018 31 (H) Please scroll above for Assessment AND Plan. --- Wendy Mckoy MD Orthopedic Surgery, PGY1 Pager: [phone] If urgent, page 2-BONE BASIC METABOLIC PANL Collected: 03/17/2018 Status: F Source: [place] 10:21 PM [facility] REPOSITORY TYPE CODE TESTS RESULT OUT OF REFERENCE UNITS RANGE LAB GLU 74-99 mg/dL High Glucose 106 Result Comment: The [place] [employer] (ADA) provides guidance for cutoff values for fasting glucose and random glucose. The ADA defines fasting as no caloric intake for at least 8 hours. Fas ting plasma glucose results between 100 to 125 mg/dL indicate increased risk for diabetes (prediabetes). Fasting plasma glucose results greater than or equal to 126 mg/dL meet the criteria for diagnosis of diabetes. In the absence of unequivocal hyperglycemia, results should be confirmed by repeat testing. In a patient with classic symptoms of hyperglycemia or hyperglycemic crisis, random plasma glucose results greater than or equal to 200 mg/dL meet the criteria for diagnosis of diabetes. Reference: Standards of Medical Care in Diabetes 2016, [place] [employer]. Diabetes Care. 2016.39(Suppl 1). LAB BUN 7-21 mg/dL BUN 13 LAB CRET 0.58-0.96 mg/dL Creatinine 0.89 LAB NA 136-144 mmol/L Sodium 142 LAB K 3.7-5.1 mmol/L Potassium 3.9 LAB CL 97-105 mmol/L Chloride 104 LAB CO2 22-30 mmol/L CO2 24 LAB AGAP 9-18 mmol/L Anion Gap 14 LAB CA 8.5-10.2 mg/dL Calcium, Total 8.6 LAB GFRAA eGFR- Amer. >60 LAB GFRNAA . eGFR-All Other Races >60 Result Comment: eGFR (Estimated GFR) Units of measure: mL/min/1.73 meters squared eGFR is derived from the reexpressed MDRD Study equation using the following parameters: serum creatinine, age, gender and race. The creatinine assay has been calibrated to be traceable to IDMS. An eGFR <60 mL/min/1.73m2 for >3 months is consistent with chronic kidney disease. Refer to KDOQI guidelines for clinical interpretation. In patients with unstable renal function, e.g. those with acute kidney injury, the eGFR may not accurately reflect actual GFR. Performed By: #### BMP, CBC #### [facility] [address] [place], [place] [address] CBC Collected: 03/17/2018 Status: F Source: [place] 10:21 PM [facility] REPOSITORY TYPE CODE TESTS RESULT OUT OF REFERENCE UNITS RANGE LAB WBC 3.70-11.00 k/uL WBC 7.53 LAB RBC 3.90-5.20 m/uL Low RBC 2.92 LAB HGB 11.5-15.5 g/dL Low Hemoglobin 8.5 LAB HCT 36.0-46.0 % Low Hematocrit 27.1 LAB MCV 80.0-100.0 fL MCV 92.8 LAB MCH 26.0-34.0 pG MCH 29.1 LAB MCHC 30.5-36.0 g/dL MCHC 31.4 LAB RDWCV 11.5-15.0 % RDW-CV High 16.9 LAB PLTCT 150-400 k/uL Platelet Count 279 LAB MPV 9.0-12.7 fL MPV 10.8 LAB ABSNUC <0.01 k/uL Absolute nRBC <0.01 Performed By: #### BMP, CBC #### [facility] [address] [place], [place] [address] THERAPY NT Observed: 03/17/2018 Status: COMPLETED Source: [place] 4:29 PM [facility] REPOSITORY HNO ID: [id number] Author: Porsha Nassar Service: Physical Therapy Author Type: Remote Control Mirror Installer Type: Therapy (PT/OT/Speech/Resp) Filed: 03/17/2018 4:35 PM Note Text: Attestation signed by Sukumar Moser at 03/19/2018 7:24 AM I reviewed and agree with the documentation corresponding to this therapy visit. SIGNATURE: Sukumar Moser, PT DATE: March 19, 2018 TIME: 7:24 AM Physical Therapy Treatment SERVICE DATE: 03/17/2018 SERVICE TIME: 1605 to 1625 ROOM: [place] [address] Recommended Discharge Disposition: Home PT Anticipated Discharge Needs: Physical Assist at Home;Equipment Physical Assist at Home for: Cleaning;Laundry;Meals;Transportation;Shopping;Self Care Recommended Discharge Equipment: Wheeled Walker PT Recommendations to Nursing: Ambulate with device;In halls;With assist of 1 person Device: Wheeled Walker PT 6 Clicks Score: 19 Precautions/Activity Restrictions: Total Hip Replacement;Weight Bearing Restrictions Extremity With Weight Bearing Restricted: Left Lower Extremity Left Lower Extremity Weight Bearing Status: Other: See Comment (70% WB) Total Hip Replacement Precautions: Posterior ASSESSMENT : Patient presents with increased fatigue this PM. Pt declined further ambulation due to fatigue. Pt will benefit from Home PT for safe progression of therapeutic exercise in order to regain mobility and strength for improved mobility Patient Disposition at Start of Session: Supine in Bed;Call Anne in Reach Patient Disposition at End of Session: OOB in Chair;Call Anne in Reach Tolerated Full Session Physical Therapy Problem List: Pain;Decreased Strength;Functional Mobility Impairment;Balance Impaired Patient /Caregiver Goals: Walk;Go Home Goals for Plan of Care: Able to perform HEP with: Independent Rolling with: Independent Transfer supine to/from sit with: Independent Transfer sit to/from stand with: Modified Independent Ambulate with: Modified Independent Distance: 150 Device: Wheeled Walker Ambulate up and down curb step with: Modified Independent Device: Wheeled Walker Ambulate up and down steps with: Modified Independent Number of steps: 6 Device: Rail Car transfer with: Modified Independent Rehab Potential: Excellent PLAN: Treatment Frequency (times per week): BID Current admission Treatment Interventions: Education;Strengthening;Functional Mobility Training;Balance Training;Neuromuscular Re-education Plan of Care developed with: Patient TREATMENT INTERVENTIONS: Therapy Diagnosis: Reduced mobility-other Interventions Provided: Gait Training (22528) Gait Training (15102) Treatment Minutes: 15 1 unit Skilled Intervention(s): Instruction in sit to stand technique with proper hand placement and body positioning at edge of bed/chair, Instruction in stand to sit technique with LE's touching chair/bed and reaching back for surface, Instruction in sequencing, gait pattern and Instruction in correction of gait deviations. Pt performed supine to sit transfer with SBA and vcs for set up. Performed sit to/from stand with SBA and vcs for set up.Pt performed gait training with RW for 50' with SBA and vcs for sequencing and safety with turns. Skilled intervention provided for line management and monitoring of physiological response to activity dosing. Total Timed Code Treatment Minutes: 15 Total Treatment Time (minutes): 20 FUNCTIONAL G CODE: PT 6 Clicks Score: 19 (03/17/18 1605) Mobility: Walking and Moving Around Current Status (G8978): CK (03/16/18 1334) Mobility: Walking and Moving Around Goal Status (G8979): CJ (03/16/18 1334) Based on clinical assessment and the score on the 6 Clicks Functional Assessment Tool, the G code and corresponding severity modifiers are documented above. SUBJECTIVE: Current Hospital Course: Chart reviewed and no significant medical updates relevant to therapy were noted Reason for Physical Therapy Consult : gait training Patient Report: I'm not feeling very well Home Environment Patient Lives With: Significant Other Assistance Available: 24 Hour Entry To Home: Stairs Number Of Stairs Into Home: 2 Number Of Stairs To Bed/Bath: 6 Stairs to Bed/Bath with: Unilateral Rail Equipment Owned: Cane;Wheeled Walker Prior Functional Level: Required Assistance Assistance Required With: Cleaning;Laundry;Meals;Shopping Prior Functional Level Comments: Using the walker d/t hip pain, denies falls OBJECTIVE: CURRENT FUNCTIONAL STATUS: Current Functional Mobility Assist Level Additional Information Rolling Stand By Assistance Supine to Sit Stand By Assistance Sit to Supine Contact Guard Assistance Scooting Stand By Assistance Sit to Stand Stand By Assistance Stand to Sit Stand By Assistance Bed to Chair Stand By Assistance Bed To Chair Transfer Type: Stand Pivot Bed To Chair Transfer Equipment: Wheeled Walker Toilet/Commode Stand By Assistance Gait Stand By Assistance Gait Device: Wheeled Walker Gait Distance (feet): 50' Stairs Curb Step Car Transfer General Gait Deviations: Antalgic gait pattern Balance: Static Sitting;Dynamic Sitting;Static Standing;Dynamic Standing Static Sitting Balance: Independent Dynamic Sitting Balance: Independent Static Standing Balance: Contact Guard Assistance Dynamic Standing Balance: Contact Guard Assistance Please see discipline specific clinical documentation flowsheet for complete details for this therapy evaluation/treatment. SIGNATURE: Porsha Nassar PTA PATIENT NAME: Rosa Blackwood DATE: March 17, 2018 TIME: 4:29 PM THERAPY NT Observed: 03/17/2018 Status: COMPLETED Source: [facility] 11:50 AM [facility] REPOSITORY HNO ID: [id number] Author: DEANNE Meneses/L Service: Occupational Therapy Author Type: Occupational Therapist Type: Therapy (PT/OT/Speech/Resp) Filed: 03/17/2018 11:59 AM Note Text: Occupational Therapy Evaluation SERVICE DATE: 03/17/2018 SERVICE TIME: 1045 to 1138 ROOM: [place] [address] Recommended Discharge Disposition: Home Anticipated Discharge Needs: Physical Assist at Home;Equipment Physical Assist at Home for: Cleaning;Laundry;Meals;Transportation;Shopping;Self Care Recommended Discharge Equipment: Sock Aide OT Recommendations to Nursing: To Bathroom for ADL?s /and or Toileting;OOB for meals;With assist of 1 person Equipment: Wheeled Walker OT 6 Clicks Score: 19 Precautions/Activity Restrictions: Total Hip Replacement;Weight Bearing Restrictions Extremity With Weight Bearing Restricted: Left Lower Extremity Left Lower Extremity Weight Bearing Status: Other: See Comment (70% WB) Total Hip Replacement Precautions: Posterior ASSESSMENT: Patient presents with impaired Functional Mobility and Activity Tolerance and ADLs. Anticipate that patient will be safe to return home from an OT perspective with spouses assist. Pt does not require any further skilled therapy during hospital stay since she has received all needed OT instruction today and she does not have any more OT goals to address. Patient Disposition at Start of Session: Supine in Bed;Call Anne in Reach;SCDs Patient Disposition at End of Session: Supine in Bed;Call Anne in Reach;SCDs Tolerated Full Session Occupational Therapy Problem List: Education Deficit;Impaired Self Care;Decreased Activity Tolerance;Functional Mobility Impairment Patient /Caregiver Goals: Go Home Goals for Plan of Care: Grooming with: Supervision (standing with WW) Lower Body Dressing with: Stand By Assistance (with AE) Toilet Transfer with: Stand By Assistance Additional Goal 1: bed mobility with mod I Additional Goal 2: ambulate household distances with WW with SBA Demonstrate Competence With Education with: Verbal Cues Only Goals MET at the end of the session Rehab Potential: Good PLAN: Treatment Frequency (times per week): Discontinue Therapy Services Reasons Therapy Services Discontinued: Goals met Treatment Interventions: Education;Self Care / Home Management;Energy Conservation Training;Functional Mobility Training Plan of Care developed with: Patient TREATMENT INTERVENTIONS: Therapy Diagnosis: Reduced mobility-other;Decreased activities of daily living (ADL) Interventions Provided: Evaluation;Therapeutic Activity (22133);Self Nursing Home Management (60655) $ Evaluation-Low (66606) Billed Units: 1 unit Therapeutic Activity (56496) Treatment Minutes: 15 1 unit Skilled Intervention(s): Educated pt on role of OT, POC and recs. Educated on post op hip precs; WB status and application of such to ADL's and functional mobility. Pt provided with booklet which was reviewed in detail Bed mobility-pt educated on technique and sequencing. Pt issued leg criminal research specialist to manage surgical leg, educated on use of such while adhering to post op hip precs. Pt practiced using leg criminal research specialist for elevated supine<>sit. Cues provided for proper tech. Functional mobility-pt ambulated with WW in prep for household ambulation, cues provided for walker safety/seq/tech. Functional [id number] instructed to push with UE's from stable surface versus pulling on walker. Instructed to feel surface posterior to legs prior to reaching back with UE's in prep for sitting. Pt cued for surgical leg positioning during such transfer. Pt adhering to WB status, reinforced bearing down with UE's through walker to support WB restrictions. Self Nursing Home Management (41909) Treatment Minutes: 23 2 units Skilled Intervention(s): Pt educated on pacing techniques, discussed benefits of such. Grooming in standing at sink side with walker-pt instructed to bring walker close to counter top, to lean body against counter and to place hands on counter surface versus on walker to promote safety. Pt performed safely. Educated on LB ADL techniques. Educated on straight leg tech for LB ADL's with instruction to dress surgical leg first and undress such last. Educated on use of vice president business development and sock aid. Pt practiced donning/doffing LB clothing with AE 2 trials to ensure adherence to post op hip precs. Pt provided with cues as needed. Educated on purchase info for sock aid. Discussed AE and DME for home setting to promote safety and indep with ADL's. Total Timed Code Treatment Minutes: 38 Total Treatment Time (minutes): 53 FUNCTIONAL G CODE: OT 6 Clicks Score: 19 (03/17/18 104) Self Care Current Status (G8987): CK (03/17/18 104) Self Care Goal Status (G8988): CJ (03/17/18 104) Self Care Discharge Status (G8989): CJ (03/17/181044) Based on clinical assessment and the score on the 6 Clicks Functional Assessment Tool, the G code and corresponding severity modifiers are documented above. SUBJECTIVE: Current Hospital Course: 57 year old female POD#1 s/p left RENA due to stage osteonecrosis of the left hip. Reason for Occupational Therapy Consult: ADL's Patient Report: I ordered loose clothing. Home Environment Patient Lives With: Significant Other Assistance Available: 24 Hour Entry To Home: Stairs Number Of Stairs Into Home: 2 Number Of Stairs To Bed/Bath: 6 Stairs to Bed/Bath with: Unilateral Rail Equipment Owned: Cane;Wheeled Walker Prior Functional Level: Required Assistance Assistance Required With: Cleaning;Laundry;Meals;Shopping Prior Functional Level Comments: Using the walker d/t hip pain, denies falls OBJECTIVE: CURRENT FUNCTIONAL STATUS: Current Activities of Daily Living Assist Level Feeding Independent Grooming Stand By Assistance (standing at sink with WW) Bathing Upper Body Set Up Bathing Lower Body Moderate Assistance Dressing Upper Body Set Up Dressing Lower Body Maximal Assistance Toileting Stand By Assistance Instrumental Activities of Daily Living Assist Level Meal/Beverage Prep Light Cleaning Laundry Medication Management with Strategies Functional Mobility Assist Level Rolling Supine to Sit Minimal Assistance Sit to Supine Minimal Assistance Scooting Stand By Assistance Sit to Stand Contact Guard Assistance Stand to Sit Contact Guard Assistance Bed to Chair Contact Guard Assistance Toilet/Commode Contact Guard Assistance Functional Mobility Contact Guard Assistance Wheeled Walker Please see discipline specific clinical documentation flowsheet for complete details for this therapy evaluation/treatment. SIGNATURE: DEANNE Meneses/Fabby PATIENT NAME: Rosa Blackwood DATE: March 17, 2018 TIME: 11:50 AM CASE MGT INIT Observed: 03/17/2018 Status: COMPLETED Source: [facility] 11:25 AM [facility] [place] REPOSITORY HNO ID: [id number] Author: Jagruti (Rn) ECHO Rod Service: Case Management Author Type: Registered Nurse Type: Care Mgt Initial Assessment Filed: 03/17/2018 4:10 PM Note Text: CARE MANAGEMENT: ASSESSMENT AND DISCHARGE PLAN SERVICE DATE: 03/17/2018 SERVICE TIME: 10:15am PRIMARY CARE PHYSICIAN: Valeriano Munoz MD ADMISSION STATUS: Inpatient Needs Prior to Discharge: Accepting Facility;Facility or Agency Choices;Home Care Order 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 No Advance Directive: Current Advance Directive: None Padder Attempted to Assist with AD Completion: Yes Action: (patient states is on AD) Health Literacy: 1. How often do you need to have someone help you when you read instructions, pamphlets, or other written material from your doctor or pharmacy? Never - 1 2. How confident are you filling out medical forms by yourself? Extremely - 1 If Patient scores > 3 on either question, the following interventions were put into place: Patient did not score > 3 FUNCTIONAL AND COGNITIVE/BEHAVIORAL PRIOR TO ADMISSION: Baseline Mental Status: Alert AND Oriented, Person, Place , Time and Situation Functional Status: Independent Does Patient Currently Receive Any Community Services or Home Care? None Equipment Prior to Admission: Cane - Straight Elevated toilet seat Tub bench/chair Walker lift chair Has the Patient Been in a Correction Facility in the Past 30 days? No SOCIAL: Living Arrangement: Home Lives With: Spouse Financial Resources: Disabled Primary Contact: Extended Emergency Contact Information Primary Emergency Contact: Sagrario Blackwood Address[address] [address] [place], [place] [id number] Mobile Relation: Spouse Supportive: Yes Other Important Patient Contacts: None Caregiver Assessment: Caregiver is ready, willing and able to meet the patient's needs as recommended by the inter-professional team? Yes Patient's transition needs and plan for meeting these needs: [facility] Does the patient have an acute stroke diagnosis, or has the patient had a stroke during this admission? No Medication Adherence: I am convinced of the importance of my prescription medication: Agree mostly - 0 I worry that my prescription medication will do more harm than good to me Disagree mostly - 0 I feel financially burdened by my [id number] expenses for my prescription medication: Disagree mostly -0 Patient is categorized as low risk < 2 Are you interested in bedside delivery of your medications? Yes Food Concerns: In the Last Month, Have You had Trouble Getting Food? No trouble getting food During the Last Month, Have You Worried Whether Your Food Would Run Out Before You Had Enough Money to Buy More? No Is the Patient Psychosocially Complex? No ASSESSMENT AND PLAN: Medical Needs: 2 or more chronic diseases and Obesity Psychosocial Needs: None FREEDOM OF CHOICE EXPLAINED: Yes Met with patient at bedside The patient and/or family has been given the Provider List: Yes Provider List: Home Care POTENTIAL TRANSITION PLANS Home OT/PT Met with patient at bedside after brief review of EMR to discuss CM role and discharge plan. Patient is a 57 year old female s/p left RENA due to stage osteonecrosis of the left hip. Patient anticipates she will dc home tomorrow with [facility]. Provider list provided to patient. Patient will review and make choices. CM to f/u. to transport at time of discharge. UPDATE:4:09 PM CM received C Choices from patient: #1 [facility] #2 [facility] #3 [facility]. Referral sent. Awaiting acceptance. SIGNATURE: Jagruti Rod RN PATIENT NAME: Rosa Blackwood DATE: March 17, 2018 TIME: 11:25 AM PAGER/CONTACT #: [phone] THERAPY NT Observed: 03/17/2018 Status: COMPLETED Source: [facility] 10:36 AM [facility] REPOSITORY HNO ID: [id number] Author: Porsha Nassar Service: Physical Therapy Author Type: Remote Control Mirror Installer Type: Therapy (PT/OT/Speech/Resp) Filed: 03/17/2018 10:42 AM Note Text: Attestation signed by Sukumar Moser at 03/19/2018 7:24 AM I reviewed and agree with the documentation corresponding to this therapy visit. SIGNATURE: Sukumar Moser PT DATE: March 19, 2018 TIME: 7:24 AM Physical Therapy Treatment SERVICE DATE: 03/17/2018 SERVICE TIME: 0900 to 0950 ROOM: [place] [address] Recommended Discharge Disposition: Home PT Recommended Discharge Equipment: Wheeled Walker PT Recommendations to Nursing: Ambulate with device;In halls;With assist of 1 person Device: Wheeled Walker PT 6 Clicks Score: 19 Precautions/Activity Restrictions: Total Hip Replacement;Weight Bearing Restrictions Extremity With Weight Bearing Restricted: Left Lower Extremity Left Lower Extremity Weight Bearing Status: Other: See Comment (70% WB) Total Hip Replacement Precautions: Posterior ASSESSMENT : Patient demonstrates improvement with gait training and transfers. Will complete stair training and car transfer training this PM if appropriate.Pt will benefit from Home PT for safe progression of therapeutic exercise in order to regain mobility and strength for improved mobility Patient Disposition at Start of Session: Supine in Bed;Call Anne in Reach Patient Disposition at End of Session: Supine in Bed;Call Anne in Reach Tolerated Full Session Physical Therapy Problem List: Pain;Decreased Strength;Functional Mobility Impairment;Balance Impaired Patient /Caregiver Goals: Walk;Go Home Goals for Plan of Care: Able to perform HEP with: Independent Rolling with: Independent Transfer supine to/from sit with: Independent Transfer sit to/from stand with: Modified Independent Ambulate with: Modified Independent Distance: 150 Device: Wheeled Walker Ambulate up and down curb step with: Modified Independent Device: Wheeled Walker Ambulate up and down steps with: Modified Independent Number of steps: 6 Device: Rail Car transfer with: Modified Independent Rehab Potential: Excellent PLAN: Treatment Frequency (times per week): BID Current admission Treatment Interventions: Education;Strengthening;Functional Mobility Training;Balance Training;Neuromuscular Re-education Plan of Care developed with: Patient TREATMENT INTERVENTIONS: Therapy Diagnosis: Reduced mobility-other Interventions Provided: Therapeutic Exercise (38818);Therapeutic Activity (16842);Gait Training (83301) Therapeutic Exercise (00010) Treatment Minutes: 15 1 unit Pt. Performed supine there ex x 10 reps including GS QS AP HS with assist SAQs Hip abd with assist Issued and reviewed total hip packet vcs throughout for correct technique Skilled Intervention(s): Instruction in therapeutic exercise per THR protocol Therapeutic Activity (16596) Treatment Minutes: 10 1 unit Skilled Intervention(s): Instructed patient in supine to sit pushing with upper extremities to sit up Instructed patient in sit to supine using safe, effective technique Performed supine to sit transfers with SBA and sit to supine with CGA with vcs for technique provided. Instruction in sit to stand technique with proper hand placement and body positioning at edge of bed/chair Instruction in stand to sit technique with lower extremities touching chair/bed and reaching back for surface Performed sit to/from stand transfers with SBA and vcs for set up Education with commode transfers. Pt peformed with RW and SBA with vcs for set up and observance of hip precautions. Frequent vcs provided for observance of hip precautions with functional mobility. Review of precautions provided. Gait Training (12730) Treatment Minutes: 13 1 unit Skilled Intervention(s): Instruction in sequencing, gait pattern, Instruction in correction of gait deviations and Instruction in WB precautions.Pt performed gait training with RW for 50' with CGA and vcs for sequencing, upright posture and observance of hip precautions with turns. Skilled intervention provided for line management and monitoring of physiological response to activity dosing. Total Timed Code Treatment Minutes: 38 Total Treatment Time (minutes): 50 FUNCTIONAL G CODE: PT 6 Clicks Score: 19 (03/17/18 0900) Mobility: Walking and Moving Around Current Status (G8978): CK (03/16/18 1334) Mobility: Walking and Moving Around Goal Status (G8979): CJ (03/16/18 1334) Based on clinical assessment and the score on the 6 Clicks Functional Assessment Tool, the G code and corresponding severity modifiers are documented above. SUBJECTIVE: Current Hospital Course: Chart reviewed and no significant medical updates relevant to therapy were noted Reason for Physical Therapy Consult : gait training Patient Report: It's going to be really hard to follow these precautions Home Environment Patient Lives With: Significant Other Assistance Available: 24 Hour Entry To Home: Stairs Number Of Stairs Into Home: 2 Number Of Stairs To Bed/Bath: 6 Stairs to Bed/Bath with: Unilateral Rail Equipment Owned: Cane;Wheeled Walker Prior Functional Level: Required Assistance Assistance Required With: Cleaning;Laundry;Meals;Shopping Prior Functional Level Comments: Using the walker d/t hip pain, denies falls OBJECTIVE: CURRENT FUNCTIONAL STATUS: Current Functional Mobility Assist Level Additional Information Rolling Stand By Assistance Supine to Sit Stand By Assistance Sit to Supine Contact Guard Assistance Scooting Contact Guard Assistance Sit to Stand Stand By Assistance Stand to Sit Stand By Assistance Bed to Chair Stand By Assistance Bed To Chair Transfer Type: Stand Pivot Bed To Chair Transfer Equipment: Wheeled Walker Toilet/Commode Stand By Assistance Gait Contact Guard Assistance Gait Device: Wheeled Walker Gait Distance (feet): 50' Stairs Curb Step Car Transfer General Gait Deviations: Antalgic gait pattern Balance: Static Sitting;Dynamic Sitting;Static Standing;Dynamic Standing Static Sitting Balance: Independent Dynamic Sitting Balance: Independent Static Standing Balance: Contact Guard Assistance Dynamic Standing Balance: Contact Guard Assistance Please see discipline specific clinical documentation flowsheet for complete details for this therapy evaluation/treatment. SIGNATURE: Porsha Nassar PTA PATIENT NAME: Rosa Blackwood DATE: March 17, 2018 TIME: 10:37 AM PROGRESS Observed: 03/17/2018 Status: COMPLETED Source: [place] 5:10 AM [facility] REPOSITORY O ID: [id number] Author: Wendy Mckoy MD Service: Orthopaedic Surgery Author Type: Resident Type: Progress Notes Filed: 03/17/2018 6:15 AM Note Text: ORTHOPAEDIC SURGERY PROGRESS NOTE A/P: 57 year old female POD#1 s/p left RENA due to stage osteonecrosis of the left hip. - Pt neurovascularly intact - Antibiotics:: Vanco x 24 hours perioperatively - DVT prophylaxis - SCDs, ASA 81 BID - Activity: 75% weight bearing - Pain - PO and IV breakthrough - controlled with oxycodone 10 mg - Regualr diet - MIVF w/ LR 75 mL/hr; HLIV when tolerating sufficient PO - No ovalle - PT/OT consult - PT rec for home PT - CM consult - Wound: Aquacell C/D/I - to be removed POD7 - Imaging: obtained in the PACU, appropriate placement of components - Hgb 11. postop, no indication for transfusion at this time - BMP WNL - Dispo: Pt to DC home pending home health care Rounding: Subjective No overnight issues. Pain well controlled on oxycodone 10 mg AFVSS, Hb 11.1 stable Denies any N/V/CP/SOB Objective Blood pressure 122/70, pulse 81, temperature 36.6 ?C (97.8 ?F), temperature source Oral, resp. rate 16, height 160 cm (5' 2.99), weight 79 kg (174 lb 2.6 oz), last menstrual period 08/18/2006, SpO2 96 %. Physical Exam AAOx3, NAD Breathing comfortably at rest RRR to peripheral palpation Left Lower Extremity: - Dressing: aquacell C/D/I - Motor: 5/5 ankle PF/DF/EHL - Sensory: SILT throughout s/s/sp/dp/t - 2+ DP/PT pulses, CR<2s Labs: CBC: Recent Labs 03/16/18 1430 WBC 6.43 HB 11.1* HCT 34.8* PLT 360 MCV 90.9 RDWCV 16.8* COAG: No results for input(s): APTT, INR in the last 168 hours. BMP: No results for input(s): GLUC, NA, K, CHLOR, CO2, ANION, BUN, CREAT in the last 168 hours. CHEM: No results for input(s): ALB, TPROT, CA, MG in the last 168 hours. URINALYSIS:No results for input(s): PH, SPGR, UGLUC, UBILI, UKET, UHB, UPROT, UROBIL, UWBC, SSA in the last 168 hours. Invalid input(s): NITR CRP: CRP (mg/dL) Date Value 03/08/2018 0.2 ESR: WSR (mm/hr) Date Value 03/08/2018 31 (H) Please scroll above for Assessment AND Plan. --- Wendy Mckoy MD Orthopedic Surgery, PGY1 Pager: [phone] If urgent, page 2-BONE CBC Collected: 03/16/2018 Status: F Source: [facility] 11:09 PM [facility] REPOSITORY TYPE CODE TESTS RESULT OUT OF REFERENCE UNITS RANGE LAB WBC 3.70-11.00 k/uL WBC 6.43 LAB RBC 3.90-5.20 m/uL Low RBC 3.26 LAB HGB 11.5-15.5 g/dL Low Hemoglobin 9.3 LAB HCT 36.0-46.0 % Low Hematocrit 29.8 LAB MCV 80.0-100.0 fL MCV 91.4 LAB MCH 26.0-34.0 pG MCH 28.5 LAB MCHC 30.5-36.0 g/dL MCHC 31.2 LAB RDWCV 11.5-15.0 % RDW-CV High 16.8 LAB PLTCT 150-400 k/uL Platelet Count 304 LAB MPV 9.0-12.7 fL MPV 10.8 LAB ABSNUC <0.01 k/uL Absolute nRBC <0.01 Performed By: #### CBC, BMP #### [facility] [address] [place], [place] [address] BASIC METABOLIC PANL Collected: 03/16/2018 Status: F Source: [place] 11:09 PM [facility] [place] REPOSITORY TYPE CODE TESTS RESULT OUT OF REFERENCE UNITS RANGE LAB GLU 74-99 mg/dL High Glucose 100 Result Comment: The [place] [employer] (ADA) provides guidance for cutoff values for fasting glucose and random glucose. The ADA defines fasting as no caloric intake for at least 8 hours. Fas ting plasma glucose results between 100 to 125 mg/dL indicate increased risk for diabetes (prediabetes). Fasting plasma glucose results greater than or equal to 126 mg/dL meet the criteria for diagnosis of diabetes. In the absence of unequivocal hyperglycemia, results should be confirmed by repeat testing. In a patient with classic symptoms of hyperglycemia or hyperglycemic crisis, random plasma glucose results greater than or equal to 200 mg/dL meet the criteria for diagnosis of diabetes. Reference: Standards of Medical Care in Diabetes 2016, [place] [employer]. Diabetes Care. 2016.39(Suppl 1). LAB BUN 7-21 mg/dL BUN 15 LAB CRET 0.58-0.96 mg/dL Creatinine 0.90 LAB NA 136-144 mmol/L Sodium 142 LAB K 3.7-5.1 mmol/L Potassium 4.5 LAB CL 97-105 mmol/L Chloride 105 LAB CO2 22-30 mmol/L CO2 25 LAB AGAP 9-18 mmol/L Anion Gap 12 LAB CA 8.5-10.2 mg/dL Calcium, Total 9.3 LAB GFRAA eGFR- Amer. >60 LAB GFRNAA . eGFR-All Other Races >60 Result Comment: eGFR (Estimated GFR) Units of measure: mL/min/1.73 meters squared eGFR is derived from the reexpressed MDRD Study equation using the following parameters: serum creatinine, age, gender and race. The creatinine assay has been calibrated to be traceable to IDMS. An eGFR <60 mL/min/1.73m2 for >3 months is consistent with chronic kidney disease. Refer to KDOQI guidelines for clinical interpretation. In patients with unstable renal function, e.g. those with acute kidney injury, the eGFR may not accurately reflect actual GFR. Performed By: #### CBC, BMP #### [facility] [address] [place], [place] [address] THERAPY NT Observed: 03/16/2018 Status: COMPLETED Source: [place] 4:26 PM [facility] [place] REPOSITORY HNO ID: [id number] Author: Yissel (Pt) Giana Service: Physical Therapy Author Type: Physical Therapist Type: Therapy (PT/OT/Speech/Resp) Filed: 03/16/2018 4:29 PM Note Text: Physical Therapy Evaluation SERVICE DATE: 03/16/2018 SERVICE TIME: 1334 to 1415 ROOM: [place] [address] Recommended Discharge Disposition: Home PT Recommended Discharge Equipment: Wheeled Walker PT Recommendations to Nursing: Ambulate with device;In halls;With assist of 1 person Device: Wheeled Walker PT 6 Clicks Score: 19 Precautions/Activity Restrictions: Total Hip Replacement;Weight Bearing Restrictions Extremity With Weight Bearing Restricted: Left Lower Extremity Left Lower Extremity Weight Bearing Status: Other: See Comment (70% WB) Total Hip Replacement Precautions: Posterior ASSESSMENT : Patient presents s/p RENA L d/t OA of the hip. 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 Pt with decreased strength in LLE, intermittently breaking RENA precautions. Requires skilled PT for transfer and gait trianing, stair and car transfer trianing, therex per RENA protocol. Review precautions extensively as pt breaking intermittently. Patient Disposition at Start of Session: Supine in Bed Patient Disposition at End of Session: Supine in Bed Tolerated Full Session Physical Therapy Problem List: Pain;Decreased Strength;Functional Mobility Impairment;Balance Impaired Patient /Caregiver Goals: Walk;Go Home Goals for Plan of Care: Able to perform HEP with: Independent Rolling with: Independent Transfer supine to/from sit with: Independent Transfer sit to/from stand with: Modified Independent Ambulate with: Modified Independent Distance: 150 Device: Wheeled Walker Ambulate up and down curb step with: Modified Independent Device: Wheeled Walker Ambulate up and down steps with: Modified Independent Number of steps: 6 Device: Rail Car transfer with: Modified Independent Rehab Potential: Excellent PLAN: Treatment Frequency (times per week): BID Current admission Treatment Interventions: Education;Strengthening;Functional Mobility Training;Balance Training;Neuromuscular Re-education Plan of Care developed with: Patient TREATMENT INTERVENTIONS: Therapy Diagnosis: Reduced mobility-other Interventions Provided: Evaluation;Therapeutic Exercise (57068);Gait Training (58327) $ Evaluation-Moderate (51804) Billed Units: 1 unit Therapeutic Exercise (40357) Treatment Minutes: 15 1 unit Skilled Intervention(s): Instruction in therapeutic exercise APs, QS, GS, HS, SAQ, weight shifts in standing, standing marching LLE x 10 each Gait Training (31778) Treatment Minutes: 11 1 unit Skilled Intervention(s): Instruction in sit to stand technique with proper hand placement and body positioning at edge of bed/chair, Instruction in stand to sit technique with LE's touching chair/bed and reaching back for surface, Instruction in sequencing, gait pattern, Instruction in correction of gait deviations, Instruction in use of equipment, cues for sequence and pattern and Instructed in 70% WB on LLE, good return demo. Distance limited by dizzines at this date. Instructed in RENA precautions Total Timed Code Treatment Minutes: 26 Total Treatment Time (minutes): 41 FUNCTIONAL G CODE: PT 6 Clicks Score: 19 (03/16/181333) Mobility: Walking and Moving Around Current Status (G8978): CK (03/16/181333) Mobility: Walking and Moving Around Goal Status (G8979): CJ (03/16/181333) Based on clinical assessment and the score on the 6 Clicks Functional Assessment Tool, the G code and corresponding severity modifiers are documented above. SUBJECTIVE: Current Hospital Course: Chart reviewed; 57 yo female admitted for elective RENA L d/t OA of the hip Reason for Physical Therapy Consult : gait training Patient Report: It really aches now Home Environment Patient Lives With: Significant Other Assistance Available: 24 Hour Entry To Home: Stairs Number Of Stairs Into Home: 2 Number Of Stairs To Bed/Bath: 6 Stairs to Bed/Bath with: Unilateral Rail Equipment Owned: Cane;Wheeled Walker Prior Functional Level: Required Assistance Assistance Required With: Cleaning;Laundry;Meals;Shopping Prior Functional Level Comments: Using the walker d/t hip pain, denies falls OBJECTIVE: CURRENT FUNCTIONAL STATUS: Current Functional Mobility Assist Level Additional Information Rolling Contact Guard Assistance Supine to Sit Contact Guard Assistance Sit to Supine Contact Guard Assistance Scooting Sit to Stand Contact Guard Assistance Stand to Sit Contact Guard Assistance Bed to Chair Toilet/Commode Gait Contact Guard Assistance Gait Device: Wheeled Walker Gait Distance (feet): 8 Stairs Curb Step Car Transfer General Gait Deviations: Antalgic gait pattern Balance: Static Sitting;Dynamic Sitting;Static Standing;Dynamic Standing Static Sitting Balance: Independent Dynamic Sitting Balance: Independent Static Standing Balance: Contact Guard Assistance Dynamic Standing Balance: Contact Guard Assistance Please see discipline specific clinical documentation flowsheet for complete details for this therapy evaluation/treatment. SIGNATURE: Yissel Faria PT PATIENT NAME: Rosa Blackwood DATE: March 16, 2018 TIME: 4:26 PM CBC Collected: 03/16/2018 Status: F Source: [place] 2:30 PM [facility] REPOSITORY TYPE CODE TESTS RESULT OUT OF REFERENCE UNITS RANGE LAB WBC 3.70-11.00 k/uL WBC 6.43 LAB RBC 3.90-5.20 m/uL Low RBC 3.83 LAB HGB 11.5-15.5 g/dL Low Hemoglobin 11.1 LAB HCT 36.0-46.0 % Low Hematocrit 34.8 LAB MCV 80.0-100.0 fL MCV 90.9 LAB MCH 26.0-34.0 pG MCH 29.0 LAB MCHC 30.5-36.0 g/dL MCHC 31.9 LAB RDWCV 11.5-15.0 % RDW-CV High 16.8 LAB PLTCT 150-400 k/uL Platelet Count 360 LAB MPV 9.0-12.7 fL MPV 10.2 LAB ABSNUC <0.01 k/uL Absolute nRBC <0.01 Performed By: #### CBC #### [facility] [address] [place], [place] [address] XR HIP 1V LT Observed: 03/16/2018 Status: F Source: [place] 2:18 PM [facility] REPOSITORY * * *Final Report* * * DATE OF EXAM: Mar 16 2018 2:18PM ESX [id number] - XR HIP 1V LT / PROCEDURE REASON: Post-operative / post-procedure assessment, asymptomatic * * * * Physician Interpretation * * * * HISTORY: Post-operative / post-procedure assessment, asymptomatic TECHNOLOGIST PROVIDED HISTORY (if applicable): POST OP TECHNIQUE: XR HIP 1V LT RESULT: Single postoperative view of the left hip shows interval total hip arthroplasty with noncemented components when compared to March 08. No signs of hardware loosening or failure. Advanced degenerative changes are present in the lower lumbar spine. IMPRESSION: STATUS POST LEFT TOTAL HIP ARTHROPLASTY. Certified Registered Dental Assistant: PSCB Transcribe Date/Time: Mar 16 2018 2:58P Dictated by : GAYLE LOPEZ MD This examination was interpreted and the report reviewed and electronically signed by: GAYLE LOPEZ MD on Mar 16 2018 2:59PM EST [id number] OPERATIVE NO Observed: 03/16/2018 Status: COMPLETED Source: [place] 1:22 PM [facility] REPOSITORY HNO ID: [id number] Author: Lui Hsu Service: Orthopaedic Surgery Author Type: Physician Type: Operative Report Filed: 03/16/2018 1:25 PM Note Text: OPERATIVE REPORT TOTAL HIP ARTHROPLASTY LOG ID: [id number] Surgery/Procedure Date: 03/16/2018 Incision/Procedure Start Time: 11:31 AM Incision Close/Procedure End Time: 1:25 PM Surgeon(s)/Proceduralist(s) and Neckties Painter(s): Surgeon(s) and Role: * Lui Hsu - Primary * Wendy (Res) MD Leelee - Resident - Assisting No Additional Staff Procedure(s): Procedure(s) (LRB): ARTHROPLASTY REPLACE JOINT TOTAL HIP (Left) Anesthesia: Spinal Procedure Details: RENA Procedure Details physician assistant assisted in positioning and draping the patient, exposure, retraction, closure, and applying dressings. Dr. Hsu was present and scrubbed. Operative Procedure: After appropriate consent was obtained, the patient was taken to the operating room, where a huddle was held. After anesthesia was obtained, the patient was prepped and draped in a lateral decubitus position with the left leg draped free. An appropriate time-out was called. Antibiotics were delivered preoperatively. A minimally invasive posterior approach was made, splitting the gluteus marry in line with its fibers, reflecting the posterior capsule and external rotators as a single layer. The hip was dislocated. An appropriate femoral neck osteotomy was performed. The acetabulum was debrided and then reamed to intramedullary diameter of 48 mm. Solid back Triden cup ([place]) was placed, 48 mm in diameter.. This was placed in approximately 50 degrees of flexion and 35 degrees of anteversion. A qfhelpe-vf-nxotyfd liner was placed. The internal diameter of the liner was 32 mm. Attention was then turned to the femur, which was reamed and broached to identify a [place] citation TZMF (size 3) implant as optimal. Careful positioning of the implant allowed placement of the implant in approximately 25 degrees of anteversion. Trialing identified a size 3 mm femoral head as optimal. This provided minimal push pull, flexion to 90 degrees, abduction to 10 degrees, internal rotation to 30 degrees before any levering occurred. Extensive capsulectomy was performed anteriorly to minimize any potential for anterior soft tissue relevering, given the relatively little limited anteversion in the femoral neck. The wound was irrigated thoroughly with pulsatile Ringer's lactate lavage. No deep drain was left in place. The vyqobf-jo-qyfkj sutures with #1 Vicryl were used to close the fascia followed by 2-0 Vicryl sutures in an inverted fashion and subutaneous fat and then 2-0 Vicryl interrupted inverted subcuticular sutures in the skin. Steri-Strips were applied, Xeroform gauze dressing, and tape. The patient was turned supine in bed. A PAS stocking was applied to the operative leg. The PAS stocking was in place and inflating in theopposite leg throughout the procedure. The patient was transferred to a recovery room bed and to the recovery room in stable condition. Postoperative Plan: Routine postoperative total hip arthroplasty protocol, 70 % weightbearing for the first 6 weeks. Pre-Op/Pre-Procedure Diagnosis: Stage Osteonecrosis Left Hip Post-Op/Post-Procedure Diagnosis: Stage Osteonecrosis Left Hip Estimated Blood Loss: 150 mls Specimens: None Implant: Implant Name Type Inv. Item Serial No. Bioinformaticist Lot No. LRB No. Used LINER 32MM 0D D X3 5.9MM ACETABULAR HIP - [id number] Joint - Hip LINER 32MM 0D D X3 5.9MM ACETABULAR HIP STRY/[employer] [id number] Left 1 SHELL TRIDENT 48MM D HEMISPHERICAL METAL SANDOVAL ACETABULAR SOLID BACK HIP - [id number] Joint - Hip SHELL TRIDENT 48MM D HEMISPHERICAL METAL SANDOVAL ACETABULAR SOLID BACK HIP STRY/[employer] [id number] Left 1 STEM CITATION 12MM 132D 3 40MM OFFSET PUREFIX TMZF 125MM 28MM FEMORAL HIP - [id number] Joint - Hip STEM CITATION 12MM 132D 3 40MM OFFSET PUREFIX TMZF 125MM 28MM FEMORAL HIP STRY/[employer] [id number] Left 1 HEAD V40 32MM +4MM OFFSET TAPER BIOLOX DELTA FEMORAL HIP - [id number] Joint - Hip HEAD V40 32MM +4MM OFFSET TAPER BIOLOX DELTA FEMORAL HIP STRY/[employer] [id number] Left 1 Bearing Surface: Ceramic on Poly Fixation: Cementless Drains: None Complications: None, patient tolerated procedure well. Participation in Procedure: The primary surgeon/proceduralist performed the procedure with assistance. SIGNATURE: Lui Hsu MD PATIENT NAME: Rosa Blackwood DATE: March 16, 2018 TIME: 1:22 PM PAGER/CONTACT #: ZONIA POST Observed: 03/16/2018 Status: COMPLETED Source: [place] 10:42 AM [facility] REPOSITORY HNO ID: [id number] Author: Joshua Whaley Service: Anesthesiology Author Type: Anesthesiologist Type: Anesthesia PostOp Filed: 03/17/2018 3:09 PM Note Text: POST ANESTHESIA EVALUATION NOTE SERVICE DATE: 03/16/2018 SERVICE TIME: 1630 : 1960 Vitals: 03/16/18195103/16/18233803/17/1839903/17/18 0734 Temp: 36.7 ?C (98 ?F) 37.1 ?C (98.8 ?F) 37.2 ?C (99 ?F) 37.6 ?C (99.6 ?F) 03/16/18233803/17/1839903/17/18 0734 03/17/18 1210 BP: 112/66 125/64 101/57 108/61 03/16/18233803/17/180 03/17/18 0734 03/17/18 1210 Pulse: 85 81 91 83 03/16/18233803/17/180 03/17/18 0734 03/17/18 1210 Resp: 03/16/18233803/17/180 03/17/18 0734 03/17/18 1210 SpO2: 95% 98% 98% 98% Validated Vital Signs: Yes POST ANES STATUS: No apparent anesthetic complications. The patient is appropriately hydrated with stable respiratory and cardiovascular status. Patient has safe and adequate airway control. The patient has appropriate pain relief and no significant post operative nausea or vomiting. The patient has achieved baseline mental status. Intra-Operative Events: No Significant Anesthesia Events Further assessment by Anesthesia Service: None Other Remarks: SIGNATURE: Joshua Whaley MD PATIENT NAME: Rosa Blackwood DATE: March 17, 2018 TIME: 3:09 PM PAGER/CONTACT #: [phone] NURSING PROG Observed: 03/16/2018 Status: COMPLETED Source: [place] 9:55 AM [facility] REPOSITORY HNO ID: [id number] Author: Mariaelena Schwartz RN Service: (none) Author Type: Registered Nurse Type: Nursing Progress Note Filed: 03/16/2018 9:55 AM Note Text: PRE OP LEARNING ASSESSMENT ? PROCEDURE/SURGERY: SURGERY: logistics READINESS TO LEARN COGNITIVE ABILITY: Alert and oriented MOTIVATION TO LEARN: Interested FAMILY SUPPORT: High - Very involved in pt care PATIENT LEARNS BEST BY: Individual Instruction Verbal Instruction FACTORS AFFECTING LEARNING: None PHYSICAL LIMITATIONS AFFECTING LEARNING: None ? Electronically Signed By: Mariaelena Schwartz RN In Department: [facility] [id number] PROGRESS Observed: 03/12/2018 Status: COMPLETED Source: [place] 5:02 PM [facility] REPOSITORY HNO ID: [id number] Author: Ophelia Nguyen (Rt) Service: Radiology Author Type: Mill Operator Helper Type: Progress Notes Filed: 03/12/2018 5:02 PM Note Text: Radiology Service Progress Note PATIENT NAME: Rosa Blackwood DATE OF SERVICE: March 12, 2018 TIME: 5:02 PM PATIENT IDENTITY VERIFICATION COMPLETED USING TWO (2) METHODS: Patient confirmed name verbally and Date of . PATIENT GENDER DATA: Female. status: : No status: NO. PATIENT RELEVANT IMPLANT DATA REVIEWED: Not Applicable RADIOLOGY DEPARTMENT: General X-ray: Exam(s) Completed: Chest X-Ray PERIPHERAL IV DATA: Not applicable SIGNED BY: RT Momo March 12, 2018 5:02 PM XR CHEST 2V FRONTAL/LAT Observed: 03/12/2018 Status: F Source: [place] 5:02 PM [facility] REPOSITORY * * *Final Report* * * DATE OF EXAM: Mar 12 2018 5:02PM AOX [id number] - XR CHEST 2V FRONTAL/LAT / PROCEDURE REASON: multiple diagnoses * * * * Physician Interpretation * * * * EXAMINATION: CHEST RADIOGRAPH (2 VIEW FRONTAL and LATERAL) CLINICAL HISTORY: Pre-operative examination ILD (interstitial lung disease) (HCC) MQ: XC2_5 Comparison: None RESULT: Lines, tubes, and devices: None. Pulmonary staple lines, suggestive of prior wedge biopsies on the right side. Lungs and pleura: No consolidation. No lung mass. No pleural effusion. Well-expanded lungs. No significant interstitial opacities to indicate radiographic evidence of interstitial lung disease. Cardiomediastinal silhouette: Normal cardiomediastinal silhouette. Other: Degenerative changes of the spine. Mild dextrocurvature of the lower thoracic spine. IMPRESSION: See body of the report Certified Registered Dental Assistant: SANJUANA Transcribe Date/Time: Mar 13 2018 4:51P Dictated by : BOGDAN SHEETS MD This examination was interpreted and the report reviewed and electronically signed by: BOGDAN SHEETS MD on Mar 13 2018 4:52PM EST [id number] PROGRESS Observed: 03/12/2018 Status: COMPLETED Source: [place] 4:57 PM [facility] REPOSITORY O ID: [id number] Author: Ambreen (Rn) ECHO Contreras Service: (none) Author Type: Registered Nurse Type: Progress Notes Filed: 03/15/2018 8:45 AM Note Text: ANESTHESIA PRE-OPERATIVE ASSESSMENT (PACE) SERVICE DATE: 03/12/2018 SERVICE TIME: 400 ASSESSMENT AND PLAN: Rosa Blackwood is a 57 year old female scheduled for Left Hip Total Arthoplasty per Informed Consent in [facility] on 03/16/18. PMH: 1. Hip OA, osteonecrosis with subluxation- for above surgery 2. HTN- norvasc and losartan 3. Interstitial lung disease, hx of cryptogenic organizing pneumonia (dx in 2014)- followed by pulmonary, per pt MD is aware of upcoming surgery. SINDI is requesting the last pulmonary note . Does not use oxygen or inhalers. Takes prednisone (5mg currently, but was as high as 30mg 7-8 mos ago) and imuran. Pt will be having a cxr after PACE appt. Pt brought with her last echo (Jun 2017), PFTs and CT chest from Jun 2017 and pulm/pcp visit note from Jun 2017. Pt is feeling well, and breathing comfortably. Saturating 98% on room air. 4. It was noted in Care everywhere problem list a diagnosis of pulm htn, pt denies and the office visit note states she DOES NOT have pulm htn. The most recent echo showed normal tricuspid valve, RV size and function. RVSP was unable to be estimated. 5. GERD- prilosec 6.? Rheumatoid arthritis, fibromyalgia- lyrica, norco. 7. Degenerative disc in neck and back, + pain. Pt sometimes has paresthesia in BUE with ROM, not currently however. Today her neck ROM was good. [facility]: 3 FC: 2 METS: Take care of self; that is eating, dressing, bathing, using the toilet (2.75 METs) Patient denies any chest pain or undue shortness of breath with the above physical activity. limited by hip pain, limited since November Patient WILL accept blood products. BLOOD WORK/PRODUCTS ORDERED: Type and Screen , Con ABO HISTORY OF CHRONIC PAIN: Yes - back, neck and hip PAIN MANAGEMENT OPTIONS: Routine/PRN IV and Final pain management plan will be discussed on the day of surgery. ANESTHETIC OPTIONS: Regional vs. general and Final anesthesia management options will be discussed on day of surgery. PRE-OP PLAN ORDERED: Acute pain management consult prior to OR Patient Instructed: ? No solid food or non-clear liquids after midnight. Clear liquids allowed until two hours before scheduled arrival. ? Patient instructed to take the following medications with a sip of water: prednisone, norvasc, prilosec, norco Vital Signs: BP 104/78 Pulse 85 Ht 160 cm (5' 2.99) Wt 79.4 kg (175 lb 0.7 oz) LMP 08/18/2006 SpO2 98% BMI 31.02 kg/m? BMI 31.02 kg/(m2) Vital signs completed by: IMPACT Weight acquired: per HANDP. Height acquired: per HANDP Airway Exam: MOUTH OPENING/TMJ: Full jaw ROM MICROGNATHIA/OVERBITE: No MALLAMPATI SCORE is CLASS II UPPER LIP BITE TEST: Class I - Lower incisors can bite the upper lip above the manuel line DENTITION: Intact THYROMENTAL DIST: WNL SHORT NECK: No NECK CIRCUMFERENCE >40 cm: Appears < than 40 CM NECK FLEX: Full ROM NECK EXTENSION: Limited ROM slight, occasional paresthesia in BUE with movement, not currently. AIRWAY HISTORY: No abnormal airway history ARKS AIRWAY DETAIL: N/A DATA: EKG READING: Unconfirmed - SR 81 OTHER TESTS: Echo: Date: 06/2017, Results: osh, to be scanned. EF 60%, no wall motion abnormalities, no valve abnormalities. RV size and function are normal, rvsp could not be estimated. Lab Value Units Date High Low HB 12.8 g/dL 03/08/2018 15.5 11.5 HCT 40.9 % 03/08/2018 46.0 36.0 WBC 5.49 k/uL 03/08/2018 11.00 3.70 PLT 433 k/uL 03/08/2018 400 150 NA 144 mmol/L 03/08/2018 144 136 K 4.1 mmol/L 03/08/2018 5.1 3.7 GLUC 95 mg/dL 03/08/2018 99 74 BUN 18 mg/dL 03/08/2018 21 7 CREAT 1.22 mg/dL 03/08/2018 0.96 0.58 HBA1C: No results found for: HBA1C) Patient accompanied by spouse Case Discussed with Dr Hunter OPTIMIZATION STATUS: Patient optimization pending CXR IMPACT and PACE Pending OSR for chart completion only- most recent pulmonary note. SIGNATURE: Ambreen Contreras RN PATIENT NAME: Rosa Blackwood DATE: March 12, 2018 TIME: 4:57 PM PAGER/CONTACT #: Addendum 03/15/18 [facility] recent pulm visit, recent pfts received. Stable lung disease noted. Normal spirometry. CXR RESULT: Lines, tubes, and devices: ?None. ?Pulmonary staple lines, suggestive of prior wedge biopsies on the right side. Lungs and pleura: ?No consolidation. No lung mass. No pleural effusion. ? Well-expanded lungs. ?No significant interstitial opacities to indicate radiographic evidence of interstitial lung disease. Cardiomediastinal silhouette: ?Normal cardiomediastinal silhouette. Other: ?Degenerative changes of the spine. ?Mild dextrocurvature of the lower thoracic spine. CNOV Observed: 03/12/2018 Status: COMPLETED Source: [place] 3:30 PM [facility] REPOSITORY Office Visit (PSSCMN) ROSA BLACKWOOD ([id number]) 1960 F Date Time Provider Department 03/12/18 3:30 PM [facility] During your visit today, we recorded the following information about you: Pulse Blood pressure Weight Height 85/minute 104/78 79.4 kg 1.6 m Ambreen Contreras, RN, RN 03/15/2018 8:45 AM Addendum ANESTHESIA PRE-OPERATIVE ASSESSMENT (PACE) SERVICE DATE: 03/12/2018 SERVICE TIME: 400 ASSESSMENT AND PLAN: Rosa Blackwood is a 57 year old female scheduled for Left Hip Total Arthoplasty per Informed Consent in MAIN on 03/16/18. PMH: 1. Hip OA, osteonecrosis with subluxation- for above surgery 2. HTN- norvasc and losartan 3. Interstitial lung disease, hx of cryptogenic organizing pneumonia (dx in 2014)- followed by pulmonary, per pt MD is aware of upcoming surgery. PACE is requesting the last pulmonary note . Does not use oxygen or inhalers. Takes prednisone (5mg currently, but was as high as 30mg 7-8 mos ago) and imuran. Pt will be having a cxr after PACE appt. Pt brought with her last echo (Jun 2017), PFTs and CT chest from Jun 2017 and pulm/pcp visit note from Jun 2017. Pt is feeling well, and breathing comfortably. Saturating 98% on room air. 4. It was noted in Care everywhere problem list a diagnosis of pulm htn, pt denies and the office visit note states she DOES NOT have pulm htn. The most recent echo showed normal tricuspid valve, RV size and function. RVSP was unable to be estimated. 5. GERD- prilosec 6.? Rheumatoid arthritis, fibromyalgia- lyrica, norco. 7. Degenerative disc in neck and back, + pain. Pt sometimes has paresthesia in BUE with ROM, not currently however. Today her neck ROM was good. [facility]: 3 FC: 2 METS: Take care of self; that is eating, dressing, bathing, using the toilet (2.75 METs) Patient denies any chest pain or undue shortness of breath with the above physical activity. limited by hip pain, limited since November Patient WILL accept blood products. BLOOD WORK/PRODUCTS ORDERED: Type and Screen , Con ABO HISTORY OF CHRONIC PAIN: Yes - back, neck and hip PAIN MANAGEMENT OPTIONS: Routine/PRN IV and Final pain management plan will be discussed on the day of surgery. ANESTHETIC OPTIONS: Regional vs. general and Final anesthesia management options will be discussed on day of surgery. PRE-OP PLAN ORDERED: Acute pain management consult prior to OR Patient Instructed: ? No solid food or non-clear liquids after midnight. Clear liquids allowed until two hours before scheduled arrival. ? Patient instructed to take the following medications with a sip of water: prednisone, norvasc, prilosec, norco Vital Signs: BP 104/78 Pulse 85 Ht 160 cm (5' 2.99) Wt 79.4 kg (175 lb 0.7 oz) LMP 08/18/2006 SpO2 98% BMI 31.02 kg/m? BMI 31.02 kg/(m2) Vital signs completed by: IMPACT Weight acquired: per HANDP. Height acquired: per HANDP Airway Exam: MOUTH OPENING/TMJ: Full jaw ROM MICROGNATHIA/OVERBITE: No MALLAMPATI SCORE is CLASS II UPPER LIP BITE TEST: Class I - Lower incisors can bite the upper lip above the manuel line DENTITION: Intact THYROMENTAL DIST: WNL SHORT NECK: No NECK CIRCUMFERENCE >40 cm: Appears < than 40 CM NECK FLEX: Full ROM NECK EXTENSION: Limited ROM slight, occasional paresthesia in BUE with movement, not currently. AIRWAY HISTORY: No abnormal airway history ARKS AIRWAY DETAIL: N/A DATA: EKG READING: Unconfirmed - SR 81 OTHER TESTS: Echo: Date: 06/2017, Results: osh, to be scanned. EF 60%, no wall motion abnormalities, no valve abnormalities. RV size and function are normal, rvsp could not be estimated. Lab Value Units Date High Low HB 12.8 g/dL 03/08/2018 15.5 11.5 HCT 40.9 % 03/08/2018 46.0 36.0 WBC 5.49 k/uL 03/08/2018 11.00 3.70 PLT 433 k/uL 03/08/2018 400 150 NA 144 mmol/L 03/08/2018 144 136 K 4.1 mmol/L 03/08/2018 5.1 3.7 GLUC 95 mg/dL 03/08/2018 99 74 BUN 18 mg/dL 03/08/2018 21 7 CREAT 1.22 mg/dL 03/08/2018 0.96 0.58 HBA1C: No results found for: HBA1C) Patient accompanied by spouse Case Discussed with Dr Hunter OPTIMIZATION STATUS: Patient optimization pending CXR IMPACT and PACE Pending OSR for chart completion only- most recent pulmonary note. SIGNATURE: Ambreen Contreras RN PATIENT NAME: Rosa Blackwood DATE: March 12, 2018 TIME: 4:57 PM PAGER/CONTACT #: Addendum 03/15/18 [facility] recent pulm visit, recent pfts received. Stable lung disease noted. Normal spirometry. CXR RESULT: Lines, tubes, and devices: ?None. ?Pulmonary staple lines, suggestive of prior wedge biopsies on the right side. Lungs and pleura: ?No consolidation. No lung mass. No pleural effusion. ? Well-expanded lungs. ?No significant interstitial opacities to indicate radiographic evidence of interstitial lung disease. Cardiomediastinal silhouette: ?Normal cardiomediastinal silhouette. Other: ?Degenerative changes of the spine. ?Mild dextrocurvature of the lower thoracic spine. Referring Provider: LUI HSU [[id number]] Allergies As of Date: 03/12/2018 Noted Allergy Reaction AMPICILLIN 08/18/2006 16 - Unknown Comments: Told as a child allergic, has had similar meds since CIPROFLOXACIN 07/01/2015 6 - Diarrhea CLINDAMYCIN 07/01/2015 6 - Diarrhea Date Reviewed: 03/12/2018 Reviewed by: Ambreen (Rn) ECHO Contreras - Fully Assessed Primary Visit Diagnosis:Pre-op evaluation [Z01.818] Prescriptions as of 03/12/2018 Sig: COMPOUNDED PRESCRIPTION Keill Oil 1 cap DA CoQ10 1ta* ELMIRON ORAL Take 1 tablet by mouth three * AMLODIPINE 5 MG TABLET Take 5 mg by mouth once daily. SULFAMETHOXAZOLE 800 MG-TRIME* Take by mouth. Mon, wed, fri BUPRENORPHINE 20 MCG/HOUR WEE* Apply as directed once each w* LOSARTAN 100 MG TABLET Take 100 mg by mouth once mary ellen* PREDNISONE 10 MG TABLET Take 10 mg by mouth once adama* BUPROPION XL 300 MG 24 HR TAB Take 300 mg by mouth once mary ellen* DULOXETINE 60 MG CAPSULE,HANANE* Take 60 mg by mouth once adama* AZATHIOPRINE 50 MG TABLET Take 50 mg by mouth three len* LIDOCAINE 5 % TOPICAL PATCH Apply 1 Patch as directed as * DICLOFENAC 1 % TOPICAL GEL Apply to affected area four t* TART BALLESTEROS EXTRACT ORAL Take by mouth once daily. [id number]-YSXO ORAL Take by mouth once daily. CO Q-10 ORAL Take by mouth once daily. FISH OIL-DHA-EPA 1,200 MG-144* Take 1,200 mg by mouth once d* FOLIC ACID 1 MG TABLET Take 1 mg by mouth once daily. HYDROCHLOROTHIAZIDE 12.5 MG C* Take 12.5 mg by mouth once da* NORCO ORAL Take 7.5 mg by mouth three ti* IBUPROFEN 400 MG TABLET Take 400 mg by mouth every 6 * IMIPRAMINE HCL ORAL Take by mouth. LOSARTAN ORAL Take by mouth. LYRICA ORAL Take 75 mg by mouth. 2 capsul* PRILOSEC ORAL Take 40 mg by mouth twice mary ellen* PROGESTERONE MISC AMBIEN ORAL Take 12.5 mg by mouth. CALCIUM 500 ORAL Take by mouth once daily. VITAMIN D-3 ORAL Take by mouth once daily. CYMBALTA 20 MG CAPSULE,DELAYE* Take one(1) tablet daily. Patient taking differently: Take one(1) tablet daily. Pt * WELLBUTRIN XL 150 MG 24 HR TA* Take one(1) tablet daily. Patient taking differently: Take one(1) tablet daily.300 * Problem List As Of Date 03/12/2018 Noted Resolved Current chronic use of systemic steroids [Z79.5*INVALID FOR* Rheumatoid arthritis involving multiple sites (*INVALID FOR* Obesity, Class I, BMI 30-34.9 [E66.9] INVALID FOR* Osteonecrosis of left hip (HCC) [M87.9] INVALID FOR* More... Fibromyalgia [M79.7] INVALID FOR* Vitamin D deficiency [E55.9] INVALID FOR* OA (osteoarthritis) of hip [M16.9] INVALID FOR* More... ILD (interstitial lung disease) (HCC) [J84.9] INVALID FOR* Encounter Status:Closed by AMBREEN CONTRERAS on 03/12/18 Chart Close Cosign Accepted by: BENEDICTO HUNTER MD[[id number]] Chart Close Cosign Accepted on: ThuMar 13, 2018 12:26 PM HISTORY PHYSICAL Observed: 03/12/2018 Status: COMPLETED Source: [place] 2:24 PM [facility] REPOSITORY HNO ID: [id number] Author: Edgar Olson Service: (none) Author Type: Physician Type: HANDP Filed: 03/12/2018 3:22 PM Note Text: HISTORY AND PHYSICAL EXAMINATION (IMPACT) SERVICE DATE: 03/12/2018 SERVICE TIME: 2:24 PM PRIMARY CARE PHYSICIAN: Valeriano Munoz MD CHIEF COMPLAINT/HISTORY OF PRESENT ILLNESS: Ms. Blackwood is a 57 year old female referred to me for preoperative evaluation. My final recommendations will be communicated back to the requesting physician/surgeon by the way of the shared medical record. Referring Surgeon: Dr. 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 Patient is Able to Perform the Following Physical Activity: Partially dependent since november 2017 Patient's functional class is III based on self-reported physical activity. Significant Anesthesia Considerations: None. PAST MEDICAL/SURGICAL/FAMILY/SOCIAL HISTORY PAST MEDICAL HISTORY Diagnosis Date - Current chronic use of systemic steroids - Fibromyalgia - Rheumatoid arthritis (HCC) PAST SURGICAL HISTORY Procedure Laterality Date - CARPAL TUNNEL Bilateral 2002 - CATARACT SURGERY, COMPLEX Bilateral 2017 - DILATION AND CURETTAGE 2014 - KIDNEY SURGERY HX - LUNG BIOPSY 2014 - TOTAL KNEE REPLACEMENT Left 2010 FAMILY HISTORY Problem Relation Age of Onset - Arthritis Mother - Hypertension Mother - Hypertension Father SOCIAL HISTORYSocial History Marital status: Spouse name: Years of education: Number of children: Social History Main Topics Smoking status: Former Smoker Packs/day: 0.00 Years: 0.00 Smokeless tobacco: Never Used Comment: 10 YEARS AGO Alcohol use: Yes 4.5 oz/week Glasses of Wine (5oz): 1, Cans of Beer (12oz): 1, Mixed Drinks: 1 per week Comment: OCCASIONALLY DRINKS ABOVE ALCOHOLIC DRINKS Drug use: No MEDICATIONS/ALLERGIES Current Outpatient Prescriptions: COMPOUNDED PRESCRIPTION Keill Oil 1 cap DACoQ10 1tab DA Disp: Rfl: pentosan polysulfate sodium (ELMIRON ORAL) Take 1 tablet by mouth three times daily. Disp: Rfl: amLODIPine (NORVASC) 5 mg tablet Take 5 mg by mouth once daily. Disp: Rfl: sulfamethoxazole-trimethoprim (BACTRIM DS,SEPTRA DS) 800-160 mg per tablet Take by mouth. Mon, wed, fri Disp: Rfl: predniSONE (DELTASONE) 10 mg tablet Take 10 mg by mouth once daily. Disp: Rfl: buPROPion XL (WELLBUTRIN XL) 300 mg 24 hr tablet Take 300 mg by mouth once daily. Disp: Rfl: azaTHIOprine (IMURAN) 50 mg tablet Take 50 mg by mouth three times daily. 3 tabs daily Disp: Rfl: lidocaine (LIDODERM) 5 % Apply 1 Patch as directed as needed. Disp: Rfl: [id number]-[id number]-VXZF ORAL Take by mouth once daily. Disp: Rfl: UBIDECARENONE (CO Q-10 ORAL) Take by mouth once daily. Disp: Rfl: HYDROCODONE/ACETAMINOPHEN (NORCO ORAL) Take 7.5 mg by mouth three times daily. 7.5 - 325 mg Disp: Rfl: LOSARTAN POTASSIUM (LOSARTAN ORAL) Take by mouth. Disp: Rfl: PREGABALIN (LYRICA ORAL) Take 75 mg by mouth. 2 capsules Disp: Rfl: OMEPRAZOLE (PRILOSEC ORAL) Take 40 mg by mouth twice daily. Disp: Rfl: PROGESTERONE MISC Disp: Rfl: ZOLPIDEM TARTRATE (AMBIEN ORAL) Take 12.5 mg by mouth. Disp: Rfl: CYMBALTA 20 MG CAP Take one(1) tablet daily. (Patient taking differently: Take one(1) tablet daily. Pt takes 60 mg not 20mg) Disp: 30 Rfl: 0 WELLBUTRIN XL 150 MG 24 HR TAB Take one(1) tablet daily. (Patient taking differently: Take one(1) tablet daily.300 mg not 150 mg) Disp: 30 Rfl: 0 buprenorphine (BUTRANS) 20 mcg/hour ptwk Apply as directed once each week. Disp: Rfl: losartan (COZAAR) 100 mg tablet Take 100 mg by mouth once daily. Disp: Rfl: DULoxetine (CYMBALTA) 60 mg capsule Take 60 mg by mouth once daily. Disp: Rfl: diclofenac sodium (VOLTAREN) 1 % topical gel Apply to affected area four times daily. Disp: Rfl: sour ballesteros extract (TART BALLESTEROS EXTRACT ORAL) Take by mouth once daily. Disp: Rfl: Fish Oil-DHA-EPA 1,200-144-216 mg cap Take 1,200 mg by mouth once daily. Disp: Rfl: folic acid 1 mg tablet Take 1 mg by mouth once daily. Disp: Rfl: Hydrochlorothiazide 12.5 mg capsule Take 12.5 mg by mouth once daily. Disp: Rfl: ibuprofen (MOTRIN) 400 mg tablet Take 400 mg by mouth every 6 hours as needed. Disp: Rfl: IMIPRAMINE HCL ORAL Take by mouth. Disp: Rfl: CALCIUM CARBONATE (CALCIUM 500 ORAL) Take by mouth once daily. Disp: Rfl: CALCIUM CARBONATE/VITAMIN D3 (VITAMIN D-3 ORAL) Take by mouth once daily. Disp: Rfl: No current facility-administered medications for this visit. ALLERGIES Allergen Reactions - Ampicillin Unknown Told as a child allergic, has had similar meds since - Ciprofloxacin Diarrhea - Clindamycin Diarrhea REVIEW OF SYSTEMS General: No weight loss, malaise or fevers. Neuro: No history of TIA's, stroke, MESH CUTTER tumor, impaired sensorium, hemiplegia, paraplegia or quadriplegia. No neurological symptoms or problems. Respiratory: ILD prednisone and imuran Cardiovascular: Hypertension requiring meds GI: GERD : No history of UTI in past 6 weeks. No history of renal failure. Not currently on or requiring dialysis. No history of symptoms or problems. 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 Endocrine: Steroids for chronic problem currently on prednisone 5 mg Hematology: No history of bleeding or clotting disorder. No history of hematological symptoms or problems. Oncology: No history of CA metastasis, chemo within 30 days, or radiotherapy within 90 days. No history of oncological symptoms or problems. Psych: Depression Skin: Negative for lesions, rash, and itching. PHYSICAL EXAM VITALS: BP 104/78 Pulse 85 Temp (Src) 97.9 (Oral) Ht 5' 3 (1.60m) Wt 175 lb (79.4kg) SpO2 98% LMP 08/18/2006 BMI 31.01 kg/(m2). General: Alert and oriented, on wheel chair no respiratory distress on room air Skin: Normal color, no rash, no lesions. HEENT: Throat clear Cardiovascular: Normal S1 AND S2, no rubs, murmurs or gallops. No JVD. Pulse regular. Lungs: Normal breath sounds, no wheezes or crackles. Abdomen: Soft, non-tender, no rigidity. Extremities: No deformity, no edema or tenderness, no joint swelling or clubbing. Neurological: Normal cognition and motor skills. Pulses: Not examined ASSESSMENT Ms. Blackwood is a 57 year old female referred to me for preoperative evaluation. Patient has the following medical comorbidities which might affect the perioperative course: - Hypertension, well controlled. - ILD -organizing pnemonia Patient's RCRI (Revised Cardiac Risk Index: CAD/CHF/Stroke or TIA/SCr>2/DM on Insulin/High Risk Surgery) score is 0 and is at low risk for major adverse cardiac events in the perioperative period. Diagnostic tests reviewed for today's visit: Most recent labs Most recent imaging CT chest 06/2017 report with diffuse hazy ground glass opacities though out the lung bilaterally mild moderate airway inflammation small nodules Most recent EKG: normal sinus rhythm, normal axis, normal intervals, reviewed by myself. Most recent Echo 06/2017 EF 60% no WMA no valve abnormalities RVSP not measured Most recent PFT 06/2017 normal normal DLCO PLAN/RECOMMENDATIONS CARDIAC: Patient is at optimal cardiac condition for scheduled surgery / procedure. PULMONARY: Patient is at optimal Pulmonary status for scheduled surgery / procedure. Patient is at increased risk for postoperative pulmonary complications. Suggest the following in the post-operative period: Continue bronchodilator medications, Aggressive bronchopulmonary hygiene and continue prednisone Following additional test(s) requested for risk assessment / evaluation prior to surgery: CXR ENDOCRINE: STEROID MANAGEMENT: - Advised patient to continue home steroid dose in the perioperative period including day of surgery. VASCULAR/ANTICOAGULATION: VTE prophylaxis as deemed appropriate by the surgical service. Patient is optimally prepared for surgery pending CXR Patient Instructions: As per patient instructions section. I have discussed the above recommendations with the patient in detail, in gely and lay terms, and provided a written summary of instructions as needed. We have discussed that no surgery is without risk, but that the goal of preoperative assessment is to optimize that risk, and that was clearly understood by the patient. I have given ample opportunity for the patient to ask questions, and answered all questions to their stated satisfaction. SIGNATURE: Edgar Olson MD PATIENT NAME: Rosa Blackwood DATE: March 12, 2018 TIME: 2:24 PM PROGRESS Observed: 03/12/2018 Status: COMPLETED Source: [place] 2:16 PM [facility] REPOSITORY HNO ID: [id number] Author: Migel Nelson Service: (none) Author Type: (none) Type: Progress Notes Filed: 03/12/2018 3:22 PM Note Text: Rosa Blackwood is a 57 year old female here today for visit in [facility] Referring Surgeon: Dr. Hsu Date of Surgery: 03/16/2018 Planned Surgery/Procedure: ARTHROPLASTY REPLACE JOINT TOTAL HIP Allergies have been reviewed and verified. They include the following: Ampicillin; Ciprofloxacin; Clindamycin Social History Substance Use Topics - Smoking status: Former Smoker - Smokeless tobacco: Never Used Comment: 10 YEARS AGO - Alcohol use 4.5 oz/week 1 Glasses of Wine (5oz), 1 Cans of Beer (12oz), 1 Mixed Drinks per week Comment: OCCASIONALLY DRINKS ABOVE ALCOHOLIC DRINKS Medications reviewed and updated: Yes Migel Nelson CNOV Observed: 03/12/2018 Status: COMPLETED Source: [place] 2:15 PM [facility] REPOSITORY Office Visit (IMPAMN) ROSA BLACKWOOD ([id number]) 1960 F Date Time Provider Department 03/12/18 2:15 PM EDGAR OLSONAMN During your visit today, we recorded the following information about you: Temperature Pulse Blood pressure Weight 97.9 degrees 85/minute 104/78 79.4 kg Height 1.6 m Migel Nelson 03/12/2018 3:22 PM Signed Rosa Blackwood is a 57 year old female here today for visit in [facility] Referring Surgeon: Dr. Hsu Date of Surgery: 03/16/2018 Planned Surgery/Procedure: ARTHROPLASTY REPLACE JOINT TOTAL HIP Allergies have been reviewed and verified. They include the following: Ampicillin; Ciprofloxacin; Clindamycin Social History Substance Use Topics - Smoking status: Former Smoker - Smokeless tobacco: Never Used Comment: 10 YEARS AGO - Alcohol use 4.5 oz/week 1 Glasses of Wine (5oz), 1 Cans of Beer (12oz), 1 Mixed Drinks per week Comment: OCCASIONALLY DRINKS ABOVE ALCOHOLIC DRINKS Medications reviewed and updated: Yes Migel Olson MD 03/12/2018 3:22 PM Signed HISTORY AND PHYSICAL EXAMINATION (IMPACT) SERVICE DATE: 03/12/2018 SERVICE TIME: 2:24 PM PRIMARY CARE PHYSICIAN: Valeriano Munoz MD CHIEF COMPLAINT/HISTORY OF PRESENT ILLNESS: Ms. Blackwood is a 57 year old female referred to me for preoperative evaluation. My final recommendations will be communicated back to the requesting physician/surgeon by the way of the shared medical record. Referring Surgeon: Dr. 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 Patient is Able to Perform the Following Physical Activity: Partially dependent since november 2017 Patient's functional class is III based on self-reported physical activity. Significant Anesthesia Considerations: None. PAST MEDICAL/SURGICAL/FAMILY/SOCIAL HISTORY PAST MEDICAL HISTORY Diagnosis Date - Current chronic use of systemic steroids - Fibromyalgia - Rheumatoid arthritis (HCC) PAST SURGICAL HISTORY Procedure Laterality Date - CARPAL TUNNEL Bilateral 2002 - CATARACT SURGERY, COMPLEX Bilateral 2017 - DILATION AND CURETTAGE 2014 - KIDNEY SURGERY HX - LUNG BIOPSY 2014 - TOTAL KNEE REPLACEMENT Left 2010 FAMILY HISTORY Problem Relation Age of Onset - Arthritis Mother - Hypertension Mother - Hypertension Father SOCIAL HISTORYSocial History Marital status: Spouse name: Years of education: Number of children: Social History Main Topics Smoking status: Former Smoker Packs/day: 0.00 Years: 0.00 Smokeless tobacco: Never Used Comment: 10 YEARS AGO Alcohol use: Yes 4.5 oz/week Glasses of Wine (5oz): 1, Cans of Beer (12oz): 1, Mixed Drinks: 1 per week Comment: OCCASIONALLY DRINKS ABOVE ALCOHOLIC DRINKS Drug use: No MEDICATIONS/ALLERGIES Current Outpatient Prescriptions: COMPOUNDED PRESCRIPTION Keill Oil 1 cap DACoQ10 1tab DA Disp: Rfl: pentosan polysulfate sodium (ELMIRON ORAL) Take 1 tablet by mouth three times daily. Disp: Rfl: amLODIPine (NORVASC) 5 mg tablet Take 5 mg by mouth once daily. Disp: Rfl: sulfamethoxazole-trimethoprim (BACTRIM DS,SEPTRA DS) 800-160 mg per tablet Take by mouth. Mon, wed, fri Disp: Rfl: predniSONE (DELTASONE) 10 mg tablet Take 10 mg by mouth once daily. Disp: Rfl: buPROPion XL (WELLBUTRIN XL) 300 mg 24 hr tablet Take 300 mg by mouth once daily. Disp: Rfl: azaTHIOprine (IMURAN) 50 mg tablet Take 50 mg by mouth three times daily. 3 tabs daily Disp: Rfl: lidocaine (LIDODERM) 5 % Apply 1 Patch as directed as needed. Disp: Rfl: [id number] ORAL Take by mouth once daily. Disp: Rfl: UBIDECARENONE (CO Q-10 ORAL) Take by mouth once daily. Disp: Rfl: HYDROCODONE/ACETAMINOPHEN (NORCO ORAL) Take 7.5 mg by mouth three times daily. 7.5 - 325 mg Disp: Rfl: LOSARTAN POTASSIUM (LOSARTAN ORAL) Take by mouth. Disp: Rfl: PREGABALIN (LYRICA ORAL) Take 75 mg by mouth. 2 capsules Disp: Rfl: OMEPRAZOLE (PRILOSEC ORAL) Take 40 mg by mouth twice daily. Disp: Rfl: PROGESTERONE MISC Disp: Rfl: ZOLPIDEM TARTRATE (AMBIEN ORAL) Take 12.5 mg by mouth. Disp: Rfl: CYMBALTA 20 MG CAP Take one(1) tablet daily. (Patient taking differently: Take one(1) tablet daily. Pt takes 60 mg not 20mg) Disp: 30 Rfl: 0 WELLBUTRIN XL 150 MG 24 HR TAB Take one(1) tablet daily. (Patient taking differently: Take one(1) tablet daily.300 mg not 150 mg) Disp: 30 Rfl: 0 buprenorphine (BUTRANS) 20 mcg/hour ptwk Apply as directed once each week. Disp: Rfl: losartan (COZAAR) 100 mg tablet Take 100 mg by mouth once daily. Disp: Rfl: DULoxetine (CYMBALTA) 60 mg capsule Take 60 mg by mouth once daily. Disp: Rfl: diclofenac sodium (VOLTAREN) 1 % topical gel Apply to affected area four times daily. Disp: Rfl: sour ballesteros extract (TART BALLESTEROS EXTRACT ORAL) Take by mouth once daily. Disp: Rfl: Fish Oil-DHA-EPA 1,200-144-216 mg cap Take 1,200 mg by mouth once daily. Disp: Rfl: folic acid 1 mg tablet Take 1 mg by mouth once daily. Disp: Rfl: Hydrochlorothiazide 12.5 mg capsule Take 12.5 mg by mouth once daily. Disp: Rfl: ibuprofen (MOTRIN) 400 mg tablet Take 400 mg by mouth every 6 hours as needed. Disp: Rfl: IMIPRAMINE HCL ORAL Take by mouth. Disp: Rfl: CALCIUM CARBONATE (CALCIUM 500 ORAL) Take by mouth once daily. Disp: Rfl: CALCIUM CARBONATE/VITAMIN D3 (VITAMIN D-3 ORAL) Take by mouth once daily. Disp: Rfl: No current facility-administered medications for this visit. ALLERGIES Allergen Reactions - Ampicillin Unknown Told as a child allergic, has had similar meds since - Ciprofloxacin Diarrhea - Clindamycin Diarrhea REVIEW OF SYSTEMS General: No weight loss, malaise or fevers. Neuro: No history of TIA's, stroke, MESH CUTTER tumor, impaired sensorium, hemiplegia, paraplegia or quadriplegia. No neurological symptoms or problems. Respiratory: ILD prednisone and imuran Cardiovascular: Hypertension requiring meds GI: GERD : No history of UTI in past 6 weeks. No history of renal failure. Not currently on or requiring dialysis. No history of symptoms or problems. 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 Endocrine: Steroids for chronic problem currently on prednisone 5 mg Hematology: No history of bleeding or clotting disorder. No history of hematological symptoms or problems. Oncology: No history of CA metastasis, chemo within 30 days, or radiotherapy within 90 days. No history of oncological symptoms or problems. Psych: Depression Skin: Negative for lesions, rash, and itching. PHYSICAL EXAM VITALS: BP 104/78 Pulse 85 Temp (Src) 97.9 (Oral) Ht 5' 3 (1.60m) Wt 175 lb (79.4kg) SpO2 98% LMP 08/18/2006 BMI 31.01 kg/(m2). General: Alert and oriented, on wheel chair no respiratory distress on room air Skin: Normal color, no rash, no lesions. HEENT: Throat clear Cardiovascular: Normal S1 AND S2, no rubs, murmurs or gallops. No JVD. Pulse regular. Lungs: Normal breath sounds, no wheezes or crackles. Abdomen: Soft, non-tender, no rigidity. Extremities: No deformity, no edema or tenderness, no joint swelling or clubbing. Neurological: Normal cognition and motor skills. Pulses: Not examined ASSESSMENT Ms. Blackwood is a 57 year old female referred to me for preoperative evaluation. Patient has the following medical comorbidities which might affect the perioperative course: - Hypertension, well controlled. - ILD -organizing pnemonia Patient's RCRI (Revised Cardiac Risk Index: CAD/CHF/Stroke or TIA/SCr>2/DM on Insulin/High Risk Surgery) score is 0 and is at low risk for major adverse cardiac events in the perioperative period. Diagnostic tests reviewed for today's visit: Most recent labs Most recent imaging CT chest 06/2017 report with diffuse hazy ground glass opacities though out the lung bilaterally mild moderate airway inflammation small nodules Most recent EKG: normal sinus rhythm, normal axis, normal intervals, reviewed by myself. Most recent Echo 06/2017 EF 60% no WMA no valve abnormalities RVSP not measured Most recent PFT 06/2017 normal normal DLCO PLAN/RECOMMENDATIONS CARDIAC: Patient is at optimal cardiac condition for scheduled surgery / procedure. PULMONARY: Patient is at optimal Pulmonary status for scheduled surgery / procedure. Patient is at increased risk for postoperative pulmonary complications. Suggest the following in the post-operative period: Continue bronchodilator medications, Aggressive bronchopulmonary hygiene and continue prednisone Following additional test(s) requested for risk assessment / evaluation prior to surgery: CXR ENDOCRINE: STEROID MANAGEMENT: - Advised patient to continue home steroid dose in the perioperative period including day of surgery. VASCULAR/ANTICOAGULATION: VTE prophylaxis as deemed appropriate by the surgical service. Patient is optimally prepared for surgery pending CXR Patient Instructions: As per patient instructions section. I have discussed the above recommendations with the patient in detail, in gely and lay terms, and provided a written summary of instructions as needed. We have discussed that no surgery is without risk, but that the goal of preoperative assessment is to optimize that risk, and that was clearly understood by the patient. I have given ample opportunity for the patient to ask questions, and answered all questions to their stated satisfaction. SIGNATURE: Edgar Olson MD PATIENT NAME: Rosa Blackwood DATE: March 12, 2018 TIME: 2:24 PM Edgar Olson MD 03/12/2018 3:21 PM Signed [facility] Patient Instructions for Surgery FOOD INSTRUCTIONS: NO solid food or non-clear liquids for 8 hours prior to the arrival time for your surgery. Unless you are instructed otherwise, you are allowed to drink up to 12 ounces of clear liquids (e.g. water, black tea/coffee, fruit juice without pulp, Mami Anu, etc.) up until 2 hours prior to the arrival time for surgery. MEDICATION INSTRUCTIONS: Prior to Surgery: Do not take the following medications for 7 days prior to surgery: - any NSAID's (e.g. Motrin, Aleve, Arthrotec, Naproxen,etc) - any herbal preparations - Aspirin or aspirin containing products - Plavix Do not take any Vitamin E / multivitamins for 10-14 days before surgery You are allowed to take Tylenol if needed until the day of surgery. Continue all medications until the night prior to surgery MEDICATION INSTRUCTIONS: Day/Morning of Surgery: The following medications should be taken with sips of water: prednisone , prilosec amlodipine Opiates (percocet, vicodin, MS contin, darvocet, ultram,etc), if needed for pain, can be taken on morning of surgery. If you have any questions or concerns regarding today's visit please do not hesitate to contact the [facility] center at [phone] or [phone], ext [phone]. Signature: Edgar Olson MD Date: March 12, 2018 Referring Provider: LUI HSU [[id number]] Allergies As of Date: 03/12/2018 Noted Allergy Reaction AMPICILLIN 08/18/2006 16 - Unknown Comments: Told as a child allergic, has had similar meds since CIPROFLOXACIN 07/01/2015 6 - Diarrhea CLINDAMYCIN 07/01/2015 6 - Diarrhea Date Reviewed: 03/12/2018 Reviewed by: Ambreen (Rn) ECHO Contreras - Fully Assessed Primary Visit Diagnosis:Osteonecrosis of left hip (HCC) [M87.9] Other Visit Diagnoses:Pre-operative examination [Z01.818] Osteoarthritis of left hip, unspecified osteoarthritis type [M16.12] Obesity, Class I, BMI 30-34.9 [E66.9] Current chronic use of systemic steroids [Z79.52] ILD (interstitial lung disease) (HCC) [J84.9] Rheumatoid arthritis involving multiple sites, unspecified rheumatoid factor presence (HCC) [M06.9] Order(s):XR CHEST 2V FRONTAL/LAT [[id number]] Order #: [id number] FUTURE Prescriptions as of 03/12/2018 Sig: COMPOUNDED PRESCRIPTION Keill Oil 1 cap DA CoQ10 1ta* ELMIRON ORAL Take 1 tablet by mouth three * AMLODIPINE 5 MG TABLET Take 5 mg by mouth once daily. SULFAMETHOXAZOLE 800 MG-TRIME* Take by mouth. Mon, wed, fri PREDNISONE 10 MG TABLET Take 10 mg by mouth once adama* BUPROPION XL 300 MG 24 HR TAB Take 300 mg by mouth once mary ellen* AZATHIOPRINE 50 MG TABLET Take 50 mg by mouth three len* LIDOCAINE 5 % TOPICAL PATCH Apply 1 Patch as directed as * ZGVFPIC-TCWBFLQNX-RQFR ORAL Take by mouth once daily. CO Q-10 ORAL Take by mouth once daily. NORCO ORAL Take 7.5 mg by mouth three ti* LOSARTAN ORAL Take by mouth. LYRICA ORAL Take 75 mg by mouth. 2 capsul* PRILOSEC ORAL Take 40 mg by mouth twice mary ellen* PROGESTERONE MISC AMBIEN ORAL Take 12.5 mg by mouth. CYMBALTA 20 MG CAPSULE,DELAYE* Take one(1) tablet daily. Patient taking differently: Take one(1) tablet daily. Pt * WELLBUTRIN XL 150 MG 24 HR TA* Take one(1) tablet daily. Patient taking differently: Take one(1) tablet daily.300 * BUPRENORPHINE 20 MCG/HOUR WEE* Apply as directed once each w* LOSARTAN 100 MG TABLET Take 100 mg by mouth once mary ellen* DULOXETINE 60 MG CAPSULE,HANANE* Take 60 mg by mouth once adama* DICLOFENAC 1 % TOPICAL GEL Apply to affected area four t* TART BALLESTEROS EXTRACT ORAL Take by mouth once daily. FISH OIL-DHA-EPA 1,200 MG-144* Take 1,200 mg by mouth once d* FOLIC ACID 1 MG TABLET Take 1 mg by mouth once daily. HYDROCHLOROTHIAZIDE 12.5 MG C* Take 12.5 mg by mouth once da* IBUPROFEN 400 MG TABLET Take 400 mg by mouth every 6 * IMIPRAMINE HCL ORAL Take by mouth. CALCIUM 500 ORAL Take by mouth once daily. VITAMIN D-3 ORAL Take by mouth once daily. Medication notes this encounter FOLIC ACID 1 MG TABLET >> Migel Nelson 03/12/2018 2:32 PM >> MIGEL NELSON ThuMar 12, 2018 2:32 PM IBUPROFEN 400 MG TABLET >> Migel Nelson 03/12/2018 2:32 PM >> MIGEL NELSON ThuMar 12, 2018 2:32 PM ARAVA ORAL >> Migel Nelson 03/12/2018 2:32 PM >> BRENDA NELSONZMINE ThuMar 12, 2018 2:32 PM CEFTIN 250 MG TABLET >> Migel Nelson 03/12/2018 2:32 PM >> BRENDA NELSONZMINE ThuMar 12, 2018 2:32 PM RELAFEN 500 MG TABLET >> Migel Nelson 03/12/2018 2:32 PM >> NELSON MIGEL ThuMar 12, 2018 2:32 PM AVALIDE 150 MG-12.5 MG TABLET >> Migel Nelson 03/12/2018 2:28 PM >> BRENDA NELSONZMINE ThuMar 12, 2018 2:28 PM Problem List As Of Date 03/12/2018 Noted Resolved Current chronic use of systemic steroids [Z79.5*INVALID FOR* Rheumatoid arthritis involving multiple sites (*INVALID FOR* Obesity, Class I, BMI 30-34.9 [E66.9] INVALID FOR* Osteonecrosis of left hip (HCC) [M87.9] INVALID FOR* More... Fibromyalgia [M79.7] INVALID FOR* Vitamin D deficiency [E55.9] INVALID FOR* OA (osteoarthritis) of hip [M16.9] INVALID FOR* More... ILD (interstitial lung disease) (HCC) [J84.9] INVALID FOR* Other instructions from your clinician: [facility] Patient Instructions for Surgery FOOD INSTRUCTIONS: NO solid food or non-clear liquids for 8 hours prior to the arrival time for your surgery. Unless you are instructed otherwise, you are allowed to drink up to 12 ounces of clear liquids (e.g. water, black tea/coffee, fruit juice without pulp, Mami Anu, etc.) up until 2 hours prior to the arrival time for surgery. MEDICATION INSTRUCTIONS: Prior to Surgery: Do not take the following medications for 7 days prior to surgery: - any NSAID's (e.g. Motrin, Aleve, Arthrotec, Naproxen,etc) - any herbal preparations - Aspirin or aspirin containing products - Plavix Do not take any Vitamin E / multivitamins for 10-14 days before surgery You are allowed to take Tylenol if needed until the day of surgery. Continue all medications until the night prior to surgery MEDICATION INSTRUCTIONS: Day/Morning of Surgery: The following medications should be taken with sips of water: prednisone , prilosec amlodipine Opiates (percocet, vicodin, MS contin, darvocet, ultram,etc), if needed for pain, can be taken on morning of surgery. If you have any questions or concerns regarding today's visit please do not hesitate to contact the [facility] at [phone] or [phone], ext [phone]. Signature: Edgar Olson MD Date: March 12, 2018 Medications Discontinued During This Encounter adalimumab (HUMIRA) 40 mg/0.8 mL inj* 03/12/2018 Class: Historical Med Route: SUBCUTANEOUS Sig: Inject 40 mg subcutaneously one time only. 1 injection every 14 days Disc: Discontinued by Patient hydroxychloroquine (PLAQUENIL) 200 m* 03/12/2018 Class: Historical Med Route: ORAL Sig: Take 200 mg by mouth twice daily. Disc: Discontinued by Patient LEFLUNOMIDE (ARAVA ORAL) 03/12/2018 Class: Historical Med Route: ORAL Sig: Take by mouth. Disc: Discontinued by Patient cefUROXime (CEFTIN) 250 mg ORAL Tab 14 0 08/20/2006 03/12/2018 Route: ORAL Sig: Take one(1) tablet two(2) times daily with food. Patient not taking: No sig reported Disc: Discontinued by Patient nabumetone (RELAFEN) 500 mg ORAL Tab 0 08/18/2006 03/12/2018 Class: Med Update Route: ORAL Sig: Take one(1) tablet two(2) times daily. Disc: Discontinued by Patient AVALIDE 150 MG-12.5 MG TAB 30 12 10/04/2005 03/12/2018 Route: ORAL Sig: Take one(1) tablet daily. Patient not taking: No sig reported Disc: Discontinued by Patient Encounter Status:Closed by EDGAR OLSON MD on 03/12/18 EKG1 Observed: 03/12/2018 Status: F Source: [place] 2:03 PM [facility] REPOSITORY NAME : ROSA BLACKWOOD PID : [id number] : 1960 Gender : Female Race : ORD : Procedure Date : Mar 12 2018 14:03:54 Edit Date : Mar 12 2018 17:28:05 Diagnosis:NORMAL SINUS RHYTHM NORMAL ECG Confirmed by CARMELITA HARDIN MD ([id number]) on 03/12/2018 5:28:00 PM Ventricular Rate : 81 BPM Atrial Rate : 81 BPM P-R Interval : 138 ms QRS Duration : 92 ms Q-T Interval : 372 ms QTC Calculation(Bezet) : 432 ms P [place] : 51 degrees R [place] : 11 degrees T [place] : 33 degrees Test Reason : Location : 119 : A17 Overread By : CARMELITA HARDIN MD Edited By : CARMELITA HARDIN MD Referred By : , Acquired by : MARY YUEN STAPH AUREUS PCR Collected: 03/08/2018 Status: F Source: [place] 11:26 PM [facility] [place] REPOSITORY TYPE CODE TESTS RESULT OUT OF REFERENCE UNITS RANGE LAB SASRC Nasal S aureus Spec Source LAB MRSRES Negative for MRSA MRSA by PCR. PCR LAB SARES Negative for Staph Staphylococcus aureus PCR aureus by PCR. Performed By: #### SAPCR #### [facility] [place] [address] URINALYSIS Collected: 03/08/2018 Status: F Source: [place] 5:18 PM [facility] REPOSITORY TYPE CODE TESTS RESULT OUT OF RANGE REFERENCE UNITS LAB UCOL Yellow Color Abnormal Mady Alert LAB [facility] Clear Clarity Abnormal Cloudy Alert LAB UGLUC Negative mg/dL Glucose, Urine Negative LAB UBIL Negative Bilirubin, Urine Negative LAB UKET Negative Ketones, Abnormal Urine Trace Alert LAB USPG 1.005-1.030 Specific [place], Ur 1.030 LAB UHGB Negative Hemoglobin/Blood, Negative Ur LAB UPH 4.5-8.0 pH 5.0 LAB UPROT Negative mg/dL Protein, Abnormal Urine 30 Alert LAB UUROB Normal Urobilinogen Normal LAB UNITR Negative Nitrites Negative LAB ULKEST Negative Leukest Negative LAB UCOM Comments SEE COMMENT Result Comment: Microscopic Examination Performed LAB UWBC 0-5 /HPF WBC 0-5 LAB URBC 0-3 /HPF Abnormal RBC Alert 3-5 LAB UEPI /HPF Epithelial Cells SEE COMMENT Result Comment: Few Squamous Epithelial Cells LAB UMCOM Urine SEE Russell Comment COMMENT Result Comment: N/A LAB UCRYS 0 /HPF Abnormal Alert Crystals SEE COMMENT Result Comment: Few Calcium Oxalate Crystal Performed By: #### UA #### [facility] [place], [place] [address] CONFIRM BLOOD TYPE Collected: 03/08/2018 Status: F Source: [place] 4:45 PM [facility] REPOSITORY TYPE CODE TESTS RESULT OUT OF REFERENCE UNITS RANGE LAB %ABR A ABO/RH(D) POSITIVE Performed By: #### CONABO #### [facility] [address] [place], [place] [address] CBC AND DIFFERENTIAL Collected: 03/08/2018 Status: F Source: [place] 4:40 PM [facility] REPOSITORY TYPE CODE TESTS RESULT OUT OF REFERENCE UNITS RANGE LAB WBC 3.70-11.00 k/uL WBC 5.49 LAB RBC 3.90-5.20 m/uL RBC 4.43 LAB HGB 11.5-15.5 g/dL Hemoglobin 12.8 LAB HCT 36.0-46.0 % Hematocrit 40.9 LAB MCV 80.0-100.0 fL MCV 92.3 LAB MCH 26.0-34.0 pG MCH 28.9 LAB MCHC 30.5-36.0 g/dL MCHC 31.3 LAB RDWCV 11.5-15.0 % RDW-CV High 17.2 LAB PLTCT 150-400 k/uL Platelet High Count 433 LAB MPV 9.0-12.7 fL MPV 10.3 LAB ANEUT % Neut% 70.6 LAB AANEUT 1.45-7.50 k/uL Abs Neut 3.86 LAB ALYMP % Lymph% 19.3 LAB AALYMP 1.00-4.00 k/uL Abs Lymph 1.06 LAB AMONO % Uinta% 8.2 LAB AAMONO <0.87 k/uL Abs [place]inta 0.45 LAB AEOS % Eosin% 1.5 LAB AAEOS <0.46 k/uL Abs Eosin 0.08 LAB ABASO % Baso% 0.4 LAB AABASO <0.11 k/uL Abs Baso <0.03 LAB AUNRBC 0 /100 WBC NRBCs 0.0 LAB ABNRBC <0.01 k/uL Absolute nRBC <0.01 LAB DTYP DTYPE Auto Diff Performed By: #### CBCDIF, WSR, VITD, BMP, CRP #### [facility] [address] [place], [place] [address] SED RATE WESTERGREN Collected: 03/08/2018 Status: F Source: [place] 4:40 PM [facility] REPOSITORY TYPE CODE TESTS RESULT OUT OF REFERENCE UNITS RANGE LAB WSR 0-20 mm/hr Sed Rate High [place] 31 Performed By: #### CBCDIF, WSR, VITD, BMP, CRP #### [facility] [address] [place] [id number] VITAMIN D 25 HYDROXY Collected: 03/08/2018 Status: F Source: [place] 4:40 PM [facility] REPOSITORY TYPE CODE TESTS RESULT OUT OF REFERENCE UNITS RANGE LAB VITD 31.0-80.0 ng/mL Vitamin D 25 53.6 Hydroxy Result Comment: Classification of 25 [place] Vitamin D status: Insufficiency/Moderate Deficiency: < or = 30 ng/mL Sufficiency/Optimal Levels: 31 to 80 ng/mL Toxicity: > 100 ng/mL Test performed by chemiluminescent immunoassay. Performed By: #### CBCDIF, WSR, VITD, BMP, CRP #### [facility] [address] [place], [place] [address] BASIC METABOLIC PANL Collected: 03/08/2018 Status: F Source: [place] 4:40 [facility] REPOSITORY TYPE CODE TESTS RESULT OUT OF REFERENCE UNITS RANGE LAB GLU 74-99 mg/dL Glucose 95 Result Comment: The [place] [employer] (ADA) provides guidance for cutoff values for fasting glucose and random glucose. The ADA defines fasting as no caloric intake for at least 8 hours. Fas ting plasma glucose results between 100 to 125 mg/dL indicate increased risk for diabetes (prediabetes). Fasting plasma glucose results greater than or equal to 126 mg/dL meet the criteria for diagnosis of diabetes. In the absence of unequivocal hyperglycemia, results should be confirmed by repeat testing. In a patient with classic symptoms of hyperglycemia or hyperglycemic crisis, random plasma glucose results greater than or equal to 200 mg/dL meet the criteria for diagnosis of diabetes. Reference: Standards of Medical Care in Diabetes 2016, [place] [employer]. Diabetes Care. 2016.39(Suppl 1). LAB BUN 7-21 mg/dL BUN 18 LAB CRET 0.58-0.96 mg/dL Creatinine High 1.22 LAB NA 136-144 mmol/L Sodium 144 LAB K 3.7-5.1 mmol/L Potassium 4.1 LAB CL 97-105 mmol/L Chloride 102 LAB CO2 22-30 mmol/L CO2 27 LAB AGAP 9-18 mmol/L Anion Gap 15 LAB CA 8.5-10.2 mg/dL Calcium, High Total 10.6 LAB GFRAA eGFR- Amer. 55 LAB GFRNAA . eGFR-All Other Races 46 Result Comment: eGFR (Estimated GFR) Units of measure: mL/min/1.73 meters squared eGFR is derived from the reexpressed MDRD Study equation using the following parameters: serum creatinine, age, gender and race. The creatinine assay has been calibrated to be traceable to IDMS. An eGFR <60 mL/min/1.73m2 for >3 months is consistent with chronic kidney disease. Refer to KDOQI guidelines for clinical interpretation. In patients with unstable renal function, e.g. those with acute kidney injury, the eGFR may not accurately reflect actual GFR. Performed By: #### CBCDIF, WSR, VITD, BMP, CRP #### [facility] [address] [place], [place] [address] C-REACTIVE PROTEIN Collected: 03/08/2018 Status: F Source: [place] 4:40 PM [facility] REPOSITORY TYPE CODE TESTS RESULT OUT OF REFERENCE UNITS RANGE LAB CRP <0.9 mg/dL C-Reactive 0.2 Protein Performed By: #### CBCDIF, WSR, VITD, BMP, CRP #### [facility] [address] [place], [place] [address] TYPE AND SCR (30D) Collected: 03/08/2018 Status: F Source: [place] 4:40 PM [facility] REPOSITORY TYPE CODE TESTS RESULT OUT OF REFERENCE UNITS RANGE LAB %ABR A ABO/RH(D) POSITIVE LAB % Antibody NEG Screen Performed By: #### [id number] #### [facility] [address] [place], [place] [address] XR HIP 3V PELV+ Observed: 03/08/2018 Status: F Source: [place] AP/LAT LT 4:10 PM [facility] REPOSITORY * * *Final Report* * * DATE OF EXAM: Mar 08 2018 4:10PM [address] - XR HIP 3V PELV+ AP/LAT LT / PROCEDURE REASON: multiple diagnoses * * * * Physician Interpretation * * * * EXAMINATION: XR HIP 3V PELV+ AP/LAT LT HISTORY: chronic pain left hip, follow up before surgery Osteonecrosis of left hip (HCC) Other specified rheumatoid arthritis, multiple sites (HCC) Fibromyalgia Obesity, Class I, BMI 30-34.9. TECHNIQUE: XR HIP 3V PELV+ AP/LAT LT Laterality: LEFT Number of different views (projections): 3 M: XB_1 COMPARISON: 01/26/2018 RESULT: Note is collapse of the femoral head articular surface with complete loss of the superior hip joint space probably due to advanced osteoarthritis or avascular necrosis which has progressed since prior exam. There has interval superior and lateral displacement of the left femoral neck relative to the femoral head. There is a small bony fragment in the inferior joint which measures approximately 2.1 cm. The pelvic ring is intact. SI joints, sacral alar and pubic symphysis are unremarkable. The right hip is normal without fracture or subluxation. Degenerative changes of the lumbar spine. No other significant abnormality. IMPRESSION: Progression of femoral head articular surface collapse probably due to rapidly progressive osteoarthritis or avascular necrosis with new displacement of the femoral neck concerning for a subcapital femoral neck fracture. Certified Registered Dental Assistant: PSCB Transcribe Date/Time: Mar 09 2018 7:43A Dictated by : MISTY WHITMAN MD This examination was interpreted and the report reviewed and electronically signed by: ALEX SANCHEZ MD on Mar 09 2018 9:07AM EST [id number] PROGRESS Observed: 03/08/2018 Status: COMPLETED Source: [place] 4:09 PM [facility] REPOSITORY O ID: [id number] Author: Earlene Mcnamara Ct Service: (none) Author Type: (none) Type: Progress Notes Filed: 03/08/2018 4:09 PM Note Text: Radiology Service Progress Note PATIENT NAME: Rosa Blackwood DATE OF SERVICE: March 08, 2018 TIME: 4:09 PM PATIENT IDENTITY VERIFICATION COMPLETED USING TWO (2) METHODS: Patient confirmed name verbally and ID band matches.. PATIENT GENDER DATA: Female. status: : No status: NO. PATIENT RELEVANT IMPLANT DATA REVIEWED: Not Applicable RADIOLOGY DEPARTMENT: General X-ray: Exam(s) Completed: Pelvis X-Ray: Pelvis with Hip Left PERIPHERAL IV DATA: Not applicable SIGNED BY: Earlene Parra March 08, 2018 4:09 PM PROGRESS Observed: 03/08/2018 Status: COMPLETED Source: [place] 1:55 PM [facility] REPOSITORY HNO ID: [id number] Author: Lui Hsu Service: (none) Author Type: Physician Type: Progress Notes Filed: 03/08/2018 2:12 PM Note Text: CONSULT ORTHOPAEDIC: HIP PRIMARY CARE PHYSICIAN: Valeriano Munoz MD REFERRING PROVIDER: Carlos Shipman MD [id number] [facility] [address] Ms. Blackwood is 57-year-old woman with the history of rheumatoid arthritis diagnosed 5 years ago. She's been 3 years of prednisone. She presents with the's significant increase in right hip pain beginning in November and rapid progression of pain and disability in the past 4 weeks. She is able to stand and walk for only 20 or 30 feet despite use of walker or cane. She suffered profound collapse of the left femoral head secondary to osteonecrosis with subluxation near dislocation at this point. Radiographs show maintenance of the contralateral hip without evidence of osteonecrosis on MR. Past medical history includes a delayed union of the fracture in her right foot as well as a history of back pain and shoulder pain and neck pain evaluated recently using MRI. She's had an increasing urinary incontinence and urgency since her hip pain became worse. Left hip, however, is by far her most profound limitation. She is in fact tearful at the thought of any delay in surgical intervention DIAGNOSIS: 1) Stage osteonecrosis left hip with subluxation 2) Rheumatoid arthritis steroid dependent 3) Fibromyalgia 4) Back pain 5) Neck pain 6) Shoulder pain 7) Delayed union fracture right foot RECOMMENDATIONS and PLANS: 1) Surgery: Left hip arthroplasty using uncemented technique rapid recovery program is clearly indicated. But 1-2 day hospital stay with discharge to home. Alexandra citation femoral complement and Trident cup planned. We will attempt to schedule 8 days from now with appropriate preoperative clearance. 2) Radiographs or Imaging Studies ordered today: AP pelvis and AP and lateral radius of the left hip 3) Labs ordered today: PCR, CBC, ESR, CRP, 25-hydroxy vitamin D, urinalysis 4) Medications: Continue current 5) Injection: Not indicated 6) Exercise: Functional movement using walker or cane as able for transfers and hygiene. 7) Physical Therapy: [facility] for postop 8) Orthotics: None 9) Diet: No change 10) Consultations: IMPACT 11) Next Appointment: Date of surgery ASSESSMENT AND PLAN: Impression: Left Avascular Necrosis, Steroid Induced Rosa Blackwood has radiograph and physical exam evidence of degenerative joint disease and wishes to pursue surgery. This patient appears to have sufficient symptoms to warrant surgical intervention and is an appropriate candidate for left Primary Total Hip Arthroplasty as evidenced by six months of unsuccessful non-operative treatment as outlined in the HPI below and progressive symptoms. Progressive symptoms include: Pain impacting sleep or causing fatigue Pain impacting work Pain worsened by weight bearing Pain effecting living situation Pain limiting ability to stay fit and healthy. We had a lengthy discussion regarding the risk and benefit of surgery, the alternatives, limitations and personnel involved. These included but were not limited to infection, persistent pain, instability, nerve injury, blood clots, and medical complications. We also discussed the pre-operative course, surgery itself and rehabilitation. [place]-operative blood management and transfusion issues were discussed, and options clearly outlined. The patient has consented to the use of the banked allogenic blood if medically necessary. The patient has elected to schedule surgery at this time or intends to call the office with a surgical date. Shared decision making occurred while obtaining informed consent. The patient will be scheduled for a pre-operative education class at which time they will have their nasal swab completed and will be given CHG cloths along with the verbal and written instructions for their use. The patient has been ordered: Nasal Swab Culture ESR CRP 25-hydroxy vitamin D urinalysis CONSULTS: IMPACT/PACE Consult for preoperative clearance. ACTIVE PROBLEM LIST Current Chronic Use of Systemic Steroids Rheumatoid Arthritis (Hcc) Obesity, Class I, Bmi 30-34.9 SUBJECTIVE CHIEF COMPLAINT: Hip Pain HPI: Rosa Blackwood is a 57 year old female here for evaluation and management of Left hip pain. She has had progressive problems with the hip(s) constantly over the past 6 month(s) interfering with activities which include All activities including sitting. The problem began limiting activities 1-6 months ago. Currently the pain in the joint is rated at 10 out of 10 with minimal activity. The pain is constant and is located in the left hip. The pain is described as aching. Relieving factors include no relieving factors. There is no specific incident that brought about this pain. She also complains of delayed union fracture right foot currently wearing normal shoes.. FUNCTIONAL STATUS: Walk indoors, such as around the house (1.75 METs) Preoperative Ambulatory Status: Impaired Home Distances Number of Entry Steps: 1 Bedroom Location: Split-level 4 steps down Bathroom Location: First floor Caregiver Assistance: Consistent/Live-In (5-7 days/wk) Home Location: [place] PREVIOUS TREATMENTS: Use of cane and walker. REVIEW OF SYSTEMS: Surgical Risk Factors: Autoimmune Disease and Chronic steroid use PAST MEDICAL HISTORY Diagnosis Date - Current chronic use of systemic steroids - Fibromyalgia - Rheumatoid arthritis (HCC) PAST SURGICAL HISTORY Procedure Laterality Date - CARPAL TUNNEL Bilateral 2002 - CATARACT SURGERY, COMPLEX Bilateral 2018 - DILATION AND CURETTAGE 2014 - KIDNEY SURGERY HX - LUNG BIOPSY 2014 - TOTAL KNEE REPLACEMENT Left 2011 FAMILY HISTORY Problem Relation Age of Onset - Arthritis Mother - Hypertension Mother - Hypertension Father Social History Marital status: Spouse name: Years of education: Number of children: Social History Main Topics Smoking status: Former Smoker Packs/day: 0.00 Years: 0.00 Smokeless tobacco: Never Used Comment: 10 YEARS AGO Alcohol use: Yes 4.5 oz/week Glasses of Wine (5oz): 1, Cans of Beer (12oz): 1, Mixed Drinks: 1 per week Comment: OCCASIONALLY DRINKS ABOVE ALCOHOLIC DRINKS Drug use: No ALLERGIES: Ampicillin; Ciprofloxacin; Clindamycin MEDICATIONS: amLODIPine (NORVASC) 5 mg tablet Take 5 mg by mouth once daily. sulfamethoxazole-trimethoprim (BACTRIM DS,SEPTRA DS) 800-160 mg per tablet Take by mouth. Mon, wed, fri buprenorphine (BUTRANS) 20 mcg/hour ptwk Apply as directed once each week. losartan (COZAAR) 100 mg tablet Take 100 mg by mouth once daily. predniSONE (DELTASONE) 10 mg tablet Take 10 mg by mouth once daily. buPROPion XL (WELLBUTRIN XL) 300 mg 24 hr tablet Take 300 mg by mouth once daily. DULoxetine (CYMBALTA) 60 mg capsule Take 60 mg by mouth once daily. azaTHIOprine (IMURAN) 50 mg tablet 3 tabs daily lidocaine (LIDODERM) 5 % Apply 1 Patch as directed as needed. diclofenac sodium (VOLTAREN) 1 % topical gel Apply to affected area four times daily. sour ballesteros extract (TART BALLESTEROS EXTRACT ORAL) Take by mouth once daily. [id number]-[id number] ORAL Take by mouth once daily. hydroxychloroquine (PLAQUENIL) 200 mg tablet Take 200 mg by mouth twice daily. adalimumab (HUMIRA) 40 mg/0.8 mL injection Inject 40 mg subcutaneously one time only. 1 injection every 14 days UBIDECARENONE (CO Q-10 ORAL) Take by mouth once daily. Fish Oil-DHA-EPA 1,200-144-216 mg cap Take 1,200 mg by mouth once daily. folic acid 1 mg tablet Take 1 mg by mouth once daily. Hydrochlorothiazide 12.5 mg capsule Take 12.5 mg by mouth once daily. HYDROCODONE/ACETAMINOPHEN (NORCO ORAL) Take 7.5 mg by mouth four times daily as needed. 7.5 - 325 mg ibuprofen (MOTRIN) 400 mg tablet Take 400 mg by mouth every 6 hours as needed. IMIPRAMINE HCL ORAL Take by mouth. LEFLUNOMIDE (ARAVA ORAL) Take by mouth. LOSARTAN POTASSIUM (LOSARTAN ORAL) Take by mouth. PREGABALIN (LYRICA ORAL) Take 75 mg by mouth. OMEPRAZOLE (PRILOSEC ORAL) Take by mouth twice daily. PROGESTERONE MISC ZOLPIDEM TARTRATE (AMBIEN ORAL) Take 12.5 mg by mouth. CALCIUM CARBONATE (CALCIUM 500 ORAL) Take by mouth. CALCIUM CARBONATE/VITAMIN D3 (VITAMIN D-3 ORAL) Take by mouth. cefUROXime (CEFTIN) 250 mg ORAL Tab Take one(1) tablet two(2) times daily with food. nabumetone (RELAFEN) 500 mg ORAL Tab Take one(1) tablet two(2) times daily. CYMBALTA 20 MG CAP Take one(1) tablet daily. WELLBUTRIN XL 150 MG 24 HR TAB Take one(1) tablet daily. AVALIDE 150 MG-12.5 MG TAB Take one(1) tablet daily. PHYSICAL EXAM There were no vitals taken for this visit. All other systems deferred. GENERAL: Appears healthy, well-nourished, no deformities. HABITUS: Obese GAIT: Antalgic to the left HIP EXAM: Left: ROM: Extension: Normal Flexion: 110 degrees Internal Rotation: 30 degrees External Rotation: 30 degrees Abduction: 40 degrees Adduction: 30 degrees Strength: Abduction 5/5 and Flexion 5/5 Palpation: No tenderness Log roll: non-painful. Straight leg raise: Negative Neurovascular Status: Sensation Intact and Moves foot and ankle up AND down DATA: Diagnostic tests reviewed for today's visit: Radiographs of the left hip 6 weeks ago before dramatic increase in pain and documented collapse show [id number] changes with grade 4 osteonecrosis. MRI scan more recently shows grade 5 changes with collapse and 1 cm lateral subluxation of the right hip. Cystoscopy with rapidly progressive severely debilitating symptoms. SIGNATURE: Lui Hsu MD PATIENT NAME: Rosa Blackwood DATE: March 08, 2018 TIME: 1:55 PM CNOV Observed: 03/08/2018 Status: COMPLETED Source: [place] 12:00 PM [facility] REPOSITORY Office Visit (ORTHMN) ROSA BLACKWOOD ([id number]) 1960 F Date Time Provider Department 03/08/18 12:00 PM LUI HSU During your visit today, we recorded the following information about you: Lui Hsu MD 03/08/2018 2:12 PM Signed CONSULT ORTHOPAEDIC: HIP PRIMARY CARE PHYSICIAN: Valeriano Munoz MD REFERRING PROVIDER: Carlos Shipman MD [id number] [facility] [place] [address] Ms. Blackwood is 57-year-old woman with the history of rheumatoid arthritis diagnosed 5 years ago. She's been 3 years of prednisone. She presents with the's significant increase in right hip pain beginning in November and rapid progression of pain and disability in the past 4 weeks. She is able to stand and walk for only 20 or 30 feet despite use of walker or cane. She suffered profound collapse of the left femoral head secondary to osteonecrosis with subluxation near dislocation at this point. Radiographs show maintenance of the contralateral hip without evidence of osteonecrosis on MR. Past medical history includes a delayed union of the fracture in her right foot as well as a history of back pain and shoulder pain and neck pain evaluated recently using MRI. She's had an increasing urinary incontinence and urgency since her hip pain became worse. Left hip, however, is by far her most profound limitation. She is in fact tearful at the thought of any delay in surgical intervention DIAGNOSIS: 1) Stage osteonecrosis left hip with subluxation 2) Rheumatoid arthritis steroid dependent 3) Fibromyalgia 4) Back pain 5) Neck pain 6) Shoulder pain 7) Delayed union fracture right foot RECOMMENDATIONS and PLANS: 1) Surgery: Left hip arthroplasty using uncemented technique rapid recovery program is clearly indicated. But 1-2 day hospital stay with discharge to home. Alexandra citation femoral complement and Trident cup planned. We will attempt to schedule 8 days from now with appropriate preoperative clearance. 2) Radiographs or Imaging Studies ordered today: AP pelvis and AP and lateral radius of the left hip 3) Labs ordered today: PCR, CBC, ESR, CRP, 25-hydroxy vitamin D, urinalysis 4) Medications: Continue current 5) Injection: Not indicated 6) Exercise: Functional movement using walker or cane as able for transfers and hygiene. 7) Physical Therapy: [facility] for postop 8) Orthotics: None 9) Diet: No change 10) Consultations: IMPACT 11) Next Appointment: Date of surgery ASSESSMENT AND PLAN: Impression: Left Avascular Necrosis, Steroid Induced Rosa Blackwood has radiograph and physical exam evidence of degenerative joint disease and wishes to pursue surgery. This patient appears to have sufficient symptoms to warrant surgical intervention and is an appropriate candidate for left Primary Total Hip Arthroplasty as evidenced by six months of unsuccessful non-operative treatment as outlined in the HPI below and progressive symptoms. Progressive symptoms include: Pain impacting sleep or causing fatigue Pain impacting work Pain worsened by weight bearing Pain effecting living situation Pain limiting ability to stay fit and healthy. We had a lengthy discussion regarding the risk and benefit of surgery, the alternatives, limitations and personnel involved. These included but were not limited to infection, persistent pain, instability, nerve injury, blood clots, and medical complications. We also discussed the pre-operative course, surgery itself and rehabilitation. Elba-operative blood management and transfusion issues were discussed, and options clearly outlined. The patient has consented to the use of the banked allogenic blood if medically necessary. The patient has elected to schedule surgery at this time or intends to call the office with a surgical date. Shared decision making occurred while obtaining informed consent. The patient will be scheduled for a pre- operative education class at which time they will have their nasal swab completed and will be given CHG cloths along with the verbal and written instructions for their use. The patient has been ordered: Nasal Swab Culture ESR CRP 25-hydroxy vitamin D urinalysis CONSULTS: IMPACT/PACE Consult for preoperative clearance. ACTIVE PROBLEM LIST Current Chronic Use of Systemic Steroids Rheumatoid Arthritis (Hcc) Obesity, Class I, Bmi 30-34.9 SUBJECTIVE CHIEF COMPLAINT: Hip Pain HPI: Rosa Blackwood is a 57 year old female here for evaluation and management of Left hip pain. She has had progressive problems with the hip(s) constantly over the past 6 month(s) interfering with activities which include All activities including sitting. The problem began limiting activities 1- 6 months ago. Currently the pain in the joint is rated at 10 out of 10 with minimal activity. The pain is constant and is located in the left hip. The pain is described as aching. Relieving factors include no relieving factors. There is no specific incident that brought about this pain. She also complains of delayed union fracture right foot currently wearing normal shoes.. FUNCTIONAL STATUS: Walk indoors, such as around the house (1.75 METs) Preoperative Ambulatory Status: Impaired Home Distances Number of Entry Steps: 1 Bedroom Location: Split-level 4 steps down Bathroom Location: First floor Caregiver Assistance: Consistent/Live-In (5-7 days/wk) Home Location: [place] PREVIOUS TREATMENTS: Use of cane and walker. REVIEW OF SYSTEMS: Surgical Risk Factors: Autoimmune Disease and Chronic steroid use PAST MEDICAL HISTORY Diagnosis Date - Current chronic use of systemic steroids - Fibromyalgia - Rheumatoid arthritis (HCC) PAST SURGICAL HISTORY Procedure Laterality Date - CARPAL TUNNEL Bilateral 2003 - CATARACT SURGERY, COMPLEX Bilateral 2018 - DILATION AND CURETTAGE 2015 - KIDNEY SURGERY HX - LUNG BIOPSY 2015 - TOTAL KNEE REPLACEMENT Left 2011 FAMILY HISTORY Problem Relation Age of Onset - Arthritis Mother - Hypertension Mother - Hypertension Father Social History Marital status: Spouse name: Years of education: Number of children: Social History Main Topics Smoking status: Former Smoker Packs/day: 0.00 Years: 0.00 Smokeless tobacco: Never Used Comment: 10 YEARS AGO Alcohol use: Yes 4.5 oz/week Glasses of Wine (5oz): 1, Cans of Beer (12oz): 1, Mixed Drinks: 1 per week Comment: OCCASIONALLY DRINKS ABOVE ALCOHOLIC DRINKS Drug use: No ALLERGIES: Ampicillin; Ciprofloxacin; Clindamycin MEDICATIONS: amLODIPine (NORVASC) 5 mg tablet Take 5 mg by mouth once daily. sulfamethoxazole-trimethoprim (BACTRIM DS,SEPTRA DS) 800-160 mg per tablet Take by mouth. Mon, wed, fri buprenorphine (BUTRANS) 20 mcg/hour ptwk Apply as directed once each week. losartan (COZAAR) 100 mg tablet Take 100 mg by mouth once daily. predniSONE (DELTASONE) 10 mg tablet Take 10 mg by mouth once daily. buPROPion XL (WELLBUTRIN XL) 300 mg 24 hr tablet Take 300 mg by mouth once daily. DULoxetine (CYMBALTA) 60 mg capsule Take 60 mg by mouth once daily. azaTHIOprine (IMURAN) 50 mg tablet 3 tabs daily lidocaine (LIDODERM) 5 % Apply 1 Patch as directed as needed. diclofenac sodium (VOLTAREN) 1 % topical gel Apply to affected area four times daily. sour ballesteros extract (TART BALLESTEROS EXTRACT ORAL) Take by mouth once daily. CTRAZAG-QTRXREAAE-QZWA ORAL Take by mouth once daily. hydroxychloroquine (PLAQUENIL) 200 mg tablet Take 200 mg by mouth twice daily. adalimumab (HUMIRA) 40 mg/0.8 mL injection Inject 40 mg subcutaneously one time only. 1 injection every 14 days UBIDECARENONE (CO Q-10 ORAL) Take by mouth once daily. Fish Oil-DHA-EPA 1,200-144-216 mg cap Take 1,200 mg by mouth once daily. folic acid 1 mg tablet Take 1 mg by mouth once daily. Hydrochlorothiazide 12.5 mg capsule Take 12.5 mg by mouth once daily. HYDROCODONE/ACETAMINOPHEN (NORCO ORAL) Take 7.5 mg by mouth four times daily as needed. 7.5 - 325 mg ibuprofen (MOTRIN) 400 mg tablet Take 400 mg by mouth every 6 hours as needed. IMIPRAMINE HCL ORAL Take by mouth. LEFLUNOMIDE (ARAVA ORAL) Take by mouth. LOSARTAN POTASSIUM (LOSARTAN ORAL) Take by mouth. PREGABALIN (LYRICA ORAL) Take 75 mg by mouth. OMEPRAZOLE (PRILOSEC ORAL) Take by mouth twice daily. PROGESTERONE MISC ZOLPIDEM TARTRATE (AMBIEN ORAL) Take 12.5 mg by mouth. CALCIUM CARBONATE (CALCIUM 500 ORAL) Take by mouth. CALCIUM CARBONATE/VITAMIN D3 (VITAMIN D-3 ORAL) Take by mouth. cefUROXime (CEFTIN) 250 mg ORAL Tab Take one(1) tablet two(2) times daily with food. nabumetone (RELAFEN) 500 mg ORAL Tab Take one(1) tablet two(2) times daily. CYMBALTA 20 MG CAP Take one(1) tablet daily. WELLBUTRIN XL 150 MG 24 HR TAB Take one(1) tablet daily. AVALIDE 150 MG-12.5 MG TAB Take one(1) tablet daily. PHYSICAL EXAM There were no vitals taken for this visit. All other systems deferred. GENERAL: Appears healthy, well-nourished, no deformities. HABITUS: Obese GAIT: Antalgic to the left HIP EXAM: Left: ROM: Extension: Normal Flexion: 110 degrees Internal Rotation: 30 degrees External Rotation: 30 degrees Abduction: 40 degrees Adduction: 30 degrees Strength: Abduction 5/5 and Flexion 5/5 Palpation: No tenderness Log roll: non-painful. Straight leg raise: Negative Neurovascular Status: Sensation Intact and Moves foot and ankle up AND down DATA: Diagnostic tests reviewed for today's visit: Radiographs of the left hip 6 weeks ago before dramatic increase in pain and documented collapse show rbsa-ut-[id number] changes with grade 4 osteonecrosis. MRI scan more recently shows grade 5 changes with collapse and 1 cm lateral subluxation of the right hip. Cystoscopy with rapidly progressive severely debilitating symptoms. SIGNATURE: Lui Hsu MD PATIENT NAME: Rosa Blackwood DATE: March 08, 2018 TIME: 1:55 PM Lui Hsu MD 03/08/2018 2:14 PM Signed Addended by: LUI HSU MD on: 03/08/2018 02:14 PM Modules accepted: JUVENTINO Villela RN 03/08/2018 2:26 PM Signed Addended by: KIMBERLY MCDONOUGH on: 03/08/2018 02:26 PM Modules accepted: River Ross MD 03/08/2018 2:28 PM Signed Addended by: LUI HSU MD on: 03/08/2018 02:28 PM Modules accepted: Orders Referring Provider: CARLOS SHIPMAN [[id number]] Allergies As of Date: 03/08/2018 Noted Allergy Reaction AMPICILLIN 08/18/2006 16 - Unknown Comments: Told as a child allergic, has had similar meds since CIPROFLOXACIN 07/01/2015 6 - Diarrhea CLINDAMYCIN 07/01/2015 6 - Diarrhea Date Reviewed: 03/08/2018 Reviewed by: Luisa Finn Ma - Fully Assessed Reason for Visit: Left Hip Pain [1555] Primary Visit Diagnosis:Other specified rheumatoid arthritis, multiple sites (HCC) [M06.89] Other Visit Diagnoses:Osteonecrosis of left hip (HCC) [M87.9] Fibromyalgia [M79.7] Obesity, Class I, BMI 30-34.9 [E66.9] Current chronic use of systemic steroids [Z79.52] Vitamin D deficiency [E55.9] Order(s):STAPH [facility]UREUS PCR [SQSAPCR] Order #: [id number] CBC + DIFF [SQCBCDIF] Order #: [id number] FUTURE C-REACTIVE PROTEIN (CRP) [SQCRP] Order #: [id number] FUTURE SED RATE WESTERGREN [SQWSR] Order #: [id number] FUTURE VITAMIN D 25 HYDROXY [SQVITD] Order #: [id number] FUTURE UA CHEMSTRIP ONLY [SQUA] Order #: [id number] FUTURE BASIC METABOLIC PNL [SQBMP] Order #: [id number] FUTURE XR HIP GENERAL 3V PELV/AP/LAT LT [1863580] Order #: [id number] FUTURE SURGICAL REQUEST - ELECTIVE [7149610] Order #: [id number]: 1 BASIC METABOLIC PNL [SQBMP] Order #: [id number] FUTURE CBC + DIFF [SQCBCDIF] Order #: [id number] FUTURE TYPE + SCREEN,30 DAY [YLRURP10] Order #: [id number] FUTURE CONFIRM BLOOD TYPE [SQCONABO] Order #: [id number] FUTURE ECG COMPLETE W INTERPRETATION [ECG01] Order #: [id number] FUTURE CONSULT TO PHYSICAL THERAPY [9032] Order #: [id number]: 1 CONSULT TO INT MED-IMPACT [2270909] Order #: [id number]: 1 [facility] [2020431] Order #: [id number] CONSULT TO ANESTHESIOLOGY [900] Order #: [id number]: 1 REFER FOR ADMIT INTERVIEW [] Order #: [id number] YAZ PT ED ORTHOPEDIC [] Order #: [id number]: 1 YAZ WHAT TO EXPECT DURING YOUR HOSPITAL STAY [] Order #: [id number]: 1 UA CHEMSTRIP ONLY [SQUA] Order #: [id number] FUTURE XR HIP GENERAL 3V PELV/AP/LAT LT [[id number]] Order #: [id number] FUTURE XR HIP GENERAL 3V PELV/AP/LAT LT [8828944] Order #: [id number] FUTURE VITAMIN D 25 HYDROXY [SQVITD] Order #: [id number] FUTURE YAZ PT ED ORTHOPEDIC [] Order #: [id number]. #:[id number]: 1 Prescriptions as of 03/08/2018 Sig: AMLODIPINE 5 MG TABLET Take 5 mg by mouth once daily. SULFAMETHOXAZOLE 800 MG-TRIME* Take by mouth. Mon, wed, fri BUPRENORPHINE 20 MCG/HOUR WEE* Apply as directed once each w* LOSARTAN 100 MG TABLET Take 100 mg by mouth once mary ellen* PREDNISONE 10 MG TABLET Take 10 mg by mouth once adama* BUPROPION XL 300 MG 24 HR TAB Take 300 mg by mouth once mary ellen* DULOXETINE 60 MG CAPSULE,HANANE* Take 60 mg by mouth once adama* AZATHIOPRINE 50 MG TABLET 3 tabs daily LIDOCAINE 5 % TOPICAL PATCH Apply 1 Patch as directed as * DICLOFENAC 1 % TOPICAL GEL Apply to affected area four t* TART BALLESTEROS EXTRACT ORAL Take by mouth once daily. XDKPVMQ-REFZGDDRN-ACGL ORAL Take by mouth once daily. HYDROXYCHLOROQUINE 200 MG TAB* Take 200 mg by mouth twice da* ADALIMUMAB 40 MG/0.8 ML SUBCU* Inject 40 mg subcutaneously o* CO Q-10 ORAL Take by mouth once daily. FISH OIL-DHA-EPA 1,200 MG-144* Take 1,200 mg by mouth once d* FOLIC ACID 1 MG TABLET Take 1 mg by mouth once daily. HYDROCHLOROTHIAZIDE 12.5 MG C* Take 12.5 mg by mouth once da* NORCO ORAL Take 7.5 mg by mouth four len* IBUPROFEN 400 MG TABLET Take 400 mg by mouth every 6 * IMIPRAMINE HCL ORAL Take by mouth. ARAVA ORAL Take by mouth. LOSARTAN ORAL Take by mouth. LYRICA ORAL Take 75 mg by mouth. PRILOSEC ORAL Take by mouth twice daily. PROGESTERONE MISC AMBIEN ORAL Take 12.5 mg by mouth. CALCIUM 500 ORAL Take by mouth. VITAMIN D-3 ORAL Take by mouth. CEFTIN 250 MG TABLET Take one(1) tablet two(2) len* Patient not taking: No sig reported RELAFEN 500 MG TABLET Take one(1) tablet two(2) len* CYMBALTA 20 MG CAPSULE,DELAYE* Take one(1) tablet daily. WELLBUTRIN XL 150 MG 24 HR TA* Take one(1) tablet daily. AVALIDE 150 MG-12.5 MG TABLET Take one(1) tablet daily. Patient not taking: No sig reported Problem List As Of Date 03/08/2018 Noted Resolved Current chronic use of systemic steroids [Z79.5*INVALID FOR* Other specified rheumatoid arthritis, multiple *INVALID FOR* Obesity, Class I, BMI 30-34.9 [E66.9] INVALID FOR* Osteonecrosis of left hip (HCC) [M87.9] INVALID FOR* More... Fibromyalgia [M79.7] INVALID FOR* Vitamin D deficiency [E55.9] INVALID FOR* OA (osteoarthritis) of hip [M16.9] INVALID FOR* More... Disposition: Return for Follow up visit with Dr. Hsu. Follow-up and Disposition History Recorded Encounter Status:Closed by LUI HSU MD on 03/08/18 HOSP Observed: 03/08/2018 Status: COMPLETED Source: [place] 12:00 AM [facility] REPOSITORY Patient:Rosa Blackwood MRN: <[id number]> Height:5' 3(1.6 m) Weight:175 lb (79.379 kg) Outpatient Medications as of 03/16/18: COMPOUNDED PRESCRIPTION pentosan polysulfate sodium (ELMIRON ORAL) amLODIPine (NORVASC) 5 mg tablet sulfamethoxazole-trimethoprim (BACTRIM DS,SEPTRA DS) 800-160 mg per tablet predniSONE (DELTASONE) 10 mg tablet buPROPion XL (WELLBUTRIN XL) 300 mg 24 hr tablet DULoxetine (CYMBALTA) 60 mg capsule azaTHIOprine (IMURAN) 50 mg tablet lidocaine (LIDODERM) 5 % diclofenac sodium (VOLTAREN) 1 % topical gel [id number] ORAL UBIDECARENONE (CO Q-10 ORAL) HYDROCODONE/ACETAMINOPHEN (NORCO ORAL) ibuprofen (MOTRIN) 400 mg tablet LOSARTAN POTASSIUM (LOSARTAN ORAL) PREGABALIN (LYRICA ORAL) OMEPRAZOLE (PRILOSEC ORAL) PROGESTERONE MISC ZOLPIDEM TARTRATE (AMBIEN ORAL) Admission/Clinic Administered Medications as of 03/16/18: lactated ringers infusion vancomycin iv piggyback 1 g in D5W 200 mL (VANCOCIN) Problem List: Current chronic use of systemic steroids [Z79.52] Rheumatoid arthritis involving multiple sites ([facility]) [M06.9] Obesity, Class I, BMI 30-34.9 [E66.9] Osteonecrosis of left hip (HCC) [M87.9] Fibromyalgia [M79.7] Vitamin D deficiency [E55.9] OA (osteoarthritis) of hip [M16.9] ILD (interstitial lung disease) ([facility]) [J84.9] Allergies: Ampicillin Ciprofloxacin Clindamycin Date Verified: 03/16/18 Lab Values Lab Value Units Date High Low POTA* 4.1 mmol/L 03/08/2018 5.1 3.7 RHODA* 40.9 % 03/08/2018 46.0 36.0 Progress Notes ([facility]): Ambreen Contreras, RN, RN 03/15/2018 8:45 AM Addendum ANESTHESIA PRE-OPERATIVE ASSESSMENT (PACE) SERVICE DATE: 03/12/2018 SERVICE TIME: 400 ASSESSMENT AND PLAN: Rosa Blackwood is a 57 year old female scheduled for Left Hip Total Arthoplasty per Informed Consent in MAIN on 03/16/18. PMH: 1. Hip OA, osteonecrosis with subluxation- for above surgery 2. HTN- norvasc and losartan 3. Interstitial lung disease, hx of cryptogenic organizing pneumonia (dx in 2014)- followed by pulmonary, per pt MD is aware of upcoming surgery. [facility] is requesting the last pulmonary note . Does not use oxygen or inhalers. Takes prednisone (5mg currently, but was as high as 30mg 7-8 mos ago) and imuran. Pt will be having a cxr after PACE appt. Pt brought with her last echo (Jun 2017), PFTs and CT chest from Jun 2017 and pulm/pcp visit note from Jun 2017. Pt is feeling well, and breathing comfortably. Saturating 98% on room air. 4. It was noted in Care everywhere problem list a diagnosis of pulm htn, pt denies and the office visit note states she DOES NOT have pulm htn. The most recent echo showed normal tricuspid valve, RV size and function. RVSP was unable to be estimated. 5. GERD- prilosec 6.? Rheumatoid arthritis, fibromyalgia- lyrica, norco. 7. Degenerative disc in neck and back, + pain. Pt sometimes has paresthesia in BUE with ROM, not currently however. Today her neck ROM was good. [facility]: 3 FC: 2 METS: Take care of self; that is eating, dressing, bathing, using the toilet (2.75 METs) Patient denies any chest pain or undue shortness of breath with the above physical activity. limited by hip pain, limited since November Patient WILL accept blood products. BLOOD WORK/PRODUCTS ORDERED: Type and Screen , Con ABO HISTORY OF CHRONIC PAIN: Yes - back, neck and hip PAIN MANAGEMENT OPTIONS: Routine/PRN IV and Final pain management plan will be discussed on the day of surgery. ANESTHETIC OPTIONS: Regional vs. general and Final anesthesia management options will be discussed on day of surgery. PRE-OP PLAN ORDERED: Acute pain management consult prior to OR Patient Instructed: ? No solid food or non-clear liquids after midnight. Clear liquids allowed until two hours before scheduled arrival. ? Patient instructed to take the following medications with a sip of water: prednisone, norvasc, prilosec, norco Vital Signs: BP 104/78 Pulse 85 Ht 160 cm (5' 2.99) Wt 79.4 kg (175 lb 0.7 oz) LMP 08/18/2006 SpO2 98% BMI 31.02 kg/m? BMI 31.02 kg/(m2) Vital signs completed by: IMPACT Weight acquired: per HANDP. Height acquired: per HANDP Airway Exam: MOUTH OPENING/TMJ: Full jaw ROM MICROGNATHIA/OVERBITE: No MALLAMPATI SCORE is CLASS II UPPER LIP BITE TEST: Class I - Lower incisors can bite the upper lip above the manuel line DENTITION: Intact THYROMENTAL DIST: WNL SHORT NECK: No NECK CIRCUMFERENCE >40 cm: Appears < than 40 CM NECK FLEX: Full ROM NECK EXTENSION: Limited ROM slight, occasional paresthesia in BUE with movement, not currently. AIRWAY HISTORY: No abnormal airway history ARKS AIRWAY DETAIL: N/A DATA: EKG READING: Unconfirmed - SR 81 OTHER TESTS: Echo: Date: 06/2017, Results: osh, to be scanned. EF 60%, no wall motion abnormalities, no valve abnormalities. RV size and function are normal, rvsp could not be estimated. Lab Value Units Date High Low HB 12.8 g/dL 03/08/2018 15.5 11.5 HCT 40.9 % 03/08/2018 46.0 36.0 WBC 5.49 k/uL 03/08/2018 11.00 3.70 PLT 433 k/uL 03/08/2018 400 150 NA 144 mmol/L 03/08/2018 144 136 K 4.1 mmol/L 03/08/2018 5.1 3.7 GLUC 95 mg/dL 03/08/2018 99 74 BUN 18 mg/dL 03/08/2018 21 7 CREAT 1.22 mg/dL 03/08/2018 0.96 0.58 HBA1C: No results found for: HBA1C) Patient accompanied by spouse Case Discussed with Dr Hunter OPTIMIZATION STATUS: Patient optimization pending CXR IMPACT and PACE Pending OSR for chart completion only- most recent pulmonary note. SIGNATURE: Ambreen Contreras RN PATIENT NAME: Rosa Blackwood DATE: March 12, 2018 TIME: 4:57 PM PAGER/CONTACT #: Addendum 03/15/18 [facility] recent pulm visit, recent pfts received. Stable lung disease noted. Normal spirometry. CXR RESULT: Lines, tubes, and devices: ?None. ?Pulmonary staple lines, suggestive of prior wedge biopsies on the right side. Lungs and pleura: ?No consolidation. No lung mass. No pleural effusion. ? Well-expanded lungs. ?No significant interstitial opacities to indicate radiographic evidence of interstitial lung disease. Cardiomediastinal silhouette: ?Normal cardiomediastinal silhouette. Other: ?Degenerative changes of the spine. ?Mild dextrocurvature of the lower thoracic spine. Previous Version Progress Notes ([facility]): Migel Nelson 03/12/2018 3:22 PM Signed Rosa Blackwood is a 57 year old female here today for visit in [facility] Referring Surgeon: Dr. Hsu Date of Surgery: 03/16/2018 Planned Surgery/Procedure: ARTHROPLASTY REPLACE JOINT TOTAL HIP Allergies have been reviewed and verified. They include the following: Ampicillin; Ciprofloxacin; Clindamycin Social History Substance Use Topics - Smoking status: Former Smoker - Smokeless tobacco: Never Used Comment: 10 YEARS AGO - Alcohol use 4.5 oz/week 1 Glasses of Wine (5oz), 1 Cans of Beer (12oz), 1 Mixed Drinks per week Comment: OCCASIONALLY DRINKS ABOVE ALCOHOLIC DRINKS Medications reviewed and updated: Yes Migel Olson MD 03/12/2018 3:22 PM Signed HISTORY AND PHYSICAL EXAMINATION (IMPACT) SERVICE DATE: 03/12/2018 SERVICE TIME: 2:24 PM PRIMARY CARE PHYSICIAN: Valeriano Munoz MD CHIEF COMPLAINT/HISTORY OF PRESENT ILLNESS: Ms. Blackwood is a 57 year old female referred to me for preoperative evaluation. My final recommendations will be communicated back to the requesting physician/surgeon by the way of the shared medical record. Referring Surgeon: Dr. 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 Patient is Able to Perform the Following Physical Activity: Partially dependent since november 2017 Patient's functional class is III based on self-reported physical activity. Significant Anesthesia Considerations: None. PAST MEDICAL/SURGICAL/FAMILY/SOCIAL HISTORY PAST MEDICAL HISTORY Diagnosis Date - Current chronic use of systemic steroids - Fibromyalgia - Rheumatoid arthritis (HCC) PAST SURGICAL HISTORY Procedure Laterality Date - CARPAL TUNNEL Bilateral 2002 - CATARACT SURGERY, COMPLEX Bilateral 2018 - DILATION AND CURETTAGE 2014 - KIDNEY SURGERY HX - LUNG BIOPSY 2014 - TOTAL KNEE REPLACEMENT Left 2010 FAMILY HISTORY Problem Relation Age of Onset - Arthritis Mother - Hypertension Mother - Hypertension Father SOCIAL HISTORYSocial History Marital status: Spouse name: Years of education: Number of children: Social History Main Topics Smoking status: Former Smoker Packs/day: 0.00 Years: 0.00 Smokeless tobacco: Never Used Comment: 10 YEARS AGO Alcohol use: Yes 4.5 oz/week Glasses of Wine (5oz): 1, Cans of Beer (12oz): 1, Mixed Drinks: 1 per week Comment: OCCASIONALLY DRINKS ABOVE ALCOHOLIC DRINKS Drug use: No MEDICATIONS/ALLERGIES Current Outpatient Prescriptions: COMPOUNDED PRESCRIPTION Keill Oil 1 cap [id number] 1tab DA Disp: Rfl: pentosan polysulfate sodium (ELMIRON ORAL) Take 1 tablet by mouth three times daily. Disp: Rfl: amLODIPine (NORVASC) 5 mg tablet Take 5 mg by mouth once daily. Disp: Rfl: sulfamethoxazole-trimethoprim (BACTRIM DS,SEPTRA DS) 800-160 mg per tablet Take by mouth. Mon, wed, fri Disp: Rfl: predniSONE (DELTASONE) 10 mg tablet Take 10 mg by mouth once daily. Disp: Rfl: buPROPion XL (WELLBUTRIN XL) 300 mg 24 hr tablet Take 300 mg by mouth once daily. Disp: Rfl: azaTHIOprine (IMURAN) 50 mg tablet Take 50 mg by mouth three times daily. 3 tabs daily Disp: Rfl: lidocaine (LIDODERM) 5 % Apply 1 Patch as directed as needed. Disp: Rfl: [id number]-[id number]-PFDT ORAL Take by mouth once daily. Disp: Rfl: UBIDECARENONE (CO Q-10 ORAL) Take by mouth once daily. Disp: Rfl: HYDROCODONE/ACETAMINOPHEN (NORCO ORAL) Take 7.5 mg by mouth three times daily. 7.5 - 325 mg Disp: Rfl: LOSARTAN POTASSIUM (LOSARTAN ORAL) Take by mouth. Disp: Rfl: PREGABALIN (LYRICA ORAL) Take 75 mg by mouth. 2 capsules Disp: Rfl: OMEPRAZOLE (PRILOSEC ORAL) Take 40 mg by mouth twice daily. Disp: Rfl: PROGESTERONE MISC Disp: Rfl: ZOLPIDEM TARTRATE (AMBIEN ORAL) Take 12.5 mg by mouth. Disp: Rfl: CYMBALTA 20 MG CAP Take one(1) tablet daily. (Patient taking differently: Take one(1) tablet daily. Pt takes 60 mg not 20mg) Disp: 30 Rfl: 0 WELLBUTRIN XL 150 MG 24 HR TAB Take one(1) tablet daily. (Patient taking differently: Take one(1) tablet daily.300 mg not 150 mg) Disp: 30 Rfl: 0 buprenorphine (BUTRANS) 20 mcg/hour ptwk Apply as directed once each week. Disp: Rfl: losartan (COZAAR) 100 mg tablet Take 100 mg by mouth once daily. Disp: Rfl: DULoxetine (CYMBALTA) 60 mg capsule Take 60 mg by mouth once daily. Disp: Rfl: diclofenac sodium (VOLTAREN) 1 % topical gel Apply to affected area four times daily. Disp: Rfl: sour ballesteros extract (TART BALLESTEROS EXTRACT ORAL) Take by mouth once daily. Disp: Rfl: Fish Oil-DHA-EPA 1,200-144-216 mg cap Take 1,200 mg by mouth once daily. Disp: Rfl: folic acid 1 mg tablet Take 1 mg by mouth once daily. Disp: Rfl: Hydrochlorothiazide 12.5 mg capsule Take 12.5 mg by mouth once daily. Disp: Rfl: ibuprofen (MOTRIN) 400 mg tablet Take 400 mg by mouth every 6 hours as needed. Disp: Rfl: IMIPRAMINE HCL ORAL Take by mouth. Disp: Rfl: CALCIUM CARBONATE (CALCIUM 500 ORAL) Take by mouth once daily. Disp: Rfl: CALCIUM CARBONATE/VITAMIN D3 (VITAMIN D-3 ORAL) Take by mouth once daily. Disp: Rfl: No current facility-administered medications for this visit. ALLERGIES Allergen Reactions - Ampicillin Unknown Told as a child allergic, has had similar meds since - Ciprofloxacin Diarrhea - Clindamycin Diarrhea REVIEW OF SYSTEMS General: No weight loss, malaise or fevers. Neuro: No history of TIA's, stroke, MESH CUTTER tumor, impaired sensorium, hemiplegia, paraplegia or quadriplegia. No neurological symptoms or problems. Respiratory: ILD prednisone and imuran Cardiovascular: Hypertension requiring meds GI: GERD : No history of UTI in past 6 weeks. No history of renal failure. Not currently on or requiring dialysis. No history of symptoms or problems. 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 Endocrine: Steroids for chronic problem currently on prednisone 5 mg Hematology: No history of bleeding or clotting disorder. No history of hematological symptoms or problems. Oncology: No history of CA metastasis, chemo within 30 days, or radiotherapy within 90 days. No history of oncological symptoms or problems. Psych: Depression Skin: Negative for lesions, rash, and itching. PHYSICAL EXAM VITALS: BP 104/78 Pulse 85 Temp (Src) 97.9 (Oral) Ht 5' 3 (1.60m) Wt 175 lb (79.4kg) SpO2 98% LMP 08/18/2006 BMI 31.01 kg/(m2). General: Alert and oriented, on wheel chair no respiratory distress on room air Skin: Normal color, no rash, no lesions. HEENT: Throat clear Cardiovascular: Normal S1 AND S2, no rubs, murmurs or gallops. No JVD. Pulse regular. Lungs: Normal breath sounds, no wheezes or crackles. Abdomen: Soft, non-tender, no rigidity. Extremities: No deformity, no edema or tenderness, no joint swelling or clubbing. Neurological: Normal cognition and motor skills. Pulses: Not examined ASSESSMENT Ms. Blackwood is a 57 year old female referred to me for preoperative evaluation. Patient has the following medical comorbidities which might affect the perioperative course: - Hypertension, well controlled. - ILD -organizing pnemonia Patient's RCRI (Revised Cardiac Risk Index: CAD/CHF/Stroke or TIA/SCr>2/DM on Insulin/High Risk Surgery) score is 0 and is at low risk for major adverse cardiac events in the perioperative period. Diagnostic tests reviewed for today's visit: Most recent labs Most recent imaging CT chest 06/2017 report with diffuse hazy ground glass opacities though out the lung bilaterally mild moderate airway inflammation small nodules Most recent EKG: normal sinus rhythm, normal axis, normal intervals, reviewed by myself. Most recent Echo 06/2017 EF 60% no WMA no valve abnormalities RVSP not measured Most recent PFT 06/2017 normal normal DLCO PLAN/RECOMMENDATIONS CARDIAC: Patient is at optimal cardiac condition for scheduled surgery / procedure. PULMONARY: Patient is at optimal Pulmonary status for scheduled surgery / procedure. Patient is at increased risk for postoperative pulmonary complications. Suggest the following in the post-operative period: Continue bronchodilator medications, Aggressive bronchopulmonary hygiene and continue prednisone Following additional test(s) requested for risk assessment / evaluation prior to surgery: CXR ENDOCRINE: STEROID MANAGEMENT: - Advised patient to continue home steroid dose in the perioperative period including day of surgery. VASCULAR/ANTICOAGULATION: VTE prophylaxis as deemed appropriate by the surgical service. Patient is optimally prepared for surgery pending CXR Patient Instructions: As per patient instructions section. I have discussed the above recommendations with the patient in detail, in gely and lay terms, and provided a written summary of instructions as needed. We have discussed that no surgery is without risk, but that the goal of preoperative assessment is to optimize that risk, and that was clearly understood by the patient. I have given ample opportunity for the patient to ask questions, and answered all questions to their stated satisfaction. SIGNATURE: Edgar Olson MD PATIENT NAME: Rosa Blackwood DATE: March 12, 2018 TIME: 2:24 PM Edgar Olson MD 03/12/2018 3:21 PM Signed [facility] Patient Instructions for Surgery FOOD INSTRUCTIONS: NO solid food or non-clear liquids for 8 hours prior to the arrival time for your surgery. Unless you are instructed otherwise, you are allowed to drink up to 12 ounces of clear liquids (e.g. water, black tea/coffee, fruit juice without pulp, Mami Anu, etc.) up until 2 hours prior to the arrival time for surgery. MEDICATION INSTRUCTIONS: Prior to Surgery: Do not take the following medications for 7 days prior to surgery: - any NSAID's (e.g. Motrin, Aleve, Arthrotec, Naproxen,etc) - any herbal preparations - Aspirin or aspirin containing products - Plavix Do not take any Vitamin E / multivitamins for 10-14 days before surgery You are allowed to take Tylenol if needed until the day of surgery. Continue all medications until the night prior to surgery MEDICATION INSTRUCTIONS: Day/Morning of Surgery: The following medications should be taken with sips of water: prednisone , prilosec amlodipine Opiates (percocet, vicodin, MS contin, darvocet, ultram,etc), if needed for pain, can be taken on morning of surgery. If you have any questions or concerns regarding today's visit please do not hesitate to contact the [facility] at [phone] or [phone], ext [phone]. Signature: Edgar Olson MD Date: March 12, 2018 TISSUE BIOPSY Observed: 02/19/2018 Status: F Source: [place] 12:[address] [facility] REPOSITORY Patient: ROSA BLACKWOOD : 1960 (57/F) Acct Num: [id number] [facility] Num: [id number] Loc: LABSPEC Specimen: [id number] Received: 02/19/18 - 1513 Spec Type: Tissue Bx TISSUES 1 TISSUES: TISSUE SURGICALLY REMOVED GROSS DESCRIPTION Received in fixative is one container labeled with the patient's name and designated lip. The specimen consists of a piece of swift mucosal tissue measuring 0.8 x 0.7 x 0.2 cm. The specimen is inked and submitted entirely in one cassette. It will be sectioned at the time of embedding. / JANES:tammy 02/19/18 TC:5 CPT: 63571 HEADER OPERATION: Biopsy cheek/lip PRE-OP DIAGNOSIS: Probable fibroma TISSUE SUBMITTED: Biopsy cheek/lip MICROSCOPIC DESCRIPTION Slides are reviewed. MICROSCOPIC DIAGNOSIS Cheek/lip, biopsy: Squamous mucosa with subepithelial fibrosis, consistent with irritation fibroma. JANES:tammy 02/22/18 Signed Jarrod Holland 02/22/18 <signature on file> Performed By: #### PTISS #### [facility] [address] [place] [address]. [place], [place], [id number] [facility] Observed: 02/15/2018 Status: COMPLETED Source: [place] 12:00 AM [facility] REPOSITORY Telephone (SPNSMN) ROSA BLACKWOOD ([id number]) 1960 F Date Time Provider Department 02/15/18 CARLOS SHIPMAN SPNSMN During your visit today, we recorded the following information about you: [place] Cesar [facility] 02/15/[place] 3:23 PM Signed Pt calls requesting MRI results and atx Plan Pls call Patient calling for MRI lumbar results. Patient informed that it can take 7 business days to review and that someone from the surgical team will call with results once reviewed. Edith Woodard [facility] 02/17/2018 4:52 PM Signed Pt called again. She is having a lot of pain from her hip and she would like a response soon . Gopal Nixon, RN 02/19/2018 8:31 AM Signed This encounter has been routed to [facility] for image review Minal Doty PA-C 02/19/2018 1:37 PM Signed Called and spoke with patient . Patient was sleeping as she had her wisdom, tooth extracted. MRI report of the hip points to AVN. Dr Shipman recommends she see orthopedics - order placed either Dr Roberson, Dr Chu or Dr Mead. Scheduling # provided and orthopedic consult placed. ELIDA Phillips PA-C 02/19/2018 1:37 PM Signed Addended by: MINAL DOTY on: 02/19/2018 01:37 PM Modules accepted: Orders Allergies As of Date: 02/15/2018 Noted Allergy Reaction AMPICILLIN 08/18/2006 16 - Unknown Comments: Told as a child allergic, has had similar meds since CIPROFLOXACIN 07/01/2015 6 - Diarrhea CLINDAMYCIN 07/01/2015 6 - Diarrhea Date Reviewed: 02/08/2018 Reviewed by: Stepan Ying - Fully Assessed Reason for Visit: Results - Mri [3561] Primary Visit Diagnosis:Avascular necrosis of femur, unspecified laterality (HCC) [M87.059] Order(s):CONSULT TO ORTHOPAEDIC SURGERY [033390] Order #: [id number]: 1 Prescriptions as of 02/15/2018 Sig: AMLODIPINE 5 MG TABLET Take 5 mg by mouth once daily. SULFAMETHOXAZOLE 800 MG-TRIME* Take by mouth. Mon, wed, fri BUPRENORPHINE 20 MCG/HOUR WEE* Apply as directed once each w* LOSARTAN 100 MG TABLET Take 100 mg by mouth once mary ellen* PREDNISONE 10 MG TABLET Take 10 mg by mouth once adama* BUPROPION XL 300 MG 24 HR TAB Take 300 mg by mouth once mary ellen* DULOXETINE 60 MG CAPSULE,HANANE* Take 60 mg by mouth once adama* AZATHIOPRINE 50 MG TABLET 3 tabs daily LIDOCAINE 5 % TOPICAL PATCH Apply 1 Patch as directed as * DICLOFENAC 1 % TOPICAL GEL Apply to affected area four t* TART BALLESTEROS EXTRACT ORAL Take by mouth once daily. PDXPOJG-JPPOQMHSE-WONI ORAL Take by mouth once daily. HYDROXYCHLOROQUINE 200 MG TAB* Take 200 mg by mouth twice da* ADALIMUMAB 40 MG/0.8 ML SUBCU* Inject 40 mg subcutaneously o* CO Q-10 ORAL Take by mouth once daily. FISH OIL-DHA-EPA 1,200 MG-144* Take 1,200 mg by mouth once d* FOLIC ACID 1 MG TABLET Take 1 mg by mouth once daily. HYDROCHLOROTHIAZIDE 12.5 MG C* Take 12.5 mg by mouth once da* NORCO ORAL Take 7.5 mg by mouth four len* IBUPROFEN 400 MG TABLET Take 400 mg by mouth every 6 * IMIPRAMINE HCL ORAL Take by mouth. ARAVA ORAL Take by mouth. LOSARTAN ORAL Take by mouth. LYRICA ORAL Take 75 mg by mouth. PRILOSEC ORAL Take by mouth twice daily. PROGESTERONE MISC AMBIEN ORAL Take 12.5 mg by mouth. CALCIUM 500 ORAL Take by mouth. VITAMIN D-3 ORAL Take by mouth. CEFTIN 250 MG TABLET Take one(1) tablet two(2) len* Patient not taking: No sig reported RELAFEN 500 MG TABLET Take one(1) tablet two(2) len* CYMBALTA 20 MG CAPSULE,DELAYE* Take one(1) tablet daily. WELLBUTRIN XL 150 MG 24 HR TA* Take one(1) tablet daily. AVALIDE 150 MG-12.5 MG TABLET Take one(1) tablet daily. Patient not taking: No sig reported Problem List As Of Date 02/15/2018 Noted Resolved Current chronic use of systemic steroids [Z79.5*INVALID FOR* Rheumatoid arthritis (HCC) [M06.9] INVALID FOR* Obesity, Class I, BMI 30-34.9 [E66.9] INVALID FOR* Encounter Status:Closed by GOPAL NIXON on 02/19/18 LOWER EXT JOINT Observed: 02/10/2018 Status: F Source: [place] ONLY W/WO CONT 10:[address] [facility] REPOSITORY [facility] Imaging Services [address] [place] [address] Lower Ext Joint Only W/WO Cont MR#: [id number] Acct: [id number] Name: ROSA BLACKWOOD Rep #: [id number] : 1960 F 57 From: Kadie Dailey MD PCP: Valeriano Munoz MD Status: REG CLI Study: Lower Ext Joint Only W/WO Cont Date of Exam: 02/10/18 Exam# [id number] Ordering Dr: CARLOS SHIPMAN M.D. STUDY: MRI LEFT HIP REASON FOR EXAM: Female, 57 years old. Left-sided hip pain. Patient has inflammatory arthropathy with long-term prednisone use. TECHNIQUE: Standardized fat and water weighted pulse sequences were obtained in all 3 orthogonal planes. COMPARISON: None. FINDINGS: There is abnormal signal within the subarticular aspect of the left femoral head. This is abnormally decreased T1 signal and increased T2 signal. There is diffuse abnormal signal within the left femoral neck as well. There is left-sided hip joint space narrowing. There is some subluxation of the femoral head laterally probably related [...] There is no trochanteric, iliopsoas or iliopectineal bursitis. Normal superior and inferior pubic rami. Normal pubic symphysis. Normal ischial tuberosity. Appears to be some inflammation of the origins of the left sided hamstring tendons at the ischial tuberosity. This may represent a tenosynovitis. Normal visualized iliac wing, sacroiliac joint, and sacral ala. There mild degenerative changes of the right. Normal visualized soft tissue structures of the pelvis. MRI/Lower Ext Joint Only W/WO Cont IMPRESSION: 1. MR findings suggest sequela of avascular necrosis of the left femur in addition to what may represent stress reaction of the left femoral neck. 2. Left-sided hip effusion with some capsular enhancement. This maybe related to chronic inflammation but an associated infection cannot be excluded. 3. Apparent inflammation and or tenosynovitis of the hamstring tendon insertions onto the ischial tuberosity. Electronically Signed: Kadie Dailey MD at 6:06 EDT , Service support , CC: CARLOS SHIPMAN M.D.; Valeriano Munoz MD Certified Registered Dental Assistant: Signed MR OUTSIDE CD DICOM Observed: 02/10/2018 Status: F Source: [place] -NBNR 12:00 AM [facility] REPOSITORY Images were obtained outside of [facility] [id number] Observed: 02/08/2018 Status: COMPLETED Source: [place] 6:01 PM [facility] CAMPUS REPOSITORY HNO ID: [id number] Author: Stepan Ying Service: (none) Author Type: Physician Type: Progress Notes Filed: 02/08/2018 6:04 PM Note Text: Rosa Blackwood is a 57 year old White female who presents with complaints of having reflux. She actually has a fair amount of interstitial lung disease. She is actually on [place] being evaluated esophagram was performed which revealed reflux. She had an impedance pH monitoring as well which also showed 19% acid exposure and 84% reflux events associated with her symptoms. She has been on prednisone for a while secondary to her rheumatoid arthritis and other issues. She does take a significant amount medications related to her lung disease and a rheumatoid arthritis. PAST MEDICAL HISTORY Diagnosis Date - Current chronic use of systemic steroids - Fibromyalgia - Rheumatoid arthritis (HCC) PAST SURGICAL HISTORY Procedure Laterality Date - CARPAL TUNNEL Bilateral 2002 - CATARACT SURGERY, COMPLEX Bilateral 2018 - DILATION AND CURETTAGE 2014 - KIDNEY SURGERY HX - LUNG BIOPSY 2014 - TOTAL KNEE REPLACEMENT Left 2010 Social History Substance Use Topics - Smoking status: Former Smoker - Smokeless tobacco: Never Used Comment: 10 YEARS AGO - Alcohol use 4.5 oz/week 1 Glasses of Wine (5oz), 1 Cans of Beer (12oz), 1 Mixed Drinks per week Comment: OCCASIONALLY DRINKS ABOVE ALCOHOLIC DRINKS FAMILY HISTORY Problem Relation Age of Onset - Arthritis Mother - Hypertension Mother - Hypertension Father ALLERGIES Allergen Reactions - Ampicillin Unknown Told as a child allergic, has had similar meds since - Ciprofloxacin Diarrhea - Clindamycin Diarrhea Current Outpatient Prescriptions: amLODIPine (NORVASC) 5 mg tablet Take 5 mg by mouth once daily. sulfamethoxazole-trimethoprim (BACTRIM DS,SEPTRA DS) 800-160 mg per tablet Take by mouth. Mon, wed, fri buprenorphine (BUTRANS) 20 mcg/hour ptwk Apply as directed once each week. predniSONE (DELTASONE) 10 mg tablet Take 10 mg by mouth once daily. buPROPion XL (WELLBUTRIN XL) 300 mg 24 hr tablet Take 300 mg by mouth once daily. DULoxetine (CYMBALTA) 60 mg capsule Take 60 mg by mouth once daily. azaTHIOprine (IMURAN) 50 mg tablet 3 tabs daily lidocaine (LIDODERM) 5 % Apply 1 Patch as directed as needed. diclofenac sodium (VOLTAREN) 1 % topical gel Apply to affected area four times daily. CBUULPR-MNEKTFJHS-CGKE ORAL Take by mouth once daily. UBIDECARENONE (CO Q-10 ORAL) Take by mouth once daily. Fish Oil-DHA-EPA 1,200-144-216 mg cap Take 1,200 mg by mouth once daily. HYDROCODONE/ACETAMINOPHEN (NORCO ORAL) Take 7.5 mg by mouth four times daily as needed. 7.5 - 325 mg ibuprofen (MOTRIN) 400 mg tablet Take 400 mg by mouth every 6 hours as needed. LOSARTAN POTASSIUM (LOSARTAN ORAL) Take by mouth. PREGABALIN (LYRICA ORAL) Take 75 mg by mouth. OMEPRAZOLE (PRILOSEC ORAL) Take by mouth twice daily. PROGESTERONE MISC ZOLPIDEM TARTRATE (AMBIEN ORAL) Take 12.5 mg by mouth. CALCIUM CARBONATE/VITAMIN D3 (VITAMIN D-3 ORAL) Take by mouth. CYMBALTA 20 MG CAP Take one(1) tablet daily. WELLBUTRIN XL 150 MG 24 HR TAB Take one(1) tablet daily. losartan (COZAAR) 100 mg tablet Take 100 mg by mouth once daily. sour ballesteros extract (TART BALLESTEROS EXTRACT ORAL) Take by mouth once daily. hydroxychloroquine (PLAQUENIL) 200 mg tablet Take 200 mg by mouth twice daily. adalimumab (HUMIRA) 40 mg/0.8 mL injection Inject 40 mg subcutaneously one time only. 1 injection every 14 days folic acid 1 mg tablet Take 1 mg by mouth once daily. Hydrochlorothiazide 12.5 mg capsule Take 12.5 mg by mouth once daily. IMIPRAMINE HCL ORAL Take by mouth. LEFLUNOMIDE (ARAVA ORAL) Take by mouth. CALCIUM CARBONATE (CALCIUM 500 ORAL) Take by mouth. cefUROXime (CEFTIN) 250 mg ORAL Tab Take one(1) tablet two(2) times daily with food. (Patient not taking: No sig reported) nabumetone (RELAFEN) 500 mg ORAL Tab Take one(1) tablet two(2) times daily. AVALIDE 150 MG-12.5 MG TAB Take one(1) tablet daily. (Patient not taking: No sig reported) No current facility-administered medications for this visit. REVIEW OF SYSTEMS PAIN ASSESSMENT: Negative for pain, history of chronic pain, or current treatment for a chronic pain condition. GENERAL: No weight loss, malaise or fevers NECK: Negative for lumps, goiter, pain and significant neck swelling RESPIRATORY: Negative for cough, hemoptysis, wheezing, COPD, dyspnea or shortness of breath CARDIOVASCULAR: Negative for chest pain, leg swelling, hypertension, CHF or palpitations GI: No nausea, vomiting, or diarrhea and See HPI : No history of dysuria, frequency or incontinence MUSCULOSKELETAL: Negative for joint pain or swelling, back pain or muscle pain HEMATOLOGY/LYMPHOLOGY: Negative for prolonged bleeding, bruising easily or swollen nodes ENDOCRINE: Negative for cold or heat intolerance, polyuria, polydipsia and goiter PHYSICAL EXAM: BP 119/74 Ht 5' 3 (1.60m) Wt 175 lb 12.8 oz (79.7kg) BMI 31.15 kg/(m2). General Appearance: Well appearing, alert, in no acute distress, well-hydrated, well nourished. and Overweight. Eyes: Normal sclera Skin: Skin texture and turgor normal, no suspicious rashes or lesions, Negative for jaundice or pallor. Neck: Supple, trachea midline Lungs: Lungs clear to auscultation. No wheezing, rhonchi, rales. Heart: RRR without murmur, gallop, or rubs. No ectopy. Abdomen: Normal abdominal exam, Abdomen soft, non-tender. Bowel sounds normal. No masses, organomegaly, Negative CVA tenderness. Musculoskeletal: Negative. Lymph Nodes: No cervical lymphadenopathy and No supraclavicular lymphadenopathy. Assessment: Gastroesophageal reflux disease, esophagitis presence not specified (primary encounter diagnosis) Interstitial lung disease (hcc) Rheumatoid arthritis involving multiple sites, unspecified rheumatoid factor presence (hcc) Plan: I did explain to her that her reflux may or may not be contributing to making her pulmonary disease more symptomatic or worse. We did elect to proceed with a workup to include EGD and manometry. The risks, benefits and complications were reviewed including but not limited to bleeding, infection, missing a lesion, effects of anesthesia and perforation possibly requiring an emergency surgery. She understood and was agreeable to proceed. Stepan Ying M.D., Daniel CNOV Observed: 02/08/2018 Status: COMPLETED Source: [place] 1:30 PM CLIN[facility] OTHER CAMPUS REPOSITORY Office Visit ([facility]) ROSA BLACKWOOD ([id number]) 1960 F Date Time Provider Department 02/08/18 1:30 PM STEPAN YING [facility] During your visit today, we recorded the following information about you: Blood pressure Weight Height 119/74 79.7 kg 1.6 m Nalini López RN 02/08/2018 2:49 PM Signed Discussed and reviewed manometry with pt; all questions answered. Discussed and reviewed EGD with biopsy with pt; all questions answered. Nalini Ying MD 02/08/2018 6:04 PM Signed Rosa Sequeira Chastity is a 57 year old White female who presents with complaints of having reflux. She actually has a fair amount of interstitial lung disease. She is actually on [place] being evaluated esophagram was performed which revealed reflux. She had an impedance pH monitoring as well which also showed 19% acid exposure and 84% reflux events associated with her symptoms. She has been on prednisone for a while secondary to her rheumatoid arthritis and other issues. She does take a significant amount medications related to her lung disease and a rheumatoid arthritis. PAST MEDICAL HISTORY Diagnosis Date - Current chronic use of systemic steroids - Fibromyalgia - Rheumatoid arthritis (HCC) PAST SURGICAL HISTORY Procedure Laterality Date - CARPAL TUNNEL Bilateral 2002 - CATARACT SURGERY, COMPLEX Bilateral 2017 - DILATION AND CURETTAGE 2014 - KIDNEY SURGERY HX - LUNG BIOPSY 2014 - TOTAL KNEE REPLACEMENT Left 2010 Social History Substance Use Topics - Smoking status: Former Smoker - Smokeless tobacco: Never Used Comment: 10 YEARS AGO - Alcohol use 4.5 oz/week 1 Glasses of Wine (5oz), 1 Cans of Beer (12oz), 1 Mixed Drinks per week Comment: OCCASIONALLY DRINKS ABOVE ALCOHOLIC DRINKS FAMILY HISTORY Problem Relation Age of Onset - Arthritis Mother - Hypertension Mother - Hypertension Father ALLERGIES Allergen Reactions - Ampicillin Unknown Told as a child allergic, has had similar meds since - Ciprofloxacin Diarrhea - Clindamycin Diarrhea Current Outpatient Prescriptions: amLODIPine (NORVASC) 5 mg tablet Take 5 mg by mouth once daily. sulfamethoxazole-trimethoprim (BACTRIM DS,SEPTRA DS) 800-160 mg per tablet Take by mouth. Mon, wed, fri buprenorphine (BUTRANS) 20 mcg/hour ptwk Apply as directed once each week. predniSONE (DELTASONE) 10 mg tablet Take 10 mg by mouth once daily. buPROPion XL (WELLBUTRIN XL) 300 mg 24 hr tablet Take 300 mg by mouth once daily. DULoxetine (CYMBALTA) 60 mg capsule Take 60 mg by mouth once daily. azaTHIOprine (IMURAN) 50 mg tablet 3 tabs daily lidocaine (LIDODERM) 5 % Apply 1 Patch as directed as needed. diclofenac sodium (VOLTAREN) 1 % topical gel Apply to affected area four times daily. [id number] ORAL Take by mouth once daily. UBIDECARENONE (CO Q-10 ORAL) Take by mouth once daily. Fish Oil-DHA-EPA 1,200-144-216 mg cap Take 1,200 mg by mouth once daily. HYDROCODONE/ACETAMINOPHEN (NORCO ORAL) Take 7.5 mg by mouth four times daily as needed. 7.5 - 325 mg ibuprofen (MOTRIN) 400 mg tablet Take 400 mg by mouth every 6 hours as needed. LOSARTAN POTASSIUM (LOSARTAN ORAL) Take by mouth. PREGABALIN (LYRICA ORAL) Take 75 mg by mouth. OMEPRAZOLE (PRILOSEC ORAL) Take by mouth twice daily. PROGESTERONE MISC ZOLPIDEM TARTRATE (AMBIEN ORAL) Take 12.5 mg by mouth. CALCIUM CARBONATE/VITAMIN D3 (VITAMIN D-3 ORAL) Take by mouth. CYMBALTA 20 MG CAP Take one(1) tablet daily. WELLBUTRIN XL 150 MG 24 HR TAB Take one(1) tablet daily. losartan (COZAAR) 100 mg tablet Take 100 mg by mouth once daily. sour ballesteros extract (TART BALLESTEROS EXTRACT ORAL) Take by mouth once daily. hydroxychloroquine (PLAQUENIL) 200 mg tablet Take 200 mg by mouth twice daily. adalimumab (HUMIRA) 40 mg/0.8 mL injection Inject 40 mg subcutaneously one time only. 1 injection every 14 days folic acid 1 mg tablet Take 1 mg by mouth once daily. Hydrochlorothiazide 12.5 mg capsule Take 12.5 mg by mouth once daily. IMIPRAMINE HCL ORAL Take by mouth. LEFLUNOMIDE (ARAVA ORAL) Take by mouth. CALCIUM CARBONATE (CALCIUM 500 ORAL) Take by mouth. cefUROXime (CEFTIN) 250 mg ORAL Tab Take one(1) tablet two(2) times daily with food. (Patient not taking: No sig reported) nabumetone (RELAFEN) 500 mg ORAL Tab Take one(1) tablet two(2) times daily. AVALIDE 150 MG-12.5 MG TAB Take one(1) tablet daily. (Patient not taking: No sig reported) No current facility-administered medications for this visit. REVIEW OF SYSTEMS PAIN ASSESSMENT: Negative for pain, history of chronic pain, or current treatment for a chronic pain condition. GENERAL: No weight loss, malaise or fevers NECK: Negative for lumps, goiter, pain and significant neck swelling RESPIRATORY: Negative for cough, hemoptysis, wheezing, COPD, dyspnea or shortness of breath CARDIOVASCULAR: Negative for chest pain, leg swelling, hypertension, CHF or palpitations GI: No nausea, vomiting, or diarrhea and See HPI : No history of dysuria, frequency or incontinence MUSCULOSKELETAL: Negative for joint pain or swelling, back pain or muscle pain HEMATOLOGY/LYMPHOLOGY: Negative for prolonged bleeding, bruising easily or swollen nodes ENDOCRINE: Negative for cold or heat intolerance, polyuria, polydipsia and goiter PHYSICAL EXAM: BP 119/74 Ht 5' 3 (1.60m) Wt 175 lb 12.8 oz (79.7kg) BMI 31.15 kg/(m2). General Appearance: Well appearing, alert, in no acute distress, well-hydrated, well nourished. and Overweight. Eyes: Normal sclera Skin: Skin texture and turgor normal, no suspicious rashes or lesions, Negative for jaundice or pallor. Neck: Supple, trachea midline Lungs: Lungs clear to auscultation. No wheezing, rhonchi, rales. Heart: RRR without murmur, gallop, or rubs. No ectopy. Abdomen: Normal abdominal exam, Abdomen soft, non-tender. Bowel sounds normal. No masses, organomegaly, Negative CVA tenderness. Musculoskeletal: Negative. Lymph Nodes: No cervical lymphadenopathy and No supraclavicular lymphadenopathy. Assessment: Gastroesophageal reflux disease, esophagitis presence not specified (primary encounter diagnosis) Interstitial lung disease (hcc) Rheumatoid arthritis involving multiple sites, unspecified rheumatoid factor presence (hcc) Plan: I did explain to her that her reflux may or may not be contributing to making her pulmonary disease more symptomatic or worse. We did elect to proceed with a workup to include EGD and manometry. The risks, benefits and complications were reviewed including but not limited to bleeding, infection, missing a lesion, effects of anesthesia and perforation possibly requiring an emergency surgery. She understood and was agreeable to proceed. Stepan Ying M.D., F.A.C.S. Referring Provider: VALERIANO MUNOZ [[id number]] Allergies As of Date: 02/08/2018 Noted Allergy Reaction AMPICILLIN 08/18/2006 16 - Unknown Comments: Told as a child allergic, has had similar meds since CIPROFLOXACIN 07/01/2015 6 - Diarrhea CLINDAMYCIN 07/01/2015 6 - Diarrhea Date Reviewed: 02/08/2018 Reviewed by: Stepan Ying - Fully Assessed Reason for Visit: Initial Consult [665] Primary Visit Diagnosis:Gastroesophageal reflux disease, esophagitis presence not specified [K21.9] Other Visit Diagnoses:Interstitial lung disease (HCC) [J84.9] Rheumatoid arthritis involving multiple sites, unspecified rheumatoid factor presence (HCC) [M06.9] Order(s):MANOMETRY ESOPHAGEAL FUNCTION W/IMPEDANCE [[id number]] Order #: [id number] Prescriptions as of 02/08/2018 Sig: AMLODIPINE 5 MG TABLET Take 5 mg by mouth once daily. SULFAMETHOXAZOLE 800 MG-TRIME* Take by mouth. Mon, wed, fri BUPRENORPHINE 20 MCG/HOUR WEE* Apply as directed once each w* PREDNISONE 10 MG TABLET Take 10 mg by mouth once adama* BUPROPION XL 300 MG 24 HR TAB Take 300 mg by mouth once mary ellen* DULOXETINE 60 MG CAPSULE,HANANE* Take 60 mg by mouth once adama* AZATHIOPRINE 50 MG TABLET 3 tabs daily LIDOCAINE 5 % TOPICAL PATCH Apply 1 Patch as directed as * DICLOFENAC 1 % TOPICAL GEL Apply to affected area four t* [id number] ORAL Take by mouth once daily. CO Q-10 ORAL Take by mouth once daily. FISH OIL-DHA-EPA 1,200 MG-144* Take 1,200 mg by mouth once d* NORCO ORAL Take 7.5 mg by mouth four len* IBUPROFEN 400 MG TABLET Take 400 mg by mouth every 6 * LOSARTAN ORAL Take by mouth. LYRICA ORAL Take 75 mg by mouth. PRILOSEC ORAL Take by mouth twice daily. PROGESTERONE MISC AMBIEN ORAL Take 12.5 mg by mouth. VITAMIN D-3 ORAL Take by mouth. CYMBALTA 20 MG CAPSULE,DELAYE* Take one(1) tablet daily. WELLBUTRIN XL 150 MG 24 HR TA* Take one(1) tablet daily. LOSARTAN 100 MG TABLET Take 100 mg by mouth once mary ellen* TART BALLESTEROS EXTRACT ORAL Take by mouth once daily. HYDROXYCHLOROQUINE 200 MG TAB* Take 200 mg by mouth twice da* ADALIMUMAB 40 MG/0.8 ML SUBCU* Inject 40 mg subcutaneously o* FOLIC ACID 1 MG TABLET Take 1 mg by mouth once daily. HYDROCHLOROTHIAZIDE 12.5 MG C* Take 12.5 mg by mouth once da* IMIPRAMINE HCL ORAL Take by mouth. ARAVA ORAL Take by mouth. CALCIUM 500 ORAL Take by mouth. CEFTIN 250 MG TABLET Take one(1) tablet two(2) len* Patient not taking: No sig reported RELAFEN 500 MG TABLET Take one(1) tablet two(2) len* AVALIDE 150 MG-12.5 MG TABLET Take one(1) tablet daily. Patient not taking: No sig reported Problem List As Of Date 02/08/2018 Noted Resolved Current chronic use of systemic steroids [Z79.5*INVALID FOR* Rheumatoid arthritis (HCC) [M06.9] INVALID FOR* Obesity, Class I, BMI 30-34.9 [E66.9] INVALID FOR* Visit Notes: >> Nalini López RN Mon Feb 08, 2018 2:49 PM Status: Signed Discussed and reviewed manometry with pt; all questions answered. Discussed and reviewed EGD with biopsy with pt; all questions answered. Nalini López RN Disposition: Return for After testing, After EGD. Follow-up and Disposition History Recorded Questionnaire: AG GERD HEALTH RELATED QUALITY OF LIFE Surgery/Baclofen dose -> On PPI'S 1. How bad is the heartburn? -> 2 Notice/bothersome not daily 2. Heartburn when lying down? -> 2 Notice/bothersome not daily 3. Heartburn when standing up? -> 2 Notice/bothersome not daily 4. Heartburn after meals? -> 2 Notice/bothersome not daily 5. Does heartburn change your diet? -> 0 No Symptoms 6. Does heartburn wake you from sleep? -> 0 No Symptoms 7. Do you have difficulty swallowing -> 0 No Symptoms 8. Do you have pain with swallowing? -> 0 No Symptoms 9. If you take medication, does this affect your daily life? -> 0 No Symptoms 10. How bad is the regurgitation? -> 0 No Symptoms 11. Regurgitation when lying down? -> 0 No Symptoms 12. Regurgitation when standing up? -> 0 No Symptoms 13. Regurgitation after meals? -> 0 No Symptoms 14. Does regurgitation change your diet? -> 0 No Symptoms 15. Does regurgitation wake you from sleep? -> 0 No Symptoms TOTAL - HEARTBURN 1-9 -> 8 TOTAL - REGURG 10-15 -> 0 Total -> 8 16. How satisfied are you with your present condition -> Neutral Other symptoms - check all that apply -> Belching/burping -> Sour taste in mouth -> Stomach contents in throat/mouth -> Persistent heartburn w/meds -> Hoarse voice -> Clearing throat -> Feeling full/less food Things that trigger symptoms - check all that apply -> Alcohol Tests done: Date/provider/location (in comments) check all that apply -> [place]- py Cmt: 2015 How long have you had heartburn symptoms -> 10 yrs What is your most troublesome symptom? -> burning, nausea What medications have you been treated with for heartburn/how long? -> omeprazole 10 yrs Letter Text Encounter Status:Closed by STEPAN YING MD on 02/08/18 PROGRESS Observed: 01/29/2018 Status: COMPLETED Source: [place] 1:15 PM [facility] [place] REPOSITORY O ID: [id number] Author: Luis Choudhary) Marisabel Service: (none) Author Type: Physician Neckties Painter Type: Progress Notes Filed: 01/29/2018 1:16 PM Note Text: Records and images reviewed Cervical stenosis gabrielle next available or [facility] (marisabel) for sooner appointment Luis Petit PA-C CHEST WITHOUT Observed: 01/28/2018 Status: F Source: [place] CONTRAST 1:[address] [facility] REPOSITORY [facility] Imaging Services [address] [place] [address] Chest without Contrast MR#: [id number] Acct: [id number] Name: ROSA BLACKWOOD Rep #: [id number] : 1960 F 57 From: Vazquez Kaye MD PCP: Valeriano Munoz MD Status: REG CLI Study: Chest without Contrast Date of Exam: 01/28/18 Exam# [id number] Ordering Dr: Pelon Chatterjee MD STUDY: CT CHEST WITHOUT CONTRAST REASON FOR EXAM: Female, 57 years old. Fever and cough RADIATION DOSAGE (If Supplied By Facility): CTDIvol = ( 14.80 ) mGy, DLP = ( 462.15 ) mGycm TECHNIQUE: Transaxial imaging was performed without the administration of intravenous contrast material. Individualized dose optimization techniques were used for this CT. COMPARISON: 07/01/16 FINDINGS: Lungs are mildly hyperexpanded with chronic interstitial changes in both lung edwards. There is no superimposed infiltrate or effusion. Soft tissue windows show normal-appearing thyroid gland. There are scattered subcentimeter axillary and mediastinal lymph nodes. No pleural or pericardial effusions. Normal osseous structures. There is no demonstrated abnormality of the visualized upper abdomen. CT/Chest without Contrast IMPRESSION: Hyperexpanded lungs with chronic interstitial changes, no superimposed acute pulmonary process. Electronically Signed: Glenn Kaye MD at 18:07 EDT , Service support , CC: Valeriano Munoz MD; Pelon Chatterjee MD Certified Registered Dental Assistant: Signed XR HIP 3V PELV+ Observed: 01/26/2018 Status: F Source: [place] AP/LAT LT 11:23 AM [facility] [place] REPOSITORY * * *Final Report* * * DATE OF EXAM: Jan 26 2018 11:23AM [facility] 5351 - XR HIP 3V PELV+ AP/LAT LT / PROCEDURE REASON: multiple diagnoses * * * * Physician Interpretation * * * * EXAMINATION: XR HIP 3V PELV+ AP/LAT LT HISTORY: chronic pain L hip Pain in left hip Pain in left hip . TECHNIQUE: XR HIP 3V PELV+ AP/LAT LT Laterality: LEFT Number of different views (projections): 2 M: XB_1 COMPARISON: RESULT: Severe narrowing of the left hip joint space with near [id number] contact. Maintained right hip joint. Sacroiliac joints and pubic symphysis appear maintained. No acute fracture or dislocation. There are no bony erosions. IMPRESSION: Severe left hip degenerative change. Certified Registered Dental Assistant: PSCB Transcribe Date/Time: Jan 26 2018 1:03P Dictated by : GUNNER WILHELM MD This examination was interpreted and the report reviewed and electronically signed by: GUNNER WILHELM MD on Jan 26 2018 1:04PM EST [id number] XR SCOLIOSIS 2V PA Observed: 01/26/2018 Status: F Source: [place] STAND/LAT 11:23 AM [facility] REPOSITORY * * *Final Report* * * DATE OF EXAM: Jan 26 2018 11:23AM [facility] 5251 - XR SCOLIOSIS 2V PA STAND/LAT / PROCEDURE REASON: Spondylosis without myelopathy or radiculopathy, lumbar region * * * * Physician Interpretation * * * * EXAMINATION: XR SCOLIOSIS 2V PA STAND/LAT HISTORY: Spondylosis without myelopathy or radiculopathy, lumbar region . TECHNIQUE: XR SCOLIOSIS 2V PA STAND/LAT Laterality: Number of different views (projections): 8 M: XB_1 COMPARISON: RESULT: Counting Reference: Lumbosacral junction.. For the purposes of this report, the most caudal normal disc space in the lumbar region will be labeled as L5-S1. The iliac crest will serve as a secondary landmark to identify the L4-5 level. Exceptions: none There is mild thoracolumbar scoliosis measuring 20 degrees between T5 and T12 convex right and 20 degrees between T12 and L4 convex left. The vertebral body heights appear maintained in the thoracic and lumbar spine. Moderate thoracic spine and advanced lower lumbar spine degenerative disc changes. Maintained sacroiliac joints. Severe narrowing of the left hip joint IMPRESSION: Mild thoracolumbar scoliosis. Certified Registered Dental Assistant: PSCB Transcribe Date/Time: Jan 26 2018 1:04P Dictated by : GUNNER WILHELM MD This examination was interpreted and the report reviewed and electronically signed by: GUNNER WILHELM MD on Jan 26 2018 1:07PM EST [id number] PROGRESS Observed: 01/26/2018 Status: COMPLETED Source: [place] 11:18 AM [facility] REPOSITORY HNO ID: [id number] Author: Carmelita Carmona Service: (none) Author Type: (none) Type: Progress Notes Filed: 01/26/2018 11:19 AM Note Text: Radiology Service Progress Note PATIENT NAME: Rosa Blackwood DATE OF SERVICE: January 26, 2018 TIME: 11:18 AM PATIENT IDENTITY VERIFICATION COMPLETED USING TWO (2) METHODS: Patient confirmed name verbally and ID band matches.. PATIENT GENDER DATA: Female. status: : No status: N/A PATIENT RELEVANT IMPLANT DATA REVIEWED: Not Applicable RADIOLOGY DEPARTMENT: General X-ray: Exam(s) Completed: Spine X-Ray(s): Scoliosis Series Pelvis X-Ray: Pelvis with Hip Left PERIPHERAL IV DATA: Not applicable SIGNED BY: Carmelita Carmona January 26, 2018 11:18 AM PROGRESS Observed: 01/26/2018 Status: COMPLETED Source: [place] 11:00 AM [facility] REPOSITORY HNO ID: [id number] Author: Carlos Shipman Service: (none) Author Type: Physician Type: Progress Notes Filed: 02/06/2018 11:39 AM Note Text: SPINE SURGERY OUTPATIENT CONSULT SERVICE DATE: 01/29/2018 PCP: Valeriano Munoz MD REFERRING PROVIDER: Dr. Encarnacion Consult requested for an opinion regarding the evaluation and treatment of neck and back pain. My final impression and recommendations will be communicated back to the requesting physician by way of the shared medical record or letter via US mail. SUBJECTIVE Rosa Blackwood is a 57 year old female presenting with sister. CHIEF COMPLAINT: back and left hip pain HISTORY OF PRESENT ILLNESS PRECIPITATING EVENT: None DURATION OF SYMPTOMS: Less Than 6 Weeks Had severe neck and arm pain with radiation and numbness in the hands when she saw Dr. Encarnacion about 3 weeks ago. Referred here secondary to her complex underlying medical conditions. Since that time neck pain is much better and she can tolerated the arm symptoms. However, she now has severe left buttock, groin and anterior thigh pain. worse with standing, to the point where she is using a wheelchair. Also has some pain / numbness radiating to the foot but this is less severe. PAIN EVALUATION 01/26/2018 Pain Score: 9 Pain Location: Back-Lower Down left leg to foot Description: Numbness;Tingling;Dull;Aching;Burning;Sharp;Throbbing;Shooting;Stabbing/Not Incision Duration Amount of Time: 25 Worse the past 2 months Duration Units: Years Frequency: Continuous Intervention: Exercise;Medication;Cold;Reposition;Pillow support;Distractions injections, tens unit, chiropractor, trigger point injections Pain Radiation: down the left thigh Aggravating Factors: Standing, Walking Alleviating Factors: None Pain Ratio: Pain in the leg(s) is greater than in the back DERMATOMAL DISTRIBUTION: Left: L3 AMBULATORY STATUS: Impaired Home Distances ANTIPLATELET OR ANTICOAGULATION STATUS: No PREVIOUS CONSERVATIVE TREATMENTS: RX NSAIDS for 3 Months or Greater (diclofenac (Voltaren, [place])) Analgesics Opioids Oral Steroids Epidural Blocks: Date(s) 12/2017 PREVIOUS SPINAL SURGERY: None ACTIVE PROBLEM LIST Current Chronic Use of Systemic Steroids Rheumatoid Arthritis (Hcc) Obesity, Class I, Bmi 30-34.9 PAST MEDICAL HISTORY Diagnosis Date - Current chronic use of systemic steroids - Fibromyalgia - Rheumatoid arthritis (HCC) PAST SURGICAL HISTORY Procedure Laterality Date - KIDNEY SURGERY HX - TOTAL KNEE REPLACEMENT FAMILY HISTORY Problem Relation Age of Onset - Arthritis Mother - Hypertension Mother - Hypertension Father Social History Marital status: Spouse name: Years of education: Number of children: Social History Main Topics Smoking status: Former Smoker Packs/day: 0.00 Years: 0.00 Smokeless tobacco: Never Used Comment: 10 YEARS AGO Alcohol use: Yes 4.5 oz/week Glasses of Wine (5oz): 1, Cans of Beer (12oz): 1, Mixed Drinks: 1 per week Comment: OCCASIONALLY DRINKS ABOVE ALCOHOLIC DRINKS Drug use: No ALLERGIES Allergen Reactions - Ampicillin Unknown Told as a child allergic, has had similar meds since - Ciprofloxacin Diarrhea - Clindamycin Diarrhea MEDICATIONS: amLODIPine (NORVASC) 5 mg tablet Take 5 mg by mouth once daily. sulfamethoxazole-trimethoprim (BACTRIM DS,SEPTRA DS) 800-160 mg per tablet Take by mouth. Mon, wed, fri buprenorphine (BUTRANS) 20 mcg/hour ptwk Apply as directed once each week. losartan (COZAAR) 100 mg tablet Take 100 mg by mouth once daily. predniSONE (DELTASONE) 10 mg tablet Take 10 mg by mouth once daily. buPROPion XL (WELLBUTRIN XL) 300 mg 24 hr tablet Take 300 mg by mouth once daily. DULoxetine (CYMBALTA) 60 mg capsule Take 60 mg by mouth once daily. azaTHIOprine (IMURAN) 50 mg tablet 3 tabs daily lidocaine (LIDODERM) 5 % Apply 1 Patch as directed as needed. diclofenac sodium (VOLTAREN) 1 % topical gel Apply to affected area four times daily. sour ballesteros extract (TART BALLESTEROS EXTRACT ORAL) Take by mouth once daily. [id number] ORAL Take by mouth once daily. UBIDECARENONE (CO Q-10 ORAL) Take by mouth once daily. Fish Oil-DHA-EPA 1,200-144-216 mg cap Take 1,200 mg by mouth once daily. HYDROCODONE/ACETAMINOPHEN (NORCO ORAL) Take 7.5 mg by mouth four times daily as needed. 7.5 - 325 mg ibuprofen (MOTRIN) 400 mg tablet Take 400 mg by mouth every 6 hours as needed. PREGABALIN (LYRICA ORAL) Take 75 mg by mouth. OMEPRAZOLE (PRILOSEC ORAL) Take by mouth twice daily. PROGESTERONE MISC ZOLPIDEM TARTRATE (AMBIEN ORAL) Take 12.5 mg by mouth. CALCIUM CARBONATE/VITAMIN D3 (VITAMIN D-3 ORAL) Take by mouth. hydroxychloroquine (PLAQUENIL) 200 mg tablet Take 200 mg by mouth twice daily. adalimumab (HUMIRA) 40 mg/0.8 mL injection Inject 40 mg subcutaneously one time only. 1 injection every 14 days folic acid 1 mg tablet Take 1 mg by mouth once daily. Hydrochlorothiazide 12.5 mg capsule Take 12.5 mg by mouth once daily. IMIPRAMINE HCL ORAL Take by mouth. LEFLUNOMIDE (ARAVA ORAL) Take by mouth. LOSARTAN POTASSIUM (LOSARTAN ORAL) Take by mouth. CALCIUM CARBONATE (CALCIUM 500 ORAL) Take by mouth. cefUROXime (CEFTIN) 250 mg ORAL Tab Take one(1) tablet two(2) times daily with food. nabumetone (RELAFEN) 500 mg ORAL Tab Take one(1) tablet two(2) times daily. CYMBALTA 20 MG CAP Take one(1) tablet daily. WELLBUTRIN XL 150 MG 24 HR TAB Take one(1) tablet daily. AVALIDE 150 MG-12.5 MG TAB Take one(1) tablet daily. REVIEW OF SYSTEMS: PAIN ASSESSMENT: See HPI. GENERAL: Denies fever, chills malaise and weight loss. HEENT: No recent change in vision or hearing. CARDIOVASCULAR: Denies chest pain, history of A-fib, valvular disease, or pacemaker/ICD. RESPIRATORY: Shortness of breath and on chronic steroids GI: Denies GI ulcers, inflammatory disease, or liver disease. : Denies change in frequency or urgency, kidney disease, and burning with urination. MUSCULOSKELETAL: Positive for See HPI SKIN: Denies rash or itching. PSYCHOLOGICAL: Denies uncontrolled depression or anxiety. NEURO: Denies CVA, seizures, headaches. ENDOCRINE: Denies diabetes, thyroid disease. HEMATOLOGY/LYMPHOLOGY: Denies cancer, bleeding or clotting disorders, anemia,and DVT's. ALLERGIC/IMMUNOLOGICAL: Denies risks for infection, or recent MRSA infections. OBJECTIVE: PHYSICAL EXAM BP 127/71 Pulse 83 Resp 16 Ht 160 cm (5' 3) Wt 80.3 kg (177 lb) BMI 31.35 kg/m? GENERAL APPEARANCE: Well nourished, well developed, and no apparent distress. NEURO PSYCH: Patient oriented to person, place, and time. Mood pleasant. Benign affect. CARDIOVASCULAR: Palpable pulses. No edema noted. No varicosities. SKIN: Head, neck, trunk, and extremities dry, intact and without lesions. LYMPHATICS: No palpable nodes in cervical or axillae areas. Groin exam deferred. MUSCULOSKELETAL VISUAL INSPECTION CERVICAL: WNL THORACIC: WNL LUMBAR: WNL PALPATION: SPINOUS PROCESS: No pain. PARASPINALS: No pain. MUSCLE BULK: Normal and symmetrical in the upper AND lower extremities. MUSCLE TONE: Normal. MOTOR: 5/5 in all muscle groups. SENSORY: Normal sensory exam GAIT: NT REFLEXES: +2 to bilateral U/L extremities. PROPRIOCEPTION: Normal. LONG TRACT SIGNS: No clonus. No Hoffmans. STRAIGHT LEG TEST: Not Tested. L'HERMITTES SIGN: Not tested. SPURLING'S TEST: Not tested. Severe pain with internal rotation of left hip NEURO TESTS: None DATA REVIEW Imaging and outside records reviewed Images reviewed with the patient ASSESSMENT/PLAN (M25.552) Pain in left hip (primary encounter diagnosis) (M25.552) Pain of left hip joint (E66.9) Obesity, Class I, BMI 30-34.9 (M47.816) Lumbar spondylosis Neck pain greatly improved. Not a major issue at this point. Has severe left leg and groin pain concerning for a hip problem. Also has some symptoms of a left L5 radiculopathy. Will image her hip and lumbar spine. Rosa Blackwood has a condition that requires further workup. 1. Imaging: Lumbar MRI Without Contrast Six weeks of NSAIDS - Dates . and MRI left hip and Scoliosis X-Ray 2. Follow up: Following above SIGNATURE: Carlos Shipman MD PATIENT NAME: Rosa Blackwood PAGER: CNOV Observed: 01/26/2018 Status: COMPLETED Source: [place] 8:40 AM [facility] REPOSITORY Office Visit (SPNSMN) ROSA BLACKWOOD ([id number]) 1960 F Date Time Provider Department 01/26/18 8:40 AM CARLOS SHIPMAN SPJUS During your visit today, we recorded the following information about you: Pulse Respiration Blood pressure Weight 83/minute 16/minute 127/71 80.3 kg Height 1.6 m Carlos Shipman MD 02/06/2018 11:39 AM Signed SPINE SURGERY OUTPATIENT CONSULT SERVICE DATE: 01/29/2018 PCP: Valeriano Munoz MD REFERRING PROVIDER: Dr. Encarnacion Consult requested for an opinion regarding the evaluation and treatment of neck and back pain. My final impression and recommendations will be communicated back to the requesting physician by way of the shared medical record or letter via US mail. SUBJECTIVE Rosa Blackwood is a 57 year old female presenting with sister. CHIEF COMPLAINT: back and left hip pain HISTORY OF PRESENT ILLNESS PRECIPITATING EVENT: None DURATION OF SYMPTOMS: Less Than 6 Weeks Had severe neck and arm pain with radiation and numbness in the hands when she saw Dr. Encarnacion about 3 weeks ago. Referred here secondary to her complex underlying medical conditions. Since that time neck pain is much better and she can tolerated the arm symptoms. However, she now has severe left buttock, groin and anterior thigh pain. worse with standing, to the point where she is using a wheelchair. Also has some pain / numbness radiating to the foot but this is less severe. PAIN EVALUATION 01/26/2018 Pain Score: 9 Pain Location: Back-Lower Down left leg to foot Description: Numbness;Tingling;Dull;Aching;Burning;Sharp;Throbbing;Shooting;Stabbing/Not Incision Duration Amount of Time: 25 Worse the past 2 months Duration Units: Years Frequency: Continuous Intervention: Exercise;Medication;Cold;Reposition;Pillow support;Distractions injections, tens unit, chiropractor, trigger point injections Pain Radiation: down the left thigh Aggravating Factors: Standing, Walking Alleviating Factors: None Pain Ratio: Pain in the leg(s) is greater than in the back DERMATOMAL DISTRIBUTION: Left: L3 AMBULATORY STATUS: Impaired Home Distances ANTIPLATELET OR ANTICOAGULATION STATUS: No PREVIOUS CONSERVATIVE TREATMENTS: RX NSAIDS for 3 Months or Greater (diclofenac (Voltaren, [place])) Analgesics Opioids Oral Steroids Epidural Blocks: Date(s) 12/2017 PREVIOUS SPINAL SURGERY: None ACTIVE PROBLEM LIST Current Chronic Use of Systemic Steroids Rheumatoid Arthritis (Hcc) Obesity, Class I, Bmi 30-34.9 PAST MEDICAL HISTORY Diagnosis Date - Current chronic use of systemic steroids - Fibromyalgia - Rheumatoid arthritis (HCC) PAST SURGICAL HISTORY Procedure Laterality Date - KIDNEY SURGERY HX - TOTAL KNEE REPLACEMENT FAMILY HISTORY Problem Relation Age of Onset - Arthritis Mother - Hypertension Mother - Hypertension Father Social History Marital status: Spouse name: Years of education: Number of children: Social History Main Topics Smoking status: Former Smoker Packs/day: 0.00 Years: 0.00 Smokeless tobacco: Never Used Comment: 10 YEARS AGO Alcohol use: Yes 4.5 oz/week Glasses of Wine (5oz): 1, Cans of Beer (12oz): 1, Mixed Drinks: 1 per week Comment: OCCASIONALLY DRINKS ABOVE ALCOHOLIC DRINKS Drug use: No ALLERGIES Allergen Reactions - Ampicillin Unknown Told as a child allergic, has had similar meds since - Ciprofloxacin Diarrhea - Clindamycin Diarrhea MEDICATIONS: amLODIPine (NORVASC) 5 mg tablet Take 5 mg by mouth once daily. sulfamethoxazole-trimethoprim (BACTRIM DS,SEPTRA DS) 800-160 mg per tablet Take by mouth. Mon, wed, fri buprenorphine (BUTRANS) 20 mcg/hour ptwk Apply as directed once each week. losartan (COZAAR) 100 mg tablet Take 100 mg by mouth once daily. predniSONE (DELTASONE) 10 mg tablet Take 10 mg by mouth once daily. buPROPion XL (WELLBUTRIN XL) 300 mg 24 hr tablet Take 300 mg by mouth once daily. DULoxetine (CYMBALTA) 60 mg capsule Take 60 mg by mouth once daily. azaTHIOprine (IMURAN) 50 mg tablet 3 tabs daily lidocaine (LIDODERM) 5 % Apply 1 Patch as directed as needed. diclofenac sodium (VOLTAREN) 1 % topical gel Apply to affected area four times daily. sour ballesteros extract (TART BALLESTEROS EXTRACT ORAL) Take by mouth once daily. CZJZIYE-QFSZBJJSM-OZCV ORAL Take by mouth once daily. UBIDECARENONE (CO Q-10 ORAL) Take by mouth once daily. Fish Oil-DHA-EPA 1,200-144-216 mg cap Take 1,200 mg by mouth once daily. HYDROCODONE/ACETAMINOPHEN (NORCO ORAL) Take 7.5 mg by mouth four times daily as needed. 7.5 - 325 mg ibuprofen (MOTRIN) 400 mg tablet Take 400 mg by mouth every 6 hours as needed. PREGABALIN (LYRICA ORAL) Take 75 mg by mouth. OMEPRAZOLE (PRILOSEC ORAL) Take by mouth twice daily. PROGESTERONE MISC ZOLPIDEM TARTRATE (AMBIEN ORAL) Take 12.5 mg by mouth. CALCIUM CARBONATE/VITAMIN D3 (VITAMIN D-3 ORAL) Take by mouth. hydroxychloroquine (PLAQUENIL) 200 mg tablet Take 200 mg by mouth twice daily. adalimumab (HUMIRA) 40 mg/0.8 mL injection Inject 40 mg subcutaneously one time only. 1 injection every 14 days folic acid 1 mg tablet Take 1 mg by mouth once daily. Hydrochlorothiazide 12.5 mg capsule Take 12.5 mg by mouth once daily. IMIPRAMINE HCL ORAL Take by mouth. LEFLUNOMIDE (ARAVA ORAL) Take by mouth. LOSARTAN POTASSIUM (LOSARTAN ORAL) Take by mouth. CALCIUM CARBONATE (CALCIUM 500 ORAL) Take by mouth. cefUROXime (CEFTIN) 250 mg ORAL Tab Take one(1) tablet two(2) times daily with food. nabumetone (RELAFEN) 500 mg ORAL Tab Take one(1) tablet two(2) times daily. CYMBALTA 20 MG CAP Take one(1) tablet daily. WELLBUTRIN XL 150 MG 24 HR TAB Take one(1) tablet daily. AVALIDE 150 MG-12.5 MG TAB Take one(1) tablet daily. REVIEW OF SYSTEMS: PAIN ASSESSMENT: See HPI. GENERAL: Denies fever, chills malaise and weight loss. HEENT: No recent change in vision or hearing. CARDIOVASCULAR: Denies chest pain, history of A-fib, valvular disease, or pacemaker/ICD. RESPIRATORY: Shortness of breath and on chronic steroids GI: Denies GI ulcers, inflammatory disease, or liver disease. : Denies change in frequency or urgency, kidney disease, and burning with urination. MUSCULOSKELETAL: Positive for See HPI SKIN: Denies rash or itching. PSYCHOLOGICAL: Denies uncontrolled depression or anxiety. NEURO: Denies CVA, seizures, headaches. ENDOCRINE: Denies diabetes, thyroid disease. HEMATOLOGY/LYMPHOLOGY: Denies cancer, bleeding or clotting disorders, anemia,and DVT's. ALLERGIC/IMMUNOLOGICAL: Denies risks for infection, or recent MRSA infections. OBJECTIVE: PHYSICAL EXAM BP 127/71 Pulse 83 Resp 16 Ht 160 cm (5' 3) Wt 80.3 kg (177 lb) BMI 31.35 kg/m? GENERAL APPEARANCE: Well nourished, well developed, and no apparent distress. NEURO PSYCH: Patient oriented to person, place, and time. Mood pleasant. Benign affect. CARDIOVASCULAR: Palpable pulses. No edema noted. No varicosities. SKIN: Head, neck, trunk, and extremities dry, intact and without lesions. LYMPHATICS: No palpable nodes in cervical or axillae areas. Groin exam deferred. MUSCULOSKELETAL VISUAL INSPECTION CERVICAL: WNL THORACIC: WNL LUMBAR: WNL PALPATION: SPINOUS PROCESS: No pain. PARASPINALS: No pain. MUSCLE BULK: Normal and symmetrical in the upper AND lower extremities. MUSCLE TONE: Normal. MOTOR: 5/5 in all muscle groups. SENSORY: Normal sensory exam GAIT: NT REFLEXES: +2 to bilateral U/L extremities. PROPRIOCEPTION: Normal. LONG TRACT SIGNS: No clonus. No Hoffmans. STRAIGHT LEG TEST: Not Tested. L'HERMITTES SIGN: Not tested. SPURLING'S TEST: Not tested. Severe pain with internal rotation of left hip NEURO TESTS: None DATA REVIEW Imaging and outside records reviewed Images reviewed with the patient ASSESSMENT/PLAN (M25.552) Pain in left hip (primary encounter diagnosis) (M25.552) Pain of left hip joint (E66.9) Obesity, Class I, BMI 30-34.9 (M47.816) Lumbar spondylosis Neck pain greatly improved. Not a major issue at this point. Has severe left leg and groin pain concerning for a hip problem. Also has some symptoms of a left L5 radiculopathy. Will image her hip and lumbar spine. Rosa Blackwood has a condition that requires further workup. 1. Imaging: Lumbar MRI Without Contrast Six weeks of NSAIDS - Dates . and MRI left hip and Scoliosis X-Ray 2. Follow up: Following above SIGNATURE: Carlos Shipman MD PATIENT NAME: Rosa Blackwood PAGER: Referring Provider: SELF [200] Allergies As of Date: 01/26/2018 Noted Allergy Reaction AMPICILLIN 08/18/2006 16 - Unknown Comments: Told as a child allergic, has had similar meds since CIPROFLOXACIN 07/01/2015 6 - Diarrhea CLINDAMYCIN 07/01/2015 6 - Diarrhea Date Reviewed: 01/26/2018 Reviewed by: More Campoverde Ma - Fully Assessed Reason for Visit: New Patient [172] Primary Visit Diagnosis:Pain in left hip [M25.552] Other Visit Diagnoses:Pain of left hip joint [M25.552] Obesity, Class I, BMI 30-34.9 [E66.9] Lumbar spondylosis [M47.816] Order(s):XR HIP GENERAL 3V PELV/AP/LAT LT [[id number]] Order #: [id number] #:[id number] MRI HIP WO/W IVCON LT [[id number]] Order #: [id number] [] iv contrast (will be provided with radiology test)MRI hip/pelvis LTInject, intravenously, once for 1 dose. No IV access, insert saline lock prior to the beginning of sedation, infusion, injection of imaging exam. Discontinue saline lock post exam. If Pt. has a central line or IVAD, may access for administration according to line specific nursing protocol. Once exam is complete flush line and de-access according to line specific nursing protocol in the MR contrast administration guidelines linkDisp: 1 EachRfl: 0 XR SCOLIOSIS PA STAND/LAT 2V [[id number]] Order #: [id number] FUTURE Prescriptions as of 01/26/2018 Sig: AMLODIPINE 5 MG TABLET Take 5 mg by mouth once daily. SULFAMETHOXAZOLE 800 MG-TRIME* Take by mouth. Mon, wed, fri BUPRENORPHINE 20 MCG/HOUR WEE* Apply as directed once each w* LOSARTAN 100 MG TABLET Take 100 mg by mouth once mary ellen* PREDNISONE 10 MG TABLET Take 10 mg by mouth once adama* BUPROPION XL 300 MG 24 HR TAB Take 300 mg by mouth once mary ellen* DULOXETINE 60 MG CAPSULE,HANANE* Take 60 mg by mouth once adama* AZATHIOPRINE 50 MG TABLET 3 tabs daily LIDOCAINE 5 % TOPICAL PATCH Apply 1 Patch as directed as * DICLOFENAC 1 % TOPICAL GEL Apply to affected area four t* TART BALLESTEROS EXTRACT ORAL Take by mouth once daily. HVKSBRE-TBGEBWXKI-AMCV ORAL Take by mouth once daily. CO Q-10 ORAL Take by mouth once daily. FISH OIL-DHA-EPA 1,200 MG-144* Take 1,200 mg by mouth once d* NORCO ORAL Take 7.5 mg by mouth four len* IBUPROFEN 400 MG TABLET Take 400 mg by mouth every 6 * LYRICA ORAL Take 75 mg by mouth. PRILOSEC ORAL Take by mouth twice daily. PROGESTERONE MISC AMBIEN ORAL Take 12.5 mg by mouth. VITAMIN D-3 ORAL Take by mouth. IV CONTRAST (RADIOLOGY PROCED* MRI hip/pelvis LTInject, intr* HYDROXYCHLOROQUINE 200 MG TAB* Take 200 mg by mouth twice da* ADALIMUMAB 40 MG/0.8 ML SUBCU* Inject 40 mg subcutaneously o* FOLIC ACID 1 MG TABLET Take 1 mg by mouth once daily. HYDROCHLOROTHIAZIDE 12.5 MG C* Take 12.5 mg by mouth once da* IMIPRAMINE HCL ORAL Take by mouth. ARAVA ORAL Take by mouth. LOSARTAN ORAL Take by mouth. CALCIUM 500 ORAL Take by mouth. CEFTIN 250 MG TABLET Take one(1) tablet two(2) len* Patient not taking: No sig reported RELAFEN 500 MG TABLET Take one(1) tablet two(2) len* CYMBALTA 20 MG CAPSULE,DELAYE* Take one(1) tablet daily. Patient not taking: No sig reported WELLBUTRIN XL 150 MG 24 HR TA* Take one(1) tablet daily. Patient not taking: No sig reported AVALIDE 150 MG-12.5 MG TABLET Take one(1) tablet daily. Patient not taking: No sig reported Problem List As Of Date 01/26/2018 Noted Resolved Current chronic use of systemic steroids [Z79.5*INVALID FOR* Rheumatoid arthritis (HCC) [M06.9] INVALID FOR* Obesity, Class I, BMI 30-34.9 [E66.9] INVALID FOR* Prescriptions ordered this encounter Disp Refills Start End IV CONTRAST (RADIOLOGY PROCEDURE) 1 Ea* 0 01/26/2018 01/27/2018 Class: In Office Sig: MRI hip/pelvis LTInject, intravenously, once for 1 dose. No IV access, insert saline lock prior to the beginning of sedation, infusion, injection of imaging exam. Discontinue saline lock post exam. If Pt. has a central line or IVAD, may access for administration according to line specific nursing protocol. Once exam is complete flush line and de-access according to line specific nursing protocol in the MR contrast administration guidelines link Encounter Status:Closed by CARLOS SHIPMAN MD on 02/06/18 EMERGENCY DEPARTMENT Observed: 01/20/2018 Status: F Source: [place] SUMMARY 2:[address] [facility] REPOSITORY [facility] Medical Records Department [address] [place] [address] [place] [address] Emergency Department Summary 01/19/18 1534 MR#: [id number] Acct: [id number] Name: ROSA BLACKWOOD Rep #: [id number] : 1960 57 From: Gunner Mc MD PCP: Valeriano Munoz MD Status: DEP ER - ER Visit Summary Date of Service: 01/19/18 Chief Complaint: Back pain History of Present Illness: The patient is a 57 F presenting for evaluation secondary to back pain. Patient deals with chronic back pain and has been seeing a chiropractor, physical therapy, as well as a spinal surgeon. Patient reports that she was actually doing somewhat well with her rehab, but about 10 days ago she had a sudden onset of worsening neck pain. She describes this as being in her lower back with radiation down the entirety of her left leg. She reports over the last couple of days she has started to have some pain going down her right hip. Patient states that over the course of the last 5 days she has been having severe issues with urinary incontinence, and she also reports that she has developed some saddle anesthesia associated with this. She denies any fever sweats or unintended weight loss associated with this. She does endorse that she has some weakness in her left leg associated with this. Review of systems otherwise negative. Patient does also endorse that over the last 2 months she has had 2 episodes of fecal incontinence. Physical Examination: Vitals: Within normal limits General: Well-nourished well-developed no acute distress Head: Normocephalic atraumatic ENT: Moist mucous membranes Neck: Supple no JVD Cardiovascular: Heart regular rate and rhythm no murmurs Respiratory: Respirations nondistressed, lung sounds clear to auscultation bilaterally Abdominal: Soft, nontender, nondistended, normal bowel sounds, no evidence of abdominal [...] Lumbar radiculopathy This note was generated with WeLink dictation software. It may contain incorrect words, spelling, and punctuation that were not noted in review of the chart prior to signing ED Disposition - Plan for ED Patient: Disposition: Home or Assisted Living Chief Complaint: Back Diagnosis: Lumbar radiculopathy, acute Instructions: ED Sciatica Prescriptions: MethylPREDNISolone DosePak [Medrol DosePak] 4 mg PO UD #1 box Referrals: Valeriano Munoz MD [Primary Care Provider] - As soon as possible What to do if you have Problems For any increased pain, shortness of breath, bleeding, nausea or vomiting, chest pain, or any unexpected problems, contact your Primary Care Provider. Call [facility] ([phone]) or report to the closest Emergency Room. Call 911 if necessary. 01/20/18 0235 <Electronically signed by Gunner Mc MD> Date Gunner Mc MD Cosigner Signature (If Indicated): Date CC: Valeriano Munoz MD [facility] Observed: 01/20/2018 Status: COMPLETED Source: [place] 12:00 AM [facility] REPOSITORY Telephone (SPNSMN) CHASTITYROSA ([id number]) 1960 F IPA Date Time Provider Department 01/20/18 CARLOS SHIPMAN During your visit today, we recorded the following information about you: AMERICA MCCLOUD RN, RN 01/20/2018 11:38 AM Signed Called to Beti in Dr Munoz's office. Left message for her to call back. Dr Sagrario Mccloud from [facility] has also contacted Dr Shipman about seeing this pt. Will discuss which provider pt would like to see. AMERICA MCCLOUD RN, RN 01/20/2018 1:35 PM Signed Spoke to Beti in Dr Munoz's office. It seems that 2 providers were referring the pt to Spine Surgery. Beti asked the the pt be scheduled with Dr Shipman. They accept appt: 01/26/18 at 9:00 AM (arrival 8:40) on S70, New Consult. Beti will contact the patient with appt info. Schedulers notified. Allergies As of Date: 01/20/2018 Noted Allergy Reaction AMPICILLIN 08/18/2006 CIPROFLOXACIN 07/01/2015 6 - Diarrhea CLINDAMYCIN 07/01/2015 6 - Diarrhea Date Reviewed: 02/25/2016 Reviewed by: Lucia (Rn) ECHO Azul - Fully Assessed Reason for Visit: Future Appointment [256] Prescriptions as of 01/20/2018 Sig: HYDROXYCHLOROQUINE 200 MG TAB* Take 200 mg by mouth twice da* ADALIMUMAB 40 MG/0.8 ML SUBCU* Inject 40 mg subcutaneously o* CO Q-10 ORAL Take by mouth once daily. FISH OIL-DHA-EPA 1,200 MG-144* Take 1,200 mg by mouth once d* FOLIC ACID 1 MG TABLET Take 1 mg by mouth once daily. HYDROCHLOROTHIAZIDE 12.5 MG C* Take 12.5 mg by mouth once da* NORCO ORAL Take by mouth. IBUPROFEN 400 MG TABLET Take 400 mg by mouth every 6 * IMIPRAMINE HCL ORAL Take by mouth. ARAVA ORAL Take by mouth. LOSARTAN ORAL Take by mouth. LYRICA ORAL Take by mouth. PRILOSEC ORAL Take by mouth. PROGESTERONE MISC AMBIEN ORAL Take by mouth. CALCIUM 500 ORAL Take by mouth. VITAMIN D-3 ORAL Take by mouth. CEFTIN 250 MG TABLET Take one(1) tablet two(2) len* RELAFEN 500 MG TABLET Take one(1) tablet two(2) len* CYMBALTA 20 MG CAPSULE,DELAYE* Take one(1) tablet daily. WELLBUTRIN XL 150 MG 24 HR TA* Take one(1) tablet daily. AVALIDE 150 MG-12.5 MG TABLET Take one(1) tablet daily. Problem List As Of Date 01/20/2018 Noted Resolved Current chronic use of systemic steroids [Z79.5*INVALID FOR* Rheumatoid arthritis (HCC) [M06.9] INVALID FOR* Encounter Status:Closed by AMERICA MCCLOUD on 01/20/18 SPINE LUMBAR Observed: 01/19/2018 Status: F Source: [place] (ROUTINE) 3:[address] [facility] REPOSITORY [facility] Imaging Services [address] [place] [address] Spine Lumbar (Routine) MR#: [id number] Acct: [id number] Name: ROSA BLACKWOOD Rep #: [id number] : 1960 F 57 From: Nabeel Bernabe MD PCP: Valeriano Munoz MD Status: REG ER Study: Spine Lumbar (Routine) Date of Exam: 01/19/18 Exam# [id number] Ordering Dr: Gunner Mc MD STUDY: MRI LUMBAR SPINE WITHOUT CONTRAST [...] scoliosis. Normal conus medullaris that terminates at T12-L1 L1-2: Normal endplates. Normal disc height, hydration and minimal annular bulge. Normal bilateral facet joints. Normal central canal and bilateral lateral recesses. Normal bilateral intervertebral neural foramina. L2-3: Normal endplates. Normal disc height, hydration and minimal annular bulge with tiny left foraminal disc protrusion. Normal bilateral facet joints. Normal central canal and bilateral lateral recesses. Mild left neural foraminal encroachment. L3-4: Normal endplates. Normal disc height, desiccation and mild annular bulge. Facet arthropathy and right synovial cyst. Normal central canal . Mild left lateral recess and neuroforaminal encroachment. Moderate right lateral recess stenosis and mild neural foraminal encroachment L4-5: Normal endplates. Narrowed disc space with desiccation of the disc and moderate annular bulge. Bilateral facet arthropathy and thickening of ligamenta flava more pronounced on the left. Mild narrowing of the central canal. Moderate right lateral recess and neural foraminal stenosis with more severe narrowing on the left L5-S1: Normal endplates. Narrowed disc space with desiccation of the disc and minor annular bulge.. Bilateral facet arthropathy and thickening of ligamenta flava more pronounced on the left.. Normal central canal. Moderate right lateral recess and neuroforaminal encroachment with more severe narrowing on the left. Normal visualized sacral ala. Incidental finding of atrophic right kidney Normal visualized paraspinous soft tissue structures. MRI/Spine Lumbar (Routine) IMPRESSION: No evidence for acute fracture.. Severe levoscoliosis and degenerative changes. Multilevel spinal stenosis most severe at L4-5 and L5-S1 greater on the left Electronically Signed: Nabeel Bernabe MD at 19:57 EDT , Service support , CC: Valeriano Munoz MD; Gunner Mc Certified Registered Dental Assistant: Signed PROGRESS Observed: 01/19/2018 Status: COMPLETED Source: [place] 3:17 PM [facility] [place] REPOSITORY HNO ID: [id number] Author: Magdalena Nguyen Service: (none) Author Type: (none) Type: Progress Notes Filed: 01/29/2018 1:16 PM Note Text: Imaging reports scanned Patient name: Rosa Blackwood Are you being referred by a [facility] Provider or Pain Management Provider at [facility]? No If no, who is the Referring Provider: Dr Valeriano Munoz MRI/CT/myelogram within 12 months: Yes Imaging viewable in Epic: No If no, please instruct pt to provide most recent spine imaging in on CD with report for review during triage Requested provider: Dr. Shledon 1. Are you having pain in any of the following areas related to this visit? Neck Back 2. Are you having any of the following symptoms: having difficulty walking, numbness, weakness or trouble using your hands? Yes All 3. Have you completed the following treatment in the past 12 months for this problem? Conservative Therapy: NSAIDS, Muscle relaxants, Physical therapy, Oral steroids, Trigger point injection, Epidural blocks, Chiropractor and Acupuncture 4. Are you currently taking daily prescribed narcotic medications for your current symptoms? Yes 5. Have you had previous spinal surgery for this same problem? No Additional Comments: Beti from doctors office will fax MRI report. Please call Beti from doctors office [phone] to schedule patient. MR-SPINE LUMBAR Observed: 01/19/2018 Status: F Source: [place] ([facility]) IMPORT 12:00 AM [facility] [place] REPOSITORY Images were obtained outside of [facility] [id number] LOWER EXT/NO JT/W/O Observed: 12/10/2017 Status: F Source: [place] 3:[address] [facility] REPOSITORY [facility] Imaging Services [address] [place] [address] Lower Ext/No Jt/w/o MR#: [id number] Acct: [id number] Name: ROSA BLACKWOOD Rep #: [id number] : 1960 F 56 From: Julio Cannon MD PCP: Valeriano Munoz MD Status: REG CLI Study: Lower Ext/No Jt/w/o Date of Exam: 12/10/17 Exam# [id number] Ordering Dr: Nabeel Danielle DPM STUDY: MRI RIGHT MIDFOOT REASON FOR EXAM: Female, 56 years old. History of cuneiform fracture. Pain. TECHNIQUE: Standardized fat and water weighted pulse sequences were obtained in all 3 orthogonal planes. COMPARISON: X-ray August 18, 2016 FINDINGS: Normal talonavicular articulation. Normal calcaneocuboid articulation. Normal navicular-cuneiform articulations. There is mild degenerative arthrosis of the intercuneiform articulation. There is moderate degenerative arthrosis of the first tarsometatarsal articulation. Normal Lisfranc ligament. There is moderate degenerative arthrosis of the second and third tarsometatarsal articulations. Normal cuboid fourth and cuboid fifth tarsometatarsal articulation. There is marrow edema with T2 signal hyperintensity and incomplete healing of fracture of the medial cuneiform, series 5 image 16/. There is cystic change at the base of the first metatarsal. There is moderate heterogeneous marrow edema of the base and shaft of the first metatarsal, series 4 images / through 01/29. There is marrow edema of the base and shaft of the second metatarsal, series 4 image 13/28. There is mild marrow edema at the base and proximal shaft of the third metatarsal, series 4 image 16/28. Arthritic change at the first MTP joint. Normal tibialis anterior tendon. Normal extensor hallucis longus tendon. Normal extensor digitorum longus tendons. Normal peroneus longus tendon and distal insertion. Normal peroneus brevis tendon and distal insertion. Normal intrinsic muscles of the mid and forefoot region. Normal extensor digitorum brevis muscle. Normal subcutis adipose space. MRI/Lower Ext/No Jt/w/o IMPRESSION: There is marrow edema of the first and second and third metatarsals and the medial cuneiform with stress injuries or stress fractures related to posttraumatic arthropathy versus Charcot arthropathy. Electronically Signed: Julio Cannon MD at 21:55 EDT , Service support , CC: Valeriano Munoz MD; Nabeel Danielle DPM Certified Registered Dental Assistant: Signed CBC-COMPLETE BLOOD CNT Collected: 12/09/2017 Status: F Source: [place] NO DIFF 4:[address] [facility] REPOSITORY TYPE CODE TESTS RESULT OUT OF RANGE REFERENCE UNITS LAB L100.1000 4.4-11.0 K/mm3 Normal WBC 8.0 LAB L100.1200 4.2-5.4 M/mm3 Low RBC 4.14 LAB L100.1300 12.0-15.0 g/dl Low HGB 11.1 LAB L100.1400 37-47 % Low HCT 36.5 LAB L100.1500 81-99 fL Normal MCV 88.2 LAB L100.1600 27.0-32.0 pg Low MCH 26.8 LAB L100.1700 32-36 g/gl Low MCHC 30.4 LAB L100.1810 11.6-14.6 % High RDW CV 20.5 LAB L100.1820 35.1-43.9 fl High RDW SD 66.2 LAB L100.1900 150-450 K/mm3 Normal PLT 402 LAB L100.2000 6.2-12.0 fl Normal MPV 9.7 Performed By: #### L100.0500, L100.4500 #### [facility] [address] [place], [place], [id number] DIFFERENTIAL COMMENT Collected: 12/09/2017 Status: F Source: DANNIELLE 4:[address] [facility] REPOSITORY TYPE CODE TESTS RESULT OUT OF RANGE REFERENCE UNITS LAB L100.4500 Normal SMEAR COMMENT SCANNED Result Comment: 1+ ANISOCYTOSIS Performed By: #### L100.0500, L100.4500 #### [facility] [address] [place], [place], [id number] LIVER PROFILE Collected: 12/09/2017 Status: F Source: DANNIELLE 4:[address] [facility] REPOSITORY Order Comment: Comments: VROM TYPE CODE TESTS RESULT OUT OF RANGE REFERENCE UNITS LAB L501.1500 6.4-8.2 g/dL Normal T PROT 7.0 LAB L501.1800 3.2-5.0 g/dL Normal ALB 3.6 LAB L501.1950 2.2-4.2 g/dL Normal GLOB 3.4 LAB L501.4100 15-37 U/L Normal AST 25 LAB L501.4305 45-117 U/L Normal ALK P 46 LAB L501.4405 13-56 U/L Normal ALT 49 LAB L501.4600 0.20-1.00 mg/dL Normal T BILI 0.60 LAB L501.4700 0.00-0.30 mg/dL Normal D BILI 0.14 Performed By: #### L500.3400 #### [facility] [address] [place], [address] THYROID UPTAKE Observed: 11/18/2017 Status: F Source: DAN[place]LE SINGLE OR MULT 10:[address] [facility] REPOSITORY [facility] Imaging Services [address] [place] [address] Thyroid Uptake Single or Mult MR#: [id number] Acct: [id number] Name: ROSA BLACKWOOD Rep #: [id number] : 1960 F 56 From: Asif Pagan DO PCP: Valeriano Munoz MD Status: REG CLI Study: Thyroid Uptake Single or Mult Date of Exam: 11/18/17 Exam# [id number] Ordering Dr: Valeriano Munoz MD CLINICAL: 56-year-old female with reported history of subclinical hyperthyroidism. I-123 THYROID UPTAKE and SCAN COMPARISON: None available FINDINGS: The patient was administered a 295 uCi I-123 capsule by mouth. The 4-hour I-123 radioactive iodine thyroidal uptake was calculated to be 9.8 % (normal 5 to 25 %). The 24-hour I-123 radioactive iodine thyroidal uptake was calculated to be 26.1 % (normal 5 to 40 %). The I-123 thyroid scan demonstrates homogeneous radiopharmaceutical concentration throughout both lobes of a U-shaped thyroid gland. There are no colloidal parenchymal hypofunctioning-cold nodules noted in either lobe of the thyroid gland. NM/Thyroid Uptake Single or Mult IMPRESSION: 1. NORMAL 4- and 24-hour I-123 radioactive iodine thyroidal uptakes. 2. 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 3. No hypofunctioning, cold nodules are identified. Electronically Signed: Asif Pagan DO at 22:10 EDT Tel , Service support , CC: Valeriano Munoz MD Certified Registered Dental Assistant: Signed SPINE CERVICAL Observed: 11/16/2017 Status: F Source: [place] (ROUTINE) 5:[address] [facility] REPOSITORY [facility] Imaging Services [address] [place] [address] Spine Cervical (Routine) MR#: [id number] Acct: [id number] Name: ROSA BLACKWOOD Rep #: [id number] : 1960 F 56 From: Andrew Duran DO PCP: Valeriano Munoz MD Status: REG CLI Study: Spine Cervical (Routine) Date of Exam: 11/16/17 Exam# [id number] Ordering Dr: More Taylor MD STUDY: MRI CERVICAL SPINE WITHOUT CONTRAST REASON FOR EXAM: Female, 56 years old. Neck and arm pain, numbness and tingling to the bilateral arms from 14 years. TECHNIQUE: Standardized fat and water weighted pulse sequences were obtained in the sagittal and axial planes. COMPARISON: None FINDINGS: Normal foramen magnum and brainstem-cervical cord junction. Normal craniovertebral junction. Normal anterior atlantoaxial articulation. Normal odontoid process. Normal cervical lordosis. Normal vertebral bodies and posterior osseous elements. C2-3: Normal endplates. Normal disc height, signal and morphology. Normal central canal and intervertebral neural foramina. C3-4: Disc desiccation and mild decreased disc space is present with bilateral facet arthropathy and uncovertebral joint arthropathy resulting in mild right foraminal [...] joint arthropathy resulting in moderate to severe bilateral foraminal narrowing, clinically correlate for exiting C5/6 nerve root radiculopathy. 2. C6-7 moderate left foraminal narrowing as above. 3. C4-5 mild to moderate bilateral foraminal narrowing. Electronically Signed: Andrew Duran DO at 20:50 EDT , Service support , CC: More Taylor MD; Valeriano Munoz MD Certified Registered Dental Assistant: Signed MR-SPINE CERVICAL Observed: 11/16/2017 Status: F Source: [place] (ROUTINE) IMPORT 12:00 AM [facility] [place] REPOSITORY Images were obtained outside of [facility] [id number] PELVIS 1 OR 2 VIEWS Observed: 11/03/2017 Status: F Source: [place] 3:28 PM [facility] REPOSITORY [facility] Imaging Services [address] [place] [address] Pelvis 1 or 2 Views MR#: [id number] Acct: [id number] Name: ROSA BLACKWOOD Rep #: [id number] : 1960 F 56 From: Vale Godoy MD PCP: Valeriano Munoz MD Status: REG CLI Study: Pelvis 1 or 2 Views Date of Exam: 11/03/17 Exam# [id number] Ordering Dr: Valeriano Munoz MD STUDY: X-RAY - PELVIS REASON FOR EXAM: Female, 56 years old. Pain, fall TECHNIQUE: One view of the pelvis was obtained. COMPARISON: March 18, 2013 pelvis x-ray. FINDINGS: There is a non-specific bowel gas pattern. Normal visualized soft tissue structures. There is narrowing with cortical sclerosis and osteophyte formation of the sacroiliac joint consistent with degenerative osteoarthritic changes. Normal visualized bilateral superior and inferior pubic rami. Normal pubic symphysis. Normal ischial tuberosities. There is visualized degenerative change in the lumbar spine L4-L5 L5-S1 worse prior study. Normal visualized right femoral head. There is osteoarthritic spur formation of the right acetabular rim. Normal right hip joint. Normal visualized left femoral head. There is osteoarthritic spur formation of the left acetabular rim. Normal left hip joint. RAD/Pelvis 1 or 2 Views IMPRESSION: Mild degenerative change. No visualized evidence of an acute fracture. Advanced degenerative changes lower lumbar spine. Electronically Signed: Vale Godoy MD at 17:01 EDT Tel , Service support , CC: Valeriano Munoz MD Certified Registered Dental Assistant: Signed CBC-COMPLETE BLOOD CNT Collected: 10/22/2017 Status: F Source: [place]AN[place]LE NO DIFF 4:[address] [facility] REPOSITORY TYPE CODE TESTS RESULT OUT OF RANGE REFERENCE UNITS LAB L100.1000 4.4-11.0 K/mm3 Normal WBC 8.0 LAB L100.1200 4.2-5.4 M/mm3 Normal RBC 4.36 LAB L100.1300 12.0-15.0 g/dl Low HGB 11.7 LAB L100.1400 37-47 % Normal HCT 37.7 LAB L100.1500 81-99 fL Normal MCV 86.5 LAB L100.1600 27.0-32.0 pg Low MCH 26.8 LAB L100.1700 32-36 g/gl Low MCHC 31.0 LAB L100.1810 11.6-14.6 % High RDW CV 17.1 LAB L100.1820 35.1-43.9 fl High RDW SD 53.2 LAB L100.1900 150-450 K/mm3 Normal PLT 441 LAB L100.2000 6.2-12.0 fl Normal MPV 10.2 Performed By: #### L100.0500 #### [facility] [address] [place], [place], [id number] LIVER PROFILE Collected: 10/22/2017 Status: F Source: [place] 4:[address] [facility] REPOSITORY TYPE CODE TESTS RESULT OUT OF RANGE REFERENCE UNITS LAB L501.1500 6.4-8.2 g/dL Normal T PROT 7.6 LAB L501.1800 3.2-5.0 g/dL Normal ALB 4.0 LAB L501.1950 2.2-4.2 g/dL Normal GLOB 3.6 LAB L501.4100 15-37 U/L Normal AST 30 LAB L501.4305 45-117 U/L Low ALK P 42 LAB L501.4405 13-56 U/L Normal ALT 50 LAB L501.4600 0.20-1.00 mg/dL Normal T BILI 0.80 LAB L501.4700 0.00-0.30 mg/dL Normal D BILI 0.14 Performed By: #### L500.3400 #### [facility] [address] [place] [address], [id number] LIVER PROFILE Collected: 09/10/2017 Status: F Source: [place] 4:[address] [facility] REPOSITORY TYPE CODE TESTS RESULT OUT OF RANGE REFERENCE UNITS LAB L501.1500 6.4-8.2 g/dL Normal T PROT 7.3 LAB L501.1800 3.2-5.0 g/dL Normal ALB 3.9 LAB L501.1950 2.2-4.2 g/dL Normal GLOB 3.4 LAB L501.4100 15-37 U/L Normal AST 22 LAB L501.4305 45-117 U/L Normal ALK P 58 LAB L501.4405 13-56 U/L Normal ALT 49 LAB L501.4600 0.20-1.00 mg/dL Normal T BILI 0.40 LAB L501.4700 0.00-0.30 mg/dL Normal D BILI 0.09 Performed By: #### L500.3400 #### [facility] [place], [address] CBC-COMPLETE BLOOD CNT Collected: 09/10/2017 Status: F Source: DANNIELLE NO DIFF 4:[address] [facility] REPOSITORY TYPE CODE TESTS RESULT OUT OF RANGE REFERENCE UNITS LAB L100.1000 4.4-11.0 K/mm3 Normal WBC 7.3 LAB L100.1200 4.2-5.4 M/mm3 Normal RBC 4.24 LAB L100.1300 12.0-15.0 g/dl Low HGB 11.4 LAB L100.1400 37-47 % Normal HCT 37.8 LAB L100.1500 81-99 fL Normal MCV 89.2 LAB L100.1600 27.0-32.0 pg Low MCH 26.9 LAB L100.1700 32-36 g/gl Low MCHC 30.2 LAB L100.1810 11.6-14.6 % High RDW CV 15.3 LAB L100.1820 35.1-43.9 fl High RDW SD 49.3 LAB L100.1900 150-450 K/mm3 Normal PLT 427 LAB L100.2000 6.2-12.0 fl Normal MPV 10.3 Performed By: #### L100.0500 #### [facility] [address] [place], [address] ORB SELLA POST Observed: 08/27/2017 Status: F Source: DANNIELLE FOSSA EAR W/O 3:[address] [facility] REPOSITORY [facility] Imaging Services [address] [place] [address] Orb Sella Post Fossa Ear w/o MR#: [id number] Acct: [id number] Name: ROSA BLACKWOOD Rep #: [id number] : 1960 F 56 From: Nir Dudley MD PCP: Valeriano Munoz MD Status: REG CLI Study: Orb Sella Post Fossa Ear w/o Date of Exam: 08/27/17 Exam# [id number] Ordering Dr: Dale Zuniga MD STUDY: CT TEMPORAL BONES WITHOUT CONTRAST REASON FOR EXAM: Female, 56 years old. HEARING LOSS LEFT SIDE RADIATION DOSAGE (If Supplied By Facility): CTDIvol = ( 82.28 ) mGy, DLP = ( 847.92 ) mGycm TECHNIQUE: The patient was scanned in a multi detector CT scanner. High resolution transaxial imaging was performed without the administration of intravenous contrast material. Sagittal and coronal images were reconstructed. Individualized dose optimization techniques were used for this CT. COMPARISON: None. FINDINGS: RIGHT TEMPORAL BONE Normal right external auditory canal. Normal malleus, incus and stapedius. Normal malleoincudal and incudostapedial articulations. Normal epitympanum, mesotympanum, and hypotympanum. Normal right posterior, superior and lateral semicircular canals. Normal right vestibule and cochlea. Normal tympanic segment of the facial nerve. Normal Korner's septum, tegmen tympani, arcuate eminence and aditus ad antrum. Normal right mastoid air cells. Normal right petrous apex. Normal right petrous carotid artery. Normal right jugular fossa. Normal right internal auditory canal. Normal right vestibular and cochlear aqueducts. LEFT TEMPORAL BONE Normal left external auditory canal. Normal malleus, incus and stapedius. Normal malleoincudal and incudostapedial articulations. Normal epitympanum, mesotympanum, and hypotympanum. Normal left posterior, superior and lateral semicircular canals. Normal left vestibule and cochlea. Normal tympanic segment of the facial nerve. Normal Korner's septum, tegmen tympani, arcuate eminence and aditus ad antrum. Normal left mastoid air cells. Normal left petrous apex. Normal left petrous carotid artery. Normal left jugular fossa. Normal left internal auditory canal. Normal left vestibular and cochlear aqueducts. CT/Orb Sella Post Fossa Ear w/o IMPRESSION: Normal CT examination of the bilateral temporal bones. Electronically Signed: Nir Dudley MD at 22:42 EDT , Service support , CC: Beni Zuniga MD; Valeriano Munoz MD Certified Registered Dental Assistant: Signed ESTRADIOL Collected: 08/26/2017 Status: F Source: DANNIELLE 12:[address] [facility] REPOSITORY TYPE CODE TESTS RESULT OUT OF RANGE REFERENCE UNITS LAB L3300.1750 pg/mL Normal ESTRADIOL < 11.0 Result Comment: NORMAL REFERENCE RANGES FEMALE FOLLICULAR 21.4 - 164.8 pg/mL MID-CYCLE PEAK 49.9 - 367.2 pg/mL LUTEAL 40.2 - 259.0 pg/mL POST-MENOPAUSAL ON MHT <11.0 - 462.1 pg/mL NOT ON MHT <11.0 - 58.3 pg/mL MALE <11.0 - 52.5 pg/mL NOTE: [facility] HAS CONFIRMED THE DRUG FULVETRANT (FASLODEX) MAY CAUSE FALSELY ELEVATED ESTRADIOL RESULTS WHEN USING THIS TEST METHOD. IF PATIENT IS TAKING FULVESTRANT AN ALTERNATIVE METHOD SHOULD BE USED TO DETERMINE ESTRADIOL CONCENTRATION. Performed By: #### L3300.1750 #### [facility] [address] [place], [place], [id number] PROGESTERONE LEVEL Collected: 08/26/2017 Status: F Source: DANNIELLE 12:[address] [facility] REPOSITORY TYPE CODE TESTS RESULT OUT OF REFERENCE UNITS RANGE LAB L509.4001 See Comment ng/mL Progesterone Normal 0.47 Result Comment: Progesterone Reference Table: UNITS Female: Follicular 0.15 - 1.40 ng/mL Luteal 3.34 - 25.56 ng/mL Mid-luteal 4.44 - 28.03 ng/mL Postmenopausal 0.0 - 0.73 ng/mL : 1st Trimester 11.22 - 90.00 ng/mL 2nd Trimester 25.55 - 89.40 ng/mL 3rd Trimester 48.40 -422.50 ng/mL Performed By: #### L509.4001 #### [facility] [address] [place], [place], [address] PAP I-G W/RFX HRHPV Collected: 08/26/2017 Status: F Source: DANNIELLE 11:[address] [facility] REPOSITORY Order Comment: CYTOLOGY INFORMATION: - CLINICAL INFORMATION: - DATE LMP/MENOPAUSE: MENOPAUSE - COLLECTION VIAL: Thin Prep Vial - INCREMENT MANAGER SOURCE: CERVICAL/ENDOCERVICAL - COLLECTION TECHNIQUE: BRUSH/SPATULA Specimen Comment: [id number] Specimen Comment: No. of containers..01 ThinPrep Vial TYPE CODE TESTS RESULT OUT OF RANGE REFERENCE UNITS LAB L7400.0800 . Normal DIAGN Comment Result Comment: NEGATIVE FOR INTRAEPITHELIAL LESION AND MALIGNANCY. LAB L7400.0900 . Normal ADEQ Comment Result Comment: Satisfactory for evaluation. No endocervical component is identified. LAB L7400.1400 . Normal PERFORM Comment Result Comment: Ning Perez, Duty Officer LAB L7400.2575 . Normal TEST METHOD Comment Result Comment: This liquid based ThinPrep(R) pap test was screened with the use of an image guided system. LAB L7400.2600 . Normal . COMM LAB L7400.2700 . Normal PAPSMR Comment Result Comment: The Pap smear is a screening test designed to aid in the detection of premalignant and malignant conditions of the uterine cervix. It is not a diagnostic procedure and should not be used as the sole means of detecting cervical cancer. Both false-positive and false-negative reports do occur. LAB L7400.2800 . Normal HPV RFLX Comment Result Comment: The HPV DNA reflex criteria were not met with this specimen result therefore, no HPV testing was performed. Performed at: [address] [id number] Flight Engineer Helicopter: Selene Munoz MD, Phone: [phone] Performed By: #### L7400.0350 #### [facility] (refer to report for specific site) refer to report for address and phone number LIVER PROFILE Collected: 08/12/2017 Status: F Source: DANNIELLE 3:[address] [facility] REPOSITORY TYPE CODE TESTS RESULT OUT OF RANGE REFERENCE UNITS LAB L501.1500 6.4-8.2 g/dL Normal T PROT 7.3 LAB L501.1800 3.2-5.0 g/dL Normal ALB 4.0 LAB L501.1950 2.2-4.2 g/dL Normal GLOB 3.3 LAB L501.4100 15-37 U/L Normal AST 22 LAB L501.4305 45-117 U/L Normal ALK P 53 LAB L501.4405 13-56 U/L Normal ALT 49 Result Comment: Please note revised ALT reference range effective 2017. LAB L501.4600 0.20-1.00 mg/dL Normal T BILI 0.40 LAB L501.4700 0.00-0.30 mg/dL Normal D BILI 0.07 Performed By: #### L500.3400 #### [facility] [address] [facility] [place], [place], [address] ERYTHROCYTE SED RATE Collected: 08/10/2017 Status: F Source: DANNIELLE 1:[address] [facility] REPOSITORY TYPE CODE TESTS RESULT OUT OF RANGE REFERENCE UNITS LAB L102.0000 0-30 mm/hr Normal SED RATE 15 Performed By: #### L101.9900, L100.0500 #### [facility] [address] [facility] [place], [place], [id number] CBC-COMPLETE BLOOD CNT Collected: 08/10/2017 Status: F Source: DANNIELLE NO DIFF 1:[address] [facility] REPOSITORY TYPE CODE TESTS RESULT OUT OF RANGE REFERENCE UNITS LAB L100.1000 4.4-11.0 K/mm3 Normal WBC 9.1 LAB L100.1200 4.2-5.4 M/mm3 Normal RBC 4.49 LAB L100.1300 12.0-15.0 g/dl Normal HGB 12.3 LAB L100.1400 37-47 % Normal HCT 39.6 LAB L100.1500 81-99 fL Normal MCV 88.2 LAB L100.1600 27.0-32.0 pg Normal MCH 27.4 LAB L100.1700 32-36 g/gl Low MCHC 31.1 LAB L100.1810 11.6-14.6 % High RDW CV 16.0 LAB L100.1820 35.1-43.9 fl High RDW SD 51.5 LAB L100.1900 150-450 K/mm3 High PLT 472 LAB L100.2000 6.2-12.0 fl Normal MPV 10.4 Performed By: #### L101.9900, L100.0500 #### [facility] [address] [facility] [place], [place], [id number] CBC-COMPLETE BLOOD CNT Collected: 07/31/2017 Status: F Source: DANNIELLE NO DIFF 1:[address] [facility] REPOSITORY TYPE CODE TESTS RESULT OUT OF RANGE REFERENCE UNITS LAB L100.1000 4.4-11.0 K/mm3 Normal WBC 7.6 LAB L100.1200 4.2-5.4 M/mm3 Normal RBC 4.34 LAB L100.1300 12.0-15.0 g/dl Normal HGB 12.1 LAB L100.1400 37-47 % Normal HCT 38.4 LAB L100.1500 81-99 fL Normal MCV 88.5 LAB L100.1600 27.0-32.0 pg Normal MCH 27.9 LAB L100.1700 32-36 g/gl Low MCHC 31.5 LAB L100.1810 11.6-14.6 % High RDW CV 16.5 LAB L100.1820 35.1-43.9 fl High RDW SD 52.4 LAB L100.1900 150-450 K/mm3 Normal PLT 366 LAB L100.2000 6.2-12.0 fl Normal MPV 10.4 Performed By: #### L100.0500 #### [facility] [address] [place] [address]. [place], [place], [id number] LIVER PROFILE Collected: 07/31/2017 Status: F Source: DANNIELLE 1:[address] [facility] REPOSITORY Order Comment: Comments: VROM TYPE CODE TESTS RESULT OUT OF RANGE REFERENCE UNITS LAB L501.1500 6.4-8.2 g/dL Normal T PROT 6.9 LAB L501.1800 3.2-5.0 g/dL Normal ALB 3.7 LAB L501.1950 2.2-4.2 g/dL Normal GLOB 3.2 LAB L501.4100 15-37 U/L Normal AST 31 LAB L501.4305 45-117 U/L Normal ALK P 53 LAB L501.4405 13-56 U/L Normal ALT 38 Result Comment: Please note revised ALT reference range effective 2017. LAB L501.4600 0.20-1.00 mg/dL Normal T BILI 0.60 LAB L501.4700 0.00-0.30 mg/dL Normal D BILI 0.12 Performed By: #### L500.3400 #### [facility] [address] [facility] [place], [place], [id number] CBC-COMPLETE BLOOD CNT Collected: 07/16/2017 Status: F Source: DANNIELLE NO DIFF 1:[address] [facility] REPOSITORY TYPE CODE TESTS RESULT OUT OF RANGE REFERENCE UNITS LAB L100.1000 4.4-11.0 K/mm3 High WBC 11.5 LAB L100.1200 4.2-5.4 M/mm3 Normal RBC 4.72 LAB L100.1300 12.0-15.0 g/dl Normal HGB 12.9 LAB L100.1400 37-47 % Normal HCT 41.9 LAB L100.1500 81-99 fL Normal MCV 88.8 LAB L100.1600 27.0-32.0 pg Normal MCH 27.3 LAB L100.1700 32-36 g/gl Low MCHC 30.8 LAB L100.1810 11.6-14.6 % High RDW CV 16.8 LAB L100.1820 35.1-43.9 fl High RDW SD 54.0 LAB L100.1900 150-450 K/mm3 Normal PLT 351 LAB L100.2000 6.2-12.0 fl Normal MPV 10.7 Performed By: #### L100.0500 #### [facility] [address] [place], [place], [id number] LIVER PROFILE Collected: 07/16/2017 Status: F Source: DANNIELLE 1:[address] [facility] REPOSITORY TYPE CODE TESTS RESULT OUT OF RANGE REFERENCE UNITS LAB L501.1500 6.4-8.2 g/dL Normal T PROT 7.5 LAB L501.1800 3.2-5.0 g/dL Normal ALB 3.8 LAB L501.1950 2.2-4.2 g/dL Normal GLOB 3.7 LAB L501.4100 15-37 U/L Normal AST 15 LAB L501.4305 45-117 U/L Normal ALK P 59 LAB L501.4405 13-56 U/L Normal ALT 33 Result Comment: Please note revised ALT reference range effective 2017. LAB L501.4600 0.20-1.00 mg/dL Normal T BILI 0.60 LAB L501.4700 0.00-0.30 mg/dL Normal D BILI 0.09 Performed By: #### L500.3400 #### [facility] [address] [place], [place], [id number] CBC-COMPLETE BLOOD CNT Collected: 05/25/2017 Status: F Source: DANNIELLE NO DIFF 1:[address] [facility] REPOSITORY TYPE CODE TESTS RESULT OUT OF RANGE REFERENCE UNITS LAB L100.1000 4.4-11.0 K/mm3 Normal WBC 9.5 LAB L100.1200 4.2-5.4 M/mm3 Normal RBC 4.77 LAB L100.1300 12.0-15.0 g/dl Normal HGB 13.0 LAB L100.1400 37-47 % Normal HCT 43.2 LAB L100.1500 81-99 fL Normal MCV 90.6 LAB L100.1600 27.0-32.0 pg Normal MCH 27.3 LAB L100.1700 32-36 g/gl Low MCHC 30.1 LAB L100.1810 11.6-14.6 % High RDW CV 16.1 LAB L100.1820 35.1-43.9 fl High RDW SD 52.5 LAB L100.1900 150-450 K/mm3 Normal PLT 307 LAB L100.2000 6.2-12.0 fl Normal MPV 11.1 Performed By: #### L100.0500 #### [facility] [address] [place], [place], [address] LIVER PROFILE Collected: 05/25/2017 Status: F Source: DANNIELLE 1:[address] [facility] REPOSITORY TYPE CODE TESTS RESULT OUT OF RANGE REFERENCE UNITS LAB L501.1500 6.4-8.2 g/dL Normal T PROT 7.5 LAB L501.1800 3.4-5.0 g/dL Normal ALB 3.9 Result Comment: Please note revised Albumin AND Globulin reference range effective 2017. LAB L501.1950 2.2-4.2 g/dL Normal GLOB 3.6 LAB L501.4100 15-37 U/L Low AST 12 LAB L501.4305 45-117 U/L Normal ALK P 51 LAB L501.4405 12-78 U/L Normal ALT 29 LAB L501.4600 0.20-1.00 mg/dL Normal T BILI 0.40 LAB L501.4700 0.00-0.30 mg/dL Normal D BILI 0.10 Performed By: #### L500.3400 #### [facility] [address] [place], [address] CHEST PA AND LATERAL Observed: 05/25/2017 Status: F Source: [place] 1:[address] [facility] REPOSITORY [facility] Imaging Services [address] [place] [address] Chest PA and Lateral MR#: [id number] Acct: [id number] Name: ROSA BLACKWOOD Rep #: [id number] : 1960 F 56 From: Aguilar Joaquin MD PCP: Valeriano Munoz MD Status: REG RCR Study: Chest PA and Lateral Date of Exam: 05/25/17 Exam# [id number] Ordering Dr: Pelon Chatterjee MD STUDY: X-RAY CHEST REASON FOR EXAM: Female, 56 years old. Cryptogenic organizing pneumonia. TECHNIQUE: PA and lateral views of the chest. COMPARISON: Comparison is made with prior study dated May 15, 2017. FINDINGS: The lungs are clear and expanded. Scattered calcified granulomas. There is no demonstrated pleural abnormality. Normal size heart. Calcified bilateral hilar lymph nodes. Normal visualized pulmonary arteries. Normal visualized aortic arch and descending thoracic aorta. There are diffuse degenerative changes of the visualized thoracic spine. Normal visualized ribs, clavicles, and shoulders. There is no demonstrated abnormality of the visualized soft tissue structures of the upper abdomen. RAD/Chest PA and Lateral IMPRESSION: No acute abnormality is seen. Electronically Signed: Aguilar Joaquin MD at 19:35 EST Tel [phone], Service support , CC: Valeriano Munoz MD; Pelon Chatterjee MD Certified Registered Dental Assistant: Signed CHEST PA AND LATERAL Observed: 05/15/2017 Status: F Source: DANNIELLE 12:47 PM [facility] REPOSITORY [facility] Imaging Services [address] [place] [address] Chest PA and Lateral MR#: [id number] Acct: [id number] Name: ROSA BLACKWOOD Rep #: [id number] : 1960 F 56 From: Patrice Pinto MD PCP: Valeriano Munoz MD Status: REG CLI Study: Chest PA and Lateral Date of Exam: 05/15/17 Exam# [id number] Ordering Dr: Valeriano Munoz MD STUDY: X-RAY CHEST REASON FOR EXAM: Female, 56 years old. COPD. TECHNIQUE: Frontal and lateral views of the chest COMPARISON: 01/21/2017 FINDINGS: The lungs are clear. There are no pleural effusions. There is no pneumothorax. The heart is normal in size. The visualized osseous structures are within normal limits. RAD/Chest PA and Lateral IMPRESSION: No acute thoracic pathology. Electronically Signed: Patrice iPnto, at 16:42 EST Tel , Service support , CC: Valeriano Munoz MD Certified Registered Dental Assistant: Signed ALLERGIES ALLERGIES DATE TYPE / CODE NAME / CODE REACTION SEVERITY SOURCE 04/04/2018 Drug clindamycin/M921373 made me Unknown [place] Allergy/416 794(RXNORM) deathly sick Community 579519([facility] ED CT) Repository 04/04/2018 Drug clarithromycin/F006 Nausea/Vom/Pebbles Unknown [place] Allergy/416 764275(RXNORM) rrhea Community 955965([facility] ED CT) Repository 07/01/2015 DRUG CIPROFLOXACIN DIARRHEA [facility] INGREDI/[address] [place] 561439([facility] Repository ED CT) 07/01/2015 DRUG CLINDAMYCIN DIARRHEA [facility] INGREDI/[address] [place] 769210(SNOM Repository ED CT) 08/18/2006 DRUG AMPICILLIN UNKNOWN [facility] INGREDI/[address] [place] 613485(SNOM Repository ED CT) 08/18/2006 DRUG AMPICILLIN [facility] INGREDI/[address] [place] 670725(SNOM Repository ED CT) NG/46718921 AMPICILLIN [facility] 6(SNOM[facility]) Repository NG/59493506 CIPROFLOXACIN [facility] 6([facility]OM[facility]) Repository NG/46360517 CLINDAMYCIN [facility] 6(SNOMED [facility] CT) Repository ENCOUNTERS ENCOUNTERS ADMIT/DISCHARGE ACCOUNT NUMBER ADMITTING ENCOUNTER LOCATION SOURCE CLASS 04/12/2018/04/12/20 [id number] Ambulatory [address] Main [place] Repository 04/04/2018/04/04/20 [id number] Emergency [address] ding:ED Repository 03/30/2018 [id number] Ambulatory Building:[facility] Practices Repository 03/18/2018/03/18/20 [id number] Ambulatory [address] Main [place] Repository 03/16/2018/03/18/[id number] Main [place] Repository 03/12/2018/03/12/20 [id number] Ambulatory [address] Main [place] Repository 03/12/2018/03/12/20 [id number] Ambulatory [address] Main [place] Repository 03/12/2018/03/12/20 [id number] Ambulatory [address] Main [place] Repository 03/12/2018/03/15/20 [id number] Ambulatory [address] Main [place] Repository 03/12/2018/03/12/20 [id number] Ambulatory [address] Main [place] Repository 03/08/2018/03/08/20 [id number] Ambulatory [address] Main [place] Repository 03/08/2018/03/08/20 [id number] Ambulatory [address] Main [place] Repository 03/08/2018/03/09/20 [id number] Ambulatory [address] Main [place] Repository 02/19/2018 [id number] Ambulatory [facility] ding:LABSPEC Repository 02/10/2018 [id number] Ambulatory [facility] ding:MRI Repository 02/08/2018/02/09/20 [id number] Ambulatory [address] Other [place] Repository 02/08/2018/02/09/20 [id number] Ambulatory [address] MEDICAL Repository CENTERBuildi ng:AGGHBC 01/28/2018 [id number] [facility] Rep[facility] 01/26/2018/01/27/20 [id number] Ambulatory [address] Main [place] Repository 01/26/2018/02/09/20 [id number] Ambulatory [address] Main [place] Repository 01/19/2018/01/20/20 [id number] Emergency [place] ding:ED Repository 12/28/2017 [id number] Ambulatory [facility] MEDICAL Repository CENTERBuildi ng:AGGHBC 12/10/2017 [id number] [facility] Repository 12/09/2017 [id number] [facility] [place] [facility] ding:MTLAB Repository 11/18/2017 [id number] [facility] [place] [facility] ding[facility]NM Repository 11/16/2017 [id number] [facility]MRI Repository 11/03/2017 [id number] [facility] Repository 10/22/2017 [id number] [facility] ding:MTLAB Repository 09/10/2017 [id number] [facility] ding:MTLAB Repository 08/27/2017 [id number] [facility]CT Repository 08/26/2017 [id number] [facility] ding:LABSPEC Repository 08/12/2017 [id number] [facility] ding:MTLAB Repository 08/10/2017 [id number] [facility] ding:LAB.FUT Repository URE 08/03/2017 [id number] [facility] [place] [facility] ding:MTLAB Repository 07/31/2017/08/01/19 [id number] Ambulatory [place] ding:MTLAB Repository 05/25/2017/05/25/19 [id number] Ambulatory [place] ding:MTLAB Repository 05/15/2017 [id number] [facility] Repository PAYERS PAYERS ENCOUNTER GUARANTOR PAYER SUBSCRIBER SOURCE 04/04/2018 SAGRARIO [id number] Primary SAGRARIO Young SIMODOB: [place] E [place] Insurance:AULTCAREPol [id number] [facility] icy Number: [place], [place] [id number] Repository [address]Fcl: (573) Date:4333-70-30RL [phone] () [address], [place] [address]YF: 04/04/2018 Secondary ROSA Spicer Insurance:MEDICARE SIMODOB: [facility] PART A [facility] [id number] Hospital Number: Repository [id number] Date:2018-04-04 04/04/2018 Tertiary NOT GIVENUNK [place] Insurance:SELF PAY [facility] Number: Effective Repository Date:2018-04-04 03/30/2018 ROSA L Primary Sagrario SimoDOB: [place]IP Practices SIMODOB: Insurance:AultcarePol [id number] Repository icy Number: [address] [place] [address] [id number] Date:3594-27-09WjgwSouth [place], [place] Name:[place], [place] [address]Gnb: (720) [address], [place] [address]Fhv: [id number]: (hp) (HP) [phone] (WP) 03/30/2018 Secondary Sagrario SimoDOB: [place]IP Practices Insurance:AultcarePol [id number] Repository icy Number: [facility] [id number] [place] Date:2003-08-03 [place] 4769-93-33Iwxg[place], [place] Name:[address] [address]Qxm: (171) [address], [place] [phone] (HP) [id number]: 02/19/2018 SAGRARIO Young [id number] Primary SAGRARIO R SIMODOB: [place] Insurance:AULTCAREPol [id number] [facility]den [facility] icy Number: [place], [place] [id number] Repository [address]Esr: (330) Date:3863-35-86GO [phone] (HP) [address], [place] [address]EY: 02/19/2018 Secondary NOT GIVENUNK [place] Insurance:SELF PAY [facility] Number: Effective Repository Date:2018-02-19 02/10/2018 SAGRARIO [id number] Primary SAGRARIO R SIMODOB: [place] E [place] Insurance:LTCAREPol [id number] Ogden Medical Center icy Number: [place], [place] [id number] Repository [address]Qbo: (330) Date:6378-09-64IN [phone] (HP) [address] [address]GY: 02/10/2018 Secondary NOT GIVENUNK [place] Insurance:SELF PAY [facility] Number: Effective Repository Date:2018-01-26 02/08/2018 ROSA Sequeira Primary SAGRARIO R SIMODOB: [facility] SIMODOB: Insurance:[facility] [id number] [facility] [id number] E icy Number: Repository [place] [id number] [facility], Date: [place] [address]Etm: (HP) 01/28/2018 SAGRARIO Young [id number] Primary SAGRARIO R SIMODOB: [place] E [place] Insurance:AULTCAREPol [id number] Ogden Medical Center icy Number: [place], [place] [id number] Repository [address]Yju: 330) Date:1720-64-33OS [phone] (HP) [address], [place] [address]RD: 01/28/2018 Secondary NOT GIVENUNK [place] Insurance:SELF PAY [facility] Number: Effective Repository Date:2017-10-26 01/19/2018 SAGRARIO [id number] Primary SAGRARIO Young SIMODOB: [place] Insurance:AULTCAREPol [id number] Ogden Medical Center icy Number: [place] [id number] Repository [address]Kil: (330) Date:8714-37-05DC [phone] (HP) [address], [place] [address]CO: 01/19/2018 Secondary NOT GIVENUNK [place] Insurance:SELF PAY Community [facility] Number: Effective Repository Date:2018-01-19 12/28/2017 ROSA Sequeira Primary SAGRARIO Young SIMODOB: [facility] SIMODOB: Insurance:[facility]AREEn[facility] [id number] of [facility] Health [id number] E icy Number: Repository [facility] [id number] [place], [place] Date: [address]Vtg: (HP) 12/10/2017 SAGRARIO [id number] Primary SAGRARIO R SIMODOB: [place] E [place] Insurance:AULTCAREPol [id number] Ogden Medical Center ic Number: [place], [place] [id number] Repository [address]Mfp: (330) Date:8235-50-59EW [phone] (HP) [address], [place] [address]TI: 12/10/2017 Secondary NOT GIVENUNK [place] Insurance:SELF PAY [facility] Number: Effective Repository Date:2017-12-02 12/09/2017 Sagrario [id number] Primary Sagrario R SimoDOB: [place] Insurance:AULTCAREPol [id number] Hospital icy Number: [place], [place] [id number] Repository [address]Ncs: 330) Date:0967-18-92NJ [phone] (HP) [address], [place] [address]JX: 12/09/2017 Secondary NOT GIVENUNK [place] Insurance:SELF PAY Community [facility] Number: Effective Repository Date:2017-12-09 11/18/2017 Sagrario [id number] Primary Sagrario Young SimoDOB: [place] Insurance:AULTCAREPol [id number] [facility] Number: [place], [place] [id number] Repository [address]Mmi: (330) Date:2636-52-25YN [phone] (HP) [address], [place] [address]LK: 11/18/2017 Secondary NOT GIVENUNK [place] Insurance:SELF PAY [facility] Number: Effective Repository Date:2017-11-16 11/16/2017 Sagrario [id number] Primary Sagrario Young SimoDOB: [place] Insurance:AULTCAREPol [id number] [facility] Number: [place] [id number] Repository [address]Hif: (330) Date:6527-18-84QO [phone] () [address], [place] [address]PP: 11/16/2017 Secondary NOT GIVENUNK [place] Insurance:SELF PAY [facility] Number: Effective Repository Date:2017-11-10 11/03/2017 Sagrario [id number] Primary Sagrario Young SimoDOB: [place] Insurance:AULTCAREPol [id number] [facility] Number: [place], [place] [id number] Repository [address]Ndl: (330) Date:5201-05-32WH [phone] (HP) [address] [address]OZ: 11/03/2017 Secondary NOT GIVENUNK [place] Insurance:SELF PAY [facility] Number: Effective Repository Date:2017-11-03 10/22/2017 Sagrario [id number] Primary Sagrario R SimoDOB: [place] Insurance:AULTCAREPol [id number] Hospital icy Number: [facility] [id number] Repository [address]Ecm: (330) Date:5810-29-94KG [phone] (HP) [address], [place] [address]PM: 10/22/2017 Secondary NOT GIVENUNK [place] Insurance:SELF PAY [facility] Number: Effective Repository Date:2017-10-22 09/10/2017 Sagrario [id number] Primary Sagrario R SimoDOB: [place] Insurance:AULTCAREPol [id number] Hospital icy Number: [facility] [id number] Repository [address]Ocg: (330) Date:5171-64-61XP [phone] (HP) [address], [place] [address]KH: 09/10/2017 Secondary NOT GIVENUNK [place] Insurance:SELF PAY Community [facility] Number: Effective Repository Date:2017-09-10 08/27/2017 Sagrario [id number] Primary Sagrario R SimoDOB: [place] Insurance:AULTCAREPol [id number] [facility] icy Number: [facility] [id number] Repository [address]Aud: (330) Date:8960-13-01LM [phone] () [address], [place] [address]OV: 08/27/2017 Secondary NOT GIVENUNK [place] Insurance:SELF PAY [facility] Number: Effective Repository Date:2017-08-19 08/26/2017 Sagrario [id number] Primary Sagrario R SimoDOB: [place] Insurance:AULTCAREPol [id number] [facility] Number: [facility] [id number] Repository [address]Hyk: (330) Date:6870-25-67XJ [phone] (HP) [address], [place] [address]KY: 08/26/2017 Secondary NOT GIVENUNK [place] Insurance:SELF PAY Community [facility] Number: Effective Repository Date:2017-08-26 08/12/2017 Sagrario Hector [id number] Primary Sagrario Young SimoDOB: [place] Insurance:AULTCAREPol [id number] [facility] ic Number: [facility] [id number] Repository [address]Aec: (330) Date:3751-44-80BU [phone] (HP) [address], [place] [address]FO: 08/12/2017 Secondary NOT GIVENUNK [place] Insurance:SELF PAY [facility] Number: Effective Repository Date:2017-08-12 08/10/2017 Sagrario Hector [id number] Primary Sagrario Young SimoDOB: [place] Insurance:AULTCAREPol [id number] [facility] Number: [place] [id number] Repository [address]Pvf: (330) Date:9662-22-83OF [phone] () [address] [address]WP: 08/10/2017 Secondary NOT GIVENUNK [place] Insurance:SELF PAY [facility] Number: Effective Repository Date:2017-03-31 08/03/2017 Sagrario Young [id number] Primary Sagrario Young SimoDOB: [place] E [place] Insurance:AULTCAREPol [id number] Memorial Hospital Number: [place], [place] [id number] Repository [address]Zys: (330) Date:2354-70-72NP [phone] (HP) [address], [place] [address]FJ: 08/03/2017 Secondary NOT GIVENUNK [place] Insurance:SELF PAY [facility] Number: Effective Repository Date:2017-08-03 07/31/2017 Sagrario [id number] Primary Sagrario Young SimoDOB: [place] Insurance:AULTCAREPol [id number] [facility] Number: [place] [id number] Repository [address]Rvx: (330) Date:5364-78-20AC [phone] (HP) [address] [address]CC: 07/31/2017 Secondary NOT GIVENUNK [place] Insurance:SELF PAY [facility] Number: Effective Repository Date:2017-07-16 05/25/2017 Sagrario [id number] Primary Sagrario Young SimoDOB: [place] Insurance:AULTCAREPol [id number] [facility] Number: [place] [id number] Repository [address]Oep: 330) Date:3954-77-66YT [phone] () [address] [address]HB: 05/25/2017 Secondary NOT GIVENUNK D[place] Insurance:SELF PAY [facility] Number: Effective Repository Date:2017-04-05 05/15/2017 Sagrario Hector [id number] Primary Sagrario Young SimoDOB: [place] Insurance:AULTCAREPol [id number] [facility] Number: [place], [place] [id number] Repository [address]Eaa: (330) Date:9329-81-00XJ [phone] () [address], [place] [address]GQ: 05/15/2017 Secondary NOT GIVENUNK [place] Insurance:SELF PAY [facility] Number: Effective Repository Date:2017-05-15
== END 2018-04-04 21:17 | disposition home or self-care (01) ==
PROVIDERS: Emergency Provider Emergency Medicine; Family Provider Internal Medicine; PCP Internal Medicine
DX: M24.352 Pathological dislocation of left hip, not elsewhere classified (principal); M06.9 Rheumatoid arthritis, unspecified; M79.7 Fibromyalgia
CPT/HCPCS: 27256; 73502; 94770; 99152; 99153; 99285

== ENCOUNTER → 2018-05-25 16:26 | Outpatient (CLI) | payer MEDICARE, SELFPAY ==
[2018-04-04 18:57] VITALS: BMI 32.7
[2018-05-25 17:35] LABS: Amphetamine Urine VISTA NEGATIVE (<1000 ng/mL); Barbiturate Urine VISTA NEGATIVE (< 200 ng/mL); Benzodiazepine Urine VISTA NEGATIVE (< 200 ng/mL); Cocaine Urine VISTA NEGATIVE (< 300 ng/mL); Ecstacy Urine VISTA POSITIVE (< 500 ng/mL); Methadone Urine VISTA NEGATIVE (< 300 ng/mL); PCP Urine VISTA NEGATIVE (< 25 ng/mL); THC Urine VISTA NEGATIVE (< 50 ng/mL); Vista UDS pH Range 7
--- OUTSIDE RECORDS SUMMARY | 2018-07-27 22:41 | XMS RPT_ITS | Continuity of Care Document ---
:1960 Author Organization [facility] Address [address] [place] [address] Phone Care Team Providers Name Role Phone [...] going to see spine surgeon/functional medicine at [facility] Dr Martínez 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 Deliveries [...] se this would be the cause. [facility] -18 ? aspiration ? imipramine Status: [...] MD, Shasha Whitten Start : 02-Apr-2018 Active Comments:-42-03 called to Dannielle OARRS reviewed AmLODIPine Besylate [...] 0 days Quantity: 30 {Capsule} Refills: 6 Ordered:20-Apr-2018 Shasha Barker MD, MD, Dana M Start : 20-Apr-2018 Active Fosamax 70 MG Oral Tablet once [...] 0 days Quantity: 60 {Capsule} Refills: 4 Ordered:03-May-2018 Shasha Barker MD, MD, Dana M Start : 03-May-2018 Active Comments:take 30 minutes before meals PredniSONE [...] End : 14-Jul-2017 Inactive Comments: d/c per [facility] had fatgiue and GI upset CIPRO, 500MG [...] Start : 29-Jan-2010 End : 08-Feb-2010 Inactive Mcrae Helena 7.5-325 MG Oral Tablet 1 (one) Tablet two times daily for 0 days Quantity: 60 {Tablet} Refills: 0 Ordered:26-Jan-2017 JACKIE Bruno Start : 26-Jan-2017 End : 26-Jan-2017 Inactive Mcrae Helena 7.5-325 MG Oral Tablet tid prn (7.5-325 [...] Quantity: 30 {Tablet} Refills: 3 Ordered:27-Feb-2015 Slarb [employer]IAN [employer] OFFICER, Ambreen Start : 07-Sep-2014 End : 27-Feb-2015 [...] Quantity: 30 {Tablet} Refills: 0 Ordered:27-Feb-2015 Slarb [employer]IV[employer]IAN JAIL OFFICER, Ambreen Start : 05-Feb-2015 End : 27-Feb-2015 [...] (R79.9, 790.6) Comments: tsh off will call [facility] and get leaves will follow Status: Resolved as of 15-May-2017 Abnormal finding on radiology exam (R93.8, 793.99) Comments: remains on levaquin and prednisone seeing Dr. Deangelo vallecillo in [place] next week. Status: Inactive as of 04-Sep-2016 [...] osteoarthritis (M19.90, 715.90) Comments: MRI one erosion [place] not sure iseronegative RA will be on [...] 1.[address] chest in [facility] with radiology at [facility] can they compare for me with [...] inside ?olyp ? adenomyosis. ? endometriosis to fold skiver Status: Inactive as of 15-Mar-2015 Perimenopausal menorrhagia [...] as of 15-Mar-2015 WWV V73.21 (Renamed from [facility]) Comments: scope at 52 recommend but refusing must do right now refuse mammo and pap. wrote for mammo just in case will get Status: Inactive as of 15-Mar-2015 Yeast infection (B37.9, 112.9) Status: Inactive as of 15-Mar-2015 Procedures Procedure Dates Details ARTHROPLASTY, HIP, TOTAL (30245) Completed Comments: left @ [facility] 03-18-18 Dr. Wendy Mckoy Carpal Tunnel b/l wrist Completed Colonoscopy, Screening Completed Comments: 01-01-[address] Gutierrez Dilation and Curettage of Uterus Completed Nov-2015 kidney sx as Completed partial knee replacement -- Left Leg Completed .2010 right lobe resection-lung Completed Comments: February 2015 Date Value Details 04-Apr-2018 Emergency Department Summary Result: Comments: See Note; NOTES: [facility] Medical Records Department [address] [place] [address] Emergency Department Summary 04/04/181929 MR#: [id number] Acct: [id number] Name: TIN BLACKWOOD Rep #: [id number] : 1960 57 From: Christian Hemphill PCP: Shasha Barker MD Status: REG ER - ER Visit Summary Date of Service: 04/04/18 Chief Complaint: Left hip pain History of Presen t Illness: The patient is a 57 F increasing left hip pain after sitting down at the kitchen table 1830. States may be slightly bending forward. There is no falls. Status post total hip replacement Novem lc [address] Hsu at [facility] due to history of avascular necrosis secondary to rheumatoid arthritis and prednisone use. Doing well post surgery. Has not had her follow-up. On chronic Mcrae Helena . Status post 12.5 mics of fentanyl IV. Last meal was yesterday evening. Physical Examination: General: Alert and oriented 3, moderate distress HEENT: Normocephalic, atraumatic. Moist mucosa membranes Neck: supple, nontender. Cardiovascular: Regular rate and rhythm, no murmurs Respiratory: Normal breath sounds, symmetric, no distress Abdomen: Soft, nontender, nondistended Extremities: Left lower extr emity: Hip in flexion position with the knee in flexion. Did not want to move secondary to pain. Pulses were intact distally. Neuro: no focal neurological deficits. Test Results: Left hip x-ray: Super ior dislocation noted. Re-x-ray: Relocated Emergency Department Course and Treatment: Patient history concerns for dislocation. Treated additional fentanyl IV. Image confirms superior dislocation. Cons ent made for relocation. Timeout, monitor, oxygen, pulse ox, capnography. A total of 130 mg propofol was used. Hip was relocated. Post films confirms this. Knee immobilizer placed. She has a walker. She will call her orthopedist tomorrow for follow-up. Treatment Plan: [] Disposition: Discharge Impression: 1. Left hip dislocation status post relocation 2. procedure sedation This note was generate d with [employer] dictation software. It may contain incorrect words, spelling, and punctuation that were not noted in review of the chart prior to signing ED Disposition - Plan for ED Patient: Dispositi on: Home or Assisted Living Chief Complaint: Other, Pain/Inj Diagnosis: Hip dislocation, left Instructions: ED Hip Replace Dislocation Reduc Referrals: Shasha Barker MD [Primary Care Provider] - Additi onal Instructions: Call Dr. Loredo tomorrow for earlier follow-up. Keep on knee immobilizer. Do not over flex at the hip. What to do if you have Problems For any increased pain, shortness of breath , bleeding, nausea or vomiting, chest pain, or any unexpected problems, contact your Primary Care Provider. Call [facility] ([phone]) or report to the closest Emergency Room. Call 911 if nece ssary. 04/04/182056 <Electronically signed by Christian Hmephill> Date Christian Hemphill Cosigner Signature (If Indicated): Date ____ CC: Shasha Barker MD 04-Apr-2018 Hip Min 2 Views (Portable) Result: Comments: See Note; NOTES: [facility] Imaging Services [address] [facility] [place] [address] Hip Min 2 Views (Portable) MR#: [id number] Acct: [id number] Name: TIN BLACKWOOD Rep #: [id number] : 1960 F 57 From: Vazquez Kaye MD PCP: Shasha Barker MD Status: DEP ER Study: Hip Min 2 Views (Portable) Date of Exam: 04/04/18 Exam# [id number] Ordering Dr: Christian Schrader DO STUDY: X-RAY - L EFT HIP REASON FOR EXAM: Female, 57 years old. Post reduction TECHNIQUE: 2 views of the hip. COMPARISON: Earlier today FINDINGS: Current study shows anatomic alig nment of the left hip joint after closed reduction. No evidence of hardware complication or failure or acute fracture. RAD/Hip Min 2 Views (Port able) IMPRESSION: Anatomic alignment of the replaced left hip joint. Electronically Signed: Glenn Kaye MD at 23:00 EST , Service support , Fax CC: Shasha Barker MD; Christian Schrader Community Service Director: Signed 04-Apr-2018 HIP, UNI W/ Pelvis 2-3 Views Result: Comments: See Note; NOTES: [facility] Imaging Services [address] [place] [address] HIP, UNI W/ Pelvis 2-3 Views MR#: [id number] Acct: [id number] Name: TIN BLACKWOOD Rep #: [id number] : 1960 F 57 From: Davi Ambrose DO PCP: Shasha Barker MD Status: DEP ER Study: HIP, UNI W/ Pelvis 2-3 Views Date of Exam: 04/04/18 Exam# [id number] Ordering Dr: Christian Schrader DO STUDY: X-RAY - PELVIS AND LEFT HIP REASON FOR EXAM: Female, 57 years old. Dislocated hip. TECHNIQUE: 3 views of the pelvis and hip. COMPARISON: None. FINDINGS: There is a non -specific bowel gas pattern. Normal visualized soft tissue structures. There are multiple calcified phleboliths. Normal bilateral iliac wings, sacroiliac joints and visualized sacrum. Normal bilateral superior and inferior pubic rami. Normal pubic symphysis. Normal bilateral ischial tuberosities. Normal right hip. There is posterior dislocation of the left artificial hip. The prosthetic components a re intact. There is no loosening of the prosthetic components from the underlying bone. There is no visualized osseous fracture. RAD/HIP, UNI W/ Pelvis 2-3 Views IMPRESSION: Posterior dislocation of a left artificial hip. Electronically Signed: Davi Ambrose DO at 22:07 EST Tel [phone], Service support , Fax CC: Shasha Barker MD; Christian Schrader Community Service Director: Signed 10-Feb-2018 Lower Ext Joint Only W/WO Cont Result: Comments: See Note; NOTES: [facility] Imaging Services [address] [place] [address] Lower Ext Joint Only W/WO Cont MR#: [id number] Acct: [id number] Name: TIN BLACKWOOD Rep # : [id number] : 1960 F 57 From: Kadie Dailey MD PCP: Shasha Barker MD Status: REG CLI Study: Lower Ext Joint Only W/WO Cont Date of Exam: 02/10/18 Exam# [id number] Ordering Dr: CARLOS SHELBY M.D. STUDY: MRI [...] CC: CARLOS SHELBY M.D.; Shasha Barker MD Community Service Director: Signed 28-Jan-2018 Chest without Contrast Result: Comments: See Note; NOTES: [facility] Imaging Services [address] [place] [address] Chest without Contrast MR#: [id number] Acct: [id number] Name: TIN BLACKWOOD Rep #: [id number] : 1960 F 57 From: Vazquez Kaye MD PCP: Shasha Barker MD Status: REG CLI Study: Chest without Contrast Date of Exam: 01/28/18 Exam# [id number] Ordering Dr: Pelon Chatterjee MD STUDY: CT [...] CC: Shasha Barker MD; Pelon Chatterjee MD Community Service Director: Signed 20-Jan-2018 Emergency Department Summary Result: Comments: See Note; NOTES: [facility] Medical Records Department [address] [place] [address] Emergency Department Summary 01/19/18 1534 MR#: [id number] Acct: [id number] Name: TIN BLACKWOOD Rep #: [id number] : 1960 57 From: Rolando Mc MD [...] Lumbar radiculopathy This note was generated with [employer] dictation software. It may contain incorrect words, [...] your Primary Care Provider. Call [facility] ([phone]) or report t o the closest Emergency Room. Call 911 if necessary. 01/20/18 0235 <Electronically signed by Rolando Mc MD> Date Rolando Mc MD Cosigner Signature (If Indicated): Date CC: Shasha Barker MD 19-Jan-2018 Spine Lumbar (Routine) Result: Comments: See Note; NOTES: [facility] Imaging Services [address] [facility] [place] [place] [address] Spine Lumbar (Routine) MR#: [id number] Acct: [id number] Name: TIN BLACKWOOD Rep #: [id number] : 1960 F 57 From: Nabeel Bernabe MD PCP: Shasha Barker MD Status: REG ER Study: Spine Lumbar (Routine) Date of Exam: 01/19/18 Exam# [id number] Ordering Dr: Rolando Mc MD STUDY: MRI [...] , CC: Shasha Barker MD; Rolando Mc Community Service Director: Signed 19-Jan-2018 Spine Lumbar (Routine) Result: Comments: See Note; NOTES: [facility] Imaging Services [address] [place] [address] Spine Lumbar (Routine) MR#: [id number] Acct: [id number] Name: TIN BLACKWOOD Rep #: [id number] : 1960 F 57 From: Nabeel Bernabe MD PCP: Shasha Barker MD Status: REG Study: Spine Lumbar (Routine) Date of Exam: 01/19/18 Exam# [id number] Ordering Dr: Rolando Mc MD STUDY: MRI [facility] SPINE WITHOUT CONTRAST REASON FOR EXAM: Female, [...] , CC: Shasha Barker MD; Rolando Mc Community Service Director: Signed 10-Dec-2017 Lower Ext/No Jt/w/o Result: Comments: See Note; NOTES: [facility] Imaging Services [address] [place] [address] Lower Ext/No Jt/w/o MR#: [id number] Acct: [id number] Name: TIN BLACKWOOD Rep #: [id number] : 1960 F 56 From: Julio Cannon MD PCP: Shasha Barker MD Status: REG CLI Study: Lower Ext/No Jt/w/o Date of Exam: 12/10/17 Exam# [id number] Ordering Dr: Nabeel Danielle DPM STUDY: MRI [...] CC: Shasha Barker MD; Nabeel Danielle DPM Community Service Director: Signed 18-Nov-2017 Thyroid Uptake Single or Mult Result: Comments: See Note; NOTES: [facility] Imaging Services [address] [place] [address] Thyroid Uptake Single or Mult MR#: [id number] Acct: [id number] Name: TIN BLACKWOOD Rep #: [id number] : 1960 F 56 From: Asif Pagan DO PCP: Shasha Barker MD Status: REG CLI Study: Thyroid Uptake Single or Mult Date of Exam: 11/18/17 Exam# [id number] Ordering Dr: Bonezzi, Shasha MD C LINICAL: 56-year-old female with reported [...] to the presence of visualized th yroid ppwypay-Y-ikvqht thyroid gland. 3. No hypofunctioning, cold nodules are identified. Electronically Signed: Asif Pagan DO at 22:10 EDT Tel , Service support [phone], CC: Shasha Barker MD Community Service Director: Signed 16-Nov-2017 Spine Cervical (Routine) Result: Comments: See Note; NOTES: [facility] Imaging Services [address] [place] [address] Spine Cervical (Routine) MR#: [id number] Acct: [id number] Name: TIN BLACKWOOD Rep #: [id number] : 1960 F 56 From: Anrdew Duran DO PCP: Shasha Barker MD Status: REG CLI Study: Spine Cervical (Routine) Date of Exam: 11/16/17 Exam# [id number] Ordering Dr: More Taylor MD STUDY: MRI [...] CC: More Taylor MD; Shasha Barker MD Community Service Director: Signed 03-Nov-2017 Pelvis 1 or 2 Views Result: Comments: See Note; NOTES: [facility] Imaging Services [address] [place] [address] Pelvis 1 or 2 Views MR#: [id number] Acct: [id number] Name: TIN BLACKWOOD Rep #: [id number] : 1960 F 56 From: Vale Godoy MD PCP: Shasha Barker MD Status: REG CLI Study: Pelvis 1 or 2 Views Date of Exam: 11/03/17 Exam# [id number] Ordering Dr: Shasha Barker MD STUDY: X-RAY [...] at 17:01 EDT Tel , Service support [phone], CC: Shasha Barker MD Community Service Director: Signed 27-Aug-2017 Orb Sella Post Fossa Ear w/o Result: Comments: See Note; NOTES: [facility] Imaging Services [address] [place] [address] Orb Sella Post Fossa Ear w/o MR#: [id number] Acct: [id number] Name: TIN BLACKWOOD Rep #: [id number] : 1960 F 56 From: Nir Dudley MD PCP: Shasha Barker MD Status: REG CLI Study: Orb Sella Post Fossa Ear w/o Date of Exam: 08/27/17 Exam# [id number] Ordering Dr: Dale Zuniga STUDY: CT TEMPORAL [...] CC: Beni Zuniga MD; Shasha Barker MD Community Service Director: Signed 25-May-2017 Chest PA and Lateral Result: Comments: See Note; NOTES: [facility] Imaging Services [address] [place] [address] Chest PA and Lateral MR#: [id number] Acct: [id number] Name: TIN BLACKWOOD Rep #: [id number] : 1960 F 56 From: Aguilar Joaquin MD PCP: Shasha Barker MD Status: [facility] RCR Study: Chest PA and Lateral Date of Exam: 05/25/17 Exam# [id number] Ordering Dr: Pelon Chatterjee MD STUDY: X-RAY [...] Aguilar Joaquin MD at 19:35 EST Tel [phone], Service support , CC: Shasha Barker MD; Pelon Chatterjee MD Community Service Director: Signed 15-May-2017 Chest PA and Lateral Result: Comments: See Note; NOTES: [facility] Imaging Services [address] [place] [address] Chest PA and Lateral MR#: [id number] Acct: [id number] Name: TIN BLACKWOOD Rep #: [id number] : 1960 F 56 From: Patrice Pinto MD PCP: Shasha Barker MD Status: REG CLI Study: Chest PA and Lateral Date of Exam: 05/15/17 Exam# [id number] Ordering Dr: Shasha Barker MD STUDY: X-RAY [...] Service support , CC: Shasha Barker MD Community Service Director: Signed 21-Jan-2017 Emergency Department Summary Result: Comments: See Note; NOTES: [facility] Medical Records Department [address] [place] [address] Emergency Department Summary 01/20/17 2344 MR#: [id number] Acct: [id number] Name: TIN BLACKWOOD Rep #: [id number] : 1960 56 From: Christian Hemphill PCP: [...] for ED Patient: Disposition: Acute Care Hospital [facility] Chief Complaint: Shortness of Breath Diagnosis: Pulmonary fibro sis, Hypoxemia, Elevated troponin, Pulmonary nodule, right Referrals: Shasha Barker MD [Primary Care Provider] - What to do if you have Problems For any increased pain, shortness of breath, bleedin g, nausea or vomiting, chest pain, or any unexpected problems, contact your Primary Care Provider. Call [facility] ([phone]) or report to the closest Emergency Room. Call 911 if necessary. 01/21/17 0231 <Electronically signed by Christian Hemphill> Date Christian Hemphill Cosigner Signature (If Indicated): Date CC: Shasha Barker MD 21-Jan-2017 CTA Chest W/WO Contrast Result: Comments: See Note; NOTES: [facility] Imaging Services [address] [place] [address] CTA Chest W/WO Contrast MR#: [id number] Acct: [id number] Name: TIN BLACKWOOD Rep #: [id number] : 1960 F 56 From: Stepan Mayberry MD PCP: Shasha Barker MD Status: REG ER Study: CTA Chest W/WO Contrast Date of Exam: 01/21/17 Exam# [id number] Ordering Dr: Christian Schrader DO STUDY: CTA [...] , CC: Shasha Barker MD; Christian Schrader Community Service Director: Signed 20-Jan-2017 Chest PA and Lateral Result: Comments: See Note; NOTES: [facility] Imaging Services [address] [place] [address] Chest PA and Lateral MR#: [id number] Acct: [id number] Name: TIN BLACKWOOD Rep #: [id number] : 1960 F 56 From: Stepan Mayberry MD PCP: Shasha Barker MD Status: REG ER Study: Chest PA and Lateral Date of Exam: 01/20/17 Exam# [id number] Ordering Dr: Christian Schrader DO STUDY: X-RAY [...] , CC: Shasha Barker MD; Christian Schrader Community Service Director: Signed 21-Nov-2016 PT D/C Summary (1) Result: Comments: See Note; NOTES: [facility] Physical Therapy [facility] [address] [place] [address] Fax REHABILITATION SERVICES DISCHAR GE SUMMARY MR#: [id number] Acct: [id number] Name: TIN BLACKWOOD Rep #: [id number] : 1960 55 From: Yury Lawrence PT, Cert. MDT, OCS Referring Dr.: Shsaha Barker MD Status: REG RCR Insurance: A [facility] - PT D/C Summary It has [...] please feel free to call me at [phone]. Thank you for the referral of this patient. Sincerely, Yury Lawrence PT, <Electronically signed by Cert. SERVANDO Simms PTT, OCS> 11/21/16 1533 CC: Shasha Barker MD MARIN Signed 22-Oct-2016 Inital Evaluation (1) - PT Result: Comments: See Note; NOTES: [facility] Physical Therapy [facility] [address] [place] [address]. [address] [place] [address] Fax REHABILITATION SERVICES INITIAL EVALUATION MR#: [id number] Acct: [id number] Name: TIN BLACKWOOD Rep #: [id number] : 1960 55 From: Cert. ANNA Simms PT, OCS Referring Dr.: Shasha Barker MD Status: REG R Insurance: [facility] Patient's Visit Information TIN BLACKWOOD is a [...] to be FAXED BACK to us at [phone] for Medicare purposes. Please let me know if there are questions or concerns regarding this plan of care. Physician Signature: Date: <Electronically signed by Yury Lawrence PT, Cert. T, OCS> 10/22/16 6073 CC: Shasah Barker MD MARIN Signed F or Medicare only, by signing this I certify the plan of care. Physicians Signature Date 11-Sep-2016 Chest PA and Lateral Result: Comments: See Note; NOTES: [facility] Imaging Services [address] [place] [address] Verdana 4d Chest PA and Lateral MR#: [id number] Acct: [id number] Name: TIN BLACKWOOD Rep #: [id number] : 1960 F 55 From: Hair Rogers MD PCP: Shasha Barker MD Status: REG CLI Study: Chest PA and Lateral Date of Exam: 09/11/16 Exam# [id number] Ordering Dr: Pelon Chatterjee MD STUDY: X-RAY [...] CC: Shasha Barker MD; Pelon Chatterjee MD Community Service Director: Signed 18-Aug-2016 Foot min 3 Views Result: Comments: See Note; NOTES: [facility] Imaging Services [address] [place] [address] Verda 4d Foot min 3 Views MR#: [id number] Acct: [id number] Name: TIN BLACKWOOD Rep #: [id number] : 1960 F 55 From: Smith Delaney MD PCP: Shasha Barker MD Status: REG CLI Study: Foot min 3 Views Date of Exam: 08/18/16 Exam# [id number] Ordering Dr: Shasha Barker MD STUDY: X-RAY - [facility] FOOT CLINICAL: Female, 55 years old. [...] Service support , CC: Shasha Barker MD Community Service Director: Signed 05-Aug-2016 Chest 1 View (Portable) Result: Comments: See Note; NOTES: [facility] Imaging Services [address] [place] [address] Verda 4d Chest 1 View (Portable) MR#: [id number] Acct: [id number] Name: TIN BLACKWOOD Rep #: [id number] : 1960 F 55 From: Aguilar Joaquin MD PCP: Shasha Barker MD Status: REG ER Study: Chest 1 View (Portable) Date of Exam: 08/05/16 Exam# [id number] Ordering Dr: Regino Hinson MD STUDY: X-RAY [...] Aguilar Joaquin MD at 9:42 EDT Tel [phone], Service support [phone], CC: Shasha Barker MD; Regino Hinosn MD Community Service Director: Signed 01-Jul-2016 Chest WITH Contrast Result: Comments: See Note; NOTES: [facility] Imaging Services [address] [place] [address] Verdana 4d Chest WITH Contrast MR#: [id number] Acct: [id number] Name: TIN BLACKWOOD Rep #: [id number] : 1960 F 55 From: Keyshawn Ute PCP: Shasha Barker MD Status: REG CLI Study: Chest WITH Contrast Date of Exam: 07/01/16 Exam# [id number] Ordering Dr: Shasha Barker MD STUDY: CT [...] the thyroid. As compared to exam from 2015, there is been significant decrease in mosaic [...] Service support , CC: Shasha Barker MD Community Service Director: Signed 17-Jun-2016 Spine Cervical (Routine) Result: Comments: See Note; NOTES: [facility] Imaging Services [facility] [place] [address] [facility] 4d Spine Cervical (Routine) MR#: [id number] Acct: [id number] Name: TIN BLACKWOOD Barbara p #: [id number] : 1960 F 55 From: Kadie Dailey MD PCP: Shasha Barker MD Status: REG CLI Study: Spine Cervical (Routine) Date of Exam: 06/17/16 Exam# [id number] Ordering Dr: More Taylor MD STUD Y: [...] MD at 11:29 EST , Service support [phone], CC: More Taylor MD; Shasha Barker MD Community Service Director: Signed 17-Jun-2016 Spine Thoracic (Routine) Result: Comments: See Note; NOTES: [facility] Imaging Services [address] [place] [address] Verdana 4d Spine Thoracic (Routine) MR#: [id number] Acct: [id number] Name: TIN BLACKWOOD p #: [id number] : 1960 F 55 From: Kadie Dailey MD PCP: Shasha Barker MD Status: REG CLI Study: Spine Thoracic (Routine) Date of Exam: 06/17/16 Exam# [id number] Ordering Dr: More Taylor MD STUD Y: [...] MD at 11:55 EST , Service support [phone], CC: Ira Taylor MD; Shasha Barker MD Community Service Director: Signed 29-May-2016 Dexa Bone Density Study (HP) Result: Comments: See Note; NOTES: [facility] Imaging Services [address] [place] [address] Verdana 4d Dexa Bone Density Study (HP) MR#: [id number] Acct: [id number] Name: ELISSA BLACKWOOD Rep #: [id number] : 1960 F 55 From: Aguilar Joaquin MD PCP: Shasha Barker MD Status: REG CLI Study: Dexa Bone Density Study (HP) Date of Exam: 05/29/16 Exam# [id number] Ordering Dr: Shasha Barker MD STUDY: DUAL [...] Aguilar Joaquin MD at 13:27 EST Tel [phone], Service support [phone], CC: Shasha Barker MD Community Service Director: Signed 29-May-2016 SCREENING MAMM (CAD), BILAT Result: Comments: See Note; NOTES: [facility] Imaging Services [address] [place] [address] Verdana 4d SCREENING MAMM (CAD), BILAT MR#: [id number] Acct: [id number] Name: TIN BLACKWOOD Rep #: [id number] : 1960 F 55 From: Aguilar Joaquin MD PCP: Shasha Barker MD Status: REG CLI Study: SCREENING MAMM (CAD), BILAT Date of Exam: 05/29/16 Exam# [id number] Ordering Dr: Yoana Barker MD MAMMOGRAPHY - [...] delay biopsy of a clinically suspicious abnormality. [id number] Electronically Signed: Aguilar Joaquin MD at 15:18 EST Tel [phone], Service support [phone], CC: Shasha Barker MD Community Service Director: Signed 29-Nov-2015 NCS and/or EMG Patient Result: Comments: See Note; NOTES: [facility] Pulmonary Services/Neurology [address] [place] [address] NCS and/or EMG Patient MR#: [id number] Acct: [id number] Name: TIN BLACKWOOD Rep #: [id number] : 1960 54 From: Lucas Kiser MD Referring Dr: More Taylor MD Status: REG CLI Ordering Dr: More Taylor MD Date: 11/27/15 Location: [facility] Sex: F C DATE OF [...] radiculopathy. Lucas hand MD T: NTS JOB: [id number] 11/29/15 0959 <Electronically signed by Lucas Kiser MD> Date Lucas Kiser MD CC: More Taylor MD; Shasha Barker MD; Lucas Kiser MD Date Dictated: 11/27/15 1145 Date Transcribed: 11/27/151144 Community Service Director: Signed 12-Oct-2015 Spine Lumbar (Routine) Result: Comments: See Note; NOTES: [facility] Imaging Services [address] [place] [address] Verdana 4d Spine Lumbar (Routine) MR#: [id number] Acct: [id number] Name: TIN BLACKWOOD Rep #: [id number] : 1960 F 54 From: Nabeel Bernabe MD PCP: Shasha Barker MD Status: REG CLI Study: Spine Lumbar (Routine) Date of Exam: 10/12/15 Exam# [id number] Ordering Dr: More Taylor MD STUDY: MRI [...] MD at 20:50 EDT , Service support [phone], CC: More Taylor MD; Shasha Barker MD Community Service Director: Signed 12-Oct-2015 Lumbar Spine 2 or 3 Views Result: Comments: See Note; NOTES: [facility] Imaging Services [address] [place] [address] Verdana 4d Lumbar Spine 2 or 3 Views MR#: [id number] Acct: [id number] Name: TIN LLOYD Rep #: [id number] : 1960 F 54 From: Smith Delaney MD PCP: Shasha Barker MD Status: REG CLI Study: Lumbar Spine 2 or 3 Views Date of Exam: 10/12/15 Exam# [id number] Ordering Dr: More Watts MD STUDY: X-RAY [...] FACR at 8:27 EDT , Service support [phone], CC: More Taylor MD; Shasha Barker MD Community Service Director: Signed 12-Oct-2015 Thoracic Spine 3 Views Result: Comments: See Note; NOTES: [facility] Imaging Services [address] [place] [address] Verdana 4d Thoracic Spine 3 Views MR#: [id number] Acct: [id number] Name: TIN BLACKWOOD Rep #: [id number] : 1960 F 54 From: Smith Delaney MD PCP: Shasha Barker MD Status: REG CLI Study: Thoracic Spine 3 Views Date of Exam: 10/12/15 Exam# [id number] Ordering Dr: More Taylor MD STUDY: X-RAY [...] FACR at 8:26 EDT , Service support [phone], 0082 RAD/Thoracic Spine 3 Views IMPRESSION : Thoracic spondylosis with multilevel degenerative disc disease Electronically Signed: Smith Delaney MD, FACR at 8:26 EDT , Service support [phone], Fax CC: More Taylor MD; Shasha Barker MD Community Service Director: Signed 03-Oct-2015 Chest PA and Lateral Result: Comments: See Note; NOTES: [facility] Imaging Services [address] [place] [address] Verda 4d Chest PA and Lateral MR#: [id number] Acct: [id number] Name: Hero BLACKWOOD Rep #: [id number] : 1960 F 54 From: Aguilar Joaquin MD PCP: Shasha Barker MD Status: REG CLI Study: Chest PA and Lateral Date of Exam: 10/03/15 Exam# [id number] Ordering Dr: Hortensia Mcnamara i, MD STUDY: [...] Aguilar Joaquin MD at 12:56 EDT Tel [phone], Service support [phone], RAD/Chest PA and Lateral IMPRESSION: Minimal degree of res idual increased markings at the lung bases as compared to prior study. Electronically Signed: Aguilar Joaquin MD at 12:56 EDT Tel [phone], Service support [phone], Fax CC: Shasha Barker MD; Hortensia Tinajero MD Community Service Director: Signed 05-Sep-2015 Kidney and Bladder Result: Comments: See Note; NOTES: [facility] Imaging Services [address] [place] [address] Verdana 4d Kidney and Bladder MR#: [id number] Acct: [id number] Name: KARINA BLACKWOOD Rep #: [id number] : 1960 F 54 From: Aguilar Joaquin MD PCP: Shasha Barker MD Status: REG CLI Study: Kidney and Bladder Date of Exam: 09/05/15 Exam# [id number] Ordering Dr: Sacha Barker MD STUDY: RENAL [...] Aguilar Joaquin MD at 10:56 EDT Tel [phone], Service support [phone], CC: Shasha Barker MD Community Service Director: Signed 22-Jun-2015 Nuclear Stress Test - Chemical Result: Comments: See Note; NOTES: [facility] Imaging Services [address] [place] [address] Verdana 4d Nuclear Stress Test - Chemical MR#: [id number] Acct: [id number] N miguel: TIN BLACKWOOD Rep #: [id number] : 1960 54 From: Dusty Lund MD [...] ejection fraction. Dusty Lund MD T: [facility] JOB: [id number] 06/26/15 1259 & #60;Electronically signed by Dusty Lund MD> Date Dusty Lund MD CC: Shasha Barker MD Date Dictated: 06/22/151819 Date Transcribed: 06/22/151819 Community Service Director: Signed 13-Jun-2015 Lumbar Spine 2 or 3 Views Result: Comments: See Note; NOTES: [facility] Imaging Services [address] [place] [address] Verdana 4d Lumbar Spine 2 or 3 Views MR#: [id number] Acct: [id number] Name: TIN LLOYD Rep #: [id number] : 1960 F 54 From: Smith Delaney MD PCP: Shasha Barker MD Status: REG CLI Study: Lumbar Spine 2 or 3 Views Date of Exam: 06/13/15 Exam# [id number] Ordering Dr: More Watts MD STUDY: X-RAY [...] FACR at 11:06 EST , Service support [phone], RAD/Lumbar Spine 2 or 3 Views IM PRESSION: Degenerative disc disease at L4-5 and L5-S1. Electronically Signed: Smith Delaney MD, FACR at 11:06 EST , Service support [phone], CC: More Taylor MD; Shasha Barker MD Community Service Director: Signed 13-Jun-2015 Thoracic Spine 3 Views Result: Comments: See Note; NOTES: [facility] Imaging Services [address] [place] [address] Verdana 4d Thoracic Spine 3 Views MR#: [id number] Acct: [id number] Name: TIN BLACKWOOD Rep #: [id number] : 1960 F 54 From: Smith Delaney MD PCP: Shasha Barker MD Status: REG CLI Study: Thoracic Spine 3 Views Date of Exam: 06/13/15 Exam# [id number] Ordering Dr: More Taylor MD ADDENDUM by Smith Delaney MD on 06/14/15 at 1105 ADDENDUM TECHNIQUE: 3 view(s) o f the thoracic spine were obtained. Electronically Signed: Smith Delaney MD, FACR at 11:05 EST , Service support [phone], 06/14/15 1101 Date cc: More Taylor MD; Shasha Barker [...] FACR at 11:05 EST , Service support [phone], RAD/Thoracic S pine 3 Views IMPRESSION: Thoracic spondylosis Electronically Signed: Smith Delaney MD, FACR at 11:05 EST , Service support [phone], CC: More Taylor MD; Shasha Barker MD Community Service Director: Signed 13-Jun-2015 Thoracic Spine 3 Views Result: Comments: See Note; NOTES: [facility] Imaging Services [address] [place] [id number] [place] [address] 4d Thoracic Spine 3 Views MR#: [id number] Acct: [id number] Name: TIN BLACKWOOD Rep #: [id number] : 1960 F 54 From: Smith Delaney MD PCP: Shasha Barker MD Status: REG CLI Study: Thoracic Spine 3 Views Date of Exam: 06/13/15 Exam# [id number] Ordering Dr: More Taylor MD STUDY: X-RAY [...] FACR at 11:05 EST , Service support [phone], RAD/Thoracic Spine 3 Views IMPRESSION: Thoracic spondylosis Electronic ally Signed: Smith Delaney MD, FACR at 11:05 EST , Service support [phone], CC: More Taylor MD; Shasha Barker MD Community Service Director: Signed 08-Jun-2015 EKG (67307) Result: [MEASUREMENTS ANALYSIS] Date of Test: 06/08/2015 13:15:12; Heart Rate: 96; ND Interval: 130; QRS: 88; QT Interval: 340; Corrected QT Interval (QTc): 403; P Wave [place]: 48; QRS Wave [place]: 32; T Wave [place]: 36; Blood Pressure: 120/80 [ECG DIAGNOSTIC STATEMENTS] Date of Test: 06/08/2015 13:15:12; Summary: Sinus Rhythm WITHIN NORMAL LIMITS [MEASUREMENTS ANALYSIS] Date of Test: 06/08/2015 13:14:43; Heart Ra te: 97; ND Interval: 126; QRS: 88; QT Interval: 340; Corrected QT Interval (QTc): 404; P Wave [place]: 51; QRS Wave [place]: 31; T Wave [place]: 40; Blood Pressure: 120/80 [ECG DIAGNOSTIC STATEMENTS] Date of Supriya t: 06/08/2015 13:14:43; Summary: Sinus Rhythm WITHIN NORMAL LIMITS 27-Feb-2015 Chest PA and Lateral Result: Comments: See Note; NOTES: [facility] Imaging Services [address] [place] [address] Verdana 4d Chest PA and Lateral MR#: [id number] Acct: [id number] Name: Hero BLACKWOOD Rep #: [id number] : 1960 F 54 From: Aguilar Joaquin MD PCP: Shasha Barker MD Status: REG CLI Study: Chest PA and Lateral Date of Exam: 02/27/15 Exam# [id number] Ordering Dr: Ophelia Boogie STUDY: X-RAY CHEST [...] Aguilar Joaquin MD at 13:45 EDT Tel [phone], Service support [phone], RAD/Chest PA and Lateral IMPRES TABBY: Persistent interstitial disease in keeping with known scarring. Improved aeration of both lungs with residual infiltrate in the peripheral aspect of the right lung. Electronically Signed: Darryl Joaquin MD at 13:45 EDT Tel [phone], Service support [phone], CC: Ophelia Boogie; Shasha Barker MD Community Service Director: Signed 05-Feb-2015 Chest PA and Lateral Result: Comments: See Note; NOTES: [facility] Imaging Services [address] [place] [address] Radiology Report MR#: [id number] Acct: [id number] Name: TIN BLACKWOOD Rep #: [id number] : 1960 F 54 From: Vega Payan MD PCP: Shasha Barker MD Status: REG CLI Study: Chest PA and Lateral Date of Exam: 02/05/15 Exam# [id number] Ordering Dr: Ophelia Boogie STUDY: X-RAY C [...] Vega Payan MD at 17:03 EDT Tel [phone], Service support [phone], [phone] RAD/Chest PA and Lateral IMPRESSION: 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 Recommend followup till clear. Electronically Signed: Vega Payan MD a t 17:03 EDT Tel [phone], Service support [phone], CC: Ophelia Boogie; Shasha Barker MD Community Service Director: Signed 06-Nov-2014 Operative Report Result: Comments: See Note; NOTES: [facility] Medical Records Department [address] [place] [address] Operative Report MR#: [id number] Acct: [id number] Name: TIN BLACKWOOD Rep #: [id number] : 1960 53 From: Allie Bales MD PCP: Shasha Barker MD Status: [facility] DATE OF SERVICE: 11/06/2014 [...] time. Allie Bales MD T: NTS JOB: [id number] 11/06/14 1429 <Electronically signed by Allie Bales MD> Raul e Allie Bales MD CC: Allie Bales MD; Shasha Barker MD Date Dictated: 11/06/14 1231 Date Transcribed: 11/06/14 1231 Community Service Director: Signed 06-Nov-2014 Discharge Instruction Result: Comments: See Note; NOTES: [facility] Medical Records Department [address] [facility] [place] [address] Instructions for Home/Discharge Instructions 11/06/14 1204 MR#: [id number] ct: [id number] Name: TIN BLACKWOOD Rep #: [id number] : 1960 53 From: Allie Bales MD PCP: Shasha Barker MD [place] [facility] Diet: No Restrictions Discharge Activity: Return [...] Report Result: Comments: See Note; NOTES: [facility] Medical Records Department [address] [place] [address] Operative Report 11/06/14 1202 MR#: [id number] Acct: [id number] Name: TIN BLACKWOOD Rep #: [id number] : 1960 53 From: Allie Bales MD PCP: Shasha Barker MD Status: [facility] Location: [place] [address] Operative Report (Blank) Date of Procedure: 11/06/14 [...] Non- Result: Comments: See Note; NOTES: [facility] Imaging Services [address] [place] [address] Ultrasound Report MR#: [id number] Acct: [id number] Name: TIN BLACKWOOD Rep #: [id number] : 1960 F 53 From: Aguilar Joaquin MD PCP: Shasha Barkre MD Status: REG CLI Study: Transvaginal Non- Date of Exam: 07/24/14 Exam# [id number] Ordering Dr: Ophelia Boogie STUDY: ULTRASOUND OF [...] Aguilar Joaquin MD at 10:36 EDT Tel [phone], Service support [phone], CC: Ophelia Boogie; Shasha Barker MD Community Service Director: Signed 24-Jul-2014 Pelvic (Non ) Result: Comments: See Note; NOTES: [facility] Imaging Services [address] [place] [address] Ultrasound Report MR#: [id number] Acct: [id number] Name: TIN BLACKWOOD Rep #: [id number] : 1960 F 53 From: Aguilar Joaquin MD PCP: Shasha Barker MD Status: REG CLI Study: Pelvic (Non ) Date of Exam: 07/24/14 Exam# [id number] Ordering Dr: Ophelia Boogie STUDY: ULTR ASOUND [...] Darryl Joaquin MD at 10:36 EDT Tel [phone], Service support [phone], CC: Ophelia Boogie; Shasha Barker MD Community Service Director: Signed 05-Sep-2013 Cerv Spine 4 or 5 Views Result: Comments: See Note; NOTES: [facility] Imaging Services [address] [place] [address] Radiology Report MR#: [id number] Acct: [id number] Name: TIN BLACKWOOD Rep #: [id number] : 1960 F 52 From: Vazquez Kaye MD PCP: Shasha Barker MD Status: REG CLI Study: Cerv Spine 4 or 5 Views Date of Exam: 09/05/13 Exam# [id number] Ordering Dr: More Taylor MD STUDY: X-RAY [...] MD at 14:28 EDT , Service support [phone], RAD/Cerv Spine 4 or 5 Views IMPRESSION: Multilevel degenerative changes, 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 No significant interval change Electronically Signed: Glenn Kaye MD at 14:28 EDT , Service support [phone] , CC: More Taylor MD; Shasha Barker MD Community Service Director: Signed 10-Feb-2013 Hand Min 3 Views Result: Comments: See Note; NOTES: [facility] Imaging Services [address] [place] [address] Radiology Report MR#: [id number] Acct: [id number] Name: TIN BLACKWOOD Rep #: [id number] : 1960 F 52 From: Julio Cannon MD PCP: Status: REG CLI Study: Hand Min 3 Views Date of Exam: 02/10/13 Exam# [id number] Ordering Dr: Shasha Barker MD STUDY: X-RAY [...] February 10, 2013 at 10:35:57 PM EDT [phone] Electronically Signed BP/BP If you are the refe rring physician and would like to consult with the radiologist who provided this interpretation, please contact Julio Cannon M.D. at [phone]. If this radiologist is unavailable, you will [...] of these documents. CC: Shasha Barker MD Community Service Director: Signed 10-Feb-2013 Hand Min 3 Views Result: Comments: See Note; NOTES: [facility] Imaging Services [address] [place] [address] Radiology Report MR#: [id number] Acct: [id number] Name: TIN BLACKWOOD Rep #: [id number] : 1960 F 52 From: Julio Cannon MD PCP: Status: REG CLI Study: Hand Min 3 Views Date of Exam: 02/10/13 Exam# [id number] Ordering Dr: Shasha Barker MD STUDY: X-RAY - LEFT HAND DLEMY SON FOR EXAM: Female, 50 years old. [...] February 10, 2013 at 10:36:47 PM EDT [phone] Electronically Signed BP/BP If you are the referring physician and would like to consult with the radiologist who provided this interpretation, please contact Julio Cannon M.D. at [phone]. If [facility], you will be directed to another radiologist to assist. If you are a patient with a question regarding this report, please contact your referring physician directly. Professional Interpretatio n Provided By: [employer], Phone , These documents contain legally protected [...] of these documents. 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 No Drug Use 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 Tobacco Use: Current every day smoker. 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 Non Smoker/No Tobacco Use Status: Inactive Tobacco use: Former smoker. Status: Inactive Smoking Status Name Dates Details Current every day smoker Vital Signs Date Test Result Details :06 Temperature 97.4 f Comments: Method: Oral Pulse [...] kg/m2 Body Surface Area Calculated 1.83 m2 08-Odw-824933:28 Comments: orthostaticssupine: 114/68 P 88sittin/68 P 90 [...] 0.00 cm Results Date Description Value Details 25-Hmw-907221:00 CCP ANTIBODY (54552) Comments: PATIENT NOT FASTINGPERFORMED BY: CB [facility] Yixmzz1600 [facility] [id number] BY: [facility] [address] [id number] CCP Antibodies IgG/IgA 5 {units} (Normal) Range: 0-19 Comments: Negative <20 Weak positive 20 - 39 Moderate positive 40 - 59 Strong positive >59 87-Qzt-228748:00 C-Reactive Protein Comments: PATIENT NOT FASTINGPERFORMED BY: [facility]6370 [facility] [id number] BY: [address] [id number] (49187) C-Reactive Protein, Quant 7.0 mg/L (Abnormal) Range: 0.0-4.9 68-Nyo-076941:00 RHEUMATOID FACTOR-QUANT Comments: PATIENT NOT FASTINGPERFORMED BY: [facility] HospitalFluid-1[place] 6481670 [facility] [id number] BY: [address] [id number] ([address]) RA Latex Turbid. <10.0 {IU/mL} (Normal) Range: 0.0-13.9 62-Rwn-918866:00 CBC with auto diff Comments: PATIENT NOT FASTINGPERFORMED BY: YETI GroupKatherine [place] 6481670 [facility] [id number] BY: [address] [id number] (725[address]) Immature Grans (Abs) 0.0 {x10E3/uL} (Normal) Range: [...] 3.77-5.28 WBC 7.8 {x10E3/uL} (Normal) Range: 3.4-10.8 30-Ytv-826428:00 METABOLIC PANEL, Comments: PATIENT NOT FASTINGPERFORMED BY: CB [facility] Lwptmr7827 [facility] [id number] BY: BN [facility] Xbruyopitc2140 [facility] [id number] COMPREHENSIVE (67251) ALT (SGPT) 9 [iU]/L (Normal) Range: 0-32 [...] 6-24 Glucose 101 mg/dL (Abnormal) Range: 65-99 84-Ijs-441539:00 HGB A1C (02752) Comments: PATIENT NOT FASTINGPERFORMED BY: [address] [id number] BY: [address] [id number] Hemoglobin A1c 5.8 % (Abnormal) Range: 4.8-5.6 Comments: . Prediabetes: 5.7 - 6.4 Diabetes: >6.4 Glycemic control for adults with diabetes: <7.0 47-Udh-251342:00 TSH (02352) Comments: PATIENT NOT FASTINGPERFORMED BY: [address] [id number] BY: [address] [id number] TSH 0.865 {uIU/mL} (Normal) Range: 0.450-4.500 55-Jfr-365927:00 T4, FREE (THYROXINE) Comments: PATIENT NOT FASTINGPERFORMED BY: [address] [id number] BY: [address] [id number] (05783) T4,Free(Direct) 1.14 ng/dL (Normal) Range: 0.82-1.77 07-Vsw-74579:00 Tissue Biopsy See Note (Normal) Comments: [facility] [address] [place], [address] Comments: Patient: TIN BLACKWOOD : 1960 (57/F) Acct Num: [id number] Phys: Jose L Torres DDS Unit Num: [id number] Loc: [facility] Specimen: [id number] Received: 02/19/18 1513 Spec Typ e: Tissue Bx TISSUES [...] time of embedding. / JANES:tammy TC:5 CPT: 45755 HEADER OPERATION: Biopsy cheek/lip PRE-OP DIAGNOSIS: Probable fibroma TISSUE SUBMITTED: Biopsy cheek/lip MICROSCOPIC DESCRIPTION Slides are reviewed. MICROSCOPIC DI AGNOSIS Cheek/lip, biopsy: Squamous mucosa with subepithelial fibrosis, consistent with irritation fibroma. SJ:tammy 02/22/18 Signed Jarrod Holland 02/22/18 <signature on file> 9-Imi-621129:19 HgA1C , Office (44157) HgA1C , Office 6.1 % (Normal) Range: 4.6 - 7.1 7-Oar-608560:19 Blood Glucose , Office (97868) Blood Glucose , Office 153 (Normal) 8-Ejf-338345:19 Urinalysis, Office (76271) UA - LEUKOCYTE ESTERASE Negative (Normal) UA - NITRITE Negative (Normal) URINE UROBILINGN SRAVANI TIMED Normal mg/dL (Normal) UA - PROTEIN Negative mg/dL (Normal) UA - PH 7 (Normal) UA - BLOOD Negative (Normal) UA - SPECIFIC GRAVITY 1.010 (Normal) UA - KETONES Negative mg/dL (Normal) UA - BILIRUBIN Negative (Normal) UA - GLUCOSE Negative (Normal) 1-Gph-559510:42 CBC-Complete Blood Cnt No Diff Comments: [facility] [address] [place], [place], [address] MPV 9.7 fL (Normal) Range: 6.2-12.0 PLT [...] 4.2-5.4 WBC 8.0 K/mm3 (Normal) Range: 4.4-11.0 3-Fto-154604:42 Differential Comment Comments: [facility] [address] [place], [place], [id number] SMEAR COMMENT SCANNED (Normal) Comments: 1+ ANISOCYTOSIS :42 Liver Profile Comments: Comments: [facility] [address] [place], [place], [address] D BILI 0.14 mg/dL (Normal) Range: 0.00-0.30 T BILI 0.60 mg/dL (Normal) Range: 0.20-1.00 ALT 49 U/L (Normal) Range: 13-56 ALK P 46 U/L (Normal) Range: 45-117 AST 25 U/L (Normal) Range: 15-37 GLOB 3.4 g/dL (Normal) Range: 2.2-4.2 ALB 3.6 g/dL (Normal) Range: 3.2-5.0 T PROT 7.0 g/dL (Normal) Range: 6.4-8.2 37-Psv-971495:21 CBC-Complete Blood Cnt No Diff Comments: [facility] [address] [place], [place], [address] MPV 10.2 fL (Normal) Range: 6.2-12.0 PLT [...] 4.2-5.4 WBC 8.0 K/mm3 (Normal) Range: 4.4-11.0 :21 Liver Profile Comments: [facility] [address] [place], [address] D BILI 0.14 mg/dL (Normal) Range: 0.00-0.30 T BILI 0.80 mg/dL (Normal) Range: 0.20-1.00 ALT 50 U/L (Normal) Range: 13-56 ALK P 42 U/L (Abnormal) Range: 45-117 AST 30 U/L (Normal) Range: 15-37 GLOB 3.6 g/dL (Normal) Range: 2.2-4.2 ALB 4.0 g/dL (Normal) Range: 3.2-5.0 T PROT 7.6 g/dL (Normal) Range: 6.4-8.2 :48 HEPATIC FUNCTION PANEL Comments: PATIENT NOT FASTINGPERFORMED BY: [employer]70 [facility] [id number] (48364) ALT (SGPT) 45 [iU]/L (Abnormal) Range: 0-32 AST (SGOT) 33 [iU]/L (Normal) Range: 0-40 Alkaline Phosphatase 39 [iU]/L (Normal) Range: 39-117 Bilirubin, Direct 0.08 mg/dL (Normal) Range: 0.00-0.40 Bilirubin, Total 0.3 mg/dL (Normal) Range: 0.0-1.2 Protein, Total 6.8 g/dL (Normal) Range: 6.0-8.5 :48 T3, FREE (TRIDOTHYRONINE) (68111) Comments: PATIENT NOT FASTINGPERFORMED BY: salgomed Jfjkir4034 [facility] [id number] Triiodothyronine (T3), Free 2.6 pg/mL (Normal) Range: 2.0-4.4 :48 T4, FREE (THYROXINE) (13357) Comments: PATIENT NOT FASTINGPERFORMED BY: [facility]6370 [facility] [id number] T4,Free(Direct) 0.90 ng/dL (Normal) Range: 0.82-1.77 :48 TSH (74356) Comments: PATIENT NOT FASTINGPERFORMED BY: [facility]6370 [facility] [id number] TSH 0.333 {uIU/mL} (Abnormal) Range: 0.450-4.500 9-Zww-641397:48 Renal function Panel (64649) Comments: PATIENT NOT FASTINGPERFORMED BY: [facility]6370 [facility] [id number] Albumin 4.6 g/dL (Normal) Range: 3.5-5.5 Phosphorus [...] 6-24 Glucose 118 mg/dL (Abnormal) Range: 65-99 46-Bzx-053085:54 CBC-Complete Blood Cnt No Diff Comments: [facility] [address] [place], [address] MPV 10.3 fL (Normal) Range: 6.2-12.0 PLT [...] 4.2-5.4 WBC 7.3 K/mm3 (Normal) Range: 4.4-11.0 00-Osn-072005:54 Liver Profile Comments: [facility] [address] [place], [place], [address] D BILI 0.09 mg/dL (Normal) Range: 0.00-0.30 T BILI 0.40 mg/dL (Normal) Range: 0.20-1.00 ALT 49 U/L (Normal) Range: 13-56 ALK P 58 U/L (Normal) Range: 45-117 AST 22 U/L (Normal) Range: 15-37 GLOB 3.4 g/dL (Normal) Range: 2.2-4.2 ALB 3.9 g/dL (Normal) Range: 3.2-5.0 T PROT 7.3 g/dL (Normal) Range: 6.4-8.2 57-Cgs-335090:13 Liver Profile Comments: [facility] [address] [place], [place], [address] D BILI 0.07 mg/dL (Normal) Range: 0.00-0.30 T BILI 0.40 mg/dL (Normal) Range: 0.20-1.00 ALT 49 U/L (Normal) Range: 13-56 Comments: Please note revised ALT reference range zzksdzvou50/28/2018. ALK P 53 U/L (Normal) Range: 45-117 AST 22 U/L (Normal) Range: 15-37 GLOB 3.3 g/dL (Normal) Range: 2.2-4.2 ALB 4.0 g/dL (Normal) Range: 3.2-5.0 T PROT 7.3 g/dL (Normal) Range: 6.4-8.2 9-Exm-240787:59 CBC-Complete Blood Cnt No Diff Comments: [facility] [address] [place], [place], [id number] MPV 10.4 fL (Normal) Range: 6.2-12.0 PLT [...] 4.2-5.4 WBC 9.1 K/mm3 (Normal) Range: 4.4-11.0 7-Lsk-275888:59 Erythrocyte Sed Rate Comments: [facility] [address] [place], [address] SED RATE 15 mm/h (Normal) Range: 0-30 89-Uan-074577:22 CBC-Complete Blood Cnt No Diff Comments: [facility] [address] [place], [place], [address] MPV 10.4 fL (Normal) Range: 6.2-12.0 PLT [...] 4.2-5.4 WBC 7.6 K/mm3 (Normal) Range: 4.4-11.0 [id number] Liver Profile Comments: Comments: [facility] [id number] [place], [id number] D BILI 0.12 mg/dL (Normal) Range: 0.00-0.30 T BILI 0.60 mg/dL (Normal) Range: 0.20-1.00 ALT 38 U/L (Normal) Range: 13-56 Comments: Please note revised ALT reference range /28/2018. ALK P 53 U/L (Normal) Range: 45-117 AST 31 U/L (Normal) Range: 15-37 GLOB 3.2 g/dL (Normal) Range: 2.2-4.2 ALB 3.7 g/dL (Normal) Range: 3.2-5.0 T PROT 6.9 g/dL (Normal) Range: 6.4-8.2 49-Rvi-053703:33 CBC-Complete Blood Cnt No Diff Comments: [facility] [address], [address] MPV 10.7 fL (Normal) Range: [...] 4.2-5.4 WBC 11.5 K/mm3 (Abnormal) Range: 4.4-11.0 47-Kyv-369427:33 Liver Profile Comments: [facility] [address]uzlf[address] [place], [address] D BILI 0.09 mg/dL (Normal) Range: 0.00-0.30 T BILI 0.60 mg/dL (Normal) Range: 0.20-1.00 ALT 33 U/L (Normal) Range: 13-56 Comments: Please note revised ALT reference range tniwfpuhd78/28/2018. ALK P 59 U/L (Normal) Range: 45-117 AST 15 U/L (Normal) Range: 15-37 GLOB 3.7 g/dL (Normal) Range: 2.2-4.2 ALB 3.8 g/dL (Normal) Range: 3.2-5.0 T PROT 7.5 g/dL (Normal) Range: 6.4-8.2 22-Agv-304894:29 CBC-Complete Blood Cnt No Diff Comments: [facility] Dxrzcljayz8345 [facility] [address]. [place], [place], [address] MPV 11.1 fL (Normal) Range: 6.2-12.0 PLT [...] 4.2-5.4 WBC 9.5 K/mm3 (Normal) Range: 4.4-11.0 09-Atg-303923:29 Liver Profile Comments: [facility] [address] [place], [place], [address] D BILI 0.10 mg/dL (Normal) Range: 0.00-0.30 T BILI 0.40 mg/dL (Normal) Range: 0.20-1.00 ALT 29 U/L (Normal) Range: 12-78 ALK P 51 U/L (Normal) Range: 45-117 AST 12 U/L (Abnormal) Range: 15-37 GLOB 3.6 g/dL (Normal) Range: 2.2-4.2 ALB 3.9 g/dL (Normal) Range: 3.4-5.0 Comments: Please note revised Albumin AND Globulin reference rangeeffective 2017. T PROT 7.5 g/dL (Normal) Range: 6.4-8.2 0-Tac-370442:34 Gram Stain w/Sputum Cult Comments: PATIENT NOT FASTINGPERFORMED BY: YETI GroupNorthern Navajo Medical CenterKanaec2738 [facility] [id number] Information: SRC:SP Rflx Gram Stain Evaluation GSACC (Normal) Comments: This specimen is of good quality and is acceptable for routinebacterial culture. Result 1 GNRF (Normal) Comments: Few gram negative rods.Few gram positive cocciRare gram negative coccobacilli Epithelial Cells Few (Normal) White Blood Cells None seen (Normal) 1-Lyq-246155:34 Sputum Culture Comments: PATIENT NOT FASTINGPERFORMED BY: [facility] Qvwnop4989 [facility] [id number] Result 1 RRF (Normal) Comments: Routine respiratory roxanne Lower Respiratory Culture Final report (Normal) 6-Jee-781948:12 TSH (31479) Comments: PATIENT NOT FASTINGPERFORMED BY: [facility]6370 [facility] [id number] TSH 0.434 {uIU/mL} (Abnormal) Range: 0.450-4.500 4-Izo-672849:12 T3, FREE (TRIDOTHYRONINE) (15528) Comments: PATIENT NOT FASTINGPERFORMED BY: [facility]6370 [facility] [id number] Triiodothyronine,Free,Serum 3.0 pg/mL (Normal) Range: 2.0-4.4 8-Jhf-491015:12 T4, FREE (THYROXINE) (42699) Comments: PATIENT NOT FASTINGPERFORMED BY: [facility]6370 [facility] [id number]; review 05/15 T4,Free(Direct) 1.22 ng/dL (Normal) Range: 0.82-1.77 67-Hiz-316957:14 CBC-Complete Blood Cnt No Diff Comments: [facility] [address] [place], [place], [address] MPV 10.8 fL (Normal) Range: 6.2-12.0 PLT [...] 4.2-5.4 WBC 7.7 K/mm3 (Normal) Range: 4.4-11.0 83-Sah-200062:14 Liver Profile Comments: [facility] Ofs[address]wsrn[address] [facility] [address] [place], [place], [address] D BILI 0.11 mg/dL (Normal) Range: 0.00-0.30 T BILI 0.60 mg/dL (Normal) Range: 0.20-1.00 ALT 31 U/L (Normal) Range: 12-78 ALK P 51 U/L (Normal) Range: 45-117 AST 22 U/L (Normal) Range: 15-37 GLOB 3.3 g/dL (Normal) Range: 2.2-4.2 ALB 3.7 g/dL (Normal) Range: 3.4-5.0 Comments: Please note revised Albumin AND Globulin reference rangeeffective 2017. T PROT 7.0 g/dL (Normal) Range: 6.4-8.2 5-Jmf-096869:36 CBC-Complete Blood Cnt No Diff Comments: BONEZZI ORDERED TSH,FT4,FT3,AND TPOSTANDING [facility] [address] [place], [place], [address] MPV 10.7 fL (Normal) Range: 6.2-12.0 PLT [...] 4.2-5.4 WBC 6.9 K/mm3 (Normal) Range: 4.4-11.0 8-Rxd-451079:36 Free T3 Comments: [facility] [address] [place], [place], [address] FREE T3 2.6 pg/mL (Normal) Range: 2.18-3.98 8-Hdl-775805:36 Liver Profile Comments: [facility] [address] [place], [place], [address] D BILI 0.07 mg/dL (Normal) Range: 0.00-0.30 T BILI 0.40 mg/dL (Normal) Range: 0.20-1.00 ALT 32 U/L (Normal) Range: 12-78 ALK P 48 U/L (Normal) Range: 45-117 AST 15 U/L (Normal) Range: 15-37 GLOB 3.2 g/dL (Normal) Range: 2.2-4.2 ALB 3.7 g/dL (Normal) Range: 3.4-5.0 Comments: Please note revised Albumin AND Globulin reference rangeeffective 2017. T PROT 6.9 g/dL (Normal) Range: 6.4-8.2 3-Upo-154011:36 T4 Free Direct Comments: [facility] [address] [place], [place], [address] T4 FREE DIRECT 0.84 ng/dL (Normal) Range: 0.76-1.46 5-Agb-879842:36 Thyroid Peroxidase AB Comments: [facility] (refer to report for specific site)refer to report for address and phone number TPO AB 6688 11 {IU/mL} (Normal) Range: 0-34 Comments: Performed at: [address] [id number] Director: Jose L Patel PhD, Phone: [phone] 6-Qoy-864204:36 Thyroid Stim Hormone (TSH) Comments: [facility] [address] [place], [address] TSH 0.36 {uIU/mL} (Normal) Range: 0.358-3.74 68-Fvy-722199:03 CBC-Complete Blood Cnt No Diff Comments: [facility] [address] [place], [address] MPV 10.4 fL (Normal) Range: 6.2-12.0 [...] 4.2-5.4 WBC 9.2 K/mm3 (Normal) Range: 4.4-11.0 59-Wtg-749020:03 Liver Profile Comments: [facility] [address] [place], [address] D BILI 0.11 mg/dL (Normal) Range: 0.00-0.30 T BILI 0.40 mg/dL (Normal) Range: 0.20-1.00 ALT 30 U/L (Normal) Range: 12-78 ALK P 52 U/L (Normal) Range: 45-117 AST 14 U/L (Abnormal) Range: 15-37 GLOB 3.4 g/dL (Normal) Range: 2.2-4.2 ALB 4.1 g/dL (Normal) Range: 3.4-5.0 Comments: Please note revised Albumin AND Globulin reference rangeeffective 2017. T PROT 7.5 g/dL (Normal) Range: 6.4-8.2 15-Btq-030240:28 CBC-Complete Blood Cnt No Diff Comments: [facility] [address] [place], [place], [address] MPV 11.1 fL (Normal) Range: 6.2-12.0 PLT [...] 4.2-5.4 WBC 8.7 K/mm3 (Normal) Range: 4.4-11.0 25-Phi-778207:28 Liver Profile Comments: [facility] [address] [place], [place], [address] D BILI 0.13 mg/dL (Normal) Range: 0.00-0.30 T BILI 0.60 mg/dL (Normal) Range: 0.20-1.00 ALT 32 U/L (Normal) Range: 12-78 ALK P 44 U/L (Abnormal) Range: 45-117 AST 13 U/L (Abnormal) Range: 15-37 GLOB 3.2 g/dL (Normal) Range: 2.2-4.2 ALB 3.7 g/dL (Normal) Range: 3.4-5.0 Comments: Please note revised Albumin AND Globulin reference rangeeffective 2017. T PROT 6.9 g/dL (Normal) Range: 6.4-8.2 :57 CBC-Complete Blood Cnt No Diff Comments: [address] [place], [place], [address]) MPV 10.9 fL (Normal) Range: 6.2-12.0 PLT [...] 4.2-5.4 WBC 7.8 K/mm3 (Normal) Range: 4.4-11.0 :07 CBC-Complete Blood Cnt No Diff Comments: [facility] [address] [place], [place], [address]) MPV 11.2 fL (Normal) Range: 6.2-12.0 PLT [...] 4.2-5.4 WBC 9.1 K/mm3 (Normal) Range: 4.4-11.0 :07 Liver Profile Comments: [address] [place], [address] D BILI 0.09 mg/dL (Normal) Range: 0.00-0.30 T BILI 0.20 mg/dL (Normal) Range: 0.20-1.00 ALT 34 U/L (Normal) Range: 12-78 ALK P 55 U/L (Normal) Range: 45-117 AST 15 U/L (Normal) Range: 15-37 GLOB 3.3 g/dL (Normal) Range: 2.3-3.5 ALB 3.5 g/dL (Normal) Range: 3.4-5.0 T PROT 6.8 g/dL (Normal) Range: 6.4-8.2 62-Oig-305350:40 URINE ALISSON CULTURE-IDENTIFICATN Comments: PERFORMED BY: [facility] Uridft4171 [facility] [id number] Information: SRC: ([id number]) Antimicrobial MIHEAD (Normal) Comments: S = Susceptible; [...] mL (Abnormal) Urine Final report Culture,Comprehensive (Abnormal) 21-Nsq-163135:47 Urinalysis, Office ([id number]) UA - LEUKOCYTE ESTERASE Small (Normal) UA - NITRITE Negative (Normal) URINE UROBILINGN SRAVANI TIMED Normal mg/dL (Normal) UA - PROTEIN Negative mg/dL (Normal) UA - PH 6 (Abnormal) UA - BLOOD Negative (Normal) UA - SPECIFIC GRAVITY 1.005 (Normal) UA - KETONES Negative mg/dL (Normal) UA - BILIRUBIN Negative (Normal) UA - GLUCOSE Negative (Normal) 36-Rmw-260805:58 Basic Metabolic Profile (BMP) Comments: 'TROP' Serial specimen #1, #2, #3, or #4: [facility] [address]fkx[address] [place], [place], [address] GAP 10 (Normal) Range: 5-15 CO2 25.0 [...] 7-18 GLU 92 mg/dL (Normal) Range: 70-110 95-Cny-437037:58 CBC W/Diff, Automated Comments: [facility] [address] [place], [place], [address] Absolute Lymph 1.13 {X10_3/ul} (Normal) Range: 0.83-4.51 [...] #1, #2, #3, or #4: [facility] Psttodermj1735 [facility]. [place], [place], [address] TROPONIN-I 0.11 ng/mL (Abnormal) Comments: TROPONIN-I EXPECTED VALUES <0.05 NEGATIVE 0.06 - 0.59 AT RISK OF DE > OR = 0.60 SUGGEST DE :56 CBC W/Diff, Automated Comments: [facility] Pckpedrbrb7710 [facility]. [place], [place], [phone] Absolute Lymph 1.30 {X10_3/ul} (Normal) Range: 0.83-4.51 [...] 4.2-5.4 WBC 9.2 K/mm3 (Normal) Range: 4.4-11.0 41-Nie-895596:56 Comprehensive Metabolic Profil Comments: [facility] X[address]ks[address]le[address] [place], [place], [address] GAP 8 (Normal) Range: 5-15 CO2 29.0 [...] <126 mg/dLsuggests IMPAIRED HOMEOSTASIS per A.D.A. criteria. 91-Iio-892624:39 CBC W/Diff, Automated Comments: [facility] [address] [place], [address] Absolute Lymph 1.40 {X10_3/ul} (Normal) Range: 0.83-4.51 [...] 4.2-5.4 WBC 8.8 K/mm3 (Normal) Range: 4.4-11.0 89-Ccg-427233:39 Comprehensive Metabolic Profil Comments: [facility] [address] [place], [place], [address] GAP 7 (Normal) Range: 5-15 CO2 30.0 [...] 126 mg/dLsuggests DIABETES MELLITUS per A.D.A. criteria. 32-Gsz-956584:43 Homocysteine, Plasma (39821) Comments: PATIENT NOT FASTINGPERFORMED BY: [facility]Co[facility] CenterHcsyyk8351 [facility] [id number] Homocyst(e)ine, Plasma 9.3 umol/L (Normal) Range: 0.0-15.0 02-Wim-211271:12 CRP, High Sensitivity Cardiac Comments: [facility] [address] [place], [place], [address] CRP HIGH SENS 1.10 mg/L (Normal) Comments: Low Relative Risk of CVD <1.0 mg/L Average Relative Risk of CVD 1.0 - 3.0 mg/L High Relative Risk of CVD >3.0 mg/L 01-Dcu-200542:12 Erythrocyte Sed Rate Comments: [facility] [address] [place], [place], [address] SED RATE 24 mm/h (Normal) Range: 0-30 4-Snq-088041:28 CBC WITH MANUAL DIFF (57647) Comments: PATIENT NOT FASTINGPERFORMED BY: [facility] Exttej8925 [facility] [id number] Immature Grans (Abs) 0.0 {x10E3/uL} (Normal) Range: [...] 3.77-5.28 WBC 7.3 {x10E3/uL} (Normal) Range: 3.4-10.8 5-Ymc-773708:28 Metabolic Panel, Basic Comments: PATIENT NOT FASTINGPERFORMED BY: [facility]CoSaint [facility] CenterPxkaee7225 [facility] [id number]; will review at 09/04 appt (45527) Calcium, Serum 9.4 mg/dL (Normal) Range: 8.7-10.2 [...] Glucose, Serum 107 mg/dL (Abnormal) Range: 65-99 16-Efb-424647:31 CBC With Differential/Platelet Comments: PATIENT NOT FASTINGPERFORMED BY: [facility]Co[facility] CenterTkyjso5913 [facility] [id number] Immature Grans (Abs) 0.0 {x10E3/uL} Range: 0.0-0.1 [...] ANGELA (Normal) Comments: PATIENT NOT FASTINGPERFORMED BY: [facility] Ihluzy4058 [facility] [id number] 13:31 Comments: WRITTEN AUTHORIZATION RECEIVED.AUTHORIZATION RECEIVED FROM JACKIE BRUNO LPN 75-12-1268GHDOEG BY RADHA EMMANUEL 87-Hfu-818301:31 CBC (Auto) (17966) Comments: PATIENT NOT FASTINGPERFORMED BY: [facility]6370 [facility] [id number] Platelets 416 {x10E3/uL} (Abnormal) Range: 150-379 RDW 17.2 % (Abnormal) Range: 12.3-15.4 MCHC 32.4 g/dL (Normal) Range: 31.5-35.7 MCH 27.0 pg (Normal) Range: 26.6-33.0 MCV 83 fL (Normal) Range: 79-97 Hematocrit 36.7 % (Normal) Range: 34.0-46.6 Hemoglobin 11.9 g/dL (Normal) Range: 11.1-15.9 RBC 4.40 {x10E6/uL} (Normal) Range: 3.77-5.28 WBC 12.7 {x10E3/uL} (Abnormal) Range: 3.4-10.8 01-Irr-504028:31 Magnesium (74145) Comments: PATIENT NOT FASTINGPERFORMED BY: [facility]6370 [facility] [id number] Magnesium, Serum 2.0 mg/dL (Normal) Range: 1.6-2.3 19-Ltb-823979:31 Renal function Panel (72298) Comments: PATIENT NOT FASTINGPERFORMED BY: [facility]6370 [facility] [id number] Albumin, Serum 4.1 g/dL (Normal) Range: 3.5-5.5 [...] Glucose, Serum 99 mg/dL (Normal) Range: 65-99 6-Mew-482049:16 Lactic Acid Comments: [facility] [address] [place], [place], [address] LACTIC ACID 1.2 mmol/L (Normal) Range: 0.4-2.0 :52 BNP,B-Type NATRIURETIC PEPTIDE Comments: [facility] [address] [place], [place], [address] B-TYPE BRENT PEP 89.7 pg/mL (Normal) Range: 0-100 :52 CBC W/Diff, Automated Comments: [facility] [address]soz[address] [place], [place], [address] Absolute Lymph 1.12 {X10_3/ul} (Normal) Range: 0.83-4.51 [...] 4.2-5.4 WBC 6.8 K/mm3 (Normal) Range: 4.4-11.0 :52 Comprehensive Metabolic Profil Comments: 'TROP' Serial specimen #1, #2, #3, or #4: [facility] [address]qhep[address] [place], [place], [address] GAP 5 (Normal) Range: 5-15 CO2 24.0 mmol/L (Normal) Range: 21.0-32.0 CL 100 mmol/L (Normal) Range: 98-107 K 2.8 mmol/L (Abnormal) Range: 3.5-5.1 NA 129 mmol/L (Abnormal) Range: 136-145 Comments: Critical Result(s) Called at: 10:33:42 08/05/2016 by: Jeison Flores Donal BILI 0.60 mg/dL (Normal) Range: 0.20-1.00 ALT [...] #1, #2, #3, or #4: [facility] [address]xdtc[address], [address] TROPONIN-I 0.73 ng/mL (Abnormal) Comments: TROPONIN-I EXPECTED VALUES <0.05 NEGATIVE 0.06 - 0.59 AT RISK OF DE > OR = 0.60 SUGGEST DE :43 Base Excess ISTAT Comments: [facility] LaboratoryPoint of [address] [place] [address] BE ISTAT 1 mmol/L (Normal) :43 Bicarbonate ISTAT Comments: [place] [address] [place] [address] HCO3 ISTAT 26 mmol/L (Normal) Range: 22-26 Comments: Site = R RadialDevice = Vent MaskFIO2 = 40Results To = ED MDTime Given = 949 :43 Blood Gas Specimen Type Comments: [place] [address] [place] [address] BLD GAS TYPE ART (Normal) :43 pCO2 - ISTAT 40.0 {mmHg} (Normal) Comments: [place] [address] [place] [id number] Range: 35-45 :43 pH - I-STAT 7.42 (Normal) Comments: [place] [address] [place] [address] Range: 7.35-7.45 :43 PO2 I-STAT 68 {mmHG} (Abnormal) Comments: [place] [address] [place] [address] Range: 75-100 :43 SO2 ISTAT 94 % (Abnormal) Comments: [place] [address] [place] [address] Range: 95-99 :43 Total Carbon Dioxide ISTAT Comments: [place] [address] [address] [place] [address] TOTAL CO2 ISTAT 27 mmol/L (Normal) 95-Xoc-456943:06 CBC W/Diff, Automated Comments: [place] [address] [place], [address] Absolute Lymph 1.60 {X10_3/ul} (Normal) Range: [...] 4.2-5.4 WBC 6.3 K/mm3 (Normal) Range: 4.4-11.0 32-Vtl-285584:06 Comprehensive Metabolic Profil Comments: [facility] [address] [place], [place], [address] GAP 5 (Normal) Range: 5-15 CO2 30.0 [...] 7-18 GLU 102 mg/dL (Normal) Range: 70-110 10-Vmv-073257:30 PAP I-G w/rfx hrHPV Comments: CYTOLOGY INFORMATION:- CLINICAL INFORMATION:- DATE LMP/MENOPAUSE: MENOPAUSE- COLLECTION VIAL: Thin Prep Vial- BOTTOM SANDER SOURCE: CERVICAL/ENDOCERVICAL- COLLECTION TECHNIQUE: BRUSH/SPATULACYTOLOGY INFORMATION :- CLINICAL INFORMATION:- DATE LMP/MENOPAUSE: MENOPAUSE- COLLECTION VIAL: Thin Prep Vial- BOTTOM SANDER SOURCE: CERVICAL/ENDOCERVICAL- COLLECTION TECHNIQUE: BRUSH/SPATULASpecimen Comment: [id number] saira Comment: No. of containers..01 CYTYC Thin Prep VialLabCorp (refer to report for specific site)refer to report for address and phone number HPV RFLX Comment (Normal) Comments: The HPV DNA reflex criteria were not met with this specimenresult therefore, no HPV testing was performed.Performed at: [address] guerratonJessica [id number] Director: Selene Munoz MD, Phone: [phone] PAPSMR Comment (Normal) Comments: The Pap smear [...] system. PERFORM Comment (Normal) Comments: Dioni Pereira, Environmental Science Technician (ASCP) ADEQ Comment (Normal) Comments: Satisfactory for evaluation. Endocervical and/or squamous metaplasticcells (endocervical component) are present. DIAGN Comment (Normal) Comments: NEGATIVE FOR INTRAEPITHELIAL LESION AND MALIGNANCY. 01-Anq-561606:09 CBC W/Diff, Automated Comments: [facility] [address]rs[address] [place], [place], [address] Absolute Lymph 1.61 {X10_3/ul} (Normal) Range: 0.83-4.51 [...] 4.2-5.4 WBC 7.3 K/mm3 (Normal) Range: 4.4-11.0 77-Guj-513458:09 Comprehensive Metabolic Profil Comments: [facility] [address] [place], [place], [address] GAP 8 (Normal) Range: 5-15 CO2 30.0 [...] 7-18 GLU 90 mg/dL (Normal) Range: 70-110 08-Auz-634946:09 Lipid Profile Comments: [facility] [address] [place], [place], [address] VLDL 11 mg/dL (Normal) Range: 5-40 LDL [...] 200-240 mg/dL Borderline >240 mg/dL High Risk 48-Nax-903005:56 Ferritin (86687) Comments: PATIENT NOT FASTINGPERFORMED BY: [facility] Tuojwi5500 [facility] [id number] Information: NURSE DRAW Ferritin, Serum 35 ng/mL (Normal) Range: 15-150 77-Rbk-500802:06 Lipid Profile Comments: [facility] [address] [place], [place], [address] VLDL 14 mg/dL (Normal) Range: 5-40 LDL [...] 200-240 mg/dL Borderline >240 mg/dL High Risk 33-Pma-546658:11 CBC W/Diff, Automated Comments: [facility] [address] [place], [place], [address] Absolute Lymph 1.06 {X10_3/ul} (Normal) Range: 0.83-4.51 [...] 4.2-5.4 WBC 9.4 K/mm3 (Normal) Range: 4.4-11.0 50-Zfb-397574:11 Comprehensive Metabolic Profil Comments: [facility] [address] [place], [place], [address] GAP 9 (Normal) Range: 5-15 CO2 29.0 [...] 7-18 GLU 100 mg/dL (Normal) Range: 70-110 58-Ror-414952:59 CBC W/Diff, Automated Comments: [facility] [address] [place], [place], [address] Absolute Lymph 1.33 {X10_3/ul} (Normal) Range: 0.83-4.51 [...] 4.2-5.4 WBC 3.7 K/mm3 (Abnormal) Range: 4.4-11.0 27-Gqm-033040:59 Comprehensive Metabolic Profil Comments: [facility] [address] [place], [place], [address] GAP 7 (Normal) Range: 5-15 CO2 28.0 [...] 7-18 GLU 84 mg/dL (Normal) Range: 70-110 4-Mif-024125:15 CBC W/Diff, Automated Comments: [facility] [address] [place], [place], [address] Absolute Lymph 0.51 {X10_3/ul} (Abnormal) Range: 0.83-4.51 [...] 4.2-5.4 WBC 9.8 K/mm3 (Normal) Range: 4.4-11.0 3-Yhp-737971:15 Comprehensive Metabolic Profil Comments: [facility] [address] [place], [place], [address] GAP 3 (Abnormal) Range: 5-15 CO2 28.0 [...] 7-18 GLU 107 mg/dL (Normal) Range: 70-110 3-Smj-540739:15 Quantiferon TB-Gold Comments: [facility] (refer to report [...] go to cdc.gov/tb for further details.Performed at: CB - LabCoKatherine [facility]ille [id number] [place], [place] [id number] Director: Jose L Patel PhD, Phone: [phone] QFT AG - NIL 0 {IU/mL} (Normal) [...] of cells for the productionof interferon gamma. 9-Pzw-306150:43 CBC W/Diff, Automated Comments: [facility] Ozdhqqrvvy5903 [facility] [place], [place], [address] Absolute Lymph 0.86 {X10_3/ul} (Normal) Range: 0.83-4.51 [...] 4.2-5.4 WBC 6.3 K/mm3 (Normal) Range: 4.4-11.0 7-Oyx-387876:43 Comprehensive Metabolic Profil Comments: [facility] [address] [place], [address] GAP 9 (Normal) Range: 5-15 CO2 29.0 [...] <126 mg/dLsuggests IMPAIRED HOMEOSTASIS per A.D.A. criteria. 75-Joc-404105:00 CORTISOL SERUM Comments: [facility] [address] [place], [place], [address] CORTISOL 11.80 ug/dL (Normal) Range: 3.09-22.40 Comments: Adult (AM) 4.30 - 22.40 ug/dL Adult (PM) 3.09 - 16.66 ug/dL 69-Uka-758742:00 DHEA Sulfate Comments: Has Patient had Radioactive Injection for X-ray?: N[facility] (refer to report for specific site)refer to report for address and phone number DHEA SULF 4020 35.6 ug/dL (Abnormal) Range: 41.2-243.7 Comments: Performed at: [address] [id number] Director: Jose L Patel PhD, Phone: [phone] 48-Tev-482355:00 Estradiol Comments: [facility] [address]ima[address] [place], [place], [address] ESTRADIOL 11.4 pg/mL (Normal) Comments: NORMAL REFERENCE [...] SHOULD BE USED TO DETERMINE ESTRADIOL CONCENTRATION. 63-Fab-604132:00 Free T3 Comments: [facility] [address]ra[address] [place], [place], [address] FREE T3 3.1 pg/mL (Normal) Range: 2.18-3.98 93-Bmt-226543:00 Hemoglobin A1c Comments: [place] [address] [address] [place], [address] HGB A1C 6.1 % (Normal) Range: 4.2-6.3 78-Wkq-374842:00 Progesterone Level Comments: [address] [place], [address] Progesterone 2.17 ng/mL (Normal) Comments: Progesterone Reference Table: UNITS Female: Follicular 0.15 - 1.40 ng/mL Luteal 3.34 - 25.56 ng/mL Mid-luteal 4.44 - 28.03 ng/mL Postmenopausal 0.0 - 0.73 ng/mL : 1st Trimester 11.22 - 90.00 ng /mL 2nd Trimester 25.55 - 89.40 ng/mL 3rd Trimester 48.40 -422.50 ng/mL [id number] T4 Free Direct Comments: [address] [place], [address] T4 FREE DIRECT 0.80 ng/dL (Normal) Range: 0.76-1.46 [id number] Testosterone, Serum Total Comments: [address] [place] [place], [address] Testosterone 20 ng/dL (Normal) Range: 14-76 [id number] Thyroid Stim Hormone (TSH) Comments: [address] [place], [id number] TSH 0.46 {uIU/mL} (Normal) Range: 0.358-3.74 [id number]:30 PAP I-G w/rfx hrHPV Comments: CYTOLOGY INFORMATION:- CLINICAL INFORMATION:- DATE LMP/MENOPAUSE: MENOPAUSE- COLLECTION VIAL: Thin Prep Vial- BOTTOM SANDER SOURCE: CERVICAL/ENDOCERVICAL- COLLECTION TECHNIQUE: BRUSH/SPATULASpecimen Comment: [id number] Comment: No. of containers..01 CYTYC Thin Prep VialLabCorp (refer to report for specific site)refer to report for address and phone number HPV RFLX Comment (Normal) Comments: The HPV DNA reflex criteria were not met with this specimenresult therefore, no HPV testing was performed.Performed at: [address] [place] [id number] Director: Selene Munoz MD, Phone: [phone] PAPSMR Comment (Normal) Comments: The Pap smear [...] system. PERFORM Comment (Normal) Comments: Luisa Washington, Environmental Science Technician (ASCP) ADEQ Comment (Normal) Comments: Satisfactory for evaluation. No endocervical component is identified. DIAGN Comment (Normal) Comments: NEGATIVE FOR INTRAEPITHELIAL LESION AND MALIGNANCY. :26 D-Dimer Quantitative (DVT/PE) Comments: [facility] [id number] [facility] [place], [address] D-DIMER QUANT 0.30 {FEU/ug/m} (Normal) Range: 0.27-0.49 Comments: NORMAL D-Dimer level (<0.50) indicates no DVT or PE. :25 CK-MB Quantitative and Index Comments: 'TROP' Serial specimen #1, #2, #3, or #4: INT'CKMB' Serial Specimen #1, #2 or #3? [facility] [id number] [facility] [place], [address] CKRI 1.3 % (Normal) Range: 0.0-1.4 Comments: RELATIVE INDEX >1.5% IS PRESUMPTIVELY POSITIVE CPKMB 2.2 ng/mL (Normal) Range: 0.0-5.0 Comments: CK-MB and RI Interpretation MB Relative Index Non-AMI <or= 5 NA Indeterminate > 5 <or= 4 AMI > 5 > 4 CPK TOTAL 170 U/L (Normal) Range: 26-192 1-Umb-683172:25 Troponin I (77895) Comments: 'TROP' Serial specimen #1, #2, #3, or #4: INT'CKMB' Serial Specimen #1, #2 or #3? [facility] [address] [place], [place], [id number] TROPONIN-I < 0.02 ng/mL (Normal) Comments: TROPONIN-I EXPECTED VALUES <0.05 NEGATIVE 0.06 - 0.59 AT RISK OF DE > OR = 0.60 SUGGEST DE 5-Jbz-903902:13 Urinalysis, Office (90304) UA - LEUKOCYTE ESTERASE Negative (Normal) UA - NITRITE Negative (Normal) URINE UROBILINGN SRAVANI TIMED Normal mg/dL (Normal) UA - PROTEIN Negative mg/dL (Normal) UA - PH 6 (Abnormal) UA - BLOOD Negative (Normal) UA - SPECIFIC GRAVITY 1.020 (Normal) UA - KETONES Negative mg/dL (Normal) UA - BILIRUBIN Negative (Normal) UA - GLUCOSE Negative (Normal) 84-Fyp-759221:41 CBC W/Diff, Automated Comments: [facility] Nzxwuochcn3847 [facility] [place], [address] Absolute Lymph 1.18 {X10_3/ul} (Normal) Range: 0.83-4.51 [...] 4.2-5.4 WBC 8.8 K/mm3 (Normal) Range: 4.4-11.0 98-Tio-413356:41 Comprehensive Metabolic Profil Comments: [facility] [address] [place], [address] GAP 9 (Normal) Range: 5-15 CO2 27.0 [...] 7-18 GLU 98 mg/dL (Normal) Range: 70-110 :41 CBC W/Diff, Automated Comments: [facility] [address] [place], [address] Absolute Lymph 1.54 {X10_3/ul} (Normal) Range: 0.83-4.51 [...] 4.2-5.4 WBC 6.6 K/mm3 (Normal) Range: 4.4-11.0 4-Bga-745118:41 Comprehensive Metabolic Profil Comments: [facility] [address] [place], [place], [address] GAP 7 (Normal) Range: 5-15 CO2 30.0 [...] 7-18 GLU 102 mg/dL (Normal) Range: 70-110 36-Fii-952466:44 CBC W/Diff, Automated Comments: [facility] [address] [place], [place], [id number] Absolute Lymph 3.85 {X10_3/ul} (Normal) Range: 0.83-4.51 [...] 4.2-5.4 WBC 10.7 K/mm3 (Normal) Range: 4.4-11.0 12-Kjn-758542:44 Comprehensive Metabolic Profil Comments: ORDERED LIPID,CMPDRMERA ORDERED CMP,[facility]WM[facility] [address]ylkop5592 [place], [address] GAP 8 (Normal) Range: 5-15 CO2 29.0 [...] 7-18 GLU 78 mg/dL (Normal) Range: 70-110 06-Wki-144563:44 Lipid Profile Comments: ORDERED LIPID,CMP ORDERED CMP,CBCDWMer[facility] [address]qybx[address] [facility] [place], [address] VLDL 33 mg/dL (Normal) Range: 5-40 LDL [...] 200-240 mg/dL Borderline >240 mg/dL High Risk 3-Avh-117306:46 CBC W/Diff, Automated Comments: [facility] [address] [place], [place], [address] Absolute Lymph 1.65 {X10_3/ul} (Normal) Range: 0.83-4.51 [...] 4.2-5.4 WBC 12.5 K/mm3 (Abnormal) Range: 4.4-11.0 4-Nci-383645:46 Comprehensive Metabolic Profil Comments: [facility] [place] [facility] [address] [place], [place], [address] GAP 9 (Normal) Range: 5-15 CO2 31.0 [...] 126 mg/dLsuggests DIABETES MELLITUS per A.D.A. criteria. 1-Gbt-832393:46 Culture, Sputum Comments: [facility] [address] [place], [address] CUSP See Note (Normal) Comments: Gram StainAcceptable Specimen? Yes (<25 Epithelial cells per/lpf) Gram Stain Rare Gram positive rods 3+ Gram positive cocci 3+ White Blood Cells Rare Epithelial cells Resp. CultureMixed normal respiratory roxanne. No Streptococcus pneumoniae, beta-hemolytic Streptococcus or Staphylococcus aureus isolated. 77-Ybu-919813:13 CBC W/Diff, Automated Comments: Test performed at:[facility] [address] [place] [address] Absolute Lymph 1.78 {X10_3/ul} (Normal) [...] 4.2-5.4 WBC 5.3 K/mm3 (Normal) Range: 4.4-11.0 23-Dwl-581036:13 Comprehensive Metabolic Profil Comments: Test performed at:[facility] Kn[address]geicgm[address] [place], [place] [id number] GAP 7 (Normal) Range: 5-15 CO2 26.0 [...] Comments: Please note revised CREATININE reference range dybsepkqq55/22/2015. BUN 18 mg/dL (Normal) Range: 7-18 GLU 124 mg/dL (Abnormal) Range: 70-110 Comments: Fasting Glucose result from 110 to <126 mg/dLsuggests IMPAIRED HOMEOSTASIS per A.D.A. criteria. 2-Pvw-778559:5 ENDOMETRIAL BX/CURETTINGS See Note (Normal) Comments: Test performed at:[facility] [address] [address] 4 Comments: Patient: TIN BLACKWOOD : 1960 (53/F) Acct Num: [id number] Phys: Allie Bales MD Unit Num: [id number] [place] [facility] [place]: [id number] Received: 11/06/14 - 1230 Spec Type: ENDOM BX/C TISSUES TISSUES: GROSS DESCRIPTION Received is one container labeled with the patient name and designated endometrial curettings. The specimen consists of multiple fragments o f hemorrhagic soft tissue measuring in aggregate 5 x 2 x 0.2 cm. The entire specimen is submitted in two cassettes. / SJ:yi 11/06/14 TC:5 CPT: 99885 HEADER OPERATION: Hysteroscopy, diagnosti c, D AND C PRE-OP DIAGNOSIS: Menorrhagia, thickened endometrium TISSUE SUBMITTED: Endometrial curettings MICROSCOPIC DIAGNOSIS Endometrium, curettings: Secretory endometrium. AM:s l 11/07/14 Signed Michael [facility] 11/07/14 <signature on file> 4-Xrz-046764:48 Partial Thromboplast Time Comments: Test performed at:[facility] [place] [facility] [address] [place] [address] PTT 26.6 s (Normal) Range: 24.1-36.2 5-Fqe-034962:48 Prothrombin Time w/INR Comments: Test performed at:[facility] [place] [facility] [address] [place] [address] INR 0.9 (Normal) PROTIME 12.2 s (Normal) Range: 11.7-14.9 :18 ,Urine Comments: Order Date: 11/06/14Has pt arrived? YTest performed at:[facility] [place] [facility] [address] [place] [address] HCGUQUAL Negative {Negative} (Normal) Comments: Very dilute urine specimens, as indicated by a low specificgravity, may not contain telephone sales representative levels of hCG.If is still suspected, a first morning urinespecimen should be collected 48 hours later and tested. :26 Estradiol Comments: Test performed at:[facility] [place] [facility] [address] [place] [address] ESTRADIOL 13.1 pg/mL (Normal) Comments: NORMAL REFERENCE RANGES FEMALE FOLLICULAR 21.4 - 164.8 pg/mL MID-CYCLE PEAK 49.9 - 367.2 pg/mL LUTEAL 40.2 - 259.0 pg/mL POST-MENOPAUSAL ON MHT <11.0 - 462.1 pg/mL NOT ON MHT <11.0 - 58.3 pg/mL MALE <11.0 - 52 .5 pg/mLNEW TEST METHOD AND REFERENCE RANGE SEPTEMBER 22, 2011:26 Free T3 Comments: Test performed at:[facility] [address]ew[address]braxik[address] [facility] [place] [address] FREE T3 3.0 pg/mL (Normal) Range: 2.18-3.98 :26 Hemoglobin A1c Comments: Test performed at:[facility] Wytwgezkav[address] [facility] [place] [address] ; ordered by other doctor HGB A1C 5.7 % (Normal) Range: 4.2-6.3 :26 Progesterone Level Comments: Test performed at:[facility] Segtyerdys5345 [facility] [place] [address] Progesterone 0.34 ng/mL (Normal) Comments: Progesterone Reference Table: UNITS Female: Follicular 0.15 - 1.40 ng/mL Luteal 3.34 - 25.56 ng/mL Mid-luteal 4.44 - 28.03 ng/mL Postmenopausal 0.0 - 0.73 ng/mL : 1st Trimester 11.22 - 90.00 ng /mL 2nd Trimester 25.55 - 89.40 ng/mL 3rd Trimester 48.40 -422.50 ng/mL :26 T4 Free Direct Comments: Test performed at:[facility] [address] [place] [address] T4 FREE DIRECT 0.77 ng/dL (Normal) Range: 0.76-1.46 :26 Testosterone, Serum Total Comments: Test performed at:[facility] [address] [place] [address] Testosterone 30 ng/dL (Normal) Range: 14-76 Comments: ADDENDA: ordered by Dr. Bales :26 Thyroid Stim Hormone (TSH) Comments: Test performed at:[facility] [address] [place] [address] TSH 0.84 {uIU/mL} (Normal) Range: 0.358-3.74 :03 17-Hydroxypregnenolone, MS Comments: PATIENT NOT FASTINGPERFORMED BY: salgomed Tfyqch5069 [facility] [place] [id number] BY: ES [employer] Lkriilnlxbimz4853 [facility] [id number] 17 [place] Pregnenolone, 14 ng/dL (Abnormal) Comments: Reference Range:Adults: 53 - 357 Serum, MS hCG,Beta Negative m[iU]/mL Comments: PATIENT NOT FASTINGPERFORMED BY: [employer] [place] Atinhh1623 [place] [facility] HospitalSummizepasc[facility] [place] [id number] BY: ES [employer] Pbpttrscrdbpz2994 [facility] [id number] 2:03 Subunit,Qual,Serum (Normal) Prolactin 10.9 ng/mL (Normal) Comments: PATIENT NOT FASTINGPERFORMED BY: [facility] [facility] Cjjtvv8301 [place] [facility] [place] [id number] BY: NERISSA DumontRobert Ville 3164901 [facility] [id number] 2:03 Range: 4.8-23.3 0-Hlt-399876:03 Prothrombin Time (PT) Comments: PATIENT NOT FASTINGPERFORMED BY: [place] 7875270 [facility] [id number] BY: NERISSA Dumont[address] [id number] 11Clinical Information: [id number], [id number] Prothrombin Time 10.5 {sec} (Normal) Range: 9.1-12.0 INR 1.0 (Normal) Range: 0.8-1.2 Comments: Reference interval is for non-anticoagulated patients. . Suggested INR therapeutic range for Vitamin K anta gonist therapy: Standard Dose (moderate intensity therapeutic range): 2.0 - 3.0 Higher intensity therapeutic range 2.5 - 3.5 6-Iel-381950:03 PTT, Activated Comments: PATIENT NOT FASTINGPERFORMED BY: [place] 7875270 [facility] [id number] BY: Nerissa[address] [id number] aPTT 27 {sec} (Normal) Range: 24-33 Comments: This test has not been validated for monitoring unfractionated heparintherapy. aPTT-based therapeutic ranges for unfractionated heparintherapy have not been established. For general guidelines onHeparin monitoring, refer to the [facility] Directory of Services. 1-Bak-321266:03 Thyroxine (T4) Free, Comments: PATIENT NOT FASTINGPERFORMED BY: [place] 7875270 [facility] [id number] BY: Tim[address] [id number] Direct, S T4,Free(Direct) 0.87 ng/dL (Normal) Range: 0.82-1.77 3-Ncm-719802:0 TSH 0.723 {uIU/mL} Comments: PATIENT NOT FASTINGPERFORMED BY: [address] [id number] BY: NERISSA Bautista [address] [place] [address] [id number] 3 (Normal) Range: 0.450-4.500 2-Bns-691783:01 CBC W/Diff, Automated Comments: Test performed at:[facility] G[address]icr[address] [place] [address] Absolute Lymph 1.51 {X10_3/ul} (Normal) [...] 4.2-5.4 WBC 5.7 K/mm3 (Normal) Range: 4.4-11.0 3-Tru-139787:01 Comprehensive Metabolic Profil Comments: Test performed at:[facility] [address] [place] [address] GAP 7 (Normal) Range: 5-15 [...] 7-18 GLU 94 mg/dL (Normal) Range: 70-110 80-Eur-425476:09 Urine Test, Office (26920) Urine Test, Office Negative (Normal) 52-Syd-774207:09 Urinalysis, Office (18396) UA - LEUKOCYTE ESTERASE Negative (Normal) UA - NITRITE Negative (Normal) URINE UROBILINGN SRAVANI TIMED Normal mg/dL (Normal) UA - PROTEIN Negative mg/dL (Normal) UA - PH 6 (Abnormal) UA - BLOOD Negative (Normal) UA - SPECIFIC GRAVITY 1.025 (Normal) UA - KETONES Negative mg/dL (Normal) UA - BILIRUBIN Negative (Normal) UA - GLUCOSE Negative (Normal) 1-Foj-081442:14 CBC W/Diff, Automated Comments: Test performed at:[facility] [address] [place] [address] Absolute Lymph 2.05 {X10_3/ul} (Normal) Range: 0.83-4.51 [...] 4.2-5.4 WBC 8.6 K/mm3 (Normal) Range: 4.4-11.0 9-Itp-698875:14 Comprehensive Metabolic Profil Comments: Test performed at:[facility] [address]vlewpmx[address] [place], [place] [address] GAP 2 (Abnormal) Range: 5-15 CO2 32.0 [...] 7-18 GLU 102 mg/dL (Normal) Range: 70-110 59-Oit-557390:18 CBCD ALC 1.55 {X10_3/ul} (Normal) Range: 0.83-4.51 [...] 7-18 GLU 92 mg/dL (Normal) Range: 70-110 :31 CBCD ALC 1.45 {X10_3/ul} (Normal) Range: 0.83-4.51 [...] 4.2-5.4 WBC 5.8 K/mm3 (Normal) Range: 4.4-11.0 5-Ron-359926:31 CMP GAP 5 (Normal) Range: 5-15 CO2 [...] Range: 70-110 :50 Blood Glucose , Office (30599) Blood Glucose , Office 143 (Normal) Comments: non-fasting :50 HgA1C , Office (21819) HgA1C , Office 5.8 % (Normal) Range: 4.6 - 7.1 56-Itt-709807:36 ISIAH Negative (Normal) Comments: Performed at: - [address] [id number] Director: Ricardo Pace MD, Phone: [phone] 17-Doe-097011:36 CCP < 1 {units} (Normal) Range: 0-19 Comments: Negative <20Weak positive 20 - 39Moderate positive 40 - 59Strong positive >59Performed at: - [facility] [id number] Director: Stepan Hernandez MD, Phone: [phone] 52-Tbo-275402:36 CRP 3.36 mg/L (Abnormal) Range: 0.0-3.0 Comments: [...] (Normal) Range: 0.358-3.74 :46 HgA1C , Office (16220) HgA1C , Office 5.7 % (Normal) Range: 4.6 - 7.1 :46 Blood Glucose , Office (93783) Blood Glucose , Office 106 (Normal) :51 HgA1C , Office (09965) HgA1C , Office 5.8 % (Normal) Range: 4.6 - 7.1 :51 Blood Glucose , Office (50635) Blood Glucose , Office 122 (Normal) Comments: non-fasting :05 HgA1C , Office (55580) HgA1C , Office 5.8 % (Normal) Range: 4.6 - 7.1 :04 Blood Glucose , Office (46946) Blood Glucose , Office 137 (Normal) :25 HgA1C , Office (37196) HgA1C , Office 5.7 % (Normal) Range: 4.6 - 7.1 :25 Blood Glucose , Office (31577) Blood Glucose , Office 96 (Normal) :33 HEPATIC FUNCTION PANEL Comments: PATIENT NOT FASTINGPERFORMED BY: [facility]CoSaint Francis Medical CenterAwnttc0958 [facility] [id number] (94173) Alkaline Phosphatase, S 46 [iU]/L (Normal) Range: [...] Total, Serum 6.7 g/dL (Normal) Range: 6.0-8.5 74-Dae-298129:33 Renal function Panel Comments: PATIENT NOT FASTINGPERFORMED BY: [facility] Vywhbr1072 [facility] [id number] Information: [id number] DRAW FEE [id number] (76593) Albumin, Serum 4.3 g/dL (Normal) Range: 3.5-5.5 [...] Glucose, Serum 105 mg/dL (Abnormal) Range: 65-99 62-Kfg-781648:04 Urinalysis, Office (93515) UA - BILIRUBIN Negative (Normal) UA - BLOOD Negative (Normal) UA - GLUCOSE Negative (Normal) UA - KETONES Negative mg/dL (Normal) UA - LEUKOCYTE ESTERASE Negative (Normal) UA - NITRITE Negative (Normal) UA - PH 6.0 (Normal) UA - PROTEIN Negative mg/dL (Normal) UA - SPECIFIC GRAVITY 1.025 (Normal) URINE UROBILINGN SRAVANI TIMED Normal mg/dL (Normal) 19-Mlb-156136:41 HgA1C , Office (74056) HgA1C , Office 5.9 % (Normal) Range: 4.6 - 7.1 :42 LQDPAP [id number] PAPSMR Comment (Normal) Comments: The Pap smear [...] no HPV testing was performed. .Performed at: [address] [id number] Director: John Echeverria MD, Phone: [phone] COMM . (Normal) DIAGN Comment (Normal) Comments: NEGATIVE FOR INTRAEPITHELIAL LESION AND MALIGNANCY.Satisfactory for evaluation. Endocervical and/or squamous metaplasticcells (endocervical component) are present.Holly Reed, Environmental Science Technician (ASCP)T his liquid based ThinPrep(R) pap test was screened withthe use of an image guided system. 49-Ahb-174648:20 TSH (30918) Comments: PATIENT WAS FASTINGPERFORMED BY: MobibeamSaint Francis Medical CenterLrpbfl6423 [facility] [id number] TSH 2.160 {uIU/mL} (Normal) Range: 0.450-4.500 50-Zek-955120:20 MICROALBUMIN: CREATININE RATIO Comments: PATIENT WAS FASTINGPERFORMED BY: YETI GroupSaint Francis Medical CenterXnglio6893 [facility] [id number] (34372) AND (16454) Microalb/Creat Ratio 2.3 {mg/g_creat} (Normal) Range: 0.0-30.0 Microalbumin, Urine 1.6 ug/mL (Normal) Range: 0.0-17.0 Creatinine, Urine 70.5 mg/dL (Normal) Range: 15.0-278.0 09-Elx-568312:20 METABOLIC PANEL, COMPREHENSIVE Comments: PATIENT WAS FASTINGPERFORMED BY: LabCoSaint Francis Medical CenterXdnilh3987 [facility] [id number] (17085) ALT (SGPT) 19 [iU]/L (Normal) Range: 0-40 [...] Glucose, Serum 109 mg/dL (Abnormal) Range: 65-99 54-Zgv-385138:20 LIPID PANEL (99019) Comments: PATIENT WAS FASTINGPERFORMED BY: NILE [facility] Fylxxj2573 [facility] [id number] LDL/HDL Ratio 1.4 {ratio_units} (Normal) Range: 0.0-3.2 LDL Cholesterol Calc 108 mg/dL (Abnormal) Range: 0-99 VLDL Cholesterol Zaria 16 mg/dL (Normal) Range: 5-40 HDL Cholesterol 78 mg/dL (Normal) Comments: According to ATP-III Guidelines, HDL-C >59 mg/dL is considered anegative risk factor for CHD. Cholesterol, Total 202 mg/dL (Abnormal) Range: 100-199 Triglycerides 82 mg/dL (Normal) Range: 0-149 17-Lmw-642261:20 CBC WITH MANUAL DIFF Comments: PATIENT WAS FASTINGPERFORMED BY: LabCoSaint Francis Medical CenterBhjmgi3923 [facility] [id number] Information: ADD [id number] AND DRAW FEE 08 2081 (23108) Immature Grans (Abs) 0.0 {x10E3/uL} (Normal) Range: [...] 3.80-5.10 WBC 5.2 {x10E3/uL} (Normal) Range: 4.0-10.5 30-Zcs-092637:05 URINE ALISSON CULTURE-SRAVANI COL Comments: PATIENT NOT FASTINGPERFORMED BY: LabCoSaint Francis Medical CenterPpocpg5007 [facility] [id number] Information: SRC:UR [id number] COUNT (35419) Antimicrobial MIHEAD (Normal) Comments: S = Susceptible; [...] mL (Normal) Urine Final report (Normal) Culture,Comprehensive 35-Tau-92646:51 Urinalysis, Office (87749) UA - BILIRUBIN Negative (Normal) UA - BLOOD Hemolyzed Trace (Normal) UA - GLUCOSE Negative (Normal) UA - KETONES Negative mg/dL (Normal) UA - LEUKOCYTE ESTERASE Large (Normal) UA - NITRITE Negative (Normal) UA - PH 6.5 (Normal) UA - PROTEIN Negative mg/dL (Normal) UA - SPECIFIC GRAVITY 1.015 (Normal) URINE UROBILINGN SRAVANI TIMED Normal mg/dL (Normal) 87-Mzg-962685:53 CBC (Auto) (44286) Comments: PATIENT NOT FASTINGPERFORMED BY: LabCoSaint Francis Medical CenterGjfgcx3921 [facility] [id number] Information: [id number] Platelets 271 {x10E3/uL} (Normal) Range: 140-415 RDW 13.4 % (Normal) Range: 11.7-15.0 MCHC 34.0 g/dL (Normal) Range: 32.0-36.0 MCH 31.0 pg (Normal) Range: 27.0-34.0 Hematocrit 37.9 % (Normal) Range: 34.0-44.0 MCV 91 fL (Normal) Range: 80-98 Hemoglobin 12.9 g/dL (Normal) Range: 11.5-15.0 RBC 4.16 {x10E6/uL} (Normal) Range: 3.80-5.10 WBC 4.7 {x10E3/uL} (Normal) Range: 4.0-10.5 52-Lkh-816699:53 Potassium Serum (18688) Comments: PATIENT NOT FASTINGPERFORMED BY: LabCoSaint Francis Medical CenterFzhyqu9107 [facility] [id number] Potassium, Serum 4.9 mmol/L (Normal) Range: 3.5-5.2 89-Aec-54383:17 GALLBLADDER Radiology Report See Note (Normal) Comments: [...] 42 U/L (Normal) Comments: RESULTS FAXED 05/24/10 1334 NANCY. BETH 13:17 Range: 25-115 43-Xxm-472300:17 CBCD,SMEAR DIFF RED CELL MORPH SeeNote {NORMAL} [...] 4.2-5.4 WBC 3.0 K/mm3 (Abnormal) Range: 4.4-11.0 63-Kdt-319378:17 COMP METABOLIC Comments: RESULTS FAXED 05/24/10 1522 [...] 0.6-1.0 GLU 82 mg/dL (Normal) Range: 70-110 13-Csp-695330:17 LIPASE 124 U/L (Normal) Comments: RESULTS FAXED 05/24/10 1522 CARLOS CAMPOS. Range: 70-290 Comments: Please note:LIPASE revised reference range effective 09. 9-Spv-044543:38 CBCD,SMEAR DIFF RED CELL MORPH SeeNote {NORMAL} [...] 0.6-1.0 GLU 86 mg/dL (Normal) Range: 70-110 6-Fmp-629376:38 LIPID LDL 98 mg/dL (Normal) Range: 0-130 [...] Very High > or = 500 mg/dL 4-Mpf-209356:38 MICROALB:CRE UR MALB:CREAT 13.5 {mg/g_CRE} (Normal) MICROALBUMIN,UR 5.2 mg/L (Normal) UR CREAT 38.5 mg/dL (Normal) :38 TSH 0.50 {uIU/mL} (Normal) Range: 0.358-3.74 :03 Urinalysis, Office (47059) UA - BILIRUBIN Negative (Normal) UA - BLOOD Hemolyzed Trace (Normal) UA - GLUCOSE Negative (Normal) UA - KETONES Negative mg/dL (Normal) UA - LEUKOCYTE ESTERASE Negative (Normal) UA - NITRITE Negative (Normal) UA - PH 6.5 (Normal) UA - PROTEIN Negative mg/dL (Normal) UA - SPECIFIC GRAVITY 1.020 (Normal) URINE UROBILINGN SRAVANI TIMED Normal mg/dL (Normal) 02-Xdz-888776:01 Urinalysis, Office (09010) UA - BILIRUBIN Moderate (Normal) UA - BLOOD Hemolyzed Large (Normal) UA - GLUCOSE Negative (Normal) UA - KETONES Negative mg/dL (Normal) UA - LEUKOCYTE ESTERASE Negative (Normal) UA - NITRITE Negative (Normal) UA - PH 6.0 (Normal) UA - PROTEIN Negative mg/dL (Normal) UA - SPECIFIC GRAVITY 1.010 (Normal) URINE UROBILINGN SRAVANI TIMED Normal mg/dL (Normal) 67-Mjl-834211:46 URINE ALISSON CULTURE-IDENTIFICATN Comments: PATIENT NOT FASTINGPERFORMED BY: [employer] [facility] [id number] Information: [id number] (10795) Result 1 NG36 (Normal) Comments: No growth in 36 - 48 hours. Urine Culture,Comprehensive Final report (Normal) 53-Odu-970655:00 TSH (83164) Comments: PATIENT WAS FASTINGPERFORMED BY: [employer]70 [facility] [id number] TSH 1.190 {uIU/mL} (Normal) Range: 0.450-4.500 29-Ish-316387:00 METABOLIC PANEL, COMPREHENSIVE Comments: PATIENT WAS FASTINGPERFORMED BY: [employer] Btrdpo4087 [facility] [id number] (28575) A/G Ratio 1.7 (Normal) Range: 1.1-2.5 Albumin, [...] Sodium, Serum 139 mmol/L (Normal) Range: 135-145 :00 LIPID PANEL (46523) Comments: PATIENT WAS FASTINGPERFORMED BY: LabCoSaint Francis Medical CenterIstbev6234 [facility] [id number] Cholesterol, Total 231 mg/dL (Abnormal) Range: 100-199 HDL Cholesterol 79 mg/dL (Normal) Comments: According to ATP-III Guidelines, HDL-C >59 mg/dL is considered anegative risk factor for CHD. LDL Cholesterol Calc 127 mg/dL (Abnormal) Range: 0-99 LDL/HDL Ratio 1.6 {ratio_units} (Normal) Range: 0.0-3.2 Triglycerides 123 mg/dL (Normal) Range: 0-149 VLDL Cholesterol Zaria 25 mg/dL (Normal) Range: 5-40 74-Nsx-749448:00 CBC WITH MANUAL DIFF (45904) Comments: PATIENT WAS FASTINGClinical Information: [id number] PERFORMED BY: YETI GroupSaint Francis Medical CenterCropkd4376 [facility] [id number] Baso (Absolute) 0.0 {x10E3/uL} (Normal) Range: 0.0-0.2 [...] Culture,Comprehensive Comments: Clinical Information: SRC:UR PERFORMED BY: [facility]6370 [facility] [id number] Result 1 ECV (Normal) Comments: Escherichia coli, [...] S Urine Final report (Normal) Culture,Comprehensiv e 35-Xdz-750740:59 Urinalysis, Office (44802) UA - BILIRUBIN Negative (Normal) UA - BLOOD Hemolyzed Moderate (Normal) UA - GLUCOSE Negative (Normal) UA - KETONES Negative mg/dL (Normal) UA - LEUKOCYTE ESTERASE Moderate (Normal) UA - NITRITE Negative (Normal) UA - PH 6.0 (Normal) UA - PROTEIN Negative mg/dL (Normal) UA - SPECIFIC GRAVITY 1.015 (Normal) URINE UROBILINGN SRAVANI TIMED 2 mg/dL (Normal) 11-Wtw-955603:54 URINALYSIS W/O MICRO (23772) Comments: PATIENT WAS FASTINGPERFORMED BY: [facility]At[facility] [id number] Appearance Clear (Normal) Bilirubin Negative (Normal) Glucose Negative (Normal) Ketones Negative (Normal) Microscopic Examination MICRON (Normal) Comments: Microscopic follows if indicated. Nitrite, Urine Negative (Normal) Occult Blood Negative (Normal) pH 6.5 (Normal) Range: 5.0-7.5 Protein Negative (Normal) Specific [place] 1.012 (Normal) Range: 1.005-1.030 Urine-Color Yellow (Normal) Urobilinogen,Semi-Qn 0.2 mg/dL (Normal) Range: 0.0-1.9 WBC Esterase Negative (Normal) [id number] TSH ([id number]) Comments: PATIENT WAS FASTINGPERFORMED BY: [facility] [id number] TSH 1.015 {uIU/mL} (Normal) Range: 0.450-4.500 [id number]-652366:54 METABOLIC PANEL, COMPREHENSIVE Comments: PATIENT WAS FASTINGPERFORMED BY: [facility] [id number] ([id number]) A/G Ratio 1.5 (Normal) Range: 1.1-2.5 Albumin, [...] Serum 113 mg/dL (Abnormal) Range: 65-99 If -Colombian >59 mL/min/1.73 Comments: Note: Persistent reduction for [...] Sodium, Serum 140 mmol/L (Normal) Range: 135-145 40-Rwv-029356:54 LIPID PANEL (34771) Comments: PATIENT WAS FASTINGPERFORMED BY: [id number] [facility] [id number] Cholesterol, Total 199 mg/dL (Normal) Range: 100-199 [...] Cholesterol Zaria 26 mg/dL (Normal) Range: 5-40 75-Hgz-303513:54 CBC WITH MANUAL DIFF ([id number]) Comments: PATIENT WAS FASTINGClinical Information: ADD DRAW FEE [id number] ADD J 01260 [facility]FORMED BY: [facility] [facility] [id number] Baso (Absolute) 0.0 {x10E3/uL} (Normal) Range: 0.0-0.2 [...] change for the pediatric CBC With Differential/Platelet 93-Phy-572361:32 PELVIC (NON-PREG) (HP) Radiology Report See Note (Normal) Comments: Exam Number: [id number] PELVIC ULTRASOUND HISTORYOvarian cyst, left side. COMPARISON [...] 26, 2006. Reported By: MANSI SINGER M.D. 9-Qfg-514294:42 ISIAH-D [id number] ISIAH-DIRECT 32 U/mL (Normal) Range: 0-99 Comments: Negative <100 Equivocal 100 - 120 Positive >120 7-Wvr-136296:42 B12/FOLATES FOLATES,SERUM 10.60 ng/mL (Normal) VITAMIN B12 281 pg/mL (Normal) Range: 211-911 9-Qcg-799786:42 C-REACTIVE PROT 2.88 mg/L (Normal) Range: 0.0-6.0 Comments: Test performed using the Dimension C-Reactive ProteinExtended Range assay method. This assay meets the AHA/CDC 2003 recommendations fordetermining patients at high risk for cardiovasculardisease. Reference: High risk CRP >3.0 mg/L 8-Kyq-946681:42 CBCD,SMEAR DIFF BAND 5 % (Normal) Range: [...] Range: 0.2 - 1.0 :42 T3, FREE 37406 2.8 pg/mL (Normal) Range: 2.3-4.2 Comments: Performed At: [address] [id number] :42 T4 FREE,DIRECT 1.0 ng/dL (Normal) Range: 0.89-1.76 :42 TSH 0.54 {uIU/mL} (Normal) Range: 0.34-4.82 :56 MAMM, CRISTINAKIMBERLY GAVINO DIGITAL & CAD Radiology Report See Note (Normal) Comments: Exam Number: [id number] MAMMOGRAPHY, RIGHT UNILATERAL DIAGNOSTIC DIGITAL AND CAD [...] mammograms werealso examined with computer-aided detection software (ImageForceManagercker, [employer], cortical.io.). Reported By: AARON DE ANDA M.D. 49-Agc-810740:59 MAMMSARAH DIGITAL & CAD Radiology Report See Note (Normal) Comments: Exam Number: [id number] BILATERAL SCREENING DIGITAL MAMMOGRAM CLINICAL INFORMATIONScreening. TECHNIQUEBilateral [...] under theMammography Quality [place] Act of 1991 (MQSA). The mammograms werealso examined with computer- aided detection software ([employer]arentec, Beatrobo.). Reported By: SUSI MACK M.D. 78-Wjy-527180:59 PELVIC (NON-PREG) (HP) Radiology Report See Note (Normal) Comments: Exam Number: [id number] TRANSABDOMINAL PELVIC ULTRASOUND CLINICAL STATEMENTLower abdominal pain. [...] emotional health Indication: Impaired fasting glucose WWV (Renamed from [facility]) : *Well Female Maintenance (KF) Indication: WWV (Renamed from [employer]) WW V73. (Renamed from [facility]) : Pap/Pelvic/Bimanual/Rectal/Breast Exam was done. Indication: WWV V73. (Renamed from [facility]) Dysuria : Water in diet, brief version Indication: Dysuria Dysuria : *UTI treatment Indication: Dysuria Dysuria : *UTI treatment Indication: Dysuria Dysuria : UTI treatment Indication: Dysuria Fatigue : FOLLOW UP IN 2 WEEKS Indication: Fatigue Fatigue : *fatigue education Indication: Fatigue Planned Observations MICROALBUMIN: CREATININE RATIO (56060) AND (65957)Indication: Hypertension On: :52 Request URINALYSIS (95304)Indication: Hypertension On: :52 Request CBC WITH MANUAL DIFF (49554)Indication: Hypertension On: :52 Request Metabolic Panel, Comprehensive (94169)Indication: Hypertension On: :52 Request Anti-TPO Antibody (15110)Indication: Subclinical hyperthyroidism On: 82-Gji-879103:40 Request Comments: check in February T4, FREE (THYROXINE) (66786)Indication: Subclinical hyperthyroidism On: 41-Ara-562311:40 Request Comments: check in February T-3 UPTAKE (12844)Indication: Subclinical hyperthyroidism On: :40 Request Comments: recheck February TSH (44350)Indication: Subclinical hyperthyroidism On: 33-Mcz-148459:40 Request Comments: recheck February CULTURE, SPUTUM (49397)Indication: COPD with acute exacerbation (Renamed from Acute exacerbation of chronic obstructive airways disease) On: 1-Gqt-381374:45 Request Anti-TPO Antibody (58013)Indication: Abnormal blood chemistry On: :18 Request T3, FREE (TRIDOTHYRONINE) (52723)Indication: Abnormal blood chemistry On: :18 Request T4, FREE (THYROXINE) (86388)Indication: Abnormal blood chemistry On: :18 Request TSH (33765)Indication: Abnormal blood chemistry On: :18 Request D-Dimer (31874)Indication: Chest pain On: 3-Hqg-014121:49 Request Comments: do all labs stat...zaria to on zaria if abnormal CPK MB FRACTION (47359)Indication: Chest pain On: 4-Ivj-361169:22 Request CREATINE KINASE TOTAL (48359)Indication: Chest pain On: 2-Leu-255155:22 Request Metabolic Panel, Comprehensive (80238)Indication: Fatigue On: 2-Efq-626742:06 Request CBC, Platelets & Auto Diff (47183)Indication: Immunocompromised On: 9-Wnx-620799:03 Request CULTURE, SPUTUM (04399)Indication: Bronchitis, acute On: 8-Onl-062261:58 Request METABOLIC PANEL, COMPREHENSIVE (23412)Indication: Benign essential hypertension On: 49-Gbp-883249:57 Request LIPID PANEL (09899)Indication: Benign essential hypertension On: 41-Nkd-906025:57 Request T4, FREE (THYROXINE) (94107)Indication: Perimenopausal menorrhagia On: 0-Lns-500869:00 Request TSH (THYROID STIMULATING HORMONE) (45451)Indication: Perimenopausal menorrhagia On: 9-Xus-163060:59 Request Comments: fax copy all labs to Dr. bales HCG (HUMAN CHORIONIC GONADOTROPIN) ([id number])Indication: Perimenopausal menorrhagia On: 8-Eeh-173835:57 Request PTT (ACTIVATED PARTIAL THROMBOPLASTIN TIME) ([id number])Indication: Perimenopausal menorrhagia On: 1-Anz-957827:57 Request PT/INR, Office (90752)Indication: Perimenopausal menorrhagia On: 6-Lzc-853377:57 Request 17-HYDROXYPREGNENOLONE (06320)Indication: Perimenopausal menorrhagia On: 4-Raq-031894:57 Request PROLACTIN (19159)Indication: Perimenopausal menorrhagia On: 3-Hcd-356336:57 Request LIPID PANEL (95381)Indication: Benign essential hypertension On: 52-Mka-343173:28 Request CCP ANTIBODY (88381)Indication: Acute rheumatoid arthritis On: 07-Hkh-666121:17 Request SED RATE ERYTHROCYTE (15750)Indication: Acute rheumatoid arthritis On: 58-Fhh-847078:17 Request C-REACTIVE PROTEIN (79330)Indication: Acute rheumatoid arthritis On: 96-Ueu-544632:17 Request TSH ([id number])Indication: Acute rheumatoid arthritis On: Request RHEUMATOID FACTOR-QUANT (70004)Indication: Acute rheumatoid arthritis On: : Request ISIAH (ANTINUCLEAR ANTIBODY) (97327)Indication: Acute rheumatoid arthritis On: : Request URINALYSIS, W/ MICRO (81646)Indication: Benign essential hypertension On: : Request METABOLIC PANEL, COMPREHENSIVE (38817)Indication: Benign essential hypertension On: : Request LIPID PANEL (22150)Indication: Benign essential hypertension On: : Request CBC WITH MANUAL DIFF ([id number])Indication: Benign essential hypertension On: : Request URINE ALISSON CULTURE (SRAVANI COL COUNT) ([id number])Indication: Hematuria On: 62-Mab-401448:04 Request METABOLIC PANEL, COMPREHENSIVE (33009)Indication: Nausea and vomiting On: : Request CBC WITH MANUAL DIFF ([id number])Indication: Nausea and vomiting On: :02 Request Lipase (78375)Indication: Nausea and vomiting On: : Request Amylase (69580)Indication: Nausea and vomiting On: : Request OVA & PARASITE DIR SMEAR (89861)Indication: Diarrhea On: : Request C.Difficile, Stool (15070)Indication: Diarrhea On: : Request LEUKOCYTE COUNT, FECAL (70831)Indication: Diarrhea On: : Request ALISSON CULTURE-STOOL (70146)Indication: Diarrhea On: : Request TSH (58968)Indication: Depression On: :10 Request MICROALBUMIN: CREATININE RATIO (67278) AND (82862)Indication: Benign essential hypertension On: : Request METABOLIC PANEL, COMPREHENSIVE (78402)Indication: Benign essential hypertension On: : Request LIPID PANEL ([id number])Indication: Benign essential hypertension On: :09 Request CBC WITH MANUAL DIFF ([id number])Indication: Benign essential hypertension On: : Request URINALYSIS W/O MICRO (97324)Indication: Benign essential hypertension On: :39 Request MICROALBUMIN URINE QUANT (69273)Indication: Benign essential hypertension On: :39 Request METABOLIC PANEL, COMPREHENSIVE ([id number])Indication: Benign essential hypertension On: :39 Request LIPID PANEL (80034)Indication: Benign essential hypertension On: :39 Request ISIAH (ANTINUCLEAR ANTIBODY) ([id number])Indication: Fatigue On: :39 Request C-REACTIVE PROTEIN ([id number])Indication: Fatigue On: :39 Request CBC (AUTO) (97365)Indication: Fatigue On: :39 Request Folate (89963)Indication: Fatigue On: :39 Request METABOLIC PANEL, COMPREHENSIVE ([id number])Indication: Fatigue On: :39 Request RHEUMATOID FACTOR-QUANT (53644)Indication: Fatigue On: :39 Request SED RATE ERYTHROCYTE ([id number])Indication: Fatigue On: :39 Request TSH (67401)Indication: Fatigue On: :39 Request VITAMIN B-12 (CYANOCOBALAMIN) ([id number])Indication: Fatigue On: :39 Request Planned Encounters Medical; TIMOTHY 2 Month FU - On: 31-May-2018 13:00 [facility] Mj [place], Shasha Ba MD Planned Procedures Flu Vaccine (Quadrivalent) 28370Ds: On: 30-Mar-2018 Intent Mj AL, Shasha Ba MD MRI OF LUMBAR SPINE WITH AND WITHOUT On: 18-Jan-2018 Intent CONTRAST (91191)By: Shasha Barker MD Comments: rule out cauda equina syndrome, back injection [facility] Sh[facility] Jean MD THYROID SCAN UPTAKE (10363)By: On: 16-Nov-2017 Intent Shasha Barker MD, MD, [...] ([id number])By: Shasha Barker MD Comments: Lot # [id number] mg solu medrol given right deltoid by Shasha Suggs lpn, MD Radiology - ChestBy: Mj AL, On: 15-May-2017 Intent Shasha Ba MD Solu- Medrol Injection, 125mg On: 12-May-2017 Intent (J2930)By: Shasha Barker MD, MD, Dana M Aerosol Treatment (54341)By: Mj On: 12-May-2017 Intent Shasha AL MD, Dana M EKG (91281)By: Shasha Barker MD On: 12-Mar-2017 Intent Shasha [...] MD, Dana M XRAY LEFT SMALL TOE (07661)By: On: 20-May-2016 Intent Shasha Barker MD, MD, Dana Comments: 5th digit focus on area of pain and get distal metatarsal bone M MAMMOGRAM BREAST BILATERAL SCREENING On: 06-May-2016 Intent DIGITAL ([id number])By: Shasha Barker MD, MD, Dana M DEXA SCAN AXIAL SKELETON (44285)By: On: 06-May-2016 Intent Shasha Barker MD, MD, Dana M Ultrasound - RenalBy: Mj AL, On: 07-Aug-2015 Intent Shasha Ba MD Nuclear Stress Test/Stress On: 08-Jun-2015 Intent SPECT/AdenosineBy: Shasha Barker MD, MD, Dana M Radiology - ChestBy: Ophelia Boogie CNP On: 27-Feb-2015 Intent E Radiology - ChestBy: Ophelia Boogie CNP On: 05-Feb-2015 Intent E Ultrasound - PelvisBy: Chuyita ROSS, On: 19-Jul-2014 Intent Vero EKG (56466)By: Shasha Barker MD On: 23-Jun-2013 Intent Shasha Barker MD Comments: see scanned document of test done to see results reviewed today with patient MAMMOGRAM, SCREENING, BOTH BREASTS On: 23-Jun-2013 Intent (74064)By: Shasha Barker MD, MD, Dana M Eprescribed prescriptions ([id number])By: On: 23-Jun-2013 Intent Shasha Barker MD, MD, Dana M Radiology - Hand - BilateralBy: On: 10-Feb-2013 Intent Shasha Barker MD, MD, Dana Comments: copy to Dr. 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 L CT - Abdomen & Pelvis (IV Contrast On: 12-Mar-2012 Intent Needed)By: Shasha Barker MD, MD, Dana M MAMMOGRAM, SCREENING, BOTH BREASTS On: 29-Apr-2011 Intent (78995)By: Shasha Barker MD, MD, Dana M MAMMOGRAM, SCREENING, BOTH BREASTS On: 25-Apr-2011 Intent (29818)By: Shasha Barker MD, MD, Dana M EKG (33230)By: JACKIE Bruno On: 26-Aug-2010 Intent Ultrasound - GallbladderBy: Fast DO, On: 27-May-2010 Intent Philomena A Ultrasound - GallbladderBy: Fast DO, On: 24-May-2010 Intent Philomena A Doppler Ultrasound OtherBy: Augustine On: 25-Apr-2010 Intent Jeannette FARAH Comments: L lower extrrem- eval for clot and eval bakers cyst? size ? leaking ? Radiology - ChestBy: Mj AL, On: 23-May-2009 Intent Shasha Ba MD EKG (73500)By: Shasha Barker MD On: 24-Apr-[address] - Brain/HeadBy: Shasha Barker MD On: 24-Apr-2009 Intent Shasha Gillespie MD EKG (94745)By: Shasha Barker MD On: 14-Apr-2008 Intent Shasha Barker MD MAMMOGRAM, SCREENING, BOTH BREASTS On: 14-Apr-2008 Intent (41229)By: Shasha Barker MD, MD, Dana M Ultrasound - PelvisBy: Mj AL, On: 23-Nov-2006 Intent Shasha Ba MD EKG (65483)By: PEGGY ROSE CNP On: 10-Aug-2006 Intent Comments: [...] (716.90), Fatigue (780.79), WWV V73.21 (Renamed from [employer]) [facility] Office Visit On: 12-Mar-2012 [...] date: (04-07-11).Encounter Diagnosis: WWV V73.21 (Renamed from [facility]) [facility] Office Visit On: [...] Fatigue (780.79), WWV V73.21 (Renamed from [facility]) [facility] Annotation/Addendum On: 02-Oct-2010 [...] (368.9), Headache (784.0), Backache, unspecified (724.5), [facility] Office Visit On: [...] left, use cockup splint, see pelligrtawanda in [place]--did ncs 1year ago--show CTS, xray of hand [...]
--- OUTSIDE RECORDS SUMMARY | 2018-07-27 22:49 | XMS RPT_ITS | Continuity of Care Document ---
:1960 Author Organization [facility] Address [address] [place] [address] Phone Care Team Providers Name Role Phone Mj AL, Shasha Whitten Unavailable Shahana Major Unavailable Jose L Chance Unavailable Stepan Ying Unavailable Dr. Juju Bales MD Unavailable Tita Miles Unavailable Rios Chinchilla Unavailable Dr. Cholo Taylor Unavailable Benson Delgado MD Unavailable Dr. Jose L Gutierrez Unavailable Sukumar Puckett Unavailable Espinoza Quan MD Unavailable oRlando Kern Unavailable Unavailable Hortensia Tinajero Unavailable May [...] going to see spine surgeon/functional medicine at [facility] Dr Martínez 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 Deliveries (Parity) [...] ca se this would be the cause. [facility] -18 ? aspiration ? imipramine Status: [...] MD, Shasha Whitten Start : 02-Apr-2018 Active Comments:[id number] called to Dannielle OARRS reviewed AmLODIPine Besylate [...] End : 14-Jul-2017 Inactive Comments: d/c per [facility] had fatgiue and GI upset [...] 14-Jul-2017 Inactive Comments: d/c per [facility] LEUCOVORIN CALCIUM, 15MG (Oral Tablet) 1 [...] Start : 29-Jan-2010 End : 08-Feb-2010 Inactive [place] 7.5-325 MG Oral Tablet 1 (one) Tablet two times daily for 0 days Quantity: 60 {Tablet} Refills: 0 Ordered:26-Jan-2017 JACKIE Bruno Start : 26-Jan-2017 End : 26-Jan-2017 Inactive [place] 7.5-325 MG Oral Tablet tid prn (7.5-325 [...] Quantity: 30 {Tablet} Refills: 3 Ordered:27-Feb-2015 Slarb BEVERAGE SERVER, Ambreen Start : 07-Sep-2014 End : 27-Feb-2015 [...] Quantity: 30 {Tablet} Refills: 0 Ordered:27-Feb-2015 Slarb BEVERAGE SERVER, Ambreen Start : 05-Feb-2015 End : 27-Feb-2015 [...] (R79.9, 790.6) Comments: tsh off will call [facility] and get leaves will follow Status: Resolved as of 15-May-2017 Abnormal finding on radiology exam (R93.8, 793.99) Comments: remains on levaquin and prednisone seeing Dr. Deangelo vallecillo in [place] next week. Status: Inactive as of 04-Sep-2016 [...] osteoarthritis (M19.90, 715.90) Comments: MRI one erosion [place] not sure iseronegative RA will be on [...] 1.[address] chest in [facility] with radiology at [facility] can they compare for me with [...] inside ?olyp ? adenomyosis. ? 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 wrote for mammo just in case will get Status: Inactive as of 15-Mar-2015 Yeast infection (B37.9, 112.9) Status: Inactive as of 15-Mar-2015 Procedures Procedure Dates Details ARTHROPLASTY, HIP, TOTAL (64972) Completed Comments: left @ [facility] 03-18-18 Dr. Wendy Mckoy Carpal Tunnel b/l wrist Completed Colonoscopy, Screening Completed Comments: 01-01-[address] Gutierrez Dilation and Curettage of Uterus Completed Nov-2015 kidney sx as Completed partial knee replacement -- Left Leg Completed .2010 right lobe resection-lung Completed Comments: February 2015 Date Value Details 04-Apr-2018 Emergency Department Summary Result: Comments: See Note; NOTES: [facility] Medical Records Department [address] [place] [address] Emergency Department Summary 04/04/181929 MR#: [id number] Acct: [id number] Name: TIN BLACKWOOD Rep #: [id number] : 1960 57 From: Christian Hemphill PCP: [...] Novem lc [address] 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 Doing well post surgery. Has not had her follow-up. On chronic [place] . Status post 12.5 mics of fentanyl [...] sedation This note was generate d with [employer] dictation software. It may contain incorrect words, [...] problems, contact your Primary Care Provider. Call [employer] [facility] ([phone]) or report to the closest Emergency Room. Call 911 if nece ssary. 04/04/182056 <Electronically signed by Christian Hemphill> Date Christian Hemphill Cosigner Signature (If Indicated): Date ____ CC: Shasha Barker MD 04-Apr-2018 Hip Min 2 Views (Portable) Result: Comments: See Note; NOTES: [facility] Imaging Services [address] [place] [address] Hip Min 2 Views (Portable) MR#: [id number] Acct: [id number] Name: TIN BLACKWOOD Rep #: [id number] : 1960 F 57 From: Vazquez Kaye MD PCP: Shasha Barker MD Status: DEP ER Study: Hip Min 2 Views (Portable) Date of Exam: 04/04/18 Exam# [id number] Ordering Dr: Christian Schrader DO STUDY: X-RAY [...] Fax CC: Shasha Barker MD; Christian Schrader Sales Warehouse Driver: Signed 04-Apr-2018 HIP, UNI W/ Pelvis 2-3 Views Result: Comments: See Note; NOTES: [facility] Imaging Services [address] [place] [address] HIP, UNI W/ Pelvis 2-3 Views MR#: [id number] Acct: [id number] Name: TIN BLACKWOOD Rep #: [id number] : 1960 F 57 From: Davi Ambrose DO PCP: Shasha Barker MD Status: DEP ER Study: HIP, UNI W/ Pelvis 2-3 Views Date of Exam: 04/04/18 Exam# [id number] Ordering Dr: Christian Schrader DO STUDY: X-RAY [...] Davi Ambrose DO at 22:07 EST Tel [phone], Service support , Fax CC: Shasha Barker MD; Christian Schrader Sales Warehouse Driver: Signed 10-Feb-2018 Lower Ext Joint Only W/WO Cont Result: Comments: See Note; NOTES: [facility] Imaging Services [address] [place] [address] Lower Ext Joint Only W/WO Cont MR#: [id number] Acct: [id number] Name: TIN BLACKWOOD Rep # : [id number] : 1960 F 57 From: Kadie Dailey MD PCP: Shasha Barker MD Status: REG CLI Study: Lower Ext Joint Only W/WO Cont Date of Exam: 02/10/18 Exam# [id number] Ordering Dr: CARLOS SHELBY M.D. STUDY: MRI [...] CARLOS SHELBY M.D.; Shasha Barker MD Sales Warehouse Driver: Signed 28-Jan-2018 Chest without Contrast Result: Comments: See Note; NOTES: [facility] Imaging Services [address] [place] [address] Chest without Contrast MR#: [id number] Acct: [id number] Name: TIN BLACKWOOD Rep #: [id number] : 1960 F 57 From: Vazquez Kaye MD PCP: Shasha Barker MD Status: REG CLI Study: Chest without Contrast Date of Exam: 01/28/18 Exam# [id number] Ordering Dr: Pelon Chatterjee MD STUDY: CT [...] Shasha Barker MD; Pelon Chatterjee MD Sales Warehouse Driver: Signed 20-Jan-2018 Emergency Department Summary Result: Comments: See Note; NOTES: [facility] Medical Records Department [address] [place] [address] Emergency Department Summary 01/19/18 1534 MR#: [id number] Acct: [id number] Name: TIN BLACKWOOD Rep #: [id number] : 1960 57 From: Rolando Mc MD [...] Lumbar radiculopathy This note was generated with [employer] dictation software. It may contain incorrect words, [...] your Primary Care Provider. Call [facility] ([phone]) or report t o the closest Emergency Room. Call 911 if necessary. 01/20/18 0235 <Electronically signed by Rolando Mc MD> Date Rolando Mc MD Cosigner Signature (If Indicated): Date CC: Shasha Barker MD 19-Jan-2018 Spine Lumbar (Routine) Result: Comments: See Note; NOTES: [facility] Imaging Services [address] [place] [address] Spine Lumbar (Routine) MR#: [id number] Acct: [id number] Name: TIN BLACKWOOD Rep #: [id number] : 1960 F 57 From: Nabeel Bernabe MD PCP: Shasha Barker MD Status: REG ER Study: Spine Lumbar (Routine) Date of Exam: 01/19/18 Exam# [id number] Ordering Dr: Rolando Mc MD STUDY: MRI [...] CC: Shasha Barker MD; Rolando Mc Sales Warehouse Driver: Signed 19-Jan-2018 Spine Lumbar (Routine) Result: Comments: See Note; NOTES: [facility] Imaging Services [address] [place] [address] Spine Lumbar (Routine) MR#: [id number] Acct: [id number] Name: TIN BLACKWOOD Rep #: [id number] : 1960 F 57 From: Nabeel Bernabe MD PCP: Shasha Barker MD Status: REG Study: Spine Lumbar (Routine) Date of Exam: 01/19/18 Exam# [id number] Ordering Dr: Rolando Mc MD STUDY: MRI [facility] SPINE WITHOUT CONTRAST REASON FOR [...] CC: Shasha Barker MD; Rolando Mc Sales Warehouse Driver: Signed 10-Dec-2017 Lower Ext/No Jt/w/o Result: Comments: See Note; NOTES: [facility] Imaging Services [address] [place] [address] Lower Ext/No Jt/w/o MR#: [id number] Acct: [id number] Name: TIN BLACKWOOD Rep #: [id number] : 1960 F 56 From: Julio Cannon MD PCP: Shasha Barker MD Status: REG CLI Study: Lower Ext/No Jt/w/o Date of Exam: 12/10/17 Exam# [id number] Ordering Dr: Nabeel Danielle DPM STUDY: MRI [...] Shasha Barker MD; Nabeel Danielle DPM Sales Warehouse Driver: Signed 18-Nov-2017 Thyroid Uptake Single or Mult Result: Comments: See Note; NOTES: [facility] Imaging Services [address] [place] [address] Thyroid Uptake Single or Mult MR#: [id number] Acct: [id number] Name: TIN BLACKWOOD Rep #: [id number] : 1960 F 56 From: Asif Pagan DO PCP: Shasha Barker MD Status: REG CLI Study: Thyroid Uptake Single or Mult Date of Exam: 11/18/17 Exam# [id number] Ordering Dr: Bonezzi, Shasha MD C LINICAL: [...] to the presence of visualized th yroid mwljbgi-D-uhthgk thyroid gland. 3. No hypofunctioning, cold nodules are identified. Electronically Signed: Asif Pagan DO at 22:10 EDT Tel , Service support [phone], CC: Shasha Barker MD Sales Warehouse Driver: Signed 16-Nov-2017 Spine Cervical (Routine) Result: Comments: See Note; NOTES: [facility] Imaging Services [address] [place] [address] Spine Cervical (Routine) MR#: [id number] Acct: [id number] Name: TIN BLACKWOOD Rep #: [id number] : 1960 F 56 From: Andrew Duran DO PCP: Shasha Barker MD Status: REG CLI Study: Spine Cervical (Routine) Date of Exam: 11/16/17 Exam# [id number] Ordering Dr: More Taylor MD STUDY: MRI [...] More Taylor MD; Shasha Barker MD Sales Warehouse Driver: Signed 03-Nov-2017 Pelvis 1 or 2 Views Result: Comments: See Note; NOTES: [facility] Imaging Services [address] [place] [address] Pelvis 1 or 2 Views MR#: [id number] Acct: [id number] Name: TIN BLACKWOOD Rep #: [id number] : 1960 F 56 From: Vale Godoy MD PCP: Shasha Barker MD Status: REG CLI Study: Pelvis 1 or 2 Views Date of Exam: 11/03/17 Exam# [id number] Ordering Dr: Shasha Barker MD STUDY: X-RAY [...] at 17:01 EDT Tel , Service support [phone], CC: Shasha Barker MD Sales Warehouse Driver: Signed 27-Aug-2017 Orb Sella Post Fossa Ear w/o Result: Comments: See Note; NOTES: [facility] Imaging Services [address] [place] [address] Orb Sella Post Fossa Ear w/o MR#: [id number] Acct: [id number] Name: TIN BLACKWOOD Rep #: [id number] : 1960 F 56 From: Nir Dudley MD PCP: Shasha Barker MD Status: REG CLI Study: Orb Sella Post Fossa Ear w/o Date of Exam: 08/27/17 Exam# [id number] Ordering Dr: Dale Zuniga STUDY: CT TEMPORAL [...] Beni Zuniga MD; Shasha Barker MD Sales Warehouse Driver: Signed 25-May-2017 Chest PA and Lateral Result: Comments: See Note; NOTES: [facility] Imaging Services [address] [place] [address] Chest PA and Lateral MR#: [id number] Acct: [id number] Name: TIN BLACKWOOD Rep #: [id number] : 1960 F 56 From: Aguilar Joaquin MD PCP: Shasha Barker MD Status: [facility] RCR Study: Chest PA and Lateral Date of Exam: 05/25/17 Exam# [id number] Ordering Dr: Pelon Chatterjee MD STUDY: X-RAY [...] Aguilar Joaquin MD at 19:35 EST Tel [phone], Service support , CC: Shasha Barker MD; Pelon Chatterjee MD Sales Warehouse Driver: Signed 15-May-2017 Chest PA and Lateral Result: Comments: See Note; NOTES: [facility] Imaging Services [address] [place] [address] Chest PA and Lateral MR#: [id number] Acct: [id number] Name: TIN BLACKWOOD Rep #: [id number] : 1960 F 56 From: Patrice Pinto MD PCP: Shasha Barker MD Status: REG CLI Study: Chest PA and Lateral Date of Exam: 05/15/17 Exam# [id number] Ordering Dr: Shasha Barker MD STUDY: X-RAY [...] support , CC: Shasha Barker MD Sales Warehouse Driver: Signed 21-Jan-2017 Emergency Department Summary Result: Comments: See Note; NOTES: [facility] Medical Records Department [address] [place] [address] Emergency Department Summary 01/20/17 2344 MR#: [id number] Acct: [id number] Name: TNI BLACKWOOD Rep #: [id number] : 1960 56 From: Christian Hemphill PCP: [...] for ED Patient: Disposition: Acute Care Hospital [facility] Chief Complaint: Shortness of Breath Diagnosis: Pulmonary fibro sis, Hypoxemia, Elevated troponin, Pulmonary nodule, right Referrals: Shasha Barker MD [Primary Care Provider] - What to do if you have Problems For any increased pain, shortness of breath, bleedin g, nausea or vomiting, chest pain, or any unexpected problems, contact your Primary Care Provider. Call [employer] Registry ([phone]) or report to the closest Emergency Room. Call 911 if necessary. 01/21/17 0231 <Electronically signed by Christian Hemphill> Date Christian Hemphill Cosigner Signature (If Indicated): Date CC: Shasha Barker MD 21-Jan-2017 CTA Chest W/WO Contrast Result: Comments: See Note; NOTES: [facility] Imaging Services [address] [place] [address] CTA Chest W/WO Contrast MR#: [id number] Acct: [id number] Name: TIN BLACKWOOD Rep #: [id number] : 1960 F 56 From: Stepan Mayberry MD PCP: Shasha Barker MD Status: REG ER Study: CTA Chest W/WO Contrast Date of Exam: 01/21/17 Exam# [id number] Ordering Dr: Christian Schrader DO STUDY: CTA [...] CC: Shasha Barker MD; Christian Schrader Sales Warehouse Driver: Signed 20-Jan-2017 Chest PA and Lateral Result: Comments: See Note; NOTES: [facility] Imaging Services [address] [place] [address] Chest PA and Lateral MR#: [id number] Acct: [id number] Name: TIN BLACKWOOD Rep #: [id number] : 1960 F 56 From: Stepan Mayberry MD PCP: Shasha Barker MD Status: REG ER Study: Chest PA and Lateral Date of Exam: 01/20/17 Exam# [id number] Ordering Dr: Christian Schrader DO STUDY: X-RAY [...] CC: Shasha Barker MD; Christian Schrader Sales Warehouse Driver: Signed 21-Nov-2016 PT D/C Summary (1) Result: Comments: See Note; NOTES: [facility] Physical Therapy [facility] [address] [place] [address] Fax REHABILITATION SERVICES DISCHAR GE SUMMARY MR#: [id number] Acct: [id number] Name: TIN BLACKWOOD Rep #: [id number] : 1960 55 From: Yury Lawrence PT, Cert. MDT, OCS Referring Dr.: Shasha Barker MD Status: REG RCR Insurance: A [facility] - PT D/C Summary It has [...] please feel free to call me at [phone]. Thank you for the referral of this patient. Sincerely, Yury Lawrence PT, <Electronically signed by Cert. SERVANDO Simms PTT, OCS> 11/21/16 1533 CC: Shasha Barker MD MARIN Signed 22-Oct-2016 Inital Evaluation (1) - PT Result: Comments: See Note; NOTES: [facility] Physical Therapy [facility] [address] [place] [address]. [address] [place] [address] Fax REHABILITATION SERVICES INITIAL EVALUATION MR#: [id number] Acct: [id number] Name: TIN BLACKWOOD Rep #: [id number] : 1960 55 From: Cert. ANNA Simms PT, OCS Referring Dr.: Shasha Barker MD Status: REG R Insurance: [facility] Patient's Visit Information TIN BLACKWOOD is a [...] to be FAXED BACK to us at [phone] for Medicare purposes. Please let me know if there are questions or concerns regarding this plan of care. Physician Signature: Date: <Electronically signed by Yury Lawrence PT, Cert. T, OCS> 10/22/16 7324 CC: Shasha Barker MD MARIN Signed F or Medicare only, by signing this I certify the plan of care. Physicians Signature Date 11-Sep-2016 Chest PA and Lateral Result: Comments: See Note; NOTES: [facility] Imaging Services [address] [place] [address] Verdana 4d Chest PA and Lateral MR#: [id number] Acct: [id number] Name: TIN BLACKWOOD Rep #: [id number] : 1960 F 55 From: Hair Rogers MD PCP: Shasha Barker MD Status: REG CLI Study: Chest PA and Lateral Date of Exam: 09/11/16 Exam# [id number] Ordering Dr: Pelon Chatterjee MD STUDY: X-RAY [...] Shasha Barker MD; Pelon Chatterjee MD Sales Warehouse Driver: Signed 18-Aug-2016 Foot min 3 Views Result: Comments: See Note; NOTES: [facility] Imaging Services [address] [place] [address] Verda 4d Foot min 3 Views MR#: [id number] Acct: [id number] Name: TIN BLACKWOOD Rep #: [id number] : 1960 F 55 From: Smith Delaney MD PCP: Shasha Barker MD Status: REG CLI Study: Foot min 3 Views Date of Exam: 08/18/16 Exam# [id number] Ordering Dr: Shasha Barker MD STUDY: X-RAY - [facility] FOOT CLINICAL: Female, 55 years old. [...] support , CC: Shasha Barker MD Sales Warehouse Driver: Signed 05-Aug-2016 Chest 1 View (Portable) Result: Comments: See Note; NOTES: [facility] Imaging Services [address] [place] [address] Verda 4d Chest 1 View (Portable) MR#: [id number] Acct: [id number] Name: TIN BLACKWOOD Rep #: [id number] : 1960 F 55 From: Aguilar Joaquin MD PCP: Shasha Barker MD Status: REG ER Study: Chest 1 View (Portable) Date of Exam: 08/05/16 Exam# [id number] Ordering Dr: Regino Hinson MD STUDY: X-RAY [...] Aguilar Joaquin MD at 9:42 EDT Tel [phone], Service support [phone], CC: Shasha Barker MD; Regino Hinson MD Sales Warehouse Driver: Signed 01-Jul-2016 Chest WITH Contrast Result: Comments: See Note; NOTES: [facility] Imaging Services [address] [place] [address] Verdana 4d Chest WITH Contrast MR#: [id number] Acct: [id number] Name: TIN BLACKWOOD Rep #: [id number] : 1960 F 55 From: Keyshawn Ute PCP: Shasha Barker MD Status: REG CLI Study: Chest WITH Contrast Date of Exam: 07/01/16 Exam# [id number] Ordering Dr: Shasha Barker MD STUDY: CT [...] 22:47 EST Tel , Service support [phone], CC: Shasha Barker MD Sales Warehouse Driver: Signed 17-Jun-2016 Spine Cervical (Routine) Result: Comments: See Note; NOTES: [facility] Imaging Services [facility] [place] [address] [facility] 4d Spine Cervical (Routine) MR#: [id number] Acct: [id number] Name: TIN BLACKWOOD Barbara p #: [id number] : 1960 F 55 From: aKdie Dailey MD PCP: Shasha Barker MD Status: REG CLI Study: Spine Cervical (Routine) Date of Exam: 06/17/16 Exam# [id number] Ordering Dr: More Taylor MD STUD Y: [...] MD at 11:29 EST , Service support [phone], CC: More Taylor MD; Shasha Barker MD Sales Warehouse Driver: Signed 17-Jun-2016 Spine Thoracic (Routine) Result: Comments: See Note; NOTES: [facility] Imaging Services [address] [place] [address] Verdana 4d Spine Thoracic (Routine) MR#: [id number] Acct: [id number] Name: TIN BLACKWOOD p #: [id number] : 1960 F 55 From: Kadie Dailey MD PCP: Shasha Barker MD Status: REG CLI Study: Spine Thoracic (Routine) Date of Exam: 06/17/16 Exam# [id number] Ordering Dr: More Taylor MD STUD Y: [...] MD at 11:55 EST , Service support [phone], CC: Ira Taylor MD; Shasha Barker MD Sales Warehouse Driver: Signed 29-May-2016 Dexa Bone Density Study (HP) Result: Comments: See Note; NOTES: [facility] Imaging Services [address] [place] [address] Verdana 4d Dexa Bone Density Study (HP) MR#: [id number] Acct: [id number] Name: ELISSA BLACKWOOD Rep #: [id number] : 1960 F 55 From: Aguilar Joaquin MD PCP: Shasha Barker MD Status: REG CLI Study: Dexa Bone Density Study (HP) Date of Exam: 05/29/16 Exam# [id number] Ordering Dr: Shasha Barker MD STUDY: DUAL [...] Aguilar Joaquin MD at 13:27 EST Tel [phone], Service support [phone], CC: Shasha Barker MD Sales Warehouse Driver: Signed 29-May-2016 SCREENING MAMM (CAD), BILAT Result: Comments: See Note; NOTES: [facility] Imaging Services [address] [place] [address] Verdana 4d SCREENING MAMM (CAD), BILAT MR#: [id number] Acct: [id number] Name: TIN BLACKWOOD Rep #: [id number] : 1960 F 55 From: Aguilar Joaquin MD PCP: Shasha Barker MD Status: REG CLI Study: SCREENING MAMM (CAD), BILAT Date of Exam: 05/29/16 Exam# [id number] Ordering Dr: Yoana Barker MD MAMMOGRAPHY - [...] delay biopsy of a clinically suspicious abnormality. [id number] Electronically Signed: Aguilar Joaquin MD at 15:18 EST Tel [phone], Service support [phone], CC: Shasha Barker MD Sales Warehouse Driver: Signed 29-Nov-2015 NCS and/or EMG Patient Result: Comments: See Note; NOTES: [facility] Pulmonary Services/Neurology [address] [place] [address] NCS and/or EMG Patient MR#: [id number] Acct: [id number] Name: TIN BLACKWOOD Rep #: [id number] : 1960 54 From: Lucas Kiser MD Referring Dr: More Taylor MD Status: REG CLI Ordering Dr: More Taylor MD Date: 11/27/15 Location: [facility] Sex: F C DATE OF [...] left upper extremity without evidence of radiculopathy. Lucsa hand MD T: NTS JOB: [id number] 11/29/15 0959 <Electronically signed by Lucas Kiser MD> Date Lucas Kiser MD CC: More Taylor MD; Shasha Barker MD; Lucas Kiser MD Date Dictated: 11/27/15 1145 Date Transcribed: 11/27/151144 Sales Warehouse Driver: Signed 12-Oct-2015 Spine Lumbar (Routine) Result: Comments: See Note; NOTES: [facility] Imaging Services [address] [place] [address] Verdana 4d Spine Lumbar (Routine) MR#: [id number] Acct: [id number] Name: TIN BLACKWOOD Rep #: [id number] : 1960 F 54 From: Nabeel Bernabe MD PCP: Shasha Barker MD Status: REG CLI Study: Spine Lumbar (Routine) Date of Exam: 10/12/15 Exam# [id number] Ordering Dr: More Taylor MD STUDY: MRI [...] MD at 20:50 EDT , Service support [phone], CC: More Taylor MD; Shasha Barker MD Sales Warehouse Driver: Signed 12-Oct-2015 Lumbar Spine 2 or 3 Views Result: Comments: See Note; NOTES: [facility] Imaging Services [address] [place] [address] Verdana 4d Lumbar Spine 2 or 3 Views MR#: [id number] Acct: [id number] Name: TIN LLOYD Rep #: [id number] : 1960 F 54 From: Smith Delaney MD PCP: Shasha Barker MD Status: REG CLI Study: Lumbar Spine 2 or 3 Views Date of Exam: 10/12/15 Exam# [id number] Ordering Dr: More Watts MD STUDY: X-RAY [...] FACR at 8:27 EDT , Service support [phone], CC: More Taylor MD; Shasha Barker MD Sales Warehouse Driver: Signed 12-Oct-2015 Thoracic Spine 3 Views Result: Comments: See Note; NOTES: [facility] Imaging Services [address] [place] [address] Verdana 4d Thoracic Spine 3 Views MR#: [id number] Acct: [id number] Name: TIN BLACKWOOD Rep #: [id number] : 1960 F 54 From: Smith Delaney MD PCP: Shasha Barker MD Status: REG CLI Study: Thoracic Spine 3 Views Date of Exam: 10/12/15 Exam# [id number] Ordering Dr: More Taylor MD STUDY: X-RAY [...] FACR at 8:26 EDT , Service support [phone], [phone] RAD/Thoracic Spine 3 Views IMPRESSION : Thoracic spondylosis with multilevel degenerative disc disease Electronically Signed: Smith Delaney MD, FACR at 8:26 EDT , Service support [phone], Fax CC: More Taylor MD; Shasha Barker MD Sales Warehouse Driver: Signed 03-Oct-2015 Chest PA and Lateral Result: Comments: See Note; NOTES: [facility] Imaging Services [address] [place] [address] Verda 4d Chest PA and Lateral MR#: [id number] Acct: [id number] Name: Hero BLACKWOOD Rep #: [id number] : 1960 F 54 From: Aguilar Joaquin MD PCP: Shasha Barker MD Status: REG CLI Study: Chest PA and Lateral Date of Exam: 10/03/15 Exam# [id number] Ordering Dr: Hortensia Mcnamara i, MD STUDY: [...] Aguilar Joaquin MD at 12:56 EDT Tel [phone], Service support [phone], RAD/Chest PA and Lateral IMPRESSION: Minimal degree of res idual increased markings at the lung bases as compared to prior study. Electronically Signed: Aguilar Joaquin MD at 12:56 EDT Tel [phone], Service support [phone], Fax CC: Shasha Barker MD; Hortensia Tinajero MD Sales Warehouse Driver: Signed 05-Sep-2015 Kidney and Bladder Result: Comments: See Note; NOTES: [facility] Imaging Services [address] [place] [address] Verdana 4d Kidney and Bladder MR#: [id number] Acct: [id number] Name: KARINA BLACKWOOD Rep #: [id number] : 1960 F 54 From: Aguilar Joaquin MD PCP: Shasha Barker MD Status: REG CLI Study: Kidney and Bladder Date of Exam: 09/05/15 Exam# [id number] Ordering Dr: Sacha Barker MD STUDY: RENAL [...] Aguilar Joaquin MD at 10:56 EDT Tel [phone], Service support [phone], CC: Shasha Barker MD Sales Warehouse Driver: Signed 22-Jun-2015 Nuclear Stress Test - Chemical Result: Comments: See Note; NOTES: [facility] Imaging Services [address] [place] [address] Verdana 4d Nuclear Stress Test - Chemical MR#: [id number] Acct: [id number] N miguel: TIN BLACKWOOD Rep #: [id number] : 1960 54 From: Dusty Lund MD [...] Preserved ejection fraction. Dusty Lund MD T: [facility] JOB: [id number] 06/26/15 1259 & #60;Electronically signed by Dusty Lund MD> Date Dusty Lund MD CC: Shasha Barker MD Date Dictated: 06/22/151819 Date Transcribed: 06/22/151819 Sales Warehouse Driver: Signed 13-Jun-2015 Lumbar Spine 2 or 3 Views Result: Comments: See Note; NOTES: [facility] Imaging Services [address] [place] [address] Verdana 4d Lumbar Spine 2 or 3 Views MR#: [id number] Acct: [id number] Name: TIN LLOYD Rep #: [id number] : 1960 F 54 From: Smith Delaney MD PCP: Shasha Barker MD Status: REG CLI Study: Lumbar Spine 2 or 3 Views Date of Exam: 06/13/15 Exam# [id number] Ordering Dr: More Watts MD STUDY: X-RAY [...] FACR at 11:06 EST , Service support [phone], RAD/Lumbar Spine 2 or 3 Views IM PRESSION: Degenerative disc disease at L4-5 and L5-S1. Electronically Signed: Smith Delaney MD, FACR at 11:06 EST , Service support [phone], CC: More Taylor MD; Shasha Barker MD Sales Warehouse Driver: Signed 13-Jun-2015 Thoracic Spine 3 Views Result: Comments: See Note; NOTES: [facility] Imaging Services [address] [place] [address] Verdana 4d Thoracic Spine 3 Views MR#: [id number] Acct: [id number] Name: TIN BLACKWOOD Rep #: [id number] : 1960 F 54 From: Smith Delaney MD PCP: Shasha Barker MD Status: REG CLI Study: Thoracic Spine 3 Views Date of Exam: 06/13/15 Exam# [id number] Ordering Dr: More Taylor MD ADDENDUM by Smith Delaney MD on 06/14/15 at 1105 ADDENDUM TECHNIQUE: 3 view(s) o f the thoracic spine were obtained. Electronically Signed: Smith Delaney MD, FACR at 11:05 EST , Service support [phone], 06/14/15 1109 Date cc: More Taylor MD; Shasha Barker [...] FACR at 11:05 EST , Service support [phone], RAD/Thoracic S pine 3 Views IMPRESSION: Thoracic spondylosis Electronically Signed: Smith Delaney MD, FACR at 11:05 EST , Service support [phone], CC: More Taylor MD; Shasha Barker MD Sales Warehouse Driver: Signed 13-Jun-2015 Thoracic Spine 3 Views Result: Comments: See Note; NOTES: [facility] Imaging Services [address] [place] [id number] [place] [address] 4d Thoracic Spine 3 Views MR#: [id number] Acct: [id number] Name: TIN BLACKWOOD Rep #: [id number] : 1960 F 54 From: Smith Delaney MD PCP: Shasha Barker MD Status: REG CLI Study: Thoracic Spine 3 Views Date of Exam: 06/13/15 Exam# [id number] Ordering Dr: More Taylor MD STUDY: X-RAY [...] FACR at 11:05 EST , Service support [phone], RAD/Thoracic Spine 3 Views IMPRESSION: Thoracic spondylosis Electronic ally Signed: Smith Delaney MD, FACR at 11:05 EST , Service support [phone], CC: More Taylor MD; Shasha Barker MD Sales Warehouse Driver: Signed 08-Jun-2015 EKG (12767) Result: [MEASUREMENTS ANALYSIS] Date of Test: 06/08/2015 13:15:12; Heart Rate: 96; MI Interval: 130; QRS: 88; QT Interval: 340; Corrected QT Interval (QTc): 403; P Wave [place]: 48; QRS [place]: 32; T [place]: 36; Blood Pressure: 120/80 [ECG DIAGNOSTIC STATEMENTS] Date of Test: 06/08/2015 13:15:12; Summary: Sinus Rhythm WITHIN NORMAL LIMITS [MEASUREMENTS ANALYSIS] Date of Test: 06/08/2015 13:14:43; Heart Ra te: 97; MI Interval: 126; QRS: 88; QT Interval: 340; Corrected QT Interval (QTc): 404; P Wave [place]: 51; QRS [place]: 31; T [place]: 40; Blood Pressure: 120/80 [ECG DIAGNOSTIC STATEMENTS] Date of Supriya t: 06/08/2015 13:14:43; Summary: Sinus Rhythm WITHIN NORMAL LIMITS 27-Feb-2015 Chest PA and Lateral Result: Comments: See Note; NOTES: [facility] Imaging Services [address] [place] [address] Verdana 4d Chest PA and Lateral MR#: [id number] Acct: [id number] Name: Hero BLACKWOOD Rep #: [id number] : 1960 F 54 From: Aguilar Joaquin MD PCP: Shasha Barker MD Status: REG CLI Study: Chest PA and Lateral Date of Exam: 02/27/15 Exam# [id number] Ordering Dr: Ophelia Boogie STUDY: X-RAY CHEST [...] Aguilar Joaquin MD at 13:45 EDT Tel [phone], Service support [phone], RAD/Chest PA and Lateral IMPRES TABBY: Persistent interstitial disease in keeping with known scarring. Improved aeration of both lungs with residual infiltrate in the peripheral aspect of the right lung. Electronically Signed: Darryl Joaquin MD at 13:45 EDT Tel [phone], Service support [phone], CC: Ophelia Boogie; Shasha Barker MD Sales Warehouse Driver: Signed 05-Feb-2015 Chest PA and Lateral Result: Comments: See Note; NOTES: [facility] Imaging Services [address] [place] [address] Radiology Report MR#: [id number] Acct: [id number] Name: TIN BLACKWOOD Rep #: [id number] : 1960 F 54 From: Vega Payan MD PCP: Shasha Barker MD Status: REG CLI Study: Chest PA and Lateral Date of Exam: 02/05/15 Exam# [id number] Ordering Dr: Ophelia Boogie STUDY: X-RAY C [...] Vega Payan MD at 17:03 EDT Tel [phone], Service support [phone], [phone] RAD/Chest PA and Lateral IMPRESSION: 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 Recommend followup till clear. Electronically Signed: Vega Payan MD a t 17:03 EDT Tel [phone], Service support [phone], CC: Ophelia Boogie; Shasha Barker MD Sales Warehouse Driver: Signed 06-Nov-2014 Operative Report Result: Comments: See Note; NOTES: [facility] Medical Records Department [address] [place] [address] Operative Report MR#: [id number] Acct: [id number] Name: TIN BLACKWOOD Rep #: [id number] : 1960 53 From: Allie Bales MD PCP: Shasha Barker MD Status: [facility] DATE OF SERVICE: 11/06/2014 DATE OF SERVICE: [...] time. Allie Bales MD T: [facility] JOB: [id number] 11/06/14 1429 <Electronically signed by Allie Bales MD> Raul e Allie Bales MD CC: Allie Bales MD; Shasha Barker MD Date Dictated: 11/06/14 1231 Date Transcribed: 11/06/14 1231 Sales Warehouse Driver: Signed 06-Nov-2014 Discharge Instruction Result: Comments: See Note; NOTES: [facility] Medical Records Department [address] [facility] [place] [address] Instructions for Home/Discharge Instructions 11/06/14 1204 MR#: [id number] ct: [id number] Name: TIN BLACKWOOD Rep #: [id number] : 1960 53 From: Allie Bales MD PCP: Shasha Braker MD Status: REG [facility] Discharge Diet: No Restrictions Discharge Activity: Return [...] Operative Report Result: Comments: See Note; NOTES: [facility] Medical Records Department [address] [place] [address] Operative Report 11/06/14 1202 MR#: [id number] Acct: [id number] Name: TIN BLACKWOOD Rep #: [id number] : 1960 53 From: Allie Bales MD PCP: Shasha Barker MD Status: [facility] Y Location: [place] [address] Operative Report (Blank) Date of Procedure: 11/06/14 [...] Transvaginal Non- Result: Comments: See Note; NOTES: [facility] Imaging Services [address] [place] [address] Ultrasound Report MR#: [id number] Acct: [id number] Name: TIN BLACKWOOD Rep #: [id number] : 1960 F 53 From: Aguilar Joaquin MD PCP: Shasha Barker MD Status: REG CLI Study: Transvaginal Non- Date of Exam: 07/24/14 Exam# [id number] Ordering Dr: Ophelai Boogie STUDY: ULTRASOUND OF THE FEMALE PELVIS [...] Aguilar Joaquin MD at 10:36 EDT Tel [phone], Service support [phone], CC: Ophelia Boogie; Shasha Barker MD Sales Warehouse Driver: Signed 24-Jul-2014 Pelvic (Non ) Result: Comments: See Note; NOTES: [facility] Imaging Services [address] [place] [address] Ultrasound Report MR#: [id number] Acct: [id number] Name: TIN BLACKWOOD Rep #: [id number] : 1960 F 53 From: Aguilar Joaquin MD PCP: Shasha Barker MD Status: REG CLI Study: Pelvic (Non ) Date of Exam: 07/24/14 Exam# [id number] Ordering Dr: Ophelia Boogie STUDY: ULTR ASOUND [...] Darryl Joaquin MD at 10:36 EDT Tel [phone], Service support [phone], CC: Ophelia Boogie; Shasha Barker MD Sales Warehouse Driver: Signed 05-Sep-2013 Cerv Spine 4 or 5 Views Result: Comments: See Note; NOTES: [facility] Imaging Services [address] [place] [address] Radiology Report MR#: [id number] Acct: [id number] Name: TIN BLACKWOOD Rep #: [id number] : 1960 F 52 From: Vazquez Kaye MD PCP: Shasha Barker MD Status: REG CLI Study: Cerv Spine 4 or 5 Views Date of Exam: 09/05/13 Exam# [id number] Ordering Dr: More Taylor MD STUDY: X-RAY [...] MD at 14:28 EDT , Service support [phone], RAD/Cerv Spine 4 or 5 Views IMPRESSION: Multilevel degenerative changes, 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 No significant interval change Electronically Signed: Glenn Kaye MD at 14:28 EDT , Service support [phone] , CC: More Taylor MD; Shasha Barker MD Sales Warehouse Driver: Signed 10-Feb-2013 Hand Min 3 Views Result: Comments: See Note; NOTES: [facility] Imaging Services [address] [place] [address] Radiology Report MR#: [id number] Acct: [id number] Name: TIN BLACKWOOD Rep #: [id number] : 1960 F 52 From: Julio Cannon MD PCP: Status: REG CLI Study: Hand Min 3 Views Date of Exam: 02/10/13 Exam# [id number] Ordering Dr: Shasha Barker MD STUDY: X-RAY [...] February 10, 2013 at 10:35:57 PM EDT [phone] Electronically Signed BP/BP If you are the refe rring physician and would like to consult with the radiologist who provided this interpretation, please contact Julio Cannon M.D. at [phone]. If this radiologist is unavailable, you will [...] these documents. CC: Shasha Barker MD Sales Warehouse Driver: Signed 10-Feb-2013 Hand Min 3 Views Result: Comments: See Note; NOTES: [facility] Imaging Services [address] [place] [address] Radiology Report MR#: [id number] Acct: [id number] Name: TIN BLACKWOOD Rep #: [id number] : 1960 F 52 From: Julio Canonn MD PCP: Status: REG CLI Study: Hand Min 3 Views Date of Exam: 02/10/13 Exam# [id number] Ordering Dr: Shasha Barker MD STUDY: X-RAY [...] February 10, 2013 at 10:36:47 PM EDT [phone] Electronically Signed BP/BP If you are the referring physician and would like to consult with the radiologist who provided this interpretation, please contact Julio Cannon M.D. at [phone]. [facility], you will be directed to another radiologist to assist. If you are a patient with a question regarding this report, please contact your referring physician directly. Professional Interpretatio n Provided By: [employer], Phone , These documents contain legally protected [...] these documents. 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 [...] kg/m2 Body Surface Area Calculated 1.83 m2 14-Ram-741630:28 Comments: orthostaticssupine: 114/68 P 88sittin/68 P 90 [...] 0.00 cm Results Date Description Value Details 37-Alx-750736:00 CCP ANTIBODY (30151) Comments: PATIENT NOT FASTINGPERFORMED BY: CB [facility] Ylaubk8107 [facility] [id number] BY: [facility] [address] [id number] CCP Antibodies IgG/IgA 5 {units} (Normal) Range: 0-19 Comments: Negative <20 Weak positive 20 - 39 Moderate positive 40 - 59 Strong positive >59 59-Xdw-397550:00 C-Reactive Protein Comments: PATIENT NOT FASTINGPERFORMED BY: [facility]6370 [facility] [id number] BY: [address] [id number] ([address]) C-Reactive Protein, Quant 7.0 mg/L (Abnormal) Range: 0.0-4.9 33-Tvr-838876:00 RHEUMATOID FACTOR-QUANT Comments: PATIENT NOT FASTINGPERFORMED BY: [facility] [place] [address]645070 [facility] [id number] BY: [address] [id number] ([address]) RA Latex Turbid. <10.0 {IU/mL} (Normal) Range: 0.0-13.9 41-Yhr-487638:00 CBC with auto diff Comments: PATIENT NOT FASTINGPERFORMED BY: [facility] HoldingL[place] 6645070 [facility] [id number] BY: [employer] [id number] ([address]) Immature Grans (Abs) 0.0 {x10E3/uL} (Normal) Range: [...] 3.77-5.28 WBC 7.8 {x10E3/uL} (Normal) Range: 3.4-10.8 67-Tif-531486:00 METABOLIC PANEL, Comments: PATIENT NOT FASTINGPERFORMED BY: CB [facility] Hjaioi0517 [facility] [id number] BY: BN [facility] Xfldzqwjfr2977 [facility] [id number] COMPREHENSIVE (85577) ALT (SGPT) 9 [iU]/L (Normal) Range: 0-32 [...] 6-24 Glucose 101 mg/dL (Abnormal) Range: 65-99 48-Tpx-817892:00 HGB A1C (88224) Comments: PATIENT NOT FASTINGPERFORMED BY: [address] [id number] BY: [address] [id number] Hemoglobin A1c 5.8 % (Abnormal) Range: 4.8-5.6 Comments: . Prediabetes: 5.7 - 6.4 Diabetes: >6.4 Glycemic control for adults with diabetes: <7.0 03-Mwi-517710:00 TSH (61562) Comments: PATIENT NOT FASTINGPERFORMED BY: [address] [id number] BY: [address] [id number] TSH 0.865 {uIU/mL} (Normal) Range: 0.450-4.500 06-Kav-629795:00 T4, FREE (THYROXINE) Comments: PATIENT NOT FASTINGPERFORMED BY: [address] [id number] BY: [address] [id number] (97488) T4,Free(Direct) 1.14 ng/dL (Normal) Range: 0.82-1.77 19-Zsr-28759:00 Tissue Biopsy See Note (Normal) Comments: [facility] [address] [place], [address] Comments: Patient: TIN BLACKWOOD : 1960 (57/F) Acct Num: [id number] Phys: Jose L Torres DDS Unit Num: [id number] Loc: [facility] Specimen: [id number] Received: 02/19/18 1513 Spec Typ e: Tissue [...] time of embedding. / JANES:tammy TC:5 CPT: 66643 HEADER OPERATION: Biopsy cheek/lip PRE-OP DIAGNOSIS: Probable fibroma TISSUE SUBMITTED: Biopsy cheek/lip MICROSCOPIC DESCRIPTION Slides are reviewed. MICROSCOPIC DI AGNOSIS Cheek/lip, biopsy: Squamous mucosa with subepithelial fibrosis, consistent with irritation fibroma. SJ:tammy 02/22/18 Signed Jarrod Holland 02/22/18 <signature on file> 6-Cwi-071451:19 HgA1C , Office (72258) HgA1C , Office 6.1 % (Normal) Range: 4.6 - 7.1 6-Wbw-028509:19 Blood Glucose , Office (00697) Blood Glucose , Office 153 (Normal) 2-Dxg-765078:19 Urinalysis, Office (95213) UA - LEUKOCYTE ESTERASE Negative (Normal) UA - NITRITE Negative (Normal) URINE UROBILINGN SRAVANI TIMED Normal mg/dL (Normal) UA - PROTEIN Negative mg/dL (Normal) UA - PH 7 (Normal) UA - BLOOD Negative (Normal) UA - SPECIFIC GRAVITY 1.010 (Normal) UA - KETONES Negative mg/dL (Normal) UA - BILIRUBIN Negative (Normal) UA - GLUCOSE Negative (Normal) 1-Edf-528383:42 CBC-Complete Blood Cnt No Diff Comments: [facility] [address] [place], [place], [address] MPV 9.7 fL (Normal) Range: 6.2-12.0 PLT [...] 4.2-5.4 WBC 8.0 K/mm3 (Normal) Range: 4.4-11.0 7-Wmj-979894:42 Differential Comment Comments: [facility] [address] [place], [place], [id number] SMEAR COMMENT SCANNED (Normal) Comments: 1+ ANISOCYTOSIS :42 Liver Profile Comments: Comments: [facility] [address] [place], [place], [id number] D BILI 0.14 mg/dL (Normal) Range: 0.00-0.30 T BILI 0.60 mg/dL (Normal) Range: 0.20-1.00 ALT 49 U/L (Normal) Range: 13-56 ALK P 46 U/L (Normal) Range: 45-117 AST 25 U/L (Normal) Range: 15-37 GLOB 3.4 g/dL (Normal) Range: 2.2-4.2 ALB 3.6 g/dL (Normal) Range: 3.2-5.0 T PROT 7.0 g/dL (Normal) Range: 6.4-8.2 58-Erj-517558:21 CBC-Complete Blood Cnt No Diff Comments: [facility] [address] [place], [place], [id number] MPV 10.2 fL (Normal) Range: 6.2-12.0 PLT [...] 4.4-11.0 :21 Liver Profile Comments: [facility] [address] [place], [address] D BILI 0.14 mg/dL (Normal) Range: 0.00-0.30 T BILI 0.80 mg/dL (Normal) Range: 0.20-1.00 ALT 50 U/L (Normal) Range: 13-56 ALK P 42 U/L (Abnormal) Range: 45-117 AST 30 U/L (Normal) Range: 15-37 GLOB 3.6 g/dL (Normal) Range: 2.2-4.2 ALB 4.0 g/dL (Normal) Range: 3.2-5.0 T PROT 7.6 g/dL (Normal) Range: 6.4-8.2 :48 HEPATIC FUNCTION PANEL Comments: PATIENT NOT FASTINGPERFORMED BY: [employer]70 [facility] [id number] (16170) ALT (SGPT) 45 [iU]/L (Abnormal) Range: 0-32 AST (SGOT) 33 [iU]/L (Normal) Range: 0-40 Alkaline Phosphatase 39 [iU]/L (Normal) Range: 39-117 Bilirubin, Direct 0.08 mg/dL (Normal) Range: 0.00-0.40 Bilirubin, Total 0.3 mg/dL (Normal) Range: 0.0-1.2 Protein, Total 6.8 g/dL (Normal) Range: 6.0-8.5 :48 T3, FREE (TRIDOTHYRONINE) (93111) Comments: PATIENT NOT FASTINGPERFORMED BY: [employer] Bgamiw0825 [facility] [id number] Triiodothyronine (T3), Free 2.6 pg/mL (Normal) Range: 2.0-4.4 :48 T4, FREE (THYROXINE) (52202) Comments: PATIENT NOT FASTINGPERFORMED BY: [facility]6370 [facility] [id number] T4,Free(Direct) 0.90 ng/dL (Normal) Range: 0.82-1.77 :48 TSH (61231) Comments: PATIENT NOT FASTINGPERFORMED BY: [facility]6370 [facility] [id number] TSH 0.333 {uIU/mL} (Abnormal) Range: 0.450-4.500 1-Tfa-568590:48 Renal function Panel (28632) Comments: PATIENT NOT FASTINGPERFORMED BY: [facility]6370 [facility] [id number] Albumin 4.6 g/dL (Normal) Range: 3.5-5.5 Phosphorus [...] 6-24 Glucose 118 mg/dL (Abnormal) Range: 65-99 82-Uia-902800:54 CBC-Complete Blood Cnt No Diff Comments: [facility] [address] [place], [address] MPV 10.3 fL (Normal) Range: 6.2-12.0 PLT [...] 4.2-5.4 WBC 7.3 K/mm3 (Normal) Range: 4.4-11.0 06-Dnq-921826:54 Liver Profile Comments: [facility] [address] [place], [place], [address] D BILI 0.09 mg/dL (Normal) Range: 0.00-0.30 T BILI 0.40 mg/dL (Normal) Range: 0.20-1.00 ALT 49 U/L (Normal) Range: 13-56 ALK P 58 U/L (Normal) Range: 45-117 AST 22 U/L (Normal) Range: 15-37 GLOB 3.4 g/dL (Normal) Range: 2.2-4.2 ALB 3.9 g/dL (Normal) Range: 3.2-5.0 T PROT 7.3 g/dL (Normal) Range: 6.4-8.2 40-Maw-006017:13 Liver Profile Comments: [facility] [address] [place], [place], [address] D BILI 0.07 mg/dL (Normal) Range: 0.00-0.30 T BILI 0.40 mg/dL (Normal) Range: 0.20-1.00 ALT 49 U/L (Normal) Range: 13-56 Comments: Please note revised ALT reference range zajxkyxzy06/28/2018. ALK P 53 U/L (Normal) Range: 45-117 AST 22 U/L (Normal) Range: 15-37 GLOB 3.3 g/dL (Normal) Range: 2.2-4.2 ALB 4.0 g/dL (Normal) Range: 3.2-5.0 T PROT 7.3 g/dL (Normal) Range: 6.4-8.2 9-Buf-857797:59 CBC-Complete Blood Cnt No Diff Comments: [facility] [address] [place], [place], [id number] MPV 10.4 fL (Normal) Range: 6.2-12.0 PLT [...] 4.2-5.4 WBC 9.1 K/mm3 (Normal) Range: 4.4-11.0 7-Zck-802985:59 Erythrocyte Sed Rate Comments: [facility] [address] [place], [address] SED RATE 15 mm/h (Normal) Range: 0-30 67-Xgn-127421:22 CBC-Complete Blood Cnt No Diff Comments: [facility] [address] [place], [place], [id number] MPV 10.4 fL (Normal) Range: 6.2-12.0 PLT [...] 4.2-5.4 WBC 7.6 K/mm3 (Normal) Range: 4.4-11.0 19-Mid-701102:22 Liver Profile Comments: Comments: [facility] [address] [place], [address] D BILI 0.12 mg/dL (Normal) Range: 0.00-0.30 T BILI 0.60 mg/dL (Normal) Range: 0.20-1.00 ALT 38 U/L (Normal) Range: 13-56 Comments: Please note revised ALT reference range zmytmorjh83/28/2018. ALK P 53 U/L (Normal) Range: 45-117 AST 31 U/L (Normal) Range: 15-37 GLOB 3.2 g/dL (Normal) Range: 2.2-4.2 ALB 3.7 g/dL (Normal) Range: 3.2-5.0 T PROT 6.9 g/dL (Normal) Range: 6.4-8.2 14-Kls-971551:33 CBC-Complete Blood Cnt No Diff Comments: [facility] [address] [place] [place], [address] MPV 10.7 fL (Normal) Range: [...] 4.2-5.4 WBC 11.5 K/mm3 (Abnormal) Range: 4.4-11.0 46-Vuo-627101:33 Liver Profile Comments: [facility] [address] [place], [address] D BILI 0.09 mg/dL (Normal) Range: 0.00-0.30 T BILI 0.60 mg/dL (Normal) Range: 0.20-1.00 ALT 33 U/L (Normal) Range: 13-56 Comments: Please note revised ALT reference range rjaeawgdy03/28/2018. ALK P 59 U/L (Normal) Range: 45-117 AST 15 U/L (Normal) Range: 15-37 GLOB 3.7 g/dL (Normal) Range: 2.2-4.2 ALB 3.8 g/dL (Normal) Range: 3.2-5.0 T PROT 7.5 g/dL (Normal) Range: 6.4-8.2 92-Fqi-883064:29 CBC-Complete Blood Cnt No Diff Comments: [facility] Ja[address]qiqrc5756 [facility] [address] [place], [place], [id number] MPV 11.1 fL (Normal) Range: 6.2-12.0 PLT [...] 4.2-5.4 WBC 9.5 K/mm3 (Normal) Range: 4.4-11.0 46-Bry-898568:29 Liver Profile Comments: [facility] [address] [place], [place], [address] D BILI 0.10 mg/dL (Normal) Range: 0.00-0.30 T BILI 0.40 mg/dL (Normal) Range: 0.20-1.00 ALT 29 U/L (Normal) Range: 12-78 ALK P 51 U/L (Normal) Range: 45-117 AST 12 U/L (Abnormal) Range: 15-37 GLOB 3.6 g/dL (Normal) Range: 2.2-4.2 ALB 3.9 g/dL (Normal) Range: 3.4-5.0 Comments: Please note revised Albumin AND Globulin reference rangeeffective 2017. T PROT 7.5 g/dL (Normal) Range: 6.4-8.2 9-Uek-377815:34 Gram Stain w/Sputum Cult Comments: PATIENT NOT FASTINGPERFORMED BY: [facility] HoldingLovelace Women[facility] HospitalBfltan9224 [facility] [id number] Information: SRC:SP Rflx Gram Stain Evaluation GSACC (Normal) Comments: This specimen is of good quality and is acceptable for routinebacterial culture. Result 1 GNRF (Normal) Comments: Few gram negative rods.Few gram positive cocciRare gram negative coccobacilli Epithelial Cells Few (Normal) White Blood Cells None seen (Normal) 9-Uor-639857:34 Sputum Culture Comments: PATIENT NOT FASTINGPERFORMED BY: [facility] Ecyheg8550 [facility] [id number] Result 1 RRF (Normal) Comments: Routine respiratory roxanne Lower Respiratory Culture Final report (Normal) [id number]:12 TSH ([id number]) Comments: PATIENT NOT FASTINGPERFORMED BY: [facility] [facility] [id number] TSH 0.434 {uIU/mL} (Abnormal) Range: 0.450-4.500 [id number]-Eca-[id number]:12 T3, FREE (TRIDOTHYRONINE) (31012) Comments: PATIENT NOT FASTINGPERFORMED BY: [facility]rapeuticsM[facility] [facility] [id number] Triiodothyronine,Free,Serum 3.0 pg/mL (Normal) Range: 2.0-4.4 9-Aeb-[id number]:12 T4, FREE (THYROXINE) (04999) Comments: PATIENT NOT FASTINGPERFORMED BY: [facility]rapeuticsM[facility] [facility] [id number]; review 05/15 T4,Free(Direct) 1.22 ng/dL (Normal) Range: 0.82-1.77 21-Jjj-[id number]:14 CBC-Complete Blood Cnt No Diff Comments: [facility] [id number] [place] [address] [place], [place], [id number] MPV 10.8 fL (Normal) Range: 6.2-12.0 PLT [...] 4.2-5.4 WBC 7.7 K/mm3 (Normal) Range: 4.4-11.0 70-Pwp-379375:14 Liver Profile Comments: [facility] [address] [facility] [address] [place], [place], [address] D BILI 0.11 mg/dL (Normal) Range: 0.00-0.30 T BILI 0.60 mg/dL (Normal) Range: 0.20-1.00 ALT 31 U/L (Normal) Range: 12-78 ALK P 51 U/L (Normal) Range: 45-117 AST 22 U/L (Normal) Range: 15-37 GLOB 3.3 g/dL (Normal) Range: 2.2-4.2 ALB 3.7 g/dL (Normal) Range: 3.4-5.0 Comments: Please note revised Albumin AND Globulin reference rangeeffective 2017. T PROT 7.0 g/dL (Normal) Range: 6.4-8.2 8-Cmk-509370:36 CBC-Complete Blood Cnt No Diff Comments: BONEZZI ORDERED TSH,FT4,FT3,AND TPOSTANDING [facility] [address] [place], [place], [address] MPV 10.7 fL (Normal) Range: 6.2-12.0 PLT [...] 4.2-5.4 WBC 6.9 K/mm3 (Normal) Range: 4.4-11.0 7-Hwz-287922:36 Free T3 Comments: [facility] [address] [place], [place], [address] FREE T3 2.6 pg/mL (Normal) Range: 2.18-3.98 3-Mgt-456845:36 Liver Profile Comments: [facility] [address] [place], [place], [address] D BILI 0.07 mg/dL (Normal) Range: 0.00-0.30 T BILI 0.40 mg/dL (Normal) Range: 0.20-1.00 ALT 32 U/L (Normal) Range: 12-78 ALK P 48 U/L (Normal) Range: 45-117 AST 15 U/L (Normal) Range: 15-37 GLOB 3.2 g/dL (Normal) Range: 2.2-4.2 ALB 3.7 g/dL (Normal) Range: 3.4-5.0 Comments: Please note revised Albumin AND Globulin reference rangeeffective 2017. T PROT 6.9 g/dL (Normal) Range: 6.4-8.2 3-Cil-156072:36 T4 Free Direct Comments: [facility] [address] [place], [place], [address] T4 FREE DIRECT 0.84 ng/dL (Normal) Range: 0.76-1.46 1-Buk-241892:36 Thyroid Peroxidase AB Comments: [facility] (refer to report for specific site)refer to report for address and phone number TPO AB 6601 11 {IU/mL} (Normal) Range: 0-34 Comments: Performed at: [address] [id number] Director: Jose L Patel PhD, Phone: [phone] 7-Srl-460347:36 Thyroid Stim Hormone (TSH) Comments: [facility] [address] [place], [address] TSH 0.36 {uIU/mL} (Normal) Range: 0.358-3.74 00-Yoo-677206:03 CBC-Complete Blood Cnt No Diff Comments: [facility] [address] [place], [address] MPV 10.4 fL (Normal) Range: [...] 4.2-5.4 WBC 9.2 K/mm3 (Normal) Range: 4.4-11.0 54-Cxj-191512:03 Liver Profile Comments: [facility] [address] [place], [address] D BILI 0.11 mg/dL (Normal) [...] T PROT 7.5 g/dL (Normal) Range: 6.4-8.2 31-Xgo-464650:28 CBC-Complete Blood Cnt No Diff Comments: [facility] [address] [place], [place], [address] MPV 11.1 fL (Normal) Range: 6.2-12.0 PLT [...] 4.2-5.4 WBC 8.7 K/mm3 (Normal) Range: 4.4-11.0 49-Vqw-147534:28 Liver Profile Comments: [facility] [address] [place], [place], [address] D BILI 0.13 mg/dL (Normal) Range: 0.00-0.30 [...] :57 CBC-Complete Blood Cnt No Diff Comments: [address] [place], [place], [phone]) MPV 10.9 fL (Normal) Range: 6.2-12.0 PLT [...] No Diff Comments: [facility] [address] [place], [place], [phone]) MPV 11.2 fL (Normal) Range: 6.2-12.0 PLT [...] (Normal) Range: 4.4-11.0 :07 Liver Profile Comments: [address] [place], [address] D BILI 0.09 mg/dL (Normal) Range: 0.00-0.30 T BILI 0.20 mg/dL (Normal) Range: 0.20-1.00 ALT 34 U/L (Normal) Range: 12-78 ALK P 55 U/L (Normal) Range: 45-117 AST 15 U/L (Normal) Range: 15-37 GLOB 3.3 g/dL (Normal) Range: 2.3-3.5 ALB 3.5 g/dL (Normal) Range: 3.4-5.0 T PROT 6.8 g/dL (Normal) Range: 6.4-8.2 46-Yrn-638144:40 URINE ALISSON CULTURE-IDENTIFICATN Comments: PERFORMED BY: [facility] Aopdfo0278 [facility] [id number] Information: SRC: (10079) Antimicrobial MIHEAD (Normal) Comments: S = Susceptible; [...] mL (Abnormal) Urine Final report Culture,Comprehensive (Abnormal) 54-Fgc-428128:47 Urinalysis, Office (97219) UA - LEUKOCYTE ESTERASE Small (Normal) UA - NITRITE Negative (Normal) URINE UROBILINGN SRAVANI TIMED Normal mg/dL (Normal) UA - PROTEIN Negative mg/dL (Normal) UA - PH 6 (Abnormal) UA - BLOOD Negative (Normal) UA - SPECIFIC GRAVITY 1.005 (Normal) UA - KETONES Negative mg/dL (Normal) UA - BILIRUBIN Negative (Normal) UA - GLUCOSE Negative (Normal) 42-Ncz-518813:58 Basic Metabolic Profile (BMP) Comments: 'TROP' Serial specimen #1, #2, #3, or #4: [facility] [address] [place], [place], [address] GAP 10 (Normal) Range: 5-15 CO2 25.0 [...] 7-18 GLU 92 mg/dL (Normal) Range: 70-110 56-Arg-071321:58 CBC W/Diff, Automated Comments: [facility] [address] [place], [place], [address] Absolute Lymph 1.13 {X10_3/ul} (Normal) Range: 0.83-4.51 [...] specimen #1, #2, #3, or #4: [facility] Pmjqroardw7132 [facility] [place], [place], [address] TROPONIN-I 0.11 ng/mL (Abnormal) Comments: TROPONIN-I EXPECTED VALUES <0.05 NEGATIVE 0.06 - 0.59 AT RISK OF LA > OR = 0.60 SUGGEST LA :56 CBC W/Diff, Automated Comments: [facility] C[address]mnhzsw3464 [facility] [place], [place], [phone] Absolute Lymph 1.30 {X10_3/ul} (Normal) Range: 0.83-4.51 [...] 4.2-5.4 WBC 9.2 K/mm3 (Normal) Range: 4.4-11.0 48-Hgp-889956:56 Comprehensive Metabolic Profil Comments: [facility] [address] [place], [place], [address] GAP 8 (Normal) Range: 5-15 CO2 29.0 [...] <126 mg/dLsuggests IMPAIRED HOMEOSTASIS per A.D.A. criteria. 88-Ags-286587:39 CBC W/Diff, Automated Comments: [facility] [address] [place], [address] Absolute Lymph 1.40 {X10_3/ul} (Normal) Range: 0.83-4.51 [...] 4.2-5.4 WBC 8.8 K/mm3 (Normal) Range: 4.4-11.0 14-Tmk-051132:39 Comprehensive Metabolic Profil Comments: [facility] [address] [place], [place], [address] GAP 7 (Normal) Range: 5-15 CO2 30.0 [...] 126 mg/dLsuggests DIABETES MELLITUS per A.D.A. criteria. 86-Okk-673595:43 Homocysteine, Plasma (43933) Comments: PATIENT NOT FASTINGPERFORMED BY: [facility]Co[facility] CenterAejfkk6023 [facility] [id number] Homocyst(e)ine, Plasma 9.3 umol/L (Normal) Range: 0.0-15.0 68-Buk-731826:12 CRP, High Sensitivity Cardiac Comments: [facility] [address] [place], [place], [address] CRP HIGH SENS 1.10 mg/L (Normal) Comments: Low Relative Risk of CVD <1.0 mg/L Average Relative Risk of CVD 1.0 - 3.0 mg/L High Relative Risk of CVD >3.0 mg/L 02-Pjr-342364:12 Erythrocyte Sed Rate Comments: [facility] [address] [place], [place], [address] SED RATE 24 mm/h (Normal) Range: 0-30 7-Hpi-883672:28 CBC WITH MANUAL DIFF (34762) Comments: PATIENT NOT FASTINGPERFORMED BY: [facility] Lmmmjs3064 [facility] [id number] Immature Grans (Abs) 0.0 {x10E3/uL} (Normal) Range: [...] 3.77-5.28 WBC 7.3 {x10E3/uL} (Normal) Range: 3.4-10.8 6-Wjn-494045:28 Metabolic Panel, Basic Comments: PATIENT NOT FASTINGPERFORMED BY: [facility]Co[facility] CenterDaojep1307 [facility] [id number]; will review at 09/04 appt (84236) Calcium, Serum 9.4 mg/dL (Normal) Range: 8.7-10.2 [...] Glucose, Serum 107 mg/dL (Abnormal) Range: 65-99 59-Wuj-602389:31 CBC With Differential/Platelet Comments: PATIENT NOT FASTINGPERFORMED BY: [facility] CenterLkskzc2241 [facility] [id number] Immature Grans (Abs) 0.0 {x10E3/uL} Range: 0.0-0.1 [...] (Normal) Comments: PATIENT NOT FASTINGPERFORMED BY: [facility] Lugggk4015 [facility] [id number] 13:31 Comments: WRITTEN AUTHORIZATION RECEIVED.AUTHORIZATION RECEIVED FROM JACKIE BRUNO LPN [id number] BY RADHA EMMANUEL 08-Uog-297005:31 CBC (Auto) (35977) Comments: PATIENT NOT FASTINGPERFORMED BY: [facility]6370 [facility] [id number] Platelets 416 {x10E3/uL} (Abnormal) Range: 150-379 RDW 17.2 % (Abnormal) Range: 12.3-15.4 MCHC 32.4 g/dL (Normal) Range: 31.5-35.7 MCH 27.0 pg (Normal) Range: 26.6-33.0 MCV 83 fL (Normal) Range: 79-97 Hematocrit 36.7 % (Normal) Range: 34.0-46.6 Hemoglobin 11.9 g/dL (Normal) Range: 11.1-15.9 RBC 4.40 {x10E6/uL} (Normal) Range: 3.77-5.28 WBC 12.7 {x10E3/uL} (Abnormal) Range: 3.4-10.8 62-Mqf-169388:31 Magnesium (25004) Comments: PATIENT NOT FASTINGPERFORMED BY: [facility]6370 [facility] [id number] Magnesium, Serum 2.0 mg/dL (Normal) Range: 1.6-2.3 00-Gkf-526813:31 Renal function Panel (96154) Comments: PATIENT NOT FASTINGPERFORMED BY: [facility]6370 [facility] [id number] Albumin, Serum 4.1 g/dL (Normal) Range: 3.5-5.5 [...] Glucose, Serum 99 mg/dL (Normal) Range: 65-99 7-Wgl-181435:16 Lactic Acid Comments: [facility] [address] [place], [place], [address] LACTIC ACID 1.2 mmol/L (Normal) Range: 0.4-2.0 :52 BNP,B-Type NATRIURETIC PEPTIDE Comments: [facility] [address] [place], [place], [address] B-TYPE BRENT PEP 89.7 pg/mL (Normal) Range: 0-100 :52 CBC W/Diff, Automated Comments: [facility] [address] [place], [place], [address] Absolute Lymph 1.12 {X10_3/ul} (Normal) Range: 0.83-4.51 [...] specimen #1, #2, #3, or #4: [facility] [address] [place], [place], [address] GAP 5 (Normal) Range: 5-15 CO2 24.0 [...] specimen #1, #2, #3, or #4: [facility] [address] [place], [address] TROPONIN-I 0.73 ng/mL (Abnormal) Comments: TROPONIN-I EXPECTED VALUES <0.05 NEGATIVE 0.06 - 0.59 AT RISK OF LA > OR = 0.60 SUGGEST LA :43 Base Excess ISTAT Comments: [facility] LaboratoryPoint of [address] [place] [address] BE ISTAT 1 mmol/L (Normal) :43 Bicarbonate ISTAT Comments: [place] [address] [address] HCO3 ISTAT 26 mmol/L (Normal) Range: 22-26 Comments: Site = R RadialDevice = Vent MaskFIO2 = 40Results To = ED MDTime Given = 949 :43 Blood Gas Specimen Type Comments: [place] [address] [place] [address] BLD GAS TYPE ART (Normal) :43 pCO2 - ISTAT 40.0 {mmHg} (Normal) Comments: [place] [address] [address] [id number] Range: 35-45 :43 pH - I-STAT 7.42 (Normal) Comments: [place] [address] [place] [address] Range: 7.35-7.45 :43 PO2 I-STAT 68 {mmHG} (Abnormal) Comments: [place] [address] [place] [address] Range: 75-100 :43 SO2 ISTAT 94 % (Abnormal) Comments: [place] [address] [address] [address] Range: 95-99 :43 Total Carbon Dioxide ISTAT Comments: [place] [address] [place] [address] TOTAL CO2 ISTAT 27 mmol/L (Normal) 61-Rfx-490677:06 CBC W/Diff, Automated Comments: [place] [address] [address], [address] Absolute Lymph 1.60 {X10_3/ul} [...] 4.2-5.4 WBC 6.3 K/mm3 (Normal) Range: 4.4-11.0 49-Dqn-367266:06 Comprehensive Metabolic Profil Comments: [facility] [address] [place], [place], [address] GAP 5 (Normal) Range: 5-15 CO2 30.0 [...] 7-18 GLU 102 mg/dL (Normal) Range: 70-110 46-Dgj-841144:30 PAP I-G w/rfx hrHPV Comments: CYTOLOGY INFORMATION:- CLINICAL INFORMATION:- DATE LMP/MENOPAUSE: MENOPAUSE- COLLECTION VIAL: Thin Prep Vial- HOTEL SUPPLIES SALESPERSON SOURCE: CERVICAL/ENDOCERVICAL- COLLECTION TECHNIQUE: BRUSH/SPATULACYTOLOGY INFORMATION :- CLINICAL INFORMATION:- DATE LMP/MENOPAUSE: MENOPAUSE- COLLECTION VIAL: Thin Prep Vial- HOTEL SUPPLIES SALESPERSON SOURCE: CERVICAL/ENDOCERVICAL- COLLECTION TECHNIQUE: BRUSH/SPATULASpecimen Comment: [id number] saira Comment: No. of containers..01 CYTYC Thin Prep VialLabCorp (refer to report for specific site)refer to report for address and phone number HPV RFLX Comment (Normal) Comments: The HPV DNA reflex criteria were not met with this specimenresult therefore, no HPV testing was performed.Performed at: [address]Kelby guerratonJessica [id number] Director: Selene Munoz MD, Phone: [phone] PAPSMR Comment (Normal) Comments: The Pap smear [...] system. PERFORM Comment (Normal) Comments: Dioni Pereira, Pilot Fuel Engineer (ASCP) ADEQ Comment (Normal) Comments: Satisfactory for evaluation. Endocervical and/or squamous metaplasticcells (endocervical component) are present. DIAGN Comment (Normal) Comments: NEGATIVE FOR INTRAEPITHELIAL LESION AND MALIGNANCY. 43-Cqb-945021:09 CBC W/Diff, Automated Comments: [facility] [address] [place], [place], [address] Absolute Lymph 1.61 {X10_3/ul} (Normal) Range: 0.83-4.51 [...] 4.2-5.4 WBC 7.3 K/mm3 (Normal) Range: 4.4-11.0 36-Eud-959371:09 Comprehensive Metabolic Profil Comments: [facility] [address] [place], [place], [address] GAP 8 (Normal) Range: 5-15 CO2 30.0 [...] 7-18 GLU 90 mg/dL (Normal) Range: 70-110 37-Jqb-098549:09 Lipid Profile Comments: [facility] [address] [place], [place], [address] VLDL 11 mg/dL (Normal) Range: 5-40 LDL [...] 200-240 mg/dL Borderline >240 mg/dL High Risk 65-Tdm-079306:56 Ferritin (38017) Comments: PATIENT NOT FASTINGPERFORMED BY: [facility] Dsqbdf0150 [facility] [id number] Information: NURSE DRAW Ferritin, Serum 35 ng/mL (Normal) Range: 15-150 96-Vgx-659671:06 Lipid Profile Comments: [facility] [address] [place], [place], [address] VLDL 14 mg/dL (Normal) Range: 5-40 LDL [...] 200-240 mg/dL Borderline >240 mg/dL High Risk 01-Chu-242276:11 CBC W/Diff, Automated Comments: [facility] [address] [place], [place], [address] Absolute Lymph 1.06 {X10_3/ul} (Normal) Range: 0.83-4.51 [...] 4.2-5.4 WBC 9.4 K/mm3 (Normal) Range: 4.4-11.0 25-Oey-660770:11 Comprehensive Metabolic Profil Comments: [facility] [address] [place], [place], [address] GAP 9 (Normal) Range: 5-15 CO2 29.0 [...] 7-18 GLU 100 mg/dL (Normal) Range: 70-110 00-Saf-491954:59 CBC W/Diff, Automated Comments: [facility] [address] [place], [place], [address] Absolute Lymph 1.33 {X10_3/ul} (Normal) Range: 0.83-4.51 [...] 4.2-5.4 WBC 3.7 K/mm3 (Abnormal) Range: 4.4-11.0 73-Gyt-775211:59 Comprehensive Metabolic Profil Comments: [facility] [address] [place], [place], [address] GAP 7 (Normal) Range: 5-15 CO2 28.0 [...] 7-18 GLU 84 mg/dL (Normal) Range: 70-110 6-Vpb-629210:15 CBC W/Diff, Automated Comments: [facility] [address] [place], [place], [address] Absolute Lymph 0.51 {X10_3/ul} (Abnormal) Range: 0.83-4.51 [...] 4.2-5.4 WBC 9.8 K/mm3 (Normal) Range: 4.4-11.0 2-Ljl-656382:15 Comprehensive Metabolic Profil Comments: [facility] [address] [place], [place], [address] GAP 3 (Abnormal) Range: 5-15 CO2 28.0 [...] 7-18 GLU 107 mg/dL (Normal) Range: 70-110 7-Mht-426081:15 Quantiferon TB-Gold Comments: [facility] (refer to report [...] cdc.gov/tb for further details.Performed at: CB - LabCoLeah Ville [id number] [place], [place] [id number] Director: Jose L Patel PhD, Phone: [phone] QFT AG - NIL 0 {IU/mL} (Normal) [...] of cells for the productionof interferon gamma. 2-Bqg-173118:43 CBC W/Diff, Automated Comments: [facility] [address]zfgueoss[address] [facility] [place], [place], [address] Absolute Lymph 0.86 {X10_3/ul} (Normal) Range: 0.83-4.51 [...] 4.2-5.4 WBC 6.3 K/mm3 (Normal) Range: 4.4-11.0 6-Qyu-289439:43 Comprehensive Metabolic Profil Comments: [facility] [address] [place], [address] GAP 9 (Normal) Range: 5-15 CO2 29.0 [...] <126 mg/dLsuggests IMPAIRED HOMEOSTASIS per A.D.A. criteria. 52-Ozi-820254:00 CORTISOL SERUM Comments: [facility] [address] [place], [place], [address] CORTISOL 11.80 ug/dL (Normal) Range: 3.09-22.40 Comments: Adult (AM) 4.30 - 22.40 ug/dL Adult (PM) 3.09 - 16.66 ug/dL 89-Tnz-459543:00 DHEA Sulfate Comments: Has Patient had Radioactive Injection for X-ray?: N[facility] (refer to report for specific site)refer to report for address and phone number DHEA SULF 4020 35.6 ug/dL (Abnormal) Range: 41.2-243.7 Comments: Performed at: [address] [id number] Director: Jose L Patel PhD, Phone: [phone] 36-Ywf-446756:00 Estradiol Comments: [facility] [address] [place], [place], [address] ESTRADIOL 11.4 pg/mL (Normal) Comments: NORMAL REFERENCE [...] SHOULD BE USED TO DETERMINE ESTRADIOL CONCENTRATION. 52-Bdf-774083:00 Free T3 Comments: [facility] [address] [place], [place], [address] FREE T3 3.1 pg/mL (Normal) Range: 2.18-3.98 51-Jly-960951:00 Hemoglobin A1c Comments: [place] [address] [place], [address] HGB A1C 6.1 % (Normal) Range: 4.2-6.3 07-Hzg-686118:00 Progesterone Level Comments: [address] [place], [address] Progesterone 2.17 ng/mL (Normal) Comments: Progesterone Reference Table: UNITS Female: Follicular 0.15 - 1.40 ng/mL Luteal 3.34 - 25.56 ng/mL Mid-luteal 4.44 - 28.03 ng/mL Postmenopausal 0.0 - 0.73 ng/mL : 1st Trimester 11.22 - 90.00 ng /mL 2nd Trimester 25.55 - 89.40 ng/mL 3rd Trimester 48.40 -422.50 ng/mL 75-Fub-519943:00 T4 Free Direct Comments: [address] [place], [address] T4 FREE DIRECT 0.80 ng/dL (Normal) Range: 0.76-1.46 41-Hkv-122879:00 Testosterone, Serum Total Comments: [address] [place], [address] Testosterone 20 ng/dL (Normal) Range: 14-76 69-Flx-382833:00 Thyroid Stim Hormone (TSH) Comments: [address] [place], [address] TSH 0.46 {uIU/mL} (Normal) Range: 0.358-3.74 12-Ket-150746:30 PAP I-G w/rfx hrHPV Comments: CYTOLOGY INFORMATION:- CLINICAL INFORMATION:- DATE LMP/MENOPAUSE: MENOPAUSE- COLLECTION VIAL: Thin Prep Vial- HOTEL SUPPLIES SALESPERSON SOURCE: CERVICAL/ENDOCERVICAL- COLLECTION TECHNIQUE: BRUSH/SPATULASpecimen Comment: [id number] Comment: No. of containers..01 CYTYC Thin Prep VialLabCorp (refer to report for specific site)refer to report for address and phone number HPV RFLX Comment (Normal) Comments: The HPV DNA reflex criteria were not met with this specimenresult therefore, no HPV testing was performed.Performed at: [address] [place] [id number] Director: Selene Munoz MD, Phone: [phone] PAPSMR Comment (Normal) Comments: The Pap smear [...] system. PERFORM Comment (Normal) Comments: Luisa Washington, Pilot Fuel Engineer (ASCP) ADEQ Comment (Normal) Comments: Satisfactory for evaluation. No endocervical component is identified. DIAGN Comment (Normal) Comments: NEGATIVE FOR INTRAEPITHELIAL LESION AND MALIGNANCY. :26 D-Dimer Quantitative (DVT/PE) Comments: [facility] Ydybfegqrw1402 [facility], [address] D-DIMER QUANT 0.30 {FEU/ug/m} (Normal) Range: 0.27-0.49 Comments: NORMAL D-Dimer level (<0.50) indicates no DVT or PE. :25 CK-MB Quantitative and Index Comments: 'TROP' Serial specimen #1, #2, #3, or #4: INT'CKMB' Serial Specimen #1, #2 or #3? [facility] Ijiowpjfiu0282 [facility], [address] CKRI 1.3 % (Normal) Range: 0.0-1.4 Comments: RELATIVE INDEX >1.5% IS PRESUMPTIVELY POSITIVE CPKMB 2.2 ng/mL (Normal) Range: 0.0-5.0 Comments: CK-MB and RI Interpretation MB Relative Index Non-AMI <or= 5 NA Indeterminate > 5 <or= 4 AMI > 5 > 4 CPK TOTAL 170 U/L (Normal) Range: 26-192 3-Guv-816042:25 Troponin I (91951) Comments: 'TROP' Serial specimen #1, #2, #3, or #4: INT'CKMB' Serial Specimen #1, #2 or #3? [facility] [address] [place], [place], [address] TROPONIN-I < 0.02 ng/mL (Normal) Comments: TROPONIN-I EXPECTED VALUES <0.05 NEGATIVE 0.06 - 0.59 AT RISK OF LA > OR = 0.60 SUGGEST LA 9-Mvn-785705:13 Urinalysis, Office (16236) UA - LEUKOCYTE ESTERASE Negative (Normal) UA - NITRITE Negative (Normal) URINE UROBILINGN SRAVANI TIMED Normal mg/dL (Normal) UA - PROTEIN Negative mg/dL (Normal) UA - PH 6 (Abnormal) UA - BLOOD Negative (Normal) UA - SPECIFIC GRAVITY 1.020 (Normal) UA - KETONES Negative mg/dL (Normal) UA - BILIRUBIN Negative (Normal) UA - GLUCOSE Negative (Normal) 97-Jht-783888:41 CBC W/Diff, Automated Comments: [facility] Lfxejnlemv6056 [facility], [address] Absolute Lymph 1.18 {X10_3/ul} (Normal) [...] 4.2-5.4 WBC 8.8 K/mm3 (Normal) Range: 4.4-11.0 95-Mpt-353068:41 Comprehensive Metabolic Profil Comments: [facility] [address] [place], [address] GAP 9 (Normal) Range: 5-15 CO2 27.0 [...] W/Diff, Automated Comments: [facility] [address] [place], [address] Absolute Lymph 1.54 {X10_3/ul} (Normal) [...] 4.2-5.4 WBC 6.6 K/mm3 (Normal) Range: 4.4-11.0 9-Ese-831470:41 Comprehensive Metabolic Profil Comments: [facility] [address] [place], [place], [address] GAP 7 (Normal) Range: 5-15 CO2 30.0 [...] 7-18 GLU 102 mg/dL (Normal) Range: 70-110 10-Qip-103551:44 CBC W/Diff, Automated Comments: [facility] [address] [place], [place], [address] Absolute Lymph 3.85 {X10_3/ul} (Normal) Range: 0.83-4.51 [...] 4.2-5.4 WBC 10.7 K/mm3 (Normal) Range: 4.4-11.0 57-Haq-894485:44 Comprehensive Metabolic Profil Comments: ORDERED LIPID,CMPDRMERA ORDERED CMP,[facility] [id number] [place], [address] GAP 8 (Normal) Range: 5-15 CO2 29.0 [...] 7-18 GLU 78 mg/dL (Normal) Range: 70-110 76-Bpx-196030:44 Lipid Profile Comments: ORDERED LIPID,CMP ORDERED CMP,[facility] [address] [place], [address] VLDL 33 mg/dL (Normal) Range: [...] 200-240 mg/dL Borderline >240 mg/dL High Risk [id number] CBC W/Diff, Automated Comments: [facility] [address] [place], [place], [id number] Absolute Lymph 1.65 {X10_3/ul} (Normal) Range: 0.83-4.51 [...] 4.2-5.4 WBC 12.5 K/mm3 (Abnormal) Range: 4.4-11.0 [id number]-Yzu-681203:46 Comprehensive Metabolic Profil Comments: [facility] [address] [place], [place], [id number] GAP 9 (Normal) Range: 5-15 CO2 31.0 [...] 126 mg/dLsuggests DIABETES MELLITUS per A.D.A. criteria. [id number] Culture, Sputum Comments: [facility] [address] [place], [address] CUSP See Note (Normal) Comments: Gram StainAcceptable Specimen? Yes (<25 Epithelial cells per/lpf) Gram Stain Rare Gram positive rods 3+ Gram positive cocci 3+ White Blood Cells Rare Epithelial cells Resp. CultureMixed normal respiratory roxanne. No Streptococcus pneumoniae, beta-hemolytic Streptococcus or Staphylococcus aureus isolated. 71-[id number]:13 CBC W/Diff, Automated Comments: Test performed at:[facility] [address] [place] [address] Absolute Lymph 1.78 {X10_3/ul} (Normal) [...] 4.2-5.4 WBC 5.3 K/mm3 (Normal) Range: 4.4-11.0 05-Qsf-268559:13 Comprehensive Metabolic Profil Comments: Test performed at:[facility] [id number], [place] [id number] GAP 7 (Normal) Range: 5-15 CO2 26.0 [...] Comments: Please note revised CREATININE reference range rxtuopsvq26/22/2015. BUN 18 mg/dL (Normal) Range: 7-18 GLU 124 mg/dL (Abnormal) Range: 70-110 Comments: Fasting Glucose result from 110 to <126 mg/dLsuggests IMPAIRED HOMEOSTASIS per A.D.A. criteria. 4-Qaf-789318:5 ENDOMETRIAL BX/CURETTINGS See Note (Normal) Comments: Test performed at:[facility] [address] [place] [address] 4 Comments: Patient: TIN BLACKWOOD : 1960 (53/F) Acct Num: [id number] Phys: Allie Bales MD Unit Num: [id number] Loc: [facility] [place] Specimen: [id number] Received: 11/06/14 - 1230 Spec Type: ENDOM BX/C TISSUES TISSUES: GROSS DESCRIPTION Received is one container labeled with the patient name and designated endometrial curettings. The specimen consists of multiple fragments o f hemorrhagic soft tissue measuring in aggregate 5 x 2 x 0.2 cm. The entire specimen is submitted in two cassettes. / SJ:yi 11/06/14 TC:5 CPT: 95600 HEADER OPERATION: Hysteroscopy, diagnosti c, D AND C PRE-OP DIAGNOSIS: Menorrhagia, thickened endometrium TISSUE SUBMITTED: Endometrial curettings MICROSCOPIC DIAGNOSIS Endometrium, curettings: Secretory endometrium. AM:s l 11/07/14 Signed [facility] 11/07/14 <signature on file> 0-Lpl-513973:48 Partial Thromboplast Time Comments: Test performed at:[facility] [address] [place] [address] PTT 26.6 s (Normal) Range: 24.1-36.2 8-Ebj-135395:48 Prothrombin Time w/INR Comments: Test performed at:[facility] [address] [place] [address] INR 0.9 (Normal) PROTIME 12.2 s (Normal) Range: 11.7-14.9 :18 ,Urine Comments: Order Date: 11/06/14Has pt arrived? YTest performed at:[facility] [address] [place] [address] HCGUQUAL Negative {Negative} (Normal) Comments: Very dilute urine specimens, as indicated by a low specificgravity, may not contain service representative levels of hCG.If is still suspected, a first morning urinespecimen should be collected 48 hours later and tested. :26 Estradiol Comments: Test performed at:[facility] [address] [place] [address] ESTRADIOL 13.1 pg/mL (Normal) Comments: [...] Comments: Test performed at:[facility] Huwmqjrdse0056 [facility] [address] FREE T3 3.0 pg/mL (Normal) Range: 2.18-3.98 :26 Hemoglobin A1c Comments: Test performed at:[facility] Jvvtatmakg3991 [facility] [address] ; ordered by other doctor HGB A1C 5.7 % (Normal) Range: 4.2-6.3 :26 Progesterone Level Comments: Test performed at:[facility] Vmpgdvpwdq3742 [facility] [place] [address] Progesterone 0.34 ng/mL (Normal) Comments: Progesterone Reference Table: UNITS Female: Follicular 0.15 - 1.40 ng/mL Luteal 3.34 - 25.56 ng/mL Mid-luteal 4.44 - 28.03 ng/mL Postmenopausal 0.0 - 0.73 ng/mL : 1st Trimester 11.22 - 90.00 ng /mL 2nd Trimester 25.55 - 89.40 ng/mL 3rd Trimester 48.40 -422.50 ng/mL :26 T4 Free Direct Comments: Test performed at:[facility] [address] [place] [address] T4 FREE DIRECT 0.77 ng/dL (Normal) Range: 0.76-1.46 :26 Testosterone, Serum Total Comments: Test performed at:[facility] [address] [place] [address] Testosterone 30 ng/dL (Normal) Range: 14-76 Comments: ADDENDA: ordered by Dr. Bales :26 Thyroid Stim Hormone (TSH) Comments: Test performed at:[facility] [address] [place] [address] TSH 0.84 {uIU/mL} (Normal) Range: 0.358-3.74 :03 17-Hydroxypregnenolone, MS Comments: PATIENT NOT FASTINGPERFORMED BY: [employer] Pucjiz5480 [facility] [place] [id number] BY: ES [employer] Zwncpcieikvrt7317 [facility] [id number] 17 [place] Pregnenolone, 14 ng/dL (Abnormal) Comments: Reference Range:Adults: 53 - 357 Serum, MS hCG,Beta Negative m[iU]/mL Comments: PATIENT NOT FASTINGPERFORMED BY: [employer] [facility] Progsd2201 [place] [facility] [place] [id number] BY: ES [employer] Knslzobltkcpx6741 [facility] [id number] 2:03 Subunit,Qual,Serum (Normal) Prolactin 10.9 ng/mL (Normal) Comments: PATIENT NOT FASTINGPERFORMED BY: [facility] Gqpmnn2587 [facility] [place] [id number] BY: NERISSA DumontJennifer Ville 8656101 [facility] [id number] 2:03 Range: 4.8-23.3 1-Ylo-366933:03 Prothrombin Time (PT) Comments: PATIENT NOT FASTINGPERFORMED BY: [place] 7127470 [facility] [id number] BY: NERISSA Dumont[address] [id number] 11Clinical Information: [id number], 115828 Prothrombin Time 10.5 {sec} (Normal) Range: 9.1-12.0 INR 1.0 (Normal) Range: 0.8-1.2 Comments: Reference interval is for non-anticoagulated patients. . Suggested INR therapeutic range for Vitamin K anta gonist therapy: Standard Dose (moderate intensity therapeutic range): 2.0 - 3.0 Higher intensity therapeutic range 2.5 - 3.5 9-Wqv-704395:03 PTT, Activated Comments: PATIENT NOT FASTINGPERFORMED BY: [place] 7127470 [facility] [id number] BY: Nerissa[address] [id number] aPTT 27 {sec} (Normal) Range: 24-33 Comments: This test has not been validated for monitoring unfractionated heparintherapy. aPTT-based therapeutic ranges for unfractionated heparintherapy have not been established. For general guidelines onHeparin monitoring, refer to the [facility] Directory of Services. 8-Ttc-429354:03 Thyroxine (T4) Free, Comments: PATIENT NOT FASTINGPERFORMED BY: [place] 7127470 [facility] [id number] BY: Tim[address] [id number] Direct, S T4,Free(Direct) 0.87 ng/dL (Normal) Range: 0.82-1.77 3-Efr-343077:0 TSH 0.723 {uIU/mL} Comments: PATIENT NOT FASTINGPERFORMED BY: [address] [id number] BY: NERISSA Bautista [address] [place] [address] [id number] 3 (Normal) Range: 0.450-4.500 0-Prr-897840:01 CBC W/Diff, Automated Comments: Test performed at:[facility] [address]ab[address] [place] [address] Absolute Lymph 1.51 {X10_3/ul} (Normal) [...] 4.2-5.4 WBC 5.7 K/mm3 (Normal) Range: 4.4-11.0 3-Gkn-539896:01 Comprehensive Metabolic Profil Comments: Test performed at:[facility] [address]vzch[address] [place] [address] GAP 7 (Normal) Range: 5-15 [...] 7-18 GLU 94 mg/dL (Normal) Range: 70-110 59-Vud-278424:09 Urine Test, Office (32256) Urine Test, Office Negative (Normal) 24-Efe-829521:09 Urinalysis, Office (79117) UA - LEUKOCYTE ESTERASE Negative (Normal) UA - NITRITE Negative (Normal) URINE UROBILINGN SRAVANI TIMED Normal mg/dL (Normal) UA - PROTEIN Negative mg/dL (Normal) UA - PH 6 (Abnormal) UA - BLOOD Negative (Normal) UA - SPECIFIC GRAVITY 1.025 (Normal) UA - KETONES Negative mg/dL (Normal) UA - BILIRUBIN Negative (Normal) UA - GLUCOSE Negative (Normal) 9-Huo-537157:14 CBC W/Diff, Automated Comments: Test performed at:[facility] [address] [place] [address] Absolute Lymph 2.05 {X10_3/ul} (Normal) Range: 0.83-4.51 [...] 4.2-5.4 WBC 8.6 K/mm3 (Normal) Range: 4.4-11.0 3-Hyv-538711:14 Comprehensive Metabolic Profil Comments: Test performed at:[facility] [address]oehxkho[address] [place], [place] [address] GAP 2 (Abnormal) Range: 5-15 CO2 32.0 [...] 7-18 GLU 102 mg/dL (Normal) Range: 70-110 07-Owp-466954:18 CBCD ALC 1.55 {X10_3/ul} (Normal) Range: 0.83-4.51 [...] 4.2-5.4 WBC 5.8 K/mm3 (Normal) Range: 4.4-11.0 1-Afa-536827:31 CMP GAP 5 (Normal) Range: 5-15 CO2 [...] Range: 70-110 :50 Blood Glucose , Office (37024) Blood Glucose , Office 143 (Normal) Comments: non-fasting :50 HgA1C , Office (74441) HgA1C , Office 5.8 % (Normal) Range: 4.6 - 7.1 56-Iid-680103:36 ISIAH Negative (Normal) Comments: Performed at: - Lab[address] [id number] Director: Ricardo Pace MD, Phone: [phone] 12-Xxx-677353:36 CCP < 1 {units} (Normal) Range: 0-19 Comments: Negative <20Weak positive 20 - 39Moderate positive 40 - 59Strong positive >59Performed at: - LabCo[address] [id number] Director: Stepan Hernandez MD, Phone: [phone] 74-Kyn-348012:36 CRP 3.36 mg/L (Abnormal) Range: 0.0-3.0 Comments: [...] (Normal) Range: 0.358-3.74 :46 HgA1C , Office (92644) HgA1C , Office 5.7 % (Normal) Range: 4.6 - 7.1 :46 Blood Glucose , Office (70475) Blood Glucose , Office 106 (Normal) :51 HgA1C , Office (76587) HgA1C , Office 5.8 % (Normal) Range: 4.6 - 7.1 :51 Blood Glucose , Office (45715) Blood Glucose , Office 122 (Normal) Comments: non-fasting :05 HgA1C , Office (65386) HgA1C , Office 5.8 % (Normal) Range: 4.6 - 7.1 :04 Blood Glucose , Office (28922) Blood Glucose , Office 137 (Normal) :25 HgA1C , Office (30762) HgA1C , Office 5.7 % (Normal) Range: 4.6 - 7.1 :25 Blood Glucose , Office (03085) Blood Glucose , Office 96 (Normal) :33 HEPATIC FUNCTION PANEL Comments: PATIENT NOT FASTINGPERFORMED BY: [facility]CoChristian [facility] CenterMtxuge2185 [facility] [id number] (48709) Alkaline Phosphatase, S 46 [iU]/L (Normal) Range: [...] Total, Serum 6.7 g/dL (Normal) Range: 6.0-8.5 62-Gcp-298054:33 Renal function Panel Comments: PATIENT NOT FASTINGPERFORMED BY: [facility] Rzffkl1991 [facility] [id number] Information: [id number] DRAW FEE [id number] (74763) Albumin, Serum 4.3 g/dL (Normal) Range: 3.5-5.5 [...] Glucose, Serum 105 mg/dL (Abnormal) Range: 65-99 72-Bnf-086646:04 Urinalysis, Office (86099) UA - BILIRUBIN Negative (Normal) UA - BLOOD Negative (Normal) UA - GLUCOSE Negative (Normal) UA - KETONES Negative mg/dL (Normal) UA - LEUKOCYTE ESTERASE Negative (Normal) UA - NITRITE Negative (Normal) UA - PH 6.0 (Normal) UA - PROTEIN Negative mg/dL (Normal) UA - SPECIFIC GRAVITY 1.025 (Normal) URINE UROBILINGN SRAVANI TIMED Normal mg/dL (Normal) 61-Tbb-904366:41 HgA1C , Office (74136) HgA1C , Office 5.9 % (Normal) Range: 4.6 - 7.1 :42 LQDPAP [id number] PAPSMR Comment (Normal) Comments: The Pap smear [...] no HPV testing was performed. .Performed at: [address] [id number] Director: John Echeverria MD, Phone: [phone] COMM . (Normal) DIAGN Comment (Normal) Comments: NEGATIVE FOR INTRAEPITHELIAL LESION AND MALIGNANCY.Satisfactory for evaluation. Endocervical and/or squamous metaplasticcells (endocervical component) are present.Holly Reed, Pilot Fuel Engineer (ASCP)T his liquid based ThinPrep(R) pap test was screened withthe use of an image guided system. 68-Cej-646790:20 TSH (70194) Comments: PATIENT WAS FASTINGPERFORMED BY: OvalisChristian [facility] Care CenterTygghi4223 [facility] [id number] TSH 2.160 {uIU/mL} (Normal) Range: 0.450-4.500 28-Lqg-723718:20 MICROALBUMIN: CREATININE RATIO Comments: PATIENT WAS FASTINGPERFORMED BY: Pharmaron HoldingChristian Health Care CenterZnizai6289 [facility] [id number] (44449) AND (39130) Microalb/Creat Ratio 2.3 {mg/g_creat} (Normal) Range: 0.0-30.0 Microalbumin, Urine 1.6 ug/mL (Normal) Range: 0.0-17.0 Creatinine, Urine 70.5 mg/dL (Normal) Range: 15.0-278.0 01-Tbq-071106:20 METABOLIC PANEL, COMPREHENSIVE Comments: PATIENT WAS FASTINGPERFORMED BY: [facility]CoChristian [facility] CenterRibess3496 [facility] [id number] (07643) ALT (SGPT) 19 [iU]/L (Normal) Range: 0-40 [...] Glucose, Serum 109 mg/dL (Abnormal) Range: 65-99 32-Lje-156619:20 LIPID PANEL (99355) Comments: PATIENT WAS FASTINGPERFORMED BY: NILE [facility] Ghwtec6396 [facility] [id number] LDL/HDL Ratio 1.4 {ratio_units} (Normal) Range: 0.0-3.2 LDL Cholesterol Calc 108 mg/dL (Abnormal) Range: 0-99 VLDL Cholesterol Zaria 16 mg/dL (Normal) Range: 5-40 HDL Cholesterol 78 mg/dL (Normal) Comments: According to ATP-III Guidelines, HDL-C >59 mg/dL is considered anegative risk factor for CHD. Cholesterol, Total 202 mg/dL (Abnormal) Range: 100-199 Triglycerides 82 mg/dL (Normal) Range: 0-149 17-Rsm-654645:20 CBC WITH MANUAL DIFF Comments: PATIENT WAS FASTINGPERFORMED BY: [facility]CoChristian [facility] Care CenterVbvdvq3765 [facility] [id number] Information: ADD [id number] AND DRAW FEE [id number] (53302) Immature Grans (Abs) 0.0 {x10E3/uL} (Normal) Range: [...] 3.80-5.10 WBC 5.2 {x10E3/uL} (Normal) Range: 4.0-10.5 33-Nro-430761:05 URINE ALISSON CULTURE-SRAVANI COL Comments: PATIENT NOT FASTINGPERFORMED BY: [facility]CoChristian [facility] CenterRajmdi9903 [facility] [id number] Information: SRC:UR [id number] COUNT (96275) Antimicrobial MIHEAD (Normal) Comments: S = Susceptible; [...] mL (Normal) Urine Final report (Normal) Culture,Comprehensive 43-Ppo-85057:51 Urinalysis, Office (82668) UA - BILIRUBIN Negative (Normal) UA - BLOOD Hemolyzed Trace (Normal) UA - GLUCOSE Negative (Normal) UA - KETONES Negative mg/dL (Normal) UA - LEUKOCYTE ESTERASE Large (Normal) UA - NITRITE Negative (Normal) UA - PH 6.5 (Normal) UA - PROTEIN Negative mg/dL (Normal) UA - SPECIFIC GRAVITY 1.015 (Normal) URINE UROBILINGN SRAVANI TIMED Normal mg/dL (Normal) 62-Nti-580019:53 CBC (Auto) (88433) Comments: PATIENT NOT FASTINGPERFORMED BY: [facility]CoChristian [facility] Care CenterLvedza1216 [facility] [id number] Information: [id number] Platelets 271 {x10E3/uL} (Normal) Range: 140-415 RDW 13.4 % (Normal) Range: 11.7-15.0 MCHC 34.0 g/dL (Normal) Range: 32.0-36.0 MCH 31.0 pg (Normal) Range: 27.0-34.0 Hematocrit 37.9 % (Normal) Range: 34.0-44.0 MCV 91 fL (Normal) Range: 80-98 Hemoglobin 12.9 g/dL (Normal) Range: 11.5-15.0 RBC 4.16 {x10E6/uL} (Normal) Range: 3.80-5.10 WBC 4.7 {x10E3/uL} (Normal) Range: 4.0-10.5 08-Uqm-614632:53 Potassium Serum (41962) Comments: PATIENT NOT FASTINGPERFORMED BY: LabCoChristian [facility] Care CenterDekbvy0843 [facility] [id number] Potassium, Serum 4.9 mmol/L (Normal) Range: 3.5-5.2 28-Mlh-86351:17 GALLBLADDER Radiology Report See Note (Normal) Comments: [...] 42 U/L (Normal) Comments: RESULTS FAXED 05/24/10 8509 NANCY. BETH 13:17 Range: 25-115 69-Ycz-448291:17 CBCD,SMEAR DIFF RED CELL MORPH SeeNote {NORMAL} [...] 4.2-5.4 WBC 3.0 K/mm3 (Abnormal) Range: 4.4-11.0 26-Obe-271270:17 COMP METABOLIC Comments: RESULTS FAXED 05/24/10 1522 [...] 0.6-1.0 GLU 82 mg/dL (Normal) Range: 70-110 09-Hlx-268163:17 LIPASE 124 U/L (Normal) Comments: RESULTS FAXED 05/24/10 1522 CARLOS CAMPOS. Range: 70-290 Comments: Please note:LIPASE revised reference range effective 09. 9-Drg-833829:38 CBCD,SMEAR DIFF RED CELL MORPH SeeNote {NORMAL} [...] 0.6-1.0 GLU 86 mg/dL (Normal) Range: 70-110 4-Sel-617002:38 LIPID LDL 98 mg/dL (Normal) Range: 0-130 [...] Very High > or = 500 mg/dL 8-Zpf-710996:38 MICROALB:CRE UR MALB:CREAT 13.5 {mg/g_CRE} (Normal) MICROALBUMIN,UR 5.2 mg/L (Normal) UR CREAT 38.5 mg/dL (Normal) :38 TSH 0.50 {uIU/mL} (Normal) Range: 0.358-3.74 :03 Urinalysis, Office (11628) UA - BILIRUBIN Negative (Normal) UA - BLOOD Hemolyzed Trace (Normal) UA - GLUCOSE Negative (Normal) UA - KETONES Negative mg/dL (Normal) UA - LEUKOCYTE ESTERASE Negative (Normal) UA - NITRITE Negative (Normal) UA - PH 6.5 (Normal) UA - PROTEIN Negative mg/dL (Normal) UA - SPECIFIC GRAVITY 1.020 (Normal) URINE UROBILINGN SRAVANI TIMED Normal mg/dL (Normal) 20-Nju-360461:01 Urinalysis, Office (70875) UA - BILIRUBIN Moderate (Normal) UA - BLOOD Hemolyzed Large (Normal) UA - GLUCOSE Negative (Normal) UA - KETONES Negative mg/dL (Normal) UA - LEUKOCYTE ESTERASE Negative (Normal) UA - NITRITE Negative (Normal) UA - PH 6.0 (Normal) UA - PROTEIN Negative mg/dL (Normal) UA - SPECIFIC GRAVITY 1.010 (Normal) URINE UROBILINGN SRAVANI TIMED Normal mg/dL (Normal) 01-Cui-477178:46 URINE ALISSON CULTURE-IDENTIFICATN Comments: PATIENT NOT FASTINGPERFORMED BY: [employer] [facility] [id number] Information: [id number] (76971) Result 1 NG36 (Normal) Comments: No growth in 36 - 48 hours. Urine Culture,Comprehensive Final report (Normal) 01-Anj-924722:00 TSH (85514) Comments: PATIENT WAS FASTINGPERFORMED BY: FaceAlerta70 [facility] [id number] TSH 1.190 {uIU/mL} (Normal) Range: 0.450-4.500 78-Yby-257504:00 METABOLIC PANEL, COMPREHENSIVE Comments: PATIENT WAS FASTINGPERFORMED BY: Ovalis Khispc3123 [facility] [id number] (31751) A/G Ratio 1.7 (Normal) Range: 1.1-2.5 Albumin, [...] mmol/L (Normal) Range: 135-145 :00 LIPID PANEL (56351) Comments: PATIENT WAS FASTINGPERFORMED BY: [facility]CoChristian [facility] Care CenterCtwroe3436 [facility] [id number] Cholesterol, Total 231 mg/dL (Abnormal) Range: 100-199 HDL Cholesterol 79 mg/dL (Normal) Comments: According to ATP-III Guidelines, HDL-C >59 mg/dL is considered anegative risk factor for CHD. LDL Cholesterol Calc 127 mg/dL (Abnormal) Range: 0-99 LDL/HDL Ratio 1.6 {ratio_units} (Normal) Range: 0.0-3.2 Triglycerides 123 mg/dL (Normal) Range: 0-149 VLDL Cholesterol Zaria 25 mg/dL (Normal) Range: 5-40 30-Dds-280770:00 CBC WITH MANUAL DIFF (68044) Comments: PATIENT WAS FASTINGClinical Information: [id number] PERFORMED BY: Pharmaron HoldingChristian Health Care CenterMyubpa4896 [facility] [id number] Baso (Absolute) 0.0 {x10E3/uL} (Normal) Range: 0.0-0.2 [...] Culture,Comprehensive Comments: Clinical Information: SRC:UR PERFORMED BY: [facility]rapeuticsM[facility]6370 [facility] [id number] Result 1 ECV (Normal) Comments: Escherichia coli, [...] S Urine Final report (Normal) Culture,Comprehensiv e 45-Uxy-012083:59 Urinalysis, Office (93810) UA - BILIRUBIN Negative (Normal) UA - BLOOD Hemolyzed Moderate (Normal) UA - GLUCOSE Negative (Normal) UA - KETONES Negative mg/dL (Normal) UA - LEUKOCYTE ESTERASE Moderate (Normal) UA - NITRITE Negative (Normal) UA - PH 6.0 (Normal) UA - PROTEIN Negative mg/dL (Normal) UA - SPECIFIC GRAVITY 1.015 (Normal) URINE UROBILINGN SRAVANI TIMED 2 mg/dL (Normal) 31-Zdk-428615:54 URINALYSIS W/O MICRO (28390) Comments: PATIENT WAS FASTINGPERFORMED BY: [facility] [id number] Appearance Clear (Normal) Bilirubin Negative (Normal) Glucose Negative (Normal) Ketones Negative (Normal) Microscopic Examination MICRON (Normal) Comments: Microscopic follows if indicated. Nitrite, Urine Negative (Normal) Occult Blood Negative (Normal) pH 6.5 (Normal) Range: 5.0-7.5 Protein Negative (Normal) Specific [place] 1.012 (Normal) Range: 1.005-1.030 Urine-Color Yellow (Normal) Urobilinogen,Semi-Qn 0.2 mg/dL (Normal) Range: 0.0-1.9 WBC Esterase Negative (Normal) 93-Teb-501800:54 TSH (18712) Comments: PATIENT WAS FASTINGPERFORMED BY: [facility] SolarCritical access hospital [id number] TSH 1.015 {uIU/mL} (Normal) Range: 0.450-4.500 58-Aro-203054:54 METABOLIC PANEL, COMPREHENSIVE Comments: PATIENT WAS FASTINGPERFORMED BY: [facility] Solar[facility] hospital [id number] (41452) A/G Ratio 1.5 (Normal) Range: 1.1-2.5 Albumin, [...] Serum 113 mg/dL (Abnormal) Range: 65-99 If -Djiboutian >59 mL/min/1.73 Comments: Note: Persistent reduction for [...] Sodium, Serum 140 mmol/L (Normal) Range: 135-145 15-Ugb-101592:54 LIPID PANEL (72192) Comments: PATIENT WAS FASTINGPERFORMED BY: [facility] Knbecr4877 [facility] [id number] Cholesterol, Total 199 mg/dL (Normal) Range: 100-199 [...] Cholesterol Zaria 26 mg/dL (Normal) Range: 5-40 78-Hwp-535777:54 CBC WITH MANUAL DIFF (61181) Comments: PATIENT WAS FASTINGClinical Information: ADD DRAW FEE [id number] ADD J 32356 PERFORMED BY: LabM[facility]6370 [facility] [id number] Baso (Absolute) 0.0 {x10E3/uL} (Normal) Range: 0.0-0.2 [...] change for the pediatric CBC With Differential/Platelet 23-Gfo-679671:32 PELVIC (NON-PREG) (HP) Radiology Report See Note (Normal) Comments: Exam Number: [id number] PELVIC ULTRASOUND HISTORYOvarian cyst, left side. COMPARISON [...] 26, 2006. Reported By: MANSI SINGER M.D. 5-Dtm-869484:42 ISIAH-D [id number] ISIAH-DIRECT 32 U/mL (Normal) Range: 0-99 Comments: Negative <100 Equivocal 100 - 120 Positive >120 2-Ikx-426097:42 B12/FOLATES FOLATES,SERUM 10.60 ng/mL (Normal) VITAMIN B12 281 pg/mL (Normal) Range: 211-911 9-Vfp-053150:42 C-REACTIVE PROT 2.88 mg/L (Normal) Range: 0.0-6.0 Comments: Test performed using the Dimension C-Reactive ProteinExtended Range assay method. This assay meets the AHA/CDC 2003 recommendations fordetermining patients at high risk for cardiovasculardisease. Reference: High risk CRP >3.0 mg/L 6-Hqq-012772:42 CBCD,SMEAR DIFF BAND 5 % (Normal) Range: [...] Range: 0.2 - 1.0 :42 T3, FREE 07500 2.8 pg/mL (Normal) Range: 2.3-4.2 Comments: Performed At: [address] [id number] :42 T4 FREE,DIRECT 1.0 ng/dL (Normal) Range: 0.89-1.76 :42 TSH 0.54 {uIU/mL} (Normal) Range: 0.34-4.82 :56 MAMM, CRISTINAKIMBERLY GAVINO DIGITAL & CAD Radiology Report See Note (Normal) Comments: Exam Number: [id number] MAMMOGRAPHY, RIGHT UNILATERAL DIAGNOSTIC DIGITAL AND CAD [...] mammograms werealso examined with computer-aided detection software (ImageTracourcker, [employer], [employer].). Reported By: AARON DE ANDA M.D. 41-Ypz-032310:59 MAMMSARAH DIGITAL & CAD Radiology Report See Note (Normal) Comments: Exam Number: [id number] BILATERAL SCREENING DIGITAL MAMMOGRAM CLINICAL INFORMATIONScreening. TECHNIQUEBilateral [...] werealso examined with computer- aided detection software (ImageMinitrade, [employer].). Reported By: SUSI MACK M.D. 83-Xhe-192414:59 PELVIC (NON-PREG) (HP) Radiology Report See Note (Normal) Comments: Exam Number: [id number] TRANSABDOMINAL PELVIC ULTRASOUND CLINICAL STATEMENTLower abdominal pain. [...] Indication: Impaired fasting glucose WWV (Renamed from [employer]) : *Well Female Maintenance (KF) Indication: WWV (Renamed from [employer]) WW V73. (Renamed from [facility]) : Pap/Pelvic/Bimanual/Rectal/Breast Exam was done. Indication: WWV V73. (Renamed from [facility]) Dysuria : Water in diet, brief version Indication: Dysuria Dysuria : *UTI treatment Indication: Dysuria Dysuria : *UTI treatment Indication: Dysuria Dysuria : UTI treatment Indication: Dysuria Fatigue : FOLLOW UP IN 2 WEEKS Indication: Fatigue Fatigue : *fatigue education Indication: Fatigue Planned Observations MICROALBUMIN: CREATININE RATIO (35382) AND (59459)Indication: Hypertension On: :52 Request URINALYSIS (98545)Indication: Hypertension On: :52 Request CBC WITH MANUAL DIFF (74531)Indication: Hypertension On: :52 Request Metabolic Panel, Comprehensive (14495)Indication: Hypertension On: :52 Request Anti-TPO Antibody (91986)Indication: Subclinical hyperthyroidism On: 76-Jti-098698:40 Request Comments: check in February T4, FREE (THYROXINE) (57561)Indication: Subclinical hyperthyroidism On: 35-Edv-284954:40 Request Comments: check in February T-3 UPTAKE (32508)Indication: Subclinical hyperthyroidism On: :40 Request Comments: recheck February TSH (58057)Indication: Subclinical hyperthyroidism On: 64-Rou-827749:40 Request Comments: recheck February CULTURE, SPUTUM ([id number])Indication: COPD with acute exacerbation (Renamed from Acute exacerbation of chronic obstructive airways disease) On: 8-Lwb-[id number]:45 Request Anti-TPO Antibody ([id number])Indication: Abnormal blood chemistry On: :18 Request T3, FREE (TRIDOTHYRONINE) ([id number])Indication: Abnormal blood chemistry On: :18 Request T4, FREE (THYROXINE) ([id number])Indication: Abnormal blood chemistry On: :18 Request TSH ([id number])Indication: Abnormal blood chemistry On: :18 Request D-Dimer ([id number])Indication: Chest pain On: 4-Ttb-[id number]:49 Request Comments: do all labs stat...zaria to on zaria if abnormal CPK MB FRACTION ([id number])Indication: Chest pain On: 5-Mbx-536976:22 Request CREATINE KINASE TOTAL ([id number])Indication: Chest pain On: 0-Fch-621918:22 Request Metabolic Panel, Comprehensive ([id number])Indication: Fatigue On: 7-Nbj-094404:06 Request CBC, Platelets & Auto Diff ([id number])Indication: Immunocompromised On: 6-Tan-356470:03 Request CULTURE, SPUTUM ([id number])Indication: Bronchitis, acute On: 1-Mzc-108425:58 Request METABOLIC PANEL, COMPREHENSIVE ([id number])Indication: Benign essential hypertension On: 38-Sto-281638:57 Request LIPID PANEL ([id number])Indication: Benign essential hypertension On: 52-Elw-835276:57 Request T4, FREE (THYROXINE) ([id number])Indication: Perimenopausal menorrhagia On: 9-Fru-907562:00 Request TSH (THYROID STIMULATING HORMONE) ([id number])Indication: Perimenopausal menorrhagia On: 7-Jmw-607052:59 Request Comments: fax copy all labs to Dr. bales HCG (HUMAN CHORIONIC GONADOTROPIN) ([id number])Indication: Perimenopausal menorrhagia On: 1-Kic-123678:57 Request PTT (ACTIVATED PARTIAL THROMBOPLASTIN TIME) ([id number])Indication: Perimenopausal menorrhagia On: 3-Mry-709777:57 Request PT/INR, Office ([id number])Indication: Perimenopausal menorrhagia On: 9-Wye-888951:57 Request 17-HYDROXYPREGNENOLONE ([id number])Indication: Perimenopausal menorrhagia On: 8-Ntc-385659:57 Request PROLACTIN ([id number])Indication: Perimenopausal menorrhagia On: 8-Rll-432473:57 Request LIPID PANEL ([id number])Indication: Benign essential hypertension On: 11-Jqq-757722:28 Request CCP ANTIBODY ([id number])Indication: Acute rheumatoid arthritis On: 82-Nht-350469:17 Request SED RATE ERYTHROCYTE ([id number])Indication: Acute rheumatoid arthritis On: 52-Qyv-615353:17 Request C-REACTIVE PROTEIN ([id number])Indication: Acute rheumatoid arthritis On: 90-Ijm-003518:17 Request TSH ([id number])Indication: Acute rheumatoid arthritis On: Request RHEUMATOID FACTOR-QUANT ([id number])Indication: Acute rheumatoid arthritis On: : Request ISIAH (ANTINUCLEAR ANTIBODY) ([id number])Indication: Acute rheumatoid arthritis On: : Request URINALYSIS, W/ MICRO ([id number])Indication: Benign essential hypertension On: : Request METABOLIC PANEL, COMPREHENSIVE ([id number])Indication: Benign essential hypertension On: : Request LIPID PANEL ([id number])Indication: Benign essential hypertension On: : Request CBC WITH MANUAL DIFF ([id number])Indication: Benign essential hypertension On: : Request URINE ALISSON CULTURE (SRAVANI COL COUNT) ([id number])Indication: Hematuria On: 86-Lap-995668:04 Request METABOLIC PANEL, COMPREHENSIVE ([id number])Indication: Nausea and vomiting On: : Request CBC WITH MANUAL DIFF ([id number])Indication: Nausea and vomiting On: :02 Request Lipase ([id number])Indication: Nausea and vomiting On: : Request Amylase ([id number])Indication: Nausea and vomiting On: : Request OVA & PARASITE DIR SMEAR ([id number])Indication: Diarrhea On: : Request C.Difficile, Stool (76703)Indication: Diarrhea On: : Request LEUKOCYTE COUNT, FECAL ([id number])Indication: Diarrhea On: : Request ALISSON CULTURE-STOOL ([id number])Indication: Diarrhea On: : Request TSH ([id number])Indication: Depression On: :10 Request MICROALBUMIN: CREATININE RATIO ([id number]) AND ([id number])Indication: Benign essential hypertension On: : Request METABOLIC PANEL, COMPREHENSIVE ([id number])Indication: Benign essential hypertension On: : Request LIPID PANEL ([id number])Indication: Benign essential hypertension On: :09 Request CBC WITH MANUAL DIFF ([id number])Indication: Benign essential hypertension On: : Request URINALYSIS W/O MICRO ([id number])Indication: Benign essential hypertension On: :39 Request MICROALBUMIN URINE QUANT ([id number])Indication: Benign essential hypertension On: :39 Request METABOLIC PANEL, COMPREHENSIVE ([id number])Indication: Benign essential hypertension On: :39 Request LIPID PANEL ([id number])Indication: Benign essential hypertension On: :39 Request ISIAH (ANTINUCLEAR ANTIBODY) ([id number])Indication: Fatigue On: :39 Request C-REACTIVE PROTEIN ([id number])Indication: Fatigue On: :39 Request CBC (AUTO) ([id number])Indication: Fatigue On: :39 Request Folate ([id number])Indication: Fatigue On: :39 Request METABOLIC PANEL, COMPREHENSIVE ([id number])Indication: Fatigue On: :39 Request RHEUMATOID FACTOR-QUANT ([id number])Indication: Fatigue On: :39 Request SED RATE ERYTHROCYTE ([id number])Indication: Fatigue On: :39 Request TSH ([id number])Indication: Fatigue On: :39 Request VITAMIN B-12 (CYANOCOBALAMIN) ([id number])Indication: Fatigue On: :39 Request Planned Encounters Medical; TIMOTHY 2 Month FU - On: 31-May-2018 13:00 [facility] [place]j [place], Shasha Ba MD Planned Procedures Flu Vaccine (Quadrivalent) 02943Sw: On: 30-Mar-2018 Intent Mj [place], Shasha Ba MD MRI OF LUMBAR SPINE WITH AND WITHOUT On: 18-Jan-2018 Intent CONTRAST ([id number])By: Shasha Barker MD Comments: rule out cauda equina syndrome[facility] THYROID SCAN UPTAKE ([id number])By: On: 16-Nov-2017 Intent Shasha Barker MD, MD, [...] ([id number])By: Shasha Barker MD Comments: Lot # [id number] mg solu medrol given right deltoid by Shasha Suggs lpn, MD Radiology - ChestBy: Mj AL, On: 15-May-2017 Intent Shasha Ba MD Solu- Medrol Injection, 125mg On: 12-May-2017 Intent ([id number])By: Shasha Barker MD, MD, Dana M Aerosol Treatment ([id number])By: Mj On: 12-May-2017 Intent Shasha AL MD, Dana M EKG ([id number])By: Shasha Barker MD On: 12-Mar-2017 Intent Shasha [...] MD, Dana M XRAY LEFT SMALL TOE ([id number])By: On: 20-May-2016 Intent Shasha Barker MD, MD, Dana Comments: 5th digit focus on area of pain and get distal metatarsal bone M MAMMOGRAM BREAST BILATERAL SCREENING On: 06-May-2016 Intent DIGITAL ([id number])By: Shasha Barker MD, MD, Dana M DEXA SCAN AXIAL SKELETON ([id number])By: On: 06-May-2016 Intent Shasha Barker MD, MD, Dana M Ultrasound - RenalBy: Mj AL, On: 07-Aug-2015 Intent Shasha Ba MD Nuclear Stress Test/Stress On: 08-Jun-2015 Intent SPECT/AdenosineBy: Shasha Barker MD, MD, Dana M Radiology - ChestBy: Ophelia Boogie CNP On: 27-Feb-2015 Intent E Radiology - ChestBy: Ophelia Boogie CNP On: 05-Feb-2015 Intent E Ultrasound - PelvisBy: Chuyita ROSS, On: 19-Jul-2014 Intent Vero EKG ([id number])By: Shasha Barker MD On: 23-Jun-2013 Intent Shasha Barker MD Comments: see scanned document of test done to see results reviewed today with patient MAMMOGRAM, SCREENING, BOTH BREASTS On: 23-Jun-2013 Intent ([id number])By: Shasha Barker MD, MD, Dana M Eprescribed prescriptions ([id number])By: On: 23-Jun-2013 Intent Shasha Barker MD, MD, Dana M Radiology - Hand - BilateralBy: On: 10-Feb-2013 Intent Shasha Barker MD, MD, Dana Comments: copy to Dr. kiana Whitten Eprescribed prescriptions ([id number])By: On: 10-Feb-2013 Intent Long BEVERAGE SERVER, Riana L Eprescribed prescriptions ([id number])By: On: 11-Oct-2012 Intent Shasha Barker MD, MD, Dana M EKG ([id number])By: Shasha Barker MD On: 11-Jun-2012 Intent Shasha Barker MD Eprescribed prescriptions ([id number])By: On: 11-Jun-2012 Intent Long BEVERAGE SERVER, Riana L CT - Abdomen & Pelvis (IV Contrast On: 12-Mar-2012 Intent Needed)By: Shasha Barker MD, MD, Dana M MAMMOGRAM, SCREENING, BOTH BREASTS On: 29-Apr-2011 Intent ([id number])By: Shasha Barker MD, MD, Dana M MAMMOGRAM, SCREENING, BOTH BREASTS On: 25-Apr-2011 Intent ([id number])By: Shasha Barker MD, MD, Dana M EKG ([id number])By: JACKIE Bruno On: 26-Aug-2010 Intent Ultrasound - GallbladderBy: Fast DO, On: 27-May-2010 Intent Philomena A Ultrasound - GallbladderBy: Fast DO, On: 24-May-2010 Intent Philomena A Doppler Ultrasound OtherBy: Augustine On: 25-Apr-2010 Intent Jeannette FARAH Comments: L lower extrrem- eval for clot and eval bakers cyst? size ? leaking ? Radiology - ChestBy: Mj AL, On: 23-May-2009 Intent Shasha Ba MD EKG (58792)By: Shasha Barker MD On: 24-Apr-[address] - Brain/HeadBy: Shasha Barker MD On: 24-Apr-2009 Intent Shasha Gillesipe MD EKG (08811)By: Shasha Barker MD On: 14-Apr-2008 Intent Shasha Barker MD MAMMOGRAM, SCREENING, BOTH BREASTS On: 14-Apr-2008 Intent ([id number])By: Shasha Barker MD, MD, Dana M Ultrasound - PelvisBy: Mj AL, On: 23-Nov-2006 Intent Shasha Ba MD EKG (18665)By: PEGGY ROSE CNP On: 10-Aug-2006 Intent Comments: [...] (716.90), Fatigue (780.79), WWV V73.21 (Renamed from [facility]) [facility] Office Visit On: 12-Mar-2012 [...] date: (04-07-11).Encounter Diagnosis: WWV V73.21 (Renamed from [facility]) [facility] Office Visit [...] (311.), Fatigue (780.79), WWV V73.21 (Renamed from [facility]) [facility] Annotation/Addendum On: [...] disturbance (368.9), Headache (784.0), Backache, unspecified (724.5), [facility] Office Visit [...] left, use cockup splint, see pelligrtawanda in [place]--did ncs 1year ago--show CTS, xray of hand [...]
--- OUTSIDE RECORDS SUMMARY | 2018-07-27 22:53 | XMS RPT_ITS ---
:1960 Author Organization [place] Support Name Relationship Address Phone AMERICA LERMA Unavailable [address] + [place] [address] SAGRARIO BLACKWOOD Unavailable [address] + [place] [address] UE Unavailable Unavailable Unavailable AMERICA LERMA Unavailable [address] + [place] [address] SAGRARIO BLACKWOOD Unavailable [address] + [place] [address] UE Unavailable Unavailable Unavailable AMERICA LERMA Unavailable [address] + [place] [address] SAGRARIO BLACKWOOD Unavailable [address] + [place] [address] UE Unavailable Unavailable Unavailable AMERICA LERMA Unavailable [address] + [place] [address] SAGRARIO BLACKWOOD Unavailable [address] + [place] [address] UE Unavailable Unavailable Unavailable AMERICA LERMA Unavailable [address] + [place] [address] SAGRARIO BLACKWOOD Unavailable [address] + [place] [address] UE Unavailable Unavailable Unavailable AMERICA LERMA Unavailable [address] + [place] [address] SAGRARIO BLACKWOOD Unavailable [address] + [place] [address] UE Unavailable Unavailable Unavailable AMERICA LERMA Unavailable [address] + [place] [address] S Unavailable Unavailable Unavailable SAGRARIO BLACKWOOD Unavailable [address] + [place] [address] PAMER, AMERICA Unavailable [address] + [place] [address] S Unavailable Unavailable Unavailable SAGRARIO BLACKWOOD Unavailable [address] + [place] [address] PAMER, AMERICA Unavailable [address] + [place] [address] S Unavailable Unavailable Unavailable SAGRARIO BLACKWOOD Unavailable [address] + [place] [address] PAMER, AMERICA Unavailable [address] + [place] [address] S Unavailable Unavailable Unavailable SAGRARIO BLACKWOOD Unavailable [address] + [place] [address] PAMER, AMERICA Unavailable [address] + [place] [address] S Unavailable Unavailable Unavailable SAGRARIO BLACKWOOD Unavailable [address] + [place] [address] PAMER, AMERICA Unavailable [address] + [place] [address] S Unavailable Unavailable Unavailable SAGRARIO BLACKWOOD Unavailable [address] + [place] [address] PAMER, AMERICA Unavailable [address] + [place] [address] S Unavailable Unavailable Unavailable SAGRARIO BLACKWOOD Unavailable [address] + [place] [address] PAMER, AMERICA Unavailable [address] + [place] [address] S Unavailable Unavailable Unavailable SAGRARIO BLACKWOOD Unavailable [address] + [place] [address] PAMER, AMERICA Unavailable [address] + [place] [address] S Unavailable Unavailable Unavailable SAGRARIO BLACKWOOD Unavailable [address] + [place] [address] PAMER, AMERICA Unavailable [address] + [place] [address] S Unavailable Unavailable Unavailable CHASTITY, SAGRARIO Unavailable [address] + [place] [address] AMERICA LERMA Unavailable [address] + [place] [address] S Unavailable Unavailable Unavailable CHASTITY, SAGRARIO Unavailable [address] + [place] [address] AMERICA LERMA Unavailable [address] + [place] [address] S Unavailable Unavailable Unavailable CHASTITY, SAGRARIO Unavailable [address] + [place] [address] AMERICA LERMA Unavailable [address] + [place] [address] S Unavailable Unavailable Unavailable CHASTITY, SAGRARIO Unavailable [address] + [place] [address] Care Team Providers Name Role Phone Pelon Chatterjee Attending Unavailable Bonezzi, Valeriano Primary Care Unavailable Pelon Chatterjee Referring Unavailable Sibilia, Pelon Attending Unavailable Bonezzi, Valeriano Primary Care Unavailable Sibhanna, Pelon Attending Unavailable Bonezzi, Valeriano Primary Care Unavailable More Taylor Attending Unavailable ChrisiMore Referring Unavailable Bonezzi, Valeriano Primary Care Unavailable Sen, Pelon Attending Unavailable Sibhanna Pelon Referring Unavailable Bonezzi, Valeriano Primary Care Unavailable Dale Zuniga Attending Unavailable Dale Zuniga Referring Unavailable Bonezzi, Valeriano Primary Care Unavailable Allie Bales Attending Unavailable SibiliaPelon Attending Unavailable Bonezzi, Valeriano Primary Care Unavailable SibPelon ferreira Attending Unavailable Sibilia Pelon Referring Unavailable Bonezzi, Valeriano Primary Care Unavailable Bonezzi, Valeriano Attending Unavailable Bonezzi, Valeriano Referring Unavailable Bonezzi, Valeriano Primary Care Unavailable BasaliMore Attending Unavailable Basali, More Referring Unavailable Bonezzi, Valeriano Primary Care Unavailable Bonezzi, Valeriano Attending Unavailable Bonezzi, Valeriano Referring Unavailable Bonezzi, Valeriano Primary Care Unavailable Nabeel Danielle Attending Unavailable Nabeel Danielle Referring Unavailable Bonezzi, Valeriano Primary Care Unavailable SibiliaPelon Attending Unavailable Sibilia, Pelon Referring Unavailable Bonezzi, Valeriano Primary Care Unavailable Bonezzi, Valeriano Primary Care Unavailable Gunner Mc Attending Unavailable Sibilia, Pelon Attending Unavailable Sibilia, Pelon Referring Unavailable Bonezzi, Valeriano Primary Care Unavailable OLLIE STEVENS Attending Unavailable OLLIE STEVENS Referring Unavailable Bonezzi, Valeriano Primary Care Unavailable OLLIE STEVENS Consulting Unavailable FioriJose L hayes Attending Unavailable FioritaJose L Referring Unavailable Bonezzi, Valeriano Primary Care Unavailable Bonezzi, Valeriano Primary Care Unavailable Juanpablo Schradery Attending Unavailable KRISHNANEY, CARLOS A Attending Unavailable KRISHNANEY, CARLOS A Referring Unavailable MUSCHLER, LUI F Attending Unavailable KRISHNANEY, CARLOS A Referring Unavailable MUSCHLER, LUI F Referring Unavailable MUSCHLER, LUI F Referring Unavailable MUSCHLER, LUI F Referring Unavailable BARBASTEFANO, EDGAR Attending Unavailable MUSCHLER, LUI F Referring Unavailable MUSCHLER, LUI F Referring Unavailable MUSCHLER, LUI F Referring Unavailable BARBASTEFANO, EDGAR Referring Unavailable MUSCHLER, LUI F Admitting Unavailable MUSCHLER, LUI F Attending Unavailable MUSCHLER, LUI F Referring Unavailable MUSCHLER, LUI Panchal Attending Unavailable MUSCHLER, LUI F Referring Unavailable MUSCHLER, LUI Panchal Referring Unavailable MUSCHLER, LUI Panchal Referring Unavailable PAPSTEPAN CANO Attending Unavailable BONEZZIVALERIANO Referring Unavailable Bonezzi Valeriano AL Attending Unavailable Bonezzi Valeriano AL Referring Unavailable BoneValeriano irvin MD Consulting Unavailable David YING Attending Unavailable BONEZZI, VALERIANO Referring Unavailable BONEZZI, VALERIANO Primary Care Unavailable David YING Attending Unavailable BONEZZI, VALERIANO Referring Unavailable BONEZZI, VALERIANO Primary Care Unavailable PROBLEMS PROBLEMS DATE TYPE CONDITION / CODE ATTENDING STATUS SOURCE 05/25/2018 Unknown F11.20 - Opioid Basali, Ayman Active [place] dependence, Community uncomplicated / Hospital F11.20(ICD-10) Repository 05/21/2018 Unknown M25.552 - Pain in Le, Christian Active [place] left hip / Community M25.552(ICD-10) Hospital Repository 03/08/2018 Active Osteoarthritis of MUSCHLER, Active [facility] hip, unspecified / [facility] M16.9(ICD-10) [place] Repository 03/16/2018 Active Presence of left MUSCHLER, Active [facility] artificial hip [facility] joint / [place] Z96.642(ICD-10) Repository 03/12/2018 Active Interstitial NA Active [facility] pulmonary disease, Clinic Main unspecified / [place] J84.9(ICD-10) Repository 03/12/2018 Active Rheumatoid NA Active [facility] arthritis, Clinic Main unspecified / [place] M06.9(ICD-10) Repository 03/12/2018 Active Unknown / NA Active [facility] UNK(Unknown) Clinic Main [place] Repository 03/12/2018 Active Encounter for other BARBASTEFANO, Active [place] preprocedural EDGAR [facility] Main examination / [place] Z01.818(ICD-10) Repository 03/08/2018 Active Osteonecrosis, NA Active [facility] unspecified / Clinic Main M87.9(ICD-10) [place] Repository 03/08/2018 Active Other specified NA Active [facility] rheumatoid [facility] Main arthritis, multiple [place] sites / Repository M06.89(ICD-10) 03/08/2018 Active Fibromyalgia / NA Active [facility] M79.7(ICD-10) Clinic Main [place] Repository 03/08/2018 Active Obesity, NA Active [facility] unspecified / Clinic Main E66.9(ICD-10) [place] Repository 03/08/2018 Active jail (current) NA Active [facility] use of systemic Clinic Main steroids / [place] Z79.52(ICD-10) Repository 03/08/2018 Active Vitamin D NA Active [place] deficiency, Clinic Main unspecified / [place] E55.9(ICD-10) Repository 02/08/2018 Active Gastro-esophageal PAPOURAS, Active [facility] reflux disease [facility] Other without esophagitis [place] / K21.9(ICD-10) Repository 02/18/2016 Admitting Unknown / David YING Active [place] [facility] diagnosis UNK(Unknown) [facility] Repository 01/26/2018 Active 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 Clinic Main radiculopathy, [place] lumbar region / Repository M47.816(ICD-10) 08/27/2017 Unknown H91.92 - Wartmann, Active [place] Unspecified hearing [facility] Community loss, left ear / Hospital H91.92(ICD-10) Repository 08/26/2017 Unknown N95.1 - Menopausal Shriner, Allie Active [place] and [facility] climacteric [facility] Hospital / N95.1(ICD-10) Repository 08/26/2017 Unknown Z12.4 - Encounter Allie Bales Active [place] for screening for Community malignant neoplasm Hospital of cervix / Repository Z12.4(ICD-10) 08/26/2017 Unknown Z01.419 - Encounter Allie Bales Active [place] for gy[facility]ological [facility] examination [facility] (general) (routine) Repository without abnormal findings / Z01.419(ICD-10) 08/03/2017 Unknown J84.116 - Pelon Chatterjee Active [place] Cryptogenic [facility] pneumonia / Repository J84.116(ICD-10) PROCEDURES PROCEDURES No Procedure Records FoundRESULTS RESULTS URINE DRUG SCREEN Collected: 05/25/2018 Status: F Source: [place] (VISTA) 4:32 PM [facility] REPOSITORY Order Comment: Comments: [id number];URINE TOX;RUN LOWEST TEST List of Drugs Taken or Suspected? U TYPE CODE TESTS RESULT OUT OF RANGE REFERENCE UNITS LAB L505.0075 TO BE Normal CONFIRMED Result Comment: CONFIRMATORY TESTING FOR ALL POSITIVE URINE DRUG SCREEN RESULTS WILL ONLY BE SENT OUT UPON PHYSICIAN ORDER. VISTA Urine Drug Screen methods provide only preliminary analytical test results. A more specific alternate chemical method must be used in order to obtain a confirmed analytical result. Gas chromatography/mass spectrometery (GC/MS) is the preferred confirmatory method. Clinical consideration and professional judgement should be applied to any drug of abuse test result, particularly when preliminary positive results are used. URINE TCA TESTING MUST BE ORDERED SEPARATELY. USE TEST MNEMONIC: [facility] LAB L505.5005 VISTA UDS PH 7 Normal LAB L505.5015 <1000 ng/mL AMPHETAMINES Normal NEGATIVE LAB L505.5025 < 200 ng/mL BARBITIURATES Normal NEGATIVE LAB L505.5035 < 200 ng/mL BENZODIAZIPINE Normal NEGATIVE LAB L505.5045 < 300 ng/mL COCAINE Normal NEGATIVE LAB L505.5055 < 500 High ng/mL ECSTACY POSITIVE LAB L505.5065 < 300 ng/mL METHADONE Normal NEGATIVE LAB L505.5075 < 300 High ng/mL OPIATES POSITIVE LAB L505.5085 < 25 ng/mL PCP Normal NEGATIVE LAB L505.5095 < 50 ng/mL THC Normal NEGATIVE Performed By: #### L505.5000 #### [facility] [address] [place], [address] PROGRESS Observed: 05/10/2018 Status: COMPLETED Source: [place] 10:55 AM [facility] REPOSITORY HNO ID: [id number] Author: Shailesh Ariellaci Service: (none) Author Type: Physician Type: Progress Notes Filed: 05/10/2018 10:58 AM Note Text: Ortho Hip Follow Up Note Narrative Referring Provider: Lui Hsu MD [address] [facility] [address] PCP: Valeriano Munoz MD IMPRESSION/PLAN: Impressions indicate: 57 year old female s/p Left Total Hip Replacement completed on 03/16/[address] Hsu. Patient was having an uneventful rehabilitation, however she had a posterior dislocation on 04/15/2018 which was relocated without complications. We reviewed stable positions with her feet together knees apart and showed her that she could safely bend to 120? with respect to her left hip. ? She understands that she can cross her ankles safely in either direction. We discussed how to corn picker things on the floor. ? ? IMPRESSION: No complaints or limitations. and At normal post-operative stage of recovery. PLAN: Continue current conservative treatment. Patient Reassurance: Normal post-operative course discussed with patient. Progress appears to be with the normal speed of recovery. Patient reassured and supported. All questions answered. Follow up 1 year X-Rays Needed ACTIVE PROBLEM LIST Current Chronic Use of Systemic Steroids Rheumatoid Arthritis Involving Multiple Sites ([facility]) Obesity, Class I, Bmi 30-34.9 Fibromyalgia Vitamin D Deficiency Ild (Interstitial Lung Disease) ([facility]) Status Post Left Hip Replacement HPI: Rosa Blackwood presents today for an intermediate post-op visit. STATUS POST: Left Total Hip Replacement BMI: There is no height or weight on file to calculate BMI. Post operative recovery was complicated by dislocation. Patient rates his condition as improving. Does the patient still experience pain? . Location: Left hip: Groin. Frequency: occasionally. Pain scale: 3. Pain character: ache. Relieving factors: Rest. Post Op discharge patient location: in home. Functional Assessment is as follows: has already started outpatient PT as of this visit. Functional difficulties: None. Pain Medication: Non-narcotic EXAM: POST OP HIP LEFT POST-OPERATIVE HIP SKIN: Appropriate postop appearance, No evidence of erythema, warmth, discharge or drainage and No evidence of warmth or erythema. Range of Motion: Pain Free Neurovascular Status: Sensation Intact, Moves foot and ankle up AND down and 2+ dorsalis pedis IMAGING: X-ray Hips: Post op Implants are well fixed., There is no evidence of loosening., There is evidence of osteo-integration., There is no evidence of osteolysis. and There is no radiolucency appreciated. Provider: MD May Lunsford, MARY JAUREGUI Completed by: Shailesh Ferrer MD PROGRESS Observed: 05/10/2018 Status: COMPLETED Source: [place] 10:44 AM [facility] REPOSITORY HNO ID: [id number] Author: May Mcdonough RN (Rnfa) Service: (none) Author Type: Registered Nurse Automotive Mechanical Engineer Type: Progress Notes Filed: 05/10/2018 10:58 AM Note Text: This note was created using Plexisoftriter. Subjective Rosa Blackwood is a 57 year old female. Review of Systems Objective LMP 08/18/2006 Physical Exam Assessment and Plan PROGRESS Observed: 05/10/2018 Status: COMPLETED Source: [place] 10:12 AM [facility] REPOSITORY HNO ID: [id number] Author: Kyleigh Carmona Service: (none) Author Type: (none) Type: Progress Notes Filed: 05/10/2018 10:12 AM Note Text: Radiology Service Progress Note PATIENT NAME: Rosa Blackwood DATE OF SERVICE: May 10, 2018 TIME: 10:12 AM PATIENT IDENTITY VERIFICATION COMPLETED USING TWO (2) METHODS: Patient confirmed name verbally and Date of . PATIENT GENDER DATA: Female. status: : No status: NO. PATIENT RELEVANT IMPLANT DATA REVIEWED: Not Applicable RADIOLOGY DEPARTMENT: General X-ray: Exam(s) Completed: Pelvis X-Ray: Pelvis with Hip Left PERIPHERAL IV DATA: Not applicable SIGNED BY: Kyleigh Sandhu Rt May 10, 2018 10:12 AM XR HIP 3V PELV+ Observed: 05/10/2018 Status: F Source: [place] AP/LAT LT 10:04 AM [facility] REPOSITORY * * *Final Report* * * DATE OF EXAM: May 10 2018 10:04AM HONG 5351 - XR HIP 3V PELV+ AP/LAT LT / PROCEDURE REASON: multiple diagnoses * * * * Physician Interpretation * * * * HISTORY: 2 MONTHS POST OP. DISLOCATED ONCE. PT STATES FEELS LIKE THE REPLACEMENT MOVES.. Osteonecrosis of left hip (HCC) Other specified rheumatoid arthritis, multiple sites (HCC) Fibromyalgia Obesity, Class I, BMI 30-34.9. TECHNIQUE: XR HIP 3V PELV+ AP/LAT LT Laterality: LEFT Number of different views (projections): 3 COMPARISON: 03/2018 RESULT: Left total hip arthroplasty remains in good alignment. No progressive periprosthetic radiolucency. The right hip is maintained. IMPRESSION: Unremarkable left total hip arthroplasty. 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: SANJUANA Transcribe Date/Time: May 10 2018 10:22A Dictated by : REECE DOAN MD This examination was interpreted and the report reviewed and electronically signed by: REECE DOAN MD on May 10 2018 10:25AM EST [id number] CNOV Observed: 05/10/2018 Status: COMPLETED Source: [place] 10:00 AM [facility] REPOSITORY Office Visit (ORTHMN) ROSA BLACKWOOD ([id number]) 1960 F Date Time Provider Department 05/10/18 10:00 AM MAY MCDONOUGH (RNFA) During your visit today, we recorded the following information about you: JUVENTINO Nuno, RN 05/10/2018 10:45 AM Signed Patient her today as she has concerns that since her dislocation on 04.05.18, she has felt the hip joint slipping and that it feels on the cusp of dislocation and she feels discomfort. She saw her PT the other day and they were to d/c her from home pt and after seeing her, patient states the therapist has concerns of possible dislocation or partial dislocation and wanted her to get in and see the surgeon today to confirm joint is well placed JUVENTINO Nuno, RN 05/10/2018 10:58 AM Signed This note was created using Plexisoftriter. Subjective Rosa Blackwood is a 57 year old female. Review of Systems Objective LMP 08/18/2006 Physical Exam Assessment and Plan Shailesh Ferrer MD 05/10/2018 10:58 AM Signed Ortho Hip Follow Up Note Narrative Referring Provider: Lui Hsu MD [address] [facility] [address] PCP: Valeriano Munoz MD IMPRESSION/PLAN: Impressions indicate: 57 year old female s/p Left Total Hip Replacement completed on 03/16/[address] Hsu. Patient was having an uneventful rehabilitation, however she had a posterior dislocation on 04/15/2018 which was relocated without complications. We reviewed stable positions with her feet together knees apart and showed her that she could safely bend to 120? with respect to her left hip. ? She understands that she can cross her ankles safely in either direction. We discussed how to corn picker things on the floor. ? ? IMPRESSION: No complaints or limitations. and At normal post-operative stage of recovery. PLAN: Continue current conservative treatment. Patient Reassurance: Normal post-operative course discussed with patient. Progress appears to be with the normal speed of recovery. Patient reassured and supported. All questions answered. Follow up 1 year X-Rays Needed ACTIVE PROBLEM LIST Current Chronic Use of Systemic Steroids Rheumatoid Arthritis Involving Multiple Sites ([facility]) Obesity, Class I, Bmi 30-34.9 Fibromyalgia Vitamin D Deficiency Ild (Interstitial Lung Disease) ([facility]) Status Post Left Hip Replacement HPI: Rosa Blackwood presents today for an intermediate post-op visit. STATUS POST: Left Total Hip Replacement BMI: There is no height or weight on file to calculate BMI. Post operative recovery was complicated by dislocation. Patient rates his condition as improving. Does the patient still experience pain? . Location: Left hip: Groin. Frequency: occasionally. Pain scale: 3. Pain character: ache. Relieving factors: Rest. Post Op discharge patient location: in home. Functional Assessment is as follows: has already started outpatient PT as of this visit. Functional difficulties: None. Pain Medication: Non-narcotic EXAM: POST OP HIP LEFT POST-OPERATIVE HIP SKIN: Appropriate postop appearance, No evidence of erythema, warmth, discharge or drainage and No evidence of warmth or erythema. Range of Motion: Pain Free Neurovascular Status: Sensation Intact, Moves foot and ankle up AND down and 2+ dorsalis pedis IMAGING: X-ray Hips: Post op Implants are well fixed., There is no evidence of loosening., There is evidence of osteo-integration., There is no evidence of osteolysis. and There is no radiolucency appreciated. Provider: MD May Lunsford RNFA, RN Completed by: Shailesh Ferrer MD Referring Provider: LUI HSU [[id number]] Allergies As of Date: 05/10/2018 Noted Allergy Reaction AMPICILLIN 08/18/2006 16 - Unknown Comments: Told as a child allergic, has had similar meds since CIPROFLOXACIN 07/01/2015 6 - Diarrhea CLINDAMYCIN 07/01/2015 6 - Diarrhea Date Reviewed: 05/10/2018 Reviewed by: Shailesh Ferrer - Fully Assessed Reason for Visit: Surgical Followup [104] Cmt: left hip DOS 03/16/18 Primary Visit Diagnosis:Status post left hip replacement [Z96.642] Other Visit Diagnoses:Fibromyalgia [M79.7] Obesity, Class I, BMI 30-34.9 [E66.9] Vitamin D deficiency [E55.9] Prescriptions as of 05/10/2018 Sig: ASPIRIN 81 MG TABLET,DELAYED * Take 1 [...] GEL Apply to affected area four t* [id number] ORAL Take by mouth once daily. CO [...] by mouth. Problem List As Of Date 05/10/2018 Noted Resolved Current chronic use of systemic [...] post left hip replacement [Z96.642] INVALID FOR* Visit Notes: >> May (Cap Sewer) MARY Mcdonough Mon May 10, 2018 10:42 AM Status: Signed Patient her today as she has concerns that since her dislocation on 04.05.18, she has felt the hip joint slipping and that it feels on the cusp of dislocation and she feels discomfort. She saw her PT the other day and they were to d/c her from home pt and after seeing her, patient states the therapist has concerns of possible dislocation or partial dislocation and wanted her to get in and see the surgeon today to confirm joint is well placed Encounter Status:Closed by SHAILESH FERRER MD on 05/10/18 PROGRESS Observed: 04/12/2018 Status: COMPLETED Source: [place] 3:44 PM [facility] REPOSITORY HNO ID: [id number] Author: Lui Hsu Service: (none) Author Type: Physician Type: Progress Notes Filed: 04/12/2018 3:51 PM Note Text: Rosa Fabby Chastity [id number] April 12, 2018 3:44 PM Rosa Balckwood returns 4 weeks status post left hip [...] in either direction. We discussed how to corn picker things on the floor. She will continue [...] PM CNOV Observed: 04/12/2018 Status: COMPLETED Source: [place] 2:00 PM [facility] REPOSITORY Office Visit (ORTHMN) ROSA BLACKWOOD ([id number]) 1960 F Date Time Provider Department 04/12/18 2:00 PM [facility] ORTHMN During your visit today, we recorded the following information about you: Lui Hsu MD 04/12/2018 3:51 PM Signed Rosa Blackwood [id number] April 12, 2018 3:44 PM Rosa Blackwood [...] in either direction. We discussed how to corn picker things on the floor. She will continue [...] 2018 3:47 PM Referring Provider: LUI HSU [[id number]] Allergies As of Date: 04/12/2018 Noted Allergy [...] Order(s):CONSULT TO RHEUM/IMMUN DISEASE [9039] Order #: [id number]: 1 Prescriptions as of 04/12/2018 Sig: DOCUSATE [...] GEL Apply to affected area four t* [id number] ORAL Take by mouth once daily. CO [...] EMERGENCY DEPARTMENT Observed: 04/04/2018 Status: F Source: [place] SUMMARY 8:57 PM [facility] REPOSITORY [facility] Medical Records Department [address] [place] [address] Emergency Department Summary 04/04/181929 MR#: [id number] Acct: [id number] Name: ROSA BLACKWOOD Rep #: [id number] : 1960 57 From: [facility] PCP: [...] replacement March [address] 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 Doing well post surgery. Has not had her follow-up. On chronic [place]. Status post 12.5 mics of fentanyl IV. [...] procedure sedation This note was generated with Gogoyoko dictation software. It may contain incorrect words, [...] your Primary Care Provider. Call [facility] ([phone]) or report to the closest Emergency Room. Call 911 if necessary. 04/04/182056 <Electronically signed by Christian Hemphill> Date Christian Hemphill Cosigner Signature (If Indicated): Date CC: Valeriano Munoz MD HIP MIN 2 VIEWS Observed: 04/04/2018 Status: F Source: [place] (PORTABLE) 8:11 PM [facility] HOSPITAL REPOSITORY [facility] Imaging Services [address] [place] [address] Hip Min 2 Views (Portable) MR#: [id number] Acct: [id number] Name: ROSA BLACKWOOD Rep #: [id number] : 1960 F 57 From: Vazquez Kaye MD PCP: Valerinao Munoz MD Status: DEP ER Study: Hip Min 2 Views (Portable) Date of Exam: 04/04/18 Exam# [id number] Ordering Dr: Christian Schrader DO STUDY: X-RAY [...] , CC: Valeriano Munoz MD; Christian Schrader 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: Signed HIP, UNI W/ PELVIS Observed: 04/04/2018 Status: F Source: [place] 2-3 VIEWS 7:07 PM [facility] HOSPITAL REPOSITORY [facility] Imaging Services [address] [place] [address] HIP, UNI W/ Pelvis 2-3 Views MR#: [id number] Acct: [id number] Name: ROSA BLACKWOOD Rep #: [id number] : 1960 F 57 From: Davi Ambrose DO PCP: Valeriano Munoz MD Status: DEP ER Study: HIP, UNI W/ Pelvis 2-3 Views Date of Exam: 04/04/18 Exam# [id number] Ordering Dr: Christian Schrader DO STUDY: X-RAY [...] Davi Ambrose DO at 22:07 EST Tel [phone], Service support , CC: Valeriano Munoz MD; Christian Schrader 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: Signed XR OUTSIDE CD DICOM Observed: 04/04/2018 Status: F Source: [facility] 12:00 AM [facility] [place] REPOSITORY Images were obtained outside of [facility] [id number] CASE MANAGEM Observed: 03/18/2018 Status: COMPLETED Source: [place] 2:57 PM [facility] REPOSITORY HNO ID: [id number] Author: Shawnee CabanRn) MARY Segura Service: Care Management Author Type: Registered [...] 18, 2018 TIME: 3:20 PM PAGER/CONTACT #: [phone] CNDS Observed: 03/18/2018 Status: COMPLETED Source: [place] 2:57 PM [facility] REPOSITORY [facility] ID: [id number] Author: Wendy Mckoy MD Service: Orthopaedic Surgery [...] Systemic Steroids Rheumatoid Arthritis Involving Multiple Sites (Hcc) Obesity, Class I, Bmi 30-34.9 Osteonecrosis of Left Hip (Hcc) Fibromyalgia Vitamin D Deficiency Oa (Osteoarthritis) of Hip Ild (Interstitial Lung Disease) ([facility]) Status Post Left Hip Replacement Surgeries During [...] A AND NA 10/21/2018 3:40 PM Sukumar Puckett RHEUSO [facility] Solo In accordance to [facility] guidelines, this serves as official documentation [...] affected area four times daily. Historical Med KQTVKNT-UAECZTSTY-VUIX ORAL Take by mouth once daily. Historical [...] April 01, 2018 TIME: 3:51 PM PAGER: [phone] PLAN OF CARE Observed: 03/18/2018 Status: COMPLETED Source: [place] 2:11 PM [facility] [place] REPOSITORY O ID: [id number] Author: Elle Chaney (Book Author) Service: (none) Author Type: (none) Type: Plan of Care Filed: 03/18/2018 2:13 PM Note Text: PHARMACY BEDSIDE DELIVERY SERVICE Patient Name: Rosa Blackwood The marked outpatient medications were Filled at: [facility] and delivered to the patient's [...] hr tablet Commonly known as: WELLBUTRIN XL JDULPMC-HAJXMPQSA-LREO ORAL CO Q-10 ORAL COMPOUNDED PRESCRIPTION diclofenac [...] STOP taking these medications NORCO ORAL Elle Gabriellebrandon (Book Author) PAGER: [phone] March 18, 2018 2:11 PM THERAPY NT Observed: 03/18/2018 Status: COMPLETED Source: [place] 12:21 PM [facility] REPOSITORY [facility] ID: [id number] Author: Yvette Esparza Service: Physical Therapy Author Type: Aging Department Supervisor Type: Therapy (PT/OT/Speech/Resp) Filed: 03/18/2018 12:26 PM Note Text: Attestation signed by Sukumar Moser at 03/19/2018 7:25 AM I reviewed and agree with the documentation corresponding to this therapy visit. SIGNATURE: Sukumar Moser PT DATE: March 19, 2018 TIME: 7:25 AM Physical Therapy Treatment SERVICE DATE: 03/18/2018 SERVICE TIME: 1054 to 1147 ROOM: [place] [address] Recommended Discharge Disposition: Home PT Anticipated Discharge [...] Diagnosis: Reduced mobility-other Interventions Provided: Therapeutic Activity (32580);Gait Training (39833) Therapeutic Activity (57787) Treatment Minutes: 30 2 units Skilled Intervention(s): Instructed patient in supine to sit pushing with upper extremities to sit up. Instruction for technique and use of leg plastic boat patcher. Instructed patient in sit to supine using [...] of RENA precautions during transfer. Gait Training (66207) Treatment Minutes: 23 2 units Skilled Intervention(s): [...] CASE MANAGEM Observed: 03/18/2018 Status: COMPLETED Source: [place] 11:58 AM [facility] REPOSITORY HNO ID: [id number] Author: Krystle Hernández (Asst) Service: Care Management Author Type: Resource Center Router Machine Operator Type: Care Mgt Progress Note Filed: 03/18/2018 12:00 PM Note Text: CARE MANAGEMENT PROGRESS NOTE SERVICE DATE: 03/18/2018 SERVICE TIME: 11:16 LOS: 2 days IM letter given to patient on 03/18/18. SIGNATURE: Asst Rebeka PATIENT NAME: Rosa Blackwood DATE: March 18, 2018 TIME: 11:59 AM PAGER/CONTACT #: [phone] PLAN OF CARE Observed: 03/18/2018 Status: COMPLETED Source: [place] 11:32 AM [facility] REPOSITORY [place]NO ID: [id number] Author: Elle Chaney ([employer]) Service: (none) Author Type: (none) Type: Plan of Care Filed: 03/18/2018 11:32 AM Note Text: Pharmacy Discharge Medication Service: This patient has elected to receive their discharge prescriptions through the [facility] Bedside Prescription Delivery program. The prescriptions are currently being processed. A follow-up note will be entered once the prescriptions have been filled and delivered to the patient. Please contact me with any questions or updates to the patient's discharge medications. Elle Chaney ([employer]) DCT Contact Info: [phone] PLAN OF CARE Observed: 03/18/2018 Status: COMPLETED Source: [place] 8:48 AM [facility] REPOSITORY HNO ID: [id number] Author: Elle Chaney (Book Author) Service: (none) Author Type: (none) Type: Plan of Care Filed: 03/18/2018 1:15 PM Note Text: RECONCILIATION MANAGER BEDSIDE DELIVERY SURVEY 1. Patient to use [facility] Bedside Delivery - YES 2. If fax, patient would like us to fax prescriptions to Pharmacy of choice a. Pharmacy: b. Location: c. Phone: 3. Insurance card on file - YES 4. Credit card for payment - NO Per MARY Scott patient does not want tylenol or colace filled here. Spoke with patient and she needs to wait for to come with form of payment. 1:13p is not here yet. Asked MARY Romero [phone] to page me when he comes. He has form of payment. PROGRESS Observed: 03/18/2018 Status: COMPLETED Source: [place] 6:27 AM [facility] REPOSITORY HNO ID: [id number] Author: Wendy Mckoy MD Service: Orthopaedic Surgery [...] Wendy Mckoy MD Orthopedic Surgery, PGY1 Pager: [phone] If urgent, page 2-BONE BASIC METABOLIC PANL Collected: 03/17/2018 Status: F Source: [place] 10:21 PM [facility] REPOSITORY TYPE CODE TESTS RESULT OUT OF REFERENCE UNITS RANGE LAB GLU 74-99 mg/dL High Glucose 106 Result Comment: The [place] Diabetes Association (ADA) provides guidance for cutoff [...] Standards of Medical Care in Diabetes 2016, [place] Diabetes Association. Diabetes Care. 2016.39(Suppl 1). LAB [...] GFR. Performed By: #### BMP, CBC #### [facility] [address] [place] [place], [place] [address] CBC Collected: 03/17/2018 Status: F Source: [place] 10:21 PM [facility] REPOSITORY TYPE CODE TESTS RESULT OUT OF [...] <0.01 Performed By: #### BMP, CBC #### [facility] [address] [place] [address] THERAPY NT Observed: 03/17/2018 Status: COMPLETED Source: [place] 4:29 PM [facility] REPOSITORY HNO ID: [id number] Author: Porsha Nassar Service: Physical Therapy Author Type: Aging Department Supervisor Type: Therapy (PT/OT/Speech/Resp) Filed: 03/17/2018 4:35 PM Note Text: Attestation signed by Sukumar Moser at 03/19/2018 7:24 AM I reviewed and agree with the documentation corresponding to this therapy visit. SIGNATURE: Sukumar Moser, PT DATE: March 19, 2018 TIME: 7:24 AM Physical Therapy Treatment SERVICE DATE: 03/17/2018 SERVICE TIME: 1605 to 1625 ROOM: [place] [address] Recommended Discharge Disposition: Home PT Anticipated Discharge [...] Diagnosis: Reduced mobility-other Interventions Provided: Gait Training (61524) Gait Training (35429) Treatment Minutes: 15 1 unit Skilled Intervention(s): [...] THERAPY NT Observed: 03/17/2018 Status: COMPLETED Source: [place] 11:50 AM [facility] REPOSITORY HNO ID: [id number] Author: DEANNE Meneses/aFbby Service: Occupational Therapy Author Type: Occupational Therapist Type: Therapy (PT/OT/Speech/Resp) Filed: 03/17/2018 11:59 AM Note Text: Occupational Therapy Evaluation SERVICE DATE: 03/17/2018 SERVICE TIME: 1045 to 1138 ROOM: [place] [address] Recommended Discharge Disposition: Home Anticipated Discharge Needs: [...] daily living (ADL) Interventions Provided: Evaluation;Therapeutic Activity (95416);Self Snf Management (41713) $ Evaluation-Low (35123) Billed Units: 1 unit Therapeutic Activity (19998) Treatment Minutes: 15 1 unit Skilled Intervention(s): Educated pt on role of OT, POC and recs. Educated on post op hip precs; WB status and application of such to ADL's and functional mobility. Pt provided with booklet which was reviewed in detail Bed mobility-pt educated on technique and sequencing. Pt issued leg plastic boat patcher to manage surgical leg, educated on use of such while adhering to post op hip precs. Pt practiced using leg plastic boat patcher for elevated supine<>sit. Cues provided for proper tech. Functional mobility-pt ambulated with WW in prep for household ambulation, cues provided for walker safety/seq/tech. Functional tyheujocn-kddwpj-nj instructed to push with UE's from stable surface versus pulling on walker. Instructed to feel surface posterior to legs prior to reaching back with UE's in prep for sitting. Pt cued for surgical leg positioning during such transfer. Pt adhering to WB status, reinforced bearing down with UE's through walker to support WB restrictions. Self Snf Management (95574) Treatment Minutes: 23 2 units Skilled Intervention(s): [...] undress such last. Educated on use of city councilman and sock aid. Pt practiced donning/doffing LB [...] CODE: OT 6 Clicks Score: 19 (03/17/18 1045) Self Care Current Status (G8987): CK (03/17/18 1045) Self Care Goal Status (G8988): CJ (03/17/185) Self Care Discharge Status (G8989): (03/17/181044) Based on clinical assessment and the [...] MGT INIT Observed: 03/17/2018 Status: COMPLETED Source: [facility] 11:25 AM [facility] REPOSITORY [facility] ID: [id number] Author: Jagruti (Mary) MARY Rod Service: Case Management Author Type: Registered Nurse Type: Care Mgt Initial Assessment Filed: 03/17/2018 4:10 PM Note Text: CARE MANAGEMENT: ASSESSMENT AND DISCHARGE PLAN SERVICE DATE: 03/17/2018 SERVICE TIME: 10:15am PRIMARY CARE PHYSICIAN: Valeriano Munoz MD ADMISSION STATUS: Inpatient Needs Prior to Discharge: Accepting Facility;Facility or Agency Choices;Home Care Order 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 No Advance Directive: Current Advance Directive: None Paradichlorobenzene Machine Operator Attempted to Assist with AD Completion: Yes [...] chair Has the Patient Been in a Alf Facility in the Past 30 days? No SOCIAL: Living Arrangement: Home Lives With: Spouse Financial Resources: Disabled Primary Contact: Extended Emergency Contact Information Primary Emergency Contact: Sagrario Blackwood Address: [address] [place] [id number] Mobile Relation: Spouse Supportive: Yes Other Important Patient Contacts: None Caregiver Assessment: Caregiver is ready, willing and able to meet the patient's needs as recommended by the inter-professional team? Yes Patient's transition needs and plan for meeting these needs: [facility] Does the patient have an acute stroke diagnosis, or has the patient had a stroke during this admission? No Medication Adherence: I am convinced of the importance of my prescription medication: Agree mostly - 0 I worry that my prescription medication will do more harm than good to me Disagree mostly - 0 I feel financially burdened by my cfi-zy-kmyicf expenses for my prescription medication: Disagree mostly [...] anticipates she will dc home tomorrow with [facility]. Provider list provided to patient. Patient will review and make choices. CM to f/u. to transport at time of discharge. UPDATE:4:09 PM CM received [facility] Choices from patient: #1 [facility] #2 [facility] #3 [facility]. Referral sent. Awaiting acceptance. SIGNATURE: Jagruti Rod RN PATIENT NAME: Rosa Blackwood DATE: March 17, 2018 TIME: 11:25 AM PAGER/CONTACT #: [phone] THERAPY NT Observed: 03/17/2018 Status: COMPLETED Source: [place] 10:36 AM [facility] REPOSITORY [facility] ID: [id number] Author: Porsha Nassar Service: Physical Therapy Author Type: Aging Department Supervisor Type: Therapy (PT/OT/Speech/Resp) Filed: 03/17/2018 10:42 AM Note Text: Attestation signed by Sukumar Moser at 03/19/2018 7:24 AM I reviewed and agree with the documentation corresponding to this therapy visit. SIGNATURE: Sukumar Moser PT DATE: March 19, 2018 TIME: 7:24 AM Physical Therapy Treatment SERVICE DATE: 03/17/2018 SERVICE TIME: 0900 to 0950 ROOM: [place] [address] Recommended Discharge Disposition: Home PT Recommended Discharge [...] Diagnosis: Reduced mobility-other Interventions Provided: Therapeutic Exercise (83325);Therapeutic Activity (57874);Gait Training (89019) Therapeutic Exercise (38148) Treatment Minutes: 15 1 unit Pt. Performed supine there ex x 10 reps including GS QS AP HS with assist SAQs Hip abd with assist Issued and reviewed total hip packet vcs throughout for correct technique Skilled Intervention(s): Instruction in therapeutic exercise per THR protocol Therapeutic Activity (01886) Treatment Minutes: 10 1 unit Skilled Intervention(s): [...] mobility. Review of precautions provided. Gait Training (59475) Treatment Minutes: 13 1 unit Skilled Intervention(s): [...] AM PROGRESS Observed: 03/17/2018 Status: COMPLETED Source: [place] 5:10 AM [facility] REPOSITORY HNO ID: [id number] Author: Wendy Mckoy MD Service: Orthopaedic Surgery [...] Wendy Mckoy MD Orthopedic Surgery, PGY1 Pager: [phone] If urgent, page 2-BONE CBC Collected: 03/16/2018 Status: F Source: [place] 11:09 PM [facility] REPOSITORY TYPE [...] <0.01 Performed By: #### CBC, BMP #### [facility] [address] [place], [place] [address] BASIC METABOLIC PANL Collected: 03/16/2018 Status: F Source: [place] 11:09 PM [facility] REPOSITORY TYPE CODE TESTS RESULT OUT OF REFERENCE UNITS RANGE LAB GLU 74-99 mg/dL High Glucose 100 Result Comment: The [place] Diabetes Association (ADA) provides guidance for cutoff [...] Standards of Medical Care in Diabetes 2016, [place] [employer]. Diabetes Care. 2016.39(Suppl 1). LAB [...] GFR. 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 Pt with [...] Diagnosis: Reduced mobility-other Interventions Provided: Evaluation;Therapeutic Exercise (05847);Gait Training (40466) $ Evaluation-Moderate (81717) Billed Units: 1 unit Therapeutic Exercise (89932) Treatment Minutes: 15 1 unit Skilled Intervention(s): Instruction in therapeutic exercise APs, QS, GS, HS, SAQ, weight shifts in standing, standing marching LLE x 10 each Gait Training (88310) Treatment Minutes: 11 1 unit Skilled Intervention(s): [...] G CODE: PT 6 Clicks Score: 19 (03/16/18 1334) Mobility: Walking and Moving Around Current Status (G8978): CK (03/16/18 133) Mobility: Walking and Moving Around Goal Status (G8979): CJ (03/16/18 133) Based on clinical assessment and the score [...] details for this therapy evaluation/treatment. SIGNATURE: Yissel aFria PT PATIENT NAME: Rosa Blackwood DATE: March 16, 2018 TIME: 4:26 PM CBC Collected: 03/16/2018 Status: F Source: [place] 2:30 PM [facility] REPOSITORY TYPE CODE TESTS RESULT OUT OF [...] nRBC <0.01 Performed By: #### CBC #### [facility] [address] [place], [place] [address] XR HIP 1V LT Observed: 03/16/2018 Status: F Source: [place] 2:18 PM [facility] REPOSITORY * * *Final Report* * * [...] IMPRESSION: STATUS POST LEFT TOTAL HIP ARTHROPLASTY. 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: SANJUANA Transcribe Date/Time: Mar 16 2018 2:58P Dictated by : GAYLE LOPEZ MD This examination was interpreted and the report reviewed and electronically signed by: GAYLE LOPEZ MD on Mar 16 2018 2:59PM EST [id number] OPERATIVE NO Observed: 03/16/2018 Status: COMPLETED Source: [place] 1:22 PM [facility] REPOSITORY HNO ID: [id number] Author: Lui Hsu Service: Orthopaedic Surgery Author Type: Physician Type: Operative Report Filed: 03/16/2018 1:25 PM Note Text: OPERATIVE REPORT TOTAL HIP ARTHROPLASTY LOG ID: [id number] Surgery/Procedure Date: 03/16/2018 Incision/Procedure Start Time: 11:31 AM Incision Close/Procedure End Time: 1:25 PM Surgeon(s)/Proceduralist(s) and Router Machine Operator(s): Surgeon(s) and Role: * Lui Hsu - Primary * Wendy (Res) MD Leelee - Resident - Assisting No Additional Staff Procedure(s): Procedure(s) (LRB): ARTHROPLASTY REPLACE JOINT TOTAL HIP (Left) Anesthesia: Spinal Procedure Details: RENA Procedure Details assistant nurse manager assisted in positioning and draping the patient, [...] of 48 mm. Solid back Triden cup ([place]) was placed, 48 mm in diameter.. This was placed in approximately 50 degrees of flexion and 35 degrees of anteversion. A uimdwpn-ig-dvrljuy liner was placed. The internal diameter of the liner was 32 mm. Attention was then turned to the femur, which was reamed and broached to identify a [place] citation TZMF (size 3) implant as optimal. [...] deep drain was left in place. The gfbjuu-mj-splof sutures with #1 Vicryl were used to [...] Implant Name Type Inv. Item Serial No. Senior Accounts Payable Clerk Lot No. LRB No. Used LINER 32MM 0D D X3 5.9MM ACETABULAR HIP - [id number] Joint - Hip LINER 32MM 0D D X3 5.9MM ACETABULAR HIP [employer] [id number] Left 1 SHELL TRIDENT 48MM D HEMISPHERICAL METAL SANDOVAL ACETABULAR SOLID BACK HIP - [id number] Joint - Hip SHELL TRIDENT 48MM D HEMISPHERICAL METAL SANDOVAL ACETABULAR SOLID BACK HIP [employer] [id number] Left 1 STEM [place] 12MM 132D 3 40MM OFFSET PUREFIX TMZF 125MM 28MM FEMORAL HIP - [id number] Joint - Hip STEM [place] 12MM 132D 3 40MM OFFSET PUREFIX TMZF 125MM 28MM FEMORAL HIP [employer] [id number] Left 1 HEAD V40 32MM +4MM OFFSET TAPER BIOLOX DELTA FEMORAL HIP - [id number] Joint - Hip HEAD V40 32MM +4MM OFFSET TAPER BIOLOX DELTA FEMORAL HIP [employer] [id number] Left 1 Bearing Surface: Ceramic on Poly Fixation: Cementless Drains: None Complications: None, patient tolerated procedure well. Participation in Procedure: The primary surgeon/proceduralist performed the procedure with assistance. SIGNATURE: Lui Hsu MD PATIENT NAME: Rosa Blackwood DATE: March 16, 2018 TIME: 1:22 PM PAGER/CONTACT #: ANES POST Observed: 03/16/2018 Status: COMPLETED Source: [place] 10:42 AM [facility] REPOSITORY O ID: [id number] Author: Joshua Whaley Service: Anesthesiology Author Type: Anesthesiologist Type: Anesthesia PostOp Filed: 03/17/2018 3:09 PM Note Text: POST ANESTHESIA EVALUATION NOTE SERVICE DATE: 03/16/2018 SERVICE TIME: 1629 : 1960 Vitals: 03/16/18195103/16/18233803/17/180 03/17/18 0734 Temp: 36.7 ?C (98 ?F) 37.1 ?C (98.8 ?F) 37.2 ?C (99 ?F) 37.6 ?C (99.6 ?F) 03/16/18233803/17/180 03/17/18 0734 03/17/18 1210 BP: 112/66 125/64 101/57 108/61 03/16/18233803/17/18 0400 03/17/18 0734 03/17/18 1210 Pulse: 85 81 91 83 03/16/18233803/17/18 0400 03/17/18 0734 03/17/18 1210 Resp: 03/16/18233803/17/18 0400 03/17/18 0734 03/17/18 1210 SpO2: 95% 98% [...] 17, 2018 TIME: 3:09 PM PAGER/CONTACT #: [phone] NURSING PROG Observed: 03/16/2018 Status: COMPLETED Source: [place] 9:55 AM [facility] REPOSITORY HNO ID: [id number] Author: Mariaelena CabanRn) MARY Schwartz Service: (none) Author Type: Registered Nurse Type: [...] Signed By: Mariaelena Schwartz RN In Department: [facility] M023 PROGRESS Observed: 03/12/2018 Status: COMPLETED Source: [place] 5:02 PM [facility] REPOSITORY HNO ID: [id number] Author: Ophelia Nguyen (Rt) Service: Radiology Author Type: Regulatory Submissions Associate Type: Progress Notes Filed: 03/12/2018 5:02 PM [...] IV DATA: Not applicable SIGNED BY: RT oMmo March 12, 2018 5:02 PM XR CHEST 2V FRONTAL/LAT Observed: 03/12/2018 Status: F Source: [place] 5:02 PM [facility] REPOSITORY * * *Final Report* * * [...] spine. IMPRESSION: See body of the report 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: PSCB Transcribe Date/Time: Mar 13 2018 4:51P Dictated by : BOGDAN SHEETS MD This examination was interpreted and the report reviewed and electronically signed by: BOGDAN SHEETS MD on Mar 13 2018 4:52PM EST [id number] PROGRESS Observed: 03/12/2018 Status: COMPLETED Source: [place] 4:57 PM [facility] REPOSITORY HNO ID: [id number] Author: Ambreen (Rn) MARY Contreras Service: (none) Author Type: Registered Nurse Type: Progress Notes Filed: 03/15/2018 8:45 AM Note Text: ANESTHESIA PRE-OPERATIVE ASSESSMENT (PACE) SERVICE DATE: 03/12/2018 SERVICE TIME: 400 ASSESSMENT AND PLAN: Rosa Blackwood is a 57 year old female scheduled for Left Hip Total Arthoplasty per Informed Consent in [facility] on 03/16/18. PMH: 1. Hip OA, [...] spine. CNOV Observed: 03/12/2018 Status: COMPLETED Source: [place] 3:30 PM [facility] REPOSITORY Office Visit (PSSCMN) ROSA BLACKWOOD ([id number]) 1960 F Date Time Provider Department 03/12/18 3:30 PM [facility] PSSCMN During your visit today, we recorded the following information about you: Pulse Blood pressure Weight Height 85/minute 104/78 79.4 kg 1.6 m Ambreen Contreras, RN, RN 03/15/2018 8:45 AM Addendum ANESTHESIA PRE-OPERATIVE ASSESSMENT (PACE) SERVICE DATE: 03/12/2018 SERVICE TIME: 400 ASSESSMENT AND PLAN: Rosa Blackwood is a 57 year old female scheduled for Left Hip Total Arthoplasty per Informed Consent in [facility] on 03/16/18. PMH: 1. Hip OA, osteonecrosis with subluxation- for above surgery 2. HTN- norvasc and losartan 3. Interstitial lung disease, hx of cryptogenic organizing pneumonia (dx in 2014)- followed by pulmonary, per pt MD is aware of upcoming surgery. [place] is requesting the last pulmonary note . [...] 5. GERD- prilosec 6.? Rheumatoid arthritis, fibromyalgia- cintia awad. 7. Degenerative disc in neck and back, [...] Diarrhea Date Reviewed: 03/12/2018 Reviewed by: Ambreen (Mary) MARY Contreras - Fully Assessed Primary Visit Diagnosis:Pre-op [...] EXTRACT ORAL Take by mouth once daily. BHMBJIQ-MZJDPLSZQ-TXAS ORAL Take by mouth once daily. CO [...] Chart Close Cosign Accepted by: BENEDICTO HUNTER MD[[id number]] Chart Close Cosign Accepted on: Sat Mar 13, 2018 12:26 PM HISTORY PHYSICAL Observed: 03/12/2018 Status: COMPLETED Source: [place] 2:24 PM [facility] REPOSITORY [facility] ID: [id number] Author: Edgar Olson Service: (none) Author Type: [...] mg per tablet Take by mouth. Mon, thu, fri Disp: Rfl: predniSONE (DELTASONE) 10 mg [...] Patch as directed as needed. Disp: Rfl: UNKQNOQ-MWZXJFYUY-PUIH ORAL Take by mouth once daily. Disp: [...] fevers. 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 No neurological symptoms or problems. Respiratory: ILD prednisone and imuran Cardiovascular: Hypertension requiring meds GI: GERD : No history of UTI in past 6 weeks. No history of renal failure. Not currently on or requiring dialysis. No history of symptoms or problems. 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 Hsu Date of Surgery: [...] DRINKS Medications reviewed and updated: Yes Migel BANERJEEOV Observed: 03/12/2018 Status: COMPLETED Source: [place] 2:15 PM [facility] REPOSITORY Office Visit (IMPAMN) ROSA BLACKWOOD ([id number]) 1960 F Date Time Provider Department 03/12/18 2:15 PM EDGAR OLSON During your visit today, we recorded the following information about you: Temperature Pulse Blood pressure Weight 97.9 degrees 85/minute 104/78 79.4 kg Height 1.6 m Migel Nelson 03/12/2018 3:22 PM Signed Rosa Blackwood is a 57 year old female here today for visit in [facility] Referring Surgeon: Dr. Hsu Date of Surgery: [...] mg per tablet Take by mouth. Mon, thu, fri Disp: Rfl: predniSONE (DELTASONE) 10 mg [...] Patch as directed as needed. Disp: Rfl: OFCXMXB-DXAQUKZII-MRCA ORAL Take by mouth once daily. Disp: [...] fevers. 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 No neurological symptoms or problems. Respiratory: ILD prednisone and imuran Cardiovascular: Hypertension requiring meds GI: GERD : No history of UTI in past 6 weeks. No history of renal failure. Not currently on or requiring dialysis. No history of symptoms or problems. 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 at [phone] or [phone], [phone]. Signature: Edgar Olson MD Date: March 12, 2018 Referring Provider: LUI HSU [[id number]] Allergies As of Date: 03/12/2018 Noted Allergy Reaction AMPICILLIN 08/18/2006 16 - Unknown Comments: Told as a child allergic, has had similar meds since CIPROFLOXACIN 07/01/2015 6 - Diarrhea CLINDAMYCIN 07/01/2015 6 - Diarrhea Date Reviewed: 03/12/2018 Reviewed by: Ambreen (Rn) MARY Contreras - Fully Assessed Primary Visit Diagnosis:Osteonecrosis of left hip (HCC) [M87.9] Other Visit Diagnoses:Pre-operative examination [Z01.818] Osteoarthritis of left hip, unspecified osteoarthritis type [M16.12] Obesity, Class I, BMI 30-34.9 [E66.9] Current chronic use of systemic steroids [Z79.52] ILD (interstitial lung disease) ([facility]) [J84.9] Rheumatoid arthritis involving multiple sites, unspecified rheumatoid factor presence (HCC) [M06.9] Order(s):XR CHEST 2V FRONTAL/LAT [8717380] Order #: [id number] FUTURE Prescriptions as of 03/12/2018 Sig: COMPOUNDED [...] Apply 1 Patch as directed as * DEESMHV-UCCBNXWVJ-QDNQ ORAL Take by mouth once daily. CO [...] NELSON MIGEL ThuMar 12, 2018 2:32 PM ARAVA ORAL >> Migelquita Borregoa 03/12/2018 2:32 PM >> NELSON MIGEL ThuMar 12, 2018 2:32 PM CEFTIN 250 MG TABLET >> Migel Nelson 03/12/2018 2:32 PM >> NELSON, MIGEL ThuMar 12, 2018 2:32 PM RELAFEN 500 MG TABLET >> Migel Nelson 03/12/2018 2:32 PM >> NELSON MIGEL ThuMar 12, 2018 2:32 PM AVALIDE 150 MG-12.5 MG TABLET >> Migelquita Borregoa 03/12/2018 2:28 PM >> MIGEL NELSON ThuMar 12, 2018 2:28 PM Problem List [...] INVALID FOR* Other instructions from your clinician: [facility] Patient Instructions for Surgery FOOD INSTRUCTIONS: NO [...] please do not hesitate to contact the [facility] at [phone] or [phone], ext [phone]. Signature: Edgar Olson MD Date: March 12, [...] 03/12/18 EKG1 Observed: 03/12/2018 Status: F Source: [place] 2:03 PM [facility]AMPUS REPOSITORY NAME : ROSA BLACKWOOD PID : [id number] : 1960 Gender : Female Race : [...] ms QTC Calculation(Bezet) : 432 ms P [place] : 51 degrees R [place] : 11 degrees T [place] : 33 degrees Test Reason : Location : 119 : A17 Overread By : CARMELITA HARDIN MD Edited By : CARMELITA HARDIN MD Referred By : , Acquired by : MARY YUEN STAPH AUREUS PCR Collected: 03/08/2018 Status: F Source: [place] 11:26 PM [facility] REPOSITORY TYPE CODE TESTS RESULT OUT OF REFERENCE UNITS RANGE LAB SASRC Nasal S aureus Spec Source LAB MRSRES Negative for MRSA MRSA by PCR. PCR LAB SARES Negative for Staph Staphylococcus aureus PCR aureus by PCR. Performed By: #### SAPCR #### [facility] [address] [place], [place] [address] URINALYSIS Collected: 03/08/2018 Status: F Source: [place] 5:18 PM [facility] REPOSITORY TYPE CODE TESTS RESULT OUT OF RANGE REFERENCE UNITS LAB UCOL Yellow Color Abnormal Mady Alert LAB [facility] Clear Clarity Abnormal Cloudy Alert LAB UGLUC Negative mg/dL Glucose, Urine Negative LAB UBIL Negative Bilirubin, Urine Negative LAB UKET Negative Ketones, Abnormal Urine Trace Alert LAB USPG 1.005-1.030 Specific [place], Ur 1.030 LAB UHGB Negative Hemoglobin/Blood, Negative [...] Oxalate Crystal Performed By: #### UA #### [email or web address] [address] [id number] CONFIRM BLOOD TYPE Collected: 03/08/2018 Status: F Source: [place] 4:45 PM [facility] REPOSITORY TYPE CODE TESTS RESULT OUT OF REFERENCE UNITS RANGE LAB %ABR A ABO/RH(D) POSITIVE Performed By: #### CONABO #### [email or web address] [address] [place] [address] CBC AND DIFFERENTIAL Collected: 03/08/2018 Status: F Source: [place] 4:40 PM [facility] REPOSITORY TYPE CODE TESTS RESULT OUT OF [...] k/uL Abs Lymph 1.06 LAB AMONO % Beadle% 8.2 LAB AAMONO <0.87 k/uL Abs Beadle 0.45 LAB AEOS % Eosin% 1.5 LAB AAEOS <0.46 k/uL Abs Eosin 0.08 LAB ABASO % Baso% 0.4 LAB AABASO <0.11 k/uL Abs Baso <0.03 LAB AUNRBC 0 /100 WBC NRBCs 0.0 LAB ABNRBC <0.01 k/uL Absolute nRBC <0.01 LAB DTYP DTYPE Auto Diff Performed By: #### CBCDIF, WSR, VITD, BMP, CRP #### [email or web address] [address] [address] SED RATE WESTERGREN Collected: 03/08/2018 Status: F Source: [place] 4:40 PM [facility] REPOSITORY TYPE CODE TESTS RESULT OUT OF REFERENCE UNITS RANGE LAB WSR 0-20 mm/hr Sed Rate High Westergren 31 Performed By: #### CBCDIF, WSR, VITD, BMP, CRP #### [email or web address] [address] [address] VITAMIN D 25 HYDROXY Collected: 03/08/2018 Status: F Source: [place] 4:40 PM [facility] REPOSITORY TYPE CODE TESTS RESULT OUT OF REFERENCE UNITS RANGE LAB VITD 31.0-80.0 ng/mL Vitamin D 25 53.6 Hydroxy Result Comment: Classification of 25 [place] Vitamin D status: Insufficiency/Moderate Deficiency: < or = 30 ng/mL Sufficiency/Optimal Levels: 31 to 80 ng/mL Toxicity: > 100 ng/mL Test performed by chemiluminescent immunoassay. Performed By: #### CBCDIF, WSR, VITD, BMP, CRP #### [email or web address] [place] [address] BASIC METABOLIC PANL Collected: 03/08/2018 Status: F Source: [place] 4:40 [facility] REPOSITORY TYPE CODE TESTS RESULT OUT OF REFERENCE UNITS RANGE LAB GLU 74-99 mg/dL Glucose 95 Result Comment: The [place] Diabetes Association (ADA) provides guidance for cutoff [...] Standards of Medical Care in Diabetes 2016, [place] [employer]. Diabetes Care. 2016.39(Suppl 1). LAB [...] #### CBCDIF, WSR, VITD, BMP, CRP #### [email or web address] [address] [place] [address] C-REACTIVE PROTEIN Collected: 03/08/2018 Status: F Source: [place] 4:40 PM [facility] REPOSITORY TYPE CODE TESTS RESULT OUT OF REFERENCE UNITS RANGE LAB CRP <0.9 mg/dL C-Reactive 0.2 Protein Performed By: #### CBCDIF, WSR, VITD, BMP, CRP #### [email or web address] [address] [place], [place] [address] TYPE AND SCR (30D) Collected: 03/08/2018 Status: F Source: [place] 4:40 PM [facility] REPOSITORY TYPE CODE TESTS RESULT OUT OF REFERENCE UNITS RANGE LAB %ABR A ABO/RH(D) POSITIVE LAB % Antibody NEG Screen Performed By: #### [email or web address] #### [email or web address] [address] [place], [place] [address] XR HIP 3V PELV+ Observed: 03/08/2018 Status: F Source: [place] AP/LAT LT 4:10 PM [facility] REPOSITORY * * *Final Report* * * [...] concerning for a subcapital femoral neck fracture. 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: SANJUANA Transcribe Date/Time: Mar 09 2018 7:43A Dictated by : MISTY WHITMAN MD This examination was interpreted and the report reviewed and electronically signed by: ALEX SANCHEZ MD on Mar 09 2018 9:07AM EST [id number] PROGRESS Observed: 03/08/2018 Status: COMPLETED Source: [place] 4:09 PM [facility] REPOSITORY HNO ID: [id number] Author: Earlene Mcnamara Ct Service: (none) Author [...] PM PROGRESS Observed: 03/08/2018 Status: COMPLETED Source: [place] 1:55 PM [facility] REPOSITORY HNO ID: [id number] Author: Lui Hsu Service: (none) Author Type: Physician Type: Progress Notes Filed: 03/08/2018 2:12 PM Note Text: CONSULT ORTHOPAEDIC: HIP PRIMARY CARE PHYSICIAN: Valeriano Munoz MD REFERRING PROVIDER: Carlos Shipman MD [address] [facility] [address] Ms. Blackwood is 57-year-old woman with the [...] day hospital stay with discharge to home. [place] citation femoral complement and Trident cup planned. [...] for transfers and hygiene. 7) Physical Therapy: [place] for postop 8) Orthotics: None 9) Diet: [...] Caregiver Assistance: Consistent/Live-In (5-7 days/wk) Home Location: [place] PREVIOUS TREATMENTS: Use of cane and walker. [...] EXTRACT ORAL) Take by mouth once daily. WEBXHPY-PCCNGXTFI-OKSZ ORAL Take by mouth once daily. hydroxychloroquine [...] increase in pain and documented collapse show kqtm-lm-fofn changes with grade 4 osteonecrosis. MRI scan more recently shows grade 5 changes with collapse and 1 cm lateral subluxation of the right hip. Cystoscopy with rapidly progressive severely debilitating symptoms. SIGNATURE: Lui Hsu MD PATIENT NAME: Rosa Blackwood DATE: March 08, 2018 TIME: 1:55 PM CNOV Observed: 03/08/2018 Status: COMPLETED Source: [place] 12:00 PM [facility] REPOSITORY Office Visit (ORTHMN) ROSA BLACKWOOD ([id number]) 1960 F Date Time Provider Department 03/08/18 12:00 PM LUI HSU ORTHMN During your visit today, we recorded the following information about you: Lui Hsu MD 03/08/2018 2:12 PM Signed CONSULT ORTHOPAEDIC: HIP PRIMARY CARE PHYSICIAN: Valeriano Munoz MD REFERRING PROVIDER: Carlos Shipman MD [address] [facility] [address] Ms. Blackwood is 57-year-old woman with the [...] day hospital stay with discharge to home. [place] citation femoral complement and Trident cup planned. [...] for transfers and hygiene. 7) Physical Therapy: [place] for postop 8) Orthotics: None 9) Diet: [...] Caregiver Assistance: Consistent/Live-In (5-7 days/wk) Home Location: [place] PREVIOUS TREATMENTS: Use of cane and walker. [...] BIOPSY 2015 - TOTAL KNEE REPLACEMENT Left 2010 FAMILY [...] EXTRACT ORAL) Take by mouth once daily. DZHVLWZ-IROUONNJW-NFOK ORAL Take by mouth once daily. hydroxychloroquine [...] increase in pain and documented collapse show gxwl-ah-uuew changes with grade 4 osteonecrosis. MRI scan [...] RN 03/08/2018 2:26 PM Signed Addended by: MAY MCDONOUGH on: 03/08/2018 02:26 PM Modules accepted: Cody SmartBenjamín Hsu MD 03/08/2018 2:28 PM Signed Addended by: [...] [E55.9] Order(s):STAPH AUREUS PCR [SQSAPCR] Order #: [id number] CBC + DIFF [SQCBCDIF] Order #: [id number] FUTURE C-REACTIVE PROTEIN (CRP) [SQCRP] Order #: [id number] FUTURE SED RATE WESTERGREN [SQWSR] Order #: [id number] FUTURE VITAMIN D 25 HYDROXY [SQVITD] Order #: [id number] FUTURE UA CHEMSTRIP ONLY [SQUA] Order #: [id number] FUTURE BASIC METABOLIC PNL [SQBMP] Order #: [id number] FUTURE XR HIP GENERAL 3V PELV/AP/LAT LT [1927344] Order #: [id number] FUTURE SURGICAL REQUEST - ELECTIVE [8558119] Order #: [id number]: 1 BASIC METABOLIC PNL [SQBMP] Order #: [id number] FUTURE CBC + DIFF [SQCBCDIF] Order #: [id number] FUTURE TYPE + SCREEN,30 DAY [EVFAOJ58] Order #: [id number] FUTURE CONFIRM BLOOD TYPE [SQCONABO] Order #: [id number] FUTURE ECG COMPLETE W INTERPRETATION [ECG01] Order #: [id number] FUTURE CONSULT TO PHYSICAL THERAPY [9032] Order #: [id number]: 1 CONSULT TO INT MED-IMPACT [9823044] Order #: [id number]: 1 HE[facility] [] Order #: [id number] CONSULT TO ANESTHESIOLOGY [9001] Order #: [id number]: 1 REFER FOR ADMIT INTERVIEW [] Order #: [id number] YAZ PT ED ORTHOPEDIC [] Order #: [id number]: 1 YAZ WHAT TO EXPECT DURING YOUR HOSPITAL STAY [] Order #: [id number]: 1 UA CHEMSTRIP ONLY [SQUA] Order #: [id number] FUTURE XR HIP GENERAL 3V PELV/AP/LAT LT [7550795] Order #: [id number] FUTURE XR HIP GENERAL 3V PELV/AP/LAT LT [9263963] Order #: [id number] FUTURE VITAMIN D 25 HYDROXY [SQVITD] Order #: [id number] FUTURE YAZ PT ED ORTHOPEDIC [] Order #: [id number]. #:[id number]: 1 Prescriptions as of 03/08/2018 Sig: AMLODIPINE [...] EXTRACT ORAL Take by mouth once daily. KDQUKPC-RFVRNDLYN-KLLY ORAL Take by mouth once daily. HYDROXYCHLOROQUINE [...] 03/08/18 HOSP Observed: 03/08/2018 Status: COMPLETED Source: [place] 12:00 AM [facility] [place] REPOSITORY Patient:Rosa Blackwood MRN: <[id number]> Height:5' 3(1.6 m) Weight:175 lb (79.379 kg) [...] diclofenac sodium (VOLTAREN) 1 % topical gel RQMUCCO-JYEUQALAM-LOCE ORAL UBIDECARENONE (CO Q-10 ORAL) HYDROCODONE/ACETAMINOPHEN (NORCO ORAL) ibuprofen (MOTRIN) 400 mg tablet LOSARTAN POTASSIUM (LOSARTAN ORAL) PREGABALIN (LYRICA ORAL) OMEPRAZOLE (PRILOSEC ORAL) PROGESTERONE MISC ZOLPIDEM TARTRATE (AMBIEN ORAL) Admission/Clinic Administered Medications as of 03/16/18: lactated ringers infusion vancomycin iv piggyback 1 g in D5W 200 mL (VANCOCIN) Problem List: Current chronic use of systemic steroids [Z79.52] Rheumatoid arthritis involving multiple sites (HCC) [M06.9] Obesity, Class I, BMI 30-34.9 [E66.9] Osteonecrosis of left hip (HCC) [M87.9] Fibromyalgia [M79.7] Vitamin D deficiency [E55.9] OA (osteoarthritis) of hip [M16.9] ILD (interstitial lung disease) (HCC) [J84.9] Allergies: Ampicillin Ciprofloxacin Clindamycin Date Verified: 03/16/18 Lab Values Lab Value Units Date High Low POTA* 4.1 mmol/L 03/08/2018 5.1 3.7 RHODA* 40.9 % 03/08/2018 46.0 36.0 Progress Notes ([facility]): Ambreen Contreras, RN, RN 03/15/2018 [...] BMI 31.02 kg/(m2) Vital signs completed by: REX Weight acquired: per HANDP. Height acquired: per [...] Patch as directed as needed. Disp: Rfl: ODDAJHF-LLZDNIDRL-BCZW ORAL Take by mouth once daily. Disp: [...] fevers. 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 No neurological symptoms or problems. Respiratory: ILD prednisone and imuran Cardiovascular: Hypertension requiring meds GI: GERD : No history of UTI in past 6 weeks. No history of renal failure. Not currently on or requiring dialysis. No history of symptoms or problems. 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 at [phone] or [phone], [phone]. Signature: Edgar Olson MD Date: March 12, 2018 TISSUE BIOPSY Observed: 02/19/2018 Status: F Source: [place] 12:00 AM [facility] REPOSITORY Patient: ROSA BLACKWOOD : 1960 (57/F) Acct Num: [id number] Phys: Jose L Torres DDS Unit Num: [id number] Loc: LABSPEC Specimen: [id number] Received: 02/19/18 1513 Spec Type: Tissue Bx TISSUES 1 [...] of embedding. / JANES:tammy 02/19/18 TC:5 CPT: 45024 HEADER OPERATION: Biopsy cheek/lip PRE-OP DIAGNOSIS: Probable fibroma TISSUE SUBMITTED: Biopsy cheek/lip MICROSCOPIC DESCRIPTION Slides are reviewed. MICROSCOPIC DIAGNOSIS Cheek/lip, biopsy: Squamous mucosa with subepithelial fibrosis, consistent with irritation fibroma. SJ:tammy 02/22/18 Signed Jarrod Holland 02/22/18 <signature on file> Performed By: #### PTISS #### [facility] [place], [address] CNPN Observed: 02/15/2018 Status: COMPLETED Source: [place] 12:00 AM [facility] REPOSITORY Telephone (SPNSMN) ROSA BLACKWOOD ([id number]) 1960 F Date Time Provider Department 02/15/18 CARLOS SHIPMAN SPNSMN During your visit today, we recorded the following information about you: Lindsay Spearston [facility] 02/15/2018 3:23 PM Signed Pt calls requesting MRI results and atx Plan Pls call Patient calling for MRI lumbar results. Patient informed that it can take 7 business days to review and that someone from the surgical team will call with results once reviewed. Edith Vance [facility] 02/17/2018 4:52 PM Signed Pt called again. She is having a lot of pain from her hip and she would like a response soon . Gopal Nixon RN 02/19/2018 8:31 AM Signed This encounter has been routed to PA for image review Minal Doty PA-C 02/19/2018 [...] laterality (HCC) [M87.059] Order(s):CONSULT TO ORTHOPAEDIC SURGERY [785455] Order #: [id number]: 1 Prescriptions as of 02/15/2018 Sig: AMLODIPINE [...] EXTRACT ORAL Take by mouth once daily. BARCGHG-OSTTWQYDQ-YKNQ ORAL Take by mouth once daily. HYDROXYCHLOROQUINE [...] EXT JOINT Observed: 02/10/2018 Status: F Source: [place] ONLY W/WO CONT 10:08 AM [facility] REPOSITORY [facility] Imaging Services [address] [place] [address] Lower Ext Joint Only W/WO Cont MR#: [id number] Acct: [id number] Name: ROSA BLACKWOOD Rep #: [id number] : 1960 F 57 From: Kadie Dailey MD PCP: Valeriano Munoz MD Status: REG CLI Study: Lower Ext Joint Only W/WO Cont Date of Exam: 02/10/18 Exam# [id number] Ordering Dr: CARLOS SHIPMAN M.D. 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: Signed MR OUTSIDE CD DICOM Observed: 02/10/2018 Status: F Source: [place] IMPORT -NBNR 12:00 AM [facility] REPOSITORY Images were obtained outside of [facility] [id number] PROGRESS Observed: 02/08/2018 Status: COMPLETED Source: [place] 6:01 PM [facility] OTHER CAMPUS REPOSITORY HNO ID: [id number] Author: Stepan Ying Service: (none) Author Type: Physician Type: Progress Notes Filed: 02/08/2018 6:04 PM Note Text: Rosa Blackwood is a 57 year old White female who presents with complaints of having reflux. She actually has a fair amount of interstitial lung disease. She is actually on [place] being evaluated esophagram was performed which revealed [...] Apply to affected area four times daily. FWIINXK-TNRMTLGPD-ICAE ORAL Take by mouth once daily. UBIDECARENONE [...] Daniel CNOV Observed: 02/08/2018 Status: COMPLETED Source: [place] 1:30 PM CLINIC OTHER CAMPUS REPOSITORY Office Visit ([facility]) ROSA BLACKWOOD ([id number]) 1960 F Date Time Provider Department 02/08/18 1:30 PM STEPAN YING [facility] During your visit today, we recorded the [...] interstitial lung disease. She is actually on [place] being evaluated esophagram was performed which revealed [...] Apply to affected area four times daily. TUIPDPE-HCDXNSKCF-BPKL ORAL Take by mouth once daily. UBIDECARENONE [...] Ying M.D., F.A.C.S. Referring Provider: VALERIANO MUNOZ [[id number]] Allergies As of Date: 02/08/2018 Noted Allergy [...] presence (HCC) [M06.9] Order(s):MANOMETRY ESOPHAGEAL FUNCTION W/IMPEDANCE [[id number]] Order #: [id number] Prescriptions as of 02/08/2018 Sig: AMLODIPINE 5 [...] GEL Apply to affected area four t* SGFYUPZ-JDKRWBIOG-JHAK ORAL Take by mouth once daily. CO [...] 02/08/18 PROGRESS Observed: 01/29/2018 Status: COMPLETED Source: [place] 1:15 PM [facility] [place] REPOSITORY HNO ID: [id number] Author: Luis Choudhary) Marisabel Service: (none) Author Type: Physician Router Machine Operator Type: Progress Notes Filed: 01/29/2018 1:16 PM Note Text: Records and images reviewed Cervical stenosis gabrielle next available or BUFFY (marisabel) for sooner appointment Luis Petit PA-C CHEST WITHOUT Observed: 01/28/2018 Status: F Source: H[place] CONTRAST 1:31 PM [facility] REPOSITORY [facility] Imaging Services [address] [place] [address] Chest without Contrast MR#: [id number] Acct: [id number] Name: ROSA BLACKWOOD Rep #: [id number] : 1960 F 57 From: Vazquez Kaye MD PCP: Valeriano Munoz MD Status: REG CLI Study: Chest without Contrast Date of Exam: 01/28/18 Exam# [id number] Ordering Dr: Pelon Chatterjee MD STUDY: CT [...] CC: Valeriano Munoz MD; Pelon Chatterjee MD 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: Signed XR HIP 3V PELV+ Observed: 01/26/2018 Status: F Source: [place] AP/LAT LT 11:23 AM [facility] [place] REPOSITORY * * *Final Report* * * [...] the left hip joint space with near qssw-tj-buil contact. Maintained right hip joint. Sacroiliac joints and pubic symphysis appear maintained. No acute fracture or dislocation. There are no bony erosions. IMPRESSION: Severe left hip degenerative change. 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: PSCB Transcribe Date/Time: Jan 26 2018 1:04P Dictated by : GUNNER WILHELM MD This examination was interpreted and the report reviewed and electronically signed by: GUNNER WILHELM MD on Jan 26 2018 1:07PM EST [id number] PROGRESS Observed: 01/26/2018 Status: COMPLETED Source: [place] 11:18 AM [facility] REPOSITORY HNO ID: [id number] Author: Carmelita Carmona Service: (none) Author Type: [...] AM PROGRESS Observed: 01/26/2018 Status: COMPLETED Source: [place] 11:00 AM [facility] REPOSITORY HNO ID: [id number] Author: Carlos Shipman Service: (none) Author Type: [...] EXTRACT ORAL) Take by mouth once daily. LDKJFEW-NILBIRRQR-AVWI ORAL Take by mouth once daily. UBIDECARENONE [...] Shipman MD PATIENT NAME: Rosa Blackwood PAGER: JESSICA Observed: 01/26/2018 Status: COMPLETED Source: [place] 8:40 AM [facility] REPOSITORY Office Visit (SPNSMN) ROSA BLACKWOOD ([id number]) 1960 F Date Time Provider Department 01/26/18 8:40 AM KRISHNANEY, CARLOS A SPNSMN During your visit today, we recorded [...] EXTRACT ORAL) Take by mouth once daily. RNJTYMZ-DINSPNIWT-OSNI ORAL Take by mouth once daily. UBIDECARENONE [...] [M47.816] Order(s):XR HIP GENERAL 3V PELV/AP/LAT LT [2210884] Order #: [id number]. #:[id number] MRI HIP WO/W IVCON LT [2587866] Order #: [id number] [] iv contrast (will be provided with [...] EachRfl: 0 XR SCOLIOSIS PA STAND/LAT 2V [8012001] Order #: [id number] FUTURE Prescriptions as of 01/26/2018 Sig: AMLODIPINE [...] EXTRACT ORAL Take by mouth once daily. PUGHAPE-IXCFSJQMY-KEOI ORAL Take by mouth once daily. CO [...] EMERGENCY DEPARTMENT Observed: 01/20/2018 Status: F Source: HIALEAH SUMMARY 2:35 AM [facility] REPOSITORY [facility] Medical Records Department [address] [place] [address] Emergency Department Summary 01/19/18 1534 MR#: [id number] Acct: [id number] Name: ROSA BLACKWOOD Rep #: [id number] : 1960 57 From: Gunner Mc MD [...] Lumbar radiculopathy This note was generated with Gogoyoko dictation software. It may contain incorrect words, [...] your Primary Care Provider. Call [facility] ([phone]) or report to the closest Emergency Room. Call 911 if necessary. 01/20/18 0235 <Electronically signed by Gunner Mc MD> Date Gunner Mc MD Cosigner Signature (If Indicated): Date CC: Valer[facility]oz MD [facility] Observed: 01/20/2018 Status: COMPLETED Source: [place] 12:00 AM [facility] REPOSITORY Telephone (SPNSMN) CHASTITYROSA Hancock ([id number]) 1960 F IPA Date Time Provider Department 01/20/18 CARLOS SHIPMAN During your visit today, we recorded the following information about you: AMERICA MCCLOUD RN, RN 01/20/2018 11:38 AM Signed Called to Beti in Dr Munoz's office. Left message for her to call back. Dr Sagrario Mccloud from [facility] has also contacted Dr Shipman [...] Diarrhea Date Reviewed: 02/25/2016 Reviewed by: Lucia (Mary) MARY Azul - Fully Assessed Reason for Visit: [...] SPINE LUMBAR Observed: 01/19/2018 Status: F Source: HIALEAH (ROUTINE) 3:32 PM [facility] REPOSITORY [facility] Imaging Services [address] [place] [address] Spine Lumbar (Routine) MR#: [id number] Acct: [id number] Name: ROSA BLACKWOOD Rep #: [id number] : 1960 F 57 From: Nabeel Bernabe MD PCP: Valeriano Munoz MD Status: REG ER Study: Spine Lumbar (Routine) Date of Exam: 01/19/18 Exam# [id number] Ordering Dr: Gunner Mc MD STUDY: MRI [...] , CC: Valeriano Munoz MD; Gunner Mc 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: Signed PROGRESS Observed: 01/19/2018 Status: COMPLETED Source: [place] 3:17 PM [facility] [place] REPOSITORY HNO ID: [id number] Author: Magdalena Nguyen Service: (none) Author Type: (none) Type: Progress Notes Filed: 01/29/2018 1:16 PM Note Text: Imaging reports scanned Patient name: Rosa Blackwood Are you being referred by a [place] for Spine Health Provider or Pain Management Provider at [facility]? No If no, who is the Referring Provider: Dr Valeriano Munoz MRI/CT/myelogram within 12 months: Yes Imaging viewable in Epic: No If no, please instruct pt to provide most recent spine imaging in on CD with report for review during triage Requested provider: Dr. Sheldon 1. Are you having pain in any [...] report. Please call Beti from doctors office [phone] to schedule patient. MR-SPINE LUMBAR Observed: 01/19/2018 Status: F Source: [place] ([facility] 12:00 AM [facility] REPOSITORY Images were obtained outside of [facility] [id number] LOWER EXT/NO JT/W/O Observed: 12/10/2017 Status: F Source: HIALEAH 3:37 PM [facility] REPOSITORY [facility] Imaging Services [address] [place] [address]148 Lower Ext/No Jt/w/o MR#: [id number] Acct: [id number] Name: ROSA BLACKWOOD Rep #: [id number] : 1960 F 56 From: Julio Cannon MD PCP: Valeriano Munoz MD Status: REG CLI Study: Lower Ext/No Jt/w/o Date of Exam: 12/10/17 Exam# [id number] Ordering Dr: Nabeel Danielle DPM STUDY: MRI [...] of the first metatarsal, series 4 images 6/ through 01/29. There is marrow edema of [...] CC: Valeriano Munoz MD; Nabeel Danielle DPM 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: Signed CBC-COMPLETE BLOOD CNT Collected: 12/09/2017 Status: F Source: DANNIELLE NO DIFF 4:42 PM [facility] HOSPITAL REPOSITORY TYPE CODE TESTS RESULT OUT [...] 9.7 Performed By: #### L100.0500, L100.4500 #### [facility] [address] [place], [place], [id number] DIFFERENTIAL COMMENT Collected: 12/09/2017 Status: F Source: DANNIELLE 4:42 PM [facility] REPOSITORY TYPE CODE TESTS RESULT OUT OF RANGE REFERENCE UNITS LAB L100.4500 Normal SMEAR COMMENT SCANNED Result Comment: 1+ ANISOCYTOSIS Performed By: #### L100.0500, L100.4500 #### [facility] [address] [place], [place], [id number] LIVER PROFILE Collected: 12/09/2017 Status: F Source: DANNIELLE 4:42 PM [facility] REPOSITORY Order Comment: Comments: VROM TYPE CODE [...] BILI 0.14 Performed By: #### L500.3400 #### [facility] [address] [place], [address] THYROID UPTAKE Observed: 11/18/2017 Status: F Source: HIALEAH SINGLE OR MULT 10:20 AM [facility] REPOSITORY [facility] Imaging Services [address] [place] [address] Thyroid Uptake Single or Mult MR#: [id number] Acct: [id number] Name: ROSA BLACKWOOD Rep #: [id number] : 1960 F 56 From: Asif Pagan DO PCP: Valeriano Munoz MD Status: REG CLI Study: Thyroid Uptake Single or Mult Date of Exam: 11/18/17 Exam# [id number] Ordering Dr: Valeriano Munoz MD CLINICAL: 56-year-old [...] secondary to the presence of visualized thyroid pxzjgbo-B-jpkmba thyroid gland. 3. No hypofunctioning, cold nodules are identified. Electronically Signed: Asif Pagan DO at 22:10 EDT Tel , Service support , CC: Valeriano Munoz MD 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: Signed SPINE CERVICAL Observed: 11/16/2017 Status: F Source: HIALEAH (ROUTINE) 5:14 PM [facility] REPOSITORY [facility] Imaging Services [address] [place] [address] Spine Cervical (Routine) MR#: [id number] Acct: [id number] Name: ROSA BLACKWOOD Rep #: [id number] : 1960 F 56 From: Andrew Duran DO PCP: Valeriano Munoz MD Status: REG CLI Study: Spine Cervical (Routine) Date of Exam: 11/16/17 Exam# [id number] Ordering Dr: More Taylor MD STUDY: MRI [...] CC: More Taylor MD; Valeriano Munoz MD 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: Signed MR-SPINE CERVICAL Observed: 11/16/2017 Status: F Source: [place] (ROUTINE) IMPORT 12:00 AM [facility] REPOSITORY Images were obtained outside of [facility] [id number] PELVIS 1 OR 2 VIEWS Observed: 11/03/2017 Status: F Source: HIALEAH 3:28 PM [facility] REPOSITORY [facility] Imaging Services [address] [place] [address] Pelvis 1 or 2 Views MR#: [id number] Acct: [id number] Name: ROSA BLACKWOOD Rep #: [id number] : 1960 F 56 From: Vale Godoy MD PCP: Valeriano Munoz MD Status: REG CLI Study: Pelvis 1 or 2 Views Date of Exam: 11/03/17 Exam# [id number] Ordering Dr: Valeriano Munoz MD STUDY: X-RAY [...] Service support , CC: Valeriano Munoz MD 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: Signed CBC-COMPLETE BLOOD CNT Collected: 10/22/2017 Status: F Source: DANNIEL[place] NO DIFF 4:21 PM [facility] REPOSITORY TYPE CODE TESTS RESULT OUT OF [...] MPV 10.2 Performed By: #### L100.0500 #### [facility] [address] [place], [place], [id number] LIVER PROFILE Collected: 10/22/2017 Status: F Source: H[place] 4:21 PM [facility] REPOSITORY TYPE CODE TESTS RESULT OUT OF [...] BILI 0.14 Performed By: #### L500.3400 #### [facility] [address] [place] [address], [id number] LIVER PROFILE Collected: 09/10/2017 Status: F Source: H[place]EAH 4:54 PM [facility] REPOSITORY TYPE CODE TESTS RESULT OUT OF [...] BILI 0.09 Performed By: #### L500.3400 #### [facility] [address] [place], [address] CBC-COMPLETE BLOOD CNT Collected: 09/10/2017 Status: F Source: DANNIELLE NO DIFF 4:54 PM [facility] REPOSITORY TYPE CODE TESTS RESULT OUT OF [...] MPV 10.3 Performed By: #### L100.0500 #### [facility] [address] [place], [address] ORB SELLA POST Observed: 08/27/2017 Status: F Source: DANNIELLE FOSSA EAR W/O 3:59 PM [facility] REPOSITORY [facility] Imaging Services [address] [place] [address] Orb Sella Post Fossa Ear w/o MR#: [id number] Acct: [id number] Name: ROSA BLACKWOOD Rep #: [id number] : 1960 F 56 From: Nir Dudley MD PCP: Valeriano Munoz MD Status: REG CLI Study: Orb Sella Post Fossa Ear w/o Date of Exam: 08/27/17 Exam# [id number] Ordering Dr: Dale Zuniga MD STUDY: CT [...] CC: Beni Zuniga MD; Valeriano Munoz MD 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: Signed ESTRADIOL Collected: 08/26/2017 Status: F Source: DANNIELLE 12:05 PM [facility] REPOSITORY TYPE CODE TESTS RESULT OUT OF [...] ESTRADIOL CONCENTRATION. Performed By: #### L3300.1750 #### [facility] [address] [place], [place], [address] PROGESTERONE LEVEL Collected: 08/26/2017 Status: F Source: DANNIELLE 12:05 PM [facility] REPOSITORY TYPE CODE TESTS RESULT OUT OF [...] -422.50 ng/mL Performed By: #### L509.4001 #### [facility] [address] [place], [address] PAP I-G W/RFX HRHPV Collected: 08/26/2017 Status: F Source: DANNIELLE 11:45 AM [facility] REPOSITORY Order Comment: CYTOLOGY INFORMATION: - CLINICAL INFORMATION: - DATE LMP/MENOPAUSE: MENOPAUSE - COLLECTION VIAL: Thin Prep Vial - CAMPGROUND MANAGER SOURCE: CERVICAL/ENDOCERVICAL - COLLECTION TECHNIQUE: BRUSH/SPATULA Specimen Comment: [id number] Specimen Comment: No. of containers..01 ThinPrep Vial TYPE CODE TESTS RESULT OUT OF RANGE REFERENCE UNITS LAB L7400.0800 . Normal DIAGN Comment Result Comment: NEGATIVE FOR INTRAEPITHELIAL LESION AND MALIGNANCY. LAB L7400.0900 . Normal ADEQ Comment Result Comment: Satisfactory for evaluation. No endocervical component is identified. LAB L7400.1400 . Normal PERFORM Comment Result Comment: Ning Perez, Airbrush Artist LAB L7400.2575 . Normal TEST METHOD Comment [...] no HPV testing was performed. Performed at: [facility] [address] [id number] Process Steward: Selene Munoz MD, Phone: [phone] Performed By: #### L7400.0350 #### [facility] (refer to report for specific site) refer to report for address and phone number LIVER PROFILE Collected: 08/12/2017 Status: F Source: DANNIELLE 3:13 PM [facility] REPOSITORY TYPE CODE TESTS RESULT OUT OF [...] BILI 0.07 Performed By: #### L500.3400 #### [facility] [address] [place], [place], [address] ERYTHROCYTE SED RATE Collected: 08/10/2017 Status: F Source: H[place] 1:59 PM [facility] REPOSITORY TYPE CODE TESTS RESULT OUT OF RANGE REFERENCE UNITS LAB L102.0000 0-30 mm/hr Normal SED RATE 15 Performed By: #### L101.9900, L100.0500 #### [facility] [address] [place], [place], [address] CBC-COMPLETE BLOOD CNT Collected: 08/10/2017 Status: F Source: DANNI[place]LE NO DIFF 1:59 PM [facility] REPOSITORY TYPE CODE TESTS RESULT OUT OF [...] 10.4 Performed By: #### L101.9900, L100.0500 #### [facility] [address] [place], [place], [address] CBC-COMPLETE BLOOD CNT Collected: 07/31/2017 Status: F Source: DANNI[place]LE NO DIFF 1:22 PM [facility] REPOSITORY TYPE CODE TESTS RESULT OUT OF [...] MPV 10.4 Performed By: #### L100.0500 #### [facility] [address] [place], [place], [address] LIVER PROFILE Collected: 07/31/2017 Status: F Source: DANNIELLE 1:22 PM [facility] REPOSITORY Order Comment: Comments: VROM TYPE CODE [...] BILI 0.12 Performed By: #### L500.3400 #### [facility] [address] [place], [place], [address] CBC-COMPLETE BLOOD CNT Collected: 07/16/2017 Status: F Source: DAN[place]LE NO DIFF 1:33 PM [facility] REPOSITORY TYPE CODE TESTS RESULT OUT OF [...] MPV 10.7 Performed By: #### L100.0500 #### [facility] [address] [facility] [address] [place], [place], [address] LIVER PROFILE Collected: 07/16/2017 Status: F Source: DANNIELLE 1:33 PM [facility] REPOSITORY TYPE CODE TESTS RESULT OUT OF [...] BILI 0.09 Performed By: #### L500.3400 #### [facility] [address] [place], [address] ALLERGIES ALLERGIES DATE TYPE / CODE NAME / CODE REACTION SEVERITY SOURCE 04/04/2018 Drug clindamycin/K374200 made me Unknown [place] Allergy/416 794(RXNORM) deathly sick Community 740188([facility] ED [facility]) Repository 04/04/2018 Drug clarithromycin/F006 Nausea/Vom/Pebbles Unknown [place] Allergy/416 524521(RXNORM) [facility] 159853([facility] ED [facility]) Repository 07/01/2015 DRUG CIPROFLOXACIN DIARRHEA [facility] INGREDI/[address] [place] 873726(SNOM Repository ED CT) 07/01/2015 DRUG CLINDAMYCIN DIARRHEA [facility] INGREDI/[address] [place] 901374(SNOM Repository ED CT) 08/18/2006 DRUG AMPICILLIN UNKNOWN [facility] INGREDI/[address] [place] 240369(SNOM Repository ED CT) 08/18/2006 DRUG AMPICILLIN [facility] INGREDI/[address] [place] 115726(SNOM Repository ED CT) NG/99573918 AMPICILLIN [facility] Repository NG/58298527 CIPROFLOXACIN [facility] Repository NG/96761724 CLINDAMYCIN [facility]([employer] [facility] CT) Repository ENCOUNTERS ENCOUNTERS ADMIT/DISCHARGE ACCOUNT NUMBER ADMITTING ENCOUNTER LOCATION SOURCE CLASS 05/25/2018 [id number] Ambulatory [facility] ding:LAB Repository 05/17/2018 [id number] Ambulatory Building:[facility] [place] Practices Repository 05/10/2018/05/10/19 [id number] Ambulatory [address] [place] Repository 05/10/2018/05/11/19 [id number] Ambulatory [address] Repository 04/12/2018/04/12/20 [id number] Ambulatory [address] Repository 04/04/2018/04/04/20 [id number] Emergency [address] ding:ED Repository 03/18/2018/03/18/20 [id number] Ambulatory [address] [place] Repository 03/16/2018/03/18/20 [id number] [facility] Inpatient [address] [place] Repository 03/12/2018/03/12/20 [id number] Ambulatory [address] [place] Repository 03/12/2018/03/12/20 [id number] Ambulatory [address] [place] Repository 03/12/2018/03/12/20 [id number] Ambulatory [address] [place] Repository 03/12/2018/03/15/20 [id number] Ambulatory [address] [place] Repository 03/12/2018/03/12/20 [id number] Ambulatory [address] [place] Repository 03/08/2018/03/08/20 [id number] Ambulatory [address] [place] Repository 03/08/2018/03/08/20 [id number] Ambulatory [address] [place] Repository 03/08/2018/03/09/20 [id number] Ambulatory [address] [place] Repository 02/19/2018 [id number] Ambulatory [facility] ding:LABSPEC Repository 02/10/2018 [id number] Ambulatory [facility] ding:MRI Repository 02/08/2018/02/09/20 [id number] Ambulatory [address] Other [place] Repository 02/08/2018/02/09/20 [id number] Ambulatory [address] MEDICAL Repository CENTERBuildi ng:AGGHBC 01/28/2018 [id number] Ambulatory [facility] ding:CT Repository 01/26/2018/01/27/20 [id number] Ambulatory [address] [place] Repository 01/26/2018/02/09/20 [id number] Ambulatory [address] [place] Repository 01/19/2018/01/20/20 [id number] Emergency [address] ding:ED Repository 12/28/[id number] [facility] MEDICAL Repository CENTERBuildi ng:AGGHBC 12/10/2017 [id number] Ambulatory [facility] ding:MRI Repository 12/09/2017 [id number] [facility] ding:MTLAB Repository 11/18/2017 [id number] Ambulatory [facility] ding:NM Repository 11/16/2017 [id number] Ambulatory [facility] ding:MRI Repository 11/03/2017 [id number] [facility] ding:HPRAD Repository 10/22/2017 [id number] [facility] ding:MTLAB Repository 09/10/2017 [id number] [facility] ding:MTLAB Repository 08/27/2017 [id number] Ambulatory [facility] ding:CT Repository 08/26/2017 [id number] [facility] ding:LABSPEC Repository 08/12/2017 [id number] [facility] ding:MTLAB Repository 08/10/2017 [id number] [facility] ding:LAB.FUT Repository URE 08/03/2017 [id number] [facility] ding:MTLAB Repository 07/31/2017/08/01/[id number] ding:MTLAB Repository PAYERS PAYERS ENCOUNTER GUARANTOR PAYER SUBSCRIBER SOURCE 05/25/2018 SAGRARIO [id number] Primary ROSA L [place] Sean SCHNEIDER Insurance:MEDICARE SIMODOB: [facility] PART A [facility] [id number] Number: Repository [address]Tod: 330 [id number] [phone] () Date:2018-05-25 05/25/2018 Secondary NOT GIVENUNK [place] Insurance:SELF PAY [facility] Number: Effective Repository Date:2018-05-25 05/17/2018 ROSA L Primary ROSA L [place] Practices SIMODOB: Insurance:MedicarePol SIMODOB: Repository [id number] icy Number: [id number] [place] [address] [id number] 1 [facility] Date:3736-21-60Cijy [place], [place] Name:[facility] 1966[address]Dnj: [phone], [place] [phone] 68285WP: [phone]: [phone] ([phone] () 05/17/2018 Secondary Sagrario SimoDOB: [place]IP Practices Insurance:AultcarePol [id number] Repository icy Number: [facility] [id number] [place] Date:5238-91-51Wste Western Name:[place], [place] [address] [place] [address]Tyg: [phone]: ([phone] 04/04/2018 SAGRARIO [id number] Primary ROSA Estrada [place] Insurance:MEDICARE SIMODOB: [facility] PART A olicy [id number] Number: Repository [address]Eld: (022) [id number] [phone] () Date:2018-04-04 04/04/2018 Secondary SAGRARIO R SIMODOB: [place] Insurance:AULTCAREPol [id number] [facility] icy Number: Hospital [id number] Repository Date:3559-72-20[address] [address]JL: 04/04/2018 Tertiary NOT GIVENUNK [place] Insurance:SELF PAY [facility] Number: Effective Repository Date:2018-04-04 02/19/2018 SAGRARIO R [id number] Primary SAGRARIO R SIMODOB: [facility] Insurance:AULTCAREPol [id number] [facility] Medical Center icy Number: [place], [place] [id number] Repository [address]Jli: (098) Date:9323-94-06KS [phone] (HP) [address] [place] [phone]: 02/19/2018 Secondary NOT GIVENUNK [place] Insurance:SELF PAY [facility] Number: Effective Repository Date:2018-02-19 02/10/2018 SAGRARIO Hector [id number] Primary SAGRARIO R SIMODOB: [place] E SMITHREJI Insurance:AULTCAREPol [id number] Memorial Medical Center icy Number: [place], [place] [id number] Repository [address]Iui: (222) Date:8891-27-09DH [phone] () [address], [place] [address]LB: 02/10/2018 Secondary NOT GIVENUNK [place] Insurance:SELF PAY [facility] Number: Effective Repository Date:2018-01-26 02/08/2018 ROSA Sequeira Primary SAGRARIO Young SIMODOB: [facility] SIMODOB: Insurance:AULTCAREPol [id number]08-16264[facility] icy Number: [facility] [id number] [place], Date: [facility]60952Tkk: () 01/28/2018 SAGRARIO R [id number] Primary SAGRARIO R SIMODOB: [place] E WYATT Insurance:AULTCAREPol [id number] Memorial Medical Center ic Number: [facility] [place] [id number] Repository [address]Kae: (330) Date:2075-64-81QS [phone] () [address], [place] [address]JX: 01/28/2018 Secondary NOT GIVENUNK [place] Insurance:SELF PAY [facility] Number: Effective Repository Date:2017-10-26 01/19/2018 SAGRARIO R [id number] Primary SAGRARIO R SIMODOB: [place] E WYATT Insurance:AULTCAREPol [id number] Memorial Medical Center icy Number: [place], [place] [id number] Repository [address]Ush: (208) Date:4895-05-24TH [phone] () [address], [place] [address]BK: 01/19/2018 Secondary NOT GIVENUNK [place] Insurance:SELF PAY [facility] Number: Effective Repository Date:2018-01-19 12/28/2017 ROSA Sequeira Primary SAGRARIO R SIMODOB: [facility] SIMODOB: Insurance:AULTCAREPol [id number] [id number] E icy Number: [facility]ository [facility] [id number] [place] Date: [address]Ses: () 12/10/2017 SAGRARIO [id number] Primary SAGRARIO R SIMODOB: [place] E SMITHREJI Insurance:AULTCAREPol [id number] Number: [place], [place] [id number] Repository [address]Nxl: (330) Date:4344-95-70VP [phone] () [address] [place] [address]NP: 12/10/2017 Secondary NOT GIVENUNK [place] Insurance:SELF PAY [facility] Number: Effective Repository Date:2017-12-02 12/09/2017 Sagrario [id number] Primary Sagrario R SimoDOB: [place] E [place] Insurance:AULTCAREPol [id number] J. [facility] ic Number: [place], [place] [id number] Repository [address]Eeb: (330) Date:1318-80-41VP [phone] () [address], [place] [address]UP: 12/09/2017 Secondary NOT GIVENUNK [place] Insurance:SELF PAY [facility] Number: Effective Repository Date:2017-12-09 11/18/2017 Sagrario [id number] Primary Sagrario R SimoDOB: [place] E [place] Insurance:AULTCAREPol [id number] Valley [facility] Number: [place], [place] [id number] Repository [address]Oap: ([phone]) Date:2327-09-93CJ [phone] () [address], [place] [address]JC: 11/18/2017 Secondary NOT GIVENUNK [place] Insurance:SELF PAY [facility] INSURANCEPolicy Hospital Number: Effective Repository Date:2017-11-16 11/16/2017 Sagrario [id number] Primary Sagrario Young SimoDOB: [place] E [place] Insurance:AULTCAREPol [id number] [facility] Number: [facility] [id number] Repository [address]Fpu: (330) Date:7996-46-26QG [phone] () [address], [place] [address]EG: 11/16/2017 Secondary NOT GIVENUNK [place] Insurance:SELF PAY [facility] Number: Effective Repository Date:2017-11-10 11/03/2017 Sagrario [id number] Primary Sagrario Young SimoDOB: [place] E [place] Insurance:AULTCAREPol [id number] Valley Health Medical Center Number: [place], [place] [id number] Repository [address]Zgf: ([phone]) Date:9106-34-12VG [phone] () [address], [place] [address]IX: 11/03/2017 Secondary NOT GIVENUNK [place] Insurance:[facility]LF [facility] Effective Repository Date:2017-11-03 10/22/2017 Sagrario [id number] Primary Sagrario Young SimoDOB: [place] [address] [place] Insurance:[employer]AREPol [id number] Number: [place], [place] [id number] Repository [address]Wsx: ([phone]) Date:5895-63-03QA [phone] () [address], [place] [address]EZ: 10/22/2017 Secondary NOT GIVENUNK Dann[place] Insurance:SELF PAY Community [facility] Number: Effective Repository Date:2017-10-22 09/10/2017 Sagrario [id number] Primary Sagrario Young SimoDOB: [place] Insurance:[employer] [id number] [facility]ly [facility] Number: [place], [place] [id number] Repository [address]Iub: ([phone]) Date:7404-88-25ZE [phone] () [address], [place] [address]LW: 09/10/2017 Secondary NOT GIVENUNK Dannielle Insurance:SELF PAY [facility] Number: Effective Repository Date:2017-09-10 08/27/2017 Sagrario [id number] Primary Sagrario Young SimoDOB: [place] Insurance:[employer] [id number] [facility] Number: [place], [place] [id number] Repository [address]Yfg: ([phone]) Date:0442-36-54IL [phone] (HP) [address], [place] [address]OZ: 08/27/2017 Secondary NOT GIVENUNK Dannielle Insurance:SELF [facility]Y [facility] Number: Effective Repository Date:2017-08-19 08/26/2017 Sagrario [id number] Primary Sagrario Young SimoDOB: [place] Insurance:[employer] [id number] Number: [place], [place] [id number] Repository [address]Crm: ([phone]) Date:4794-08-51XU [phone] () [address], [place] [address]XH: 08/26/2017 Secondary NOT GIVENUNK [place] Insurance:SELF PAY Community [facility] Number: Effective Repository Date:2017-08-26 08/12/2017 Sagrario [id number] Primary Sagrario R SimoDOB: [place] Insurance:[employer] [id number] [facility]ly [facility] Number: [place], [place] [id number] Repository [address]Gpu: ([phone]) Date:7498-00-25PA [phone] () [address], [place] [address]NZ: 08/12/2017 Secondary NOT GIVENUNK [place] Insurance:SELF PAY Community [facility] Number: Effective Repository Date:2017-08-12 08/10/2017 Sagrario [id number] Primary Sagrario R SimoDOB: [place] Insurance:[employer] [id number] Number: [place], [place] [id number] Repository [address]Xbv: ([phone]) Date:3426-42-20YF [phone] () [address], [place] [address]IC: 08/10/2017 Secondary NOT GIVENUNK [place] Insurance:[facility]LF [facility]Y [facility] Number: Effective Repository Date:2017-03-31 08/03/2017 Sagrario [id number] Primary Sagrario R SimoDOB: [place] Insurance:[place] [id number] [facility] icy Number: [place], [place] [id number] Repository [address]Ehz: ([phone]) Date:6188-66-48AO [phone] () [address], [place] [address]FI: 08/03/2017 Secondary NOT GIVENUNK Dannielle Insurance:SELF [facility]Y [facility] Number: Effective Repository Date:2017-08-03 07/31/2017 Sagrario [id number] Primary Sagrario R SimoDOB: D[place]ielle E [place] Insurance:[employer]ARE[place] [id number] Valley Health Medical Center [facility] [place] [id number] Repository [address]Bvi: ([phone]) Date:9259-44-71ZQ [phone] () [address], [place] [address]CC: 07/31/2017 Secondary NOT GIVENUNK Dann[place] Insurance:SELF PAY [facility] Number: Effective Repository Date:2017-07-16
== END ==
PROVIDERS: Family Provider Internal Medicine; PCP Internal Medicine; Referring Provider Anesthesiology Pain Medicine; Visit Provider Anesthesiology Pain Medicine
DX: F11.20 Opioid dependence, uncomplicated (principal)
CPT/HCPCS: 80307

== ENCOUNTER → 2019-01-13 12:34 | Outpatient (CLI) | payer MEDICARE, SELFPAY ==
[2018-04-04 18:57] VITALS: BMI 32.7
[2019-01-13 14:35] LABS: Hematocrit 39.7 % (37-47); Hemoglobin 12.6 g/dL (12.0-15.0); Mean Corp Hgb Conc 31.7 g/dL (32-36); Mean Corpuscular Volume 94.5 fL (81-99); Mean Platelet Vol. 10.5 fl (6.2-12.0); Platelet Count 339 K/mm3 (150-450); RBC Distribution Width SD 58.5 fl (35.1-43.9); White Blood Count 5.2 K/mm3 (4.4-11.0)
[2019-01-13 15:01] LABS: AST(SGOT) 25 U/L (15-37); Alanine Aminotransfer ALT/SGPT 36 U/L (13-56); Albumin, Serum 3.6 g/dL (3.2-5.0); Alkaline Phosphatase 64 U/L (45-117); Anion Gap 6 (5-15); BUN 12 mg/dL (7-18); Bilirubin, Direct 0.08 mg/dL (0.00-0.30); Chloride 108 mmol/L (98-107); Creatinine, Serum 0.72 mg/dL (0.55-1.02); EST Glomerular Filtration Rate 89 mL/min (>60); Est Glom Filt Rate - Afr Amer 108 mL/min (>60); Globulin 3.5 g/dL (2.2-4.2); Potassium 4.1 mmol/L (3.5-5.1); Protein, Total 7.1 g/dL (6.4-8.2); Sodium Level 141 mmol/L (136-145)
== END ==
PROVIDERS: Family Provider Internal Medicine; PCP Internal Medicine; Referring Provider Internal Medicine Pulmonary Disease; Visit Provider Internal Medicine Pulmonary Disease
DX: J84.116 Cryptogenic organizing pneumonia (principal); M06.9 Rheumatoid arthritis, unspecified
CPT/HCPCS: 36415; 80051; 80076; 82565; 84520; 85027

== ENCOUNTER → 2019-02-08 13:39 | Outpatient (CLI) | payer MEDICARE, SELFPAY ==
[2018-04-04 18:57] VITALS: BMI 32.7
--- NOTE | 2019-02-08 13:51 | CT_ITS ---
STUDY: CT CHEST WITHOUT CONTRAST REASON FOR EXAM: Female, 58 years old. Lung nodule interstitial lung disease RADIATION DOSAGE (If Supplied By Facility): CTDIvol = ( 12.76 ) mGy, DLP = ( 420.93 ) mGycm TECHNIQUE: Transaxial imaging was performed without the administration of intravenous contrast material. Multiplanar coronal and sagittal images were reformatted. Individualized dose optimization techniques were used for this CT. COMPARISON: CT chest January 21, 2017, CT chest January 28, 2018 FINDINGS: There is smudgy nodular densities within the right apex. There is focal calcific scarring demonstrated in the right minor fissure. There is a well-circumscribed nodule within the right middle lobe measuring 3.7 mm. There is focal linear scarring along the periphery of the major fissure on the right. There is a pattern of peripheral smudgy nodular densities in the left lower lobe and in the periphery. There is no demonstrated pleural abnormality. Is borderline cardiac enlargement. Normal mediastinum. Normal hilar regions. Normal unenhanced pulmonary arteries. Is tortuous minimally calcified. There are multi-level degenerative changes of the thoracic spine. This is most significant at the level of T10-T11 where there is retrolisthesis demonstrated with a left lateral disc osteophyte extending into the canal causing stenosis of the left neural foramen with mild to moderate central stenosis. This was demonstrated to some degree of January 28, 2018 but not seen on prior study January 21, 2017. This partially visualized atrophy of the right kidney. CT/Chest without Contrast IMPRESSION: Smudgy nodular infiltrates within the right apex and in the lung periphery is suspicious for atypical infiltrates and/or chronic infiltrates. These are greater on today's study than prior study January 28, 2018. Consider MAC, mycobacterium avium complex,. There is scarring in the right upper lobe. There is worsening degenerative change at the level of T11-T12 with severe stenosis of the left neural foramen and moderate central stenosis. Recommend correlation with trauma. Recommend consideration for follow-up MRI of the thoracic spine. Electronically Signed: Vale Walt, MD at 18:05 EDT Tel , Service support ,
== END ==
PROVIDERS: Family Provider Internal Medicine; PCP Internal Medicine; Referring Provider Internal Medicine Pulmonary Disease; Visit Provider Internal Medicine Pulmonary Disease
DX: R91.1 Solitary pulmonary nodule (principal)
CPT/HCPCS: 71250

== ENCOUNTER → 2019-12-05 15:41 | Outpatient (CLI) | payer MEDICARE, SELFPAY ==
[2018-04-04 18:57] VITALS: BMI 32.7
[2019-12-05 17:03] LABS: Amphetamine Urine VISTA NEGATIVE (<1000 ng/mL); Barbiturate Urine VISTA NEGATIVE (< 200 ng/mL); Benzodiazepine Urine VISTA NEGATIVE (< 200 ng/mL); Cocaine Urine VISTA NEGATIVE (< 300 ng/mL); Ecstacy Urine VISTA POSITIVE (< 500 ng/mL); Methadone Urine VISTA NEGATIVE (< 300 ng/mL); PCP Urine VISTA NEGATIVE (< 25 ng/mL); THC Urine VISTA NEGATIVE (< 50 ng/mL); Vista UDS pH Range 6
== END ==
PROVIDERS: PCP Internal Medicine; Referring Provider Anesthesiology Pain Medicine; Visit Provider Anesthesiology Pain Medicine
DX: F11.20 Opioid dependence, uncomplicated (principal)
CPT/HCPCS: 80307

== ENCOUNTER → 2020-04-20 15:25 | Outpatient (CLI) | payer MEDICARE, SELFPAY ==
[2018-04-04 18:57] VITALS: BMI 32.7
[2020-04-20 17:28] LABS: Hematocrit 42.3 % (37-47); Hemoglobin 13.7 g/dL (12.0-15.0); Mean Corp Hgb Conc 32.4 g/dL (32-36); Mean Corpuscular Volume 98.8 fL (81-99); Mean Platelet Vol. 10.7 fl (6.2-12.0); Platelet Count 337 K/mm3 (150-450); RBC Distribution Width CV 13.7 % (11.6-14.6); RBC Distribution Width SD 50.2 fl (35.1-43.9); Red Blood Count 4.28 M/mm3 (4.2-5.4); White Blood Count 5.4 K/mm3 (4.4-11.0)
[2020-04-20 17:51] LABS: AST(SGOT) 20 U/L (15-37); Alanine Aminotransfer ALT/SGPT 35 U/L (13-56); Albumin, Serum 3.8 g/dL (3.2-5.0); Alkaline Phosphatase 63 U/L (45-117); Anion Gap 5 (5-15); BUN 19 mg/dL (7-18); Bilirubin, Direct 0.15 mg/dL (0.00-0.30); Chloride 107 mmol/L (98-107); Creatinine, Serum 0.83 mg/dL (0.55-1.02); EST Glomerular Filtration Rate 76 mL/min (>60); Est Glom Filt Rate - Afr Amer 91 mL/min (>60); Globulin 3.2 g/dL (2.2-4.2); Potassium 3.8 mmol/L (3.5-5.1); Sodium Level 141 mmol/L (136-145)
== END ==
PROVIDERS: PCP Internal Medicine; Referring Provider Internal Medicine Pulmonary Disease; Visit Provider Internal Medicine Pulmonary Disease
DX: J84.116 Cryptogenic organizing pneumonia (principal)
CPT/HCPCS: 36415; 80051; 80076; 82565; 84520; 85027

== ENCOUNTER → 2020-08-23 14:37 | Outpatient (CLI) | payer MEDICARE, SELFPAY ==
[2018-04-04 18:57] VITALS: BMI 32.7
--- NOTE | 2020-08-23 14:41 | RAD_ITS ---
STUDY: X-RAY CHEST REASON FOR EXAM: Female, 59 years old. PNEUMONIA TECHNIQUE: PA and lateral views of the chest. COMPARISON: 05/25/2017 FINDINGS: The lungs are clear and expanded. There is no demonstrated pleural abnormality. Normal size heart. Normal mediastinum and richard. Normal visualized pulmonary arteries. Normal visualized aortic arch and descending thoracic aorta. There is a dextroscoliosis of the thoracic spine. Normal visualized ribs, clavicles, and shoulders. There is no demonstrated abnormality of the visualized soft tissue structures of the upper abdomen. RAD/Chest PA and Lateral IMPRESSION: No acute cardiopulmonary process. Stable exam. Electronically Signed: Emile Dowd MD (Brooks) at 8:31 EDT , Service support ,
== END ==
PROVIDERS: PCP Internal Medicine; Referring Provider Internal Medicine Pulmonary Disease; Visit Provider Internal Medicine Pulmonary Disease
DX: J84.116 Cryptogenic organizing pneumonia (principal)
CPT/HCPCS: 71046

== ENCOUNTER → 2020-11-07 13:59 | Outpatient (CLI) | payer MEDICARE, SELFPAY ==
[2018-04-04 18:57] VITALS: BMI 32.7
[2020-11-07 19:11] LABS: Amphetamine Urine VISTA NEGATIVE (<1000 ng/mL); Barbiturate Urine VISTA NEGATIVE (< 200 ng/mL); Benzodiazepine Urine VISTA NEGATIVE (< 200 ng/mL); Cocaine Urine VISTA NEGATIVE (< 300 ng/mL); Ecstacy Urine VISTA POSITIVE (< 500 ng/mL); Methadone Urine VISTA NEGATIVE (< 300 ng/mL); PCP Urine VISTA NEGATIVE (< 25 ng/mL); THC Urine VISTA NEGATIVE (< 50 ng/mL); Vista UDS pH Range 5
== END ==
PROVIDERS: PCP Internal Medicine; Referring Provider Anesthesiology Pain Medicine; Visit Provider Anesthesiology Pain Medicine
DX: F11.20 Opioid dependence, uncomplicated (principal)
CPT/HCPCS: 80307

== ENCOUNTER → 2020-12-07 15:34 | Outpatient (CLI) | payer MEDICARE, SELFPAY ==
[2018-04-04 18:57] VITALS: BMI 32.7
[2020-12-07 17:44] LABS: Hematocrit 40.7 % (37-47); Hemoglobin 13.3 g/dL (12.0-15.0); Mean Corp Hgb Conc 32.7 g/dL (32-36); Mean Corpuscular Volume 98.1 fL (81-99); Mean Platelet Vol. 10.8 fl (6.2-12.0); Platelet Count 295 K/mm3 (150-450); RBC Distribution Width CV 13.8 % (11.6-14.6); RBC Distribution Width SD 49.5 fl (35.1-43.9); Red Blood Count 4.15 M/mm3 (4.2-5.4); White Blood Count 5.8 K/mm3 (4.4-11.0)
[2020-12-07 18:11] LABS: AST(SGOT) 31 U/L (15-37); Alanine Aminotransfer ALT/SGPT 61 U/L (13-56); Albumin, Serum 3.7 g/dL (3.2-5.0); Alkaline Phosphatase 59 U/L (45-117); Anion Gap 7 (5-15); Bilirubin, Direct 0.11 mg/dL (0.00-0.30); Chloride 108 mmol/L (98-107); Globulin 3.1 g/dL (2.2-4.2); Potassium 4.3 mmol/L (3.5-5.1); Protein, Total 6.8 g/dL (6.4-8.2); Sodium Level 140 mmol/L (136-145)
== END ==
PROVIDERS: PCP Internal Medicine; Referring Provider Internal Medicine Pulmonary Disease; Visit Provider Internal Medicine Pulmonary Disease
DX: J84.116 Cryptogenic organizing pneumonia (principal); Z79.899 Other long term (current) drug therapy
CPT/HCPCS: 36415; 80051; 80076; 85027

== ENCOUNTER → 2021-01-22 12:03 | Outpatient (CLI) | payer MEDICARE, SELFPAY ==
[2018-04-04 18:57] VITALS: BMI 32.7
[2021-01-22 15:27] LABS: AST(SGOT) 31 U/L (15-37); Alanine Aminotransfer ALT/SGPT 68 U/L (13-56); Albumin, Serum 3.6 g/dL (3.2-5.0); Alkaline Phosphatase 54 U/L (45-117); Bilirubin, Direct 0.16 mg/dL (0.00-0.30); Globulin 3.3 g/dL (2.2-4.2); Protein, Total 6.9 g/dL (6.4-8.2)
== END ==
PROVIDERS: PCP Internal Medicine; Referring Provider Internal Medicine Pulmonary Disease; Visit Provider Internal Medicine Pulmonary Disease
DX: J84.116 Cryptogenic organizing pneumonia (principal); Z79.899 Other long term (current) drug therapy
CPT/HCPCS: 36415; 80076

== ENCOUNTER → 2021-09-09 | Outpatient (CLI) | payer MEDICARE, SELFPAY ==
--- NOTE | 2021-09-09 13:40 | CT_ITS ---
STUDY: CT CHEST WITHOUT CONTRAST REASON FOR EXAM: Female, 60 years old. SOLITARY PULMONARY NODULE. Former smoker. RADIATION DOSAGE (If Supplied By Facility): CTDIvol = ( 10.00 ) mGy, DLP = ( 310.29 ) mGycm TECHNIQUE: Transaxial imaging was performed without the administration of intravenous contrast material. Individualized dose optimization techniques were used for this CT. COMPARISON: Comparison is made with prior study 02/08/2019. FINDINGS: CHEST Stable focal linear scarring in the posterior medial aspect of the left upper lobe. There is a 1 cm x 1 cm heterogeneous nodule in the anterior aspect of the right upper lobe as seen on axial image #22. This was rarely visible on prior examination. Stable focal linear scarring in the posteriorly aspect of the right upper lobe adjacent to the right minor fissure. Stable tiny calcified granuloma in the right middle lobe as seen on axial image #41. Stable linear scarring in the right major fissure. Mild scarring in the posterior medial segment of the left lower lobe. There is no demonstrated pleural abnormality. Normal heart and pericardium. There are multiple small lymph nodes within the mediastinum, which are normal in size and morphology most compatible with reactive lymph hyperplasia. Normal hilar regions. Normal unenhanced pulmonary arteries. There is atherosclerotic calcification of the aortic arch , There are multi-level degenerative changes of the thoracic spine. Increased kyphosis. There is evidence of diffuse fatty infiltration of the liver. CT/Chest without Contrast IMPRESSION: New 1 cm x 1 cm heterogeneous nodule in the anterior aspect of the right upper lobe as seen on axial image #22. Correlation with a PET scan is recommended. The remainder of the examination is unchanged. Electronically Signed: Aguilar Joaquin MD at 14:36 EDT ,
== END | disposition home or self-care (01) ==
PROVIDERS: PCP Internal Medicine; Referring Provider Internal Medicine Pulmonary Disease; Visit Provider Internal Medicine Pulmonary Disease
DX: R91.1 Solitary pulmonary nodule (principal); J84.116 Cryptogenic organizing pneumonia
CPT/HCPCS: 71250

== ENCOUNTER → 2021-09-12 | Outpatient (CLI) | payer MEDICARE, SELFPAY ==
[2021-09-12 16:02] LABS: Amphetamine Urine VISTA NEGATIVE (<1000 ng/mL); Barbiturate Urine VISTA NEGATIVE (< 200 ng/mL); Benzodiazepine Urine VISTA NEGATIVE (< 200 ng/mL); Cocaine Urine VISTA NEGATIVE (< 300 ng/mL); Ecstacy Urine VISTA POSITIVE (< 500 ng/mL); Methadone Urine VISTA NEGATIVE (< 300 ng/mL); PCP Urine VISTA NEGATIVE (< 25 ng/mL); THC Urine VISTA NEGATIVE (< 50 ng/mL); Vista UDS pH Range 5
== END | disposition home or self-care (01) ==
LOC: LAB 14:52
PROVIDERS: PCP Internal Medicine; Visit Provider Anesthesiology Pain Medicine
DX: F11.20 Opioid dependence, uncomplicated (principal)
CPT/HCPCS: 80307

== ENCOUNTER 2021-10-11 19:11 | Emergency (ER) | payer MEDICARE, SELFPAY ==
[2021-10-11 19:12] VITALS: BP 132/86; PULSE 80; RESP 16; TEMP 36.2; O2SAT 98; BMI 28.8
--- NOTE | 2021-10-11 19:39 | EDS_ITS ---
HPI History of Present Illness Chief Complaint: Cough Informant: patient Onset/Context/Timing Onset: Days (3) Context: Gradual Onset Timing: Continuous Quality: Aching Location: Occiput Worsened by: Nothing Relieved by: Ibuprofen Narrative Narrative: Patient presents for prescription for COVID-19 antibodies. Patient states she tested positive for COVID-19 at home today. Patient states that her symptoms began 3 days ago. Patient states that she developed a headache, cough, sore throat, nausea, and diarrhea. Patient states her symptoms have been waxing and waning. Patient states she had a fever of 101 at home today. Patient states she took ibuprofen which helped with her fever and her headache. Patient denies any vomiting. Patient denies any sputum production. Patient does have a history of pulmonary fibrosis. Patient states that she was told her that if she ever tested positive she should contact her linoleum floor installer, Dr. Chatterjee. She contacted his office today and they referred her to the emergency department. [facility] Medical History (Updated 10/11/21 @ 19:[address] Ethan Sevilla, DO) Fibromyalgia HTN (hypertension) Pulmonary fibrosis Rheumatoid arthritis Home Medications hydrocodone-acetaminophen [Vicodin] 1 tab PO Q4H PRN 10/10/13 [History Last Taken 02/05/15 08:00] bupropion HCl 300 mg PO DAILY 10/30/14 [History Last Taken 01/20/17] duloxetine 60 mg PO DAILY 10/30/14 [History Last Taken 01/20/17] omeprazole 20 mg PO BID 10/30/14 [History Last Taken 01/20/17] zolpidem [Ambien CR] 12.5 mg PO QHS PRN 10/30/14 [History Last Taken 01/20/17] amlodipine 5 mg PO DAILY #30 tablet 08/09/16 [Rx Last Taken 01/20/17] losartan 100 mg PO DAILY #30 tablet 08/09/16 [Rx Last Taken 01/20/17] D3-2000 1,000 mg PO DAILY 01/21/17 [History Last Taken 01/20/17] hydroxychloroquine 200 mg PO BID 01/21/17 [History Last Taken 01/20/17] aspirin 81 mg PO DAILY@0800 tab.chew 01/23/17 [Rx Last Taken Unknown] prednisone [Deltasone] 10 mg PO DAILY 01/19/18 [History Last Taken Unknown] nirmatrelvir-ritonavir [Paxlovid (EUA)] See Rx Instructions .ROUTE .COMPLEX #30 tab 10/11/21 [Rx Last Taken Unknown] Allergy/AdvReac Type Severity Reaction Status Date / Time clarithromycin AdvReac Nausea/Vom/ Verified 04/04/18 18:56 Diarrhea clindamycin AdvReac made me Verified 04/04/18 18:56 deathly sick Surgical History (Updated 10/11/21 @ 19:[address] Ethan Sevilla, DO) History of carpal tunnel surgery History of lung biopsy History of total left hip replacement S/P total knee replacement Social History Smoking Status: Never smoker ROS ROS ED Constitutional Constitutional ED: Reports fever(s); Denies chills Eyes Eyes: Denies blurry vision or change in vision ENT ENT ED: Reports sore throat; Denies rhinorrhea Cardiovascular Cardiovascular: Denies chest pain or palpitations Respiratory/Chest Respiratory/Chest: Reports cough; Denies dyspnea Gastrointestinal Gastrointestinal: Reports diarrhea and nausea; Denies vomiting Genitourinary Genitourinary ED: Denies dysuria or hematuria Musculoskeletal Musculoskeletal: Denies back pain or neck pain Integumentary Denies abscess or rash Neurologic Neurologic: Reports headache(s) and weakness Allergic/Immunologic Allergic/Immunologic ED: Denies mouth swelling or urticaria EXAM Physical Exam Const Vital Signs: 10/11/21 19:12 10/11/21 19:19 Temperature 97.2 F L Temperature Source Temporal Pulse Rate 80 Respiratory Rate 16 Respiratory Depth Normal Respiratory Pattern Normal Blood Pressure 132/86 H Blood Pressure Mean 101 Pulse Ox 98 Oxygen Delivery Method Room Air Positive well nourished and well developed General Appearance ED: well developed and NAD HEENT Reports moist mucous membranes Neck supple and no JVD Resp normal respiratory effort and clear to auscultation bilaterally Cardio regular rate, regular rhythm and no murmurs GI normal to inspection, nondistended, normoactive bowel sounds and non-tender Palpation: soft Extremity normal to inspection General Extremety ED: Negative for edema or tenderness General Extremity: Negative for edema Neuro oriented x3, CN's II-XII intact bilaterally and no sensory deficits noted Sensorium / Orientation: alert Motor Exam: strength 5/5 throughout Psych mental status grossly normal Skin no rashes or lesions noted MDM MDM MDM Narrative Medical decision making narrative: Patient was given prescription for Paxlovid. Patient was instructed to follow-up with her primary care physician and linoleum floor installer in 3 to 5 days. Patient understood and was agreeable with the plan. All questions were answered. Discharge Plan Triage Chief Complaint: Cough ED Provider: Ethan Sevilla Dx/Rx/DC Orders Clinical Impression: COVID-19, Pulmonary fibrosis Instructions: Coronavirus Disease 2019 (COVID-19): Caring for Yourself or Others Prescriptions: New Paxlovid (EUA) 150 mg x 2- 100 mg tablet See Rx Instructions .ROUTE .COMPLEX Qty: 30 RF: 0 No Action hydrocodone-acetaminophen [Vicodin] 1 EACH tablet 1 tab PO Q4H PRN (Reason: Pain) RF: 0 bupropion HCl 150 MG tablet sustained-release 12 hr 300 mg PO DAILY RF: 0 omeprazole 20 MG capsule 20 mg PO BID RF: 0 duloxetine 60 MG capsule 60 mg PO DAILY RF: 0 zolpidem [Ambien CR] 12.5 MG tablet,ext release multiphase 12.5 mg PO QHS PRN (Reason: Sleep) RF: 0 amlodipine 5 MG tablet 5 mg PO DAILY Qty: 30 RF: 0 losartan 100 MG tablet 100 mg PO DAILY Qty: 30 RF: 0 hydroxychloroquine 200 MG tablet 200 mg PO BID RF: 0 D3-2000 Mg 1,000 mg PO DAILY RF: 0 aspirin 81 MG tablet,chewable 81 mg PO DAILY@0800 RF: 0 prednisone [Deltasone] 20 MG tablet 10 mg PO DAILY RF: 0 Primary Care Provider: Mayda Brown Referrals: Mayda Brown MD [Primary Care Provider] - 3-5 Days Pelon Chatterjee MD [STAFF PHYSICIAN] - 3-5 Days Disposition Disposition: Home, Self Care
== END 2021-10-11 19:59 | disposition home or self-care (01) ==
PROVIDERS: Emergency Provider Emergency Medicine; PCP Internal Medicine; Visit Provider Emergency Medicine
DX: U07.1 COVID-19 (principal); M06.9 Rheumatoid arthritis, unspecified; J84.10 Pulmonary fibrosis, unspecified; I10 Essential (primary) hypertension; M79.7 Fibromyalgia; Z79.82 Long term (current) use of aspirin; Z79.52 Long term (current) use of systemic steroids; Z96.642 Presence of left artificial hip joint
CPT/HCPCS: 99281; 99282

== ENCOUNTER → 2021-12-05 | Outpatient (CLI) | payer MEDICARE, SELFPAY ==
[2021-12-05 18:11] LABS: AST(SGOT) 19 U/L (15-37); Alanine Aminotransfer ALT/SGPT 29 U/L (13-56); Albumin, Serum 3.6 g/dL (3.2-5.0); Alkaline Phosphatase 54 U/L (45-117); Bilirubin, Direct 0.12 mg/dL (0.00-0.30); Globulin 3.1 g/dL (2.2-4.2); Protein, Total 6.7 g/dL (6.4-8.2)
== END | disposition home or self-care (01) ==
LOC: MTLAB 15:27
PROVIDERS: PCP Internal Medicine; Referring Provider Internal Medicine Pulmonary Disease; Visit Provider Internal Medicine Pulmonary Disease
DX: Z79.899 Other long term (current) drug therapy (principal)
CPT/HCPCS: 36415; 80076

== ENCOUNTER → 2022-03-03 | Outpatient (CLI) | payer MEDICARE, SELFPAY ==
--- NOTE | 2022-03-03 15:57 | CT_ITS ---
STUDY: CT CHEST WITHOUT CONTRAST REASON FOR EXAM: Female, 61 years old. PULM NODULE RADIATION DOSAGE (If Supplied By Facility): CTDIvol = ( 12.36 ) mGy, DLP = ( 396.56 ) mGycm TECHNIQUE: Transaxial imaging was performed without the administration of intravenous contrast material. Multiplanar coronal and sagittal images were reformatted. Individualized dose optimization techniques were used for this CT. COMPARISON: Comparison is made with prior study dated 09/09/2021. FINDINGS: CHEST There is a 1.4 cm irregular area of groundglass appearance in the lateral aspect of the right upper lobe with areas of bronchiectasis within the nodule. This is unchanged. Stable scarring in the posterior aspect of the right upper lobe adjacent to the right minor fissure. Stable tiny calcified granuloma in the right middle lobe. Mild scarring in the posterobasal segment of the left lower lobe. There is no demonstrated pleural abnormality. Normal heart and pericardium. Normal mediastinum. Normal hilar regions. Normal unenhanced pulmonary arteries. Normal aorta arch and descending thoracic aorta. There are multi-level degenerative changes of the thoracic spine. Findings suggestive of a 1.6 cm hypodensity in the posterior aspect of the right lobe of the liver superiorly. CT/Chest without Contrast IMPRESSION: Stable examination. Electronically Signed: Aguilar Joaquin MD at 11:24 EDT ,
== END | disposition home or self-care (01) ==
LOC: CT 15:56
PROVIDERS: PCP Internal Medicine; Referring Provider Internal Medicine Pulmonary Disease; Visit Provider Internal Medicine Pulmonary Disease
DX: R91.1 Solitary pulmonary nodule (principal)
CPT/HCPCS: 71250

== ENCOUNTER → 2022-07-23 | Outpatient (CLI) | payer MEDICARE, SELFPAY ==
[2022-07-23 18:45] LABS: Amphetamine Urine VISTA NEGATIVE (<1000 ng/mL); Barbiturate Urine VISTA NEGATIVE (< 200 ng/mL); Benzodiazepine Urine VISTA NEGATIVE (< 200 ng/mL); Cocaine Urine VISTA NEGATIVE (< 300 ng/mL); Ecstacy Urine VISTA POSITIVE (< 500 ng/mL); Methadone Urine VISTA NEGATIVE (< 300 ng/mL); PCP Urine VISTA NEGATIVE (< 25 ng/mL); THC Urine VISTA NEGATIVE (< 50 ng/mL); Vista UDS pH Range 5
== END | disposition home or self-care (01) ==
LOC: LABSPEC 17:18 → LAB 07-24 07:06
PROVIDERS: PCP Internal Medicine; Visit Provider Anesthesiology Pain Medicine
DX: F11.20 Opioid dependence, uncomplicated (principal)
CPT/HCPCS: 80307

== ENCOUNTER → 2022-10-14 | Outpatient (CLI) | payer MEDICARE, SELFPAY ==
[2022-10-14 17:36] LABS: Hematocrit 41.5 % (37-47); Mean Corp Hgb Conc 33.7 g/dL (32-36); Mean Corpuscular Hgb 33.7 pg (27.0-32.0); Mean Corpuscular Volume 99.8 fL (81-99); Mean Platelet Vol. 9.9 fl (6.2-12.0); Platelet Count 300 K/mm3 (150-450); RBC Distribution Width CV 13.6 % (11.6-14.6); RBC Distribution Width SD 50.3 fl (35.1-43.9); Red Blood Count 4.16 M/mm3 (4.2-5.4); White Blood Count 5.6 K/mm3 (4.4-11.0)
[2022-10-14 18:01] LABS: AST(SGOT) 21 U/L (15-37); Alanine Aminotransfer ALT/SGPT 27 U/L (13-56); Albumin, Serum 3.8 g/dL (3.2-5.0); Alkaline Phosphatase 55 U/L (45-117); Bilirubin, Direct 0.14 mg/dL (0.00-0.30); Globulin 3.2 g/dL (2.2-4.2)
== END | disposition home or self-care (01) ==
PROVIDERS: PCP Internal Medicine; Referring Provider Internal Medicine Pulmonary Disease; Visit Provider Internal Medicine Pulmonary Disease
DX: J84.116 Cryptogenic organizing pneumonia (principal)
CPT/HCPCS: 36415; 80076; 85027

== ENCOUNTER → 2023-04-07 | Outpatient (CLI) | payer MEDICARE, SELFPAY ==
--- NOTE | 2023-04-07 17:59 | CT_ITS ---
INDICATION: lung nodule EXAMINATION: CT CHEST WITHOUT CONTRAST - CT Chest W/O Contrast Injection TECHNIQUE: Helically acquired images were obtained of the chest. A radiation dose optimization technique was used for this scan. IV Contrast dosage and agent: None. RADIATION DOSAGE (If Supplied By Facility): CTDIvol = ( 11.60 ) mGy, DLP = ( 411.52 ) mGycm COMPARISON: March 03, 2022 FINDINGS: LUNGS, PLEURA AND LARGE AIRWAYS: Bilateral relatively stable patchy areas of infiltrates/groundglass densities. Stable pulmonary granulomatous nodules. No pleural effusion or thickening. No pneumothorax. THYROID: No thyroid lesions. HEART AND PERICARDIUM: Heart size is normal. No pericardial effusion. CORONARY ARTERIES: Coronary artery calcification VESSELS: Thoracic aorta is not dilated. MEDIASTINUM AND YUAN: No mediastinal or hilar adenopathy. Esophagus is unremarkable. No hiatal hernia. UPPER ABDOMEN: Atrophic right kidney with scarring. BONES: Degenerative vertebral changes. Mild scoliosis. CT/Chest without Contrast IMPRESSION: Stable patchy infiltrate/ground glass densities in the lungs. Stable granulomatous nodules.. Electronically Signed: Nahid Jaramillo DO at 23:54 EST ,
== END | disposition home or self-care (01) ==
LOC: CT 17:57
PROVIDERS: PCP Internal Medicine; Referring Provider Internal Medicine Pulmonary Disease; Visit Provider Internal Medicine Pulmonary Disease
DX: R91.1 Solitary pulmonary nodule (principal)
CPT/HCPCS: 71250

== ENCOUNTER → 2023-05-11 | Outpatient (CLI) | payer MEDICARE, SELFPAY ==
[2023-05-11 17:43] LABS: Hemoglobin 13.6 g/dL (12.0-15.0); Mean Corp Hgb Conc 32.4 g/dL (32-36); Mean Corpuscular Hgb 32.3 pg (27.0-32.0); Mean Corpuscular Volume 99.8 fL (81-99); Mean Platelet Vol. 9.9 fl (6.2-12.0); Platelet Count 302 K/mm3 (150-450); RBC Distribution Width CV 13.4 % (11.6-14.6); RBC Distribution Width SD 49.1 fl (35.1-43.9); Red Blood Count 4.21 M/mm3 (4.2-5.4); White Blood Count 6.4 K/mm3 (4.4-11.0)
[2023-05-11 17:54] LABS: AST(SGOT) 18 U/L (15-37); Alanine Aminotransfer ALT/SGPT 20 U/L (13-56); Albumin, Serum 3.8 g/dL (3.2-5.0); Alkaline Phosphatase 52 U/L (45-117); Bilirubin, Direct 0.07 mg/dL (0.00-0.30); Globulin 3.2 g/dL (2.2-4.2)
== END | disposition home or self-care (01) ==
PROVIDERS: PCP Internal Medicine; Referring Provider Internal Medicine Pulmonary Disease; Visit Provider Internal Medicine Pulmonary Disease
DX: J84.116 Cryptogenic organizing pneumonia (principal)
CPT/HCPCS: 36415; 80076; 85027

== ENCOUNTER → 2023-05-13 | Outpatient (CLI) | payer MEDICARE, SELFPAY ==
--- NOTE | 2023-05-13 17:13 | RAD_ITS ---
STUDY: X-RAY - PELVIS AND RIGHT HIP REASON FOR EXAM: Female, 62 years old. PAIN TECHNIQUE: 3 views of the pelvis and hip. COMPARISON: 11/03/2017. FINDINGS: There is a non-specific bowel gas pattern. Normal visualized soft tissue structures. There are multiple calcified phleboliths. There is narrowing with cortical sclerosis and osteophyte formation of the sacroiliac joint consistent with minimal degenerative osteoarthritic changes. Degenerative disease of the lower lumbar spine. Normal bilateral superior and inferior pubic rami. There are mild degenerative changes of the pubic symphysis with articular narrowing and sclerosis. Normal bilateral ischial tuberosities. Normal visualized right femoral head. There is minimal osteoarthritic spur formation of the acetabular rim. There is mild articular joint space narrowing of the hip. There is a left-sided hip prosthesis in place. RAD/HIP, UNI W/ Pelvis 2-3 Views IMPRESSION: Mild degenerative disease of the right hip, otherwise no acute fracture or subluxation. Electronically Signed: Peggy Hsieh MD at 17:25 EST ,
== END | disposition home or self-care (01) ==
LOC: RAD 17:06
PROVIDERS: PCP Internal Medicine; Referring Provider Anesthesiology Pain Medicine; Visit Provider Anesthesiology Pain Medicine
DX: M16.11 Unilateral primary osteoarthritis, right hip (principal)
CPT/HCPCS: 73502

== ENCOUNTER → 2023-10-07 | Outpatient (CLI) | payer MEDICARE, SELFPAY ==
--- NOTE | 2023-10-07 16:26 | RAD_ITS ---
EXAM: XR LUMBOSACRAL SPINE, 2 OR 3 VIEWS CLINICAL INDICATION: DDD TECHNIQUE: Frontal and lateral views of the lumbar spine and sacrum. COMPARISON: No relevant prior studies available. FINDINGS: VERTEBRAE: There is curvature of the lumbar spine. There is bony neural foraminal narrowing at L4-5 and L5-S1. Preserved vertebral body height. No fracture. No spondylolisthesis. No significant facet arthropathy. DISC SPACES: There is disc space narrowing at L4-5 and L5-S1. GASTROINTESTINAL TRACT: Unremarkable as visualized. Included bowel gas pattern is non-obstructive. RAD/Lumbar Spine 2 or 3 Views IMPRESSION: Moderate to severe changes with disc space narrowing and bony neural foraminal narrowing the lower lumbar spine. There are no acute osseous abnormalities. Electronically Signed: Dean Campos MD at 19:41 EDT ,
== END | disposition home or self-care (01) ==
LOC: RAD 16:21
PROVIDERS: PCP Internal Medicine; Referring Provider Anesthesiology Pain Medicine; Visit Provider Anesthesiology Pain Medicine
DX: M51.36 Other intervertebral disc degeneration, lumbar region (principal)
CPT/HCPCS: 72100

== ENCOUNTER → 2024-03-21 | Outpatient (CLI) | payer MEDICARE, SELFPAY ==
[2024-03-21 17:50] LABS: Hematocrit 39.1 % (37-47); Hemoglobin 13.2 g/dL (12.0-15.0); Mean Corp Hgb Conc 33.8 g/dL (32-36); Mean Corpuscular Hgb 32.9 pg (27.0-32.0); Mean Corpuscular Volume 97.5 fL (81-99); Mean Platelet Vol. 10.2 fl (6.2-12.0); Platelet Count 287 K/mm3 (150-450); RBC Distribution Width CV 13.8 % (11.6-14.6); RBC Distribution Width SD 49.3 fl (35.1-43.9); Red Blood Count 4.01 M/mm3 (4.2-5.4); White Blood Count 5.8 K/mm3 (4.4-11.0)
[2024-03-21 18:03] LABS: AST(SGOT) 16 U/L (15-37); Alanine Aminotransfer ALT/SGPT 21 U/L (13-56); Albumin, Serum 3.7 g/dL (3.2-5.0); Alkaline Phosphatase 54 U/L (45-117); Bilirubin, Direct 0.13 mg/dL (0.00-0.30); Globulin 2.9 g/dL (2.2-4.2); Protein, Total 6.6 g/dL (6.4-8.2)
== END | disposition home or self-care (01) ==
PROVIDERS: PCP Internal Medicine; Referring Provider Internal Medicine Pulmonary Disease; Visit Provider Internal Medicine Pulmonary Disease
DX: R05.9 Cough, unspecified (principal); R06.02 Shortness of breath
CPT/HCPCS: 36415; 80076; 85027

== ENCOUNTER → 2024-04-11 | Outpatient (CLI) | payer MEDICARE, SELFPAY ==
--- NOTE | 2024-04-10 11:12 | MRI_ITS ---
STUDY: MRI ORBITS WITH AND WITHOUT CONTRAST REASON FOR EXAM: Female, 63 years old. LT EYE PAIN, OPTIC NEURITIS, ORBITAL INFLAMMATION TECHNIQUE: Standardized fat and water weighted pulse sequences were obtained in all 3 orthogonal planes, pre-and post contrast administration. IV 14ml clariscan was administered for the contrast portion of the examination. COMPARISON: None. FINDINGS: Normal bilateral globes. Normal bilateral optic nerve sheath complexes and optic nerves. Normal bilateral intraconal and extraconal spaces. Normal bilateral extraocular muscles. Postsurgical changes status post cataract extraction and lens replacement Normal optic chiasm and post-chiasmatic tracts. Normal sella turcica, pituitary gland, infundibular stalk, and hypothalamus. Normal bilateral cavernous sinuses. Normal tectal plate and pineal gland. Normal flow voids within the major intracranial circulation suggesting patency by spin echo criteria. Normal size of the ventricles and extra-axial spaces for the patient''s age. Subtle nonspecific increased signal intensity within the left parietal lobe likely due to chronic ischemic changes or other nonspecific brain injury Normal bilateral basal ganglia. Normal thalami. There is no extra-axial fluid accumulation. Normal midbrain, trey and medulla. Normal cerebellum. Normal basal cisterns. MRI/Orbit Face Neck W/WO Contrast IMPRESSION: Minor nonspecific gliosis in left parietal lobe. Postsurgical change status post bilateral intraocular lens replacement Otherwise unremarkable enhanced and unenhanced MRI of the brain and orbits Electronically Signed: Nabeel Bernabe MD at 16:23 EST ,
[2024-04-10 13:34] LABS: CREATININE FINGERSTICK < 1.0 mg/dL (0.55-1.02); EGFR FINGERSTICK > 60.0000 mL/min (>60)
== END | disposition home or self-care (01) ==
LOC: MRI 13:22
PROVIDERS: PCP Internal Medicine; Referring Provider Ophthalmology; Visit Provider Ophthalmology
DX: H57.12 Ocular pain, left eye (principal)
CPT/HCPCS: 70543; A9575

== ENCOUNTER → 2024-06-29 | Outpatient (CLI) | payer MEDICARE, SELFPAY ==
[2024-06-29 17:49] LABS: Hematocrit 40.7 % (37-47); Hemoglobin 13.5 g/dL (12.0-15.0); Mean Corp Hgb Conc 33.2 g/dL (32-36); Mean Corpuscular Volume 99.5 fL (81-99); Mean Platelet Vol. 9.7 fl (6.2-12.0); Platelet Count 287 K/mm3 (150-450); RBC Distribution Width CV 13.9 % (11.6-14.6); RBC Distribution Width SD 50.9 fl (35.1-43.9); Red Blood Count 4.09 M/mm3 (4.2-5.4); White Blood Count 5.3 K/mm3 (4.4-11.0)
[2024-06-29 19:03] LABS: AST(SGOT) 23 U/L (<=31); Alanine Aminotransfer ALT/SGPT 18 U/L (<=34); Albumin, Serum 4.3 g/dL (3.4-4.8); Alkaline Phosphatase 57 U/L (35-104); Bilirubin, Direct 0.18 mg/dL (0.00-0.30); Globulin 2.3 g/dL (2.2-4.2); Protein, Total 6.7 g/dL (5.9-8.4); Total Bilirubin 0.38 mg/dL (0.00-1.30)
== END | disposition home or self-care (01) ==
PROVIDERS: PCP Internal Medicine; Referring Provider Internal Medicine Pulmonary Disease; Visit Provider Internal Medicine Pulmonary Disease
DX: R05.9 Cough, unspecified (principal); R06.02 Shortness of breath
CPT/HCPCS: 36415; 80076; 85027

== ENCOUNTER → 2024-09-01 | Outpatient (CLI) | payer MEDICARE, SELFPAY ==
[2024-09-01 21:27] LABS: Amphetamine Urine NEGATIVE (<1000 ng/mL); Barbiturate Urine NEGATIVE (< 200 ng/mL); Benzodiazepine Urine NEGATIVE (< 200 ng/mL); Buprenorphine Urine NEGATIVE (< 200 ng/mL); Cocaine Urine NEGATIVE (< 300 ng/mL); Fentanyl, Urine NEGATIVE; Methadone Urine NEGATIVE (< 300 ng/mL); Opiates Urine NEGATIVE (< 300 ng/mL); Oxycodone, Urine PRESUMPTIVE POSITIVE (< 100 ng/mL); PCP Urine NEGATIVE (< 25 ng/mL); THC Urine NEGATIVE (< 50 ng/mL)
== END | disposition home or self-care (01) ==
PROVIDERS: PCP Internal Medicine; Referring Provider Anesthesiology Pain Medicine; Visit Provider Anesthesiology Pain Medicine
DX: F11.20 Opioid dependence, uncomplicated (principal)
CPT/HCPCS: 80307

== ENCOUNTER → 2024-10-27 | Outpatient (CLI) | payer MEDICARE, SELFPAY ==
[2024-10-27 17:44] LABS: Absolute Lymphocyte Count 1.03 X10^3/uL (0.83-4.51); Absolute Neutrophil Count 3.4 X10^3/uL (2.0-7.7); Basophil# 0.03 X10^3/uL; Basophil% 0.6 % (0-1); Eosinophil# 0.17 X10^3/uL; Eosinophils% 3.1 % (0-5); Hematocrit 40.5 % (37-47); Hemoglobin 13.8 g/dL (12.0-15.0); Lymphocyte # 1.03 X10^3/ul (0.83-4.51); Lymphocyte % 19.1 % (19-41); Mean Corp Hgb Conc 34.1 g/dL (32-36); Mean Corpuscular Hgb 33.9 pg (27.0-32.0); Mean Corpuscular Volume 99.5 fL (81-99); Mean Platelet Vol. 9.9 fl (6.2-12.0); Monocyte# 0.71 X10^3/uL; Monocyte% 13.1 % (0-10); NRBC Flagged by Analyzer 0 % (0-5); Neutrophil # 3.44 X10^3/uL (2.7-7.7); Neutrophil % 63.7 % (47-70); Platelet Count 311 K/mm3 (150-450); RBC Distribution Width CV 14.4 % (11.6-14.6); RBC Distribution Width SD 52.9 fl (35.1-43.9); Red Blood Count 4.07 M/mm3 (4.2-5.4); White Blood Count 5.4 K/mm3 (4.4-11.0)
== END | disposition home or self-care (01) ==
LOC: MTLAB 16:25
PROVIDERS: PCP Internal Medicine; Referring Provider Internal Medicine Rheumatology; Visit Provider Internal Medicine Rheumatology
DX: D72.819 Decreased white blood cell count, unspecified (principal)
CPT/HCPCS: 36415; 85025

== ENCOUNTER → 2024-12-30 | Outpatient (CLI) | payer MEDICARE, SELFPAY ==
[2024-12-30 17:45] LABS: Hematocrit 40.0 % (37-47); Hemoglobin 13.5 g/dL (12.0-15.0); Mean Corp Hgb Conc 33.8 g/dL (32-36); Mean Corpuscular Volume 100.5 fL (81-99); Mean Platelet Vol. 10.3 fl (6.2-12.0); Platelet Count 284 K/mm3 (150-450); RBC Distribution Width CV 13.5 % (11.6-14.6); RBC Distribution Width SD 50.2 fl (35.1-43.9); Red Blood Count 3.98 M/mm3 (4.2-5.4); White Blood Count 4.7 K/mm3 (4.4-11.0)
[2024-12-30 18:24] LABS: AST(SGOT) 23 U/L (<=31); Alanine Aminotransfer ALT/SGPT 17 U/L (<=34); Albumin, Serum 4.3 g/dL (3.4-4.8); Alkaline Phosphatase 59 U/L (35-104); Bilirubin, Direct 0.13 mg/dL (0.00-0.30); Globulin 2.5 g/dL (2.2-4.2)
== END | disposition home or self-care (01) ==
LOC: LAB 15:33 → MTLAB 15:34
PROVIDERS: PCP Internal Medicine; Referring Provider Internal Medicine Pulmonary Disease; Visit Provider Internal Medicine Pulmonary Disease
DX: R05.9 Cough, unspecified (principal); R06.02 Shortness of breath
CPT/HCPCS: 36415; 80076; 85027

== ENCOUNTER → 2025-01-18 | Outpatient (CLI) | payer MEDICARE, SELFPAY ==
[2025-01-18 20:59] LABS: Barbiturate Urine NEGATIVE (< 200 ng/mL); Benzodiazepine Urine NEGATIVE (< 200 ng/mL); PCP Urine NEGATIVE (< 25 ng/mL); THC Urine NEGATIVE (< 50 ng/mL)
== END | disposition home or self-care (01) ==
LOC: LAB 16:39
PROVIDERS: PCP Internal Medicine; Referring Provider Anesthesiology Pain Medicine; Visit Provider Anesthesiology Pain Medicine
DX: F11.20 Opioid dependence, uncomplicated (principal)
CPT/HCPCS: 80307